=== PATIENT | female | born 1960 | race Hispanic/Latino ===

== ENCOUNTER 2016-08-20 15:08 | Inpatient (IN) | payer MEDICAID ==
[2016-08-20 15:16] VITALS: BMI 23.3
[2016-08-20] MEDS: Albuterol-Ipratrop 3 mg / 0.5 (3 ml) UD IH SCH ×3 (16:03→16:45)
--- NOTE | 2016-08-20 16:07 | ED PDOC ---
Arrival/HPI - General Chief Complaint: Abdominal Pain Time Seen by Provider: 08/20/16 15:24 Historian: Patient, Family - History of Present Illness Narrative History of Present Illness (Text): 08/20/16 16:04 55 yo female, h/o DM, Asthma/COPD, Breast CA (last chemo 4 months ago, refuses chemo) presents to the ED c/o cough with shortness of breathe, vomiting, diarrhea and abdominal pain x 5 days. Shortness of breathe with wheezing. Tactile fever. She's been vomiting 5-6 times daily; nonbloody, nonbilious. Diarrhea 2 times daily. Abdominal pain is diffuse but more upper. It feels bloating and crampy. +nasal congestion. +seasonal allergies. She feels weak. No recent travel or sick contacts. PMD: Dr. Sosa Oncologist: Doesn't know name 08/20/16 16:07 Past Medical History - Provider Review Nursing Documentation Reviewed: Yes - Infectious Disease Hx of Infectious Diseases: None - Tetanus Immunization Tetanus Immunization: Unknown - Cardiac Hx Cardiac Disorders: Yes Hx Hypertension: Yes - Pulmonary Hx Respiratory Disorders: Yes Hx Chronic Obstructive Pulmonary Disease (COPD): Yes - Neurological Hx Neurological Disorder: No - HEENT Hx HEENT Disorder: No - Renal Hx Renal Disorder: No (HYDRONEPHROSIS) - Endocrine/Metabolic Hx Endocrine Disorders: Yes Hx Diabetes Mellitus Type 2: Yes - Hematological/Oncological Hx Blood Disorders: Yes Hx Cancer: Yes (breast cancer) Hx Chemotherapy: Yes - Integumentary Hx Dermatological Disorder: No - Musculoskeletal/Rheumatological Hx Musculoskeletal Disorders: Yes Hx Arthritis: Yes - Gastrointestinal Hx Gastrointestinal Disorders: Yes Hx Gastroesophageal Reflux: Yes - Genitourinary/Gynecological Hx Genitourinary Disorders: Yes (PELVIC MASS) Hx Urinary Tract Infection: Yes - Psychiatric Hx Psychophysiologic Disorder: Yes Hx Anxiety: Yes Hx Substance Use: No - Past Surgical History Past Surgical History: Non-Contributing - Surgical History Hx Section: Yes - Anesthesia Hx Anesthesia Reactions: No Hx Malignant Hyperthermia: No - Suicidal Assessment Feels Threatened In Home Enviroment: No Family/Social History - Physician Review Nursing Documentation Reviewed: Yes Family/Social History: No Known Family HX Smoking Status: Heavy Smoker > 10 Cigarettes Daily Hx Alcohol Use: No Hx Substance Use: No Hx Substance Use Treatment: No Allergies/Home Meds Allergies/Adverse Reactions: Allergies levofloxacin [From Levaquin] Allergy (Verified 08/20/16 15:16) SHORTNESS OF BREATH;PARANOID nystatin Allergy (Verified 08/20/16 15:16) SWELLING Home Medications: Home Meds Medication Instructions Recorded Confirmed Montelukast [Singulair] 10 mg PO DAILY 04/16/12 10/30/15 Omeprazole 40 mg PO DAILY 09/17/15 10/30/15 Review of Systems - Physician Review All systems were reviewed & negative as marked: Yes - Review of Systems Constitutional: Fatigue Eyes: Normal ENT: Normal Respiratory: SOB, Cough, Sputum, Wheezing Cardiovascular: Normal Gastrointestinal: Abdominal Pain, Diarrhea, Nausea, Vomiting Genitourinary Female: Normal Musculoskeletal: Normal Skin: Normal Neurological: Normal Endocrine: Normal Hemo/Lymphatic: Normal Psychiatric: Normal Physical Exam Vital Signs Reviewed: Yes Vital Signs Temp Pulse Resp BP Pulse Ox 08/20/16 17:28 99 H 19 125/64 96 08/20/16 15:21 98.9 F 100 H 18 164/119 H 91 L Temperature: Afebrile Blood Pressure: Hypertensive Pulse: Tachycardic Respiratory Rate: Tachypneic Appearance: Positive for: Non-Toxic, Comfortable, Ill-Appearing Pain Distress: None Mental Status: Positive for: Alert and Oriented X 3 - Systems Exam Head: Present: Atraumatic, Normocephalic Pupils: Present: PERRL Extroacular Muscles: Present: EOMI Conjunctiva: Present: Normal Mouth: Present: Dry Pharnyx: Present: Normal. No: ERYTHEMA, EXUDATE Nose (Internal): Present: Normal Inspection Neck: Present: Normal Range of Motion Respiratory/Chest: Present: Good Air Exchange, Wheezes, Rhonchi (L>R). No: Respiratory Distress, Accessory Muscle Use Cardiovascular: Present: Normal S1, S2, Tachycardic. No: Murmurs Abdomen: Present: Normal Bowel Sounds. No: Tenderness, Distention, Peritoneal Signs Back: Present: Normal Inspection Upper Extremity: Present: Normal Inspection, Normal ROM, NORMAL PULSES, Neurovascularly Intact. No: Cyanosis, Edema Lower Extremity: Present: Normal Inspection, NORMAL PULSES, Normal ROM, Neurovascularly Intact. No: Edema, Swelling Neurological: Present: GCS=15, CN II-XII Intact, Speech Normal Skin: Present: Warm, Dry, Normal Color. No: Rashes Psychiatric: Present: Alert, Oriented x 3, Normal Insight, Normal Concentration Medical Decision Making ED Course and Treatment: 08/20/16 16:11 55 yo female with h/o COPD/Asthma, DM, Breast CA with SOB, cough, abdominal pain , n/v/d DDx: COPD exaceration r/o PNA, Abdominal pain r/o obstruction r/o gastroenteritis -- Labs -- CXR, EKG -- Solumedrol, Duonebs -- Pepcid IV -- IVF -- Abd/pelv with po/iv r/o mass/obstruction 08/20/16 16:13 Patient is anxious and really needs a nicotine patch. Ordered Xanax and a patch. 08/20/16 18:47 Case was discussed with Dr. Sosa who agrees with plan for admission. CXR shows right pleural effusion no change from previous CXR. CT abd pelv complete. Pending CT results and Urinalysis results. Signed out to Dr. Blankenship to f/u CT. - Lab Interpretations Lab Results: 08/20/16 15:40 08/20/16 15:40 Lab Results 08/20/16 15:40: Sodium 141, Chloride 96 L, Potassium 3.4 L, Carbon Dioxide 31, Anion Gap 17, BUN 56 H, Creatinine 1.7 H, Est GFR ( Amer) 38, Est GFR ( Non-Af Amer) 31, Random Glucose 166 H, Calcium 9.6, Total Bilirubin 0.6, AST 16 , ALT 23, Alkaline Phosphatase 99, Lactate Dehydrogenase 349, Total Creatine Kinase 40, Troponin I < 0.01, NT-Pro-B Natriuret Pep 779 H, Total Protein 8.0, Albumin 4.5, Globulin 3.5, Albumin/Globulin Ratio 1.3 08/20/16 15:40: PT 12.4 H, INR 1.15 H, APTT 29.1 08/20/16 15:40: WBC 21.7 H D, RBC 5.11, Hgb 15.6, Hct 44.9, MCV 87.9, MCH 30.5, MCHC 34.7, RDW 14.6 H, Plt Count 324, MPV 10.9, Neutrophils % (Manual) 79 H, Band Neutrophils % 4 H, Lymphocytes % (Manual) 12 L, Atypical Lymphs % 1 H, Monocytes % (Manual) 4 08/20/16 15:34: pO2 49, VBG pH 7.42, VBG pCO2 54.0, VBG HCO3 35.0 H, VBG Total CO2 36.7 H, VBG O2 Sat (Calc) 88.4 H, VBG Base Excess 8.7 H, VBG Potassium 3.6, Sodium 141.0, Chloride 98.0, Glucose 171 H, Lactate 1.1, FiO2 21.0, Venous Blood Potassium 3.6 I have reviewed the lab results: Yes Interpretation: Abnormal lab values (WBC elevated) - RAD Interpretation Radiology Orders: 08/20/16 15:34 CHEST PORTABLE [RAD] Stat 08/20/16 15:35 ABD & PELVIS W/O PO OR IV CONT [CT] Stat Sweet Dough Mixer: ED Physician - EKG Interpretation Interpreted by ED Physician: Yes (NSR at 98 bpm with IRBBB, no ST elevations) Type: 12 lead EKG - Medication Orders Current Medication Orders: Sodium Chloride (Sodium Chloride 0.9%) 1,000 mls @ 100 mls/hr IV .Q10H LUCIANO Last Admin: 08/20/16 16:18 Dose: 100 mls/hr Discontinued Medications Albuterol/Ipratropium (Duoneb 3 Mg/0.5 Mg (3 Ml) Ud) 3 ml IH Q15M LUCIANO Stop: 08/20/16 16:16 Last Admin: 08/20/16 16:45 Dose: 3 ml Alprazolam (Xanax) 0.5 mg PO STAT STA PRN Reason: Protocol Stop: 08/20/16 16:08 Last Admin: 08/20/16 16:18 Dose: 0.5 mg Famotidine (Pepcid 20mg/50ml Premix) 20 mg in 50 mls @ 100 mls/hr IVPB STAT STA Stop: 08/20/16 16:41 Last Admin: 08/20/16 16:21 Dose: 100 mls/hr Vancomycin HCl (Vancomycin 1gm) 1 gm in 250 mls @ 167 mls/hr IVPB STAT STA PRN Reason: Protocol Stop: 08/20/16 18:08 Last Admin: 08/20/16 17:15 Dose: 167 mls/hr Piperacillin Sod/Tazobactam Sod (Zosyn 4.5 Gm In Ns 100ml) 4.5 gm in 100 mls @ 200 mls/hr IVPB STAT STA PRN Reason: Protocol Stop: 08/20/16 17:08 Last Admin: 08/20/16 16:48 Dose: 200 mls/hr Methylprednisolone (Solu-Medrol) 125 mg IVP STAT STA Stop: 08/20/16 15:35 Last Admin: 08/20/16 16:03 Dose: 125 mg Nicotine (Nicoderm Cq) 1 patch TD STAT STA Stop: 08/20/16 16:07 Last Admin: 08/20/16 16:20 Dose: 1 patch Ondansetron HCl (Zofran Inj) Confirm Administered Dose 4 mg .ROUTE .STK-MED ONE Stop: 08/20/16 16:28 Last Admin: 08/20/16 16:36 Dose: Ondansetron HCl (Zofran Inj) 4 mg IVP STAT STA Stop: 08/20/16 16:32 Last Admin: 08/20/16 16:35 Dose: 4 mg Potassium Chloride (K-Dur 20 Meq Er Tab) 40 meq PO STAT STA Stop: 08/20/16 16:41 Last Admin: 08/20/16 16:48 Dose: 20 meq Comments: pt only could swallow one pill. Potassium Chloride (Potassium Chloride Oral Soln) 20 meq PO STAT STA Stop: 08/20/16 17:06 Last Admin: 08/20/16 17:16 Dose: 20 meq Disposition/Present on Arrival - Present on Arrival Any Indicators Present on Arrival: No History of DVT/PE: No History of Uncontrolled Diabetes: No Urinary Catheter: No History of Decub. Ulcer: No History Surgical Site Infection Following: None - Disposition Have Diagnosis and Disposition been Completed?: Yes Diagnosis: COPD (chronic obstructive pulmonary disease), Sepsis Disposition: HOSPITALIZED Disposition Time: 18:02 Patient Plan: Admission Patient Problems: Current Active Problems Problem Status Onset COPD (chronic obstructive pulmonary disease) Acute Sepsis Acute Condition: FAIR
[2016-08-20] MEDS ORDERED: Famotidine 20mg/50ml 20 MG/50 ML BAG IVPB STA (16:12)
[2016-08-20] MEDS ORDERED: Sodium Chloride 0.9% 1,000 ML IV SCH (16:15)
[2016-08-20 16:19] LABS: HEMATOCRIT 44.9 % (36.0-48.0); MEAN CELL VOLUME 87.9 fL (80.0-105.0); MEAN CORPUSCULAR HEMOGLOBIN 30.5 pg (25.0-35.0); MEAN CORPUSCULAR HGB CONC 34.7 g/dl (31.0-37.0); MEAN PLATELET VOLUME 10.9 fl (7.0-11.0); PLATELET COUNT 324 10^3/uL (120.0-450.0); RED CELL DISTRIBUTION WIDTH 14.6 % (11.5-14.5); WHITE BLOOD COUNT 21.7 10^3/ul (4.5-11.0)
[2016-08-20 16:23] LABS: ADD MANUAL DIFF? YES
[2016-08-20 16:26] LABS: VENOUS BLOOD GAS BASE EXCESS 8.7 mmol/L (0.0-2.0); VENOUS BLOOD PH 7.42 (7.32-7.43)
[2016-08-20 16:29] LABS: ALB/GLOB RATIO 1.3 (1.1-1.8); ALKALINE PHOSPHATASE 99 U/L (38-133); ALT/SGPT 23 U/L (7-56); AST/SGOT 16 U/L (15-39); BILIRUBIN,TOTAL 0.6 mg/dL (0.2-1.3); BLOOD UREA NITROGEN 56 mg/dL (7-21); CALCIUM 9.6 mg/dL (8.4-10.5); CARBON DIOXIDE 31 mmol/L (21-33); CHLORIDE 96 mmol/L (98-107); GFR AFRICAN-AMERICAN 38; GLUCOSE,RANDOM 166 mg/dL (70-110); POTASSIUM 3.4 mmol/L (3.6-5.0); SODIUM 141 mmol/L (132-148)
[2016-08-20 16:36] LABS: INR 1.15 (0.93-1.08); PARTIAL THROMBOPLASTIN TIME 29.1 Seconds (23.7-30.8)
[2016-08-20] MEDS ORDERED: Vancomycin 1gm in NS 250ml 1 GM/250 ML BAG IVPB STA (16:39)
[2016-08-20] MEDS ORDERED: Piperacill/Tazo 4.5gm in NS 4.5 GM/100 ML BAG IVPB STA (16:39)
[2016-08-20 16:40] LABS: TROPONIN I < 0.01 ng/mL
[2016-08-20] MEDS: Potassium Chloride 20 mEq ER Tab PO STA (16:48)
[2016-08-20 16:59] LABS: ATYPICAL LYMPHOCYTE 1 % (0.0-0.0); BAND 4 % (0-2); NEUTROPHIL 79 % (50.0-70.0)
[2016-08-20] MEDS ORDERED: Potassium Chloride 20 mEq/15 ml LIQ UD PO STA (17:05)
[2016-08-20 18:58] LABS: URINE BILIRUBIN NEGATIVE (NEGATIVE); URINE BLOOD LARGE (NEGATIVE); URINE GLUCOSE (UA) NEGATIVE (NEGATIVE); URINE KETONE NEGATIVE (NEGATIVE); URINE LEUKOCYTE ESTERASE SMALL Leu/uL (NEGATIVE); URINE PROTEIN 100 mg/dL (<30 mg/dL); URINE UROBILINOGEN 0.2 E.U./dL (<1 E.U./dL)
[2016-08-20 19:06] LABS: URINE APPEARANCE SL CLOUDY (CLEAR); URINE COLOR YELLOW (YELLOW)
[2016-08-20] MEDS ORDERED: Albuterol-Ipratrop 3 mg / 0.5 (3 ml) UD IH PRN (19:07)
--- NOTE | 2016-08-20 19:11 | ED PDOC ---
Physical Exam Vital Signs Temp Pulse Resp BP Pulse Ox 08/20/16 17:28 99 H 19 125/64 96 08/20/16 15:21 98.9 F 100 H 18 164/119 H 91 L Medical Decision Making ED Course and Treatment: 08/20/16 19:00 Case endorsed to me by Dr. Montesinos to follow up CT read. 55 year old female presented for cough with shortness of breath, vomiting, diarrhea and abdominal pain x 5 days. Patient was accepted for admission. EXAM: CT Abdomen and Pelvis Without Intravenous Contrast CLINICAL HISTORY: 55 years old, female; Pain; Abdominal pain; Additional info: Abd pain R/O mass R /O obstruction FINDINGS: Lower thorax: There are no prior studies for comparison. There is right-sided volume loss. There is shift of cardiomediastinal structures to the right. There is right pleural thickening/effusion. There is scarring at the right base. There is partial right lower lobe atelectasis difficult to evaluate. Lingula and left lower lobe are hyperinflated. There is minimal atelectasis and scarring at the left base. There is no left effusion. There is a moderately large hiatal hernia. ABDOMEN: Liver: The liver is enlarged. Gallbladder and bile ducts: Gallbladder is distended. There are multiple small gallstones. There may be sludge in the gallbladder. Common bile duct is unremarkable. Pancreas: unremarkable Spleen: unremarkable Adrenals: There is nodular thickening of the left adrenal. There is a small right adrenal nodule. Kidneys and ureters: There are bilateral renal cysts. There are small bilateral extrarenal pelves. There is mild bilateral ureterectasis. Stomach and bowel: Stomach is incompletely distended which accentuates the gastric wall.Bowel rotation is normal. There are focally distended small bowel loops in the left abdomen and pelvis. There is no obstruction. Terminal ileum is unremarkable. Appendix is unremarkable.Colon is incompletely distended which limits evaluation.There is diverticulosis. Appendix: See stomach and bowel PELVIS: Bladder: Bladder is incompletely distended. There is bladder wall thickening. There is perivesical inflammation and scarring, unchanged. Reproductive: Uterus and adnexal structures are unremarkable. ABDOMEN and PELVIS: Intraperitoneal space: There is no significant fluid.There is no free air. Bones/joints: There degenerative changes in the spine. There is an old compression fracture at L4. Soft tissues: Postsurgical changes of hernia repair in the abdominal wall. There is mesh. There is rectus diastases. Vasculature: There are calcified phleboliths. There are vascular calcifications. Lymph nodes: There are mildly enlarged para-aortic nodes. IMPRESSION: Chronic right pleural effusion with atelectatic changes and volume loss at the right base; chronic mediastinal shift to the right; continued hepatomegaly; gallstones; renal cysts; continued palpable ureterectasis; asymmetric bladder wall thickening perivesical inflammation/scarring, unchanged ; hiatal hernia; no bowel obstruction Dictated and Authenticated by: Marimar Fontenot MD 08/20/2016 7:12 PM Eastern Time ([place] & [place]) - Lab Interpretations Lab Results: 08/20/16 15:40 08/20/16 15:40 Lab Results 08/20/16 15:40: Sodium 141, Chloride 96 L, Potassium 3.4 L, Carbon Dioxide 31, Anion Gap 17, BUN 56 H, Creatinine 1.7 H, Est GFR ( Amer) 38, Est GFR ( Non-Af Amer) 31, Random Glucose 166 H, Calcium 9.6, Total Bilirubin 0.6, AST 16 , ALT 23, Alkaline Phosphatase 99, Lactate Dehydrogenase 349, Total Creatine Kinase 40, Troponin I < 0.01, NT-Pro-B Natriuret Pep 779 H, Total Protein 8.0, Albumin 4.5, Globulin 3.5, Albumin/Globulin Ratio 1.3 08/20/16 15:40: PT 12.4 H, INR 1.15 H, APTT 29.1 08/20/16 15:40: WBC 21.7 H D, RBC 5.11, Hgb 15.6, Hct 44.9, MCV 87.9, MCH 30.5, MCHC 34.7, RDW 14.6 H, Plt Count 324, MPV 10.9, Neutrophils % (Manual) 79 H, Band Neutrophils % 4 H, Lymphocytes % (Manual) 12 L, Atypical Lymphs % 1 H, Monocytes % (Manual) 4 08/20/16 15:34: pO2 49, VBG pH 7.42, VBG pCO2 54.0, VBG HCO3 35.0 H, VBG Total CO2 36.7 H, VBG O2 Sat (Calc) 88.4 H, VBG Base Excess 8.7 H, VBG Potassium 3.6, Sodium 141.0, Chloride 98.0, Glucose 171 H, Lactate 1.1, FiO2 21.0, Venous Blood Potassium 3.6 - RAD Interpretation Radiology Orders: 08/20/16 15:34 CHEST PORTABLE [RAD] Stat 08/20/16 15:35 ABD & PELVIS W/O PO OR IV CONT [CT] Stat - Medication Orders Current Medication Orders: Acetaminophen (Tylenol 325mg Tab) 650 mg PO Q4 PRN PRN Reason: Fever >100.4 F Albuterol/Ipratropium (Duoneb 3 Mg/0.5 Mg (3 Ml) Ud) 3 ml IH Q3H PRN PRN Reason: wheeze Stop: 08/21/16 01:16 Sodium Chloride (Sodium Chloride 0.9%) 1,000 mls @ 100 mls/hr IV .Q10H LUCIANO Last Admin: 08/20/16 16:18 Dose: 100 mls/hr Ondansetron HCl (Zofran Inj) 4 mg IVP STAT PRN PRN Reason: nausea Discontinued Medications Albuterol/Ipratropium (Duoneb 3 Mg/0.5 Mg (3 Ml) Ud) 3 ml IH Q15M LUCIANO Stop: 08/20/16 16:16 Last Admin: 08/20/16 16:45 Dose: 3 ml Alprazolam (Xanax) 0.5 mg PO STAT STA PRN Reason: Protocol Stop: 08/20/16 16:08 Last Admin: 08/20/16 16:18 Dose: 0.5 mg Famotidine (Pepcid 20mg/50ml Premix) 20 mg in 50 mls @ 100 mls/hr IVPB STAT STA Stop: 08/20/16 16:41 Last Admin: 08/20/16 16:21 Dose: 100 mls/hr Vancomycin HCl (Vancomycin 1gm) 1 gm in 250 mls @ 167 mls/hr IVPB STAT STA PRN Reason: Protocol Stop: 08/20/16 18:08 Last Admin: 08/20/16 17:15 Dose: 167 mls/hr Piperacillin Sod/Tazobactam Sod (Zosyn 4.5 Gm In Ns 100ml) 4.5 gm in 100 mls @ 200 mls/hr IVPB STAT STA PRN Reason: Protocol Stop: 08/20/16 17:08 Last Admin: 08/20/16 16:48 Dose: 200 mls/hr Methylprednisolone (Solu-Medrol) 125 mg IVP STAT STA Stop: 08/20/16 15:35 Last Admin: 08/20/16 16:03 Dose: 125 mg Nicotine (Nicoderm Cq) 1 patch TD STAT STA Stop: 08/20/16 16:07 Last Admin: 08/20/16 16:20 Dose: 1 patch Ondansetron HCl (Zofran Inj) Confirm Administered Dose 4 mg .ROUTE .STK-MED ONE Stop: 08/20/16 16:28 Last Admin: 08/20/16 16:36 Dose: Ondansetron HCl (Zofran Inj) 4 mg IVP STAT STA Stop: 08/20/16 16:32 Last Admin: 08/20/16 16:35 Dose: 4 mg Potassium Chloride (K-Dur 20 Meq Er Tab) 40 meq PO STAT STA Stop: 08/20/16 16:41 Last Admin: 08/20/16 16:48 Dose: 20 meq Comments: pt only could swallow one pill. Potassium Chloride (Potassium Chloride Oral Soln) 20 meq PO STAT STA Stop: 08/20/16 17:06 Last Admin: 08/20/16 17:16 Dose: 20 meq Disposition/Present on Arrival - Present on Arrival Any Indicators Present on Arrival: No History of DVT/PE: No History of Uncontrolled Diabetes: No Urinary Catheter: No History of Decub. Ulcer: No History Surgical Site Infection Following: None - Disposition Have Diagnosis and Disposition been Completed?: Yes Diagnosis: COPD (chronic obstructive pulmonary disease), Sepsis, UTI (urinary tract infection) Disposition: HOSPITALIZED Disposition Time: 07:05 Patient Problems: Current Active Problems Problem Status Onset COPD (chronic obstructive pulmonary disease) Acute Sepsis Acute Condition: FAIR
--- NOTE | 2016-08-20 19:12 | CT ---
EXAM: CT Abdomen and Pelvis Without Intravenous Contrast CLINICAL HISTORY: 55 years old, female; Pain; Abdominal pain; Additional info: Abd pain R/O mass R/O obstruction TECHNIQUE: Axial computed tomography images of the abdomen and pelvis without intravenous contrast. This CT exam was performed using one or more of the following dose reduction techniques: automated exposure control, adjustment of the mA and/or kV according to patient size, and/or use of iterative reconstruction technique. Coronal and sagittal reformatted images were created and reviewed. EXAM DATE/TIME: 08/20/2016 3:35 PM COMPARISON: CT - CHEST,ABDOMEN,PELVIS W/O CONT 06/24/2015 7:13:31 PM FINDINGS: Lower thorax: There are no prior studies for comparison. There is right-sided volume loss. There is shift of cardiomediastinal structures to the right. There is right pleural thickening/effusion. There is scarring at the right base. There is partial right lower lobe atelectasis difficult to evaluate. Lingula and left lower lobe are hyperinflated. There is minimal atelectasis and scarring at the left base. There is no left effusion. There is a moderately large hiatal hernia. ABDOMEN: Liver: The liver is enlarged. Gallbladder and bile ducts: Gallbladder is distended. There are multiple small gallstones. There may be sludge in the gallbladder. Common bile duct is unremarkable. Pancreas: unremarkable Spleen: unremarkable Adrenals: There is nodular thickening of the left adrenal. There is a small right adrenal nodule. Kidneys and ureters: There are bilateral renal cysts. There are small bilateral extrarenal pelves. There is mild bilateral ureterectasis. Stomach and bowel: Stomach is incompletely distended which accentuates the gastric wall.Bowel rotation is normal. There are focally distended small bowel loops in the left abdomen and pelvis. There is no obstruction. Terminal ileum is unremarkable. Appendix is unremarkable.Colon is incompletely distended which limits evaluation.There is diverticulosis. Appendix: See stomach and bowel PELVIS: Bladder: Bladder is incompletely distended. There is bladder wall thickening. There is perivesical inflammation and scarring, unchanged. Reproductive: Uterus and adnexal structures are unremarkable. ABDOMEN and PELVIS: Intraperitoneal space: There is no significant fluid.There is no free air. Bones/joints: There degenerative changes in the spine. There is an old compression fracture at L4. Soft tissues: Postsurgical changes of hernia repair in the abdominal wall. There is mesh. There is rectus diastases. Vasculature: There are calcified phleboliths. There are vascular calcifications. Lymph nodes: There are mildly enlarged para-aortic nodes. IMPRESSION: Chronic right pleural effusion with atelectatic changes and volume loss at the right base; chronic mediastinal shift to the right; continued hepatomegaly; gallstones; renal cysts; continued palpable ureterectasis; asymmetric bladder wall thickening perivesical inflammation/scarring, unchanged; hiatal hernia; no bowel obstruction Additional findings as described above.
[2016-08-20 19:18] LABS: URINE RBC 15 - 20 /hpf (0-2); URINE WBC TNTC /hpf (0-6)
[2016-08-20 19:19] LABS: URINE BACTERIA MANY (NEG)
[2016-08-20] MEDS ORDERED: Pneumococcal 23-Valent Vaccine IM ONE (22:32)
[2016-08-20] MEDS: Insulin Detemir 100 units/ml Vial (Levemir) SC SCH (22:54)
[2016-08-20] MEDS: Levalbuterol 1.25 MG/3 ML Inhal Soln UD IH SCH (23:20)
[2016-08-21] MEDS: Levalbuterol 1.25 MG/3 ML Inhal Soln UD IH SCH ×4 (07:37→20:33)
[2016-08-21] MEDS: Budesonide 0.5 mg/2 ml Inhal Susp UD IH SCH ×2 (07:37→20:32)
[2016-08-21] MEDS: Arformoterol 15 mcg/2 ml Inh Sol IH SCH ×2 (07:37→20:32)
[2016-08-21] MEDS ORDERED: Arformoterol 15 mcg/2 ml Inh Sol IH SCH (08:00)
--- NOTE | 2016-08-21 08:01 | RAD ---
PROCEDURE: CHEST RADIOGRAPH, 1 VIEW HISTORY: cough r/o pna COMPARISON: None available. FINDINGS: LUNGS: Right lower lobe triangular density possibly representing effusion and/or atelectasis. PLEURA: No pneumothorax or pleural fluid seen. CARDIOVASCULAR: Normal. OSSEOUS STRUCTURES: No significant abnormalities. VISUALIZED UPPER ABDOMEN: Normal. OTHER FINDINGS: Right CVP line tip overlying the SVC. IMPRESSION: As above.
[2016-08-21] MEDS: Insulin Reg-LOW-Coverage SC SCH ×3 (08:40→16:56)
[2016-08-21] MEDS: Sodium Chloride 0.45% 1,000 ML IV SCH ×2 (08:45→21:35)
[2016-08-21] MEDS: Insulin Regular 1 UNITS/0.01 ML ML SC SCH ×3 (10:08→16:56)
[2016-08-21] MEDS: Insulin Detemir 100 units/ml Vial (Levemir) SC SCH ×2 (10:17→17:52)
[2016-08-21] MEDS: Enoxaparin 40 mg Syringe SC SCH (10:18)
[2016-08-21] MEDS: cefTRIAXone 1 gm 1 GM/100 ML BAG IVPB SCH (10:21)
[2016-08-21 10:40] LABS: MEAN CELL VOLUME 89.3 fL (80.0-105.0); MEAN CORPUSCULAR HEMOGLOBIN 29.6 pg (25.0-35.0); MEAN CORPUSCULAR HGB CONC 33.2 g/dl (31.0-37.0); MEAN PLATELET VOLUME 10.9 fl (7.0-11.0); RED CELL DISTRIBUTION WIDTH 14.8 % (11.5-14.5); WHITE BLOOD COUNT 16.8 10^3/ul (4.5-11.0)
[2016-08-21 10:44] LABS: HEMATOCRIT 39.2 % (36.0-48.0)
[2016-08-21 10:47] LABS: CALCIUM 8.6 mg/dL (8.4-10.5); POTASSIUM 3.7 mmol/L (3.6-5.0)
[2016-08-21] MEDS: Azithromycin 500MG/NS 250ml 500 MG/250 ML BAG IVPB SCH (11:28)
[2016-08-21] MEDS: Oxycodone/Acetaminophen 5/325 mg Tab PO PRN ×2 (11:30→17:51)
--- NOTE | 2016-08-21 18:54 | CARD ---
APPROVED REPORT EKG Measurement Heart [id number] <Conclusion> Normal sinus rhythm Incomplete right bundle branch block Septal infarct, age undetermined Abnormal ECG
--- NOTE | 2016-08-21 19:10 | CON ---
DATE: 08/21/2016 REFERRING PHYSICIAN: Dr. Sosa. REASON FOR CONSULT: Chronic lung disease, cough and shortness of breath. HISTORY OF PRESENT ILLNESS: This is a 55-year-old female with past medical history significant for c hronic obstructive lung disease, history of breast cancer, been on chemotherapy. She partially compl eted chemotherapy. Also diabetes, history of recurrent UTIs, comes into ER with cough, shortness of breath, wheezing, fever, been vomiting for the last few days. Loose bowel movement. Also has rhinit is and postnasal drip. Was admitted for further workup. Presently lying in the bed. Has cough and shortness of breath. No fever, no chills, no vomiting at present. No dysuria. No leg pain or leg s welling. PAST MEDICAL HISTORY: Chronic obstructive lung disease, diabetes, breast cancer, completed partial c hemotherapy, history of recurrent UTIs. Also history of gastroparesis, history of pelvic mass, anxie ty disorder. ALLERGIES: LEVAQUIN AND NYSTATIN. FAMILY HISTORY: No significant cardiopulmonary disease reported. SOCIAL HISTORY: She is a daily smoker. Denies any alcohol use. MEDICATIONS: She is on Brovana 15 mcg inhaled twice a day, insulin coverage, Levemir 12 units subQ t wice a day, Lovenox 40 mg daily, NicoDerm patch daily, Pepcid 20 mg daily, Percocet 5/325 one tab q. 6 hours p.r.n., Protonix 40 mg daily, Pulmicort inhaled twice a day, Rocephin 1 gram IV daily, Singul air 10 mg at bedtime, IV fluid half normal saline 75 mL per hour, Tylenol p.r.n., Xanax 0.5 mg q.i.d. p.r.n., Xopenex inhaled q.i.d., Zithromax 500 mg daily, Zofran on a p.r.n. basis. REVIEW OF SYSTEMS: No headache. Does have rhinitis, cough, shortness of breath. No chest pain. So me nausea, vomiting, abdominal discomfort. No dysuria. No leg pain or leg swelling. PHYSICAL EXAMINATION: GENERAL: Lying in the bed, no acute distress. VITAL SIGNS: Temp is 99, heart rate is 94, respiratory rate is 20, blood pressure 138/70, pulse ox _ ____% on room air. HEENT: Moist mucous membranes. Crowded airway. Mallampati score is 4. NECK: Supple. No JVD. LUNGS: Fair air flow, some rhonchi and wheezing. HEART: S1 and S2. ABDOMEN: Soft, nontender. No organomegaly. EXTREMITIES: There is no edema. NEUROLOGIC: Sleepy, arousable, follows simple commands. LABORATORY DATA: Shows hemoglobin 13.0, hematocrit is 39.2, WBC 16.8, platelet count is 270. INR 1. 15 and PTT 29. Had VBG done, shows pH 7.42, pCO2 of 54, O2 is 49. Laboratory data shows sodium 139, potassium 3.7, chloride 101, bicarbonate 29, BUN 52, creatinine 1.8, glucose 122, calcium is 8.6. U rinalysis shows WBCs too numerous to count, RBCs 15-20. Blood cultures have been negative. Urine cul tures, so far there is no growth. CAT scan of the abdomen and pelvis done in the ER shows chronic ri ght pleural effusion with atelectasis, volume loss on the right base, chronic mediastinal shift on th e right. Also hepatomegaly, gallstone, renal cyst. Also has ureterectasis, bladder wall thickening. Had a PET study done in 2016, shows upper outer quadrant of the left breast mass. Also showed some inflammatory changes in the lung with scarring in the upper and middle lobe. IMPRESSION AND PLAN: Chronic obstructive lung disease, history of gastroesophageal reflux disease, a nxiety disorder, hypertension, diabetes, nicotine dependence, left breast cancer, did not complete ch emotherapy. May have a component of sleep apnea syndrome. Agree with the present management to star t IV antibiotics, bronchodilators, IV steroids. Gastric prophylaxis, deep venous thrombosis prophyla xis. Urology followup. The patient was asked to stop smoking. Will follow with you. Lisa Rucker MD cc: [id number] TT: 08/21/2016 19:09:12 Confirmation # [id number] Dictation # [id number] brandt
--- NOTE | 2016-08-21 19:25 | CT ---
EXAM: CT Neck Without Intravenous Contrast CLINICAL HISTORY: 55 years old, female; Signs and symptoms; Shortness of breath; Dysphagia / difficulty swallowing TECHNIQUE: Axial computed tomography images of the neck without intravenous contrast. This CT exam was performed using one or more of the following dose reduction techniques: automated exposure control, adjustment of the mA and/or kV according to patient size, and/or use of iterative reconstruction technique. Coronal and sagittal reformatted images were created and reviewed. EXAM DATE/TIME: 08/21/2016 4:29 PM COMPARISON: Prior CT chest of 06/24/2015 7:13:31 PM FINDINGS: NASOPHARYNX: No acute abnormality of the adenoidal/nasopharyngeal tonsils identified. OROPHARYNX: No acute abnormality of the palatine tonsils identified. No acute abnormality of the tongue base identified. HYPOPHARYNX: No acute abnormality of the vallecula or puriform sinuses identified. LARYNX: Small, round collections of air are seen in the larynx on the left, which could represent small laryngoceles. No acute abnormality of the vocal cords identified. No acute abnormality of the epiglottis identified. TRACHEA: Visualized portions of the trachea appear patent. RETROPHARYNGEAL SPACE: No evidence of prevertebral/retropharyngeal fluid or fluid collection. SUBMANDIBULAR/PAROTID GLANDS: No acute abnormality of the submandibular or parotid glands identified. THYROID: No acute abnormality of the thyroid gland identified. BONES/JOINTS: Round 1 cm lytic lesion in the body of C2 on the left, which has well-defined, sclerotic margins. No associated aggressive periostitis. This is most most likely a vertebral hemangioma or other clinically insignificant entity. There is no evidence of diffuse bony lytic lesions. Recommend clinical correlation. SOFT TISSUES: No findings to suggest significant cellulitis of the soft tissues. No evidence of focal soft tissue fluid collection/abscess, allowing for unenhanced technique.. VASCULATURE: Scattered vascular calcifications. LYMPH NODES: No evidence of diffuse lymphadenopathy. TUBES, LINES AND DEVICES: Right Mediport catheter in place. IMPRESSION: - No evidence of significant acute process on this unenhanced exam. - See above for remaining findings. EXAM: CT Chest Without Intravenous Contrast CLINICAL HISTORY: 55 years old, female; Signs and symptoms; Shortness of breath; Dysphagia / difficulty swallowing TECHNIQUE: Axial computed tomography images of the chest without intravenous contrast. Coronal and sagittal reformatted images were created and reviewed. COMPARISON: No relevant prior studies available. FINDINGS: LIMITATIONS: Exam is limited by streak artifact from the patient's arms and mild motion artifact. LUNGS: Persistence of chronic-appearing dense consolidation in the right upper lung posteriorly, associated with bronchiectatic changes and scarring. Stable appearance of a 2 cm bulla or pneumatocele in the right lower lung. Stable appearance of the volume loss involving the right lung. Stable appearance of multifocal areas of scarring in the right lung. Left lung is mildly hyperinflated. No definite acute infiltrate/pneumonia. No evidence of diffuse pulmonary vascular congestion. PLEURAL SPACE: Stable appearance of a moderate-sized complex right pleural collection, extending along the right lower lung, with a subpulmonic component. This appears loculated. It has a CT attenuation of 30 Hounsfield units, higher than expected for simple fluid but mildly decreased in density compared to the prior exam. It does not contain gas. The previously seen small foci of gas in this fluid collection have resolved. No pneumothorax or significant pleural effusions seen. HEART: Heart again appears shifted to the right, unchanged. No evidence of significant pericardial effusion. MEDIASTINUM: Esophagus is mildly dilated, and is filled with fluid and air. Findings could be secondary to mild gastroesophageal reflux. Esophagus is mildly thick walled, a nonspecific finding but can be seen with mild esophagitis. No pneumomediastinum is seen to suggest an esophageal perforation. BONES/JOINTS: Bony structures appear demineralized. SOFT TISSUES: No acute abnormality of the visualized soft tissues is seen. VASCULATURE: Exam is nondiagnostic for aortic dissection and pulmonary emboli, secondary to unenhanced technique. LYMPH NODES: No evidence of diffuse lymphadenopathy. STOMACH AND BOWEL: Moderate hiatal hernia, containing the gastric fundus. TUBES, LINES AND DEVICES: Mediport catheter in place, which terminates in the superior vena cava. OTHER FINDINGS: Low density lesions in the kidneys bilaterally, most likely representing cysts. IMPRESSION: - No significant new findings seen compared to a 06/24/2015 CT. - Stable appearance of a moderate complex, loculated right pleural collection. No associated gas. - Stable appearance of chronic dense consolidation associated with bronchiectasis and scarring in the right upper lung posteriorly. - Stable appearance of volume loss involving the right lung. - Absence of change of the above findings suggests chronic postoperative and post radiation changes. Recommend clinical correlation. - Esophageal findings which could be secondary to gastroesophageal reflux and mild esophagitis, such as reflux esophagitis. - Moderate hiatal hernia. - See above for remaining findings.
[2016-08-21] MEDS: MethylPREDNISolone 40 mg Vial IVP SCH (21:13)
--- NOTE | 2016-08-21 23:09 | PN ---
DATE: 08/21/2016 HISTORY OF PRESENT ILLNESS: The patient seems comfortable on the floor. She is eating. No vomiting , no respiratory distress, seems stable. PHYSICAL EXAMINATION: VITAL SIGNS: Temperature is 98.5, heart rate is 88, blood pressure is 138/70, respirations 18, satur ating 97% on room air. HEAD AND NECK: Normal. CHEST: There are diminished breath sounds. No wheezing. CARDIAC: First and second sounds normal. ABDOMEN: Soft, nontender. EXTREMITIES: No edema. NEUROLOGIC: Normal. LABORATORY DATA: Sodium 139, potassium 3.7, chloride 101, bicarb 29, BUN 52, creatinine 1.8, blood s ugar 164, calcium 8.6. CBC noted for white count 16.8, hemoglobin is 15, hematocrit 39.2, platelets 270. The patient, also, urinalysis shows a lot of white blood cells. CT of the neck and chest noted there is not significant change, but there is atelectasis, consolidations. Could be pneumonia. IMPRESSION AND PLAN: 1. Acute gastroenteritis: Continue current medications. The patient getting IV Protonix, famotidin e, Zofran. We are going to add Reglan p.o. Seems doing better gastrointestinal-macario. Continue curr ent therapy. Tolerating diet very well. 2. Possible pneumonia, chronic obstructive pulmonary disease exacerbation: Continue Rocephin and Zi thromax. Will follow up the results of CT of the chest and neck with Dr. Rucker. 3. Urinary tract infections: Cultures still pending. We will continue. The patient does have a th ick-walled gallbladder and thick-walled urinary bladder in the past. She had biopsies. Were negativ e multiple times. We will continue IV antibiotic, Rocephin, pending culture results. 4. Diabetes: Stable. Continue Levemir plus insulin coverage. 5. Chronic obstructive pulmonary disease with acute exacerbations: Continue Brovana, Pulmicort, IV steroids, Xopenex, and inhaled bronchodilators. 6. Chronic back pain, chronic anxiety: Continue Percocet, Xanax. Continue IV fluids. Follow up cl inically. The patient seems stable otherwise. 7. Continue gastrointestinal and deep vein thrombosis prophylaxis. 8. Also, acute renal failure. Going to get Dr. Hurd to evaluate that and will follow up clinically . Sloan Sosa MD cc: [phone] TT: 08/21/2016 23:08:46 Confirmation # [id number] Dictation # [id number] dn
--- NOTE | 2016-08-21 23:40 | HP ---
MAIN REASON FOR ADMISSION: The patient came in with vomiting, diarrhea, and short of breath. HISTORY OF PRESENT ILLNESS: This 55-year-old female is well known to me with coming with breast canc er, COPD, insulin-dependent diabetes, chronic anxiety, patient noncompliance. Came into the hospital for worsening abdominal pain, vomiting, and diarrhea for the last few days. The patient also mentio abril her breathing. She is wheezing, coughing for the last few days, also. The patient came to the E R. She denied any fever, any chills. She feels weak. The patient had a Port-A-Cath put in recently . Seems okay. No redness on the site and no pain on the site. The patient denied any melena, denie d any vomiting blood. She does take her medicine and she takes all her inhalers, and she does take c hronic pain medications. HOME MEDICATIONS: Are as follows: She takes Advair, Percocet, Singulair, Reglan 10 mg before meals at night, Levemir 12 units b.i.d., vitamin D, Xanax 0.5 4 times daily, and she takes Proventil nebuli zer and inhalers. She also takes insulin, Humalog, before meals. ALLERGIES: SHE IS ALLERGIC TO NYSTATIN AND LEVAQUIN. SOCIAL HISTORY: She is a heavy smoker, 2 packs a day. No drinking, no drugs. FAMILY HISTORY: Her father of colon cancer at age 93. REVIEW OF SYSTEMS: As in the present illness; chills, coughing, wheezing, short of breath, general w eakness, burning urinations, frequent urinations. PHYSICAL EXAMINATION: GENERAL: On 08/20/2016, patient seen in the Emergency Room. She is afebrile. She is alert, awake, oriented x 3, no respiratory distress at that time. VITAL SIGNS: Temperature 98.9, heart rate 100, blood pressure 164/119, respiratory rate 18, saturati on 91% on nasal cannula 2 L. HEAD AND NECK: Normal. No JVD, no thyromegaly. CHEST: There are a few bilateral wheezes. CARDIAC: First and second sounds are normal. ABDOMEN: Soft. Tenderness in the epigastric area. EXTREMITIES: No edema. Mild ankle, but otherwise negative. NEUROLOGIC: Normal. LABORATORY DATA: Include the following: White count 21.7 , hemoglobin 15.6, hematocrit 44.9, p latelets 324. Chemistry: Sodium 141, potassium 3.4, chloride 96, bicarb 31, BUN 56, creatinine is 1 .7. Blood sugar 166. Liver function test is normal. ProBNP 779. Blood sugar 166. The patient has PT/INR 1.15, PTT 29.1. Urine shows white blood cells too numerous to count and a lot of red blood c ells, leukocytes positive, and many bacteria, and epithelial cells 6-8. RADIOLOGY: The patient also had a chest x-ray and it shows right lower lobe triangular density, poss ibly representing effusion and/or atelectasis. The patient also had a CT abdomen and pelvis and it s howed the following impression: Chronic right pleural effusion with atelectasis, volume loss at the right base, chronic mediastinal shift to the right. Continuous hepatomegaly, gallstones, renal cysts . Continued palpable ureterectasis, asymmetrical bladder wall thickening, perivascular inflammation, scarring, chronic change, hiatal hernia. No bowel obstructions. IMPRESSION AND PLAN: A 55-year-old heavy smoker with breast carcinoma with a Port-A-Cath put in. Ca me in with fever, with nausea, vomiting, abdominal pain, diarrhea, coughing, wheezing. Will admit th e patient for: 1. Abdominal pain: Etiology unclear. Could be gastroparesis. Could be gallstones related. Will g marcus the patient Zofran, IV fluid, IV Protonix, GI consult, and will follow up clinically. Repeat her CBC in the morning. Do not see an amylase/lipase. Will repeat that in the morning. 2. Chronic obstructive pulmonary disease: Will give the patient IV steroids, inhaled bronchodilator s. I will put her on Rocephin and Zithromax. Will follow up with the building maintenance custodian. Continue inhal ed bronchodilators and follow up clinically. 3. Chronic anxiety, chronic spine pain: Continue Percocet and Xanax. 4. Diabetes: Seems uncontrolled. Continue Levemir 12 units b.i.d. and continue insulin coverage. Follow up clinically. 5. Will place Nicoderm , Lovenox for deep venous thrombosis prophylaxis, Protonix for gastroint estinal prophylaxis. Continue current therapy. Sloan Sosa MD cc: [phone] TT: 08/21/2016 23:39:44 dn
[2016-08-22] MEDS: Insulin Reg-LOW-Coverage SC SCH ×5 (01:34→22:01)
[2016-08-22] MEDS: Oxycodone/Acetaminophen 5/325 mg Tab PO PRN ×3 (07:08→22:01)
[2016-08-22] MEDS: Arformoterol 15 mcg/2 ml Inh Sol IH SCH ×2 (07:18→19:40)
[2016-08-22] MEDS: Budesonide 0.5 mg/2 ml Inhal Susp UD IH SCH ×2 (07:18→19:40)
[2016-08-22] MEDS: Levalbuterol 1.25 MG/3 ML Inhal Soln UD IH SCH ×5 (07:19→19:40)
--- NOTE | 2016-08-22 07:40 | CON ---
DATE: 08/21/2016 HISTORY OF PRESENT ILLNESS: This patient was seen and evaluated earlier today. This 55-year-old pat ient with a past medical history of diabetes mellitus. This 55-year-old patient with breast cancer, locally advanced; CA of the breast, status post surgery, locally advanced with status post chemothera py partially completed. Presents with episodes of nausea, vomiting and shortness of breath. Admitte d with shortness of breath, abdominal discomfort. The patient admitted. Presented to the Emergency with shortness of breath, vomiting. She also complains of loose bowel movement. GI consultation was requested to further evaluate. The patient was tolerating the diet since admission; however, she co mplained of after lunch, she had some difficulty in swallowing, some discomfort in the neck area. OTHER PAST MEDICAL HISTORY: As above. History of recurrent DVT; anxiety; breast cancer, did not com plete the chemo ALLERGIES: TO LEVAQUIN AND NYSTATIN FAMILY HISTORY: Noncontributory. SOCIAL HISTORY: Positive for smoking and denies alcohol use. REVIEW OF SYSTEMS: Positive as above. Other systems reviewed were negative. History of shortness o f breath PHYSICAL EXAMINATION: GENERAL: The patient is lying on the bed, not in acute distress. VITAL SIGNS: Temperature is 99, blood pressure is 138/70, respiration is 94, O2 saturation 91%. HEENT: Atraumatic, anicteric. NECK: Supple. HEART: S1, S2 heard. LUNGS: Bilateral air entry present. ABDOMEN: Soft. There is no tenderness. EXTREMITIES: No edema. No cyanosis. No cyanosis. LABORATORY DATA: Hemoglobin. LABORATORY DATA: Hemoglobin 13, hematocrit 39.2, WBC 16.8, platelets 270. Chemistries: BUN 52, cre atinine 1.8. LFTs are otherwise unremarkable. The CT scan of the abdomen and pelvis done was reviewed and this 58-year-old patient with locally adv anced breast carcinoma did not complete chemotherapy, now presented with episodes of nausea, episodes of vomiting, shortness of breath and fever. The patient now complains. IMPRESSION: This is a 55-year-old patient with locally advanced breast cancer, admitted with fever, shortness of breath and also episodes of loose bowel movements. The patient now complains of some ne ck discomfort and difficulty in swallowing. WOULD RECOMMEND: 1. Changing the diet to pureed diet. 2. We will get a CT of the abdomen and pelvis with the CT of the chest and neck to further evaluate. 3. The patient's evaluation noticed. 4. We will continue to closely follow up her care and suggest further management based on the clinic al course. Gerald Coker MD cc: [id number] TT: 08/22/2016 07:39:20 Confirmation # [id number] Dictation # [id number] dn
[2016-08-22] MEDS: Insulin Regular 1 UNITS/0.01 ML ML SC SCH ×3 (08:31→17:28)
[2016-08-22] MEDS: MethylPREDNISolone 40 mg Vial IVP SCH ×2 (09:34→22:00)
[2016-08-22] MEDS: cefTRIAXone 1 gm 1 GM/100 ML BAG IVPB SCH (09:35)
[2016-08-22] MEDS: Azithromycin 500MG/NS 250ml 500 MG/250 ML BAG IVPB SCH (09:35)
[2016-08-22] MEDS: Enoxaparin 40 mg Syringe SC SCH (09:36)
[2016-08-22] MEDS: Insulin Detemir 100 units/ml Vial (Levemir) SC SCH ×2 (09:40→18:08)
[2016-08-22] MEDS: Sodium Chloride 0.45% 1,000 ML IV SCH (10:05)
--- NOTE | 2016-08-22 12:50 | PN ---
DATE: 08/22/2016 Seen and examined at the bedside. The patient is reporting to be swallowing. Her swallowing is bett er. No nausea or vomiting. She is so far tolerating the soft food. No reports of any acute overnig ht events. VITAL SIGNS: Temperature is stable. LABORATORY DATA: Only lab noted for today is POC glucose at 161. The patient is on insulin coverage . The patient had a neck and chest CT yesterday and that reported no new significant findings compar ed to the CT of 06/24/2015. Stable appearance of moderate complex loculated right pleural collection, no associated gas. Stable appearance of volume loss involving the right lung. There is absence of change of the above findings, suggests chronic postop and postradiation changes esophageal findings w hich could be secondary to GERD and mild esophagitis such as reflux esophagitis. Moderate hiatal her sonia. There is no pneumomediastinum to suggest an esophageal perforation. PHYSICAL EXAMINATION: HEENT: Sclera is anicteric. NECK: Supple. CARDIAC: S1, S2. LUNGS: Sounds are clear. ABDOMEN: With bowel sounds, soft, nontender. No rebound or guarding. EXTREMITIES: No edema. ASSESSMENT: A 55-year-old female with advanced breast cancer, came with fever and shortness of breat h and episodes of loose bowel movement. The patient complained of neck discomfort and difficulty wit h swallowing. CT of the chest and neck was done. It looks like she may have some esophagitis. Ther e is no change from the previous CT scan done in 06/2015. The right pleural collection remains stabl e. PLAN: So far, she is tolerating the soft diet. We will continue that as tolerated. If she has a pr oblem, we can change it to a pureed diet. Continue PPI. She is on IV fluids for hydration. She is also on Solu-Medrol and on ceftriaxone and Zithromax. The patient is pending ultrasound of the [facility] er and renal for elevated kidney functions. The patient was seen and case discussed with Dr. Coker. Hortencia RAO cc: [id number] TT: 08/22/2016 12:49:12 Confirmation # [id number] Dictation # [id number] sn
--- NOTE | 2016-08-22 16:44 | CON ---
DATE: 08/22/2016 REASON FOR CONSULTATION: Acute kidney injury. HISTORY OF PRESENTING ILLNESS: A 55-year-old lady previously unknown to me was admitted 08/20 with com plaints of cough, shortness of breath, nausea, vomiting. The patient denies any history of fever. S he reports that she was having a lot of nausea and vomiting. She was unable to eat. She was unable to keep down any fluids. The patient is a heavy smoker. She reports she smokes about 2-3 packs per day. In the Emergency Room, she was found to have a creatinine of 1.7. Hence, consultation is requested. Her baseline creatinine is around 1.1 to 1.2. She was also found to have severe leukocytosis with a WBC count of 22,000, 79% polys with 4% bands. PAST MEDICAL AND SURGICAL HISTORY: NIDDM, COPD, breast cancer, chronic anxiety, noncompliance, activ e smoking. FAMILY HISTORY: Colon cancer in father. SOCIAL HISTORY: Two to three packs per day for many years, no alcohol, no IV drug abuse. ALLERGIES: NYSTATIN AND LEVAQUIN. MEDICATIONS AT HOME: Had been Advair, Percocet, Singulair, Reglan, Levemir, Proventil, insulin, Manuela log. REVIEW OF SYSTEMS: All systems reviewed, pertinent positives as mentioned in the history of presenti ng illness, rest unremarkable. PHYSICAL EXAMINATION: GENERAL: Middle-aged lady sitting in bed. VITAL SIGNS: Blood pressure 98/54, heart rate 88, respiratory rate 18, temperature 98.5, T-max is 99 . HEENT: Normocephalic, atraumatic, positive pallor. NECK: Supple, no JVD. LUNGS: Bilateral equal air entry, bilateral rhonchi. CARDIAC: S1, S2, regular rate and rhythm, no murmur, no rub. ABDOMEN: Obese, distended, soft, nontender, bowel sounds present. EXTREMITIES: No lower extremity edema. INTAKE AND OUTPUT: 1640/not charted. LABORATORY DATA: WBC 16.8, hemoglobin 13, hematocrit 39, platelets 270. Sodium 139, potassium 3.7, chloride 101, CO2 of 29, BUN 52, creatinine 1.8, glucose 164, calcium 8.6. Urinalysis: Yellow, slig htly cloudy, pH 6.0, specific gravity 1.025, protein 100, blood large, leukocyte esterase small, WBCs too numerous to count. CT of the abdomen and pelvis, chronic right pleural effusion, no free fluid or air in the abdomen, co mpression fracture of L4 which is old. CT of the neck and chest, stable loculated right pleural effu audelia, stable chronic dense consolidation with bronchiectasis, GERD findings, moderate hiatal hernia. CURRENT MEDICATIONS: Brovana, insulin, Levemir, Lovenox, Pepcid, Percocet, Protonix, Rocephin 1 gram daily, Singulair, half normal saline at 75, Xanax, Xopenex, Zithromax, Zofran. ASSESSMENT AND PLAN: 1. Acute kidney injury superimposed on chronic kidney disease stage II? 2. Hypokalemia, alkalemia, suggestive of depletional state. 3. Chronic obstructive pulmonary disease/bronchiectasis/pneumonia. 4. Non-insulin dependent diabetes mellitus. 5. Active smoking. 6. Prerenal azotemia. PLAN: 1. Continue hypotonic IV fluids. 2. Add potassium 10 mEq to each bag of IV fluids. 3. Continue antibiotics, dose for creatinine clearance 30-50 mL per minute. 4. Chest physiotherapy. 5. Smoking cessation counseling. 6. Monitor electrolytes and chemistries. Thank you for the courtesy of this consultation. We will follow this patient closely with you. Lula Hurd MD cc: [id number] TT: 08/22/2016 16:43:25 Confirmation # [id number] Dictation # [id number] sn
--- NOTE | 2016-08-22 20:41 | PN ---
DATE: 08/22/2016 REFERRING PHYSICIAN: Dr. Sosa. SUBJECTIVE: She is out of bed to chair. Night was unremarkable, feels a little better, decreased co ugh, decreased shortness of breath. No nausea, no vomiting, no diarrhea. Does have urinary frequenc y, no leg pain or leg swelling. OBJECTIVE: GENERAL: No acute distress. VITAL SIGNS: Temperature is 98, heart rate is 85, respiratory rate is 20, blood pressure 141/58, pul se ox 93% on room air. HEENT: Moist mucous membranes. Crowded airway. NECK: Supple. No JVD. LUNGS: Has a fair airflow with few rhonchi and crackles. HEART: S1, S2. ABDOMEN: Soft, nontender. No organomegaly. EXTREMITIES: There is no edema. NEUROLOGIC: Awake, alert, follows simple commands. MEDICATIONS: She is on Brovana 15 mcg inhaled twice a day, insulin coverage, Levemir 12 units subQ t wice a day, Lovenox 40 mg subQ daily, Nicoderm patch daily, Pepcid 20 mg daily, Percocet 5/325 one ta b q. 6 hours p.r.n., IV fluid with potassium 25 mL per hour, Protonix 40 mg daily, Pulmicort inhaled twice daily, Rocephin 1 gram daily, Singulair 10 mg daily, Solu-Medrol 20 mg q. 12 hours, Tylenol on a p.r.n. basis, Xanax 0.5 mg q.i.d. p.r.n., Xopenex inhaler q.i.d., Zithromax 500 mg daily, Zofran on a p.r.n. basis. LABORATORY DATA: Shows blood sugar of 161. MICROBIOLOGY: Blood culture, urine culture so far there is no growth. Had a bladder scan and renal scan done, report pending. CAT scan of the chest and neck is done, ic h has no significant new finding seen compared to 06/24/2015, stable appearance, ____ moderate complex loculated right pleural collection, now associated gas, stable appearance of the chronic dense consol idation associated with bronchiectasis and scarring in the right upper lung posteriorly stable repeat ing of volume loss involving the right lung, absence of the changes in the above findings suggesting chronic postoperative and postradiation changes. Recommend clinical correlation, esophageal finding probably secondary to gastroesophageal reflux, moderate hiatal hernia. IMPRESSION AND PLAN: Chronic obstructive lung disease with bronchiectasis, gastroesophageal reflux d isease, anxiety disorder, hypertension, diabetes, nicotine dependent, history of breast cancer status post radiation, incomplete chemotherapy. Pulmonary point of view, doing well. Continue p.o. and in haled bronchodilator, antibiotics. Gastric prophylaxis, deep venous thrombosis prophylaxis. Fall pr ecaution. Oncology followup. The patient is urged to stop smoking. Thank you and will follow with you. Lisa Rucker MD cc: [id number] TT: 08/22/2016 20:40:40 Confirmation # [id number] Dictation # [id number]
--- NOTE | 2016-08-23 01:31 | CON ---
DATE: 08/22/2016 CONSULTATION REQUESTED BY: Sloan Sosa MD REASON FOR CONSULTATION: History of breast cancer. HISTORY OF PRESENT ILLNESS: The patient is a 55-year-old female diagnosed with breast cancer last year in 08/2015. She had a 4 cm left-sided breast mass. She was evaluated in the office a year ago and was advised to get neoadjuvant chemotherapy. She received 1 cycle of chemotherapy with Adriamycin and Cytoxan. After that, she did not come for followup visits and refused to get further chemo. She is admitted to the hospital with shortness of breath, nausea , vomiting and abdominal pain for 5 days. CAT scan of neck is unremarkable. CAT scan of the abdomen did not show any mass lesion. There is hepatomegaly and right-sided pleural effusion. She is currently on IV antibiotics. Shortness of breath has improved during hospitalization. She also has history of hypertension and COPD. She continues to smoke. PAST MEDICAL HISTORY: Hypertension, COPD, diabetes mellitus type 2, history of breast cancer diagnosed a year ago, GE reflux, anxiety. PAST SURGICAL HISTORY: . REVIEW OF SYSTEMS: As per HPI. The rest of 12-point review of systems reviewed and negative. ALLERGIES: LEVOFLOXACIN and NYSTATIN. HOME MEDICATIONS: Singulair 10 mg daily, omeprazole 40 mg daily. SOCIAL HISTORY: Lives at home. FAMILY HISTORY: Noncontributory. No positive family history in mother and father. PERSONAL HISTORY: Chronic smoker, smokes more than 10 cigarettes a day. PHYSICAL EXAMINATION: GENERAL: Comfortable in bed, in no acute distress. VITAL SIGNS: Temperature is 98.7, heart rate is 100 per minute, respiratory rate is 18 per minute, blood pressure 160/110, oxygen saturation 91% room air. HEENT: Normal. NECK: No lymphadenopathy. CHEST: Air entry present left side, decreased on the right side. CARDIAC: S1, S2 normal. No murmur, no gallop. ABDOMEN: Soft, nontender. No hepatosplenomegaly. EXTREMITIES: No edema. CENTRAL NERVOUS SYSTEM: Alert, oriented x 3. No sensory or motor deficit. SKIN: No petechia, no rash. LYMPHADENOPATHY: None. LABORATORY DATA: White count 21,000, hemoglobin 15.3, hematocrit 44.9, platelet count 324. Sodium 141, potassium 3.4, BUN 56, creatinine 1.7, glucose 166. IMAGING: Chest x-ray: No infiltrate. CAT scan of the chest, abdomen and pelvis as per HPI. ASSESSMENT: 1. History of breast cancer, left-sided, noncompliant. 2. Chronic obstructive pulmonary disease. 3. Sepsis. PLAN: 1. Breast cancer; she was diagnosed with breast cancer a year ago. At that time, she had staging workup and did not have metastatic disease. She has not received any treatment for breast cancer, neither she had surgery. She was noncompliant and did not show up for the office visits. Multiple repeated calls were made to her, but she declined any kind of medical care. Dr. Simental evaluated her for surgery, but again, she was noncompliant and did not show up for the scheduled appointment. She needs staging workup. CAT scan of the chest, abdomen and pelvis did not show any obvious stage IV disease. She will need a PET scan. If no evidence of metastatic disease, she should undergo lumpectomy or mastectomy on the left side. Tumor was ER positive, NV negative and HER2-positive. PET scan will be scheduled as outpatient if she is compliant with the office visits. She has leukocytosis, likely due to sepsis. 2. Chronic obstructive pulmonary disease. Management as per primary team. 3. Infectious disease. She is on IV antibiotic with ceftriaxone and azithromycin. Blood counts, leukocytosis declining. Thank you, Dr. Sosa, for allowing us to participate in the patient's care. I had a lengthy discussion with her. She is stating that she wants treatment for breast cancer now. We will continue to follow during hospitalization. Stephanie Zelaya MD cc: [id number] TT: 08/23/2016 01:29:51 Confirmation # [id number] Dictation # [id number] onur ZEE
--- NOTE | 2016-08-23 05:19 | PN ---
DATE: 08/22/2016 ADDENDUM This is an addendum to the GI progress report dictated by Hortencia De León APN. The patient with advanced breast cancer admitted with abdominal pain and also loose bowel movements. The patient is tolerating the diet, had chief complaint of some difficulty in swallowing, mainly in the neck. The patient had a CT of the neck and chest done with oral contrast to rule out any obstructing area. The patient appears to have a chronic pleural effusion and bulla. No obstructing lesion otherwise noticed. The patient does have some thickening . Would recommend at this point to continue the PPI and advance the diet. Thank you very much for allowing me to participate in the care of the patient. Gerald Coker MD cc: [phone] TT: 08/23/2016 05:18:18 Confirmation # [id number] Dictation # [id number] flower ZEE
[2016-08-23] MEDS: Arformoterol 15 mcg/2 ml Inh Sol IH SCH ×2 (07:21→19:25)
[2016-08-23] MEDS: Levalbuterol 1.25 MG/3 ML Inhal Soln UD IH SCH ×4 (07:21→19:26)
[2016-08-23] MEDS: Budesonide 0.5 mg/2 ml Inhal Susp UD IH SCH ×2 (07:21→19:25)
[2016-08-23] MEDS: Insulin Regular 1 UNITS/0.01 ML ML SC SCH ×3 (08:11→16:46)
[2016-08-23] MEDS: Insulin Reg-LOW-Coverage SC SCH ×4 (08:11→21:51)
--- NOTE | 2016-08-23 08:27 | PN ---
DATE: 08/22/2016 The patient is clinically better. She is afebrile. She is not vomiting. No abdominal pain. The pa tient otherwise stable. PHYSICAL EXAMINATION: VITAL SIGNS: Temperature 97.9, heart rate 85, blood pressure 141/58, respiratory rate 22, saturation 97% on room air. HEAD AND NECK: Normal. No JVD, no thyromegaly. CHEST: Clear, a few rhonchi. CARDIAC: First sound, second sound normal. ABDOMEN: Soft. Mild epigastric tenderness. EXTREMITIES: No edema. NEUROLOGIC: Normal. LABORATORY DATA: Last white count 16.8, hemoglobin 13, hematocrit 39.2, platelets 270. The patient also has blood sugar 132, 150. Microbiology-macario, the patient had urine culture; it was negative. B lood cultures x 2 were negative. IMPRESSION AND PLAN: 1. Acute renal failure, etiology unclear. Will get ultrasound, bladder ultrasound, kidneys, and iggy l get Dr. Hurd renal consult. The patient does have some thickening in the wall of gallbladder whic h is chronic. Will discuss further with the bid analyst. Maybe a urology consult will help. Richard nue IV fluids and follow up clinically. 2. Insulin-dependent diabetes. Continue insulin coverage. 3. Abdominal pain, nausea, vomiting. Dr. Coker has seen the patient. Continue Zofran. Continue IV Protonix. 4. Breast cancer. Dr. Zelaya will see the patient. Will follow up with Stephanie Zelaya. We will follow up on the patient. 5. Chronic obstructive pulmonary disease, chronic anxiety, chronic back pain. Continue current medi cations: Xanax, Percocet, inhaled bronchodilators. Follow up clinically. 6. Acute chronic obstructive pulmonary disease exacerbation. The patient is getting steroids IV, in haled bronchodilator, Xopenex, Brovana, Pulmicort, cough medicine. Seems doing better. Continue cur rent treatment. Continue GI and DVT prophylaxis. Sloan Sosa MD cc: [phone] TT: 08/23/2016 08:26:26 Confirmation # [id number] Dictation # [id number] mn
[2016-08-23] MEDS: MethylPREDNISolone 40 mg Vial IVP SCH ×2 (09:07→20:58)
[2016-08-23] MEDS: Enoxaparin 40 mg Syringe SC SCH (09:08)
[2016-08-23] MEDS: Oxycodone/Acetaminophen 5/325 mg Tab PO PRN ×3 (09:09→20:57)
[2016-08-23] MEDS: cefTRIAXone 1 gm 1 GM/100 ML BAG IVPB SCH (09:10)
[2016-08-23] MEDS: Azithromycin 500MG/NS 250ml 500 MG/250 ML BAG IVPB SCH (09:10)
[2016-08-23] MEDS: Insulin Detemir 100 units/ml Vial (Levemir) SC SCH ×2 (09:10→17:00)
--- NOTE | 2016-08-23 10:24 | US ---
PROCEDURE: Ultrasound of the Kidneys HISTORY: Elevated creatinine COMPARISON: None available. TECHNIQUE: Sonogram of the kidneys. FINDINGS: RIGHT KIDNEY: Measures: 11.2 cm. Normal in size, contour and echogenicity. There is mild hydronephrosis. No nephrolithiasis or solid mass. There are few simple cysts, the largest measures 2.2 cm. LEFT KIDNEY: Measures: 10.1 cm. Normal in size, contour and echogenicity. There is mild hydronephrosis. No nephrolithiasis or solid mass. There are 2 simple cysts, the larger in the upper pole measures 2.3 cm. OTHER FINDINGS: None. IMPRESSION: Mild bilateral hydronephrosis. No nephrolithiasis. Simple renal cysts, the largest in the left upper pole measures 2.3 cm.
--- NOTE | 2016-08-23 10:26 | US ---
PROCEDURE: Ultrasound of the Bladder HISTORY: elevated creatinine COMPARISON: None available. TECHNIQUE: Sonographic evaluation of the bladder was performed. FINDINGS: Partially distended and grossly normal in appearance. No calculus or gross mass lesion. No free fluid in pelvis. Prevoid Volume: 179 cc. Post void residual: 33 cc. IMPRESSION: Small postvoid residual.
--- NOTE | 2016-08-23 14:47 | PN ---
DATE: 08/23/2016 SUBJECTIVE: The patient is currently seen sitting up in bed. IV fluids have been discontinued. Thi s patient is going for a shower. She remains on antibiotic therapy for possible pneumonia superimpos ed on her chronic pulmonary disease, bronchiectasis, COPD. The patient has had no further laboratory work for followup of her elevated BUN and creatinine. She remains on IV fluids with potassium. MEDICATIONS: List reviewed. The patient is currently on Brovana, insulin, Lovenox, Nicoderm CQ, Pep lazarus, Percocet p.r.n., IV fluid normal saline with 10 mEq of potassium chloride 75 mL an hour, Protoni x, Pulmicort, Rocephin, Singulair, Solu-Medrol, Tylenol, Xanax, Xopenex, Zithromax, and Zofran. OBJECTIVE: INTAKE AND OUTPUT: Intake 1580, output not charted. VITAL SIGNS: Blood pressure 139/69, temperature 98.3, respiratory rate 22 with a pulse of 88. HEENT: Shows her to be normocephalic, atraumatic. Conjunctivae are pink. Sclerae are nonicteric. NECK: Supple, no neck vein distention. CHEST: Decreased breath sounds at the right base with scattered rhonchi. She has a port in her righ t upper chest wall. CARDIAC: S1, S2 are regular. No murmurs, rubs, or gallops. ABDOMEN: Soft. Bowel sounds normal. No rebound, no guarding, no masses. EXTREMITIES: Show no lower extremity edema. No cyanosis, no clubbing. LABORATORY DATA AND IMAGING: CBC from 08/21/2016: White blood cell count 16.8, hemoglobin 13 with a platelet count of 270,000. Chemistries were done 08/21, showed normal electrolytes. Potassium is up to 3.7, BUN 52 with a creatinine of 1.8. Her baseline BUN is in the 30s with a baseline creatinine i n the 1.2 range dating back to 2016. Glucose control is acceptable. The patient had TNTC white bloo d cells in her urine, 15-20 red blood cells in her urine and 2+ protein. Microbiology: Urine cultur es were negative. Blood cultures are negative at 48 hours. ASSESSMENT: 1. Acute renal insufficiency, possibly secondary to volume depletion, superimposed on possible chron ic kidney disease stage II. 2. Possible presentation with dehydration on admission. The patient will continue IV fluid pending a return of her BUN and creatinine back to her baseline range. 3. History of chronic obstructive pulmonary disease, bronchiectasis and possible pneumonia. The pat ient is on empiric antibiotic therapy. 4. History of non-insulin dependent diabetes mellitus. The patient is on sliding scale insulin with good sugar control. 5. History of breast cancer, currently stable. PLAN: 1. Continue IV fluid pending review of laboratory work, which I will order for today and again for t omorrow morning. 2. Continue empiric antibiotic therapy for possible pneumonia. 3. Continue to monitor accurate I's and O's and daily labs. 4. Duration of antibiotics as per Dr. Sosa. Jared Beatty MD cc: [phone] TT: 08/23/2016 14:46:58 Confirmation # [id number] Dictation # [id number] en
[2016-08-23 16:25] LABS: HEMATOCRIT 38.9 % (36.0-48.0); MEAN CELL VOLUME 92.8 fL (80.0-105.0); MEAN CORPUSCULAR HEMOGLOBIN 29.4 pg (25.0-35.0); MEAN CORPUSCULAR HGB CONC 31.6 g/dl (31.0-37.0); MEAN PLATELET VOLUME 11.5 fl (7.0-11.0); RED CELL DISTRIBUTION WIDTH 14.8 % (11.5-14.5); WHITE BLOOD COUNT 11.6 10^3/ul (4.5-11.0)
[2016-08-23 16:36] LABS: ALB/GLOB RATIO 1.4 (1.1-1.8); BILIRUBIN,TOTAL 0.3 mg/dL (0.2-1.3); CALCIUM 8.4 mg/dL (8.4-10.5); PHOSPHOROUS 3.1 mg/dL (2.5-4.5); POTASSIUM 5.4 mmol/L (3.6-5.0); TOTAL PROTEIN 6.4 g/dL (5.8-8.3)
--- NOTE | 2016-08-23 18:37 | PN ---
DATE: 08/23/2016 REFERRING PHYSICIAN: Dr. Sosa. SUBJECTIVE: The patient is sitting side of the bed, having supper, feels okay, cough is better. No nausea, no vomiting, no diarrhea, no leg pain or leg swelling. OBJECTIVE: GENERAL: In no acute distress. VITAL SIGNS: Temperature is 98, heart rate is 84, respiratory rate is 20, blood pressure 142/81, pul se ox 92% on room air. HEENT: Moist mucous membranes. No ulcer or oral thrush noted. NECK: Supple. No JVD. LUNGS: Has a fair airflow with a few rhonchi. HEART: S1, S2. ABDOMEN: Soft, nontender. No organomegaly. EXTREMITIES: There is no edema. NEUROLOGIC: Awake, alert, follows simple commands. MEDICATIONS: She is on Brovana 15 mcg inhaled twice a day, insulin coverage, Levemir 12 units subQ t wice a day, Lovenox 40 mg subQ daily, Nicoderm patch 1 patch daily, Pepcid 20 mg daily, Percocet /32 5 one tab q.6 hours p.r.n., potassium supplement with fluids 75 mL per hour, Protonix 40 mg daily, Pu lmicort inhaled twice a day, Rocephin 1 gram daily, Singulair 10 mg daily, Solu-Medrol 20 mg q.12 tomasa rs, Tylenol p.r.n., Xanax 0.5 mg q.i.d. p.r.n., Xopenex inhaler q.i.d., Zithromax 500 mg daily, Zofra n on a p.r.n. basis. LABORATORY DATA: Shows hemoglobin 12.3, hematocrit 38.9, WBC 11.6, platelet is 285. Sodium 138, pot assium 5.4, chloride 104, bicarbonate 25, BUN 42, creatinine 1.4, glucose 176, calcium 8.4, phosphoru s 3.1, magnesium 2.0. AST 19, ALT 18, alkaline phosphatase is 76, total protein 6.4, albumin is 3.8. MICROBIOLOGY: Blood culture negative. IMPRESSION AND PLAN: Chronic obstructive lung disease, bronchiectasis, gastroesophageal reflux disea se, anxiety disorder, hypertension, diabetes, nicotine dependent, history of breast cancer, completed radiation therapy, did not complete chemotherapy; mild renal insufficiency. Pulmonary point of view , doing okay. Continue IV and inhaled bronchodilator. Gastric prophylaxis. Deep venous thrombosis prophylaxis. Fall precaution. The patient asked to stop smoking. Thank you and will follow with you. Lisa Rucker MD cc: [phone] TT: 08/23/2016 18:36:59 Confirmation # [id number] Dictation # [id number] dn
--- NOTE | 2016-08-23 18:59 | CP.PCM.PN ---
Subjective - Date & Time of Evaluation Date of Evaluation: 08/23/16 Time of Evaluation: 10:40 - Subjective Subjective: Seen and examined at bedside this am. Tolerating diet, no N/V or abd. pain. Had a small formed BM, does not want laxative. No acute overnight events. Renal US: mild hydronephrosis, no stones or mass, 2 simple renal cysts Objective - Vital Signs/Intake and Output Vital Signs (last 24 hours): Temp Pulse Resp BP Pulse Ox 98.6 F 84 22 142/81 92 L 08/23/16 16:00 08/23/16 16:00 08/23/16 16:00 08/23/16 16:00 08/23/16 16:00 Intake and Output: 08/23/16 08/23/16 06:59 18:59 Intake Total 620 720 Balance 620 720 - Medications Medications: Current Medications Acetaminophen (Tylenol 325mg Tab) 650 mg PO Q4 PRN PRN Reason: Fever >100.4 F Alprazolam (Xanax) 0.5 mg PO QID PRN; Protocol PRN Reason: Anxiety Last Admin: 08/23/16 13:36 Dose: 0.5 mg Arformoterol Tartrate (Brovana) 15 mcg IH [id number] [facility] Last Admin: 08/23/16 07:21 Dose: 15 mcg Budesonide (Pulmicort Respules) 1 mg IH [id number] [facility] Last Admin: 08/23/16 07:21 Dose: 0.5 mg Enoxaparin Sodium (Lovenox) 40 mg SC DAILY [facility] PRN Reason: Protocol Last Admin: 08/23/16 09:08 Dose: 40 mg Famotidine (Pepcid) 20 mg PO DAILY [facility] Last Admin: 08/23/16 09:09 Dose: 20 mg Ceftriaxone Sodium (Rocephin 1 Gram Ivpb) 1 gm in 100 mls @ 100 mls/hr IVPB DAILY [facility] PRN Reason: Protocol Last Admin: 08/23/16 09:10 Dose: 100 mls/hr Azithromycin (Zithromax 500mg In Ns) 500 mg in 250 mls @ 167 mls/hr IVPB DAILY [facility] PRN Reason: Protocol Last Admin: 08/23/16 09:10 Dose: 167 mls/hr Potassium Chloride 10 meq/ (Sodium Chloride) 1,005 mls @ 75 mls/hr IV .[id number] [facility] Last Admin: 08/23/16 04:46 Dose: Not Given Insulin Detemir (Levemir) 12 unit SC BID [facility] Last Admin: 08/23/16 17:00 Dose: 12 unit Insulin Human Regular (Humulin R) 4 units SC AC [facility] Last Admin: 08/23/16 16:46 Dose: 4 units Insulin Human Regular (Humulin R Low) 0 units SC ACHS [facility] PRN Reason: Protocol Last Admin: 08/23/16 16:46 Dose: 3 units Levalbuterol HCl (Xopenex) 1.25 mg IH QIDRESP [facility] Last Admin: 08/23/16 10:58 Dose: 1.25 mg Methylprednisolone (Solu-Medrol) 20 mg IVP Q12 [facility] Last Admin: 08/23/16 09:07 Dose: 20 mg Montelukast Sodium (Singulair) 10 mg PO HS [facility] Last Admin: 08/22/16 22:01 Dose: 10 mg Nicotine (Nicoderm Cq) 1 patch TD DAILY [facility] Last Admin: 08/23/16 09:09 Dose: 1 patch Ondansetron HCl (Zofran Inj) 4 mg IVP Q4H PRN PRN Reason: Nausea/Vomiting Oxycodone/Acetaminophen (Percocet 5/325 Mg Tab) 1 tab PO Q6H PRN PRN Reason: Pain, moderate (4-7) Stop: 08/23/16 22:23 Last Admin: 08/23/16 14:56 Dose: 1 tab Pantoprazole Sodium (Protonix Inj) 40 mg IVP DAILY [facility] Last Admin: 08/23/16 09:07 Dose: 40 mg - Labs Labs: 08/23/16 16:00 08/23/16 16:00 PT 12.4 Seconds (9.9-11.8) H 08/20/16 15:40 INR 1.15 (0.93-1.08) H 08/20/16 15:40 APTT 29.1 Seconds (23.7-30.8) 08/20/16 15:40 - Constitutional Appears: No Acute Distress - Head Exam Head Exam: NORMAL INSPECTION - Eye Exam Eye Exam: PERRL. absent: Scleral icterus - ENT Exam ENT Exam: Mucous Membranes Moist - Neck Exam Neck Exam: Normal Inspection - Respiratory Exam Respiratory Exam: Clear to Ausculation Bilateral, NORMAL BREATHING PATTERN. absent: Respiratory Distress - Cardiovascular Exam Cardiovascular Exam: +S1, +S2 - GI/Abdominal Exam GI & Abdominal Exam: Soft, Normal Bowel Sounds. absent: Guarding, Tenderness, Rebound - Extremities Exam Extremities Exam: absent: Calf Tenderness, Pedal Edema - Neurological Exam Neurological Exam: Alert, Awake, Oriented x3 - Skin Skin Exam: Dry, Warm Assessment and Plan - Assessment and Plan (Free Text) Assessment: ASSESSMENT: Fever Diarrhea Neck pain/ Dysphagia s/p CT of the chest and neck was done. It looks like she may have some esophagitis. There is no change from the previous CT scan done in 06/2015 Acute renal failure PLAN: continue soft diet Continue PPI on Solu-Medrol on ceftriaxone and Zithromax Seen and case discussed with Dr. Coker.
--- NOTE | 2016-08-23 19:45 | PN ---
DATE: 08/23/2016 ADDENDUM This is an addendum to the GI progress report dictated by Hortencia De León APN. The patient is now feeling better, tolerating the diet. The CAT scan was reviewed. The patient does have breast cancer and did not complete the chemotherapy. It is a locally advanced tumor. We will consider empiric PPI, continuation of therapy and patient is advised to eat small amount food. No complaints of any abdominal pain. On examination, abdomen remains soft. Thank you very much for allowing us to participate in the care of the patient. Gerald Coker MD cc: [phone] TT: 08/23/2016 19:44:36 Confirmation # [id number] Dictation # [id number] mn MTDD
[2016-08-24] MEDS ORDERED: Oxycodone/Acetaminophen 5/325 mg Tab PO ONE (05:48)
[2016-08-24 07:21] LABS: HEMATOCRIT 38.8 % (36.0-48.0); MEAN CELL VOLUME 93.5 fL (80.0-105.0); MEAN CORPUSCULAR HEMOGLOBIN 29.2 pg (25.0-35.0); MEAN CORPUSCULAR HGB CONC 31.2 g/dl (31.0-37.0); MEAN PLATELET VOLUME 11.4 fl (7.0-11.0); RED CELL DISTRIBUTION WIDTH 14.7 % (11.5-14.5)
[2016-08-24] MEDS: Budesonide 0.5 mg/2 ml Inhal Susp UD IH SCH ×2 (07:34→20:52)
[2016-08-24] MEDS: Arformoterol 15 mcg/2 ml Inh Sol IH SCH ×2 (07:34→20:52)
[2016-08-24] MEDS: Levalbuterol 1.25 MG/3 ML Inhal Soln UD IH SCH ×4 (07:34→20:53)
[2016-08-24 07:48] LABS: ALB/GLOB RATIO 1.4 (1.1-1.8); BILIRUBIN,TOTAL 0.3 mg/dL (0.2-1.3); CALCIUM 8.2 mg/dL (8.4-10.5); POTASSIUM 5.3 mmol/L (3.6-5.0); TOTAL PROTEIN 5.8 g/dL (5.8-8.3)
[2016-08-24] MEDS: Insulin Reg-LOW-Coverage SC SCH ×4 (08:31→22:20)
[2016-08-24] MEDS: Insulin Regular 1 UNITS/0.01 ML ML SC SCH ×3 (08:31→17:52)
[2016-08-24] MEDS: Insulin Detemir 100 units/ml Vial (Levemir) SC SCH ×2 (10:24→17:53)
[2016-08-24] MEDS: cefTRIAXone 1 gm 1 GM/100 ML BAG IVPB SCH (10:25)
[2016-08-24] MEDS: Enoxaparin 40 mg Syringe SC SCH (10:26)
[2016-08-24] MEDS: MethylPREDNISolone 40 mg Vial IVP SCH ×2 (10:26→22:53)
--- NOTE | 2016-08-24 10:48 | CP.PCM.PN ---
Subjective - Date & Time of Evaluation Date of Evaluation: 08/24/16 Time of Evaluation: 08:00 - Subjective Subjective: Seen and examined this am, no c/o dysphagia, it is better and so is neck pain. Having bm that is soft, no bleeding. No acute overnight events reported. Objective - Vital Signs/Intake and Output Vital Signs (last 24 hours): Temp Pulse Resp BP Pulse Ox 98.1 F 68 20 139/52 L 94 L 08/24/16 08:15 08/24/16 08:15 08/24/16 08:15 08/24/16 08:15 08/24/16 08:15 Intake and Output: 08/24/16 08/24/16 06:59 18:59 Intake Total 640 Balance 640 - Medications Medications: Current Medications Acetaminophen (Tylenol 325mg Tab) 650 mg PO Q4 PRN PRN Reason: Fever >100.4 F Alprazolam (Xanax) 0.5 mg PO QID PRN; Protocol PRN Reason: Anxiety Last Admin: 08/24/16 01:47 Dose: 0.5 mg Arformoterol Tartrate (Brovana) 15 mcg IH [id number] [facility] Last Admin: 08/24/16 07:34 Dose: 15 mcg Budesonide (Pulmicort Respules) 1 mg IH [id number] [facility] Last Admin: 08/24/16 07:34 Dose: 1 mg Enoxaparin Sodium (Lovenox) 40 mg SC DAILY [facility] PRN Reason: Protocol Last Admin: 08/24/16 10:26 Dose: 40 mg Famotidine (Pepcid) 20 mg PO DAILY [facility] Last Admin: 08/24/16 10:26 Dose: 20 mg Ceftriaxone Sodium (Rocephin 1 Gram Ivpb) 1 gm in 100 mls @ 100 mls/hr IVPB DAILY [facility] PRN Reason: Protocol Last Admin: 08/24/16 10:25 Dose: 100 mls/hr Azithromycin (Zithromax 500mg In Ns) 500 mg in 250 mls @ 167 mls/hr IVPB DAILY [facility] PRN Reason: Protocol Last Admin: 08/23/16 09:10 Dose: 167 mls/hr Potassium Chloride 10 meq/ (Sodium Chloride) 1,005 mls @ 75 mls/hr IV .[id number] [facility] Last Admin: 08/23/16 04:46 Dose: Not Given Insulin Detemir (Levemir) 12 unit SC BID [facility] Last Admin: 08/24/16 10:24 Dose: 12 unit Insulin Human Regular (Humulin R) 4 units SC AC [facility] Last Admin: 08/24/16 08:31 Dose: 4 units Insulin Human Regular (Humulin R Low) 0 units SC ACHS [facility] PRN Reason: Protocol Last Admin: 08/24/16 08:31 Dose: 2 units Levalbuterol HCl (Xopenex) 1.25 mg IH QIDRESP [facility] Last Admin: 08/24/16 07:34 Dose: 1.25 mg Methylprednisolone (Solu-Medrol) 20 mg IVP Q12 [facility] Last Admin: 08/24/16 10:26 Dose: 20 mg Montelukast Sodium (Singulair) 10 mg PO HS [facility] Last Admin: 08/23/16 20:57 Dose: 10 mg Nicotine (Nicoderm Cq) 1 patch TD DAILY [facility] Last Admin: 08/24/16 10:25 Dose: 1 patch Ondansetron HCl (Zofran Inj) 4 mg IVP Q4H PRN PRN Reason: Nausea/Vomiting Pantoprazole Sodium (Protonix Inj) 40 mg IVP DAILY [facility] Last Admin: 08/24/16 10:26 Dose: 40 mg - Labs Labs: 08/24/16 07:00 08/24/16 07:00 PT 12.4 Seconds (9.9-11.8) H 08/20/16 15:40 INR 1.15 (0.93-1.08) H 08/20/16 15:40 APTT 29.1 Seconds (23.7-30.8) 08/20/16 15:40 - Constitutional Appears: No Acute Distress - Head Exam Head Exam: NORMOCEPHALIC - Eye Exam Eye Exam: Normal appearance. absent: Scleral icterus - ENT Exam ENT Exam: Mucous Membranes Moist - Respiratory Exam Respiratory Exam: Clear to Ausculation Bilateral, NORMAL BREATHING PATTERN. absent: Respiratory Distress - Cardiovascular Exam Cardiovascular Exam: +S1, +S2 - GI/Abdominal Exam GI & Abdominal Exam: Soft, Normal Bowel Sounds. absent: Guarding, Tenderness, Rebound - Extremities Exam Extremities Exam: absent: Calf Tenderness, Pedal Edema - Neurological Exam Neurological Exam: Alert, Awake, Oriented x3 - Skin Skin Exam: Dry, Warm Assessment and Plan - Assessment and Plan (Free Text) Assessment: ASSESSMENT: Fever Diarrhea, improved Breast Cancer Neck pain/ Dysphagia s/p CT of the chest and neck was done. It looks like she may have some esophagitis. There is no change from the previous CT scan done in 06/2015 Acute renal failure PLAN: continue soft diet Continue PPI on Solu-Medrol on ceftriaxone and Zithromax Seen and case discussed with Dr. Coker.
[2016-08-24] MEDS: Azithromycin 500MG/NS 250ml 500 MG/250 ML BAG IVPB SCH (11:27)
[2016-08-24] MEDS: Oxycodone/Acetaminophen 5/325 mg Tab PO PRN ×2 (11:59→21:34)
--- NOTE | 2016-08-24 15:20 | PN ---
DATE: 08/24/2016 ADDENDUM LABORATORY DATA: WBC 9.0, hemoglobin 12, hematocrit 38.8, platelets 264. Sodium 137, potassium 5.3, chloride 103, CO2 of 28, BUN 41, creatinine 1.5, glucose 271, calcium 8.2, AST 12, ALT 26, albumin 3 .4. Urine culture no growth. Blood culture no growth. CURRENT MEDICATIONS: Brovana, insulin, Levemir, Lovenox, Pepcid, Percocet, Protonix, Rocephin 1 gram daily, Singulair, Solu-Medrol, Tylenol, Xanax, Xopenex, Zithromax, Zofran. ASSESSMENT: 1. Acute kidney injury superimposed on chronic kidney disease stage II. 2. Prerenal azotemia. 3. Chronic obstructive pulmonary disease/bronchiectasis/pneumonia. 4. Non-insulin dependent diabetes mellitus. 5. History of breast cancer. 6. Excessive smoking. PLAN: 1. Push p.o. fluids, acute kidney injury resolving. 2. Continue empiric antibiotics. 3. No treatment for mild hyperkalemia. 4. Discharge planning. Lula Hurd MD cc: [phone] TT: 08/24/2016 14:48:17 Confirmation # [id number] Dictation # [id number] brandt 08/24/2016 14:19:31
--- NOTE | 2016-08-24 15:20 | PN ---
DATE: 08/24/2016 SUBJECTIVE: The patient is seen sitting in chair. She is awake. She is alert. She is comfortable. She complains of cough. She also complains of some congestion. PHYSICAL EXAMINATION: GENERAL: Middle aged lady sitting in chair. VITAL SIGNS: Blood pressure 139/52, heart rate 68, respiratory rate 20, temperature 98.1. HEENT: Normocephalic, atraumatic. NECK: Supple, no JVD. LUNGS: Bilateral rhonchi. No rales appreciated. CARDIAC: S1, S2, regular rate and rhythm, no murmur, no rub. ABDOMEN: Obese, distended, soft, nontender. Bowel sounds present. EXTREMITIES: No lower extremity edema. LABORATORY DATA: ____ Lula Hurd MD cc: [id number] TT: 08/24/2016 14:47:35 Confirmation # [id number] Dictation # [id number] 08/24/2016 14:19:12
--- NOTE | 2016-08-24 16:07 | PN ---
DATE: 08/24/2016 REFERRING PHYSICIAN: Dr. Sosa. SUBJECTIVE: She is sitting side of the bed. Family is at bedside. Night was unremarkable. Wants t o have lentil soup. Breathing is better. Decreased cough and shortness of breath. No nausea, no vo miting. No leg pain or leg swelling. OBJECTIVE: GENERAL: No acute distress. VITAL SIGNS: Temp is 98, heart rate is 68, respiratory rate is 20, blood pressure 139/52, pulse ox 9 4% on room air. HEENT: Moist mucous membrane. No ulcer or thrush noted. NECK: Supple, JVD. LUNGS: Have a few scattered rhonchi. Overall fair airflow. HEART: S1 and S2. ABDOMEN: Soft, nontender. No organomegaly. EXTREMITIES: There is no edema. NEUROLOGIC: Awake, alert, follows simple command. MEDICATIONS: Reviewed. She is on Brovana 15 mcg inhaled twice a day, insulin coverage, Levemir 15 u nits subcutaneous twice a day, Lovenox 40 mg subcutaneous daily, Nicoderm patch daily, Pepcid 20 mg d aily, Percocet 5/325 one tab q. 6 hours p.r.n., IV fluid with potassium 75 mL per hour, Protonix 40 m g daily, Pulmicort inhaled twice a day, Rocephin 1 g IV daily, Singulair 10 mg daily, Solu-Medrol 20 mg q. 12 hours, Tylenol p.r.n. basis, Xanax 0.5 mg 4 times daily p.r.n., Xopenex 1.25 mg 4 times adilene y, Zithromax 500 mg daily, Zofran on a p.r.n. basis. LABORATORY DATA: Shows hemoglobin 12.1, hematocrit 38.8, WBC 9.0, platelet is 264. Sodium 137, pota ssium 5.3, chloride 103, bicarbonate 28, BUN 21, creatinine 1.5, glucose 271, calcium 8.2, AST 12, AL T 26, alk phos is 78, albumin 3.4. MICROBIOLOGY: Blood culture has been negative. IMPRESSION AND PLAN: Chronic obstructive lung disease, bronchiectasis, gastroesophageal reflux disea se, anxiety disorder, hypertension, diabetes, nicotine dependence, breast cancer. The patient comple chris radiation therapy. Did not complete chemotherapy. Mild renal insufficiency. Spoke to nursing s taff. The patient may get lentil soup, bronchodilator, antibiotics, gastric prophylaxis, deep venous thrombosis prophylaxis. Fall precaution. Thank you and will follow with you. Lisa Rucker MD cc: [phone] TT: 08/24/2016 16:06:26 Confirmation # [id number] Dictation # [id number] dn
--- NOTE | 2016-08-24 19:16 | PN ---
DATE: 08/24/2016 This patient is comfortable, tolerating the diet. Now she says no significant discomfort in swallowing. This patient has locally advanced breast carcinoma, did not complete the chemotherapy. The patient was strongly encouraged to follow up with oncology. The reasonable thing is to place the patient on a long -term PPI and a soft diet. No immediate plan for endoscopy at the present time. Thank you very much for allowing us to participate in the care of the patient. Gerald Coker MD cc: [id number] TT: 08/24/2016 19:15:40 Confirmation # [id number] Dictation # [id number] mn MTDD
[2016-08-25 06:26] LABS: HEMATOCRIT 39.2 % (36.0-48.0); MEAN CELL VOLUME 93.1 fL (80.0-105.0); MEAN CORPUSCULAR HEMOGLOBIN 29.7 pg (25.0-35.0); MEAN CORPUSCULAR HGB CONC 31.9 g/dl (31.0-37.0); MEAN PLATELET VOLUME 10.6 fl (7.0-11.0); RED CELL DISTRIBUTION WIDTH 14.7 % (11.5-14.5); WHITE BLOOD COUNT 10.3 10^3/ul (4.5-11.0)
[2016-08-25 06:54] LABS: ALB/GLOB RATIO 1.4 (1.1-1.8); BILIRUBIN,TOTAL 0.2 mg/dL (0.2-1.3); CALCIUM 8.3 mg/dL (8.4-10.5); TOTAL PROTEIN 5.7 g/dL (5.8-8.3)
[2016-08-25 07:41] LABS: POTASSIUM 5.8 mmol/L (3.6-5.0)
--- NOTE | 2016-08-25 07:47 | PN ---
DATE: 08/23/2016 HISTORY OF PRESENT ILLNESS: A 55-year-old female came in with coughing, nausea, vomiting. Apparentl y, the patient feels better. No vomiting. She is eating well. Also her cough is improved. His dys pnea is a lot better and less wheezing. The patient does have a history of recurrent urinary tract i nfections. repair. PHYSICAL EXAMINATION: VITAL SIGNS: Temperature 98.3, heart rate 88, blood pressure 139/59, respirations 22, saturation 92% on room air. HEAD AND NECK: Normal. No JVD, no thyromegaly. CHEST: Diminished breath sounds. A few rhonchi. CARDIAC: First and second heart sounds normal. ABDOMEN: Soft. No tenderness. EXTREMITIES: No edema. NEUROLOGIC: Normal LABORATORY DATA: White count 11.6, hemoglobin 12.2, hematocrit 38.9, platelets 285. Chemistry: ___ __ Sodium , potassium 12.4, chloride , BUN 42, creatinine 1.4. Liver function test is norm al. Blood sugar 175. IMPRESSION AND PLAN: 1. Acute chronic obstructive pulmonary disease exacerbation. Continue current IV steroids, nebulize r treatment, follow up with flexographic press operator. Seems stable. 2. Acute gastroenteritis, seems resolved. Continue current treatment. The patient is getting Zofra n p.r.n., Protonix IV, and Pepcid. Seems better. 3. Diabetes insulin dependent. Continue insulin coverage. The patient 12 units twice a day. Blood sugars seem to be okay. 4. seen by the oncologist, Dr. Zelaya. Will continue current treatment. 5. The patient also has chronic anxiety, chronic back pain. Continue Xanax . Sloan Sosa MD cc: [phone] TT: 08/24/2016 18:04:00 Confirmation # [id number] Dictation # [id number] an
[2016-08-25] MEDS ORDERED: Sodium Chloride 0.45% 1,000 ML IV SCH (08:30)
[2016-08-25] MEDS: Insulin Regular 1 UNITS/0.01 ML ML SC SCH ×3 (08:31→17:04)
[2016-08-25] MEDS: Insulin Reg-LOW-Coverage SC SCH ×4 (08:32→22:57)
[2016-08-25] MEDS: Budesonide 0.5 mg/2 ml Inhal Susp UD IH SCH (09:00)
[2016-08-25] MEDS: Levalbuterol 1.25 MG/3 ML Inhal Soln UD IH SCH (09:00)
[2016-08-25] MEDS: Arformoterol 15 mcg/2 ml Inh Sol IH SCH (09:00)
[2016-08-25] MEDS: Oxycodone/Acetaminophen 5/325 mg Tab PO PRN ×3 (09:40→22:19)
[2016-08-25] MEDS: MethylPREDNISolone 40 mg Vial IVP SCH ×2 (09:40→22:19)
[2016-08-25] MEDS: Enoxaparin 40 mg Syringe SC SCH (09:40)
[2016-08-25] MEDS: Azithromycin 500MG/NS 250ml 500 MG/250 ML BAG IVPB SCH (09:41)
[2016-08-25] MEDS: cefTRIAXone 1 gm 1 GM/100 ML BAG IVPB SCH (09:41)
[2016-08-25] MEDS: Insulin Detemir 100 units/ml Vial (Levemir) SC SCH ×2 (09:42→17:05)
[2016-08-25] MEDS ORDERED: Albuterol 0.083% Inhal Sol (2.5 mg/3 mL) UD IH STA (09:53)
--- NOTE | 2016-08-25 09:58 | PN ---
DATE: 08/24/2016 The patient seems to be doing better, less coughing, less short of breath, less wheezing ____ and ___ _. Still currently on IV steroids, I antibiotic. PHYSICAL EXAMINATION: VITAL SIGNS: Temperature 98, heart rate 82, blood pressure 148/68, respirations 20, saturation 96% o n room air. HEAD AND NECK: Normal. No JVD, no thyromegaly. CHEST: Clear, good air entry. CARDIAC: First sound, second sound normal. ABDOMEN: Soft, nontender. EXTREMITIES: No edema. NEUROLOGIC: Normal. LABORATORY [id number]: As follows: White count 9, hemoglobin 12.1, hematocrit 38.8, platelets 264. C hemistry shows the following: Sodium 137, potassium 5.3, chloride 103, bicarb 28, BUN 41, creatinine 1.5 and blood sugar 271. Calcium 8.2, AST and ALT and alk phos are normal. IMPRESSION AND PLAN: 1. Acute chronic obstructive pulmonary disease exacerbation. Continue IV steroids. Continue inhale d bronchodilators. The patient currently on IV Rocephin and Zithromax. 2. Urinary tract infection. The patient has high creatinine. ____ renal ultrasound which was done and it shows mild hydronephrosis. We will get a nephrology consultation to follow up hydronephrosis. 3. Insulin-dependent diabetes. Continue insulin coverage. Follow up clinically. The patient curre ntly on insulin sliding scale in addition to ____ Levemir. She is getting Levemir 12 units b.i.d. __ __ before meals. 4. Chronic anxiety, chronic back pain. Continue Percocet and Xanax, seems stable with that. 5. Gastrointestinal macario, this patient has acute gastroenteritis, resolved. Continue Protonix, Zofr an p.r.n. We will follow up clinically. Sloan Sosa MD cc: [phone] TT: 08/25/2016 09:29:18 Confirmation # [id number] Dictation # [id number] tn 08/25/2016 08:57:24
--- NOTE | 2016-08-25 11:41 | PN ---
DATE: 08/25/2016 SUBJECTIVE: The patient is seen sitting in bed. She is awake. She is alert. She is comfortable. She is feeling much better. She is coughing less. She is not short of breath. PHYSICAL EXAMINATION: GENERAL: Middle-aged lady sitting in bed. VITAL SIGNS: Blood pressure 148/68, heart rate 82, respiratory rate 20, temperature 98. HEENT: Normocephalic, atraumatic. NECK: Supple. No JVD. LUNGS: Bilateral equal air entry, bilateral rhonchi. CARDIAC: S1, S2, regular rate and rhythm. No murmur, no rub. ABDOMEN: Obese, distended, soft, nontender. Bowel sounds present. EXTREMITIES: No lower extremity edema. INTAKE AND OUTPUT: Not charted. LABORATORY DATA: WBC 10, hemoglobin 12.5, hematocrit 39, platelets 264. Sodium 139, potassium 5.8, chloride 104, CO2 of 29. BUN 37, creatinine 1.5. Glucose 197. Calcium 8.3, albumin 3.3. CURRENT MEDICATIONS: Brovana, insulin, Levemir, Lovenox, Nicoderm CQ, Pepcid, Protonix, Percocet, Ro cephin, Singulair, half normal saline at 75, Solu-Medrol, Xanax, Xopenex, Zithromax, Zofran. ASSESSMENT: 1. Chronic obstructive pulmonary disease with exacerbation. 2. Urinary tract infection. 3. Acute kidney injury, resolved. 4. Hyperkalemia, likely secondary to constipation secondary to Percocet. 5. Non-insulin dependent diabetes mellitus. 6. History of breast cancer. 7. Underlying chronic kidney disease, stage III. PLAN: 1. MiraLax 17 grams today. 2. Albuterol 10 mg via nebulizer for hyperkalemia. 3. Discontinue IV fluids. 4. Continue IV antibiotics. 5. Discharge planning. Lula Hurd MD cc: [id number] TT: 08/25/2016 11:40:29 Confirmation # [id number] Dictation # [id number] stacie
--- NOTE | 2016-08-25 13:27 | PN ---
DATE: 08/25/2016 Seen and examined at the bedside earlier this morning. The patient is tolerating oral intake. Denie s any dysphagia. Her right-sided neck pain is improved, is moving her bowels. No reports of diarrhe a or any overt GI bleed. VITAL SIGNS: Temperature is 98, blood pressure 146/68, pulse rate 82, respirations is 20, 96% on yolie m air. LABORATORIES: WBC is 10.0, H and H is 12.5 and 39.2. This remains steady. Platelets is 264. Chem: Her sodium is 139, K is 5.8, BUN is 37, creatinine is 1.5. LFTs are within normal limits. PHYSICAL EXAMINATION: HEENT: Sclera is anicteric. NECK: Supple. CARDIAC: S1, S2. LUNG SOUNDS: With decreased breath sounds, but good air entry, does have some rhonchi, no wheezing. ABDOMEN: With bowel sounds, softly distended with no tenderness on palpation, rebound or guarding. EXTREMITIES: No edema. NEUROLOGIC: Awake, alert, and oriented. ASSESSMENT: Exacerbation of chronic obstructive pulmonary disease, resolving acute renal failure. T he patient with history of breast cancer, hyperkalemia, urinary tract infection, improved diarrhea. PLAN: Continue her soft diet as tolerated. She is going to get a dose of MiraLax. Continue the PPI . Continue Pepcid. The patient is on Protonix in the a.m. and Pepcid in the evening, on DVT prophyl axis and IV antibiotics. The patient is being followed by renal, pulmonology and oncology. The patient was seen and discussed with Dr. Coker. No planned GI interventions at this time. The patient with no episodes of diarrhea. We will currently sign off. Please reconsult as necessary. Hortencia Vegaes JALEN cc: [phone] TT: 08/25/2016 13:26:27 Confirmation # [id number] Dictation # [id number] en
[2016-08-25] MEDS: POLYETHYLENE GLYCOL 3350 17 GM/Dose PACKET PO ONE ×2 (13:32→13:41)
--- NOTE | 2016-08-25 18:37 | PN ---
DATE: 08/25/2016 REFERRING PHYSICIAN: Dr. Ray. SUBJECTIVE: She is ambulating in the room, feels better, decreased cough, decreased shortness of [place] ath. No nausea, no vomiting, no diarrhea, no leg pain or leg swelling. OBJECTIVE: GENERAL: No acute distress. VITAL SIGNS: Temperature is 99, heart rate is 82, respiratory rate is 20, blood pressure 148/68, pul se ox 96% on room air. HEENT: Moist mucous membranes. Crowded airway. NECK: Supple. No JVD. LUNGS: Have fair airflow with few rhonchi. HEART: S1, S2. ABDOMEN: Soft, nontender. No organomegaly. EXTREMITIES: There is no edema. NEUROLOGIC: Awake, alert, follows simple commands. MEDICATIONS: She is on Brovana 15 mcg inhaled twice a day, insulin coverage, Levemir 12 units subQ q . 12 hours, Lovenox 40 mg subQ daily, Nicoderm patch daily, Pepcid 20 mg daily, Percocet 5/325 one ta b q. 4 hours p.r.n., Protonix 40 mg daily, Pulmicort inhaled twice a day, Rocephin 1 gram IV daily, S ingulair 10 mg daily, Solu-Medrol 20 mg IV q. 12 hours, Tylenol p.r.n., Xanax 0.5 mg 4 times a day p. r.n., Xopenex on a p.r.n. basis, Zithromax 500 mg daily. LABORATORY DATA: Shows hemoglobin 12.5, hematocrit 39.2, WBC 10.3, platelet is 264. Sodium 139, pot assium 5.8, chloride 104, bicarbonate 29, BUN 37, creatinine 1.5, glucose 107, calcium 8.3, albumin i s 3.3. IMPRESSION AND PLAN: Chronic obstructive lung disease, bronchiectasis, gastroesophageal reflux disea se, anxiety disorder, hypertension, diabetes, nicotine dependent, breast cancer. From pulmonary point of view, okay. Continue bronchodilator. Keep head elevated at 45 degrees, IV and inhaled bronchodi lator. Fall precaution. Gastric and deep venous thrombosis prophylaxis. The patient is urged to st op smoking. Thank you and we will follow with you. Lisa Rcuker MD cc: [phone] TT: 08/25/2016 18:37:19 Confirmation # [id number] Dictation # [id number] ln
--- NOTE | 2016-08-25 23:22 | PN ---
DATE: 08/25/2016 ADDENDUM This is an addendum to the GI progress report dictated by Hortencia De León APN. The patient is toleratin g the diet, no specific GI complaints. We will sign off and reconsult as needed. Thank you very muc h for allowing us to participate in the care of the patient. Gerald Coker MD cc: [phone] TT: 08/25/2016 23:21:01 Confirmation # [id number] Dictation # [id number] ln
[2016-08-26 07:10] LABS: HEMATOCRIT 39.4 % (36.0-48.0); MEAN CELL VOLUME 93.4 fL (80.0-105.0); MEAN CORPUSCULAR HEMOGLOBIN 29.6 pg (25.0-35.0); MEAN CORPUSCULAR HGB CONC 31.7 g/dl (31.0-37.0); RED CELL DISTRIBUTION WIDTH 14.7 % (11.5-14.5)
[2016-08-26 07:13] LABS: ALB/GLOB RATIO 1.5 (1.1-1.8); BILIRUBIN,TOTAL 0.2 mg/dL (0.2-1.3); CALCIUM 8.3 mg/dL (8.4-10.5); TOTAL PROTEIN 5.6 g/dL (5.8-8.3)
[2016-08-26] MEDS: Arformoterol 15 mcg/2 ml Inh Sol IH SCH (07:27)
[2016-08-26] MEDS: Budesonide 0.5 mg/2 ml Inhal Susp UD IH SCH ×2 (07:27→19:59)
[2016-08-26] MEDS: Levalbuterol 1.25 MG/3 ML Inhal Soln UD IH SCH ×4 (07:28→20:00)
[2016-08-26 08:36] LABS: POTASSIUM 5.8 mmol/L (3.6-5.0)
--- NOTE | 2016-08-26 09:06 | PCM.URO ---
Urology Progress Note - Objective Lab Results Last 24 Hours: Laboratory Results - last 24 hr 08/25/16 08/25/16 08/25/16 11:28 16:15 21:27 WBC RBC Hgb Hct MCV MCH MCHC RDW Plt Count MPV Sodium Potassium Chloride Carbon Dioxide Anion Gap BUN Creatinine Est GFR ( Amer) Est GFR (Non-Af Amer) POC Glucose (mg/dL) 76 346 H 163 H Random Glucose Calcium Total Bilirubin AST ALT Alkaline Phosphatase Total Protein Albumin Globulin Albumin/Globulin Ratio 08/26/16 08/26/16 06:30 06:30 WBC 11.0 RBC 4.22 Hgb 12.5 Hct 39.4 MCV 93.4 MCH 29.6 MCHC 31.7 RDW 14.7 H Plt Count 296 MPV 11.0 Sodium 137 Potassium 5.8 H* D Chloride 101 Carbon Dioxide 29 Anion Gap 13 BUN 50 H Creatinine 1.9 H Est GFR ( Amer) 33 Est GFR (Non-Af Amer) 27 POC Glucose (mg/dL) Random Glucose 284 H Calcium 8.3 L Total Bilirubin 0.2 AST 15 ALT 24 Alkaline Phosphatase 79 Total Protein 5.6 L Albumin 3.4 Globulin 2.3 Albumin/Globulin Ratio 1.5 Intake & Output: Intake & Output 08/25/16 08/26/16 08/26/16 18:59 06:59 18:59 Intake Total 420 1080 Balance 420 1080 Intake: Oral 420 1080 Other: # Voids Urine, Voided 3 2 # Bowel Movements 0 Vital Signs: Vital Signs - 24 hr 08/25/16 08/26/16 16:00 07:38 Temperature 98.2 F 98.3 F Pulse Rate 86 88 Respiratory 18 20 Rate Blood Pressure 146/66 126/53 L O2 Sat by Pulse 93 L 93 L Oximetry
[2016-08-26] MEDS: Insulin Regular 1 UNITS/0.01 ML ML SC SCH ×3 (10:04→17:31)
[2016-08-26] MEDS: Insulin Reg-LOW-Coverage SC SCH ×4 (10:04→23:45)
[2016-08-26] MEDS: Enoxaparin 40 mg Syringe SC SCH (10:05)
[2016-08-26] MEDS: Insulin Detemir 100 units/ml Vial (Levemir) SC SCH ×2 (10:05→17:32)
[2016-08-26] MEDS: MethylPREDNISolone 40 mg Vial IVP SCH ×2 (10:06→22:08)
[2016-08-26] MEDS: cefTRIAXone 1 gm 1 GM/100 ML BAG IVPB SCH (10:07)
[2016-08-26] MEDS: Azithromycin 500MG/NS 250ml 500 MG/250 ML BAG IVPB SCH (10:10)
[2016-08-26] MEDS: Oxycodone/Acetaminophen 5/325 mg Tab PO PRN ×2 (11:15→22:08)
--- NOTE | 2016-08-26 13:57 | PN ---
DATE: 08/25/2016 The patient clinically stable, comfortable, no distress, no chest pain. Her breathing is much better . She is comfortable. PHYSICAL EXAMINATION: VITAL SIGNS: Temperature 98.3, heart rate 88, blood pressure 126/53, respirations 20, saturation 93% on room air. HEAD AND NECK: Normal. No JVD, no thyromegaly. CHEST: Clear. Good air entry. CARDIAC: First sound, second sound normal. ABDOMEN: Soft, nontender. EXTREMITIES: No edema. NEUROLOGIC: Seems normal. The patient's ultrasound of the renal shows hydronephrosis. IMPRESSION AND PLAN: 1. Acute chronic obstructive pulmonary disease exacerbation. Continue IV antibiotic. Continue Zith romax. Continue steroid IV and inhaled bronchodilators. 2. Diabetes. The patient currently on insulin plus coverage. Seems stable. Blood sugar controlled . Continue current therapy. 3. The patient has breast cancer. Seen by the oncologist. This moment, will follow up with the onc ologist. 4. 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 At this time, continue the Percocet. Continue Xanax for her chronic pain. Will follow up clinically. 5. Acute renal failure. The patient has been seen by human resource statistician. Will follow up. Will get Dr. Isidro espinal as a urology consult for hydronephrosis. She does have thick walled gallbladder, thick walled urinary bladder. Whether a stent will be needed or not, will leave that to the urology and the neph rologist. At this time, we will continue current therapy. Repeat labs in the morning. Sloan Sosa MD cc: [phone] TT: 08/26/2016 13:15:09 Confirmation # [id number] Dictation # [id number] en
[2016-08-26] MEDS ORDERED: Sod Polystyrene Sulf 15 gm/60 ml Oral Susp PO ONE (14:57)
--- NOTE | 2016-08-26 15:12 | PN ---
DATE: 08/26/2016 SUBJECTIVE: The patient is seen sitting in bed. She is awake, she is alert, she is comfortable. Anastacio alarcon has no complaints at this time. PHYSICAL EXAMINATION: VITAL SIGNS: Blood pressure 126/53, heart rate 88, respiratory rate 20, temperature 98.3. HEENT: Normocephalic, atraumatic, positive pallor. NECK: Supple, no JVD. LUNGS: Bilateral equal air entry, scattered rhonchi, no rales. CARDIAC: S1, S2, regular rate and rhythm, no murmur, no rub. ABDOMEN: Soft, nondistended, nontender, bowel sounds present. EXTREMITIES: No lower extremity edema. INTAKE AND OUTPUT: 1500/not charted. LABORATORY DATA: WBC 11, hemoglobin 12.5, hematocrit 39.4, platelets 296. Sodium 137, potassium 5.8 , chloride 101, CO2 29, BUN 50, creatinine 1.9, glucose 284, calcium 8.3, AST 15, ALT 24, albumin 3.4 . CURRENT MEDICATIONS: Brovana, insulin, Lovenox, Nicoderm, Pepcid, Percocet, Protonix, ceftriaxone 1 gram, Singulair, prednisone 20 IV q. 12, Tylenol, Xanax, Xopenex, Zithromax, Zofran. ASSESSMENT: 1. Acute kidney injury superimposed on chronic kidney disease stage III. 2. Hyperkalemia. 3. Chronic obstructive pulmonary disease. 4. Non-insulin dependent diabetes mellitus. 5. History of breast cancer. 6. Urinary tract infection. 7. Mild bilateral hydronephrosis. PLAN: 1. Kayexalate 30 grams x 1 dose for hyperkalemia. 2. A 2 gram potassium diet. 3. Push p.o. fluids. 4. Avoid nephrotoxins. 5. Monitor potassium closely. Lula Hurd MD cc: [phone] TT: 08/26/2016 15:11:21 Confirmation # [id number] Dictation # [id number] en
[2016-08-26] MEDS ORDERED: Enoxaparin 40 mg Syringe SC SCH (19:01)
--- NOTE | 2016-08-26 20:20 | PN ---
DATE: 08/26/2016 REFERRING PHYSICIAN: Dr. Sosa. SUBJECTIVE: The patient is lying in the bed. Family is at the bedside. Night was unremarkable. No headache, no rhinitis, no nausea, no vomiting, no diarrhea. No leg pain or leg swelling. OBJECTIVE: GENERAL: No acute distress. VITAL SIGNS: Temp is 98, heart rate is 88, respiratory rate is 20, blood pressure 126/53, pulse ox 9 3% on room air. HEENT: Moist mucous membrane. Crowded airway. NECK: Supple. No JVD. LUNGS: Has a fair airflow with rhonchi. HEART: S1, S2. ABDOMEN: Soft, nontender. No organomegaly. EXTREMITIES: There is no edema. NEUROLOGIC: Awake, alert, follows simple command. MEDICATIONS: She is on Brovana 15 mcg inhaled twice a day, insulin coverage, Levemir 12 units subQ t wice a day, Lovenox 40 mg daily, NicoDerm patch daily, Pepcid 20 mg daily, Percocet 5/325 one tab q. 6 hours p.r.n., Protonix 40 mg daily, Pulmicort inhaled twice a day, Rocephin 1 gram IV daily, Singu lair 10 mg daily, Solu-Medrol 20 mg q. 12 hours, Tylenol on a p.r.n. basis, Xanax 0.5 mg q.i.d. p.r.n ., Topamax inhaled q.i.d., Zithromax 500 mg daily, Zofran on a p.r.n. basis. LABORATORY DATA: Shows hemoglobin 12.5, hematocrit 39.4, WBC 11.0, platelet is 296. Sodium 137, pot assium 5.8, chloride 101, bicarbonate 29, BUN 50, creatinine 1.9, glucose 284, phosphorus 8.3, AST 15 , ALT 24, albumin is 2.3. MICROBIOLOGY: Blood culture, urine culture, there is no growth. IMPRESSION AND PLAN: Chronic obstructive lung disease, bronchiectasis, gastroesophageal reflux disea se, anxiety disorder, hypertension, diabetes, nicotine dependence, breast cancer, hyperkalemia. Pulm onary point of view, doing okay. Continue bronchodilator. Keep head at 45 degrees. Sleep apnea pre caution. The patient was given Kayexalate. Follow up labs in the morning. Thank you and will follow with you. Lisa Rucker MD cc: [phone] TT: 08/26/2016 20:20:05 Confirmation # [id number] Dictation # [id number] jn
[2016-08-27] MEDS: Insulin Reg-LOW-Coverage SC SCH ×3 (07:07→16:30)
--- NOTE | 2016-08-27 07:59 | PN ---
DATE: 08/27/2016 SUBJECTIVE: The patient is currently seen ambulating in the room in the binding folder machine hours. She is no longer on IV fluids. She is continuing antibiotic therapy for possible pneumonia. Her urine cul tures were negative. The patient remains prerenal. She was hyperkalemic yesterday and did receive a dose of Kayexalate. Today's labs are pending. MEDICATIONS: Medication list reviewed. The patient is currently on Brovana, insulin, Lovenox, Nicod erm, Pepcid, Percocet p.r.n., Protonix, Pulmicort, Rocephin, Singulair, half normal saline at 100 mL an hour which currently is not infusing, Solu-Medrol, Tylenol, Xanax, Xopenex, Zithromax, and Zofran. She is status post 1 dose of Kayexalate yesterday. OBJECTIVE: INTAKE AND OUTPUT: Intake 1020, output not charted. VITAL SIGNS: Blood pressure 128/69, temperature 97, respiratory rate is 20 with a pulse of 93. HEENT: Normocephalic, atraumatic. Conjunctivae are pink. Sclerae are nonicteric. NECK: Supple, no neck vein distention. CHEST: Decreased breath sounds at the right base with scattered rhonchi. She has a port in her righ t upper chest wall. CARDIOVASCULAR: S1, S2 are regular. No murmurs, rubs, or gallops. ABDOMEN: Soft. Bowel sounds normal. No rebound, no guarding, no masses. EXTREMITIES: Show no lower extremity edema. No cyanosis, no clubbing. LABORATORY DATA AND IMAGING: Imaging studies showed mild bilateral hydronephrosis on ultrasound, but her abdominal CT scan did not show any obstructive uropathy. Labs: CBC from yesterday, white cell count 11, hemoglobin 12.5, platelet count is 296,000. Chemistries from yesterday show sodium 137, po tassium 5.8, chloride 101 with a CO2 of 29. BUN is 50 with a creatinine of 1.9. The patient's basel ine BUN is in the 30s with a baseline creatinine of 1.2 dating back to 2016. Urine cultures were neg ative. Blood cultures were negative. ASSESSMENT: 1. Acute renal failure, prerenal azotemia, possibly secondary to volume depletion superimposed on ch ronic kidney disease stage II. Of note, the patient is also on steroids which are likely elevating h er BUN. 2. Dehydration on admission. Agree with continuation of potassium-free IV fluids. 3. History of chronic obstructive pulmonary disease, bronchiectasis and possible pneumonia. The pat ient is currently on antibiotic therapy as per pulmonary. 4. History of non-insulin dependent diabetes mellitus. The patient will continue sliding scale insu stephanie. Glucose control on steroids has been harder to control. 5. History of breast cancer, currently stable. PLAN: 1. We should continue IV fluids until her BUN and creatinine fall back to baseline levels. 2. Complete a course of empiric antibiotic therapy for possible pneumonia. 3. Have asked staff to try and obtain accurate intake/output. 4. Continue renal followup until her electrolytes and BUN and creatinine return to baseline. Jared Beatty MD cc: [phone] TT: 08/27/2016 07:59:16 Confirmation # [id number] Dictation # [id number] tn
[2016-08-27 08:10] LABS: CALCIUM 8.5 mg/dL (8.4-10.5); POTASSIUM 5.3 mmol/L (3.6-5.0)
[2016-08-27] MEDS: Arformoterol 15 mcg/2 ml Inh Sol IH SCH ×2 (09:43→19:36)
[2016-08-27] MEDS: Budesonide 0.5 mg/2 ml Inhal Susp UD IH SCH ×2 (09:43→19:36)
[2016-08-27] MEDS: Levalbuterol 1.25 MG/3 ML Inhal Soln UD IH SCH ×4 (09:44→19:37)
[2016-08-27] MEDS: Insulin Regular 1 UNITS/0.01 ML ML SC SCH ×3 (10:07→16:29)
[2016-08-27] MEDS: Insulin Detemir 100 units/ml Vial (Levemir) SC SCH ×2 (10:07→16:00)
[2016-08-27] MEDS: MethylPREDNISolone 40 mg Vial IVP SCH ×2 (10:08→21:25)
[2016-08-27] MEDS: Enoxaparin 30 mg Syringe SC SCH (10:08)
[2016-08-27] MEDS: cefTRIAXone 1 gm 1 GM/100 ML BAG IVPB SCH (10:11)
[2016-08-27] MEDS: Sodium Chloride 0.45% 1,000 ML IV SCH (10:12)
[2016-08-27] MEDS: Oxycodone/Acetaminophen 5/325 mg Tab PO PRN (10:32)
[2016-08-27] MEDS: Azithromycin 500MG/NS 250ml 500 MG/250 ML BAG IVPB SCH (11:30)
--- NOTE | 2016-08-27 19:12 | PN ---
DATE: 08/27/2016 REFERRING PHYSICIAN: Dr. Sosa. SUBJECTIVE: She is lying in the bed, feels better. No headache, no rhinitis. Her cough is decrease d. No nausea, no vomiting, no diarrhea. No leg pain or leg swelling. OBJECTIVE: GENERAL: In no acute distress. VITAL SIGNS: Temperature is 98, heart rate is 93, respiratory rate is 20, blood pressure 137/66, pul se ox 95% on room air. HEENT: Moist mucous membranes. Crowded airway. NECK: Supple. No JVD. LUNGS: Has a few scattered rhonchi. HEART: S1, S2. ABDOMEN: Soft, nontender. No organomegaly. EXTREMITIES: There is no edema. NEUROLOGIC: Awake, alert, follows simple commands. MEDICATIONS: She is on Brovana 15 mcg inhaled twice a day, insulin coverage, Levemir 12 units subQ t wice a day, Lovenox 30 mg subQ daily, Nicoderm patch daily, Pepcid 20 mg daily, Protonix 40 mg daily, Pulmicort inhaled twice a day, Singulair 10 mg daily, IV fluid half normal saline 100 mL per hour, S gay-Medrol 20 mg q.12 hours, Tylenol on a p.r.n. basis, Xanax 0.5 mg daily q.i.d. p.r.n., Xopenex inh aled q.i.d. p.r.n., Zofran on a p.r.n. basis. LABORATORY DATA: Shows sodium 139, potassium 4.3, chloride 102, bicarbonate 28, BUN 48, creatinine 1 .5, glucose 116, calcium is 8.5. MICROBIOLOGY: Blood culture, urine culture, there is no growth. IMPRESSION AND PLAN: Chronic obstructive lung disease, bronchiectasis, gastroesophageal reflux disea se, anxiety disorder, hypertension, diabetes, nicotine dependent, history of breast cancer. Pulmonar y point of view, doing okay. Continue bronchodilator. Keep head elevated at 45 degree. Gastric pro phylaxis. Deep venous thrombosis prophylaxis. Fall precaution. Continue IV fluids. Follow up elec mason in the morning. Thank you and will follow with you. Lisa Rucker MD cc: [phone] TT: 08/27/2016 19:12:11 Confirmation # [id number] Dictation # [id number] dn
[2016-08-28] MEDS: Insulin Reg-LOW-Coverage SC SCH ×5 (02:49→22:34)
[2016-08-28] MEDS: Arformoterol 15 mcg/2 ml Inh Sol IH SCH ×2 (07:17→22:25)
[2016-08-28] MEDS: Budesonide 0.5 mg/2 ml Inhal Susp UD IH SCH ×2 (07:17→22:29)
[2016-08-28] MEDS: Levalbuterol 1.25 MG/3 ML Inhal Soln UD IH SCH ×4 (07:18→22:29)
--- NOTE | 2016-08-28 07:51 | PN ---
DATE: 08/27/2016 The patient clinically stable. Feels better. No chest pain, no shortness of breath. Going to the b athroom normal. Urinating normal. Seen by Dr. Pa, urology. PHYSICAL EXAMINATION: VITAL SIGNS: Temperature 97.7, heart rate 87, blood pressure 126/56, respirations 20, saturation 95% on room air. HEAD AND NECK: Normal. No JVD. No thyromegaly. CHEST: Clear, good air entry. CARDIAC: First sound, second sound normal. ABDOMEN: Soft, nontender. EXTREMITIES: No edema. NEUROLOGIC: Normal. LABORATORY DATA: The patient had repeat chemistry which showed sodium 139, potassium 5.3, chloride 1 02, bicarb 28, BUN 48, creatinine 1.5, blood sugar of 116. IMPRESSION AND PLAN: 1. Acute kidney failure, improving. Creatinine went down from 1.9 to 1.5. Continue IV therapy. Fo llow up with urologist and steel pourer helper. 2. Diabetes, uncontrolled. Continue increased insulin. Follow up clinically. Continue insulin cov erage. 3. Acute chronic obstructive pulmonary disease exacerbation, improving. Continue steroids. Continu e inhaled bronchodilator. She is off antibiotics. Seems to be doing well. 4. Chronic back pain, chronic anxiety. Continue Xanax, oxycodone. 5. History of breast cancer, stable at this time. The patient will be getting chemotherapy soon. C ontinue Nicoderm patch. Continue GI and DVT prophylaxis. Follow up clinically. Sloan Sosa MD cc: 223 TT: 08/28/2016 07:50:41 Confirmation # [id number] Dictation # [id number] mn
[2016-08-28 08:15] VITALS: RESP 20
--- NOTE | 2016-08-28 09:45 | PN ---
DATE: 08/28/2016 SUBJECTIVE: The patient is currently seen sitting at the side of her bed in the room in the early mo rning hours. She is asking me when she can go home. She continues on potassium free IV fluids. Her potassium level has dropped to 5.3 on yesterday's labs. Today's labs are pending. MEDICATIONS: Medication list reviewed. The patient is on Brovana, insulin, Lovenox, Nicoderm, Pepci d, Protonix, Pulmicort, Singulair, half normal saline 100 mL an hour, Solu-Medrol, Tylenol, Xanax, Xo penex, and Zofran p.r.n. OBJECTIVE: INTAKE AND OUTPUT: Intake 1320, output not charted. VITAL SIGNS: Blood pressure 137/66, temperature 98.2, respiratory rate 22 with a pulse of 93. HEENT: Normocephalic, atraumatic. Conjunctivae are pink. Sclerae are nonicteric. NECK: Supple. No neck vein distention. CHEST: Clear to auscultation and percussion with decreased breath sounds at the right base with scat tered rhonchi. She has a port in her right upper chest wall. CARDIOVASCULAR: S1, S2 are regular. No murmurs, rubs, or gallops. ABDOMEN: Soft. Bowel sounds normal. No rebound, no guarding, no masses. EXTREMITIES: Show no lower extremity cyanosis, clubbing, or edema. LABORATORY DATA AND IMAGING: CBC is pending from today. Last white blood cell count was 11.0 with h emoglobin of 12.5. Chemistries from yesterday show a sodium 139, potassium 5.3 - down from 5.8, chlo ride 102, CO2 of 28, BUN 48 with a creatinine of 1.5. Her baseline BUN is in the 30s with a baseline creatinine of 1.2 dating back to 2016. Her glucose was 116 and stable. ASSESSMENT: 1. Acute renal failure, prerenal azotemia, possibly secondary to volume depletion on admission, supe rimposed on chronic kidney disease stage II. Of note, the patient is on steroids, which are likely e levating her BUN in a prerenal fashion. 2. Mild hyperkalemia, treated successfully with removal of potassium from her IV fluids, and Kayexal ate x 1 dose. 3. History of chronic obstructive pulmonary disease, history of bronchiectasis and possible pneumoni a. The patient appears to have completed a course of antibiotic therapy. 4. History of non-insulin dependent diabetes mellitus. The patient will continue sliding scale insu stephanie. She is also at present on long-acting insulin. Glucose control on steroids has been more diffi cult to control. 5. History of breast cancer, currently stable. PLAN: 1. Continue to monitor accurate I's and O's. 2. Continue to monitor labs on a daily basis. Hoping to see return of her BUN and creatinine back to baseline with normalization of her electrolyte s in the next 24-48 hours. Discharge planning, as per Dr. Sosa. Jared Beatty MD cc: [id number] TT: 08/28/2016 09:45:36 Confirmation # [id number] Dictation # [id number] jn
[2016-08-28] MEDS: Insulin Regular 1 UNITS/0.01 ML ML SC SCH ×3 (10:42→16:27)
[2016-08-28] MEDS: Pantoprazole 40 mg EC Tab PO SCH (10:43)
[2016-08-28] MEDS: Enoxaparin 30 mg Syringe SC SCH (10:44)
[2016-08-28] MEDS: MethylPREDNISolone 40 mg Vial IVP SCH ×2 (10:44→21:27)
[2016-08-28] MEDS: Insulin Detemir 100 units/ml Vial (Levemir) SC SCH ×2 (10:46→20:02)
[2016-08-28 11:32] LABS: CALCIUM 8.2 mg/dL (8.4-10.5); POTASSIUM 4.9 mmol/L (3.6-5.0)
[2016-08-28] MEDS: Sodium Chloride 0.45% 1,000 ML IV SCH (16:23)
[2016-08-28] MEDS: Oxycodone/Acetaminophen 5/325 mg Tab PO PRN (16:29)
--- NOTE | 2016-08-28 18:13 | PN ---
DATE: 08/28/2016 REFERRING PHYSICIAN: Dr. Sosa. SUBJECTIVE: She is lying in the bed. Family is at bedside. Wants Percocet. Complaining about pain . No headache, no rhinitis, no nausea, no vomiting, no diarrhea, no leg pain or leg swelling. OBJECTIVE: GENERAL: No acute distress. VITAL SIGNS: Temperature is 98, heart rate is 87, respiratory rate is 20, blood pressure 137/62, pul se ox 94% on room air. HEENT: Moist mucous membrane. No ulcer or oral thrush noted. NECK: Supple. No JVD. LUNGS: Have a fair airflow with few rhonchi. HEART: S1 and S2. ABDOMEN: Soft, nontender. No organomegaly. EXTREMITIES: There is not much edema. NEUROLOGIC: Awake, alert, follows simple commands. MEDICATIONS: She is on Brovana 15 mcg inhaled twice a day, insulin coverage, Levemir 12 units subQ t wice a day, Lovenox 30 mg subQ daily, Nicoderm patch daily, Pepcid 20 mg daily, Percocet 5/325 one ta b q. 6 hours p.r.n., Protonix 40 mg daily, Pulmicort inhaled twice a day, Singulair 10 mg daily, IV f luid, half normal saline 100 mL per hour, Solu-Medrol 20 mg q. 12 hours, Tylenol on a p.r.n. basis, X anax 0.5 mg q.i.d. p.r.n., Xopenex inhaler q.i.d., Zofran on a p.r.n. basis. LABORATORY DATA: Shows sodium 137, potassium 4.9, chloride 100, bicarbonate 28, BUN is 57, creatinin e 1.5, glucose is 92, calcium is 8.2. Microbiology: Blood cultures, urine culture is no growth. IMPRESSION AND PLAN: Chronic obstructive lung disease, bronchiectasis, gastroesophageal reflux disea se, anxiety disorder, hypertension, diabetes, nicotine dependence, cancer. Pulmonary point of view, continue p.o. and inhaled bronchodilator. Keep head elevated at 45 degrees. Antibiotics, gastric pr ophylaxis, deep venous thrombosis prophylaxis. Fall precautions. Pain management. Will follow with you. Lisa Rucker MD cc: [phone] TT: 08/28/2016 18:12:36 Confirmation # [id number] Dictation # [id number] rn
--- NOTE | 2016-08-29 01:19 | PN ---
DATE: 08/28/2016 SUBJECTIVE: The patient clinically better. IV fluids. Creatinine still elevated, seen by the urolo gist, Dr. Pa. Breathing is better. Still on IV steroids. Otherwise, patient is stable, no vom iting, no diarrhea. PHYSICAL EXAMINATION: VITAL SIGNS: Temperature is 98.2, heart rate 93, blood pressure 137/66, respirations 22, saturation 92% on room air. HEAD AND NECK: Normal. No JVD, no thyromegaly. CHEST: Clear, diminished breath sounds. CARDIAC: First and second sounds are normal. ABDOMEN: Soft, obese, nontender. EXTREMITIES: No edema. NEUROLOGIC: Normal. LABORATORY DATA: Today shows sodium 137, potassium 4.9, chloride 100, bicarb 28, BUN 57, creatinine 1.5. Calcium 8.2, blood sugar 92. IMPRESSION AND PLAN: 1. Acute , improved, still needs further evaluations whether has to do with her hydronephrosis. Will discuss with the other consultants. Continue IV fluids. 2. Acute chronic obstructive pulmonary disease exacerbation. Continue IV steroids. Continue inhale d bronchodilators. The patient seems to be doing better. 3. Breast cancer, stable. 4. Diabetes. Continue insulin coverage. Continue 4 units of insulin before meals and Levemir 12 un its twice a day. Continue Nicoderm for nicotine addictions. 5. Chronic back pain, spine disease, chronic anxiety. Continue Xanax and oxycodone. Will follow up clinically. Sloan Sosa MD cc: 223 TT: 08/29/2016 01:17:43 Confirmation # [id number] Dictation # [id number] mn
[2016-08-29 07:04] LABS: HEMATOCRIT 38.4 % (36.0-48.0); MEAN CELL VOLUME 93.4 fL (80.0-105.0); MEAN CORPUSCULAR HEMOGLOBIN 29.7 pg (25.0-35.0); MEAN CORPUSCULAR HGB CONC 31.8 g/dl (31.0-37.0); MEAN PLATELET VOLUME 10.7 fl (7.0-11.0); WHITE BLOOD COUNT 10.6 10^3/ul (4.5-11.0)
[2016-08-29 07:14] LABS: ALB/GLOB RATIO 1.3 (1.1-1.8); BILIRUBIN,TOTAL 0.2 mg/dL (0.2-1.3); CALCIUM 8.2 mg/dL (8.4-10.5); PHOSPHOROUS 5.4 mg/dL (2.5-4.5); POTASSIUM 5.2 mmol/L (3.6-5.0); TOTAL PROTEIN 5.8 g/dL (5.8-8.3)
[2016-08-29] MEDS: Budesonide 0.5 mg/2 ml Inhal Susp UD IH SCH (07:46)
[2016-08-29] MEDS: Arformoterol 15 mcg/2 ml Inh Sol IH SCH (07:46)
[2016-08-29] MEDS: Levalbuterol 1.25 MG/3 ML Inhal Soln UD IH SCH ×2 (07:47→11:25)
[2016-08-29] MEDS: Oxycodone/Acetaminophen 5/325 mg Tab PO PRN (08:00)
[2016-08-29] MEDS: Insulin Reg-LOW-Coverage SC SCH ×3 (08:51→16:47)
[2016-08-29] MEDS: Pantoprazole 40 mg EC Tab PO SCH (08:54)
[2016-08-29] MEDS: Insulin Regular 1 UNITS/0.01 ML ML SC SCH ×3 (08:54→16:47)
--- NOTE | 2016-08-29 09:00 | PN ---
DATE: 08/26/2016 ____. The patient clinically better. Stable ____ creatinine ____. PHYSICAL EXAMINATION: As follows: VITAL SIGNS: Temperature ____, heart rate 88, blood pressure of 128/69, respirations 20, saturation ____%. HEAD AND NECK: Normal. No JVD, no thyromegaly. CHEST: ____ but clear. CARDIAC: First sound, second sound normal. ABDOMEN: Soft, nontender. EXTREMITIES: No edema. NEUROLOGICAL: ____. LABORATORY DATA: On 08/26, white count 11, hemoglobin 12.5, hematocrit 39.4, platelets 296. Analytics Leader ry: Sodium 137, potassium ____, chloride ____, bicarb 29. BUN ____, creatinine 1.5. Blood sugar __ __. Calcium 8.3. Liver function test is normal. IMPRESSION AND PLAN: 1. Acute renal failure, etiology unclear. Ultrasound shows hydronephrosis, ____. Starting intraven ous fluids on the patient. Repeat lab in the morning. Follow up with a nephrology consult and urolo gy consults, ____. 2. Chronic obstructive pulmonary disease with acute exacerbation. Stable, better ____. Continue cu rrent therapy. Continue steroids. ____. 3. Diabetes. We will increase ____ insulin. The patient seems ____. 4. The patient ____. Follow up with ____. 5. Chronic ____ with chronic ____. Follow up clinically. Continue gastrointestinal and dep venous thrombosis prophylaxis. Repeat ____ in the morning. ____. Sloan Sosa MD cc: 223 TT: 08/28/2016 07:52:51 Confirmation # [id number] Dictation # [id number] sn
[2016-08-29] MEDS: Insulin Detemir 100 units/ml Vial (Levemir) SC SCH (10:26)
[2016-08-29] MEDS: Enoxaparin 30 mg Syringe SC SCH (10:27)
[2016-08-29] MEDS: MethylPREDNISolone 40 mg Vial IVP SCH (10:27)
--- NOTE | 2016-08-29 15:39 | PCM.URO ---
Urology Progress Note - Objective Lab Results Last 24 Hours: Laboratory Results - last 24 hr 08/28/16 08/28/16 08/29/16 16:06 21:20 06:20 WBC 10.6 RBC 4.11 Hgb 12.2 Hct 38.4 MCV 93.4 MCH 29.7 MCHC 31.8 RDW 15.0 H Plt Count 297 MPV 10.7 Sodium Potassium Chloride Carbon Dioxide Anion Gap BUN Creatinine Est GFR ( Amer) Est GFR (Non-Af Amer) POC Glucose (mg/dL) 275 H 197 H Random Glucose Calcium Phosphorus Magnesium Total Bilirubin AST ALT Alkaline Phosphatase Total Protein Albumin Globulin Albumin/Globulin Ratio 08/29/16 08/29/16 08/29/16 06:20 07:47 11:45 WBC RBC Hgb Hct MCV MCH MCHC RDW Plt Count MPV Sodium 138 Potassium 5.2 H Chloride 104 Carbon Dioxide 26 Anion Gap 13 BUN 67 H Creatinine 1.5 H Est GFR ( Amer) 43 Est GFR (Non-Af Amer) 36 POC Glucose (mg/dL) 134 H 66 Random Glucose 141 H Calcium 8.2 L Phosphorus 5.4 H Magnesium 2.0 Total Bilirubin 0.2 AST 18 ALT 47 Alkaline Phosphatase 56 Total Protein 5.8 Albumin 3.3 Globulin 2.5 Albumin/Globulin Ratio 1.3 Intake & Output: Intake & Output 08/28/16 08/29/16 08/29/16 18:59 06:59 18:59 Intake Total 780 1160 1020 Output Total 2 Balance 780 1160 1018 Intake: Oral 780 1160 1020 Output: Stool 2 Other: Voiding Method Toilet Toilet Toilet # Voids Urine, Voided 3 3 # Bowel Movements 0 3 Vital Signs: Vital Signs - 24 hr 08/28/16 08/29/16 16:00 08:00 Temperature 98.2 F 98.0 F Pulse Rate 87 77 Respiratory 20 20 Rate Blood Pressure 137/62 140/62 O2 Sat by Pulse 94 L 94 L Oximetry
[2016-08-29 16:16] VITALS: BP 147/62; PULSE 91; TEMP 97.9; O2SAT 92
--- NOTE | 2016-08-29 16:28 | PN ---
DATE: 08/29/2016 SUBJECTIVE: The patient is seen sitting in chair. She is awake. She is alert. She is comfortable. She is complaining of shortness of breath. She also is complaining of pain in her legs. PHYSICAL EXAMINATION: GENERAL: Middle-aged lady lying in bed. VITAL SIGNS: Blood pressure 140/62, heart rate 77, respiratory rate 20, temperature 98.0. HEENT: Normocephalic, atraumatic. NECK: Supple. No JVD. LUNGS: Bilateral rhonchi, scattered wheeze. CARDIAC: S1, S2, regular rate and rhythm. No murmur, no rub. ABDOMEN: Obese, distended, soft, nontender. Bowel sounds present. EXTREMITIES: No lower extremity edema. INTAKE AND OUTPUT: 1940/not charted. LABORATORY DATA: WBC 10.6, hemoglobin 12.2, hematocrit 38, platelets 297. Sodium 138, potassium 5.2 , chloride 104, CO2 of 26, BUN 67, creatinine 1.5. Glucose 141. Calcium 8.2, phosphorus 5.4, magnes ium 2.0. CURRENT MEDICATIONS: Brovana, insulin, Lovenox, Pepcid, Tylenol, Singulair, Solu-Medrol, Tylenol, Xa nax, Xopenex. ASSESSMENT: 1. Acute kidney injury. 2. Hyperkalemia, mild. 3. Chronic obstructive pulmonary disease, bronchiectasis. 4. Breast cancer. PLAN: 1. Discontinue IV fluids. 2. Push p.o. intake. 3. Educate on 2-gram potassium diet. 4. Continue bronchodilator/respiratory treatments. 5. No objection to discharge from the renal standpoint. Lula Hurd MD cc: [phone] TT: 08/29/2016 13:45:58 Confirmation # [id number] Dictation # [id number] stacie 08/29/2016 15:28:00
--- NOTE | 2016-08-29 20:04 | CON ---
DATE: 08/29/2016 UROLOGY CONSULTATION REASON FOR CONSULTATION: Infection. The patient is a very pleasant lady, 55 years old. She is in the hospital under the care of Dr. Jose Alfredo guo. She occasionally gets intermittent colic and pain. She has apparently had some recurrent infections of late. I had seen her previously in the office. Of late, she has not been following up on a regular basis in the office. We do have a CT scan that shows some renal cysts, see the plan listed below, but nothing new acutely right now for urology. The question is if there is any form of urinary tract infection now and that is what we are being consulted for. PAST MEDICAL AND SURGICAL HISTORY: As listed above. A patient of Dr. Sosa. REVIEW OF SYSTEMS: As listed above, noncontributory. PHYSICAL EXAMINATION: GENERAL: Well-nourished female who is currently resting comfortably in the bed. ABDOMEN: Relatively soft. There is no real CVA tenderness. LABORATORIES: See chart. White count is noted. BUN and creatinine noted. Cultures are presumably pending. The CT scan again is noted to have some right pleural thickening. There is no obvious mention of any definite stones. DIAGNOSES: 1. Possible stones, although there is no evidence right now by CT scan. 2. Abdominal pain and flank pain. PLAN IS FOLLOWS: From a urology standpoint, we will check a urine culture. We will monitor the p atient, will encourage time voiding and then we will discuss other options with the patient including further repeat diagnostic studies and workup. We discussed timing for those. In the meantime as follows: The patient is on antibiotics. We will observe the patient and make fur ther recommendations . Jax Pa MD cc: [phone] TT: 08/29/2016 20:03:29 Confirmation # [id number] Dictation # [id number] frank
--- NOTE | 2016-08-30 01:56 | PN ---
DATE: 08/29/2016 REFERRING PHYSICIAN: Dr. Sosa. SUBJECTIVE: The patient sitting at the side of the bed, night was unremarkable. No headache, no rhi nitis, no nausea, no vomiting, diarrhea. No leg pain or leg swelling. OBJECTIVE: GENERAL: No acute distress. VITAL SIGNS: Temp is 98, heart rate is 91, respiratory rate is 20, blood pressure 147/62, pulse ox 9 2% on room air. HEENT: Moist mucous membranes. No ulcer or oral thrush noted. NECK: Supple. No JVD. LUNGS: Has a fair airflow with few rhonchi. HEART: S1 and S2. ABDOMEN: Soft, nontender. No organomegaly. EXTREMITIES: There is no edema. NEUROLOGIC: Awake, alert, follows simple commands. MEDICATIONS: Reviewed and noted. No new changes in medication since yesterday. LABORATORY DATA: Shows hemoglobin 12.2, hematocrit 38.4, WBC 10.6, platelet is 297. Sodium 138, pot assium 5.2, chloride 104, bicarbonate 26, BUN 67, creatinine 1.5, glucose 141, calcium 8.2, phosphoru s 5.4, magnesium 2.0. Total bilirubin 0.2. AST 18, ALT 47, alkaline phosphatase is 56. Albumin is 3.3. MICROBIOLOGY: Blood culture, urine culture, there is no growth. IMPRESSION AND PLAN: Chronic obstructive lung disease, bronchiectasis, gastroesophageal reflux disea se, anxiety disorder, hypertension, diabetes, nicotine dependence, breast cancer. Pulmonary point of view, she is doing well. Sequential bronchodilator. Keep head elevated at 45 degree. Gastric prop hylaxis. DVT prophylaxis. Aspiration precaution, urology and oncology followup. Lisa Rucker MD cc: [phone] TT: 08/30/2016 01:55:57 Confirmation # [id number] Dictation # [id number] mn
--- NOTE | 2016-09-01 13:31 | PN ---
DATE: 08/29/2016 See the consultation note from 08/26. The patient is currently resting comfortably. Results are noted in the chart. The patient says she is feeling better. PAST MEDICAL AND SURGICAL HISTORY: No other changes. PHYSICAL EXAMINATION: GENERAL: Well-nourished female, in no apparent distress. VITAL SIGNS: Within normal limits included in chart. DIAGNOSIS: 1. Urinary tract infection, resolving now. This is a very pleasant 55-year-old lady. I had discussed with her use of narcotics, etc. I also di scussed with her the role for coming into the office and the possibility for using medications and pr ophylactic antibiotics, etc. After discussing those options, I am hoping the patient will come back to the office. Jax Pa MD cc: 429 TT: 09/01/2016 09:40:30 Confirmation # [id number] Dictation # [id number] mn
--- NOTE | 2016-09-01 13:51 | CON ---
DATE: 08/26/2016 The patient was admitted to the hospital. See history and physical. REASON FOR CONSULTATION: UTI. The patient is a pleasant lady. She was admitted to the hospital 08/20 under the care of Dr. Sosa. She is 55 years old. I had not seen her recently. She is very pleasant, but not a perfectly complian t patient. She comes in when she has pain, usually seeking out some pain medications with sometimes the underlying diagnosis of a "UTI." Of late, I have not been seeing the patient. The patient is now under the care of Dr. Sosa. Urology consulted for UTI and some pain. See the plans below. PAST MEDICAL AND SURGICAL HISTORY: No history of an [place] or CVA. No other major. She has not been in the office recently, but used to come with her and daughter. MEDICATIONS: See the chart. ALLERGIES: See the chart. PHYSICAL EXAMINATION: GENERAL: A well-nourished female in no apparent distress. VITAL SIGNS: appreciated. DIAGNOSES: Possible urinary tract infection, hematuria and back pain. I discussed options with the patient. We are going to get some imaging of the patient. I will talk to Dr. Sosa. I also encouraged the patient to have some outpatient followup for routine measures to keep adrianne luation on the kidneys, bladder, etc. Thank you for the urology consultation. Jax Pa MD cc: [phone] TT: 09/01/2016 13:50:54 Confirmation # [id number] Dictation # [id number] brandt
--- NOTE | 2016-09-01 21:28 | DS ---
SUBJECTIVE: The patient is stable. No new complaint. Her COPD stabilized. Kidney function improve d. The patient clinically stable and ready for discharge. No nausea, no vomiting, no respiratory di stress. discharge for 08/29/2016. PHYSICAL EXAMINATION: VITAL SIGNS: Temperature 97.9, heart rate 91, blood pressure 147/62, respirations 20, saturation 94% on room air. HEAD AND NECK: Normal. No JVD, no thyromegaly. CHEST: Clear, good entry. CARDIAC: First and second sounds are normal. ABDOMEN: Soft, nontender. EXTREMITIES: No edema. NEUROLOGIC: Normal. LABORATORY STUDIES: Shows white count 10.6, hemoglobin 12.2, hematocrit 38.4, platelets 297. Chemis try shows sodium 138, potassium 5.2, chloride 104, bicarbonate 26, BUN 67, creatinine 1.5, blood suga r 141, calcium 8.2, phosphorus 5.4. Liver function test is normal. PT, PTT were normal. Urinalysis shows some white blood cells and also urinary tract too numerous to count. During the hospitalizati on, the patient had a urine culture which shows negative, no growth. She has blood cultures x 2, whi ch show no growth. IMPRESSION: The patient was treated for acute chronic obstructive pulmonary disease exacerbation and gastroenteritis and renal insufficiency. She was consulted by Dr. Hurd, who will see her and mauro w up with her. She also was seen by Dr. Pa as a consult for her hydronephrosis of kidney. Other macario, the patient was stable. I mentioned again urinalysis, culture were negative and labs as mentneel abril before. DISCHARGE DIAGNOSES: 1. Acute chronic obstructive pulmonary disease exacerbation. The patient was given a Z-Patrick and Medr ol patrick. 2. Chronic neck pain, chronic osteoarthritis and chronic anxiety. The patient was given Xanax and P ercocet 5/325 on discharge. 3. Diabetes, insulin-dependent. Continue her insulin, Levemir 12 units b.i.d. 4. Chronic obstructive pulmonary disease. Continue Z-Patrick, Medrol patrick, including inhaled bronchodila tors and nebulizer machine. 5. Breast carcinoma. 6. Renal insufficiency, acute worsening. PLAN: Discussed with Dr. Hurd. We will monitor as outpatient. Creatinine on discharge is 1.5, whi ch is better than before from to 1.8 and 1.9. Maximum it went up to 1.9, now 1.5. Continue hydration , encouraged p.o. intake and will follow up as outpatient. Sloan Sosa MD cc: 223 TT: 09/01/2016 21:27:36 ln
== END 2016-08-29 17:20 | disposition home or self-care (01) | DRG 584 ==
LOC: ED 15:08 → ERH 18:02 → 5RSO 19:23
PROVIDERS: ADMIT Internal Medicine; ATTEND Internal Medicine
DX: A41.9 Sepsis, unspecified organism (principal); J18.9 Pneumonia, unspecified organism; E87.3 Alkalosis; J90 Pleural effusion, not elsewhere classified; N17.9 Acute kidney failure, unspecified; K31.84 Gastroparesis; J44.0 Chronic obstructive pulmonary disease with (acute) lower respiratory infection; E11.43 Type 2 diabetes mellitus with diabetic autonomic (poly)neuropathy; J47.0 Bronchiectasis with acute lower respiratory infection; N18.3 Chronic kidney disease, stage 3 (moderate); E11.22 Type 2 diabetes mellitus with diabetic chronic kidney disease; E11.65 Type 2 diabetes mellitus with hyperglycemia; E87.5 Hyperkalemia; E87.6 Hypokalemia; J44.1 Chronic obstructive pulmonary disease with (acute) exacerbation; N13.30 Unspecified hydronephrosis; N39.0 Urinary tract infection, site not specified; E86.0 Dehydration; I12.9 Hypertensive chronic kidney disease with stage 1 through stage 4 chronic kidney disease, or unspecified chronic kidney disease; F17.210 Nicotine dependence, cigarettes, uncomplicated; F41.9 Anxiety disorder, unspecified; G89.29 Other chronic pain; J31.0 Chronic rhinitis; K21.9 Gastro-esophageal reflux disease without esophagitis; K44.9 Diaphragmatic hernia without obstruction or gangrene; K52.9 Noninfective gastroenteritis and colitis, unspecified; K59.00 Constipation, unspecified; K80.20 Calculus of gallbladder without cholecystitis without obstruction; M47.9 Spondylosis, unspecified; N28.1 Cyst of kidney, acquired; R13.10 Dysphagia, unspecified; Z79.4 Long term (current) use of insulin; Z79.899 Other long term (current) drug therapy; Z80.0 Family history of malignant neoplasm of digestive organs; Z92.21 Personal history of antineoplastic chemotherapy; Z87.440 Personal history of urinary (tract) infections; Z91.19 Patient's noncompliance with other medical treatment and regimen; Z92.3 Personal history of irradiation; M19.90 Unspecified osteoarthritis, unspecified site; Z88.1 Allergy status to other antibiotic agents; Z88.8 Allergy status to other drugs, medicaments and biological substances; M48.56XD Collapsed vertebra, not elsewhere classified, lumbar region, subsequent encounter for fracture with routine healing; R16.0 Hepatomegaly, not elsewhere classified; Z17.0 Estrogen receptor positive status [ER+]; C50.912 Malignant neoplasm of unspecified site of left female breast; R10.9 Unspecified abdominal pain; M54.9 Dorsalgia, unspecified; K21.0 Gastro-esophageal reflux disease with esophagitis; M54.2 Cervicalgia

== ENCOUNTER 2016-09-19 14:30 | Inpatient (IN) | payer MEDICAID ==
[2016-09-19] MEDS ORDERED: Albuterol-Ipratrop 3 mg / 0.5 (3 ml) UD ONE (14:38)
[2016-09-19 14:45] VITALS: BMI 25.7
[2016-09-19] MEDS ORDERED: Albuterol-Ipratrop 3 mg / 0.5 (3 ml) UD IH STA (14:46)
--- NOTE | 2016-09-19 14:46 | ED PDOC ---
Arrival/HPI - General Time Seen by Provider: 09/19/16 14:36 Historian: Patient - History of Present Illness Narrative History of Present Illness (Text): 09/19/16 14:43 55 year old female whose past medical history includes COPD and asthma presents to the emergency department with shortness of breath for the past two days. Patient reports to taking albuterol pump at home with minimal relief. Patient arrived by ALS, given nebulizers, magnesium sulfate and solumedrol prior to arrival. Patient was placed on bipap. She states her leg swelling is not worse than usual. Patient has a chronic cough but denies any chest pain, fevers or any other complaints at this time. Patient has an extensive COPD and CHF history. Denies any recent travels. PMD: Dr. Sosa Time/Duration: < week Symptom Onset: Gradual Symptom Course: Unchanged Context: Home Past Medical History - Provider Review Nursing Documentation Reviewed: Yes - Infectious Disease Hx of Infectious Diseases: None - Tetanus Immunization Tetanus Immunization: Unknown - Cardiac Hx Cardiac Disorders: Yes Hx Hypertension: Yes Hx Peripheral Edema: Yes (b/l ankle +1) - Pulmonary Hx Respiratory Disorders: Yes (cough) Hx Asthma: Yes Hx Bronchitis: Yes Hx Chronic Obstructive Pulmonary Disease (COPD): Yes Hx Emphysema: Yes Hx Pneumonia: Yes - Neurological Hx Neurological Disorder: No - HEENT Hx HEENT Disorder: Yes ([place] left ear) - Renal Hx Renal Disorder: No (HYDRONEPHROSIS) Hx Kidney Stones: Yes - Endocrine/Metabolic Hx Endocrine Disorders: Yes Hx Diabetes Mellitus Type 2: Yes - Hematological/Oncological Hx Blood Disorders: Yes Hx Cancer: Yes (breast cancer left dx 06/2015) Hx Chemotherapy: Yes - Integumentary Hx Dermatological Disorder: Yes Other/Comment: multiple age spots to back, small white areas of skin to left arm , ble skin discolorations, reddened buttock and eleanor red areas of skin to lower r and left buttock - Musculoskeletal/Rheumatological Hx Musculoskeletal Disorders: Yes Hx Arthritis: Yes Hx Back Pain: Yes Hx Falls: Yes (past) Hx Herniated Disk: Yes (lower back) Hx Unsteady Gait: Yes - Gastrointestinal Hx Gastrointestinal Disorders: Yes Hx Gastroesophageal Reflux: Yes - Genitourinary/Gynecological Hx Genitourinary Disorders: Yes (PELVIC MASS) Hx Urinary Tract Infection: Yes - Psychiatric Hx Psychophysiologic Disorder: Yes Hx Anxiety: Yes Hx Substance Use: No - Past Surgical History Past Surgical History: Non-Contributing - Surgical History Other/Comment: left breast bx 07/01/15, umbilical hernia repair, c section x 2 extopic , excision of abd tumor, rcw pac - Anesthesia Hx Anesthesia Reactions: No Hx Malignant Hyperthermia: No - Suicidal Assessment Feels Threatened In Home Enviroment: No Family/Social History - Physician Review Nursing Documentation Reviewed: Yes Family/Social History: Unknown Family HX Smoking Status: Heavy Smoker > 10 Cigarettes Daily Hx Alcohol Use: No Hx Substance Use: No Hx Substance Use Treatment: No Allergies/Home Meds Allergies/Adverse Reactions: Allergies levofloxacin [From Levaquin] Allergy (Verified 08/20/16 15:16) SHORTNESS OF BREATH;PARANOID nystatin Allergy (Verified 08/20/16 15:16) SWELLING Home Medications: Home Meds Medication Instructions Recorded Confirmed Montelukast [Singulair] 10 mg PO DAILY 04/16/12 09/19/16 Fenofibrate [Tricor] 54 mg PO DAILY 09/19/16 09/19/16 Salmeterol Xinafoate/Fluticaso 115 puff IH BID 09/19/16 09/19/16 [Advair Hfa 115/21] Review of Systems - Physician Review All systems were reviewed & negative as marked: Yes - Review of Systems Constitutional: absent: Fevers Respiratory: SOB, Cough Cardiovascular: absent: Chest Pain Physical Exam Vital Signs Reviewed: Yes Vital Signs Temp Pulse Resp BP Pulse Ox 09/19/16 16:45 114 H 28 H 160/76 H 91 L 09/19/16 16:00 110 H 26 H 146/86 97 09/19/16 15:00 112 H 26 H 180/88 H 98 09/19/16 14:40 98.2 F 116 H 29 H 160/79 H 98 Temperature: Afebrile Blood Pressure: Hypertensive Pulse: Tachycardic Respiratory Rate: Normal Appearance: Positive for: Well-Appearing, Non-Toxic, Comfortable Pain Distress: Other (mild to moderate) Mental Status: Positive for: Alert and Oriented X 3 - Systems Exam Head: Present: Atraumatic, Normocephalic Pupils: Present: PERRL Extroacular Muscles: Present: EOMI Conjunctiva: Present: Normal Mouth: Present: Moist Mucous Membranes Neck: Present: Normal Range of Motion Respiratory/Chest: Present: Wheezes (Bilateral expiratory wheeze), Rales (at bases bilaterally). No: Respiratory Distress, Accessory Muscle Use Cardiovascular: Present: Tachycardic. No: Murmurs Abdomen: Present: Normal Bowel Sounds. No: Tenderness, Distention, Peritoneal Signs Back: Present: Normal Inspection Upper Extremity: Present: Normal Inspection. No: Cyanosis, Edema Lower Extremity: Present: Edema (2+ pitting edema bilaterally) Neurological: Present: GCS=15, CN II-XII Intact Skin: Present: Warm, Dry, Normal Color. No: Rashes Psychiatric: Present: Alert, Oriented x 3, Normal Concentration Medical Decision Making ED Course and Treatment: Impression: 55 year old female whose past medical history includes COPD and asthma presents to the emergency department with shortness of breath for the past few days. Differential Diagnosis include but are not limited to: CHF vs. COPD exacerbation Plan: -- EKG -- Chest X-ray, Duoneb -- BIPAP -- Reassess and disposition Prior Visits: Notes and results from previous visits were reviewed. Patient last seen in ED on 08/20/16 for shortness of breath and admitted for COPD, Sepsis. Progress Notes: EKG: Ordered, reviewed, and independently interpreted the EKG. Rate : 111 BPM Rhythm : sinus tachycardic Interpretation : Normal intervals, normal axis 09/19/16 15:29 chest xray Creator : Champ Reilly MD IMPRESSION: No active disease. 09/19/16 16:45 On reevaluation, patient is doing better. Bipap removed, placed on nasal cannula. Will page Dr. Sosa. 09/19/16 18:42 Spoke to hospitalist and reviewed case. Will accept patient to his service on telemetry. - Critical Care Critical Care Minutes: 60 minutes - Lab Interpretations Lab Results: 09/19/16 14:50 09/19/16 14:50 Lab Results 09/19/16 15:10: pO2 57 H, VBG pH 7.20 L, VBG pCO2 67.0 H*, VBG HCO3 26.2, VBG Total CO2 28.3 H, VBG O2 Sat (Calc) 89.0 H, VBG Base Excess -3.3 L, VBG Potassium 4.2, Glucose 167 H, Lactate 1.5, FiO2 21.0, Sodium 139.0, Chloride 107.0, Venous Blood Potassium 4.2 09/19/16 14:50: Sodium 140, Potassium 4.0, Chloride 104, Carbon Dioxide 24, Anion Gap 16, BUN 19, Creatinine 1.5 H, Est GFR ( Amer) 43, Est GFR (Non- Af Amer) 36, Random Glucose 159 H, Calcium 8.6, Total Bilirubin 0.4, AST 20, ALT 24, Alkaline Phosphatase 134 H, Lactate Dehydrogenase 420, Total Creatine Kinase 66, Troponin I < 0.01, NT-Pro-B Natriuret Pep 928 H, Total Protein 7.2, Albumin 3.9, Globulin 3.3, Albumin/Globulin Ratio 1.2 09/19/16 14:50: WBC 7.7 D, RBC 4.19, Hgb 12.5, Hct 39.2, MCV 93.6, MCH 29.8, MCHC 31.9, RDW 15.4 H, Plt Count 456 H, MPV 9.6, Gran % 54.3, Lymph % (Auto) 37.0 H, Hughes % (Auto) 6.9 H, Eos % (Auto) 1.4 L, Baso % (Auto) 0.4, Gran # 4.20 , Lymph # 2.9, Hughes # 0.5, Eos # 0.1, Baso # 0.03 I have reviewed the lab results: Yes - RAD Interpretation Radiology Orders: 09/19/16 14:46 CHEST PORTABLE [RAD] Stat - EKG Interpretation Interpreted by ED Physician: Yes Type: 12 lead EKG - Medication Orders Current Medication Orders: Discontinued Medications Albuterol/Ipratropium (Duoneb 3 Mg/0.5 Mg (3 Ml) Ud) Confirm Administered Dose 9 ml .ROUTE .STK-MED ONE Stop: 09/19/16 14:39 Last Admin: 09/19/16 15:28 Dose: Albuterol/Ipratropium (Duoneb 3 Mg/0.5 Mg (3 Ml) Ud) 3 ml IH STAT STA Stop: 09/19/16 14:47 Last Admin: 09/19/16 14:40 Dose: 3 ml Alprazolam (Xanax) 0.5 mg PO STAT STA PRN Reason: Protocol Stop: 09/19/16 17:32 Last Admin: 09/19/16 18:07 Dose: 0.5 mg - Scribe Statement The provider has reviewed the documentation as recorded by the Rafa Pelayo Provider Scribe Attestation: All medical record entries made by the Rafa were at my direction and personally dictated by me. I have reviewed the chart and agree that the record accurately reflects my personal performance of the history, physical exam, medical decision making, and the department course for this patient. I have also personally directed, reviewed, and agree with the discharge instructions and disposition. Disposition/Present on Arrival - Present on Arrival Any Indicators Present on Arrival: No History of DVT/PE: No History of Uncontrolled Diabetes: No Urinary Catheter: No History Surgical Site Infection Following: None - Disposition Have Diagnosis and Disposition been Completed?: Yes Diagnosis: COPD (chronic obstructive pulmonary disease) Disposition: HOSPITALIZED Disposition Time: 16:45 Patient Plan: Admission Condition: FAIR
[2016-09-19 15:23] LABS: VENOUS BLOOD GAS BASE EXCESS -3.3 mmol/L (0.0-2.0); VENOUS BLOOD GAS PO2 57 mm/Hg (30-55)
--- NOTE | 2016-09-19 15:26 | RAD ---
HISTORY: SOB COMPARISON: 08/20/2016 FINDINGS: LUNGS: The previous study showed atelectasis of the right lower lobe. This has resolved. The lungs are clear PLEURA: No significant pleural effusion identified, no pneumothorax apparent. CARDIOVASCULAR: Normal. OSSEOUS STRUCTURES: No significant abnormalities. VISUALIZED UPPER ABDOMEN: Normal. OTHER FINDINGS: None. IMPRESSION: No active disease.
[2016-09-19 15:28] LABS: BASO # 0.03 K/mm3 (0.0-2.0); BASO % 0.4 % (0.0-3.0); EOS # 0.1 (0.0-0.7); EOS % 1.4 % (1.5-5.0); GRAN % 54.3 % (50.0-68.0); HEMOGLOBIN 12.5 gm/dL (12.0-16.0); LYMPH # 2.9 (1.2-3.4); MEAN CELL VOLUME 93.6 fL (80.0-105.0); MEAN CORPUSCULAR HEMOGLOBIN 29.8 pg (25.0-35.0); MEAN CORPUSCULAR HGB CONC 31.9 g/dl (31.0-37.0); MEAN PLATELET VOLUME 9.6 fl (7.0-11.0); MONO # 0.5 (0.1-0.6); MONO % 6.9 % (1.0-6.0); PLATELET COUNT 456 10^3/uL (120.0-450.0); RBC 4.19 10^6/uL (3.5-6.1); RED CELL DISTRIBUTION WIDTH 15.4 % (11.5-14.5); WHITE BLOOD COUNT 7.7 10^3/ul (4.5-11.0)
[2016-09-19 15:29] LABS: ALB/GLOB RATIO 1.2 (1.1-1.8); ALBUMIN 3.9 g/dL (3.0-4.8); ALT/SGPT 24 U/L (7-56); AST/SGOT 20 U/L (15-39); BLOOD UREA NITROGEN 19 mg/dL (7-21); CALCIUM 8.6 mg/dL (8.4-10.5); GFR AFRICAN-AMERICAN 43; GFR NON-AFRICAN AMERICAN 36
[2016-09-19 15:41] LABS: B-TYPE NATRIURETIC PEPTIDE 928 pg/mL (0-450); TROPONIN I < 0.01 ng/mL
[2016-09-19 18:18] LABS: ARTERIAL BLOOD GAS HCO3 21.2 mmol/L (21-28); ARTERIAL BLOOD GAS HEMOGLOBIN 11.8 g/dL (11.7-17.4); ARTERIAL BLOOD GAS O2 CAPACITY 15.9 mL/dl (16-24); ARTERIAL BLOOD GAS O2 CONTENT 14.9 ML/dl (15-23); ARTERIAL BLOOD GAS O2 SAT 93.6 % (95-98); ARTERIAL BLOOD GAS PCO2 44 mm/Hg (35-45); ARTERIAL BLOOD GAS PH 7.29 (7.35-7.45); ARTERIAL BLOOD GAS TCO2 22.6 mmol.L (22-28)
[2016-09-19] MEDS ORDERED: Pneumococcal 23-Valent Vaccine IM ONE (20:03)
[2016-09-19] MEDS ORDERED: Albuterol-Ipratrop 3 mg / 0.5 (3 ml) UD IH PRN (23:36)
[2016-09-20] MEDS: MethylPREDNISolone 40 mg Vial IVP SCH ×3 (00:36→21:45)
[2016-09-20] MEDS: Albuterol-Ipratrop 3 mg / 0.5 (3 ml) UD IH SCH ×4 (01:13→20:38)
[2016-09-20] MEDS: Oxycodone/Acetaminophen 5/325 mg Tab PO PRN ×3 (04:06→21:45)
--- NOTE | 2016-09-20 06:15 | CP.PCM.HP ---
<RosannaNavdeep willett - Last Filed: 09/20/16 07:57> History of Present Illness - History of Present Illness History of Present Illness: 55 y/o female presents with a 2 day duration of sob with minor sputum production. Patient's daughter reports that yesterday around 4 PM, patient started acting peculiar, her lips started turning blue, and she was struggling to breathe. EMS was called and patient was given Mg Sulfate, Salumeterol, and Albuterol, which did not alleviate patient's symptoms. Patient was ultimately placed on bipap, which pulled her O2 stats from low 90s to upper 90s. Patient was then taken off of bipap and put on 4L O2 NC. Patient admits to cough, but denies fever, chills, nausea, vomiting, diarrhea, and hemoptysis. PSHx: 2 Csxns PMHx: COPD, IDDM, Arthritis, Breast CA, L sided diminished hearing, Renal Calculi, Herniated Disk, Asthma, Past PNA All: Levofloxacin, Nystatin SocHx: Denies illicits, denies etoh; admits 2-3ppd smoking X 43 years Hosp: 2-3X per year for COPD exacerbations FHx: HTN, Ca Meds: Reviewed Immun: Influenza Present on Admission - Present on Admission Any Indicators Present on Admission: No Review of Systems - Constitutional Constitutional: absent: Chills, Fever, Night Sweats - EENT Eyes: absent: Blurred Vision, Change in Vision, Diplopia Ears: Abnormal Hearing. absent: Ear Pain, Tinnitus Nose/Mouth/Throat: absent: Epistaxis, Nasal Congestion, Nasal Discharge - Breasts Breasts: Mass - Cardiovascular Cardiovascular: absent: Chest Pain, Chest Pain at Rest, Chest Pain with Activity - Respiratory Respiratory: As Per HPI - Gastrointestinal Gastrointestinal: absent: Abdominal Pain, Belching, Diarrhea, Nausea, Vomiting - Genitourinary Genitourinary: absent: Urinary Frequency, Urinary Hesitance, Voiding Freq/Small Amts - Musculoskeletal Musculoskeletal: Arthralgias. absent: Deformity, Joint Swelling, Limited Range of Motion - Integumentary Integumentary: Dry Skin. absent: Hirsutism - Neurological Neurological: absent: Abnormal Gait, Abnormal Speech, Confusion - Psychiatric Psychiatric: Anxiety, Irritability. absent: Hallucinations Past Patient History - Infectious Disease Hx of Infectious Diseases: None - Tetanus Immunizations Tetanus Immunization: Unknown - Past Medical History & Family History Past Medical History?: Yes - Past Social History Smoking Status: Heavy Smoker > 10 Cigarettes Daily - CARDIAC Hx Cardiac Disorders: Yes Hx Hypertension: Yes Hx Peripheral Edema: Yes (ble +1 edema pitting) - PULMONARY Hx Respiratory Disorders: Yes (cough) Hx Asthma: Yes Hx Bronchitis: Yes Hx Chronic Obstructive Pulmonary Disease (COPD): Yes Hx Emphysema: Yes Hx Pneumonia: Yes - NEUROLOGICAL Hx Neurological Disorder: No - HEENT Hx HEENT Problems: Yes ([place] left ear) Hx Cataracts: Yes - RENAL Hx Chronic Kidney Disease: No (HYDRONEPHROSIS) Hx Kidney Stones: Yes - ENDOCRINE/METABOLIC Hx Endocrine Disorders: Yes Hx Diabetes Mellitus Type 2: Yes - HEMATOLOGICAL/ONCOLOGICAL Hx Blood Disorders: Yes Hx Cancer: Yes (breast cancer left dx 06/2015) Hx Chemotherapy: Yes - INTEGUMENTARY Hx Dermatological Problems: Yes Other/Comment: multiple age spots to back, small white areas of skin to left arm , ble skin discolorations, reddened buttock and hard red areas of skin to lower r and left buttock,multiple scabs and dry discolored skin areas to both arms, poor hygeine dirty toes and elbows - MUSCULOSKELETAL/RHEUMATOLOGICAL Hx Falls: Yes (past falls) - GASTROINTESTINAL Hx Gastrointestinal Disorders: Yes (esophagitis/ pelvic mass) Hx Gastroesophageal Reflux: Yes - GENITOURINARY/GYNECOLOGICAL Hx Genitourinary Disorders: Yes (PELVIC MASS) Hx Urinary Tract Infection: Yes - PSYCHIATRIC Hx Psychophysiologic Disorder: Yes Hx Anxiety: Yes - SURGICAL HISTORY Other/Comment: left breast bx 07/01/15, umbilical hernia repair, c section x 2 extopic , excision of abd tumor, rcw pac, umbilical hernia repair - ANESTHESIA Hx Anesthesia Reactions: No Hx Malignant Hyperthermia: No Meds Allergies/Adverse Reactions: Allergies Allergy/AdvReac Type Severity Reaction Status Date / Time levofloxacin [From Levaquin] Allergy SHORTNESS Verified 08/20/16 15:16 OF BREATH;PARANOID nystatin Allergy SWELLING Verified 08/20/16 15:16 Physical Exam - Constitutional Appears: In Acute Distress, Unkempt - Head Exam Head Exam: ATRAUMATIC, NORMAL INSPECTION, NORMOCEPHALIC - Eye Exam Eye Exam: EOMI, PERRL. absent: Conjunctival injection Pupil Exam: PERRL - ENT Exam ENT Exam: Mucous Membranes Moist, Normal Exam - Neck Exam Neck exam: Negative for: Lymphadenopathy - Respiratory Exam Respiratory Exam: Decreased Breath Sounds, Wheezes Additional comments: Decreased breath sounds bilaterally; expiratory wheezes heard best at posterior listening posts on RML, RUL, and RLL - Cardiovascular Exam Cardiovascular Exam: Tachycardia, REGULAR RHYTHM, Systolic Murmur Additional comments: Systolic murmur best heard at aortic listening point - GI/Abdominal Exam GI & Abdominal Exam: Hernia, Normal Bowel Sounds, Soft. absent: Diminished Bowel Sounds, Tenderness - Rectal Exam Rectal Exam: Deferred - Extremities Exam Extremities exam: Positive for: pedal pulses present Additional comments: LLE swelling; - Neurological Exam Neurological exam: CN II-XII Intact, Oriented x3 Results - Vital Signs Recent Vital Signs: Last Vital Signs Temp 98.3 F 09/20/16 05:47 Pulse 102 H 09/20/16 05:47 Resp 17 09/20/16 05:47 BP 123/54 L 09/20/16 05:47 Pulse Ox 98 09/20/16 05:47 - Labs Result Diagrams: 09/20/16 05:20 09/20/16 05:20 Labs: Laboratory Results - last 24 hr 09/19/16 09/20/16 18:15 00:30 APTT 29.6 pCO2 44 pO2 62.0 L HCO3 21.2 ABG pH 7.29 L ABG Total CO2 22.6 ABG O2 Saturation 93.6 L ABG O2 Content 14.9 L ABG Base Excess -5.3 L ABG Hemoglobin 11.8 ABG Carboxyhemoglobin 4.0 H POC ABG HHb (Measured) 6.1 H ABG Methemoglobin 0.2 ABG O2 Capacity 15.9 L Hgb O2 Saturation 89.6 L FiO2 40.0 Assessment & Plan - Assessment and Plan (Free Text) Assessment: Assessment 1.) COPD exacerbation 2.) Active Breast CA - non compliant - with possible METS LN 3.) Active Tobacco Abuse 4.) IDDM 5.) Chronic Pain 6.) Anxiety - Generalized and Distress Regarding Malignancy 7.) CRI 8.) GERD Plan 1.) Duonebs: albuterol 1.25 mg, salumeterol 40 q12; Albuterol 3 mg PRN; Zithromax 250 mg qD 2.) D/W Dr. Zelaya - malignancy 3.) D/W patient tobacco cessation 4.) Accucheck ACNHS; Sliding Scale ACNHS, low dose 5.) Home meds 6.) Xanax per home meds 7.) F/U outpatient 8.) Pepcid 20 mg qD 9.) DVT PPHXS a.) Heparin 5000 q8 <Armand Nix P - Last Filed: 09/22/16 06:30> Results - Vital Signs Recent Vital Signs: Last Vital Signs Temp 97.3 F L 09/21/16 17:39 Pulse 101 H 09/21/16 17:39 Resp 20 09/21/16 17:39 BP 168/65 H 09/21/16 17:39 Pulse Ox 99 09/21/16 06:00 - Labs Result Diagrams: 09/21/16 05:30 09/21/16 10:00 Labs: Laboratory Results - last 24 hr 09/21/16 09/21/16 09/21/16 05:30 05:30 05:30 WBC 7.0 D RBC 3.91 Hgb 11.4 L Hct 36.9 MCV 94.4 MCH 29.2 MCHC 30.9 L RDW 15.5 H Plt Count 431 MPV 9.8 Sodium 139 Potassium 5.6 H* Chloride 104 Carbon Dioxide 24 Anion Gap 17 BUN 45 H Creatinine 1.6 H Est GFR ( Amer) 40 Est GFR (Non-Af Amer) 33 POC Glucose (mg/dL) Random Glucose 224 H Calcium 8.4 Total Bilirubin 0.3 AST 17 ALT 23 Alkaline Phosphatase 101 Total Protein 6.7 Albumin 3.8 Globulin 2.9 Albumin/Globulin Ratio 1.3 Triglycerides 144 Cholesterol 181 LDL Cholesterol Direct 114 HDL Cholesterol 41 09/21/16 09/21/16 09/21/16 10:00 11:45 21:38 WBC RBC Hgb Hct MCV MCH MCHC RDW Plt Count MPV Sodium 140 Potassium 5.2 H Chloride 103 Carbon Dioxide 24 Anion Gap 18 BUN 42 H Creatinine 1.7 H Est GFR ( Amer) 38 Est GFR (Non-Af Amer) 31 POC Glucose (mg/dL) 127 H 185 H Random Glucose 220 H Calcium 8.5 Total Bilirubin AST ALT Alkaline Phosphatase Total Protein Albumin Globulin Albumin/Globulin Ratio Triglycerides Cholesterol LDL Cholesterol Direct HDL Cholesterol Attending/Attestation - Attestation I have personally seen and examined this patient.: Yes I have fully participated in the care of the patient.: Yes I have reviewed all pertinent clinical information: Yes
[2016-09-20 06:21] LABS: MEAN CORPUSCULAR HEMOGLOBIN 29.1 pg (25.0-35.0); MEAN CORPUSCULAR HGB CONC 31.3 g/dl (31.0-37.0); MEAN PLATELET VOLUME 9.4 fl (7.0-11.0); RBC 4.12 10^6/uL (3.5-6.1); RED CELL DISTRIBUTION WIDTH 15.1 % (11.5-14.5); WHITE BLOOD COUNT 3.2 10^3/ul (4.5-11.0)
[2016-09-20 06:41] LABS: ALB/GLOB RATIO 1.3 (1.1-1.8); ALT/SGPT 29 U/L (7-56); AST/SGOT 16 U/L (15-39); BLOOD UREA NITROGEN 23 mg/dL (7-21); CALCIUM 8.6 mg/dL (8.4-10.5); GFR AFRICAN-AMERICAN 43; GFR NON-AFRICAN AMERICAN 36; MAGNESIUM 2.2 mg/dL (1.7-2.2)
[2016-09-20 06:55] LABS: TROPONIN I < 0.01 ng/mL
[2016-09-20] MEDS: Insulin Reg-LOW-Coverage SC SCH ×4 (07:51→22:00)
--- NOTE | 2016-09-20 08:53 | CARD ---
APPROVED REPORT EKG Measurement Heart [id number] <Conclusion> Baseline artifact Sinus tachycardia Possible septal infarct, age undetermined Abnormal ECG
[2016-09-20] MEDS: Albuterol 0.042% Inhal Sol (1.25 mg/3 mL) UD IH PRN (12:00)
[2016-09-21] MEDS: Albuterol-Ipratrop 3 mg / 0.5 (3 ml) UD IH SCH ×3 (02:28→13:34)
[2016-09-21 06:39] LABS: HEMOGLOBIN 11.4 gm/dL (12.0-16.0); MEAN CELL VOLUME 94.4 fL (80.0-105.0); MEAN CORPUSCULAR HEMOGLOBIN 29.2 pg (25.0-35.0); MEAN CORPUSCULAR HGB CONC 30.9 g/dl (31.0-37.0); MEAN PLATELET VOLUME 9.8 fl (7.0-11.0); RBC 3.91 10^6/uL (3.5-6.1); RED CELL DISTRIBUTION WIDTH 15.5 % (11.5-14.5)
[2016-09-21 07:16] LABS: ALB/GLOB RATIO 1.3 (1.1-1.8); ALBUMIN 3.8 g/dL (3.0-4.8); CALCIUM 8.4 mg/dL (8.4-10.5)
[2016-09-21] MEDS ORDERED: Sod Polystyrene Sulf 15 gm/60 ml Oral Susp PO ONE ×2 (07:59→08:12)
[2016-09-21] MEDS ORDERED: Insulin Regular 1 UNITS/0.01 ML ML SC ONE (08:07)
[2016-09-21] MEDS ORDERED: Dextrose 50% SYRINGE Inj (50 ml) IVP ONE (08:07)
[2016-09-21] MEDS: Insulin Reg-LOW-Coverage SC SCH ×4 (08:32→21:45)
[2016-09-21] MEDS: MethylPREDNISolone 40 mg Vial IVP SCH (09:47)
[2016-09-21 10:21] LABS: CALCIUM 8.5 mg/dL (8.4-10.5)
--- NOTE | 2016-09-21 13:30 | CARD ---
APPROVED REPORT EKG Measurement Heart [id number] <Conclusion> Sinus tachycardia Otherwise normal ECG
--- NOTE | 2016-09-21 14:45 | CP.PCM.PN ---
<GARRY CLAROS - Last Filed: 09/21/16 16:01> Subjective - Date & Time of Evaluation Date of Evaluation: 09/21/16 Time of Evaluation: 10:00 - Subjective Subjective: The patient was seen and examined bedside and complained of a continued mild cough that is non-productive. The pt denies chest pain, shortness of breath, palpitations, n/v/d, fevers or night sweats. Objective - Vital Signs/Intake and Output Vital Signs (last 24 hours): Temp Pulse Resp BP Pulse Ox 98.4 F 97 H 20 118/80 99 09/21/16 11:51 09/21/16 14:25 09/21/16 11:51 09/21/16 11:51 09/21/16 06:00 Intake and Output: 09/21/16 09/21/16 06:59 18:59 Intake Total 0 0 Output Total 900 0 Balance -900 0 - Medications Medications: Current Medications Albuterol Sulfate (Albuterol 0.042% Inhal Elvie (1.25mg/3ml) Ud) 1.25 mg IH Q3H PRN PRN Reason: Shortness of Breath Last Admin: 09/20/16 12:00 Dose: 1.25 mg Albuterol/Ipratropium (Duoneb 3 Mg/0.5 Mg (3 Ml) Ud) 3 ml IH Q6H [facility] Last Admin: 09/21/16 13:34 Dose: 3 ml Alprazolam (Xanax) 0.5 mg PO QID [facility] PRN Reason: Protocol Last Admin: 09/21/16 13:21 Dose: 0.5 mg Azithromycin (Zithromax) 250 mg PO DAILY [facility] PRN Reason: Protocol Last Admin: 09/21/16 09:36 Dose: 250 mg Famotidine (Pepcid) 20 mg PO DAILY [facility] Last Admin: 09/21/16 09:35 Dose: 20 mg Fenofibrate (Tricor) 48 mg PO DAILY [facility] Last Admin: 09/21/16 09:47 Dose: 48 mg Heparin Sodium (Porcine) (Heparin) 5,000 units SC Q8 [facility] PRN Reason: Protocol Last Admin: 09/21/16 13:21 Dose: 5,000 units Insulin Human Regular (Humulin R Low) 0 units SC ACHS [facility] PRN Reason: Protocol Last Admin: 09/21/16 12:34 Dose: Not Given Methylprednisolone (Solu-Medrol) 40 mg IVP DAILY [facility] Montelukast Sodium (Singulair) 10 mg PO HS [facility] Last Admin: 09/20/16 21:46 Dose: 10 mg Nicotine (Nicoderm Cq) 1 patch TD DAILY [facility] Last Admin: 09/21/16 09:36 Dose: 1 patch Oxycodone/Acetaminophen (Percocet 5/325 Mg Tab) 1 tab PO Q6H PRN PRN Reason: Pain, moderate (4-7) Stop: 09/22/16 23:56 Last Admin: 09/20/16 21:45 Dose: 1 tab - Labs Labs: 09/21/16 05:30 09/21/16 10:00 APTT 29.6 Seconds (23.7-30.8) 09/20/16 00:30 - Constitutional Appears: Well, No Acute Distress - Head Exam Head Exam: ATRAUMATIC, NORMAL INSPECTION, NORMOCEPHALIC - Eye Exam Eye Exam: EOMI, Normal appearance, PERRL - ENT Exam ENT Exam: Mucous Membranes Moist, Normal Exam - Respiratory Exam Respiratory Exam: Wheezes, NORMAL BREATHING PATTERN. absent: Accessory Muscle Use, Chest Wall Tenderness, Respiratory Distress - Cardiovascular Exam Cardiovascular Exam: RRR. absent: Gallop, Rubs, Murmur - GI/Abdominal Exam GI & Abdominal Exam: Soft, Normal Bowel Sounds. absent: Distended, Tenderness - Neurological Exam Neurological Exam: Alert, Awake, Oriented x3 - Psychiatric Exam Psychiatric exam: Normal Affect, Normal Mood - Skin Skin Exam: Normal Color, Warm Assessment and Plan - Assessment and Plan (Free Text) Assessment: 55yo F w/ PMHx COPD, asthma, DM2, Anxiety, and breast CA p/w shortness of breath : 1. COPD exacerbation 2. Hyperkalemia (5.6) 3. LE swelling, r/o CHF 4. IDDM 5. Anxiety 6. Breast CA - non compliant - with possible METS 7. Tobacco user 8. HLD? - lipid panel ordered - continue Tricor Plan: 1. COPD exacerbation - Solumedrol decreased to 40mg daily - continue Zithromax, Singulair, Duoneb - Albuterol PRN - Wean off O2 (pt currently on 3L NC) 2. Hyperkalemia (5.6) - pt was given Kayexalate 15mg and 10u Insulin - K trending down 5.2 - EKG showed sinus tachycardia, otherwise nl 3. LE swelling, r/o CHF - ECHO to be done tomorrow (spoke with tech, backed up) 4. IDDM - Humulin - A1C 7.6 5. Anxiety - continue Xanax 6. Breast CA - non compliant - with possible METS - D/W Dr. Zelaya for outpatient f/u post-discharge 7. Tobacco user - continue Nicoderm - encourage cessation 8. HLD? - lipid panel ordered - continue Tricor Diet: HHD GI/DVT ppx: Pepcid/heparin Patient was seen, discussed and evaluated with attending, Dr. Cinda Claros, PGY1 <Sarmad Loo B - Last Filed: 09/22/16 15:21> Objective - Vital Signs/Intake and Output Vital Signs (last 24 hours): Temp Pulse Resp BP Pulse Ox 98.2 F 85 19 123/59 L 99 09/22/16 08:23 09/22/16 08:23 09/22/16 08:23 09/22/16 08:23 09/22/16 08:23 Intake and Output: 09/22/16 09/22/16 06:59 18:59 Intake Total 540 Output Total 550 Balance -10 - Medications Medications: Current Medications Albuterol Sulfate (Albuterol 0.042% Inhal Elvie (1.25mg/3ml) Ud) 1.25 mg IH Q3H PRN PRN Reason: Shortness of Breath Last Admin: 09/20/16 12:00 Dose: 1.25 mg Albuterol/Ipratropium (Duoneb 3 Mg/0.5 Mg (3 Ml) Ud) 3 ml IH Q6H [facility] Last Admin: 09/22/16 11:46 Dose: 3 ml Alprazolam (Xanax) 0.5 mg PO QID [facility] PRN Reason: Protocol Last Admin: 09/22/16 13:46 Dose: 0.5 mg Azithromycin (Zithromax) 250 mg PO DAILY [facility] PRN Reason: Protocol Last Admin: 09/22/16 09:13 Dose: 250 mg Famotidine (Pepcid) 20 mg PO DAILY [facility] Last Admin: 09/22/16 09:14 Dose: 20 mg Fenofibrate (Tricor) 48 mg PO DAILY [facility] Last Admin: 09/22/16 09:13 Dose: 48 mg Heparin Sodium (Porcine) (Heparin) 5,000 units SC Q8 [facility] PRN Reason: Protocol Last Admin: 09/22/16 13:46 Dose: 5,000 units Ceftriaxone Sodium (Rocephin 1 Gram Ivpb) 1 gm in 100 mls @ 100 mls/hr IVPB DAILY [facility] PRN Reason: Protocol Insulin Human Regular (Humulin R Low) 0 units SC ACHS [facility] PRN Reason: Protocol Last Admin: 09/22/16 12:11 Dose: Not Given Methylprednisolone (Solu-Medrol) 40 mg IVP Q12 [facility] Montelukast Sodium (Singulair) 10 mg PO HS [facility] Last Admin: 09/21/16 21:15 Dose: 10 mg Nicotine (Nicoderm Cq) 1 patch TD DAILY [facility] Last Admin: 09/22/16 09:13 Dose: 1 patch Oxycodone/Acetaminophen (Percocet 5/325 Mg Tab) 1 tab PO Q6H PRN PRN Reason: Pain, moderate (4-7) Stop: 09/22/16 23:56 Last Admin: 09/22/16 09:26 Dose: 1 tab - Labs Labs: 09/22/16 07:00 09/22/16 07:00 APTT 29.6 Seconds (23.7-30.8) 09/20/16 00:30 Attending/Attestation - Attestation I have personally seen and examined this patient.: Yes I have fully participated in the care of the patient.: Yes I have reviewed all pertinent clinical information, including history, physical exam and plan: Yes Notes (Text): I have seen and examined the patient at bedside. Agree with the residents note with the following additions/ exceptions: Briefly this is 55 year old female with history of COPD, asthma, DM-2, anxiety, left breast cancer non compliant with chemotherapy, renal calculi, herniated disc who was admitted for evaluation of shortness of breath and found to have COPD exacerbation. Patient feels well and is able to talk in complete sentences. She has mild cough with scant sputum production. Will taper steroids today. Continue zithromax, singulair and duonebs. Hyperkalemia was noted today and she was given dextrose/ insulin and kayexelate. Echo pending. Advised patient that she needs to follow up with Dr Zelaya. Tobacco cessation counselling provided. Upon discharge patient will follow up with Dr Sosa. Dr Sarmad Loo
[2016-09-21] MEDS: Oxycodone/Acetaminophen 5/325 mg Tab PO PRN (14:51)
[2016-09-21 16:25] LABS: HDL CHOLESTEROL 41 mg/dL (29-60)
[2016-09-21 16:36] LABS: LDL CHOLESTEROL 114 mg/dL (0-129)
[2016-09-22] MEDS: Oxycodone/Acetaminophen 5/325 mg Tab PO PRN ×4 (01:25→21:29)
[2016-09-22] MEDS: Albuterol-Ipratrop 3 mg / 0.5 (3 ml) UD IH SCH ×5 (01:59→23:17)
[2016-09-22] MEDS: Insulin Reg-LOW-Coverage SC SCH ×2 (07:58→12:11)
[2016-09-22 07:59] LABS: HEMOGLOBIN 11.3 gm/dL (12.0-16.0); MEAN CELL VOLUME 93.8 fL (80.0-105.0); MEAN CORPUSCULAR HGB CONC 30.9 g/dl (31.0-37.0); MEAN PLATELET VOLUME 9.7 fl (7.0-11.0); RBC 3.9 10^6/uL (3.5-6.1); RED CELL DISTRIBUTION WIDTH 15.5 % (11.5-14.5); WHITE BLOOD COUNT 8.1 10^3/ul (4.5-11.0)
[2016-09-22 08:10] LABS: ALB/GLOB RATIO 1.3 (1.1-1.8); ALBUMIN 3.5 g/dL (3.0-4.8); CALCIUM 8.1 mg/dL (8.4-10.5)
[2016-09-22] MEDS ORDERED: MethylPREDNISolone 40 mg Vial IVP SCH (10:00)
--- NOTE | 2016-09-22 13:45 | CP.PCM.PN ---
<GARRY CLAROS - Last Filed: 09/22/16 13:57> Subjective - Date & Time of Evaluation Date of Evaluation: 09/22/16 Time of Evaluation: 10:00 - Subjective Subjective: Patient seen and examined bedside. Pt complaining of a cough (not new) and shortness of breath when she's off the O2. Objective - Vital Signs/Intake and Output Vital Signs (last 24 hours): Temp Pulse Resp BP Pulse Ox 98.2 F 85 19 123/59 L 99 09/22/16 08:23 09/22/16 08:23 09/22/16 08:23 09/22/16 08:23 09/22/16 08:23 Intake and Output: 09/22/16 09/22/16 06:59 18:59 Intake Total 540 Output Total 550 Balance -10 - Medications Medications: Current Medications Albuterol Sulfate (Albuterol 0.042% Inhal Elvie (1.25mg/3ml) Ud) 1.25 mg IH Q3H PRN PRN Reason: Shortness of Breath Last Admin: 09/20/16 12:00 Dose: 1.25 mg Albuterol/Ipratropium (Duoneb 3 Mg/0.5 Mg (3 Ml) Ud) 3 ml IH Q6H [facility] Last Admin: 09/22/16 11:46 Dose: 3 ml Alprazolam (Xanax) 0.5 mg PO QID [facility] PRN Reason: Protocol Last Admin: 09/22/16 09:14 Dose: 0.5 mg Azithromycin (Zithromax) 250 mg PO DAILY [facility] PRN Reason: Protocol Last Admin: 09/22/16 09:13 Dose: 250 mg Famotidine (Pepcid) 20 mg PO DAILY [facility] Last Admin: 09/22/16 09:14 Dose: 20 mg Fenofibrate (Tricor) 48 mg PO DAILY [facility] Last Admin: 09/22/16 09:13 Dose: 48 mg Heparin Sodium (Porcine) (Heparin) 5,000 units SC Q8 [facility] PRN Reason: Protocol Last Admin: 09/22/16 05:04 Dose: 5,000 units Ceftriaxone Sodium (Rocephin 1 Gram Ivpb) 1 gm in 100 mls @ 100 mls/hr IVPB DAILY [facility] PRN Reason: Protocol Insulin Human Regular (Humulin R Low) 0 units SC ACHS [facility] PRN Reason: Protocol Last Admin: 09/22/16 12:11 Dose: Not Given Methylprednisolone (Solu-Medrol) 40 mg IVP Q12 [facility] Montelukast Sodium (Singulair) 10 mg PO HS [facility] Last Admin: 09/21/16 21:15 Dose: 10 mg Nicotine (Nicoderm Cq) 1 patch TD DAILY [facility] Last Admin: 09/22/16 09:13 Dose: 1 patch Oxycodone/Acetaminophen (Percocet 5/325 Mg Tab) 1 tab PO Q6H PRN PRN Reason: Pain, moderate (4-7) Stop: 09/22/16 23:56 Last Admin: 09/22/16 09:26 Dose: 1 tab - Labs Labs: 09/22/16 07:00 09/22/16 07:00 APTT 29.6 Seconds (23.7-30.8) 09/20/16 00:30 - Constitutional Appears: Well, No Acute Distress, Unkempt - Head Exam Head Exam: ATRAUMATIC, NORMAL INSPECTION, NORMOCEPHALIC - Eye Exam Eye Exam: EOMI, Normal appearance, PERRL - ENT Exam ENT Exam: Mucous Membranes Moist, Normal Exam - Respiratory Exam Respiratory Exam: Wheezes (increased from yesterday ). absent: Rales, Rhonchi Additional comments: Pt on 4L O2 NC - Cardiovascular Exam Cardiovascular Exam: RRR. absent: Gallop, Rubs, Murmur - GI/Abdominal Exam GI & Abdominal Exam: Soft, Normal Bowel Sounds. absent: Distended, Tenderness - Neurological Exam Neurological Exam: Alert, Awake, Oriented x3 - Psychiatric Exam Psychiatric exam: Anxious, Normal Affect - Skin Skin Exam: Normal Color, Warm. absent: Cyanosis, Pallor Assessment and Plan - Assessment and Plan (Free Text) Assessment: 55yo F w/ PMHx COPD, asthma, DM2, Anxiety, and breast CA p/w shortness of breath : 1. COPD exacerbation 2. Hyperkalemia 3. LE swelling, r/o CHF 4. IDDM 5. Anxiety 6. Breast CA - non compliant - with possible METS 7. Tobacco user Plan: 1. COPD exacerbation - While at Echo lab, pt desaturated to 70's. Rapid response was called, pt placed on non-rebreather and rec'd albuterol x2. s/p O2 sat at 100%. placed on 3L NC for transport. - Pt on 4L NC - Solumedrol increased to 40mg BID - Added Rocephin - continue Duoneb q6, singulair, Albuterol PRN - pt to get CT in the AM 2. Hyperkalemia resolved - K 4.5 3. LE swelling, r/o CHF - ECHO done, waiting to be read 4. IDDM - Humulin - A1C 7.6 - FS: 122, 220, 224 5. Anxiety - continue Xanax 6. Breast CA - non compliant - with possible METS - D/W Dr. Zelaya for outpatient f/u post-discharge 7. Tobacco user - continue Nicoderm - encourage cessation Diet: HHD GI/DVT ppx: Pepcid/heparin Patient was seen, discussed and evaluated with attending, Dr. Cinda Claros, PGY1 <Sarmad Loo B - Last Filed: 09/22/16 17:32> Objective - Vital Signs/Intake and Output Vital Signs (last 24 hours): Temp Pulse Resp BP Pulse Ox 98.2 F 85 19 123/59 L 99 09/22/16 08:23 09/22/16 08:23 09/22/16 08:23 09/22/16 08:23 09/22/16 08:23 Intake and Output: 09/22/16 09/22/16 06:59 18:59 Intake Total 540 850 Output Total 550 Balance -10 850 - Medications Medications: Current Medications Albuterol Sulfate (Albuterol 0.042% Inhal Elvie (1.25mg/3ml) Ud) 1.25 mg IH Q3H PRN PRN Reason: Shortness of Breath Last Admin: 09/20/16 12:00 Dose: 1.25 mg Albuterol/Ipratropium (Duoneb 3 Mg/0.5 Mg (3 Ml) Ud) 3 ml IH Q6H [facility] Last Admin: 09/22/16 11:46 Dose: 3 ml Alprazolam (Xanax) 0.5 mg PO QID [facility] PRN Reason: Protocol Last Admin: 09/22/16 13:46 Dose: 0.5 mg Azithromycin (Zithromax) 250 mg PO DAILY [facility] PRN Reason: Protocol Last Admin: 09/22/16 09:13 Dose: 250 mg Famotidine (Pepcid) 20 mg PO DAILY [facility] Last Admin: 09/22/16 09:14 Dose: 20 mg Fenofibrate (Tricor) 48 mg PO DAILY [facility] Last Admin: 09/22/16 09:13 Dose: 48 mg Heparin Sodium (Porcine) (Heparin) 5,000 units SC Q8 [facility] PRN Reason: Protocol Last Admin: 09/22/16 13:46 Dose: 5,000 units Ceftriaxone Sodium (Rocephin 1 Gram Ivpb) 1 gm in 100 mls @ 100 mls/hr IVPB DAILY [facility] PRN Reason: Protocol Insulin Human Regular (Humulin R Med) 0 units SC ACHS [facility] PRN Reason: Protocol Last Admin: 09/22/16 16:44 Dose: 10 units Methylprednisolone (Solu-Medrol) 40 mg IVP Q12 [facility] Montelukast Sodium (Singulair) 10 mg PO HS [facility] Last Admin: 09/21/16 21:15 Dose: 10 mg Nicotine (Nicoderm Cq) 1 patch TD DAILY [facility] Last Admin: 09/22/16 09:13 Dose: 1 patch Oxycodone/Acetaminophen (Percocet 5/325 Mg Tab) 1 tab PO Q6H PRN PRN Reason: Pain, moderate (4-7) Stop: 09/22/16 23:56 Last Admin: 09/22/16 15:46 Dose: 1 tab - Labs Labs: 09/22/16 07:00 09/22/16 07:00 APTT 29.6 Seconds (23.7-30.8) 09/20/16 00:30 Attending/Attestation - Attestation I have personally seen and examined this patient.: Yes I have fully participated in the care of the patient.: Yes I have reviewed all pertinent clinical information, including history, physical exam and plan: Yes Notes (Text): I have seen and examined the patient at bedside. Agree with the residents note with the following additions/ exceptions: Briefly this is 55 year old female with history of COPD, asthma, DM-2, anxiety, left breast cancer non compliant with chemotherapy, renal calculi, herniated disc, tobacco use who was admitted for evaluation of shortness of breath and found to have COPD exacerbation. Today patient developed worsening of cough, tachypnea and hypoxia while having an echocardiogram. Her wheezing is also noted to be worse today as compare to yesterday. She is able to talk in short sentences. Duoneb stat was given and solumedrol dose was increased. Rocephin was added. Will order CT chest. Will follow up on echo result. Upon discharge patient will follow up with Dr Sosa and Dr Zelaya. Dr Sarmad Loo
[2016-09-22] MEDS: Insulin Reg-MEDIUM-Coverage SC SCH ×2 (16:44→21:28)
--- NOTE | 2016-09-22 18:14 | CP.PCM.PCO ---
Physician Communication Note - Physician Communication Note Physician Communication Note: Please refer to attached page for summary Summary - Summary of Event Summary of Event: Rapid Response Note: Pt became dyspneic upon completion of echocardiogram and complained of SOB. Pt oxygen saturation dropped to 72% and pt appeared cyanotic. Rapid response was called at 10:11 for respiratory distress. Rapid response team arrived; pt was tachypnic, SOB and was receiving oxygen via rebreather mask. Physical Exam Vitals: HR 99, BP 149/117, SpO2 72% Gen: responsive, cyanotic appearance HEENT: No gross trauma noted, no echymosis, spontaneous eye opening x2, no gross scleral icterus, no epistaxis, no nuchal rigidity CV: RRR, s1s2 present, no murmurs, rubs, clicks Pulm: Mild wheezing b/l, no rales/rhonchi, pt unable to speak full sentences Abd: Soft, non-tender, non-distended, normoactive bowel sounds Neuro: responsive to verbal and physical stimuli, spontaneous eye opening x2, no focal deficits As per house physician responding (Dr. Lisandra Loo), the pt was given 2 treatments of albuterol nebulized at 10:18 and 10:21. By the end of treatment pt pulse ox returned to 99%. At this point the pt denied any symptoms of tachypnea or dyspnea, so the rapid response was ended at 10:24. Patient was seen, reviewed, and discussed with mukund physician, Dr. Lisandra Loo.
[2016-09-22] MEDS: MethylPREDNISolone 40 mg Vial IVP SCH (21:18)
--- NOTE | 2016-09-23 00:11 | CP.PCM.CON ---
History of Present Illness - History of Present Illness History of Present Illness: Pt. is a 55 year old female diagnosed with left sided breast Cancer. She did not follow up after firts cycle of sandee adjuvant chemotherapy. She did not follow up with DR. Simental for surgery either. She was contacted multiple times by our office but she refused. presented with shortness of breath. CT chest last month showed right lower lobe effusion/consolidation. She was recently discharged from hospital, admitted with PNA. no fever. Review of Systems - Review of Systems Systems not reviewed;Unavailable: Respiratory Distress - Constitutional Constitutional: Fatigue, Malaise, Weakness - EENT Eyes: absent: As Per HPI, Blind Spots, Blurred Vision, Change in Vision, Decreased Night Vision, Diplopia, Discharge, Dry Eye, Exophthalmos, Floaters, Irritation, Itchy Eyes, Loss of Peripheral Vision, Pain, Photophobia, Requires Corrective Lenses, Sees Flashes, Spots in Vision, Tunnel Vision, Other Visual Disturbances, Loss of Vision, Other Nose/Mouth/Throat: absent: As Per HPI, Epistaxis, Nasal Congestion, Nasal Discharge, Nasal Obstruction, Nasal Trauma, Nose Pain, Post Nasal Drip, Sinus Pain, Sinus Pressure, Bleeding Gums, Change in Voice, Dental Pain, Dry Mouth, Dysphagia, Halitosis, Hoarsness, Lip Swelling, Mouth Lesions, Mouth Pain, Odynophagia, Sore Throat, Throat Swelling, Tongue Swelling, Facial Pain, Neck Pain, Neck Mass, Other - Breasts Breasts: As Per HPI - Cardiovascular Cardiovascular: Dyspnea - Respiratory Respiratory: Dyspnea, Chest Congestion, Excessive Mucous Production - Gastrointestinal Gastrointestinal: absent: As Per HPI, Abdominal Pain, Belching, Bloating, Change in Bowel Habits, Change in Stool Character, Coffee Ground Emesis, Constipation, Cramping, Diarrhea, Dyspepsia, Dysphagia, Early Satiety, Excessive Flatus, Fecal Incontinence, Heartburn, Hematemesis, Hematochezia, Loose Stools, Melena, Nausea, Odynophagia, Temesmus, Vomiting, Other - Genitourinary Genitourinary: absent: As Per HPI, Change in Urinary Stream, Difficulty Urinating, Dysuria, Flank Pain, Hematuria, Pyuria, Nocturia, Urinary Incontinence, Urinary Frequency, Urinary Hesitance, Urinary Urgency, Voiding Freq/Small Amts, Freq UTI, Hx Renal/Bladder Calculi, Hx /Renal Surgery, Bladder Distension, Other - Reproductive: Female Reproductive:Female: absent: As Per HPI, Amenorrhea, Amenorrhea/ Control, Currently Menstual, Cycle <21 Days, Cycle >35 Days, Cycle Variable, Menses 1-7 Days, Menses >/= 8 Days, Menses Variable, Cycle > 4 Weeks Between, No Menses for 6 Months, Heavy Menses, Light Menses, Normal Menses, Spotting Between Cycles , S/P Hysterectomy, Menopausal, Post Menopausal, Premenarche, Abnormal Vaginal Bleeding, Dysmenorrhea, Dyspareunia, Genital Lesions, Genital Pruritis, Pelvic Pain, Prolapse Symptoms, Sexual Dysfunction, Vaginal Discharge, Vaginal Dryness , Vaginal Odor, Vaginal Pruritis, Other - Musculoskeletal Musculoskeletal: absent: As Per HPI, Abnormal Gait, Arthralgias, Atrophy, Back Pain, Deformity, Joint Swelling, Limited Range of Motion, Loss of Height, Muscle Cramps, Muscle Weakness, Myalgias, Neck Pain, Numbness, Radiating Pain into Limb, Stiffness, Tingling, Other - Neurological Neurological: absent: As Per HPI, Abnormal Gait, Abnormal Hearing, Abnormal Movements, Abnormal Speech, Behavioral Changes, Burning Sensations, Confusion, Convulsions, Disequilibrium, Dizziness, Numbness, Focal Weakness, Frequent Falls , Headaches, Lack of Coordination, Loss of Vision, Memory Loss, Paresthesias, Radicular Pain, Restless Legs, Sensory Deficit, Syncope, Tingling, Tremor, Vertigo, Weakness, Other Visual Disturbances, Other - Hematologic/Lymphatic Hematologic: As Per HPI Past Patient History - Infectious Disease Hx of Infectious Diseases: None - Tetanus Immunizations Tetanus Immunization: Unknown - Past Medical History & Family History Past Medical History?: Yes - Past Social History Smoking Status: Heavy Smoker > 10 Cigarettes Daily - CARDIAC Hx Cardiac Disorders: Yes Hx Hypertension: Yes Hx Peripheral Edema: Yes (ble +1 edema pitting) - PULMONARY Hx Respiratory Disorders: Yes (cough) Hx Asthma: Yes Hx Bronchitis: Yes Hx Chronic Obstructive Pulmonary Disease (COPD): Yes Hx Emphysema: Yes Hx Pneumonia: Yes - NEUROLOGICAL Hx Neurological Disorder: No - HEENT Hx HEENT Problems: Yes ([place] left ear) Hx Cataracts: Yes - RENAL Hx Chronic Kidney Disease: No (HYDRONEPHROSIS) Hx Kidney Stones: Yes - ENDOCRINE/METABOLIC Hx Endocrine Disorders: Yes Hx Diabetes Mellitus Type 2: Yes - HEMATOLOGICAL/ONCOLOGICAL Hx Blood Disorders: Yes Hx Cancer: Yes (breast cancer left dx 06/2015) Hx Chemotherapy: Yes - INTEGUMENTARY Hx Dermatological Problems: Yes Other/Comment: multiple age spots to back, small white areas of skin to left arm , ble skin discolorations, reddened buttock and hard red areas of skin to lower r and left buttock,multiple scabs and dry discolored skin areas to both arms, poor hygeine dirty toes and elbows - MUSCULOSKELETAL/RHEUMATOLOGICAL Hx Falls: Yes (past falls) - GASTROINTESTINAL Hx Gastrointestinal Disorders: Yes (esophagitis/ pelvic mass) Hx Gastroesophageal Reflux: Yes - GENITOURINARY/GYNECOLOGICAL Hx Genitourinary Disorders: Yes (PELVIC MASS) Hx Urinary Tract Infection: Yes - PSYCHIATRIC Hx Psychophysiologic Disorder: Yes Hx Anxiety: Yes - SURGICAL HISTORY Other/Comment: left breast bx 07/01/15, umbilical hernia repair, c section x 2 extopic , excision of abd tumor, rcw pac, umbilical hernia repair - ANESTHESIA Hx Anesthesia Reactions: No Hx Malignant Hyperthermia: No Meds Allergies/Adverse Reactions: Allergies Allergy/AdvReac Type Severity Reaction Status Date / Time levofloxacin [From Levaquin] Allergy SHORTNESS Verified 08/20/16 15:16 OF BREATH;PARANOID nystatin Allergy SWELLING Verified 08/20/16 15:16 - Medications Medications: Current Medications Albuterol Sulfate (Albuterol 0.042% Inhal Elvie (1.25mg/3ml) Ud) 1.25 mg IH Q3H PRN PRN Reason: Shortness of Breath Last Admin: 09/20/16 12:00 Dose: 1.25 mg Albuterol/Ipratropium (Duoneb 3 Mg/0.5 Mg (3 Ml) Ud) 3 ml IH Q6H [facility] Last Admin: 09/22/16 23:17 Dose: 3 ml Alprazolam (Xanax) 0.5 mg PO QID [facility] PRN Reason: Protocol Last Admin: 09/22/16 21:20 Dose: 0.5 mg Azithromycin (Zithromax) 250 mg PO DAILY [facility] PRN Reason: Protocol Last Admin: 09/22/16 09:13 Dose: 250 mg Famotidine (Pepcid) 20 mg PO DAILY [facility] Last Admin: 09/22/16 09:14 Dose: 20 mg Fenofibrate (Tricor) 48 mg PO DAILY [facility] Last Admin: 09/22/16 09:13 Dose: 48 mg Heparin Sodium (Porcine) (Heparin) 5,000 units SC Q8 [facility] PRN Reason: Protocol Last Admin: 09/22/16 21:19 Dose: 5,000 units Ceftriaxone Sodium (Rocephin 1 Gram Ivpb) 1 gm in 100 mls @ 100 mls/hr IVPB DAILY [facility] PRN Reason: Protocol Insulin Human Regular (Humulin R Med) 0 units SC ACHS [facility] PRN Reason: Protocol Last Admin: 09/22/16 21:28 Dose: 3 units Methylprednisolone (Solu-Medrol) 40 mg IVP Q12 [facility] Last Admin: 09/22/16 21:18 Dose: 40 mg Montelukast Sodium (Singulair) 10 mg PO HS [facility] Last Admin: 09/22/16 21:20 Dose: 10 mg Nicotine (Nicoderm Cq) 1 patch TD DAILY [facility] Last Admin: 09/22/16 09:13 Dose: 1 patch Physical Exam - Constitutional Appears: Chronically Ill - Head Exam Head Exam: ATRAUMATIC, NORMAL INSPECTION, NORMOCEPHALIC - Eye Exam Eye Exam: Normal appearance - ENT Exam ENT Exam: Mucous Membranes Moist, Normal Exam - Neck Exam Neck exam: Positive for: Normal Inspection - Respiratory Exam Respiratory Exam: Clear to Auscultation Bilateral, NORMAL BREATHING PATTERN - Cardiovascular Exam Cardiovascular Exam: REGULAR RHYTHM, +S1, +S2 - GI/Abdominal Exam GI & Abdominal Exam: Normal Bowel Sounds - Extremities Exam Extremities exam: Positive for: normal inspection - Neurological Exam Neurological exam: Alert, CN II-XII Intact, Normal Gait, Oriented x3 - Skin Skin Exam: Normal Color, Warm - Additional Findings Additional findings: mass present in left upper quad breast around 10 cm, big left axillary mass Results - Vital Signs Recent Vital Signs: Last Vital Signs Temp 98.7 F 09/22/16 16:00 Pulse 93 H 09/22/16 16:00 Resp 19 09/22/16 16:00 BP 150/73 09/22/16 16:00 Pulse Ox 93 L 09/22/16 16:00 - Labs Result Diagrams: 09/22/16 07:00 09/22/16 07:00 Labs: Laboratory Results - last 24 hr 09/22/16 09/22/16 09/22/16 07:00 07:00 07:28 WBC 8.1 RBC 3.90 Hgb 11.3 L Hct 36.6 MCV 93.8 MCH 29.0 MCHC 30.9 L RDW 15.5 H Plt Count 432 MPV 9.7 Sodium 141 Potassium 4.5 Chloride 107 Carbon Dioxide 26 Anion Gap 13 BUN 51 H Creatinine 1.6 H Est GFR ( Amer) 40 Est GFR (Non-Af Amer) 33 POC Glucose (mg/dL) 121 H Random Glucose 122 H Calcium 8.1 L Total Bilirubin 0.2 AST 26 ALT 21 Alkaline Phosphatase 96 Total Protein 6.1 Albumin 3.5 Globulin 2.6 Albumin/Globulin Ratio 1.3 09/22/16 09/22/16 09/22/16 11:14 16:14 21:06 WBC RBC Hgb Hct MCV MCH MCHC RDW Plt Count MPV Sodium Potassium Chloride Carbon Dioxide Anion Gap BUN Creatinine Est GFR ( Amer) Est GFR (Non-Af Amer) POC Glucose (mg/dL) 131 H 463 H* 388 H Random Glucose Calcium Total Bilirubin AST ALT Alkaline Phosphatase Total Protein Albumin Globulin Albumin/Globulin Ratio Assessment & Plan - Assessment and Plan (Free Text) Assessment: 1. Breast Cancer 2. respiratory distress 3. Anemia 4. DM 5. Renal insufficiency 6. Non compliance Plan : She might have stage IV breast cancer now. Large left breast mass, large left axillary mass. respiratory distress, might have lung mets. CT chest ordered. She might need bronch for evaluation of endo bronchial lesion on right side. BAL might be helpful. chronic renal insufficiency . stable. On insulin for DM . Discussed with Dr. Loo. Thank you for allowing us to participate in her care. - Date & Time Date: 09/22/16 Time: 18:00
[2016-09-23] MEDS: Albuterol-Ipratrop 3 mg / 0.5 (3 ml) UD IH SCH ×5 (01:41→22:40)
[2016-09-23 08:15] LABS: HEMOGLOBIN 11.6 gm/dL (12.0-16.0); MEAN CELL VOLUME 94.5 fL (80.0-105.0); MEAN CORPUSCULAR HEMOGLOBIN 29.1 pg (25.0-35.0); MEAN CORPUSCULAR HGB CONC 30.9 g/dl (31.0-37.0); MEAN PLATELET VOLUME 9.8 fl (7.0-11.0); RBC 3.98 10^6/uL (3.5-6.1); WHITE BLOOD COUNT 6.9 10^3/ul (4.5-11.0)
[2016-09-23 08:20] LABS: ALB/GLOB RATIO 1.5 (1.1-1.8); ALBUMIN 3.6 g/dL (3.0-4.8); CALCIUM 8.5 mg/dL (8.4-10.5)
[2016-09-23] MEDS: Insulin Reg-MEDIUM-Coverage SC SCH ×4 (08:38→22:13)
--- NOTE | 2016-09-23 09:22 | CARD ---
APPROVED REPORT EXAM: Two-dimensional and M-mode echocardiogram with Doppler and color Doppler. Other Information Quality : PoorRhythm : INDICATION LEG SWELLING /DYSPNEA 2D DIMENSIONS Left Atrium (2D)3.4 (1.6-4.0cm)IVSd1.3 (0.7-1.1cm) LVDd3.4 (3.9-5.9cm)PWd1.4 (0.7-1.1cm) LVDs2.4 (2.5-4.0cm)FS (%) 28.7 % LVEF (%)56.3 (>50%) M-Mode DIMENSIONS Aortic Root2.30 (2.2-3.7cm)Aortic Cusp Exc.1.60 (1.5-2.0cm) Aortic Valve AoV Peak Ywcmavfy422.0cm/s Mitral Valve MV E Nldkpsya546.0cm/sMV A Ydcntllh91.3cm/sE/A ratio1.3 TDI E/Lateral E'0.0E/Medial E'0.0 LEFT VENTRICLE The left ventricle is normal size. There is normal left ventricular wall thickness. The left ventricular function is normal. The left ventricular ejection fraction is within the normal range. There is normal LV segmental wall motion. RIGHT VENTRICLE The right ventricle is normal size. ATRIA The left atrium is mildly dilated. The right atrium size is normal. The interatrial septum is intact with no evidence for an atrial septal defect. AORTIC VALVE The aortic valve is normal in structure. MITRAL VALVE The mitral valve is mildly thickened but opens well. TRICUSPID VALVE The tricuspid valve is not well visualized. PULMONIC VALVE The pulmonic valve is not well visualized. GREAT VESSELS The aortic root is normal in size. PERICARDIAL EFFUSION There is no pericardial effusion. <Conclusion> This is a very limited study. The left ventricle is normal size. There is normal left ventricular wall thickness. The left ventricular function is normal.
[2016-09-23] MEDS: MethylPREDNISolone 40 mg Vial IVP SCH (09:34)
[2016-09-23] MEDS: cefTRIAXone 1 gm 1 GM/100 ML BAG IVPB SCH (09:34)
--- NOTE | 2016-09-23 11:04 | CT ---
PROCEDURE: CT Chest without contrast HISTORY: SOB COMPARISON: None. TECHNIQUE: Contiguous axial images were obtained through the chest without intravenous contrast enhancement. Sagittal and coronal reconstructions were performed. Radiation dose (DLP): 703 mGy-cm. This CT exam was performed using one or more of the following dose reduction techniques: Automated exposure control, adjustment of the mA and/or kV according to patient size, and/or use of iterative reconstruction technique. FINDINGS: LUNGS: There is an area of dense consolidation with air bronchograms in the posterior right upper lobe. This is unchanged. The previous study showed complete atelectasis of the right lower lobe. This has resolved. There is some linear atelectasis. MEDIASTINUM: Unremarkable thoracic aorta. No aneurysm. Normal sized heart. Main pulmonary artery unremarkable. No vascular congestion. No lymphadenopathy. PLEURA: No pleural fluid. No pneumothorax. BONES: No fracture. No destructive lesion. UPPER ABDOMEN: Grossly unremarkable. OTHER FINDINGS: None. IMPRESSION: Dense consolidation with air bronchograms in the posterior right upper lobe. The finding is unchanged. This could represent chronic fibrosis. The previously seen right lower lobe atelectasis has resolved No acute findings
[2016-09-23] MEDS ORDERED: Sodium Chloride 0.9% 1,000 ML IV STA (14:32)
[2016-09-23] MEDS ORDERED: Sod Polystyrene Sulf 15 gm/60 ml Oral Susp PO ONE (14:33)
--- NOTE | 2016-09-23 15:54 | CP.PCM.PN ---
Subjective - Date & Time of Evaluation Date of Evaluation: 09/23/16 Time of Evaluation: 13:00 - Subjective Subjective: Patient was seen and evaluated bedside. Complains of back pain across the midback and some shortness of breath when walking. Evan chest pain, palpitations, n/v/d. Objective - Vital Signs/Intake and Output Vital Signs (last 24 hours): Temp Pulse Resp BP Pulse Ox 98.7 F 98 H 18 130/58 L 93 L 09/23/16 08:23 09/23/16 08:23 09/23/16 08:23 09/23/16 08:23 09/23/16 08:23 Intake and Output: 09/23/16 09/23/16 06:59 18:59 Intake Total 240 Output Total 750 Balance -510 - Medications Medications: Current Medications Albuterol Sulfate (Albuterol 0.042% Inhal Elvie (1.25mg/3ml) Ud) 1.25 mg IH Q3H PRN PRN Reason: Shortness of Breath Last Admin: 09/20/16 12:00 Dose: 1.25 mg Albuterol/Ipratropium (Duoneb 3 Mg/0.5 Mg (3 Ml) Ud) 3 ml IH Q6H [facility] Last Admin: 09/23/16 13:59 Dose: 3 ml Alprazolam (Xanax) 0.5 mg PO QID [facility] PRN Reason: Protocol Last Admin: 09/23/16 15:18 Dose: 0.5 mg Azithromycin (Zithromax) 250 mg PO DAILY [facility] PRN Reason: Protocol Last Admin: 09/23/16 09:33 Dose: 250 mg Cyclobenzaprine HCl (Flexeril) 5 mg PO HS [facility] Famotidine (Pepcid) 20 mg PO DAILY [facility] Last Admin: 09/23/16 09:33 Dose: 20 mg Fenofibrate (Tricor) 48 mg PO DAILY [facility] Last Admin: 09/23/16 09:34 Dose: 48 mg Heparin Sodium (Porcine) (Heparin) 5,000 units SC Q8 [facility] PRN Reason: Protocol Last Admin: 09/23/16 15:14 Dose: 5,000 units Ceftriaxone Sodium (Rocephin 1 Gram Ivpb) 1 gm in 100 mls @ 100 mls/hr IVPB DAILY [facility] PRN Reason: Protocol Last Admin: 09/23/16 09:34 Dose: 100 mls/hr Sodium Chloride (Sodium Chloride 0.9%) 1,000 mls @ 60 mls/hr IV .[id number] [facility]A Stop: 09/24/16 07:11 Last Admin: 09/23/16 15:17 Dose: 60 mls/hr Insulin Human Regular (Humulin R Med) 0 units SC ACHS [facility] PRN Reason: Protocol Last Admin: 09/23/16 12:29 Dose: 5 units Methylprednisolone (Solu-Medrol) 40 mg IVP DAILY [facility] Montelukast Sodium (Singulair) 10 mg PO HS [facility] Last Admin: 09/22/16 21:20 Dose: 10 mg Nicotine (Nicoderm Cq) 1 patch TD DAILY [facility] Last Admin: 09/23/16 09:33 Dose: 1 patch Oxycodone/Acetaminophen (Percocet 5/325 Mg Tab) 1 tab PO Q6H PRN PRN Reason: Pain, moderate (4-7) Stop: 09/26/16 15:45 - Labs Labs: 09/23/16 07:30 09/23/16 07:30 APTT 29.6 Seconds (23.7-30.8) 09/20/16 00:30 - Constitutional Appears: Well, No Acute Distress - Head Exam Head Exam: ATRAUMATIC, NORMAL INSPECTION, NORMOCEPHALIC - Eye Exam Eye Exam: EOMI, Normal appearance, PERRL - ENT Exam ENT Exam: Mucous Membranes Moist, Normal Exam - Respiratory Exam Respiratory Exam: Wheezes (L>R), NORMAL BREATHING PATTERN. absent: Chest Wall Tenderness, Rales, Rhonchi, Respiratory Distress, Stridor - Cardiovascular Exam Cardiovascular Exam: REGULAR RHYTHM, RRR, +S1, +S2. absent: Gallop, JVD, Rubs, Murmur - GI/Abdominal Exam GI & Abdominal Exam: Soft, Normal Bowel Sounds. absent: Tenderness - Neurological Exam Neurological Exam: Alert, Awake, Normal Gait - Psychiatric Exam Psychiatric exam: Anxious, Normal Affect, Normal Mood - Skin Skin Exam: Normal Color, Warm. absent: Cyanosis, Pallor Assessment and Plan - Assessment and Plan (Free Text) Assessment: 55yo F w/ PMHx COPD, asthma, DM2, Anxiety, and breast CA p/w shortness of breath : 1. SOB 2/2 COPD exacerbation 2. Hyperkalemia 3. LE swelling, r/o CHF 4. IDDM 5. DAHLIA 6.Back pain 7. Anxiety 8. Breast CA - non compliant - with possible METS 9. Tobacco user Plan: 1. Shortness of breath 2/2 COPD exacerbation - Solumedrol decreased to 40mg daily - continue Zithromax and Rocephin - continue Duoneb q6, singulair, Albuterol PRN - Ct showed dense consolidation with air bronchograms in posterior right upper lobe - pulm consulted, recs appreciated 2. Hyperkalemia - K 5.2 - Kayexalate 15mg given - f/u CMP 3. LE swelling, r/o CHF - ECHO done. EF >50%. LV normal size and function. - swelling improved compared to prior days 4. IDDM - Gluocse in the 400's - Nephro consulted - Humulin - A1C 7.6 - FS: 286, 378, 388, 463 5. DAHLIA - start NS 1L 60cc/hr - nephrology consulted 6. Back pain - pt started on Flexeril - CT d/w Dr. Tracey regarding possible mets to bone causing pain. Dr. Tracey did not see anything on second look of CT. 7. Anxiety - continue meds 8. Breast CA - non compliant - with possible METS - D/W Dr. Zelaya for outpatient f/u post-discharge 9. Tobacco user - continue Nicoderm - encourage cessation Diet: HHD GI/DVT ppx: Pepcid/heparin Patient was seen, discussed and evaluated with attending, Dr. Dylan Fuentes, PGY1
[2016-09-23] MEDS: Oxycodone/Acetaminophen 5/325 mg Tab PO PRN ×2 (16:42→22:25)
[2016-09-24] MEDS: Albuterol-Ipratrop 3 mg / 0.5 (3 ml) UD IH SCH ×5 (01:07→20:50)
[2016-09-24] MEDS: Insulin Reg-MEDIUM-Coverage SC SCH ×4 (08:28→21:45)
[2016-09-24] MEDS: MethylPREDNISolone 40 mg Vial IVP SCH (09:12)
[2016-09-24] MEDS: cefTRIAXone 1 gm 1 GM/100 ML BAG IVPB SCH (09:12)
[2016-09-24] MEDS: Oxycodone/Acetaminophen 5/325 mg Tab PO PRN ×2 (11:34→21:24)
[2016-09-24 13:08] LABS: ALB/GLOB RATIO 1.3 (1.1-1.8); ALBUMIN 3.7 g/dL (3.0-4.8); CALCIUM 8.4 mg/dL (8.4-10.5)
[2016-09-24 13:37] LABS: HEMOGLOBIN 12.1 gm/dL (12.0-16.0); MEAN CELL VOLUME 95.4 fL (80.0-105.0); MEAN CORPUSCULAR HEMOGLOBIN 29.3 pg (25.0-35.0); MEAN CORPUSCULAR HGB CONC 30.7 g/dl (31.0-37.0); MEAN PLATELET VOLUME 10.3 fl (7.0-11.0); RBC 4.13 10^6/uL (3.5-6.1); RED CELL DISTRIBUTION WIDTH 15.6 % (11.5-14.5); WHITE BLOOD COUNT 12.4 10^3/ul (4.5-11.0)
[2016-09-25] MEDS: Albuterol-Ipratrop 3 mg / 0.5 (3 ml) UD IH SCH ×4 (02:19→20:27)
[2016-09-25] MEDS: Oxycodone/Acetaminophen 5/325 mg Tab PO PRN ×3 (05:21→21:14)
[2016-09-25 08:04] LABS: HEMOGLOBIN 11.1 gm/dL (12.0-16.0); MEAN CELL VOLUME 96.6 fL (80.0-105.0); MEAN CORPUSCULAR HEMOGLOBIN 28.7 pg (25.0-35.0); MEAN CORPUSCULAR HGB CONC 29.7 g/dl (31.0-37.0); MEAN PLATELET VOLUME 10.6 fl (7.0-11.0); RBC 3.87 10^6/uL (3.5-6.1); RED CELL DISTRIBUTION WIDTH 15.6 % (11.5-14.5)
[2016-09-25 08:10] LABS: ALB/GLOB RATIO 1.3 (1.1-1.8); ALBUMIN 3.3 g/dL (3.0-4.8); CALCIUM 8.4 mg/dL (8.4-10.5)
[2016-09-25] MEDS: Insulin Reg-MEDIUM-Coverage SC SCH ×4 (08:36→22:00)
[2016-09-25] MEDS: cefTRIAXone 1 gm 1 GM/100 ML BAG IVPB SCH (09:19)
[2016-09-25] MEDS: MethylPREDNISolone 40 mg Vial IVP SCH ×2 (09:20→22:49)
[2016-09-25] MEDS: Albuterol 0.042% Inhal Sol (1.25 mg/3 mL) UD IH PRN (14:50)
[2016-09-26] MEDS: Albuterol-Ipratrop 3 mg / 0.5 (3 ml) UD IH SCH ×4 (01:13→19:30)
[2016-09-26 06:11] LABS: HEMOGLOBIN 11.1 gm/dL (12.0-16.0); MEAN CELL VOLUME 96.8 fL (80.0-105.0); MEAN CORPUSCULAR HEMOGLOBIN 29.2 pg (25.0-35.0); MEAN CORPUSCULAR HGB CONC 30.2 g/dl (31.0-37.0); MEAN PLATELET VOLUME 10.3 fl (7.0-11.0); PLATELET COUNT 348 10^3/uL (120.0-450.0); RED CELL DISTRIBUTION WIDTH 15.6 % (11.5-14.5); WHITE BLOOD COUNT 10.9 10^3/ul (4.5-11.0)
[2016-09-26 06:53] LABS: BAND 2 % (0-2); NEUTROPHIL 83 % (50.0-70.0)
[2016-09-26 06:54] LABS: LYMPHOCYTE 7 % (22.0-35.0); METAMYELOCYTE 1 %; MONOCYTE 5 % (1.0-6.0); MYELOCYTE 2 %; PLATELET ESTIMATE NORMAL (NORMAL)
[2016-09-26] MEDS: Insulin Reg-MEDIUM-Coverage SC SCH ×4 (08:29→22:27)
[2016-09-26] MEDS: Oxycodone/Acetaminophen 5/325 mg Tab PO PRN ×3 (09:06→21:23)
[2016-09-26] MEDS: cefTRIAXone 1 gm 1 GM/100 ML BAG IVPB SCH (09:07)
[2016-09-26] MEDS: MethylPREDNISolone 40 mg Vial IVP SCH ×2 (09:08→21:22)
[2016-09-26 12:41] LABS: HEMOGLOBIN 11.6 gm/dL (12.0-16.0); MEAN CELL VOLUME 95.9 fL (80.0-105.0); MEAN CORPUSCULAR HEMOGLOBIN 29.4 pg (25.0-35.0); MEAN CORPUSCULAR HGB CONC 30.7 g/dl (31.0-37.0); MEAN PLATELET VOLUME 10.3 fl (7.0-11.0); RBC 3.94 10^6/uL (3.5-6.1); RED CELL DISTRIBUTION WIDTH 15.3 % (11.5-14.5)
[2016-09-26 12:52] LABS: ALB/GLOB RATIO 1.5 (1.1-1.8); ALBUMIN 3.9 g/dL (3.0-4.8); CALCIUM 8.7 mg/dL (8.4-10.5)
--- NOTE | 2016-09-26 13:32 | CP.PCM.CON ---
History of Present Illness - History of Present Illness History of Present Illness: 55 y/o female presents with a 2 day duration of sob with minor sputum production. Patient's daughter reports that yesterday around 4 PM, patient started acting peculiar, her lips started turning blue, and she was struggling to breathe. EMS was called and patient was given Mg Sulfate, Salumeterol, and Albuterol, which did not alleviate patient's symptoms. Patient was ultimately placed on bipap, which pulled her O2 stats from low 90s to upper 90s. Patient was then taken off of bipap and put on 4L O2 NC. Patient admits to cough, but denies fever, chills, nausea, vomiting, diarrhea, and hemoptysis. PSHx: 2 Csxns PMHx: COPD, IDDM, Arthritis, Breast CA, L sided diminished hearing, Renal Calculi, Herniated Disk, Asthma, Past PNA, Hyponatremia, Hypokalemia All: Levofloxacin, Nystatin SocHx: Denies illicits, denies etoh; admits 2-3ppd smoking X 43 years Hosp: 2-3X per year for COPD exacerbations FHx: HTN, Ca Meds: Reviewed Labs: reviewed Review of Systems - Review of Systems All systems: reviewed and no additional remarkable complaints except Past Patient History - Infectious Disease Hx of Infectious Diseases: None - Tetanus Immunizations Tetanus Immunization: Unknown - Past Medical History & Family History Past Medical History?: Yes - Past Social History Smoking Status: Heavy Smoker > 10 Cigarettes Daily - CARDIAC Hx Cardiac Disorders: Yes Hx Hypertension: Yes - PULMONARY Hx Chronic Obstructive Pulmonary Disease (COPD): Yes - NEUROLOGICAL Hx Neurological Disorder: No - HEENT Hx HEENT Problems: Yes ([place] left ear) Hx Cataracts: Yes - RENAL Hx Chronic Kidney Disease: No (HYDRONEPHROSIS) Hx Kidney Stones: Yes - ENDOCRINE/METABOLIC Hx Diabetes Mellitus Type 2: Yes - HEMATOLOGICAL/ONCOLOGICAL Hx Blood Disorders: Yes Hx Cancer: Yes (breast cancer left dx 06/2015) Hx Chemotherapy: Yes - INTEGUMENTARY Hx Dermatological Problems: Yes Other/Comment: multiple age spots to back, small white areas of skin to left arm , ble skin discolorations, reddened buttock and hard red areas of skin to lower r and left buttock,multiple scabs and dry discolored skin areas to both arms, poor hygeine dirty toes and elbows - MUSCULOSKELETAL/RHEUMATOLOGICAL Hx Falls: Yes (past falls) - GASTROINTESTINAL Hx Gastrointestinal Disorders: Yes (esophagitis/ pelvic mass) Hx Gastroesophageal Reflux: Yes - GENITOURINARY/GYNECOLOGICAL Hx Genitourinary Disorders: Yes (PELVIC MASS) Hx Urinary Tract Infection: Yes - PSYCHIATRIC Hx Psychophysiologic Disorder: Yes Hx Anxiety: Yes - SURGICAL HISTORY Other/Comment: left breast bx 07/01/15, umbilical hernia repair, c section x 2 extopic , excision of abd tumor, rcw pac, umbilical hernia repair - ANESTHESIA Hx Anesthesia Reactions: No Hx Malignant Hyperthermia: No Meds Allergies/Adverse Reactions: Allergies Allergy/AdvReac Type Severity Reaction Status Date / Time levofloxacin [From Levaquin] Allergy SHORTNESS Verified 08/20/16 15:16 OF BREATH;PARANOID nystatin Allergy SWELLING Verified 08/20/16 15:16 - Medications Medications: Current Medications Albuterol Sulfate (Albuterol 0.042% Inhal Elvie (1.25mg/3ml) Ud) 1.25 mg IH Q3H PRN PRN Reason: Shortness of Breath Last Admin: 09/25/16 14:50 Dose: 1.25 mg Albuterol/Ipratropium (Duoneb 3 Mg/0.5 Mg (3 Ml) Ud) 3 ml IH [id number] [facility] Last Admin: 09/26/16 07:45 Dose: 3 ml Alprazolam (Xanax) 0.5 mg PO QID [facility] PRN Reason: Protocol Last Admin: 09/26/16 09:08 Dose: 0.5 mg Clonidine HCl (Catapres) 0.1 mg PO Q6H PRN PRN Reason: high blood pressure Last Admin: 09/24/16 18:32 Dose: 0.1 mg Cyclobenzaprine HCl (Flexeril) 5 mg PO HS [facility] Last Admin: 09/25/16 21:14 Dose: 5 mg Famotidine (Pepcid) 20 mg PO DAILY [facility] Last Admin: 09/26/16 09:07 Dose: 20 mg Fenofibrate (Tricor) 48 mg PO DAILY [facility] Last Admin: 09/26/16 09:08 Dose: 48 mg Heparin Sodium (Porcine) (Heparin) 5,000 units SC Q8 [facility] PRN Reason: Protocol Last Admin: 09/26/16 05:29 Dose: 5,000 units Ceftriaxone Sodium (Rocephin 1 Gram Ivpb) 1 gm in 100 mls @ 100 mls/hr IVPB DAILY [facility] PRN Reason: Protocol Last Admin: 09/26/16 09:07 Dose: 100 mls/hr Insulin Human Regular (Humulin R Med) 0 units SC ACHS [facility] PRN Reason: Protocol Last Admin: 09/26/16 12:07 Dose: 3 units Methylprednisolone (Solu-Medrol) 40 mg IVP Q12 [facility] Last Admin: 09/26/16 09:08 Dose: 40 mg Montelukast Sodium (Singulair) 10 mg PO HS [facility] Last Admin: 09/25/16 21:14 Dose: 10 mg Nicotine (Nicoderm Cq) 1 patch TD DAILY [facility] Last Admin: 09/26/16 09:05 Dose: 1 patch Oxycodone/Acetaminophen (Percocet 5/325 Mg Tab) 1 tab PO Q6H PRN PRN Reason: Pain, moderate (4-7) Stop: 09/26/16 15:45 Last Admin: 09/26/16 09:06 Dose: 1 tab Physical Exam - Constitutional Appears: Chronically Ill - Head Exam Head Exam: NORMAL INSPECTION, NORMOCEPHALIC - Eye Exam Eye Exam: PERRL - ENT Exam ENT Exam: Mucous Membranes Moist, Normal Exam - Respiratory Exam Respiratory Exam: Prolonged Expiratory Phase, Rhonchi, Wheezes, Respiratory Distress - Cardiovascular Exam Cardiovascular Exam: Irregular Rhythm, +S1, +S2 - GI/Abdominal Exam GI & Abdominal Exam: Distended, Normal Bowel Sounds, Soft - Extremities Exam Extremities exam: Positive for: normal inspection Results - Vital Signs Recent Vital Signs: Last Vital Signs Temp 98.1 F 09/26/16 08:14 Pulse 90 09/26/16 08:14 Resp 18 09/26/16 08:14 BP 121/57 L 09/26/16 08:14 Pulse Ox 98 09/26/16 08:14 - Labs Result Diagrams: 09/26/16 12:20 09/26/16 12:20 Labs: Laboratory Results - last 24 hr 09/25/16 09/25/16 09/26/16 15:42 21:08 05:58 WBC 10.9 RBC 3.80 Hgb 11.1 L Hct 36.8 MCV 96.8 MCH 29.2 MCHC 30.2 L RDW 15.6 H Plt Count 348 MPV 10.3 Neutrophils % (Manual) 83 H Band Neutrophils % 2 Lymphocytes % (Manual) 7 L Monocytes % (Manual) 5 Metamyelocytes % 1 Myelocytes % 2 Platelet Evaluation Normal Sodium Potassium Chloride Carbon Dioxide Anion Gap BUN Creatinine Est GFR ( Amer) Est GFR (Non-Af Amer) POC Glucose (mg/dL) 362 H 293 H Random Glucose Calcium Total Bilirubin AST ALT Alkaline Phosphatase Total Protein Albumin Globulin Albumin/Globulin Ratio 09/26/16 09/26/16 12:20 12:20 WBC 12.0 H RBC 3.94 Hgb 11.6 L Hct 37.8 MCV 95.9 MCH 29.4 MCHC 30.7 L RDW 15.3 H Plt Count 344 MPV 10.3 Neutrophils % (Manual) Band Neutrophils % Lymphocytes % (Manual) Monocytes % (Manual) Metamyelocytes % Myelocytes % Platelet Evaluation Sodium 138 Potassium 5.8 H* Chloride 102 Carbon Dioxide 27 Anion Gap 15 BUN 68 H Creatinine 1.7 H Est GFR ( Amer) 38 Est GFR (Non-Af Amer) 31 POC Glucose (mg/dL) Random Glucose 207 H Calcium 8.7 Total Bilirubin 0.2 AST 12 L ALT 20 Alkaline Phosphatase 79 Total Protein 6.5 Albumin 3.9 Globulin 2.6 Albumin/Globulin Ratio 1.5 Assessment & Plan - Assessment and Plan (Free Text) Assessment: Assessment 1.) COPD exacerbation 2.) Active Breast CA - non compliant - with possible METS LN 3.) Active Tobacco Abuse 4.) IDDM 5.) Chronic Pain 6.) Anxiety - Generalized and Distress Regarding Malignancy 7.) CKD3 8.) GERD 9.) Hyperkalemia 1. 2 gm K diet 2. respiratory treatments 3. Avoid nephrotoxins 4. Taper steroids thank u for the coutesy of this consultation - Date & Time Date: 09/26/16 Time: 13:00
--- NOTE | 2016-09-26 15:22 | CP.PCM.PN ---
Subjective - Date & Time of Evaluation Date of Evaluation: 09/25/16 Time of Evaluation: 09:00 - Subjective Subjective: still cough with wheez but less . no fever, no chest pain , no dyspnea Objective - Vital Signs/Intake and Output Vital Signs (last 24 hours): Temp Pulse Resp BP Pulse Ox 98.3 F 98 H 20 153/81 H 95 09/25/16 17:23 09/25/16 17:23 09/25/16 17:23 09/25/16 17:23 09/25/16 17:23 Intake and Output: 09/25/16 09/26/16 18:59 06:59 Intake Total 360 960 Output Total 200 Balance 360 760 - Medications Medications: Current Medications Albuterol Sulfate (Albuterol 0.042% Inhal Elvie (1.25mg/3ml) Ud) 1.25 mg IH Q3H PRN PRN Reason: Shortness of Breath Last Admin: 09/25/16 14:50 Dose: 1.25 mg Albuterol/Ipratropium (Duoneb 3 Mg/0.5 Mg (3 Ml) Ud) 3 ml IH [id number] [facility] Last Admin: 09/25/16 20:27 Dose: 3 ml Alprazolam (Xanax) 0.5 mg PO QID [facility] PRN Reason: Protocol Last Admin: 09/25/16 21:14 Dose: 0.5 mg Azithromycin (Zithromax) 250 mg PO DAILY [facility] PRN Reason: Protocol Last Admin: 09/25/16 09:19 Dose: 250 mg Clonidine HCl (Catapres) 0.1 mg PO Q6H PRN PRN Reason: high blood pressure Last Admin: 09/24/16 18:32 Dose: 0.1 mg Cyclobenzaprine HCl (Flexeril) 5 mg PO HS [facility] Last Admin: 09/25/16 21:14 Dose: 5 mg Famotidine (Pepcid) 20 mg PO DAILY [facility] Last Admin: 09/25/16 09:20 Dose: 20 mg Fenofibrate (Tricor) 48 mg PO DAILY [facility] Last Admin: 09/25/16 09:19 Dose: 48 mg Heparin Sodium (Porcine) (Heparin) 5,000 units SC Q8 [facility] PRN Reason: Protocol Last Admin: 09/25/16 21:13 Dose: 5,000 units Ceftriaxone Sodium (Rocephin 1 Gram Ivpb) 1 gm in 100 mls @ 100 mls/hr IVPB DAILY [facility] PRN Reason: Protocol Last Admin: 09/25/16 09:19 Dose: 100 mls/hr Insulin Human Regular (Humulin R Med) 0 units SC ACHS [facility] PRN Reason: Protocol Last Admin: 09/25/16 17:08 Dose: 8 units Methylprednisolone (Solu-Medrol) 40 mg IVP Q12 [facility] Montelukast Sodium (Singulair) 10 mg PO HS [facility] Last Admin: 09/25/16 21:14 Dose: 10 mg Nicotine (Nicoderm Cq) 1 patch TD DAILY [facility] Last Admin: 09/25/16 09:22 Dose: 1 patch Oxycodone/Acetaminophen (Percocet 5/325 Mg Tab) 1 tab PO Q6H PRN PRN Reason: Pain, moderate (4-7) Stop: 09/26/16 15:45 Last Admin: 09/25/16 21:14 Dose: 1 tab - Labs Labs: 09/25/16 07:30 09/25/16 07:30 APTT 29.6 Seconds (23.7-30.8) 09/20/16 00:30 - Constitutional Appears: Well - Eye Exam Eye Exam: EOMI, Normal appearance, PERRL Pupil Exam: NORMAL ACCOMODATION, PERRL - ENT Exam ENT Exam: Mucous Membranes Moist, Normal Exam - Respiratory Exam Respiratory Exam: Prolonged Expiratory Phase - GI/Abdominal Exam GI & Abdominal Exam: Soft, Normal Bowel Sounds. absent: Tenderness - Rectal Exam Rectal Exam: Deferred - Skin Skin Exam: Dry, Intact, Normal Color, Warm Assessment and Plan (1) COPD (chronic obstructive pulmonary disease) Status: Acute (2) Dehydration Status: Acute (3) Breast mass Status: Acute (4) Hyperglycemia Status: Acute (5) Diabetes Status: Acute (6) Anxiety Status: Acute (7) Osteoarthritis Status: Acute (8) Tobacco abuse Status: Acute (9) Tobacco abuse Status: Acute - Assessment and Plan (Free Text) Plan: increase steroids iv, continue neublizer insulin xanax, oxycodone for osteoarthritis
--- NOTE | 2016-09-26 15:23 | CP.PCM.PN ---
Subjective - Date & Time of Evaluation Date of Evaluation: 09/24/16 Time of Evaluation: 09:00 - Subjective Subjective: feel better still dyspnea, on iv steroids, cough,no fever, no noseau, vomiting or diarhea Objective - Vital Signs/Intake and Output Vital Signs (last 24 hours): Temp Pulse Resp BP Pulse Ox 98.3 F 98 H 20 153/81 H 95 09/25/16 17:23 09/25/16 17:23 09/25/16 17:23 09/25/16 17:23 09/25/16 17:23 Intake and Output: 09/25/16 09/26/16 18:59 06:59 Intake Total 360 960 Output Total 200 Balance 360 760 - Medications Medications: Current Medications Albuterol Sulfate (Albuterol 0.042% Inhal Elvie (1.25mg/3ml) Ud) 1.25 mg IH Q3H PRN PRN Reason: Shortness of Breath Last Admin: 09/25/16 14:50 Dose: 1.25 mg Albuterol/Ipratropium (Duoneb 3 Mg/0.5 Mg (3 Ml) Ud) 3 ml IH [id number] [facility] Last Admin: 09/25/16 20:27 Dose: 3 ml Alprazolam (Xanax) 0.5 mg PO QID [facility] PRN Reason: Protocol Last Admin: 09/25/16 21:14 Dose: 0.5 mg Azithromycin (Zithromax) 250 mg PO DAILY [facility] PRN Reason: Protocol Last Admin: 09/25/16 09:19 Dose: 250 mg Clonidine HCl (Catapres) 0.1 mg PO Q6H PRN PRN Reason: high blood pressure Last Admin: 09/24/16 18:32 Dose: 0.1 mg Cyclobenzaprine HCl (Flexeril) 5 mg PO HS [facility] Last Admin: 09/25/16 21:14 Dose: 5 mg Famotidine (Pepcid) 20 mg PO DAILY [facility] Last Admin: 09/25/16 09:20 Dose: 20 mg Fenofibrate (Tricor) 48 mg PO DAILY [facility] Last Admin: 09/25/16 09:19 Dose: 48 mg Heparin Sodium (Porcine) (Heparin) 5,000 units SC Q8 [facility] PRN Reason: Protocol Last Admin: 09/25/16 21:13 Dose: 5,000 units Ceftriaxone Sodium (Rocephin 1 Gram Ivpb) 1 gm in 100 mls @ 100 mls/hr IVPB DAILY [facility] PRN Reason: Protocol Last Admin: 09/25/16 09:19 Dose: 100 mls/hr Insulin Human Regular (Humulin R Med) 0 units SC ACHS [facility] PRN Reason: Protocol Last Admin: 09/25/16 17:08 Dose: 8 units Methylprednisolone (Solu-Medrol) 40 mg IVP Q12 [facility] Montelukast Sodium (Singulair) 10 mg PO HS [facility] Last Admin: 09/25/16 21:14 Dose: 10 mg Nicotine (Nicoderm Cq) 1 patch TD DAILY [facility] Last Admin: 09/25/16 09:22 Dose: 1 patch Oxycodone/Acetaminophen (Percocet 5/325 Mg Tab) 1 tab PO Q6H PRN PRN Reason: Pain, moderate (4-7) Stop: 09/26/16 15:45 Last Admin: 09/25/16 21:14 Dose: 1 tab - Labs Labs: 09/25/16 07:30 09/25/16 07:30 APTT 29.6 Seconds (23.7-30.8) 09/20/16 00:30 - Constitutional Appears: Well - Head Exam Head Exam: ATRAUMATIC, NORMAL INSPECTION, NORMOCEPHALIC - Eye Exam Eye Exam: EOMI, Normal appearance, PERRL - ENT Exam ENT Exam: Mucous Membranes Moist, Normal Exam. absent: Mucous Membranes Dry, Normal External Ear Exam, Normal Oropharynx, TM's Normal Bilaterally - Neck Exam Neck Exam: Full ROM, Normal Inspection. absent: Lymphadenopathy - Respiratory Exam Respiratory Exam: Chest Wall Tenderness, Clear to Ausculation Bilateral, NORMAL BREATHING PATTERN - Cardiovascular Exam Cardiovascular Exam: REGULAR RHYTHM, +S1, +S2. absent: Murmur - GI/Abdominal Exam GI & Abdominal Exam: Soft, Normal Bowel Sounds. absent: Tenderness - Rectal Exam Rectal Exam: Deferred - Neurological Exam Neurological Exam: Alert, Awake, CN II-XII Intact, Normal Gait, Oriented x3 Assessment and Plan (1) COPD (chronic obstructive pulmonary disease) Status: Acute (2) Dehydration Status: Acute - Assessment and Plan (Free Text) Assessment: diabetes mellitus continue insulin breast cancer f/up as outpatient chronic anxiety chronic osteoarthritis Plan: continue iv steroids, neublizers insulin coverage continue current mrds
--- NOTE | 2016-09-26 20:30 | CP.PCM.PN ---
Subjective - Date & Time of Evaluation Date of Evaluation: 09/26/16 Time of Evaluation: 16:00 - Subjective Subjective: 55 y/o female presents with a 2 day duration of sob with minor sputum production. Patient's daughter reports that she was struggling to breathe. EMS was called and patient was given Mg Sulfate, Salumeterol, and Albuterol, which did not alleviate patient's symptoms. Patient was ultimately placed on bipap, which pulled her O2 stats from low 90s to upper 90s. Patient was then taken off of bipap and put on 4L O2 NC. Patient admits to cough, but denies fever, chills, nausea, vomiting, diarrhea, and hemoptysis.Since admission she feels better, stile has some cough. Objective - Vital Signs/Intake and Output Vital Signs (last 24 hours): Temp Pulse Resp BP Pulse Ox 98.4 F 109 H 19 156/66 H 95 09/26/16 16:00 09/26/16 16:00 09/26/16 16:00 09/26/16 16:00 09/26/16 16:00 Intake and Output: 09/26/16 09/27/16 18:59 06:59 Intake Total 1080 Balance 1080 - Medications Medications: Current Medications Albuterol Sulfate (Albuterol 0.042% Inhal Elvie (1.25mg/3ml) Ud) 1.25 mg IH Q3H PRN PRN Reason: Shortness of Breath Last Admin: 09/25/16 14:50 Dose: 1.25 mg Albuterol/Ipratropium (Duoneb 3 Mg/0.5 Mg (3 Ml) Ud) 3 ml IH [id number] [facility] Last Admin: 09/26/16 19:30 Dose: 3 ml Alprazolam (Xanax) 0.5 mg PO QID [facility] PRN Reason: Protocol Last Admin: 09/26/16 17:18 Dose: 0.5 mg Clonidine HCl (Catapres) 0.1 mg PO Q6H PRN PRN Reason: high blood pressure Last Admin: 09/24/16 18:32 Dose: 0.1 mg Cyclobenzaprine HCl (Flexeril) 5 mg PO HS [facility] Last Admin: 09/25/16 21:14 Dose: 5 mg Famotidine (Pepcid) 20 mg PO DAILY [facility] Last Admin: 09/26/16 09:07 Dose: 20 mg Fenofibrate (Tricor) 48 mg PO DAILY [facility] Last Admin: 09/26/16 09:08 Dose: 48 mg Heparin Sodium (Porcine) (Heparin) 5,000 units SC Q8 [facility] PRN Reason: Protocol Last Admin: 09/26/16 13:34 Dose: 5,000 units Ceftriaxone Sodium (Rocephin 1 Gram Ivpb) 1 gm in 100 mls @ 100 mls/hr IVPB DAILY [facility] PRN Reason: Protocol Last Admin: 09/26/16 09:07 Dose: 100 mls/hr Insulin Human Regular (Humulin R Med) 0 units SC ACHS [facility] PRN Reason: Protocol Last Admin: 09/26/16 17:18 Dose: 7 units Methylprednisolone (Solu-Medrol) 40 mg IVP Q12 [facility] Last Admin: 09/26/16 09:08 Dose: 40 mg Montelukast Sodium (Singulair) 10 mg PO HS [facility] Last Admin: 09/25/16 21:14 Dose: 10 mg Nicotine (Nicoderm Cq) 1 patch TD DAILY [facility] Last Admin: 09/26/16 09:05 Dose: 1 patch - Labs Labs: 09/26/16 12:20 09/26/16 12:20 APTT 29.6 Seconds (23.7-30.8) 09/20/16 00:30 - Constitutional Appears: No Acute Distress - Head Exam Head Exam: ATRAUMATIC, NORMAL INSPECTION, NORMOCEPHALIC - Respiratory Exam Respiratory Exam: Rhonchi, Wheezes - Cardiovascular Exam Cardiovascular Exam: REGULAR RHYTHM, +S1, +S2. absent: Murmur - GI/Abdominal Exam GI & Abdominal Exam: Soft, Normal Bowel Sounds. absent: Tenderness - Neurological Exam Neurological Exam: Alert, Awake, CN II-XII Intact, Normal Gait, Oriented x3 - Psychiatric Exam Psychiatric exam: Anxious - Skin Skin Exam: Dry, Intact, Normal Color, Warm Assessment and Plan (1) Breast cancer Status: Acute (2) Anxiety Status: Acute (3) COPD (chronic obstructive pulmonary disease) Status: Acute (4) Diabetes Status: Acute - Assessment and Plan (Free Text) Assessment: non compliant with meds, followup and continue with iv and inhale bronchodilators, will repeat chest X Rays
[2016-09-27] MEDS: Albuterol-Ipratrop 3 mg / 0.5 (3 ml) UD IH SCH ×4 (02:07→20:30)
[2016-09-27 06:50] LABS: BASO # 0.01 K/mm3 (0.0-2.0); BASO % 0.1 % (0.0-3.0); GRAN # 10.36 (1.4-6.5); GRAN % 89.9 % (50.0-68.0); HEMOGLOBIN 11.5 gm/dL (12.0-16.0); LYMPH # 0.7 (1.2-3.4); LYMPH % 6.2 % (22.0-35.0); MEAN CELL VOLUME 96.4 fL (80.0-105.0); MEAN CORPUSCULAR HEMOGLOBIN 29.7 pg (25.0-35.0); MEAN CORPUSCULAR HGB CONC 30.8 g/dl (31.0-37.0); MEAN PLATELET VOLUME 10.4 fl (7.0-11.0); MONO # 0.4 (0.1-0.6); MONO % 3.8 % (1.0-6.0); PLATELET COUNT 343 10^3/uL (120.0-450.0); RBC 3.87 10^6/uL (3.5-6.1); RED CELL DISTRIBUTION WIDTH 15.6 % (11.5-14.5); WHITE BLOOD COUNT 11.5 10^3/ul (4.5-11.0)
[2016-09-27 07:03] LABS: ALB/GLOB RATIO 1.4 (1.1-1.8); ALBUMIN 3.5 g/dL (3.0-4.8); CALCIUM 8.3 mg/dL (8.4-10.5)
--- NOTE | 2016-09-27 09:51 | CP.PCM.PN ---
Subjective - Date & Time of Evaluation Date of Evaluation: 09/27/16 Time of Evaluation: 08:55 - Subjective Subjective: Awake, alert C/o JACOBS Cough better C/o back pain Objective - Vital Signs/Intake and Output Vital Signs (last 24 hours): Temp Pulse Resp BP Pulse Ox 98.8 F 100 H 20 133/63 100 09/27/16 08:35 09/27/16 08:35 09/27/16 08:35 09/27/16 08:35 09/27/16 08:35 Intake and Output: 09/27/16 09/27/16 06:59 18:59 Intake Total 540 120 Balance 540 120 - Medications Medications: Current Medications Albuterol Sulfate (Albuterol 0.042% Inhal Elvie (1.25mg/3ml) Ud) 1.25 mg IH Q3H PRN PRN Reason: Shortness of Breath Last Admin: 09/25/16 14:50 Dose: 1.25 mg Albuterol/Ipratropium (Duoneb 3 Mg/0.5 Mg (3 Ml) Ud) 3 ml IH [id number] [facility] Last Admin: 09/27/16 07:38 Dose: 3 ml Alprazolam (Xanax) 0.5 mg PO QID [facility] PRN Reason: Protocol Last Admin: 09/26/16 21:23 Dose: 0.5 mg Clonidine HCl (Catapres) 0.1 mg PO Q6H PRN PRN Reason: high blood pressure Last Admin: 09/24/16 18:32 Dose: 0.1 mg Cyclobenzaprine HCl (Flexeril) 5 mg PO HS [facility] Last Admin: 09/26/16 21:23 Dose: 5 mg Famotidine (Pepcid) 20 mg PO DAILY [facility] Last Admin: 09/26/16 09:07 Dose: 20 mg Fenofibrate (Tricor) 48 mg PO DAILY [facility] Last Admin: 09/26/16 09:08 Dose: 48 mg Heparin Sodium (Porcine) (Heparin) 5,000 units SC Q8 [facility] PRN Reason: Protocol Last Admin: 09/27/16 05:50 Dose: 5,000 units Ceftriaxone Sodium (Rocephin 1 Gram Ivpb) 1 gm in 100 mls @ 100 mls/hr IVPB DAILY [facility] PRN Reason: Protocol Last Admin: 09/26/16 09:07 Dose: 100 mls/hr Insulin Human Regular (Humulin R Med) 0 units SC ACHS [facility] PRN Reason: Protocol Last Admin: 09/26/16 22:27 Dose: Not Given Methylprednisolone (Solu-Medrol) 40 mg IVP Q12 [facility] Last Admin: 09/26/16 21:22 Dose: 40 mg Montelukast Sodium (Singulair) 10 mg PO HS [facility] Last Admin: 09/26/16 21:23 Dose: 10 mg Nicotine (Nicoderm Cq) 1 patch TD DAILY [facility] Last Admin: 09/26/16 09:05 Dose: 1 patch Oxycodone/Acetaminophen (Percocet 5/325 Mg Tab) 1 tab PO Q6H PRN PRN Reason: Pain, moderate (4-7) Stop: 09/29/16 20:43 Last Admin: 09/26/16 21:23 Dose: 1 tab - Labs Labs: 09/27/16 06:30 09/27/16 06:30 APTT 29.6 Seconds (23.7-30.8) 09/20/16 00:30 - Constitutional Appears: Non-toxic, No Acute Distress - Head Exam Head Exam: ATRAUMATIC, NORMAL INSPECTION, NORMOCEPHALIC - Eye Exam Eye Exam: Normal appearance, Periorbital swelling - Respiratory Exam Respiratory Exam: Rhonchi, Wheezes, NORMAL BREATHING PATTERN - Cardiovascular Exam Cardiovascular Exam: REGULAR RHYTHM, +S1, +S2 - GI/Abdominal Exam GI & Abdominal Exam: Distended, Soft, Normal Bowel Sounds - Extremities Exam Extremities Exam: Pedal Edema - Neurological Exam Neurological Exam: Alert, Awake Assessment and Plan - Assessment and Plan (Free Text) Assessment: 1.) COPD exacerbation 2.) Active Breast CA - non compliant - with possible METS LN 3.) Active Tobacco Abuse 4.) IDDM 5.) Chronic Pain 6.) Anxiety - Generalized and Distress Regarding Malignancy 7.) CKD3 with DAHLIA 8.) GERD 9.) Hyperkalemia 1. 2 gm K diet 2. respiratory treatments 3. Avoid nephrotoxins 4. Taper steroids 5. 24hr urine for protein and cr cl
[2016-09-27] MEDS: MethylPREDNISolone 40 mg Vial IVP SCH ×2 (09:52→21:31)
[2016-09-27] MEDS: cefTRIAXone 1 gm 1 GM/100 ML BAG IVPB SCH (09:54)
[2016-09-27] MEDS: Oxycodone/Acetaminophen 5/325 mg Tab PO PRN ×2 (09:54→15:35)
--- NOTE | 2016-09-27 10:50 | CP.PCM.PN ---
Subjective - Date & Time of Evaluation Date of Evaluation: 09/26/16 Time of Evaluation: 20:00 - Subjective Subjective: c/o dyspnea wheese, still sob, no fever, no noseau,seen by dr pierre , bm ok, no hemoptyusis Objective - Vital Signs/Intake and Output Vital Signs (last 24 hours): Temp Pulse Resp BP Pulse Ox 98.8 F 100 H 20 133/63 100 09/27/16 08:35 09/27/16 08:35 09/27/16 08:35 09/27/16 08:35 09/27/16 08:35 Intake and Output: 09/27/16 09/27/16 06:59 18:59 Intake Total 540 120 Balance 540 120 - Medications Medications: Current Medications Albuterol Sulfate (Albuterol 0.042% Inhal Elvie (1.25mg/3ml) Ud) 1.25 mg IH Q3H PRN PRN Reason: Shortness of Breath Last Admin: 09/25/16 14:50 Dose: 1.25 mg Albuterol/Ipratropium (Duoneb 3 Mg/0.5 Mg (3 Ml) Ud) 3 ml IH [id number] [facility] Last Admin: 09/27/16 07:38 Dose: 3 ml Alprazolam (Xanax) 0.5 mg PO QID [facility] PRN Reason: Protocol Last Admin: 09/27/16 09:50 Dose: 0.5 mg Clonidine HCl (Catapres) 0.1 mg PO Q6H PRN PRN Reason: high blood pressure Last Admin: 09/24/16 18:32 Dose: 0.1 mg Cyclobenzaprine HCl (Flexeril) 5 mg PO HS [facility] Last Admin: 09/26/16 21:23 Dose: 5 mg Famotidine (Pepcid) 20 mg PO DAILY [facility] Last Admin: 09/27/16 09:51 Dose: 20 mg Fenofibrate (Tricor) 48 mg PO DAILY [facility] Last Admin: 09/27/16 09:52 Dose: 48 mg Heparin Sodium (Porcine) (Heparin) 5,000 units SC Q8 [facility] PRN Reason: Protocol Last Admin: 09/27/16 05:50 Dose: 5,000 units Ceftriaxone Sodium (Rocephin 1 Gram Ivpb) 1 gm in 100 mls @ 100 mls/hr IVPB DAILY [facility] PRN Reason: Protocol Last Admin: 09/27/16 09:54 Dose: 100 mls/hr Insulin Human Regular (Humulin R Med) 0 units SC ACHS [facility] PRN Reason: Protocol Last Admin: 09/26/16 22:27 Dose: Not Given Methylprednisolone (Solu-Medrol) 40 mg IVP Q12 [facility] Last Admin: 09/27/16 09:52 Dose: 40 mg Montelukast Sodium (Singulair) 10 mg PO HS [facility] Last Admin: 09/26/16 21:23 Dose: 10 mg Nicotine (Nicoderm Cq) 1 patch TD DAILY [facility] Last Admin: 09/27/16 09:51 Dose: 1 patch Oxycodone/Acetaminophen (Percocet 5/325 Mg Tab) 1 tab PO Q6H PRN PRN Reason: Pain, moderate (4-7) Stop: 09/29/16 20:43 Last Admin: 09/27/16 09:54 Dose: 1 tab - Labs Labs: 09/27/16 06:30 09/27/16 06:30 APTT 29.6 Seconds (23.7-30.8) 09/20/16 00:30 - Constitutional Appears: Well - Head Exam Head Exam: ATRAUMATIC, NORMAL INSPECTION, NORMOCEPHALIC - Eye Exam Eye Exam: EOMI, Normal appearance, PERRL - ENT Exam ENT Exam: Mucous Membranes Moist, Normal Exam - Neck Exam Neck Exam: Full ROM, Normal Inspection. absent: Lymphadenopathy - Respiratory Exam Respiratory Exam: Clear to Ausculation Bilateral, NORMAL BREATHING PATTERN - Cardiovascular Exam Cardiovascular Exam: Tachycardia - GI/Abdominal Exam GI & Abdominal Exam: Soft, Normal Bowel Sounds. absent: Tenderness - Rectal Exam Rectal Exam: Deferred - Neurological Exam Neurological Exam: Alert, Awake, CN II-XII Intact, Normal Gait, Oriented x3 - Psychiatric Exam Psychiatric exam: Normal Affect, Normal Mood - Skin Skin Exam: Dry, Intact, Normal Color, Warm Assessment and Plan (1) COPD (chronic obstructive pulmonary disease) Status: Acute (2) Dehydration Status: Acute (3) Diabetes Status: Acute (4) Osteoarthritis Status: Acute (5) Tobacco abuse Status: Acute (6) COPD bronchitis Status: Acute (7) Pneumonia Status: Acute - Assessment and Plan (Free Text) Assessment: continus inhaled and iv bronchodilator renal failure , aetiology most likely diabetes, f/up with dr nice
[2016-09-27] MEDS: Insulin Reg-MEDIUM-Coverage SC SCH ×4 (11:34→21:46)
--- NOTE | 2016-09-27 15:36 | RAD ---
HISTORY: pneumonia COMPARISON: 09/19/2016 TECHNIQUE: Chest PA and lateral FINDINGS: LUNGS: There is a dense alveolar infiltrate in the right middle lobe PLEURA: No significant pleural effusion identified. No pneumothorax apparent. CARDIOVASCULAR: Normal. OSSEOUS STRUCTURES: No significant abnormalities. VISUALIZED UPPER ABDOMEN: Normal. OTHER FINDINGS: None. IMPRESSION: Right middle lobe pneumonia
--- NOTE | 2016-09-27 22:57 | CP.PCM.PN ---
Subjective - Date & Time of Evaluation Date of Evaluation: 09/27/16 Time of Evaluation: 16:00 - Subjective Subjective: 55 y/o female presents with a 2 day duration of sob with minor sputum production. Patient's daughter reports that she was struggling to breathe. EMS was called and patient was given Mg Sulfate, Salumeterol, and Albuterol, which did not alleviate patient's symptoms. Patient was ultimately placed on bipap, which pulled her O2 stats from low 90s to upper 90s. Patient was then taken off of bipap and put on 4L O2 NC. Patient admits to cough, but denies fever, chills, nausea, vomiting, diarrhea, and hemoptysis.Since admission she feels better, stile has some cough.and leg swelling Objective - Vital Signs/Intake and Output Vital Signs (last 24 hours): Temp Pulse Resp BP Pulse Ox 98.5 F 107 H 20 170/76 H 95 09/27/16 16:00 09/27/16 16:00 09/27/16 16:00 09/27/16 16:00 09/27/16 16:00 Intake and Output: 09/27/16 09/28/16 18:59 06:59 Intake Total 960 1020 Output Total 450 800 Balance 510 220 - Medications Medications: Current Medications Albuterol Sulfate (Albuterol 0.042% Inhal Elvie (1.25mg/3ml) Ud) 1.25 mg IH Q3H PRN PRN Reason: Shortness of Breath Last Admin: 09/25/16 14:50 Dose: 1.25 mg Albuterol/Ipratropium (Duoneb 3 Mg/0.5 Mg (3 Ml) Ud) 3 ml IH [id number] [facility] Last Admin: 09/27/16 20:30 Dose: 3 ml Alprazolam (Xanax) 0.5 mg PO QID [facility] PRN Reason: Protocol Last Admin: 09/27/16 22:02 Dose: 0.5 mg Clonidine HCl (Catapres) 0.1 mg PO Q6H PRN PRN Reason: high blood pressure Last Admin: 09/24/16 18:32 Dose: 0.1 mg Cyclobenzaprine HCl (Flexeril) 5 mg PO HS [facility] Last Admin: 09/27/16 21:30 Dose: 5 mg Famotidine (Pepcid) 20 mg PO DAILY [facility] Last Admin: 09/27/16 09:51 Dose: 20 mg Fenofibrate (Tricor) 48 mg PO DAILY [facility] Last Admin: 09/27/16 09:52 Dose: 48 mg Heparin Sodium (Porcine) (Heparin) 5,000 units SC Q8 [facility] PRN Reason: Protocol Last Admin: 09/27/16 21:32 Dose: 5,000 units Ceftriaxone Sodium (Rocephin 1 Gram Ivpb) 1 gm in 100 mls @ 100 mls/hr IVPB DAILY [facility] PRN Reason: Protocol Last Admin: 09/27/16 09:54 Dose: 100 mls/hr Insulin Human Regular (Humulin R Med) 0 units SC ACHS [facility] PRN Reason: Protocol Last Admin: 09/27/16 21:46 Dose: Not Given Methylprednisolone (Solu-Medrol) 40 mg IVP Q12 [facility] Last Admin: 09/27/16 21:31 Dose: 40 mg Montelukast Sodium (Singulair) 10 mg PO HS [facility] Last Admin: 09/27/16 21:31 Dose: 10 mg Nicotine (Nicoderm Cq) 1 patch TD DAILY [facility] Last Admin: 09/27/16 09:51 Dose: 1 patch Oxycodone/Acetaminophen (Percocet 5/325 Mg Tab) 1 tab PO Q6H PRN PRN Reason: Pain, moderate (4-7) Stop: 09/29/16 20:43 Last Admin: 09/27/16 15:35 Dose: 1 tab - Labs Labs: 09/27/16 06:30 09/27/16 06:30 APTT 29.6 Seconds (23.7-30.8) 09/20/16 00:30 - Constitutional Appears: No Acute Distress - Head Exam Head Exam: ATRAUMATIC, NORMAL INSPECTION, NORMOCEPHALIC - ENT Exam ENT Exam: Mucous Membranes Moist, Normal Exam - Neck Exam Neck Exam: Full ROM, Normal Inspection. absent: Lymphadenopathy - Respiratory Exam Respiratory Exam: Rhonchi. absent: Wheezes - Cardiovascular Exam Cardiovascular Exam: REGULAR RHYTHM, +S1, +S2. absent: Murmur - GI/Abdominal Exam GI & Abdominal Exam: Soft, Normal Bowel Sounds. absent: Tenderness - Extremities Exam Extremities Exam: Full ROM, Normal Capillary Refill, Pedal Edema - Neurological Exam Neurological Exam: Alert, Awake, CN II-XII Intact, Oriented x3 - Psychiatric Exam Psychiatric exam: Anxious Assessment and Plan (1) Breast cancer Assessment & Plan: oncology follow up Status: Acute (2) Anxiety Assessment & Plan: anxiolytic Status: Acute (3) COPD (chronic obstructive pulmonary disease) Assessment & Plan: decrease solumedrole, continue inhale broncho dilators Status: Acute (4) Diabetes Assessment & Plan: follow ZACH castro Status: Acute (5) Renal failure Assessment & Plan: follow BUN/Creatinine avoid nephro toxic drugs Status: Acute
[2016-09-28] MEDS: Oxycodone/Acetaminophen 5/325 mg Tab PO PRN ×4 (00:40→23:28)
[2016-09-28] MEDS: Albuterol-Ipratrop 3 mg / 0.5 (3 ml) UD IH SCH ×5 (01:13→20:13)
[2016-09-28] MEDS: Insulin Reg-MEDIUM-Coverage SC SCH ×4 (08:39→21:28)
[2016-09-28] MEDS: cefTRIAXone 1 gm 1 GM/100 ML BAG IVPB SCH (09:45)
[2016-09-28] MEDS: MethylPREDNISolone 40 mg Vial IVP SCH ×2 (09:51→21:27)
[2016-09-28 11:45] LABS: BASO # 0.01 K/mm3 (0.0-2.0); BASO % 0.1 % (0.0-3.0); GRAN # 11.25 (1.4-6.5); GRAN % 86.3 % (50.0-68.0); HEMOGLOBIN 11.8 gm/dL (12.0-16.0); LYMPH # 0.9 (1.2-3.4); LYMPH % 6.6 % (22.0-35.0); MEAN CORPUSCULAR HEMOGLOBIN 29.4 pg (25.0-35.0); MEAN CORPUSCULAR HGB CONC 30.6 g/dl (31.0-37.0); MONO # 0.9 (0.1-0.6); PLATELET COUNT 300 10^3/uL (120.0-450.0); RBC 4.01 10^6/uL (3.5-6.1); RED CELL DISTRIBUTION WIDTH 15.6 % (11.5-14.5)
[2016-09-28 11:50] LABS: URINE CREATININE 29.6 mg/dL
[2016-09-28 11:53] LABS: ALB/GLOB RATIO 1.4 (1.1-1.8); ALBUMIN 3.7 g/dL (3.0-4.8); CALCIUM 8.4 mg/dL (8.4-10.5)
[2016-09-28] MEDS: Sod Polystyrene Sulf 15 gm/60 ml Oral Susp PO SCH ×2 (12:41→17:17)
--- NOTE | 2016-09-28 13:08 | CP.PCM.PN ---
Subjective - Date & Time of Evaluation Date of Evaluation: 09/28/16 Time of Evaluation: 12:20 - Subjective Subjective: No SOB at rest, O2 sat dropping off O2 Objective - Vital Signs/Intake and Output Vital Signs (last 24 hours): Temp Pulse Resp BP Pulse Ox 97.8 F 101 H 18 143/65 97 09/28/16 08:36 09/28/16 08:36 09/28/16 09:52 09/28/16 08:36 09/28/16 09:52 Intake and Output: 09/28/16 09/28/16 06:59 18:59 Intake Total 1360 Output Total 1650 Balance -290 - Medications Medications: Current Medications Albuterol Sulfate (Albuterol 0.042% Inhal Elvie (1.25mg/3ml) Ud) 1.25 mg IH Q3H PRN PRN Reason: Shortness of Breath Last Admin: 09/25/16 14:50 Dose: 1.25 mg Albuterol/Ipratropium (Duoneb 3 Mg/0.5 Mg (3 Ml) Ud) 3 ml IH [id number] [facility] Last Admin: 09/28/16 07:53 Dose: Not Given Alprazolam (Xanax) 0.5 mg PO QID [facility] PRN Reason: Protocol Last Admin: 09/28/16 09:46 Dose: 0.5 mg Clonidine HCl (Catapres) 0.1 mg PO Q6H PRN PRN Reason: high blood pressure Last Admin: 09/24/16 18:32 Dose: 0.1 mg Cyclobenzaprine HCl (Flexeril) 5 mg PO HS [facility] Last Admin: 09/27/16 21:30 Dose: 5 mg Famotidine (Pepcid) 20 mg PO DAILY [facility] Last Admin: 09/28/16 09:48 Dose: 20 mg Fenofibrate (Tricor) 48 mg PO DAILY [facility] Last Admin: 09/28/16 09:52 Dose: 48 mg Ceftriaxone Sodium (Rocephin 1 Gram Ivpb) 1 gm in 100 mls @ 100 mls/hr IVPB DAILY [facility] PRN Reason: Protocol Last Admin: 09/28/16 09:45 Dose: 100 mls/hr Insulin Human Regular (Humulin R Med) 0 units SC ACHS [facility] PRN Reason: Protocol Last Admin: 09/28/16 11:30 Dose: 3 units Methylprednisolone (Solu-Medrol) 20 mg IVP Q12 [facility] Last Admin: 09/28/16 09:51 Dose: 20 mg Montelukast Sodium (Singulair) 10 mg PO HS [facility] Last Admin: 09/27/16 21:31 Dose: 10 mg Nicotine (Nicoderm Cq) 1 patch TD DAILY [facility] Last Admin: 09/28/16 09:52 Dose: 1 patch Oxycodone/Acetaminophen (Percocet 5/325 Mg Tab) 1 tab PO Q6H PRN PRN Reason: Pain, moderate (4-7) Stop: 09/29/16 20:43 Last Admin: 09/28/16 09:48 Dose: 1 tab Sodium Polystyrene Sulfonate (Kayexalate Oral Susp) 15 gm PO BID [facility] Last Admin: 09/28/16 12:41 Dose: 15 gm - Labs Labs: 09/28/16 11:30 09/28/16 11:30 APTT 29.6 Seconds (23.7-30.8) 09/20/16 00:30 - Constitutional Appears: Chronically Ill - Head Exam Head Exam: NORMAL INSPECTION, NORMOCEPHALIC - Eye Exam Eye Exam: Normal appearance, PERRL - ENT Exam ENT Exam: Mucous Membranes Moist, Normal Exam - Respiratory Exam Respiratory Exam: Prolonged Expiratory Phase, Rhonchi - Cardiovascular Exam Cardiovascular Exam: REGULAR RHYTHM, +S1, +S2, Murmur - GI/Abdominal Exam GI & Abdominal Exam: Distended, Soft, Normal Bowel Sounds - Extremities Exam Extremities Exam: Normal Inspection Assessment and Plan - Assessment and Plan (Free Text) Assessment: Assessment: 1.) COPD exacerbation 2.) Active Breast CA - non compliant - with possible METS LN 3.) Active Tobacco Abuse 4.) IDDM 5.) Chronic Pain 6.) Anxiety - Generalized and Distress Regarding Malignancy 7.) CKD4 with DAHLIA 8.) GERD 9.) Hyperkalemia- stable, ?? Etiology, likely 2/2 to CKD4 1. 2 gm K diet 2. respiratory treatments 3. Avoid nephrotoxins 4. Taper steroids 5. 24hr urine for protein and cr cl- 32ml/min
--- NOTE | 2016-09-28 14:24 | CP.PCM.PN ---
Subjective - Date & Time of Evaluation Date of Evaluation: 09/28/16 Time of Evaluation: 13:00 - Subjective Subjective: 55 y/o female presents with a 2 day duration of sob with minor sputum production. Patient's daughter reports that she was struggling to breathe. EMS was called and patient was given Mg Sulfate, Salumeterol, and Albuterol, which did not alleviate patient's symptoms. Patient was ultimately placed on bipap, which pulled her O2 stats from low 90s to upper 90s. Patient was then taken off of bipap and put on 4L O2 NC. Patient admits to cough, but denies fever, chills, nausea, vomiting, diarrhea, and hemoptysis.Since admission she feels better, stile has some cough.and leg swelling 09/28/2016: better, stile SOB with exertion, and has leg swelling Objective - Vital Signs/Intake and Output Vital Signs (last 24 hours): Temp Pulse Resp BP Pulse Ox 97.8 F 101 H 18 143/65 97 09/28/16 08:36 09/28/16 08:36 09/28/16 09:52 09/28/16 08:36 09/28/16 09:52 Intake and Output: 09/28/16 09/28/16 06:59 18:59 Intake Total 1360 Output Total 1650 Balance -290 - Medications Medications: Current Medications Albuterol Sulfate (Albuterol 0.042% Inhal Elvie (1.25mg/3ml) Ud) 1.25 mg IH Q3H PRN PRN Reason: Shortness of Breath Last Admin: 09/25/16 14:50 Dose: 1.25 mg Albuterol/Ipratropium (Duoneb 3 Mg/0.5 Mg (3 Ml) Ud) 3 ml IH [id number] [facility] Last Admin: 09/28/16 07:53 Dose: Not Given Alprazolam (Xanax) 0.5 mg PO QID [facility] PRN Reason: Protocol Last Admin: 09/28/16 13:24 Dose: 0.5 mg Clonidine HCl (Catapres) 0.1 mg PO Q6H PRN PRN Reason: high blood pressure Last Admin: 09/24/16 18:32 Dose: 0.1 mg Cyclobenzaprine HCl (Flexeril) 5 mg PO HS [facility] Last Admin: 09/27/16 21:30 Dose: 5 mg Famotidine (Pepcid) 20 mg PO DAILY [facility] Last Admin: 09/28/16 09:48 Dose: 20 mg Fenofibrate (Tricor) 48 mg PO DAILY [facility] Last Admin: 09/28/16 09:52 Dose: 48 mg Ceftriaxone Sodium (Rocephin 1 Gram Ivpb) 1 gm in 100 mls @ 100 mls/hr IVPB DAILY [facility] PRN Reason: Protocol Last Admin: 09/28/16 09:45 Dose: 100 mls/hr Insulin Human Regular (Humulin R Med) 0 units SC ACHS [facility] PRN Reason: Protocol Last Admin: 09/28/16 11:30 Dose: 3 units Methylprednisolone (Solu-Medrol) 20 mg IVP Q12 [facility] Last Admin: 09/28/16 09:51 Dose: 20 mg Montelukast Sodium (Singulair) 10 mg PO HS [facility] Last Admin: 09/27/16 21:31 Dose: 10 mg Nicotine (Nicoderm Cq) 1 patch TD DAILY [facility] Last Admin: 09/28/16 09:52 Dose: 1 patch Oxycodone/Acetaminophen (Percocet 5/325 Mg Tab) 1 tab PO Q6H PRN PRN Reason: Pain, moderate (4-7) Stop: 09/29/16 20:43 Last Admin: 09/28/16 09:48 Dose: 1 tab Sodium Polystyrene Sulfonate (Kayexalate Oral Susp) 15 gm PO BID [facility] Last Admin: 09/28/16 12:41 Dose: 15 gm - Labs Labs: 09/28/16 11:30 09/28/16 11:30 APTT 29.6 Seconds (23.7-30.8) 09/20/16 00:30 - Constitutional Appears: No Acute Distress - Head Exam Head Exam: ATRAUMATIC, NORMAL INSPECTION, NORMOCEPHALIC - ENT Exam ENT Exam: Mucous Membranes Moist, Normal Exam - Neck Exam Neck Exam: Full ROM, Normal Inspection. absent: Lymphadenopathy - Respiratory Exam Respiratory Exam: Rhonchi - Cardiovascular Exam Cardiovascular Exam: REGULAR RHYTHM, +S1, +S2. absent: Murmur - GI/Abdominal Exam GI & Abdominal Exam: Soft, Normal Bowel Sounds. absent: Tenderness - Neurological Exam Neurological Exam: Alert, Awake, CN II-XII Intact, Normal Gait, Oriented x3 - Psychiatric Exam Psychiatric exam: Anxious Assessment and Plan (1) Breast cancer Assessment & Plan: oncology followup Status: Acute (2) Anxiety Assessment & Plan: anxiolytic Status: Acute (3) COPD (chronic obstructive pulmonary disease) Assessment & Plan: bronchodilators, consul about smoking Status: Acute (4) Diabetes Assessment & Plan: stable Status: Acute (5) Renal failure Assessment & Plan: slowly improving, avoid nephrotoxic drugs Status: Acute
--- NOTE | 2016-09-28 22:46 | CP.PCM.PN ---
Subjective - Date & Time of Evaluation Date of Evaluation: 09/27/16 Time of Evaluation: 13:00 - Subjective Subjective: c/o wheez, cough but less than befor Objective - Vital Signs/Intake and Output Vital Signs (last 24 hours): Temp Pulse Resp BP Pulse Ox 98.3 F 102 H 20 167/75 H 95 09/28/16 16:00 09/28/16 16:00 09/28/16 16:00 09/28/16 16:00 09/28/16 16:00 Intake and Output: 09/28/16 09/29/16 18:59 06:59 Intake Total 420 Balance 420 - Medications Medications: Current Medications Albuterol Sulfate (Albuterol 0.042% Inhal Elvie (1.25mg/3ml) Ud) 1.25 mg IH Q3H PRN PRN Reason: Shortness of Breath Last Admin: 09/25/16 14:50 Dose: 1.25 mg Albuterol/Ipratropium (Duoneb 3 Mg/0.5 Mg (3 Ml) Ud) 3 ml IH [id number] [facility] Last Admin: 09/28/16 20:13 Dose: 3 ml Alprazolam (Xanax) 0.5 mg PO QID [facility] PRN Reason: Protocol Last Admin: 09/28/16 21:26 Dose: 0.5 mg Atenolol (Tenormin) 25 mg PO DAILY [facility] Clonidine HCl (Catapres) 0.1 mg PO Q6H PRN PRN Reason: high blood pressure Last Admin: 09/24/16 18:32 Dose: 0.1 mg Cyclobenzaprine HCl (Flexeril) 5 mg PO HS [facility] Last Admin: 09/28/16 21:26 Dose: 5 mg Enoxaparin Sodium (Lovenox) 30 mg SC DAILY [facility] Famotidine (Pepcid) 20 mg PO DAILY [facility] Last Admin: 09/28/16 09:48 Dose: 20 mg Fenofibrate (Tricor) 48 mg PO DAILY [facility] Last Admin: 09/28/16 09:52 Dose: 48 mg Ceftriaxone Sodium (Rocephin 1 Gram Ivpb) 1 gm in 100 mls @ 100 mls/hr IVPB DAILY [facility] PRN Reason: Protocol Last Admin: 09/28/16 09:45 Dose: 100 mls/hr Insulin Human Regular (Humulin R Med) 0 units SC ACHS [facility] PRN Reason: Protocol Last Admin: 09/28/16 21:28 Dose: Not Given Methylprednisolone (Solu-Medrol) 20 mg IVP Q12 [facility] Last Admin: 09/28/16 21:27 Dose: 20 mg Montelukast Sodium (Singulair) 10 mg PO HS [facility] Last Admin: 09/28/16 21:27 Dose: 10 mg Nicotine (Nicoderm Cq) 1 patch TD DAILY [facility] Last Admin: 09/28/16 09:52 Dose: 1 patch Oxycodone/Acetaminophen (Percocet 5/325 Mg Tab) 1 tab PO Q6H PRN PRN Reason: Pain, moderate (4-7) Stop: 09/29/16 20:43 Last Admin: 09/28/16 15:54 Dose: 1 tab Sodium Polystyrene Sulfonate (Kayexalate Oral Susp) 15 gm PO BID [facility] Last Admin: 09/28/16 17:17 Dose: 15 gm - Labs Labs: 09/28/16 11:30 09/28/16 11:30 APTT 29.6 Seconds (23.7-30.8) 09/20/16 00:30 - Constitutional Appears: Well - Head Exam Head Exam: ATRAUMATIC, NORMAL INSPECTION, NORMOCEPHALIC - Eye Exam Eye Exam: EOMI, Normal appearance, PERRL - ENT Exam ENT Exam: Mucous Membranes Moist, Normal Exam - Exam Speculum exam: NORMAL SPECULUM EXAM - Extremities Exam Extremities Exam: Full ROM, Normal Capillary Refill, Normal Inspection. absent : Joint Swelling, Pedal Edema - Back Exam Back Exam: NORMAL INSPECTION - Neurological Exam Neurological Exam: Alert, Awake, CN II-XII Intact, Normal Gait, Oriented x3 - Skin Skin Exam: Dry, Intact, Normal Color, Warm Assessment and Plan (1) COPD (chronic obstructive pulmonary disease) Status: Acute (2) Dehydration Status: Acute (3) Diabetes Status: Acute (4) Osteoarthritis Status: Acute (5) Tobacco abuse Status: Acute (6) COPD bronchitis Status: Acute (7) Pneumonia Status: Acute - Assessment and Plan (Free Text) Plan: continue steroids iv and inhalatios , insulin, continue current treatment
[2016-09-29] MEDS: Albuterol-Ipratrop 3 mg / 0.5 (3 ml) UD IH SCH ×4 (02:01→19:49)
[2016-09-29 05:49] LABS: BASO # 0.01 K/mm3 (0.0-2.0); BASO % 0.1 % (0.0-3.0); GRAN # 11.56 (1.4-6.5); HEMOGLOBIN 11.7 gm/dL (12.0-16.0); LYMPH # 0.9 (1.2-3.4); LYMPH % 7.2 % (22.0-35.0); MEAN CORPUSCULAR HEMOGLOBIN 29.4 pg (25.0-35.0); MEAN CORPUSCULAR HGB CONC 30.3 g/dl (31.0-37.0); MEAN PLATELET VOLUME 10.3 fl (7.0-11.0); MONO # 0.6 (0.1-0.6); MONO % 4.7 % (1.0-6.0); PLATELET COUNT 286 10^3/uL (120.0-450.0); RBC 3.98 10^6/uL (3.5-6.1); RED CELL DISTRIBUTION WIDTH 15.6 % (11.5-14.5); WHITE BLOOD COUNT 13.1 10^3/ul (4.5-11.0)
[2016-09-29 06:04] LABS: ALB/GLOB RATIO 1.5 (1.1-1.8); ALBUMIN 3.6 g/dL (3.0-4.8); CALCIUM 7.9 mg/dL (8.4-10.5)
[2016-09-29] MEDS: Insulin Reg-MEDIUM-Coverage SC SCH ×4 (08:12→21:47)
[2016-09-29] MEDS: Oxycodone/Acetaminophen 5/325 mg Tab PO PRN ×3 (08:14→20:40)
[2016-09-29] MEDS: Sod Polystyrene Sulf 15 gm/60 ml Oral Susp PO SCH (09:26)
[2016-09-29] MEDS: Enoxaparin 30 mg Syringe SC SCH (09:26)
[2016-09-29] MEDS: MethylPREDNISolone 40 mg Vial IVP SCH ×2 (09:26→21:01)
[2016-09-29] MEDS: cefTRIAXone 1 gm 1 GM/100 ML BAG IVPB SCH (09:27)
[2016-09-29] MEDS ORDERED: Enoxaparin 40 mg Syringe SC SCH (10:00)
[2016-09-29] MEDS: Insulin Detemir 100 units/ml Vial (Levemir) SC SCH ×2 (11:41→17:22)
[2016-09-29 16:52] VITALS: TEMP 98.3
[2016-09-30] MEDS: Albuterol-Ipratrop 3 mg / 0.5 (3 ml) UD IH SCH ×3 (01:46→13:57)
[2016-09-30] MEDS ORDERED: Oxycodone/Acetaminophen 5/325 mg Tab PO STA (04:37)
--- NOTE | 2016-09-30 04:40 | CP.PCM.PN ---
Subjective - Date & Time of Evaluation Date of Evaluation: 09/30/16 Time of Evaluation: 04:37 - Subjective Subjective: Nurse calls and tells that patient is having abdominal pain. Patient is seen at bedside. states that she has mid back pain, not abdominal pain. Has this chronic back pain for long time. Suffers from arthritis. Has no other complaints. Denies chest pain, sob, nausea. ROS:Negative except as mentioned above. Medical record was reviewed. This 55 year old woman was admitted with sob,sputum/PNA. Has PMH of IDDM,arthritis, COPD,breast cancer, herniated disc, hearing impairment, renal calculus , PNA,asthma,anxiety,GERD. Objective - Vital Signs/Intake and Output Vital Signs (last 24 hours): Temp Pulse Resp BP Pulse Ox 98.3 F 95 H 20 157/75 H 90 L 09/29/16 16:00 09/29/16 16:00 09/29/16 16:00 09/29/16 16:00 09/29/16 16:00 Intake and Output: 09/29/16 09/30/16 18:59 06:59 Intake Total 1080 540 Balance 1080 540 - Medications Medications: Current Medications Albuterol Sulfate (Albuterol 0.042% Inhal Elvie (1.25mg/3ml) Ud) 1.25 mg IH Q3H PRN PRN Reason: Shortness of Breath Last Admin: 09/25/16 14:50 Dose: 1.25 mg Albuterol/Ipratropium (Duoneb 3 Mg/0.5 Mg (3 Ml) Ud) 3 ml IH [id number] [facility] Last Admin: 09/30/16 01:46 Dose: 3 ml Alprazolam (Xanax) 0.5 mg PO QID [facility] PRN Reason: Protocol Last Admin: 09/29/16 21:02 Dose: 0.5 mg Atenolol (Tenormin) 25 mg PO DAILY [facility] Last Admin: 09/29/16 09:25 Dose: 25 mg Clonidine HCl (Catapres) 0.1 mg PO Q6H PRN PRN Reason: high blood pressure Last Admin: 09/24/16 18:32 Dose: 0.1 mg Cyclobenzaprine HCl (Flexeril) 5 mg PO HS [facility] Last Admin: 09/29/16 21:00 Dose: 5 mg Enoxaparin Sodium (Lovenox) 30 mg SC DAILY [facility] Last Admin: 09/29/16 09:26 Dose: 30 mg Famotidine (Pepcid) 20 mg PO DAILY [facility] Last Admin: 09/29/16 09:24 Dose: 20 mg Fenofibrate (Tricor) 48 mg PO DAILY [facility] Last Admin: 09/29/16 09:24 Dose: 48 mg Insulin Detemir (Levemir) 15 unit SC AC [facility] Last Admin: 09/29/16 17:22 Dose: 15 unit Insulin Human Regular (Humulin R Med) 0 units SC ACHS [facility] PRN Reason: Protocol Last Admin: 09/29/16 21:47 Dose: Not Given Methylprednisolone (Solu-Medrol) 20 mg IVP Q12 [facility] Last Admin: 09/29/16 21:01 Dose: 20 mg Montelukast Sodium (Singulair) 10 mg PO HS [facility] Last Admin: 09/29/16 21:01 Dose: 10 mg Nicotine (Nicoderm Cq) 1 patch TD DAILY [facility] Last Admin: 09/29/16 09:25 Dose: 1 patch Oxycodone/Acetaminophen (Percocet 5/325 Mg Tab) 1 tab PO STAT STA Stop: 09/30/16 04:38 Sodium Polystyrene Sulfonate (Kayexalate Oral Susp) 30 gm PO DAILY [facility] Last Admin: 09/29/16 09:26 Dose: 30 gm - Labs Labs: 09/29/16 05:30 09/29/16 05:30 APTT 29.6 Seconds (23.7-30.8) 09/20/16 00:30 Lab Studies 09/29/16 09/29/16 09/29/16 Range/Units 21:34 16:13 05:30 WBC 13.1 H (4.5-11.0) 10^3/ul RBC 3.98 (3.5-6.1) 10^6/uL Hgb 11.7 L (12.0-16.0) gm/dL Hct 38.6 (36.0-48.0) % MCV 97.0 (80.0-105.0) fL MCH 29.4 (25.0-35.0) pg MCHC 30.3 L (31.0-37.0) g/dl RDW 15.6 H (11.5-14.5) % Plt Count 286 (120.0-450.0) 10^3/uL MPV 10.3 (7.0-11.0) fl Gran % 88.0 H (50.0-68.0) % Lymph % (Auto) 7.2 L (22.0-35.0) % Hopkins % (Auto) 4.7 (1.0-6.0) % Eos % (Auto) 0.0 L (1.5-5.0) % Baso % (Auto) 0.1 (0.0-3.0) % Gran # 11.56 H (1.4-6.5) Lymph # 0.9 L (1.2-3.4) Hopkins # 0.6 (0.1-0.6) Eos # 0.0 (0.0-0.7) Baso # 0.01 (0.0-2.0) K/mm3 Sodium (132-148) mmol/L Potassium (3.6-5.0) mmol/L Chloride (95-110) mmol/L Carbon Dioxide (21-33) mmol/L Anion Gap (10-20) BUN (7-21) mg/dL Creatinine (0.5-1.4) mg/dL Est GFR ( Amer) Est GFR (Non-Af Amer) POC Glucose (mg/dL) 133 H 215 H (65-110) mg/dL Random Glucose (70-110) mg/dL Calcium (8.4-10.5) mg/dL Total Bilirubin (0.2-1.3) mg/dL AST (15-39) U/L ALT (7-56) U/L Alkaline Phosphatase (38-133) U/L Total Protein (5.8-8.3) g/dL Albumin (3.0-4.8) g/dL Globulin gm/dL Albumin/Globulin Ratio (1.1-1.8) U Random Total Protein (50-240) mg/L Ur Total Protein 24 Hr (<150) mg/24 h 09/29/16 09/28/16 Range/Units 05:30 11:00 WBC (4.5-11.0) 10^3/ul RBC (3.5-6.1) 10^6/uL Hgb (12.0-16.0) gm/dL Hct (36.0-48.0) % MCV (80.0-105.0) fL MCH (25.0-35.0) pg MCHC (31.0-37.0) g/dl RDW (11.5-14.5) % Plt Count (120.0-450.0) 10^3/uL MPV (7.0-11.0) fl Gran % (50.0-68.0) % Lymph % (Auto) (22.0-35.0) % Hopkins % (Auto) (1.0-6.0) % Eos % (Auto) (1.5-5.0) % Baso % (Auto) (0.0-3.0) % Gran # (1.4-6.5) Lymph # (1.2-3.4) Hopkins # (0.1-0.6) Eos # (0.0-0.7) Baso # (0.0-2.0) K/mm3 Sodium 140 (132-148) mmol/L Potassium 5.5 H (3.6-5.0) mmol/L Chloride 104 (95-110) mmol/L Carbon Dioxide 27 (21-33) mmol/L Anion Gap 15 (10-20) BUN 77 H (7-21) mg/dL Creatinine 1.9 H (0.5-1.4) mg/dL Est GFR ( Amer) 33 Est GFR (Non-Af Amer) 27 POC Glucose (mg/dL) (65-110) mg/dL Random Glucose 297 H (70-110) mg/dL Calcium 7.9 L (8.4-10.5) mg/dL Total Bilirubin 0.3 (0.2-1.3) mg/dL AST 12 L (15-39) U/L ALT 26 (7-56) U/L Alkaline Phosphatase 77 (38-133) U/L Total Protein 5.9 (5.8-8.3) g/dL Albumin 3.6 (3.0-4.8) g/dL Globulin 2.4 gm/dL Albumin/Globulin Ratio 1.5 (1.1-1.8) U Random Total Protein 341 H (50-240) mg/L Ur Total Protein 24 Hr 989 H (<150) mg/24 h - Constitutional Appears: Well, No Acute Distress - Head Exam Head Exam: ATRAUMATIC, NORMAL INSPECTION, NORMOCEPHALIC - Eye Exam Eye Exam: Normal appearance - ENT Exam ENT Exam: Normal External Ear Exam - Neck Exam Neck Exam: Normal Inspection - Respiratory Exam Respiratory Exam: NORMAL BREATHING PATTERN - Cardiovascular Exam Cardiovascular Exam: absent: JVD - GI/Abdominal Exam GI & Abdominal Exam: absent: Distended - Rectal Exam Rectal Exam: Deferred - Exam Additional comments: Deferred. - Extremities Exam Extremities Exam: Normal Inspection - Back Exam Back Exam: NORMAL INSPECTION - Neurological Exam Neurological Exam: Alert, Oriented x3 - Psychiatric Exam Psychiatric exam: Normal Affect, Normal Mood - Skin Skin Exam: Normal Color Assessment and Plan - Assessment and Plan (Free Text) Assessment: Mid back pain. Arthritis. IDDM. Leukocytosis. Hyperkalemia. Renal insufficiency. GERD. COPD. Asthma. Anxiety. Chronic pain. Plan: Percocet 5/325 I po stat. Contnue management as per PMD. Possible discharge soon.
[2016-09-30 05:35] VITALS: PULSE 90; RESP 22; O2SAT 97
[2016-09-30] MEDS: Insulin Reg-MEDIUM-Coverage SC SCH ×2 (08:06→12:14)
[2016-09-30] MEDS: Insulin Detemir 100 units/ml Vial (Levemir) SC SCH ×2 (08:06→12:14)
[2016-09-30] MEDS: MethylPREDNISolone 40 mg Vial IVP SCH (09:25)
[2016-09-30] MEDS: Enoxaparin 30 mg Syringe SC SCH (09:25)
[2016-09-30] MEDS: Sod Polystyrene Sulf 15 gm/60 ml Oral Susp PO SCH (09:27)
[2016-09-30 09:32] VITALS: BP 129/49
--- NOTE | 2016-09-30 11:19 | CP.PCM.PN ---
Subjective - Date & Time of Evaluation Date of Evaluation: 09/29/16 Time of Evaluation: 11:00 - Subjective Subjective: feel ok . no respiratory distree, eatin, bm, ok, calm, no pain, high pottasium received k exalate Objective - Vital Signs/Intake and Output Vital Signs (last 24 hours): Temp Pulse Resp BP Pulse Ox 98.3 F 90 22 129/49 L 97 09/30/16 09:32 09/30/16 09:32 09/30/16 09:32 09/30/16 09:32 09/30/16 09:32 Intake and Output: 09/30/16 09/30/16 06:59 18:59 Intake Total 540 0 Balance 540 0 - Medications Medications: Current Medications Albuterol Sulfate (Albuterol 0.042% Inhal Elvie (1.25mg/3ml) Ud) 1.25 mg IH Q3H PRN PRN Reason: Shortness of Breath Last Admin: 09/25/16 14:50 Dose: 1.25 mg Albuterol/Ipratropium (Duoneb 3 Mg/0.5 Mg (3 Ml) Ud) 3 ml IH [id number] [facility] Last Admin: 09/30/16 07:51 Dose: 3 ml Alprazolam (Xanax) 0.5 mg PO QID [facility] PRN Reason: Protocol Last Admin: 09/30/16 09:26 Dose: 0.5 mg Atenolol (Tenormin) 25 mg PO DAILY [facility] Last Admin: 09/30/16 09:26 Dose: 25 mg Clonidine HCl (Catapres) 0.1 mg PO Q6H PRN PRN Reason: high blood pressure Last Admin: 09/24/16 18:32 Dose: 0.1 mg Cyclobenzaprine HCl (Flexeril) 5 mg PO HS [facility] Last Admin: 09/29/16 21:00 Dose: 5 mg Enoxaparin Sodium (Lovenox) 30 mg SC DAILY [facility] Last Admin: 09/30/16 09:25 Dose: 30 mg Famotidine (Pepcid) 20 mg PO DAILY [facility] Last Admin: 09/30/16 09:26 Dose: 20 mg Fenofibrate (Tricor) 48 mg PO DAILY [facility] Last Admin: 09/30/16 09:26 Dose: 48 mg Insulin Detemir (Levemir) 15 unit SC [facility] Last Admin: 09/30/16 08:06 Dose: 15 unit Insulin Human Regular (Humulin R Med) 0 units SC ACHS [facility] PRN Reason: Protocol Last Admin: 09/30/16 08:06 Dose: 5 units Methylprednisolone (Solu-Medrol) 20 mg IVP Q12 [facility] Last Admin: 09/30/16 09:25 Dose: 20 mg Montelukast Sodium (Singulair) 10 mg PO HS [facility] Last Admin: 09/29/16 21:01 Dose: 10 mg Nicotine (Nicoderm Cq) 1 patch TD DAILY [facility] Last Admin: 09/30/16 09:26 Dose: 1 patch Sodium Polystyrene Sulfonate (Kayexalate Oral Susp) 30 gm PO DAILY [facility] Last Admin: 09/30/16 09:27 Dose: 30 gm - Labs Labs: 09/29/16 05:30 09/29/16 05:30 APTT 29.6 Seconds (23.7-30.8) 09/20/16 00:30 - Constitutional Appears: Well, No Acute Distress - Head Exam Head Exam: ATRAUMATIC, NORMAL INSPECTION, NORMOCEPHALIC - Eye Exam Eye Exam: EOMI, Normal appearance, PERRL Pupil Exam: NORMAL ACCOMODATION - Neck Exam Neck Exam: Full ROM, Normal Inspection - Cardiovascular Exam Cardiovascular Exam: Diastolic murmur, REGULAR RHYTHM - GI/Abdominal Exam GI & Abdominal Exam: Normal Bowel Sounds - Rectal Exam Rectal Exam: Deferred - Neurological Exam Neurological Exam: Alert, Normal Gait, Oriented x3 - Psychiatric Exam Psychiatric exam: Normal Affect, Normal Mood - Skin Skin Exam: Intact, Normal Color, Warm Assessment and Plan (1) COPD (chronic obstructive pulmonary disease) Status: Acute (2) Dehydration Status: Acute (3) Diabetes Status: Acute (4) Osteoarthritis Assessment & Plan: hyperkalemia secondary to 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 compliance contiuecurrent treatment, lantus and humalog befor meals ., disussed pt , renal failure and necessity to decreasr insulin, check sugar daily. Status: Acute (5) Tobacco abuse Status: Acute (6) COPD bronchitis Status: Acute (7) Pneumonia Status: Acute
--- NOTE | 2016-10-01 06:17 | PN ---
DATE: 09/30/2016 REFERRING PHYSICIAN: *------*. SUBJECTIVELY: She is sitting at the side of the bed, daughter is at the bedside, feels better *------*. No diarrhea, decreased leg swelling. OBJECTIVELY: VITAL SIGNS: Heart rate is 90, respiratory rate is 20, blood pressure 129/49, pulse ox 97% on nasal cannula. HEENT: Moist mucous membrane, no oral thrush noted. NECK: Supple, no JVD. LUNGS: Fair air flow with rhonchi. HEART: S1 and S2. ABDOMEN: Soft, nontender, no organomegaly. EXTREMITIES: No cyanosis or edema. NEUROLOGICAL: Awake and alert. Follows simple commands. Medications reviewed. No new changes reported since yesterday. Laboratory data reviewed. No new lab is available since yesterday. IMPRESSION AND PLAN: 1. Chronic obstructive lung disease. 2. Pneumonia. 3. History of breast cancer. 4. Diabetes. 5. Renal failure. Case discussed with *------*. I spoke to the patient and family at bedside. All the questions answered. The patient is urged to stop smoking, may discharge home, taper dose of prednisone and inhaled bronchodilator, fall precaution. Outpatient close followup, especially nephrology followup. I will just follow with you. Lisa Rucker MD
--- NOTE | 2016-10-01 10:48 | PN ---
DATE: 09/29/2016 SUBJECTIVE: The patient is seen sitting in bed. She is awake, she is alert. She reports that she is a little puffy today. She also complains of being bloated today. She denies any shortness of breath. PHYSICAL EXAMINATION GENERAL: Middle-aged lady sitting in bed. VITAL SIGNS: Blood pressure 121/58, heart rate 98, respiratory rate 20, temperature 98. NECK: Supple, no JVD. CARDIOPULMONARY: S1 and S2, regular, rate, and rhythm, no murmur, no rub. LUNGS: Bilateral equal air entry, bilateral rhonchi. ABDOMEN: Obese, distended, soft, nontender, bowel sound presents. EXTREMITIES: Chronic stasis changes, lower extremity erythema, trace edema. INTAKE AND OUTPUT: 2320/2100. LABORATORY DATA: WBC 13, hemoglobin 11.7, hematocrit 38, and platelets 286. Sodium 140, potassium 5.5, chloride 104, CO2 27, BUN 77, creatinine 1.9, glucose 297, calcium 7.9, AST 12, ALT 26. CURRENT MEDICATIONS: Albuterol, Catapres, DuoNeb, Flexeril, insulin, Kayexalate 30 g today, Levemir, Lovenox, Pepcid, Percocet, Singulair, Solu-Medrol, Tenormin, TriCor, Xanax. ASSESSMENT: 1. Non-insulin dependent diabetes mellitus. 2. Chronic kidney disease stage III/IV. 3. Hyperkalemia likely secondary to chronic kidney disease, could be hypoaldosteronism. 4. History of breast cancer. 5. Chronic obstructive pulmonary disease exacerbation, active smoking. 6. Leukocytosis likely secondary to steroids. PLAN: 1. Continue Lasix. 2. Check aldosterone level. 3. Continue respiratory treatments. 4. Educate in 2 g potassium diet. 5. May need intermittent Kayexalate as outpatient. Lula Hurd MD
--- NOTE | 2016-10-01 11:18 | PN ---
DATE: 09/29/2016 SUBJECTIVE: She is sitting at the side of the bed, having dinner * *00:16 was unremarkable. Feels little better. Gets short of breath on minimal exertion. Cough has been improved. No nausea, no vomiting, no diarrhea. Decreased leg swelling. PHYSICAL EXAMINATION: GENERAL: No acute distress. VITAL SIGNS: Temperature is 98, heart rate is 95, respiratory rate is 20, blood pressure 157/75, pulse ox 98% on 3 liters nasal cannula. HEENT: Moist mucous membranes * *00:29. NECK: Supple. No JVD. LUNGS: ____00:33. HEART: S1and S2. ABDOMEN: Soft, nontender. No organomegaly. EXTREMITIES: Trace edema. NEUROLOGIC: Awake and alert. Follows simple command. LABORATORY DATA: Shows hemoglobin 11.7, hematocrit 38.6, WBC 13.1, platelet is 286. Sodium 140, potassium 5.5, chloride 104, bicarbonate 26, BUN 77, creatinine 1.9, glucose is 297, calcium is 7.9, AST is 12, ALT is 26, alk phos is 77, albumin is 3.6. Microbiology, blood culture has been negative. MEDICATIONS: She is on albuterol and Atrovent nebulizer q.3 hours p.r.n., Catapres 0.1 mg q.6 hours p.r.n. for high blood pressure, DuoNeb q.6 hours, Flexeril 5 mg h.s., insulin coverage, Kayexalate 30 g p.o., Levemir 50 units subQ a.c., Lovenox 30 mg subQ daily, Nicoderm patch daily, Pepcid 20 mg daily, Percocet 5/325 mg 1 tab q.6 hours p.r.n., Singulair 10 mg daily, Solu-Medrol 20 mg q.12 hours, Tenormin 25 mg daily, TriCor 45 mg daily, Xanax 0.5 mg q.i.d. IMPRESSION AND PLAN: Resolving pneumonia, chronic obstructive lung disease, history of breast cancer, diabetes, renal failure, * *02:15. Continue IV and inhaled bronchodilators. Continue antibiotics. Aspiration precaution. Nephrology followup. Avoid nephrotoxic drugs. We will need followup x-ray to assure the stability of pulmonary infiltrates. I will follow with you. Lisa Rucker MD cc:
--- NOTE | 2016-10-01 11:43 | PN ---
DATE: 09/30/2016 SUBJECTIVE: The patient is seen sitting in bed. Daughter is at bedside. She denies any complaints at this time. She denies any shortness of breath. She denies any pain. PHYSICAL EXAMINATION: GENERAL: Middle aged lady sitting in bed. VITAL SIGNS: Blood pressure 129/49, heart rate 90, respiratory rate 20, temperature 98.3. HEENT: Normocephalic, atraumatic. Positive pallor. NECK: Supple. No JVD. LUNGS: Bilateral equal air entry. No rales. CARDIAC: S1, S2. Regular rate and rhythm. No murmur. No rubs. ABDOMEN: Obese, distended, soft, nontender. Bowel sounds present. EXTREMITIES: No lower extremity edema. INTAKE AND OUTPUT: 1620/not charted. LABORATORY DATA: WBC 13, hemoglobin 11.7, hematocrit 38.6, platelets 286. Sodium 140, potassium 5.5, chloride 104, CO2 27, BUN 77, creatinine 1.9, glucose 297, calcium 7.9, albumin 3.6, corrected calcium is 8.1. AST 12, ALT 26. CURRENT MEDICATIONS: Albuterol, Catapres, DuoNeb, Flexeril, Humulin, Kayexalate 30 g given yesterday and today, Levemir, Lovenox, nicotine patch, Pepcid, Singulair, Solu-Medrol, Tenormin, Tricor, and Xanax. ASSESSMENT AND PLAN: 1. Chronic kidney disease, stage III. 2. Acute kidney injury, prerenal azotemia. 3. Hyperkalemia, type IV renal tubular acidosis. 4. Hypocalcemia. 5. Anemia of chronic kidney disease. 6. History of breast cancer. 7. Coronary artery disease. PLAN: 1. Check vitamin D, check intact PTH, phosphorus. 2. Continue intermittent Kayexalate. 3. A 2-gram potassium diet. 4. Continue fingerstick and insulin coverage. 5. Continue antihypertensive. 6. Continue respiratory treatment. Lula Hurd MD
== END 2016-09-30 17:25 | disposition home or self-care (01) | DRG 541 ==
LOC: ED 14:30 → ERH 18:00 → 2RNO 21:29 → 3RNO 09-21 18:42
PROVIDERS: ADMIT Internal Medicine; ATTEND Internal Medicine
DX: J44.1 Chronic obstructive pulmonary disease with (acute) exacerbation (principal); N17.0 Acute kidney failure with tubular necrosis; J18.9 Pneumonia, unspecified organism; E11.21 Type 2 diabetes mellitus with diabetic nephropathy; N18.4 Chronic kidney disease, stage 4 (severe); E86.0 Dehydration; E11.22 Type 2 diabetes mellitus with diabetic chronic kidney disease; E87.5 Hyperkalemia; J44.0 Chronic obstructive pulmonary disease with (acute) lower respiratory infection; E11.65 Type 2 diabetes mellitus with hyperglycemia; C50.812 Malignant neoplasm of overlapping sites of left female breast; D63.1 Anemia in chronic kidney disease; I25.10 Atherosclerotic heart disease of native coronary artery without angina pectoris; F41.1 Generalized anxiety disorder; H91.90 Unspecified hearing loss, unspecified ear; J45.909 Unspecified asthma, uncomplicated; M51.9 Unspecified thoracic, thoracolumbar and lumbosacral intervertebral disc disorder; K21.9 Gastro-esophageal reflux disease without esophagitis; M19.90 Unspecified osteoarthritis, unspecified site; E83.51 Hypocalcemia; D72.829 Elevated white blood cell count, unspecified; G89.29 Other chronic pain; T38.0X5A Adverse effect of glucocorticoids and synthetic analogues, initial encounter; N20.0 Calculus of kidney; Z72.0 Tobacco use; Z91.19 Patient's noncompliance with other medical treatment and regimen; Z79.4 Long term (current) use of insulin; Z91.14 Patient's other noncompliance with medication regimen

== ENCOUNTER 2016-12-27 15:31 | Inpatient (IN) | payer MEDICAID, OTHER ==
[2016-12-27 15:31] VITALS: BMI 25.7
[2016-12-27] MEDS ORDERED: Albuterol-Ipratrop 3 mg / 0.5 (3 ml) UD IH STA (16:13)
[2016-12-27] MEDS ORDERED: Oxycodone/Acetaminophen 5/325 mg Tab PO STA (16:14)
--- NOTE | 2016-12-27 16:31 | ED PDOC ---
Arrival/HPI - General Chief Complaint: Dizziness/Lightheaded Time Seen by Provider: 12/27/16 15:34 Historian: Patient - History of Present Illness Narrative History of Present Illness (Text): 12/27/16 16:30 A 56 year old female, whose past medical history includes COPD, asthma, on oxygen (3L), breast cancer (last chemotherapy treatment a year ago) and diabetes , presents to the emergency department complaining of generalized weakness and dizziness for the past week. Reports similar symptoms in the past, however not lasting for this long. Notes dizziness and lightheadedness even when lying down. Patient states she was given antibiotics by PMD for pneumonia about 2 weeks ago. Notes some shortness of breath and chronic cough but denies any chest pain, fever, vomiting, diarrhea or any other complaints at this time. Smokes a pack of cigarettes per day. PMD: Dr. Sosa Oncologist: Dr. Zelaya Medications: Percocet (daily) Time/Duration: 1 week Symptom Onset: Sudden Symptom Course: Unchanged Activities at Onset: Rest Context: Home Past Medical History - Provider Review Nursing Documentation Reviewed: Yes - Infectious Disease Hx of Infectious Diseases: None - Tetanus Immunization Tetanus Immunization: Unknown - Reproductive Menopause: Yes - Cardiac Hx Cardiac Disorders: Yes Hx Hypertension: Yes - Pulmonary Hx Chronic Obstructive Pulmonary Disease (COPD): Yes - Neurological Hx Neurological Disorder: No - HEENT Hx HEENT Disorder: Yes ([place] left ear) Hx Cataracts: Yes - Renal Hx Renal Disorder: No (HYDRONEPHROSIS) Hx Kidney Stones: Yes - Endocrine/Metabolic Hx Diabetes Mellitus Type 2: Yes - Hematological/Oncological Hx Blood Disorders: Yes Hx Cancer: Yes (breast cancer left dx 06/2015) Hx Chemotherapy: Yes - Integumentary Hx Dermatological Disorder: Yes Other/Comment: multiple age spots to back, small white areas of skin to left arm , ble skin discolorations, reddened buttock and hard red areas of skin to lower r and left buttock,multiple scabs and dry discolored skin areas to both arms, poor hygeine dirty toes and elbows - Musculoskeletal/Rheumatological Hx Arthritis: Yes Hx Falls: Yes (past falls) - Gastrointestinal Hx Gastrointestinal Disorders: Yes (esophagitis/ pelvic mass) Hx Gastroesophageal Reflux: Yes - Genitourinary/Gynecological Hx Genitourinary Disorders: Yes (PELVIC MASS) Hx Urinary Tract Infection: Yes - Psychiatric Hx Psychophysiologic Disorder: Yes Hx Anxiety: Yes Hx Substance Use: No - Past Surgical History Past Surgical History: Non-Contributing - Surgical History Other/Comment: left breast bx 07/01/15, umbilical hernia repair, c section x 2 extopic , excision of abd tumor, rcw pac, umbilical hernia repair - Anesthesia Hx Anesthesia Reactions: No Hx Malignant Hyperthermia: No - Suicidal Assessment Feels Threatened In Home Enviroment: No Family/Social History - Physician Review Nursing Documentation Reviewed: Yes Family/Social History: Other (non contributory) Smoking Status: Heavy Smoker > 10 Cigarettes Daily Hx Alcohol Use: No Hx Substance Use: No Hx Substance Use Treatment: No Allergies/Home Meds Allergies/Adverse Reactions: Allergies levofloxacin [From Levaquin] Allergy (Verified 12/27/16 15:41) SHORTNESS OF BREATH;PARANOID nystatin Allergy (Verified 12/27/16 15:41) SWELLING Home Medications: Home Meds Medication Instructions Recorded Confirmed Albuterol/Ipratropium [Duoneb 3 3 ml IH Q2H PRN 12/29/16 12/29/16 mg/0.5 mg (3 ml) UD] Arformoterol [Brovana] 15 mcg IH Q12H 12/29/16 12/29/16 Budesonide [Pulmicort Respules] 0.5 mg IH Q12H 12/29/16 12/29/16 Review of Systems - Physician Review All systems were reviewed & negative as marked: Yes - Review of Systems Constitutional: Other (generalized weakness). absent: Fevers Respiratory: SOB, Cough (chronic) Cardiovascular: absent: Chest Pain Gastrointestinal: absent: Diarrhea, Vomiting Neurological: Dizziness (lightheadedness) Physical Exam Vital Signs Reviewed: Yes Vital Signs Temp Pulse Resp BP Pulse Ox 12/27/16 20:23 91 H 16 119/55 L 98 12/27/16 17:09 98 H 18 142/67 98 12/27/16 15:37 98.2 F 104 H 18 144/64 98 Appearance: Positive for: Well-Appearing, Non-Toxic, Comfortable Pain Distress: None Mental Status: Positive for: Alert and Oriented X 3 Finger Stick Blood Glucose: 222 - Systems Exam Head: Present: Atraumatic, Normocephalic Pupils: Present: PERRL Extroacular Muscles: Present: EOMI Conjunctiva: Present: Normal Mouth: Present: Moist Mucous Membranes Neck: Present: Normal Range of Motion Respiratory/Chest: Present: Wheezes (diffuse), Other (port on right chest wall) . No: Respiratory Distress, Accessory Muscle Use Cardiovascular: Present: Regular Rate and Rhythm, Normal S1, S2. No: Murmurs Abdomen: Present: Normal Bowel Sounds. No: Tenderness, Distention, Peritoneal Signs Back: Present: Normal Inspection Upper Extremity: Present: Normal Inspection. No: Cyanosis, Edema Lower Extremity: Present: Normal Inspection. No: Edema Neurological: Present: GCS=15, CN II-XII Intact, Speech Normal Skin: Present: Warm, Dry, Normal Color. No: Rashes Psychiatric: Present: Alert, Oriented x 3, Normal Insight, Normal Concentration Medical Decision Making ED Course and Treatment: 12/27/16 16:51 chest xray: Creator : Cornelius Flores MD FINDINGS: LUNGS: Resolution right middle lobe infiltrate PLEURA: No significant pleural effusion identified. No pneumothorax apparent. CARDIOVASCULAR: No radiographic findings to suggest acute or significant cardiovascular disease. Venous access catheter in stable, satisfactory position. OSSEOUS STRUCTURES: No significant abnormalities. VISUALIZED UPPER ABDOMEN: Normal. IMPRESSION: No active disease. Right middle lobe infiltrate apparent previously has resolved. UTI w systemic s/s. disc w Dr Sosa who will admit - Lab Interpretations Microbiology Results: Microbiology Results 12/27/16 16:20 Blood-Venous Blood Culture - Preliminary NO GROWTH AFTER 3 DAYS 12/27/16 16:00 Blood-Venous Blood Culture - Preliminary NO GROWTH AFTER 3 DAYS 12/27/16 16:50 Urine Urine Culture - Final Enterococcus Faecalis Lab Results: 12/27/16 16:26 12/27/16 16:26 Lab Results 12/27/16 16:50: Urine Color Yellow, Urine Appearance Cloudy, Urine pH 6.0, Ur Specific [place] 1.020, Urine Protein 100 H, Urine Glucose (UA) Negative, Urine Ketones Negative, Urine Blood Large H, Urine Nitrate Negative, Urine Bilirubin Negative, Urine Urobilinogen 0.2, Ur Leukocyte Esterase Moderate H, Urine RBC 25 - 30, Urine WBC 15 - 20, Ur Epithelial Cells 1 - 3, Urine Bacteria Many 12/27/16 16:26: TSH 3rd Generation 2.91 12/27/16 16:26: Influenza Typ A,B (EIA) Negative for flu a/b 12/27/16 16:26: Sodium 142, Potassium 4.3, Chloride 107, Carbon Dioxide 26, Anion Gap 13, BUN 36 H, Creatinine 1.6 H, Est GFR ( Amer) 40, Est GFR ( Non-Af Amer) 33, Random Glucose 226 H, Calcium 8.6, Total Bilirubin 0.2, AST 12 L, ALT 22, Alkaline Phosphatase 92, Troponin I < 0.01, NT-Pro-B Natriuret Pep 201, Total Protein 6.2, Albumin 3.6, Globulin 2.5, Albumin/Globulin Ratio 1.4 12/27/16 16:26: WBC 9.6 D, RBC 3.99, Hgb 11.7 L, Hct 36.7, MCV 92.0, MCH 29.3, MCHC 31.9, RDW 14.6 H, Plt Count 239, MPV 10.4, Gran % 69.5 H, Lymph % (Auto) 20.9 L, [place] % (Auto) 5.7, Eos % (Auto) 3.4, Baso % (Auto) 0.5, Gran # 6.66 H, Lymph # 2.0, [place] # 0.6, Eos # 0.3, Baso # 0.05 12/27/16 16:06: POC Glucose (mg/dL) 222 H I have reviewed the lab results: Yes - RAD Interpretation Radiology Orders: 12/27/16 16:13 CHEST TWO VIEWS (PA/LAT) [RAD] Stat - Medication Orders Current Medication Orders: Discontinued Medications Albuterol/Ipratropium (Duoneb 3 Mg/0.5 Mg (3 Ml) Ud) 3 ml IH ONCE STA Stop: 12/27/16 16:14 Last Admin: 12/27/16 16:46 Dose: 3 ml Albuterol/Ipratropium (Duoneb 3 Mg/0.5 Mg (3 Ml) Ud) 3 ml IH [id number] LUCIANO Albuterol/Ipratropium (Duoneb 3 Mg/0.5 Mg (3 Ml) Ud) 3 ml IH Q2H PRN PRN Reason: Shortness of Breath Alprazolam (Xanax) 0.5 mg PO QID LUCIANO PRN Reason: Protocol Stop: 01/04/17 10:01 Last Admin: 12/30/16 09:52 Dose: 0.5 mg Behavioural Document 12/30/16 09:52 SES (Rec: 12/30/16 09:52 [id number] Maintenance Maintenance Dose Yes Re-Assess: Reassess Psych Meds Document 12/30/16 10:52 SES (Rec: 12/30/16 13:00 [id number] Reassess Psych Med Effective Ampicillin (Ampicillin) 500 mg PO QID LUCIANO PRN Reason: Protocol Stop: 01/08/17 18:01 Last Admin: 12/30/16 09:52 Dose: 500 mg Arformoterol Tartrate (Brovana) 15 mcg IH [id number] LUCIANO Last Admin: 12/30/16 07:15 Dose: 15 mcg Budesonide (Pulmicort Respules) 0.5 mg IH [id number] LUCIANO Last Admin: 12/30/16 07:16 Dose: 0.5 mg Ceftriaxone Sodium (Rocephin 1 Gram Ivpb) 1 gm in 100 mls @ 200 mls/hr IVPB STAT STA PRN Reason: Protocol Stop: 12/27/16 18:22 Last Admin: 12/27/16 18:04 Dose: 200 mls/hr eMAR Start Stop Document 12/27/16 18:04 SE (Rec: 12/27/16 18:04 SE [id number][place] Intravenous Solution Start Date 12/27/16 Start Time 18:04 Ceftriaxone Sodium (Rocephin 1 Gram Ivpb) 1 gm in 100 mls @ 100 mls/hr IVPB DAILY LUCIANO PRN Reason: Protocol Last Admin: 12/28/16 10:06 Dose: 100 mls/hr eMAR Start Stop Document 12/28/16 10:06 EP (Rec: 12/28/16 10:07 EP [id number]) Intravenous Solution Start Date 12/28/16 Start Time 10:07 End Date 12/28/16 End time 11:07 Total Infusion Time 60 Piperacillin Sod/Tazobactam Sod (Zosyn 2.25 Gm In 0.9% 100 Ml) 2.25 gm in 100 mls @ 100 mls/hr IV Q8 LUCIANO PRN Reason: Protocol Stop: 01/04/17 15:30 Last Admin: 12/29/16 13:45 Dose: 100 mls/hr eMAR Start Stop Document 12/29/16 13:45 YJ (Rec: 12/29/16 13:46 YJ [facility] [id number]) Intravenous Solution Start Date 12/29/16 Start Time 13:45 End Date 12/29/16 End time 14:45 Total Infusion Time 60 Insulin Detemir (Levemir) 15 unit SC [facility] Last Admin: 12/29/16 21:51 Dose: 15 unit MAR Blood Glucose Document 12/29/16 21:51 PCO (Rec: 12/29/16 21:51 PCO [facility] [id number]) Blood Glucose Finger Stick Blood Glucose (70-120) 174 Subcutaneous Administrations Document 12/29/16 21:51 PCO (Rec: 12/29/16 21:51 PCO [facility] [id number]) Injection Site MAR Injection Site Right Arm Charges for Administration # of Subcutaneous Administrations 1 Insulin Human Lispro (Humalog) 5 units SC [facility] Last Admin: 12/30/16 13:00 Dose: Not Given Non-Admin Reason: Blood Sugar Parameter MAR Blood Glucose Document 12/30/16 13:00 SES (Rec: 12/30/16 13:00 SES [facility]) Blood Glucose Finger Stick Blood Glucose (70-120) 94 Methylprednisolone (Solu-Medrol) 80 mg IVP STAT STA Stop: 12/27/16 16:15 Last Admin: 12/27/16 16:23 Dose: 80 mg IVP Administration Document 12/27/16 16:23 SE (Rec: 12/27/16 16:24 SE [facility] [id number]) Charges for Administration # of IVP Administrations 1 Nicotine (Nicoderm Cq) 1 patch TD DAILY [facility] Last Admin: 12/30/16 09:52 Dose: 1 patch MAR Transdermal Patch Site Document 12/30/16 09:52 SES (Rec: 12/30/16 09:52 SES [facility] [id number]) Transdermal Patch Site Transdermal Patch Site Right Outer Upper Arm Oxycodone/Acetaminophen (Percocet 5/325 Mg Tab) 1 tab PO STAT STA Stop: 12/27/16 16:15 Last Admin: 12/27/16 16:23 Dose: 1 tab MAR Pain Assessment Document 12/27/16 16:23 SE (Rec: 12/27/16 16:23 SE [facility] [id number]) Pain Reassessment Is this a pain reassessment? No Sleep Is patient sleeping during reassessment? No Presence of Pain Presence of Pain Yes Pain Scale Used Pain Scale Used Numeric Oxycodone/Acetaminophen (Percocet 5/325 Mg Tab) 1 tab PO STAT STA Stop: 12/28/16 03:57 Last Admin: 12/28/16 04:02 Dose: 1 tab MAR Pain Assessment Document 12/28/16 04:02 MJ (Rec: 12/28/16 04:02 MJ [id number][place] Pain Reassessment Is this a pain reassessment? No Sleep Is patient sleeping during reassessment? No Presence of Pain Presence of Pain Yes Pain Scale Used Pain Scale Used Numeric Location Pain Location Body Site Back Description Description Constant Intensity of Pain at present 8 Alleviating Factors/Management Medication Techniques Alleviating Factors Medication Oxycodone/Acetaminophen (Percocet 5/325 Mg Tab) 1 tab PO Q6H PRN PRN Reason: Pain, moderate (4-7) Stop: 12/31/16 11:40 Last Admin: 12/30/16 12:08 Dose: 1 tab [facility] Pain Assessment Document 12/30/16 12:08 SES (Rec: 12/30/16 12:08 SES [id number][place] Pain Reassessment Is this a pain reassessment? No Sleep Is patient sleeping during reassessment? No Presence of Pain Presence of Pain Yes Pain Scale Used Pain Scale Used Numeric Location Left, Right or Bilateral Left Pain Location Body Site Back Description Intensity of Pain at present 8 Pain Behavior Guarding Alleviating Factors/Management Medication Techniques Alleviating Factors Medication - Scribe Statement The provider has reviewed the documentation as recorded by the Rafa Murray Provider Scribe Attestation: All medical record entries made by the Joanneibagnes were at my direction and personally dictated by me. I have reviewed the chart and agree that the record accurately reflects my personal performance of the history, physical exam, medical decision making, and the department course for this patient. I have also personally directed, reviewed, and agree with the discharge instructions and disposition. Disposition/Present on Arrival - Present on Arrival Any Indicators Present on Arrival: No History of DVT/PE: No History of Uncontrolled Diabetes: No Urinary Catheter: No History of Decub. Ulcer: No History Surgical Site Infection Following: None - Disposition Have Diagnosis and Disposition been Completed?: Yes Diagnosis: UTI (urinary tract infection) Disposition: HOSPITALIZED Disposition Time: 18:11 Condition: STABLE
[2016-12-27 16:36] LABS: BASO # 0.05 K/mm3 (0.0-2.0); BASO % 0.5 % (0.0-3.0); EOS # 0.3 (0.0-0.7); EOS % 3.4 % (1.5-5.0); GRAN # 6.66 (1.4-6.5); GRAN % 69.5 % (50.0-68.0); HEMATOCRIT 36.7 % (36.0-48.0); LYMPH % 20.9 % (22.0-35.0); MEAN CORPUSCULAR HEMOGLOBIN 29.3 pg (25.0-35.0); MEAN CORPUSCULAR HGB CONC 31.9 g/dl (31.0-37.0); MEAN PLATELET VOLUME 10.4 fl (7.0-11.0); MONO # 0.6 (0.1-0.6); MONO % 5.7 % (1.0-6.0); RED CELL DISTRIBUTION WIDTH 14.6 % (11.5-14.5); WHITE BLOOD COUNT 9.6 10^3/ul (4.5-11.0)
--- NOTE | 2016-12-27 16:49 | RAD ---
HISTORY: Weakness COMPARISON: 09/27/2016 TECHNIQUE: Chest PA and lateral FINDINGS: LUNGS: Resolution right middle lobe infiltrate PLEURA: No significant pleural effusion identified. No pneumothorax apparent. CARDIOVASCULAR: No radiographic findings to suggest acute or significant cardiovascular disease. Venous access catheter in stable, satisfactory position. OSSEOUS STRUCTURES: No significant abnormalities. VISUALIZED UPPER ABDOMEN: Normal. OTHER FINDINGS: None. IMPRESSION: No active disease. Right middle lobe infiltrate apparent previously has resolved
[2016-12-27 16:51] LABS: ALB/GLOB RATIO 1.4 (1.1-1.8); ALKALINE PHOSPHATASE 92 U/L (38-126); ALT/SGPT 22 U/L (7-56); AST/SGOT 12 U/L (14-36); BILIRUBIN,TOTAL 0.2 mg/dL (0.2-1.3); BLOOD UREA NITROGEN 36 mg/dL (7-21); CALCIUM 8.6 mg/dL (8.4-10.5); CARBON DIOXIDE 26 mmol/L (21-33); CHLORIDE 107 mmol/L (98-107); GFR AFRICAN-AMERICAN 40; GLUCOSE,RANDOM 226 mg/dL (70-110); POTASSIUM 4.3 mmol/L (3.6-5.0); SODIUM 142 mmol/L (132-148); TOTAL PROTEIN 6.2 g/dL (5.8-8.3)
[2016-12-27 17:03] LABS: TROPONIN I < 0.01 ng/mL
[2016-12-27 17:11] LABS: URINE BILIRUBIN NEGATIVE (NEGATIVE); URINE BLOOD LARGE (NEGATIVE); URINE GLUCOSE (UA) NEGATIVE (NEGATIVE); URINE KETONE NEGATIVE (NEGATIVE); URINE LEUKOCYTE ESTERASE MODERATE Leu/uL (NEGATIVE); URINE PROTEIN 100 mg/dL (<30 mg/dL); URINE UROBILINOGEN 0.2 E.U./dL (<1 E.U./dL)
[2016-12-27 17:14] LABS: URINE APPEARANCE CLOUDY (CLEAR); URINE COLOR YELLOW (YELLOW)
[2016-12-27 17:24] LABS: URINE BACTERIA MANY (NEG); URINE RBC 25 - 30 /hpf (0-2); URINE WBC 15 - 20 /hpf (0-6)
[2016-12-27] MEDS ORDERED: cefTRIAXone 1 gm 1 GM/100 ML BAG IVPB STA (17:53)
[2016-12-28] MEDS ORDERED: Oxycodone/Acetaminophen 5/325 mg Tab PO STA (03:56)
[2016-12-28] MEDS ORDERED: Albuterol-Ipratrop 3 mg / 0.5 (3 ml) UD IH PRN (08:16)
[2016-12-28 08:31] VITALS: RESP 20
[2016-12-28] MEDS ORDERED: cefTRIAXone 1 gm 1 GM/100 ML BAG IVPB SCH (10:00)
--- NOTE | 2016-12-28 11:05 | CARD ---
APPROVED REPORT EKG Measurement Heart [id number] IA [id number] [id number] <Conclusion> Normal sinus rhythm Normal ECG
[2016-12-28] MEDS: Insulin Lispro 1 UNITS/0.01 ML SC SCH ×3 (12:02→17:36)
[2016-12-28] MEDS: Oxycodone/Acetaminophen 5/325 mg Tab PO PRN ×2 (12:04→19:50)
[2016-12-28] MEDS ORDERED: Albuterol-Ipratrop 3 mg / 0.5 (3 ml) UD IH SCH (14:00)
--- NOTE | 2016-12-28 14:41 | PN ---
REASON FOR ADMISSION: The patient came into the hospital because of generalized weakness and dysuria. The patient has no other complaints. HISTORY OF PRESENT ILLNESS: A 56-year-old female with history of underlying COPD, insulin-dependent diabetes, breast CA, poorly compliant. The patient came in to the hospital because she feels weakness all over and felt dizzy in the past few weeks. The patient is on multiple medications, multiple health issues. She denied any fever or chills, denied any nausea or vomiting and she does have frequent urinations. PAST MEDICAL HISTORY: As I mentioned, she does have severe COPD, on oxygen. She does have breast CA. She has insulin-dependent diabetes, anxiety, chronic osteoarthritis, and chronic back pain. ALLERGIES: SHE IS ALLERGIC TO LEVOFLOXACIN AND NYSTATIN. FAMILY HISTORY: Noncontributory. SOCIAL HISTORY: The patient currently is still smoking.. REVIEW OF SYSTEMS: Shows complaint of frequent urinations, coughing, short of breath, generalized weakness. PHYSICAL EXAMINATION: GENERAL: The patient was seen on 12/27/2016. VITAL SIGNS: Her temperature 98.4, heart rate 93, blood pressure is 119/55, respiratory rate is 16, saturating 98% on room air. HEAD AND NECK: Normal. No JVD. No thyromegaly. CHEST: Clear. Good air entry. CARDIAC: First sound and second sound normal. LUNGS: Diminished breath sounds bilaterally, but clear. ABDOMEN: Soft. Nontender. EXTREMITIES: No edema. NEUROLOGIC: She is generally weak, but nonfocal. She is alert, awake, and oriented x3. LABORATORY STUDIES: Shows white count 9.6, hemoglobin 11.7, hematocrit 36.7, platelets 239. Chemistry shows sodium 142, potassium 4.3, chloride 107, bicarbonate 26, BUN 36, creatinine 1.6, blood sugar 222. Her liver enzymes are normal. Troponin is negative. TSH is 2.91. The patient had an urinalysis shows moderate leukocytes, 25-30 red blood cells and 15-20 white blood cells. The patient has influenza serology which is negative. She also had chest x-ray on admission and the x-ray report shows resolution of right middle lobe infiltrates. EKG was reported to be normal sinus rhythm by ER. IMPRESSION AND PLAN: 1. This is a 56-year-old female with multiple medical problems. We will admit the patient for observation, evaluation, and treatment. We will get urine cultures, put the patient on IV Rocephin. Infectious Disease consult, Dr. Malcolm. 2. Her diabetes and underlying chronic obstructive pulmonary disease would assume inhaled bronchodilators. We will also continue insulin coverage. 3. Chronic back pain, chronic anxiety, resume Xanax and Percocet for her pain. 4. Continue current therapy. Followup clinically with the investment consultant. Sloan Sosa MD
[2016-12-28] MEDS: Piperacillin/Tazobact 2.25gm 2.25 GM/100 ML BAG IV SCH ×2 (16:14→21:06)
[2016-12-28] MEDS ORDERED: Arformoterol 15 mcg/2 ml Inh Sol IH SCH (20:00)
--- NOTE | 2016-12-28 20:09 | CON ---
DATE: 12/28/2016 LOCATION: The patient seen early this morning in room 569, bed 2. CHIEF COMPLAINT: Weakness and the patient was complaining of dysuria and frequency. HISTORY OF PRESENT ILLNESS: This is a 56-year-old female with past medical history significant for Carmen esophagitis, end-stage chronic obstructive lung disease, diabetes, hypertension, urinary tract infection and breast cancer with chemotherapy a year ago, continues to be a smoker, who was given antibiotics as an outpatient recently for pulmonary symptoms with minimal improvement. REVIEW OF SYSTEMS: Reveals the patient does have frequency and dysuria. No fevers and chills. No chest pain. There is a usual cough, usual shortness of breath. No abdominal pain or diarrhea. PAST MEDICAL HISTORY: Significant for end-stage COPD, healthcare-associated pneumonia, Carmen esophagitis, diabetes mellitus, hypertension, urinary tract infection, breast cancer. PAST SURGICAL HISTORY: Significant for bladder surgery and spine surgery. ALLERGIES: THE PATIENT IS ALLERGIC TO LEVAQUIN AND NYSTATIN. MEDICATIONS AT HOME: Include Xanax, inhaler, insulin, and oxycodone. PHYSICAL EXAMINATION: VITAL SIGNS: The patient is in bed with a temperature of 98, heart rate of 104, respiratory rate of 20 and blood pressure is 119/50. HEENT: Examination of HEENT is unremarkable. NECK: Supple. LUNGS: Have decreased breath sounds. HEART: Normal S1, S2. ABDOMEN: Examination is soft, nontender. LABORATORY EXAMINATION: Reveals the patient to have a white count of 9.6, hemoglobin 11, platelets of 239, BUN of 36, creatinine of 1.6. The patient's creatinine in the past have been in the 1.8 to 1.9 range. Urinalysis reveals the patient's wbc's are 15 to 20 wbc's and bacteria. Influenza serology is negative. Urine culture is Gram-positive cocci, greater than 100,000 colonies. ASSESSMENT AND PLAN: A 56-year-old female with history of healthcare-associated pneumonia, Carmen esophagitis, end-stage chronic obstructive lung disease, diabetes, hypertension, breast cancer with a Gram-positive cocci urinary tract infection. We will discontinue the Rocephin and use Zosyn to cover Enterococcus given the fact that the patient had been on antibiotics as an outpatient and the patient is ALLERGIC TO LEVAQUIN. We will check on the identification of Gram-positive cocci in the urine. We will check on the blood culture which is pending. We will make further recommendations. Prsaanth Malcolm MD
[2016-12-28] MEDS: Insulin Detemir 100 units/ml Vial (Levemir) SC SCH (22:15)
[2016-12-28] MEDS: Arformoterol 15 mcg/2 ml Inh Sol IH SCH (22:15)
[2016-12-28] MEDS: Budesonide 0.5 mg/2 ml Inhal Susp UD IH SCH (22:15)
[2016-12-29] MEDS: Piperacillin/Tazobact 2.25gm 2.25 GM/100 ML BAG IV SCH ×2 (06:21→13:45)
[2016-12-29] MEDS: Arformoterol 15 mcg/2 ml Inh Sol IH SCH (07:30)
[2016-12-29] MEDS: Budesonide 0.5 mg/2 ml Inhal Susp UD IH SCH (07:30)
[2016-12-29] MEDS: Oxycodone/Acetaminophen 5/325 mg Tab PO PRN ×3 (08:32→23:38)
[2016-12-29] MEDS: Insulin Lispro 1 UNITS/0.01 ML SC SCH ×3 (08:32→17:19)
--- NOTE | 2016-12-29 17:19 | PN ---
DATE: 12/29/2016 SUBJECTIVE: The patient is in bed in no acute distress. PHYSICAL EXAMINATION VITAL SIGNS: Temperature is 97, blood pressure is 130/60, respiratory rate of 18. HEENT: Unremarkable. NECK: Supple. LUNGS: Decreased breath sounds. HEART: Normal S1, S2. ABDOMEN: Soft and nontender. LABORATORY EXAMINATION: Reveals a white count of 9.6, hemoglobin of 11, platelets of 239. Creatinine is 1.6. Urinalysis is noted. Serology is noted. Microbiology reveals Enterococcus callus in the urine culture sensitive to ampicillin. ASSESSMENT/PLAN: He is a 56-year-old female with a history of healthcare-associated pneumonia, Carmen esophagitis, end-stage chronic obstructive lung disease, diabetes, hypertension, breast cancer, Enterococcus urinary tract infection. We will discontinue Zosyn and treat the patient to with ampicillin x7 to 10 days. Prasanth Malcolm MD
[2016-12-29] MEDS: Insulin Detemir 100 units/ml Vial (Levemir) SC SCH (21:51)
[2016-12-30 01:09] VITALS: PULSE 79
[2016-12-30] MEDS: Oxycodone/Acetaminophen 5/325 mg Tab PO PRN ×2 (05:57→12:08)
[2016-12-30] MEDS: Arformoterol 15 mcg/2 ml Inh Sol IH SCH (07:15)
[2016-12-30] MEDS: Budesonide 0.5 mg/2 ml Inhal Susp UD IH SCH (07:16)
[2016-12-30 07:49] VITALS: BP 125/51; TEMP 98.3; O2SAT 100
[2016-12-30] MEDS: Insulin Lispro 1 UNITS/0.01 ML SC SCH ×2 (08:06→13:00)
--- NOTE | 2016-12-30 12:08 | PN ---
DATE: 12/30/2016 SUBJECTIVE: The patient is in bed, in no acute distress. OBJECTIVE: VITAL SIGNS: Temperature of 98, blood pressure is 125/50 and respiratory of 20. EXAMINATION OF HEENT: Unremarkable. NECK: Supple. LUNGS: Have decreased breath sounds. HEART EXAM: Normal S1 and S2. ABDOMEN EXAMINATION: Soft and nontender. LABORATORY EXAMINATION: Reveals a white count is 9.6, hemoglobin 11 and platelets of 239. The patient's creatinine is 1.6. Microbiology is reviewed, enterococcus and the patient is currently on ampicillin. ASSESSMENT AND PLAN: This is a 56-year-old female with a history of healthcare-associated pneumonia, Carmen esophagitis, end-stage chronic obstructive lung disease, diabetes, hypertension, breast cancer and enterococcus urinary tract infection, on p.o. ampicillin, would recommend 7 to 10 days. Prasanth Malcolm MD
--- NOTE | 2017-01-03 10:06 | PN ---
DATE: 12/29/2016 SUBJECTIVE: The patient is stable currently. Admitted with urinary tract infection, Enterococcus, on Zosyn by ID consult. The patient is stable. No nausea. No vomiting. No fever. PHYSICAL EXAMINATION: On 12/29/2016 is as follows: VITAL SIGNS: Temperature 97.9, heart rate 88, blood pressure 136/62, respirations 20, saturation 98% on 2 liters. HEAD AND NECK: Normal. No JVD. No thyromegaly. CHEST: Clear. Good air entry. CARDIAC: First sound and second sound normal. ABDOMEN: Soft, obese, nontender. EXTREMITIES: No edema. NEUROLOGIC: Normal. IMPRESSION AND PLAN: 1. Acute urinary tract infections, the patient has Enterococcus faecalis, sensitive to ampicillin and amoxicillin; sensitive to Zyvox, penicillin, and vancomycin. We will discuss with Dr. Malcolm. 2. Chronic obstructive pulmonary disease, stable. Continue inhaled bronchodilators. 3. Breast carcinoma. 4. Insulin-dependent diabetes. 5. Chronic anxiety. 6. Chronic back pain. 7. Chronic osteoarthritis. Continue current therapy. Follow up clinically. The patient seem stable, will be discharged on p.o. medications. We will discuss with ID consult. Sloan Sosa MD
--- NOTE | 2017-01-03 15:10 | PN ---
DATE: 12/28/2016 SUBJECTIVE: The patient has had UTI. The patient seems clinically stable. No chest pain. No short of breath. PHYSICAL EXAMINATION: VITAL SIGNS: Temperature 97.2, heart rate 84, blood pressure is 135/70, respirations 18, and saturation 94%. HEAD AND NECK: Normal. No JVD. No thyromegaly. CHEST: Clear. Good air entry. CARDIAC: First sound and second sound normal. ABDOMEN: Obese, soft, and nontender. EXTREMITIES: No edema. NEUROLOGIC: Normal. LABORATORY DATA: Blood sugar 199, otherwise stable. UA shows enterococcus. IMPRESSION: 1. Acute urinary tract infection. Continue Rocephin for now. Follow up with ID consult, Dr. Malcolm. 2. Chronic obstructive pulmonary disease, stable. Continue bronchodilators. 3. History of breast carcinoma, . 4. Diabetes, insulin-dependent. 5. Chronic anxiety. 6. Chronic back pain. 7. Obesity. 9. Noncompliance. PLAN: Continue current therapy. Follow up clinically. Sloan oSsa MD
--- NOTE | 2017-01-03 21:30 | DS ---
HISTORY OF PRESENT ILLNESS: The patient was admitted with UTI. Urine culture shows Enterococcus faecalis, seen by ID consult, Dr. Malcolm. The patient was put on ampicillin and the prescription was sent to the [facility]. The patient is clinically stable. No nausea, no vomiting, no fever and no respiratory distress. PHYSICAL EXAMINATION: VITAL SIGNS: Stable, temperature 98.3, heart rate 79, blood pressure 125/51, respiratory rate 20 and saturating 100%. HEAD AND NECK: Normal. No JVD. No thyromegaly. CHEST: Clear. Good air entry. CARDIAC: First sound and second sound normal. ABDOMEN: Soft,nontender. EXTREMITIES: No edema. NEUROLOGIC: Normal. DISCHARGE DIAGNOSES: 1. Acute urinary tract infection. 2. Chronic obstructive pulmonary disease. 3. Breast cancer, advanced. 4. Chronic back pain, chronic osteoarthritis, on narcotics. 5. Chronic anxiety. 6. Insulin-dependent diabetes. 7. Noncompliance. PLAN: Continue current therapy. Follow up in the office within a week or two. Follow up with oncologist. Monitor blood sugar on a regular basis. We will continue current therapy. Sloan Sosa MD
== END 2016-12-30 13:45 | disposition home or self-care (01) | DRG 690 ==
LOC: ED 15:31 → ERH 18:11 → 5RNO 21:05
PROVIDERS: ADMIT Internal Medicine; ATTEND Internal Medicine
DX: N39.0 Urinary tract infection, site not specified (principal); B37.81 Candidal esophagitis; I10 Essential (primary) hypertension; E11.9 Type 2 diabetes mellitus without complications; B95.2 Enterococcus as the cause of diseases classified elsewhere; J44.9 Chronic obstructive pulmonary disease, unspecified; F17.210 Nicotine dependence, cigarettes, uncomplicated; G89.29 Other chronic pain; F41.9 Anxiety disorder, unspecified; M54.9 Dorsalgia, unspecified; M19.90 Unspecified osteoarthritis, unspecified site; Z85.3 Personal history of malignant neoplasm of breast; Z87.01 Personal history of pneumonia (recurrent); Z79.4 Long term (current) use of insulin; Z88.1 Allergy status to other antibiotic agents; Z91.19 Patient's noncompliance with other medical treatment and regimen

== ENCOUNTER 2017-01-30 01:53 | Inpatient (IN) | payer MEDICAID, OTHER ==
[2017-01-30 01:53] VITALS: BMI 25.7
[2017-01-30] MEDS ORDERED: Sodium Chloride 0.9% 1,000 ML IV STA (02:15)
--- NOTE | 2017-01-30 02:21 | ED PDOC ---
Arrival/HPI - General Chief Complaint: Medical Clearance Time Seen by Provider: 01/30/17 02:06 Historian: Patient - History of Present Illness Narrative History of Present Illness (Text): 01/30/17 02:10 Yazmin Granado is a 56 year old female, whose past medical history includes COPD, asthma, on oxygen (3L), breast cancer (last chemotherapy treatment a year ago) and diabetes, who presents to the emergency department complaining of vomiting, falling, and passing out prior to arrival. Patient denies any head injury. Patient is also complaining of right knee pain after falling on her right side and pooping herself. However, Patient's son states that patient fell out of bed, therefore details of history are unclear. Patient states that she experiences some shortness of breath but denies any chest pain, abdominal pain, or any other complaints at this time. Time/Duration: Prior to Arrival Activities at Onset: Rest Modifying Factors (Text): none Context: Home Past Medical History - Provider Review Nursing Documentation Reviewed: Yes - Infectious Disease Hx of Infectious Diseases: None - Tetanus Immunization Tetanus Immunization: Unknown - Reproductive Menopause: Yes - Cardiac Hx Cardiac Disorders: Yes Hx Hypertension: Yes - Pulmonary Hx Bronchitis: Yes Hx Chronic Obstructive Pulmonary Disease (COPD): Yes Hx Emphysema: Yes - Neurological Hx Neurological Disorder: No - HEENT Hx HEENT Disorder: Yes ([place] left ear) Hx Cataracts: Yes - Renal Hx Renal Disorder: No (HYDRONEPHROSIS) Hx Kidney Stones: Yes - Endocrine/Metabolic Hx Diabetes Mellitus Type 2: Yes - Hematological/Oncological Hx Blood Disorders: Yes Hx Cancer: Yes (breast cancer left dx 06/2015) Hx Chemotherapy: Yes - Integumentary Hx Dermatological Disorder: Yes Other/Comment: multiple age spots to back, small white areas of skin to left arm , ble skin discolorations, reddened buttock and hard red areas of skin to lower r and left buttock,multiple scabs and dry discolored skin areas to both arms, poor hygeine dirty toes and elbows - Musculoskeletal/Rheumatological Hx Arthritis: Yes Hx Back Pain: Yes (chronic) Hx Falls: Yes (past falls) - Gastrointestinal Hx Gastrointestinal Disorders: Yes (esophagitis/ pelvic mass) Hx Gastroesophageal Reflux: Yes - Genitourinary/Gynecological Hx Genitourinary Disorders: Yes Hx Urinary Tract Infection: Yes - Psychiatric Hx Psychophysiologic Disorder: Yes Hx Anxiety: Yes Hx Substance Use: No - Past Surgical History Past Surgical History: Non-Contributing - Surgical History Other/Comment: left breast bx 07/01/15, umbilical hernia repair, c section x 2 extopic , excision of abd tumor, rcw pac, umbilical hernia repair - Anesthesia Hx Anesthesia Reactions: No Hx Malignant Hyperthermia: No - Suicidal Assessment Feels Threatened In Home Enviroment: No Family/Social History - Physician Review Nursing Documentation Reviewed: Yes Family/Social History: No Known Family HX Smoking Status: Heavy Smoker > 10 Cigarettes Daily Hx Alcohol Use: No Hx Substance Use: No Hx Substance Use Treatment: No Allergies/Home Meds Allergies/Adverse Reactions: Allergies levofloxacin [From Levaquin] Allergy (Verified 01/30/17 02:04) SHORTNESS OF BREATH;PARANOID nystatin Allergy (Verified 01/30/17 02:04) SWELLING Home Medications: Home Meds Medication Instructions Recorded Confirmed Albuterol/Ipratropium [Duoneb 3 3 ml IH Q2H PRN 12/29/16 12/29/16 mg/0.5 mg (3 ml) UD] Arformoterol [Brovana] 15 mcg IH Q12H 12/29/16 12/29/16 Budesonide [Pulmicort Respules] 0.5 mg IH Q12H 12/29/16 12/29/16 Review of Systems - Physician Review All systems were reviewed & negative as marked: Yes - Review of Systems Constitutional: absent: Fevers, Night Sweats Eyes: absent: Vision Changes ENT: absent: Hearing Changes Respiratory: absent: SOB Cardiovascular: absent: Chest Pain Gastrointestinal: Vomiting Genitourinary Female: absent: Dysuria, Frequency Musculoskeletal: Other (R knee pain) Skin: absent: Rash, Pruritis Neurological: absent: Headache, Dizziness Endocrine: absent: Diaphoresis, Polyuria Hemo/Lymphatic: absent: Adenopathy, Easy Bleeding Psychiatric: absent: Anxiety Physical Exam Vital Signs Reviewed: Yes Vital Signs Temp Pulse Resp BP Pulse Ox 01/30/17 03:40 98.5 F 01/30/17 02:14 99.6 F 117 H 17 162/74 H 90 L Temperature: Afebrile Blood Pressure: Hypertensive Pulse: Tachycardic Respiratory Rate: Normal Appearance: Positive for: Ill-Appearing Pain Distress: Mild Mental Status: Positive for: Lethargic (lethargic; oriented to person, place, not to time) - Systems Exam Head: Present: Atraumatic, Normocephalic Pupils: Present: PERRL Conjunctiva: Present: Normal Mouth: Present: Dry Pharnyx: Present: Normal. No: ERYTHEMA, EXUDATE Neck: Present: Normal Range of Motion. No: JVD Respiratory/Chest: Present: Decreased Breath Sounds, Rales (R side > L side). No: Respiratory Distress, Accessory Muscle Use Cardiovascular: Present: Regular Rate and Rhythm, Normal S1, S2. No: Murmurs Abdomen: Present: Normal Bowel Sounds. No: Tenderness, Distention, Peritoneal Signs Back: Present: Normal Inspection Upper Extremity: Present: Normal Inspection. No: Cyanosis, Edema Lower Extremity: Present: Swelling (Right knee on the medial side with mild ecchymosis), Other (mild feces semared on bilateral posterior thighs) Neurological: Present: GCS=15, CN II-XII Intact, Speech Normal Skin: Present: Warm, Dry, Normal Color. No: Rashes Psychiatric: Present: Lethargic Medical Decision Making ED Course and Treatment: 01/30/17 02:22 Impression: 56 year old female complaining of vomiting, falling, and passing out prior to arrival. Differential Diagnosis included but are not limited to: neurocardiogenic syncope vs vasovagal syncope vs dehydration vs hypercapnea vs infection Plan: -- EKG -- Chest X-ray -- Right Knee X-ray -- Head CT w/o contrast -- ABG -- Urinalysis and Urine Culture -- Labs -- Zofran and IV Fluids -- Reassess and disposition Prior Visits: Notes and results from previous visits were reviewed. Patient was last seen in the emergency department on 12/27/16 for generalized weakness and dizziness for one week. Patient was admitted to hospitalist care for further evaluation. Progress Notes: 01/30/17 03:53 Patient with noted mild lethargy and unclear history. Vitals with tachycardia but hemodynamically stable and afebrile. ABG showing hypercapneic respiratory acidosis - will need steroids, nebs, and Bipap. CXR showing pneumonia - will need antibiotics. Labs showing renal insufficiency. Given her ams with hypercapnea - will need admission to the ICU for close monitoring - discussed with Dr. Neal. Patient is Dr. Sosa', so will admit to the hospitalist's service. 01/30/17 03:59 Also of note - patient with R knee pain on the medial side. X-ray shows ? abnormality near the tibial plateau - will order CT of the R knee; results pending - which will be followed by the admitting team. - Critical Care Critical Care Minutes: 30 minutes - Lab Interpretations Lab Results: 01/30/17 02:30 01/30/17 02:30 Lab Results 01/30/17 03:21: pCO2 65 H, pO2 98.0, HCO3 22.1, ABG pH 7.14 L*, ABG Total CO2 24.1, ABG O2 Saturation 98.5 H, ABG Base Excess -7.9 L, ABG Potassium 3.7, Glucose 148 H, Lactate 0.3 L, FiO2 36.0, Sodium 145.0, Chloride 116.0 H, Arterial Blood Potassium 3.7 01/30/17 02:30: Alcohol, Quantitative < 10 01/30/17 02:30: Sodium 144, Potassium 4.3, Chloride 110 H, Carbon Dioxide 25, Anion Gap 13, BUN 45 H, Creatinine 2.2 H, Est GFR ( Amer) 28, Est GFR ( Non-Af Amer) 23, Random Glucose 167 H, Calcium 9.1, Magnesium 1.9, Total Bilirubin 0.4, Direct Bilirubin 0.4, AST 18, ALT 28, Alkaline Phosphatase 102, Lactate Dehydrogenase 341, Total Creatine Kinase 109, Troponin I < 0.01, Total Protein 6.6, Albumin 3.7, Globulin 2.9, Albumin/Globulin Ratio 1.3, Lipase 43 01/30/17 02:30: PT 12.2, INR 1.12 H, APTT 40.3 H 01/30/17 02:30: WBC 9.7, RBC 3.92, Hgb 11.6 L, Hct 36.9, MCV 94.1, MCH 29.6, MCHC 31.4, RDW 14.7 H, Plt Count 257, MPV 9.8, Gran % 79.5 H, Lymph % (Auto) 12.5 L, [place] % (Auto) 6.1 H, Eos % (Auto) 1.6, Baso % (Auto) 0.3, Gran # 7.74 H , Lymph # 1.2, [place] # 0.6, Eos # 0.2, Baso # 0.03 I have reviewed the lab results: Yes - RAD Interpretation Narrative RAD Interpretations (Text): 01/30/17 03:53 CXR: RML infiltrate Radiology Orders: 01/30/17 02:14 CHEST TWO VIEWS (PA/LAT) [RAD] Stat KNEE W PATELLA RIGHT 3 VIEW [RAD] Stat 01/30/17 02:15 Brain [HEAD W/O CONTRAST] [CT] Stat 01/30/17 03:43 KNEE WITHOUT CONTRAST RIGHT [CT] Stat - EKG Interpretation EKG Interpretation (Text): 01/30/17 03:52 sinus tachycardia @ 107; normal intervals; normal axis; no ST/T changes. Interpreted by ED Physician: Yes Type: 12 lead EKG - Medication Orders Current Medication Orders: Vancomycin HCl 1 gm/ Sodium (Chloride) 250 mls @ 133.333 mls/hr IV STAT STA PRN Reason: Protocol Stop: 01/30/17 05:36 Piperacillin Sod/Tazobactam Sod (Zosyn 2.25 Gm In 0.9% 100 Ml) 2.25 gm in 100 mls @ 100 mls/hr IVPB STAT STA PRN Reason: Protocol Stop: 01/30/17 04:44 Discontinued Medications Sodium Chloride (Sodium Chloride 0.9%) 1,000 mls @ 999 mls/hr IV .Q1H1M STA Stop: 01/30/17 03:15 Last Admin: 01/30/17 02:00 Dose: 999 mls/hr eMAR Start Stop Document 01/30/17 02:00 LAC (Rec: 01/30/17 03:41 LAC [id number]) Intravenous Solution Start Date 01/30/17 Start Time 02:00 End Date 01/30/17 End time 03:00 Total Infusion Time 60 Ondansetron HCl (Zofran Inj) 4 mg IVP STAT STA Stop: 01/30/17 02:14 Last Admin: 01/30/17 02:00 Dose: 4 mg IVP Administration Document 01/30/17 02:00 LAC (Rec: 01/30/17 03:40 LAC [id number]) Charges for Administration # of IVP Administrations 1 - Scribe Statement The provider has reviewed the documentation as recorded by the Rafa Schaffer Provider Scribe Attestation: All medical record entries made by the Scribe were at my direction and personally dictated by me. I have reviewed the chart and agree that the record accurately reflects my personal performance of the history, physical exam, medical decision making, and the department course for this patient. I have also personally directed, reviewed, and agree with the discharge instructions and disposition. Disposition/Present on Arrival - Present on Arrival Any Indicators Present on Arrival: No History of DVT/PE: No History of Uncontrolled Diabetes: No Urinary Catheter: No History of Decub. Ulcer: No History Surgical Site Infection Following: None - Disposition Have Diagnosis and Disposition been Completed?: Yes Diagnosis: COPD (chronic obstructive pulmonary disease), Renal failure, Pneumonia, Hypercapnic acidosis Disposition: HOSPITALIZED Disposition Time: 03:40 Patient Plan: Admission Condition: CRITICAL
[2017-01-30 02:48] LABS: BASO # 0.03 K/mm3 (0.0-2.0); BASO % 0.3 % (0.0-3.0); EOS # 0.2 (0.0-0.7); EOS % 1.6 % (1.5-5.0); GRAN # 7.74 (1.4-6.5); GRAN % 79.5 % (50.0-68.0); HEMATOCRIT 36.9 % (36.0-48.0); LYMPH # 1.2 (1.2-3.4); LYMPH % 12.5 % (22.0-35.0); MEAN CELL VOLUME 94.1 fl (80.0-105.0); MEAN CORPUSCULAR HEMOGLOBIN 29.6 pg (25.0-35.0); MEAN CORPUSCULAR HGB CONC 31.4 g/dl (31.0-37.0); MEAN PLATELET VOLUME 9.8 fl (7.0-11.0); MONO # 0.6 (0.1-0.6); MONO % 6.1 % (1.0-6.0); RED CELL DISTRIBUTION WIDTH 14.7 % (11.5-14.5); WHITE BLOOD COUNT 9.7 10^3/ul (4.5-11.0)
[2017-01-30 02:53] LABS: ALB/GLOB RATIO 1.3 (1.1-1.8); ALKALINE PHOSPHATASE 102 U/L (38-126); ALT/SGPT 28 U/L (7-56); AST/SGOT 18 U/L (14-36); BILIRUBIN,DIRECT 0.4 mg/dL (0.0-0.4); BILIRUBIN,TOTAL 0.4 mg/dL (0.2-1.3); BLOOD UREA NITROGEN 45 mg/dL (7-21); CALCIUM 9.1 mg/dL (8.4-10.5); CARBON DIOXIDE 25 mmol/L (21-33); CHLORIDE 110 mmol/L (98-107); GFR AFRICAN-AMERICAN 28; GLUCOSE,RANDOM 167 mg/dL (70-110); LIPASE 43 U/L (23-300); MAGNESIUM 1.9 mg/dL (1.7-2.2); POTASSIUM 4.3 mmol/L (3.6-5.0); SODIUM 144 mmol/L (132-148); TOTAL PROTEIN 6.6 g/dL (5.8-8.3)
[2017-01-30 02:59] LABS: INR 1.12 (0.93-1.08); PARTIAL THROMBOPLASTIN TIME 40.3 Seconds (25.1-36.5)
[2017-01-30 03:13] LABS: TROPONIN I < 0.01 ng/mL
[2017-01-30 03:25] LABS: ARTERIAL BLOOD GAS HCO3 22.1 mmol/L (21-28)
[2017-01-30 03:33] LABS: ARTERIAL BLOOD GAS PH 7.14 (7.35-7.45)
[2017-01-30] MEDS ORDERED: Piperacillin/Tazobact 2.25gm 2.25 GM/100 ML BAG IVPB STA (03:45)
[2017-01-30] MEDS ORDERED: Ipratropium 0.02% Inhal Soln (0.5 mg/2.5 ml) UD IH STA (04:00)
[2017-01-30] MEDS ORDERED: Levalbuterol 1.25 MG/3 ML Inhal Soln UD IH STA (04:00)
--- NOTE | 2017-01-30 04:01 | CT ---
EXAM: CT Head Without Intravenous Contrast EXAM DATE/TIME: 01/30/2017 2:15 AM CLINICAL HISTORY: 56 years old, female; Injury or trauma; Fall; Initial encounter; Concussion / head injury; Additional info: Fall; Syncope TECHNIQUE: Axial computed tomography images of the head/brain without intravenous contrast. All CT scans at this facility use one or more dose reduction techniques, viz.: automated exposure control; ma/kV adjustment per patient size (including targeted exams where dose is matched to indication; i.e. head); or iterative reconstruction technique. COMPARISON: None is available. FINDINGS: BRAIN: No significant acute abnormality identified. No acute hemorrhage seen within the brain. No acute extra-axial fluid collections visualized. No evidence of significant mass effect within the brain. Normal andujar-white matter differentiation. VENTRICLES: No evidence of significant hydrocephalus. BONES/JOINTS: See below. No acute fractures are seen. SOFT TISSUES: Soft tissue swelling in the left frontal scalp. SINUSES: Visualized paranasal sinuses appear clear. MASTOID AIR CELLS: Patchy fluid in the right mastoid air cells, suspicious for mastoiditis. There is no evidence of an underlying right temporal bone fracture. IMPRESSION: - No evidence of acute intracranial injury or fractures. - Findings suspicious for right mastoiditis. - See above for remaining findings.
[2017-01-30] MEDS ORDERED: Albuterol-Ipratrop 3 mg / 0.5 (3 ml) UD IH PRN (04:07)
--- NOTE | 2017-01-30 04:10 | CP.PCM.HP ---
History of Present Illness - History of Present Illness History of Present Illness: George Mullins D.O. PGY-1, Admit H&P 56 year old female with past medical history of COPD, asthma, on oxygen (3L), breast cancer (last chemotherapy treatment a year ago) and diabetes presents to the emergency department after falling out of bed. History as obtained by her son who was bedside. He states his mother had not been acting like her self recently and may have possibly taken extra pain medication and Xanax. He told his mother to come to the hospital but she would not listen. She eventually fell off the bed onto the floor. Additional information is not available. Unable to obtain a complete ROS. PMH: as above PSH: R chest port SH: 1-3ppd x 45 years, "quit" drinking years ago, no illicits FH: noncontributory Meds: reviewed Allergies: Levofloxacin, nystatin Present on Admission - Present on Admission Any Indicators Present on Admission: No Review of Systems - Review of Systems Systems not reviewed;Unavailable: Other Review of Systems: Unable to obtain Past Patient History - Infectious Disease Hx of Infectious Diseases: None - Tetanus Immunizations Tetanus Immunization: Unknown - Past Medical History & Family History Past Medical History?: Yes - Past Social History Smoking Status: Heavy Smoker > 10 Cigarettes Daily - CARDIAC Hx Cardiac Disorders: Yes Hx Hypertension: Yes - PULMONARY Hx Bronchitis: Yes Hx Chronic Obstructive Pulmonary Disease (COPD): Yes Hx Emphysema: Yes - NEUROLOGICAL Hx Neurological Disorder: No - HEENT Hx HEENT Problems: Yes ([place] left ear) Hx Cataracts: Yes - RENAL Hx Chronic Kidney Disease: No (HYDRONEPHROSIS) Hx Kidney Stones: Yes - ENDOCRINE/METABOLIC Hx Diabetes Mellitus Type 2: Yes - HEMATOLOGICAL/ONCOLOGICAL Hx Blood Disorders: Yes Hx Cancer: Yes (breast cancer left dx 06/2015) Hx Chemotherapy: Yes - INTEGUMENTARY Hx Dermatological Problems: Yes Other/Comment: multiple age spots to back, small white areas of skin to left arm , ble skin discolorations, reddened buttock and hard red areas of skin to lower r and left buttock,multiple scabs and dry discolored skin areas to both arms, poor hygeine dirty toes and elbows - MUSCULOSKELETAL/RHEUMATOLOGICAL Hx Arthritis: Yes Hx Back Pain: Yes (chronic) Hx Falls: Yes (past falls) - GASTROINTESTINAL Hx Gastrointestinal Disorders: Yes (esophagitis/ pelvic mass) Hx Gastroesophageal Reflux: Yes - GENITOURINARY/GYNECOLOGICAL Hx Genitourinary Disorders: Yes Hx Urinary Tract Infection: Yes - PSYCHIATRIC Hx Psychophysiologic Disorder: Yes Hx Anxiety: Yes Hx Substance Use: No - SURGICAL HISTORY Other/Comment: left breast bx 07/01/15, umbilical hernia repair, c section x 2 extopic , excision of abd tumor, rcw pac, umbilical hernia repair - ANESTHESIA Hx Anesthesia Reactions: No Hx Malignant Hyperthermia: No Meds Allergies/Adverse Reactions: Allergies Allergy/AdvReac Type Severity Reaction Status Date / Time levofloxacin [From Levaquin] Allergy SHORTNESS Verified 01/30/17 02:04 OF BREATH;PARANOID nystatin Allergy SWELLING Verified 01/30/17 02:04 Physical Exam - Constitutional Additional comments: Obtunded - Head Exam Head Exam: ATRAUMATIC, NORMAL INSPECTION, NORMOCEPHALIC - Eye Exam Eye Exam: Normal appearance Pupil Exam: NORMAL ACCOMODATION, PERRL - ENT Exam ENT Exam: Mucous Membranes Moist - Neck Exam Neck exam: Positive for: Normal Inspection. Negative for: Tenderness - Respiratory Exam Respiratory Exam: Rhonchi, Wheezes - Cardiovascular Exam Cardiovascular Exam: Tachycardia, +S1, +S2. absent: Gallop, Rubs - GI/Abdominal Exam GI & Abdominal Exam: Soft. absent: Distended, Tenderness - Extremities Exam Extremities exam: Positive for: pedal pulses present. Negative for: pedal edema Additional comments: Signs of peripheral vascular disease on lower extremeties with skin changes - Neurological Exam Additional comments: intermittently awake, not alert, follow simple commands, opens eyes spontaneously , no verbal , GCS 10 - Skin Skin Exam: Dry, Warm Results - Vital Signs Recent Vital Signs: Last Vital Signs Temp 98.5 F 01/30/17 03:40 Pulse 109 H 01/30/17 03:55 Resp 14 01/30/17 03:55 BP 140/62 01/30/17 03:55 Pulse Ox 96 01/30/17 03:55 - Labs Result Diagrams: 01/30/17 02:30 01/30/17 02:30 Assessment & Plan - Assessment and Plan (Free Text) Assessment: 56 year old female with past medical history of COPD, asthma, on oxygen (3L), breast cancer (last chemotherapy treatment a year ago) and diabetes presents to the emergency department after falling out of bed. She will be monitored and treated for HCAP. Plan: 1. HCAP vs. Aspiration Pneumonia -admitted to ICU -Chest Xray showing right middle lobe infiltrate suggestive of Pneumonia, pending official read -ABG showing hypercapnic respiratory acidosis -ph 7.14, pC02: 65 -repeat blood gas in AM -Started on vacomycin and zosyn, no levaquin due to allergy -Duonebs q4H and Q2PRN -Aspiration precautions -fall precautions -seizure precautions -blood and urine culture pending -procalcitonin pending -UDS pending -NPO -BIPAP 2. Elevated BUN/Cr -Possible DAHLIA on CKD -BUN 45, Cr 2.2 -Normal Saline@100 -will continue to monitor renal function 3. Right Knee Pain -unclear if secondary to trauma -abnormal knee xray -Knee CT pending 4. DM -Placed on ISS medium ACHS DVT Prophylaxis -Lovenox SC Patient seen and case discussed in detail with attending
[2017-01-30 04:32] LABS: URINE BILIRUBIN NEGATIVE (NEGATIVE); URINE BLOOD LARGE (NEGATIVE); URINE GLUCOSE (UA) NEGATIVE (NEGATIVE); URINE KETONE NEGATIVE (NEGATIVE); URINE LEUKOCYTE ESTERASE SMALL Leu/uL (NEGATIVE); URINE PROTEIN 100 mg/dL (<30 mg/dL); URINE UROBILINOGEN 0.2 E.U./dL (<1 E.U./dL)
[2017-01-30 04:43] LABS: URINE APPEARANCE SL CLOUDY (CLEAR); URINE COLOR YELLOW (YELLOW)
[2017-01-30 04:48] LABS: URINE BACTERIA MOD (NEG); URINE WBC 25 - 30 /hpf (0-6)
--- NOTE | 2017-01-30 05:37 | CT ---
EXAM: CT Right Lower Extremity Without Intravenous Contrast, Knee EXAM DATE/TIME: 01/30/2017 3:43 AM CLINICAL HISTORY: 56 years old, female; Pain; Knee; Right; Additional info: R knee pain and swelling - R/O tibial platea FX TECHNIQUE: Axial computed tomography images of the right knee without intravenous contrast. All CT scans at this facility use one or more dose reduction techniques, viz.: automated exposure control; ma/kV adjustment per patient size (including targeted exams where dose is matched to indication; i.e. head); or iterative reconstruction technique. Coronal and sagittal reformatted images were created and reviewed. COMPARISON: Recent right knee radiographs. FINDINGS: BONES/JOINTS: Very small knee joint effusion. Mild patellar spurring. Bony structures appear demineralized. No acute fractures are seen. No evidence of acute dislocation. No evidence of a lipohemarthrosis. SOFT TISSUES: Subcutaneous edema, greatest laterally and posteriorly. No evidence of soft tissue hematoma. Note that the extremity soft tissues, such as the tendons, ligaments and menisci, are suboptimally evaluated by CT compared with MRI. IMPRESSION: - No acute fractures identified. - Very small knee joint effusion. - See above for remaining findings.
[2017-01-30] MEDS: Sodium Chloride 0.9% 1,000 ML IV SCH ×2 (05:47→15:13)
[2017-01-30 06:48] LABS: ARTERIAL BLOOD GAS HCO3 21.8 mmol/L (21-28); ARTERIAL BLOOD GAS O2 CAPACITY 15.7 mL/dl (16-24); ARTERIAL BLOOD GAS O2 CONTENT 15.1 ML/dl (15-23); ARTERIAL BLOOD HGB O2 SAT 92.7 % (95.0-98.0); CARBOXYHEMOGLOBIN 2.4 % (0.5-1.5); HHB 3.7 % (0-5); METHEMOGLOBIN 1.2 % (0.0-3.0)
[2017-01-30 06:53] LABS: ARTERIAL BLOOD GAS PH 7.09 (7.35-7.45)
[2017-01-30 08:03] LABS: ARTERIAL BLOOD GAS HCO3 21.7 mmol/L (21-28)
[2017-01-30 08:04] LABS: ARTERIAL BLOOD GAS PH 7.16 (7.35-7.45)
[2017-01-30] MEDS: Albuterol-Ipratrop 3 mg / 0.5 (3 ml) UD IH SCH ×4 (08:05→20:10)
[2017-01-30] MEDS: Insulin Reg-MEDIUM-Coverage SC SCH ×3 (08:10→16:58)
[2017-01-30] MEDS ORDERED: Naloxone 0.4 mg/ml Inj (Adult) IVP ONE (08:26)
--- NOTE | 2017-01-30 08:35 | RAD ---
HISTORY: PNA COMPARISON: 01/30/2017 FINDINGS: LUNGS: There is volume loss in the right lung with mediastinal shift to the right. There is an increasing infiltrate in the right upper lobe PLEURA: No significant pleural effusion identified, no pneumothorax apparent. CARDIOVASCULAR: Normal. OSSEOUS STRUCTURES: No significant abnormalities. VISUALIZED UPPER ABDOMEN: Normal. OTHER FINDINGS: None. IMPRESSION: There is volume loss in the right lung with mediastinal shift to the right. There is an increasing infiltrate in the right upper lobe
--- NOTE | 2017-01-30 08:59 | RAD ---
HISTORY: COMPARISON: [id number] TECHNIQUE: Chest PA and lateral FINDINGS: LINES AND TUBES: The right IJV line terminates in the SVC. LUNG AND PLEURA: There is low lung volume on the right and shift of mediastinal to the right. There is subsegmental atelectasis in the right lower lobe. Small right pleural effusion and fluid in the minor fissure. HEART AND MEDIASTINUM: The heart is not enlarged. The hilar and mediastinal contours are within normal limits. SKELETAL STRUCTURES: The bony structures are within normal limits for the patient's age. VISUALIZED UPPER ABDOMEN: Normal. OTHER FINDINGS: None. IMPRESSION: Small right pleural effusion and fluid in the minor fissure. Subsegmental atelectasis in the right lower lobe.
--- NOTE | 2017-01-30 09:35 | RAD ---
PROCEDURE: Right Knee Radiographs. HISTORY: fall; R knee pain COMPARISON: None. FINDINGS: BONES: There is no acute displaced fracture or bone destruction. Bone alignment is normal. There is periarticular bone demineralization. JOINTS: There is mild tricompartmental degenerative osteoarthrosis with reduced joint spaces, worse in the medial compartment. JOINT EFFUSION: None. OTHER FINDINGS: None. IMPRESSION: No acute fracture or dislocation.
[2017-01-30] MEDS ORDERED: methylPREDNISolone 40 GM in Sodium Chloride 0.9% 250 ML IV SCH (10:00)
[2017-01-30 10:25] LABS: ARTERIAL BLOOD GAS HCO3 20.9 mmol/L (21-28)
[2017-01-30 10:26] LABS: ARTERIAL BLOOD GAS PH 7.18 (7.35-7.45)
[2017-01-30] MEDS: Azithromycin 500MG/NS 250ml 500 MG/250 ML BAG IVPB SCH (10:26)
[2017-01-30] MEDS: Enoxaparin 30 mg Syringe SC SCH (10:27)
[2017-01-30] MEDS ORDERED: MethylPREDNISolone 40 mg Vial IVP ONE (10:39)
[2017-01-30] MEDS: Piperacillin/Tazobact 2.25gm 2.25 GM/100 ML BAG IVPB SCH ×2 (12:06→17:30)
--- NOTE | 2017-01-30 13:17 | CP.CCUPN ---
<MontanaiRki - Last Filed: 01/30/17 13:13> CCU Subjective - Physician Review Events Since Last Encounter (Free Text): 01/30/17 13:[address] Khan Pt seen and examined at bedside. Patient on BiPAP, somnolent this morning, however, easily arousable to tactile and verbal stimuli. Patient combative and annoyed with questioning. More awake after narcan. CCU Objective - Vital Signs / Intake & Output Intake and Output (Last 8hrs): Intake & Output 01/29/17 01/30/17 01/30/17 22:59 06:59 14:59 Intake Total 450 Output Total 900 Balance -450 Weight 164 lb 2 oz 164 lb 2 oz Intake: IV 200 Right Subclavian 200 Other 250 Output: Urine 800 Urethral (Ray) 800 Emesis 100 - Physical Exam Head: Positive for: Atraumatic, Normocephalic Pupils: Positive for: PERRL Extroacular Muscles: Positive for: EOMI Conjunctiva: Positive for: Normal Mouth: Positive for: Dry Pharnyx: Positive for: Normal. Negative for: ERYTHEMA, EXUDATE Neck: Positive for: Normal Range of Motion. Negative for: JVD Respiratory/Chest: Positive for: Decreased Breath Sounds, Rales (R side > L side ). Negative for: Respiratory Distress, Accessory Muscle Use Cardiovascular: Positive for: Regular Rate and Rhythm, Normal S1, S2. Negative for: Murmurs Abdomen: Positive for: Normal Bowel Sounds. Negative for: Tenderness, Distention, Peritoneal Signs Back: Positive for: Normal Inspection Upper Extremity: Positive for: Normal Inspection. Negative for: Cyanosis, Edema Lower Extremity: Positive for: Swelling (Right knee on the medial side with mild ecchymosis) Neurological: Positive for: GCS=15, CN II-XII Intact, Speech Normal, Other ( patient somnolent but easily arousable. ) Skin: Positive for: Warm, Dry, Normal Color. Negative for: Rashes Psychiatric: Positive for: Lethargic - Medications Active Medications: Active Medications Generic Name Dose Route Start Last Admin Trade Name Freq PRN Reason Stop Dose Admin Albuterol/Ipratropium 3 ml 01/30/17 07:30 01/30/17 11:31 Duoneb 3 Mg/0.5 Mg (3 Ml) Ud IH 3 ml [id number] LUCIANO Administration Albuterol/Ipratropium 3 ml 01/30/17 04:07 Duoneb 3 Mg/0.5 Mg (3 Ml) Ud IH Q2H PRN Shortness of Breath Enoxaparin Sodium 30 mg 01/30/17 10:00 01/30/17 10:27 Lovenox SC 30 mg DAILY LUCIANO Administration Protocol Vancomycin HCl 1 gm in 250 mls @ 167 mls/hr 01/31/17 10:00 Vancomycin 1gm IVPB DAILY LUCIANO Protocol Piperacillin Sod/Tazobactam Sod 2.25 gm in 100 mls @ 200 mls/hr 01/30/17 12: 00 01/30/17 12:06 Zosyn 2.25 Gm In 0.9% 100 Ml IVPB 01/30/17 18:29 200 mls/hr Q6 LUCIANO Administration Protocol Sodium Chloride 1,000 mls @ 100 mls/hr 01/30/17 04:45 01/30/17 05:47 Sodium Chloride 0.9% IV 100 mls/hr .Q10H LUCIANO Administration Azithromycin 500 mg in 250 mls @ 167 mls/hr 01/30/17 10:00 01/30/17 10:26 Zithromax 500mg In Ns IVPB 167 mls/hr DAILY LUCIANO Administration Protocol Insulin Human Regular 0 units 01/30/17 07:30 01/30/17 12:01 Humulin R Med SC Not Given ACHS LUCIANO Protocol Methylprednisolone 40 mg 01/30/17 14:00 Solu-Medrol IVP Q8 LUCIANO Ondansetron HCl 4 mg 01/30/17 05:45 Zofran Inj IVP Q6H PRN Nausea/Vomiting Pantoprazole Sodium 40 mg 01/30/17 10:00 01/30/17 10:26 Protonix Inj IVP 40 mg DAILY LUCIANO Administration - Patient Studies Lab Studies: Lab Studies 01/30/17 01/30/17 01/30/17 Range/Units 10:22 08:00 06:30 pCO2 56 H 61 H 72 H* (35-45) mm/Hg pO2 66.0 L 54.0 L 74.0 L (80-100) mm/Hg HCO3 20.9 L 21.7 21.8 (21-28) mmol/L ABG pH 7.18 L* 7.16 L* 7.09 L* (7.35-7.45) ABG Total CO2 22.6 23.6 24.0 (22-28) mmol.L ABG O2 Saturation 95.9 92.6 L 96.2 (95-98) % ABG O2 Content 15.1 (15-23) ML/dl ABG Base Excess -8.0 L -7.8 L -8.8 L (-2.0-3.0) mmol/L ABG Hemoglobin 11.5 L (11.7-17.4) g/dL ABG Carboxyhemoglobin 2.4 H (0.5-1.5) % POC ABG HHb (Measured) 3.7 (0-5) % ABG Methemoglobin 1.2 (0.0-3.0) % ABG O2 Capacity 15.7 L (16-24) mL/dl ABG Potassium 4.1 4.5 (3.6-5.2) mmol/L Hgb O2 Saturation 92.7 L (95.0-98.0) % Sodium 145.0 144.0 (132-148) mmol/L Chloride 119.0 H 116.0 H (98-107) mmol/L Glucose 193 H 183 H (65-105) mg/dl Lactate 0.5 L 0.4 L (0.7-2.1) mmol/L FiO2 30.0 30.0 35.0 % Inspiratory BiPAP 18 18 Arterial Blood Potassium 4.1 4.5 (3.6-5.2) mmol/L Urine Color (YELLOW) Urine Appearance (CLEAR) Urine pH (4.7-8.0) Ur Specific [place] (1.005-1.035) Urine Protein (<30 mg/dL) mg/dL Urine Glucose (UA) (NEGATIVE) mg/dL Urine Ketones (NEGATIVE) mg/dL Urine Blood (NEGATIVE) Urine Nitrate (NEGATIVE) Urine Bilirubin (NEGATIVE) Urine Urobilinogen (<1 E.U./dL) E.U./dL Ur Leukocyte Esterase (NEGATIVE) [place]/uL Urine RBC (0-2) /hpf Urine WBC (0-6) /hpf Ur Epithelial Cells (0-5) /hpf Urine Bacteria (NEG) Urine Opiates Screen (NEGATIVE) Urine Methadone Screen (NEGATIVE) Ur Barbiturates Screen (NEGATIVE) Ur Phencyclidine Scrn (NEGATIVE) Ur Amphetamines Screen (NEGATIVE) U Benzodiazepines Scrn (NEGATIVE) U Oth Cocaine Metabols (NEGATIVE) U Cannabinoids Screen (NEGATIVE) 01/30/17 01/30/17 Range/Units 04:15 04:15 pCO2 (35-45) mm/Hg pO2 (80-100) mm/Hg HCO3 (21-28) mmol/L ABG pH (7.35-7.45) ABG Total CO2 (22-28) mmol.L ABG O2 Saturation (95-98) % ABG O2 Content (15-23) ML/dl ABG Base Excess (-2.0-3.0) mmol/L ABG Hemoglobin (11.7-17.4) g/dL ABG Carboxyhemoglobin (0.5-1.5) % POC ABG HHb (Measured) (0-5) % ABG Methemoglobin (0.0-3.0) % ABG O2 Capacity (16-24) mL/dl ABG Potassium (3.6-5.2) mmol/L Hgb O2 Saturation (95.0-98.0) % Sodium (132-148) mmol/L Chloride (98-107) mmol/L Glucose (65-105) mg/dl Lactate (0.7-2.1) mmol/L FiO2 % Inspiratory BiPAP Arterial Blood Potassium (3.6-5.2) mmol/L Urine Color Yellow (YELLOW) Urine Appearance Sl cloudy (CLEAR) Urine pH 6.0 (4.7-8.0) Ur Specific [place] 1.025 (1.005-1.035) Urine Protein 100 H (<30 mg/dL) mg/dL Urine Glucose (UA) Negative (NEGATIVE) mg/dL Urine Ketones Negative (NEGATIVE) mg/dL Urine Blood Large H (NEGATIVE) Urine Nitrate Negative (NEGATIVE) Urine Bilirubin Negative (NEGATIVE) Urine Urobilinogen 0.2 (<1 E.U./dL) E.U./dL Ur Leukocyte Esterase Small H (NEGATIVE) [place]/uL Urine RBC 10 - 15 (0-2) /hpf Urine WBC 25 - 30 (0-6) /hpf Ur Epithelial Cells 1 - 3 (0-5) /hpf Urine Bacteria Mod (NEG) Urine Opiates Screen Positive H (NEGATIVE) Urine Methadone Screen Negative (NEGATIVE) Ur Barbiturates Screen Negative (NEGATIVE) Ur Phencyclidine Scrn Negative (NEGATIVE) Ur Amphetamines Screen Negative (NEGATIVE) U Benzodiazepines Scrn Positive H (NEGATIVE) U Oth Cocaine Metabols Negative (NEGATIVE) U Cannabinoids Screen Negative (NEGATIVE) Laboratory Results - last 24 hr 01/30/17 01/30/17 01/30/17 04:15 04:15 06:30 pCO2 72 H* pO2 74.0 L HCO3 21.8 ABG pH 7.09 L* ABG Total CO2 24.0 ABG O2 Saturation 96.2 ABG O2 Content 15.1 ABG Base Excess -8.8 L ABG Hemoglobin 11.5 L ABG Carboxyhemoglobin 2.4 H POC ABG HHb (Measured) 3.7 ABG Methemoglobin 1.2 ABG O2 Capacity 15.7 L ABG Potassium Hgb O2 Saturation 92.7 L Sodium Chloride Glucose Lactate FiO2 35.0 Inspiratory BiPAP Arterial Blood Potassium Urine Color Yellow Urine Appearance Sl cloudy Urine pH 6.0 Ur Specific [place] 1.025 Urine Protein 100 H Urine Glucose (UA) Negative Urine Ketones Negative Urine Blood Large H Urine Nitrate Negative Urine Bilirubin Negative Urine Urobilinogen 0.2 Ur Leukocyte Esterase Small H Urine RBC 10 - 15 Urine WBC 25 - 30 Ur Epithelial Cells 1 - 3 Urine Bacteria Mod Urine Opiates Screen Positive H Urine Methadone Screen Negative Ur Barbiturates Screen Negative Ur Phencyclidine Scrn Negative Ur Amphetamines Screen Negative U Benzodiazepines Scrn Positive H U Oth Cocaine Metabols Negative U Cannabinoids Screen Negative 01/30/17 01/30/17 08:00 10:22 pCO2 61 H 56 H pO2 54.0 L 66.0 L HCO3 21.7 20.9 L ABG pH 7.16 L* 7.18 L* ABG Total CO2 23.6 22.6 ABG O2 Saturation 92.6 L 95.9 ABG O2 Content ABG Base Excess -7.8 L -8.0 L ABG Hemoglobin ABG Carboxyhemoglobin POC ABG HHb (Measured) ABG Methemoglobin ABG O2 Capacity ABG Potassium 4.5 4.1 Hgb O2 Saturation Sodium 144.0 145.0 Chloride 116.0 H 119.0 H Glucose 183 H 193 H Lactate 0.4 L 0.5 L FiO2 30.0 30.0 Inspiratory BiPAP 18 18 Arterial Blood Potassium 4.5 4.1 Urine Color Urine Appearance Urine pH Ur Specific [place] Urine Protein Urine Glucose (UA) Urine Ketones Urine Blood Urine Nitrate Urine Bilirubin Urine Urobilinogen Ur Leukocyte Esterase Urine RBC Urine WBC Ur Epithelial Cells Urine Bacteria Urine Opiates Screen Urine Methadone Screen Ur Barbiturates Screen Ur Phencyclidine Scrn Ur Amphetamines Screen U Benzodiazepines Scrn U Oth Cocaine Metabols U Cannabinoids Screen Fingerstick Blood Sugar Results: 192 Assessment/Plan - Assessment and Plan (Free Text) Assessment: 56yo F with PMHx of COPD, Asthma, Breast CA (last chemo 1yr ago), DM here for eval after falling out of her bed and AMS as per son. Possible overdose on opiates and xanax. She is found to have resp acidosis, on BiPAP currently. Resp status improving. CXR with evidence of poss PNA. Acute on Chronic kidney disease noted (baseline creat 1.5). Neuro: Somnolent. Easily arousable. Alert, oriented x3 and responsive. Answers questions appropriately, does not require intubation at this time Narcan doses x2 given this AM Cardiac: normotensive Tachycardic continue to monitor Pulm: Hx of COPD, Asthma on BiPAP, resp and metabolic acidosis noted on ABG. Improving patient is alert, responsive and does not need intubation at this time. CXR - evidence of small right pleural effusion and fluid in fissure. subsegmental atelectasis right lower on Abx: Azithromycin, Vanc, Zosyn Solumedrol 40mg q8 GI: heart healthy diet Protonix aspiration precautions Renal/Electrolytes: DAHLIA noted Continue NS @100 continue to monitor ID: ID team following, appreciate recs f/u urine legionella f/u urine strep Extremities: Right knee pain in the setting of fall out of bed Knee X-ray - R knee with no evidence of acute fracture R knee CT - R knee small effusion. no acute fractures PPx: Protonix Enoxaparin SCDs Discussed case with Dr. Bill Boyle PGY1 <Dusty Khan - Last Filed: 01/30/17 13:52> CCU Objective - Vital Signs / Intake & Output Intake and Output (Last 8hrs): Intake & Output 01/29/17 01/30/17 01/30/17 22:59 06:59 14:59 Intake Total 450 Output Total 900 Balance -450 Weight 164 lb 2 oz 164 lb 2 oz Intake: IV 200 Right Subclavian 200 Other 250 Output: Urine 800 Urethral (Ray) 800 Emesis 100 - Medications Active Medications: Active Medications Generic Name Dose Route Start Last Admin Trade Name Freq PRN Reason Stop Dose Admin Albuterol/Ipratropium 3 ml 01/30/17 07:30 01/30/17 11:31 Duoneb 3 Mg/0.5 Mg (3 Ml) Ud IH 3 ml [id number] LUCIANO Administration Albuterol/Ipratropium 3 ml 01/30/17 04:07 Duoneb 3 Mg/0.5 Mg (3 Ml) Ud IH Q2H PRN Shortness of Breath Enoxaparin Sodium 30 mg 01/30/17 10:00 01/30/17 10:27 Lovenox SC 30 mg DAILY LUCIANO Administration Protocol Vancomycin HCl 1 gm in 250 mls @ 167 mls/hr 01/31/17 10:00 Vancomycin 1gm IVPB DAILY LUCIANO Protocol Piperacillin Sod/Tazobactam Sod 2.25 gm in 100 mls @ 200 mls/hr 01/30/17 12: 00 01/30/17 12:06 Zosyn 2.25 Gm In 0.9% 100 Ml IVPB 01/30/17 18:29 200 mls/hr Q6 LUCIANO Administration Protocol Sodium Chloride 1,000 mls @ 100 mls/hr 01/30/17 04:45 01/30/17 05:47 Sodium Chloride 0.9% IV 100 mls/hr .Q10H LUCIANO Administration Azithromycin 500 mg in 250 mls @ 167 mls/hr 01/30/17 10:00 01/30/17 10:26 Zithromax 500mg In Ns IVPB 167 mls/hr DAILY LUCIANO Administration Protocol Insulin Human Regular 0 units 01/30/17 07:30 01/30/17 12:01 Humulin R Med SC Not Given ACHS LUCIANO Protocol Methylprednisolone 40 mg 01/30/17 14:00 Solu-Medrol IVP Q8 LUCIANO Ondansetron HCl 4 mg 01/30/17 05:45 Zofran Inj IVP Q6H PRN Nausea/Vomiting Pantoprazole Sodium 40 mg 01/30/17 10:00 01/30/17 10:26 Protonix Inj IVP 40 mg DAILY LUCIANO Administration - Patient Studies Lab Studies: Lab Studies 01/30/17 01/30/17 01/30/17 Range/Units 10:22 08:00 06:30 pCO2 56 H 61 H 72 H* (35-45) mm/Hg pO2 66.0 L 54.0 L 74.0 L (80-100) mm/Hg HCO3 20.9 L 21.7 21.8 (21-28) mmol/L ABG pH 7.18 L* 7.16 L* 7.09 L* (7.35-7.45) ABG Total CO2 22.6 23.6 24.0 (22-28) mmol.L ABG O2 Saturation 95.9 92.6 L 96.2 (95-98) % ABG O2 Content 15.1 (15-23) ML/dl ABG Base Excess -8.0 L -7.8 L -8.8 L (-2.0-3.0) mmol/L ABG Hemoglobin 11.5 L (11.7-17.4) g/dL ABG Carboxyhemoglobin 2.4 H (0.5-1.5) % POC ABG HHb (Measured) 3.7 (0-5) % ABG Methemoglobin 1.2 (0.0-3.0) % ABG O2 Capacity 15.7 L (16-24) mL/dl ABG Potassium 4.1 4.5 (3.6-5.2) mmol/L Hgb O2 Saturation 92.7 L (95.0-98.0) % Sodium 145.0 144.0 (132-148) mmol/L Chloride 119.0 H 116.0 H (98-107) mmol/L Glucose 193 H 183 H (65-105) mg/dl Lactate 0.5 L 0.4 L (0.7-2.1) mmol/L FiO2 30.0 30.0 35.0 % Inspiratory BiPAP 18 18 Arterial Blood Potassium 4.1 4.5 (3.6-5.2) mmol/L Urine Color (YELLOW) Urine Appearance (CLEAR) Urine pH (4.7-8.0) Ur Specific [place] (1.005-1.035) Urine Protein (<30 mg/dL) mg/dL Urine Glucose (UA) (NEGATIVE) mg/dL Urine Ketones (NEGATIVE) mg/dL Urine Blood (NEGATIVE) Urine Nitrate (NEGATIVE) Urine Bilirubin (NEGATIVE) Urine Urobilinogen (<1 E.U./dL) E.U./dL Ur Leukocyte Esterase (NEGATIVE) [place]/uL Urine RBC (0-2) /hpf Urine WBC (0-6) /hpf Ur Epithelial Cells (0-5) /hpf Urine Bacteria (NEG) Urine Opiates Screen (NEGATIVE) Urine Methadone Screen (NEGATIVE) Ur Barbiturates Screen (NEGATIVE) Ur Phencyclidine Scrn (NEGATIVE) Ur Amphetamines Screen (NEGATIVE) U Benzodiazepines Scrn (NEGATIVE) U Oth Cocaine Metabols (NEGATIVE) U Cannabinoids Screen (NEGATIVE) 01/30/17 01/30/17 Range/Units 04:15 04:15 pCO2 (35-45) mm/Hg pO2 (80-100) mm/Hg HCO3 (21-28) mmol/L ABG pH (7.35-7.45) ABG Total CO2 (22-28) mmol.L ABG O2 Saturation (95-98) % ABG O2 Content (15-23) ML/dl ABG Base Excess (-2.0-3.0) mmol/L ABG Hemoglobin (11.7-17.4) g/dL ABG Carboxyhemoglobin (0.5-1.5) % POC ABG HHb (Measured) (0-5) % ABG Methemoglobin (0.0-3.0) % ABG O2 Capacity (16-24) mL/dl ABG Potassium (3.6-5.2) mmol/L Hgb O2 Saturation (95.0-98.0) % Sodium (132-148) mmol/L Chloride (98-107) mmol/L Glucose (65-105) mg/dl Lactate (0.7-2.1) mmol/L FiO2 % Inspiratory BiPAP Arterial Blood Potassium (3.6-5.2) mmol/L Urine Color Yellow (YELLOW) Urine Appearance Sl cloudy (CLEAR) Urine pH 6.0 (4.7-8.0) Ur Specific [place] 1.025 (1.005-1.035) Urine Protein 100 H (<30 mg/dL) mg/dL Urine Glucose (UA) Negative (NEGATIVE) mg/dL Urine Ketones Negative (NEGATIVE) mg/dL Urine Blood Large H (NEGATIVE) Urine Nitrate Negative (NEGATIVE) Urine Bilirubin Negative (NEGATIVE) Urine Urobilinogen 0.2 (<1 E.U./dL) E.U./dL Ur Leukocyte Esterase Small H (NEGATIVE) [place]/uL Urine RBC 10 - 15 (0-2) /hpf Urine WBC 25 - 30 (0-6) /hpf Ur Epithelial Cells 1 - 3 (0-5) /hpf Urine Bacteria Mod (NEG) Urine Opiates Screen Positive H (NEGATIVE) Urine Methadone Screen Negative (NEGATIVE) Ur Barbiturates Screen Negative (NEGATIVE) Ur Phencyclidine Scrn Negative (NEGATIVE) Ur Amphetamines Screen Negative (NEGATIVE) U Benzodiazepines Scrn Positive H (NEGATIVE) U Oth Cocaine Metabols Negative (NEGATIVE) U Cannabinoids Screen Negative (NEGATIVE) Laboratory Results - last 24 hr 01/30/17 01/30/17 01/30/17 04:15 04:15 06:30 pCO2 72 H* pO2 74.0 L HCO3 21.8 ABG pH 7.09 L* ABG Total CO2 24.0 ABG O2 Saturation 96.2 ABG O2 Content 15.1 ABG Base Excess -8.8 L ABG Hemoglobin 11.5 L ABG Carboxyhemoglobin 2.4 H POC ABG HHb (Measured) 3.7 ABG Methemoglobin 1.2 ABG O2 Capacity 15.7 L ABG Potassium Hgb O2 Saturation 92.7 L Sodium Chloride Glucose Lactate FiO2 35.0 Inspiratory BiPAP Arterial Blood Potassium Urine Color Yellow Urine Appearance Sl cloudy Urine pH 6.0 Ur Specific [place] 1.025 Urine Protein 100 H Urine Glucose (UA) Negative Urine Ketones Negative Urine Blood Large H Urine Nitrate Negative Urine Bilirubin Negative Urine Urobilinogen 0.2 Ur Leukocyte Esterase Small H Urine RBC 10 - 15 Urine WBC 25 - 30 Ur Epithelial Cells 1 - 3 Urine Bacteria Mod Urine Opiates Screen Positive H Urine Methadone Screen Negative Ur Barbiturates Screen Negative Ur Phencyclidine Scrn Negative Ur Amphetamines Screen Negative U Benzodiazepines Scrn Positive H U Oth Cocaine Metabols Negative U Cannabinoids Screen Negative 01/30/17 01/30/17 08:00 10:22 pCO2 61 H 56 H pO2 54.0 L 66.0 L HCO3 21.7 20.9 L ABG pH 7.16 L* 7.18 L* ABG Total CO2 23.6 22.6 ABG O2 Saturation 92.6 L 95.9 ABG O2 Content ABG Base Excess -7.8 L -8.0 L ABG Hemoglobin ABG Carboxyhemoglobin POC ABG HHb (Measured) ABG Methemoglobin ABG O2 Capacity ABG Potassium 4.5 4.1 Hgb O2 Saturation Sodium 144.0 145.0 Chloride 116.0 H 119.0 H Glucose 183 H 193 H Lactate 0.4 L 0.5 L FiO2 30.0 30.0 Inspiratory BiPAP 18 18 Arterial Blood Potassium 4.5 4.1 Urine Color Urine Appearance Urine pH Ur Specific [place] Urine Protein Urine Glucose (UA) Urine Ketones Urine Blood Urine Nitrate Urine Bilirubin Urine Urobilinogen Ur Leukocyte Esterase Urine RBC Urine WBC Ur Epithelial Cells Urine Bacteria Urine Opiates Screen Urine Methadone Screen Ur Barbiturates Screen Ur Phencyclidine Scrn Ur Amphetamines Screen U Benzodiazepines Scrn U Oth Cocaine Metabols U Cannabinoids Screen Critical Care Progress Note - Nutrition Nutrition: Nutrition Category Date Time Status Heart Healthy Diet [DIET] Diets 01/30/17 Dinner Ordered Assessment/Plan - Assessment and Plan (Free Text) Assessment: Patient seen and examined, with resident on rounds, agree with note, with following additions/exceptions: patient is 56yo female PMhx of active smoker 1-3pks per day, COPD/Asthma, Breast Ca, a/w hypercapnia and PNA. Pt supposedly took morphine pills for pain. Currently awake, alert, NAD, follows simple commands, active conversation, reporting she wants to go home. ABGs with CO2 retention improvement, on BIPAP 18 /10/30%, good oxygenation. CCXR with RML/RLL infiltrate, on antibiotics. Given Narcan 0.4mg x 1, with good response. Hypercapnia PNA COPD Recommend: - cont with BIPAP as tolerated, does not require intubation at this time, as she is awake, alert, conversive, HD stable, o2 sat 99% - IV steroids - IV Abx, Vanco, Zosyn, Azithro - check Urine Legionella, Strep - follow up cultures - IVF hydration - monitor resp status closely - BP control - GI ppx - DVT ppx - Monitor in MICU critical care time 35 minutes
[2017-01-30] MEDS: MethylPREDNISolone 40 mg Vial IVP SCH ×2 (15:16→22:08)
--- NOTE | 2017-01-30 23:25 | CARD ---
APPROVED REPORT EKG Measurement Heart [id number] <Conclusion> Sinus tachycardia Otherwise normal ECG
[2017-01-31] MEDS: Albuterol-Ipratrop 3 mg / 0.5 (3 ml) UD IH SCH ×6 (00:10→20:13)
[2017-01-31] MEDS: Sodium Chloride 0.9% 1,000 ML IV SCH (00:25)
[2017-01-31] MEDS: Insulin Reg-MEDIUM-Coverage SC SCH ×5 (00:41→21:53)
[2017-01-31] MEDS: MethylPREDNISolone 40 mg Vial IVP SCH ×2 (06:26→13:11)
[2017-01-31 06:51] LABS: RED CELL DISTRIBUTION WIDTH 14.2 % (11.5-14.5)
[2017-01-31 06:58] LABS: ALB/GLOB RATIO 1.1 (1.1-1.8); CALCIUM 8.1 mg/dL (8.4-10.5); MAGNESIUM 1.8 mg/dL (1.7-2.2); POTASSIUM 4.6 mmol/L (3.6-5.0); TOTAL PROTEIN 5.9 g/dL (5.8-8.3)
[2017-01-31 07:24] LABS: BILIRUBIN,TOTAL 0.5 mg/dL (0.2-1.3)
[2017-01-31 07:57] LABS: GRAN # 3.87 (1.4-6.5); GRAN % 82.6 % (50.0-68.0); HEMATOCRIT 32.8 % (36.0-48.0); LYMPH # 0.6 (1.2-3.4); LYMPH % 11.8 % (22.0-35.0); MEAN CELL VOLUME 91.9 fl (80.0-105.0); MEAN CORPUSCULAR HEMOGLOBIN 28.9 pg (25.0-35.0); MEAN CORPUSCULAR HGB CONC 31.4 g/dl (31.0-37.0); MEAN PLATELET VOLUME 9.5 fl (7.0-11.0); MONO # 0.3 (0.1-0.6); MONO % 5.6 % (1.0-6.0)
[2017-01-31 07:58] LABS: WHITE BLOOD COUNT 4.7 10^3/ul (4.5-11.0)
[2017-01-31] MEDS ORDERED: Oxycodone/Acetaminophen 5/325 mg Tab PO ONE (08:51)
[2017-01-31] MEDS: guaiFENesin-DM 600-30 mg ER Tab PO SCH ×2 (09:11→17:00)
[2017-01-31] MEDS: Enoxaparin 30 mg Syringe SC SCH (09:17)
[2017-01-31] MEDS: Azithromycin 500MG/NS 250ml 500 MG/250 ML BAG IVPB SCH (09:19)
[2017-01-31] MEDS ORDERED: Vancomycin 1gm in NS 250ml 1 GM/250 ML BAG IVPB SCH (10:00)
--- NOTE | 2017-01-31 12:23 | CP.CCUPN ---
<Julio César Damico - Last Filed: 01/31/17 12:20> CCU Subjective - Physician Review Subjective (Free Text): 01/31/17 12:20 Julio César Damico D.O. PGY-3, Critical Care Progress Note 56 year old female with past medical history of COPD, asthma, breast cancer s/p chemotherapy a year ago, and diabetes who presented after falling out of bed and for altered mental status with suspected overdose. Patient was seen and examined at bedside. Patient is significantly better today, more awake and able to follow on a full conversation. Patient had no acute overnight events. Patient denies any complaints at this time. Patient does not recall whether she may have taken a few too many pills the night she arrived. CCU Objective - Vital Signs / Intake & Output Vital Signs (Last 4 hours): Vital Signs Temp Pulse Resp BP Pulse Ox 01/31/17 12:07 98.7 F 01/31/17 12:03 100 H 18 01/31/17 12:02 100 H 21 01/31/17 12:01 98 H 01/31/17 12:00 100 H 30 H 01/31/17 11:59 100 H 15 01/31/17 11:58 102 H 01/31/17 11:57 105 H 10 L 01/31/17 11:56 104 H 18 01/31/17 11:55 101 H 23 01/31/17 11:54 100 H 16 01/31/17 11:53 100 H 14 01/31/17 11:52 99 H 01/31/17 11:51 101 H 17 01/31/17 11:50 101 H 01/31/17 11:49 102 H 01/31/17 11:48 100 H 14 01/31/17 11:47 100 H 16 01/31/17 11:46 101 H 14 01/31/17 11:45 101 H 16 01/31/17 11:44 103 H 18 01/31/17 11:43 104 H 18 01/31/17 11:42 106 H 17 01/31/17 11:41 107 H 16 01/31/17 11:40 109 H 23 90 L 01/31/17 11:30 101 H 22 99 01/31/17 11:20 102 H 100 01/31/17 11:10 107 H 11 L 98 01/31/17 11:00 104 H 120 H 98 01/31/17 10:51 107 H 11 L 116/57 L 99 01/31/17 10:50 108 H 99 01/31/17 10:40 109 H 15 98 01/31/17 10:30 109 H 24 99 01/31/17 10:21 116 H 95 01/31/17 10:10 115 H 98 01/31/17 10:00 114 H 22 97 01/31/17 09:51 120 H 17 139/58 L 98 01/31/17 09:50 118 H 19 100 01/31/17 09:40 117 H 16 100 01/31/17 09:30 118 H 12 99 01/31/17 09:20 119 H 21 97 01/31/17 09:10 120 H 20 95 01/31/17 09:00 117 H 17 100 01/31/17 08:59 115 H 01/31/17 08:51 119 H 18 125/56 L 98 01/31/17 08:50 120 H 97 01/31/17 08:40 123 H 17 97 01/31/17 08:30 119 H 28 H 92 L Intake and Output (Last 8hrs): Intake & Output 01/30/17 01/31/17 01/31/17 22:59 06:59 14:59 Intake Total 1650 800 Output Total 700 800 350 Balance 950 0 -350 Intake: IV 1650 800 Right Subclavian 1650 800 Output: Urine 700 800 350 Urethral (Ray) 700 800 350 Other: # Bowel Movements 0 - Physical Exam Head: Positive for: Atraumatic, Normocephalic Pupils: Positive for: PERRL Extroacular Muscles: Positive for: EOMI Conjunctiva: Positive for: Normal Mouth: Positive for: Moist Mucous Membranes Pharnyx: Positive for: Normal. Negative for: ERYTHEMA, EXUDATE Neck: Positive for: Normal Range of Motion. Negative for: JVD Respiratory/Chest: Positive for: Wheezes (mild), Decreased Breath Sounds. Negative for: Respiratory Distress, Accessory Muscle Use Cardiovascular: Positive for: Regular Rate and Rhythm, Normal S1, S2. Negative for: Murmurs Abdomen: Positive for: Normal Bowel Sounds. Negative for: Tenderness, Distention, Peritoneal Signs Upper Extremity: Positive for: Normal Inspection. Negative for: Cyanosis, Edema Neurological: Positive for: GCS=15, CN II-XII Intact, Speech Normal Skin: Positive for: Warm, Dry, Normal Color. Negative for: Rashes - Medications Active Medications: Active Medications Generic Name Dose Route Start Last Admin Trade Name Freq PRN Reason Stop Dose Admin Albuterol/Ipratropium 3 ml 01/30/17 07:30 01/31/17 11:53 Duoneb 3 Mg/0.5 Mg (3 Ml) Ud IH 3 ml [id number] LUCIANO Administration Albuterol/Ipratropium 3 ml 01/30/17 04:07 Duoneb 3 Mg/0.5 Mg (3 Ml) Ud IH Q2H PRN Shortness of Breath Enoxaparin Sodium 30 mg 01/30/17 10:00 01/31/17 09:17 Lovenox SC 30 mg DAILY LUCIANO Administration Protocol Guaifenesin/Dextromethorphan 1 tab 01/31/17 10:00 01/31/17 09:11 Mucinex-Dm 600-30 Mg PO 1 tab BID LUCIANO Administration Vancomycin HCl 1 gm in 250 mls @ 167 mls/hr 01/31/17 10:00 01/31/17 09:17 Vancomycin 1gm IVPB 167 mls/hr DAILY LUCIANO Administration Protocol Azithromycin 500 mg in 250 mls @ 167 mls/hr 01/30/17 10:00 01/31/17 09:19 Zithromax 500mg In Ns IVPB 167 mls/hr DAILY LUCIANO Administration Protocol Insulin Human Regular 0 units 01/30/17 07:30 01/31/17 11:36 Humulin R Med SC 7 units ACHS LUCIANO Administration Protocol Methylprednisolone 40 mg 01/30/17 14:00 01/31/17 06:26 Solu-Medrol IVP 40 mg Q8 LUCIANO Administration Ondansetron HCl 4 mg 01/30/17 05:45 Zofran Inj IVP Q6H PRN Nausea/Vomiting Pantoprazole Sodium 40 mg 01/30/17 10:00 01/31/17 09:14 Protonix Inj IVP 40 mg DAILY LUCIANO Administration - Patient Studies Lab Studies: Microbiology Studies 01/30/17 04:15 Urine Culture - Preliminary Urine,Clean Catch Gram Positive Cocci Lab Studies 01/31/17 01/31/17 01/31/17 Range/Units 11:32 07:19 06:00 WBC (4.5-11.0) 10^3/ul RBC (3.5-6.1) 10^6/uL Hgb (12.0-16.0) g/dL Hct (36.0-48.0) % MCV (80.0-105.0) fl MCH (25.0-35.0) pg MCHC (31.0-37.0) g/dl RDW (11.5-14.5) % Plt Count (120.0-450.0) 10^3/uL MPV (7.0-11.0) fl Gran % (50.0-68.0) % Lymph % (Auto) (22.0-35.0) % Louisa % (Auto) (1.0-6.0) % Eos % (Auto) (1.5-5.0) % Baso % (Auto) (0.0-3.0) % Gran # (1.4-6.5) Lymph # (1.2-3.4) Louisa # (0.1-0.6) Eos # (0.0-0.7) Baso # (0.0-2.0) K/mm3 Sodium 147 (132-148) mmol/L Potassium 4.6 (3.6-5.0) mmol/L Chloride 117 H (95-110) mmol/L Carbon Dioxide 24 (21-33) mmol/L Anion Gap 11 (10-20) BUN 42 H (7-21) mg/dL Creatinine 1.7 H (0.7-1.2) mg/dL Est GFR ( Amer) 37 Est GFR (Non-Af Amer) 31 POC Glucose (mg/dL) 357 H 207 H (65-110) mg/dL Random Glucose 197 H (70-110) mg/dL Calcium 8.1 L (8.4-10.5) mg/dL Phosphorus 4.0 (2.5-4.5) mg/dL Magnesium 1.8 (1.7-2.2) mg/dL Total Bilirubin 0.5 (0.2-1.3) mg/dL AST 17 (14-36) U/L ALT 31 (7-56) U/L Alkaline Phosphatase 64 (38-126) U/L Total Protein 5.9 (5.8-8.3) g/dL Albumin 3.1 (3.0-4.8) g/dL Globulin 2.8 gm/dL Albumin/Globulin Ratio 1.1 (1.1-1.8) Ur L.pneumophila Ag (NEGATIVE) 01/31/17 01/31/17 01/30/17 Range/Units 06:00 00:38 20:42 WBC 4.7 D (4.5-11.0) 10^3/ul RBC 3.57 (3.5-6.1) 10^6/uL Hgb 10.3 L (12.0-16.0) g/dL Hct 32.8 L (36.0-48.0) % MCV 91.9 (80.0-105.0) fl MCH 28.9 (25.0-35.0) pg MCHC 31.4 (31.0-37.0) g/dl RDW 14.2 (11.5-14.5) % Plt Count 236 (120.0-450.0) 10^3/uL MPV 9.5 (7.0-11.0) fl Gran % 82.6 H (50.0-68.0) % Lymph % (Auto) 11.8 L (22.0-35.0) % Louisa % (Auto) 5.6 (1.0-6.0) % Eos % (Auto) 0.0 L (1.5-5.0) % Baso % (Auto) 0.0 (0.0-3.0) % Gran # 3.87 (1.4-6.5) Lymph # 0.6 L (1.2-3.4) Louisa # 0.3 (0.1-0.6) Eos # 0.0 (0.0-0.7) Baso # 0.00 (0.0-2.0) K/mm3 Sodium (132-148) mmol/L Potassium (3.6-5.0) mmol/L Chloride (95-110) mmol/L Carbon Dioxide (21-33) mmol/L Anion Gap (10-20) BUN (7-21) mg/dL Creatinine (0.7-1.2) mg/dL Est GFR ( Amer) Est GFR (Non-Af Amer) POC Glucose (mg/dL) 204 H 274 H (65-110) mg/dL Random Glucose (70-110) mg/dL Calcium (8.4-10.5) mg/dL Phosphorus (2.5-4.5) mg/dL Magnesium (1.7-2.2) mg/dL Total Bilirubin (0.2-1.3) mg/dL AST (14-36) U/L ALT (7-56) U/L Alkaline Phosphatase (38-126) U/L Total Protein (5.8-8.3) g/dL Albumin (3.0-4.8) g/dL Globulin gm/dL Albumin/Globulin Ratio (1.1-1.8) Ur L.pneumophila Ag (NEGATIVE) 01/30/17 01/30/17 01/30/17 Range/Units 15:58 11:18 11:10 WBC (4.5-11.0) 10^3/ul RBC (3.5-6.1) 10^6/uL Hgb (12.0-16.0) g/dL Hct (36.0-48.0) % MCV (80.0-105.0) fl MCH (25.0-35.0) pg MCHC (31.0-37.0) g/dl RDW (11.5-14.5) % Plt Count (120.0-450.0) 10^3/uL MPV (7.0-11.0) fl Gran % (50.0-68.0) % Lymph % (Auto) (22.0-35.0) % Louisa % (Auto) (1.0-6.0) % Eos % (Auto) (1.5-5.0) % Baso % (Auto) (0.0-3.0) % Gran # (1.4-6.5) Lymph # (1.2-3.4) Louisa # (0.1-0.6) Eos # (0.0-0.7) Baso # (0.0-2.0) K/mm3 Sodium (132-148) mmol/L Potassium (3.6-5.0) mmol/L Chloride (95-110) mmol/L Carbon Dioxide (21-33) mmol/L Anion Gap (10-20) BUN (7-21) mg/dL Creatinine (0.7-1.2) mg/dL Est GFR ( Amer) Est GFR (Non-Af Amer) POC Glucose (mg/dL) 213 H 192 H (65-110) mg/dL Random Glucose (70-110) mg/dL Calcium (8.4-10.5) mg/dL Phosphorus (2.5-4.5) mg/dL Magnesium (1.7-2.2) mg/dL Total Bilirubin (0.2-1.3) mg/dL AST (14-36) U/L ALT (7-56) U/L Alkaline Phosphatase (38-126) U/L Total Protein (5.8-8.3) g/dL Albumin (3.0-4.8) g/dL Globulin gm/dL Albumin/Globulin Ratio (1.1-1.8) Ur L.pneumophila Ag Negative (NEGATIVE) 01/30/17 Range/Units 07:45 WBC (4.5-11.0) 10^3/ul RBC (3.5-6.1) 10^6/uL Hgb (12.0-16.0) g/dL Hct (36.0-48.0) % MCV (80.0-105.0) fl MCH (25.0-35.0) pg MCHC (31.0-37.0) g/dl RDW (11.5-14.5) % Plt Count (120.0-450.0) 10^3/uL MPV (7.0-11.0) fl Gran % (50.0-68.0) % Lymph % (Auto) (22.0-35.0) % Louisa % (Auto) (1.0-6.0) % Eos % (Auto) (1.5-5.0) % Baso % (Auto) (0.0-3.0) % Gran # (1.4-6.5) Lymph # (1.2-3.4) Louisa # (0.1-0.6) Eos # (0.0-0.7) Baso # (0.0-2.0) K/mm3 Sodium (132-148) mmol/L Potassium (3.6-5.0) mmol/L Chloride (95-110) mmol/L Carbon Dioxide (21-33) mmol/L Anion Gap (10-20) BUN (7-21) mg/dL Creatinine (0.7-1.2) mg/dL Est GFR ( Amer) Est GFR (Non-Af Amer) POC Glucose (mg/dL) 170 H (65-110) mg/dL Random Glucose (70-110) mg/dL Calcium (8.4-10.5) mg/dL Phosphorus (2.5-4.5) mg/dL Magnesium (1.7-2.2) mg/dL Total Bilirubin (0.2-1.3) mg/dL AST (14-36) U/L ALT (7-56) U/L Alkaline Phosphatase (38-126) U/L Total Protein (5.8-8.3) g/dL Albumin (3.0-4.8) g/dL Globulin gm/dL Albumin/Globulin Ratio (1.1-1.8) Ur L.pneumophila Ag (NEGATIVE) Laboratory Results - last 24 hr 01/30/17 01/30/17 01/30/17 07:45 11:10 11:18 WBC RBC Hgb Hct MCV MCH MCHC RDW Plt Count MPV Gran % Lymph % (Auto) Louisa % (Auto) Eos % (Auto) Baso % (Auto) Gran # Lymph # Louisa # Eos # Baso # Sodium Potassium Chloride Carbon Dioxide Anion Gap BUN Creatinine Est GFR ( Amer) Est GFR (Non-Af Amer) POC Glucose (mg/dL) 170 H 192 H Random Glucose Calcium Phosphorus Magnesium Total Bilirubin AST ALT Alkaline Phosphatase Total Protein Albumin Globulin Albumin/Globulin Ratio Ur L.pneumophila Ag Negative 01/30/17 01/30/17 01/31/17 15:58 20:42 00:38 WBC RBC Hgb Hct MCV MCH MCHC RDW Plt Count MPV Gran % Lymph % (Auto) Louisa % (Auto) Eos % (Auto) Baso % (Auto) Gran # Lymph # Louisa # Eos # Baso # Sodium Potassium Chloride Carbon Dioxide Anion Gap BUN Creatinine Est GFR ( Amer) Est GFR (Non-Af Amer) POC Glucose (mg/dL) 213 H 274 H 204 H Random Glucose Calcium Phosphorus Magnesium Total Bilirubin AST ALT Alkaline Phosphatase Total Protein Albumin Globulin Albumin/Globulin Ratio Ur L.pneumophila Ag 01/31/17 01/31/17 01/31/17 06:00 06:00 07:19 WBC 4.7 D RBC 3.57 Hgb 10.3 L Hct 32.8 L MCV 91.9 MCH 28.9 MCHC 31.4 RDW 14.2 Plt Count 236 MPV 9.5 Gran % 82.6 H Lymph % (Auto) 11.8 L Louisa % (Auto) 5.6 Eos % (Auto) 0.0 L Baso % (Auto) 0.0 Gran # 3.87 Lymph # 0.6 L Louisa # 0.3 Eos # 0.0 Baso # 0.00 Sodium 147 Potassium 4.6 Chloride 117 H Carbon Dioxide 24 Anion Gap 11 BUN 42 H Creatinine 1.7 H Est GFR ( Amer) 37 Est GFR (Non-Af Amer) 31 POC Glucose (mg/dL) 207 H Random Glucose 197 H Calcium 8.1 L Phosphorus 4.0 Magnesium 1.8 Total Bilirubin 0.5 AST 17 ALT 31 Alkaline Phosphatase 64 Total Protein 5.9 Albumin 3.1 Globulin 2.8 Albumin/Globulin Ratio 1.1 Ur L.pneumophila Ag 01/31/17 11:32 WBC RBC Hgb Hct MCV MCH MCHC RDW Plt Count MPV Gran % Lymph % (Auto) Louisa % (Auto) Eos % (Auto) Baso % (Auto) Gran # Lymph # Louisa # Eos # Baso # Sodium Potassium Chloride Carbon Dioxide Anion Gap BUN Creatinine Est GFR ( Amer) Est GFR (Non-Af Amer) POC Glucose (mg/dL) 357 H Random Glucose Calcium Phosphorus Magnesium Total Bilirubin AST ALT Alkaline Phosphatase Total Protein Albumin Globulin Albumin/Globulin Ratio Ur L.pneumophila Ag Fingerstick Blood Sugar Results: 357 Critical Care Progress Note - Nutrition Nutrition: Nutrition Category Date Time Status Heart Healthy Diet [DIET] Diets 01/30/17 Dinner Ordered Assessment/Plan - Assessment and Plan (Free Text) Assessment: 56 year old female with past medical history of COPD, asthma, breast cancer s/p chemotherapy a year ago, and diabetes who presented after falling out of bed and for altered mental status with suspected overdose. Plan: Neurologic AMS fully resolved, AAOx4, fully improved, nonfocal Utox showed benzo and opiates Cardiovascular HD stable No acute issues On monitor Pulmnologic Hx of COPD, Asthma, now off BIPAP on mask, protecting airway Suspected HCAP vs aspiration during AMS episode Cont Azithromycin, Vanc D2 Cont Solumedrol 40mg q8 Added mucinex DM for cough GI Cont Heart healthy diet Cont GI ppx Renal/Electrolytes DAHLIA improving Continue NS @100 Following BUN and Cr Heme HD stable No active bleeding Cont monitor with CBC ID ID consulted for suspected HCAP vs aspiration PNA Pending legionella/strep Cont azithro/vanco D2 GI/DVT PPx: Protonix/Enoxaparin/SCDs - Date & Time Date: 01/31/17 Time: 07:45 <Dusty Khan - Last Filed: 01/31/17 12:32> CCU Objective - Vital Signs / Intake & Output Vital Signs (Last 4 hours): Vital Signs Temp Pulse Resp BP Pulse Ox 01/31/17 12:24 98.1 F 106 H 18 134/68 98 01/31/17 12:07 98.7 F 01/31/17 12:03 100 H 18 01/31/17 12:02 100 H 21 01/31/17 12:01 98 H 01/31/17 12:00 100 H 30 H 01/31/17 11:59 100 H 15 01/31/17 11:58 102 H 01/31/17 11:57 105 H 10 L 01/31/17 11:56 104 H 18 01/31/17 11:55 101 H 23 01/31/17 11:54 100 H 16 01/31/17 11:53 100 H 14 01/31/17 11:52 99 H 01/31/17 11:51 101 H 17 01/31/17 11:50 101 H 01/31/17 11:49 102 H 01/31/17 11:48 100 H 14 01/31/17 11:47 100 H 16 01/31/17 11:46 101 H 14 01/31/17 11:45 101 H 16 01/31/17 11:44 103 H 18 01/31/17 11:43 104 H 18 01/31/17 11:42 106 H 17 01/31/17 11:41 107 H 16 01/31/17 11:40 109 H 23 90 L 01/31/17 11:30 101 H 22 99 01/31/17 11:20 102 H 100 01/31/17 11:10 107 H 11 L 98 01/31/17 11:00 104 H 120 H 98 01/31/17 10:51 107 H 11 L 116/57 L 99 01/31/17 10:50 108 H 99 01/31/17 10:40 109 H 15 98 01/31/17 10:30 109 H 24 99 01/31/17 10:21 116 H 95 01/31/17 10:10 115 H 98 01/31/17 10:00 114 H 22 97 01/31/17 09:51 120 H 17 139/58 L 98 01/31/17 09:50 118 H 19 100 01/31/17 09:40 117 H 16 100 01/31/17 09:30 118 H 12 99 01/31/17 09:20 119 H 21 97 01/31/17 09:10 120 H 20 95 01/31/17 09:00 117 H 17 100 01/31/17 08:59 115 H 01/31/17 08:51 119 H 18 125/56 L 98 01/31/17 08:50 120 H 97 01/31/17 08:40 123 H 17 97 Intake and Output (Last 8hrs): Intake & Output 01/30/17 01/31/17 01/31/17 22:59 06:59 14:59 Intake Total 1650 800 Output Total 700 800 350 Balance 950 0 -350 Intake: IV 1650 800 Right Subclavian 1650 800 Output: Urine 700 800 350 Urethral (Ray) 700 800 350 Other: # Bowel Movements 0 - Medications Active Medications: Active Medications Generic Name Dose Route Start Last Admin Trade Name Freq PRN Reason Stop Dose Admin Albuterol/Ipratropium 3 ml 01/30/17 07:30 01/31/17 11:53 Duoneb 3 Mg/0.5 Mg (3 Ml) Ud IH 3 ml [id number] LUCIANO Administration Albuterol/Ipratropium 3 ml 01/30/17 04:07 Duoneb 3 Mg/0.5 Mg (3 Ml) Ud IH Q2H PRN Shortness of Breath Enoxaparin Sodium 30 mg 01/30/17 10:00 01/31/17 09:17 Lovenox SC 30 mg DAILY LUCIANO Administration Protocol Guaifenesin/Dextromethorphan 1 tab 01/31/17 10:00 01/31/17 09:11 Mucinex-Dm 600-30 Mg PO 1 tab BID LUCIANO Administration Vancomycin HCl 1 gm in 250 mls @ 167 mls/hr 01/31/17 10:00 01/31/17 09:17 Vancomycin 1gm IVPB 167 mls/hr DAILY LUCIANO Administration Protocol Azithromycin 500 mg in 250 mls @ 167 mls/hr 01/30/17 10:00 01/31/17 09:19 Zithromax 500mg In Ns IVPB 167 mls/hr DAILY LUCIANO Administration Protocol Insulin Human Regular 0 units 01/30/17 07:30 01/31/17 11:36 Humulin R Med SC 7 units ACHS LUCIANO Administration Protocol Methylprednisolone 40 mg 01/30/17 14:00 01/31/17 06:26 Solu-Medrol IVP 40 mg Q8 LUCIANO Administration Ondansetron HCl 4 mg 01/30/17 05:45 Zofran Inj IVP Q6H PRN Nausea/Vomiting Pantoprazole Sodium 40 mg 01/30/17 10:00 01/31/17 09:14 Protonix Inj IVP 40 mg DAILY LUCIANO Administration - Patient Studies Lab Studies: Microbiology Studies 01/30/17 04:15 Urine Culture - Preliminary Urine,Clean Catch Gram Positive Cocci Lab Studies 01/31/17 01/31/17 01/31/17 Range/Units 11:32 07:19 06:00 WBC (4.5-11.0) 10^3/ul RBC (3.5-6.1) 10^6/uL Hgb (12.0-16.0) g/dL Hct (36.0-48.0) % MCV (80.0-105.0) fl MCH (25.0-35.0) pg MCHC (31.0-37.0) g/dl RDW (11.5-14.5) % Plt Count (120.0-450.0) 10^3/uL MPV (7.0-11.0) fl Gran % (50.0-68.0) % Lymph % (Auto) (22.0-35.0) % Louisa % (Auto) (1.0-6.0) % Eos % (Auto) (1.5-5.0) % Baso % (Auto) (0.0-3.0) % Gran # (1.4-6.5) Lymph # (1.2-3.4) Louisa # (0.1-0.6) Eos # (0.0-0.7) Baso # (0.0-2.0) K/mm3 Sodium 147 (132-148) mmol/L Potassium 4.6 (3.6-5.0) mmol/L Chloride 117 H (95-110) mmol/L Carbon Dioxide 24 (21-33) mmol/L Anion Gap 11 (10-20) BUN 42 H (7-21) mg/dL Creatinine 1.7 H (0.7-1.2) mg/dL Est GFR ( Amer) 37 Est GFR (Non-Af Amer) 31 POC Glucose (mg/dL) 357 H 207 H (65-110) mg/dL Random Glucose 197 H (70-110) mg/dL Calcium 8.1 L (8.4-10.5) mg/dL Phosphorus 4.0 (2.5-4.5) mg/dL Magnesium 1.8 (1.7-2.2) mg/dL Total Bilirubin 0.5 (0.2-1.3) mg/dL AST 17 (14-36) U/L ALT 31 (7-56) U/L Alkaline Phosphatase 64 (38-126) U/L Total Protein 5.9 (5.8-8.3) g/dL Albumin 3.1 (3.0-4.8) g/dL Globulin 2.8 gm/dL Albumin/Globulin Ratio 1.1 (1.1-1.8) Ur L.pneumophila Ag (NEGATIVE) 01/31/17 01/31/17 01/30/17 Range/Units 06:00 00:38 20:42 WBC 4.7 D (4.5-11.0) 10^3/ul RBC 3.57 (3.5-6.1) 10^6/uL Hgb 10.3 L (12.0-16.0) g/dL Hct 32.8 L (36.0-48.0) % MCV 91.9 (80.0-105.0) fl MCH 28.9 (25.0-35.0) pg MCHC 31.4 (31.0-37.0) g/dl RDW 14.2 (11.5-14.5) % Plt Count 236 (120.0-450.0) 10^3/uL MPV 9.5 (7.0-11.0) fl Gran % 82.6 H (50.0-68.0) % Lymph % (Auto) 11.8 L (22.0-35.0) % Louisa % (Auto) 5.6 (1.0-6.0) % Eos % (Auto) 0.0 L (1.5-5.0) % Baso % (Auto) 0.0 (0.0-3.0) % Gran # 3.87 (1.4-6.5) Lymph # 0.6 L (1.2-3.4) Louisa # 0.3 (0.1-0.6) Eos # 0.0 (0.0-0.7) Baso # 0.00 (0.0-2.0) K/mm3 Sodium (132-148) mmol/L Potassium (3.6-5.0) mmol/L Chloride (95-110) mmol/L Carbon Dioxide (21-33) mmol/L Anion Gap (10-20) BUN (7-21) mg/dL Creatinine (0.7-1.2) mg/dL Est GFR ( Amer) Est GFR (Non-Af Amer) POC Glucose (mg/dL) 204 H 274 H (65-110) mg/dL Random Glucose (70-110) mg/dL Calcium (8.4-10.5) mg/dL Phosphorus (2.5-4.5) mg/dL Magnesium (1.7-2.2) mg/dL Total Bilirubin (0.2-1.3) mg/dL AST (14-36) U/L ALT (7-56) U/L Alkaline Phosphatase (38-126) U/L Total Protein (5.8-8.3) g/dL Albumin (3.0-4.8) g/dL Globulin gm/dL Albumin/Globulin Ratio (1.1-1.8) Ur L.pneumophila Ag (NEGATIVE) 01/30/17 01/30/17 01/30/17 Range/Units 15:58 11:18 11:10 WBC (4.5-11.0) 10^3/ul RBC (3.5-6.1) 10^6/uL Hgb (12.0-16.0) g/dL Hct (36.0-48.0) % MCV (80.0-105.0) fl MCH (25.0-35.0) pg MCHC (31.0-37.0) g/dl RDW (11.5-14.5) % Plt Count (120.0-450.0) 10^3/uL MPV (7.0-11.0) fl Gran % (50.0-68.0) % Lymph % (Auto) (22.0-35.0) % Louisa % (Auto) (1.0-6.0) % Eos % (Auto) (1.5-5.0) % Baso % (Auto) (0.0-3.0) % Gran # (1.4-6.5) Lymph # (1.2-3.4) Louisa # (0.1-0.6) Eos # (0.0-0.7) Baso # (0.0-2.0) K/mm3 Sodium (132-148) mmol/L Potassium (3.6-5.0) mmol/L Chloride (95-110) mmol/L Carbon Dioxide (21-33) mmol/L Anion Gap (10-20) BUN (7-21) mg/dL Creatinine (0.7-1.2) mg/dL Est GFR ( Amer) Est GFR (Non-Af Amer) POC Glucose (mg/dL) 213 H 192 H (65-110) mg/dL Random Glucose (70-110) mg/dL Calcium (8.4-10.5) mg/dL Phosphorus (2.5-4.5) mg/dL Magnesium (1.7-2.2) mg/dL Total Bilirubin (0.2-1.3) mg/dL AST (14-36) U/L ALT (7-56) U/L Alkaline Phosphatase (38-126) U/L Total Protein (5.8-8.3) g/dL Albumin (3.0-4.8) g/dL Globulin gm/dL Albumin/Globulin Ratio (1.1-1.8) Ur L.pneumophila Ag Negative (NEGATIVE) 01/30/17 Range/Units 07:45 WBC (4.5-11.0) 10^3/ul RBC (3.5-6.1) 10^6/uL Hgb (12.0-16.0) g/dL Hct (36.0-48.0) % MCV (80.0-105.0) fl MCH (25.0-35.0) pg MCHC (31.0-37.0) g/dl RDW (11.5-14.5) % Plt Count (120.0-450.0) 10^3/uL MPV (7.0-11.0) fl Gran % (50.0-68.0) % Lymph % (Auto) (22.0-35.0) % Louisa % (Auto) (1.0-6.0) % Eos % (Auto) (1.5-5.0) % Baso % (Auto) (0.0-3.0) % Gran # (1.4-6.5) Lymph # (1.2-3.4) Louisa # (0.1-0.6) Eos # (0.0-0.7) Baso # (0.0-2.0) K/mm3 Sodium (132-148) mmol/L Potassium (3.6-5.0) mmol/L Chloride (95-110) mmol/L Carbon Dioxide (21-33) mmol/L Anion Gap (10-20) BUN (7-21) mg/dL Creatinine (0.7-1.2) mg/dL Est GFR ( Amer) Est GFR (Non-Af Amer) POC Glucose (mg/dL) 170 H (65-110) mg/dL Random Glucose (70-110) mg/dL Calcium (8.4-10.5) mg/dL Phosphorus (2.5-4.5) mg/dL Magnesium (1.7-2.2) mg/dL Total Bilirubin (0.2-1.3) mg/dL AST (14-36) U/L ALT (7-56) U/L Alkaline Phosphatase (38-126) U/L Total Protein (5.8-8.3) g/dL Albumin (3.0-4.8) g/dL Globulin gm/dL Albumin/Globulin Ratio (1.1-1.8) Ur L.pneumophila Ag (NEGATIVE) Laboratory Results - last 24 hr 01/30/17 01/30/17 01/30/17 07:45 11:10 11:18 WBC RBC Hgb Hct MCV MCH MCHC RDW Plt Count MPV Gran % Lymph % (Auto) Louisa % (Auto) Eos % (Auto) Baso % (Auto) Gran # Lymph # Louisa # Eos # Baso # Sodium Potassium Chloride Carbon Dioxide Anion Gap BUN Creatinine Est GFR ( Amer) Est GFR (Non-Af Amer) POC Glucose (mg/dL) 170 H 192 H Random Glucose Calcium Phosphorus Magnesium Total Bilirubin AST ALT Alkaline Phosphatase Total Protein Albumin Globulin Albumin/Globulin Ratio Ur L.pneumophila Ag Negative 01/30/17 01/30/17 01/31/17 15:58 20:42 00:38 WBC RBC Hgb Hct MCV MCH MCHC RDW Plt Count MPV Gran % Lymph % (Auto) Louisa % (Auto) Eos % (Auto) Baso % (Auto) Gran # Lymph # Louisa # Eos # Baso # Sodium Potassium Chloride Carbon Dioxide Anion Gap BUN Creatinine Est GFR ( Amer) Est GFR (Non-Af Amer) POC Glucose (mg/dL) 213 H 274 H 204 H Random Glucose Calcium Phosphorus Magnesium Total Bilirubin AST ALT Alkaline Phosphatase Total Protein Albumin Globulin Albumin/Globulin Ratio Ur L.pneumophila Ag 01/31/17 01/31/17 01/31/17 06:00 06:00 07:19 WBC 4.7 D RBC 3.57 Hgb 10.3 L Hct 32.8 L MCV 91.9 MCH 28.9 MCHC 31.4 RDW 14.2 Plt Count 236 MPV 9.5 Gran % 82.6 H Lymph % (Auto) 11.8 L Louisa % (Auto) 5.6 Eos % (Auto) 0.0 L Baso % (Auto) 0.0 Gran # 3.87 Lymph # 0.6 L Louisa # 0.3 Eos # 0.0 Baso # 0.00 Sodium 147 Potassium 4.6 Chloride 117 H Carbon Dioxide 24 Anion Gap 11 BUN 42 H Creatinine 1.7 H Est GFR ( Amer) 37 Est GFR (Non-Af Amer) 31 POC Glucose (mg/dL) 207 H Random Glucose 197 H Calcium 8.1 L Phosphorus 4.0 Magnesium 1.8 Total Bilirubin 0.5 AST 17 ALT 31 Alkaline Phosphatase 64 Total Protein 5.9 Albumin 3.1 Globulin 2.8 Albumin/Globulin Ratio 1.1 Ur L.pneumophila Ag 01/31/17 11:32 WBC RBC Hgb Hct MCV MCH MCHC RDW Plt Count MPV Gran % Lymph % (Auto) Louisa % (Auto) Eos % (Auto) Baso % (Auto) Gran # Lymph # [place] # Eos # Baso # Sodium Potassium Chloride Carbon Dioxide Anion Gap BUN Creatinine Est GFR ( Amer) Est GFR (Non-Af Amer) POC Glucose (mg/dL) 357 H Random Glucose Calcium Phosphorus Magnesium Total Bilirubin AST ALT Alkaline Phosphatase Total Protein Albumin Globulin Albumin/Globulin Ratio Ur L.pneumophila Ag Critical Care Progress Note - Nutrition Nutrition: Nutrition Category Date Time Status Heart Healthy Diet [DIET] Diets 01/30/17 Dinner Ordered Assessment/Plan - Assessment and Plan (Free Text) Plan: Patient seen and examined, with resident on rounds, agree with note, with following additions/exceptions: patient is 56yo female PMhx of active smoker 1-3pks per day, COPD/Asthma, Breast Ca, a/w hypercapnia and PNA. Pt supposedly took morphine pills for pain. Currently awake, alert, NAD, follows simple commands, active conversation, off BIPAP CXR with RML/RLL infiltrate, on antibiotics Hypercapnia PNA COPD Recommend: - IV steroids - cont with 2LNC, stable off BIPAP - IV Abx, Vanco, Zosyn, Azithro - check Urine Legionella, Strep - follow up cultures - IVF hydration - monitor resp status closely - BP control - GI ppx - DVT ppx - STABLE, transfer to regional medical floor
--- NOTE | 2017-01-31 14:42 | CP.PCM.PN ---
<KeniayoTomi - Last Filed: 02/01/17 06:51> Subjective - Date & Time of Evaluation Date of Evaluation: 01/31/17 Time of Evaluation: 09:15 - Subjective Subjective: Patient seen and examined at bedside this AM in ICU. Patient laying in bed in no acute distress. No acute events reported overnight. Patient reports she possibly took too many of her pain or anti-anxiety meds prior to admission. Patient not entirely sure of timeline leading up to admission. Patient does report she feels more herself today and is expressing the desire to go home. Patient denies chest pain, fever, nausea, chills, abdominal pain, change in bowel habits, tremors, . Patient does express some difficulty with respirations but knows it is due to her long history of smoking. Objective - Vital Signs/Intake and Output Vital Signs (last 24 hours): Temp Pulse Resp BP Pulse Ox 98.1 F 106 H 18 134/68 98 01/31/17 12:24 01/31/17 12:24 01/31/17 12:24 01/31/17 12:24 01/31/17 12:24 Intake and Output: 01/31/17 01/31/17 06:59 18:59 Intake Total 800 Output Total 800 350 Balance 0 -350 - Medications Medications: Current Medications Albuterol/Ipratropium (Duoneb 3 Mg/0.5 Mg (3 Ml) Ud) 3 ml IH [id number] [facility] Last Admin: 01/31/17 11:53 Dose: 3 ml Albuterol/Ipratropium (Duoneb 3 Mg/0.5 Mg (3 Ml) Ud) 3 ml IH Q2H PRN PRN Reason: Shortness of Breath Enoxaparin Sodium (Lovenox) 30 mg SC DAILY [facility] PRN Reason: Protocol Last Admin: 01/31/17 09:17 Dose: 30 mg Guaifenesin/Dextromethorphan (Mucinex-Dm 600-30 Mg) 1 tab PO BID [facility] Last Admin: 01/31/17 09:11 Dose: 1 tab Vancomycin HCl (Vancomycin 1gm) 1 gm in 250 mls @ 167 mls/hr IVPB DAILY [facility] PRN Reason: Protocol Last Admin: 01/31/17 09:17 Dose: 167 mls/hr Azithromycin (Zithromax 500mg In Ns) 500 mg in 250 mls @ 167 mls/hr IVPB DAILY [facility] PRN Reason: Protocol Last Admin: 01/31/17 09:19 Dose: 167 mls/hr Insulin Human Regular (Humulin R Med) 0 units SC ACHS [facility] PRN Reason: Protocol Last Admin: 01/31/17 11:36 Dose: 7 units Methylprednisolone (Solu-Medrol) 40 mg IVP Q8 [facility] Last Admin: 01/31/17 13:11 Dose: 40 mg Ondansetron HCl (Zofran Inj) 4 mg IVP Q6H PRN PRN Reason: Nausea/Vomiting Pantoprazole Sodium (Protonix Inj) 40 mg IVP DAILY [facility] Last Admin: 01/31/17 09:14 Dose: 40 mg - Labs Labs: 01/31/17 06:00 01/31/17 06:00 PT 12.2 SECONDS (9.4-12.5) 01/30/17 02:30 INR 1.12 (0.93-1.08) H 01/30/17 02:30 APTT 40.3 Seconds (25.1-36.5) H 01/30/17 02:30 - Constitutional Appears: Non-toxic, No Acute Distress, Unkempt, Older Than Stated Age - Head Exam Head Exam: ATRAUMATIC, NORMAL INSPECTION, NORMOCEPHALIC - Eye Exam Eye Exam: EOMI, PERRL Pupil Exam: NORMAL ACCOMODATION, PERRL - ENT Exam ENT Exam: Mucous Membranes Dry - Neck Exam Neck Exam: Full ROM - Respiratory Exam Respiratory Exam: Decreased Breath Sounds, Wheezes (bilateral in all lung sotelo ), NORMAL BREATHING PATTERN. absent: Respiratory Distress - Cardiovascular Exam Cardiovascular Exam: Tachycardia, REGULAR RHYTHM, +S1, +S2 - GI/Abdominal Exam GI & Abdominal Exam: Soft, Normal Bowel Sounds. absent: Guarding, Tenderness - Extremities Exam Extremities Exam: Full ROM. absent: Calf Tenderness, Pedal Edema - Back Exam Back Exam: NORMAL INSPECTION. absent: CVA tenderness (L), CVA tenderness (R) - Neurological Exam Neurological Exam: Alert, Awake, Oriented x3 Neuro motor strength exam: Left Upper Extremity: 4, Right Upper Extremity: 4, Left Lower Extremity: 4, Right Lower Extremity: 4 - Psychiatric Exam Psychiatric exam: Agitated (mild) - Skin Skin Exam: Dry, Intact, Normal Color, Warm. absent: Rash Assessment and Plan - Assessment and Plan (Free Text) Assessment: 56 year old female with past medical history significant for COPD, asthma, breast cancer s/p chemotherapy one year ago, and DM2 who presented to [facility] after falling out of bed per family and for AMS with suspected overdose Plan: 1. AMS - resolved - AAOx3 today on exam - likely secondary to overdose of pain medication and anti-anxiolytic medications vs. CVA - UDS positive for benzo and opiates - Head CT: Negative for acute intracranial abnormalities, fractures - Continue to monitor 2. Pneumonia - HCAP vs. Aspiration - History of previous hospital stays, suspected aspiration prior to presentation - CXR(01/30/17): small right pleural effusion and fluid in the minor fissure, subsefmental atelectasis in the RLL - CXR(01/31/17): Volume loss in the right lung with mediastinal shift to the right, increasing infiltrate in the RUL - Patient placed on azithromycin, vancomycin, zosyn - Mucinex DM for cough - Solumedrol 40mg Q8 - Bld culture negative to date - Legionella negative, Strep urine pending - Awaiting sputum culture - Repeat CXR in AM - ID consulted, appreciate recs 3. DAHLIA-improving - Cr on admission of 2.5, today 1.7 - Likely secondary to hypovolemia vs. medication vs. limited period of hypoperfusion - Continue IVF with NS - Continue to monitor 4. Anemia - Normocytic normochromic anemia - Likely secondary to ACD - H/H drop during admission likely secondary to fluid hydration - Continue to monitor GI PPX: Protonix DVT PPX: SCDs Case and plan discussed with attending <Lisa Todd - Last Filed: 02/01/17 14:14> Objective - Vital Signs/Intake and Output Vital Signs (last 24 hours): Temp Pulse Resp BP Pulse Ox 98 F 102 H 22 148/56 L 92 L 02/01/17 08:19 02/01/17 08:19 02/01/17 08:19 02/01/17 08:19 02/01/17 08:19 Intake and Output: 02/01/17 02/01/17 06:59 18:59 Intake Total 480 Balance 480 - Labs Labs: 02/01/17 06:30 02/01/17 06:30 PT 12.2 SECONDS (9.4-12.5) 01/30/17 02:30 INR 1.12 (0.93-1.08) H 01/30/17 02:30 APTT 40.3 Seconds (25.1-36.5) H 01/30/17 02:30 Attending/Attestation - Attestation I have personally seen and examined this patient.: Yes I have fully participated in the care of the patient.: Yes I have reviewed all pertinent clinical information, including history, physical exam and plan: Yes Notes (Text): 02/01/17 14:09 Patient was seen and examined with lpn medical assistant. Agreed with resident assessment and plan. Patient is alert,awake and oriented today.Mental status is back to normal. Repeat Chest X rays todays showed worsening right sided infiltrate, we will get CT scan of chest .We will continue broad spectrum antibiotics .Cultures are negative so far. Etiology of change in mental status is likely due to CNC depressant medications in setting of aspiration Pneumonia.Hypercapnia and Respiratory acidosis has improved.We will stop IV steroid and will start on oral Prednisone. Patient wants to be discharged.The need of stay in the hospital was discussed in detail. Management plan was discussed in detail with patient Education was provided.
--- NOTE | 2017-01-31 17:02 | CP.PCM.CON ---
History of Present Illness - History of Present Illness History of Present Illness: Infectious Disease Consultation: January 31, 2017 56 yo female with presentation of falling out of bed on admission. The patient found to have a right upper lobe pneumonia. She is making no complaints. Currently in the MICU. The patient has numerous admissions to [facility]. She has an extensive medical history that includes COPD, asthma, on oxygen (3L), breast cancer (last chemotherapy treatment a year ago) and diabetes. PMHx: COPD, asthma, on oxygen (3L), breast cancer (last chemotherapy treatment a year ago) and diabetes PSHx: Right chest port Allergies: Levofloxacin, nystatin Social Hx: 1-3 ppd x 45 years, no illicit drug use, "quit" EtOH use Active Medications Albuterol/Ipratropium (Duoneb 3 Mg/0.5 Mg (3 Ml) Ud) 3 ml IH [id number] [facility] Last Admin: 01/31/17 15:52 Dose: 3 ml Albuterol/Ipratropium (Duoneb 3 Mg/0.5 Mg (3 Ml) Ud) 3 ml IH Q2H PRN PRN Reason: Shortness of Breath Alprazolam (Xanax) 0.5 mg PO TID PRN; Protocol PRN Reason: Anxiety Last Admin: 01/31/17 16:12 Dose: 0.5 mg Enoxaparin Sodium (Lovenox) 30 mg SC DAILY [facility] PRN Reason: Protocol Last Admin: 01/31/17 09:17 Dose: 30 mg Guaifenesin/Dextromethorphan (Mucinex-Dm 600-30 Mg) 1 tab PO BID [facility] Last Admin: 01/31/17 09:11 Dose: 1 tab Vancomycin HCl (Vancomycin 1gm) 1 gm in 250 mls @ 167 mls/hr IVPB DAILY [facility] PRN Reason: Protocol Last Admin: 01/31/17 09:17 Dose: 167 mls/hr Azithromycin (Zithromax 500mg In Ns) 500 mg in 250 mls @ 167 mls/hr IVPB DAILY [facility] PRN Reason: Protocol Last Admin: 01/31/17 09:19 Dose: 167 mls/hr Insulin Detemir (Levemir) 15 unit SC HS Family Hx: none given ROS: Patient denies fevers, chills, nausea, vomiting, diarrhea, headaches, dizziness , chest pain, abdominal pain, melena, hematuria, hematemesis, hematochezia, depression, anxiety. Past Patient History - Infectious Disease Hx of Infectious Diseases: None - Tetanus Immunizations Tetanus Immunization: Unknown - Past Medical History & Family History Past Medical History?: Yes - Past Social History Smoking Status: Heavy Smoker > 10 Cigarettes Daily - CARDIAC Hx Hypertension: Yes - PULMONARY Hx Chronic Obstructive Pulmonary Disease (COPD): Yes - NEUROLOGICAL Hx Neurological Disorder: No - HEENT Hx HEENT Problems: Yes ([place] left ear) Hx Cataracts: Yes - RENAL Hx Chronic Kidney Disease: No (HYDRONEPHROSIS) Hx Kidney Stones: Yes - ENDOCRINE/METABOLIC Hx Diabetes Mellitus Type 2: Yes - HEMATOLOGICAL/ONCOLOGICAL Hx Blood Disorders: Yes Hx Cancer: Yes (breast cancer left dx 06/2015) Hx Chemotherapy: Yes - INTEGUMENTARY Hx Dermatological Problems: Yes Other/Comment: multiple age spots to back, small white areas of skin to left arm , ble skin discolorations, reddened buttock and hard red areas of skin to lower r and left buttock,multiple scabs and dry discolored skin areas to both arms, poor hygeine dirty toes and elbows - MUSCULOSKELETAL/RHEUMATOLOGICAL Hx Arthritis: Yes Hx Back Pain: Yes (chronic) Hx Falls: Yes (past falls) - GASTROINTESTINAL Hx Gastrointestinal Disorders: Yes (esophagitis/ pelvic mass) Hx Gastroesophageal Reflux: Yes - GENITOURINARY/GYNECOLOGICAL Hx Genitourinary Disorders: Yes Hx Urinary Tract Infection: Yes - PSYCHIATRIC Hx Psychophysiologic Disorder: Yes Hx Anxiety: Yes Hx Substance Use: Yes - SURGICAL HISTORY Other/Comment: left breast bx 07/01/15, umbilical hernia repair, c section x 2 extopic , excision of abd tumor, rcw pac, umbilical hernia repair - ANESTHESIA Hx Anesthesia Reactions: No Hx Malignant Hyperthermia: No Meds Allergies/Adverse Reactions: Allergies Allergy/AdvReac Type Severity Reaction Status Date / Time levofloxacin [From Levaquin] Allergy SHORTNESS Verified 01/30/17 02:04 OF BREATH;PARANOID nystatin Allergy SWELLING Verified 01/30/17 02:04 - Medications Medications: Current Medications Albuterol/Ipratropium (Duoneb 3 Mg/0.5 Mg (3 Ml) Ud) 3 ml IH [id number] [facility] Last Admin: 01/31/17 15:52 Dose: 3 ml Albuterol/Ipratropium (Duoneb 3 Mg/0.5 Mg (3 Ml) Ud) 3 ml IH Q2H PRN PRN Reason: Shortness of Breath Alprazolam (Xanax) 0.5 mg PO TID PRN; Protocol PRN Reason: Anxiety Last Admin: 01/31/17 16:12 Dose: 0.5 mg Enoxaparin Sodium (Lovenox) 30 mg SC DAILY [facility] PRN Reason: Protocol Last Admin: 01/31/17 09:17 Dose: 30 mg Guaifenesin/Dextromethorphan (Mucinex-Dm 600-30 Mg) 1 tab PO BID [facility] Last Admin: 01/31/17 09:11 Dose: 1 tab Vancomycin HCl (Vancomycin 1gm) 1 gm in 250 mls @ 167 mls/hr IVPB DAILY [facility] PRN Reason: Protocol Last Admin: 01/31/17 09:17 Dose: 167 mls/hr Azithromycin (Zithromax 500mg In Ns) 500 mg in 250 mls @ 167 mls/hr IVPB DAILY [facility] PRN Reason: Protocol Last Admin: 01/31/17 09:19 Dose: 167 mls/hr Insulin Detemir (Levemir) 15 unit SC HS [facility] Insulin Human Regular (Humulin R Med) 0 units SC ACHS [facility] PRN Reason: Protocol Last Admin: 01/31/17 11:36 Dose: 7 units Ondansetron HCl (Zofran Inj) 4 mg IVP Q6H PRN PRN Reason: Nausea/Vomiting Pantoprazole Sodium (Protonix Inj) 40 mg IVP DAILY [facility] Last Admin: 01/31/17 09:14 Dose: 40 mg Prednisone (Prednisone Tab) 40 mg PO DAILY [facility] Physical Exam - Constitutional Appears: Non-toxic, No Acute Distress, Chronically Ill - Head Exam Head Exam: ATRAUMATIC, NORMOCEPHALIC - Eye Exam Eye Exam: EOMI, PERRL Pupil Exam: NORMAL ACCOMODATION, PERRL - ENT Exam ENT Exam: Mucous Membranes Moist, Normal External Ear Exam, TM's Normal Bilaterally - Neck Exam Neck exam: Positive for: Normal Inspection. Negative for: Tenderness - Respiratory Exam Respiratory Exam: Decreased Breath Sounds, Rhonchi, Wheezes - Cardiovascular Exam Cardiovascular Exam: Tachycardia, +S1, +S2 - GI/Abdominal Exam GI & Abdominal Exam: Normal Bowel Sounds, Soft. absent: Distended, Tenderness - Extremities Exam Extremities exam: Positive for: joint swelling, pedal edema Additional comments: chronic venous stasis and chronic peripheral vascular disease - Neurological Exam Neurological exam: Alert, CN II-XII Intact, Oriented x3 - Psychiatric Exam Psychiatric exam: Normal Affect, Normal Mood Results - Vital Signs Recent Vital Signs: Last Vital Signs Temp 98.1 F 01/31/17 12:24 Pulse 106 H 01/31/17 12:24 Resp 18 01/31/17 12:24 BP 134/68 01/31/17 12:24 Pulse Ox 98 01/31/17 12:24 - Labs Result Diagrams: 01/31/17 06:00 01/31/17 06:00 Labs: Laboratory Results - last 24 hr 01/30/17 01/30/17 01/30/17 07:45 11:10 11:18 WBC RBC Hgb Hct MCV MCH MCHC RDW Plt Count MPV Gran % Lymph % (Auto) [place] % (Auto) Eos % (Auto) Baso % (Auto) Gran # Lymph # [place] # Eos # Baso # Sodium Potassium Chloride Carbon Dioxide Anion Gap BUN Creatinine Est GFR ( Amer) Est GFR (Non-Af Amer) POC Glucose (mg/dL) 170 H 192 H Random Glucose Calcium Phosphorus Magnesium Total Bilirubin AST ALT Alkaline Phosphatase Total Protein Albumin Globulin Albumin/Globulin Ratio Ur L.pneumophila Ag Negative 01/30/17 01/30/17 01/31/17 15:58 20:42 00:38 WBC RBC Hgb Hct MCV MCH MCHC RDW Plt Count MPV Gran % Lymph % (Auto) [place] % (Auto) Eos % (Auto) Baso % (Auto) Gran # Lymph # [place] # Eos # Baso # Sodium Potassium Chloride Carbon Dioxide Anion Gap BUN Creatinine Est GFR ( Amer) Est GFR (Non-Af Amer) POC Glucose (mg/dL) 213 H 274 H 204 H Random Glucose Calcium Phosphorus Magnesium Total Bilirubin AST ALT Alkaline Phosphatase Total Protein Albumin Globulin Albumin/Globulin Ratio Ur L.pneumophila Ag 01/31/17 01/31/17 01/31/17 06:00 06:00 07:19 WBC 4.7 D RBC 3.57 Hgb 10.3 L Hct 32.8 L MCV 91.9 MCH 28.9 MCHC 31.4 RDW 14.2 Plt Count 236 MPV 9.5 Gran % 82.6 H Lymph % (Auto) 11.8 L [place] % (Auto) 5.6 Eos % (Auto) 0.0 L Baso % (Auto) 0.0 Gran # 3.87 Lymph # 0.6 L [place] # 0.3 Eos # 0.0 Baso # 0.00 Sodium 147 Potassium 4.6 Chloride 117 H Carbon Dioxide 24 Anion Gap 11 BUN 42 H Creatinine 1.7 H Est GFR ( Amer) 37 Est GFR (Non-Af Amer) 31 POC Glucose (mg/dL) 207 H Random Glucose 197 H Calcium 8.1 L Phosphorus 4.0 Magnesium 1.8 Total Bilirubin 0.5 AST 17 ALT 31 Alkaline Phosphatase 64 Total Protein 5.9 Albumin 3.1 Globulin 2.8 Albumin/Globulin Ratio 1.1 Ur L.pneumophila Ag 01/31/17 11:32 WBC RBC Hgb Hct MCV MCH MCHC RDW Plt Count MPV Gran % Lymph % (Auto) [place] % (Auto) Eos % (Auto) Baso % (Auto) Gran # Lymph # [place] # Eos # Baso # Sodium Potassium Chloride Carbon Dioxide Anion Gap BUN Creatinine Est GFR ( Amer) Est GFR (Non-Af Amer) POC Glucose (mg/dL) 357 H Random Glucose Calcium Phosphorus Magnesium Total Bilirubin AST ALT Alkaline Phosphatase Total Protein Albumin Globulin Albumin/Globulin Ratio Ur L.pneumophila Ag Assessment & Plan - Assessment and Plan (Free Text) Assessment: 56 yo female with multiple hospitalizations to [facility] presented after a fall at home. The patient had AMS on admission which her son believed was secondary to overdosing on Xanax and her pain medications. Chest X-ray showing RUL pneumonia. Urine cultures showing gram positive cocci. Currently on Vancomycin and Azithromycin for antibiotic coverage. Would add Rocephin to the regimen for now until show culture results return. Supportive care. Currently in MICU for care. Thank you for allowing me to participate in the care of the patient, we will follow with you.
[2017-01-31] MEDS ORDERED: cefTRIAXone 1 gm 1 GM/100 ML BAG IVPB SCH (17:15)
[2017-01-31] MEDS ORDERED: Insulin Detemir 100 units/ml Vial (Levemir) SC SCH (22:00)
[2017-01-31] MEDS ORDERED: guaiFENesin 100 mg/5 ml Syrup UD PO ONE (22:47)
[2017-02-01] MEDS: Albuterol-Ipratrop 3 mg / 0.5 (3 ml) UD IH SCH ×3 (00:03→07:36)
[2017-02-01 06:44] LABS: GRAN # 5.55 (1.4-6.5); GRAN % 76.3 % (50.0-68.0); HEMATOCRIT 28.6 % (36.0-48.0); LYMPH # 1.1 (1.2-3.4); LYMPH % 14.9 % (22.0-35.0); MEAN CELL VOLUME 91.7 fl (80.0-105.0); MEAN CORPUSCULAR HEMOGLOBIN 28.8 pg (25.0-35.0); MEAN CORPUSCULAR HGB CONC 31.5 g/dl (31.0-37.0); MEAN PLATELET VOLUME 9.9 fl (7.0-11.0); MONO # 0.6 (0.1-0.6); MONO % 8.8 % (1.0-6.0); RED CELL DISTRIBUTION WIDTH 14.8 % (11.5-14.5); WHITE BLOOD COUNT 7.3 10^3/ul (4.5-11.0)
[2017-02-01 07:07] LABS: ALB/GLOB RATIO 1.3 (1.1-1.8); BILIRUBIN,TOTAL 0.2 mg/dL (0.2-1.3); CALCIUM 8.1 mg/dL (8.4-10.5); MAGNESIUM 1.7 mg/dL (1.7-2.2); PHOSPHOROUS 3.3 mg/dL (2.5-4.5); POTASSIUM 4.1 mmol/L (3.6-5.0); TOTAL PROTEIN 5.5 g/dL (5.8-8.3)
[2017-02-01 08:20] VITALS: BP 148/56; PULSE 102; RESP 22; TEMP 98; O2SAT 92
[2017-02-01] MEDS: Insulin Reg-MEDIUM-Coverage SC SCH (08:47)
--- NOTE | 2017-02-01 14:41 | CP.PCM.DIS ---
<KeniadouglasTomi dominique - Last Filed: 02/01/17 14:38> Provider - Provider Date of Admission: 01/30/17 03:41 Attending physician: Lisa Todd MD Primary care physician: PMD: Dr. Reed Sosa Consults: Infectious Disease: Dr. Soham Ruggiero Time Spent in preparation of Discharge (in minutes): 35 Hospital Course - Lab Results Lab Results: Micro Results 01/30/17 04:15 Urine,Clean Catch Urine Culture - Final Enterococcus Faecalis 01/30/17 06:38 Naris MRSA Culture (Admit) - Final MRSA NOT DETECTED Most Recent Lab Values WBC 7.3 10^3/ul (4.5-11.0) D 02/01/17 06:30 RBC 3.12 10^6/uL (3.5-6.1) L 02/01/17 06:30 Hgb 9.0 g/dL (12.0-16.0) L 02/01/17 06:30 Hct 28.6 % (36.0-48.0) L 02/01/17 06:30 MCV 91.7 fl (80.0-105.0) 02/01/17 06:30 MCH 28.8 pg (25.0-35.0) 02/01/17 06:30 MCHC 31.5 g/dl (31.0-37.0) 02/01/17 06:30 RDW 14.8 % (11.5-14.5) H 02/01/17 06:30 Plt Count 259 10^3/uL (120.0-450.0) 02/01/17 06:30 MPV 9.9 fl (7.0-11.0) 02/01/17 06:30 Gran % 76.3 % (50.0-68.0) H 02/01/17 06:30 Lymph % (Auto) 14.9 % (22.0-35.0) L 02/01/17 06:30 Isabela % (Auto) 8.8 % (1.0-6.0) H 02/01/17 06:30 Eos % (Auto) 0.0 % (1.5-5.0) L 02/01/17 06:30 Baso % (Auto) 0.0 % (0.0-3.0) 02/01/17 06:30 Gran # 5.55 (1.4-6.5) 02/01/17 06:30 Lymph # 1.1 (1.2-3.4) L 02/01/17 06:30 Isabela # 0.6 (0.1-0.6) 02/01/17 06:30 Eos # 0.0 (0.0-0.7) 02/01/17 06:30 Baso # 0.00 K/mm3 (0.0-2.0) 02/01/17 06:30 PT 12.2 SECONDS (9.4-12.5) 01/30/17 02:30 INR 1.12 (0.93-1.08) H 01/30/17 02:30 APTT 40.3 Seconds (25.1-36.5) H 01/30/17 02:30 pCO2 56 mm/Hg (35-45) H 01/30/17 10:22 pO2 66.0 mm/Hg (80-100) L 01/30/17 10:22 HCO3 20.9 mmol/L (21-28) L 01/30/17 10:22 ABG pH 7.18 (7.35-7.45) L* 01/30/17 10:22 ABG Total CO2 22.6 mmol.L (22-28) 01/30/17 10:22 ABG O2 Saturation 95.9 % (95-98) 01/30/17 10:22 ABG O2 Content 15.1 ML/dl (15-23) 01/30/17 06:30 ABG Base Excess -8.0 mmol/L (-2.0-3.0) L 01/30/17 10:22 ABG Hemoglobin 11.5 g/dL (11.7-17.4) L 01/30/17 06:30 ABG Carboxyhemoglobin 2.4 % (0.5-1.5) H 01/30/17 06:30 POC ABG HHb (Measured) 3.7 % (0-5) 01/30/17 06:30 ABG Methemoglobin 1.2 % (0.0-3.0) 01/30/17 06:30 ABG O2 Capacity 15.7 mL/dl (16-24) L 01/30/17 06:30 ABG Potassium 4.1 mmol/L (3.6-5.2) 01/30/17 10:22 Hgb O2 Saturation 92.7 % (95.0-98.0) L 01/30/17 06:30 Sodium 145.0 mmol/L (132-148) 01/30/17 10:22 Chloride 119.0 mmol/L (98-107) H 01/30/17 10:22 Glucose 193 mg/dl (65-105) H 01/30/17 10:22 Lactate 0.5 mmol/L (0.7-2.1) L 01/30/17 10:22 FiO2 30.0 % 01/30/17 10:22 Inspiratory BiPAP 18 01/30/17 10:22 Sodium 145 mmol/L (132-148) 02/01/17 06:30 Potassium 4.1 mmol/L (3.6-5.0) 02/01/17 06:30 Chloride 115 mmol/L (98-107) H 02/01/17 06:30 Carbon Dioxide 24 mmol/L (21-33) 02/01/17 06:30 Anion Gap 11 (10-20) 02/01/17 06:30 BUN 46 mg/dL (7-21) H 02/01/17 06:30 Creatinine 1.7 mg/dl (0.7-1.2) H 02/01/17 06:30 Est GFR ( Amer) 37 02/01/17 06:30 Est GFR (Non-Af Amer) 31 02/01/17 06:30 POC Glucose (mg/dL) 148 mg/dL (65-110) H 02/01/17 07:21 Random Glucose 162 mg/dL (70-110) H 02/01/17 06:30 Calcium 8.1 mg/dL (8.4-10.5) L 02/01/17 06:30 Phosphorus 3.3 mg/dL (2.5-4.5) 02/01/17 06:30 Magnesium 1.7 mg/dL (1.7-2.2) 02/01/17 06:30 Total Bilirubin 0.2 mg/dL (0.2-1.3) 02/01/17 06:30 Direct Bilirubin 0.4 mg/dL (0.0-0.4) 01/30/17 02:30 AST 18 U/L (14-36) 02/01/17 06:30 ALT 27 U/L (7-56) 02/01/17 06:30 Alkaline Phosphatase 60 U/L (38-126) 02/01/17 06:30 Lactate Dehydrogenase 341 U/L (333-699) 01/30/17 02:30 Total Creatine Kinase 109 U/L (35-230) 01/30/17 02:30 Troponin I < 0.01 ng/mL 01/30/17 02:30 Total Protein 5.5 g/dL (5.8-8.3) L 02/01/17 06:30 Albumin 3.1 g/dL (3.0-4.8) 02/01/17 06:30 Globulin 2.4 gm/dL 02/01/17 06:30 Albumin/Globulin Ratio 1.3 (1.1-1.8) 02/01/17 06:30 Lipase 43 U/L (23-300) 01/30/17 02:30 Procalcitonin 0.13 NG/ML (0.19-0.49) L 01/30/17 02:30 Arterial Blood Potassium 4.1 mmol/L (3.6-5.2) 01/30/17 10:22 Urine Color Yellow (YELLOW) 01/30/17 04:15 Urine Appearance Sl cloudy (CLEAR) 01/30/17 04:15 Urine pH 6.0 (4.7-8.0) 01/30/17 04:15 Ur Specific H[place] 1.025 (1.005-1.035) 01/30/17 04:15 Urine Protein 100 mg/dL (<30 mg/dL) H 01/30/17 04:15 Urine Glucose (UA) Negative mg/dL (NEGATIVE) 01/30/17 04:15 Urine Ketones Negative mg/dL (NEGATIVE) 01/30/17 04:15 Urine Blood Large (NEGATIVE) H 01/30/17 04:15 Urine Nitrate Negative (NEGATIVE) 01/30/17 04:15 Urine Bilirubin Negative (NEGATIVE) 01/30/17 04:15 Urine Urobilinogen 0.2 E.U./dL (<1 E.U./dL) 01/30/17 04:15 Ur Leukocyte Esterase Small [place]/uL (NEGATIVE) H 01/30/17 04:15 Urine RBC 10 - 15 /hpf (0-2) 01/30/17 04:15 Urine WBC 25 - 30 /hpf (0-6) 01/30/17 04:15 Ur Epithelial Cells 1 - 3 /hpf (0-5) 01/30/17 04:15 Urine Bacteria Mod (NEG) 01/30/17 04:15 Urine Opiates Screen Positive (NEGATIVE) H 01/30/17 04:15 Urine Methadone Screen Negative (NEGATIVE) 01/30/17 04:15 Ur Barbiturates Screen Negative (NEGATIVE) 01/30/17 04:15 Ur Phencyclidine Scrn Negative (NEGATIVE) 01/30/17 04:15 Ur Amphetamines Screen Negative (NEGATIVE) 01/30/17 04:15 U Benzodiazepines Scrn Positive (NEGATIVE) H 01/30/17 04:15 U Oth Cocaine Metabols Negative (NEGATIVE) 01/30/17 04:15 U Cannabinoids Screen Negative (NEGATIVE) 01/30/17 04:15 Alcohol, Quantitative < 10 mg/dL (0-10) 01/30/17 02:30 Ur L.pneumophila Ag Negative (NEGATIVE) 01/30/17 11:18 - Hospital Course Hospital Course: 56 year old female with past medical history of COPD, asthma, on home oxygen of 3L, hx of breast cancer (last chemotherapy treatment a year ago) and diabetes presented to the emergency department after falling out of bed and suspected overdose on home morphine and anti-anxiety medications. While in ED patient had a chest x-ray that showed small right pleural effusion and fluid in the minor fissure and subsegmental atelectasis in the right lower lobe as well as a CT of her head showing no acute intracranial abnormalities or fractures. Patient was admitted to the ICU for HCAP vs. aspiration pneumonia and somnolence likely secondary to AMS likely secondary to medication overdose vs. hypercapnic respiratory acidosis. Patient was placed on BiPAP and monitored clinically. While in ICU patient was given narcan which resolved somnolent state and placed on IV antibiotics for suspected HCAP vs. aspiration pneumonia. Patient responded appropriately to BiPAP and breathing treatments. Patient ABG's improved and she was transferred to the medical/surgical floor for further observation and administration of IV antibiotics. Infectious disease was consulted for the case and recommended continuing the current antibiotic regiment for her HCAP vs. aspiration pneumonia. On 02/01/2017 the patient became agitated with the nursing staff and requested to sign out against medical advice. The patient's care and goals of care were discussed with the patient as well as the risks for signing out against medical advice. The patient was in understanding of the risks to her health and decided to sign out against medical advice. - Date & Time of H&P Date of H&P: 01/30/17 Time of H&P: 04:09 Discharge Exam - Head Exam Head Exam: ATRAUMATIC, NORMAL INSPECTION, NORMOCEPHALIC - Additional Findings Additional findings: Patient did not allow for physical exam before signing out AMA Discharge Plan - Follow Up Plan Condition: CRITICAL Disposition: AGAINST MEDICAL ADVICE Additional Instructions: Patient was advised to return to the hospital if her symptoms worsen Patient was advised to follow up with her primary care physician <Lisa Todd - Last Filed: 02/01/17 17:24> Provider - Provider Date of Admission: 01/30/17 03:41 Attending physician: Lisa Todd MD Hospital Course - Lab Results Lab Results: Micro Results 01/30/17 04:15 Urine,Clean Catch Urine Culture - Final Enterococcus Faecalis 01/30/17 06:38 Naris MRSA Culture (Admit) - Final MRSA NOT DETECTED Most Recent Lab Values WBC 7.3 10^3/ul (4.5-11.0) D 02/01/17 06:30 RBC 3.12 10^6/uL (3.5-6.1) L 02/01/17 06:30 Hgb 9.0 g/dL (12.0-16.0) L 02/01/17 06:30 Hct 28.6 % (36.0-48.0) L 02/01/17 06:30 MCV 91.7 fl (80.0-105.0) 02/01/17 06:30 MCH 28.8 pg (25.0-35.0) 02/01/17 06:30 MCHC 31.5 g/dl (31.0-37.0) 02/01/17 06:30 RDW 14.8 % (11.5-14.5) H 02/01/17 06:30 Plt Count 259 10^3/uL (120.0-450.0) 02/01/17 06:30 MPV 9.9 fl (7.0-11.0) 02/01/17 06:30 Gran % 76.3 % (50.0-68.0) H 02/01/17 06:30 Lymph % (Auto) 14.9 % (22.0-35.0) L 02/01/17 06:30 Isabela % (Auto) 8.8 % (1.0-6.0) H 02/01/17 06:30 Eos % (Auto) 0.0 % (1.5-5.0) L 02/01/17 06:30 Baso % (Auto) 0.0 % (0.0-3.0) 02/01/17 06:30 Gran # 5.55 (1.4-6.5) 02/01/17 06:30 Lymph # 1.1 (1.2-3.4) L 02/01/17 06:30 Isabela # 0.6 (0.1-0.6) 02/01/17 06:30 Eos # 0.0 (0.0-0.7) 02/01/17 06:30 Baso # 0.00 K/mm3 (0.0-2.0) 02/01/17 06:30 PT 12.2 SECONDS (9.4-12.5) 01/30/17 02:30 INR 1.12 (0.93-1.08) H 01/30/17 02:30 APTT 40.3 Seconds (25.1-36.5) H 01/30/17 02:30 pCO2 56 mm/Hg (35-45) H 01/30/17 10:22 pO2 66.0 mm/Hg (80-100) L 01/30/17 10:22 HCO3 20.9 mmol/L (21-28) L 01/30/17 10:22 ABG pH 7.18 (7.35-7.45) L* 01/30/17 10:22 ABG Total CO2 22.6 mmol.L (22-28) 01/30/17 10:22 ABG O2 Saturation 95.9 % (95-98) 01/30/17 10:22 ABG O2 Content 15.1 ML/dl (15-23) 01/30/17 06:30 ABG Base Excess -8.0 mmol/L (-2.0-3.0) L 01/30/17 10:22 ABG Hemoglobin 11.5 g/dL (11.7-17.4) L 01/30/17 06:30 ABG Carboxyhemoglobin 2.4 % (0.5-1.5) H 01/30/17 06:30 POC ABG HHb (Measured) 3.7 % (0-5) 01/30/17 06:30 ABG Methemoglobin 1.2 % (0.0-3.0) 01/30/17 06:30 ABG O2 Capacity 15.7 mL/dl (16-24) L 01/30/17 06:30 ABG Potassium 4.1 mmol/L (3.6-5.2) 01/30/17 10:22 Hgb O2 Saturation 92.7 % (95.0-98.0) L 01/30/17 06:30 Sodium 145.0 mmol/L (132-148) 01/30/17 10:22 Chloride 119.0 mmol/L (98-107) H 01/30/17 10:22 Glucose 193 mg/dl (65-105) H 01/30/17 10:22 Lactate 0.5 mmol/L (0.7-2.1) L 01/30/17 10:22 FiO2 30.0 % 01/30/17 10:22 Inspiratory BiPAP 18 01/30/17 10:22 Sodium 145 mmol/L (132-148) 02/01/17 06:30 Potassium 4.1 mmol/L (3.6-5.0) 02/01/17 06:30 Chloride 115 mmol/L (98-107) H 02/01/17 06:30 Carbon Dioxide 24 mmol/L (21-33) 02/01/17 06:30 Anion Gap 11 (10-20) 02/01/17 06:30 BUN 46 mg/dL (7-21) H 02/01/17 06:30 Creatinine 1.7 mg/dl (0.7-1.2) H 02/01/17 06:30 Est GFR ( Amer) 37 02/01/17 06:30 Est GFR (Non-Af Amer) 31 02/01/17 06:30 POC Glucose (mg/dL) 148 mg/dL (65-110) H 02/01/17 07:21 Random Glucose 162 mg/dL (70-110) H 02/01/17 06:30 Calcium 8.1 mg/dL (8.4-10.5) L 02/01/17 06:30 Phosphorus 3.3 mg/dL (2.5-4.5) 02/01/17 06:30 Magnesium 1.7 mg/dL (1.7-2.2) 02/01/17 06:30 Total Bilirubin 0.2 mg/dL (0.2-1.3) 02/01/17 06:30 Direct Bilirubin 0.4 mg/dL (0.0-0.4) 01/30/17 02:30 AST 18 U/L (14-36) 02/01/17 06:30 ALT 27 U/L (7-56) 02/01/17 06:30 Alkaline Phosphatase 60 U/L (38-126) 02/01/17 06:30 Lactate Dehydrogenase 341 U/L (333-699) 01/30/17 02:30 Total Creatine Kinase 109 U/L (35-230) 01/30/17 02:30 Troponin I < 0.01 ng/mL 01/30/17 02:30 Total Protein 5.5 g/dL (5.8-8.3) L 02/01/17 06:30 Albumin 3.1 g/dL (3.0-4.8) 02/01/17 06:30 Globulin 2.4 gm/dL 02/01/17 06:30 Albumin/Globulin Ratio 1.3 (1.1-1.8) 02/01/17 06:30 Lipase 43 U/L (23-300) 01/30/17 02:30 Procalcitonin 0.13 NG/ML (0.19-0.49) L 01/30/17 02:30 Arterial Blood Potassium 4.1 mmol/L (3.6-5.2) 01/30/17 10:22 Urine Color Yellow (YELLOW) 01/30/17 04:15 Urine Appearance Sl cloudy (CLEAR) 01/30/17 04:15 Urine pH 6.0 (4.7-8.0) 01/30/17 04:15 Ur Specific [place] 1.025 (1.005-1.035) 01/30/17 04:15 Urine Protein 100 mg/dL (<30 mg/dL) H 01/30/17 04:15 Urine Glucose (UA) Negative mg/dL (NEGATIVE) 01/30/17 04:15 Urine Ketones Negative mg/dL (NEGATIVE) 01/30/17 04:15 Urine Blood Large (NEGATIVE) H 01/30/17 04:15 Urine Nitrate Negative (NEGATIVE) 01/30/17 04:15 Urine Bilirubin Negative (NEGATIVE) 01/30/17 04:15 Urine Urobilinogen 0.2 E.U./dL (<1 E.U./dL) 01/30/17 04:15 Ur Leukocyte Esterase Small Ald[place]/uL (NEGATIVE) H 01/30/17 04:15 Urine RBC 10 - 15 /hpf (0-2) 01/30/17 04:15 Urine WBC 25 - 30 /hpf (0-6) 01/30/17 04:15 Ur Epithelial Cells 1 - 3 /hpf (0-5) 01/30/17 04:15 Urine Bacteria Mod (NEG) 01/30/17 04:15 Urine Opiates Screen Positive (NEGATIVE) H 01/30/17 04:15 Urine Methadone Screen Negative (NEGATIVE) 01/30/17 04:15 Ur Barbiturates Screen Negative (NEGATIVE) 01/30/17 04:15 Ur Phencyclidine Scrn Negative (NEGATIVE) 01/30/17 04:15 Ur Amphetamines Screen Negative (NEGATIVE) 01/30/17 04:15 U Benzodiazepines Scrn Positive (NEGATIVE) H 01/30/17 04:15 U Oth Cocaine Metabols Negative (NEGATIVE) 01/30/17 04:15 U Cannabinoids Screen Negative (NEGATIVE) 01/30/17 04:15 Alcohol, Quantitative < 10 mg/dL (0-10) 01/30/17 02:30 Ur L.pneumophila Ag Negative (NEGATIVE) 01/30/17 11:18 Attending/Attestation - Attestation I have personally seen and examined this patient.: Yes I have fully participated in the care of the patient.: Yes I have reviewed all pertinent clinical information, including history, physical exam and plan: Yes
--- NOTE | 2017-02-01 15:15 | CP.PCM.PN ---
Subjective - Date & Time of Evaluation Date of Evaluation: 02/01/17 Time of Evaluation: 13:00 - Subjective Subjective: Infectious Disease Follow Up: February 01, 2017 56 yo female with presentation of falling out of bed on admission. The patient found to have a right upper lobe pneumonia. She is making no complaints. Currently in the MICU. The patient has numerous admissions to [facility]. She has an extensive medical history that includes COPD, asthma, on oxygen (3L), breast cancer (last chemotherapy treatment a year ago) and diabetes. Patient states that she feels better. Objective - Vital Signs/Intake and Output Vital Signs (last 24 hours): Temp Pulse Resp BP Pulse Ox 98 F 102 H 22 148/56 L 92 L 02/01/17 08:19 02/01/17 08:19 02/01/17 08:19 02/01/17 08:19 02/01/17 08:19 Intake and Output: 02/01/17 02/01/17 06:59 18:59 Intake Total 480 Balance 480 - Labs Labs: 02/01/17 06:30 02/01/17 06:30 PT 12.2 SECONDS (9.4-12.5) 01/30/17 02:30 INR 1.12 (0.93-1.08) H 01/30/17 02:30 APTT 40.3 Seconds (25.1-36.5) H 01/30/17 02:30 - Constitutional Appears: Non-toxic, No Acute Distress, Chronically Ill - Head Exam Head Exam: ATRAUMATIC, NORMOCEPHALIC - Eye Exam Eye Exam: EOMI, PERRL Pupil Exam: NORMAL ACCOMODATION, PERRL - ENT Exam ENT Exam: Mucous Membranes Moist, Normal External Ear Exam, TM's Normal Bilaterally - Neck Exam Neck Exam: Full ROM, Normal Inspection - Respiratory Exam Respiratory Exam: Decreased Breath Sounds, Wheezes, NORMAL BREATHING PATTERN. absent: Rales, Rhonchi - Cardiovascular Exam Cardiovascular Exam: REGULAR RHYTHM, RRR, +S1, +S2 - GI/Abdominal Exam GI & Abdominal Exam: Soft, Normal Bowel Sounds. absent: Distended, Tenderness - Extremities Exam Extremities Exam: Full ROM, Joint Swelling, Pedal Edema - Neurological Exam Neurological Exam: Alert, Awake, CN II-XII Intact, Oriented x3 - Psychiatric Exam Psychiatric exam: Normal Affect, Normal Mood - Skin Skin Exam: Intact, Normal Color Assessment and Plan - Assessment and Plan (Free Text) Assessment: 56 yo female with multiple hospitalizations to [facility] presented after a fall at home. The patient had AMS on admission which her son believed was secondary to overdosing on Xanax and her pain medications. Chest X-ray showing RUL pneumonia. Urine cultures showing gram positive cocci. Currently on Vancomycin and Azithromycin for antibiotic coverage. Would add Rocephin to the regimen for now until show culture results return. Supportive care. Enterococcus in urine cultures. A switch to Ampicillin or Unasyn would be beneficial. Currently on the floor for care. The patient is rather agitated with nursing staff and suggesting she would leave A. Thank you for allowing me to participate in the care of the patient, we will follow with you.
== END 2017-02-01 09:16 | disposition left against medical advice (07) | DRG 582 ==
LOC: ED 01:53 → ERH 03:41 → CCU 05:39 → 5RSO 01-31 12:15
PROVIDERS: ADMIT Hospitalist; ATTEND Internal Medicine
PROC: 5A09357 Assistance with Respiratory Ventilation, Less than 24 Consecutive Hours, Continuous Positive Airway Pressure (ICD-10-PCS; principal; 2017-01-30)
DX: T42.4X1A Poisoning by benzodiazepines, accidental (unintentional), initial encounter (principal); T40.601A Poisoning by unspecified narcotics, accidental (unintentional), initial encounter; J69.0 Pneumonitis due to inhalation of food and vomit; N17.9 Acute kidney failure, unspecified; E87.2 Acidosis; E11.22 Type 2 diabetes mellitus with diabetic chronic kidney disease; N18.9 Chronic kidney disease, unspecified; J98.11 Atelectasis; J43.9 Emphysema, unspecified; E86.1 Hypovolemia; M25.561 Pain in right knee; I12.9 Hypertensive chronic kidney disease with stage 1 through stage 4 chronic kidney disease, or unspecified chronic kidney disease; D64.9 Anemia, unspecified; Z79.4 Long term (current) use of insulin; Z87.891 Personal history of nicotine dependence; Z99.81 Dependence on supplemental oxygen; Z85.3 Personal history of malignant neoplasm of breast

== ENCOUNTER 2017-03-03 09:06 | Inpatient (IN) | payer MEDICAID ==
[2017-03-03 09:06] VITALS: BMI 25.7
[2017-03-03] MEDS ORDERED: Etomidate 20 mg/10ml Inj IV ONE (09:08)
[2017-03-03] MEDS ORDERED: Succinylcholine 200 mg/10 ml Inj IV ONE (09:09)
[2017-03-03] MEDS ORDERED: Vancomycin 1gm in NS 250ml 1 GM/250 ML BAG IVPB STA (09:27)
[2017-03-03 09:28] LABS: BASO # 0.04 K/mm3 (0.0-2.0); BASO % 0.3 % (0.0-3.0); EOS # 0.3 (0.0-0.7); EOS % 2.6 % (1.5-5.0); GRAN # 9.53 (1.4-6.5); GRAN % 76.3 % (50.0-68.0); HEMATOCRIT 36.8 % (36.0-48.0); LYMPH # 1.6 (1.2-3.4); LYMPH % 12.6 % (22.0-35.0); MEAN CELL VOLUME 94.8 fl (80.0-105.0); MEAN CORPUSCULAR HEMOGLOBIN 29.4 pg (25.0-35.0); MEAN PLATELET VOLUME 9.7 fl (7.0-11.0); MONO % 8.2 % (1.0-6.0); RED CELL DISTRIBUTION WIDTH 15.2 % (11.5-14.5); WHITE BLOOD COUNT 12.5 10^3/ul (4.5-11.0)
[2017-03-03] MEDS ORDERED: Cefepime 1gm in NS 100ml 1 GM/100 ML BAG IVPB ONE (09:28)
--- NOTE | 2017-03-03 09:29 | ED PDOC ---
Arrival/HPI - General Chief Complaint: Shortness Of Breath Time Seen by Provider: 03/03/17 09:19 Historian: EMS - History of Present Illness Narrative History of Present Illness (Text): 03/03/17 09:10 Yazmin Granado is a 56 year old female, whose past medical history includes COPD, asthma, on oxygen (3L), breast cancer s/p chemotherapy (likely radiative therapy and s/p chemo port placement), and diabetes, who presents to the emergency department via EMS. Per EMS, patient was originally was found on 84% on home oxygen, alert and talking to them, but on the ride to emergency department patient became progressively obtunded and not following commands. According to EMS patient was at home and no JVD was present. Patient had been admitted with possible right sided pneumonia and placed on biPAP for respiratory distress. As a result, ACL protocol was initiated and patient was intubated. Time/Duration: Prior to Arrival Symptom Onset: Sudden Symptom Course: Unchanged Past Medical History - Provider Review Nursing Documentation Reviewed: Yes - Infectious Disease Hx of Infectious Diseases: None - Tetanus Immunization Tetanus Immunization: Unknown - Cardiac Hx Hypertension: Yes - Pulmonary Hx Chronic Obstructive Pulmonary Disease (COPD): Yes - Neurological Hx Neurological Disorder: No - HEENT Hx HEENT Disorder: Yes ([place] left ear) Hx Cataracts: Yes - Renal Hx Renal Disorder: No (HYDRONEPHROSIS) Hx Kidney Stones: Yes - Endocrine/Metabolic Hx Diabetes Mellitus Type 2: Yes - Hematological/Oncological Hx Blood Disorders: Yes Hx Cancer: Yes (breast cancer left dx 06/2015) Hx Chemotherapy: Yes - Integumentary Hx Dermatological Disorder: Yes Other/Comment: multiple age spots to back, small white areas of skin to left arm , ble skin discolorations, reddened buttock and hard red areas of skin to lower r and left buttock,multiple scabs and dry discolored skin areas to both arms, poor hygeine dirty toes and elbows - Musculoskeletal/Rheumatological Hx Arthritis: Yes Hx Back Pain: Yes (chronic) Hx Falls: Yes (past falls) - Gastrointestinal Hx Gastrointestinal Disorders: Yes (esophagitis/ pelvic mass) Hx Gastroesophageal Reflux: Yes - Genitourinary/Gynecological Hx Genitourinary Disorders: Yes Hx Urinary Tract Infection: Yes - Psychiatric Hx Psychophysiologic Disorder: Yes Hx Anxiety: Yes Hx Substance Use: Yes - Past Surgical History Past Surgical History: Non-Contributing - Surgical History Other/Comment: left breast bx 07/01/15, umbilical hernia repair, c section x 2 extopic , excision of abd tumor, rcw pac, umbilical hernia repair - Anesthesia Hx Anesthesia Reactions: No Hx Malignant Hyperthermia: No - Suicidal Assessment Feels Threatened In Home Enviroment: No Family/Social History - Physician Review Nursing Documentation Reviewed: Yes Family/Social History: Unknown Family HX Smoking Status: Heavy Smoker > 10 Cigarettes Daily Hx Alcohol Use: Yes Hx Substance Use: Yes Hx Substance Use Treatment: No Allergies/Home Meds Allergies/Adverse Reactions: Allergies levofloxacin [From Levaquin] Allergy (Verified 03/03/17 09:16) SHORTNESS OF BREATH;PARANOID nystatin Allergy (Verified 03/03/17 09:16) SWELLING Home Medications: Home Meds Medication Instructions Recorded Confirmed Unobtainable 03/03/17 03/03/17 Review of Systems - Review of Systems Systems not reviewed;Unavailable: Altered Mental Status Physical Exam - Physical Exam Physical Exam Limitations: Altered Mental Status Vital Signs Reviewed: Yes Vital Signs Temp Pulse Resp BP Pulse Ox 03/03/17 10:12 110 H 14 127/58 L 100 03/03/17 09:47 99.3 F 115 H 18 135/74 98 03/03/17 09:10 32 H Pulse: Tachycardic Respiratory Rate: Tachypneic Pain Distress: None Mental Status: No: Alert and Oriented X 3 - Systems Exam Head: Present: Atraumatic, Normocephalic Medical Decision Making ED Course and Treatment: 03/03/17 Impression: 56 year old female brought via EMS AMS Plan: -- EKG -- Chest X-ray -- Labs -- Urinalysis -- Reassess and disposition Progress Notes: On arrival patient was administered 100 Succinylcholine and 20 Etomidate at 09: 14 AM . Additionally 19 lip line #7 was used. Currently being treated as sepsis with cardiac order. Intubation was done with light scope 7.02 first past visualization through the cord. 03/03/17 09:44 EKG: Ordered, reviewed, and independently interpreted the EKG. Rate : 116 BPM Rhythm : sinus tachycardia Interpretation : No ST-segment elevations or depressions, except for slightly high ST V1. No erythematous intervals core RA compression 03/03/17 10:40 Chest X-ray: Creator : Champ Reilly MD COMPARISON: 01/30/2017 FINDINGS: LUNGS: There is an infiltrate at the right lung base and a small effusion. There is a right IJ line in the SVC. The endotracheal tube is in satisfactory position PLEURA: No significant pleural effusion identified, no pneumothorax apparent. CARDIOVASCULAR: Normal. OSSEOUS STRUCTURES: No significant abnormalities. VISUALIZED UPPER ABDOMEN: Normal. OTHER FINDINGS: None. IMPRESSION: There is an infiltrate at the right lung base and a small effusion. There is a right IJ line in the SVC. The endotracheal tube is in satisfactory position - Critical Care Critical Care Minutes: 30 minutes - Lab Interpretations Lab Results: 03/03/17 09:05 03/03/17 09:05 Lab Results 03/03/17 09:30: Urine Color Light yellow, Urine Appearance Cloudy, Urine pH 5.5 , Ur Specific [place] 1.025, Urine Protein 100 H, Urine Glucose (UA) Negative, Urine Ketones Negative, Urine Blood Large H, Urine Nitrate Negative, Urine Bilirubin Negative, Urine Urobilinogen 0.2, Ur Leukocyte Esterase Moderate H, Urine RBC Tntc, Urine WBC Tntc, Ur Epithelial Cells 3 - 4, Amorphous Sediment Small, Urine Bacteria Many 03/03/17 09:05: Sodium 144, Chloride 106, Potassium 4.8, Carbon Dioxide 24, Anion Gap 18, BUN 60 H, Creatinine 2.4 H, Est GFR ( Amer) 25, Est GFR ( Non-Af Amer) 21, Random Glucose 151 H, Calcium 8.7, Phosphorus 6.3 H, Magnesium 2.3 H, Total Bilirubin 0.3, AST 40 H D, ALT 29, Alkaline Phosphatase 121, Troponin I < 0.01, NT-Pro-B Natriuret Pep 1510 H, Total Protein 7.1, Albumin 3.7 , Globulin 3.3, Albumin/Globulin Ratio 1.1 03/03/17 09:05: pO2 150 H, VBG pH 7.13 L*, VBG pCO2 72.0 H*, VBG HCO3 24.0, VBG Total CO2 26.2, VBG O2 Sat (Calc) 99.2 H, VBG Base Excess -6.6 L, VBG Potassium 4.7, Sodium 140.0, Chloride 109.0 H, Glucose 157 H, Lactate 1.0, FiO2 21.0, Venous Blood Potassium 4.7 12/15/17 09:05: PT 14.7 H, INR 1.33 H, APTT 44.5 H 03/03/17 09:05: WBC 12.5 H D, RBC 3.88, Hgb 11.4 L D, Hct 36.8, MCV 94.8 D, MCH 29.4, MCHC 31.0, RDW 15.2 H, Plt Count 367, MPV 9.7, Gran % 76.3 H, Lymph % (Auto) 12.6 L, [place] % (Auto) 8.2 H, Eos % (Auto) 2.6, Baso % (Auto) 0.3, Gran # 9.53 H, Lymph # 1.6, [place] # 1.0 H, Eos # 0.3, Baso # 0.04 I have reviewed the lab results: Yes - RAD Interpretation Radiology Orders: 03/03/17 09:20 CHEST PORTABLE [RAD] Stat 03/03/17 09:38 PELVIS W/O PO OR IV CONTRAST [CT] Stat 03/03/17 09:57 HEAD W/O CONTRAST [CT] Stat Client Support Professional: Radiologist - EKG Interpretation Interpreted by ED Physician: Yes Type: 12 lead EKG - Medication Orders Current Medication Orders: Vancomycin HCl (Vancomycin 1gm) 1 gm in 250 mls @ 167 mls/hr IVPB STAT STA PRN Reason: Protocol Stop: 03/03/17 10:56 Last Admin: 03/03/17 10:34 Dose: 167 mls/hr eMAR Start Stop Document 03/03/17 10:34 TA (Rec: 03/03/17 10:35 TA [id number]) Intravenous Solution Start Date 03/03/17 Start Time 10:35 Sodium Chloride (Sodium Chloride 0.9%) 1,000 mls @ 999 mls/hr IV .Q1H1M STA Stop: 03/03/17 11:01 Discontinued Medications Acetaminophen (Tylenol 650 Mg Supp) 975 mg RC STAT STA Stop: 03/03/17 10:01 Etomidate (Amidate) 20 mg IVP STAT STA Stop: 03/03/17 09:36 Cefepime HCl (Maxipime 1gm) 1 gm in 100 mls @ 100 mls/hr IVPB ONCE ONE PRN Reason: Protocol Stop: 03/03/17 10:27 Last Admin: 03/03/17 09:59 Dose: 100 mls/hr eMAR Start Stop Document 03/03/17 09:59 TA (Rec: 03/03/17 09:59 TA [id number]) Intravenous Solution Start Date 03/03/17 Start Time 09:59 Sodium Chloride (Sodium Chloride 0.9%) 1,000 mls @ 999 mls/hr IV .Q1H1M STA Stop: 03/03/17 10:33 Last Admin: 03/03/17 09:35 Dose: 999 mls/hr eMAR Start Stop Document 03/03/17 09:35 TA (Rec: 03/03/17 10:36 TA [id number]) Intravenous Solution Start Date 03/03/17 Start Time 09:35 Methylprednisolone (Solu-Medrol) 125 mg IVP STAT STA Stop: 03/03/17 10:09 Succinylcholine Chloride (Quelicin) 100 mg IV STAT STA Stop: 03/03/17 09:36 - Scribe Statement The provider has reviewed the documentation as recorded by the Rafa Schilling Provider Scribe Attestation: All medical record entries made by the Rafa were at my direction and personally dictated by me. I have reviewed the chart and agree that the record accurately reflects my personal performance of the history, physical exam, medical decision making, and the department course for this patient. I have also personally directed, reviewed, and agree with the discharge instructions and disposition. Disposition/Present on Arrival - Present on Arrival History of DVT/PE: No History of Uncontrolled Diabetes: Yes Urinary Catheter: No History of Decub. Ulcer: No History Surgical Site Infection Following: None - Disposition
[2017-03-03] MEDS ORDERED: Sodium Chloride 0.9% 1,000 ML IV STA ×2 (09:33→10:01)
[2017-03-03] MEDS ORDERED: Succinylcholine 200 mg/10 ml Inj IV STA (09:35)
[2017-03-03] MEDS ORDERED: Etomidate 20 mg/10ml Inj IVP STA (09:35)
[2017-03-03 09:39] LABS: PH,URINE 5.5 (4.7-8.0); URINE BILIRUBIN NEGATIVE (NEGATIVE); URINE BLOOD LARGE (NEGATIVE); URINE GLUCOSE (UA) NEGATIVE (NEGATIVE); URINE KETONE NEGATIVE (NEGATIVE); URINE LEUKOCYTE ESTERASE MODERATE Leu/uL (NEGATIVE); URINE PROTEIN 100 mg/dL (<30 mg/dL); URINE UROBILINOGEN 0.2 E.U./dL (<1 E.U./dL)
[2017-03-03 09:40] LABS: ALB/GLOB RATIO 1.1 (1.1-1.8); ALKALINE PHOSPHATASE 121 U/L (38-126); ALT/SGPT 29 U/L (7-56); AST/SGOT 40 U/L (14-36); BILIRUBIN,TOTAL 0.3 mg/dL (0.2-1.3); BLOOD UREA NITROGEN 60 mg/dL (7-21); CALCIUM 8.7 mg/dL (8.4-10.5); CARBON DIOXIDE 24 mmol/L (21-33); CHLORIDE 106 mmol/L (98-107); GFR AFRICAN-AMERICAN 25; GLUCOSE,RANDOM 151 mg/dL (70-110); INR 1.33 (0.93-1.08); MAGNESIUM 2.3 mg/dL (1.7-2.2); PARTIAL THROMBOPLASTIN TIME 44.5 Seconds (25.1-36.5); PHOSPHOROUS 6.3 mg/dL (2.5-4.5); POTASSIUM 4.8 mmol/L (3.6-5.0); SODIUM 144 mmol/L (132-148); TOTAL PROTEIN 7.1 g/dL (5.8-8.3)
[2017-03-03 09:41] LABS: URINE APPEARANCE CLOUDY (CLEAR); URINE COLOR LIGHT YELLOW (YELLOW)
[2017-03-03 09:45] LABS: VENOUS BLOOD GAS BASE EXCESS -6.6 mmol/L (0.0-2.0)
[2017-03-03 09:46] LABS: URINE BACTERIA MANY (NEG); URINE RBC TNTC /hpf (0-2); URINE WBC TNTC /hpf (0-6)
[2017-03-03 09:47] LABS: URINE AMORPHOUS SEDIMENT SMALL
[2017-03-03 09:48] LABS: TROPONIN I < 0.01 ng/mL; VENOUS BLOOD PH 7.13 (7.32-7.43)
--- NOTE | 2017-03-03 09:49 | RAD ---
HISTORY: Sepsis Patient COMPARISON: 01/30/2017 FINDINGS: LUNGS: There is an infiltrate at the right lung base and a small effusion. There is a right IJ line in the SVC. The endotracheal tube is in satisfactory position PLEURA: No significant pleural effusion identified, no pneumothorax apparent. CARDIOVASCULAR: Normal. OSSEOUS STRUCTURES: No significant abnormalities. VISUALIZED UPPER ABDOMEN: Normal. OTHER FINDINGS: None. IMPRESSION: There is an infiltrate at the right lung base and a small effusion. There is a right IJ line in the SVC. The endotracheal tube is in satisfactory position
[2017-03-03 11:30] LABS: ABG MECHANICAL RATE 14; ARTERIAL BLOOD GAS HCO3 19.3 mmol/L (21-28); ATERIAL BLOOD GAS PEEP 5
[2017-03-03 11:35] LABS: ARTERIAL BLOOD GAS PH 7.13 (7.35-7.45)
[2017-03-03] MEDS ORDERED: Sodium Chloride 0.9% 2,000 ML IV SCH (12:00)
--- NOTE | 2017-03-03 12:08 | CT ---
PROCEDURE: CT HEAD WITHOUT CONTRAST. HISTORY: ams/possible trauma COMPARISON: Comparison is made to the previous CT head dated 01/30/2017 TECHNIQUE: Axial computed tomography images were obtained through the head/brain without intravenous contrast. Radiation dose: Total exam DLP = 814.48 mGy-cm. This CT exam was performed using one or more of the following dose reduction techniques: Automated exposure control, adjustment of the mA and/or kV according to patient size, and/or use of iterative reconstruction technique. FINDINGS: HEMORRHAGE: No intracranial hemorrhage. BRAIN: No mass effect or edema. No atrophy or chronic microvascular ischemic changes. VENTRICLES: Unremarkable. No hydrocephalus. CALVARIUM: Unremarkable. PARANASAL SINUSES: Mucosal thickening and air-fluid level noted at the maxillary sinuses. Mucosal thickening is also noted at the ethmoid sinuses. Nasal septum deviation to the left is again noted. MASTOID AIR CELLS: Unremarkable as visualized. No inflammatory changes. OTHER FINDINGS: None. IMPRESSION: No evidence of acute intracranial hemorrhage intracranial collection mass effect or midline shift. Mucosal thickening and air-fluid levels noted in the sphenoid and maxillary sinuses suggestive of sinusitis in the appropriate clinical setting.
[2017-03-03] MEDS ORDERED: Propofol 10 mg/ml 1,000 MG/100 ML VIAL ONE (12:12)
--- NOTE | 2017-03-03 12:26 | CP.PCM.CON ---
History of Present Illness - History of Present Illness History of Present Illness: HPI: Patient is 56yo female with PMHx of breast Ca, COPD, on home o2, 3L, active smoker 1pk per day, HTN, opiate abuse, presents with AMS, hypoxia. Pt was noted to be 84% on 3L, obtunded, intubated for airway protection. Post intubation ABG demonstrated hypercapnia, Resp acidosis. Currently intubated, sedated, but opens eyes. CT head negative. No recent illness. PMHx as above PSHx as above Allergies Levaquin, Nystatin Meds as per EMR Social active smoker 1pk per day, opiate abuse Fhx NC Review of Systems - Review of Systems Review of Systems: cannot obtain, intubated Past Patient History - Infectious Disease Hx of Infectious Diseases: None - Tetanus Immunizations Tetanus Immunization: Unknown - Past Medical History & Family History Past Medical History?: Yes - Past Social History Smoking Status: Heavy Smoker > 10 Cigarettes Daily - CARDIAC Hx Hypertension: Yes - PULMONARY Hx Chronic Obstructive Pulmonary Disease (COPD): Yes - NEUROLOGICAL Hx Neurological Disorder: No - HEENT Hx HEENT Problems: Yes ([place] left ear) Hx Cataracts: Yes - RENAL Hx Chronic Kidney Disease: No (HYDRONEPHROSIS) Hx Kidney Stones: Yes - ENDOCRINE/METABOLIC Hx Diabetes Mellitus Type 2: Yes - HEMATOLOGICAL/ONCOLOGICAL Hx Blood Disorders: Yes Hx Cancer: Yes (breast cancer left dx 06/2015) Hx Chemotherapy: Yes - INTEGUMENTARY Hx Dermatological Problems: Yes Other/Comment: multiple age spots to back, small white areas of skin to left arm , ble skin discolorations, reddened buttock and hard red areas of skin to lower r and left buttock,multiple scabs and dry discolored skin areas to both arms, poor hygeine dirty toes and elbows - MUSCULOSKELETAL/RHEUMATOLOGICAL Hx Arthritis: Yes Hx Back Pain: Yes (chronic) Hx Falls: Yes (past falls) - GASTROINTESTINAL Hx Gastrointestinal Disorders: Yes (esophagitis/ pelvic mass) Hx Gastroesophageal Reflux: Yes - GENITOURINARY/GYNECOLOGICAL Hx Genitourinary Disorders: Yes Hx Urinary Tract Infection: Yes - PSYCHIATRIC Hx Psychophysiologic Disorder: Yes Hx Anxiety: Yes Hx Substance Use: Yes - SURGICAL HISTORY Other/Comment: left breast bx 07/01/15, umbilical hernia repair, c section x 2 extopic , excision of abd tumor, rcw pac, umbilical hernia repair - ANESTHESIA Hx Anesthesia Reactions: No Hx Malignant Hyperthermia: No Meds Allergies/Adverse Reactions: Allergies Allergy/AdvReac Type Severity Reaction Status Date / Time levofloxacin [From Levaquin] Allergy SHORTNESS Verified 03/03/17 09:16 OF BREATH;PARANOID nystatin Allergy SWELLING Verified 03/03/17 09:16 - Medications Medications: Current Medications Azithromycin (Zithromax 500mg In Ns) 500 mg in 250 mls @ 167 mls/hr IVPB DAILY LUCIANO PRN Reason: Protocol Cefepime HCl (Maxipime 1gm) 1 gm in 100 mls @ 100 mls/hr IVPB DAILY LUCIANO PRN Reason: Protocol Vancomycin HCl (Vancomycin 1gm) 1 gm in 250 mls @ 167 mls/hr IVPB ONCE ONE PRN Reason: Protocol Stop: 03/04/17 11:29 Sodium Chloride (Sodium Chloride 0.9%) 2,000 mls @ 999 mls/hr IV .Q2H1M LUCIANO Last Admin: 03/03/17 11:58 Dose: 999 mls/hr Physical Exam - Constitutional Appears: Well, Non-toxic, No Acute Distress - Head Exam Head Exam: ATRAUMATIC - Eye Exam Eye Exam: Normal appearance - ENT Exam ENT Exam: Mucous Membranes Moist - Neck Exam Neck exam: Positive for: Normal Inspection - Respiratory Exam Respiratory Exam: NORMAL BREATHING PATTERN Additional comments: decreased breath sounds at the bases, wheezing - Cardiovascular Exam Cardiovascular Exam: REGULAR RHYTHM, +S1, +S2 - GI/Abdominal Exam GI & Abdominal Exam: Normal Bowel Sounds, Soft - Extremities Exam Extremities exam: Positive for: full ROM, pedal edema - Neurological Exam Additional comments: intubated, sedated Results - Vital Signs Recent Vital Signs: Last Vital Signs Temp 99.3 F 03/03/17 09:47 Pulse 110 H 03/03/17 10:12 Resp 14 03/03/17 10:12 BP 127/58 L 03/03/17 10:12 Pulse Ox 100 03/03/17 10:12 - Labs Result Diagrams: 03/03/17 09:05 03/03/17 09:05 Labs: Laboratory Results - last 24 hr 03/03/17 03/03/17 11:27 11:30 pCO2 58 H pO2 186.0 H HCO3 19.3 L ABG pH 7.13 L* ABG Total CO2 21.1 L ABG O2 Saturation 99.2 H ABG Base Excess -10.4 L ABG Potassium 4.2 Sodium 144.0 Chloride 116.0 H Glucose 137 H Lactate 0.5 L Mechanical Rate 14 FiO2 50.0 Tidal Volume 400 PEEP 5 Arterial Blood Potassium 4.2 Influenza Typ A,B (EIA) Negative for flu a/b Assessment & Plan - Assessment and Plan (Free Text) Assessment: 56yo female a/w hypacapnic resp failure COPD PNA UTI Hypercapnic Resp Failure - currently afebrile, HD stable, SBO 120-130s, intubated, comfortable - Exam intubated, sedated, lungs with decreased breath sounds at the bases, wheezing - CXR with RLL infiltrate, +UA - ABG with resp and metbaolic acidosis, ventilator adjusted accordingly - patient active smoker Recommend: Resp--cont with ventilator support, ABG with resp acidosis, increase RR to increase MV, repeat an ABG in 1 hour, IV steroids, IV ABx ID--broad spectrum Abx, Vanco, Cefepime, Azithro, Flu negative, panculture, check Urine culture, +UA, ID consult CV--hold BP meds for now, HD stable, obtain ECHO Heme--Anemia, HH at baseline, monitor HH Metabolic/Renal--ARF, IVF hydration Alimentary/GI--GI ppx Neuro--CT head negative GI ppx DVT ppx Full Code Critical care time 40 minutes
--- NOTE | 2017-03-03 12:28 | CT ---
PROCEDURE: HISTORY: r/o occult frx, report of recent l sdd trmtc pain COMPARISON: TECHNIQUE: FINDINGS: There is no evidence of acute fracture. Patient is status post ventral abdominal wall hernia repair. There is a Ray catheter in the bladder. No pelvic lymphadenopathy, mass or ascites observed. The bowel loops are unremarkable. IMPRESSION: No gross fracture
[2017-03-03] MEDS: Azithromycin 500MG/NS 250ml 500 MG/250 ML BAG IVPB SCH (12:37)
[2017-03-03] MEDS: Propofol 10 mg/ml 1,000 MG/100 ML VIAL IV PRN (12:42)
[2017-03-03] MEDS ORDERED: Pneumococcal 23-Valent Vaccine IM ONE (13:17)
[2017-03-03] MEDS ORDERED: Influenza Vaccine 60 mcg/0.5 mL SYR (4YR UP) IM ONE (13:17)
[2017-03-03 14:46] LABS: ABG MECHANICAL RATE 18; ARTERIAL BLOOD GAS HCO3 16.4 mmol/L (21-28); ATERIAL BLOOD GAS PEEP 5
[2017-03-03 14:49] LABS: ARTERIAL BLOOD GAS PH 7.18 (7.35-7.45)
[2017-03-03] MEDS: Albuterol-Ipratrop 3 mg / 0.5 (3 ml) UD IH SCH ×2 (14:54→20:31)
[2017-03-03] MEDS ORDERED: SODIUM BICARBONATE IV SCH (15:15)
[2017-03-03] MEDS ORDERED: SODIUM CHLORIDE 0.45% IV SCH (15:15)
--- NOTE | 2017-03-03 18:17 | CARD ---
APPROVED REPORT EKG Measurement Heart [id number] <Conclusion> Sinus tachycardia Otherwise normal ECG
[2017-03-03] MEDS ORDERED: Cefepime IV 2 gm in NS 2 GM/100 ML BAG IVPB SCH (22:00)
[2017-03-04] MEDS: Albuterol-Ipratrop 3 mg / 0.5 (3 ml) UD IH SCH ×6 (00:02→19:28)
[2017-03-04] MEDS: Propofol 10 mg/ml 1,000 MG/100 ML VIAL IV PRN ×2 (05:32→19:27)
[2017-03-04 06:02] LABS: BILIRUBIN,TOTAL 0.2 mg/dL (0.2-1.3); CALCIUM 7.9 mg/dL (8.4-10.5); POTASSIUM 4.4 mmol/L (3.6-5.0); TOTAL PROTEIN 5.4 g/dL (5.8-8.3)
[2017-03-04 06:12] LABS: BASO # 0.01 K/mm3 (0.0-2.0); BASO % 0.1 % (0.0-3.0); GRAN # 6.13 (1.4-6.5); GRAN % 87.7 % (50.0-68.0); LYMPH # 0.7 (1.2-3.4); LYMPH % 10.6 % (22.0-35.0); MEAN CELL VOLUME 93.5 fl (80.0-105.0); MEAN CORPUSCULAR HEMOGLOBIN 28.7 pg (25.0-35.0); MEAN CORPUSCULAR HGB CONC 30.7 g/dl (31.0-37.0); MEAN PLATELET VOLUME 9.8 fl (7.0-11.0); MONO # 0.1 (0.1-0.6); MONO % 1.6 % (1.0-6.0); RED CELL DISTRIBUTION WIDTH 15.2 % (11.5-14.5)
[2017-03-04 08:32] LABS: BASO # 0.01 K/mm3 (0.0-2.0); BASO % 0.1 % (0.0-3.0); GRAN # 8.6 (1.4-6.5); GRAN % 89.2 % (50.0-68.0); HEMATOCRIT 31.9 % (36.0-48.0); LYMPH # 0.8 (1.2-3.4); LYMPH % 8.1 % (22.0-35.0); MEAN CORPUSCULAR HEMOGLOBIN 28.3 pg (25.0-35.0); MEAN CORPUSCULAR HGB CONC 30.4 g/dl (31.0-37.0); MEAN PLATELET VOLUME 9.6 fl (7.0-11.0); MONO # 0.3 (0.1-0.6); MONO % 2.6 % (1.0-6.0); RED CELL DISTRIBUTION WIDTH 15.2 % (11.5-14.5); WHITE BLOOD COUNT 9.6 10^3/ul (4.5-11.0)
[2017-03-04] MEDS: Cefepime 1gm in NS 100ml 1 GM/100 ML BAG IVPB SCH (09:11)
[2017-03-04 09:51] LABS: ARTERIAL BLOOD GAS HCO3 17.6 mmol/L (21-28); ARTERIAL BLOOD GAS O2 CAPACITY 13.1 mL/dl (16-24); ARTERIAL BLOOD GAS O2 CONTENT 12.9 ML/dl (15-23); ARTERIAL BLOOD GAS PH 7.22 (7.35-7.45); ARTERIAL BLOOD HGB O2 SAT 95.9 % (95.0-98.0); CARBOXYHEMOGLOBIN 1.5 % (0.5-1.5); HHB 1.4 % (0-5); METHEMOGLOBIN 1.1 % (0.0-3.0)
[2017-03-04] MEDS ORDERED: Vancomycin 1gm in NS 250ml 1 GM/250 ML BAG IVPB ONE (10:00)
[2017-03-04] MEDS ORDERED: Vancomycin 500mg in NS 500 MG/100 ML BAG IVPB SCH (10:00)
[2017-03-04] MEDS: Azithromycin 500MG/NS 250ml 500 MG/250 ML BAG IVPB SCH (10:26)
--- NOTE | 2017-03-04 11:04 | RAD ---
HISTORY: PNA; f/u COMPARISON: 03/03/2017 FINDINGS: LUNGS: The patient is rotated to the right. There is a right lower lobe infiltrate and effusion. Left lung is clear. PLEURA: Right-sided effusion CARDIOVASCULAR: Normal. OSSEOUS STRUCTURES: No significant abnormalities. VISUALIZED UPPER ABDOMEN: Normal. OTHER FINDINGS: Endotracheal tube and right IJ line in satisfactory position IMPRESSION: Increasing right lower lobe infiltrate and effusion.
--- NOTE | 2017-03-04 11:48 | PN ---
DATE: 03/04/2017 CABIN CREW NOTE SUBJECTIVE: The patient is easily aroused on the ventilator and at this time, she is on CPAP with pressure support for weaning protocol. The patient is tolerating it well. No obvious respiratory distress. PHYSICAL EXAMINATION: VITAL SIGNS: Notes her temperature is 98.4, pulse is 90, BP is 108/40, and respirations are 17. HEENT: Head is atraumatic and normocephalic. Eyes; reactive to light. Ear, nose, and throat seemed to be within normal limits. NECK: Supple. No JVD. No thyroid enlargement. No lymph nodes. HEART: Has regular rate and rhythm. Normal S1 and S2. LUNGS: Revealed slight decreased breath sounds at the bases with occasional rhonchi. ABDOMEN: Soft and nontender. Decreased bowel sounds. GENITALIA AND RECTAL: Deferred. MUSCULOSKELETAL: No joint deformities. EXTREMITIES: Revealed trace lower extremity edema. NEUROLOGICAL: The patient is arousable and moving all extremities. LABORATORY DATA: As far as her laboratories: Her white count is 9.6, hemoglobin is 9.7, and hematocrit is 31.9 with platelets of 368,000. The patient's arterial blood gas is pending and her sodium is 145, her potassium was 4.4, chloride is 114, CO2 is 17 with BUN of 62, and creatinine of 2.0. Note that the patient's glucose is 199. As far as chest x-ray, it continues to show the right lower lobe opacity. IMPRESSION: As far as my impression, this patient has respiratory failure with hypercapnia and hypoxia. She has exacerbation of her chronic obstructive pulmonary disease, is noted to have chronic right lower lobe opacity on chest x-ray. The patient also presented with anemia with a history of breast carcinoma, on home oxygen. The patient has hypertension and does have a history of opioid abuse. Note that she does have respiratory failure on the ventilator support. PLAN: As far as our plan, we will continue with aggressive pulmonary toilet. The patient is on CPAP pressure support for vent weaning protocol. She is getting DuoNeb as a bronchodilator, as well as heparin subcu. The patient is on Maxipime as an antibiotic as well as Protonix. She is getting propofol for comfort and sedation and Solu-Medrol. We will continue with azithromycin as well. We will follow her chest x-ray and arterial blood gas and continue to treat aggressively along with the other consultants and a primary care doctor. Darian Tomlinson MD
--- NOTE | 2017-03-04 15:17 | CARD ---
APPROVED REPORT EKG Measurement Heart [id number] <Conclusion> Sinus tachycardia with premature atrial complexes Otherwise normal ECG
--- NOTE | 2017-03-04 15:20 | CON ---
DATE: 03/04/2017 HISTORY OF PRESENT ILLNESS: The patient is seen in bed in CCU 129, bed 5. Respiratory failure, intubated on ventilator. This is a 56-year-old female with a history of end-stage COPD, history of breast cancer, diabetes mellitus, hypertension, history of Enterococcus urinary tract infection, Carmen esophagitis, history of bladder surgery, and spine surgery who is ALLERGIC TO LEVAQUIN AND NYSTATIN, who was admitted in the emergency room with hypercapnic respiratory failure and urosepsis, was intubated on ventilator now in the Intensive Care Unit. Infectious Disease consult requested for antibiotics. REVIEW OF SYSTEMS: Reveals the patient has low-grade fever and has shortness of breath and cough. No abdominal pain, diarrhea, or constipation reported. PAST MEDICAL HISTORY: Significant for end-stage COPD, Carmen esophagitis, diabetes mellitus, hypertension, breast cancer, urinary tract infection with Enterococcus and recent hospitalization. PAST SURGICAL HISTORY: Significant for bladder surgery and spine surgery. ALLERGIES: THE PATIENT IS ALLERGIC TO LEVAQUIN AND NYSTATIN. MEDICATIONS: At [facility] reveals the patient to have a statin, prednisone, oxycodone, and nicotine. PHYSICAL EXAMINATION: GENERAL: The patient is in bed in no acute distress. VITAL SIGNS: Temperature of 99.9, respiratory rate on the vent, heart rate of 92, and blood pressure is 108/40. HEENT: ET tube is in place. NECK: Supple. LUNGS: Decreased breath sounds. HEART: Normal S1 and S2. ABDOMEN: Soft and nontender. No rebound or guarding. LABORATORY DATA: Reveals the patient has white count of 12,500, hemoglobin of 11, and 76% granulocytosis. Coagulation is noted, BUN of 60 and creatinine of 2.2, creatinine in 02/01/2017 was 1.7. AST is 40. BNP is 1510. Urinalysis reveals many wbcs and many bacteria. Toxicology reveals urine opiate screen to be positive. Influenza is negative. Chest x-ray is noted to have an infiltrate. ASSESSMENT AND PLAN: A 56-year-old female known to me from previous admission with an end-stage chronic obstructive pulmonary disease, diabetes mellitus, and hypertension with breast cancer, with recent hospitalization with severe sepsis, respiratory failure intubated on ventilatory secondary to healthcare-associated pneumonia with acute kidney injury and urine is also a source of infection and currently, we will treat the patient with vancomycin, cefepime, and azithromycin, pending blood, urine, and sputum culture, and gram stain. The patient did have procalcitonin of 0.45. We will make further recommendations initial workup results and we will follow with you. Prasanth Malcolm MD
[2017-03-04] MEDS: Acetylcysteine 20% Inhal Soln (4ml) IH SCH (16:24)
[2017-03-05] MEDS: Acetylcysteine 20% Inhal Soln (4ml) IH SCH ×3 (00:22→15:13)
[2017-03-05] MEDS: Albuterol-Ipratrop 3 mg / 0.5 (3 ml) UD IH SCH ×5 (00:22→15:13)
[2017-03-05 06:22] LABS: GRAN # 7.49 (1.4-6.5); GRAN % 90.3 % (50.0-68.0); HEMATOCRIT 28.2 % (36.0-48.0); LYMPH # 0.5 (1.2-3.4); LYMPH % 6.3 % (22.0-35.0); MEAN CELL VOLUME 92.8 fl (80.0-105.0); MEAN CORPUSCULAR HEMOGLOBIN 28.9 pg (25.0-35.0); MEAN CORPUSCULAR HGB CONC 31.2 g/dl (31.0-37.0); MEAN PLATELET VOLUME 9.6 fl (7.0-11.0); MONO # 0.3 (0.1-0.6); MONO % 3.4 % (1.0-6.0); PLATELET COUNT 333 10^3/uL (120.0-450.0); RED CELL DISTRIBUTION WIDTH 15.6 % (11.5-14.5); WHITE BLOOD COUNT 8.3 10^3/ul (4.5-11.0)
[2017-03-05 06:29] LABS: ALB/GLOB RATIO 1.1 (1.1-1.8); BILIRUBIN,TOTAL 0.2 mg/dL (0.2-1.3); CALCIUM 8.4 mg/dL (8.4-10.5); POTASSIUM 4.1 mmol/L (3.6-5.0); TOTAL PROTEIN 5.6 g/dL (5.8-8.3)
[2017-03-05 08:55] LABS: ARTERIAL BLOOD GAS HCO3 17.5 mmol/L (21-28); ARTERIAL BLOOD GAS O2 CAPACITY 12.9 mL/dl (16-24); ARTERIAL BLOOD GAS O2 CONTENT 12.7 ML/dl (15-23); ARTERIAL BLOOD GAS PH 7.25 (7.35-7.45); ARTERIAL BLOOD HGB O2 SAT 96.4 % (95.0-98.0); CARBOXYHEMOGLOBIN 1.4 % (0.5-1.5); HHB 1.3 % (0-5); METHEMOGLOBIN 0.9 % (0.0-3.0)
[2017-03-05 09:16] LABS: ANISOCYTOSIS 1+; BAND 2 % (0-2); NEUTROPHIL 86 % (50.0-70.0); PLATELET ESTIMATE NORMAL (NORMAL); POIKILOCYTOSIS 1+
[2017-03-05] MEDS: Azithromycin 500MG/NS 250ml 500 MG/250 ML BAG IVPB SCH (09:16)
--- NOTE | 2017-03-05 10:27 | PN ---
DATE: 03/05/2017 SUBJECTIVE: The patient is in bed in no acute distress, nontoxic. Remains intubated on a ventilator. PHYSICAL EXAMINATION: VITAL SIGNS: Temperature is 98, blood pressure is 115/50, respiratory rate on the vent, and heart rate of 90. HEENT: Unremarkable. ET tube is in place. NECK: Supple. LUNGS: Have decreased breath sounds. HEART: Normal S1 an d S2. ABDOMEN: Soft and nontender. LABORATORY EXAMINATION: Reveals the patient's white count is 8.3, hemoglobin of 8, and platelets of 333. Chemistries reveals a BUN of 69, creatinine of 1.99, and AST is 60. Procalcitonin is 0.45. Urinalysis is noted and influenza is negative. Blood cultures are negative. Urine cultures are negative. Sputum cultures are pending. Review of orders reveals the patient to be on cefepime and azithromycin. ASSESSMENT AND PLAN: This is a 56-year-old female seen in the Coronary Care Unit 129, bed 5 with respiratory failure intubated on a ventilator with end stage chronic obstructive lung disease, history of breast cancer, diabetes, hypertension, history of Enterococcus urinary tract infection, and uazir esophagitis. On this admission, the patient has severe sepsis, respiratory failure intubated on a ventilator with healthcare-associated pneumonia with acute kidney injury, awaiting for final culture results, although the procalcitonin is normal and blood cultures are thus far negative and urine cultures negative, on day number 2 of cefepime and azithromycin. . We will follow closely with you. Prasanth Malcolm MD
--- NOTE | 2017-03-05 10:37 | RAD ---
HISTORY: ET/NGT placement, F/U Right infiltrate/effusion COMPARISON: 03/04/2017 FINDINGS: LUNGS: There is some improvement in the right lower lobe infiltrate and effusion. Central lines and tubes in satisfactory position PLEURA: No significant pleural effusion identified, no pneumothorax apparent. CARDIOVASCULAR: Normal. OSSEOUS STRUCTURES: No significant abnormalities. VISUALIZED UPPER ABDOMEN: Normal. OTHER FINDINGS: None. IMPRESSION: There is some improvement in the right lower lobe infiltrate and effusion. Central lines and tubes in satisfactory position
--- NOTE | 2017-03-05 11:49 | PN ---
DATE: 03/05/2017 ACTION INSTALLER NOTE SUBJECTIVE: The patient is resting on a ventilator with mild sedation and no significant change. The patient has FiO2 of 40%. She will have weaning CPAP trial today. PHYSICAL EXAMINATION: VITAL SIGNS: Her temperature is 97.8, her pulse is 87, respirations are 21 and blood pressure is 115/58. SKIN: Warm and dry. HEENT: Head is atraumatic and normocephalic. Eyes are reactive to light. Ears, nose, and throat seem to be within normal limits. NECK: Supple. No JVD. No thyroid enlargement. No lymph nodes. HEART: Has a regular rate and rhythm. Normal S1 and S2. LUNGS: Reveal decreased breath sounds at the bases, occasional rhonchi. ABDOMEN: Soft, decreased bowel sounds. GENITALIA: Deferred. RECTAL: Deferred. MUSCULOSKELETAL: No joint deformities. EXTREMITIES: Reveal trace lower extremity edema. NEUROLOGIC: She is sedated on the ventilator. LABORATORY DATA: Her white count is 8.3, hemoglobin is 8.8, hematocrit 28.2 with platelets of 333,000. As far as her arterial blood gas this morning, it reads pH is 7.25, PCO2 of 40, PO2 of 113, this is on 40% FiO2. Sodium is 148, potassium 4.1, chloride 116, CO2 of 19 with a BUN of 69, creatinine 1.9, glucose of 241. IMPRESSION: This patient has respiratory failure with hypercapnia and hypoxia. She has an exacerbation of her chronic obstructive pulmonary disease with noted chronic right lower lobe opacity on chest x-ray. The patient has anemia and has a history of breast carcinoma and is home oxygen dependent. She has hypertension and has a history of opioid abuse. The patient is vent dependant and with an FiO2 of 40%. PLAN: We will continue with ventilator support. Continue to try weaning protocols. The patient is on DuoNeb, bronchodilators, heparin subcutaneous as well as Maxipime, Protonix and Solu-Medrol. She is also getting antibiotics azithromycin and we will continue to treat aggressively along with other consultants and primary care doctor. Darian Tomlinson MD
[2017-03-05] MEDS: Propofol 10 mg/ml 1,000 MG/100 ML VIAL IV PRN (18:20)
[2017-03-06] MEDS: Propofol 10 mg/ml 1,000 MG/100 ML VIAL IV PRN ×2 (00:16→03:09)
[2017-03-06] MEDS: Acetylcysteine 20% Inhal Soln (4ml) IH SCH ×4 (00:19→23:35)
[2017-03-06] MEDS: Albuterol-Ipratrop 3 mg / 0.5 (3 ml) UD IH SCH ×8 (00:20→23:35)
--- NOTE | 2017-03-06 00:45 | PN ---
DATE: 03/05/2017 SUBJECTIVE: A 56-year-old female, she remains on the vent, and she seems in no distress. The patient is not because of her bicarbs still in the low side. She does have bicarb of 19 and still remain on the vent at this time. Also clinically stable, but we will start weaning her in the morning. She currently in 40% of FiO2 and she is getting IMV. PHYSICAL EXAMINATION: VITAL SIGNS: As follows; on 03/05/2017, her temperature is 98, heart rate 85, respirations 18, saturating 100%, mechanical ventilator and blood pressure 98/48. HEAD AND NECK: Normal. No JVD. No thyromegaly. CHEST: Clear. CARDIAC: First sound and second sound normal. ABDOMEN: Soft and nontender. EXTREMITIES: No edema. NEUROLOGIC: The patient move all extremities and she is able to communicate by writing on a piece of paper. LABORATORY DATA: Sodium 148, potassium 4.1, chloride 116, and bicarb 19. The patient also have BUN 69 and creatinine of 1.9. Her blood sugars start going up . CBC shows white count 8.3, hemoglobin 8.8, hematocrit 28.2, and platelets 333. IMPRESSION AND PLAN: 1. Acute respiratory failure secondary to acute chronic obstructive pulmonary disease exacerbation and right lower lobe pneumonia. Continue ventilator support. We will discuss with Dr. Darian Tomlinson, apparel stock checker on the case, he will start weaning in the morning. We will consider pulmonary consult, Dr. Rucker for further evaluation of a pneumonia and right pleural effusions in impressions of breast cancer also. 2. Diabetes. The patient is not getting any feeding. We will put the patient on insulin coverage. The patient have steroids for underlying chronic obstructive pulmonary disease, which make her sugars start going up. We will put the patient on insulin coverage protocol. 3. Chronic back pain, chronic osteoarthritis, and chronic anxiety. We will consider putting the patient on pain medications. At this time, the patient seems comfortable. She is not complaining of any pain. We will hold off on any of these medicines. Continue gastrointestinal and deep venous thrombosis prophylaxis. The patient otherwise stable. She is getting heparin. She is getting Maxipime and cefepime. She is on Diprivan small dose, Mucomyst, Protonix 40, bicarbonate IV, Solu-Medrol 60 IV q.8 hours, Xanax 0.25 through the nasogastric tube was being given every 8 hours, and also Zithromax. Continue current therapy. Followup clinically. Sloan Sosa MD
--- NOTE | 2017-03-06 04:44 | HP ---
DATE: 03/04/2017 REASON FOR ADMISSION: Respiratory failure. HISTORY OF PRESENT ILLNESS: A 56-year-old female has severe COPD, oxygen dependent; history of breast CA, brought in by ambulance because of acute respiratory distress. The patient does have nebulizer machine at home, oxygen at home, seemed to got worse, conditions of breathing got worse, called in emergency service. They brought her to the ER. While on her way to the ER, she got worse, got obtunded, and ACLS protocol was obtained, and the patient was intubated. The patient came into the ER, chest x-ray shows right lower lobe pneumonia and pleural effusion, read the x-ray, and the patient was admitted to ICU. There is infiltrate at the right lung base. PAST MEDICAL HISTORY: As I mentioned before, she has COPD, oxygen dependent. She is a chronic smoker. She still smokes. She has cut down from 3 packs to, maybe, 1 pack. She was advised not to smoke several times. She has breast cancer, which is treated with radiation and being treated by chemo currently. She is also diabetic, insulin dependent. She has history of COPD, anxiety on Xanax. ALLERGIES: LEVOFLOXACIN AND NYSTATIN. REVIEW OF SYSTEMS: Chronic cough, chronic dyspnea, chronic anxiety, chronic osteoarthritis, back pain. PHYSICAL EXAMINATION: GENERAL: The patient was in the unit intubated, also initially, she was appalled in the ICU. She is on a vent, 40% FiO2, saturating in the upper 90s, and she seems comfortable on the vent, in no distress. HEAD AND NECK: No JVD. CHEST: Clear, a few wheeze. CARDIOPULMONARY: First and second sounds normal. ABDOMEN: Soft and nontender. EXTREMITIES: No edema. NEUROLOGIC: Normal, she is alert, she moves all extremities, she follows commands, she recognized me. LABORATORY DATA: On 03/04, her laboratory studies show white count 9.6, hemoglobin 9.7, hematocrit 31.9, platelets 368. Chemistry noted for sodium 145, potassium 4.4, chloride 114, bicarbonate 17 which came down from 24. Her BUN is 62, creatinine is 2, it came down from creatinine 2.4. Her blood sugar is 199. Her calcium is 7.9. Her AST is 60, ALT 37, and alkaline phosphatase is 85. The patient's troponin was negative. Her proBNP was 1510. EKG shows sinus tachycardia with premature atrial contractions. Chest x-ray shows ET tube in the satisfactory positions in the main bronchus, 2 cm away from gen, with right lower lobe infiltrate. IMPRESSION AND PLAN: 1. A 56-year-old female came in with acute respiratory distress, was intubated, found to have pneumonia. The patient has known chronic obstructive pulmonary disease. The patient admitted with respiratory failure due to acute chronic obstructive pulmonary disease exacerbation and pneumonia. We will keep the patient in a vent for now. She clinically seems stable. We will leave that to the party host for extubation whenever possible. The patient has metabolic acidosis, and we will continue to monitor. 2. As I mentioned, chronic obstructive pulmonary disease. Continue Solu-Medrol, inhaled bronchodilators. 3. The patient does have a history of chronic anxiety, chronic back pain. We will resume dosage of Xanax if needed and when she gets over the vent probably. She seems stable now mentally, she is not agitated, and tolerating the vent well. 4. History of breast cancer, stable. 5. Acute renal failure, does have history of chronic renal failure, creatinine is 1.7-1.8 ranging that range. Seen by Dr. Hurd. We will consider renal consult, continue current therapy, follow up with party host. Sloan Sosa MD
[2017-03-06 05:55] LABS: GRAN # 5.73 (1.4-6.5); GRAN % 91.5 % (50.0-68.0); HEMATOCRIT 29.5 % (36.0-48.0); LYMPH # 0.3 (1.2-3.4); LYMPH % 5.3 % (22.0-35.0); MEAN CELL VOLUME 93.4 fl (80.0-105.0); MEAN CORPUSCULAR HEMOGLOBIN 28.2 pg (25.0-35.0); MEAN CORPUSCULAR HGB CONC 30.2 g/dl (31.0-37.0); MEAN PLATELET VOLUME 9.4 fl (7.0-11.0); MONO # 0.2 (0.1-0.6); MONO % 3.2 % (1.0-6.0); RED CELL DISTRIBUTION WIDTH 15.7 % (11.5-14.5); WHITE BLOOD COUNT 6.3 10^3/ul (4.5-11.0)
[2017-03-06 07:08] LABS: ALB/GLOB RATIO 1.2 (1.1-1.8); BILIRUBIN,TOTAL 0.2 mg/dL (0.2-1.3); CALCIUM 8.2 mg/dL (8.4-10.5); TOTAL PROTEIN 5.7 g/dL (5.8-8.3)
[2017-03-06] MEDS: Cefepime 1gm in NS 100ml 1 GM/100 ML BAG IVPB SCH (09:07)
[2017-03-06] MEDS: Azithromycin 500MG/NS 250ml 500 MG/250 ML BAG IVPB SCH (09:41)
[2017-03-06] MEDS ORDERED: Sodium Chloride 0.45% 1,000 ML IV SCH (10:00)
--- NOTE | 2017-03-06 10:13 | CP.PCM.PN ---
Subjective - Date & Time of Evaluation Date of Evaluation: 03/06/17 Time of Evaluation: 07:00 - Subjective Subjective: Pt seen and examined, reported no major complaints. Placed on CPAP trial, off sedation, tolerated well for 1 hour, extubated, doing well on 2LNC. Objective - Vital Signs/Intake and Output Vital Signs (last 24 hours): Temp Pulse Resp BP Pulse Ox 97.8 F 78 18 116/51 L 99 03/06/17 04:00 03/06/17 06:00 03/06/17 06:00 03/06/17 06:00 03/06/17 06:00 Intake and Output: 03/06/17 03/06/17 06:59 18:59 Intake Total 1170.0 90 Output Total 1000 Balance 170.0 90 - Medications Medications: Current Medications Acetylcysteine (Acetylcysteine 20%) 4 ml IH Q8 LUCIANO Last Admin: 03/06/17 08:37 Dose: 4 ml Albuterol/Ipratropium (Duoneb 3 Mg/0.5 Mg (3 Ml) Ud) 3 ml IH [id number] [facility]CIANO Last Admin: 03/06/17 08:37 Dose: 3 ml Alprazolam (Xanax) 0.25 mg NG Q12 [facility]CIANO PRN Reason: Protocol Stop: 03/11/17 10:16 Last Admin: 03/06/17 09:04 Dose: 0.25 mg Heparin Sodium (Porcine) (Heparin) 5,000 units SC Q12 [facility]CIANO PRN Reason: Protocol Last Admin: 03/06/17 09:05 Dose: 5,000 units Azithromycin (Zithromax 500mg In Ns) 500 mg in 250 mls @ 167 mls/hr IVPB DAILY [facility]O PRN Reason: Protocol Last Admin: 03/06/17 09:41 Dose: 167 mls/hr Cefepime HCl (Maxipime 1gm) 1 gm in 100 mls @ 100 mls/hr IVPB DAILY [facility] PRN Reason: Protocol Last Admin: 03/06/17 09:07 Dose: 100 mls/hr Propofol (Diprivan) 1,000 mg in 100 mls @ 2.041 mls/hr IV .Q24H PRN; Protocol; 5 MCG/KG/MIN PRN Reason: TITRATE PER MD ORDER Last Titration: 03/06/17 07:52 Dose: 0 mcg/kg/min, 0 mls/hr Sodium Chloride (Sodium Chloride 0.45%) 1,000 mls @ 75 mls/hr IV .[id number] [facility] Methylprednisolone (Solu-Medrol) 40 mg IV Q12 [facility] Nicotine (Nicoderm Cq) 1 patch TD DAILY [facility] Last Admin: 03/06/17 09:05 Dose: 1 patch Pantoprazole Sodium (Protonix Inj) 40 mg IVP DAILY [facility] Last Admin: 03/06/17 09:05 Dose: 40 mg - Labs Labs: 03/06/17 05:40 03/06/17 05:40 PT 14.7 SECONDS (9.4-12.5) H 03/03/17 09:05 INR 1.33 (0.93-1.08) H 03/03/17 09:05 APTT 44.5 Seconds (25.1-36.5) H 03/03/17 09:05 - Constitutional Appears: Well, Non-toxic, No Acute Distress - Eye Exam Eye Exam: Normal appearance - ENT Exam ENT Exam: Mucous Membranes Moist - Respiratory Exam Respiratory Exam: Clear to Ausculation Bilateral, NORMAL BREATHING PATTERN - Cardiovascular Exam Cardiovascular Exam: REGULAR RHYTHM, +S1, +S2 - GI/Abdominal Exam GI & Abdominal Exam: Soft, Normal Bowel Sounds - Extremities Exam Extremities Exam: Normal Inspection - Neurological Exam Neurological Exam: Alert, Awake, Oriented x3 Assessment and Plan - Assessment and Plan (Free Text) Assessment: 56yo female a/w resp failure, PNA Resp Failure, s/p extubation PNA UTI Hx of COPD on home O2 COPD exacerbation Metabolic Acidosis - currently afebrile, HD stable, comfortable on 2LNC, extubated this morning, doing well - labs noted, bicarb 24 today, Na 151 - awake, alert, no major complaints Recommend: - supp o2 as needed - antibiotics as per ID - DC bicarb drip - start 1/2NS @ 75cc/hr - taper IV steroids - resume diet - DC navjot Pan Pulmicort - BP control - Pain control - GI ppx - DVT ppx - Stable, monitor in MICU
--- NOTE | 2017-03-06 12:39 | PN ---
DATE: 03/06/2017 SUBJECTIVE: The patient is in bed, in no acute distress, remains intubated on a ventilator. She had an uneventful night and she did have a period of hypotension. PHYSICAL EXAMINATION: VITAL SIGNS: On exam, temperature is 97 and blood pressure is 128/54. Respiratory rate on a vent and heart rate of 83. HEENT: Examination of HEENT reveals ET tube is in place. NECK: Supple. LUNGS: Have decreased breath sounds. HEART: Normal S1 and S2. GASTROINTESTINAL: Abdominal examination is soft and nontender. LABORATORY DATA: Laboratory examination reveals a white count of 6.3, hemoglobin of 8, and platelets of 344. Chemistries are noted to be 66 BUN and creatinine of 1.4. Blood cultures are negative. Urine cultures are negative. Naris is not infected. ET tubes and sputum cultures are pending. Review of orders reveals that the patient to be on Solu-Medrol, IV azithromycin and cefepime and the patient's procalcitonin is reported to be 0.45. ASSESSMENT AND PLAN: This is a 56-year-old female seen with coronary artery disease and respiratory failure intubated on a ventilator, end-stage chronic obstructive lung disease, history of breast cancer, diabetes, hypertension, history of Enterococcus urinary tract infection, and Carmen esophagitis admitted with severe sepsis, respiratory failure intubated on a ventilator with healthcare-associated pneumonia, acute kidney injury, negative procalcitonin and cultures negative on cefepime and Zithromax. We will follow closely with you. The patient has significant metabolic acidosis, day before yesterday . We will follow with you. Prasanth Malcolm MD
[2017-03-06] MEDS: Oxycodone/Acetaminophen 5/325 mg Tab PO PRN (21:23)
[2017-03-06] MEDS: MethylPREDNISolone 40 mg Vial IV SCH (22:24)
[2017-03-07] MEDS: Oxycodone/Acetaminophen 5/325 mg Tab PO PRN ×3 (03:39→21:19)
[2017-03-07] MEDS: Albuterol-Ipratrop 3 mg / 0.5 (3 ml) UD IH SCH ×5 (04:42→20:49)
[2017-03-07 05:07] LABS: ARTERIAL BLOOD GAS HCO3 23.1 mmol/L (21-28); ARTERIAL BLOOD GAS O2 CONTENT 11.8 ML/dl (15-23); ARTERIAL BLOOD GAS PH 7.24 (7.35-7.45); ARTERIAL BLOOD HGB O2 SAT 88.2 % (95.0-98.0); CARBOXYHEMOGLOBIN 1.5 % (0.5-1.5); HHB 8.9 % (0-5); METHEMOGLOBIN 1.3 % (0.0-3.0)
[2017-03-07 05:46] LABS: HEMATOCRIT 30.4 % (36.0-48.0); MEAN CELL VOLUME 94.7 fl (80.0-105.0); MEAN CORPUSCULAR HEMOGLOBIN 28.7 pg (25.0-35.0); MEAN CORPUSCULAR HGB CONC 30.3 g/dl (31.0-37.0); RED CELL DISTRIBUTION WIDTH 15.8 % (11.5-14.5); WHITE BLOOD COUNT 8.6 10^3/ul (4.5-11.0)
[2017-03-07 06:22] LABS: ALB/GLOB RATIO 1.2 (1.1-1.8); BILIRUBIN,TOTAL 0.2 mg/dL (0.2-1.3); CALCIUM 7.8 mg/dL (8.4-10.5); POTASSIUM 4.3 mmol/L (3.6-5.0)
[2017-03-07] MEDS: Acetylcysteine 20% Inhal Soln (4ml) IH SCH ×2 (07:20→16:00)
[2017-03-07] MEDS ORDERED: Insulin Reg-HIGH-Coverage SC SCH (07:30)
[2017-03-07] MEDS ORDERED: Insulin Regular 1 UNITS/0.01 ML ML SC ONE (07:50)
[2017-03-07] MEDS: Insulin Reg-MEDIUM-Coverage SC SCH ×4 (08:24→22:04)
[2017-03-07] MEDS: MethylPREDNISolone 40 mg Vial IV SCH ×2 (10:18→21:20)
[2017-03-07] MEDS: Insulin Detemir 100 units/ml Vial (Levemir) SC SCH ×2 (11:17→18:06)
[2017-03-07] MEDS: Cefepime 1gm in NS 100ml 1 GM/100 ML BAG IVPB SCH (11:17)
[2017-03-07] MEDS: Azithromycin 500MG/NS 250ml 500 MG/250 ML BAG IVPB SCH (11:43)
--- NOTE | 2017-03-07 11:46 | PN ---
DATE: 03/06/2017 SUBJECTIVE: The patient extubated today, seems comfortable. No distress. Tolerating oxygen nebulizers, saturating above 90%, 93%, 94% seems doing well. No fever. She has some cough and some rhonchi, status post extubation. PHYSICAL EXAMINATION: VITAL SIGNS: On 03/06/2017, the temperature is 98.2, heart rate 103, blood pressure 133/66, saturating 94%, respiratory rate in the 32. HEAD AND NECK: Normal. No JVD. No thyromegaly. CHEST: Reveals bilateral mild wheeze. CARDIAC: First sound, second sound normal. ABDOMEN: Soft, nontender. EXTREMITIES: There is no edema. NEUROLOGIC: Normal. LABORATORY DATA: White count 6.3, hemoglobin 8.9, hematocrit 29.5, platelets 344. Chemistry shows sodium 151, potassium 4, chloride 117, bicarb 24, BUN 66, creatinine 1.4, blood sugar is start going up to 260. The time is normal. IMPRESSION AND PLAN: 1. Acute respiratory failure secondary to chronic obstructive pulmonary disease, pneumonia, status post extubation, doing well. Continue inhaled and IV bronchodilators and continue IV antibiotics. 2. Diabetes. We will resume insulin and we will increase high-dose coverage. Continue current therapy. 3. Pneumonia. Continue Zithromax IV and hydralazine and we will follow up clinically. 4. Chronic anxiety, chronic back pain, resume her oxycodone and Xanax p.r.n. Continue Mucomyst. Continue current therapy. Gastrointestinal and deep venous thrombosis prophylaxis. The patient is getting heparin subcutaneous 5000 q. 12 hours and she is getting Protonix 40 IV daily. Continue current therapy. We will follow up clinically. Sloan Sosa MD
[2017-03-07] MEDS: Insulin Lispro 1 UNITS/0.01 ML SC SCH ×2 (11:50→18:07)
--- NOTE | 2017-03-07 12:59 | CON ---
DATE: 03/06/2017 PULMONARY CONSULT REQUESTING PHYSICIAN: Dr. Sosa. REASON FOR CONSULT: Chronic obstructive lung disease. HISTORY OF PRESENT ILLNESS: This is a 56-year-old female with past medical history significant for chronic obstructive lung disease, active smoker, noncompliant with followup, oxygen dependent, history of breast cancer, diabetes, recurrent UTI, anxiety disorder, history of renal failure, came in with cough, shortness of breath, ended up on ventilator, presently liberated from ventilator, lying in the bed. Has cough, shortness of breath. No nausea. No vomiting. No diarrhea. PAST MEDICAL HISTORY: As per history of present illness. ALLERGIES: TO LEVAQUIN AND A STATIN. SOCIAL HISTORY: Active smoker. Not any alcohol use. FAMILY HISTORY: Significant for chronic lung disease, diabetes. MEDICATIONS: She is on Mucomyst 20% inhaled q.8 hour, Diprivan had been discontinued, DuoNeb q.4 hour, heparin 5000 units subcu q.12 hour, cefepime 1 g daily, NicoDerm patch daily, Percocet 5/325 one tablet q.6 hour p.r.n., Protonix 40 mg daily, Solu-Medrol 40 mg q.12 hour, Xanax 0.5 mg 4 times a day, Zithromax 500 mg daily. REVIEW OF SYSTEMS: No headache, no rhinitis. Has a cough, sputum production, shortness of breath. No nausea. No vomiting. No diarrhea. No leg pain or leg swelling. PHYSICAL EXAMINATION: GENERAL: Sitting up in bed, having dinner. VITAL SIGNS: Temperature is 98, heart rate is 103, respiratory rate is 30, blood pressure 133/66, pulse ox 94% on nasal cannula. HEENT: Moist mucous membranes. Crowded airway. Mallampati score is IV. NECK: Supple. No JVD. LUNGS: Bilateral wheezing, scattered rhonchi. HEART: S1, S2. ABDOMEN: Soft, nontender. No organomegaly. EXTREMITIES: There is no edema. NEUROLOGIC: Awake, alert, follows simple commands. DATA: Shows hemoglobin 8.9, hematocrit 29.5, WBC 6.3, platelet count is 344. Sodium 151, potassium 4.0, chloride 117, bicarbonate 24, BUN 66, creatinine 1.4, glucose 264, calcium 8.2, AST 23, ALT 31, alk phos is 70. Albumin is 3.1. Drug screen positive for opiates and benzodiazepines. Influenza A and B have been negative. Blood culture has been negative. Sputum culture, there is no growth. Chest x-ray done yesterday shows some improvement in the right lower lobe infiltrate and effusion. IMPRESSION AND PLAN: Chronic obstructive lung disease with respiratory failure, active smoker, has pneumonia, diabetes, chronic pain syndrome. The patient has been followed by Infectious Diseases. Continue antibiotics. Continue intravenous bronchodilator, add inhaled bronchodilator, gastric prophylaxis, deep venous thrombosis prophylaxis. Aspiration precaution. Out of bed to chair. Start physical therapy. The patient is asked to stop smoking. Thank you and we will follow with you. Lisa Rucker MD
--- NOTE | 2017-03-07 13:24 | PN ---
DATE: 03/07/2017 SUBJECTIVE: The patient is in bed, was seen earlier today. The patient is extubated and doing well, comfortable. PHYSICAL EXAMINATION: VITAL SIGNS: On exam, temperature is 98, blood pressure is 150/60, and respiratory rate of 18. HEENT: Examination of HEENT is unremarkable. NECK: Supple. LUNGS: Have decreased breath sounds. CARDIOVASCULAR: Heart exam is normal S1 and S2. GASTROINTESTINAL: Abdominal examination is soft and nontender. No rebound or guarding. LABORATORY DATA: Laboratory examination reveals a white count of 8.6, hemoglobin of 9, and platelets of 352. Chemistries reveals a BUN of 62, and creatinine of 1.6. Procalcitonin is noted at 0.45. Urinalysis is noted. Influenza is negative. Microbiology reveals the blood cultures are negative. Urine cultures are negative. Naris MRSA is negative. ASSESSMENT AND PLAN: This is a 56-year-old female who was seen with coronary artery disease, respiratory failure intubated on a ventilator, end-stage chronic obstructive lung disease, history of breast cancer, diabetes, hypertension, history of Enterococcus urinary tract infection, and Carmen esophagitis, admitted with severe sepsis, respiratory failure on a ventilator with healthcare-associated pneumonia with acute kidney injury, negative procalcitonin and negative cultures, now extubated and comfortable. We will discontinue the cefepime and discontinue the intravenous Zithromax and switch that to n.p.o. Zithromax at 250 mg once daily. We will follow closely with you. The patient is at risk for developing nosocomial infections. Prasanth Malcolm MD
--- NOTE | 2017-03-07 18:59 | PN ---
SUBJECTIVE: The patient is currently seen by me on 3R. She was transferred out of the unit. She was extubated. Her breathing status appears to have improved. She was seen by my partner Dr. Hurd yesterday. The dictation of the initial consultation is pending at the time of this dictation. MEDICATIONS Medication list reviewed. The patient is on acetylcysteine, DuoNeb, heparin, Humalog, Levemir, Nicoderm, Percocet, Protonix, Solu-Medrol, Xanax and Zithromax. OBJECTIVE GENERAL; Intake/output. Intake 750, output 750. VITAL SIGNS: Blood pressure is 150/62, pulse is 101, temperature is 98.3, respiratory rate is 21. Patient remains on oxygen by nasal cannula. HEENT: Shows her to be normocephalic, atraumatic. Conjunctivae are pale. Sclerae nonicteric. NECK: Supple. No neck vein distention. CHEST: Scattered rhonchi with rales, right base. No wheezing. CARDIOVASCULAR: Shows a regular rate and rhythm without murmurs, rubs or gallops. ABDOMEN: Soft. Bowel sounds normal. No rebound or guarding. No masses. EXTREMITIES: Show no lower extremity cyanosis, clubbing or edema. LABORATORY DATA AND IMAGING STUDIES: Admitting chest x-ray showed a right lower lobe infiltrate. CBC, white blood cell count down from 12.5 to 8.6, hemoglobin down from 11.4 to 9.2. Platelet count is 254,000. Blood gas today showed a pH of 7.24 with a pO2 of 56 and pCO2 of 54. Chemistries today showed normal electrolytes. Slight elevation of chloride to 109, CO2 is improved from 17 to 24. Sodium is down from 151 to 144. BUN has increased from her baseline levels of 36 to 42 up to 62. Her creatinine has fallen from 2.4 to 1.6. Her baseline is in the 1.6 to 1.7 range consistent with chronic kidney disease stage III. Urine show 2+ protein, positive white blood cells, positive red blood cells. Microbiology, urine cultures were negative. Blood cultures are negative at 4 days. Sputum cultures were negative. MRSA was negative. ASSESSMENT 1. Acute renal failure superimposed on chronic kidney disease stage III. This is likely all steroid effect at this point in time as her BUN is elevated but her creatinine has fallen back to baseline levels. 2. History of chronic obstructive pulmonary disease. Patient continues to smoke one pack of cigarettes per day despite being told to discontinue cigarettes completely. 3. History of respiratory failure with a right lower lobe infiltrate consistent with pneumonia. The patient is currently on antibiotics and is being followed by pulmonary and ID. 4. History of breast cancer, stable. 5. History of insulin-dependent diabetes mellitus. Patient's glucose control is not acceptable. She is on sliding scale insulin along with long-acting insulin. 6. History of atherosclerotic heart disease, currently stable. 7. History of metabolic acidosis, which has resolved. 8. History of elevated phosphorus levels. P.r.n. binder therapy if repeat levels remain elevated. PLAN 1. The patient to remain on renal diet and as noted above p.r.n. phosphorus binder therapy if her phosphorus level remains elevated. 2. Continue antibiotic therapy for her pneumonia. Patient being followed by pulmonary and ID. 3. History of COPD. Continue inhalation therapy. Patient cautioned to discontinue cigarettes. 4. IDDM, not well controlled, as patient is on steroids. Continue to adjust sliding scale insulin and continue long-acting insulin. 5. Accurate Is and Os while on 3R. 6. Continue to follow labs on a daily basis. 7. Try and taper steroids when able. Jared Beatty MD
--- NOTE | 2017-03-08 04:04 | PN ---
DATE: 03/07/2017 PULMONARY PROGRESS NOTE REFERRING PHYSICIAN: Dr. Sosa. SUBJECTIVE: She is sitting at the side of the bed, having lunch, upset because of the family issue. Still having cough, sputum production. No nausea. No vomiting. No diarrhea. No leg pain or leg swelling. OBJECTIVE: GENERAL: Mild distress secondary to cough and shortness of breath. VITAL SIGNS: Temp is 98, heart rate is 102, respiratory rate is 22, blood pressure 142/67, pulse ox 92% on 4 L nasal cannula. HEENT: Moist mucous membrane. No ulcer or thrush noted. NECK: Supple. No JVD. LUNGS: Bilateral diffuse wheezing. HEART: S1 and S2. ABDOMEN: Soft and nontender. No organomegaly. EXTREMITIES: No edema. NEUROLOGIC: Awake, alert, and follows simple commands. MEDICATIONS: She is on Mucomyst 20% inhaled q. 8 hour, DuoNeb q. 4 hour, heparin 5000 units subcu q. 12 hour, insulin coverage, Levemir 15 units subcu q. 12 hour, Nicoderm patch daily, Percocet 5/325 mg one tab q. 6 hour p.r.n., Protonix 40 mg daily, Solu-Medrol 40 mg q. 12 hour, Xanax 0.5 mg four times a day, also receiving Zithromax 250 mg daily. LABORATORY DATA: Shows hemoglobin 9.2, hematocrit 30.4, WBC 8.6, platelet is 354. Blood gas shows pH 7.24, pCO2 54, pO2 56. Microbiology; blood culture, urine culture, naris, and sputum is unremarkable. IMPRESSION AND PLAN: Chronic obstructive lung disease with respiratory failure, active smoker, has pneumonia, diabetes, chronic pain syndrome. We will continue intravenous and inhaled bronchodilator. Continue antibiotics, gastric prophylaxis, deep venous thrombosis prophylaxis, fall precaution. Asked patient to stop smoking. Thank you and we will follow with you. Lisa Rucker MD
[2017-03-08 07:35] LABS: HEMATOCRIT 29.5 % (36.0-48.0); MEAN CELL VOLUME 93.7 fl (80.0-105.0); MEAN CORPUSCULAR HEMOGLOBIN 28.3 pg (25.0-35.0); MEAN CORPUSCULAR HGB CONC 30.2 g/dl (31.0-37.0); MEAN PLATELET VOLUME 10.1 fl (7.0-11.0); RED CELL DISTRIBUTION WIDTH 15.4 % (11.5-14.5); WHITE BLOOD COUNT 8.9 10^3/ul (4.5-11.0)
[2017-03-08 07:56] LABS: ALB/GLOB RATIO 1.2 (1.1-1.8); BILIRUBIN,TOTAL 0.2 mg/dL (0.2-1.3); CALCIUM 7.6 mg/dL (8.4-10.5); MAGNESIUM 1.7 mg/dL (1.7-2.2); PHOSPHOROUS 3.1 mg/dL (2.5-4.5); POTASSIUM 4.5 mmol/L (3.6-5.0); TOTAL PROTEIN 5.7 g/dL (5.8-8.3)
[2017-03-08] MEDS: Albuterol-Ipratrop 3 mg / 0.5 (3 ml) UD IH SCH ×4 (08:08→20:09)
[2017-03-08] MEDS: Acetylcysteine 20% Inhal Soln (4ml) IH SCH ×2 (08:08→14:51)
[2017-03-08] MEDS: Insulin Reg-MEDIUM-Coverage SC SCH ×4 (08:46→21:54)
[2017-03-08] MEDS: MethylPREDNISolone 40 mg Vial IV SCH ×2 (10:03→21:09)
[2017-03-08] MEDS: Insulin Detemir 100 units/ml Vial (Levemir) SC SCH ×2 (10:03→17:43)
[2017-03-08] MEDS: Insulin Lispro 1 UNITS/0.01 ML SC SCH ×2 (10:06→17:42)
[2017-03-08] MEDS: Oxycodone/Acetaminophen 5/325 mg Tab PO PRN ×2 (11:40→21:09)
--- NOTE | 2017-03-08 13:27 | PN ---
DATE: 03/07/2017 SUBJECTIVE: The patient is off ICU. She is comfortable. She is now on medical floor. No distress. No chest pain. Her breathing is much better. She is not wheezing and her breathing is much better. PHYSICAL EXAMINATION: As follows; VITAL SIGNS: Temperature 97.7, heart rate 98, blood pressure 142/67, respiratory rate is 20 and saturation 92% on 5 liters. HEAD AND NECK: Normal. No JVD. No thyromegaly. CHEST: Few wheeze, otherwise normal. CARDIAC: First sound and second sound normal. ABDOMEN: Soft, obese, nontender. EXTREMITIES: No edema. NEUROLOGIC: Normal. LABORATORY DATA: White count 8.6, hemoglobin 9.2, hematocrit 30.4, and platelets 354. Her chemistry noted for sodium 144, potassium 4.3, chloride 109, bicarb 24, BUN 62, creatinine is 1.6. Blood sugar almost 559 and calcium 7.8. Liver function test is normal. IMPRESSION AND PLAN: 1. Acute respiratory failure status post extubations due to multifactorial. She has chronic obstructive pulmonary disease and pneumonia combination factors for her breathing problem. She seems better. We will continue current therapy. 2. Acute chronic obstructive pulmonary disease exacerbation, community acquired pneumonia. Continue IV steroid. Continue inhaled bronchodilators. Continue Zithromax antibiotics and we will follow up with ID. 3. Chronic renal failure with acute worsening. Continue follow up with Nephrology. Creatinine is improving. We will continue current therapy. 4. Chronic back pain, osteoarthritis, chronic anxiety. Continue Percocet and oxycodone. 5. Tobacco smoking. The patient still smokes cigarettes. She is from 3 packs a day to now is 1 a day. Currently, she is on Nicoderm patch, we will continue that, advice to quit. We will follow up clinically. 6. Weakness. We will continue physical therapy, walking on daily basis and we will see how she will do. 7. Uncontrolled diabetes. The patient her sugar into Humalog 30 units b.i.d. plus medial scale coverage for insulin. We will repeat lab in the morning. Sloan Sosa MD
--- NOTE | 2017-03-08 18:14 | PN ---
DATE OF SERVICE: 03/08/2017 SUBJECTIVE: The patient is seen sitting in bed. She is awake. She is alert. She is comfortable. She reports that she walked in the hallway. She still has cough. She still has shortness of breath on exertion. PHYSICAL EXAMINATION: GENERAL: Middle-aged lady, sitting in bed. VITAL SIGNS: Blood pressure 123/31, heart rate 91, respiratory rate 22, temperature 97.9. HEENT: Normocephalic, atraumatic. NECK: Supple, no JVD. LUNGS: Bilateral equal air entry, bilateral rhonchi, expiratory wheeze. CARDIAC: S1 and S2, regular rate and rhythm, no murmur, no rub. ABDOMEN: Obese, distended, soft, nontender, bowel sounds present. EXTREMITIES: 1+ pitting edema of the lower extremities. INTAKE AND OUTPUT: 460/400. LABORATORY DATA: WBC 8.9, hemoglobin 8.9, hematocrit 29.5, platelets 330, sodium 144, potassium 4.5, chloride 110, CO2 26, BUN 51, creatinine 1.5, glucose 289, calcium 7.6, phosphorus 3.1, magnesium 1.7, albumin 3.1. Cultures, no growth so far. CURRENT MEDICATIONS: Mucomyst, Diprivan, DuoNeb, heparin, insulin, Levemir, NicoDerm, Percocet, Protonix, Solu-Medrol, Xanax, Zithromax. ASSESSMENT: 1. Acute kidney injury, resolving. 2. Metabolic acidosis plus respiratory acidosis, much improved. 3. Status post respiratory failure. 4. Chronic obstructive pulmonary disease. 5. Active smoking. 6. History of breast cancer. 7. Hypernatremia, resolved. PLAN: 1. Continue respiratory treatments, empiric antibiotics. 2. Monitor fingerstick's, intensify glycemic control. 3. Physical therapy. 4. Counseled regarding smoking cessation. Lula Hurd MD
--- NOTE | 2017-03-08 19:59 | PN ---
DATE: 03/08/2017 PULMONARY PROGRESS NOTE REFERRING PHYSICIAN: Dr. Sosa. SUBJECTIVE: The patient is sitting side of the bed having lunch, son is at the bedside. Night was unremarkable. Feels better. Still having cough, shortness of breath. No nausea. No vomiting. No diarrhea. No leg pain or leg swelling. OBJECTIVE: GENERAL: In no acute distress. VITAL SIGNS: Temperature 98, heart rate is 91, respiratory rate is 20, blood pressure is 123/31, pulse ox 96% on nasal cannula. HEENT: Moist mucous membranes. No ulcer or thrush. NECK: Supple. No JVD. LUNGS: Scattered rhonchi and wheezing. HEART: S1 and S2. ABDOMEN: Soft and nontender. No organomegaly. EXTREMITIES: No edema. NEUROLOGIC: Awake, alert and follows simple command. MEDICATIONS: She is on Mucomyst 20% inhaled q. 8 hours, albuterol/Atrovent nebulizer q. 4 hours, heparin 5000 units subcu q. 12 hours, insulin coverage, Levemir units subcu twice a day, Nicoderm patch daily, Percocet 5/325 mg one tablet q. 6 hours p.r.n., Protonix 40 mg daily, Solu-Medrol 40 mg q.12 hours, Xanax 0.5 mg q.i.d., and Zithromax 500 mg daily. LABORATORY DATA: Shows hemoglobin 8.9, hematocrit 29.5, WBC 8.9, platelet is 330. Sodium 144, potassium 4.5, chloride is 110, bicarbonate 26, BUN 51, creatinine 1.5, glucose 299, calcium 7.6, phosphorus 3.1, magnesium is 1.7. AST 19, ALT 30, alkaline phosphatase 64, albumin is 3.1. Microbiology; blood culture, sputum culture, urine culture, there is no growth. IMPRESSION AND PLAN: Chronic obstructive lung disease with respiratory failure. She is active smoker, presently extubated on nasal cannula, pneumonia, diabetes, chronic pain syndrome. Pulmonary point of view, doing okay. Continue IV and inhaled bronchodilator. Continue antibiotics. Gastric prophylaxis, DVT prophylaxis. Fall precaution. Urged the patient to stop smoking. Thank you, and we will follow with you. Lisa Rucker MD [facility] # [id number]
--- NOTE | 2017-03-09 00:10 | PN ---
DATE: 03/08/2017 SUBJECTIVE: The patient is in bed, in no acute distress. OBJECTIVE: VITAL SIGNS: Temperature is 98, blood pressure is 140/60, and respiratory rate of 16. HEENT: Unremarkable. NECK: Supple. LUNGS: Have decreased breath sounds. HEART: Normal S1 and S2. ABDOMEN: Soft and nontender. LABORATORY DATA: Reveals a white count of 8.9, hemoglobin of 8, and platelets of 330. Chemistries reveals a BUN of 61 and creatinine of 1.5. Procalcitonin is 0.4. Urinalysis is noted and influenza is negative. Microbiology; there is no growth. Review of orders reveal the patient to be on p.o. azithromycin. ASSESSMENT AND PLAN: This is a 56-year-old female with coronary artery disease; respiratory failure and was intubated on the ventilator; end-stage chronic obstructive lung disease; history of breast cancer; diabetes; hypertension; Enterococcus urinary tract infection; Carmen esophagitis; and admitted on this admission with severe sepsis; respiratory failure, on a ventilator; healthcare-associated pneumonia; acute kidney injury; negative cultures; negative procalcitonin; now extubated; comfortable on p.o. Zithromax; and we will follow closely with you. Prasanth Malcolm MD
[2017-03-09 05:55] LABS: HEMATOCRIT 31.6 % (36.0-48.0); MEAN CELL VOLUME 93.8 fl (80.0-105.0); MEAN CORPUSCULAR HEMOGLOBIN 28.8 pg (25.0-35.0); MEAN CORPUSCULAR HGB CONC 30.7 g/dl (31.0-37.0); MEAN PLATELET VOLUME 10.1 fl (7.0-11.0); RED CELL DISTRIBUTION WIDTH 15.1 % (11.5-14.5); WHITE BLOOD COUNT 9.9 10^3/ul (4.5-11.0)
[2017-03-09 06:30] LABS: ALB/GLOB RATIO 1.2 (1.1-1.8); BILIRUBIN,TOTAL 0.2 mg/dL (0.2-1.3); CALCIUM 7.8 mg/dL (8.4-10.5); POTASSIUM 4.8 mmol/L (3.6-5.0)
[2017-03-09] MEDS: Albuterol-Ipratrop 3 mg / 0.5 (3 ml) UD IH SCH ×5 (07:58→23:32)
[2017-03-09] MEDS: Acetylcysteine 20% Inhal Soln (4ml) IH SCH ×4 (07:58→23:32)
[2017-03-09] MEDS: Pantoprazole 40 mg EC Tab PO SCH (08:51)
[2017-03-09] MEDS: Insulin Reg-MEDIUM-Coverage SC SCH ×4 (08:51→21:34)
--- NOTE | 2017-03-09 10:05 | CON ---
DATE: 03/06/2017 REASON FOR CONSULTATION: Hypernatremia, metabolic acidosis, acute kidney injury, and chronic kidney disease stage III. HISTORY OF PRESENT ILLNESS: This is a 56-year-old lady, who is seen in the ICU. She was admitted on 03/03/2017 because of fall at home, progressive respiratory distress for 1 week prior to presentation. In the emergency room she was found to be hypoxic, her CO2 was found to be 84% on 3 liters. She was found to be altered, hence she was intubated. Post intubation ABG demonstrated hypercapnia and respiratory acidosis. The patient was also found to have acute kidney injury. Early this morning she was extubated. She is awake. She is alert. She complains of shortness of breath. She complains of cough. She is an active smoker. She continues to smoke 1 pack per day. LABORATORY DATA: Her initial labs showed sodium 144, potassium 4.8, chloride 106, CO2 24, BUN 60, and creatinine 2.4, pH of 7.1, pCO2 58, PO2 186. The patient was resuscitated with IV fluids. PAST MEDICAL AND SURGICAL HISTORY: Breast cancer, COPD, hypertension, opioid abuse, altered mental status, and chronic kidney disease stage II-III. ALLERGIES: LEVAQUIN AND NYSTATIN. MEDICATIONS: List reviewed. SOCIAL HISTORY: Active smoker 1 pack per day, opioid abuse. FAMILY HISTORY: Noncontributory. REVIEW OF SYSTEMS: Currently complains of shortness of breath. Also complains of some pain. She complains of cough. She denies any chest tightness. She denies any abdominal pain. All other systems are reviewed and unremarkable. PHYSICAL EXAMINATION: GENERAL: Middle-aged lady lying in bed in the ICU, in mild to moderate respiratory distress. Appears puffy. VITAL SIGNS: Blood pressure 146/63, heart rate 109, respiratory rate 23, and temperature 97. HEENT: Normocephalic, atraumatic. Positive pallor. NECK: Supple, no JVD, bilateral rhonchi, expiratory wheeze, prolonged expiration. CARDIAC: S1 and S2. Regular rate and rhythm. No murmur, no rub. ABDOMEN: Obese, distended, soft, nontender, bowel sounds present. EXTREMITIES: 2+ pitting edema of the lower extremities. INTAKE AND OUTPUT: 1170/1000. LABORATORY DATA: WBC 6, hemoglobin 8.9, hematocrit 29.5, and platelets 344. Sodium 151, potassium 4.0, chloride 117, CO2 24, BUN 66, creatinine 1.4, glucose 264, calcium 8.2, AST 23, ALT 31, and albumin 3.1. Urinalysis, light yellow cloudy, pH 5.5, specific and 25, protein 100, blood large, leukocyte esterase moderate. Urine toxicology positive for opioids. We will cultures no growth so far. CT of the pelvis, no fracture. CURRENT MEDICATIONS: Mucomyst, Diprivan, DuoNeb, Maxipime 1 g daily, Protonix, Solu-Medrol 40 q.12 hours, Xanax, Zithromax, and IV fluids with sodium bicarbonate. ASSESSMENT: A 56-year-old lady with history of breast cancer, chronic obstructive pulmonary disease, respiratory failure, chronic kidney disease stage II/III, noninsulin dependent diabetes mellitus, active smoking, admitted with respiratory distress, respiratory failure, combined respiratory and metabolic acidosis, acute kidney injury; now with improvement in her respiratory status. She was successfully extubated this mornin. Acute kidney injury, resolving, largely prerenal azotemia. 2. Combined respiratory and metabolic acidosis. 3. Hypercapnic respiratory acidosis. 4. Chronic obstructive pulmonary disease. 5. Persistent smoking. 6. History of breast cancer. 7. Hypernatremia, likely iatrogenic secondary to IV fluids. 8. Underlying chronic kidney disease stage II/III. 9. History of hyponatremia in the past. PLAN: 1. Discontinue IV fluids. 2. Continue respiratory treatments. 3. Taper steroids as possible. 4. Continue empiric antibiotics, dose for creatinine clearance about 50 mL/minute. 4. Avoid nephrotoxins. 5. Smoking cessation counseling 6. Monitor urine output closely. 7. Monitor H and H. Case discussed with ICU nurses, case discussed with ICU residents, case discussed with typewriter tester. More than 35 minutes spent in the care of this critically ill patient. Lula Hurd MD
[2017-03-09] MEDS: Insulin Detemir 100 units/ml Vial (Levemir) SC SCH ×2 (10:59→17:27)
[2017-03-09] MEDS: Insulin Lispro 1 UNITS/0.01 ML SC SCH ×2 (10:59→17:28)
--- NOTE | 2017-03-09 11:18 | PN ---
DATE: 03/08/2017 SUBJECTIVE: A 56-year-old female came into the hospital with respiratory failure, status post extubation, ICU and right now on medical floor, seems to be doing well. Getting physical therapy. She feels weak, but improving. The patient has no other complaints. PHYSICAL EXAMINATION: VITAL SIGNS: Temperature is 97.9, heart rate 91, blood pressure 123/31, respirations 22, saturation 96% on 4L. HEAD AND NECK: Normal. No JVD. No thyromegaly. CHEST: Clear. Good air entry. CARDIAC: First sound and second normal. ABDOMEN: Soft and nontender. EXTREMITIES: No edema. NEUROLOGIC: Normal. LABORATORY STUDIES: Shows sodium 144, potassium 4.5, chloride 110, bicarbonate 26, BUN 51, creatinine 1.5, blood sugar 289, calcium 7.6. Blood sugar running 250 to 300. The patient also had white count 8.9, hemoglobin 8.9, hematocrit 29.5, platelets 330. IMPRESSION AND PLAN: 1. Acute chronic obstructive pulmonary disease exacerbation. We will continue steroids with tapering dose increased to 30 mg q. 12 hours. Continue inhaled bronchodilators. 2. Generalized weakness. Steroids could be a factor. We will reduce the steroids. Continue physical therapy. 3. Renal failure acute on top of chronic, worsening acute kidney injury, seems doing better. Creatinine went down to 1.5, which is baseline. Followup with the ad operations intern. 4. Anemia chronic, the patient need to be followed by Hematology/Oncology consult as an outpatient. Continue current therapy. 5. Diabetes. Sugar running 250 to 300. We will increase her insulin coverage and we will follow up clinically. Continue current therapy. Please be advised this note for 03/08/2017. Sloan Sosa MD
[2017-03-09] MEDS: MethylPREDNISolone 40 mg Vial IV SCH (13:47)
[2017-03-09] MEDS: Oxycodone/Acetaminophen 5/325 mg Tab PO PRN (14:41)
--- NOTE | 2017-03-09 21:41 | PN ---
DATE: 03/09/2017 SUBJECTIVE: The patient is seen earlier this morning. No fevers and chills. OBJECTIVE: VITAL SIGNS: On exam, temperature is 98, blood pressure is 150/60, respiratory rate of 22, and heart rate of 85. HEENT: Unremarkable. NECK: Supple. LUNGS: Have decreased breath sounds. HEART: Normal S1, S2. ABDOMEN: Soft, nontender. LABORATORY EXAMINATION: Reveals a white count of 9.9, hemoglobin of 9, platelets of 318. Chemistries reveal a BUN of 49, creatinine of 1.5 and procalcitonin of 0.45, urinalysis is noted, and influenza is negative. Microbiology reveals the blood cultures are no growth. Urine cultures negative. ASSESSMENT AND PLAN: This is a 56-year-old female with coronary artery disease, respiratory failure, intubated on a ventilator, end-stage chronic obstructive lung disease, history of breast cancer, diabetes, hypertension, Enterococcus urinary tract infection, Carmen esophagitis, admitted with severe sepsis, respiratory failure on a ventilator now with healthcare-associated pneumonia, acute kidney injury. The patient is now extubated, comfortable, off of the vent, doing well, and on p.o. Zithromax and Solu-Medrol. Prasanth Malcolm MD
--- NOTE | 2017-03-09 23:00 | PN ---
DATE: 03/09/2017 SUBJECTIVE: The patient is seen sitting in chair. She is awake and alert. She is comfortable. She reports she is feeling better. PHYSICAL EXAMINATION: GENERAL: Middle-aged lady sitting in chair. VITAL SIGNS: Blood pressure 152/68, heart rate 103, respiratory rate 18, and temperature 98.9. HEENT: Normocephalic, atraumatic. NECK: Supple, no JVD. LUNGS: Bilateral rhonchi, expiratory wheeze, no rales. CARDIAC: S1 and S2. Regular rate and rhythm, no murmur, no rub. ABDOMEN: Obese, distended, soft, nontender, bowel sounds present. EXTREMITIES: Trace lower extremity edema. Intake and output 420/700. LABORATORY DATA: WBC 9.9, hemoglobin 9.7, hematocrit 32, and platelets 318. Sodium 142, potassium 4.8, chloride 107, CO2 of 27, BUN 49, creatinine 1.5, glucose 424, calcium 7.8, and albumin 3.3. CURRENT MEDICATIONS: 1. DuoNeb. 2. Insulin. 3. Percocet. 4. Protonix. 5. Solu-Medrol 30 IV q.12. 6. Xanax. 7. Zithromax. ASSESSMENT AND PLAN: 1. Resolved acute kidney injury. 2. Resolved combined metabolic and respiratory acidosis. 3. Hyperglycemia. 4. Status post respiratory failure, chronic obstructive pulmonary disease exacerbation. 5. Non-insulin dependant diabetes mellitus. 6. Hypertension. 7. Underlying chronic kidney disease, stage III. 8. Active smoking. PLAN: 1. Taper steroids as possible. 2. Continue to monitor fingersticks and intensified glycemic coverage. 3. Avoid nephrotoxins. 4. Resident Assistant regarding smoking cessation Lula Hurd MD
[2017-03-09] MEDS ORDERED: Oxycodone/Acetaminophen 5/325 mg Tab PO STA (23:26)
[2017-03-10] MEDS: Albuterol-Ipratrop 3 mg / 0.5 (3 ml) UD IH SCH ×5 (05:15→23:45)
[2017-03-10] MEDS: Acetylcysteine 20% Inhal Soln (4ml) IH SCH ×3 (05:17→23:45)
[2017-03-10 07:35] LABS: ALB/GLOB RATIO 1.2 (1.1-1.8); BILIRUBIN,TOTAL 0.2 mg/dL (0.2-1.3); CALCIUM 7.6 mg/dL (8.4-10.5); POTASSIUM 4.3 mmol/L (3.6-5.0); TOTAL PROTEIN 5.8 g/dL (5.8-8.3)
[2017-03-10 07:54] LABS: HEMATOCRIT 32.3 % (36.0-48.0); MEAN CELL VOLUME 94.2 fl (80.0-105.0); MEAN CORPUSCULAR HEMOGLOBIN 27.7 pg (25.0-35.0); MEAN CORPUSCULAR HGB CONC 29.4 g/dl (31.0-37.0); MEAN PLATELET VOLUME 10.5 fl (7.0-11.0); RED CELL DISTRIBUTION WIDTH 15.3 % (11.5-14.5); WHITE BLOOD COUNT 11.1 10^3/ul (4.5-11.0)
--- NOTE | 2017-03-10 09:14 | PN ---
DATE: 03/09/2017 PULMONARY PROGRESS NOTE REFERRING PHYSICIAN: Sloan Sosa MD SUBJECTIVE: She is sitting at the side of the bed, son is at the bedside. She still have some cough and shortness of breath, having dinner. No nausea. No vomiting. No diarrhea. No leg pain or leg swelling. OBJECTIVE: GENERAL: In no acute distress. VITAL SIGNS: Temperature is 98, heart rate is 103, respiratory rate is 18, blood pressure is 152/68, and pulse oximetry is 96% on nasal cannula. HEENT: Moist mucous membranes. Crowded airway. NECK: Supple. No JVD. LUNGS: Have scattered rhonchi and wheezing. HEART: S1 and S2. ABDOMEN: Soft and nontender. No organomegaly. EXTREMITIES: No edema. NEUROLOGIC: Awake and alert. Follows simple commands. MEDICATIONS: She is on Mucomyst 20% inhaled q. 8 hours. acetylcysteine, DuoNeb q. 4 hours, [id number], heparin 5000 units subcutaneous q. 12 hours, insulin coverage, Levemir 20 units subcutaneous twice a day, Nicoderm patch daily, Percocet 5/325 mg one tablet q. 6 hours p.r.n., Protonix 40 mg daily, Solu-Medrol 30 mg q. 12 hours, Xanax 0.5 mg q.i.d., and Zithromax 250 mg daily. LABORATORY DATA: Shows hemoglobin of 9.7, hematocrit of 31.6, WBC of 9.9, and platelets of 318. Sodium of 142, potassium of 4.8, chloride of 107, bicarbonate of 27, BUN of 49, and creatinine of 1.5. Glucose of 223 and calcium of 7.8. AST is 25, ALT is 29, alkaline phosphatase is 83, and albumin is 3.3. IMPRESSION AND PLAN: Chronic obstructive lung disease, status post respiratory failure, extubated on nasal cannula, she is an active smoker; history of pneumonia; diabetes, and chronic pain syndrome. Pulmonary point of view doing okay. Urged to stop smoking. Continue IV and inhaled bronchodilators. Incentive spirometry. Gastric prophylaxis and deep venous thrombosis prophylaxis. Fall precautions. Continue therapy. Thank you and we will follow with you. Lisa Rucker MD
[2017-03-10] MEDS: Insulin Lispro 1 UNITS/0.01 ML SC SCH ×2 (09:42→18:23)
[2017-03-10] MEDS: Insulin Detemir 100 units/ml Vial (Levemir) SC SCH ×2 (09:42→18:27)
[2017-03-10] MEDS: Pantoprazole 40 mg EC Tab PO SCH (09:43)
[2017-03-10] MEDS: Insulin Reg-MEDIUM-Coverage SC SCH ×4 (09:44→18:23)
[2017-03-10] MEDS: MethylPREDNISolone 40 mg Vial IV SCH (13:00)
--- NOTE | 2017-03-10 18:26 | PN ---
DATE: 03/10/2017 SUBJECTIVE: The patient is seen sitting in bed. She is awake. She is alert. She is comfortable. She reports that the shortness of breath is better. PHYSICAL EXAMINATION: GENERAL: Middle-aged lady sitting in bed. VITAL SIGNS: Blood pressure 137/63, heart rate 98, respiratory rate 22, and temperature 97.9. HEENT: Normocephalic and atraumatic. NECK: Supple. No JVD. LUNGS: Bilateral equal air entry, no rales. CARDIAC: S1 and S2, regular rate and rhythm. No murmur. No rub. ABDOMEN: Obese, distended, soft, nontender, and bowel sounds present. EXTREMITIES: 1+ pitting edema of the lower extremities. INTAKE AND OUTPUT: 1010/700. LABORATORY DATA: WBC 11, hemoglobin 9.5, hematocrit 32, and platelets 306. Sodium 140, potassium 4.3, chloride 105, CO2 of 26, BUN 46, creatinine 1.5, glucose of 363, calcium 7.6, albumin 3.2, and corrected calcium is 8.0. CURRENT MEDICATIONS: List reviewed. ASSESSMENT: 1. Resolved acute kidney injury. 2. Stable chronic kidney disease stage III. 3. Resolved hyperkalemia. 4. Resolved hypernatremia. 5. Status post respiratory failure. 6. Chronic obstructive pulmonary disease. 7. Active smoking. PLAN: 1. The patient is stable from the renal standpoint. 2. We will discontinue followup, reconsult as needed. Lula Hurd MD
--- NOTE | 2017-03-10 19:15 | PN ---
PULMONARY PROGRESS NOTE DATE: 03/10/2017 REFERRING PHYSICIAN: Sloan Sosa MD SUBJECTIVE: She is sitting at the side of the bed, family, son, and daughter are at the bedside. Night was unremarkable. Feels better. Still has some cough, rhonchi, and sputum production. No nausea. No vomiting, diarrhea, leg pain or leg swelling. OBJECTIVE: GENERAL: In no acute distress. VITAL SIGNS: Temperature is 98, heart rate is 90, respiratory rate is 20, blood pressure is 137/63, and pulse oximetry is 96% 2 L on nasal cannula. HEENT: Moist mucous membranes. No ulcer or thrush. NECK: Supple. No JVD. LUNGS: Has a prolonged expiratory phase with wheezing. HEART: S1 and S2. ABDOMEN: Soft and nontender. No organomegaly. EXTREMITIES: There is no edema. NEUROLOGIC: Awake, alert, and follows simple commands. MEDICATIONS: She is on Mucomyst 20% inhaled q.8 hours, DuoNeb q.4 hours, heparin 500 units subcutaneously q.12 hours, insulin coverage, Levemir 20 units subcutaneously twice a day, Nicoderm patch daily, Protonix 40 mg daily, Solu-Medrol 30 mg q.12 hours, Xanax 0.5 mg four times daily, and Zithromax 250 mg daily. LABORATORY DATA: Shows hemoglobin of 9.5, hematocrit of 32.3, WBC of 11.1, and platelet count of 306. Sodium 140, potassium 4.3, chloride 105, bicarbonate 26, BUN 46, and creatinine 1.5. Glucose 108 and calcium is 7.6. AST 14, ALT 35, alkaline phosphatase is 78, and albumin is 3.2. IMPRESSION AND PLAN: Chronic obstructive lung disease, status post respiratory failure, extubated on nasal cannula, active smoker; status post pneumonia; diabetes, and chronic pain syndrome. Pulmonary point of view, doing okay. Continue IV and inhaled bronchodilators, gastric prophylaxis, deep venous thrombosis prophylaxis, fall precaution, and ask to stop smoking. Thank you and we will follow with you. Lisa Rucker MD
--- NOTE | 2017-03-10 23:52 | PN ---
DATE: 03/10/2017 SUBJECTIVE: Patient is seen early this morning in room 370. Patient has no fever, no chills. She is still having cough, shortness of breath. PHYSICAL EXAMINATION: VITAL SIGNS: Temperature is 97, blood pressure is 120/60, respiratory rate is 22, heart rate of 98. HEENT: Unremarkable. NECK: Supple. LUNGS: Have decreased breath sounds. HEART: Normal S1 and S2. ABDOMEN: Soft and nontender. LABORATORY DATA: Reveals white count to be 11,000, hemoglobin of 9, platelets of 306. ASSESSMENT AND PLAN: This is a 56-year-old female with uzair esophagitis, admitted on this admission with severe sepsis; respiratory failure, on a ventilator with healthcare-associated pneumonia, acute kidney injury. Patient is now extubated; comfortable on p.o. Zithromax. Patient's overall long-term plans are poor for this patient with end stage chronic obstructive lung disease, reviewed medications. Patient to be on p.o. Zithromax. Prasanth Malcolm MD
--- NOTE | 2017-03-11 02:55 | PN ---
DATE: 03/09/2017 SUBJECTIVE: A 56-year-old female. The patient is feeling weak. Her breathing is getting better, but she feels generally weak and then blood sugar running high. PHYSICAL EXAMINATION: VITAL SIGNS: As follows; temperature is 98.9, heart rate is 103, blood pressure is 152/68, respirations are 18, and saturation is 90% on nasal canula 4 liters. HEAD AND NECK: Normal. No JVD. No thyromegaly. CHEST: Diminished breath sounds. Few wheeze. CARDIAC: First sound and second sound normal. ABDOMEN: Soft and nontender. EXTREMITIES: No edema. NEUROLOGIC: Normal. LABORATORY DATA: White count is 9.9, hemoglobin is 9.7, hematocrit is 31.6, and platelets are 318. Sodium 142, potassium 4.8, chloride 107, bicarb 27, BUN 49, creatinine 1.5, blood sugar 424, and calcium 7.8. Liver enzymes are normal. IMPRESSION AND PLAN: 1. Acute chronic obstructive pulmonary disease exacerbation. Continue steroids. We will consider keeping down when clinically stable. Continue inhaled bronchodilator. We will follow up with [facility], Dr. Rucker. 2. Diabetes: Sugar is uncontrolled. We will increase Lantus. We will increase Levemir and insulin coverage and we will start decreasing the steroids, which will help the sugar to go down. 3. Acute on top of chronic renal failure seen by Dr. Hurd, seems better. Continue current therapy. 4. Generalized weakness: Continue physical therapy. 5. Chronic back pain, chronic osteoarthritis of the spine and right knee joints: Continue Xanax and Percocet p.r.n. 6. History of breast carcinoma: The patient is status post radiation chemotherapy. Intermittently, she will get her chemo due to side effects, but she will follow up with the Oncologist as outpatient. Continue current therapy. Sloan Sosa MD
[2017-03-11] MEDS ORDERED: Oxycodone/Acetaminophen 5/325 mg Tab PO ONE (03:12)
[2017-03-11] MEDS: Benzocaine/Menthol (Cepacol) Lozenge MT PRN ×3 (03:21→17:24)
[2017-03-11] MEDS: Albuterol-Ipratrop 3 mg / 0.5 (3 ml) UD IH SCH ×6 (04:07→23:30)
[2017-03-11 06:35] LABS: HEMATOCRIT 32.1 % (36.0-48.0); MEAN CELL VOLUME 94.4 fl (80.0-105.0); MEAN CORPUSCULAR HEMOGLOBIN 28.5 pg (25.0-35.0); MEAN CORPUSCULAR HGB CONC 30.2 g/dl (31.0-37.0); MEAN PLATELET VOLUME 10.3 fl (7.0-11.0); RED CELL DISTRIBUTION WIDTH 15.3 % (11.5-14.5); WHITE BLOOD COUNT 11.5 10^3/ul (4.5-11.0)
[2017-03-11 06:50] LABS: ALB/GLOB RATIO 1.2 (1.1-1.8); BILIRUBIN,TOTAL 0.2 mg/dL (0.2-1.3); CALCIUM 7.6 mg/dL (8.4-10.5); POTASSIUM 4.3 mmol/L (3.6-5.0); TOTAL PROTEIN 5.4 g/dL (5.8-8.3)
[2017-03-11] MEDS: Acetylcysteine 20% Inhal Soln (4ml) IH SCH ×3 (07:44→23:30)
[2017-03-11] MEDS: Insulin Reg-MEDIUM-Coverage SC SCH ×4 (08:20→22:00)
--- NOTE | 2017-03-11 08:30 | PN ---
DATE: 03/10/2017 SUBJECTIVE: The patient complained of generalized weakness. She also complained about sore throat, which seems significant that she has problem with swallowing. The patient also ask for Podiatry for her nails and she could not cut it. Otherwise, no new complaint. Her breathing seems better. PHYSICAL EXAMINATION: VITAL SIGNS: Temperature 97.9, heart rate 98, blood pressure 137/63, respirations 22, and sat 96%. HEAD AND NECK: Normal. No JVD. No thyromegaly. CHEST: Diminished breath sounds on the left, but otherwise, no wheeze. CARDIAC: First sound and second sound normal. ABDOMEN: Soft and nontender. EXTREMITIES: No edema. NEUROLOGIC: Normal. LABORATORY STUDY: Sodium 140, potassium 4.3, chloride 105, bicarb 26, BUN 46, and creatinine 1.5. Blood sugar is 363. Her CBC shows white count of 11.1, hemoglobin of 9.5, hematocrit of 32.3, and platelets of 306. IMPRESSION AND PLAN: 1. Acute chronic obstructive pulmonary disease exacerbation: We will continue to taper steroids. Continue inhaled and IV bronchodilator, seems better. 2. Generalized weakness: Continue physical therapy with decrease in the steroids. 3. Sore throat and dysphagia: We will give Cepacol Lozenges and see how she do. The patient does have ALLERGY TO ANTIFUNGAL MEDICATIONS. We will hold off from that for now. 4. Chronic anemia: The patient had endoscopy in the past. She should follow up with the GI consult when everything is stable. 5. Acute on top of chronic renal failure, which is stable now, creatinine baseline 1.5. We will monitor her creatinine status. 6. Community-acquired pneumonia: The patient is currently on p.o. Zithromax. She is off IV antibiotics. 7. Diabetes uncontrolled. Continue Levemir. We will continue Levemir and Humalog. We will increase Humalog to 40 units b.i.d. plus Levemir 20 b.i.d. 8. Chronic back pain and chronic anxiety: Continue Xanax and Percocet. 9. Continue GI and DVT prophylaxis: The patient is moving around and seems to be doing well. Sloan Sosa MD
[2017-03-11] MEDS: Insulin Detemir 100 units/ml Vial (Levemir) SC SCH ×2 (09:52→17:22)
[2017-03-11] MEDS: Pantoprazole 40 mg EC Tab PO SCH (09:53)
[2017-03-11] MEDS: Insulin Lispro 1 UNITS/0.01 ML SC SCH ×2 (09:56→17:20)
--- NOTE | 2017-03-11 10:40 | CP.PCM.CON ---
<Brian Encinas - Last Filed: 03/11/17 10:37> History of Present Illness - History of Present Illness History of Present Illness: Podiatry Consult Note - Dr. Mccarthy 56 year old female patient seen and evaluated with attending, Dr. Mccarthy for left leg pain. Patient resting comfortably, hemodynamically stable and NAD. Patient complaining of pain in the back of her left leg, unknown why it began. Denies N/V/F/D/C/SOB/calf pain. Review of Systems - Review of Systems All systems: reviewed and no additional remarkable complaints except (as per HPI ) Past Patient History - Infectious Disease Hx of Infectious Diseases: None - Tetanus Immunizations Tetanus Immunization: Unknown - Past Medical History & Family History Past Medical History?: Yes - Past Social History Smoking Status: Heavy Smoker > 10 Cigarettes Daily - CARDIAC Hx Hypertension: Yes - PULMONARY Hx Chronic Obstructive Pulmonary Disease (COPD): Yes - NEUROLOGICAL Hx Neurological Disorder: No - HEENT Hx HEENT Problems: Yes ([place] left ear) Hx Cataracts: Yes - RENAL Hx Chronic Kidney Disease: No (HYDRONEPHROSIS) Hx Kidney Stones: Yes - ENDOCRINE/METABOLIC Hx Diabetes Mellitus Type 2: Yes - HEMATOLOGICAL/ONCOLOGICAL Hx Blood Disorders: Yes Hx Cancer: Yes (breast cancer left dx 06/2015) Hx Chemotherapy: Yes - INTEGUMENTARY Hx Dermatological Problems: Yes Other/Comment: multiple age spots to back, small white areas of skin to left arm , ble skin discolorations, reddened buttock and hard red areas of skin to lower r and left buttock,multiple scabs and dry discolored skin areas to both arms, poor hygeine dirty toes and elbows - MUSCULOSKELETAL/RHEUMATOLOGICAL Hx Arthritis: Yes - GASTROINTESTINAL Hx Gastrointestinal Disorders: Yes (esophagitis/ pelvic mass) Hx Gastroesophageal Reflux: Yes - GENITOURINARY/GYNECOLOGICAL Hx Genitourinary Disorders: Yes Hx Urinary Tract Infection: Yes - PSYCHIATRIC Hx Psychophysiologic Disorder: Yes Hx Anxiety: Yes Hx Substance Use: Yes - SURGICAL HISTORY Other/Comment: left breast bx 07/01/15, umbilical hernia repair, c section x 2 extopic , excision of abd tumor, rcw pac, umbilical hernia repair - ANESTHESIA Hx Anesthesia Reactions: No Hx Malignant Hyperthermia: No Meds Allergies/Adverse Reactions: Allergies Allergy/AdvReac Type Severity Reaction Status Date / Time levofloxacin [From Levaquin] Allergy SHORTNESS Verified 03/03/17 09:16 OF BREATH;PARANOID nystatin Allergy SWELLING Verified 03/03/17 09:16 - Medications Medications: Current Medications Acetylcysteine (Acetylcysteine 20%) 4 ml IH Q8 [facility] Last Admin: 03/11/17 07:44 Dose: Not Given Albuterol/Ipratropium (Duoneb 3 Mg/0.5 Mg (3 Ml) Ud) 3 ml IH [id number] [facility] Last Admin: 03/11/17 07:45 Dose: Not Given Alprazolam (Xanax) 0.5 mg PO QID [facility] PRN Reason: Protocol Last Admin: 03/11/17 09:53 Dose: 0.5 mg Azithromycin (Zithromax) 250 mg PO DAILY [facility] PRN Reason: Protocol Stop: 03/17/17 10:01 Last Admin: 03/11/17 09:53 Dose: 250 mg Benzocaine/Menthol (Cepacol Sore Throat) 1 vy MT Q2H PRN PRN Reason: Sore Throat Last Admin: 03/11/17 10:07 Dose: 1 vy Heparin Sodium (Porcine) (Heparin) 5,000 units SC Q12 [facility] PRN Reason: Protocol Last Admin: 03/11/17 09:52 Dose: 5,000 units Propofol (Diprivan) 1,000 mg in 100 mls @ 2.041 mls/hr IV .Q24H PRN; Protocol; 5 MCG/KG/MIN PRN Reason: TITRATE PER MD ORDER Last Titration: 03/06/17 07:52 Dose: 0 mcg/kg/min, 0 mls/hr Insulin Detemir (Levemir) 20 unit SC BID [facility] Last Admin: 03/11/17 09:52 Dose: 20 unit Insulin Human Lispro (Humalog) 40 units SC BID [facility] Last Admin: 03/11/17 09:56 Dose: 40 units Insulin Human Regular (Humulin R Med) 0 units SC ACHS [facility] PRN Reason: Protocol Last Admin: 03/11/17 08:20 Dose: Not Given Methylprednisolone (Solu-Medrol) 30 mg IV 12 [facility] Last Admin: 03/10/17 13:00 Dose: 30 mg Nicotine (Nicoderm Cq) 1 patch TD DAILY [facility] Last Admin: 03/11/17 09:53 Dose: 1 patch Pantoprazole Sodium (Protonix Ec Tab) 40 mg PO ACB [facility] Last Admin: 03/11/17 09:53 Dose: 40 mg Physical Exam - Constitutional Appears: Well, Non-toxic, No Acute Distress - Extremities Exam Additional comments: VASC: DP and PT pulses palpable b/l. CFT WNL to all digits b/l. Temperature gradient WNL. Bilateral LE edema noted. NEURO: Gross sensation intact. DERM: No open lesions noted. Skin appears diffusely dry. ORTHO: Tenderness to palpation posterior aspect of left lower leg. - Neurological Exam Neurological exam: Alert Results - Vital Signs Recent Vital Signs: Last Vital Signs Temp 97.8 F 03/11/17 09:49 Pulse 88 03/11/17 09:49 Resp 20 03/11/17 09:49 BP 139/74 03/11/17 09:49 Pulse Ox 96 03/11/17 09:49 - Labs Result Diagrams: 03/11/17 06:15 03/11/17 06:15 Labs: Laboratory Results - last 24 hr 03/10/17 03/10/17 03/10/17 11:20 15:34 22:28 WBC RBC Hgb Hct MCV MCH MCHC RDW Plt Count MPV Sodium Potassium Chloride Carbon Dioxide Anion Gap BUN Creatinine Est GFR ( Amer) Est GFR (Non-Af Amer) POC Glucose (mg/dL) 180 H 108 223 H Random Glucose Calcium Total Bilirubin AST ALT Alkaline Phosphatase Total Protein Albumin Globulin Albumin/Globulin Ratio 03/11/17 03/11/17 03/11/17 06:15 06:15 07:47 WBC 11.5 H RBC 3.40 L Hgb 9.7 L Hct 32.1 L MCV 94.4 MCH 28.5 MCHC 30.2 L RDW 15.3 H Plt Count 276 MPV 10.3 Sodium 142 Potassium 4.3 Chloride 108 H Carbon Dioxide 27 Anion Gap 12 BUN 54 H Creatinine 1.5 H Est GFR ( Amer) 43 Est GFR (Non-Af Amer) 36 POC Glucose (mg/dL) 115 H Random Glucose 132 H Calcium 7.6 L Total Bilirubin 0.2 AST 17 ALT 33 Alkaline Phosphatase 50 Total Protein 5.4 L Albumin 2.9 L Globulin 2.4 Albumin/Globulin Ratio 1.2 03/11/17 09:54 WBC RBC Hgb Hct MCV MCH MCHC RDW Plt Count MPV Sodium Potassium Chloride Carbon Dioxide Anion Gap BUN Creatinine Est GFR ( Amer) Est GFR (Non-Af Amer) POC Glucose (mg/dL) 277 H Random Glucose Calcium Total Bilirubin AST ALT Alkaline Phosphatase Total Protein Albumin Globulin Albumin/Globulin Ratio Assessment & Plan - Assessment and Plan (Free Text) Assessment: 56 year old female with left leg pain Plan: Patient seen and evaluated with attending, Dr. Mccarthy afebrile, WBC increasing 11.5 (yesterday 11.1) Bilateral venous duplex ordered for left lower leg pain Will continue to monitor Pain mgmt per medicine Podiatry will continue to follow patient while in house <Junior Mccarthy - Last Filed: 03/15/17 08:27> Results - Vital Signs Recent Vital Signs: Last Vital Signs Temp 97.9 F 03/14/17 08:14 Pulse 99 H 03/14/17 08:14 Resp 20 03/14/17 08:14 BP 140/65 03/14/17 09:52 Pulse Ox 99 03/14/17 08:14 - Labs Result Diagrams: 03/12/17 05:30 03/12/17 05:30 Labs: Laboratory Results - last 24 hr 03/14/17 11:15 POC Glucose (mg/dL) 126 H Attending/Attestation - Attestation I have personally seen and examined this patient.: Yes I have fully participated in the care of the patient.: Yes I have reviewed all pertinent clinical information: Yes
[2017-03-11] MEDS: MethylPREDNISolone 40 mg Vial IV SCH (12:32)
[2017-03-11] MEDS: Oxycodone/Acetaminophen 5/325 mg Tab PO PRN ×2 (14:47→23:14)
--- NOTE | 2017-03-11 16:14 | PN ---
DATE: 03/11/2017 SUBJECTIVE: The patient is in bed, in no acute distress, nontoxic. PHYSICAL EXAMINATION: VITAL SIGNS: Temperature is 98, blood pressure is 130/70, respiratory rate 20, heart rate of 100. HEENT: Unremarkable. NECK: Supple. LUNGS: Have decreased breath sounds. HEART: Normal S1, S2. ABDOMEN: Soft. LABORATORY EXAMINATION: Reveals a white count of 11,000, hemoglobin of 9. Chemistries reveal a BUN of 54, creatinine of 1.4. Urinalysis is noted, and HIV has been shown to be negative in the past. Influenza is negative. ASSESSMENT AND PLAN: A 56-year-old female with Carmen esophagitis, admitted with severe sepsis, respiratory failure on a ventilator, health care-associated pneumonia, acute kidney injury. The patient is now extubated, comfortable, on p.o. Zithromax. Also on Solu-Medrol. Prasanth Malcolm MD
--- NOTE | 2017-03-11 19:42 | PN ---
DATE: 03/11/2017 PULMONARY PROGRESS NOTE REFERRING PHYSICIAN: Sloan Sosa MD SUBJECTIVE: She is lying in the bed, feeling tired and sleepy. Night was unremarkable. Cough is better. No nausea. No vomiting. No diarrhea. No leg pain or leg swelling. PHYSICAL EXAMINATION GENERAL: In no acute distress. VITAL SIGNS: Temperature is 98, heart rate is 88, respiratory rate is 20, blood pressure is 130/56 and pulse oximetry is 96% on nasal cannula. HEENT: Moist mucous membranes. No ulcer or thrush. NECK: Supple. No JVD. LUNGS: Has prolonged expiratory phase. There is some wheezing. HEART: S1 and S2. ABDOMEN: Soft and nontender. No organomegaly. EXTREMITIES: Has trace edema. NEUROLOGIC: Sleepy, arousable. Follows simple commands. MEDICATIONS: She is on Mucomyst 20% inhale q. 8 hour, Cepacol lozenges q. 2 hours p.r.n., DuoNeb q. 4 hours, heparin 5000 units subcutaneously q. 12 hours, insulin coverage, Levemir 20 units subcutaneously twice a day, Nicoderm patch daily, Percocet 5/325 one tablet q. 6 hours p.r.n., Protonix 40 mg daily, Solu-Medrol 30 mg q. 12 hours, Xanax 0.5 mg four times daily, and Zithromax 250 mg daily. LABORATORY DATA: Shows hemoglobin 9.7, hematocrit 32.1, WBC 11.5, and platelet count is 276. Sodium 142, potassium 4.3, chloride 108, bicarbonate 27, BUN 54, creatinine 1.5, glucose 132, and calcium is 7.6. AST 17, ALT 33, alk phos is 50, albumin is 2.9. Her extremity ultrasound done, report is pending. IMPRESSION AND PLAN: Chronic obstructive lung disease, status post respiratory failure, extubated on nasal cannula, active smoker; status post pneumonia; diabetes; and chronic pain syndrome. Pulmonary point of view, doing okay. Keep head elevated at 45 degree. Continue IV and inhaled bronchodilators. Advised to stop smoking. Gastric prophylaxis, deep venous thrombosis prophylaxis, and fall precaution. Continue therapy. Thank you and we will follow with you. Lisa Rucker MD
[2017-03-12] MEDS: Albuterol-Ipratrop 3 mg / 0.5 (3 ml) UD IH SCH ×6 (03:30→23:50)
[2017-03-12 05:51] LABS: HEMATOCRIT 31.8 % (36.0-48.0); MEAN CELL VOLUME 95.5 fl (80.0-105.0); MEAN CORPUSCULAR HEMOGLOBIN 28.5 pg (25.0-35.0); MEAN CORPUSCULAR HGB CONC 29.9 g/dl (31.0-37.0); MEAN PLATELET VOLUME 10.4 fl (7.0-11.0); RED CELL DISTRIBUTION WIDTH 15.5 % (11.5-14.5); WHITE BLOOD COUNT 14.6 10^3/ul (4.5-11.0)
[2017-03-12 05:58] LABS: ALB/GLOB RATIO 1.2 (1.1-1.8); BILIRUBIN,TOTAL 0.1 mg/dL (0.2-1.3); CALCIUM 7.6 mg/dL (8.4-10.5); POTASSIUM 4.5 mmol/L (3.6-5.0); TOTAL PROTEIN 5.5 g/dL (5.8-8.3)
[2017-03-12] MEDS: Acetylcysteine 20% Inhal Soln (4ml) IH SCH ×3 (07:40→23:50)
[2017-03-12] MEDS: Insulin Reg-MEDIUM-Coverage SC SCH ×2 (08:27→11:51)
[2017-03-12] MEDS: Pantoprazole 40 mg EC Tab PO SCH (08:27)
[2017-03-12] MEDS: Benzocaine/Menthol (Cepacol) Lozenge MT PRN ×3 (08:35→21:32)
[2017-03-12] MEDS: Insulin Detemir 100 units/ml Vial (Levemir) SC SCH ×2 (09:47→17:10)
[2017-03-12] MEDS: Insulin Lispro 1 UNITS/0.01 ML SC SCH ×2 (09:47→17:11)
[2017-03-12] MEDS: MethylPREDNISolone 40 mg Vial IV SCH (11:41)
--- NOTE | 2017-03-12 15:27 | RAD ---
HISTORY: SOB COMPARISON: 03/05/2017 TECHNIQUE: Chest PA and lateral FINDINGS: LUNGS: No active pulmonary disease. PLEURA: No significant pleural effusion identified. No pneumothorax apparent. CARDIOVASCULAR: No radiographic findings to suggest acute or significant cardiovascular disease. Venous access catheter in stable, satisfactory position. OSSEOUS STRUCTURES: No significant abnormalities. VISUALIZED UPPER ABDOMEN: Normal. OTHER FINDINGS: None. IMPRESSION: No active disease. No significant interval change compared to the prior examination(s).
--- NOTE | 2017-03-12 16:57 | CP.PCM.PN ---
Subjective - Date & Time of Evaluation Date of Evaluation: 03/12/17 Time of Evaluation: 16:53 - Subjective Subjective: Podiatry Progress Note - Dr. Mccarthy/Ilan 56 year old female patient seen and evaluated for left leg pain. Patient resting comfortably, hemodynamically stable and NAD. Daughter present at bedside. Denies any acute events overnight. Patient reports continued mild pain to the back of her left leg however is complaining more of her left knee secondary to long standing arthritis. No other pedal complaints at this time. States she occasionally has trouble ambulating due to balance issues. Patient states that she has a cane and walker at home however daughter states she never uses them. Patient has been working with physical therapy with no complaints. Denies N/V/F/D/C/SOB/calf pain. Objective - Vital Signs/Intake and Output Vital Signs (last 24 hours): Temp Pulse Resp BP Pulse Ox 98.2 F 99 H 20 139/63 95 03/12/17 16:30 03/12/17 16:30 03/12/17 16:30 03/12/17 16:30 03/12/17 16:30 Intake and Output: 03/12/17 03/12/17 06:59 18:59 Intake Total 540 Output Total 700 Balance -160 - Medications Medications: Current Medications Acetylcysteine (Acetylcysteine 20%) 4 ml IH Q8 [facility] Last Admin: 03/12/17 16:17 Dose: Not Given Albuterol/Ipratropium (Duoneb 3 Mg/0.5 Mg (3 Ml) Ud) 3 ml IH [id number] [facility] Last Admin: 03/12/17 16:16 Dose: Not Given Alprazolam (Xanax) 0.5 mg PO QID [facility] PRN Reason: Protocol Last Admin: 03/12/17 13:42 Dose: 0.5 mg Azithromycin (Zithromax) 250 mg PO DAILY [facility] PRN Reason: Protocol Stop: 03/17/17 10:01 Last Admin: 03/12/17 09:48 Dose: 250 mg Benzocaine/Menthol (Cepacol Sore Throat) 1 vy MT Q2H PRN PRN Reason: Sore Throat Last Admin: 03/12/17 12:06 Dose: 1 vy Heparin Sodium (Porcine) (Heparin) 5,000 units SC Q12 [facility] PRN Reason: Protocol Last Admin: 03/12/17 09:47 Dose: 5,000 units Propofol (Diprivan) 1,000 mg in 100 mls @ 2.041 mls/hr IV .Q24H PRN; Protocol; 5 MCG/KG/MIN PRN Reason: TITRATE PER MD ORDER Last Titration: 03/06/17 07:52 Dose: 0 mcg/kg/min, 0 mls/hr Insulin Detemir (Levemir) 20 unit SC BID [facility] Last Admin: 03/12/17 09:47 Dose: 20 unit Insulin Human Lispro (Humalog) 30 units SC BID [facility] Methylprednisolone (Solu-Medrol) 30 mg IV 12 [facility] Last Admin: 03/12/17 11:41 Dose: 30 mg Nicotine (Nicoderm Cq) 1 patch TD DAILY [facility] Last Admin: 03/12/17 09:49 Dose: 1 patch Oxycodone/Acetaminophen (Percocet 5/325 Mg Tab) 1 tab PO Q6H PRN PRN Reason: Pain, severe (8-10) Stop: 03/14/17 14:31 Last Admin: 03/11/17 23:14 Dose: 1 tab Pantoprazole Sodium (Protonix Ec Tab) 40 mg PO ACB [facility] Last Admin: 03/12/17 08:27 Dose: 40 mg - Labs Labs: 03/12/17 05:30 03/12/17 05:30 PT 14.7 SECONDS (9.4-12.5) H 03/03/17 09:05 INR 1.33 (0.93-1.08) H 03/03/17 09:05 APTT 44.5 Seconds (25.1-36.5) H 03/03/17 09:05 - Constitutional Appears: Well, Non-toxic, No Acute Distress - Extremities Exam Additional comments: VASC: DP and PT pulses palpable b/l. CFT WNL to all digits b/l. Temperature gradient WNL. Bilateral LE +1 pitting edema noted. No increase in warmth noted to bilateral calf. NEURO: Gross sensation intact. DERM: No open lesions noted. Skin appears diffusely dry. Venous stasis dermatitis noted circumfirentially to lower leg bilaterally. ORTHO: No tenderness to palpation posterior aspect of left lower leg. No pain on palpation of calf b/l. No palpable cord noted. No pain on compression of calf bilateral. - Neurological Exam Neurological Exam: Alert, Awake, Oriented x3 - Psychiatric Exam Psychiatric exam: Normal Affect, Normal Mood Assessment and Plan - Assessment and Plan (Free Text) Assessment: 56 year old female with left leg pain Plan: Patient seen and evaluated Discussed with attending, Dr. Talavera afebrile, WBC increasing 14.6 (yesterday 11.5) F/u Bilateral venous duplex report Will continue to monitor Pain mgmt per medicine Podiatry will continue to follow patient while in house
--- NOTE | 2017-03-12 18:51 | PN ---
DATE: 03/12/2017 SUBJECTIVE: The patient is in bed, in no acute distress, nontoxic. OBJECTIVE: VITAL SIGNS: On exam, temperature is 98, blood pressure is 140/60, respiratory rate of 16. HEENT: Unremarkable. NECK: Supple. LUNGS: Decreased breath sounds. HEART: Normal S1, S2. ABDOMEN: Soft, nontender. LABORATORY EXAMINATION: Reveals a white count of 14,600, hemoglobin of 9, platelets of 297. BUN of 59, creatinine of 1.7. Urinalysis is noted. Influenza is negative. Blood cultures, no growth. Urine cultures are negative. Sputum cultures, no growth. Review of orders reveals the patient is on p.o. Zithromax. ASSESSMENT AND PLAN: This is a 56-year-old female with history of Carmen esophagitis and history of respiratory failure intubated on a ventilator on this admission with end-stage chronic obstructive lung disease, history of breast cancer, diabetes, hypertension, Enterococcus urinary tract infection who was admitted with severe sepsis and required respiratory failure intubated on a ventilator and healthcare-associated pneumonia with acute kidney injury. At this time, the patient is extubated, comfortable and only on p.o. Zithromax for her end-stage chronic obstructive pulmonary disease. We will follow closely with you. Prasanth Malcolm MD
[2017-03-12] MEDS: Oxycodone/Acetaminophen 5/325 mg Tab PO PRN (21:32)
--- NOTE | 2017-03-12 21:34 | US ---
HISTORY: Leg pain and swelling. Evaluate for DVT PHYSICIAN(S): Warren Olivera MD. TECHNIQUE: Duplex sonography and color-flow Doppler with graded compression were used to evaluate the deep venous systems of both lower extremities. The exam is limited by body habitus and edema. FINDINGS: The visualized deep venous systems of both lower extremities are sonographically normal and compressible. Normal wave forms and augmentation are seen. There is no sonographic evidence for deep venous thrombosis in the visualized segments of both lower extremities. IMPRESSION: No sonographic evidence for deep venous thrombosis in the visualized segments of both lower extremities.
--- NOTE | 2017-03-12 23:58 | PN ---
DATE: REFERRING PHYSICIAN: Sloan Sosa MD SUBJECTIVE: She is sitting up side of the bed, still has been coughing sputum. No nausea. No vomiting. No diarrhea. OBJECTIVE: GENERAL: No acute distress.. VITAL SIGNS: Temperature is 98.2, heart rate is 99, respiratory rate is 20, blood pressure 139/63, and pulse oximetry is 95% on nasal cannula. HEENT: Moist mucous membranes. No ulcer or thrush. NECK: Supple. No JVD. LUNGS: Have prolonged expiratory phase. There is some wheezing. HEART: S1 and S2. ABDOMEN: Soft and nontender. No organomegaly. EXTREMITIES: Does have some edema. NEUROLOGIC: Awake and alert. Follows simple commands. MEDICATIONS: She is on Mucomyst 20% inhaled q.8 hours, Cepacol lozenges q.12 hours p.r.n., DuoNeb q.4 hours [id number], heparin 5000 units subcutaneously q.12 hours, insulin coverage, Levemir 20 units subcu twice a day, Nicotine patch daily, Percocet 5/325 one tablet q.6 hours p.r.n., Protonix 40 mg daily, Solu-Medrol 30 mg q.12 hours, Xanax 0.5 mg four times daily, and Zithromax 250 mg daily. LABORATORY DATA: Shows hemoglobin of 9.5, hematocrit of 31.8, WBC of 14.6, and platelet is 297. Sodium 142, potassium 4.5, chloride 106, bicarbonate 28, BUN 59, and creatinine 1.7, glucose 192, and calcium is 7.6. AST 19, ALT 47, alkaline phosphatase is 62, and albumin is 3.0. Chest x-ray done today shows no active pulmonary infiltrate reported. ASSESSMENT AND PLAN: Chronic obstructive lung disease, status post respiratory failure, extubated, on nasal cannula, active smoker; status post pneumonia; diabetes; chronic pain syndrome. Continue IV and inhaled bronchodilators, antibiotics. Gastric prophylaxis, deep venous thrombosis prophylaxis, incentive spirometer. Thank you, and we will follow with you. Lisa Rucker MD
--- NOTE | 2017-03-13 00:23 | PN ---
DATE: 03/11/2017 SUBJECTIVE: The patient complained of weakness, especially in the thigh muscles with . She feels week. She still has some short of breath. Her voice changed, but seems a litter better. No other complaints. PHYSICAL EXAMINATION: VITAL SIGNS: On 03/11/2017, temperature is 97.8, heart rate 88, blood pressure 139/74, respirations 20, saturation 96%. HEAD AND NECK: Normal. No JVD. No thyromegaly. CHEST: Few rhonchi. Diminished breath sound in the bases, left more than right. CARDIAC: First sound and second sound normal. ABDOMEN: Soft, nontender. EXTREMITIES: No edema. NEUROLOGIC: Normal. LABORATORY STUDIES: Show the following; white count 11.5, hemoglobin 9.7, hematocrit 32.1, platelets 276. Chemistry shows sodium 142, potassium 4.3, chloride 108, bicarbonate 27, BUN 54, creatinine 1.5, blood sugar is 132, calcium 7.6. Liver enzyme is normal. IMPRESSION AND PLAN: 1. Acute chronic obstructive pulmonary disease exacerbation and community-acquired pneumonia. Continue inhaled and IV bronchodilators. Seems doing well. Continue Mucomyst, Cepacol lozenges for sore throat, DuoNeb and Zithromax. The patient seems slowly progressively getting better. We will continue current therapy. We will repeat x-ray in the morning and we will follow up clinically. 2. The patient does have leg/feet discomfort. Seen by Podiatry and ultrasound of the leg was negative. Continue Lasix and continue current therapy. 3. Chronic renal failure with acute worsening. It seems better, improving. Creatinine went down from 2 to 1.5. Continue to monitor kidney functions. 4. 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 We will decrease steroids slowly and I will follow up clinically. Continue physical therapy. 5. Diabetes, insulin dependent. Continue to monitor sugar. The patient getting insulin, Humalog, and Levemir. We will monitor blood sugar and we will follow up clinically. 6. Continue gastrointestinal and deep venous thrombosis prophylaxis. The patient is otherwise stable. Follow up clinically. Follow up with other solutions architect consultant. Sloan Sosa MD
--- NOTE | 2017-03-13 00:57 | PN ---
DATE: 03/12/2017 SUBJECTIVE: The patient is better today. She still feels weak, but breathing is better and she has no chest pain. Blood sugar went down in the 30s range and insulin adjusted. PHYSICAL EXAMINATION: Her physical examination on 05/13/2016 is as follows: VITAL SIGNS: Temperature 98.2, heart rate 99, blood pressure 139/62, respirations 20, saturation 95%. HEAD AND NECK: Normal. No JVD. No thyromegaly. LUNGS: Decreased breath sounds on the bases, left more than right and a few rhonchi. CARDIAC: First sound and second sound normal. ABDOMEN: Soft and nontender. EXTREMITIES: No edema. NEUROLOGIC: Normal. LABORATORY STUDIES: The patient has sodium 142, potassium 4.5, chloride 106, bicarbonate 28, BUN 59, creatinine 1.7, blood sugar 192 and went down to 67 and 64, calcium 7.6, and the patient also had a CBC which shows white count 14.6, hemoglobin 9.5, hematocrit 31.8, and platelets 297. IMPRESSION AND PLAN: 1. Acute chronic obstructive pulmonary disease exacerbation, community-acquired pneumonia. Chronic obstructive pulmonary disease exacerbation. Continue inhaled and intravenous bronchodilators. The patient is still getting steroids, 20 mg intravenous q.12. We will decrease it and continue DuoNeb. Continue Mucomyst, Cepacol, and Zithromax. Seems better. We will check the x-ray done today. X-ray is being done and read and it shows no active disease, no significant change compared to the prior exam and here the lung shows no active disease. We will continue current therapy. We will decrease steroids when clinically stable. 2. Diabetes, insulin-dependent diabetes. The patient has low sugar. We will decrease the Humalog from 40, we will go 30, then we will increase when it is needed, probably 35 will be appropriate, but we will monitor her sugar over the holiday. 3. Renal failure, chronic neck pain, chronic spine osteoarthritis, chronic anxiety, depression. The patient seems stable. Continue oxycodone and Xanax for her symptomatic treatment and also for active smoking, she will get Nicoderm CQ one patch daily. The patient otherwise seems stable, and we will follow up clinically. Sloan Sosa MD
[2017-03-13] MEDS: Oxycodone/Acetaminophen 5/325 mg Tab PO PRN ×3 (03:54→15:38)
[2017-03-13] MEDS: Albuterol-Ipratrop 3 mg / 0.5 (3 ml) UD IH SCH ×6 (04:02→23:45)
[2017-03-13] MEDS: Acetylcysteine 20% Inhal Soln (4ml) IH SCH ×3 (08:20→21:30)
[2017-03-13] MEDS: Insulin Detemir 100 units/ml Vial (Levemir) SC SCH ×2 (10:04→17:53)
[2017-03-13] MEDS: Insulin Lispro 1 UNITS/0.01 ML SC SCH ×2 (10:04→17:53)
[2017-03-13] MEDS: Pantoprazole 40 mg EC Tab PO SCH (10:09)
[2017-03-13] MEDS: MethylPREDNISolone 40 mg Vial IV SCH (11:31)
--- NOTE | 2017-03-13 12:21 | CP.PCM.PN ---
Subjective - Date & Time of Evaluation Date of Evaluation: 03/13/17 Time of Evaluation: 10:00 - Subjective Subjective: Podiatry Progress Note - Dr. Mccarthy/Ilan 56 year old female patient seen and evaluated at bedside for left leg pain. Patient resting comfortably, hemodynamically stable and NAD. Daughter present at bedside. Denies any acute events overnight. Patient has no complaints to her left leg today, however is still complaining of left knee pain from longstanding arthritis. Denies N/V/F/D/C/SOB/calf pain. Objective - Vital Signs/Intake and Output Vital Signs (last 24 hours): Temp Pulse Resp BP Pulse Ox 98.1 F 104 H 18 161/75 H 98 03/13/17 08:22 03/13/17 08:22 03/13/17 08:22 03/13/17 11:30 03/13/17 08:22 Intake and Output: 03/13/17 03/13/17 06:59 18:59 Intake Total 660 Output Total 1000 Balance -340 - Medications Medications: Current Medications Acetylcysteine (Acetylcysteine 20%) 4 ml IH Q8 [facility] Last Admin: 03/13/17 08:20 Dose: Not Given Albuterol/Ipratropium (Duoneb 3 Mg/0.5 Mg (3 Ml) Ud) 3 ml IH [id number] [facility] Last Admin: 03/13/17 08:20 Dose: Not Given Alprazolam (Xanax) 0.5 mg PO QID [facility] PRN Reason: Protocol Last Admin: 03/13/17 11:30 Dose: 0.5 mg Amlodipine Besylate (Norvasc) 2.5 mg PO DAILY [facility] Last Admin: 03/13/17 11:30 Dose: 2.5 mg Azithromycin (Zithromax) 250 mg PO DAILY [facility] PRN Reason: Protocol Stop: 03/17/17 10:01 Last Admin: 03/13/17 10:05 Dose: 250 mg Benzocaine/Menthol (Cepacol Sore Throat) 1 vy MT Q2H PRN PRN Reason: Sore Throat Last Admin: 03/12/17 21:32 Dose: 1 vy Heparin Sodium (Porcine) (Heparin) 5,000 units SC Q12 [facility] PRN Reason: Protocol Last Admin: 03/13/17 10:02 Dose: 5,000 units Propofol (Diprivan) 1,000 mg in 100 mls @ 2.041 mls/hr IV .Q24H PRN; Protocol; 5 MCG/KG/MIN PRN Reason: TITRATE PER MD ORDER Last Titration: 03/06/17 07:52 Dose: 0 mcg/kg/min, 0 mls/hr Insulin Detemir (Levemir) 20 unit SC BID [facility] Last Admin: 03/13/17 10:04 Dose: 20 unit Insulin Human Lispro (Humalog) 30 units SC BID [facility] Last Admin: 03/13/17 10:04 Dose: 30 units Methylprednisolone (Solu-Medrol) 30 mg IV 12 [facility] Last Admin: 03/13/17 11:31 Dose: 30 mg Nicotine (Nicoderm Cq) 1 patch TD DAILY [facility] Last Admin: 03/13/17 10:05 Dose: 1 patch Oxycodone/Acetaminophen (Percocet 5/325 Mg Tab) 1 tab PO Q6H PRN PRN Reason: Pain, severe (8-10) Stop: 03/14/17 14:31 Last Admin: 03/13/17 10:05 Dose: 1 tab Pantoprazole Sodium (Protonix Ec Tab) 40 mg PO ACB [facility] Last Admin: 03/13/17 10:09 Dose: 40 mg - Labs Labs: 03/12/17 05:30 03/12/17 05:30 PT 14.7 SECONDS (9.4-12.5) H 03/03/17 09:05 INR 1.33 (0.93-1.08) H 03/03/17 09:05 APTT 44.5 Seconds (25.1-36.5) H 03/03/17 09:05 - Constitutional Appears: Well, Non-toxic, No Acute Distress - Extremities Exam Additional comments: VASC: DP and PT pulses palpable b/l. CFT WNL to all digits b/l. Temperature gradient WNL. Bilateral LE +1 pitting edema noted. No increase in warmth noted to bilateral calf. NEURO: Gross sensation intact. DERM: No open lesions noted. Skin appears diffusely dry. Venous stasis dermatitis noted circumfirentially to lower leg bilaterally. ORTHO: No tenderness to palpation posterior aspect of left lower leg. No pain on palpation of calf b/l. No palpable cord noted. No pain on compression of calf bilateral. - Neurological Exam Neurological Exam: Alert, Awake, Oriented x3 - Psychiatric Exam Psychiatric exam: Normal Affect, Normal Mood Assessment and Plan - Assessment and Plan (Free Text) Assessment: 56 year old female with left leg pain Plan: Patient seen and evaluated Discussed with attending, Dr. Talavera afebrile Bilateral venous duplex negative for DVT Will continue to monitor Pain mgmt per medicine Podiatry will continue to follow patient while in house
[2017-03-13] MEDS: Benzocaine/Menthol (Cepacol) Lozenge MT PRN (13:43)
[2017-03-13 16:41] VITALS: TEMP 97.9
--- NOTE | 2017-03-13 19:45 | PN ---
DATE: SUBJECTIVE: She still feels short of breath. She still require oxygen, which is needed from before. The patient currently on steroids IV. No chest pain. No other complaints. PHYSICAL EXAMINATION VITAL SIGNS: Noted for, temperature 98.1, heart rate 104, blood pressure 160/75, respirations 18, saturation 98%. HEAD AND NECK: Normal. No JVD. No thyromegaly. CHEST: Clear. Diminished breath sounds on the left side. CARDIAC: First sound and second sound normal. ABDOMEN: Soft, obese, nontender. EXTREMITIES: No edema. NEUROLOGICAL: Normal. LABORATORY DATA: Blood sugar 167. Chest x-ray reported no active pulmonary disease. IMPRESSION AND PLAN: 1. Acute chronic obstructive pulmonary disease exacerbation. Continue inhaled IV bronchodilators as per Pulmonary. Continue p.o. antibiotics Zithromax. The patient will gradually taper the steroids. 2. Insulin-dependent diabetes. The patient had an episode of low sugar. Currently blood sugar in the 160. Continue Humalog 30 b.i.d. and Levemir 20 b.i.d. 3. History of breast cancer. We will follow up as outpatient. 4. Hypertension. Blood pressure running high. We will start the patient Norvasc 2.5 mg p.o. daily. We will hold off on any angiotensin receptor blockers. 5. Acute renal failure on top of chronic worsening. The patient is stable. We will follow with Nephrology. Continue current therapy. Sloan Sosa MD
[2017-03-13] MEDS ORDERED: Insulin Regular 1 UNITS/0.01 ML ML SC STA (21:33)
--- NOTE | 2017-03-13 23:20 | PN ---
PULMONARY PROGRESS NOTE DATE: 03/13/2017 REFERRING PHYSICIAN: Sloan Sosa MD SUBJECTIVE: The patient is sitting at the side of the bed, feels tired and sleepy. Cough is better. No nausea. No vomiting. No diarrhea. Trace leg swelling. OBJECTIVE: GENERAL: In no acute distress. VITAL SIGNS: Temperature is 98, heart rate is 104, respiratory rate is 20, blood pressure is 148/64, and pulse oximetry is 96% on nasal cannula. HEENT: Moist mucous membranes. No ulcer or thrush. NECK: Supple. No JVD. LUNGS: Has a fair airflow with few scattered rhonchi. HEART: S1 and S2. ABDOMEN: Soft and nontender. No organomegaly. EXTREMITIES: Trace edema. NEUROLOGIC: Awake and alert. Follows simple commands. MEDICATIONS: She is on Cepacol lozenges p.r.n. basis, DuoNeb q.4 hours, heparin 5000 units subcutaneously q.12 hours, insulin coverage, Levemir 20 units subcutaneously twice a day, Nicoderm patch daily, Norvasc 2.5 mg daily, Percocet 5/325 one tablet q.6 hours p.r.n., Protonix 40 mg daily, Solu-Medrol 30 mg IV q.12 hours, Xanax 0.5 mg four times daily, and Zithromax 250 mg daily. LABORATORY DATA: Reviewed and noted. Blood sugar of 324. She had a chest x-ray done yesterday, which shows no active pulmonary disease. She has a venous Doppler of lower extremity done day before yesterday, which shows no DVT noted. IMPRESSION AND PLAN: Chronic obstructive lung disease, status post respiratory failure, extubated, on nasal cannula, active smoker, history of recurrent pneumonia, diabetes, and chronic pain syndrome. Pulmonary point of view, doing okay. Continue IV and inhaled bronchodilators. Continue antibiotics, fall precaution, gastric prophylaxis, deep venous thrombosis prophylaxis, and keep Nicoderm patch on as the patient to stop smoking. Thank you and we will follow with you. Lisa Rucker MD
[2017-03-14] MEDS: Albuterol-Ipratrop 3 mg / 0.5 (3 ml) UD IH SCH ×2 (03:29→14:49)
[2017-03-14 08:15] VITALS: BP 140/65; PULSE 99; RESP 20; O2SAT 99
[2017-03-14] MEDS: Oxycodone/Acetaminophen 5/325 mg Tab PO PRN (08:33)
[2017-03-14] MEDS: Pantoprazole 40 mg EC Tab PO SCH (08:33)
--- NOTE | 2017-03-14 09:39 | PN ---
SUBJECTIVE: The patient is in bed, in no acute distress, nontoxic. PHYSICAL EXAMINATION: VITAL SIGNS: On exam, temperature is 98, blood pressure is 160/70, respiratory rate of 18, heart rate of 101. HEENT: Unremarkable. NECK: Supple. LUNGS: Decreased breath sounds. HEART: Normal S1, S2. ABDOMEN: Soft. LABORATORY EXAMINATION: Reveals a white count of 14,600, hemoglobin of 9, platelets of 297. Chemistries are noted. BUN of 59, creatinine of 1.7. ASSESSMENT AND PLAN: This is a 56-year-old female with history of Carmen esophagitis and history of respiratory failure, was admitted with respiratory failure, intubated on a ventilator, end-stage chronic obstructive lung disease, history of breast cancer, diabetes, hypertension, Enterococcus urinary tract infection with severe sepsis and healthcare-associated pneumonia, respiratory failure, acute kidney injury. The patient is now extubated, comfortable and currently on p.o. Zithromax. We will follow with you. Prasanth Malcolm MD
[2017-03-14] MEDS: Insulin Detemir 100 units/ml Vial (Levemir) SC SCH (09:52)
[2017-03-14] MEDS: Insulin Lispro 1 UNITS/0.01 ML SC SCH (09:53)
[2017-03-14] MEDS: MethylPREDNISolone 40 mg Vial IV SCH (11:57)
--- NOTE | 2017-03-14 14:40 | PN ---
DATE: 03/14/2017 SUBJECTIVE: The patient is in bed, in no acute distress, nontoxic. PHYSICAL EXAMINATION: VITAL SIGNS: Temperature is 97, blood pressure is 140/60, and respiratory rate of 18. HEENT: Unremarkable. NECK: Supple. LUNGS: Have decreased breath sounds. HEART: Normal S1 and S2. ABDOMEN: Soft and nontender. LABORATORY DATA: Reveals white count of 14,600 and hemoglobin of 9. Chemistries reveals the BUN is noted and creatinine is 1.7. ASSESSMENT AND PLAN: A 56-year-old female with history of Carmen esophagitis, and history of respiratory failure, was admitted with respiratory failure, intubated on a ventilator with end-stage chronic obstructive lung disease, history of breast cancer, diabetes, hypertension, Enterococcus urinary tract infection with severe sepsis, healthcare-associated pneumonia, respiratory failure, and acute kidney injury. The patient is now extubated, comfortable on p.o. Zithromax and the patient is also on Solu-Medrol. Prasanth Malcolm MD
[2017-03-14] MEDS: Acetylcysteine 20% Inhal Soln (4ml) IH SCH (14:50)
--- NOTE | 2017-03-16 08:16 | DS ---
DATE: 03/14/2017 HISTORY OF PRESENT ILLNESS: Patient was admitted with acute COPD exacerbation, seems doing well. Patient also was given antibiotics. Initially, when she came in was given p.o. Zithromax. She seems doing well. Her acute COPD improved with IV steroids and IV antibiotics. She was given also nebulizer treatments and was maintained on including insulin, maintained on anti-anxiety medications. Patient initially was admitted with respiratory failure to ICU, wheeze and then she was extubated without any complications. Patient was maintained on IV steroids, maintained on oxygen, IV antibiotics. Repeat x-ray shows no interim events. Patient was tapered down to steroids. She was maintained on physical therapy and antibiotics. She was seen by Renal Consult, Dr. Hurd and Pulmonary Consult, Dr. Rucker, and the patient was doing fairly well. She was getting also Xanax and Percocet for chronic back pain and she will be discharged today which is 03/14/2017. PHYSICAL EXAMINATION: VITAL SIGNS: Temperature 97.9, heart rate 99, blood pressure 140/65, respirations 20, and saturation 99%. HEAD AND NECK: Normal. No JVD. No thyromegaly. CHEST: Clear. CARDIAC: First sound and second sound are normal. ABDOMEN: Soft and nontender. EXTREMITIES: No edema. NEUROLOGIC: Within normal range and she has general weakness. LABORATORY DATA: Her BUN and creatinine went up, but on IV hydration and physical therapy, her creatinine went down to her baseline which is 1.7, unfortunately during hospitalization because of the reading but she is stable now. Patient is also seen by Podiatry, she had a venous Doppler ultrasound which is negative. Tolerating DVT. Patient was maintained on some Lovenox and physical therapy. Patient seen by ID consult, and her last x-ray was on 03/12/2017 was negative, really no active pulmonary disease. DISCHARGE DIAGNOSES: 1. Acute respiratory failure. 2. Status post Intensive Care Unit intubation and extubation. 3. Community-acquired pneumonia. 4. Acute chronic obstructive pulmonary disease exacerbation. 5. Acute injury. 6. History of breast cancer. 7. Chronic back pain. 8. Chronic anxiety. Plan resume all meds as before and her diet diabetic . Follow up with you in a week. Follow up Oncology. Patient seems noncompliant with ____ as an outpatient and we will continue current therapy. . Continue all the meds, . Sloan Sosa MD
== END 2017-03-14 15:43 | disposition home or self-care (01) | DRG 584 ==
LOC: ED 09:06 → ERH 09:58 → CCU 11:23 → 3RSO 03-07 09:21 → 3RNO 03-10 11:42
PROVIDERS: ADMIT Internal Medicine; ATTEND Internal Medicine
PROC: 5A1945Z Respiratory Ventilation, 24-96 Consecutive Hours (ICD-10-PCS; principal; 2017-03-03)
PROC: 0BH17EZ Insertion of Endotracheal Airway into Trachea, Via Natural or Artificial Opening (ICD-10-PCS; 2017-03-03)
PROC: 3E0F7GC Introduction of Other Therapeutic Substance into Respiratory Tract, Via Natural or Artificial Opening (ICD-10-PCS; 2017-03-03)
DX: A41.9 Sepsis, unspecified organism (principal); J18.9 Pneumonia, unspecified organism; J44.1 Chronic obstructive pulmonary disease with (acute) exacerbation; J96.01 Acute respiratory failure with hypoxia; J96.02 Acute respiratory failure with hypercapnia; N17.9 Acute kidney failure, unspecified; N39.0 Urinary tract infection, site not specified; E87.4 Mixed disorder of acid-base balance; J91.8 Pleural effusion in other conditions classified elsewhere; N18.3 Chronic kidney disease, stage 3 (moderate); B37.81 Candidal esophagitis; J44.0 Chronic obstructive pulmonary disease with (acute) lower respiratory infection; E11.22 Type 2 diabetes mellitus with diabetic chronic kidney disease; E87.0 Hyperosmolality and hypernatremia; F11.10 Opioid abuse, uncomplicated; E11.65 Type 2 diabetes mellitus with hyperglycemia; R65.20 Severe sepsis without septic shock; C50.912 Malignant neoplasm of unspecified site of left female breast; D64.9 Anemia, unspecified; F41.9 Anxiety disorder, unspecified; I12.9 Hypertensive chronic kidney disease with stage 1 through stage 4 chronic kidney disease, or unspecified chronic kidney disease; G89.4 Chronic pain syndrome; M47.9 Spondylosis, unspecified; I25.10 Atherosclerotic heart disease of native coronary artery without angina pectoris; J02.9 Acute pharyngitis, unspecified; Y95 Nosocomial condition; F32.9 Major depressive disorder, single episode, unspecified; M54.2 Cervicalgia; K21.9 Gastro-esophageal reflux disease without esophagitis; F17.210 Nicotine dependence, cigarettes, uncomplicated; Z99.81 Dependence on supplemental oxygen; Z79.4 Long term (current) use of insulin; Z91.19 Patient's noncompliance with other medical treatment and regimen; Z87.442 Personal history of urinary calculi; Z87.440 Personal history of urinary (tract) infections; Z88.1 Allergy status to other antibiotic agents

== ENCOUNTER 2017-05-03 06:44 | Emergency (ER) | payer MEDICAID ==
[2017-05-03 06:45] VITALS: BMI 25.7
[2017-05-03] MEDS ORDERED: TDAP Vaccine 0.5 mL Syr IM ONE (07:33)
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
--- NOTE | 2017-05-03 08:23 | RAD ---
HISTORY: sob COMPARISON: Chest radiographs 03/12/2017. FINDINGS: Right chest port unchanged in position. LUNGS: Limited patchy atelectasis or infiltrate seen at the right base lateral to the right heart border, obscured in fact, and therefore suggesting a right middle lobe location. Volume loss of the right lung remains with rightward mediastinal shift again noted chronically. Fibrotic changes again seen the mid to inferior right lung zone on a chronic basis. No left-sided infiltrate. PLEURA: No significant pleural effusion identified, no pneumothorax apparent. CARDIOVASCULAR: Normal. OSSEOUS STRUCTURES: No significant abnormalities. VISUALIZED UPPER ABDOMEN: Normal. OTHER FINDINGS: None. IMPRESSION: Interval limited atelectasis or infiltrate noted at the right base, likely in the right middle lobe. Volume loss the right lung is stable as well as mid to inferior right pulmonary fibrosis. No left-sided infiltrate identified.
[2017-05-03 08:30] LABS: BASO # 0.02 K/mm3 (0.0-2.0); BASO % 0.3 % (0.0-3.0); EOS # 0.2 (0.0-0.7); EOS % 2.1 % (1.5-5.0); GRAN # 5.78 (1.4-6.5); GRAN % 75.6 % (50.0-68.0); HEMOGLOBIN 9.1 g/dL (12.0-16.0); LYMPH # 1.2 (1.2-3.4); LYMPH % 15.3 % (22.0-35.0); MEAN CELL VOLUME 94.7 fl (80.0-105.0); MEAN CORPUSCULAR HEMOGLOBIN 28.3 pg (25.0-35.0); MEAN CORPUSCULAR HGB CONC 29.9 g/dl (31.0-37.0); MEAN PLATELET VOLUME 9.7 fl (7.0-11.0); MONO # 0.5 (0.1-0.6); MONO % 6.7 % (1.0-6.0); RBC 3.21 10^6/uL (3.5-6.1); WHITE BLOOD COUNT 7.6 10^3/ul (4.5-11.0)
[2017-05-03 08:35] LABS: URINE BILIRUBIN NEGATIVE (NEGATIVE); URINE BLOOD MODERATE (NEGATIVE); URINE GLUCOSE (UA) NEGATIVE (NEGATIVE); URINE LEUKOCYTE ESTERASE LARGE Leu/uL (NEGATIVE); URINE NITRATE NEGATIVE (NEGATIVE); URINE PROTEIN 100 mg/dL (<30 mg/dL); URINE UROBILINOGEN 0.2 E.U./dL (<1 E.U./dL)
[2017-05-03 08:36] LABS: URINE APPEARANCE SLIGHT-CLOUDY (CLEAR); URINE COLOR LIGHT YELLOW (YELLOW)
[2017-05-03 08:40] LABS: ALB/GLOB RATIO 1.2 (1.1-1.8); ALBUMIN 3.4 g/dL (3.0-4.8); CALCIUM 9.1 mg/dL (8.4-10.5)
[2017-05-03 08:45] LABS: URINE RBC 25 - 30 /hpf (0-2)
[2017-05-03 08:46] LABS: URINE BACTERIA MANY (NEG); URINE WBC TNTC /hpf (0-6)
[2017-05-03] MEDS ORDERED: cefTRIAXone 1 gm 1 GM/100 ML BAG IVPB STA (08:48)
[2017-05-03 08:49] LABS: URINE AMORPHOUS SEDIMENT SMALL
[2017-05-03] MEDS ORDERED: Azithromycin 500MG/NS 250ml 500 MG/250 ML BAG IVPB STA (08:49)
[2017-05-03 08:50] LABS: INR 1.34 (0.93-1.08); PROTHROMBIN TIME 13.2 SECONDS (9.4-12.5)
[2017-05-03] MEDS ORDERED: Bacitracin Ointment 30 GM TUBE TOP STA (08:54)
[2017-05-03] MEDS ORDERED: Bacitracin 500 Units/gm Oint Foilpak UD TOP ONE (09:00)
[2017-05-03 13:15] VITALS: O2SAT 99
[2017-05-03] MEDS ORDERED: Oxycodone/Acetaminophen 5/325 mg Tab PO PRN (13:50)
[2017-05-03] MEDS ORDERED: Albuterol-Ipratrop 3 mg / 0.5 (3 ml) UD IH SCH (14:00)
[2017-05-03] MEDS ORDERED: Non Formulary Medication (Simvastatin [Simvastatin] 10 MG) PO SCH (14:00)
--- NOTE | 2017-05-03 15:25 | CARD ---
APPROVED REPORT EKG Measurement Heart [id number] <Conclusion> Sinus tachycardia Nonspecific ST and T wave abnormality
[2017-05-03 16:03] VITALS: BP 124/44; PULSE 81; RESP 18; TEMP 98.7
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
[2017-05-03] MEDS ORDERED: [UNRECOGNIZED DRUG - OTHER] SC SCH (18:00)
[2017-05-03] MEDS ORDERED: INSULIN ASPART SC SCH (18:00)
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
== END 2017-05-03 17:12 | disposition left against medical advice (07) ==
LOC: ED 06:44 → ERH 09:55 → UNDOADMIN 09:55 → ED 17:12
DX: J18.9 Pneumonia, unspecified organism (principal); F17.210 Nicotine dependence, cigarettes, uncomplicated; Z99.81 Dependence on supplemental oxygen; T20.26XA Burn of second degree of forehead and cheek, initial encounter; T20.25XA Burn of second degree of scalp [any part], initial encounter; X08.8XXA Exposure to other specified smoke, fire and flames, initial encounter; Y92.009 Unspecified place in unspecified non-institutional (private) residence as the place of occurrence of the external cause; I10 Essential (primary) hypertension; E11.9 Type 2 diabetes mellitus without complications; Z79.4 Long term (current) use of insulin; Z23 Encounter for immunization
CPT/HCPCS: 71045; 80053; 81001; 82140; 85025; 85610; 87040; 87086; 90471; 90715; 93005; 96365; 96366; 96367; 99285; J0456; J0696

== ENCOUNTER 2017-06-16 14:30 | Inpatient (IN) | payer MEDICAID ==
[2017-06-16] MEDS ORDERED: Magnesium Sulfate 2 GM in Sodium Chloride 0.9% 100 ML IVPB ONE (15:02)
[2017-06-16] MEDS: Albuterol-Ipratrop 3 mg / 0.5 (3 ml) UD IH SCH ×2 (16:00→16:22)
--- NOTE | 2017-06-16 16:03 | RAD ---
HISTORY: Infiltrate. COMPARISON: 05/03/2017. FINDINGS: LUNGS: Interval improvement previously identified right lower lobe infiltrate PLEURA: No significant pleural effusion identified, no pneumothorax apparent. CARDIOVASCULAR: No radiographic findings to suggest acute or significant cardiovascular disease. Venous access catheter in stable, satisfactory position. OSSEOUS STRUCTURES: No significant abnormalities. VISUALIZED UPPER ABDOMEN: Normal. OTHER FINDINGS: None. IMPRESSION: Near complete resolution right lower lobe infiltrate.
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
[2017-06-16 16:23] LABS: ARTERIAL BLOOD GAS HCO3 30.9 mmol/L (21-28); ARTERIAL BLOOD GAS HEMOGLOBIN 10.4 g/dL (11.7-17.4); ARTERIAL BLOOD GAS O2 CAPACITY 14.4 mL/dl (16-24); ARTERIAL BLOOD GAS O2 CONTENT 14.1 ML/dl (15-23); ARTERIAL BLOOD GAS O2 SAT 98.2 % (95-98); ARTERIAL BLOOD GAS PCO2 56 mm/Hg (35-45); ARTERIAL BLOOD GAS PH 7.35 (7.35-7.45); ARTERIAL BLOOD GAS TCO2 32.6 mmol.L (22-28)
[2017-06-16 16:38] LABS: BASO # 0.02 K/mm3 (0.0-2.0); BASO % 0.3 % (0.0-3.0); EOS # 0.1 (0.0-0.7); EOS % 1.8 % (1.5-5.0); GRAN # 4.82 (1.4-6.5); GRAN % 65.7 % (50.0-68.0); HEMOGLOBIN 8.8 g/dL (12.0-16.0); LYMPH # 1.7 (1.2-3.4); LYMPH % 22.8 % (22.0-35.0); MEAN CELL VOLUME 91.5 fl (80.0-105.0); MEAN CORPUSCULAR HEMOGLOBIN 27.8 pg (25.0-35.0); MEAN CORPUSCULAR HGB CONC 30.3 g/dl (31.0-37.0); MEAN PLATELET VOLUME 9.7 fl (7.0-11.0); MONO # 0.7 (0.1-0.6); MONO % 9.4 % (1.0-6.0); RBC 3.17 10^6/uL (3.5-6.1); RED CELL DISTRIBUTION WIDTH 14.5 % (11.5-14.5); WHITE BLOOD COUNT 7.3 10^3/ul (4.5-11.0)
[2017-06-16 16:47] LABS: ALB/GLOB RATIO 1.4 (1.1-1.8); ALT/SGPT 21 U/L (7-56); AST/SGOT 22 U/L (14-36); BLOOD UREA NITROGEN 39 mg/dL (7-21); CALCIUM 9.1 mg/dL (8.4-10.5); GFR AFRICAN-AMERICAN 43; GFR NON-AFRICAN AMERICAN 36
[2017-06-16 16:58] LABS: B-TYPE NATRIURETIC PEPTIDE 538 pg/mL (0-450); TROPONIN I < 0.01 ng/mL
[2017-06-16 18:25] VITALS: O2SAT 99
--- NOTE | 2017-06-16 20:17 | CARD ---
APPROVED REPORT EKG Measurement Heart [id number] <Conclusion> Normal sinus rhythm Right atrial enlargement Borderline ECG
[2017-06-16 21:05] VITALS: BP 161/69; PULSE 85; RESP 18; TEMP 98.4
[2017-06-16] MEDS ORDERED: Albuterol-Ipratrop 3 mg / 0.5 (3 ml) UD IH PRN (21:40)
[2017-06-16] MEDS: MethylPREDNISolone 40 mg Vial IVP SCH (22:04)
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
[2017-06-16] MEDS: Oxycodone/Acetaminophen 5/325 mg Tab PO SCH (23:33)
[2017-06-17] MEDS: Albuterol-Ipratrop 3 mg / 0.5 (3 ml) UD IH SCH ×6 (00:20→20:55)
[2017-06-17] MEDS: Oxycodone/Acetaminophen 5/325 mg Tab PO SCH ×4 (05:24→23:11)
[2017-06-17 06:03] LABS: HEMOGLOBIN 10.6 g/dL (12.0-16.0); MEAN CELL VOLUME 88.6 fl (80.0-105.0); MEAN CORPUSCULAR HGB CONC 31.6 g/dl (31.0-37.0); RBC 3.78 10^6/uL (3.5-6.1); RED CELL DISTRIBUTION WIDTH 14.2 % (11.5-14.5); WHITE BLOOD COUNT 4.3 10^3/ul (4.5-11.0)
[2017-06-17 06:50] LABS: ALB/GLOB RATIO 1.4 (1.1-1.8); ALBUMIN 4.1 g/dL (3.0-4.8); CALCIUM 9.2 mg/dL (8.4-10.5)
[2017-06-17] MEDS ORDERED: Insulin Lispro (humaLOG) LOW Coverage SC SCH (07:30)
[2017-06-17] MEDS ORDERED: Insulin Lispro 1 UNITS/0.01 ML SC SCH (07:30)
[2017-06-17] MEDS ORDERED: Insulin Lispro (humaLOG) MEDIUM Coverage SC SCH (07:30)
[2017-06-17] MEDS: Insulin Lispro (HUMAlog) HIGH Coverage SC SCH ×4 (08:40→21:51)
[2017-06-17] MEDS: cefTRIAXone 1 gm 1 GM/100 ML BAG IVPB SCH (10:27)
[2017-06-17] MEDS: MethylPREDNISolone 40 mg Vial IVP SCH ×2 (10:28→21:50)
[2017-06-17] MEDS: Azithromycin 500MG/NS 250ml 500 MG/250 ML BAG IVPB SCH (12:22)
[2017-06-17] MEDS: Sodium Chloride 0.9% 1,000 ML IV SCH (17:28)
[2017-06-18] MEDS ORDERED: Insulin Lispro 1 UNITS/0.01 ML SC ONE (02:30)
[2017-06-18] MEDS: Albuterol-Ipratrop 3 mg / 0.5 (3 ml) UD IH SCH ×6 (03:48→22:00)
[2017-06-18] MEDS: Oxycodone/Acetaminophen 5/325 mg Tab PO SCH ×4 (06:18→22:57)
[2017-06-18] MEDS: Sodium Chloride 0.9% 1,000 ML IV SCH ×2 (06:22→20:16)
[2017-06-18 07:34] LABS: HEMOGLOBIN 9.4 g/dL (12.0-16.0); MEAN CORPUSCULAR HEMOGLOBIN 27.7 pg (25.0-35.0); MEAN CORPUSCULAR HGB CONC 30.8 g/dl (31.0-37.0); MEAN PLATELET VOLUME 10.3 fl (7.0-11.0); RBC 3.39 10^6/uL (3.5-6.1); RED CELL DISTRIBUTION WIDTH 14.8 % (11.5-14.5); WHITE BLOOD COUNT 8.9 10^3/ul (4.5-11.0)
[2017-06-18 07:40] LABS: ALB/GLOB RATIO 1.4 (1.1-1.8); ALBUMIN 3.7 g/dL (3.0-4.8); ALT/SGPT 19 U/L (7-56); AST/SGOT 12 U/L (14-36); BLOOD UREA NITROGEN 50 mg/dL (7-21); CALCIUM 8.3 mg/dL (8.4-10.5); GFR AFRICAN-AMERICAN 35; GFR NON-AFRICAN AMERICAN 29
[2017-06-18] MEDS: Insulin Lispro (HUMAlog) HIGH Coverage SC SCH ×4 (09:00→22:07)
--- NOTE | 2017-06-18 09:07 | CT ---
PROCEDURE: CT HEAD WITHOUT CONTRAST. HISTORY: s/p fall, unsteady COMPARISON: 03/03/2017 TECHNIQUE: Axial computed tomography images were obtained through the head/brain without intravenous contrast. Coronal and sagittal reconstructed images. Radiation dose: Total exam DLP = 794.25 mGy-cm. This CT exam was performed using one or more of the following dose reduction techniques: Automated exposure control, adjustment of the mA and/or kV according to patient size, and/or use of iterative reconstruction technique. FINDINGS: HEMORRHAGE: No intracranial hemorrhage. BRAIN: No mass effect or edema. No atrophy or chronic microvascular ischemic changes. VENTRICLES: Unremarkable. No hydrocephalus. CALVARIUM: Unremarkable. PARANASAL SINUSES: Unremarkable as visualized. No significant inflammatory changes. MASTOID AIR CELLS: Unremarkable as visualized. No inflammatory changes. OTHER FINDINGS: None. IMPRESSION: No acute intracranial abnormalities. No significant findings to account for the clinical presentation. No significant interval change compared to the prior examination(s). Concordant results (preliminary interpretation) provided by [facility]. Procedure Completed: 18:50 Preliminary ([facility]) Report: Dictated and Authenticated: 07:08 Final Interpretation: 09:00 June 18, 2017.
--- NOTE | 2017-06-18 09:33 | CP.PCM.PN ---
<Leeann Chew - Last Filed: 06/18/17 13:16> Subjective - Date & Time of Evaluation Date of Evaluation: 06/18/17 Time of Evaluation: 09:32 - Subjective Subjective: PGY-2 progress note for hospitalist service patient seen and examined at bedside. No acute distress. Nurse reports no acute events overnight. patient's blood glucose was elevated yesterday evening. Patient states she did have candy at the time. She states her breathing has improved. Denies chest pain, fever, chill, n/v, abd pain. Objective - Vital Signs/Intake and Output Vital Signs (last 24 hours): Temp Pulse Resp BP Pulse Ox 98.4 F 85 18 161/69 H 99 06/16/17 19:50 06/17/17 00:21 06/16/17 19:50 06/16/17 19:50 06/16/17 18:25 Intake and Output: 06/18/17 06/18/17 06:59 18:59 Intake Total 360 Balance 360 - Medications Medications: Current Medications Albuterol/Ipratropium (Duoneb 3 Mg/0.5 Mg (3 Ml) Ud) 3 ml IH Q2H PRN PRN Reason: Shortness of Breath Albuterol/Ipratropium (Duoneb 3 Mg/0.5 Mg (3 Ml) Ud) 3 ml IH [id number] [facility] Last Admin: 06/18/17 07:48 Dose: 3 ml Alprazolam (Xanax) 0.5 mg PO QID [facility] PRN Reason: Protocol Last Admin: 06/17/17 23:11 Dose: 0.5 mg Aspirin (Ecotrin) 81 mg PO DAILY [facility] Last Admin: 06/17/17 10:28 Dose: 81 mg Atorvastatin Calcium (Lipitor) 10 mg PO DIN [facility] Last Admin: 06/17/17 17:27 Dose: 10 mg Ergocalciferol (Drisdol 50,000 Intl Units Cap) 1 cap PO Q7D [facility] Famotidine (Pepcid) 20 mg PO DAILY [facility] Last Admin: 06/17/17 10:28 Dose: 20 mg Fenofibrate (Tricor) 48 mg PO DAILY [facility] Last Admin: 06/17/17 10:29 Dose: 48 mg Heparin Sodium (Porcine) (Heparin) 5,000 units SC Q12 [facility] PRN Reason: Protocol Last Admin: 06/17/17 21:50 Dose: 5,000 units Ceftriaxone Sodium (Rocephin 1 Gram Ivpb) 1 gm in 100 mls @ 100 mls/hr IVPB DAILY [facility] PRN Reason: Protocol Last Admin: 06/17/17 10:27 Dose: 100 mls/hr Sodium Chloride (Sodium Chloride 0.9%) 1,000 mls @ 100 mls/hr IV .Q10H [facility] Last Admin: 06/18/17 06:22 Dose: 100 mls/hr Azithromycin (Zithromax 500mg In Ns) 500 mg in 250 mls @ 167 mls/hr IVPB DAILY [facility] PRN Reason: Protocol Last Admin: 06/17/17 12:22 Dose: 167 mls/hr Insulin Detemir (Levemir) 7 unit SC HS [facility] Insulin Human Lispro (Humalog High) 0 units SC ACHS [facility] PRN Reason: Protocol Last Admin: 06/18/17 09:00 Dose: 7 units Methylprednisolone (Solu-Medrol) 40 mg IVP Q12 [facility] Last Admin: 06/17/17 21:50 Dose: 40 mg Oxycodone/Acetaminophen (Percocet 5/325 Mg Tab) 1 tab PO Q6 [facility] Stop: 06/20/17 00:01 Last Admin: 06/18/17 06:18 Dose: 1 tab Tolterodine Tartrate (Detrol) 2 mg PO BID [facility] Last Admin: 06/17/17 17:27 Dose: 2 mg - Labs Labs: 06/18/17 06:30 06/18/17 06:30 - Constitutional Appears: No Acute Distress - Head Exam Head Exam: NORMAL INSPECTION, NORMOCEPHALIC - Eye Exam Eye Exam: EOMI, Normal appearance - ENT Exam ENT Exam: Mucous Membranes Moist - Respiratory Exam Respiratory Exam: Rhonchi, Wheezes, NORMAL BREATHING PATTERN. absent: Respiratory Distress - Cardiovascular Exam Cardiovascular Exam: REGULAR RHYTHM, +S1, +S2. absent: Tachycardia, Murmur - GI/Abdominal Exam GI & Abdominal Exam: Soft, Normal Bowel Sounds. absent: Distended, Firm, Tenderness - Back Exam Back Exam: NORMAL INSPECTION - Neurological Exam Neurological Exam: Alert, Awake, Oriented x3 - Skin Skin Exam: Abrasion (left forehead), Dry, Normal Color, Warm Assessment and Plan - Assessment and Plan (Free Text) Assessment: 56 yo F with PMH of COPD, breast CA, DM, anxiety, chronic back pain, anemia, and arthritis admitted for COPD exacerbation, recently had a fall. Plan: COPD exacerbation - CXR showed no active disease and near complete resolution of RLL infiltrate noted on 05/03/17 - ABG: pH 7.35, pO2 89, pCO2 56 - Influenza negative - O2 via NC 3L - Duoneb jose and prn - Solumedrol decreased to 30 mg q12h - continue Ceftriaxone and azithromycin DAHLIA on CKD - stable - Likely prerenal - continue IVF - Cont to monitor - Hold nephrotoxic medications DM - ISS - started on levemir 10 units q12 - Accucheck ACHS - Carb consistent diet Anemia - Normocytic normochromic - Likely 2/2 chronic disease - Cont to monitor recent fall - fall about 1 montha ago with laceration to [place] - CT head negative - PT evaluation pending H/o HLD - Cont Lipitor and Fenofibrate H/o Chronic back pain - Cont percocet H/o Anxiety - Cont Xanax GI/DVT PPx - Pepcid - Heparin <Adam Ochoa - Last Filed: 06/18/17 13:23> Objective - Vital Signs/Intake and Output Vital Signs (last 24 hours): Temp Pulse Resp BP Pulse Ox 98.4 F 85 18 161/69 H 99 06/16/17 19:50 06/17/17 00:21 06/16/17 19:50 06/16/17 19:50 06/16/17 18:25 Intake and Output: 06/18/17 06/18/17 06:59 18:59 Intake Total 360 Balance 360 - Medications Medications: Current Medications Albuterol/Ipratropium (Duoneb 3 Mg/0.5 Mg (3 Ml) Ud) 3 ml IH Q2H PRN PRN Reason: Shortness of Breath Albuterol/Ipratropium (Duoneb 3 Mg/0.5 Mg (3 Ml) Ud) 3 ml IH [id number] [facility] Last Admin: 06/18/17 11:23 Dose: 3 ml Alprazolam (Xanax) 0.5 mg PO QID [facility] PRN Reason: Protocol Last Admin: 06/18/17 13:12 Dose: 0.5 mg Aspirin (Ecotrin) 81 mg PO DAILY [facility] Last Admin: 06/18/17 09:35 Dose: 81 mg Atorvastatin Calcium (Lipitor) 10 mg PO DIN [facility] Last Admin: 06/17/17 17:27 Dose: 10 mg Ergocalciferol (Drisdol 50,000 Intl Units Cap) 1 cap PO Q7D [facility] Famotidine (Pepcid) 20 mg PO DAILY [facility] Last Admin: 06/18/17 09:35 Dose: 20 mg Fenofibrate (Tricor) 48 mg PO DAILY [facility] Last Admin: 06/18/17 09:36 Dose: 48 mg Heparin Sodium (Porcine) (Heparin) 5,000 units SC Q12 [facility] PRN Reason: Protocol Last Admin: 06/18/17 09:35 Dose: 5,000 units Ceftriaxone Sodium (Rocephin 1 Gram Ivpb) 1 gm in 100 mls @ 100 mls/hr IVPB DAILY [facility] PRN Reason: Protocol Last Admin: 06/18/17 09:36 Dose: 100 mls/hr Sodium Chloride (Sodium Chloride 0.9%) 1,000 mls @ 100 mls/hr IV .Q10H [facility] Last Admin: 06/18/17 06:22 Dose: 100 mls/hr Azithromycin (Zithromax 500mg In Ns) 500 mg in 250 mls @ 167 mls/hr IVPB DAILY [facility] PRN Reason: Protocol Last Admin: 06/18/17 09:36 Dose: 167 mls/hr Insulin Detemir (Levemir) 10 unit SC BID [facility] Insulin Human Lispro (Humalog High) 0 units SC ACHS [facility] PRN Reason: Protocol Last Admin: 06/18/17 09:00 Dose: 7 units Methylprednisolone (Solu-Medrol) 30 mg IVP Q12 [facility] Nicotine (Nicoderm Cq) 1 patch TD DAILY [facility] Last Admin: 06/18/17 10:52 Dose: 1 patch Oxycodone/Acetaminophen (Percocet 5/325 Mg Tab) 1 tab PO Q6 [facility] Stop: 06/20/17 00:01 Last Admin: 06/18/17 13:11 Dose: 1 tab Tolterodine Tartrate (Detrol) 2 mg PO BID [facility] Last Admin: 06/18/17 09:36 Dose: 2 mg - Labs Labs: 06/18/17 06:30 06/18/17 06:30 Attending/Attestation - Attestation I have personally seen and examined this patient.: Yes I have fully participated in the care of the patient.: Yes I have reviewed all pertinent clinical information, including history, physical exam and plan: Yes Notes (Text): 06/18/17 13:20 56 year old female with past medical history of COPD, diabetes and CKD who presented with COPD exacerbation. Continue with iv solumedrol, duonebs and antibiotics. Will taper steroids today. Continue with ivf for acute on chronic kidney disease. Creatinine today is stable at 1.8. Continue with levemir and insulin ss for diabetes. Will monitor fingersticks closely and adjust her medication accordingly. She has old laceration on her scalp from recent fall as per patient. CT head is negative. PT evaluation was requested. Adam Ochoa MD Hospitalist.
[2017-06-18] MEDS: MethylPREDNISolone 40 mg Vial IVP SCH (09:35)
[2017-06-18] MEDS: Azithromycin 500MG/NS 250ml 500 MG/250 ML BAG IVPB SCH (09:36)
[2017-06-18] MEDS: cefTRIAXone 1 gm 1 GM/100 ML BAG IVPB SCH (09:36)
[2017-06-18] MEDS ORDERED: MethylPREDNISolone 40 mg Vial IVP SCH (10:14)
[2017-06-18] MEDS: Insulin Detemir 100 units/ml Vial (Levemir) SC SCH (18:01)
[2017-06-18] MEDS ORDERED: Insulin Detemir 100 units/ml Vial (Levemir) SC SCH (22:00)
[2017-06-19] MEDS: Albuterol-Ipratrop 3 mg / 0.5 (3 ml) UD IH SCH ×4 (04:00→11:11)
[2017-06-19] MEDS: Oxycodone/Acetaminophen 5/325 mg Tab PO SCH ×3 (05:28→12:49)
[2017-06-19] MEDS: Sodium Chloride 0.9% 1,000 ML IV SCH ×2 (05:41→10:43)
[2017-06-19 06:43] LABS: HEMOGLOBIN 9.1 g/dL (12.0-16.0); MEAN CELL VOLUME 91.7 fl (80.0-105.0); MEAN CORPUSCULAR HEMOGLOBIN 27.9 pg (25.0-35.0); MEAN CORPUSCULAR HGB CONC 30.4 g/dl (31.0-37.0); MEAN PLATELET VOLUME 10.5 fl (7.0-11.0); RBC 3.26 10^6/uL (3.5-6.1); RED CELL DISTRIBUTION WIDTH 14.9 % (11.5-14.5); WHITE BLOOD COUNT 8.4 10^3/ul (4.5-11.0)
[2017-06-19 07:27] LABS: ALB/GLOB RATIO 1.4 (1.1-1.8); ALBUMIN 3.7 g/dL (3.0-4.8); ALT/SGPT 13 U/L (7-56); AST/SGOT 11 U/L (14-36); BLOOD UREA NITROGEN 45 mg/dL (7-21); CALCIUM 8.2 mg/dL (8.4-10.5); GFR AFRICAN-AMERICAN 43; GFR NON-AFRICAN AMERICAN 36
[2017-06-19] MEDS: Insulin Lispro (HUMAlog) HIGH Coverage SC SCH ×2 (08:07→12:47)
[2017-06-19] MEDS ORDERED: Sod Polystyrene Sulf 15 gm/60 ml Susp PO ONE (08:29)
[2017-06-19] MEDS ORDERED: MethylPREDNISolone 40 mg Vial IVP SCH (09:06)
[2017-06-19] MEDS ORDERED: Cefpodoxime (Vantin) 200 mg Tab PO SCH (10:00)
[2017-06-19] MEDS: Insulin Detemir 100 units/ml Vial (Levemir) SC SCH (10:42)
[2017-06-19] MEDS: Azithromycin 500MG/NS 250ml 500 MG/250 ML BAG IVPB SCH (10:45)
[2017-06-19] MEDS ORDERED: Insulin Regular 1 UNITS/0.01 ML ML SC ONE (11:30)
[2017-06-19 11:58] LABS: CALCIUM 8.1 mg/dL (8.4-10.5)
--- NOTE | 2017-06-19 15:42 | CP.PCM.DIS ---
<Jessee Maldonado - Last Filed: 06/19/17 18:47> Provider - Provider Date of Admission: 06/17/17 10:30 Attending physician: Lisa Todd MD Primary care physician: Sloan Sosa MD Time Spent in preparation of Discharge (in minutes): 40 Hospital Course - Lab Results Lab Results: Most Recent Lab Values WBC 8.4 10^3/ul (4.5-11.0) 06/19/17 06:00 RBC 3.26 10^6/uL (3.5-6.1) L 06/19/17 06:00 Hgb 9.1 g/dL (12.0-16.0) L 06/19/17 06:00 Hct 29.9 % (36.0-48.0) L 06/19/17 06:00 MCV 91.7 fl (80.0-105.0) 06/19/17 06:00 MCH 27.9 pg (25.0-35.0) 06/19/17 06:00 MCHC 30.4 g/dl (31.0-37.0) L 06/19/17 06:00 RDW 14.9 % (11.5-14.5) H 06/19/17 06:00 Plt Count 271 10^3/uL (120.0-450.0) 06/19/17 06:00 MPV 10.5 fl (7.0-11.0) 06/19/17 06:00 Gran % 65.7 % (50.0-68.0) 06/16/17 15:30 Lymph % (Auto) 22.8 % (22.0-35.0) 06/16/17 15:30 Hoke % (Auto) 9.4 % (1.0-6.0) H 06/16/17 15:30 Eos % (Auto) 1.8 % (1.5-5.0) 06/16/17 15:30 Baso % (Auto) 0.3 % (0.0-3.0) 06/16/17 15:30 Gran # 4.82 (1.4-6.5) 06/16/17 15:30 Lymph # (Auto) 1.7 (1.2-3.4) 06/16/17 15:30 Hoke # (Auto) 0.7 (0.1-0.6) H 06/16/17 15:30 Eos # (Auto) 0.1 (0.0-0.7) 06/16/17 15:30 Baso # (Auto) 0.02 K/mm3 (0.0-2.0) 06/16/17 15:30 pCO2 56 mm/Hg (35-45) H 06/16/17 16:20 pO2 89.0 mm/Hg (80-100) 06/16/17 16:20 HCO3 30.9 mmol/L (21-28) H 06/16/17 16:20 ABG pH 7.35 (7.35-7.45) 06/16/17 16:20 ABG Total CO2 32.6 mmol.L (22-28) H 06/16/17 16:20 ABG O2 Saturation 98.2 % (95-98) H 06/16/17 16:20 ABG O2 Content 14.1 ML/dl (15-23) L 06/16/17 16:20 ABG Base Excess 4.2 mmol/L (-2.0-3.0) H 06/16/17 16:20 ABG Hemoglobin 10.4 g/dL (11.7-17.4) L 06/16/17 16:20 ABG Carboxyhemoglobin 2.3 % (0.5-1.5) H 06/16/17 16:20 POC ABG HHb (Measured) 1.7 % (0-5) 06/16/17 16:20 ABG Methemoglobin 0.7 % (0.0-3.0) 06/16/17 16:20 ABG O2 Capacity 14.4 mL/dl (16-24) L 06/16/17 16:20 Hgb O2 Saturation 95.3 % (95.0-98.0) 06/16/17 16:20 FiO2 28.0 % 06/16/17 16:20 Sodium 139 mmol/L (132-148) 06/19/17 11:24 Potassium 5.4 mmol/L (3.6-5.0) H 06/19/17 11:24 Chloride 105 mmol/L (98-107) 06/19/17 11:24 Carbon Dioxide 24 mmol/L (21-33) 06/19/17 11:24 Anion Gap 15 (10-20) 06/19/17 11:24 BUN 43 mg/dL (7-21) H 06/19/17 11:24 Creatinine 1.5 mg/dl (0.7-1.2) H 06/19/17 11:24 Est GFR ( Amer) 43 06/19/17 11:24 Est GFR (Non-Af Amer) 36 06/19/17 11:24 POC Glucose (mg/dL) 276 mg/dL (65-110) H 06/19/17 11:25 Random Glucose 305 mg/dL (70-110) H* 06/19/17 11:24 Serum Osmolality 318 mosm/kg (272-300) H 06/19/17 11:00 Calcium 8.1 mg/dL (8.4-10.5) L 06/19/17 11:24 Phosphorus 5.3 mg/dL (2.5-4.5) H 06/17/17 05:30 Magnesium 2.3 mg/dL (1.7-2.2) H 06/17/17 05:30 Total Bilirubin < 0.1 mg/dL (0.2-1.3) L 06/19/17 06:00 AST 11 U/L (14-36) L 06/19/17 06:00 ALT 13 U/L (7-56) 06/19/17 06:00 Alkaline Phosphatase 85 U/L (38-126) 06/19/17 06:00 Lactate Dehydrogenase 339 U/L (333-699) 06/16/17 15:30 Total Creatine Kinase 64 U/L (35-230) 06/19/17 11:24 Troponin I < 0.01 ng/mL 06/16/17 15:30 NT-Pro-B Natriuret Pep 538 pg/mL (0-450) H 06/16/17 15:30 Total Protein 6.3 g/dL (5.8-8.3) 06/19/17 06:00 Albumin 3.7 g/dL (3.0-4.8) 06/19/17 06:00 Globulin 2.6 gm/dL 06/19/17 06:00 Albumin/Globulin Ratio 1.4 (1.1-1.8) 06/19/17 06:00 Influenza Typ A,B (EIA) Negative for flu a/b (NEGATIVE) 06/16/17 15:30 - Hospital Course Hospital Course: 56 year old female with a PMH of COPD on 3L at home, anxiety, chronic back pain , DM, anemia, and chronic kidney who presented to [facility] with 4 day history of worsening shortness of breath, a fall, productive cough with white-colored sputum, and NBNB emesis and one episode of diarrhea. CT head showed no acute changes, chest X-ray showed near complete resolution of a pneumonia noted on , while labs showed no leukocytosis and negative influenzae test. Patient was treated with antibiotics, IV steroids, bronchodilators, and by resuming her home medications. The patient blood sugar was poorly controlled on her current diabetic regiment; hence education was provided and her insulin regiment was altered. Also on the day of her discharge she was found to have a potassium of 5.5 and an she was treated with Kayexylate, insulin, and an EKG was performed that showed no changes. Her hyperkalemia was asymptomatic and likely due to IV steroids and her CKD. She was discharged with a Medrol dose patrick, Zithromax and Vantin, smoking cessation counseling, Levemir 10 mg BID, and asked to follow up with her Primary Medical Doctor, Dr. Sosa to recheck BMP (to ensure K comes down) in 1 week. Diabetic education was providing in order to optimize the patient's glycermic control. - Date & Time of H&P Date of H&P: 06/19/17 Time of H&P: 15:00 Discharge Exam - Head Exam Head Exam: NORMAL INSPECTION, NORMOCEPHALIC - Eye Exam Eye Exam: EOMI, Normal appearance - ENT Exam ENT Exam: Mucous Membranes Moist, Normal Oropharynx - Neck Exam Neck exam: Normal Inspection - Respiratory Exam Respiratory Exam: Clear to PA & Lateral, NORMAL BREATHING PATTERN - Cardiovascular Exam Cardiovascular Exam: RRR, +S1, +S2 - GI/Abdominal Exam GI & Abdominal Exam: Normal Bowel Sounds. absent: Rebound - Extremities Exam Extremities exam: normal inspection - Back Exam Back exam: NORMAL INSPECTION. absent: CVA tenderness (L), CVA tenderness (R) - Neurological Exam Neurological exam: Alert, CN II-XII Intact, Oriented x3 - Psychiatric Exam Psychiatric exam: Normal Affect, Normal Mood - Skin Skin Exam: Dry, Intact, Normal Color, Warm Discharge Plan - Discharge Medications Prescriptions: Alprazolam [Xanax] 0.5 mg PO QID #8 tablet Azithromycin [Zithromax Tri-Patrick] 500 mg PO DAILY 5 Days tablet Cefpodoxime [Vantin] 200 mg PO Q12 #10 tab Insulin Detemir [Levemir] 10 unit SC BID 14 Days unit Insulin Lispro [Humalog (Insulin Lispro)] 10 unit SQ AC 14 Days cartridge Methylprednisolone [Medrol Dose Pack (21 tabs)] 4 mg PO DAILY #21 mg - Follow Up Plan Condition: FAIR Disposition: HOME/ ROUTINE Instructions: Chronic Obstructive Pulmonary Disease (COPD), Including Emphysema Additional Instructions: 1. Follow up with Primary care doctor, Dr. Sosa, to recheck BMP in 1 week after discharge. Your potassium was slightly elevated likely due to steroid treatment which induces pre-renal acute kidney injury. Patient's COPD is stable, will taper steroid, which expect kidney function and potassium improves. No EKG changes observed. 2. Continue the whole course of antibiotics, Zithromax and Vantin. 3. Continue the predisone taper 4. Smoke cessation is strongly advised 5. You will be on Levemir (saw boss insulin) 10 units twice daily. You will be on humalog (short term insulin) 10 units before meal (breakfast, lunch, dinner). 6. Please check blood sugar before each meal and before bed. Do not use short- term insulin for that particular meal if blood sugar pre-meal is less than 140. Referrals: Sloan Sosa MD [Primary Care Provider] - <Lisa Todd - Last Filed: 06/20/17 15:25> Provider - Provider Date of Admission: 06/17/17 10:30 Attending physician: Lisa Todd MD Primary care physician: Sloan Sosa MD Hospital Course - Lab Results Lab Results: Most Recent Lab Values WBC 8.4 10^3/ul (4.5-11.0) 06/19/17 06:00 RBC 3.26 10^6/uL (3.5-6.1) L 06/19/17 06:00 Hgb 9.1 g/dL (12.0-16.0) L 06/19/17 06:00 Hct 29.9 % (36.0-48.0) L 06/19/17 06:00 MCV 91.7 fl (80.0-105.0) 06/19/17 06:00 MCH 27.9 pg (25.0-35.0) 06/19/17 06:00 MCHC 30.4 g/dl (31.0-37.0) L 06/19/17 06:00 RDW 14.9 % (11.5-14.5) H 06/19/17 06:00 Plt Count 271 10^3/uL (120.0-450.0) 06/19/17 06:00 MPV 10.5 fl (7.0-11.0) 06/19/17 06:00 Gran % 65.7 % (50.0-68.0) 06/16/17 15:30 Lymph % (Auto) 22.8 % (22.0-35.0) 06/16/17 15:30 Hoke % (Auto) 9.4 % (1.0-6.0) H 06/16/17 15:30 Eos % (Auto) 1.8 % (1.5-5.0) 06/16/17 15:30 Baso % (Auto) 0.3 % (0.0-3.0) 06/16/17 15:30 Gran # 4.82 (1.4-6.5) 06/16/17 15:30 Lymph # (Auto) 1.7 (1.2-3.4) 06/16/17 15:30 Hoke # (Auto) 0.7 (0.1-0.6) H 06/16/17 15:30 Eos # (Auto) 0.1 (0.0-0.7) 06/16/17 15:30 Baso # (Auto) 0.02 K/mm3 (0.0-2.0) 06/16/17 15:30 pCO2 56 mm/Hg (35-45) H 06/16/17 16:20 pO2 89.0 mm/Hg (80-100) 06/16/17 16:20 HCO3 30.9 mmol/L (21-28) H 06/16/17 16:20 ABG pH 7.35 (7.35-7.45) 06/16/17 16:20 ABG Total CO2 32.6 mmol.L (22-28) H 06/16/17 16:20 ABG O2 Saturation 98.2 % (95-98) H 06/16/17 16:20 ABG O2 Content 14.1 ML/dl (15-23) L 06/16/17 16:20 ABG Base Excess 4.2 mmol/L (-2.0-3.0) H 06/16/17 16:20 ABG Hemoglobin 10.4 g/dL (11.7-17.4) L 06/16/17 16:20 ABG Carboxyhemoglobin 2.3 % (0.5-1.5) H 06/16/17 16:20 POC ABG HHb (Measured) 1.7 % (0-5) 06/16/17 16:20 ABG Methemoglobin 0.7 % (0.0-3.0) 06/16/17 16:20 ABG O2 Capacity 14.4 mL/dl (16-24) L 06/16/17 16:20 Hgb O2 Saturation 95.3 % (95.0-98.0) 06/16/17 16:20 FiO2 28.0 % 06/16/17 16:20 Sodium 139 mmol/L (132-148) 06/19/17 11:24 Potassium 5.4 mmol/L (3.6-5.0) H 06/19/17 11:24 Chloride 105 mmol/L (98-107) 06/19/17 11:24 Carbon Dioxide 24 mmol/L (21-33) 06/19/17 11:24 Anion Gap 15 (10-20) 06/19/17 11:24 BUN 43 mg/dL (7-21) H 06/19/17 11:24 Creatinine 1.5 mg/dl (0.7-1.2) H 06/19/17 11:24 Est GFR ( Amer) 43 06/19/17 11:24 Est GFR (Non-Af Amer) 36 06/19/17 11:24 POC Glucose (mg/dL) 276 mg/dL (65-110) H 06/19/17 11:25 Random Glucose 305 mg/dL (70-110) H* 06/19/17 11:24 Serum Osmolality 318 mosm/kg (272-300) H 06/19/17 11:00 Calcium 8.1 mg/dL (8.4-10.5) L 06/19/17 11:24 Phosphorus 5.3 mg/dL (2.5-4.5) H 06/17/17 05:30 Magnesium 2.3 mg/dL (1.7-2.2) H 06/17/17 05:30 Total Bilirubin < 0.1 mg/dL (0.2-1.3) L 06/19/17 06:00 AST 11 U/L (14-36) L 06/19/17 06:00 ALT 13 U/L (7-56) 06/19/17 06:00 Alkaline Phosphatase 85 U/L (38-126) 06/19/17 06:00 Lactate Dehydrogenase 339 U/L (333-699) 06/16/17 15:30 Total Creatine Kinase 64 U/L (35-230) 06/19/17 11:24 Troponin I < 0.01 ng/mL 06/16/17 15:30 NT-Pro-B Natriuret Pep 538 pg/mL (0-450) H 06/16/17 15:30 Total Protein 6.3 g/dL (5.8-8.3) 06/19/17 06:00 Albumin 3.7 g/dL (3.0-4.8) 06/19/17 06:00 Globulin 2.6 gm/dL 06/19/17 06:00 Albumin/Globulin Ratio 1.4 (1.1-1.8) 06/19/17 06:00 Influenza Typ A,B (EIA) Negative for flu a/b (NEGATIVE) 06/16/17 15:30 Attending/Attestation - Attestation I have personally seen and examined this patient.: Yes I have fully participated in the care of the patient.: Yes I have reviewed all pertinent clinical information, including history, physical exam and plan: Yes Notes (Text): 06/20/17 15:19 Medical record note made by the resident after discussion with my direction and input after the patient was personally seen and examined by me. I have reviewed the chart and agree that the record accurately reflects by personal performance of the history, physical exam, data review, and medical decision-making, in the course for the patient. I have also personally directed the plan of care. Patient is feeling better.She is not wheezing.She is ambulatory/She will be discharged home on tapering dose of steroid . Patient hyperkalemia was not due to steroid.Hyperkalemia was mild.Patient EKG is negative for hyperkalemic changes.Patient has been advised not to take NSAID, CKD could be contributing to hyperkalemia.Patient is feeling better, wants to be discharged home.She will follow up with her Primary care. Dietary education was given prior to discharge. Management plan was discussed in detail with patient. Education was provided.
--- NOTE | 2017-06-19 19:24 | CARD ---
APPROVED REPORT EKG Measurement Heart [id number] <Conclusion> Normal sinus rhythm Normal ECG
[2017-06-23] MEDS ORDERED: Ergocalciferol 50,000 Intl Units Cap PO SCH (10:00)
== END 2017-06-19 15:38 | disposition home or self-care (01) | DRG 541 ==
LOC: ED 14:30 → ERH 17:58 → 3RSO 19:11 → OBSVTOIN 06-17 10:30 → 3RNO 06-19 11:48
PROVIDERS: ADMIT Internal Medicine; ATTEND Internal Medicine
PROC: 3E0F7GC Introduction of Other Therapeutic Substance into Respiratory Tract, Via Natural or Artificial Opening (ICD-10-PCS; principal; 2017-06-17)
DX: J44.1 Chronic obstructive pulmonary disease with (acute) exacerbation (principal); N17.9 Acute kidney failure, unspecified; E87.5 Hyperkalemia; N18.9 Chronic kidney disease, unspecified; E11.22 Type 2 diabetes mellitus with diabetic chronic kidney disease; I12.9 Hypertensive chronic kidney disease with stage 1 through stage 4 chronic kidney disease, or unspecified chronic kidney disease; Z99.81 Dependence on supplemental oxygen; F41.9 Anxiety disorder, unspecified; D64.9 Anemia, unspecified; G89.29 Other chronic pain; F17.210 Nicotine dependence, cigarettes, uncomplicated; Z85.3 Personal history of malignant neoplasm of breast

== ENCOUNTER 2017-07-26 15:48 | Inpatient (IN) | payer MEDICAID ==
[2017-07-26 15:56] VITALS: BMI 29.3
[2017-07-26] MEDS ORDERED: Magnesium Sulfate 2 GM in Sodium Chloride 0.9% 100 ML IVPB ONE (15:56)
[2017-07-26] MEDS ORDERED: Albuterol-Ipratrop 3 mg / 0.5 (3 ml) UD IH STA ×2 (15:56→19:47)
--- NOTE | 2017-07-26 16:09 | ED PDOC ---
Arrival/HPI - General Chief Complaint: Shortness Of Breath Time Seen by Provider: 07/26/17 15:55 Historian: Patient, Family - History of Present Illness Narrative History of Present Illness (Text): 07/26/17 16:08 A 56 year old female, whose past medical history includes COPD, on 2L [place] home O2 , was brought in by EMS to the emergency department complaining of shortness of breath that developed last night, cough and wheezing. Patient's son reports patient with brown phlegm productive cough. Son reports patient had Pneumonia five months ago. 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 Denies any recent falls. Patient notes some chest discomfort but denies any other complaints at this time. PMD: Dr. Sosa 07/26/17 17:21 Symptom Onset: Sudden Symptom Course: Unchanged Activities at Onset: Rest Context: Home Past Medical History - Provider Review Nursing Documentation Reviewed: Yes - Infectious Disease Hx of Infectious Diseases: None - Tetanus Immunization Tetanus Immunization: Unknown - Cardiac Hx Hypertension: Yes - Pulmonary Hx Chronic Obstructive Pulmonary Disease (COPD): Yes - Neurological Hx Neurological Disorder: No - HEENT Hx HEENT Disorder: Yes ([place] left ear) Hx Cataracts: Yes - Renal Hx Renal Disorder: No (HYDRONEPHROSIS) Hx Kidney Stones: Yes - Endocrine/Metabolic Hx Diabetes Mellitus Type 1: Yes (insulin) - Hematological/Oncological Hx Blood Disorders: Yes Hx Cancer: Yes (breast cancer left dx 06/2015) Hx Chemotherapy: Yes Other/Comment: R chest port - Integumentary Other/Comment: multiple age spots to back, small white areas of skin to left arm , ble skin discolorations, reddened buttock and hard red areas of skin to lower r and left buttock,multiple scabs and dry discolored skin areas to both arms, poor hygeine dirty toes and elbows - Musculoskeletal/Rheumatological Hx Arthritis: Yes - Gastrointestinal Hx Gastrointestinal Disorders: Yes (esophagitis/ pelvic mass) Hx Gastroesophageal Reflux: Yes - Genitourinary/Gynecological Hx Genitourinary Disorders: Yes Hx Urinary Tract Infection: Yes - Psychiatric Hx Psychophysiologic Disorder: Yes Hx Anxiety: Yes Hx Depression: Yes Hx Substance Use: Yes - Past Surgical History Past Surgical History: Non-Contributing - Surgical History Hx Section: Yes (x2) Other/Comment: left breast bx 07/01/15, umbilical hernia repair, c section x 2 extopic , excision of abd tumor, rcw pac, umbilical hernia repair - Anesthesia Hx Anesthesia Reactions: No Hx Malignant Hyperthermia: No - Suicidal Assessment Feels Threatened In Home Enviroment: No Family/Social History - Physician Review Nursing Documentation Reviewed: Yes Family/Social History: No Known Family HX Smoking Status: Heavy Smoker > 10 Cigarettes Daily Hx Alcohol Use: Yes Hx Substance Use: Yes Hx Substance Use Treatment: No Allergies/Home Meds Allergies/Adverse Reactions: Allergies levofloxacin [From Levaquin] Allergy (Verified 07/26/17 15:58) SHORTNESS OF BREATH;PARANOID nystatin Allergy (Verified 07/26/17 15:58) SWELLING Home Medications: Home Meds Medication Instructions Recorded Confirmed Advair Hfa 115/21 1 puff INH BID 03/03/17 03/03/17 Aspirin [Ecotrin] 81 mg PO DAILY 03/03/17 06/19/17 Famotidine [Pepcid] 20 mg PO DAILY 03/03/17 03/03/17 Fenofibrate [Tricor] 48 mg PO DAILY 03/03/17 03/03/17 Nicotine 21 mg/24 hr [Nicoderm Cq] 21 mg TD DAILY 03/03/17 03/03/17 Oxycodone HCl/Acetaminophen 1 tab PO Q6 03/03/17 03/03/17 [Oxycodone-Acetaminophen 5-325] Simvastatin 10 mg PO DAILY 03/03/17 03/03/17 Review of Systems - Physician Review All systems were reviewed & negative as marked: Yes - Review of Systems Constitutional: absent: Fevers Respiratory: SOB, Cough, Wheezing Cardiovascular: Other (chest discomfort) Gastrointestinal: absent: Abdominal Pain Neurological: absent: Headache Physical Exam Vital Signs Reviewed: Yes Vital Signs Temp Pulse Resp BP Pulse Ox 07/26/17 19:52 77 12 107/71 100 07/26/17 17:59 104 H 20 152/84 H 95 07/26/17 16:16 98.3 F 110 H 24 134/69 98 07/26/17 16:00 22 Appearance: Positive for: Comfortable Pain Distress: None Mental Status: Positive for: Alert and Oriented X 3 - Systems Exam Head: Present: Atraumatic, Normocephalic Pupils: Present: PERRL Extroacular Muscles: Present: EOMI Conjunctiva: Present: Normal Mouth: Present: Moist Mucous Membranes Neck: Present: Normal Range of Motion Respiratory/Chest: Present: Wheezes, Tachypneic, Other (R mediport (active breast cancer)) Cardiovascular: Present: Normal S1, S2, Tachycardic. No: Murmurs Abdomen: No: Tenderness, Distention, Peritoneal Signs Back: Present: Normal Inspection Upper Extremity: Present: Normal Inspection. No: Cyanosis, Edema Lower Extremity: Present: Normal Inspection, Other (venous stasis changes b/l LE ). No: Edema Neurological: Present: GCS=15, CN II-XII Intact, Speech Normal Skin: Present: Warm, Dry, Normal Color. No: Rashes Psychiatric: Present: Alert, Oriented x 3, Normal Insight, Normal Concentration Medical Decision Making ED Course and Treatment: 07/26/17 16:06 Impression: A 56 year old female with productive cough, shortness of breath and wheezing. Plan: -- EKG -- chest xray -- labs -- Urinalysis -- Duoneb, IV fluids, Solumedrol -- Reassess and disposition Prior Visits: Notes and results from previous visits were reviewed. Patient was last seen in the emergency department on 06/16/17 for evaluation of shortness of breath and dry cough. Progress Notes: 07/26/17 16:32 EKG shows sinus tachycardia at 103bpm with non-specific ST changes. Cxray negative. Given azithromycin for COPD. Pc02 improving after bipap. Dr. Sosa admits patient to his service. - Lab Interpretations Lab Results: 07/26/17 17:00 07/26/17 17:00 Lab Results 07/26/17 19:45: pCO2 53 H, pO2 59.0 L, HCO3 28.6 H, ABG pH 7.34 L, ABG Total CO2 30.2 H, ABG O2 Saturation 95.5, ABG O2 Content 13.0 L, ABG Base Excess 2.1, ABG Hemoglobin 10.0 L, ABG Carboxyhemoglobin 2.2 H, POC ABG HHb (Measured) 4.3, ABG Methemoglobin 1.2, ABG O2 Capacity 13.6 L, Hgb O2 Saturation 92.3 L, FiO2 28.0 07/26/17 17:39: pCO2 72 H*, pO2 70.0 L, HCO3 38.8 H, ABG pH 7.34 L, ABG Total CO2 41.0 H, ABG O2 Saturation 97.4, ABG O2 Content 13.2 L, ABG Base Excess 10.9 H, ABG Hemoglobin 10.0 L, ABG Carboxyhemoglobin 2.7 H, POC ABG HHb (Measured) 2.5, ABG Methemoglobin 1.5, ABG O2 Capacity 13.6 L, Hgb O2 Saturation 93.3 L, FiO2 28.0 07/26/17 17:00: Sodium 148, Chloride 104, Potassium 4.5, Carbon Dioxide 33, Anion Gap 15, BUN 29 H, Creatinine 1.5 H, Est GFR ( Amer) 43, Est GFR ( Non-Af Amer) 36, Random Glucose 195 H, Calcium 8.8, Magnesium 1.5 L, Total Bilirubin 0.2, AST 14 D, ALT 21, Alkaline Phosphatase 79, Lactate Dehydrogenase 309 L, Total Creatine Kinase 28 L, Troponin I < 0.01, NT-Pro-B Natriuret Pep 757 H, Total Protein 6.6, Albumin 3.8, Globulin 2.8, Albumin/ Globulin Ratio 1.4 07/26/17 17:00: pO2 73 H, VBG pH 7.26 L, VBG pCO2 81.0 H*, VBG HCO3 36.3 H, VBG Total CO2 38.8 H, VBG O2 Sat (Calc) 97.6 H, VBG Base Excess 6.2 H, VBG Potassium 4.4, Sodium 143.0, Chloride 107.0, Glucose 205 H, Lactate 1.0, FiO2 21.0, Venous Blood Potassium 4.4 07/26/17 17:00: PT 12.2, INR 1.07, APTT 35.6 07/26/17 17:00: WBC 7.7, RBC 3.59, Hgb 9.8 L, Hct 33.2 L, MCV 92.5, MCH 27.3, MCHC 29.5 L, RDW 14.8 H, Plt Count 247, MPV 10.1, Gran % 72.6 H, Lymph % (Auto) 20.4 L, [place] % (Auto) 4.9, Eos % (Auto) 1.7, Baso % (Auto) 0.4, Gran # 5.57, Lymph # (Auto) 1.6, [place] # (Auto) 0.4, Eos # (Auto) 0.1, Baso # (Auto) 0.03 I have reviewed the lab results: Yes - RAD Interpretation Radiology Orders: 07/26/17 15:56 CHEST PORTABLE [RAD] Stat - EKG Interpretation Interpreted by ED Physician: Yes Type: 12 lead EKG - Medication Orders Current Medication Orders: Discontinued Medications Albuterol/Ipratropium (Duoneb 3 Mg/0.5 Mg (3 Ml) Ud) 3 ml IH STAT STA Stop: 07/26/17 15:57 Last Admin: 07/26/17 16:10 Dose: 3 ml Albuterol/Ipratropium (Duoneb 3 Mg/0.5 Mg (3 Ml) Ud) 3 ml IH Q15M LUCIANO Stop: 07/26/17 16:31 Last Admin: 07/26/17 17:06 Dose: 3 ml Albuterol/Ipratropium (Duoneb 3 Mg/0.5 Mg (3 Ml) Ud) 3 ml IH STAT STA Stop: 07/26/17 19:48 Magnesium Sulfate 2 gm/ Sodium (Chloride) 104 mls @ 102 mls/hr IVPB ONCE ONE Stop: 07/26/17 16:57 Last Admin: 07/26/17 17:03 Dose: 102 mls/hr eMAR Start Stop Document 07/26/17 17:03 MONTSERRAT (Rec: 07/26/17 17:04 MONTSERRAT [id number]) Intravenous Solution Start Date 07/26/17 Start Time 16:40 End Date 07/26/17 End time 17:40 Total Infusion Time 60 Azithromycin (Zithromax 500mg In Ns) 500 mg in 250 mls @ 167 mls/hr IVPB STAT STA PRN Reason: Protocol Stop: 07/26/17 19:44 Last Admin: 07/26/17 19:00 Dose: 167 mls/hr eMAR Start Stop Document 07/26/17 19:00 MON[place]ERRAT (Rec: 07/26/17 19:19 MONTSERRAT [id number]) Intravenous Solution Start Date 07/26/17 Start Time 19:18 End Date 07/26/17 End time 20:50 Total Infusion Time 92 Methylprednisolone (Solu-Medrol) 125 mg IVP STAT STA Stop: 07/26/17 15:57 Last Admin: 07/26/17 16:30 Dose: 125 mg IVP Administration Document 07/26/17 16:30 MONTSERRAT (Rec: 07/26/17 17:04 MONTSERRAT [id number]) Charges for Administration # of IVP Administrations 1 - Scribe Statement The provider has reviewed the documentation as recorded by the Scribe Pranav Murray Provider Scribe Attestation: All medical record entries made by the Scribe were at my direction and personally dictated by me. I have reviewed the chart and agree that the record accurately reflects my personal performance of the history, physical exam, medical decision making, and the department course for this patient. I have also personally directed, reviewed, and agree with the discharge instructions and disposition. Disposition/Present on Arrival - Present on Arrival Any Indicators Present on Arrival: No History of DVT/PE: No History of Uncontrolled Diabetes: Yes Urinary Catheter: No History of Decub. Ulcer: No History Surgical Site Infection Following: None - Disposition Have Diagnosis and Disposition been Completed?: Yes Diagnosis: COPD (chronic obstructive pulmonary disease) Disposition: HOSPITALIZED Disposition Time: 17:53 Patient Plan: Admission Patient Problems: Current Active Problems Problem Status Onset COPD (chronic obstructive pulmonary disease) Acute Condition: FAIR
[2017-07-26] MEDS: Albuterol-Ipratrop 3 mg / 0.5 (3 ml) UD IH SCH ×3 (16:15→17:06)
[2017-07-26 17:16] LABS: VENOUS BLOOD GAS BASE EXCESS 6.2 mmol/L (0.0-2.0); VENOUS BLOOD GAS PO2 73 mm/Hg (30-55); VENOUS BLOOD PH 7.26 (7.32-7.43)
[2017-07-26 17:20] LABS: BASO # 0.03 K/mm3 (0.0-2.0); BASO % 0.4 % (0.0-3.0); EOS # 0.1 (0.0-0.7); EOS % 1.7 % (1.5-5.0); GRAN # 5.57 (1.4-6.5); GRAN % 72.6 % (50.0-68.0); HEMOGLOBIN 9.8 g/dL (12.0-16.0); LYMPH # 1.6 (1.2-3.4); LYMPH % 20.4 % (22.0-35.0); MEAN CELL VOLUME 92.5 fl (80.0-105.0); MEAN CORPUSCULAR HEMOGLOBIN 27.3 pg (25.0-35.0); MEAN CORPUSCULAR HGB CONC 29.5 g/dl (31.0-37.0); MEAN PLATELET VOLUME 10.1 fl (7.0-11.0); MONO # 0.4 (0.1-0.6); MONO % 4.9 % (1.0-6.0); RBC 3.59 10^6/uL (3.5-6.1); RED CELL DISTRIBUTION WIDTH 14.8 % (11.5-14.5); WHITE BLOOD COUNT 7.7 10^3/ul (4.5-11.0)
[2017-07-26 17:29] LABS: INR 1.07 (0.93-1.08); PARTIAL THROMBOPLASTIN TIME 35.6 Seconds (25.1-36.5); PROTHROMBIN TIME 12.2 SECONDS (9.4-12.5)
[2017-07-26 17:31] LABS: ALB/GLOB RATIO 1.4 (1.1-1.8); ALBUMIN 3.8 g/dL (3.0-4.8); ALT/SGPT 21 U/L (7-56); AST/SGOT 14 U/L (14-36); BLOOD UREA NITROGEN 29 mg/dL (7-21); CALCIUM 8.8 mg/dL (8.4-10.5); GFR AFRICAN-AMERICAN 43; GFR NON-AFRICAN AMERICAN 36
[2017-07-26 17:43] LABS: ARTERIAL BLOOD GAS HCO3 38.8 mmol/L (21-28); ARTERIAL BLOOD GAS O2 CAPACITY 13.6 mL/dl (16-24); ARTERIAL BLOOD GAS O2 CONTENT 13.2 ML/dl (15-23); ARTERIAL BLOOD GAS O2 SAT 97.4 % (95-98); ARTERIAL BLOOD GAS PH 7.34 (7.35-7.45)
[2017-07-26 17:48] LABS: B-TYPE NATRIURETIC PEPTIDE 757 pg/mL (0-450); TROPONIN I < 0.01 ng/mL
[2017-07-26 17:48] LABS: ARTERIAL BLOOD GAS PCO2 72 mm/Hg (35-45)
[2017-07-26] MEDS ORDERED: Azithromycin 500MG/NS 250ml 500 MG/250 ML BAG IVPB STA (18:15)
[2017-07-26 19:52] LABS: ARTERIAL BLOOD GAS HCO3 28.6 mmol/L (21-28); ARTERIAL BLOOD GAS O2 CAPACITY 13.6 mL/dl (16-24); ARTERIAL BLOOD GAS O2 SAT 95.5 % (95-98); ARTERIAL BLOOD GAS PCO2 53 mm/Hg (35-45); ARTERIAL BLOOD GAS PH 7.34 (7.35-7.45); ARTERIAL BLOOD GAS TCO2 30.2 mmol.L (22-28)
[2017-07-26] MEDS: MethylPREDNISolone 40 mg Vial IV SCH (23:25)
[2017-07-26] MEDS: Insulin Detemir 100 units/ml Vial (Levemir) SC SCH (23:27)
[2017-07-27] MEDS: MethylPREDNISolone 40 mg Vial IV SCH ×4 (05:27→23:24)
[2017-07-27 06:44] LABS: URINE BILIRUBIN NEGATIVE (NEGATIVE); URINE BLOOD MODERATE (NEGATIVE); URINE GLUCOSE (UA) 500 mg/dL (NEGATIVE); URINE LEUKOCYTE ESTERASE MODERATE Leu/uL (NEGATIVE); URINE PROTEIN 100 mg/dL (<30 mg/dL); URINE UROBILINOGEN 0.2 E.U./dL (<1 E.U./dL)
[2017-07-27 06:51] LABS: URINE APPEARANCE SL CLOUDY (CLEAR); URINE COLOR YELLOW (YELLOW)
[2017-07-27 06:55] LABS: URINE BACTERIA OCC (NEG); URINE WBC 20 - 25 /hpf (0-6)
--- NOTE | 2017-07-27 08:37 | RAD ---
HISTORY: cough COMPARISON: Portable chest 06/16/2017. FINDINGS: LUNGS: Right-sided MediPort unchanged in position. Patient rotated toward the right limiting evaluation somewhat. Borderline right middle lobe patchy airspace disease with left lung clear. No pleural effusion bilaterally. No pulmonary vascular congestion or pneumothorax. PLEURA: As above. CARDIOVASCULAR: As above. OSSEOUS STRUCTURES: No significant abnormalities. VISUALIZED UPPER ABDOMEN: Normal. OTHER FINDINGS: None. IMPRESSION: Rotation toward right limits evaluation. Borderline right middle lobe atelectasis or infiltrate. Exam otherwise stable appearing. No acute pleural effusion or pneumothorax bilaterally.
[2017-07-27] MEDS: Acetylcysteine 20% Inhal Soln (4ml) IH SCH ×3 (08:42→19:40)
[2017-07-27] MEDS: Albuterol-Ipratrop 3 mg / 0.5 (3 ml) UD IH SCH ×4 (08:42→19:39)
[2017-07-27] MEDS: oxyCODONE 5 mg Immediate Release Tab PO PRN ×2 (09:51→16:39)
[2017-07-27] MEDS: cefTRIAXone 1 gm 1 GM/100 ML BAG IVPB SCH (09:52)
[2017-07-27] MEDS: Insulin Lispro 1 UNITS/0.01 ML SC SCH ×3 (09:52→17:19)
[2017-07-27] MEDS: Insulin Detemir 100 units/ml Vial (Levemir) SC SCH ×2 (09:53→17:20)
[2017-07-27] MEDS ORDERED: Ergocalciferol 50,000 Intl Units Cap PO SCH (10:00)
--- NOTE | 2017-07-27 10:16 | CARD ---
APPROVED REPORT EKG Measurement Heart [id number] <Conclusion> Sinus tachycardia Nonspecific ST abnormality Artifact present Probably no change
[2017-07-27] MEDS ORDERED: Insulin Lispro 1 UNITS/0.01 ML SC ONE (12:44)
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
--- NOTE | 2017-07-28 01:30 | CON ---
DATE: 07/27/2017 LOCATION: The patient is in room 274, bed 1. REASON FOR CONSULTATION: Shortness of breath, hypertension, diabetes, COPD. HISTORY OF PRESENT ILLNESS: Patient is a 56-year-old female, known case of severe chronic obstructive pulmonary disease, who continue to smoker, diabetes mellitus, hypertension, admitted with 3-day history of cough, shortness of breath. Denied any chest pain. Denied any palpitation. Heart rate on monitor has been between 94 to 100 per minute. The patient is sitting on bedside right now. Denies any palpitation or chest pain. She says she is getting episodes of shortness of breath. PAST MEDICAL HISTORY: Positive for COPD, diabetes mellitus, hyperlipidemia, hypertension, the patient had left breast biopsy in 06/2015, umbilical hernia repair, hydronephrosis, bladder tumor, multiple biopsies of the bladder tumor, chronic anxiety, chronic pain syndrome, arthritis. 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 PERSONAL HISTORY: The patient still smokes one to two packs a day. Denies drinking. ALLERGIES: REVIEW OF OLD CHART SHOW THE PATIENT HAS ALLERGIES TO STATIN AND LEVAQUIN. MEDICATIONS: The patient's list of home medications: Insulin lispro, Humalog 10 units subcu before meals.; insulin Levemir 10 units subcu b.i.d.; aspirin 81 daily; simvastatin 10 daily; also takes oxycodone for pain; Medrol Dosepak, was on 4 mg daily; TriCor 48 p.o. daily; Pepcid 20 daily; 200 mg every 12 hours; Xanax 0.5 mg four times a day; DuoNeb and nebulizer therapy; Advair Diskus. REVIEW OF SYSTEMS: All the systems reviewed, positive mentioned in the history; others were negative. PHYSICAL EXAMINATION: VITAL SIGNS: Blood pressure 126/67, respirations 18, pulse 96, temperature 98.1. HEENT: Head is normocephalic. Eyes, pupils normal. Conjunctivae slightly pale. NECK: JVP low. Carotids equal. THORAX: AP diameter normal. LUNGS: A few expiratory wheezing. CARDIOVASCULAR: S1 and S2. ABDOMEN: Soft. No tenderness. No organomegaly. EXTREMITIES: No clubbing. No cyanosis. No edema. LABORATORY DATA: WBC 7.7, hemoglobin 9.8, hematocrit 33.2, platelets 247. Chest x-ray of the patient towards right limits the evaluation, borderline right middle lobe atelectasis or infiltrate. EKG showed sinus tachycardia 103 per minute, nonspecific ST-T changes. DIAGNOSES: Exacerbation of chronic obstructive pulmonary disease; tobacco abuse, still smokes; respiratory tract infection; diabetes mellitus; hypertension; anemia; hyperlipidemia. PLAN: The patient is on doxycycline 100 mg every 12 hours, DuoNeb and nebulizer therapy, aspirin 81 mg daily, insulin as ordered, Protonix 40 daily, ceftriaxone 1 g IV daily, methylprednisolone 40 mg IV every 6 hours, Xanax 0.5 four times a day. We will continue present therapy and monitor the heart rate and we will follow with you. Lisa Jones MD
--- NOTE | 2017-07-28 04:36 | CP.PCM.PN ---
Subjective - Date & Time of Evaluation Date of Evaluation: 07/28/17 Time of Evaluation: 04:27 - Subjective Subjective: Patient was seen because she complained of nausea and vomiting. I had ordered Zofran 4 mg IV before I went to see her. She had refused to have Zofran.States that she had chest pain earlier. Has no complaints now and does not want to take any medications. She is little angry and does not want to answer my questions. Medical record was reviewed. This 56 year old white woman was admitted 3 days history of cough, sob , exacerbation of COPD. Has PMH of COPD, DM, HLD, HTN, anemia, arthrtitis, on home oxyter, Ubilical herniorrhaphy, bladder tumor, breast cancer, breast biopsy, diverticulitis, ovarian tumor ,chronic pain syndrome, anxiety, smoker. Objective - Vital Signs/Intake and Output Vital Signs (last 24 hours): Temp Pulse Resp BP Pulse Ox 98.4 F 101 H 19 157/66 H 96 07/28/17 00:01 07/28/17 02:00 07/28/17 00:01 07/28/17 00:01 07/28/17 00:01 - Medications Medications: Current Medications Acetylcysteine (Acetylcysteine 20%) 3 ml IH BIDRESP [facility] Last Admin: 07/27/17 19:40 Dose: 3 ml Albuterol/Ipratropium (Duoneb 3 Mg/0.5 Mg (3 Ml) Ud) 3 ml IH QIDRESP [facility] Last Admin: 07/27/17 19:39 Dose: 3 ml Alprazolam (Xanax) 0.5 mg PO QID [facility] PRN Reason: Protocol Last Admin: 07/27/17 22:19 Dose: 0.5 mg Aspirin (Ecotrin) 81 mg PO DAILY [facility] Last Admin: 07/27/17 09:51 Dose: 81 mg Enoxaparin Sodium (Lovenox) 30 mg SC DAILY [facility] PRN Reason: Protocol Ergocalciferol (Drisdol 50,000 Intl Units Cap) 1 cap PO Q7D [facility] Last Admin: 07/27/17 09:51 Dose: 1 cap Ceftriaxone Sodium (Rocephin 1 Gram Ivpb) 1 gm in 100 mls @ 100 mls/hr IVPB DAILY [facility] PRN Reason: Protocol Last Admin: 05/10/18 09:52 Dose: 100 mls/hr Doxycycline Hyclate 100 mg/ (Sodium Chloride) 100 mls @ 100 mls/hr IVPB Q12 [facility] PRN Reason: Protocol Last Admin: 07/27/17 22:16 Dose: 100 mls/hr Insulin Detemir (Levemir) 10 unit SC BID [facility] Last Admin: 07/27/17 17:20 Dose: 10 unit Insulin Human Lispro (Humalog) 10 units SC AC [facility] Last Admin: 07/27/17 17:19 Dose: 10 units Methylprednisolone (Solu-Medrol) 40 mg IV Q6 [facility] Last Admin: 07/27/17 23:24 Dose: 40 mg Oxycodone HCl (Oxycodone Immediate Release Tab) 5 mg PO Q6H PRN PRN Reason: Pain, moderate (4-7) Last Admin: 07/27/17 16:39 Dose: 5 mg Pantoprazole Sodium (Protonix Ec Tab) 40 mg PO 0600 [facility] Tolterodine Tartrate (Detrol) 2 mg PO BID [facility] Last Admin: 07/27/17 18:19 Dose: 2 mg - Labs Labs: PT 12.2 SECONDS (9.4-12.5) 07/26/17 17:00 INR 1.07 (0.93-1.08) 07/26/17 17:00 APTT 35.6 Seconds (25.1-36.5) 07/26/17 17:00 Micro Results 07/26/17 17:00 Blood-Venous Blood Culture - Preliminary NO GROWTH AFTER 24 HOURS 07/26/17 16:30 Blood-Venous Blood Culture - Preliminary NO GROWTH AFTER 24 HOURS Most Recent Lab Values WBC 7.7 10^3/ul (4.5-11.0) 07/26/17 17:00 RBC 3.59 10^6/uL (3.5-6.1) 07/26/17 17:00 Hgb 9.8 g/dL (12.0-16.0) L 07/26/17 17:00 Hct 33.2 % (36.0-48.0) L 07/26/17 17:00 MCV 92.5 fl (80.0-105.0) 07/26/17 17:00 MCH 27.3 pg (25.0-35.0) 07/26/17 17:00 MCHC 29.5 g/dl (31.0-37.0) L 07/26/17 17:00 RDW 14.8 % (11.5-14.5) H 07/26/17 17:00 Plt Count 247 10^3/uL (120.0-450.0) 07/26/17 17:00 MPV 10.1 fl (7.0-11.0) 07/26/17 17:00 Gran % 72.6 % (50.0-68.0) H 07/26/17 17:00 Lymph % (Auto) 20.4 % (22.0-35.0) L 07/26/17 17:00 [place] % (Auto) 4.9 % (1.0-6.0) 07/26/17 17:00 Eos % (Auto) 1.7 % (1.5-5.0) 07/26/17 17:00 Baso % (Auto) 0.4 % (0.0-3.0) 07/26/17 17:00 Gran # 5.57 (1.4-6.5) 07/26/17 17:00 Lymph # (Auto) 1.6 (1.2-3.4) 07/26/17 17:00 [place] # (Auto) 0.4 (0.1-0.6) 07/26/17 17:00 Eos # (Auto) 0.1 (0.0-0.7) 07/26/17 17:00 Baso # (Auto) 0.03 K/mm3 (0.0-2.0) 07/26/17 17:00 PT 12.2 SECONDS (9.4-12.5) 07/26/17 17:00 INR 1.07 (0.93-1.08) 07/26/17 17:00 APTT 35.6 Seconds (25.1-36.5) 07/26/17 17:00 pCO2 53 mm/Hg (35-45) H 07/26/17 19:45 pO2 59.0 mm/Hg (80-100) L 07/26/17 19:45 HCO3 28.6 mmol/L (21-28) H 07/26/17 19:45 ABG pH 7.34 (7.35-7.45) L 07/26/17 19:45 ABG Total CO2 30.2 mmol.L (22-28) H 07/26/17 19:45 ABG O2 Saturation 95.5 % (95-98) 07/26/17 19:45 ABG O2 Content 13.0 ML/dl (15-23) L 07/26/17 19:45 ABG Base Excess 2.1 mmol/L (-2.0-3.0) 07/26/17 19:45 ABG Hemoglobin 10.0 g/dL (11.7-17.4) L 07/26/17 19:45 ABG Carboxyhemoglobin 2.2 % (0.5-1.5) H 07/26/17 19:45 POC ABG HHb (Measured) 4.3 % (0-5) 07/26/17 19:45 ABG Methemoglobin 1.2 % (0.0-3.0) 07/26/17 19:45 ABG O2 Capacity 13.6 mL/dl (16-24) L 07/26/17 19:45 VBG pH 7.26 (7.32-7.43) L 07/26/17 17:00 VBG pCO2 81.0 (40-60) H* 07/26/17 17:00 VBG HCO3 36.3 mmol/l (21-28) H 07/26/17 17:00 VBG Total CO2 38.8 mmol.L (22-28) H 07/26/17 17:00 VBG O2 Sat (Calc) 97.6 % (40-65) H 07/26/17 17:00 VBG Base Excess 6.2 mmol/L (0.0-2.0) H 07/26/17 17:00 VBG Potassium 4.4 mmol/L (3.6-5.2) 07/26/17 17:00 Hgb O2 Saturation 92.3 % (95.0-98.0) L 07/26/17 19:45 Sodium 143.0 mmol/L (132-148) 07/26/17 17:00 Chloride 107.0 mmol/L (98-107) 07/26/17 17:00 Glucose 205 mg/dl (65-105) H 07/26/17 17:00 Lactate 1.0 mmol/L (0.7-2.1) 07/26/17 17:00 FiO2 28.0 % 07/26/17 19:45 Sodium 148 mmol/L (132-148) 07/26/17 17:00 Potassium 4.5 mmol/L (3.6-5.0) 07/26/17 17:00 Chloride 104 mmol/L (98-107) 07/26/17 17:00 Carbon Dioxide 33 mmol/L (21-33) 07/26/17 17:00 Anion Gap 15 (10-20) 07/26/17 17:00 BUN 29 mg/dL (7-21) H 07/26/17 17:00 Creatinine 1.5 mg/dl (0.7-1.2) H 07/26/17 17:00 Est GFR ( Amer) 43 07/26/17 17:00 Est GFR (Non-Af Amer) 36 07/26/17 17:00 POC Glucose (mg/dL) 242 mg/dL (65-110) H 07/27/17 16:16 Random Glucose 195 mg/dL (70-110) H 07/26/17 17:00 Calcium 8.8 mg/dL (8.4-10.5) 07/26/17 17:00 Magnesium 1.5 mg/dL (1.7-2.2) L 07/26/17 17:00 Total Bilirubin 0.2 mg/dL (0.2-1.3) 07/26/17 17:00 AST 14 U/L (14-36) D 07/26/17 17:00 ALT 21 U/L (7-56) 07/26/17 17:00 Alkaline Phosphatase 79 U/L (38-126) 07/26/17 17:00 Lactate Dehydrogenase 309 U/L (333-699) L 07/26/17 17:00 Total Creatine Kinase 28 U/L (35-230) L 07/26/17 17:00 Troponin I < 0.01 ng/mL 07/26/17 17:00 NT-Pro-B Natriuret Pep 757 pg/mL (0-450) H 07/26/17 17:00 Total Protein 6.6 g/dL (5.8-8.3) 07/26/17 17:00 Albumin 3.8 g/dL (3.0-4.8) 07/26/17 17:00 Globulin 2.8 gm/dL 07/26/17 17:00 Albumin/Globulin Ratio 1.4 (1.1-1.8) 07/26/17 17:00 Venous Blood Potassium 4.4 mmol/L (3.6-5.2) 07/26/17 17:00 Urine Color Yellow (YELLOW) 07/27/17 06:33 Urine Appearance Sl cloudy (CLEAR) 07/27/17 06:33 Urine pH 6.0 (4.7-8.0) 07/27/17 06:33 Ur Specific [place] 1.020 (1.005-1.035) 07/27/17 06:33 Urine Protein 100 mg/dL (<30 mg/dL) H 07/27/17 06:33 Urine Glucose (UA) 500 mg/dL (NEGATIVE) H 07/27/17 06:33 Urine Ketones Negative mg/dL (NEGATIVE) 07/27/17 06:33 Urine Blood Moderate (NEGATIVE) H 07/27/17 06:33 Urine Nitrate Negative (NEGATIVE) 07/27/17 06:33 Urine Bilirubin Negative (NEGATIVE) 07/27/17 06:33 Urine Urobilinogen 0.2 E.U./dL (<1 E.U./dL) 07/27/17 06:33 Ur Leukocyte Esterase Moderate [place]/uL (NEGATIVE) H 07/27/17 06:33 Urine RBC 2 - 5 /hpf (0-2) 07/27/17 06:33 Urine WBC 20 - 25 /hpf (0-6) 07/27/17 06:33 Ur Epithelial Cells 1 - 3 /hpf (0-5) 07/27/17 06:33 Urine Bacteria Occ (NEG) 07/27/17 06:33 Urine Other Uyeast 07/27/17 06:33 - Constitutional Appears: Well, No Acute Distress - Head Exam Head Exam: ATRAUMATIC, NORMAL INSPECTION, NORMOCEPHALIC - Eye Exam Eye Exam: Normal appearance - ENT Exam ENT Exam: Normal External Ear Exam - Neck Exam Neck Exam: Normal Inspection - Respiratory Exam Respiratory Exam: NORMAL BREATHING PATTERN - Cardiovascular Exam Cardiovascular Exam: absent: JVD - GI/Abdominal Exam GI & Abdominal Exam: absent: Distended - Rectal Exam Rectal Exam: Deferred - Exam Additional comments: Deferred. - Extremities Exam Extremities Exam: Normal Inspection - Back Exam Back Exam: NORMAL INSPECTION - Neurological Exam Neurological Exam: Alert, Awake - Psychiatric Exam Psychiatric exam: Normal Affect, Normal Mood - Skin Skin Exam: Normal Color Assessment and Plan - Assessment and Plan (Free Text) Assessment: Nausea/Vomiting.-Received percocet yesterday, on steroids. HTN. COPD. HLD. Anemia. Plan: Zofran 4 mg IV ordered. May have protonix now instead of at 6 AM . Continue present management.
[2017-07-28] MEDS: MethylPREDNISolone 40 mg Vial IV SCH (05:52)
[2017-07-28] MEDS: Pantoprazole 40 mg EC Tab PO SCH ×2 (05:52→08:32)
[2017-07-28] MEDS: Albuterol-Ipratrop 3 mg / 0.5 (3 ml) UD IH SCH ×4 (08:03→19:53)
[2017-07-28] MEDS: Acetylcysteine 20% Inhal Soln (4ml) IH SCH ×2 (08:03→19:53)
[2017-07-28] MEDS: Insulin Lispro 1 UNITS/0.01 ML SC SCH (08:27)
[2017-07-28] MEDS: Insulin Detemir 100 units/ml Vial (Levemir) SC SCH (09:20)
[2017-07-28] MEDS: cefTRIAXone 1 gm 1 GM/100 ML BAG IVPB SCH (09:21)
[2017-07-28] MEDS: oxyCODONE 5 mg Immediate Release Tab PO PRN ×2 (09:40→22:22)
[2017-07-28] MEDS ORDERED: Enoxaparin 30 mg Syringe SC SCH ×2 (10:00)
[2017-07-28] MEDS ORDERED: MethylPREDNISolone 40 mg Vial IV SCH (12:00)
[2017-07-28] MEDS: Insulin Reg-LOW-Coverage SC SCH ×3 (12:22→22:21)
--- NOTE | 2017-07-28 12:26 | CT ---
PROCEDURE: CT Chest, Abdomen and Pelvis without intravenous contrast HISTORY: hematemesis h/o breast CA COMPARISON: 09/23/2016 CT TECHNIQUE: Radiation dose: Total exam DLP = 960 mGy-cm. This CT exam was performed using one or more of the following dose reduction techniques: Automated exposure control, adjustment of the mA and/or kV according to patient size, and/or use of iterative reconstruction technique. FINDINGS: CT CHEST WITHOUT CONTRAST: LUNGS: There is an area of dense consolidation in the posterior right upper lobe that is unchanged and most likely represents chronic fibrosis. There is some volume loss in the right lung. There is also some fibrosis in the right middle lobe. MEDIASTINUM: Unremarkable. Normal caliber aorta and pulmonary arterial trunk. Normal size heart. LYMPH NODES: Unremarkable. PLEURA: Unremarkable. No pneumothorax. No pleural fluid. BONES: Unremarkable. OTHER FINDINGS: There is a hiatal hernia with distention of the esophagus. An air-fluid level is seen CT ABDOMEN AND PELVIS: LIVER: Unremarkable. No gross lesion or ductal dilatation. GALLBLADDER AND BILE DUCTS: Small stones are layered in the gallbladder PANCREAS: Unremarkable. No gross lesion or ductal dilatation. SPLEEN: Unremarkable. ADRENALS: Unremarkable. No mass. KIDNEYS AND URETERS: Mild hydronephrosis and hydroureter. There are no stones visualized. VASCULATURE: Unremarkable. No aortic aneurysm. BOWEL: Unremarkable. No obstruction. No gross mural thickening. APPENDIX: Normal appendix. PERITONEUM: Unremarkable. No free fluid. No free air. LYMPH NODES: Unremarkable. No enlarged lymph nodes. BLADDER: Unremarkable. REPRODUCTIVE: Unremarkable. BONES: No acute fracture. OTHER FINDINGS: None. IMPRESSION: Hiatal hernia with dilated esophagus. 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 Gallstones Mild hydronephrosis
--- NOTE | 2017-07-28 13:00 | HP ---
DATE OF EXAM: 07/27/2017 The patient came in because of short of breath. HISTORY OF PRESENT ILLNESS: A 56-year-old female well known to us, has history of COPD, on oxygen 2 L nasal canula at home, multiple admissions with breathing problem including COPD exacerbation pneumonia. The patient is still smoking, noncompliant, brought in as the visiting nurse called and mentioned the patient has wheezing and respiratory distress. The patient was directed to the hospital through the emergency room for evaluation, where she found to be short of breath, tachypneic, and in respiratory distress. She has no fever. There is cough. There is mild phlegm. No chest pain. No nausea or vomiting at that time, but she feel tired. PAST MEDICAL HISTORY: As above. The patient has history of chronic obstructive pulmonary disease, history of admission with respiratory failure and intubation 2 times or more, history of active smoking in spite of her underlying COPD and being on oxygen, history of breast CA, and in compliance with the chemo, history of chronic anxiety, chronic back pain, osteoarthritis, and insulin-dependant diabetes. She did have history of recurrent urinary tract infection, bladder wall thickness, biopsies was negative in the past seen by Urologist. ALLERGIES: SHE IS ALLERGIC TO LEVOFLOXACIN AND NYSTATIN. HOME MEDICATIONS: She take Detrol 2 mg b.i.d., insulin 10 units before each meal and Levemir 10 units b.i.d., vitamin D once a week, aspirin 81 mg once a day, simvastatin 10 nightly, oxycodone 5/325 every 6 hours. The patient also takes Tricor 48 mg once a day, Pepcid 20 p.o. b.i.d. The patient also takes Xanax 0.5 mg four times a day and nebulizers treatment via nebulizer machines, Advair. REVIEW OF SYSTEMS: As in the present illness, short of breath, wheezing, cough, back pain, anxiety, distress and dysuria. Please be advised that history and physical I am dictating again is for 07/27/2017. PHYSICAL EXAMINATION VITAL SIGNS: As follows, temperature 97, heart rate 100, blood pressure 135/81, respirations 18 that is after being nebulizers treatment. HEAD AND NECK: Normal. No JVD. No thyromegaly. CHEST: Bilateral wheeze expiratory. CARDIAC: First sound and second sound normal, tachycardia. ABDOMEN: Soft, nontender, obese. EXTREMITIES: Minimal edema. NEUROLOGIC: Normal. LABORATORY DATA: White count 7.7, hemoglobin 9.8, hematocrit 33.2, platelets 247. Chemistry, sodium 148, potassium 4.5, chloride 104, bicarb 33, BUN 29, creatinine 1.5. Blood sugar 195, calcium 8.8, magnesium 1.5. Her liver function test is normal. Her CK 28. Troponin is less than 0.01. ProBNP 757. Albumin-globulin is normal. The patient also had a blood gas, which shows pH of 7.26, PCO2 of 81, bicarb 36. Laboratory study, she had chest x-ray, which shows atelectasis versus infiltrates in the right middle lobe and EKG, which showed sinus tachycardia, no acute ST-T changes. There is nonspecific ST-T changes, artifact present. No change from previous one, QTc is 442, which was in normal range. IMPRESSION AND PLAN: 1. This is a 56-year-old female with history of recurrent chronic obstructive pulmonary exacerbation, active smoking, came in with acute chronic obstructive pulmonary exacerbations, right middle lobe pneumonia. We will admit the patient for IV antibiotics, doxycycline, Rocephin plus Pulmonary consult. Dr. Rucker start the patient on IV steroids. Continue inhaled bronchodilators. 2. Chronic back pain, chronic anxiety. Continue Percocet and Xanax. 3. Insulin-dependent diabetes. Continue her insulin regimen. We will monitor her sugars. 4. Tachycardia, probably underlying the medical illness; however, we will get a Cardiology evaluation to monitor her heart rate and check if any beta-brendon could be helpful without making her chronic obstructive pulmonary exacerbation worse. Continue current management. Follow up clinically. Sloan Sosa MD
[2017-07-28 13:01] LABS: BASO # 0.01 K/mm3 (0.0-2.0); GRAN # 18.35 (1.4-6.5); GRAN % 85.8 % (50.0-68.0); HEMOGLOBIN 11.1 g/dL (12.0-16.0); LYMPH # 1.3 (1.2-3.4); MEAN CORPUSCULAR HEMOGLOBIN 27.8 pg (25.0-35.0); MEAN CORPUSCULAR HGB CONC 31.9 g/dl (31.0-37.0); MEAN PLATELET VOLUME 10.2 fl (7.0-11.0); MONO # 1.8 (0.1-0.6); MONO % 8.2 % (1.0-6.0); RED CELL DISTRIBUTION WIDTH 15.4 % (11.5-14.5); WHITE BLOOD COUNT 21.4 10^3/ul (4.5-11.0)
--- NOTE | 2017-07-28 13:04 | PN ---
DATE: 07/28/2017 LOCATION: The patient is in room 274, bed 1. REASON FOR CONSULTATION: Shortness of breath, hypertension, diabetes mellitus, COPD, respiratory tract infection. SUBJECTIVE: The patient still having cough and shortness of breath, but she also started vomiting during the night. Denies abdominal pain. Denies any diarrhea. Denies any bright red blood. PHYSICAL EXAMINATION: VITAL SIGNS: Blood pressure 157/66. Yesterday, blood pressure was 126/67 and under reading yesterday 135/81. Respirations 19, pulse is 100, temperature 98.4. HEENT: Head is normocephalic. Eyes: Pupils normal. Conjunctivae slightly pale. NECK: JVP low. Carotids equal. THORAX: AP diameter normal. LUNGS: Few wheezing sounds. CARDIOVASCULAR: S1 and S2. ABDOMEN: Soft. Bowel sound normal. EXTREMITIES: No clubbing. No cyanosis. LABORATORY DATA: WBC 7.7, hemoglobin 9.8, hematocrit 33.2, platelet 247. Sugar random 249. Sodium 148, potassium 4.5, BUN 29, creatinine 1.5. AST, ALT normal. NT-pro-B natriuretic peptide 757, which is not significant. Total protein and albumin normal. Chest x-ray: Borderline right middle lobe atelectasis and infiltrate. Rotation towards the right limits the evaluation. DIAGNOSES: Exacerbation of chronic obstructive pulmonary disease, tobacco abuse. Still continued to smoke. Respiratory tract infection; diabetes mellitus; hypertension; anemia; hyperlipidemia; vomiting; history of cancer of the breast, got chemotherapy; chronic pain; anxiety; depression; history of renal stones with hydronephrosis in the past. PLAN: The patient is on doxycycline p.o. every 12 hours. The patient started IV fluid 50 mL an hour, aspirin 81 daily, insulin as ordered, Protonix 40 b.i.d., ceftriaxone 1 g IV daily, methylprednisolone 30 mg IV every 6 hours. GI consult with Dr. Coker already ordered for evaluation of vomiting. We will follow with you. Lisa Jones MD
[2017-07-28 13:30] LABS: CALCIUM 8.9 mg/dL (8.4-10.5)
--- NOTE | 2017-07-28 13:31 | CP.PCM.CON ---
History of Present Illness - History of Present Illness History of Present Illness: PGY-2 GI consult note 56 yo female with PMH of COPD on 3L at home, breast CA, DM, anxiety, chronic back pain, anemia and arthritis presents to [facility] due to shortness of breath and general not feeling well. GI consult was placed due to multiple episodes of coffee ground emesis. Patient states that she had episode of brown vomiting before she came to [facility]. Per nurse patient has multiple of coffee ground emesis this morning. Patient denies bright red blood while vomiting. She states that she does not know if her stool has been melanotic. She states that she previously had multiple episodes of vomiting when she was on chemotherapy a few years ago, however she denies any bleeding at that time. Patient states that she has not previously had a colonoscopy or EGD. Patient states that she takes occasional advil for her back pain a few times per week along with her percocet. Denies any other pain medication. Patient states that she quit drinking a few years ago, denies heavy drinking in the past. She states that her sob has improved. Pt denies Chest pain, abdominal pain, fever, chills, headache, dizziness, or any urinary symptoms. PMH: COPD on 3L [place] at home, breast CA, DM, anxiety, chronic back pain, arthritis , DM, anemia PSH: Right chest port All: Levaquin, nystatin Social history: 1 ppd for past 45 yrs, denies EtOH or illicit drug use Family History: father [place], daughter skin ca allergy: levofloxacin, nystatin Review of Systems - Review of Systems All systems: reviewed and no additional remarkable complaints except Past Patient History - Infectious Disease Hx of Infectious Diseases: None - Tetanus Immunizations Tetanus Immunization: Unknown - Past Medical History & Family History Past Medical History?: Yes - Past Social History Smoking Status: Unknown If Ever Smoked - CARDIAC Hx Cardiac Disorders: Yes Hx Hypercholesterolemia: Yes Hx Hypertension: Yes - PULMONARY Hx Respiratory Disorders: Yes Hx Chronic Obstructive Pulmonary Disease (COPD): Yes Hx Emphysema: Yes Hx Pneumonia: Yes - NEUROLOGICAL Hx Neurological Disorder: No - HEENT Hx HEENT Problems: No - RENAL Hx Chronic Kidney Disease: No - ENDOCRINE/METABOLIC Hx Endocrine Disorders: Yes Hx Diabetes Mellitus Type 2: Yes - HEMATOLOGICAL/ONCOLOGICAL Hx Blood Disorders: Yes Hx Cancer: Yes - INTEGUMENTARY Hx Dermatological Problems: No - MUSCULOSKELETAL/RHEUMATOLOGICAL Hx Musculoskeletal Disorders: Yes Hx Arthritis: Yes Hx Falls: No - GASTROINTESTINAL Hx Gastrointestinal Disorders: No - GENITOURINARY/GYNECOLOGICAL Hx Genitourinary Disorders: No - PSYCHIATRIC Hx Psychophysiologic Disorder: Yes Hx Anxiety: Yes Hx Depression: Yes - SURGICAL HISTORY Hx Surgeries: Yes - ANESTHESIA Hx Anesthesia Reactions: No Hx Malignant Hyperthermia: No Meds Allergies/Adverse Reactions: Allergies Allergy/AdvReac Type Severity Reaction Status Date / Time levofloxacin [From Levaquin] Allergy SHORTNESS Verified 07/26/17 15:58 OF BREATH;PARANOID nystatin Allergy SWELLING Verified 07/26/17 15:58 - Medications Medications: Current Medications Acetylcysteine (Acetylcysteine 20%) 3 ml IH BIDRESP [facility] Last Admin: 07/28/17 08:03 Dose: Not Given Albuterol/Ipratropium (Duoneb 3 Mg/0.5 Mg (3 Ml) Ud) 3 ml IH QIDRESP [facility] Last Admin: 07/28/17 11:38 Dose: Not Given Alprazolam (Xanax) 0.5 mg PO QID [facility] PRN Reason: Protocol Last Admin: 07/28/17 09:21 Dose: 0.5 mg Aspirin (Ecotrin) 81 mg PO DAILY [facility] Last Admin: 07/28/17 09:21 Dose: 81 mg Doxycycline Hyclate (Doryx) 100 mg PO Q12 [facility] Stop: 07/30/17 10:01 Enoxaparin Sodium (Lovenox) 30 mg SC DAILY [facility] PRN Reason: Protocol Last Admin: 07/28/17 09:22 Dose: Not Given Ergocalciferol (Drisdol 50,000 Intl Units Cap) 1 cap PO Q7D [facility] Last Admin: 07/27/17 09:51 Dose: 1 cap Ceftriaxone Sodium (Rocephin 1 Gram Ivpb) 1 gm in 100 mls @ 100 mls/hr IVPB DAILY [facility] PRN Reason: Protocol Last Admin: 07/28/17 09:21 Dose: 100 mls/hr Sodium Chloride (Sodium Chloride 0.45%) 1,000 mls @ 50 mls/hr IV .Q20H [facility] Insulin Detemir (Levemir) 10 unit SC BID [facility] Last Admin: 07/28/17 09:20 Dose: 10 unit Insulin Human Lispro (Humalog) 10 units SC AC [facility] Last Admin: 07/28/17 08:27 Dose: 10 units Insulin Human Regular (Humulin R Low) 0 units SC ACHS [facility] PRN Reason: Protocol Last Admin: 07/28/17 12:22 Dose: Not Given Methylprednisolone (Solu-Medrol) 30 mg IV Q6 [facility] Nicotine (Nicoderm Cq) 1 patch TD DAILY [facility] Last Admin: 07/28/17 09:23 Dose: Not Given Oxycodone HCl (Oxycodone Immediate Release Tab) 5 mg PO Q6H PRN PRN Reason: Pain, moderate (4-7) Last Admin: 07/28/17 09:40 Dose: 5 mg Pantoprazole Sodium (Protonix Ec Tab) 40 mg PO 0600,1600 [facility] Tolterodine Tartrate (Detrol) 2 mg PO BID [facility] Last Admin: 07/28/17 09:21 Dose: 2 mg Physical Exam - Constitutional Appears: No Acute Distress - Head Exam Head Exam: ATRAUMATIC, NORMOCEPHALIC - Eye Exam Eye Exam: EOMI, Normal appearance - ENT Exam ENT Exam: Mucous Membranes Dry - Respiratory Exam Respiratory Exam: Wheezes, NORMAL BREATHING PATTERN. absent: Decreased Breath Sounds, Rales, Rhonchi, Respiratory Distress, Stridor - Cardiovascular Exam Cardiovascular Exam: REGULAR RHYTHM, +S1, +S2. absent: Bradycardia, Tachycardia , Diastolic murmur, Systolic Murmur - GI/Abdominal Exam GI & Abdominal Exam: Normal Bowel Sounds, Soft. absent: Distended, Firm, Guarding, Hernia, Tenderness - Extremities Exam Extremities exam: Positive for: normal inspection. Negative for: pedal edema - Neurological Exam Neurological exam: Alert, Oriented x3 - Skin Skin Exam: Dry, Intact, Normal Color, Warm Results - Vital Signs Recent Vital Signs: Last Vital Signs Temp 98.4 F 07/28/17 00:01 Pulse 105 H 07/28/17 10:00 Resp 19 07/28/17 00:01 BP 157/66 H 07/28/17 00:01 Pulse Ox 96 07/28/17 00:01 - Labs Result Diagrams: 07/28/17 12:50 07/28/17 12:50 Labs: Laboratory Results - last 24 hr 07/27/17 07/28/17 07/28/17 16:16 07:31 08:10 WBC RBC Hgb Hct MCV MCH MCHC RDW Plt Count MPV Gran % Lymph % (Auto) [place] % (Auto) Eos % (Auto) Baso % (Auto) Gran # Lymph # (Auto) [place] # (Auto) Eos # (Auto) Baso # (Auto) POC Glucose (mg/dL) 242 H 249 H LDL Cholesterol Direct Emesis for Blood Positive H 07/28/17 07/28/17 12:50 12:50 WBC 21.4 H D RBC 4.00 Hgb 11.1 L Hct 34.8 L MCV 87.0 D MCH 27.8 MCHC 31.9 RDW 15.4 H Plt Count 328 MPV 10.2 Gran % 85.8 H Lymph % (Auto) 6.0 L [place] % (Auto) 8.2 H Eos % (Auto) 0.0 L Baso % (Auto) 0.0 Gran # 18.35 H Lymph # (Auto) 1.3 [place] # (Auto) 1.8 H Eos # (Auto) 0.0 Baso # (Auto) 0.01 POC Glucose (mg/dL) LDL Cholesterol Direct 195 H Emesis for Blood Assessment & Plan - Assessment and Plan (Free Text) Assessment: 56 yo female with PMH of COPD on 3L at home, breast CA, DM, anxiety, chronic back pain, anemia and arthritis presents to [facility] due to shortness of breath and general not feeling well. GI consult was placed due to multiple episodes of coffee ground emesis. hematemesis anemia COPD exacerbation respiratory tract infection hyperlipidemia Plan: differtial diagnoses includes NSAID induced ulcer, gastroporesis, Sarah Marr tear CT chest/abd.pelvis showed hiatal hernia with dilated esophagus, chronic right apical and right middle lobe fibrosis, gallstone, mild hydronephrosis echo pending chart reviewed continue to monitor H/H for overt bleeding change protonix to IV daily 40mg start 5mg reglan achs zofran prn clear liquid diet case reviewed and discussed with Dr. Coker
[2017-07-28] MEDS: Sodium Chloride 0.45% 1,000 ML IV SCH (13:43)
[2017-07-28] MEDS ORDERED: MethylPREDNISolone 40 mg Vial IVP SCH (13:45)
[2017-07-28] MEDS ORDERED: Morphine 2 mg/ml ISec IVP STA (15:57)
[2017-07-28] MEDS ORDERED: Pantoprazole 40 mg EC Tab PO SCH (16:00)
[2017-07-28] MEDS ORDERED: Morphine 4 mg/ml ISec IVP STA ×2 (16:19→16:32)
--- NOTE | 2017-07-28 18:22 | PN ---
DATE: 07/28/2017 PULMONARY PROGRESS NOTE REFERRING PHYSICIAN: Sloan Sosa MD SUBJECTIVE: She is lying in the bed, sleepy, arousable, having vomiting with coffee-ground vomit material. No chest pain. Breathing is better. No dysuria. No melena. No leg pain or leg swelling. OBJECTIVE: GENERAL: In no acute distress. VITAL SIGNS: Temperature is 98, heart rate 105, respiratory rate is 20, blood pressure 157/66, pulse ox 96% on nasal cannula. HEENT: Moist mucous membranes. No ulcer or thrush. NECK: Supple. No JVD. LUNGS: Better airflow than yesterday. Has wheezing, prolonged expiratory phase. HEART: S1 and S2. ABDOMEN: Soft, nontender. No organomegaly. EXTREMITIES: No edema. NEUROLOGIC: Awake, alert, and follows simple command. MEDICATIONS: She is on Mucomyst inhaled twice a day, Detrol 2 mg twice a day, doxycycline 100 mg twice a day, vitamin D 50,000 units every 7 days, DuoNeb four times daily, Ecotrin 81 mg daily which is on hold, insulin coverage, Lovenox is on hold, Nicoderm patches daily, oxycodone immediate release 5 mg every 6 hours p.r.n., Protonix 40 mg IV daily, Reglan 5 mg IV before meals and at bedtime, Rocephin 1 g daily, IV fluid half-normal saline 50 mL/hour, Solu-Medrol 30 mg every 6 hours, Xanax 0.25 mg four times daily, Zofran p.r.n. basis. LABORATORY DATA: Shows hemoglobin 11.1, hematocrit 34.8, WBC 21,000, and platelets 328. Sodium 148, potassium 4.2, chloride 94, bicarbonate 38. BUN 58, creatinine 1.7. Glucose 137. Calcium 8.9, phosphorus 4, magnesium 2. Triglyceride is 238, cholesterol is 283. Urinalysis shows wbc 20 to 25. Microbiology: Blood culture and urine culture, there is no growth. 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 Had echocardiogram done, report is pending. IMPRESSION AND PLAN: Chronic obstructive lung disease; atelectasis; history of breast cancer, had been on chemotherapy in the past; recurrent urinary tract infection, anxiety/depression, insulin dependent diabetes, history of renal stone with hydronephrosis, gastroesophageal reflux disease, dilated esophagus, coffee-ground vomit. Seen by GI. Pulmonary point of view, I will suggest discontinuation of Solu-Medrol for now, continue inhaled bronchodilator. Lovenox is on hold, I will discontinue it. Continue Protonix. Follow H and H closely. SCD to lower extremity. May use p.r.n. Solu-Medrol in case she can develop bronchospasm. For now, her lungs sound better than yesterday. Airflow is much better. Thank you and we will follow with you. Lisa Rucker MD
[2017-07-29 06:57] LABS: EOS % 0.1 % (1.5-5.0); GRAN # 11.65 (1.4-6.5); GRAN % 79.2 % (50.0-68.0); HEMOGLOBIN 9.2 g/dL (12.0-16.0); LYMPH # 1.9 (1.2-3.4); LYMPH % 13.1 % (22.0-35.0); MEAN CORPUSCULAR HEMOGLOBIN 26.7 pg (25.0-35.0); MEAN CORPUSCULAR HGB CONC 30.1 g/dl (31.0-37.0); MEAN PLATELET VOLUME 9.4 fl (7.0-11.0); MONO # 1.1 (0.1-0.6); MONO % 7.6 % (1.0-6.0); RBC 3.44 10^6/uL (3.5-6.1); RED CELL DISTRIBUTION WIDTH 15.7 % (11.5-14.5); WHITE BLOOD COUNT 14.7 10^3/ul (4.5-11.0)
[2017-07-29] MEDS: Sodium Chloride 0.45% 1,000 ML IV SCH (07:06)
[2017-07-29 07:29] LABS: ALB/GLOB RATIO 1.4 (1.1-1.8); ALBUMIN 3.5 g/dL (3.0-4.8); CALCIUM 7.8 mg/dL (8.4-10.5)
[2017-07-29] MEDS: Acetylcysteine 20% Inhal Soln (4ml) IH SCH ×2 (07:41→22:00)
[2017-07-29] MEDS: Albuterol-Ipratrop 3 mg / 0.5 (3 ml) UD IH SCH ×4 (07:41→22:00)
[2017-07-29] MEDS: oxyCODONE 5 mg Immediate Release Tab PO PRN ×2 (08:04→14:35)
[2017-07-29] MEDS: Insulin Reg-LOW-Coverage SC SCH ×4 (08:17→22:01)
[2017-07-29] MEDS: cefTRIAXone 1 gm 1 GM/100 ML BAG IVPB SCH (09:29)
--- NOTE | 2017-07-29 18:23 | PN ---
DATE: 07/29/2017 PULMONARY PROGRESS NOTE REFERRING PHYSICIAN: Sloan Sosa MD. SUBJECTIVE: She is lying in the bed, head at 45 degrees, sleepy, arousable, tolerated breakfast and lunch well. No more vomiting today. No headache, no rhinitis. Cough is better. No dysuria. No leg pain or leg swelling. PHYSICAL EXAMINATION: GENERAL: In no acute distress. VITAL SIGNS: Temperature is 98, heart rate is 92, respiratory rate is 20, blood pressure 154/72, pulse ox 93% on nasal cannula. HEENT: Moist mucous membrane. Crowded airway. NECK: Supple. No JVD. LUNGS: Have a few scattered rhonchi. HEART: S1 and S2. ABDOMEN: Soft, nontender. No organomegaly. EXTREMITIES: No edema. NEUROLOGIC: Sleepy, arousable. Follows simple command. MEDICATIONS: She is on Mucomyst 20% inhaled twice a day, Detrol 2 mg twice a day, doxycycline 100 mg twice a day, DuoNeb four times a day, Ecotrin 81 mg daily, insulin coverage, Levemir 10 units subcu twice a day, Nicoderm patch daily, oxycodone immediate release 5 mg every 6 hours p.r.n., Protonix 40 mg daily, Reglan 5 mg IV before meals and at bedtime, Rocephin 1 g IV daily, IV fluid half-normal saline 50 mL per hour, Xanax 0.5 mg four times a day, and Zofran p.r.n. basis. LABORATORY DATA: Shows hemoglobin 9.2, hematocrit 30.6, WBC 14.7, platelet is 268. Sodium 143, potassium 4, chloride 93, bicarbonate 41, BUN 55, creatinine 1.7, glucose 190, calcium 7.8. AST 24, AST 19, alkaline phosphatase is 59, albumin is 3.5. Microbiology: Blood culture and urine culture, there is no growth. IMPRESSION AND PLAN: Chronic obstructive lung disease; atelectasis; history of breast cancer, been on chemotherapy; recurrent urinary tract infection; anxiety/depression disorder; insulin-dependent diabetes; history of renal stone with hydronephrosis; gastroesophageal reflux disease; dilated esophagus, status post vomiting; gastrointestinal bleed with drop of hemoglobin. Pulmonary point view, doing well. Steroids have been discontinued. On inhaled bronchodilator, antibiotics, gastric prophylaxis, sequential compression devices to lower extremity. Follow up by GI. Follow up labs in the morning. Spoke to family at bedside. All the questions answered. Thank you and we will follow with you. Lisa Rucker MD
--- NOTE | 2017-07-29 21:37 | CP.PCM.CON ---
History of Present Illness - History of Present Illness History of Present Illness: General Surgery Consult Note for Dr. Abbott Reason for consult: hematemesis 56F with PMH that includes COPD on home oxygen, breast CA, DM, anxiety, chronic back pain, anemia presents to [facility] due to shortness of breath and malaise. Patient was seen and evaluated on telemetry floor. Surgery was consulted to multiple episodes of "vomiting blood". Patient states that she had last episode of vomiting blood around 4:00 AM. Yesterday, she reports several episodes. GI was consulted and recommended EGD but patient refused. She states she refused because she did not want to do any tests today but is amenable now. She states that she has had episodes of vomiting at home where it was brown in color. Patient never had a colonoscopy or EGD in the past. Patient report to taking Advil a few times per week. She is current smoker, about 1 pack per day. Patient is tolerating liquid diet. Admits to BMs and flatus. Denies melena, hematochezia, fever/chills, chest pain, SOB, palpitations, abdominal pain, diarrhea, constipation, dizziness/lightheadedness, vertigo, or urinary symptoms. PMH: COPD on home oxygen, breast CA, DM, anxiety, chronic back pain, arthritis, anemia Meds: As per EMR Allergy: Levaquin, nystatin PSH: Right chest port, hernia repair, Family History: father colon cacer, daughter skin ca Social history: 1 pack/day for 45 yrs, denies EtOH or illicit drug use currently (history of EtOH use) Review of Systems - Review of Systems All systems: reviewed and no additional remarkable complaints except (as per HPI ) Past Patient History - Infectious Disease Hx of Infectious Diseases: None - Tetanus Immunizations Tetanus Immunization: Unknown - Past Medical History & Family History Past Medical History?: Yes - Past Social History Smoking Status: Unknown If Ever Smoked - CARDIAC Hx Cardiac Disorders: Yes Hx Hypercholesterolemia: Yes Hx Hypertension: Yes - PULMONARY Hx Respiratory Disorders: Yes Hx Chronic Obstructive Pulmonary Disease (COPD): Yes Hx Emphysema: Yes Hx Pneumonia: Yes - NEUROLOGICAL Hx Neurological Disorder: No - HEENT Hx HEENT Problems: No - RENAL Hx Chronic Kidney Disease: No - ENDOCRINE/METABOLIC Hx Endocrine Disorders: Yes Hx Diabetes Mellitus Type 2: Yes - HEMATOLOGICAL/ONCOLOGICAL Hx Blood Disorders: Yes Hx Cancer: Yes - INTEGUMENTARY Hx Dermatological Problems: No - MUSCULOSKELETAL/RHEUMATOLOGICAL Hx Musculoskeletal Disorders: Yes Hx Arthritis: Yes Hx Falls: No - GASTROINTESTINAL Hx Gastrointestinal Disorders: No - GENITOURINARY/GYNECOLOGICAL Hx Genitourinary Disorders: No - PSYCHIATRIC Hx Psychophysiologic Disorder: Yes Hx Anxiety: Yes Hx Depression: Yes - SURGICAL HISTORY Hx Surgeries: Yes - ANESTHESIA Hx Anesthesia Reactions: No Hx Malignant Hyperthermia: No Meds Allergies/Adverse Reactions: Allergies Allergy/AdvReac Type Severity Reaction Status Date / Time levofloxacin [From Levaquin] Allergy SHORTNESS Verified 07/26/17 15:58 OF BREATH;PARANOID nystatin Allergy SWELLING Verified 07/26/17 15:58 - Medications Medications: Current Medications Acetylcysteine (Acetylcysteine 20%) 3 ml IH BIDRESP [facility] Last Admin: 07/29/17 07:41 Dose: 3 ml Albuterol/Ipratropium (Duoneb 3 Mg/0.5 Mg (3 Ml) Ud) 3 ml IH QIDRESP [facility] Last Admin: 07/29/17 15:13 Dose: 3 ml Alprazolam (Xanax) 0.5 mg PO QID [facility] PRN Reason: Protocol Last Admin: 07/29/17 21:02 Dose: 0.5 mg Aspirin (Ecotrin) 81 mg PO DAILY [facility] Last Admin: 07/28/17 09:21 Dose: 81 mg Atorvastatin Calcium (Lipitor) 20 mg PO DIN [facility] Doxycycline Hyclate (Doryx) 100 mg PO Q12 [facility] Stop: 07/30/17 10:01 Last Admin: 07/29/17 21:02 Dose: 100 mg Ceftriaxone Sodium (Rocephin 1 Gram Ivpb) 1 gm in 100 mls @ 100 mls/hr IVPB DAILY [facility] PRN Reason: Protocol Last Admin: 07/29/17 09:29 Dose: 100 mls/hr Sodium Chloride (Sodium Chloride 0.45%) 1,000 mls @ 50 mls/hr IV .Q20H [facility] Last Admin: 07/29/17 07:06 Dose: 50 mls/hr Insulin Detemir (Levemir) 10 unit SC BID [facility] Last Admin: 07/28/17 09:20 Dose: 10 unit Insulin Human Lispro (Humalog) 10 units SC AC [facility] Last Admin: 07/28/17 08:27 Dose: 10 units Insulin Human Regular (Humulin R Low) 0 units SC ACHS [facility] PRN Reason: Protocol Last Admin: 07/29/17 16:55 Dose: 2 units Metoclopramide HCl (Reglan) 5 mg IVP [facility] Last Admin: 07/29/17 17:02 Dose: Not Given Nicotine (Nicoderm Cq) 1 patch TD DAILY [facility] Last Admin: 07/29/17 09:38 Dose: 1 patch Ondansetron HCl (Zofran Inj) 4 mg IVP Q6H PRN PRN Reason: Nausea/Vomiting Oxycodone HCl (Oxycodone Immediate Release Tab) 5 mg PO Q6H PRN PRN Reason: Pain, moderate (4-7) Last Admin: 07/29/17 14:35 Dose: 5 mg Pantoprazole Sodium (Protonix Inj) 40 mg IVP DAILY [facility] Last Admin: 07/29/17 09:29 Dose: 40 mg Tolterodine Tartrate (Detrol) 2 mg PO BID [facility] Last Admin: 07/29/17 17:40 Dose: 2 mg Physical Exam - Constitutional Appears: No Acute Distress - Head Exam Head Exam: NORMOCEPHALIC Additional comments: small abrasion above left eye - Eye Exam Eye Exam: EOMI, Normal appearance Pupil Exam: PERRL - ENT Exam ENT Exam: Mucous Membranes Moist - Respiratory Exam Respiratory Exam: NORMAL BREATHING PATTERN - Cardiovascular Exam Cardiovascular Exam: REGULAR RHYTHM - GI/Abdominal Exam GI & Abdominal Exam: Normal Bowel Sounds, Soft. absent: Distended, Guarding, Rebound, Rigid, Tenderness - Extremities Exam Extremities exam: Positive for: normal capillary refill, pedal pulses present. Negative for: calf tenderness - Neurological Exam Neurological exam: Alert, CN II-XII Intact, Oriented x3 - Psychiatric Exam Psychiatric exam: Normal Affect, Normal Mood - Skin Skin Exam: Dry, Warm Results - Vital Signs Recent Vital Signs: Last Vital Signs Temp 98.4 F 07/29/17 18:00 Pulse 100 H 07/29/17 18:00 Resp 20 07/29/17 18:00 BP 142/63 07/29/17 18:00 Pulse Ox 95 07/29/17 18:00 - Labs Result Diagrams: 07/30/17 00:50 07/29/17 06:00 Labs: Laboratory Results - last 24 hr 07/28/17 07/29/17 07/29/17 21:46 06:00 06:00 WBC 14.7 H D RBC 3.44 L Hgb 9.2 L Hct 30.6 L MCV 89.0 MCH 26.7 MCHC 30.1 L RDW 15.7 H Plt Count 268 MPV 9.4 Gran % 79.2 H Lymph % (Auto) 13.1 L Mccracken % (Auto) 7.6 H Eos % (Auto) 0.1 L Baso % (Auto) 0.0 Gran # 11.65 H Lymph # (Auto) 1.9 Mccracken # (Auto) 1.1 H Eos # (Auto) 0.0 Baso # (Auto) 0.00 Sodium 143 Potassium 4.0 Chloride 93 L Carbon Dioxide 41 H Anion Gap 13 BUN 55 H Creatinine 1.7 H Est GFR ( Amer) 37 Est GFR (Non-Af Amer) 31 POC Glucose (mg/dL) 325 H Random Glucose 136 H Calcium 7.8 L Total Bilirubin 0.3 AST 24 ALT 19 Alkaline Phosphatase 59 Total Protein 6.0 Albumin 3.5 Globulin 2.5 Albumin/Globulin Ratio 1.4 07/29/17 07/29/17 07/29/17 07:21 11:26 16:18 WBC RBC Hgb Hct MCV MCH MCHC RDW Plt Count MPV Gran % Lymph % (Auto) Mccracken % (Auto) Eos % (Auto) Baso % (Auto) Gran # Lymph # (Auto) Mccracken # (Auto) Eos # (Auto) Baso # (Auto) Sodium Potassium Chloride Carbon Dioxide Anion Gap BUN Creatinine Est GFR ( Amer) Est GFR (Non-Af Amer) POC Glucose (mg/dL) 133 H 190 H 208 H Random Glucose Calcium Total Bilirubin AST ALT Alkaline Phosphatase Total Protein Albumin Globulin Albumin/Globulin Ratio Assessment & Plan - Assessment and Plan (Free Text) Assessment: 56 F with hematemesis/GI bleed Plan: -Last episode at 4:00 AM on 07/29 -Monitor Hgb -Transfuse if necessary -Recommend EGD -f/u GI recommendations -Will discuss with Dr. Scar Barlow PGY1
[2017-07-29 22:06] LABS: EOS % 0.3 % (1.5-5.0); GRAN # 7.81 (1.4-6.5); GRAN % 73.5 % (50.0-68.0); HEMOGLOBIN 8.9 g/dL (12.0-16.0); LYMPH # 2.1 (1.2-3.4); MEAN CELL VOLUME 90.1 fl (80.0-105.0); MEAN CORPUSCULAR HEMOGLOBIN 26.8 pg (25.0-35.0); MEAN CORPUSCULAR HGB CONC 29.8 g/dl (31.0-37.0); MONO # 0.7 (0.1-0.6); MONO % 6.2 % (1.0-6.0); RBC 3.32 10^6/uL (3.5-6.1); RED CELL DISTRIBUTION WIDTH 16.2 % (11.5-14.5); WHITE BLOOD COUNT 10.6 10^3/ul (4.5-11.0)
[2017-07-30 01:10] LABS: HEMOGLOBIN 8.7 g/dL (12.0-16.0); MEAN CELL VOLUME 89.9 fl (80.0-105.0); MEAN CORPUSCULAR HEMOGLOBIN 27.4 pg (25.0-35.0); MEAN CORPUSCULAR HGB CONC 30.4 g/dl (31.0-37.0); RBC 3.18 10^6/uL (3.5-6.1)
[2017-07-30] MEDS: Sodium Chloride 0.45% 1,000 ML IV SCH ×2 (03:21→23:15)
[2017-07-30] MEDS: oxyCODONE 5 mg Immediate Release Tab PO PRN ×3 (04:26→21:08)
[2017-07-30 06:27] LABS: HEMOGLOBIN 8.7 g/dL (12.0-16.0); MEAN CELL VOLUME 89.9 fl (80.0-105.0); MEAN CORPUSCULAR HEMOGLOBIN 26.6 pg (25.0-35.0); MEAN CORPUSCULAR HGB CONC 29.6 g/dl (31.0-37.0); MEAN PLATELET VOLUME 10.1 fl (7.0-11.0); RBC 3.27 10^6/uL (3.5-6.1); WHITE BLOOD COUNT 9.9 10^3/ul (4.5-11.0)
[2017-07-30 06:53] LABS: ALB/GLOB RATIO 1.4 (1.1-1.8); ALBUMIN 3.4 g/dL (3.0-4.8); CALCIUM 7.7 mg/dL (8.4-10.5)
[2017-07-30] MEDS: Albuterol-Ipratrop 3 mg / 0.5 (3 ml) UD IH SCH ×4 (07:17→21:04)
[2017-07-30] MEDS: Acetylcysteine 20% Inhal Soln (4ml) IH SCH ×2 (07:17→21:03)
[2017-07-30] MEDS: Insulin Reg-LOW-Coverage SC SCH ×4 (08:09→22:20)
[2017-07-30] MEDS: cefTRIAXone 1 gm 1 GM/100 ML BAG IVPB SCH (09:43)
[2017-07-30] MEDS ORDERED: Alum-Mag Hydrox-Simethicone Susp (30 mL) PO ONE (13:27)
--- NOTE | 2017-07-30 22:36 | CON ---
DATE: HISTORY OF PRESENT ILLNESS: Yazmin Granado was seen on the floor. The patient is a patient of Dr. Simental who was admitted for hematemesis and has refused upper endoscopy. She is a 56-year-old with COPD, on oxygen at home because of shortness of breath and wheezing. There is a brown phlegm cough. Had pneumonia 5 years ago, was noted to be somewhat paranoid. The patient was admitted to the service of Dr. Sosa. Reviewed the patient and examined the patient with the resident, I agree with their findings. Noting that the hemoglobin is 8.7, relatively stable. Coags are relatively normal. Glucose is elevated at 184. BUN 40, creatinine of 1.6. The patient is no longer bleeding, has refused treatment, and diagnosis although right now she might be receptive to it. We discussed with GI about repeating it. There is no history of melena. We will follow with you . Memo Abbott MD
--- NOTE | 2017-07-30 22:44 | PN ---
DATE: 07/30/2017 PULMONARY PROGRESS NOTE REFERRING PHYSICIAN: Sloan Sosa MD. SUBJECTIVE: Sitting side of the bed. Night was unremarkable. No more nausea and vomiting since yesterday, on clear liquid diet and tolerating well. Cough is better. No nausea, no vomiting or diarrhea. No leg pain or leg swelling. OBJECTIVE: GENERAL: In no acute distress. VITAL SIGNS: Temperature is 98, heart rate is 90, respiratory rate is 20, blood pressure 113/65, pulse ox is 98% on nasal cannula. HEENT: Moist mucous membrane. Crowded airway. NECK: Supple. No JVD. LUNGS: Have a fair airflow with few rhonchi. HEART: S1 and S2. ABDOMEN: Soft, nontender. No organomegaly. EXTREMITIES: There is no edema. NEUROLOGIC: Awake and follows simple command. MEDICATIONS: She is on Mucomyst 20% inhaled twice a day, Detrol 2 mg twice a day, DuoNeb four times a day., Ecotrin 81 mg daily, insulin coverage, Levemir 10 units subcu b.i.d. which is on hold, Lipitor 20 mg daily, Nicoderm patch daily, oxycodone immediate release 5 mg every 6 hours p.r.n., Protonix 40 mg daily, Reglan 5 mg a.c. and at bedtime., IV fluid half-normal saline 50 mL per hour, Xanax 0.5 mg four times a day, Zofran p.r.n. basis. LABORATORY DATA: Shows hemoglobin 8.7, hematocrit 29.4, WBC is 9.9, platelet is 229. Sed rate is 31. Blood sugar 140. Sodium 143, potassium 4.4, chloride 96, bicarbonate 39, BUN 40, creatinine 1.6. Glucose again 184. Calcium is 7.7, AST 13, ALT 19, alk phos is 57. Troponin less than 0.01. Albumin is 3.4. Microbiology: Blood culture, urine culture is unremarkable. IMPRESSION AND PLAN: Chronic obstructive lung disease with atelectasis, history of breast cancer, been on chemotherapy in the past, recurrent urinary tract infection, anxiety disorder/depression, diabetes, history of renal stone, hydronephrosis, gastroesophageal reflux disease, dilated esophagus, status post coffee-ground vomit, on clear liquid diet. We will continue follow hemoglobin and hematocrit and electrolytes. Continue inhaled bronchodilator. Sequential compression device to lower extremity. Proton inhibitor. Fall precaution. Thank you and we will follow with you. Lisa Rucker MD
[2017-07-31] MEDS: oxyCODONE 5 mg Immediate Release Tab PO PRN ×3 (05:08→20:42)
[2017-07-31 06:11] LABS: HEMOGLOBIN 8.6 g/dL (12.0-16.0); MEAN CELL VOLUME 91.3 fl (80.0-105.0); MEAN CORPUSCULAR HEMOGLOBIN 26.8 pg (25.0-35.0); MEAN CORPUSCULAR HGB CONC 29.4 g/dl (31.0-37.0); MEAN PLATELET VOLUME 10.1 fl (7.0-11.0); RBC 3.21 10^6/uL (3.5-6.1); RED CELL DISTRIBUTION WIDTH 16.3 % (11.5-14.5); WHITE BLOOD COUNT 12.1 10^3/ul (4.5-11.0)
[2017-07-31 06:32] LABS: ALB/GLOB RATIO 1.4 (1.1-1.8); ALBUMIN 3.3 g/dL (3.0-4.8); CALCIUM 7.5 mg/dL (8.4-10.5)
[2017-07-31] MEDS: Albuterol-Ipratrop 3 mg / 0.5 (3 ml) UD IH SCH ×4 (07:34→20:14)
[2017-07-31] MEDS: Acetylcysteine 20% Inhal Soln (4ml) IH SCH ×2 (07:34→20:14)
--- NOTE | 2017-07-31 07:46 | CP.PCM.PN ---
Subjective - Date & Time of Evaluation Date of Evaluation: 07/31/17 Time of Evaluation: 07:00 - Subjective Subjective: PGY-1 surgery progress note for Dr. Abbott Patient seen and examined. Patient reporting generalized malaise. No nausea, vomiting, or pain at this time. Objective - Vital Signs/Intake and Output Vital Signs (last 24 hours): Temp Pulse Resp BP Pulse Ox 98.6 F 88 19 126/61 95 07/31/17 06:00 07/31/17 06:00 07/31/17 06:00 07/31/17 06:00 07/31/17 06:00 Intake and Output: 07/31/17 07/31/17 06:59 18:59 Intake Total 1160 Output Total 600 Balance 560 - Medications Medications: Current Medications Acetylcysteine (Acetylcysteine 20%) 3 ml IH BIDRESP [facility] Last Admin: 07/31/17 07:34 Dose: 3 ml Albuterol/Ipratropium (Duoneb 3 Mg/0.5 Mg (3 Ml) Ud) 3 ml IH QIDRESP [facility] Last Admin: 07/31/17 07:34 Dose: 3 ml Alprazolam (Xanax) 0.5 mg PO QID [facility] PRN Reason: Protocol Last Admin: 07/30/17 22:20 Dose: 0.5 mg Aspirin (Ecotrin) 81 mg PO DAILY [facility] Last Admin: 07/28/17 09:21 Dose: 81 mg Atorvastatin Calcium (Lipitor) 20 mg PO DIN [facility] Last Admin: 07/30/17 17:31 Dose: 20 mg Docusate Sodium (Colace) 100 mg PO DAILY [facility] Sodium Chloride (Sodium Chloride 0.45%) 1,000 mls @ 50 mls/hr IV .Q20H [facility] Last Admin: 07/30/17 23:15 Dose: 50 mls/hr Insulin Detemir (Levemir) 10 unit SC BID [facility] Last Admin: 07/28/17 09:20 Dose: 10 unit Insulin Human Lispro (Humalog) 10 units SC AC [facility] Last Admin: 07/28/17 08:27 Dose: 10 units Insulin Human Regular (Humulin R Low) 0 units SC ACHS [facility] PRN Reason: Protocol Last Admin: 07/30/17 22:20 Dose: 2 units Metoclopramide HCl (Reglan) 5 mg IVP ACHS [facility] Last Admin: 07/30/17 22:21 Dose: Not Given Nicotine (Nicoderm Cq) 1 patch TD DAILY [facility] Last Admin: 07/30/17 09:41 Dose: 1 patch Ondansetron HCl (Zofran Inj) 4 mg IVP Q6H PRN PRN Reason: Nausea/Vomiting Oxycodone HCl (Oxycodone Immediate Release Tab) 5 mg PO Q6H PRN PRN Reason: Pain, moderate (4-7) Last Admin: 07/31/17 05:08 Dose: 5 mg Pantoprazole Sodium (Protonix Inj) 40 mg IVP BID [facility] Last Admin: 07/30/17 17:31 Dose: 40 mg Tolterodine Tartrate (Detrol) 2 mg PO BID [facility] Last Admin: 07/30/17 17:32 Dose: 2 mg - Labs Labs: 07/31/17 05:30 07/31/17 05:30 PT 12.2 SECONDS (9.4-12.5) 07/26/17 17:00 INR 1.07 (0.93-1.08) 07/26/17 17:00 APTT 35.6 Seconds (25.1-36.5) 07/26/17 17:00 - Constitutional Appears: No Acute Distress - Head Exam Head Exam: absent: ATRAUMATIC (wound on left side of the head) - Eye Exam Eye Exam: EOMI, Normal appearance - ENT Exam ENT Exam: Mucous Membranes Moist - Respiratory Exam Respiratory Exam: NORMAL BREATHING PATTERN. absent: Accessory Muscle Use, Respiratory Distress - Cardiovascular Exam Cardiovascular Exam: +S1, +S2 - GI/Abdominal Exam GI & Abdominal Exam: Soft. absent: Tenderness - Extremities Exam Extremities Exam: absent: Pedal Edema - Neurological Exam Neurological Exam: Alert, Awake - Psychiatric Exam Psychiatric exam: Anxious - Skin Skin Exam: Dry, Warm Assessment and Plan - Assessment and Plan (Free Text) Assessment: This is a 56 year old female with complaint of hematemesis. Plan: Hematemesis Patient currently NPO Awaiting EGD and further GI recommendations Further recs per Dr. Scar Harkins PGY-1
[2017-07-31] MEDS: Insulin Reg-LOW-Coverage SC SCH ×4 (08:30→21:52)
--- NOTE | 2017-07-31 08:35 | CARD ---
APPROVED REPORT EKG Measurement Heart [id number] <Conclusion> Normal sinus rhythm Normal ECG Increased precordial lead voltage, otherwise no change
--- NOTE | 2017-07-31 11:58 | PN ---
DATE: 07/31/2017 PULMONARY PROGRESS NOTE REFERRING PHYSICIAN: Sloan Sosa MD. SUBJECTIVE: She is sitting on side of the bed. Night was unremarkable. No headache. No rhinitis. No more vomiting since 2 days. Short of breath is better. No nausea. No vomiting, diarrhea, leg pain, leg swelling. OBJECTIVE: GENERAL: In no acute distress. VITAL SIGNS: Temperature is 98, heart rate is 88, respiratory rate is 20, blood pressure 120/60, pulse ox 95% on room air. HEENT: Moist mucous membrane. Crowded airway. NECK: Supple. No JVD. LUNGS: Have a few scattered rhonchi. HEART: S1 and S2. ABDOMEN: Soft, nontender. No organomegaly. EXTREMITIES: No edema. NEUROLOGICAL: Awake and alert, follows simple command. MEDICATIONS: She is on Mucomyst inhaled twice a day, Colace 100 mg daily, Detrol 2 mg twice a day, DuoNeb four times daily, Ecotrin 81 mg daily, insulin coverage, Levemir 10 units subcu twice a day, Lipitor 20 mg daily, Nicoderm patch daily, oxycodone immediate release 5 mg every 6 hours p.r.n., Protonix 40 mg daily, Reglan 5 mg IVP before meals and at bedtime, IV fluid half-normal saline 50 mL/hour, Xanax 0.5 mg four times daily, Zofran p.r.n. basis. LABORATORY DATA: Shows hemoglobin 8.6, hematocrit 29.3, WBC 12.1, platelet is 237. Sodium 144, potassium 4.6, chloride 99, bicarbonate 34, BUN 37, creatinine 1.8, glucose 134, calcium 7.5, AST 16, ALT 19, alk phos is 57. Albumin is 3.3. Microbiology: Blood culture, there is no growth. IMPRESSION AND PLAN: Chronic obstructive lung disease with atelectasis; history of breast cancer, been on chemotherapy; recurrent urinary tract infection, anxiety disorder/depression, diabetes, renal stone, hydronephrosis, gastroesophageal reflux disease, dilated esophagus, status post coffee-ground vomiting, decreased hemoglobin, been stable for last 2 days. Pulmonary point of view, she is doing okay. Sleep apnea precaution. If sedated, needs close cardiopulmonary monitoring. Continue inhaled bronchodilator, gastric prophylaxis. Sequential compression device to lower extremity. Follow up labs in the morning. Thank you and we will follow with you. Lisa Rucker MD
--- NOTE | 2017-07-31 14:48 | PN ---
DATE: 07/31/2017 REASON FOR CONSULTATION AND FOLLOWUP: Shortness of breath, hypertension, diabetes mellitus, respiratory tract infection, rule out GI bleed, cardiac evaluation. BRIEF CLINICAL HISTORY: The patient denies any chest pain, shortness of breath, or any palpitations. SUBJECTIVE: No shortness of breath. No chest pain. For endoscopy today. PHYSICAL EXAMINATION: GENERAL: Not in apparent distress. VITAL SIGNS: As follows, temperature afebrile, heart rate 90, blood pressure 127/60. HEENT: PERRLA. Extraocular muscles are intact. NECK: Supple. No carotid bruit or thyromegaly. CHEST: Clear to auscultation. HEART: S1 and S2 regular. ABDOMEN: Soft. EXTREMITIES: Clubbing and cyanosis negative. LABORATORY DATA: Blood workup as follows: WBC 12.1, hemoglobin 8.6, hematocrit 29.3, platelet count 237. Chemistry shows sodium 140, potassium 4.6, chloride 99, carbon dioxide 34, anion gap of 15, BUN 37, creatinine 1.8. IMPRESSION: Chronic renal insufficiency, anemia, diabetes, hypertension, active smoker, exacerbation of chronic obstructive pulmonary disease, respiratory tract infection, hyperlipidemia, history of cancer of the breast in the past, chronic pain, anxiety, depression and history of renal stone and hydronephrosis in the past. RECOMMENDATIONS: CVS status is stable. Continue gentle hydration. Monitor renal function. Continue antibiotics. The patient is for endoscopy today. No evidence of acute NC. We will review the echo when it is done. We will follow with you. EKG shows normal sinus, no acute ST-T changes noted. We will discontinue Telemetry. We will repeat the blood workup in the morning. Thank you Dr. Sosa for providing us the opportunity in taking care of Yazmin Granado. Lisa Hernandez MD
--- NOTE | 2017-07-31 14:54 | PN ---
DATE: 07/31/2017 SUBJECTIVE: Yazmin Granado is seen. She is on a regular diet at the moment. She has refused EGD in the past. GI I believe is being recalled for possible endoscopy. Memo Abbott MD
--- NOTE | 2017-07-31 14:59 | CP.PCM.PN ---
Subjective - Date & Time of Evaluation Date of Evaluation: 07/31/17 Time of Evaluation: 14:00 - Subjective Subjective: PGY-2 GI progress note for Dr. Coker's service Patient seen and examined at bedside. No acute distress. Patient states that she is feeling better. She states atht she is no longer vomiting, no long nauseous. She states that she has not had bowel movement. She denies abd pain, chest pain, sob, fever, chills. Patient is agreeable for endoscopy. Tolerating purred diet. Objective - Vital Signs/Intake and Output Vital Signs (last 24 hours): Temp Pulse Resp BP Pulse Ox 98.2 F 95 H 19 127/60 95 07/31/17 12:00 07/31/17 14:00 07/31/17 12:00 07/31/17 12:00 07/31/17 06:00 Intake and Output: 07/31/17 07/31/17 06:59 18:59 Intake Total 1160 Output Total 600 Balance 560 - Medications Medications: Current Medications Acetylcysteine (Acetylcysteine 20%) 3 ml IH BIDRESP [facility] Last Admin: 07/31/17 07:34 Dose: 3 ml Albuterol/Ipratropium (Duoneb 3 Mg/0.5 Mg (3 Ml) Ud) 3 ml IH QIDRESP [facility]END[facility] Last Admin: 07/31/17 11:00 Dose: 3 ml Alprazolam (Xanax) 0.5 mg PO QID [facility] PRN Reason: Protocol Last Admin: 07/31/17 14:35 Dose: 0.5 mg Aspirin (Ecotrin) 81 mg PO DAILY [facility] Last Admin: 07/28/17 09:21 Dose: 81 mg Atorvastatin Calcium (Lipitor) 20 mg PO DIN [facility] Last Admin: 07/30/17 17:31 Dose: 20 mg Docusate Sodium (Colace) 100 mg PO DAILY [facility] Last Admin: 07/31/17 11:18 Dose: 100 mg Sodium Chloride (Sodium Chloride 0.45%) 1,000 mls @ 50 mls/hr IV .Q20H [facility] Last Admin: 07/30/17 23:15 Dose: 50 mls/hr Insulin Detemir (Levemir) 10 unit SC BID [facility] Last Admin: 07/28/17 09:20 Dose: 10 unit Insulin Human Lispro (Humalog) 10 units SC AC [facility] Last Admin: 07/28/17 08:27 Dose: 10 units Insulin Human Regular (Humulin R Low) 0 units SC [facility] PRN Reason: Protocol Last Admin: 07/31/17 12:58 Dose: 1 units Metoclopramide HCl (Reglan) 5 mg IVP [facility] Last Admin: 07/31/17 11:28 Dose: 5 mg Nicotine (Nicoderm Cq) 1 patch TD DAILY [facility] Last Admin: 07/31/17 11:19 Dose: 1 patch Ondansetron HCl (Zofran Inj) 4 mg IVP Q6H PRN PRN Reason: Nausea/Vomiting Oxycodone HCl (Oxycodone Immediate Release Tab) 5 mg PO Q6H PRN PRN Reason: Pain, moderate (4-7) Last Admin: 07/31/17 11:27 Dose: 5 mg Pantoprazole Sodium (Protonix Inj) 40 mg IVP BID [facility] Last Admin: 07/31/17 11:19 Dose: 40 mg Tolterodine Tartrate (Detrol) 2 mg PO BID [facility] Last Admin: 07/31/17 11:19 Dose: 2 mg - Labs Labs: 07/31/17 05:30 07/31/17 05:30 PT 12.2 SECONDS (9.4-12.5) 07/26/17 17:00 INR 1.07 (0.93-1.08) 07/26/17 17:00 APTT 35.6 Seconds (25.1-36.5) 07/26/17 17:00 - Constitutional Appears: Well, No Acute Distress - Head Exam Head Exam: ATRAUMATIC, NORMOCEPHALIC - Eye Exam Eye Exam: EOMI, Normal appearance - ENT Exam ENT Exam: Mucous Membranes Moist - Respiratory Exam Respiratory Exam: Clear to Ausculation Bilateral, NORMAL BREATHING PATTERN. absent: Rhonchi, Wheezes, Respiratory Distress - Cardiovascular Exam Cardiovascular Exam: REGULAR RHYTHM, +S1, +S2. absent: Bradycardia, Tachycardia , Murmur - GI/Abdominal Exam GI & Abdominal Exam: Soft, Normal Bowel Sounds. absent: Distended, Firm, Guarding, Tenderness - Extremities Exam Extremities Exam: Normal Inspection. absent: Pedal Edema, Tenderness - Neurological Exam Neurological Exam: Alert, Awake, Oriented x3 - Skin Skin Exam: Dry, Intact, Normal Color, Warm Assessment and Plan - Assessment and Plan (Free Text) Assessment: 56 yo female with PMH of COPD on 3L at home, breast CA, DM, anxiety, chronic back pain, anemia and arthritis presents to [facility] due to shortness of breath and general not feeling well. GI consult was placed due to multiple episodes of coffee ground emesis. 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 Coker
--- NOTE | 2017-07-31 15:17 | CARD ---
APPROVED REPORT EXAM: Two-dimensional and M-mode echocardiogram with Doppler and color Doppler. INDICATION RVSP, COPD, LVFX, SOB 2D DIMENSIONS Left Atrium (2D)4.1 (1.6-4.0cm)IVSd1.2 (0.7-1.1cm) LVDd3.6 (3.9-5.9cm)PWd1.2 (0.7-1.1cm) LVDs2.4 (2.5-4.0cm)FS (%) 32.1 % LVEF (%)61.2 (>50%) M-Mode DIMENSIONS Aortic Root2.80 (2.2-3.7cm)Aortic Cusp Exc.1.50 (1.5-2.0cm) Aortic Valve AoV Peak Jcpslwhh005.0cm/Heidi Peak GR.10mmHg Mitral Valve MV E Mqzofmii85.5cm/sMV A Evzqrwmi77.0cm/sE/A ratio0.9 TDI E/Lateral E'0.0E/Medial E'0.0 Pulmonary Valve PV Peak Xiyvpxnc156.0cm/sPV Peak Grad.6mmHg Tricuspid Valve TR Peak [id number]/sRAP [id number] Peak Gr.10mmHg [id number] LEFT VENTRICLE The left ventricle is normal size. There is borderline to mild concentric left ventricular hypertrophy. The left ventricular function is normal.EF-60-65% There is normal LV segmental wall motion. Transmitral Doppler flow pattern is Grade III-reversible restrictive diastolic dysfunction. No left ventricle thrombus noted on this study. There is no ventricular septal defect visualized. There is no left ventricular aneurysm. There is no mass noted in the left ventricle. RIGHT VENTRICLE The right ventricle is normal size. There is normal right ventricular wall thickness. The right ventricular systolic function is normal. ATRIA The left atrium is mildly dilated. The right atrium size is normal. The interatrial septum is intact with no evidence for an atrial septal defect. AORTIC VALVE The aortic valve is thickened but opens well. No aortic regurgitation is present. There is no aortic valvular stenosis. There is no aortic valvular vegetation. MITRAL VALVE The mitral valve is thickened but opens well. Mitral annular calcification is moderate. Mitral regurgitation is trace. There is no mitral valve stenosis. There is no evidence of mitral valve prolapse. TRICUSPID VALVE The tricuspid valve leaflets are thickened , but open well. There is trace tricuspid regurgitation.RVSP-20 mmodf Hg, There is no tricuspid valve stenosis. There is no tricuspid valve prolapse or vegetation. PULMONIC VALVE The pulmonic valve is mildly thickened. There is no pulmonic valvular regurgitation. There is no pulmonic valvular stenosis. GREAT VESSELS The aortic root is normal in size. The ascending aorta is normal in size. The pulmonary artery is normal. The IVC is normal in size and collapses >50% with inspiration. PERICARDIAL EFFUSION There is no pleural effusion. There is no pericardial effusion. <Conclusion> The left ventricle is normal size. There is borderline to mild concentric left ventricular hypertrophy. The left ventricular function is normal.EF-60-65% No aortic regurgitation is present. There is no aortic valvular stenosis. Mitral regurgitation is trace. There is trace tricuspid regurgitation.RVSP-20 mmodf Hg, There is no pericardial effusion.
--- NOTE | 2017-07-31 16:05 | CON ---
DATE: 07/31/2017 REASON FOR CONSULTATION: Acute kidney injury superimposed on chronic kidney disease stage 3, hypocalcemia, anemia. HISTORY OF PRESENT ILLNESS: A 56-year-old lady previously known to us from prior evaluation. The patient was admitted on 07/26/2017 with complaints of throwing up blood. The patient reports that she was throwing up blood for 2 days prior to presentation. She denies any diarrhea. She denies any constipation. She denies any pain. She complains of cough. She complains of shortness of breath. Although the patient reports that she was admitted for throwing up blood, PMD's note says that she was admitted for shortness of breath. She was also found to have cough, mild phlegm. No fever. Fatigue. The patient is being treated for COPD exacerbation. She is receiving inhalers, respiratory treatments, antibiotics. Consultation is requested today because of elevated BUN and creatinine. At the time of presentation, her BUN was 29 and her creatinine was 1.5. Today, her BUN is 37 and creatinine is 1.8. PAST MEDICAL AND SURGICAL HISTORY: COPD, COPD exacerbations, anxiety, chronic kidney disease stage 3, hyperkalemia, hypertension, history of breast cancer, chronic back pain, NIDDM FAMILY HISTORY: Noncontributory. SOCIAL HISTORY: Active smoker, smokes one pack per day, opiate abuse, no alcohol abuse, no drug abuse. ALLERGIES: LEVAQUIN AND NYSTATIN. MEDICATIONS: Currently, are Mucomyst, Colace, DuoNeb, aspirin, insulin, Lipitor, oxycodone, Protonix, Reglan, half-normal saline at 50, Xanax, Zofran. Her doxycycline was discontinued yesterday. Rocephin was discontinued yesterday. REVIEW OF SYSTEMS: All systems are reviewed, pertinent positives as mentioned in the history of presenting illness, rest unremarkable. PHYSICAL EXAMINATION: GENERAL: Obese, middle-aged lady sitting in bed. VITAL SIGNS: Blood pressure 127/60, heart rate 91, respiratory rate 19, temperature 98.2. HEENT: Normocephalic, atraumatic, positive pallor. NECK: Supple, no JVD. LUNGS: Bilateral rhonchi, crackles right side, expiratory wheeze. CARDIAC: S1 and S2, regular rate and rhythm, no murmur, no rub. ABDOMEN: Obese, distended, soft, nontender, bowel sounds present. EXTREMITIES: Trace lower extremity edema. INTAKE AND OUTPUT: 1840/600. LABORATORY DATA: WBC 12, hemoglobin 8.6, hematocrit 29, platelets 237. Sodium 144, potassium 4.6, chloride 99, CO2 of 34, BUN 37, creatinine 1.8, glucose 134, calcium 7.5. AST 16, ALT 19, total protein 5.6, albumin 3.3, globulin 2.3. Urinalysis yellow, slightly cloudy, pH 6, specific gravity 1.02, protein 100, glucose 500, blood moderate, leukocyte esterase moderate. Cultures, no growth so far. 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 ASSESSMENT: 1. Chronic obstructive pulmonary disease exacerbation. 2. Mci-xpjapqt-dvrjgcetb diabetes mellitus. 3. Hypertension. 4. Recent coffee-ground vomiting. 5. Mild acute kidney injury superimposed on chronic kidney disease stage 3. 6. Severe anemia. 7. History of breast cancer in the past. PLAN: 1. Check stool occults x3. 2. Check iron stores. 3. Monitor H and H. 4. Monitor fingersticks and continue insulin. 5. Continue respiratory treatments. 6. Agree with discontinuation of antibiotics since all cultures are negative. 7. Push p.o. fluids. Lula Hurd MD
[2017-07-31] MEDS: Sodium Chloride 0.45% 1,000 ML IV SCH (17:47)
[2017-07-31 21:24] LABS: FERRITIN 25.2 ng/mL
[2017-08-01] MEDS: oxyCODONE 5 mg Immediate Release Tab PO PRN ×3 (06:07→20:36)
[2017-08-01 06:18] LABS: HEMOGLOBIN 7.6 g/dL (12.0-16.0); MEAN CELL VOLUME 92.3 fl (80.0-105.0); MEAN CORPUSCULAR HEMOGLOBIN 27.8 pg (25.0-35.0); MEAN CORPUSCULAR HGB CONC 30.2 g/dl (31.0-37.0); RBC 2.73 10^6/uL (3.5-6.1); RED CELL DISTRIBUTION WIDTH 16.4 % (11.5-14.5); WHITE BLOOD COUNT 10.5 10^3/ul (4.5-11.0)
[2017-08-01 06:38] LABS: ALB/GLOB RATIO 1.3 (1.1-1.8); ALBUMIN 2.8 g/dL (3.0-4.8); CALCIUM 7.2 mg/dL (8.4-10.5)
[2017-08-01 07:17] LABS: IRON < 10 ug/dL (45-180); TOTAL IRON BINDING CAPACITY 218 ug/dL (265-497)
[2017-08-01] MEDS: Acetylcysteine 20% Inhal Soln (4ml) IH SCH ×2 (07:36→19:35)
[2017-08-01] MEDS: Albuterol-Ipratrop 3 mg / 0.5 (3 ml) UD IH SCH ×4 (07:37→19:36)
--- NOTE | 2017-08-01 07:53 | CP.PCM.PN ---
Subjective - Date & Time of Evaluation Date of Evaluation: 08/01/17 Time of Evaluation: 07:30 - Subjective Subjective: PGY1 Surgical Progress Note for Dr. Abbott Patient seen and examined at bedside. Per nursing staff, no acute events overnight. Patient is currently NPO for EGD today. She denies any further episodes of nausea or vomiting, was tolerating pureed diet. Denies abdominal pain, fever, or chills. Denies hematochezia. Objective - Vital Signs/Intake and Output Vital Signs (last 24 hours): Temp Pulse Resp BP Pulse Ox 98.5 F 85 18 120/62 96 08/01/17 06:00 08/01/17 06:00 08/01/17 06:00 08/01/17 06:00 08/01/17 06:00 Intake and Output: 08/01/17 08/01/17 06:59 18:59 Intake Total 840 Output Total 1650 Balance -810 - Medications Medications: Current Medications Acetylcysteine (Acetylcysteine 20%) 3 ml IH BIDRESP [facility] Last Admin: 08/01/17 07:36 Dose: Not Given Albuterol/Ipratropium (Duoneb 3 Mg/0.5 Mg (3 Ml) Ud) 3 ml IH QIDRESP [facility] Last Admin: 08/01/17 07:37 Dose: 3 ml Alprazolam (Xanax) 0.5 mg PO QID [facility] PRN Reason: Protocol Last Admin: 07/31/17 21:22 Dose: 0.5 mg Aspirin (Ecotrin) 81 mg PO DAILY [facility] Last Admin: 07/28/17 09:21 Dose: 81 mg Atorvastatin Calcium (Lipitor) 20 mg PO DIN [facility] Last Admin: 07/31/17 17:45 Dose: 20 mg Docusate Sodium (Colace) 100 mg PO DAILY [facility] Last Admin: 07/31/17 11:18 Dose: 100 mg Sodium Chloride (Sodium Chloride 0.45%) 1,000 mls @ 50 mls/hr IV .Q20H [facility] Last Admin: 07/31/17 17:47 Dose: 50 mls/hr Insulin Detemir (Levemir) 10 unit SC BID [facility] Last Admin: 07/28/17 09:20 Dose: 10 unit Insulin Human Lispro (Humalog) 10 units SC AC [facility] Last Admin: 05/11/18 08:27 Dose: 10 units Insulin Human Regular (Humulin R Low) 0 units SC [facility] PRN Reason: Protocol Last Admin: 07/31/17 21:52 Dose: Not Given Metoclopramide HCl (Reglan) 5 mg IVP [facility] Last Admin: 07/31/17 21:22 Dose: 5 mg Nicotine (Nicoderm Cq) 1 patch TD DAILY [facility] Last Admin: 07/31/17 11:19 Dose: 1 patch Ondansetron HCl (Zofran Inj) 4 mg IVP Q6H PRN PRN Reason: Nausea/Vomiting Oxycodone HCl (Oxycodone Immediate Release Tab) 5 mg PO Q6H PRN PRN Reason: Pain, moderate (4-7) Last Admin: 08/01/17 06:07 Dose: 5 mg Pantoprazole Sodium (Protonix Inj) 40 mg IVP BID [facility] Last Admin: 07/31/17 17:46 Dose: 40 mg Tolterodine Tartrate (Detrol) 2 mg PO BID [facility] Last Admin: 07/31/17 17:45 Dose: 2 mg - Labs Labs: 08/01/17 06:00 08/01/17 06:00 PT 12.2 SECONDS (9.4-12.5) 07/26/17 17:00 INR 1.07 (0.93-1.08) 07/26/17 17:00 APTT 35.6 Seconds (25.1-36.5) 07/26/17 17:00 - Constitutional Appears: Non-toxic, No Acute Distress - Eye Exam Eye Exam: Normal appearance - Respiratory Exam Respiratory Exam: NORMAL BREATHING PATTERN - Cardiovascular Exam Cardiovascular Exam: +S1, +S2 - GI/Abdominal Exam GI & Abdominal Exam: Soft. absent: Tenderness - Psychiatric Exam Psychiatric exam: Normal Affect, Normal Mood Assessment and Plan - Assessment and Plan (Free Text) Assessment: 56 year old female with complaint of hematemesis. Plan: H&H dropped slightly since yesterday, though denies hematemesis or hematochezia ; continue to monitor Patient currently NPO for EGD; will await results and further GI recs Discussed with Dr. Scar Lemons, PGY1
[2017-08-01] MEDS: Insulin Reg-LOW-Coverage SC SCH ×3 (08:07→18:00)
--- NOTE | 2017-08-01 09:26 | PN ---
DATE: 07/28/2017 SUBJECTIVE: The patient complained of nausea, vomiting, coffee ground material. The patient was on the floor, sitting on the bed, right lateral positions with no respiratory distress. No pain. The patient has this coffee ground material for overnight and otherwise seems stable. No diarrhea and no abdominal pain at this time. The patient was seen and evaluated. PHYSICAL EXAMINATION: VITAL SIGNS: At this time, on 07/28/2017, the patient has temperature 98.4, heart rate 104, blood pressure 157/66, respirations 18, sat 96%. HEAD AND NECK: Normal. No JVD. No thyromegaly. CHEST: Clear, but mild wheeze, but much better. CARDIAC: First sound and second sound normal. ABDOMEN: There is mild epigastric tenderness. Bowel sounds intact. EXTREMITIES: Trace edema. NEUROLOGIC: Normal. LABORATORY DATA: Her laboratory study noted on 07/28/2017, white count , hemoglobin 11.1, hematocrit 34.8, platelet 382. Her chemistry noted for sodium 148, potassium 4.2, chloride 94, bicarb 38, BUN 58, creatinine 1.7 and blood sugar is 137, calcium 8.9, phosphorus 4 and magnesium is 2. The patient also earlier has PT, PTT, which was normal. The patient has also guaiac positive for hematemesis. IMPRESSION AND PLAN: 1. Acute gastrointestinal bleed. The patient was kept n.p.o., IV fluid. Would be getting blood transfusions. Gastroenterology evaluation, Dr. Coker. Monitor the patient hemodynamically. Keep her in telemetry floor and repeat lab in the morning. 2. Acute chronic obstructive pulmonary disease exacerbations. Regarding the pulmonary macario, the patient is stable. Continue steroids and we will be tapering steroids IV gradually to get the patient off. We will discuss with the net software engineer, but the patient seems stable at this time. She has bilevel positive airway pressure machine at the bedside. 3. Chronic back pain. Chronic diffuse multiple osteoarthritis. She is taking oxycodone p.r.n. 4. The patient does have breast cancer, stable. Will be followed by the oncologist. Noncompliant as outpatient. 5. The patient also has chronic anxiety. We are giving her Xanax. Seems stable. No distress. Mental macario, she seems stable. 6. Insulin-dependent diabetes. Continue Humalog and we will hold off if she is n.p.o. Levemir 10 units b.i.d. We will monitor her condition clinically and resume insulin when needed. Continue current medications. Current medications are Mucomyst, Colace, Detrol 2 mg b.i.d., DuoNeb, aspirin 81 hold, Humalog 10 units before meals hold, insulin coverage hold, Levemir 10 b.i.d. hold. Continue Lipitor 20 mg at bedtime, NicoDerm CQ patch for nicotine addition, oxycodone 5 mg every 6 hours, Protonix 40 IV b.i.d., Reglan 5 mg IV before meals and at bedtime as per Gastroenterology team. Continue IV fluid at 75 mL. We will monitor her fluid status. Continue Xanax 0.5 mg four times daily. Continue Zofran 4 mg IV every 6. Continue current therapy. We will monitor the patient clinically. The patient will need upper endoscopy. Sloan Sosa MD
[2017-08-01] MEDS: Sodium Chloride 0.45% 1,000 ML IV SCH (10:04)
--- NOTE | 2017-08-01 13:38 | PN ---
DATE: 07/31/2017 SUBJECTIVE: The patient on the bedside comfortable. No more vomiting blood. No hematemesis. The patient is going for an endoscopy in the morning. She agree. She also complained earlier as per GI consultation followup, . The patient has constipation, did not move her bowels for few days. PHYSICAL EXAMINATION: GENERAL: The patient in the bedside, no respiratory distress. No abdominal pain. She is stable. She is alert, awake, oriented x3. VITAL SIGNS: Temperature 98.6, heart rate 88, blood pressure 126/61, respiration 19, sat 95% on 2 L nasal canula. HEAD AND NECK: Normal. No JVD. No thyromegaly. CHEST: Clear bilaterally. No wheezing. CARDIAC: First sound and second sound are normal. ABDOMEN: Soft, mild tenderness in epigastric. Bowel sounds intact. EXTREMITIES: No edema. NEUROLOGIC: Normal. LABORATORY DATA: CBC shows white count is 12.1, hemoglobin 8.6, hematocrit 29.6, platelets 237. Noticed hemoglobin drop; however, the patient is getting IV fluids. Sodium 144, potassium 4.6, chloride 99, bicarb 34, BUN 37, creatinine 1.8. Blood sugar 134, calcium is 7.5 and phosphorus is 5.1, ferritin 25.2. Liver function test is normal. The patient had a CT abdomen and pelvis without IV contrast, which noted no bowel obstructions. She has gallstones. She has mild hydronephrosis. There is lung fibrosis of right upper lobe and right middle lobe, otherwise stable. IMPRESSION: 1. Acute chronic obstructive pulmonary disease exacerbation. The patient seems doing very well. No wheezing. Seen by vessel specialist, the steroids tapered off quickly. Continue doing that. 2. Acute gastrointestinal bleed and hematemesis. The patient has guaiac-positive. She also had IV fluids for compensation of her vomiting and dehydration and prerenal azotemia. Continue to monitor her H and H. She will be going for endoscopy in the morning. Continue IV fluids 50 mL per hour. The patient may require blood transfusion. We will hold off on Lovenox and aspirin. The patient seems moving. A-hose is on bilaterally. A-hose has been ordered. The patient moving to the bathroom. 3. Chronic back pain. Continue oxycodone. 4. Chronic anxiety. 5. Insulin-dependant diabetes. The patient is not eating. She is n.p.o. after midnight. Continue to monitor her sugar and currently insulin is on hold. PLAN: Continue current therapy. Follow up with GI team for endoscopy tomorrow to rule out any underlying ulcer in the morning and any gastric or duodenal lesions. Continue IV Protonix, continue 40 b.i.d. Continue Reglan and Zofran. Sloan Sosa MD
--- NOTE | 2017-08-01 13:39 | PN ---
DATE: 08/01/2017 REASON FOR THE CONSULTATION AND FOLLOWUP: Shortness of breath, hypertension, diabetes, respiratory tract infection, rule out GI bleed, cardiac evaluation. SUBJECTIVE: The patient denies any chest pain, shortness of breath, or any palpitation. OBJECTIVE: GENERAL: Not in any apparent distress, lying flat on the bed. She is n.p.o. for colonoscopy today. Had endoscopy done yesterday. VITAL SIGNS: Temperature afebrile, heart rate 80, blood pressure 130/62. HEENT: PERRLA. Extraocular muscles intact. NECK: Supple. No carotid bruit. No thyromegaly. CHEST: Clear to auscultation. HEART: S1 and S2, regular. ABDOMEN: Soft. EXTREMITIES: Clubbing and cyanosis negative. LABORATORY DATA: Blood workup as follows; WBC 10.6, hemoglobin 7.6, hematocrit 25.2, platelet count 246. Chemistry shows sodium 141, potassium 4.9, chloride 100, carbon dioxide 34, anion gap of 12. BUN 14, creatinine 1.9. IMPRESSION: Chronic renal insufficiency with baseline creatinine of 1.5, stage III to IV chronic kidney disease, gastrointestinal bleed, dropping hemoglobin and hematocrit, anemia, diabetes, hypertension, hyperlipidemia, active tobacco abuse, exacerbation of chronic obstructive pulmonary disease, respiratory tract infection, hyperlipidemia, history of cancer of the breast in the past, chronic pain, anxiety disorder, depression, history of renal stone and hydronephrosis in the past. RECOMMENDATIONS: CVS status is stable. Continue gentle hydration. Monitor renal function closely. Continue antibiotic. GI workup in progress. Monitor H and H. The patient is dropping her H and H. If it goes below 7, consider packed RBC transfusion. We will follow with you. Repeat the blood workup in the morning. The patient had echocardiography done on 07/28/2017, that revealed ejection fraction 60% to 65%. No aortic regurgitation. No aortic valve stenosis. Trace mitral regurgitation. Trace tricuspid regurgitation. RV systolic pressure 20. Essentially normal echo. We will follow with you. We will supplement magnesium. Thank you Dr. Sosa, for providing us the opportunity in taking care of the patient, Yazmin Granado. Lisa Hernandez MD
[2017-08-01] MEDS: Magnesium Oxide 400 mg Tab UD PO SCH (17:53)
--- NOTE | 2017-08-01 19:43 | PN ---
DATE: 08/01/2017 SUBJECTIVE: The patient is currently seen lying comfortable, supine in bed. She appears to be in no acute distress. IV fluids are infusing. MEDICATIONS: Medication list reviewed. The patient is on acetylcysteine inhalation therapy, Colace, Detrol, DuoNeb, regular insulin, Lipitor, mag oxide, NicoDerm CQ, oxycodone p.r.n., Protonix, Reglan, half-normal saline 50 mL an hour, Xanax, and Zofran p.r.n. OBJECTIVE: INTAKE/OUTPUT. Intake 840, output 1650. VITAL SIGNS: Blood pressure 130/62, temperature 98.5, respiratory rate is 18 with a pulse of 80. HEENT: Shows her to be normocephalic, atraumatic. Conjunctivae are pale. Sclerae are nonicteric. NECK: Supple. No neck vein distention. CHEST: Scattered rhonchi. No wheezing. No rales. CARDIOVASCULAR: Shows a regular rate and rhythm with no audible murmurs, rubs or gallops. ABDOMEN: Soft. Bowel sounds normal. No rebound. No guarding. No masses. EXTREMITIES: Show trace nonpitting lower extremity edema. IMAGING STUDIES: Chest, abdominal and pelvic CT scan done on admission showed mild hydronephrosis which is unchanged, gallstones, chronic right apical and right middle lobe fibrosis, no acute infiltrates. Hiatal hernia with a dilated esophagus. LABORATORY DATA: CBC: White blood cell count down to 10.5, hemoglobin 7.6 with a platelet count 246,000. Chemistries showed normal electrolytes with a CO2 of 34. BUN is up to 41, on admission it was 29. Creatinine is up from 1.5 to 1.9. Glucose is 247. Calcium is 7.2, correcting for an albumin of 2.8, calcium is 8.2. Phosphorus level is 4.8 with magnesium level of 1.7. Iron saturations are extremely low, iron level was less than 10. Liver enzymes are normal. Urine showed white blood cells and red blood cells, 2+ protein. Microbiology: Urine cultures show multiple species, likely a contaminated specimen. Blood cultures are negative. ASSESSMENT: 1. Acute renal failure superimposed on chronic kidney disease stage III. This is likely in the setting of gastrointestinal bleeding. The patient will continue intravenous fluid hydration. Of note, the patient's iron saturations are extremely low and the patient would benefit from either transfusions and/or IV Venofer. 2. History of chronic obstructive pulmonary disease. The patient is apparently a current cigarette smoker. She will continue one inhalation therapy. 3. History of insulin-dependent diabetes mellitus. Glucose control is acceptable. The patient will continue on regular insulin, long-acting insulin is on hold. 4. History of hypertension. Blood pressure control is excellent on present medication. 5. Past history of breast cancer. 6. History of chronic bilateral mild hydronephrosis unchanged from past. 7. History of a right lung fibrosis in the right apical and right middle lobe area. PLAN: 1. We will start the patient on IV Venofer and I will leave the decision up to Dr. Sosa regarding transfusions. 2. Continue cautious IV fluid hydration. 3. Continue respiratory treatments for COPD. 4. GI followup. 5. Continue to monitor labs on a daily basis and follow accurate Is and Os. Jared Beatty MD
[2017-08-01] MEDS ORDERED: DiphenhydrAMINE 50 mg/ml Inj IVP STA (21:35)
--- NOTE | 2017-08-01 22:27 | CP.PCM.PN ---
Subjective - Date & Time of Evaluation Date of Evaluation: 08/01/17 Time of Evaluation: 21:30 - Subjective Subjective: Patient seen at the request of her RN After she noted a temp of 100.1 about 15 mins after the second unit of blood was started. She had finished receiving one unit of packed RBCs earlier today;was not pre medicated. Pt denies any c/o itching,rashes,SOB,chestpain ,nausea,vomiting or any other symptoms. She was admitted for COPD,had coffee ground emesis,was noted to be anemic,hence blood transfusion was ordered. Her VS are stable PMH:COPD,DM,HLD,HTN,Breast Ca,Anemia,Arthritis,Anxiety. Objective - Vital Signs/Intake and Output Vital Signs (last 24 hours): Temp Pulse Resp BP Pulse Ox 100.1 F H 101 H 18 131/52 L 100 08/01/17 21:50 08/01/17 21:27 08/01/17 21:27 08/01/17 21:27 08/01/17 16:49 Intake and Output: 08/01/17 08/02/17 18:59 06:59 Intake Total 0 920 Balance 0 920 - Medications Medications: Current Medications Acetylcysteine (Acetylcysteine 20%) 3 ml IH BIDRESP [facility] Last Admin: 08/01/17 07:36 Dose: Not Given Albuterol/Ipratropium (Duoneb 3 Mg/0.5 Mg (3 Ml) Ud) 3 ml IH QIDRESP [facility] Last Admin: 08/01/17 19:36 Dose: 3 ml Alprazolam (Xanax) 0.5 mg PO QID [facility] PRN Reason: Protocol Last Admin: 08/01/17 21:51 Dose: 0.5 mg Aspirin (Ecotrin) 81 mg PO DAILY [facility] Last Admin: 07/28/17 09:21 Dose: 81 mg Atorvastatin Calcium (Lipitor) 20 mg PO DIN [facility] Last Admin: 08/01/17 17:52 Dose: 20 mg Calcium Carbonate (Oscal) 500 mg PO TID [facility] Last Admin: 08/01/17 17:52 Dose: 500 mg Docusate Sodium (Colace) 100 mg PO DAILY [facility] Last Admin: 08/01/17 10:04 Dose: 100 mg Sodium Chloride (Sodium Chloride 0.45%) 1,000 mls @ 50 mls/hr IV .Q20H [facility] Last Admin: 08/01/17 10:04 Dose: 50 mls/hr Iron Sucrose 200 mg/ Sodium (Chloride) 110 mls @ 110 mls/hr IVPB QOTHERDAY [facility] Stop: 08/11/17 10:59 Insulin Detemir (Levemir) 10 unit SC BID [facility] Last Admin: 07/28/17 09:20 Dose: 10 unit Insulin Human Lispro (Humalog) 10 units SC AC [facility] Last Admin: 07/28/17 08:27 Dose: 10 units Insulin Human Regular (Humulin R Low) 0 units SC [facility] PRN Reason: Protocol Last Admin: 08/01/17 18:00 Dose: Not Given Magnesium Oxide (Mag-Ox) 400 mg PO BID [facility] Stop: 08/02/17 23:59 Last Admin: 08/01/17 17:53 Dose: 400 mg Metoclopramide HCl (Reglan) 5 mg IVP [facility] Last Admin: 08/01/17 21:51 Dose: 5 mg Nicotine (Nicoderm Cq) 1 patch TD DAILY [facility] Last Admin: 08/01/17 10:04 Dose: 1 patch Ondansetron HCl (Zofran Inj) 4 mg IVP Q6H PRN PRN Reason: Nausea/Vomiting Oxycodone HCl (Oxycodone Immediate Release Tab) 5 mg PO Q6H PRN PRN Reason: Pain, moderate (4-7) Last Admin: 08/01/17 20:36 Dose: 5 mg Pantoprazole Sodium (Protonix Inj) 40 mg IVP BID [facility] Last Admin: 08/01/17 17:52 Dose: 40 mg Tolterodine Tartrate (Detrol) 2 mg PO BID [facility] Last Admin: 08/01/17 17:53 Dose: 2 mg - Labs Labs: 08/01/17 06:00 08/01/17 06:00 PT 12.2 SECONDS (9.4-12.5) 07/26/17 17:00 INR 1.07 (0.93-1.08) 07/26/17 17:00 APTT 35.6 Seconds (25.1-36.5) 07/26/17 17:00 - Constitutional Appears: No Acute Distress - Head Exam Head Exam: ATRAUMATIC, NORMAL INSPECTION, NORMOCEPHALIC - Eye Exam Eye Exam: PERRL - ENT Exam ENT Exam: Mucous Membranes Moist - Neck Exam Neck Exam: Normal Inspection - Respiratory Exam Respiratory Exam: Clear to Ausculation Bilateral, NORMAL BREATHING PATTERN. absent: Wheezes, Respiratory Distress - Cardiovascular Exam Cardiovascular Exam: Tachycardia ( ), REGULAR RHYTHM - GI/Abdominal Exam GI & Abdominal Exam: Soft, Normal Bowel Sounds - Extremities Exam Extremities Exam: absent: Calf Tenderness, Pedal Edema - Neurological Exam Neurological Exam: Oriented x3 - Psychiatric Exam Psychiatric exam: Anxious - Skin Skin Exam: Dry, Warm Assessment and Plan - Assessment and Plan (Free Text) Assessment: Blood transfusion reaction. Plan: Blood transfusion was held.Discussed with Dr Sosa and at his request with Dr Zelaya. She agreed with holding off the blood transfusion and medicating the pt with Tylenol and Benadryl. As per advice,blood for typing and crossmatch was ordered and pt is to get 1 unit of of new PRBCs when ready.
[2017-08-01 23:51] LABS: URINE BILIRUBIN NEGATIVE (NEGATIVE); URINE BLOOD MODERATE (NEGATIVE); URINE GLUCOSE (UA) 100 mg/dL (NEGATIVE); URINE LEUKOCYTE ESTERASE MODERATE Leu/uL (NEGATIVE); URINE PROTEIN TRACE mg/dL (<30 mg/dL); URINE UROBILINOGEN 0.2 E.U./dL (<1 E.U./dL)
[2017-08-01 23:55] LABS: URINE APPEARANCE SL CLOUDY (CLEAR); URINE COLOR YELLOW (YELLOW)
[2017-08-02 00:16] LABS: URINE BACTERIA FEW (NEG); URINE WBC 20 - 25 /hpf (0-6)
--- NOTE | 2017-08-02 01:22 | PN ---
DATE: 08/01/2017 PULMONARY PROGRESS NOTE REFERRING PHYSICIAN: Sloan Sosa MD. SUBJECTIVE: She is sitting on side of the bed. Night was unremarkable. No headache. No rhinitis. Mild cough. No nausea. No vomiting. No diarrhea. Hungry, wants to eat. She is n.p.o. for procedure. OBJECTIVE: GENERAL: In no acute distress. VITAL SIGNS: Temperature is 98, heart rate is , respiratory rate is 18, blood pressure 151/61. HEENT: Moist mucous membrane. Crowded airway. Mallampati score is IV. NECK: Supple. No JVD. LUNGS: Have scattered rhonchi. HEART: S1 and S2. ABDOMEN: Soft, nontender. No organomegaly. EXTREMITIES: There is no edema. NEUROLOGICAL: Awake and alert, follows simple command. MEDICATIONS: She is on Mucomyst inhaled twice a day, Benadryl 25 mg was given late afternoon, Colace 100 mg twice a day, Detrol 2 mg twice a day, DuoNeb four times a day, Ecotrin 81 mg daily, insulin coverage, receiving IV iron, also on Levemir 10 units subcu twice a day, Lipitor 20 mg daily, magnesium oxide 400 mg twice a day, Nicoderm patch daily, calcium carbonate 500 mg three times a day, oxycodone immediate release 5 mg every 6 hours p.r.n., Protonix 40 mg IV twice a day, Reglan 5 mg before meals and at bedtime, IV fluid half-normal saline 50 mL/hour, Tylenol p.r.n., Xanax 0.5 mg four times daily, Zofran p.r.n. basis. LABORATORY DATA: Shows hemoglobin 7.6, hematocrit 25.2, WBC 10.5, platelet count is 246. Sodium 141, potassium 4.9, chloride 100, bicarbonate 34, BUN , creatinine 1.9, glucose 247, calcium 7.2, phosphorus 4.8, magnesium 1.7, iron less than 10, TIBC 218. AST 12, ALT 16, alk phos is 55. Albumin is 2.8. Microbiology: Blood culture, urine culture, there is no growth. IMPRESSION AND PLAN: Chronic obstructive lung disease; atelectasis; history of breast cancer, been on chemotherapy; recurrent urinary tract infection; anxiety disorder/depression; diabetes; renal stone; hydronephrosis; gastroesophageal reflux disease; dilated esophagus; has a coffee-ground vomiting a few days ago; iron-deficiency anemia. Pulmonary point of view, doing okay. Continue bronchodilator. Keep head at 45 degrees. Sleep apnea precaution. Closely follow up hemoglobin and hematocrit. May need transfusion. GI followup. Thank you and we will follow up with you. Lisa Rucker MD
[2017-08-02] MEDS: oxyCODONE 5 mg Immediate Release Tab PO PRN ×4 (02:08→21:45)
[2017-08-02] MEDS: Insulin Reg-LOW-Coverage SC SCH ×4 (06:16→17:32)
[2017-08-02 06:37] LABS: BASO # 0.01 K/mm3 (0.0-2.0); BASO % 0.1 % (0.0-3.0); EOS # 0.3 (0.0-0.7); GRAN # 7.15 (1.4-6.5); GRAN % 69.9 % (50.0-68.0); LYMPH # 2.1 (1.2-3.4); LYMPH % 20.3 % (22.0-35.0); MEAN CELL VOLUME 91.4 fl (80.0-105.0); MEAN CORPUSCULAR HEMOGLOBIN 27.8 pg (25.0-35.0); MEAN CORPUSCULAR HGB CONC 30.5 g/dl (31.0-37.0); MEAN PLATELET VOLUME 10.4 fl (7.0-11.0); MONO # 0.7 (0.1-0.6); MONO % 6.7 % (1.0-6.0); RBC 3.7 10^6/uL (3.5-6.1); RED CELL DISTRIBUTION WIDTH 15.9 % (11.5-14.5); WHITE BLOOD COUNT 10.2 10^3/ul (4.5-11.0)
[2017-08-02 06:53] LABS: ALB/GLOB RATIO 1.3 (1.1-1.8); ALBUMIN 3.3 g/dL (3.0-4.8); CALCIUM 7.7 mg/dL (8.4-10.5)
[2017-08-02 07:17] LABS: HEMOGLOBIN 10.3 g/dL (12.0-16.0)
[2017-08-02] MEDS: Albuterol-Ipratrop 3 mg / 0.5 (3 ml) UD IH SCH ×4 (07:50→19:47)
[2017-08-02] MEDS: Acetylcysteine 20% Inhal Soln (4ml) IH SCH ×2 (07:51→19:48)
[2017-08-02] MEDS: Magnesium Oxide 400 mg Tab UD PO SCH ×2 (09:15→17:25)
--- NOTE | 2017-08-02 11:21 | PN ---
DATE: 08/02/2017 SUBJECTIVE: The patient is in the bed, lying comfortably, getting IV, getting blood transfusion 2 units. She seems comfortable. She has slight fever 99.1. No other problems. She got Tylenol and Benadryl. She seems stable at this time. No more vomiting blood. Bowel movements small, but no blood, no melena. The vital signs stable. PHYSICAL EXAMINATION VITAL SIGNS: On 08/01/2017, temperature 99.3, heart rate 95, blood pressure 115/40, respirations 20. HEAD AND NECK: Normal. No JVD. No thyromegaly. CHEST: Clear. Good air entry. CARDIAC: First sound and second sound normal. ABDOMEN: Soft, nontender. EXTREMITIES: No edema. NEUROLOGIC: Normal. IMPRESSION AND PLAN: 1. Acute chronic obstructive pulmonary disease exacerbations, improved. She is off IV steroids. 2. Acute gastrointestinal bleeding. IV Protonix. Gastroenterology consultations seen the patient's EGD with plan by Dr. Coker's team. 3. History of breast cancer. Dr. Zelaya will see the patient for breast cancer plus anemia. 4. The patient had chronic back pain, chronic anxiety. Continue oxycodone and Xanax. 5. Tobacco addiction. Continue NicoDerm patch. 6. Insulin-dependent diabetes. Continue insulin coverage. She is getting 10 units before meals. We will hold it for endoscopy and we will continue current treatment. The patient is also getting iron IV for iron-deficiency anemia. Continue current therapy. Follow up clinically with the other consultants. Sloan Sosa MD
--- NOTE | 2017-08-02 11:23 | CP.PCM.PN ---
Subjective - Date & Time of Evaluation Date of Evaluation: 08/02/17 Time of Evaluation: 07:30 - Subjective Subjective: Surgical progress note for Dr. Abbott Patient seen and examined at bedside. She did not go for EGD yesterday because of anemia and a delay in the blood transfusion, which was ordered in the morning. She is scheduled to go for EGD in the afternoon. She reports some mild abdominal discomfort, but denies any further episodes of nausea, vomiting, hematemesis, hemoptysis, hematochezia, or melena. Last BM 2 days ago, and admits to regular flatus. Objective - Vital Signs/Intake and Output Vital Signs (last 24 hours): Temp Pulse Resp BP Pulse Ox 99.5 F 49 L 14 131/61 98 08/02/17 08:32 08/02/17 08:32 08/02/17 08:32 08/02/17 08:32 08/02/17 08:32 Intake and Output: 08/02/17 08/02/17 06:59 18:59 Intake Total 1245 Balance 1245 - Medications Medications: Current Medications Acetylcysteine (Acetylcysteine 20%) 3 ml IH BIDRESP [facility] Last Admin: 08/02/17 07:51 Dose: 3 ml Albuterol/Ipratropium (Duoneb 3 Mg/0.5 Mg (3 Ml) Ud) 3 ml IH QIDRESP [facility] Last Admin: 08/02/17 07:50 Dose: 3 ml Alprazolam (Xanax) 0.5 mg PO QID [facility] PRN Reason: Protocol Last Admin: 08/02/17 09:14 Dose: 0.5 mg Aspirin (Ecotrin) 81 mg PO DAILY [facility] Last Admin: 07/28/17 09:21 Dose: 81 mg Atorvastatin Calcium (Lipitor) 20 mg PO DIN [facility] Last Admin: 08/01/17 17:52 Dose: 20 mg Calcium Carbonate (Oscal) 500 mg PO TID [facility] Last Admin: 08/02/17 09:18 Dose: 500 mg Docusate Sodium (Colace) 100 mg PO DAILY [facility] Last Admin: 08/02/17 09:17 Dose: 100 mg Sodium Chloride (Sodium Chloride 0.45%) 1,000 mls @ 50 mls/hr IV .Q20H [facility] Last Admin: 08/01/17 10:04 Dose: 50 mls/hr Iron Sucrose 200 mg/ Sodium (Chloride) 110 mls @ 110 mls/hr IVPB QOTHERDAY [facility] Stop: 08/11/17 10:59 Insulin Detemir (Levemir) 10 unit SC BID [facility] Last Admin: 07/28/17 09:20 Dose: 10 unit Insulin Human Lispro (Humalog) 10 units SC AC [facility] Last Admin: 07/28/17 08:27 Dose: 10 units Insulin Human Regular (Humulin R Low) 0 units SC [facility] PRN Reason: Protocol Last Admin: 08/02/17 08:29 Dose: Not Given Magnesium Oxide (Mag-Ox) 400 mg PO BID [facility] Stop: 08/02/17 23:59 Last Admin: 08/02/17 09:15 Dose: 400 mg Metoclopramide HCl (Reglan) 5 mg IVP [facility] Last Admin: 08/02/17 09:18 Dose: 5 mg Nicotine (Nicoderm Cq) 1 patch TD DAILY [facility] Last Admin: 08/02/17 09:17 Dose: 1 patch Ondansetron HCl (Zofran Inj) 4 mg IVP Q6H PRN PRN Reason: Nausea/Vomiting Oxycodone HCl (Oxycodone Immediate Release Tab) 5 mg PO Q6H PRN PRN Reason: Pain, moderate (4-7) Last Admin: 08/02/17 09:16 Dose: 5 mg Pantoprazole Sodium (Protonix Inj) 40 mg IVP BID [facility] Last Admin: 08/02/17 09:18 Dose: 40 mg Tolterodine Tartrate (Detrol) 2 mg PO BID [facility] Last Admin: 08/02/17 09:15 Dose: 2 mg - Labs Labs: 08/02/17 06:28 08/02/17 06:28 PT 12.2 SECONDS (9.4-12.5) 07/26/17 17:00 INR 1.07 (0.93-1.08) 07/26/17 17:00 APTT 35.6 Seconds (25.1-36.5) 07/26/17 17:00 - Constitutional Appears: Non-toxic, No Acute Distress, Chronically Ill - Head Exam Head Exam: NORMAL INSPECTION - Eye Exam Eye Exam: Normal appearance - ENT Exam ENT Exam: Mucous Membranes Moist - GI/Abdominal Exam GI & Abdominal Exam: Soft. absent: Firm, Guarding, Rigid, Tenderness - Neurological Exam Neurological Exam: Alert, Awake - Skin Skin Exam: Dry, Intact, Normal Color Assessment and Plan - Assessment and Plan (Free Text) Assessment: 56 year old female with complaint of hematemesis. Plan: H&H improved after blood transfusion; continue to monitor Currently denies hematemesis or hematochezia; pending EGD today; will await results and further GI recs No surgical interventions warranted at this time Discussed with Dr. Scar Lemons, PGY1
[2017-08-02] MEDS: Sodium Chloride 0.45% 1,000 ML IV SCH (12:06)
[2017-08-02] MEDS ORDERED: Propofol 10 mg/ml Inj (20 ML) ONE (13:16)
[2017-08-02] MEDS ORDERED: Sodium Chloride 0.9% 1,000 ML IV SCH (14:00)
--- NOTE | 2017-08-02 14:12 | PN ---
DATE: 08/02/2017 PULMONARY PROGRESS NOTE REFERRING PHYSICIAN: Sloan Sosa MD SUBJECTIVE: She is lying in the stretcher, going for endoscopy. Night was unremarkable, n.p.o., mild cough, not much sputum production. No vomiting, no hematuria, no diarrhea. No leg pain or leg swelling. OBJECTIVE: GENERAL: In no acute distress. VITAL SIGNS: Temperature is 98, heart rate is 97, respiratory rate is 16, blood pressure 131/62, pulse ox 95% on 2 L nasal canula. HEENT: Moist mucous membranes, crowded airway. NECK: Supple. No JVD. LUNGS: Fair airflow with rhonchi. HEART: S1 and S2. ABDOMEN: Soft, nontender. No organomegaly. EXTREMITIES: There is no edema. NEUROLOGIC: Awake and alert, follows simple command. MEDICATIONS: She is on Mucomyst 20% 3 mL inhaled twice a day, Colace 100 mg daily, Detrol 2 mg twice a day, DuoNeb four times daily [id number], Ecotrin 81 mg daily, insulin coverage, iron sucrose 200 mg IV daily, Levemir 10 units subcu twice a day, Lipitor 20 mg daily, mag oxide 400 mg twice a day, Nicoderm patch daily, Os-Lalito 500 mg three times a day, OxyContin immediate release 5 mg every 6 hours p.r.n., Protonix 40 mg daily, IV fluid half-normal saline 50 mL/hour, Xanax 0.5 mg four times daily, Zofran p.r.n. basis. LABORATORY DATA: Reviewed. No new lab is available since yesterday. Microbiology, blood culture, urine culture, there is no growth. IMPRESSION: Chronic obstructive lung disease, may have sleep apnea syndrome, gastrointestinal bleed, history of breast cancer and has been on chemotherapy, anxiety/depression disorder, diabetes, renal stone, hydronephrosis, gastroesophageal reflux disease, dilated esophagus, status post gastrointestinal bleed, coffee-ground vomiting. Received iron. Pulmonary point view, doing okay. Continue bronchodilator. She is off steroids because of GI bleed. Aspiration precaution if sedated. Need close cardiopulmonary monitoring. SCD to lower extremities. Thank you and we will follow with you. Lisa Rucker MD [facility] # [id number]
--- NOTE | 2017-08-02 14:29 | PN ---
DATE: 08/02/2017 REASON FOR CONSULTATION AND FOLLOWUP: Shortness of breath, hypertension, diabetes, respiratory tract infection, rule out GI bleed, cardiac evaluation. SUBJECTIVE: The patient denies any chest pain, shortness of breath or any palpitations. PHYSICAL EXAMINATION: GENERAL: Not in any apparent distress, lying flat on the bed. VITAL SIGNS: Temperature afebrile, heart rate 49, blood pressure 131/61. HEENT: PERRLA, intact. NECK: Supple. No carotid bruit or thyromegaly. CHEST: Clear to auscultation. HEART: S1 and S2 regular. ABDOMEN: Soft. EXTREMITIES: Clubbing and cyanosis negative. LABORATORY DATA: Blood workup as follows: WBC 10, hemoglobin 10, hematocrit 33.8 and platelet count 220. Chemistry shows sodium 145, potassium 5, chloride 104, carbon dioxide 32, anion gap of 14, BUN 34 and creatinine 1.8. IMPRESSION: Chronic renal insufficiency, baseline creatinine around 1.5; acute kidney injury; anemia; tobacco abuse; gastrointestinal bleed; dropping H and H; stage III to IV chronic kidney disease; hypertension; hyperlipidemia; active tobacco abuse; exacerbation of chronic obstructive pulmonary disease; respiratory tract infection; hyperlipidemia; history of breast cancer; chronic pain; depression; history of renal stone and hydronephrosis in the past. The patient had echocardiography done that revealed ejection fraction of 65%, no aortic stenosis, no aortic regurgitation, trace mitral regurgitation, trace tricuspid regurgitation, right ventricular systolic pressure of 20. RECOMMENDATION: CVS status is stable. Continue GI workup. Monitor H and H. Treat aggressively for COPD. Emphasis made on compliance with the medication and a complete cessation of smoking. Essentially, the patient has a normal echo. Supplement electrolytes as needed. Okay to be discharged from Cardiology point of view. Monitor electrolytes. Monitor potassium. We will follow with you. Avoid nephrotoxic medication. Continue baby aspirin. Continue atorvastatin. Lisa Hernandez MD
[2017-08-02 18:09] VITALS: O2SAT 95
--- NOTE | 2017-08-02 21:03 | PN ---
DATE: 08/02/2017 SUBJECTIVE: The patient is seen sitting in bed. She is awake. She is alert. She reports she had an endoscopy. She reports she has a "big hole in her stomach." PHYSICAL EXAMINATION: GENERAL: Obese middle-aged lady sitting in bed. VITAL SIGNS: Blood pressure 136/52, heart rate 92, respiratory rate 17, temperature 98.4. HEENT: Normocephalic, atraumatic, positive pallor. NECK: Supple, no JVD. LUNGS: Bilateral equal air entry, bilateral equal expansion, no rales. CARDIAC: S1 and S2, regular rate and rhythm, no murmur, no rub. ABDOMEN: Obese, distended, soft, bowel sounds present. EXTREMITIES: No lower extremity edema. INTAKE AND OUTPUT: Not charted. LABORATORY DATA: WBC 10, hemoglobin 10, hematocrit 34, platelets 220. Sodium 145, potassium 5.1, chloride 104, CO2 of 32, BUN 34, creatinine 1.8, glucose 146, calcium 7.7, phosphorus 5.2, magnesium 1.7, albumin 3.3, corrected calcium is 8.1. grade D esophagitis, chronic gastritis, duodenitis. CURRENT MEDICATIONS: Mucomyst, Colace, Detrol, DuoNeb, Ecotrin, Venofer, insulin, Lipitor, mag oxide, Os-Lalito, Protonix, Reglan, sodium chloride. ASSESSMENT: 1. Mild acute kidney injury superimposed on chronic kidney disease stage III. 2. Chronic obstructive pulmonary disease. 3. Non-insulin dependent diabetes mellitus. 4. Gastrointestinal bleed/anemia. 5. Hypertension. 6. Suspected secondary hyperparathyroidism. 7. History of chronic bilateral mild hydronephrosis. PLAN: 1. Agree with Venofer. 2. Continue respiratory treatments. 3. Continue high-dose PPI. 4. Check intact PTH levels. 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 Lula Hurd MD
[2017-08-03] MEDS: Insulin Reg-LOW-Coverage SC SCH ×3 (06:03→13:20)
[2017-08-03] MEDS: Acetylcysteine 20% Inhal Soln (4ml) IH SCH (07:25)
[2017-08-03] MEDS: Albuterol-Ipratrop 3 mg / 0.5 (3 ml) UD IH SCH ×3 (07:25→15:16)
--- NOTE | 2017-08-03 07:34 | CP.PCM.PN ---
Subjective - Date & Time of Evaluation Date of Evaluation: 08/03/17 Time of Evaluation: 06:15 - Subjective Subjective: Awake, sitting side of bed, denies shortness of breath, denies chest pain Reason for consultation and follow up: Cardiac evaluation, shortness of breath, hypertension, COPD, diabetes mellitus, depression Seen and examined by me and Dr. Hernandez Objective - Vital Signs/Intake and Output Vital Signs (last 24 hours): Temp Pulse Resp BP Pulse Ox 99.2 F 94 H 18 118/70 95 08/02/17 18:08 08/02/17 18:08 08/02/17 18:08 08/02/17 18:08 08/02/17 18:08 Intake and Output: 08/03/17 08/03/17 06:59 18:59 Intake Total 1200 Output Total 500 Balance 700 - Medications Medications: Current Medications Acetylcysteine (Acetylcysteine 20%) 3 ml IH BIDRESP [facility] Last Admin: 08/03/17 07:25 Dose: 2 ml Albuterol/Ipratropium (Duoneb 3 Mg/0.5 Mg (3 Ml) Ud) 3 ml IH QIDRESP [facility] Last Admin: 08/03/17 07:25 Dose: 3 ml Alprazolam (Xanax) 0.5 mg PO QID [facility] PRN Reason: Protocol Last Admin: 08/02/17 21:45 Dose: 0.5 mg Aspirin (Ecotrin) 81 mg PO DAILY [facility] Last Admin: 07/28/17 09:21 Dose: 81 mg Atorvastatin Calcium (Lipitor) 20 mg PO DIN [facility] Last Admin: 08/02/17 17:26 Dose: 20 mg Calcium Carbonate (Oscal) 500 mg PO TID [facility] Last Admin: 08/02/17 17:25 Dose: 500 mg Docusate Sodium (Colace) 100 mg PO DAILY [facility] Last Admin: 08/02/17 09:17 Dose: 100 mg Iron Sucrose 200 mg/ Sodium (Chloride) 110 mls @ 110 mls/hr IVPB QOTHERDAY [facility] Stop: 08/11/17 10:59 Sodium Chloride (Sodium Chloride 0.9%) 1,000 mls @ 100 mls/hr IV .Q10H [facility] Last Admin: 08/03/17 06:03 Dose: Not Given Insulin Detemir (Levemir) 10 unit SC BID [facility] Last Admin: 07/28/17 09:20 Dose: 10 unit Insulin Human Lispro (Humalog) 10 units SC [facility] Last Admin: 07/28/17 08:27 Dose: 10 units Insulin Human Regular (Humulin R Low) 0 units SC [facility] PRN Reason: Protocol Last Admin: 08/03/17 06:03 Dose: Not Given Metoclopramide HCl (Reglan) 5 mg IVP [facility] Last Admin: 08/02/17 21:46 Dose: 5 mg Nicotine (Nicoderm Cq) 1 patch TD DAILY [facility] Last Admin: 08/02/17 09:17 Dose: 1 patch Ondansetron HCl (Zofran Inj) 4 mg IVP Q6H PRN PRN Reason: Nausea/Vomiting Oxycodone HCl (Oxycodone Immediate Release Tab) 5 mg PO Q6H PRN PRN Reason: Pain, moderate (4-7) Last Admin: 08/02/17 21:45 Dose: 5 mg Pantoprazole Sodium (Protonix Inj) 40 mg IVP BID [facility] Last Admin: 08/02/17 17:27 Dose: 40 mg Tolterodine Tartrate (Detrol) 2 mg PO BID [facility] Last Admin: 08/02/17 17:26 Dose: 2 mg - Labs Labs: 08/02/17 06:28 08/02/17 06:28 PT 12.2 SECONDS (9.4-12.5) 07/26/17 17:00 INR 1.07 (0.93-1.08) 07/26/17 17:00 APTT 35.6 Seconds (25.1-36.5) 07/26/17 17:00 - Constitutional Appears: No Acute Distress - Eye Exam Eye Exam: Normal appearance - ENT Exam ENT Exam: Mucous Membranes Moist - Neck Exam Neck Exam: Normal Inspection - Respiratory Exam Respiratory Exam: Decreased Breath Sounds, Rhonchi, NORMAL BREATHING PATTERN Additional comments: NC 2-3 l/min, on home oxygen - Cardiovascular Exam Cardiovascular Exam: +S1, +S2 Additional comments: faiza cath intact - GI/Abdominal Exam GI & Abdominal Exam: Soft, Normal Bowel Sounds - Extremities Exam Extremities Exam: Normal Capillary Refill - Neurological Exam Neurological Exam: Alert, Awake, Oriented x3 - Psychiatric Exam Psychiatric exam: Normal Affect, Normal Mood - Skin Skin Exam: Intact, Normal Color, Warm Assessment and Plan - Assessment and Plan (Free Text) Assessment: A 56 year old female who came in to the ER due to shortness of breath and malaise. History of COPD,on home oxygen, breast cancer, faiza cath in place, diabetes mellitus, anxiety,depression,chronic back pain, arthritis, hernia repair,current smoker, episodes of bloody vomiting but refused EGD. However, agreed EGD that was done yesterday with results of hiatal hernia, doudenitis, gastritis, esophageal ulcers. Plan: Had EGD yesterday-hiatal hernia, doudenitis,gastritis, esophageal ulcers. GI work up in progress Coughing small amount of whitish phlegm with nebulizer treatments, on NC 2-3 l/min, no distress Pulmonary on consult Cardiac status stable Blood pressure and heart rate controlled On ASA 81 mg daily,Lipitor 20 mg daily,Nicoderm patch daily Smoking cessation Continue current medications Continue current treatment Will follow up Plan and treatment discussed with Dr. Hernandez
[2017-08-03 08:04] VITALS: BP 122/49; PULSE 87; RESP 20; TEMP 98.2
[2017-08-03] MEDS: oxyCODONE 5 mg Immediate Release Tab PO PRN (08:46)
--- NOTE | 2017-08-03 10:58 | CON ---
DATE: 08/03/2017 REASON FOR CONSULTATION: Breast cancer, anemia, GI bleed. HISTORY OF PRESENT ILLNESS: Ms. Granado is a 56-year-old female diagnosed with breast cancer in 2016. She underwent surgery and received one cycle of chemotherapy . After that she declined treatment for cancer. She has been admitted to the hospital with GI bleed now. EGD done showed esophagitis, gastritis. No active source of bleeding found. She also has chronic kidney disease with elevated creatinine of 1.8, severe iron deficiency with iron less than 10. CAT scan of the abdomen and pelvis done during this admission did not show any mass lesion consistent with metastatic disease. She had right upper lobe and middle lobe fibrosis, which is chronic. PAST MEDICAL HISTORY: Breast cancer, anemia, chronic kidney disease, COPD, heavy smoker, anxiety, chronic back pain, diabetes mellitus type 2, recurrent UTI. ALLERGIES: LEVOFLOXACIN AND NYSTATIN. HOME MEDICATIONS: Detrol, insulin, simvastatin, oxycodone, TriCor, Pepcid, Xanax, Advair. REVIEW OF SYSTEMS: Shortness of breath. Chronic back pain, anxiety. Fatigue. Rest of 12-point review of systems reviewed, negative. PHYSICAL EXAMINATION: GENERAL: Comfortable in bed, in no acute distress. VITAL SIGNS: Temperature 98, heart rate is 80 per minute, blood pressure 130/60, respiratory rate 15 per minute. HEENT: Pallor positive. NECK: No lymphadenopathy. CHEST: Air entry present and equal bilateral. No added sound. CARDIOVASCULAR: S1 and S2 normal. No murmur. No gallop. ABDOMEN: Soft, nontender. No hepatosplenomegaly. EXTREMITIES: No edema. NEUROLOGIC: Alert and oriented x3. No focal sensory or motor deficits. LABORATORY DATA: White count 10.2, hemoglobin 10.3, hematocrit 33.8, platelets 220. Sodium 145, potassium 5.1, creatinine 1.8, calcium is 7.7, iron less than 10. MEDICATIONS: Reviewed. ASSESSMENT: 1. Breast cancer. 2. Severe anemia. 3. Chronic kidney disease. 4. Iron deficiency. 5. Anxiety. 6. Chronic obstructive pulmonary disease. PLAN: 1. She will need workup for metastatic disease now as outpatient. CT - PET scan will be scheduled when she is discharged from the hospital and if she follows up in office, she has been noncompliant and has refused multiple times treatment related to breast cancer. Compliance discussed with the patient. 2. Iron deficiency anemia, currently on IV iron. She will need continuation of IV iron to replete blood iron. After correction of iron, if she is still anemic, she will need erythropoietin support to maintain normal hemoglobin. 3. Right upper and middle lobe fibrosis, which is chronic. Dr. Rucker of Pulmonary following. Renal, chronic kidney disease, Dr. Hurd following. Thank you Dr. Sosa for allowing us to participate in Ms. Granado's care. We will continue to follow during hospitalization. Stephanie Zelaya MD [facility]
[2017-08-03] MEDS: Insulin Lispro 1 UNITS/0.01 ML SC SCH (12:43)
[2017-08-03] MEDS ORDERED: oxyCODONE 5 mg Immediate Release Tab PO PRN (13:47)
--- NOTE | 2017-08-03 14:34 | PN ---
DATE: 08/02/2017 SUBJECTIVE: The patient is status post endoscopy. She is comfortable. No distress. No vomiting of blood. The patient, otherwise, is stable. No respiratory distress. PHYSICAL EXAMINATION: VITAL SIGNS: On 08/02/2017, temperature 98.4, heart rate 91, blood pressure 142/50, respirations 16, saturation 99% on 2 liters nasal cannula. HEENT: Head and neck examination is normal. No JVD, no thyromegaly. CHEST: Clear. CARDIAC: First sound and second sound normal. ABDOMEN: Soft, nontender. EXTREMITIES: No edema. NEUROLOGIC: The patient is nonfocal. Normal, alert, awake, and oriented x3. LABORATORY DATA: Show white count 10.2, hemoglobin 10.3, hematocrit 33.8, platelets 220. Chemistry shows sodium 145, potassium 5.1, chloride 104, bicarbonate 32, BUN 34, creatinine 1.2. Blood sugar 146, calcium 7.7, phosphorus 5.2, magnesium 1.7. Liver function test is normal. IMPRESSION AND PLAN: 1. Acute gastrointestinal bleeding, etiology status post endoscopy shows grade D lower esophageal ulceration involving 75% of the circumference of the lower esophagus and involving one more layer of mucosal surfaces. 2. The patient has esophageal ulcer, gastritis, duodenitis and the patient advised not to take any Motrin or Advil home dose or any aspirin, only Percocet for pain p.r.n. 3. Chronic renal insufficiency. 4. Chronic obstructive pulmonary disease, stable. Continue current medications, inhaled bronchodilators. 5. Chronic back pain, degenerative joint disease. Continue Percocet. 6. Chronic anxiety. She is stable on Xanax. The patient has severe anemia. She has got 2 units of blood transfusions, iron IV, seems stable. Continue current therapy. 7. Nicotine addiction. Continue the patch and the patient advised and encouraged to quit smoking. 8. Breast cancer. She is being seen by Dr. Zelaya and she is a service delivery consultant of the patient for Hematology part and she will follow up with Dr. Zelaya. The patient seems noncompliant with chemotherapy; however, we will continue current therapy for now. Sloan Sosa MD [facility] # [id number]
--- NOTE | 2017-08-03 16:19 | CP.PCM.PN ---
Subjective - Date & Time of Evaluation Date of Evaluation: 08/03/17 Time of Evaluation: 10:55 - Subjective Subjective: Seen and examined at the bedside earlier today, chart review. Had endoscopy yesterday found to have LA grade D esophagitis. Patient tolerated. Diet, denies nausea, vomiting, or abdominal pain. No reports of acute overnight events. Objective - Vital Signs/Intake and Output Vital Signs (last 24 hours): Temp Pulse Resp BP Pulse Ox 98.2 F 87 20 122/49 L 95 08/03/17 08:03 08/03/17 08:03 08/03/17 08:03 08/03/17 08:03 08/03/17 08:03 Intake and Output: 08/03/17 08/03/17 06:59 18:59 Intake Total 1200 Output Total 500 Balance 700 - Medications Medications: Current Medications Acetylcysteine (Acetylcysteine 20%) 3 ml IH BIDRESP [facility] Last Admin: 08/03/17 07:25 Dose: 2 ml Albuterol/Ipratropium (Duoneb 3 Mg/0.5 Mg (3 Ml) Ud) 3 ml IH QIDRESP [facility] Last Admin: 08/03/17 15:16 Dose: Not Given Aspirin (Ecotrin) 81 mg PO DAILY [facility] Last Admin: 07/28/17 09:21 Dose: 81 mg Atorvastatin Calcium (Lipitor) 20 mg PO DIN [facility] Last Admin: 08/02/17 17:26 Dose: 20 mg Calcium Carbonate (Oscal) 500 mg PO TID [facility] Last Admin: 08/03/17 14:35 Dose: 500 mg Docusate Sodium (Colace) 100 mg PO DAILY [facility] Last Admin: 08/03/17 11:02 Dose: 100 mg Famotidine (Pepcid) 20 mg PO HS [facility] Iron Sucrose 200 mg/ Sodium (Chloride) 110 mls @ 110 mls/hr IVPB QOTHERDAY [facility] Stop: 08/11/17 10:59 Last Admin: 08/03/17 11:01 Dose: 110 mls/hr Sodium Chloride (Sodium Chloride 0.9%) 1,000 mls @ 100 mls/hr IV .Q10H [facility] Last Admin: 08/03/17 06:03 Dose: Not Given Insulin Detemir (Levemir) 10 unit SC BID [facility] Last Admin: 07/28/17 09:20 Dose: 10 unit Insulin Human Regular (Humulin R Low) 0 units SC [facility] PRN Reason: Protocol Last Admin: 08/03/17 13:20 Dose: 2 units Metoclopramide HCl (Reglan) 5 mg IVP ACHS [facility] Last Admin: 08/03/17 13:20 Dose: 5 mg Nicotine (Nicoderm Cq) 1 patch TD DAILY [facility] Last Admin: 08/03/17 11:01 Dose: 1 patch Ondansetron HCl (Zofran Inj) 4 mg IVP Q6H PRN PRN Reason: Nausea/Vomiting Oxycodone HCl (Oxycodone Immediate Release Tab) 5 mg PO BID PRN PRN Reason: Pain, severe (8-10) Pantoprazole Sodium (Protonix Ec Tab) 40 mg PO 0600 [facility] Tolterodine Tartrate (Detrol) 2 mg PO BID [facility] Last Admin: 08/03/17 11:02 Dose: 2 mg - Labs Labs: 08/02/17 06:28 08/02/17 06:28 PT 12.2 SECONDS (9.4-12.5) 07/26/17 17:00 INR 1.07 (0.93-1.08) 07/26/17 17:00 APTT 35.6 Seconds (25.1-36.5) 07/26/17 17:00 - Constitutional Appears: No Acute Distress - Eye Exam Eye Exam: Normal appearance. absent: Scleral icterus - ENT Exam ENT Exam: Mucous Membranes Moist - Neck Exam Neck Exam: Normal Inspection - Respiratory Exam Respiratory Exam: NORMAL BREATHING PATTERN. absent: Respiratory Distress - Cardiovascular Exam Cardiovascular Exam: +S1, +S2 - GI/Abdominal Exam GI & Abdominal Exam: Soft, Normal Bowel Sounds. absent: Guarding, Tenderness, Organomegaly, Rebound - Extremities Exam Extremities Exam: absent: Calf Tenderness - Neurological Exam Neurological Exam: Alert, Awake, Oriented x3 Assessment and Plan - Assessment and Plan (Free Text) Assessment: Assessment: Anemia, status post blood transfusion Hematopoiesis Status post EGD found to have LA grade a esophagitis, hiatal hernia, gastritis Exacerbation of COPD Respiratory tract infection Hyperlipidemia History of breast cancer Plan: on Protonix twice a day Continue Puree Diet Monitor H&H and for overt GI bleed On Reglan before meals and at bedtime Zofran when necessary discuss w/ pt need repeat egd 4-6 wks to assess healing, on Discharge take Protonix 40 mg in AM and Pepcid 20 mg as HS. Seen and discussed with Dr. Coker.
--- NOTE | 2017-08-03 17:35 | PN ---
DATE: 08/03/2017 SUBJECTIVE: The patient is seen sitting in bed. She is awake. She is alert. PHYSICAL EXAMINATION: GENERAL: Middle-aged lady sitting in bed. VITAL SIGNS: Blood pressure 122/49, heart rate 87, respiratory rate 20, temperature 98.2. HEENT: Normocephalic, atraumatic. NECK: Supple, no JVD. LUNGS: Bilateral equal air entry, bilateral rhonchi, scattered wheeze. CARDIAC: S1 and S2, regular rate and rhythm, no murmur, no rub. ABDOMEN: Obese, distended, soft, nontender, bowel sounds present. EXTREMITIES: No lower extremity edema. INTAKE AND OUTPUT: 1200/500. LABORATORY DATA: WBC 10, hemoglobin 10.3, hematocrit 34, platelets 220. Sodium 145, potassium 5.1, chloride 104, CO2 32, BUN 34, creatinine 1.8, glucose 146, calcium 7.7, phosphorus 7.2, magnesium 1.7, albumin 3.3. ASSESSMENT: 1. Status post gastrointestinal bleed, esophagitis. 2. Chronic anemia. 3. Chronic kidney disease, stage III. 4. Chronic obstructive pulmonary disease. 5. Remote history of breast cancer. 6. Congestive heart failure. 7. Chronic back pain. PLAN: 1. Continue PPI. 2. Continue respiratory treatments. 3. Continue IV infusion of iron while the patient is here. 4. Follow up PTH levels. 5. Continue calcium carbonate. 6. We will need phosphate binders once gastrointestinal issues have settled down. Lula Hurd MD
--- NOTE | 2017-08-03 23:07 | PN ---
DATE: 08/03/2017 PULMONARY PROGRESS NOTE REFERRING PHYSICIAN: Sloan Sosa MD. SUBJECTIVE: She is sitting side of the bed. Night was unremarkable. Feels better. Decreased cough. Decreased shortness of breath. Tolerating full liquid diet well. No nausea, no vomiting, or diarrhea. No leg pain or leg swelling. OBJECTIVE: GENERAL: In no acute distress. VITAL SIGNS: Temperature 98, heart rate 87, respiratory rate 20, blood pressure 122/49, pulse ox 95% on 2 L nasal cannula. HEENT: Moist mucous membrane. Crowded airway. NECK: Supple. No JVD. LUNGS: Have a fair airflow. No rhonchi. HEART: S1 and S2. ABDOMEN: Soft, nontender. No organomegaly. EXTREMITIES: No edema. NEUROLOGIC: Awake, alert, follows simple command. LABORATORY DATA: Showed blood sugar this morning is 221. No other data available. MEDICATIONS: Reviewed and noted. No new changes in medication reported since yesterday. IMPRESSION AND PLAN: Chronic obstructive lung disease, sleep apnea syndrome, gastroesophageal reflux disease, history of breast cancer, history of chemotherapy, depression, anxiety disorder, hydronephrosis, dilated esophagus, status post esophagogastroduodenoscopy showing esophagitis, hiatal hernia, chronic gastritis, duodenitis. Pulmonary point of view, she is doing okay. Urged her to stop smoking. Continue inhaled bronchodilator, supplement oxygen. Educated patient about supplement oxygen and risk of fire with smoking. She expressed understanding. Thank you and we will follow with you. Lisa Rucker MD
[2017-08-04] MEDS ORDERED: Pantoprazole 40 mg EC Tab PO SCH (06:00)
--- NOTE | 2017-08-04 15:52 | DS ---
HISTORY OF PRESENT ILLNESS: The patient was admitted with respiratory distress, found to have COPD exacerbation and pneumonia. She was treated with the antibiotic and the patient was given IV fluids, IV steroids. The patient was found to be anemic. She got evaluated by GI consult, Dr. Coker. Two units of packed RBCs was transfused. Her steroids gradually was discontinued and the patient seems doing well with that. Continued on IV antibiotic and inhaled bronchodilators. The patient stays stable, endoscopy shows large circumferential grade D esophageal ulceration from the lower part of the esophagus, possibly due to severe acid reflux and gastroparesis associated with reflux. The patient was advised to decrease her pain medicine to once or twice a day p.r.n. for severe pain, due to its underlying side effects and maintained on acid reflux medicine, Protonix 40 mg in the morning and 40 mg of Pepcid at night. She also advised on diet, should be pureed diet. Also, dietary consultation has been done to explain pureed consistency diet, which help the esophageal ulcer healing. The patient was given antibiotic as outpatient and to be followed in the office within a week. There are no other complaints. She seems stable. She tolerates a diet. No vomiting. PHYSICAL EXAMINATION: VITAL SIGNS: On discharge, temperature is 98.2, heart rate 87, blood pressure 122/49, respirations 20, saturation 95% on 2 liters. HEAD AND NECK: Normal. No JVD. No thyromegaly. CHEST: Clear bilaterally. CARDIAC: First sound and second sound normal. ABDOMEN: Soft, nontender. EXTREMITIES: No edema. NEUROLOGIC: Normal. LABORATORY STUDY: Last laboratory shows white count 10.2, hemoglobin 10.3, hematocrit 33.8, platelets 220. Chemistry shows sodium 145, potassium 5.1, chloride 104, bicarbonate 32, BUN 34, creatinine 1.8. Blood sugar 146, calcium 7.7, phosphorus 5.2, magnesium 1.7. Liver function test is normal. DISCHARGE DIAGNOSES: 1. Acute chronic obstructive pulmonary disease exacerbation. 2. Community-acquired pneumonia. 3. Acute gastrointestinal bleeding. 4. Grade D esophageal circumferential ulcer. 5. Gastroparesis. 6. Acid reflux oesophagitis with ulceration. 7. Duodenitis gastritis. 8. Insulin dependent diabetes. 9. Nicotine addictions. The patient refused to quit smoking. 10. Breast cancer. 11. Chronic osteoarthritis of her spine. 12. Chronic anxiety. PLAN: We will discharge the patient. Medications including Augmentin liquid mg twice a day, will be discharged for another 5 more days and continue Protonix 40 in the morning and 40 of Pepcid at night. Continue all other medications. Decrease oxycodone to twice a day p.r.n. for severe back pain and maintain all other medications the same. The patient advised to avoid any aspirin, any Motrin, any nonsteroidal. She does not take it and advised not to take, only Tylenol p.r.n. Sloan Sosa MD
== END 2017-08-03 15:45 | disposition home or self-care (01) | DRG 88 ==
LOC: ED 15:48 → ERH 19:46 → 2RSO 22:18 → 3RNO 08-01 11:22
PROVIDERS: ADMIT Internal Medicine; ATTEND Internal Medicine
PROC: 30233N1 Transfusion of Nonautologous Red Blood Cells into Peripheral Vein, Percutaneous Approach (ICD-10-PCS; 2017-08-01)
PROC: 0DJ08ZZ Inspection of Upper Intestinal Tract, Via Natural or Artificial Opening Endoscopic (ICD-10-PCS; principal; 2017-08-02 14:00)
DX: J44.1 Chronic obstructive pulmonary disease with (acute) exacerbation (principal); J18.9 Pneumonia, unspecified organism; N18.4 Chronic kidney disease, stage 4 (severe); I13.0 Hypertensive heart and chronic kidney disease with heart failure and stage 1 through stage 4 chronic kidney disease, or unspecified chronic kidney disease; I50.9 Heart failure, unspecified; J98.11 Atelectasis; N39.0 Urinary tract infection, site not specified; E10.22 Type 1 diabetes mellitus with diabetic chronic kidney disease; E86.0 Dehydration; K92.0 Hematemesis; D50.9 Iron deficiency anemia, unspecified; G89.4 Chronic pain syndrome; M54.9 Dorsalgia, unspecified; F41.9 Anxiety disorder, unspecified; D63.1 Anemia in chronic kidney disease; F17.210 Nicotine dependence, cigarettes, uncomplicated; E78.5 Hyperlipidemia, unspecified; K29.50 Unspecified chronic gastritis without bleeding; K29.80 Duodenitis without bleeding; F32.9 Major depressive disorder, single episode, unspecified; K44.9 Diaphragmatic hernia without obstruction or gangrene; E83.51 Hypocalcemia; K21.0 Gastro-esophageal reflux disease with esophagitis; K22.10 Ulcer of esophagus without bleeding; E78.00 Pure hypercholesterolemia, unspecified; M19.90 Unspecified osteoarthritis, unspecified site; J84.10 Pulmonary fibrosis, unspecified; T80.92XA Unspecified transfusion reaction, initial encounter; Y84.8 Other medical procedures as the cause of abnormal reaction of the patient, or of later complication, without mention of misadventure at the time of the procedure; G47.30 Sleep apnea, unspecified; K22.8 Other specified diseases of esophagus; N25.81 Secondary hyperparathyroidism of renal origin; J98.8 Other specified respiratory disorders; Z91.19 Patient's noncompliance with other medical treatment and regimen; Z79.82 Long term (current) use of aspirin; Z88.3 Allergy status to other anti-infective agents; Z99.81 Dependence on supplemental oxygen; Z85.3 Personal history of malignant neoplasm of breast; Z79.4 Long term (current) use of insulin; Z92.21 Personal history of antineoplastic chemotherapy; Z87.442 Personal history of urinary calculi

== ENCOUNTER 2018-02-05 10:12 | Inpatient (IN) | payer MEDICAID ==
[2018-02-05] MEDS ORDERED: Naloxone 0.4 mg/ml Inj (Adult) ONE (10:20)
[2018-02-05 10:26] VITALS: BMI 25.7
[2018-02-05] MEDS ORDERED: Naloxone 0.02 mg/ml Inj (Neonatal) IV ONE (10:35)
--- NOTE | 2018-02-05 10:47 | ED PDOC ---
Arrival/HPI - General Chief Complaint: Shortness Of Breath Historian: Family (son), EMS - History of Present Illness Narrative History of Present Illness (Text): 02/05/18 10:45 A 57 year old female, whose past medical history includes breast CA, COPD, and asthma, accompanied by son, and brought in by EMS to the emergency department for AMS and shortness of breath. Per son, last night patient had her Albuterol treatment and took Xanax. This morning, patient was normal, with unsteady gait (baseline due to leg weakness), and suddenly became unresponsive. Per EMS, upon their arrival, patient was still unresponsive and pupils pinpoint. Upon arrival here to the ER at 10:13, patient remained unresponsive and pupils pinpoint and constricted bilaterally. Patient responds to painful stimuli by moaning. Limited HPI and ROS due to patient's AMS. Also, patient has been given 0.4 Narcan in the ER, to which she moans more, opens her eyes slightly, and has some leg movement. Past Medical History - Provider Review Nursing Documentation Reviewed: Yes - Infectious Disease Hx of Infectious Diseases: None - Tetanus Immunization Tetanus Immunization: Unknown - Reproductive Menopause: Yes - Cardiac Hx Cardiac Disorders: Yes Hx Hypertension: Yes - Pulmonary Hx Respiratory Disorders: Yes Hx Chronic Obstructive Pulmonary Disease (COPD): Yes Hx Emphysema: Yes Hx Pneumonia: Yes - Neurological Hx Neurological Disorder: No - HEENT Hx HEENT Disorder: No - Renal Hx Renal Disorder: No - Endocrine/Metabolic Hx Endocrine Disorders: Yes Hx Diabetes Mellitus Type 2: Yes - Hematological/Oncological Hx Blood Transfusions: Yes Hx Blood Transfusion Reaction: No - Integumentary Hx Dermatological Disorder: No - Musculoskeletal/Rheumatological Hx Falls: Yes - Gastrointestinal Hx Gastrointestinal Disorders: No - Genitourinary/Gynecological Hx Genitourinary Disorders: No - Psychiatric Hx Psychophysiologic Disorder: Yes Hx Anxiety: Yes Hx Depression: Yes Hx Substance Use: Yes - Past Surgical History Past Surgical History: Non-Contributing - Surgical History Hx Inguinal Hernia Repair: Yes - Anesthesia Hx Anesthesia: Yes Hx Anesthesia Reactions: No Hx Malignant Hyperthermia: No - Suicidal Assessment Feels Threatened In Home Enviroment: No Family/Social History - Physician Review Nursing Documentation Reviewed: Yes Family/Social History: No Known Family HX Smoking Status: Current Some Days Smoker Hx Alcohol Use: Yes Hx Substance Use: Yes Hx Substance Use Treatment: No Allergies/Home Meds Allergies/Adverse Reactions: Allergies levofloxacin [From Levaquin] Allergy (Verified 11/23/17 02:24) SHORTNESS OF BREATH;PARANOID nystatin Allergy (Verified 11/23/17 02:24) SWELLING Home Medications: Home Meds Medication Instructions Recorded Confirmed David Hfa 115/21 1 puff INH BID 03/03/17 02/05/18 Aspirin [Ecotrin] 81 mg PO DAILY 03/03/17 02/05/18 Famotidine [Pepcid] 20 mg PO DAILY 03/03/17 02/05/18 Oxycodone HCl/Acetaminophen 1 tab PO Q6 03/03/17 02/05/18 [Oxycodone-Acetaminophen 5-325] Simvastatin 10 mg PO DAILY 03/03/17 02/05/18 Review of Systems - Review of Systems Systems not reviewed;Unavailable: Altered Mental Status Physical Exam - Systems Exam Head: Present: Atraumatic, Normocephalic Pupils: Present: Pinpoint (and constricted, bilaterally) Extroacular Muscles: Present: EOMI Conjunctiva: Present: Normal Mouth: Present: Moist Mucous Membranes Neck: Present: Normal Range of Motion Respiratory/Chest: Present: Clear to Auscultation, Good Air Exchange. No: Respiratory Distress, Accessory Muscle Use Cardiovascular: Present: Regular Rate and Rhythm, Normal S1, S2. No: Murmurs Abdomen: No: Tenderness, Distention, Peritoneal Signs Back: Present: Normal Inspection Upper Extremity: Present: Normal Inspection. No: Cyanosis, Edema Lower Extremity: Present: Other (some venastasis bilaterally) Neurological: Present: GCS=15, CN II-XII Intact, Speech Normal Skin: Present: Warm, Dry, Normal Color. No: Rashes Psychiatric: Present: Other (AMS, patient responds to painful stimuli by moaning) Medical Decision Making ED Course and Treatment: 02/05/18 10:46 Impression: 57 yaer old female with AMS and shortness of breath. Differential Diagnosis included but are not limited to: Drug Use vs. Overdose on Xanax. Plan: -- Labs -- Urinalysis -- Head CT -- Chest X-ray -- Venous Blood Gas -- EKG -- Narcan (0.04 mg IV) -- Blood Culture -- Urine Culture -- Reassess and disposition Prior Visits: Notes and results from previous visits were reviewed. Patient was last seen in the emergency department on 11/23/2017 for AMS and hypoglycemia. Patient was admitted. Progress Notes: EKG: Ordered, reviewed, and independently interpreted the EKG. Rate : 91 BPM Rhythm : NSR Interpretation : No ST-segment elevations or depressions, no T-wave inversions, normal intervals. Comparison : No previous EKG for comparison. 02/05/2018 11:[address] IMPRESSION: Normal CT of the Head. Dictator: Champ Tracey MD 02/05/2018 12:01 Chest X-ray IMPRESSION: No acute infiltrate bilaterally. Interval clearing of right base noted in the interval. Dictator: Adam Alvarez MD - RAD Interpretation Radiology Orders: 02/05/18 10:33 HEAD W/O CONTRAST [CT] Stat 02/05/18 10:34 CHEST PORTABLE [RAD] Stat - Medication Orders Current Medication Orders: Naloxone HCl (Narcan) 0.04 mg IV ONCE ONE Stop: 02/05/18 10:36 - Scribe Statement The provider has reviewed the documentation as recorded by the Rafa Marks Provider Scribe Attestation: All medical record entries made by the Scribe were at my direction and personally dictated by me. I have reviewed the chart and agree that the record accurately reflects my personal performance of the history, physical exam, medical decision making, and the department course for this patient. I have also personally directed, reviewed, and agree with the discharge instructions and disposition. Disposition/Present on Arrival - Present on Arrival Any Indicators Present on Arrival: No History of DVT/PE: No History of Uncontrolled Diabetes: No Urinary Catheter: No History of Decub. Ulcer: No History Surgical Site Infection Following: None - Disposition Have Diagnosis and Disposition been Completed?: Yes Diagnosis: Hypoxia, Overdose Disposition: HOSPITALIZED Disposition Time: 14:58 Condition: SERIOUS
[2018-02-05] MEDS ORDERED: Naloxone 0.4 mg/ml Inj (Adult) IVP ONE (10:50)
[2018-02-05 10:59] LABS: VENOUS BLOOD GAS BASE EXCESS -7.1 mmol/L (0.0-2.0); VENOUS BLOOD GAS PO2 110 mm/Hg (30-55)
[2018-02-05 11:02] LABS: BASO # 0.05 K/mm3 (0.0-2.0); BASO % 0.4 % (0.0-3.0); EOS # 0.6 (0.0-0.7); EOS % 4.9 % (1.5-5.0); GRAN # 8.4 (1.4-6.5); GRAN % 71.8 % (50.0-68.0); HEMOGLOBIN 10.9 g/dL (12.0-16.0); LYMPH # 2.2 (1.2-3.4); LYMPH % 18.5 % (22.0-35.0); MEAN CELL VOLUME 94.9 fl (80.0-105.0); MEAN CORPUSCULAR HEMOGLOBIN 27.5 pg (25.0-35.0); MEAN PLATELET VOLUME 10.2 fl (7.0-11.0); MONO # 0.5 (0.1-0.6); MONO % 4.4 % (1.0-6.0); RBC 3.96 10^6/uL (3.5-6.1); RED CELL DISTRIBUTION WIDTH 15.1 % (11.5-14.5); WHITE BLOOD COUNT 11.7 10^3/uL (4.5-11.0)
[2018-02-05 11:05] LABS: VENOUS BLOOD PH 7.05 (7.32-7.43)
[2018-02-05] MEDS ORDERED: Sodium Chloride 0.9% 1,000 ML IV STA ×2 (11:06→21:58)
[2018-02-05 11:15] LABS: ALB/GLOB RATIO 1.1 (1.1-1.8); ALT/SGPT 15 U/L (7-56); AST/SGOT 15 U/L (14-36); BLOOD UREA NITROGEN 78 mg/dL (7-21); CALCIUM 9.1 mg/dL (8.4-10.5); GFR NON-AFRICAN AMERICAN 17
[2018-02-05 11:20] LABS: TROPONIN I < 0.01 ng/mL
[2018-02-05 11:21] LABS: URINE BILIRUBIN NEGATIVE (NEGATIVE); URINE BLOOD LARGE (NEGATIVE); URINE GLUCOSE (UA) NEGATIVE (NEGATIVE); URINE LEUKOCYTE ESTERASE MODERATE Leu/uL (NEGATIVE); URINE PROTEIN 100 mg/dL (<30 mg/dL); URINE UROBILINOGEN 0.2 E.U./dL (<1 E.U./dL)
[2018-02-05 11:25] LABS: INR 1.04; PARTIAL THROMBOPLASTIN TIME 37.8 Seconds (25.1-36.5)
[2018-02-05 11:25] LABS: URINE APPEARANCE CLEAR (CLEAR); URINE COLOR YELLOW (YELLOW)
--- NOTE | 2018-02-05 11:25 | CT ---
Date of service: 02/05/2018 PROCEDURE: CT HEAD WITHOUT CONTRAST. HISTORY: AMS COMPARISON: None available. TECHNIQUE: Axial computed tomography images were obtained through the head/brain without intravenous contrast. Radiation dose: Total exam DLP = 1037.25 mGy-cm. This CT exam was performed using one or more of the following dose reduction techniques: Automated exposure control, adjustment of the mA and/or kV according to patient size, and/or use of iterative reconstruction technique. FINDINGS: HEMORRHAGE: No intracranial hemorrhage. BRAIN: No mass effect or edema. No atrophy or chronic microvascular ischemic changes. VENTRICLES: Unremarkable. No hydrocephalus. CALVARIUM: Unremarkable. PARANASAL SINUSES: Unremarkable as visualized. No significant inflammatory changes. MASTOID AIR CELLS: Unremarkable as visualized. No inflammatory changes. OTHER FINDINGS: None. IMPRESSION: Normal CT of the Head.
[2018-02-05 11:36] LABS: URINE RBC TNTC /hpf (0-2); URINE WBC TNTC /hpf (0-6)
[2018-02-05 11:37] LABS: URINE BACTERIA LARGE (NEG)
[2018-02-05 11:49] LABS: BARBITURATES, UR NEGATIVE (NEGATIVE); BENZODIAZEPINES, UR POSITIVE (NEGATIVE); OPIATES, UR NEGATIVE (NEGATIVE); PHENCYCLIDINE, UR NEGATIVE (NEGATIVE)
[2018-02-05] MEDS ORDERED: Dextrose 50% SYRINGE Inj (50 ml) IVP STA (12:02)
[2018-02-05] MEDS ORDERED: Insulin Regular 1 UNITS/0.01 ML ML IV ONE (12:03)
--- NOTE | 2018-02-05 12:05 | RAD ---
Date of service: 02/05/2018 HISTORY: AMS COMPARISON: Portable chest 11/23/2017. FINDINGS: LUNGS: Right-sided MediPort unchanged in position. No acute infiltrate bilaterally. Interval clearing of right basilar patchy opacity in the interval. PLEURA: No significant pleural effusion identified, no pneumothorax apparent. Interval clearing of right pleural effusion noted. CARDIOVASCULAR: No aortic atherosclerotic calcification present. Normal cardiac size. No pulmonary vascular congestion. OSSEOUS STRUCTURES: No significant abnormalities. VISUALIZED UPPER ABDOMEN: Normal. OTHER FINDINGS: None. IMPRESSION: No acute infiltrate bilaterally. Interval clearing of right base noted in the interval.
[2018-02-05] MEDS ORDERED: Midazolam 5 MG/ML ONE (12:34)
[2018-02-05] MEDS: Albuterol-Ipratrop 3 mg / 0.5 (3 ml) UD IH SCH (12:37)
--- NOTE | 2018-02-05 14:19 | CARD ---
APPROVED REPORT Date of service: 02/05/2018 EKG Measurement Heart [id number] <Conclusion> Normal sinus rhythm Poor tracing: V4 partially obscured
--- NOTE | 2018-02-05 15:27 | CP.PCM.CON ---
<Jarocho Van - Last Filed: 02/05/18 17:59> History of Present Illness - History of Present Illness History of Present Illness: Jarocho Van DO, PGY1, ICU Consult note for Dr Cinda George: SOB x4 days 57 y/o feamle with PMH of COPD, asthma, DM2, breast cancer presents to the ED accompanied with her son from whom the history is obtained as patient is not responding to verbal commands. Patient was having SOB for the past 4 days that's getting worse. She is a chronic smoker and having a chronic cough that did not change recently. Patient is taking Xanax at home 4 times a day. Patient was talking untill arriving to the ED where she was not able to respond to commands. Chest pain, hemoptysis, fever, chills, palpitations, N/V/D denied as per the patient son who lives with her. No recent travl or sick contacts reported. ROS limited PMH: COPD, asthma, DM2, breast cancer( s/p chemotherapy 2 years ago), arthritis PSH: inguinal hernia repair Meds: advair, ASA, percocet, pepcid, simvastatin ALL: levofloxacin (SOB), Nystatin (swelling) SocH: active smoker, no alcohol. lives with son at home FamH: non contributory Past Patient History - Infectious Disease Hx of Infectious Diseases: None - Tetanus Immunizations Tetanus Immunization: Unknown - Past Medical History & Family History Past Medical History?: Yes - Past Social History Smoking Status: Current Some Days Smoker - CARDIAC Hx Cardiac Disorders: Yes Hx Hypertension: Yes - PULMONARY Hx Respiratory Disorders: Yes Hx Chronic Obstructive Pulmonary Disease (COPD): Yes Hx Emphysema: Yes Hx Pneumonia: Yes - NEUROLOGICAL Hx Neurological Disorder: No - HEENT Hx HEENT Problems: No - RENAL Hx Chronic Kidney Disease: No - ENDOCRINE/METABOLIC Hx Endocrine Disorders: Yes Hx Diabetes Mellitus Type 2: Yes - HEMATOLOGICAL/ONCOLOGICAL Hx Blood Transfusions: Yes Hx Blood Transfusion Reaction: No - INTEGUMENTARY Hx Dermatological Problems: No - MUSCULOSKELETAL/RHEUMATOLOGICAL Hx Falls: Yes - GASTROINTESTINAL Hx Gastrointestinal Disorders: No - GENITOURINARY/GYNECOLOGICAL Hx Genitourinary Disorders: No - PSYCHIATRIC Hx Psychophysiologic Disorder: Yes Hx Anxiety: Yes Hx Depression: Yes Hx Substance Use: Yes - SURGICAL HISTORY Hx Surgeries: Yes - ANESTHESIA Hx Anesthesia: Yes Hx Anesthesia Reactions: No Hx Malignant Hyperthermia: No Meds Allergies/Adverse Reactions: Allergies Allergy/AdvReac Type Severity Reaction Status Date / Time levofloxacin [From Levaquin] Allergy SHORTNESS Verified 11/23/17 02:24 OF BREATH;PARANOID nystatin Allergy SWELLING Verified 11/23/17 02:24 Physical Exam - Constitutional Appears: Confused, Other Additional comments: altered, not responding to verbal commands - Head Exam Head Exam: ATRAUMATIC, NORMAL INSPECTION, NORMOCEPHALIC - Eye Exam Eye Exam: Normal appearance Pupil Exam: Miosis, NORMAL ACCOMODATION - ENT Exam ENT Exam: Mucous Membranes Dry - Neck Exam Neck exam: Negative for: Lymphadenopathy - Respiratory Exam Respiratory Exam: Decreased Breath Sounds - Cardiovascular Exam Cardiovascular Exam: REGULAR RHYTHM, +S1, +S2 - GI/Abdominal Exam GI & Abdominal Exam: Hypoactive Bowel Sounds, Soft - Extremities Exam Extremities exam: Positive for: pedal pulses present - Back Exam Back exam: NORMAL INSPECTION - Neurological Exam Neurological exam: Altered - Skin Skin Exam: Dry, Intact, Pallor Results - Vital Signs Recent Vital Signs: Last Vital Signs Temp 97.9 F 02/05/18 10:22 Pulse 85 02/05/18 13:48 Resp 18 02/05/18 13:48 BP 148/53 L 02/05/18 13:48 Pulse Ox 100 02/05/18 13:48 - Labs Result Diagrams: 02/05/18 10:45 02/05/18 10:45 Labs: Laboratory Results - last 24 hr 02/05/18 02/05/18 02/05/18 10:45 10:45 10:45 WBC 11.7 H RBC 3.96 Hgb 10.9 L Hct 37.6 MCV 94.9 MCH 27.5 MCHC 29.0 L RDW 15.1 H Plt Count 327 MPV 10.2 Gran % 71.8 H Lymph % (Auto) 18.5 L [place] % (Auto) 4.4 Eos % (Auto) 4.9 Baso % (Auto) 0.4 Gran # 8.40 H Lymph # (Auto) 2.2 [place] # (Auto) 0.5 Eos # (Auto) 0.6 Baso # (Auto) 0.05 PT 12.0 INR 1.04 APTT 37.8 H pO2 VBG pH VBG pCO2 VBG HCO3 VBG Total CO2 VBG O2 Sat (Calc) VBG Base Excess VBG Potassium Sodium 144 Chloride 114 H Glucose Lactate FiO2 Potassium 5.9 H* D Carbon Dioxide 23 Anion Gap 14 BUN 78 H Creatinine 2.8 H Est GFR ( Amer) 21 Est GFR (Non-Af Amer) 17 Random Glucose 211 H Calcium 9.1 Phosphorus 6.1 H Magnesium 2.1 Total Bilirubin 0.3 AST 15 ALT 15 Alkaline Phosphatase 102 Lactate Dehydrogenase 391 Total Creatine Kinase 38 Troponin I < 0.01 Total Protein 7.7 Albumin 4.0 Globulin 3.6 Albumin/Globulin Ratio 1.1 Venous Blood Potassium Urine Color Urine Appearance Urine pH Ur Specific [place] Urine Protein Urine Glucose (UA) Urine Ketones Urine Blood Urine Nitrate Urine Bilirubin Urine Urobilinogen Ur Leukocyte Esterase Urine RBC Urine WBC Ur Epithelial Cells Urine Bacteria Urine Other Urine Opiates Screen Urine Methadone Screen Acetaminophen Ur Barbiturates Screen Ur Phencyclidine Scrn Ur Amphetamines Screen U Benzodiazepines Scrn U Oth Cocaine Metabols U Cannabinoids Screen Alcohol, Quantitative 02/05/18 02/05/18 02/05/18 10:45 10:45 10:45 WBC RBC Hgb Hct MCV MCH MCHC RDW Plt Count MPV Gran % Lymph % (Auto) [place] % (Auto) Eos % (Auto) Baso % (Auto) Gran # Lymph # (Auto) [place] # (Auto) Eos # (Auto) Baso # (Auto) PT INR APTT pO2 110 H VBG pH 7.05 L* VBG pCO2 92.0 H* VBG HCO3 25.5 VBG Total CO2 28.3 H VBG O2 Sat (Calc) 98.8 H VBG Base Excess -7.1 L VBG Potassium 5.8 H Sodium 144.0 Chloride 111.0 H Glucose 222 H Lactate 0.4 L FiO2 21.0 Potassium Carbon Dioxide Anion Gap BUN Creatinine Est GFR ( Amer) Est GFR (Non-Af Amer) Random Glucose Calcium Phosphorus Magnesium Total Bilirubin AST ALT Alkaline Phosphatase Lactate Dehydrogenase Total Creatine Kinase Troponin I Total Protein Albumin Globulin Albumin/Globulin Ratio Venous Blood Potassium 5.8 H Urine Color Urine Appearance Urine pH Ur Specific [place] Urine Protein Urine Glucose (UA) Urine Ketones Urine Blood Urine Nitrate Urine Bilirubin Urine Urobilinogen Ur Leukocyte Esterase Urine RBC Urine WBC Ur Epithelial Cells Urine Bacteria Urine Other Urine Opiates Screen Urine Methadone Screen Acetaminophen < 10.0 L Ur Barbiturates Screen Ur Phencyclidine Scrn Ur Amphetamines Screen U Benzodiazepines Scrn U Oth Cocaine Metabols U Cannabinoids Screen Alcohol, Quantitative < 10 02/05/18 02/05/18 11:05 11:05 WBC RBC Hgb Hct MCV MCH MCHC RDW Plt Count MPV Gran % Lymph % (Auto) [place] % (Auto) Eos % (Auto) Baso % (Auto) Gran # Lymph # (Auto) [place] # (Auto) Eos # (Auto) Baso # (Auto) PT INR APTT pO2 VBG pH VBG pCO2 VBG HCO3 VBG Total CO2 VBG O2 Sat (Calc) VBG Base Excess VBG Potassium Sodium Chloride Glucose Lactate FiO2 Potassium Carbon Dioxide Anion Gap BUN Creatinine Est GFR ( Amer) Est GFR (Non-Af Amer) Random Glucose Calcium Phosphorus Magnesium Total Bilirubin AST ALT Alkaline Phosphatase Lactate Dehydrogenase Total Creatine Kinase Troponin I Total Protein Albumin Globulin Albumin/Globulin Ratio Venous Blood Potassium Urine Color Yellow Urine Appearance Clear Urine pH 6.0 Ur Specific [place] 1.025 Urine Protein 100 H Urine Glucose (UA) Negative Urine Ketones Negative Urine Blood Large H Urine Nitrate Negative Urine Bilirubin Negative Urine Urobilinogen 0.2 Ur Leukocyte Esterase Moderate H Urine RBC Tntc Urine WBC Tntc Ur Epithelial Cells 4 - 5 Urine Bacteria Large Urine Other Uyeast Urine Opiates Screen Negative Urine Methadone Screen Negative Acetaminophen Ur Barbiturates Screen Negative Ur Phencyclidine Scrn Negative Ur Amphetamines Screen Negative U Benzodiazepines Scrn Positive H U Oth Cocaine Metabols Negative U Cannabinoids Screen Negative Alcohol, Quantitative Assessment & Plan - Assessment and Plan (Free Text) Assessment: 57 y/o feamle with PMH of COPD, asthma, DM2, breast cancer and xanax use presents with progressive SOB x4 days. Found to have respiratory failure with UDS positive for benzodiazepines. Plan: Neuro: -altered, not responding to verbal or verbal stimuli -CT head: no acute findings -B/l pupils miosis, reactive to light -Narcan 0.4 given in ED Pulm: -Respiratory acidodsis in the setting of benzodizebine intoxication, COPD and asthma -On BiPAP: 20//40% -ABG: pH 7.05 CO2 92 O2 110 hco3 25.5 -Repeat ABG -Lactate 0.4 -Duoneb -Solu-medrol 40mg daily -Continue Zithromax 500mg daily -CXR: no acute finding Cardio: -EKG: NSR, no ST changes -Trop 0.01 x1 Endo: -h/o DM2, on insulin -ISS-low -Accucheck Renal: -K 5.9 in ED, Ca gluconate given -Repeat CMP -BUN/Cr: 78/2.8 baseline 50s/1.5 -DAHLIA likely due to UTI : -UDS: positive for benzodiazebene -UA: +LE, WBC -f/u urine culture -Continue Rocephin Prophylaxis: DVT ppx: SCD GI ppx: pepcid Case reviewed and plan discussed with attending Dr Loo <Hudson Loo - Last Filed: 02/05/18 18:14> Meds - Medications Medications: Current Medications Famotidine (Pepcid) 20 mg IVP DAILY LUCIANO Ceftriaxone Sodium (Rocephin 1 Gram Ivpb) 1 gm in 100 mls @ 100 mls/hr IVPB DAILY LUCIANO; Protocol Azithromycin (Zithromax 500mg In Ns) 500 mg in 250 mls @ 167 mls/hr IVPB DAILY LUCIANO; Protocol Sodium Chloride (Sodium Chloride 0.9%) 1,000 mls @ 100 mls/hr IV .Q10H LUCIANO Insulin Human Regular (Humulin R Low) 0 units SC ACHS LUCIANO; Protocol Methylprednisolone (Solu-Medrol) 40 mg IVP DAILY LUCIANO Results - Vital Signs Recent Vital Signs: Last Vital Signs Temp 97 F L 02/05/18 17:49 Pulse 67 02/05/18 17:49 Resp 18 02/05/18 17:49 BP 135/58 L 02/05/18 17:49 Pulse Ox 99 02/05/18 17:49 - Labs Result Diagrams: 02/05/18 10:45 02/05/18 10:45 Labs: Laboratory Results - last 24 hr 02/05/18 02/05/18 02/05/18 10:45 10:45 10:45 WBC 11.7 H RBC 3.96 Hgb 10.9 L Hct 37.6 MCV 94.9 MCH 27.5 MCHC 29.0 L RDW 15.1 H Plt Count 327 MPV 10.2 Gran % 71.8 H Lymph % (Auto) 18.5 L [place] % (Auto) 4.4 Eos % (Auto) 4.9 Baso % (Auto) 0.4 Gran # 8.40 H Lymph # (Auto) 2.2 [place] # (Auto) 0.5 Eos # (Auto) 0.6 Baso # (Auto) 0.05 PT 12.0 INR 1.04 APTT 37.8 H pCO2 pO2 HCO3 ABG pH ABG Total CO2 ABG O2 Saturation ABG O2 Content ABG Base Excess ABG Hemoglobin ABG Carboxyhemoglobin POC ABG HHb (Measured) ABG Methemoglobin ABG O2 Capacity VBG pH VBG pCO2 VBG HCO3 VBG Total CO2 VBG O2 Sat (Calc) VBG Base Excess VBG Potassium Hgb O2 Saturation Sodium 144 Chloride 114 H Glucose Lactate FiO2 Potassium 5.9 H* D Carbon Dioxide 23 Anion Gap 14 BUN 78 H Creatinine 2.8 H Est GFR ( Amer) 21 Est GFR (Non-Af Amer) 17 Random Glucose 211 H Calcium 9.1 Phosphorus 6.1 H Magnesium 2.1 Total Bilirubin 0.3 AST 15 ALT 15 Alkaline Phosphatase 102 Ammonia Lactate Dehydrogenase 391 Total Creatine Kinase 38 Troponin I < 0.01 Total Protein 7.7 Albumin 4.0 Globulin 3.6 Albumin/Globulin Ratio 1.1 Venous Blood Potassium Urine Color Urine Appearance Urine pH Ur Specific [place] Urine Protein Urine Glucose (UA) Urine Ketones Urine Blood Urine Nitrate Urine Bilirubin Urine Urobilinogen Ur Leukocyte Esterase Urine RBC Urine WBC Ur Epithelial Cells Urine Bacteria Urine Other Urine Opiates Screen Urine Methadone Screen Acetaminophen Ur Barbiturates Screen Ur Phencyclidine Scrn Ur Amphetamines Screen U Benzodiazepines Scrn U Oth Cocaine Metabols U Cannabinoids Screen Alcohol, Quantitative 02/05/18 02/05/18 02/05/18 10:45 10:45 10:45 WBC RBC Hgb Hct MCV MCH MCHC RDW Plt Count MPV Gran % Lymph % (Auto) [place] % (Auto) Eos % (Auto) Baso % (Auto) Gran # Lymph # (Auto) [place] # (Auto) Eos # (Auto) Baso # (Auto) PT INR APTT pCO2 pO2 110 H HCO3 ABG pH ABG Total CO2 ABG O2 Saturation ABG O2 Content ABG Base Excess ABG Hemoglobin ABG Carboxyhemoglobin POC ABG HHb (Measured) ABG Methemoglobin ABG O2 Capacity VBG pH 7.05 L* VBG pCO2 92.0 H* VBG HCO3 25.5 VBG Total CO2 28.3 H VBG O2 Sat (Calc) 98.8 H VBG Base Excess -7.1 L VBG Potassium 5.8 H Hgb O2 Saturation Sodium 144.0 Chloride 111.0 H Glucose 222 H Lactate 0.4 L FiO2 21.0 Potassium Carbon Dioxide Anion Gap BUN Creatinine Est GFR ( Amer) Est GFR (Non-Af Amer) Random Glucose Calcium Phosphorus Magnesium Total Bilirubin AST ALT Alkaline Phosphatase Ammonia Lactate Dehydrogenase Total Creatine Kinase Troponin I Total Protein Albumin Globulin Albumin/Globulin Ratio Venous Blood Potassium 5.8 H Urine Color Urine Appearance Urine pH Ur Specific [place] Urine Protein Urine Glucose (UA) Urine Ketones Urine Blood Urine Nitrate Urine Bilirubin Urine Urobilinogen Ur Leukocyte Esterase Urine RBC Urine WBC Ur Epithelial Cells Urine Bacteria Urine Other Urine Opiates Screen Urine Methadone Screen Acetaminophen < 10.0 L Ur Barbiturates Screen Ur Phencyclidine Scrn Ur Amphetamines Screen U Benzodiazepines Scrn U Oth Cocaine Metabols U Cannabinoids Screen Alcohol, Quantitative < 10 02/05/18 02/05/18 02/05/18 11:05 11:05 16:20 WBC RBC Hgb Hct MCV MCH MCHC RDW Plt Count MPV Gran % Lymph % (Auto) [place] % (Auto) Eos % (Auto) Baso % (Auto) Gran # Lymph # (Auto) [place] # (Auto) Eos # (Auto) Baso # (Auto) PT INR APTT pCO2 pO2 HCO3 ABG pH ABG Total CO2 ABG O2 Saturation ABG O2 Content ABG Base Excess ABG Hemoglobin ABG Carboxyhemoglobin POC ABG HHb (Measured) ABG Methemoglobin ABG O2 Capacity VBG pH VBG pCO2 VBG HCO3 VBG Total CO2 VBG O2 Sat (Calc) VBG Base Excess VBG Potassium Hgb O2 Saturation Sodium Chloride Glucose Lactate FiO2 Potassium Carbon Dioxide Anion Gap BUN Creatinine Est GFR ( Amer) Est GFR (Non-Af Amer) Random Glucose Calcium Phosphorus Magnesium Total Bilirubin AST ALT Alkaline Phosphatase Ammonia 17 Lactate Dehydrogenase Total Creatine Kinase Troponin I Total Protein Albumin Globulin Albumin/Globulin Ratio Venous Blood Potassium Urine Color Yellow Urine Appearance Clear Urine pH 6.0 Ur Specific [place] 1.025 Urine Protein 100 H Urine Glucose (UA) Negative Urine Ketones Negative Urine Blood Large H Urine Nitrate Negative Urine Bilirubin Negative Urine Urobilinogen 0.2 Ur Leukocyte Esterase Moderate H Urine RBC Tntc Urine WBC Tntc Ur Epithelial Cells 4 - 5 Urine Bacteria Large Urine Other Uyeast Urine Opiates Screen Negative Urine Methadone Screen Negative Acetaminophen Ur Barbiturates Screen Negative Ur Phencyclidine Scrn Negative Ur Amphetamines Screen Negative U Benzodiazepines Scrn Positive H U Oth Cocaine Metabols Negative U Cannabinoids Screen Negative Alcohol, Quantitative 02/05/18 17:45 WBC RBC Hgb Hct MCV MCH MCHC RDW Plt Count MPV Gran % Lymph % (Auto) [place] % (Auto) Eos % (Auto) Baso % (Auto) Gran # Lymph # (Auto) [place] # (Auto) Eos # (Auto) Baso # (Auto) PT INR APTT pCO2 56 H pO2 83.0 HCO3 20.0 L ABG pH 7.16 L* ABG Total CO2 21.7 L ABG O2 Saturation 97.5 ABG O2 Content 14.0 L ABG Base Excess -8.7 L ABG Hemoglobin 10.4 L ABG Carboxyhemoglobin 1.7 H POC ABG HHb (Measured) 2.4 ABG Methemoglobin 1.1 ABG O2 Capacity 14.4 L VBG pH VBG pCO2 VBG HCO3 VBG Total CO2 VBG O2 Sat (Calc) VBG Base Excess VBG Potassium Hgb O2 Saturation 94.8 L Sodium Chloride Glucose Lactate FiO2 40.0 Potassium Carbon Dioxide Anion Gap BUN Creatinine Est GFR ( Amer) Est GFR (Non-Af Amer) Random Glucose Calcium Phosphorus Magnesium Total Bilirubin AST ALT Alkaline Phosphatase Ammonia Lactate Dehydrogenase Total Creatine Kinase Troponin I Total Protein Albumin Globulin Albumin/Globulin Ratio Venous Blood Potassium Urine Color Urine Appearance Urine pH Ur Specific [place] Urine Protein Urine Glucose (UA) Urine Ketones Urine Blood Urine Nitrate Urine Bilirubin Urine Urobilinogen Ur Leukocyte Esterase Urine RBC Urine WBC Ur Epithelial Cells Urine Bacteria Urine Other Urine Opiates Screen Urine Methadone Screen Acetaminophen Ur Barbiturates Screen Ur Phencyclidine Scrn Ur Amphetamines Screen U Benzodiazepines Scrn U Oth Cocaine Metabols U Cannabinoids Screen Alcohol, Quantitative Addendum Addendum: 02/05/18 18:14 ICU Attending Addendum Patient seen and examined. Case reviewed on round with housestaff. Agree with resident note above with the following additions/exceptions: 57 F with PMH of COPD home 3L O2, DM2, breast cancer presents to the ED lethargic and minimally responsive. Her son reports she has been taking Xanax at home 4 times a day. ABG shows severe HCRF with pH 7.05/92 Trial bipap 20/ repeat ABG, if not improved will need to intubate Solumedrol IV 40 q daily Azithro for COPD exasc duonebs around the clock Urine shows TNTC WBC and large Leuk Reema empitic ceftrixone f/u Influenza A/B Some DAHLIA on CKD, possible from dehydration or UTI will hydrate and repaet chem monitor urine output HyperK treated in ED, repeat chem Rest of care as above Hudson Loo MD Pulmonary Critical Care and Sleep Medicine Critical Care Time : 31mins
[2018-02-05] MEDS ORDERED: Influenza Vaccine 60 mcg/0.5 mL SYR (4YR UP) IM ONE (17:45)
[2018-02-05] MEDS ORDERED: Pneumococcal 23-Valent Vaccine IM ONE (17:45)
[2018-02-05 17:57] LABS: ARTERIAL BLOOD GAS HEMOGLOBIN 10.4 g/dL (11.7-17.4); ARTERIAL BLOOD GAS O2 CAPACITY 14.4 mL/dl (16-24); ARTERIAL BLOOD GAS O2 SAT 97.5 % (95-98); ARTERIAL BLOOD GAS PCO2 56 mm/Hg (35-45); ARTERIAL BLOOD GAS TCO2 21.7 mmol.L (22-28)
[2018-02-05] MEDS ORDERED: Sodium Chloride 0.9% 1,000 ML IV SCH (18:00)
[2018-02-05 18:01] LABS: ARTERIAL BLOOD GAS PH 7.16 (7.35-7.45)
[2018-02-05] MEDS: cefTRIAXone 1 gm 1 GM/100 ML BAG IVPB SCH (18:52)
[2018-02-05] MEDS: Azithromycin 500MG/NS 250ml 500 MG/250 ML BAG IVPB SCH (18:53)
[2018-02-05 18:57] LABS: ALBUMIN 3.6 g/dL (3.0-4.8)
[2018-02-05] MEDS: Sodium Bicarbonate 8.4% 150 MEQ in Dextrose 5% In Water 1,000 ML IV SCH (19:19)
[2018-02-05 21:46] LABS: ARTERIAL BLOOD GAS HCO3 19.8 mmol/L (21-28); ARTERIAL BLOOD GAS HEMOGLOBIN 9.8 g/dL (11.7-17.4); ARTERIAL BLOOD GAS O2 CAPACITY 13.5 mL/dl (16-24); ARTERIAL BLOOD GAS O2 CONTENT 13.3 ML/dl (15-23); ARTERIAL BLOOD GAS O2 SAT 98.5 % (95-98); ARTERIAL BLOOD GAS PCO2 53 mm/Hg (35-45); ARTERIAL BLOOD GAS TCO2 21.4 mmol.L (22-28)
[2018-02-05 21:48] LABS: ARTERIAL BLOOD GAS PH 7.18 (7.35-7.45)
[2018-02-05] MEDS: Insulin Reg-LOW-Coverage SC SCH (22:00)
[2018-02-05] MEDS ORDERED: Sod Polystyrene Sulf 15 gm/60 ml Susp PR ONE (23:06)
[2018-02-05] MEDS ORDERED: Albuterol-Ipratrop 3 mg / 0.5 (3 ml) UD IH STA (23:30)
[2018-02-05 23:57] LABS: CALCIUM 8.1 mg/dL (8.4-10.5)
[2018-02-06 00:27] LABS: ARTERIAL BLOOD GAS HCO3 20.8 mmol/L (21-28); ARTERIAL BLOOD GAS HEMOGLOBIN 9.9 g/dL (11.7-17.4); ARTERIAL BLOOD GAS O2 CAPACITY 13.7 mL/dl (16-24); ARTERIAL BLOOD GAS O2 CONTENT 13.5 ML/dl (15-23); ARTERIAL BLOOD GAS O2 SAT 98.6 % (95-98); ARTERIAL BLOOD GAS PCO2 61 mm/Hg (35-45); ARTERIAL BLOOD GAS TCO2 22.7 mmol.L (22-28)
[2018-02-06 01:33] LABS: ARTERIAL BLOOD GAS PH 7.14 (7.35-7.45)
[2018-02-06] MEDS ORDERED: Sodium Chloride 0.9% 500 ML IV STA (02:26)
[2018-02-06 06:05] LABS: ARTERIAL BLOOD GAS HCO3 23.6 mmol/L (21-28); ARTERIAL BLOOD GAS HEMOGLOBIN 9.2 g/dL (11.7-17.4); ARTERIAL BLOOD GAS O2 CAPACITY 12.8 mL/dl (16-24); ARTERIAL BLOOD GAS O2 CONTENT 12.6 ML/dl (15-23); ARTERIAL BLOOD GAS O2 SAT 98.4 % (95-98); ARTERIAL BLOOD GAS PCO2 55 mm/Hg (35-45); ARTERIAL BLOOD GAS PH 7.24 (7.35-7.45); ARTERIAL BLOOD GAS TCO2 25.3 mmol.L (22-28)
[2018-02-06 07:02] LABS: BASO # 0.01 K/mm3 (0.0-2.0); BASO % 0.1 % (0.0-3.0); GRAN # 7.03 (1.4-6.5); GRAN % 90.2 % (50.0-68.0); HEMOGLOBIN 9.3 g/dL (12.0-16.0); LYMPH # 0.6 (1.2-3.4); LYMPH % 8.2 % (22.0-35.0); MEAN CELL VOLUME 92.1 fl (80.0-105.0); MEAN CORPUSCULAR HEMOGLOBIN 27.4 pg (25.0-35.0); MEAN CORPUSCULAR HGB CONC 29.7 g/dl (31.0-37.0); MEAN PLATELET VOLUME 9.9 fl (7.0-11.0); MONO # 0.1 (0.1-0.6); MONO % 1.5 % (1.0-6.0); PLATELET COUNT 260 10^3/uL (120.0-450.0); WHITE BLOOD COUNT 7.8 10^3/uL (4.5-11.0)
[2018-02-06] MEDS: Sodium Bicarbonate 8.4% 150 MEQ in Dextrose 5% In Water 1,000 ML IV SCH (07:03)
[2018-02-06 07:23] LABS: CREATININE,RANDOM URINE 81 mg/dL
[2018-02-06 07:52] LABS: OSMOLALITY,URINE 393 mosm/kg (300-1000)
[2018-02-06] MEDS: Insulin Reg-LOW-Coverage SC SCH ×4 (07:54→21:58)
[2018-02-06 08:13] LABS: LYMPHOCYTE 9 % (22.0-35.0); MONOCYTE 1 % (1.0-6.0); NEUTROPHIL 90 % (50.0-70.0); PLATELET ESTIMATE NORMAL (NORMAL)
[2018-02-06 08:17] LABS: ALBUMIN 3.1 g/dL (3.0-4.8)
[2018-02-06] MEDS ORDERED: methylPREDNISolone 40 MG in Sodium Chloride 0.9% 100 ML IVPB SCH (10:00)
[2018-02-06] MEDS: MethylPREDNISolone 40 mg Vial IVP SCH (10:07)
[2018-02-06] MEDS: Azithromycin 500MG/NS 250ml 500 MG/250 ML BAG IVPB SCH (10:08)
[2018-02-06] MEDS: cefTRIAXone 1 gm 1 GM/100 ML BAG IVPB SCH (10:08)
--- NOTE | 2018-02-06 10:24 | CP.CCUPN ---
<Jarocho Van - Last Filed: 02/06/18 12:35> CCU Subjective - Physician Review Subjective (Free Text): Patient seen and examined at bedside. She is alert and oriented today. There is no overnight events. No complains of chest pain, palpitation, fever, chills. Still on BiPAP 03/03/50% CCU Objective - Vital Signs / Intake & Output Vital Signs (Last 4 hours): Vital Signs Pulse Resp BP Pulse Ox 02/06/18 08:40 107 H 02/06/18 08:37 105 H 26 H 150/111 H 100 02/06/18 07:26 102 H 13 122/56 L 100 02/06/18 07:25 83 68 H 02/06/18 07:23 102 H 21 02/06/18 07:22 90 73 H 02/06/18 07:21 81 77 H 02/06/18 07:20 99 H 02/06/18 07:19 92 H 19 02/06/18 07:18 99 H 33 H 02/06/18 07:17 98 H 24 02/06/18 07:16 98 H 30 H 02/06/18 07:15 98 H 28 H 02/06/18 07:14 91 H 22 02/06/18 07:13 100 H 21 02/06/18 07:12 97 H 14 02/06/18 07:11 97 H 13 02/06/18 07:10 88 57 H 02/06/18 07:09 98 H 17 02/06/18 07:08 100 H 14 02/06/18 07:07 100 H 18 02/06/18 07:06 98 H 23 02/06/18 07:05 94 H 39 H 02/06/18 07:04 93 H 25 H 02/06/18 07:03 94 H 19 02/06/18 07:00 94 H 20 139/48 L 100 02/06/18 06:50 83 16 98 02/06/18 06:40 79 19 99 02/06/18 06:30 87 19 97 Intake and Output (Last 8hrs): Intake & Output 02/05/18 02/06/18 02/06/18 22:59 06:59 14:59 Intake Total 1400 2700 Output Total 800 Balance 1400 1900 Weight 150 lb Intake: IV 1400 1200 Right Proximal Port 1400 1200 Other 1500 Output: Urine 800 Urethral (Ray) 800 Other: # Voids Urethral (Ray) 1 # Bowel Movements 1 1 - Physical Exam Head: Positive for: Atraumatic, Normocephalic Pupils: Positive for: Pinpoint (and constricted, bilaterally) Extroacular Muscles: Positive for: EOMI Conjunctiva: Positive for: Normal Mouth: Positive for: Moist Mucous Membranes Neck: Positive for: Normal Range of Motion Respiratory/Chest: Positive for: Clear to Auscultation, Good Air Exchange. Negative for: Respiratory Distress, Accessory Muscle Use Cardiovascular: Positive for: Regular Rate and Rhythm, Normal S1, S2. Negative for: Murmurs Abdomen: Negative for: Tenderness, Distention, Peritoneal Signs Back: Positive for: Normal Inspection Upper Extremity: Positive for: Normal Inspection. Negative for: Cyanosis, Edema Lower Extremity: Positive for: Other (some venastasis bilaterally) Neurological: Positive for: GCS=15, CN II-XII Intact, Speech Normal Skin: Positive for: Warm, Dry, Normal Color. Negative for: Rashes Psychiatric: Positive for: Alert, Oriented x 3 - Medications Active Medications: Active Medications Generic Name Dose Route Start Last Admin Trade Name Freq PRN Reason Stop Dose Admin Famotidine 10 mg 02/06/18 10:00 02/06/18 10:07 Pepcid IVP 10 mg DAILY LUCIANO Administration Ceftriaxone Sodium 1 gm in 100 mls @ 100 mls/hr 02/05/18 17:30 02/06/18 10:08 Rocephin 1 Gram Ivpb IVPB 100 mls/hr DAILY LUCIANO Administration Protocol Azithromycin 500 mg in 250 mls @ 167 mls/hr 02/05/18 17:30 02/06/18 10:08 Zithromax 500mg In Ns IVPB 167 mls/hr DAILY LUCIANO Administration Protocol Sodium Bicarbonate 150 meq/ 1,150 mls @ 100 mls/hr 02/05/18 18:45 02/06/18 07:03 Dextrose IV 100 mls/hr .[id number] LUCIANO Administration Insulin Detemir 20 unit 02/06/18 22:00 Levemir SC HS LUCIANO Insulin Human Regular 0 units 02/05/18 22:00 02/06/18 07:54 Humulin R Low SC 2 u ACHS LUCIANO Administration Protocol Methylprednisolone 40 mg 02/06/18 10:00 02/06/18 10:07 Solu-Medrol IVP 40 mg DAILY LUCIANO Administration - Patient Studies Lab Studies: Lab Studies 02/06/18 02/06/18 02/06/18 Range/Units 06:55 06:55 05:50 WBC 7.8 D (4.5-11.0) 10^3/uL RBC 3.40 L (3.5-6.1) 10^6/uL Hgb 9.3 L (12.0-16.0) g/dL Hct 31.3 L (36.0-48.0) % MCV 92.1 (80.0-105.0) fl MCH 27.4 (25.0-35.0) pg MCHC 29.7 L (31.0-37.0) g/dl RDW 15.0 H (11.5-14.5) % Plt Count 260 (120.0-450.0) 10^3/uL MPV 9.9 (7.0-11.0) fl Gran % 90.2 H (50.0-68.0) % Lymph % (Auto) 8.2 L (22.0-35.0) % [place] % (Auto) 1.5 (1.0-6.0) % Eos % (Auto) 0.0 L (1.5-5.0) % Baso % (Auto) 0.1 (0.0-3.0) % Gran # 7.03 H (1.4-6.5) Lymph # (Auto) 0.6 L (1.2-3.4) [place] # (Auto) 0.1 (0.1-0.6) Eos # (Auto) 0.0 (0.0-0.7) Baso # (Auto) 0.01 (0.0-2.0) K/mm3 Neutrophils % (Manual) 90 H (50.0-70.0) % Lymphocytes % (Manual) 9 L (22.0-35.0) % Monocytes % (Manual) 1 (1.0-6.0) % Platelet Evaluation Normal (NORMAL) PT (9.4-12.5) SECONDS INR APTT (25.1-36.5) Seconds pCO2 55 H (35-45) mm/Hg pO2 90.0 (30-55) mm/Hg HCO3 23.6 (21-28) mmol/L ABG pH 7.24 L (7.35-7.45) ABG Total CO2 25.3 (22-28) mmol.L ABG O2 Saturation 98.4 H (95-98) % ABG O2 Content 12.6 L (15-23) ML/dl ABG Base Excess -4.0 L (-2.0-3.0) mmol/L ABG Hemoglobin 9.2 L (11.7-17.4) g/dL ABG Carboxyhemoglobin 1.5 (0.5-1.5) % POC ABG HHb (Measured) 1.6 (0-5) % ABG Methemoglobin 0.9 (0.0-3.0) % ABG O2 Capacity 12.8 L (16-24) mL/dl VBG pH (7.32-7.43) VBG pCO2 (40-60) VBG HCO3 (21-28) mmol/l VBG Total CO2 (22-28) mmol.L VBG O2 Sat (Calc) (40-65) % VBG Base Excess (0.0-2.0) mmol/L VBG Potassium (3.6-5.2) mmol/L Hgb O2 Saturation 96.0 (95.0-98.0) % Sodium 147 (132-148) mmol/L Chloride 113 H (98-107) mmol/L Glucose (65-105) mg/dl Lactate (0.7-2.1) mmol/L FiO2 40.0 % Potassium 4.7 (3.6-5.0) mmol/L Carbon Dioxide 25 (21-33) mmol/L Anion Gap 14 (10-20) BUN 74 H (7-21) mg/dL Creatinine 2.5 H (0.7-1.2) mg/dl Est GFR ( Amer) 24 Est GFR (Non-Af Amer) 20 POC Glucose (mg/dL) (65-110) mg/dL Random Glucose 331 H* (70-110) mg/dL Calcium 8.0 L (8.4-10.5) mg/dL Phosphorus (2.5-4.5) mg/dL Magnesium (1.7-2.2) mg/dL Total Bilirubin 0.1 L (0.2-1.3) mg/dL AST 12 L D (14-36) U/L ALT 15 (7-56) U/L Alkaline Phosphatase 78 (38-126) U/L Ammonia (9-33) umol/L Lactate Dehydrogenase (333-699) U/L Total Creatine Kinase (35-230) U/L Troponin I ng/mL Total Protein 6.3 (5.8-8.3) g/dL Albumin 3.1 (3.0-4.8) g/dL Globulin 3.2 gm/dL Albumin/Globulin Ratio 1.0 L (1.1-1.8) Venous Blood Potassium (3.6-5.2) mmol/L Urine Color (YELLOW) Urine Appearance (CLEAR) Urine pH (4.7-8.0) Ur Specific [place] (1.005-1.035) Urine Protein (<30 mg/dL) mg/dL Urine Glucose (UA) (NEGATIVE) mg/dL Urine Ketones (NEGATIVE) mg/dL Urine Blood (NEGATIVE) Urine Nitrate (NEGATIVE) Urine Bilirubin (NEGATIVE) Urine Urobilinogen (<1 E.U./dL) E.U./dL Ur Leukocyte Esterase (NEGATIVE) [place]/uL Urine RBC (0-2) /hpf Urine WBC (0-6) /hpf Ur Epithelial Cells (0-5) /hpf Urine Bacteria (NEG) Urine Other Urine Osmolality (300-1000) mosm/kg Ur Random Creatinine mg/dL Ur Random Sodium meq/L Ur Random Urea Nitrogn mg/dL Urine Opiates Screen (NEGATIVE) Urine Methadone Screen (NEGATIVE) Acetaminophen (10.0-20.0) ug/ml Ur Barbiturates Screen (NEGATIVE) Ur Phencyclidine Scrn (NEGATIVE) Ur Amphetamines Screen (NEGATIVE) U Benzodiazepines Scrn (NEGATIVE) U Oth Cocaine Metabols (NEGATIVE) U Cannabinoids Screen (NEGATIVE) Alcohol, Quantitative (0-10) mg/dL Influenza Typ A,B (EIA) (NEGATIVE) 02/06/18 02/05/18 02/05/18 Range/Units 00:20 23:10 21:56 WBC (4.5-11.0) 10^3/uL RBC (3.5-6.1) 10^6/uL Hgb (12.0-16.0) g/dL Hct (36.0-48.0) % MCV (80.0-105.0) fl MCH (25.0-35.0) pg MCHC (31.0-37.0) g/dl RDW (11.5-14.5) % Plt Count (120.0-450.0) 10^3/uL MPV (7.0-11.0) fl Gran % (50.0-68.0) % Lymph % (Auto) (22.0-35.0) % [place] % (Auto) (1.0-6.0) % Eos % (Auto) (1.5-5.0) % Baso % (Auto) (0.0-3.0) % Gran # (1.4-6.5) Lymph # (Auto) (1.2-3.4) [place] # (Auto) (0.1-0.6) Eos # (Auto) (0.0-0.7) Baso # (Auto) (0.0-2.0) K/mm3 Neutrophils % (Manual) (50.0-70.0) % Lymphocytes % (Manual) (22.0-35.0) % Monocytes % (Manual) (1.0-6.0) % Platelet Evaluation (NORMAL) PT (9.4-12.5) SECONDS INR APTT (25.1-36.5) Seconds pCO2 61 H (35-45) mm/Hg pO2 105.0 H (30-55) mm/Hg HCO3 20.8 L (21-28) mmol/L ABG pH 7.14 L* (7.35-7.45) ABG Total CO2 22.7 (22-28) mmol.L ABG O2 Saturation 98.6 H (95-98) % ABG O2 Content 13.5 L (15-23) ML/dl ABG Base Excess -8.3 L (-2.0-3.0) mmol/L ABG Hemoglobin 9.9 L (11.7-17.4) g/dL ABG Carboxyhemoglobin 1.5 (0.5-1.5) % POC ABG HHb (Measured) 1.4 (0-5) % ABG Methemoglobin 1.1 (0.0-3.0) % ABG O2 Capacity 13.7 L (16-24) mL/dl VBG pH (7.32-7.43) VBG pCO2 (40-60) VBG HCO3 (21-28) mmol/l VBG Total CO2 (22-28) mmol.L VBG O2 Sat (Calc) (40-65) % VBG Base Excess (0.0-2.0) mmol/L VBG Potassium (3.6-5.2) mmol/L Hgb O2 Saturation 96.0 (95.0-98.0) % Sodium 145 (132-148) mmol/L Chloride 117 H (98-107) mmol/L Glucose (65-105) mg/dl Lactate (0.7-2.1) mmol/L FiO2 40.0 % Potassium 5.6 H* (3.6-5.0) mmol/L Carbon Dioxide 21 (21-33) mmol/L Anion Gap 12 (10-20) BUN 76 H (7-21) mg/dL Creatinine 2.7 H (0.7-1.2) mg/dl Est GFR ( Amer) 22 Est GFR (Non-Af Amer) 18 POC Glucose (mg/dL) (65-110) mg/dL Random Glucose 290 H (70-110) mg/dL Calcium 8.1 L (8.4-10.5) mg/dL Phosphorus (2.5-4.5) mg/dL Magnesium (1.7-2.2) mg/dL Total Bilirubin (0.2-1.3) mg/dL AST (14-36) U/L ALT (7-56) U/L Alkaline Phosphatase (38-126) U/L Ammonia (9-33) umol/L Lactate Dehydrogenase (333-699) U/L Total Creatine Kinase (35-230) U/L Troponin I ng/mL Total Protein (5.8-8.3) g/dL Albumin (3.0-4.8) g/dL Globulin gm/dL Albumin/Globulin Ratio (1.1-1.8) Venous Blood Potassium (3.6-5.2) mmol/L Urine Color (YELLOW) Urine Appearance (CLEAR) Urine pH (4.7-8.0) Ur Specific [place] (1.005-1.035) Urine Protein (<30 mg/dL) mg/dL Urine Glucose (UA) (NEGATIVE) mg/dL Urine Ketones (NEGATIVE) mg/dL Urine Blood (NEGATIVE) Urine Nitrate (NEGATIVE) Urine Bilirubin (NEGATIVE) Urine Urobilinogen (<1 E.U./dL) E.U./dL Ur Leukocyte Esterase (NEGATIVE) [place]/uL Urine RBC (0-2) /hpf Urine WBC (0-6) /hpf Ur Epithelial Cells (0-5) /hpf Urine Bacteria (NEG) Urine Other Urine Osmolality (300-1000) mosm/kg Ur Random Creatinine mg/dL Ur Random Sodium meq/L Ur Random Urea Nitrogn mg/dL Urine Opiates Screen (NEGATIVE) Urine Methadone Screen (NEGATIVE) Acetaminophen (10.0-20.0) ug/ml Ur Barbiturates Screen (NEGATIVE) Ur Phencyclidine Scrn (NEGATIVE) Ur Amphetamines Screen (NEGATIVE) U Benzodiazepines Scrn (NEGATIVE) U Oth Cocaine Metabols (NEGATIVE) U Cannabinoids Screen (NEGATIVE) Alcohol, Quantitative (0-10) mg/dL Influenza Typ A,B (EIA) Negative for flu a/b (NEGATIVE) 02/05/18 02/05/18 02/05/18 Range/Units 21:52 21:40 21:08 WBC (4.5-11.0) 10^3/uL RBC (3.5-6.1) 10^6/uL Hgb (12.0-16.0) g/dL Hct (36.0-48.0) % MCV (80.0-105.0) fl MCH (25.0-35.0) pg MCHC (31.0-37.0) g/dl RDW (11.5-14.5) % Plt Count (120.0-450.0) 10^3/uL MPV (7.0-11.0) fl Gran % (50.0-68.0) % Lymph % (Auto) (22.0-35.0) % [place] % (Auto) (1.0-6.0) % Eos % (Auto) (1.5-5.0) % Baso % (Auto) (0.0-3.0) % Gran # (1.4-6.5) Lymph # (Auto) (1.2-3.4) [place] # (Auto) (0.1-0.6) Eos # (Auto) (0.0-0.7) Baso # (Auto) (0.0-2.0) K/mm3 Neutrophils % (Manual) (50.0-70.0) % Lymphocytes % (Manual) (22.0-35.0) % Monocytes % (Manual) (1.0-6.0) % Platelet Evaluation (NORMAL) PT (9.4-12.5) SECONDS INR APTT (25.1-36.5) Seconds pCO2 53 H (35-45) mm/Hg pO2 97.0 (30-55) mm/Hg HCO3 19.8 L (21-28) mmol/L ABG pH 7.18 L* (7.35-7.45) ABG Total CO2 21.4 L (22-28) mmol.L ABG O2 Saturation 98.5 H (95-98) % ABG O2 Content 13.3 L (15-23) ML/dl ABG Base Excess -8.4 L (-2.0-3.0) mmol/L ABG Hemoglobin 9.8 L (11.7-17.4) g/dL ABG Carboxyhemoglobin 1.7 H (0.5-1.5) % POC ABG HHb (Measured) 1.5 (0-5) % ABG Methemoglobin 1.1 (0.0-3.0) % ABG O2 Capacity 13.5 L (16-24) mL/dl VBG pH (7.32-7.43) VBG pCO2 (40-60) VBG HCO3 (21-28) mmol/l VBG Total CO2 (22-28) mmol.L VBG O2 Sat (Calc) (40-65) % VBG Base Excess (0.0-2.0) mmol/L VBG Potassium (3.6-5.2) mmol/L Hgb O2 Saturation 95.7 (95.0-98.0) % Sodium (132-148) mmol/L Chloride (98-107) mmol/L Glucose (65-105) mg/dl Lactate (0.7-2.1) mmol/L FiO2 40.0 % Potassium (3.6-5.0) mmol/L Carbon Dioxide (21-33) mmol/L Anion Gap (10-20) BUN (7-21) mg/dL Creatinine (0.7-1.2) mg/dl Est GFR ( Amer) Est GFR (Non-Af Amer) POC Glucose (mg/dL) 268 H (65-110) mg/dL Random Glucose (70-110) mg/dL Calcium (8.4-10.5) mg/dL Phosphorus (2.5-4.5) mg/dL Magnesium (1.7-2.2) mg/dL Total Bilirubin (0.2-1.3) mg/dL AST (14-36) U/L ALT (7-56) U/L Alkaline Phosphatase (38-126) U/L Ammonia (9-33) umol/L Lactate Dehydrogenase (333-699) U/L Total Creatine Kinase (35-230) U/L Troponin I ng/mL Total Protein (5.8-8.3) g/dL Albumin (3.0-4.8) g/dL Globulin gm/dL Albumin/Globulin Ratio (1.1-1.8) Venous Blood Potassium (3.6-5.2) mmol/L Urine Color (YELLOW) Urine Appearance (CLEAR) Urine pH (4.7-8.0) Ur Specific [place] (1.005-1.035) Urine Protein (<30 mg/dL) mg/dL Urine Glucose (UA) (NEGATIVE) mg/dL Urine Ketones (NEGATIVE) mg/dL Urine Blood (NEGATIVE) Urine Nitrate (NEGATIVE) Urine Bilirubin (NEGATIVE) Urine Urobilinogen (<1 E.U./dL) E.U./dL Ur Leukocyte Esterase (NEGATIVE) [place]/uL Urine RBC (0-2) /hpf Urine WBC (0-6) /hpf Ur Epithelial Cells (0-5) /hpf Urine Bacteria (NEG) Urine Other Urine Osmolality 393 (300-1000) mosm/kg Ur Random Creatinine mg/dL Ur Random Sodium 35 meq/L Ur Random Urea Nitrogn mg/dL Urine Opiates Screen (NEGATIVE) Urine Methadone Screen (NEGATIVE) Acetaminophen (10.0-20.0) ug/ml Ur Barbiturates Screen (NEGATIVE) Ur Phencyclidine Scrn (NEGATIVE) Ur Amphetamines Screen (NEGATIVE) U Benzodiazepines Scrn (NEGATIVE) U Oth Cocaine Metabols (NEGATIVE) U Cannabinoids Screen (NEGATIVE) Alcohol, Quantitative (0-10) mg/dL Influenza Typ A,B (EIA) (NEGATIVE) 02/05/18 02/05/18 02/05/18 Range/Units 21:08 18:30 17:45 WBC (4.5-11.0) 10^3/uL RBC (3.5-6.1) 10^6/uL Hgb (12.0-16.0) g/dL Hct (36.0-48.0) % MCV (80.0-105.0) fl MCH (25.0-35.0) pg MCHC (31.0-37.0) g/dl RDW (11.5-14.5) % Plt Count (120.0-450.0) 10^3/uL MPV (7.0-11.0) fl Gran % (50.0-68.0) % Lymph % (Auto) (22.0-35.0) % [place] % (Auto) (1.0-6.0) % Eos % (Auto) (1.5-5.0) % Baso % (Auto) (0.0-3.0) % Gran # (1.4-6.5) Lymph # (Auto) (1.2-3.4) [place] # (Auto) (0.1-0.6) Eos # (Auto) (0.0-0.7) Baso # (Auto) (0.0-2.0) K/mm3 Neutrophils % (Manual) (50.0-70.0) % Lymphocytes % (Manual) (22.0-35.0) % Monocytes % (Manual) (1.0-6.0) % Platelet Evaluation (NORMAL) PT (9.4-12.5) SECONDS INR APTT (25.1-36.5) Seconds pCO2 56 H (35-45) mm/Hg pO2 83.0 (30-55) mm/Hg HCO3 20.0 L (21-28) mmol/L ABG pH 7.16 L* (7.35-7.45) ABG Total CO2 21.7 L (22-28) mmol.L ABG O2 Saturation 97.5 (95-98) % ABG O2 Content 14.0 L (15-23) ML/dl ABG Base Excess -8.7 L (-2.0-3.0) mmol/L ABG Hemoglobin 10.4 L (11.7-17.4) g/dL ABG Carboxyhemoglobin 1.7 H (0.5-1.5) % POC ABG HHb (Measured) 2.4 (0-5) % ABG Methemoglobin 1.1 (0.0-3.0) % ABG O2 Capacity 14.4 L (16-24) mL/dl VBG pH (7.32-7.43) VBG pCO2 (40-60) VBG HCO3 (21-28) mmol/l VBG Total CO2 (22-28) mmol.L VBG O2 Sat (Calc) (40-65) % VBG Base Excess (0.0-2.0) mmol/L VBG Potassium (3.6-5.2) mmol/L Hgb O2 Saturation 94.8 L (95.0-98.0) % Sodium 146 (132-148) mmol/L Chloride 115 H (98-107) mmol/L Glucose (65-105) mg/dl Lactate (0.7-2.1) mmol/L FiO2 40.0 % Potassium 5.7 H* (3.6-5.0) mmol/L Carbon Dioxide 22 (21-33) mmol/L Anion Gap 15 (10-20) BUN 79 H (7-21) mg/dL Creatinine 2.9 H (0.7-1.2) mg/dl Est GFR ( Amer) 20 Est GFR (Non-Af Amer) 17 POC Glucose (mg/dL) (65-110) mg/dL Random Glucose 229 H (70-110) mg/dL Calcium 9.0 (8.4-10.5) mg/dL Phosphorus (2.5-4.5) mg/dL Magnesium 2.1 (1.7-2.2) mg/dL Total Bilirubin 0.2 (0.2-1.3) mg/dL AST 22 (14-36) U/L ALT 13 (7-56) U/L Alkaline Phosphatase 92 (38-126) U/L Ammonia (9-33) umol/L Lactate Dehydrogenase (333-699) U/L Total Creatine Kinase (35-230) U/L Troponin I ng/mL Total Protein 7.2 (5.8-8.3) g/dL Albumin 3.6 (3.0-4.8) g/dL Globulin 3.6 gm/dL Albumin/Globulin Ratio 1.0 L (1.1-1.8) Venous Blood Potassium (3.6-5.2) mmol/L Urine Color (YELLOW) Urine Appearance (CLEAR) Urine pH (4.7-8.0) Ur Specific [place] (1.005-1.035) Urine Protein (<30 mg/dL) mg/dL Urine Glucose (UA) (NEGATIVE) mg/dL Urine Ketones (NEGATIVE) mg/dL Urine Blood (NEGATIVE) Urine Nitrate (NEGATIVE) Urine Bilirubin (NEGATIVE) Urine Urobilinogen (<1 E.U./dL) E.U./dL Ur Leukocyte Esterase (NEGATIVE) [place]/uL Urine RBC (0-2) /hpf Urine WBC (0-6) /hpf Ur Epithelial Cells (0-5) /hpf Urine Bacteria (NEG) Urine Other Urine Osmolality (300-1000) mosm/kg Ur Random Creatinine 81 mg/dL Ur Random Sodium meq/L Ur Random Urea Nitrogn 579 mg/dL Urine Opiates Screen (NEGATIVE) Urine Methadone Screen (NEGATIVE) Acetaminophen (10.0-20.0) ug/ml Ur Barbiturates Screen (NEGATIVE) Ur Phencyclidine Scrn (NEGATIVE) Ur Amphetamines Screen (NEGATIVE) U Benzodiazepines Scrn (NEGATIVE) U Oth Cocaine Metabols (NEGATIVE) U Cannabinoids Screen (NEGATIVE) Alcohol, Quantitative (0-10) mg/dL Influenza Typ A,B (EIA) (NEGATIVE) 02/05/18 02/05/18 02/05/18 Range/Units 16:20 11:05 11:05 WBC (4.5-11.0) 10^3/uL RBC (3.5-6.1) 10^6/uL Hgb (12.0-16.0) g/dL Hct (36.0-48.0) % MCV (80.0-105.0) fl MCH (25.0-35.0) pg MCHC (31.0-37.0) g/dl RDW (11.5-14.5) % Plt Count (120.0-450.0) 10^3/uL MPV (7.0-11.0) fl Gran % (50.0-68.0) % Lymph % (Auto) (22.0-35.0) % [place] % (Auto) (1.0-6.0) % Eos % (Auto) (1.5-5.0) % Baso % (Auto) (0.0-3.0) % Gran # (1.4-6.5) Lymph # (Auto) (1.2-3.4) [place] # (Auto) (0.1-0.6) Eos # (Auto) (0.0-0.7) Baso # (Auto) (0.0-2.0) K/mm3 Neutrophils % (Manual) (50.0-70.0) % Lymphocytes % (Manual) (22.0-35.0) % Monocytes % (Manual) (1.0-6.0) % Platelet Evaluation (NORMAL) PT (9.4-12.5) SECONDS INR APTT (25.1-36.5) Seconds pCO2 (35-45) mm/Hg pO2 (30-55) mm/Hg HCO3 (21-28) mmol/L ABG pH (7.35-7.45) ABG Total CO2 (22-28) mmol.L ABG O2 Saturation (95-98) % ABG O2 Content (15-23) ML/dl ABG Base Excess (-2.0-3.0) mmol/L ABG Hemoglobin (11.7-17.4) g/dL ABG Carboxyhemoglobin (0.5-1.5) % POC ABG HHb (Measured) (0-5) % ABG Methemoglobin (0.0-3.0) % ABG O2 Capacity (16-24) mL/dl VBG pH (7.32-7.43) VBG pCO2 (40-60) VBG HCO3 (21-28) mmol/l VBG Total CO2 (22-28) mmol.L VBG O2 Sat (Calc) (40-65) % VBG Base Excess (0.0-2.0) mmol/L VBG Potassium (3.6-5.2) mmol/L Hgb O2 Saturation (95.0-98.0) % Sodium (132-148) mmol/L Chloride (98-107) mmol/L Glucose (65-105) mg/dl Lactate (0.7-2.1) mmol/L FiO2 % Potassium (3.6-5.0) mmol/L Carbon Dioxide (21-33) mmol/L Anion Gap (10-20) BUN (7-21) mg/dL Creatinine (0.7-1.2) mg/dl Est GFR ( Amer) Est GFR (Non-Af Amer) POC Glucose (mg/dL) (65-110) mg/dL Random Glucose (70-110) mg/dL Calcium (8.4-10.5) mg/dL Phosphorus (2.5-4.5) mg/dL Magnesium (1.7-2.2) mg/dL Total Bilirubin (0.2-1.3) mg/dL AST (14-36) U/L ALT (7-56) U/L Alkaline Phosphatase (38-126) U/L Ammonia 17 (9-33) umol/L Lactate Dehydrogenase (333-699) U/L Total Creatine Kinase (35-230) U/L Troponin I ng/mL Total Protein (5.8-8.3) g/dL Albumin (3.0-4.8) g/dL Globulin gm/dL Albumin/Globulin Ratio (1.1-1.8) Venous Blood Potassium (3.6-5.2) mmol/L Urine Color Yellow (YELLOW) Urine Appearance Clear (CLEAR) Urine pH 6.0 (4.7-8.0) Ur Specific [place] 1.025 (1.005-1.035) Urine Protein 100 H (<30 mg/dL) mg/dL Urine Glucose (UA) Negative (NEGATIVE) mg/dL Urine Ketones Negative (NEGATIVE) mg/dL Urine Blood Large H (NEGATIVE) Urine Nitrate Negative (NEGATIVE) Urine Bilirubin Negative (NEGATIVE) Urine Urobilinogen 0.2 (<1 E.U./dL) E.U./dL Ur Leukocyte Esterase Moderate H (NEGATIVE) [place]/uL Urine RBC Tntc (0-2) /hpf Urine WBC Tntc (0-6) /hpf Ur Epithelial Cells 4 - 5 (0-5) /hpf Urine Bacteria Large (NEG) Urine Other Uyeast Urine Osmolality (300-1000) mosm/kg Ur Random Creatinine mg/dL Ur Random Sodium meq/L Ur Random Urea Nitrogn mg/dL Urine Opiates Screen Negative (NEGATIVE) Urine Methadone Screen Negative (NEGATIVE) Acetaminophen (10.0-20.0) ug/ml Ur Barbiturates Screen Negative (NEGATIVE) Ur Phencyclidine Scrn Negative (NEGATIVE) Ur Amphetamines Screen Negative (NEGATIVE) U Benzodiazepines Scrn Positive H (NEGATIVE) U Oth Cocaine Metabols Negative (NEGATIVE) U Cannabinoids Screen Negative (NEGATIVE) Alcohol, Quantitative (0-10) mg/dL Influenza Typ A,B (EIA) (NEGATIVE) 02/05/18 02/05/18 02/05/18 Range/Units 10:45 10:45 10:45 WBC (4.5-11.0) 10^3/uL RBC (3.5-6.1) 10^6/uL Hgb (12.0-16.0) g/dL Hct (36.0-48.0) % MCV (80.0-105.0) fl MCH (25.0-35.0) pg MCHC (31.0-37.0) g/dl RDW (11.5-14.5) % Plt Count (120.0-450.0) 10^3/uL MPV (7.0-11.0) fl Gran % (50.0-68.0) % Lymph % (Auto) (22.0-35.0) % [place] % (Auto) (1.0-6.0) % Eos % (Auto) (1.5-5.0) % Baso % (Auto) (0.0-3.0) % Gran # (1.4-6.5) Lymph # (Auto) (1.2-3.4) [place] # (Auto) (0.1-0.6) Eos # (Auto) (0.0-0.7) Baso # (Auto) (0.0-2.0) K/mm3 Neutrophils % (Manual) (50.0-70.0) % Lymphocytes % (Manual) (22.0-35.0) % Monocytes % (Manual) (1.0-6.0) % Platelet Evaluation (NORMAL) PT (9.4-12.5) SECONDS INR APTT (25.1-36.5) Seconds pCO2 (35-45) mm/Hg pO2 110 H (30-55) mm/Hg HCO3 (21-28) mmol/L ABG pH (7.35-7.45) ABG Total CO2 (22-28) mmol.L ABG O2 Saturation (95-98) % ABG O2 Content (15-23) ML/dl ABG Base Excess (-2.0-3.0) mmol/L ABG Hemoglobin (11.7-17.4) g/dL ABG Carboxyhemoglobin (0.5-1.5) % POC ABG HHb (Measured) (0-5) % ABG Methemoglobin (0.0-3.0) % ABG O2 Capacity (16-24) mL/dl VBG pH 7.05 L* (7.32-7.43) VBG pCO2 92.0 H* (40-60) VBG HCO3 25.5 (21-28) mmol/l VBG Total CO2 28.3 H (22-28) mmol.L VBG O2 Sat (Calc) 98.8 H (40-65) % VBG Base Excess -7.1 L (0.0-2.0) mmol/L VBG Potassium 5.8 H (3.6-5.2) mmol/L Hgb O2 Saturation (95.0-98.0) % Sodium 144.0 (132-148) mmol/L Chloride 111.0 H (98-107) mmol/L Glucose 222 H (65-105) mg/dl Lactate 0.4 L (0.7-2.1) mmol/L FiO2 21.0 % Potassium (3.6-5.0) mmol/L Carbon Dioxide (21-33) mmol/L Anion Gap (10-20) BUN (7-21) mg/dL Creatinine (0.7-1.2) mg/dl Est GFR ( Amer) Est GFR (Non-Af Amer) POC Glucose (mg/dL) (65-110) mg/dL Random Glucose (70-110) mg/dL Calcium (8.4-10.5) mg/dL Phosphorus (2.5-4.5) mg/dL Magnesium (1.7-2.2) mg/dL Total Bilirubin (0.2-1.3) mg/dL AST (14-36) U/L ALT (7-56) U/L Alkaline Phosphatase (38-126) U/L Ammonia (9-33) umol/L Lactate Dehydrogenase (333-699) U/L Total Creatine Kinase (35-230) U/L Troponin I ng/mL Total Protein (5.8-8.3) g/dL Albumin (3.0-4.8) g/dL Globulin gm/dL Albumin/Globulin Ratio (1.1-1.8) Venous Blood Potassium 5.8 H (3.6-5.2) mmol/L Urine Color (YELLOW) Urine Appearance (CLEAR) Urine pH (4.7-8.0) Ur Specific [place] (1.005-1.035) Urine Protein (<30 mg/dL) mg/dL Urine Glucose (UA) (NEGATIVE) mg/dL Urine Ketones (NEGATIVE) mg/dL Urine Blood (NEGATIVE) Urine Nitrate (NEGATIVE) Urine Bilirubin (NEGATIVE) Urine Urobilinogen (<1 E.U./dL) E.U./dL Ur Leukocyte Esterase (NEGATIVE) [place]/uL Urine RBC (0-2) /hpf Urine WBC (0-6) /hpf Ur Epithelial Cells (0-5) /hpf Urine Bacteria (NEG) Urine Other Urine Osmolality (300-1000) mosm/kg Ur Random Creatinine mg/dL Ur Random Sodium meq/L Ur Random Urea Nitrogn mg/dL Urine Opiates Screen (NEGATIVE) Urine Methadone Screen (NEGATIVE) Acetaminophen < 10.0 L (10.0-20.0) ug/ml Ur Barbiturates Screen (NEGATIVE) Ur Phencyclidine Scrn (NEGATIVE) Ur Amphetamines Screen (NEGATIVE) U Benzodiazepines Scrn (NEGATIVE) U Oth Cocaine Metabols (NEGATIVE) U Cannabinoids Screen (NEGATIVE) Alcohol, Quantitative < 10 (0-10) mg/dL Influenza Typ A,B (EIA) (NEGATIVE) 02/05/18 02/05/18 02/05/18 Range/Units 10:45 10:45 10:45 WBC 11.7 H (4.5-11.0) 10^3/uL RBC 3.96 (3.5-6.1) 10^6/uL Hgb 10.9 L (12.0-16.0) g/dL Hct 37.6 (36.0-48.0) % MCV 94.9 (80.0-105.0) fl MCH 27.5 (25.0-35.0) pg MCHC 29.0 L (31.0-37.0) g/dl RDW 15.1 H (11.5-14.5) % Plt Count 327 (120.0-450.0) 10^3/uL MPV 10.2 (7.0-11.0) fl Gran % 71.8 H (50.0-68.0) % Lymph % (Auto) 18.5 L (22.0-35.0) % [place] % (Auto) 4.4 (1.0-6.0) % Eos % (Auto) 4.9 (1.5-5.0) % Baso % (Auto) 0.4 (0.0-3.0) % Gran # 8.40 H (1.4-6.5) Lymph # (Auto) 2.2 (1.2-3.4) [place] # (Auto) 0.5 (0.1-0.6) Eos # (Auto) 0.6 (0.0-0.7) Baso # (Auto) 0.05 (0.0-2.0) K/mm3 Neutrophils % (Manual) (50.0-70.0) % Lymphocytes % (Manual) (22.0-35.0) % Monocytes % (Manual) (1.0-6.0) % Platelet Evaluation (NORMAL) PT 12.0 (9.4-12.5) SECONDS INR 1.04 APTT 37.8 H (25.1-36.5) Seconds pCO2 (35-45) mm/Hg pO2 (30-55) mm/Hg HCO3 (21-28) mmol/L ABG pH (7.35-7.45) ABG Total CO2 (22-28) mmol.L ABG O2 Saturation (95-98) % ABG O2 Content (15-23) ML/dl ABG Base Excess (-2.0-3.0) mmol/L ABG Hemoglobin (11.7-17.4) g/dL ABG Carboxyhemoglobin (0.5-1.5) % POC ABG HHb (Measured) (0-5) % ABG Methemoglobin (0.0-3.0) % ABG O2 Capacity (16-24) mL/dl VBG pH (7.32-7.43) VBG pCO2 (40-60) VBG HCO3 (21-28) mmol/l VBG Total CO2 (22-28) mmol.L VBG O2 Sat (Calc) (40-65) % VBG Base Excess (0.0-2.0) mmol/L VBG Potassium (3.6-5.2) mmol/L Hgb O2 Saturation (95.0-98.0) % Sodium 144 (132-148) mmol/L Chloride 114 H (98-107) mmol/L Glucose (65-105) mg/dl Lactate (0.7-2.1) mmol/L FiO2 % Potassium 5.9 H* D (3.6-5.0) mmol/L Carbon Dioxide 23 (21-33) mmol/L Anion Gap 14 (10-20) BUN 78 H (7-21) mg/dL Creatinine 2.8 H (0.7-1.2) mg/dl Est GFR ( Amer) 21 Est GFR (Non-Af Amer) 17 POC Glucose (mg/dL) (65-110) mg/dL Random Glucose 211 H (70-110) mg/dL Calcium 9.1 (8.4-10.5) mg/dL Phosphorus 6.1 H (2.5-4.5) mg/dL Magnesium 2.1 (1.7-2.2) mg/dL Total Bilirubin 0.3 (0.2-1.3) mg/dL AST 15 (14-36) U/L ALT 15 (7-56) U/L Alkaline Phosphatase 102 (38-126) U/L Ammonia (9-33) umol/L Lactate Dehydrogenase 391 (333-699) U/L Total Creatine Kinase 38 (35-230) U/L Troponin I < 0.01 ng/mL Total Protein 7.7 (5.8-8.3) g/dL Albumin 4.0 (3.0-4.8) g/dL Globulin 3.6 gm/dL Albumin/Globulin Ratio 1.1 (1.1-1.8) Venous Blood Potassium (3.6-5.2) mmol/L Urine Color (YELLOW) Urine Appearance (CLEAR) Urine pH (4.7-8.0) Ur Specific [place] (1.005-1.035) Urine Protein (<30 mg/dL) mg/dL Urine Glucose (UA) (NEGATIVE) mg/dL Urine Ketones (NEGATIVE) mg/dL Urine Blood (NEGATIVE) Urine Nitrate (NEGATIVE) Urine Bilirubin (NEGATIVE) Urine Urobilinogen (<1 E.U./dL) E.U./dL Ur Leukocyte Esterase (NEGATIVE) [place]/uL Urine RBC (0-2) /hpf Urine WBC (0-6) /hpf Ur Epithelial Cells (0-5) /hpf Urine Bacteria (NEG) Urine Other Urine Osmolality (300-1000) mosm/kg Ur Random Creatinine mg/dL Ur Random Sodium meq/L Ur Random Urea Nitrogn mg/dL Urine Opiates Screen (NEGATIVE) Urine Methadone Screen (NEGATIVE) Acetaminophen (10.0-20.0) ug/ml Ur Barbiturates Screen (NEGATIVE) Ur Phencyclidine Scrn (NEGATIVE) Ur Amphetamines Screen (NEGATIVE) U Benzodiazepines Scrn (NEGATIVE) U Oth Cocaine Metabols (NEGATIVE) U Cannabinoids Screen (NEGATIVE) Alcohol, Quantitative (0-10) mg/dL Influenza Typ A,B (EIA) (NEGATIVE) Laboratory Results - last 24 hr 02/05/18 02/05/18 02/05/18 10:45 10:45 10:45 WBC 11.7 H RBC 3.96 Hgb 10.9 L Hct 37.6 MCV 94.9 MCH 27.5 MCHC 29.0 L RDW 15.1 H Plt Count 327 MPV 10.2 Gran % 71.8 H Lymph % (Auto) 18.5 L [place] % (Auto) 4.4 Eos % (Auto) 4.9 Baso % (Auto) 0.4 Gran # 8.40 H Lymph # (Auto) 2.2 [place] # (Auto) 0.5 Eos # (Auto) 0.6 Baso # (Auto) 0.05 Neutrophils % (Manual) Lymphocytes % (Manual) Monocytes % (Manual) Platelet Evaluation PT 12.0 INR 1.04 APTT 37.8 H pCO2 pO2 HCO3 ABG pH ABG Total CO2 ABG O2 Saturation ABG O2 Content ABG Base Excess ABG Hemoglobin ABG Carboxyhemoglobin POC ABG HHb (Measured) ABG Methemoglobin ABG O2 Capacity VBG pH VBG pCO2 VBG HCO3 VBG Total CO2 VBG O2 Sat (Calc) VBG Base Excess VBG Potassium Hgb O2 Saturation Sodium 144 Chloride 114 H Glucose Lactate FiO2 Potassium 5.9 H* D Carbon Dioxide 23 Anion Gap 14 BUN 78 H Creatinine 2.8 H Est GFR ( Amer) 21 Est GFR (Non-Af Amer) 17 POC Glucose (mg/dL) Random Glucose 211 H Calcium 9.1 Phosphorus 6.1 H Magnesium 2.1 Total Bilirubin 0.3 AST 15 ALT 15 Alkaline Phosphatase 102 Ammonia Lactate Dehydrogenase 391 Total Creatine Kinase 38 Troponin I < 0.01 Total Protein 7.7 Albumin 4.0 Globulin 3.6 Albumin/Globulin Ratio 1.1 Venous Blood Potassium Urine Color Urine Appearance Urine pH Ur Specific [place] Urine Protein Urine Glucose (UA) Urine Ketones Urine Blood Urine Nitrate Urine Bilirubin Urine Urobilinogen Ur Leukocyte Esterase Urine RBC Urine WBC Ur Epithelial Cells Urine Bacteria Urine Other Urine Osmolality Ur Random Creatinine Ur Random Sodium Ur Random Urea Nitrogn Urine Opiates Screen Urine Methadone Screen Acetaminophen Ur Barbiturates Screen Ur Phencyclidine Scrn Ur Amphetamines Screen U Benzodiazepines Scrn U Oth Cocaine Metabols U Cannabinoids Screen Alcohol, Quantitative Influenza Typ A,B (EIA) 02/05/18 02/05/18 02/05/18 10:45 10:45 10:45 WBC RBC Hgb Hct MCV MCH MCHC RDW Plt Count MPV Gran % Lymph % (Auto) [place] % (Auto) Eos % (Auto) Baso % (Auto) Gran # Lymph # (Auto) [place] # (Auto) Eos # (Auto) Baso # (Auto) Neutrophils % (Manual) Lymphocytes % (Manual) Monocytes % (Manual) Platelet Evaluation PT INR APTT pCO2 pO2 110 H HCO3 ABG pH ABG Total CO2 ABG O2 Saturation ABG O2 Content ABG Base Excess ABG Hemoglobin ABG Carboxyhemoglobin POC ABG HHb (Measured) ABG Methemoglobin ABG O2 Capacity VBG pH 7.05 L* VBG pCO2 92.0 H* VBG HCO3 25.5 VBG Total CO2 28.3 H VBG O2 Sat (Calc) 98.8 H VBG Base Excess -7.1 L VBG Potassium 5.8 H Hgb O2 Saturation Sodium 144.0 Chloride 111.0 H Glucose 222 H Lactate 0.4 L FiO2 21.0 Potassium Carbon Dioxide Anion Gap BUN Creatinine Est GFR ( Amer) Est GFR (Non-Af Amer) POC Glucose (mg/dL) Random Glucose Calcium Phosphorus Magnesium Total Bilirubin AST ALT Alkaline Phosphatase Ammonia Lactate Dehydrogenase Total Creatine Kinase Troponin I Total Protein Albumin Globulin Albumin/Globulin Ratio Venous Blood Potassium 5.8 H Urine Color Urine Appearance Urine pH Ur Specific [place] Urine Protein Urine Glucose (UA) Urine Ketones Urine Blood Urine Nitrate Urine Bilirubin Urine Urobilinogen Ur Leukocyte Esterase Urine RBC Urine WBC Ur Epithelial Cells Urine Bacteria Urine Other Urine Osmolality Ur Random Creatinine Ur Random Sodium Ur Random Urea Nitrogn Urine Opiates Screen Urine Methadone Screen Acetaminophen < 10.0 L Ur Barbiturates Screen Ur Phencyclidine Scrn Ur Amphetamines Screen U Benzodiazepines Scrn U Oth Cocaine Metabols U Cannabinoids Screen Alcohol, Quantitative < 10 Influenza Typ A,B (EIA) 02/05/18 02/05/18 02/05/18 11:05 11:05 16:20 WBC RBC Hgb Hct MCV MCH MCHC RDW Plt Count MPV Gran % Lymph % (Auto) [place] % (Auto) Eos % (Auto) Baso % (Auto) Gran # Lymph # (Auto) [place] # (Auto) Eos # (Auto) Baso # (Auto) Neutrophils % (Manual) Lymphocytes % (Manual) Monocytes % (Manual) Platelet Evaluation PT INR APTT pCO2 pO2 HCO3 ABG pH ABG Total CO2 ABG O2 Saturation ABG O2 Content ABG Base Excess ABG Hemoglobin ABG Carboxyhemoglobin POC ABG HHb (Measured) ABG Methemoglobin ABG O2 Capacity VBG pH VBG pCO2 VBG HCO3 VBG Total CO2 VBG O2 Sat (Calc) VBG Base Excess VBG Potassium Hgb O2 Saturation Sodium Chloride Glucose Lactate FiO2 Potassium Carbon Dioxide Anion Gap BUN Creatinine Est GFR ( Amer) Est GFR (Non-Af Amer) POC Glucose (mg/dL) Random Glucose Calcium Phosphorus Magnesium Total Bilirubin AST ALT Alkaline Phosphatase Ammonia 17 Lactate Dehydrogenase Total Creatine Kinase Troponin I Total Protein Albumin Globulin Albumin/Globulin Ratio Venous Blood Potassium Urine Color Yellow Urine Appearance Clear Urine pH 6.0 Ur Specific [place] 1.025 Urine Protein 100 H Urine Glucose (UA) Negative Urine Ketones Negative Urine Blood Large H Urine Nitrate Negative Urine Bilirubin Negative Urine Urobilinogen 0.2 Ur Leukocyte Esterase Moderate H Urine RBC Tntc Urine WBC Tntc Ur Epithelial Cells 4 - 5 Urine Bacteria Large Urine Other Uyeast Urine Osmolality Ur Random Creatinine Ur Random Sodium Ur Random Urea Nitrogn Urine Opiates Screen Negative Urine Methadone Screen Negative Acetaminophen Ur Barbiturates Screen Negative Ur Phencyclidine Scrn Negative Ur Amphetamines Screen Negative U Benzodiazepines Scrn Positive H U Oth Cocaine Metabols Negative U Cannabinoids Screen Negative Alcohol, Quantitative Influenza Typ A,B (EIA) 02/05/18 02/05/18 02/05/18 17:45 18:30 21:08 WBC RBC Hgb Hct MCV MCH MCHC RDW Plt Count MPV Gran % Lymph % (Auto) [place] % (Auto) Eos % (Auto) Baso % (Auto) Gran # Lymph # (Auto) [place] # (Auto) Eos # (Auto) Baso # (Auto) Neutrophils % (Manual) Lymphocytes % (Manual) Monocytes % (Manual) Platelet Evaluation PT INR APTT pCO2 56 H pO2 83.0 HCO3 20.0 L ABG pH 7.16 L* ABG Total CO2 21.7 L ABG O2 Saturation 97.5 ABG O2 Content 14.0 L ABG Base Excess -8.7 L ABG Hemoglobin 10.4 L ABG Carboxyhemoglobin 1.7 H POC ABG HHb (Measured) 2.4 ABG Methemoglobin 1.1 ABG O2 Capacity 14.4 L VBG pH VBG pCO2 VBG HCO3 VBG Total CO2 VBG O2 Sat (Calc) VBG Base Excess VBG Potassium Hgb O2 Saturation 94.8 L Sodium 146 Chloride 115 H Glucose Lactate FiO2 40.0 Potassium 5.7 H* Carbon Dioxide 22 Anion Gap 15 BUN 79 H Creatinine 2.9 H Est GFR ( Amer) 20 Est GFR (Non-Af Amer) 17 POC Glucose (mg/dL) Random Glucose 229 H Calcium 9.0 Phosphorus Magnesium 2.1 Total Bilirubin 0.2 AST 22 ALT 13 Alkaline Phosphatase 92 Ammonia Lactate Dehydrogenase Total Creatine Kinase Troponin I Total Protein 7.2 Albumin 3.6 Globulin 3.6 Albumin/Globulin Ratio 1.0 L Venous Blood Potassium Urine Color Urine Appearance Urine pH Ur Specific [place] Urine Protein Urine Glucose (UA) Urine Ketones Urine Blood Urine Nitrate Urine Bilirubin Urine Urobilinogen Ur Leukocyte Esterase Urine RBC Urine WBC Ur Epithelial Cells Urine Bacteria Urine Other Urine Osmolality Ur Random Creatinine 81 Ur Random Sodium Ur Random Urea Nitrogn 579 Urine Opiates Screen Urine Methadone Screen Acetaminophen Ur Barbiturates Screen Ur Phencyclidine Scrn Ur Amphetamines Screen U Benzodiazepines Scrn U Oth Cocaine Metabols U Cannabinoids Screen Alcohol, Quantitative Influenza Typ A,B (EIA) 02/05/18 02/05/18 02/05/18 21:08 21:40 21:52 WBC RBC Hgb Hct MCV MCH MCHC RDW Plt Count MPV Gran % Lymph % (Auto) [place] % (Auto) Eos % (Auto) Baso % (Auto) Gran # Lymph # (Auto) [place] # (Auto) Eos # (Auto) Baso # (Auto) Neutrophils % (Manual) Lymphocytes % (Manual) Monocytes % (Manual) Platelet Evaluation PT INR APTT pCO2 53 H pO2 97.0 HCO3 19.8 L ABG pH 7.18 L* ABG Total CO2 21.4 L ABG O2 Saturation 98.5 H ABG O2 Content 13.3 L ABG Base Excess -8.4 L ABG Hemoglobin 9.8 L ABG Carboxyhemoglobin 1.7 H POC ABG HHb (Measured) 1.5 ABG Methemoglobin 1.1 ABG O2 Capacity 13.5 L VBG pH VBG pCO2 VBG HCO3 VBG Total CO2 VBG O2 Sat (Calc) VBG Base Excess VBG Potassium Hgb O2 Saturation 95.7 Sodium Chloride Glucose Lactate FiO2 40.0 Potassium Carbon Dioxide Anion Gap BUN Creatinine Est GFR ( Amer) Est GFR (Non-Af Amer) POC Glucose (mg/dL) 268 H Random Glucose Calcium Phosphorus Magnesium Total Bilirubin AST ALT Alkaline Phosphatase Ammonia Lactate Dehydrogenase Total Creatine Kinase Troponin I Total Protein Albumin Globulin Albumin/Globulin Ratio Venous Blood Potassium Urine Color Urine Appearance Urine pH Ur Specific [place] Urine Protein Urine Glucose (UA) Urine Ketones Urine Blood Urine Nitrate Urine Bilirubin Urine Urobilinogen Ur Leukocyte Esterase Urine RBC Urine WBC Ur Epithelial Cells Urine Bacteria Urine Other Urine Osmolality 393 Ur Random Creatinine Ur Random Sodium 35 Ur Random Urea Nitrogn Urine Opiates Screen Urine Methadone Screen Acetaminophen Ur Barbiturates Screen Ur Phencyclidine Scrn Ur Amphetamines Screen U Benzodiazepines Scrn U Oth Cocaine Metabols U Cannabinoids Screen Alcohol, Quantitative Influenza Typ A,B (EIA) 02/05/1818 02/06/18 21:56 23:10 00:20 WBC RBC Hgb Hct MCV MCH MCHC RDW Plt Count MPV Gran % Lymph % (Auto) [place] % (Auto) Eos % (Auto) Baso % (Auto) Gran # Lymph # (Auto) [place] # (Auto) Eos # (Auto) Baso # (Auto) Neutrophils % (Manual) Lymphocytes % (Manual) Monocytes % (Manual) Platelet Evaluation PT INR APTT pCO2 61 H pO2 105.0 H HCO3 20.8 L ABG pH 7.14 L* ABG Total CO2 22.7 ABG O2 Saturation 98.6 H ABG O2 Content 13.5 L ABG Base Excess -8.3 L ABG Hemoglobin 9.9 L ABG Carboxyhemoglobin 1.5 POC ABG HHb (Measured) 1.4 ABG Methemoglobin 1.1 ABG O2 Capacity 13.7 L VBG pH VBG pCO2 VBG HCO3 VBG Total CO2 VBG O2 Sat (Calc) VBG Base Excess VBG Potassium Hgb O2 Saturation 96.0 Sodium 145 Chloride 117 H Glucose Lactate FiO2 40.0 Potassium 5.6 H* Carbon Dioxide 21 Anion Gap 12 BUN 76 H Creatinine 2.7 H Est GFR ( Amer) 22 Est GFR (Non-Af Amer) 18 POC Glucose (mg/dL) Random Glucose 290 H Calcium 8.1 L Phosphorus Magnesium Total Bilirubin AST ALT Alkaline Phosphatase Ammonia Lactate Dehydrogenase Total Creatine Kinase Troponin I Total Protein Albumin Globulin Albumin/Globulin Ratio Venous Blood Potassium Urine Color Urine Appearance Urine pH Ur Specific [place] Urine Protein Urine Glucose (UA) Urine Ketones Urine Blood Urine Nitrate Urine Bilirubin Urine Urobilinogen Ur Leukocyte Esterase Urine RBC Urine WBC Ur Epithelial Cells Urine Bacteria Urine Other Urine Osmolality Ur Random Creatinine Ur Random Sodium Ur Random Urea Nitrogn Urine Opiates Screen Urine Methadone Screen Acetaminophen Ur Barbiturates Screen Ur Phencyclidine Scrn Ur Amphetamines Screen U Benzodiazepines Scrn U Oth Cocaine Metabols U Cannabinoids Screen Alcohol, Quantitative Influenza Typ A,B (EIA) Negative for flu a/b 02/06/18 02/06/18 02/06/18 05:50 06:55 06:55 WBC 7.8 D RBC 3.40 L Hgb 9.3 L Hct 31.3 L MCV 92.1 MCH 27.4 MCHC 29.7 L RDW 15.0 H Plt Count 260 MPV 9.9 Gran % 90.2 H Lymph % (Auto) 8.2 L [place] % (Auto) 1.5 Eos % (Auto) 0.0 L Baso % (Auto) 0.1 Gran # 7.03 H Lymph # (Auto) 0.6 L [place] # (Auto) 0.1 Eos # (Auto) 0.0 Baso # (Auto) 0.01 Neutrophils % (Manual) 90 H Lymphocytes % (Manual) 9 L Monocytes % (Manual) 1 Platelet Evaluation Normal PT INR APTT pCO2 55 H pO2 90.0 HCO3 23.6 ABG pH 7.24 L ABG Total CO2 25.3 ABG O2 Saturation 98.4 H ABG O2 Content 12.6 L ABG Base Excess -4.0 L ABG Hemoglobin 9.2 L ABG Carboxyhemoglobin 1.5 POC ABG HHb (Measured) 1.6 ABG Methemoglobin 0.9 ABG O2 Capacity 12.8 L VBG pH VBG pCO2 VBG HCO3 VBG Total CO2 VBG O2 Sat (Calc) VBG Base Excess VBG Potassium Hgb O2 Saturation 96.0 Sodium 147 Chloride 113 H Glucose Lactate FiO2 40.0 Potassium 4.7 Carbon Dioxide 25 Anion Gap 14 BUN 74 H Creatinine 2.5 H Est GFR ( Amer) 24 Est GFR (Non-Af Amer) 20 POC Glucose (mg/dL) Random Glucose 331 H* Calcium 8.0 L Phosphorus Magnesium Total Bilirubin 0.1 L AST 12 L D ALT 15 Alkaline Phosphatase 78 Ammonia Lactate Dehydrogenase Total Creatine Kinase Troponin I Total Protein 6.3 Albumin 3.1 Globulin 3.2 Albumin/Globulin Ratio 1.0 L Venous Blood Potassium Urine Color Urine Appearance Urine pH Ur Specific [place] Urine Protein Urine Glucose (UA) Urine Ketones Urine Blood Urine Nitrate Urine Bilirubin Urine Urobilinogen Ur Leukocyte Esterase Urine RBC Urine WBC Ur Epithelial Cells Urine Bacteria Urine Other Urine Osmolality Ur Random Creatinine Ur Random Sodium Ur Random Urea Nitrogn Urine Opiates Screen Urine Methadone Screen Acetaminophen Ur Barbiturates Screen Ur Phencyclidine Scrn Ur Amphetamines Screen U Benzodiazepines Scrn U Oth Cocaine Metabols U Cannabinoids Screen Alcohol, Quantitative Influenza Typ A,B (EIA) EKG/Cardiology Studies: Cardiology / EKG Studies 02/05/18 10:33 ELECTROCARDIOGRAM Stat Comment: Reason For Exam: altered mental status Fingerstick Blood Sugar Results: 278 Critical Care Progress Note - Nutrition Nutrition: Nutrition Category Date Time Status Heart Healthy Diet [DIET] Diets 02/06/18 Breakfast Active Assessment/Plan - Assessment and Plan (Free Text) Assessment: 57 y/o feamle with PMH of COPD, asthma, DM2, breast cancer and xanax use presents with progressive SOB x4 days. Found to have respiratory failure with UDS positive for benzodiazepines. Plan: Neuro: -Patient is alert and oriented x3 talking in full sentences -CT head: no acute findings -B/l pupils miosis, reactive to light Pulm: -Improving respiratory acidosis in the setting of benzodizebine intoxication, COPD exacerbation -On BiPAP: 03/03/50% -Continue BiPAP at night. PRN during the day -ABG: pH 7.24 CO2 55 O2 90 HCO3 23.3 -Maintain O2 sat >90% -Repeat ABG -Continue Solu-medrol 40mg daily -Continue Zithromax 500mg daily -Continue Rocephin 1 gm daily -CXR: no acute finding -Influenza A/B negative Cardio: -EKG: NSR, no ST changes -BP monitoring Endo: -h/o DM2, on insulin -ISS-low -Accucheck -Maintain euglycemia, normothermia Renal: -Hypercalemia corrected -Repeat CMP -DAHLIA likely due to UTI -BUN/Cr: still elevated 74/2.5 baseline 50s/1.5 -Renal U/S pending read : -UDS: positive for benzodiazepines -UA: +LE, WBC -f/u urine culture -Continue Rocephin Infectious: -Afebrile -Blood culture- negative to date -UA: +LE, WBC -Urine culture pending -MRSA screen pending Prophylaxis: DVT ppx: SCD GI ppx: pepcid Patient is DNR/DNI Case reviewed and plan discussed with attending Dr Santiago <Rey Santiago - Last Filed: 02/06/18 17:36> CCU Objective - Vital Signs / Intake & Output Vital Signs (Last 4 hours): Vital Signs Temp Pulse Resp Pulse Ox 02/06/18 17:31 99 F 02/06/18 17:21 111 H 02/06/18 15:42 22 02/06/18 14:20 117 H 18 89 L 02/06/18 14:15 105 H 28 H 02/06/18 14:00 105 H 94 L 02/06/18 13:36 106 H Intake and Output (Last 8hrs): Intake & Output 02/06/18 02/06/18 02/06/18 06:59 14:59 22:59 Intake Total 2700 Output Total 800 Balance 1900 Intake: IV 1200 Right Proximal Port 1200 Other 1500 Output: Urine 800 Urethral (Ray) 800 Other: # Voids Urethral (Ray) 1 # Bowel Movements 1 - Medications Active Medications: Active Medications Generic Name Dose Route Start Last Admin Trade Name Carlyle PRN Reason Stop Dose Admin Alprazolam 0.5 mg 02/06/18 18:00 02/06/18 16:39 Xanax PO 0.5 mg QID [facility] Administration Protocol Famotidine 10 mg 02/06/18 10:00 02/06/18 10:07 Pepcid IVP 10 mg DAILY LUCIANO Administration Heparin Sodium (Porcine) 5,000 units 02/06/18 14:00 02/06/18 13:38 Heparin SC 5,000 units Q8 [facility] Administration Protocol Ceftriaxone Sodium 1 gm in 100 mls @ 100 mls/hr 02/05/18 17:30 02/06/18 10:08 Rocephin 1 Gram Ivpb IVPB 100 mls/hr DAILY [facility] Administration Protocol Azithromycin 500 mg in 250 mls @ 167 mls/hr 02/05/18 17:30 02/06/18 10:08 Zithromax 500mg In Ns IVPB 167 mls/hr DAILY [facility] Administration Protocol Sodium Bicarbonate 150 meq/ 1,150 mls @ 100 mls/hr 02/05/18 18:45 02/06/18 07:03 Dextrose IV 100 mls/hr .[id number] LUCIANO Administration Insulin Detemir 20 unit 02/06/18 22:00 Levemir SC HS [facility] Insulin Human Regular 0 units 02/05/18 22:00 02/06/18 16:32 Humulin R Low SC 5 u ACHS [facility] Administration Protocol Methylprednisolone 40 mg 02/06/18 10:00 02/06/18 10:07 Solu-Medrol IVP 40 mg DAILY [facility] Administration Nicotine 1 patch 02/06/18 15:45 02/06/18 16:31 Nicoderm Cq TD 1 patch DAILY [facility] Administration - Patient Studies Lab Studies: Microbiology Studies 02/05/18 16:10 Blood Culture - Preliminary Blood-Venous NO GROWTH AFTER 24 HOURS 02/05/18 10:45 Blood Culture - Preliminary Blood-Venous NO GROWTH AFTER 24 HOURS Lab Studies 02/06/18 02/06/18 02/06/18 Range/Units 16:05 11:10 07:45 WBC (4.5-11.0) 10^3/uL RBC (3.5-6.1) 10^6/uL Hgb (12.0-16.0) g/dL Hct (36.0-48.0) % MCV (80.0-105.0) fl MCH (25.0-35.0) pg MCHC (31.0-37.0) g/dl RDW (11.5-14.5) % Plt Count (120.0-450.0) 10^3/uL MPV (7.0-11.0) fl Gran % (50.0-68.0) % Lymph % (Auto) (22.0-35.0) % [place] % (Auto) (1.0-6.0) % Eos % (Auto) (1.5-5.0) % Baso % (Auto) (0.0-3.0) % Gran # (1.4-6.5) Lymph # (Auto) (1.2-3.4) [place] # (Auto) (0.1-0.6) Eos # (Auto) (0.0-0.7) Baso # (Auto) (0.0-2.0) K/mm3 Neutrophils % (Manual) (50.0-70.0) % Lymphocytes % (Manual) (22.0-35.0) % Monocytes % (Manual) (1.0-6.0) % Platelet Evaluation (NORMAL) pCO2 (35-45) mm/Hg pO2 (80-100) mm/Hg HCO3 (21-28) mmol/L ABG pH (7.35-7.45) ABG Total CO2 (22-28) mmol.L ABG O2 Saturation (95-98) % ABG O2 Content (15-23) ML/dl ABG Base Excess (-2.0-3.0) mmol/L ABG Hemoglobin (11.7-17.4) g/dL ABG Carboxyhemoglobin (0.5-1.5) % POC ABG HHb (Measured) (0-5) % ABG Methemoglobin (0.0-3.0) % ABG O2 Capacity (16-24) mL/dl Hgb O2 Saturation (95.0-98.0) % FiO2 % Sodium (132-148) mmol/L Potassium (3.6-5.0) mmol/L Chloride (98-107) mmol/L Carbon Dioxide (21-33) mmol/L Anion Gap (10-20) BUN (7-21) mg/dL Creatinine (0.7-1.2) mg/dl Est GFR ( Amer) Est GFR (Non-Af Amer) POC Glucose (mg/dL) 398 H 217 H 278 H (65-110) mg/dL Random Glucose (70-110) mg/dL Calcium (8.4-10.5) mg/dL Magnesium (1.7-2.2) mg/dL Total Bilirubin (0.2-1.3) mg/dL AST (14-36) U/L ALT (7-56) U/L Alkaline Phosphatase (38-126) U/L Total Protein (5.8-8.3) g/dL Albumin (3.0-4.8) g/dL Globulin gm/dL Albumin/Globulin Ratio (1.1-1.8) Urine Color (YELLOW) Urine Appearance (CLEAR) Urine pH (4.7-8.0) Ur Specific [place] (1.005-1.035) Urine Protein (<30 mg/dL) mg/dL Urine Glucose (UA) (NEGATIVE) mg/dL Urine Ketones (NEGATIVE) mg/dL Urine Blood (NEGATIVE) Urine Nitrate (NEGATIVE) Urine Bilirubin (NEGATIVE) Urine Urobilinogen (<1 E.U./dL) E.U./dL Ur Leukocyte Esterase (NEGATIVE) [place]/uL Urine RBC (0-2) /hpf Urine WBC (0-6) /hpf Ur Epithelial Cells (0-5) /hpf Urine Bacteria (NEG) Urine Other Urine Osmolality (300-1000) mosm/kg Ur Random Creatinine mg/dL Ur Random Sodium meq/L Ur Random Urea Nitrogn mg/dL Influenza Typ A,B (EIA) (NEGATIVE) 02/06/18 02/06/18 02/06/18 Range/Units 06:55 06:55 05:50 WBC 7.8 D (4.5-11.0) 10^3/uL RBC 3.40 L (3.5-6.1) 10^6/uL Hgb 9.3 L (12.0-16.0) g/dL Hct 31.3 L (36.0-48.0) % MCV 92.1 (80.0-105.0) fl MCH 27.4 (25.0-35.0) pg MCHC 29.7 L (31.0-37.0) g/dl RDW 15.0 H (11.5-14.5) % Plt Count 260 (120.0-450.0) 10^3/uL MPV 9.9 (7.0-11.0) fl Gran % 90.2 H (50.0-68.0) % Lymph % (Auto) 8.2 L (22.0-35.0) % [place] % (Auto) 1.5 (1.0-6.0) % Eos % (Auto) 0.0 L (1.5-5.0) % Baso % (Auto) 0.1 (0.0-3.0) % Gran # 7.03 H (1.4-6.5) Lymph # (Auto) 0.6 L (1.2-3.4) [place] # (Auto) 0.1 (0.1-0.6) Eos # (Auto) 0.0 (0.0-0.7) Baso # (Auto) 0.01 (0.0-2.0) K/mm3 Neutrophils % (Manual) 90 H (50.0-70.0) % Lymphocytes % (Manual) 9 L (22.0-35.0) % Monocytes % (Manual) 1 (1.0-6.0) % Platelet Evaluation Normal (NORMAL) pCO2 55 H (35-45) mm/Hg pO2 90.0 (80-100) mm/Hg HCO3 23.6 (21-28) mmol/L ABG pH 7.24 L (7.35-7.45) ABG Total CO2 25.3 (22-28) mmol.L ABG O2 Saturation 98.4 H (95-98) % ABG O2 Content 12.6 L (15-23) ML/dl ABG Base Excess -4.0 L (-2.0-3.0) mmol/L ABG Hemoglobin 9.2 L (11.7-17.4) g/dL ABG Carboxyhemoglobin 1.5 (0.5-1.5) % POC ABG HHb (Measured) 1.6 (0-5) % ABG Methemoglobin 0.9 (0.0-3.0) % ABG O2 Capacity 12.8 L (16-24) mL/dl Hgb O2 Saturation 96.0 (95.0-98.0) % FiO2 40.0 % Sodium 147 (132-148) mmol/L Potassium 4.7 (3.6-5.0) mmol/L Chloride 113 H (98-107) mmol/L Carbon Dioxide 25 (21-33) mmol/L Anion Gap 14 (10-20) BUN 74 H (7-21) mg/dL Creatinine 2.5 H (0.7-1.2) mg/dl Est GFR ( Amer) 24 Est GFR (Non-Af Amer) 20 POC Glucose (mg/dL) (65-110) mg/dL Random Glucose 331 H* (70-110) mg/dL Calcium 8.0 L (8.4-10.5) mg/dL Magnesium (1.7-2.2) mg/dL Total Bilirubin 0.1 L (0.2-1.3) mg/dL AST 12 L D (14-36) U/L ALT 15 (7-56) U/L Alkaline Phosphatase 78 (38-126) U/L Total Protein 6.3 (5.8-8.3) g/dL Albumin 3.1 (3.0-4.8) g/dL Globulin 3.2 gm/dL Albumin/Globulin Ratio 1.0 L (1.1-1.8) Urine Color (YELLOW) Urine Appearance (CLEAR) Urine pH (4.7-8.0) Ur Specific [place] (1.005-1.035) Urine Protein (<30 mg/dL) mg/dL Urine Glucose (UA) (NEGATIVE) mg/dL Urine Ketones (NEGATIVE) mg/dL Urine Blood (NEGATIVE) Urine Nitrate (NEGATIVE) Urine Bilirubin (NEGATIVE) Urine Urobilinogen (<1 E.U./dL) E.U./dL Ur Leukocyte Esterase (NEGATIVE) [place]/uL Urine RBC (0-2) /hpf Urine WBC (0-6) /hpf Ur Epithelial Cells (0-5) /hpf Urine Bacteria (NEG) Urine Other Urine Osmolality (300-1000) mosm/kg Ur Random Creatinine mg/dL Ur Random Sodium meq/L Ur Random Urea Nitrogn mg/dL Influenza Typ A,B (EIA) (NEGATIVE) 11/02/05/18 02/05/18 Range/Units 00:20 23:10 21:56 WBC (4.5-11.0) 10^3/uL RBC (3.5-6.1) 10^6/uL Hgb (12.0-16.0) g/dL Hct (36.0-48.0) % MCV (80.0-105.0) fl MCH (25.0-35.0) pg MCHC (31.0-37.0) g/dl RDW (11.5-14.5) % Plt Count (120.0-450.0) 10^3/uL MPV (7.0-11.0) fl Gran % (50.0-68.0) % Lymph % (Auto) (22.0-35.0) % [place] % (Auto) (1.0-6.0) % Eos % (Auto) (1.5-5.0) % Baso % (Auto) (0.0-3.0) % Gran # (1.4-6.5) Lymph # (Auto) (1.2-3.4) [place] # (Auto) (0.1-0.6) Eos # (Auto) (0.0-0.7) Baso # (Auto) (0.0-2.0) K/mm3 Neutrophils % (Manual) (50.0-70.0) % Lymphocytes % (Manual) (22.0-35.0) % Monocytes % (Manual) (1.0-6.0) % Platelet Evaluation (NORMAL) pCO2 61 H (35-45) mm/Hg pO2 105.0 H (80-100) mm/Hg HCO3 20.8 L (21-28) mmol/L ABG pH 7.14 L* (7.35-7.45) ABG Total CO2 22.7 (22-28) mmol.L ABG O2 Saturation 98.6 H (95-98) % ABG O2 Content 13.5 L (15-23) ML/dl ABG Base Excess -8.3 L (-2.0-3.0) mmol/L ABG Hemoglobin 9.9 L (11.7-17.4) g/dL ABG Carboxyhemoglobin 1.5 (0.5-1.5) % POC ABG HHb (Measured) 1.4 (0-5) % ABG Methemoglobin 1.1 (0.0-3.0) % ABG O2 Capacity 13.7 L (16-24) mL/dl Hgb O2 Saturation 96.0 (95.0-98.0) % FiO2 40.0 % Sodium 145 (132-148) mmol/L Potassium 5.6 H* (3.6-5.0) mmol/L Chloride 117 H (98-107) mmol/L Carbon Dioxide 21 (21-33) mmol/L Anion Gap 12 (10-20) BUN 76 H (7-21) mg/dL Creatinine 2.7 H (0.7-1.2) mg/dl Est GFR ( Amer) 22 Est GFR (Non-Af Amer) 18 POC Glucose (mg/dL) (65-110) mg/dL Random Glucose 290 H (70-110) mg/dL Calcium 8.1 L (8.4-10.5) mg/dL Magnesium (1.7-2.2) mg/dL Total Bilirubin (0.2-1.3) mg/dL AST (14-36) U/L ALT (7-56) U/L Alkaline Phosphatase (38-126) U/L Total Protein (5.8-8.3) g/dL Albumin (3.0-4.8) g/dL Globulin gm/dL Albumin/Globulin Ratio (1.1-1.8) Urine Color (YELLOW) Urine Appearance (CLEAR) Urine pH (4.7-8.0) Ur Specific [place] (1.005-1.035) Urine Protein (<30 mg/dL) mg/dL Urine Glucose (UA) (NEGATIVE) mg/dL Urine Ketones (NEGATIVE) mg/dL Urine Blood (NEGATIVE) Urine Nitrate (NEGATIVE) Urine Bilirubin (NEGATIVE) Urine Urobilinogen (<1 E.U./dL) E.U./dL Ur Leukocyte Esterase (NEGATIVE) [place]/uL Urine RBC (0-2) /hpf Urine WBC (0-6) /hpf Ur Epithelial Cells (0-5) /hpf Urine Bacteria (NEG) Urine Other Urine Osmolality (300-1000) mosm/kg Ur Random Creatinine mg/dL Ur Random Sodium meq/L Ur Random Urea Nitrogn mg/dL Influenza Typ A,B (EIA) Negative for flu a/b (NEGATIVE) 02/05/18 02/05/18 02/05/18 Range/Units 21:52 21:40 21:08 WBC (4.5-11.0) 10^3/uL RBC (3.5-6.1) 10^6/uL Hgb (12.0-16.0) g/dL Hct (36.0-48.0) % MCV (80.0-105.0) fl MCH (25.0-35.0) pg MCHC (31.0-37.0) g/dl RDW (11.5-14.5) % Plt Count (120.0-450.0) 10^3/uL MPV (7.0-11.0) fl Gran % (50.0-68.0) % Lymph % (Auto) (22.0-35.0) % [place] % (Auto) (1.0-6.0) % Eos % (Auto) (1.5-5.0) % Baso % (Auto) (0.0-3.0) % Gran # (1.4-6.5) Lymph # (Auto) (1.2-3.4) [place] # (Auto) (0.1-0.6) Eos # (Auto) (0.0-0.7) Baso # (Auto) (0.0-2.0) K/mm3 Neutrophils % (Manual) (50.0-70.0) % Lymphocytes % (Manual) (22.0-35.0) % Monocytes % (Manual) (1.0-6.0) % Platelet Evaluation (NORMAL) pCO2 53 H (35-45) mm/Hg pO2 97.0 (80-100) mm/Hg HCO3 19.8 L (21-28) mmol/L ABG pH 7.18 L* (7.35-7.45) ABG Total CO2 21.4 L (22-28) mmol.L ABG O2 Saturation 98.5 H (95-98) % ABG O2 Content 13.3 L (15-23) ML/dl ABG Base Excess -8.4 L (-2.0-3.0) mmol/L ABG Hemoglobin 9.8 L (11.7-17.4) g/dL ABG Carboxyhemoglobin 1.7 H (0.5-1.5) % POC ABG HHb (Measured) 1.5 (0-5) % ABG Methemoglobin 1.1 (0.0-3.0) % ABG O2 Capacity 13.5 L (16-24) mL/dl Hgb O2 Saturation 95.7 (95.0-98.0) % FiO2 40.0 % Sodium (132-148) mmol/L Potassium (3.6-5.0) mmol/L Chloride (98-107) mmol/L Carbon Dioxide (21-33) mmol/L Anion Gap (10-20) BUN (7-21) mg/dL Creatinine (0.7-1.2) mg/dl Est GFR ( Amer) Est GFR (Non-Af Amer) POC Glucose (mg/dL) 268 H (65-110) mg/dL Random Glucose (70-110) mg/dL Calcium (8.4-10.5) mg/dL Magnesium (1.7-2.2) mg/dL Total Bilirubin (0.2-1.3) mg/dL AST (14-36) U/L ALT (7-56) U/L Alkaline Phosphatase (38-126) U/L Total Protein (5.8-8.3) g/dL Albumin (3.0-4.8) g/dL Globulin gm/dL Albumin/Globulin Ratio (1.1-1.8) Urine Color (YELLOW) Urine Appearance (CLEAR) Urine pH (4.7-8.0) Ur Specific [place] (1.005-1.035) Urine Protein (<30 mg/dL) mg/dL Urine Glucose (UA) (NEGATIVE) mg/dL Urine Ketones (NEGATIVE) mg/dL Urine Blood (NEGATIVE) Urine Nitrate (NEGATIVE) Urine Bilirubin (NEGATIVE) Urine Urobilinogen (<1 E.U./dL) E.U./dL Ur Leukocyte Esterase (NEGATIVE) [place]/uL Urine RBC (0-2) /hpf Urine WBC (0-6) /hpf Ur Epithelial Cells (0-5) /hpf Urine Bacteria (NEG) Urine Other Urine Osmolality 393 (300-1000) mosm/kg Ur Random Creatinine mg/dL Ur Random Sodium 35 meq/L Ur Random Urea Nitrogn mg/dL Influenza Typ A,B (EIA) (NEGATIVE) 02/05/18 02/05/18 02/05/18 Range/Units 21:08 18:30 17:45 WBC (4.5-11.0) 10^3/uL RBC (3.5-6.1) 10^6/uL Hgb (12.0-16.0) g/dL Hct (36.0-48.0) % MCV (80.0-105.0) fl MCH (25.0-35.0) pg MCHC (31.0-37.0) g/dl RDW (11.5-14.5) % Plt Count (120.0-450.0) 10^3/uL MPV (7.0-11.0) fl Gran % (50.0-68.0) % Lymph % (Auto) (22.0-35.0) % Mcnairy % (Auto) (1.0-6.0) % Eos % (Auto) (1.5-5.0) % Baso % (Auto) (0.0-3.0) % Gran # (1.4-6.5) Lymph # (Auto) (1.2-3.4) [place] # (Auto) (0.1-0.6) Eos # (Auto) (0.0-0.7) Baso # (Auto) (0.0-2.0) K/mm3 Neutrophils % (Manual) (50.0-70.0) % Lymphocytes % (Manual) (22.0-35.0) % Monocytes % (Manual) (1.0-6.0) % Platelet Evaluation (NORMAL) pCO2 56 H (35-45) mm/Hg pO2 83.0 (80-100) mm/Hg HCO3 20.0 L (21-28) mmol/L ABG pH 7.16 L* (7.35-7.45) ABG Total CO2 21.7 L (22-28) mmol.L ABG O2 Saturation 97.5 (95-98) % ABG O2 Content 14.0 L (15-23) ML/dl ABG Base Excess -8.7 L (-2.0-3.0) mmol/L ABG Hemoglobin 10.4 L (11.7-17.4) g/dL ABG Carboxyhemoglobin 1.7 H (0.5-1.5) % POC ABG HHb (Measured) 2.4 (0-5) % ABG Methemoglobin 1.1 (0.0-3.0) % ABG O2 Capacity 14.4 L (16-24) mL/dl Hgb O2 Saturation 94.8 L (95.0-98.0) % FiO2 40.0 % Sodium 146 (132-148) mmol/L Potassium 5.7 H* (3.6-5.0) mmol/L Chloride 115 H (98-107) mmol/L Carbon Dioxide 22 (21-33) mmol/L Anion Gap 15 (10-20) BUN 79 H (7-21) mg/dL Creatinine 2.9 H (0.7-1.2) mg/dl Est GFR ( Amer) 20 Est GFR (Non-Af Amer) 17 POC Glucose (mg/dL) (65-110) mg/dL Random Glucose 229 H (70-110) mg/dL Calcium 9.0 (8.4-10.5) mg/dL Magnesium 2.1 (1.7-2.2) mg/dL Total Bilirubin 0.2 (0.2-1.3) mg/dL AST 22 (14-36) U/L ALT 13 (7-56) U/L Alkaline Phosphatase 92 (38-126) U/L Total Protein 7.2 (5.8-8.3) g/dL Albumin 3.6 (3.0-4.8) g/dL Globulin 3.6 gm/dL Albumin/Globulin Ratio 1.0 L (1.1-1.8) Urine Color (YELLOW) Urine Appearance (CLEAR) Urine pH (4.7-8.0) Ur Specific [place] (1.005-1.035) Urine Protein (<30 mg/dL) mg/dL Urine Glucose (UA) (NEGATIVE) mg/dL Urine Ketones (NEGATIVE) mg/dL Urine Blood (NEGATIVE) Urine Nitrate (NEGATIVE) Urine Bilirubin (NEGATIVE) Urine Urobilinogen (<1 E.U./dL) E.U./dL Ur Leukocyte Esterase (NEGATIVE) [place]/uL Urine RBC (0-2) /hpf Urine WBC (0-6) /hpf Ur Epithelial Cells (0-5) /hpf Urine Bacteria (NEG) Urine Other Urine Osmolality (300-1000) mosm/kg Ur Random Creatinine 81 mg/dL Ur Random Sodium meq/L Ur Random Urea Nitrogn 579 mg/dL Influenza Typ A,B (EIA) (NEGATIVE) 02/05/18 Range/Units 11:05 WBC (4.5-11.0) 10^3/uL RBC (3.5-6.1) 10^6/uL Hgb (12.0-16.0) g/dL Hct (36.0-48.0) % MCV (80.0-105.0) fl MCH (25.0-35.0) pg MCHC (31.0-37.0) g/dl RDW (11.5-14.5) % Plt Count (120.0-450.0) 10^3/uL MPV (7.0-11.0) fl Gran % (50.0-68.0) % Lymph % (Auto) (22.0-35.0) % [place] % (Auto) (1.0-6.0) % Eos % (Auto) (1.5-5.0) % Baso % (Auto) (0.0-3.0) % Gran # (1.4-6.5) Lymph # (Auto) (1.2-3.4) [place] # (Auto) (0.1-0.6) Eos # (Auto) (0.0-0.7) Baso # (Auto) (0.0-2.0) K/mm3 Neutrophils % (Manual) (50.0-70.0) % Lymphocytes % (Manual) (22.0-35.0) % Monocytes % (Manual) (1.0-6.0) % Platelet Evaluation (NORMAL) pCO2 (35-45) mm/Hg pO2 (80-100) mm/Hg HCO3 (21-28) mmol/L ABG pH (7.35-7.45) ABG Total CO2 (22-28) mmol.L ABG O2 Saturation (95-98) % ABG O2 Content (15-23) ML/dl ABG Base Excess (-2.0-3.0) mmol/L ABG Hemoglobin (11.7-17.4) g/dL ABG Carboxyhemoglobin (0.5-1.5) % POC ABG HHb (Measured) (0-5) % ABG Methemoglobin (0.0-3.0) % ABG O2 Capacity (16-24) mL/dl Hgb O2 Saturation (95.0-98.0) % FiO2 % Sodium (132-148) mmol/L Potassium (3.6-5.0) mmol/L Chloride (98-107) mmol/L Carbon Dioxide (21-33) mmol/L Anion Gap (10-20) BUN (7-21) mg/dL Creatinine (0.7-1.2) mg/dl Est GFR ( Amer) Est GFR (Non-Af Amer) POC Glucose (mg/dL) (65-110) mg/dL Random Glucose (70-110) mg/dL Calcium (8.4-10.5) mg/dL Magnesium (1.7-2.2) mg/dL Total Bilirubin (0.2-1.3) mg/dL AST (14-36) U/L ALT (7-56) U/L Alkaline Phosphatase (38-126) U/L Total Protein (5.8-8.3) g/dL Albumin (3.0-4.8) g/dL Globulin gm/dL Albumin/Globulin Ratio (1.1-1.8) Urine Color Yellow (YELLOW) Urine Appearance Clear (CLEAR) Urine pH 6.0 (4.7-8.0) Ur Specific [place] 1.025 (1.005-1.035) Urine Protein 100 H (<30 mg/dL) mg/dL Urine Glucose (UA) Negative (NEGATIVE) mg/dL Urine Ketones Negative (NEGATIVE) mg/dL Urine Blood Large H (NEGATIVE) Urine Nitrate Negative (NEGATIVE) Urine Bilirubin Negative (NEGATIVE) Urine Urobilinogen 0.2 (<1 E.U./dL) E.U./dL Ur Leukocyte Esterase Moderate H (NEGATIVE) Ald[place]/uL Urine RBC Tntc (0-2) /hpf Urine WBC Tntc (0-6) /hpf Ur Epithelial Cells 4 - 5 (0-5) /hpf Urine Bacteria Large (NEG) Urine Other Uyeast Urine Osmolality (300-1000) mosm/kg Ur Random Creatinine mg/dL Ur Random Sodium meq/L Ur Random Urea Nitrogn mg/dL Influenza Typ A,B (EIA) (NEGATIVE) Laboratory Results - last 24 hr 02/05/18 02/05/18 02/05/18 11:05 17:45 18:30 WBC RBC Hgb Hct MCV MCH MCHC RDW Plt Count MPV Gran % Lymph % (Auto) [place] % (Auto) Eos % (Auto) Baso % (Auto) Gran # Lymph # (Auto) [place] # (Auto) Eos # (Auto) Baso # (Auto) Neutrophils % (Manual) Lymphocytes % (Manual) Monocytes % (Manual) Platelet Evaluation pCO2 56 H pO2 83.0 HCO3 20.0 L ABG pH 7.16 L* ABG Total CO2 21.7 L ABG O2 Saturation 97.5 ABG O2 Content 14.0 L ABG Base Excess -8.7 L ABG Hemoglobin 10.4 L ABG Carboxyhemoglobin 1.7 H POC ABG HHb (Measured) 2.4 ABG Methemoglobin 1.1 ABG O2 Capacity 14.4 L Hgb O2 Saturation 94.8 L FiO2 40.0 Sodium 146 Potassium 5.7 H* Chloride 115 H Carbon Dioxide 22 Anion Gap 15 BUN 79 H Creatinine 2.9 H Est GFR ( Amer) 20 Est GFR (Non-Af Amer) 17 POC Glucose (mg/dL) Random Glucose 229 H Calcium 9.0 Magnesium 2.1 Total Bilirubin 0.2 AST 22 ALT 13 Alkaline Phosphatase 92 Total Protein 7.2 Albumin 3.6 Globulin 3.6 Albumin/Globulin Ratio 1.0 L Urine Color Yellow Urine Appearance Clear Urine pH 6.0 Ur Specific [place] 1.025 Urine Protein 100 H Urine Glucose (UA) Negative Urine Ketones Negative Urine Blood Large H Urine Nitrate Negative Urine Bilirubin Negative Urine Urobilinogen 0.2 Ur Leukocyte Esterase Moderate H Urine RBC Tntc Urine WBC Tntc Ur Epithelial Cells 4 - 5 Urine Bacteria Large Urine Other Uyeast Urine Osmolality Ur Random Creatinine Ur Random Sodium Ur Random Urea Nitrogn Influenza Typ A,B (EIA) 02/05/18 02/05/18 02/05/18 21:08 21:08 21:40 WBC RBC Hgb Hct MCV MCH MCHC RDW Plt Count MPV Gran % Lymph % (Auto) [place] % (Auto) Eos % (Auto) Baso % (Auto) Gran # Lymph # (Auto) [place] # (Auto) Eos # (Auto) Baso # (Auto) Neutrophils % (Manual) Lymphocytes % (Manual) Monocytes % (Manual) Platelet Evaluation pCO2 53 H pO2 97.0 HCO3 19.8 L ABG pH 7.18 L* ABG Total CO2 21.4 L ABG O2 Saturation 98.5 H ABG O2 Content 13.3 L ABG Base Excess -8.4 L ABG Hemoglobin 9.8 L ABG Carboxyhemoglobin 1.7 H POC ABG HHb (Measured) 1.5 ABG Methemoglobin 1.1 ABG O2 Capacity 13.5 L Hgb O2 Saturation 95.7 FiO2 40.0 Sodium Potassium Chloride Carbon Dioxide Anion Gap BUN Creatinine Est GFR ( Amer) Est GFR (Non-Af Amer) POC Glucose (mg/dL) Random Glucose Calcium Magnesium Total Bilirubin AST ALT Alkaline Phosphatase Total Protein Albumin Globulin Albumin/Globulin Ratio Urine Color Urine Appearance Urine pH Ur Specific [place] Urine Protein Urine Glucose (UA) Urine Ketones Urine Blood Urine Nitrate Urine Bilirubin Urine Urobilinogen Ur Leukocyte Esterase Urine RBC Urine WBC Ur Epithelial Cells Urine Bacteria Urine Other Urine Osmolality 393 Ur Random Creatinine 81 Ur Random Sodium 35 Ur Random Urea Nitrogn 579 Influenza Typ A,B (EIA) 02/05/18 02/05/18 02/05/18 21:52 21:56 23:10 WBC RBC Hgb Hct MCV MCH MCHC RDW Plt Count MPV Gran % Lymph % (Auto) [place] % (Auto) Eos % (Auto) Baso % (Auto) Gran # Lymph # (Auto) [place] # (Auto) Eos # (Auto) Baso # (Auto) Neutrophils % (Manual) Lymphocytes % (Manual) Monocytes % (Manual) Platelet Evaluation pCO2 pO2 HCO3 ABG pH ABG Total CO2 ABG O2 Saturation ABG O2 Content ABG Base Excess ABG Hemoglobin ABG Carboxyhemoglobin POC ABG HHb (Measured) ABG Methemoglobin ABG O2 Capacity Hgb O2 Saturation FiO2 Sodium 145 Potassium 5.6 H* Chloride 117 H Carbon Dioxide 21 Anion Gap 12 BUN 76 H Creatinine 2.7 H Est GFR ( Amer) 22 Est GFR (Non-Af Amer) 18 POC Glucose (mg/dL) 268 H Random Glucose 290 H Calcium 8.1 L Magnesium Total Bilirubin AST ALT Alkaline Phosphatase Total Protein Albumin Globulin Albumin/Globulin Ratio Urine Color Urine Appearance Urine pH Ur Specific [place] Urine Protein Urine Glucose (UA) Urine Ketones Urine Blood Urine Nitrate Urine Bilirubin Urine Urobilinogen Ur Leukocyte Esterase Urine RBC Urine WBC Ur Epithelial Cells Urine Bacteria Urine Other Urine Osmolality Ur Random Creatinine Ur Random Sodium Ur Random Urea Nitrogn Influenza Typ A,B (EIA) Negative for flu a/b 02/06/18 02/06/18 02/06/18 00:20 05:50 06:55 WBC 7.8 D RBC 3.40 L Hgb 9.3 L Hct 31.3 L MCV 92.1 MCH 27.4 MCHC 29.7 L RDW 15.0 H Plt Count 260 MPV 9.9 Gran % 90.2 H Lymph % (Auto) 8.2 L [place] % (Auto) 1.5 Eos % (Auto) 0.0 L Baso % (Auto) 0.1 Gran # 7.03 H Lymph # (Auto) 0.6 L [place] # (Auto) 0.1 Eos # (Auto) 0.0 Baso # (Auto) 0.01 Neutrophils % (Manual) 90 H Lymphocytes % (Manual) 9 L Monocytes % (Manual) 1 Platelet Evaluation Normal pCO2 61 H 55 H pO2 105.0 H 90.0 HCO3 20.8 L 23.6 ABG pH 7.14 L* 7.24 L ABG Total CO2 22.7 25.3 ABG O2 Saturation 98.6 H 98.4 H ABG O2 Content 13.5 L 12.6 L ABG Base Excess -8.3 L -4.0 L ABG Hemoglobin 9.9 L 9.2 L ABG Carboxyhemoglobin 1.5 1.5 POC ABG HHb (Measured) 1.4 1.6 ABG Methemoglobin 1.1 0.9 ABG O2 Capacity 13.7 L 12.8 L Hgb O2 Saturation 96.0 96.0 FiO2 40.0 40.0 Sodium Potassium Chloride Carbon Dioxide Anion Gap BUN Creatinine Est GFR ( Amer) Est GFR (Non-Af Amer) POC Glucose (mg/dL) Random Glucose Calcium Magnesium Total Bilirubin AST ALT Alkaline Phosphatase Total Protein Albumin Globulin Albumin/Globulin Ratio Urine Color Urine Appearance Urine pH Ur Specific [place] Urine Protein Urine Glucose (UA) Urine Ketones Urine Blood Urine Nitrate Urine Bilirubin Urine Urobilinogen Ur Leukocyte Esterase Urine RBC Urine WBC Ur Epithelial Cells Urine Bacteria Urine Other Urine Osmolality Ur Random Creatinine Ur Random Sodium Ur Random Urea Nitrogn Influenza Typ A,B (EIA) 11/02/06/18 02/06/18 06:55 07:45 11:10 WBC RBC Hgb Hct MCV MCH MCHC RDW Plt Count MPV Gran % Lymph % (Auto) [place] % (Auto) Eos % (Auto) Baso % (Auto) Gran # Lymph # (Auto) [place] # (Auto) Eos # (Auto) Baso # (Auto) Neutrophils % (Manual) Lymphocytes % (Manual) Monocytes % (Manual) Platelet Evaluation pCO2 pO2 HCO3 ABG pH ABG Total CO2 ABG O2 Saturation ABG O2 Content ABG Base Excess ABG Hemoglobin ABG Carboxyhemoglobin POC ABG HHb (Measured) ABG Methemoglobin ABG O2 Capacity Hgb O2 Saturation FiO2 Sodium 147 Potassium 4.7 Chloride 113 H Carbon Dioxide 25 Anion Gap 14 BUN 74 H Creatinine 2.5 H Est GFR ( Amer) 24 Est GFR (Non-Af Amer) 20 POC Glucose (mg/dL) 278 H 217 H Random Glucose 331 H* Calcium 8.0 L Magnesium Total Bilirubin 0.1 L AST 12 L D ALT 15 Alkaline Phosphatase 78 Total Protein 6.3 Albumin 3.1 Globulin 3.2 Albumin/Globulin Ratio 1.0 L Urine Color Urine Appearance Urine pH Ur Specific [place] Urine Protein Urine Glucose (UA) Urine Ketones Urine Blood Urine Nitrate Urine Bilirubin Urine Urobilinogen Ur Leukocyte Esterase Urine RBC Urine WBC Ur Epithelial Cells Urine Bacteria Urine Other Urine Osmolality Ur Random Creatinine Ur Random Sodium Ur Random Urea Nitrogn Influenza Typ A,B (EIA) 02/06/18 16:05 WBC RBC Hgb Hct MCV MCH MCHC RDW Plt Count MPV Gran % Lymph % (Auto) [place] % (Auto) Eos % (Auto) Baso % (Auto) Gran # Lymph # (Auto) [place] # (Auto) Eos # (Auto) Baso # (Auto) Neutrophils % (Manual) Lymphocytes % (Manual) Monocytes % (Manual) Platelet Evaluation pCO2 pO2 HCO3 ABG pH ABG Total CO2 ABG O2 Saturation ABG O2 Content ABG Base Excess ABG Hemoglobin ABG Carboxyhemoglobin POC ABG HHb (Measured) ABG Methemoglobin ABG O2 Capacity Hgb O2 Saturation FiO2 Sodium Potassium Chloride Carbon Dioxide Anion Gap BUN Creatinine Est GFR ( Amer) Est GFR (Non-Af Amer) POC Glucose (mg/dL) 398 H Random Glucose Calcium Magnesium Total Bilirubin AST ALT Alkaline Phosphatase Total Protein Albumin Globulin Albumin/Globulin Ratio Urine Color Urine Appearance Urine pH Ur Specific [place] Urine Protein Urine Glucose (UA) Urine Ketones Urine Blood Urine Nitrate Urine Bilirubin Urine Urobilinogen Ur Leukocyte Esterase Urine RBC Urine WBC Ur Epithelial Cells Urine Bacteria Urine Other Urine Osmolality Ur Random Creatinine Ur Random Sodium Ur Random Urea Nitrogn Influenza Typ A,B (EIA) Critical Care Progress Note - Nutrition Nutrition: Nutrition Category Date Time Status Heart Healthy Diet [DIET] Diets 02/06/18 Breakfast Active Attending/Attestation - Attestation I have personally seen and examined this patient.: Yes I have fully participated in the care of the patient.: Yes I have reviewed all pertinent clinical information: Yes Notes (Text): 02/06/18 17:[address] Santiago note
--- NOTE | 2018-02-06 11:40 | PN ---
DATE: 02/06/2018 SUBJECTIVE: The patient was seen and examined at bedside. She is comfortable. She talks in full sentences. She is alert, awake and oriented x3. She is coughing with some phlegm production, but she reports doing much better than yesterday. PHYSICAL EXAMINATION: VITAL SIGNS: Heart rate 107, blood pressure 140/80, respiratory rate 18, oxygen saturation 81% on room air. ENT: Head and neck atraumatic. LUNGS: Few wheezes bilaterally. HEART: Regular rate and rhythm. S1 and S2 normal. ABDOMEN: Soft, nontender and nondistended. MUSCULOSKELETAL: No C/C/E. NEURO: The patient moves all extremities spontaneously. SKIN: Moist. PSYCH: The patient is alert, awake and oriented x3. LABORATORY DATA: WBC 7.8, hemoglobin 9.3, platelet count 260. Sodium 147, potassium 4.7, chloride 113, carbon dioxide 25, BUN 74, creatinine 2.5, glucose 331, AST 12, ALT 15, total bilirubin 0.1. ABG today is 7.24 (up from 7.14), pCO2 55, pO2 90 on 40% FiO2. Influenza negative. U-tox screen positive for benzodiazepines, otherwise negative. MEDICATIONS: Pepcid, Levemir, regular insulin sliding scale low protocol, Solu-Medrol 40 mg IV daily, ceftriaxone, bicarb drip, azithromycin. ASSESSMENT AND PLAN: This is a 57-year-old lady who presented with chronic obstructive pulmonary disease exacerbation requiring noninvasive positive pressure ventilation. She requested to be DNR/DNI. I spoke with son, Sloan and let him know about her decision as well. The patient is capable of making her own decision. We will continue with steroid taper, antibiotics, bronchodilators. The patient would need nighttime BiPAP and intermittent BiPAP as needed. Upon discharge, she would need to see a production supv within 7 days of her discharge and she would benefit from BiPAP at home. I would continue to target euvolemia, euglycemia, normothermia and oxygen saturation more than 90%. We will continue with deep vein thrombosis, gastrointestinal prophylaxis. ccm time 40 min Rey Santiago MD [facility] # [id number] MTDD
--- NOTE | 2018-02-06 14:20 | US ---
Date of service: 02/06/2018 PROCEDURE: Ultrasound of the Kidneys HISTORY: Worsening uremia COMPARISON: Renal ultrasonography 08/22/2016. TECHNIQUE: Sonogram of the kidneys. FINDINGS: RIGHT KIDNEY: Measures: 12.2 x 6.4 x 6.2 cm. Right kidney is normal in size. Limited increase in upper pole right renal cyst is seen in the periphery and measuring 2.2 x 2.3 x 3.0 cm simple in appearance. A grouping of small cysts is seen at the lower pole right kidney also in the periphery measuring 6.8 x 4.0 x 5.3 cm, not dramatically changed in the interval. No definitive solid mass. No hydronephrosis or urolithiasis is appreciated there is no perinephric fluid collection appreciated either. LEFT KIDNEY: Measures: 10.6 x 6.1 x 5.8 cm. The left kidney is normal in size. There is a stable simple midpole cortical cyst identified measuring 2.2 x 1.7 x 1.7 cm. An upper pole minimally complicated cyst contain septations at the superior margins measuring 2.2 x 1.7 x 1.7 cm. No definitive solid mass identified. No hydronephrosis or urolithiasis is appreciated there is no perinephric fluid collection appreciated either. OTHER FINDINGS: None. IMPRESSION: No interval obstructive uropathy bilaterally. Bilateral renal cystic changes are again identified and are not significantly changed in appearance overall. Better appearance of the upper pole left renal cysts indicates limited complexity. Follow-up left renal cyst recommended.
[2018-02-06] MEDS: Insulin Detemir 100 units/ml Vial (Levemir) SC SCH (21:58)
[2018-02-06] MEDS: Albuterol-Ipratrop 3 mg / 0.5 (3 ml) UD IH PRN (23:40)
[2018-02-07] MEDS: Oxycodone/Acetaminophen 5/325 mg Tab PO PRN ×2 (05:44→16:22)
[2018-02-07 06:52] LABS: BASO # 0.01 K/mm3 (0.0-2.0); BASO % 0.1 % (0.0-3.0); EOS % 0.1 % (1.5-5.0); GRAN # 5.14 (1.4-6.5); GRAN % 74.8 % (50.0-68.0); HEMOGLOBIN 9.3 g/dL (12.0-16.0); LYMPH # 1.2 (1.2-3.4); LYMPH % 17.6 % (22.0-35.0); MEAN CELL VOLUME 91.2 fl (80.0-105.0); MEAN CORPUSCULAR HEMOGLOBIN 27.3 pg (25.0-35.0); MEAN CORPUSCULAR HGB CONC 29.9 g/dl (31.0-37.0); MEAN PLATELET VOLUME 9.8 fl (7.0-11.0); MONO # 0.5 (0.1-0.6); MONO % 7.4 % (1.0-6.0); RBC 3.41 10^6/uL (3.5-6.1); RED CELL DISTRIBUTION WIDTH 15.1 % (11.5-14.5); WHITE BLOOD COUNT 6.9 10^3/uL (4.5-11.0)
[2018-02-07 07:01] LABS: ARTERIAL BLOOD GAS HCO3 33.2 mmol/L (21-28); ARTERIAL BLOOD GAS HEMOGLOBIN 8.5 g/dL (11.7-17.4); ARTERIAL BLOOD GAS O2 CAPACITY 11.8 mL/dl (16-24); ARTERIAL BLOOD GAS O2 CONTENT 11.5 ML/dl (15-23); ARTERIAL BLOOD GAS O2 SAT 97.5 % (95-98); ARTERIAL BLOOD GAS PCO2 66 mm/Hg (35-45); ARTERIAL BLOOD GAS PH 7.31 (7.35-7.45); ARTERIAL BLOOD GAS TCO2 35.2 mmol.L (22-28)
--- NOTE | 2018-02-07 07:29 | CP.CCUPN ---
CCU Subjective - Physician Review Subjective (Free Text): Patient seen and examined at bedside. She is alert and oriented today. There is no overnight events. No complains of chest pain, palpitation, fever, chills. Still on BiPAP 03/03/% CCU Objective - Vital Signs / Intake & Output Vital Signs (Last 4 hours): Vital Signs Pulse Resp BP Pulse Ox 02/07/18 06:00 75 02/07/18 05:16 18 02/07/18 04:00 121/66 02/07/18 03:59 90 13 97 Intake and Output (Last 8hrs): Intake & Output 02/06/18 02/07/18 02/07/18 22:59 06:59 14:59 Intake Total 2250 1350 Output Total 1100 1400 Balance 1150 -50 Intake: IV 1550 1200 NaBiCarb 1200 Right Proximal Port 1550 Oral 700 150 Output: Urine 1100 1400 Urethral (Ray) 1100 1400 - Physical Exam Head: Positive for: Atraumatic, Normocephalic Pupils: Positive for: Pinpoint (and constricted, bilaterally) Extroacular Muscles: Positive for: EOMI Conjunctiva: Positive for: Normal Mouth: Positive for: Moist Mucous Membranes Neck: Positive for: Normal Range of Motion Respiratory/Chest: Positive for: Clear to Auscultation, Good Air Exchange. Negative for: Respiratory Distress, Accessory Muscle Use Cardiovascular: Positive for: Regular Rate and Rhythm, Normal S1, S2. Negative for: Murmurs Abdomen: Negative for: Tenderness, Distention, Peritoneal Signs Back: Positive for: Normal Inspection Upper Extremity: Positive for: Normal Inspection. Negative for: Cyanosis, Edema Lower Extremity: Positive for: Other (some venastasis bilaterally) Neurological: Positive for: GCS=15, CN II-XII Intact, Speech Normal Skin: Positive for: Warm, Dry, Normal Color. Negative for: Rashes Psychiatric: Positive for: Alert, Oriented x 3 - Medications Active Medications: Active Medications Generic Name Dose Route Start Last Admin Trade Name Freq PRN Reason Stop Dose Admin Acetaminophen 650 mg 02/06/18 22:32 Tylenol 325mg Tab PO Q4H PRN Pain, Mild (1-3) Acetaminophen 650 mg 02/06/18 22:39 Tylenol 325mg Tab PO Q4H PRN fever 100.4 Albuterol/Ipratropium 3 ml 02/06/18 22:40 11/20/18 23:40 Duoneb 3 Mg/0.5 Mg (3 Ml) Ud IH 3 ml Q2H PRN Administration Shortness of Breath Alprazolam 0.5 mg 02/06/18 18:00 02/06/18 21:25 Xanax PO 0.5 mg QID LUCIANO Administration Protocol Famotidine 10 mg 02/06/18 10:00 02/06/18 10:07 Pepcid IVP 10 mg DAILY LUCIANO Administration Heparin Sodium (Porcine) 5,000 units 02/06/18 14:00 02/07/18 05:10 Heparin SC 5,000 units Q8 LUCIANO Administration Protocol Ceftriaxone Sodium 1 gm in 100 mls @ 100 mls/hr 02/05/18 17:30 02/06/18 10:08 Rocephin 1 Gram Ivpb IVPB 100 mls/hr DAILY LUCIANO Administration Protocol Azithromycin 500 mg in 250 mls @ 167 mls/hr 02/05/18 17:30 02/06/18 10:08 Zithromax 500mg In Ns IVPB 167 mls/hr DAILY LUCIANO Administration Protocol Sodium Bicarbonate 150 meq/ 1,150 mls @ 100 mls/hr 02/05/18 18:45 02/06/18 07:03 Dextrose IV 100 mls/hr .[id number] LUCIANO Administration Insulin Detemir 20 unit 02/06/18 22:00 02/06/18 21:58 Levemir SC 20 u HS LUCIANO Administration Insulin Human Regular 0 units 02/05/18 22:00 02/06/18 21:58 Humulin R Low SC 3 u ACHS LUCIANO Administration Protocol Methylprednisolone 40 mg 02/06/18 10:00 02/06/18 10:07 Solu-Medrol IVP 40 mg DAILY LUCIANO Administration Nicotine 1 patch 02/06/18 15:45 02/06/18 16:31 Nicoderm Cq TD 1 patch DAILY LUCIANO Administration Oxycodone/Acetaminophen 1 tab 02/06/18 22:31 02/07/18 05:44 Percocet 5/325 Mg Tab PO 02/09/18 22:32 1 tab Q6H PRN Administration Pain, moderate (4-7) - Patient Studies Lab Studies: Microbiology Studies 02/05/18 11:05 Urine Culture - Preliminary Urine Gram Negative Gerardo 02/05/18 16:10 Blood Culture - Preliminary Blood-Venous NO GROWTH AFTER 24 HOURS 02/05/18 10:45 Blood Culture - Preliminary Blood-Venous NO GROWTH AFTER 24 HOURS Lab Studies 02/07/18 02/07/18 02/07/18 Range/Units 06:56 06:30 02:14 WBC 6.9 (4.5-11.0) 10^3/uL RBC 3.41 L (3.5-6.1) 10^6/uL Hgb 9.3 L (12.0-16.0) g/dL Hct 31.1 L (36.0-48.0) % MCV 91.2 (80.0-105.0) fl MCH 27.3 (25.0-35.0) pg MCHC 29.9 L (31.0-37.0) g/dl RDW 15.1 H (11.5-14.5) % Plt Count 245 (120.0-450.0) 10^3/uL MPV 9.8 (7.0-11.0) fl Gran % 74.8 H (50.0-68.0) % Lymph % (Auto) 17.6 L (22.0-35.0) % [place] % (Auto) 7.4 H (1.0-6.0) % Eos % (Auto) 0.1 L (1.5-5.0) % Baso % (Auto) 0.1 (0.0-3.0) % Gran # 5.14 (1.4-6.5) Lymph # (Auto) 1.2 (1.2-3.4) [place] # (Auto) 0.5 (0.1-0.6) Eos # (Auto) 0.0 (0.0-0.7) Baso # (Auto) 0.01 (0.0-2.0) K/mm3 Neutrophils % (Manual) (50.0-70.0) % Lymphocytes % (Manual) (22.0-35.0) % Monocytes % (Manual) (1.0-6.0) % Platelet Evaluation (NORMAL) pCO2 66 H (35-45) mm/Hg pO2 75.0 L (80-100) mm/Hg HCO3 33.2 H (21-28) mmol/L ABG pH 7.31 L (7.35-7.45) ABG Total CO2 35.2 H (22-28) mmol.L ABG O2 Saturation 97.5 (95-98) % ABG O2 Content 11.5 L (15-23) ML/dl ABG Base Excess 5.8 H (-2.0-3.0) mmol/L ABG Hemoglobin 8.5 L (11.7-17.4) g/dL ABG Carboxyhemoglobin 1.6 H (0.5-1.5) % POC ABG HHb (Measured) 2.4 (0-5) % ABG Methemoglobin 0.8 (0.0-3.0) % ABG O2 Capacity 11.8 L (16-24) mL/dl Hgb O2 Saturation 95.2 (95.0-98.0) % FiO2 40.0 % Sodium (132-148) mmol/L Potassium (3.6-5.0) mmol/L Chloride (98-107) mmol/L Carbon Dioxide (21-33) mmol/L Anion Gap (10-20) BUN (7-21) mg/dL Creatinine (0.7-1.2) mg/dl Est GFR ( Amer) Est GFR (Non-Af Amer) POC Glucose (mg/dL) 358 H (65-110) mg/dL Random Glucose (70-110) mg/dL Calcium (8.4-10.5) mg/dL Total Bilirubin (0.2-1.3) mg/dL AST (14-36) U/L ALT (7-56) U/L Alkaline Phosphatase (38-126) U/L Total Protein (5.8-8.3) g/dL Albumin (3.0-4.8) g/dL Globulin gm/dL Albumin/Globulin Ratio (1.1-1.8) Urine Osmolality (300-1000) mosm/kg 02/06/18 02/06/18 02/06/18 Range/Units 23:06 21:51 16:05 WBC (4.5-11.0) 10^3/uL RBC (3.5-6.1) 10^6/uL Hgb (12.0-16.0) g/dL Hct (36.0-48.0) % MCV (80.0-105.0) fl MCH (25.0-35.0) pg MCHC (31.0-37.0) g/dl RDW (11.5-14.5) % Plt Count (120.0-450.0) 10^3/uL MPV (7.0-11.0) fl Gran % (50.0-68.0) % Lymph % (Auto) (22.0-35.0) % [place] % (Auto) (1.0-6.0) % Eos % (Auto) (1.5-5.0) % Baso % (Auto) (0.0-3.0) % Gran # (1.4-6.5) Lymph # (Auto) (1.2-3.4) [place] # (Auto) (0.1-0.6) Eos # (Auto) (0.0-0.7) Baso # (Auto) (0.0-2.0) K/mm3 Neutrophils % (Manual) (50.0-70.0) % Lymphocytes % (Manual) (22.0-35.0) % Monocytes % (Manual) (1.0-6.0) % Platelet Evaluation (NORMAL) pCO2 (35-45) mm/Hg pO2 (80-100) mm/Hg HCO3 (21-28) mmol/L ABG pH (7.35-7.45) ABG Total CO2 (22-28) mmol.L ABG O2 Saturation (95-98) % ABG O2 Content (15-23) ML/dl ABG Base Excess (-2.0-3.0) mmol/L ABG Hemoglobin (11.7-17.4) g/dL ABG Carboxyhemoglobin (0.5-1.5) % POC ABG HHb (Measured) (0-5) % ABG Methemoglobin (0.0-3.0) % ABG O2 Capacity (16-24) mL/dl Hgb O2 Saturation (95.0-98.0) % FiO2 % Sodium (132-148) mmol/L Potassium (3.6-5.0) mmol/L Chloride (98-107) mmol/L Carbon Dioxide (21-33) mmol/L Anion Gap (10-20) BUN (7-21) mg/dL Creatinine (0.7-1.2) mg/dl Est GFR ( Amer) Est GFR (Non-Af Amer) POC Glucose (mg/dL) 368 H 383 H 398 H (65-110) mg/dL Random Glucose (70-110) mg/dL Calcium (8.4-10.5) mg/dL Total Bilirubin (0.2-1.3) mg/dL AST (14-36) U/L ALT (7-56) U/L Alkaline Phosphatase (38-126) U/L Total Protein (5.8-8.3) g/dL Albumin (3.0-4.8) g/dL Globulin gm/dL Albumin/Globulin Ratio (1.1-1.8) Urine Osmolality (300-1000) mosm/kg 02/06/18 02/06/18 02/06/18 Range/Units 11:10 07:45 06:55 WBC (4.5-11.0) 10^3/uL RBC (3.5-6.1) 10^6/uL Hgb (12.0-16.0) g/dL Hct (36.0-48.0) % MCV (80.0-105.0) fl MCH (25.0-35.0) pg MCHC (31.0-37.0) g/dl RDW (11.5-14.5) % Plt Count (120.0-450.0) 10^3/uL MPV (7.0-11.0) fl Gran % (50.0-68.0) % Lymph % (Auto) (22.0-35.0) % [place] % (Auto) (1.0-6.0) % Eos % (Auto) (1.5-5.0) % Baso % (Auto) (0.0-3.0) % Gran # (1.4-6.5) Lymph # (Auto) (1.2-3.4) [place] # (Auto) (0.1-0.6) Eos # (Auto) (0.0-0.7) Baso # (Auto) (0.0-2.0) K/mm3 Neutrophils % (Manual) (50.0-70.0) % Lymphocytes % (Manual) (22.0-35.0) % Monocytes % (Manual) (1.0-6.0) % Platelet Evaluation (NORMAL) pCO2 (35-45) mm/Hg pO2 (80-100) mm/Hg HCO3 (21-28) mmol/L ABG pH (7.35-7.45) ABG Total CO2 (22-28) mmol.L ABG O2 Saturation (95-98) % ABG O2 Content (15-23) ML/dl ABG Base Excess (-2.0-3.0) mmol/L ABG Hemoglobin (11.7-17.4) g/dL ABG Carboxyhemoglobin (0.5-1.5) % POC ABG HHb (Measured) (0-5) % ABG Methemoglobin (0.0-3.0) % ABG O2 Capacity (16-24) mL/dl Hgb O2 Saturation (95.0-98.0) % FiO2 % Sodium 147 (132-148) mmol/L Potassium 4.7 (3.6-5.0) mmol/L Chloride 113 H (98-107) mmol/L Carbon Dioxide 25 (21-33) mmol/L Anion Gap 14 (10-20) BUN 74 H (7-21) mg/dL Creatinine 2.5 H (0.7-1.2) mg/dl Est GFR ( Amer) 24 Est GFR (Non-Af Amer) 20 POC Glucose (mg/dL) 217 H 278 H (65-110) mg/dL Random Glucose 331 H* (70-110) mg/dL Calcium 8.0 L (8.4-10.5) mg/dL Total Bilirubin 0.1 L (0.2-1.3) mg/dL AST 12 L D (14-36) U/L ALT 15 (7-56) U/L Alkaline Phosphatase 78 (38-126) U/L Total Protein 6.3 (5.8-8.3) g/dL Albumin 3.1 (3.0-4.8) g/dL Globulin 3.2 gm/dL Albumin/Globulin Ratio 1.0 L (1.1-1.8) Urine Osmolality (300-1000) mosm/kg 02/06/18 02/05/18 Range/Units 06:55 21:08 WBC (4.5-11.0) 10^3/uL RBC (3.5-6.1) 10^6/uL Hgb (12.0-16.0) g/dL Hct (36.0-48.0) % MCV (80.0-105.0) fl MCH (25.0-35.0) pg MCHC (31.0-37.0) g/dl RDW (11.5-14.5) % Plt Count (120.0-450.0) 10^3/uL MPV (7.0-11.0) fl Gran % (50.0-68.0) % Lymph % (Auto) (22.0-35.0) % [place] % (Auto) (1.0-6.0) % Eos % (Auto) (1.5-5.0) % Baso % (Auto) (0.0-3.0) % Gran # (1.4-6.5) Lymph # (Auto) (1.2-3.4) [place] # (Auto) (0.1-0.6) Eos # (Auto) (0.0-0.7) Baso # (Auto) (0.0-2.0) K/mm3 Neutrophils % (Manual) 90 H (50.0-70.0) % Lymphocytes % (Manual) 9 L (22.0-35.0) % Monocytes % (Manual) 1 (1.0-6.0) % Platelet Evaluation Normal (NORMAL) pCO2 (35-45) mm/Hg pO2 (80-100) mm/Hg HCO3 (21-28) mmol/L ABG pH (7.35-7.45) ABG Total CO2 (22-28) mmol.L ABG O2 Saturation (95-98) % ABG O2 Content (15-23) ML/dl ABG Base Excess (-2.0-3.0) mmol/L ABG Hemoglobin (11.7-17.4) g/dL ABG Carboxyhemoglobin (0.5-1.5) % POC ABG HHb (Measured) (0-5) % ABG Methemoglobin (0.0-3.0) % ABG O2 Capacity (16-24) mL/dl Hgb O2 Saturation (95.0-98.0) % FiO2 % Sodium (132-148) mmol/L Potassium (3.6-5.0) mmol/L Chloride (98-107) mmol/L Carbon Dioxide (21-33) mmol/L Anion Gap (10-20) BUN (7-21) mg/dL Creatinine (0.7-1.2) mg/dl Est GFR ( Amer) Est GFR (Non-Af Amer) POC Glucose (mg/dL) (65-110) mg/dL Random Glucose (70-110) mg/dL Calcium (8.4-10.5) mg/dL Total Bilirubin (0.2-1.3) mg/dL AST (14-36) U/L ALT (7-56) U/L Alkaline Phosphatase (38-126) U/L Total Protein (5.8-8.3) g/dL Albumin (3.0-4.8) g/dL Globulin gm/dL Albumin/Globulin Ratio (1.1-1.8) Urine Osmolality 393 (300-1000) mosm/kg Laboratory Results - last 24 hr 02/05/18 02/06/18 02/06/18 21:08 06:55 06:55 WBC RBC Hgb Hct MCV MCH MCHC RDW Plt Count MPV Gran % Lymph % (Auto) [place] % (Auto) Eos % (Auto) Baso % (Auto) Gran # Lymph # (Auto) [place] # (Auto) Eos # (Auto) Baso # (Auto) Neutrophils % (Manual) 90 H Lymphocytes % (Manual) 9 L Monocytes % (Manual) 1 Platelet Evaluation Normal pCO2 pO2 HCO3 ABG pH ABG Total CO2 ABG O2 Saturation ABG O2 Content ABG Base Excess ABG Hemoglobin ABG Carboxyhemoglobin POC ABG HHb (Measured) ABG Methemoglobin ABG O2 Capacity Hgb O2 Saturation FiO2 Sodium 147 Potassium 4.7 Chloride 113 H Carbon Dioxide 25 Anion Gap 14 BUN 74 H Creatinine 2.5 H Est GFR ( Amer) 24 Est GFR (Non-Af Amer) 20 POC Glucose (mg/dL) Random Glucose 331 H* Calcium 8.0 L Total Bilirubin 0.1 L AST 12 L D ALT 15 Alkaline Phosphatase 78 Total Protein 6.3 Albumin 3.1 Globulin 3.2 Albumin/Globulin Ratio 1.0 L Urine Osmolality 393 02/06/18 02/06/18 02/06/18 07:45 11:10 16:05 WBC RBC Hgb Hct MCV MCH MCHC RDW Plt Count MPV Gran % Lymph % (Auto) [place] % (Auto) Eos % (Auto) Baso % (Auto) Gran # Lymph # (Auto) [place] # (Auto) Eos # (Auto) Baso # (Auto) Neutrophils % (Manual) Lymphocytes % (Manual) Monocytes % (Manual) Platelet Evaluation pCO2 pO2 HCO3 ABG pH ABG Total CO2 ABG O2 Saturation ABG O2 Content ABG Base Excess ABG Hemoglobin ABG Carboxyhemoglobin POC ABG HHb (Measured) ABG Methemoglobin ABG O2 Capacity Hgb O2 Saturation FiO2 Sodium Potassium Chloride Carbon Dioxide Anion Gap BUN Creatinine Est GFR ( Amer) Est GFR (Non-Af Amer) POC Glucose (mg/dL) 278 H 217 H 398 H Random Glucose Calcium Total Bilirubin AST ALT Alkaline Phosphatase Total Protein Albumin Globulin Albumin/Globulin Ratio Urine Osmolality 02/06/18 02/06/18 02/07/18 21:51 23:06 02:14 WBC RBC Hgb Hct MCV MCH MCHC RDW Plt Count MPV Gran % Lymph % (Auto) [place] % (Auto) Eos % (Auto) Baso % (Auto) Gran # Lymph # (Auto) [place] # (Auto) Eos # (Auto) Baso # (Auto) Neutrophils % (Manual) Lymphocytes % (Manual) Monocytes % (Manual) Platelet Evaluation pCO2 pO2 HCO3 ABG pH ABG Total CO2 ABG O2 Saturation ABG O2 Content ABG Base Excess ABG Hemoglobin ABG Carboxyhemoglobin POC ABG HHb (Measured) ABG Methemoglobin ABG O2 Capacity Hgb O2 Saturation FiO2 Sodium Potassium Chloride Carbon Dioxide Anion Gap BUN Creatinine Est GFR ( Amer) Est GFR (Non-Af Amer) POC Glucose (mg/dL) 383 H 368 H 358 H Random Glucose Calcium Total Bilirubin AST ALT Alkaline Phosphatase Total Protein Albumin Globulin Albumin/Globulin Ratio Urine Osmolality 02/07/18 02/07/18 06:30 06:56 WBC 6.9 RBC 3.41 L Hgb 9.3 L Hct 31.1 L MCV 91.2 MCH 27.3 MCHC 29.9 L RDW 15.1 H Plt Count 245 MPV 9.8 Gran % 74.8 H Lymph % (Auto) 17.6 L [place] % (Auto) 7.4 H Eos % (Auto) 0.1 L Baso % (Auto) 0.1 Gran # 5.14 Lymph # (Auto) 1.2 [place] # (Auto) 0.5 Eos # (Auto) 0.0 Baso # (Auto) 0.01 Neutrophils % (Manual) Lymphocytes % (Manual) Monocytes % (Manual) Platelet Evaluation pCO2 66 H pO2 75.0 L HCO3 33.2 H ABG pH 7.31 L ABG Total CO2 35.2 H ABG O2 Saturation 97.5 ABG O2 Content 11.5 L ABG Base Excess 5.8 H ABG Hemoglobin 8.5 L ABG Carboxyhemoglobin 1.6 H POC ABG HHb (Measured) 2.4 ABG Methemoglobin 0.8 ABG O2 Capacity 11.8 L Hgb O2 Saturation 95.2 FiO2 40.0 Sodium Potassium Chloride Carbon Dioxide Anion Gap BUN Creatinine Est GFR ( Amer) Est GFR (Non-Af Amer) POC Glucose (mg/dL) Random Glucose Calcium Total Bilirubin AST ALT Alkaline Phosphatase Total Protein Albumin Globulin Albumin/Globulin Ratio Urine Osmolality Fingerstick Blood Sugar Results: 383 Critical Care Progress Note - Nutrition Nutrition: Nutrition Category Date Time Status Heart Healthy Diet [DIET] Diets 02/06/18 Breakfast Active
[2018-02-07 07:49] LABS: CALCIUM 7.7 mg/dL (8.4-10.5)
[2018-02-07] MEDS: Albuterol-Ipratrop 3 mg / 0.5 (3 ml) UD IH PRN ×3 (08:45→13:00)
[2018-02-07] MEDS: MethylPREDNISolone 40 mg Vial IVP SCH (09:56)
[2018-02-07] MEDS: Azithromycin 500MG/NS 250ml 500 MG/250 ML BAG IVPB SCH (09:57)
[2018-02-07] MEDS: cefTRIAXone 1 gm 1 GM/100 ML BAG IVPB SCH (09:58)
[2018-02-07] MEDS: Sodium Bicarbonate 8.4% 150 MEQ in Dextrose 5% In Water 1,000 ML IV SCH (10:37)
--- NOTE | 2018-02-07 12:39 | PN ---
DATE: 02/06/2018 SUBJECTIVE: The patient is on BiPAP 12/6, saturating 95% and above, seems better. She tried to get the mask off her face, but it is sitting over the pressure /6, very good. Patient has no other complaint at this time. PHYSICAL EXAMINATION: VITAL SIGNS: Her temperature is 98, heart rate is 116, blood pressure and saturating 94% on FiO2 40% with BiPAP. Head and neck exam is normal. No JVD, no thyromegaly. CHEST: Clear bilaterally. CARDIAC: First sound and second sound normal. ABDOMEN: Soft and nontender. EXTREMITIES: No edema. NEUROLOGICAL: Normal. LABORATORY STUDIES: Shows sodium 147, potassium 4.7, chloride 115, bicarb 25, BUN 74, creatinine 2.5. Blood sugar is 331 and her calcium is 8. CBC shows white count of 7.8, hemoglobin 9.3, hematocrit 31.3 and platelets 260,000. According to the urine drug screen, she is positive for benzodiazepines, no evidence of oxycodone on the case here and only benzodiazepines. She also had serology negative for influenza. She also had an ABG which initially showed respiratory and metabolic acidosis. When she came in, her pH was 7.16, now her pH is better at 7.24. Her CO2 improved. When she came in, her CO2 was 56, she always has some CO2 retention, but her O2 has improved from 83 and now it is 105, but CO2 still is at 61, but pH is better. IMPRESSION: 1. Respiratory failure due to chronic obstructive pulmonary disease exacerbation, possible pneumonia and underlying medical conditions including maybe she took much Xanax which caused central respiratory failure. We will continue current treatment. Continue inhaled and IV bronchodilators, IV Rocephin and Zithromax. We will follow up clinically. 2. Renal failure. She has chronic renal insufficiency. She was during the past. We will get a renal consult and continue IV hydration. 3. Diabetes, insulin dependent. We will give Levemir 20 units plus insulin. We may increase insulin to high scale coverage to help manage her diabetes. 4. Chronic anxiety. 5. Chronic back pain. 6. Get a psychiatric consult to see the patient. 7. Continue current management as in ICU. Gastrointestinal and deep venous thrombosis. Follow up clinically. Sloan Sosa MD [facility] # [id number]
[2018-02-07] MEDS: Insulin Lispro (HUMAlog) HIGH Coverage SC SCH ×2 (12:49→18:56)
--- NOTE | 2018-02-07 17:44 | HP ---
DATE OF EXAM: 02/05/2018 CHIEF COMPLAINT: Patient is seen in the emergency room with main complaint of short of breath. HISTORY OF PRESENT ILLNESS: This is a well-known patient with history of breast CA, COPD, asthma, history of noncompliance, chronic pain, chronic anxiety, came into the ER because of short of breath. Her son lives with her who has limitation with his mental capacity. She lives with him, noted that she has been short of breath. She has been coughing and she took her treatments. She took her Xanax. She did get short of breath, called the office and I advised to go to the ER for evaluation. She took more than recommended dose of Xanax. She took 2 or 3 more Xanax, unsure. With her respiratory distress, the patient came into the ER, was, kind of, unresponsive due to breathing problems. She is not in pain. According to the ER, she was given Narcan, she opened her eyes, she was feeling better, and she started more responding. PAST MEDICAL HISTORY: As I said, breast CA, COPD, asthma, chronic anxiety disorder, chronic back pain due to her neck and lower back and osteoarthritis, breast CA, noncompliance with oncology evaluations, and history of renal insufficiency in the past. ALLERGIES: SHE HAS LEVAQUIN ALLERGY AND NYSTATIN ALLERGY. SOCIAL HISTORY: She lives with her son. She still smokes. No alcohol. No other complaints. REVIEW OF SYSTEMS: As in the present illness, she always has some cough, short of breath, wheezing, weakness, anxiety, problem sleeping, and distress. PHYSICAL EXAMINATION: GENERAL: On 02/05/2018, the patient was evaluated by informatics nurse and admitted to intensive care unit due to her respiratory condition. She is maintained on BiPAP and her saturation is low 90s. VITAL SIGNS: Temperature is 98.6, heart rate is 91, respirations 18, sats 96% on BiPAP. HEAD AND NECK: Normal. No JVD. CHEST: Diminished breath sounds. Mild wheeze. CARDIAC: First sound and second sound normal. ABDOMEN: Soft, nontender. EXTREMITIES: No edema. NEUROLOGIC: She is very weak and she is poorly responsive. LABORATORY DATA: When she came in, white count 11.7, hemoglobin 10.9, hematocrit 37.6, platelets 327,000. Her chemistry shows the following; sodium 146, potassium 5.7, chloride 115, bicarb 22, BUN 79, creatinine 2.9, and blood sugar 299. Liver function test is normal. DIAGNOSTIC DATA: 1. Patient also had a chest x-ray which shows there is no acute infiltrate on the chest x-ray and there is of right basilar patchy opacity. 2. Head CT. The patient had a CAT scan of the head which shows that there is no abnormal CAT scan of the head. 3. Renal ultrasound was done. It shows the following; there is no interval . Bilateral renal cystic changes are again identified, not significantly changed from previous, but limited complexity cysts. Follow up left renal cyst is recommended. IMPRESSION AND PLAN: 1. A 57-year-old female, came in with respiratory distress, wheezing, and desaturating on bilevel positive airway pressure. We will admit the patient with respiratory failure due to underlying chronic obstructive pulmonary disease exacerbation. Patient received Solu-Medrol. We will continue bilevel positive airway pressure, oxygen, and nebulizers treatment, and we will maintain the patient in the ICU. 2. History of drug use disorder. She took too much of oxycodone and Xanax, unclear why, but she got Narcan and seems better. We will follow up on that . We will get a psychiatric evaluation. 3. Chronic renal insufficiency. We will get renal consult. 4. History of breast carcinoma, chronic back pain, chronic anxiety. We will get renal and psychiatrist evaluation for this condition. 5. Continue gastrointestinal and deep venous thrombosis prophylaxis. She has sequential compression devices. Continue IV fluids. Follow up clinically, IV antibiotics. CURRENT MEDICATIONS: She is on DuoNeb, she is on heparin subcutaneously, insulin coverage, Levemir 20 units was added, Nicoderm CQ, Solu-Medrol, Tylenol as needed, Xanax, and oxycodone as needed for pain. Currently, she is on Rocephin and Z-Patrick for possible pneumonia. Continue current therapy. Please be advised this is a note for 02/05/2018. Sloan Sosa MD
[2018-02-07] MEDS ORDERED: Insulin Lispro 1 UNITS/0.01 ML SC STA ×2 (19:04→21:36)
[2018-02-07] MEDS: Insulin Detemir 100 units/ml Vial (Levemir) SC SCH (21:46)
[2018-02-08] MEDS: Oxycodone/Acetaminophen 5/325 mg Tab PO PRN ×2 (03:04→11:59)
[2018-02-08] MEDS: Albuterol-Ipratrop 3 mg / 0.5 (3 ml) UD IH PRN ×3 (03:16→21:42)
[2018-02-08 06:54] LABS: BASO # 0.01 K/mm3 (0.0-2.0); BASO % 0.1 % (0.0-3.0); EOS % 0.3 % (1.5-5.0); GRAN # 5.05 (1.4-6.5); GRAN % 69.2 % (50.0-68.0); LYMPH # 1.6 (1.2-3.4); LYMPH % 21.2 % (22.0-35.0); MEAN CELL VOLUME 92.6 fl (80.0-105.0); MEAN CORPUSCULAR HEMOGLOBIN 27.6 pg (25.0-35.0); MEAN CORPUSCULAR HGB CONC 29.8 g/dl (31.0-37.0); MEAN PLATELET VOLUME 10.5 fl (7.0-11.0); MONO # 0.7 (0.1-0.6); MONO % 9.2 % (1.0-6.0); RBC 3.26 10^6/uL (3.5-6.1); RED CELL DISTRIBUTION WIDTH 15.2 % (11.5-14.5); WHITE BLOOD COUNT 7.3 10^3/uL (4.5-11.0)
[2018-02-08] MEDS: Insulin Lispro (HUMAlog) HIGH Coverage SC SCH (07:57)
[2018-02-08 07:59] LABS: ALBUMIN 3.2 g/dL (3.0-4.8); CALCIUM 7.4 mg/dL (8.4-10.5)
[2018-02-08] MEDS: Cefpodoxime (Vantin) 200 mg Tab PO SCH (09:48)
[2018-02-08] MEDS: MethylPREDNISolone 40 mg Vial IVP SCH ×2 (09:49→21:51)
[2018-02-08] MEDS: Azithromycin 500MG/NS 250ml 500 MG/250 ML BAG IVPB SCH (09:49)
[2018-02-08] MEDS: Insulin Reg-LOW-Coverage SC SCH ×3 (11:58→21:50)
[2018-02-08] MEDS: Insulin Lispro 1 UNITS/0.01 ML SC SCH ×2 (11:58→17:21)
--- NOTE | 2018-02-08 13:59 | PN ---
DATE: 02/07/2018 SUBJECTIVE: The patient is a 57-year-old female. The patient is doing better, less breathing problem, less wheezing, less cough. She is more alert, awake, oriented. The patient discussion verbally to her. She has no history of overdose on the Xanax as initially felt. She took her regular doses and there is no any history of any oxycodone overdose as per urine drug screen also. However, the patient right now she feels better, less short of breath, less coughing, more alert, awake, oriented, and stable. Blood sugar running high. PHYSICAL EXAMINATION: VITAL SIGNS: Her temperature is 98, heart rate is 98, blood pressure 127/61, respirations 18 and saturating 96% on room air. HEAD AND NECK: Exam is normal. No JVD, no thyromegaly. CHEST: Clear bilaterally. CARDIAC: First sound and second sound normal. LUNGS: . ABDOMEN: Soft and nontender. EXTREMITIES: No edema. NEUROLOGICAL: Normal. LABORATORY STUDIES: White count is 6.9, hemoglobin 9.3, hematocrit 31.1 and platelets 245. Chemistries noted for blood sugar was in the 400, range more than 500. She was on insulin high scale and Lantus. IMPRESSION: 1. Acute chronic obstructive pulmonary disease excerebration, acute respiratory failure. Continue BiPAP. Continue inhaler and IV bronchodilators and continue IV antibiotics. She is doing better. Continue current treatment. She will get pulmonary consult Dr. Rucker. Continue current therapy. 2. History of tobacco addiction. She is on Nicoderm patch. 3. Insulin-dependent diabetes. Blood sugar running high. We will increase the Lantus to 30 mg and continue high insulin coverage. We are planing to switch it to 15 units before meals plus low algorithm in the morning. Continue current therapy for now. 4. Chronic back pain and chronic anxiety. Continue Xanax when necessary and continue Percocet 5 mg when necessary for back pain. 5. History of breast carcinoma and bladder problem in the past with multiple biopsies negative. 6. Hydronephrosis and renal failure. Continue current therapy. We will get Dr. Marco Antonio Chatman to see the patient and will continue gastrointestinal and deep vein thrombosis prophylaxis. Sloan Sosa MD [facility] # [id number]
[2018-02-08] MEDS: Insulin Detemir 100 units/ml Vial (Levemir) SC SCH (21:55)
--- NOTE | 2018-02-09 01:37 | CON ---
DATE: 02/08/2018 HISTORY OF PRESENT ILLNESS: The patient is a 57-year-old white female with no formal psychiatric history except for anxiety, no suicide attempts, no psychiatric admissions or current outpatient psychiatric followup, who was admitted to the medical psych for shortness of breath and unintentional overdose of Xanax. A psychiatrist called to this aforementioned HPI. I met with the patient at bedside. She appear depressed to see me. She was unaware that psychiatric evaluation was requested. The patient was unhappy with request, but cooperative with questioning. She swears at times, however, does not appear to be indicative of a lack of control, but really appear to be more of a personality trait. The patient denies being depressed. She denies having many suicidal thoughts. She denies any hallucinations. Responses are consistent and relevant to questioning. She indicates that her internists are a bunch of "fucking idiots." Regarding why this evaluation was requested, the patient was easily redirected, and she indicates, I'm fine, I'm fine" and she appears to be genuine when she reports this. Again, the patient denies that, that presentation was secondary to a suicide attempt. She reports that she took some Xanax, may be she took extra, however, she is unsure. She likely took the Xanax with painkillers and she is quite aware that this combination could be dangerous and she generally tries to avoid this combination. She is not hopeless. She is future oriented. She is unhappy about being hospitalized, but apparently has been cooperative with medical treatment team thus far and appears to be well oriented to month, year, and location. Insight and judgement are considered to be fair. Labs and vitals were reviewed by this provider. RELEVANT MEDICATIONS: Psychiatric medications include Xanax 0.5 mg p.o. q.i.d. PSYCHIATRIC HISTORY: The patient denies any formal psychiatric history including suicide attempts, inpatient or outpatient followups. She is on Xanax for anxiety, however, denies that presentation prior to admission was secondary to a suicide attempt. She appears to be quite genuine when she indicates this. I spoke with nursing staff who was very familiar for the patient and there does not appear to be any fear or scepticism amongst us regarding the circumstances of her presentation and it does appear to be accidental. SOCIAL HISTORY: The patient indicates that she is . She lives with her son. She has a son and a daughter, they are adult. Daughter just moved out. IMPRESSION: Anxiety disorder, not otherwise specified, mood disorder, not otherwise specified. The mood disorder might be secondary to adjustment issues regarding recent hospitalizations. RECOMMENDATIONS: We will continue with current treatment. There is no acute indication to change her treatment at this time. She appears to be functioning and well oriented. There does not appear to be any danger that the patient's presentation was secondary to an intentional overdose. If it appears to be unintentional, in this resect Xanax should be tapered and if there is history of further unintentional overdose, it should only be provided in one to two week prescription increment to reduce the possibility of another hospitalization for similar circumstances. At this time, she does not need inpatient psychiatric admission and she does not want inpatient psychiatric admission. She also does not want psychiatric consultation to continue to follow up. I recommend that for her anxiety, she is to follow up with an outpatient psychiatrist to more carefully monitor her medications, and in this respect, medical team should follow up with providing this type of referral to ensure an episode like this does not happen again. Psychiatry will sign off at this time, to consult radha Pamela Schulte MD
[2018-02-09] MEDS: Oxycodone/Acetaminophen 5/325 mg Tab PO PRN ×3 (04:04→18:53)
[2018-02-09 06:25] LABS: BASO # 0.01 K/mm3 (0.0-2.0); BASO % 0.1 % (0.0-3.0); GRAN # 5.94 (1.4-6.5); GRAN % 87.6 % (50.0-68.0); HEMOGLOBIN 8.7 g/dL (12.0-16.0); LYMPH # 0.7 (1.2-3.4); LYMPH % 9.6 % (22.0-35.0); MEAN CELL VOLUME 94.3 fl (80.0-105.0); MEAN CORPUSCULAR HEMOGLOBIN 27.7 pg (25.0-35.0); MEAN CORPUSCULAR HGB CONC 29.4 g/dl (31.0-37.0); MEAN PLATELET VOLUME 10.3 fl (7.0-11.0); MONO # 0.2 (0.1-0.6); MONO % 2.7 % (1.0-6.0); RBC 3.14 10^6/uL (3.5-6.1); WHITE BLOOD COUNT 6.8 10^3/uL (4.5-11.0)
[2018-02-09 06:53] LABS: ALB/GLOB RATIO 1.1 (1.1-1.8); ALBUMIN 3.2 g/dL (3.0-4.8); CALCIUM 7.3 mg/dL (8.4-10.5)
[2018-02-09] MEDS: Insulin Reg-LOW-Coverage SC SCH ×4 (08:15→22:35)
[2018-02-09] MEDS: Insulin Lispro 1 UNITS/0.01 ML SC SCH ×3 (08:16→16:33)
[2018-02-09] MEDS: Cefpodoxime (Vantin) 200 mg Tab PO SCH (09:19)
[2018-02-09] MEDS: Albuterol-Ipratrop 3 mg / 0.5 (3 ml) UD IH PRN (10:28)
[2018-02-09] MEDS: Sodium Chloride 0.9% 1,000 ML IV SCH ×2 (10:51→22:37)
[2018-02-09 11:23] LABS: PH,URINE 6.5 (4.7-8.0); URINE BILIRUBIN NEGATIVE (NEGATIVE); URINE BLOOD LARGE (NEGATIVE); URINE GLUCOSE (UA) >=1000 mg/dL (NEGATIVE); URINE LEUKOCYTE ESTERASE SMALL Leu/uL (NEGATIVE); URINE PROTEIN 30 mg/dL (<30 mg/dL); URINE UROBILINOGEN 0.2 E.U./dL (<1 E.U./dL)
[2018-02-09 11:35] LABS: URINE APPEARANCE SL CLOUDY (CLEAR); URINE COLOR LIGHT YELLOW (YELLOW)
[2018-02-09 11:44] LABS: URINE AMORPHOUS SEDIMENT FEW; URINE BACTERIA MANY (NEG); URINE RBC 25 - 30 /hpf (0-2)
[2018-02-09 13:21] LABS: IRON 66 ug/dL (45-180)
--- NOTE | 2018-02-09 13:21 | CP.PCM.CON ---
History of Present Illness - History of Present Illness History of Present Illness: Nephrology Consultation Note: Assessment: Stable Acute Kidney Injury (N17.9) likely pre-renal Hyperkalemia Diabetic chronic Kidney Disease (E11.22) Hypertensive Chronic Kidney Disease (I12.9) Chronic Kidney Disease (N18.3) Stage 3 with ? mg proteinuria (R80.9) likely due to DM/HTN Anemia (D64.9) COPD/asthma, active smoker, breast cancer s/p surgery 2 years ago AMS, CO2 narcosis and acute on chronc respi acidosis with respi failure with renal compensation active smoker UTI treated with Abx Plan No acute need for renal replacement therapy at this time. Hypertension control with meds as ordered. Maintain hemodynamics stable. Avoid hypotension. Patient not on ACEI/ARB due to recent DAHLIA and elevated K Monitor Input/Output, daily weights and renal function with basic metabolic panel low Na and low K diet added in view of hyperglycemia, will add IVF as NS consider heme/onc eval for chronic anemia/ will defer use of [place] in view of her recent breast malignancy unless okay by heme repeat renal sono in 6 months for cyst follow up Check urine analysis, spot protein/creatinine, albumin/creatinine ratio HIV/Hep B and Hep C serology Anemia work up with TSAT/Ferritin/Vitamin B12/folate, serum protein electrophoresis with immunofixation, serum free light chain assay ([place]/Lambda) Check for 25-OH vitamin D, iPTH, phosphorus level. Dose meds/antibiotics for reduced GFR. Avoid fleets enema/magnesium based laxatives. Avoid nephrotoxins/NSAIDs/ iodinated contrast (unless needed emergently) Glycemic control. pt need to stop smoking Further work up/management as per primary team Thanks for allowing me to participate in care of your patient. Will follow patient with you. Please call if any Qs. had d/w team Dr Marco Antonio Chatman Office: [phone] Chief Complaint; none Reason for consult: Acute Kidney Injury HPI: Pt is a 57 F with hx of diabetes Mellitus ( years), hypertension (years) COPD/asthma, active smoker, breast cancer s/p surgery 2 years ago, anemia, CKD stage 3 with baseline cr 1.8 mg/dL initially admitted with AMS, CO2 narcosis and respi failure now seen for DAHLIA Denies OTC/herbal meds or NSAIDs No recent iodinated contrast exposure. No obvious episodes of low BP. ROS: Cardiovascular: No chest pain. Pulmonary: improved shortness of breath Gastrointestinal: denies abdominal pain No nausea. No vomiting. Genitourinary: No pain while urinating. Denies blood in urine. All other negative except as mentioned in HPI. pt is a poor historian and overall hx is limited from her Physical Examination: General Appearance: Comfortable, in no acute respiratory distress, co-operative . Vitals reviewed and noted as below Head; Atraumatic, normocephalic ENT: no ulcers no thrush. Tongue is midline. Oropharynx: no rash or ulcers. she is hard of hearing EYES: Pupils are equal, round and reactive to light accommodation. Eye muscles and extraocular movement intact. Sclera is anicteric. Neck; supple no lymphadenopathy, no thyromegaly or bruit Lungs: Normal respiratory rate/effort. Breath sounds bilateral equal and occasional wheeze at base Heart: Normal rate. s1s2 normal. No rub or gallop. Extremities: trace edema. No varicose veins Neurological: Patient is alert, awake and oriented to person, place and time. No focal deficit. Strength bilateral appropriate and equal Skin: Warm and dry. Normal turgor. No rash. Palpitation: Normal elasticity for age Abdomen: Abdomen is soft. Bowel sounds +. There is no abdominal tenderness, no guarding/rigidity no organomegaly Psych: lack insight and normal affect/mood MSK: no joint tenderness or swelling. Digits and nails normal, no deformity : kidney or bladder not palpable Labs/imaging reviewed. Past medical history, past surgical history, family history, social history, allergy reviewed and noted as below Family hx: no hx of CKD. Rest non-contributory renal imaging: b/l cysts echo normal LVEF Past Patient History - Infectious Disease Hx of Infectious Diseases: None - Tetanus Immunizations Tetanus Immunization: Unknown - Past Medical History & Family History Past Medical History?: Yes - Past Social History Smoking Status: Current Some Days Smoker - CARDIAC Hx Cardiac Disorders: Yes Hx Hypertension: Yes - PULMONARY Hx Respiratory Disorders: Yes Hx Chronic Obstructive Pulmonary Disease (COPD): Yes Hx Emphysema: Yes Hx Pneumonia: Yes - NEUROLOGICAL Hx Neurological Disorder: No - HEENT Hx HEENT Problems: No - RENAL Hx Chronic Kidney Disease: No - ENDOCRINE/METABOLIC Hx Endocrine Disorders: Yes Hx Diabetes Mellitus Type 2: Yes - HEMATOLOGICAL/ONCOLOGICAL Hx Blood Transfusions: Yes Hx Blood Transfusion Reaction: No - INTEGUMENTARY Hx Dermatological Problems: No - MUSCULOSKELETAL/RHEUMATOLOGICAL Hx Falls: Yes - GASTROINTESTINAL Hx Gastrointestinal Disorders: No - GENITOURINARY/GYNECOLOGICAL Hx Genitourinary Disorders: No - PSYCHIATRIC Hx Psychophysiologic Disorder: Yes Hx Anxiety: Yes Hx Depression: Yes Hx Substance Use: Yes - SURGICAL HISTORY Hx Surgeries: Yes - ANESTHESIA Hx Anesthesia: Yes Hx Anesthesia Reactions: No Hx Malignant Hyperthermia: No Meds Allergies/Adverse Reactions: Allergies Allergy/AdvReac Type Severity Reaction Status Date / Time levofloxacin [From Levaquin] Allergy SHORTNESS Verified 11/23/17 02:24 OF BREATH;PARANOID nystatin Allergy SWELLING Verified 11/23/17 02:24 - Medications Medications: Current Medications Acetaminophen (Tylenol 325mg Tab) 650 mg PO Q4H PRN PRN Reason: Pain, Mild (1-3) Acetaminophen (Tylenol 325mg Tab) 650 mg PO Q4H PRN PRN Reason: fever 100.4 Albuterol/Ipratropium (Duoneb 3 Mg/0.5 Mg (3 Ml) Ud) 3 ml IH Q2H PRN PRN Reason: Shortness of Breath Last Admin: 02/09/18 10:28 Dose: 3 ml Alprazolam (Xanax) 0.5 mg PO QID [facility]; Protocol Last Admin: 02/09/18 09:19 Dose: 0.5 mg Famotidine (Pepcid) 10 mg PO DAILY [facility] Last Admin: 02/09/18 09:18 Dose: 10 mg Heparin Sodium (Porcine) (Heparin) 5,000 units SC Q8 [facility]; Protocol Last Admin: 02/09/18 05:56 Dose: 5,000 units Sodium Chloride (Sodium Chloride 0.9%) 1,000 mls @ 100 mls/hr IV .Q10H [facility] Last Admin: 02/09/18 10:51 Dose: 100 mls/hr Insulin Detemir (Levemir) 30 unit SC HS [place] Insulin Human Lispro (Humalog) 15 units SC AC [facility] Last Admin: 02/09/18 12:01 Dose: 15 u Insulin Human Regular (Humulin R Low) 0 units SC ACHS [facility]; Protocol Last Admin: 02/09/18 12:01 Dose: 2 u Nicotine (Nicoderm Cq) 1 patch TD DAILY [facility] Last Admin: 02/09/18 09:18 Dose: 1 patch Oxycodone/Acetaminophen (Percocet 5/325 Mg Tab) 1 tab PO Q6H PRN PRN Reason: Pain, moderate (4-7) Stop: 02/09/18 22:32 Last Admin: 02/09/18 10:51 Dose: 1 tab Prednisone (Prednisone Tab) 20 mg PO DAILY [facility] Last Admin: 02/09/18 09:19 Dose: 20 mg Results - Vital Signs Recent Vital Signs: Last Vital Signs Temp 98.2 F 02/09/18 06:00 Pulse 95 H 02/09/18 06:00 Resp 20 02/09/18 06:00 BP 147/65 02/09/18 06:00 Pulse Ox 98 02/09/18 06:00 - Labs Result Diagrams: 02/09/18 06:00 02/09/18 06:00 Labs: Laboratory Results - last 24 hr 02/08/18 02/08/18 02/09/18 16:46 21:07 06:00 WBC 6.8 RBC 3.14 L Hgb 8.7 L Hct 29.6 L MCV 94.3 MCH 27.7 MCHC 29.4 L RDW 15.0 H Plt Count 248 MPV 10.3 Gran % 87.6 H Lymph % (Auto) 9.6 L [place] % (Auto) 2.7 Eos % (Auto) 0.0 L Baso % (Auto) 0.1 Gran # 5.94 Lymph # (Auto) 0.7 L [place] # (Auto) 0.2 Eos # (Auto) 0.0 Baso # (Auto) 0.01 Sodium Potassium Chloride Carbon Dioxide Anion Gap BUN Creatinine Est GFR ( Amer) Est GFR (Non-Af Amer) POC Glucose (mg/dL) 343 H 410 H* Random Glucose Calcium Total Bilirubin AST ALT Alkaline Phosphatase Total Protein Albumin Globulin Albumin/Globulin Ratio Urine Color Urine Appearance Urine pH Ur Specific [place] Urine Protein Urine Glucose (UA) Urine Ketones Urine Blood Urine Nitrate Urine Bilirubin Urine Urobilinogen Ur Leukocyte Esterase Urine RBC Urine WBC Ur Epithelial Cells Amorphous Sediment Urine Bacteria Urine Other 02/09/18 02/09/18 02/09/18 06:00 06:53 10:55 WBC RBC Hgb Hct MCV MCH MCHC RDW Plt Count MPV Gran % Lymph % (Auto) [place] % (Auto) Eos % (Auto) Baso % (Auto) Gran # Lymph # (Auto) [place] # (Auto) Eos # (Auto) Baso # (Auto) Sodium 139 Potassium 5.5 H Chloride 101 Carbon Dioxide 33 Anion Gap 11 BUN 53 H Creatinine 2.1 H Est GFR ( Amer) 29 Est GFR (Non-Af Amer) 24 POC Glucose (mg/dL) 431 H* Random Glucose 579 H* D Calcium 7.3 L Total Bilirubin 0.2 AST 14 ALT 20 Alkaline Phosphatase 86 Total Protein 6.0 Albumin 3.2 Globulin 2.9 Albumin/Globulin Ratio 1.1 Urine Color Light yellow Urine Appearance Sl cloudy Urine pH 6.5 Ur Specific [place] 1.015 Urine Protein 30 H Urine Glucose (UA) >=1000 Urine Ketones Negative Urine Blood Large H Urine Nitrate Negative Urine Bilirubin Negative Urine Urobilinogen 0.2 Ur Leukocyte Esterase Small H Urine RBC 25 - 30 Urine WBC 10 - 15 Ur Epithelial Cells 4 - 5 Amorphous Sediment Few Urine Bacteria Many Urine Other Uyeast 02/09/18 11:28 WBC RBC Hgb Hct MCV MCH MCHC RDW Plt Count MPV Gran % Lymph % (Auto) [place] % (Auto) Eos % (Auto) Baso % (Auto) Gran # Lymph # (Auto) [place] # (Auto) Eos # (Auto) Baso # (Auto) Sodium Potassium Chloride Carbon Dioxide Anion Gap BUN Creatinine Est GFR ( Amer) Est GFR (Non-Af Amer) POC Glucose (mg/dL) 213 H Random Glucose Calcium Total Bilirubin AST ALT Alkaline Phosphatase Total Protein Albumin Globulin Albumin/Globulin Ratio Urine Color Urine Appearance Urine pH Ur Specific [place] Urine Protein Urine Glucose (UA) Urine Ketones Urine Blood Urine Nitrate Urine Bilirubin Urine Urobilinogen Ur Leukocyte Esterase Urine RBC Urine WBC Ur Epithelial Cells Amorphous Sediment Urine Bacteria Urine Other
[2018-02-09 13:30] LABS: % IRON SATURATION 26 % (20-55); TOTAL IRON BINDING CAPACITY 254 ug/dL (265-497)
[2018-02-09 20:31] LABS: FOLATE 3.9 ng/mL
[2018-02-09] MEDS: Insulin Detemir 100 units/ml Vial (Levemir) SC SCH (22:48)
[2018-02-10] MEDS: Albuterol-Ipratrop 3 mg / 0.5 (3 ml) UD IH PRN ×2 (02:36→19:50)
[2018-02-10] MEDS: Sodium Chloride 0.9% 1,000 ML IV SCH (06:55)
[2018-02-10] MEDS: Insulin Reg-LOW-Coverage SC SCH ×4 (08:16→21:56)
[2018-02-10 08:48] LABS: ALB/GLOB RATIO 1.1 (1.1-1.8); ALBUMIN 3.4 g/dL (3.0-4.8); CALCIUM 7.5 mg/dL (8.4-10.5)
[2018-02-10 08:49] LABS: BASO # 0.01 K/mm3 (0.0-2.0); BASO % 0.1 % (0.0-3.0); EOS % 0.1 % (1.5-5.0); GRAN # 6.8 (1.4-6.5); GRAN % 83.1 % (50.0-68.0); HEMOGLOBIN 9.1 g/dL (12.0-16.0); LYMPH % 12.3 % (22.0-35.0); MEAN CELL VOLUME 94.9 fl (80.0-105.0); MEAN CORPUSCULAR HEMOGLOBIN 27.2 pg (25.0-35.0); MEAN CORPUSCULAR HGB CONC 28.7 g/dl (31.0-37.0); MEAN PLATELET VOLUME 10.9 fl (7.0-11.0); MONO # 0.4 (0.1-0.6); MONO % 4.4 % (1.0-6.0); RBC 3.34 10^6/uL (3.5-6.1); RED CELL DISTRIBUTION WIDTH 15.2 % (11.5-14.5); WHITE BLOOD COUNT 8.2 10^3/uL (4.5-11.0)
[2018-02-10] MEDS: Insulin Lispro 1 UNITS/0.01 ML SC SCH ×3 (10:05→17:17)
[2018-02-10] MEDS: cefTRIAXone 1 gm 1 GM/100 ML BAG IVPB SCH (10:07)
--- NOTE | 2018-02-10 10:56 | PN ---
DATE: 02/08/2018 SUBJECTIVE: The patient on medical floor. She is stable. Her breathing is better. She is less coughing and she has no chest pain. She is more alert, awake and oriented x3. PHYSICAL EXAMINATION: VITAL SIGNS: Temperature 98.3, heart rate 89, blood pressure 127/59, respirations 18, and sat 98%. HEAD AND NECK: Normal. No JVD. No thyromegaly. CHEST: Clear bilaterally. CARDIAC: First sound and second sound normal. ABDOMEN: Soft and nontender. EXTREMITIES: No edema. NEUROLOGICAL: Normal. LABORATORY DATA: White count 7.3, hemoglobin 9, hematocrit 30.2, and platelets 263,000. Chemistry noted for sodium 145, potassium 4.1, chloride 105, bicarb 35, BUN 57, creatinine 2.1, blood sugar 225, calcium 7.4, and total bilirubin 0.2. Liver enzymes are normal. IMPRESSION AND PLAN: 1. Acute chronic obstructive pulmonary disease exacerbation. Continue current therapy, inhaled and IV bronchodilators, Solu-Medrol 20 mg b.i.d. Continue current antibiotics. 2. Hypertension, longstanding. 3. Insulin-dependent diabetes. Continue Levemir 20 units, may increase it to 30 units plus continue insulin coverage high scale. 4. Dehydration, renal insufficiency. Follow up with the property officer. Continue IV fluid. 5. Chronic anxiety. Psychiatric evaluation has been consulted for this patient. Dr. Schulte is seeing her. Continue Xanax. 6. Osteoarthritis. Continue the chronic back pain medication. We will follow up recommendations. Continue current therapy. Follow up on daily basis. Sloan Sosa MD
--- NOTE | 2018-02-10 11:01 | PN ---
DATE: 02/09/2018 SUBJECTIVE: The patient is comfortable. She seems a little bit wheezy. Her blood sugar runs 500. The patient otherwise clinically stable. PHYSICAL EXAMINATION: VITAL SIGNS: Temperature 98.8, heart rate 96, blood pressure 152/70, respirations 20, sat 94% on 2 liters. HEENT: Head and neck normal. No JVD. No thyromegaly. CHEST: Wheezing bilaterally, mild. CARDIAC: First sound and second sound normal. ABDOMEN: Soft, obese and nontender. EXTREMITIES: No edema. NEUROLOGIC: Normal. LABORATORY DATA: Sodium 139, potassium 5.5, chloride 101, bicarb 33, BUN 53, creatinine 2.1, blood sugar 579, and calcium 7.3. The patient also had a CBC, which shows white count 6.8, hemoglobin 8.7, hematocrit 29.6, and platelets 248,000. Her PT/PTT was normal. Her urine was consistent with urine red blood cells, urine wbc's, and the culture shows Enterococcus aeruginosa. However, blood culture was negative. ASSESSMENT AND PLAN: Chronic obstructive pulmonary disease exacerbation. Continue steroids and increase her steroids to 30 mg daily in addition to inhaled IV bronchodilators. We will follow clinically with Dr. Rucker, also with the ID. We are going to switch the patient to Rocephin. She is on doxycycline. We will switch her to Rocephin to see how she does. Continue current therapy. We will consider ID consultation for this patient and we will follow up clinically. Sloan Sosa MD
[2018-02-10] MEDS ORDERED: Sod Polystyrene Sulf 15 gm/60 ml Susp PO ONE (11:17)
[2018-02-10] MEDS: Insulin Detemir 100 units/ml Vial (Levemir) SC SCH (21:57)
[2018-02-11] MEDS: Insulin Lispro 1 UNITS/0.01 ML SC SCH ×3 (07:53→16:36)
[2018-02-11] MEDS: Insulin Reg-LOW-Coverage SC SCH ×4 (07:53→22:18)
--- NOTE | 2018-02-11 08:26 | CP.PCM.PCO ---
Physician Communication Note - Physician Communication Note Physician Communication Note: psychiatry signed off
[2018-02-11] MEDS: Albuterol-Ipratrop 3 mg / 0.5 (3 ml) UD IH PRN ×3 (09:12→23:05)
[2018-02-11] MEDS: cefTRIAXone 1 gm 1 GM/100 ML BAG IVPB SCH (10:11)
[2018-02-11 11:18] LABS: CREATININE,RANDOM URINE 46 mg/dL
--- NOTE | 2018-02-11 11:54 | CON ---
DATE: 02/11/2018 CONSULT REQUESTED BY: Dr. Sosa. REASON FOR CONSULTATION: Anemia, breast cancer. HISTORY OF PRESENT ILLNESS: Ms. Granado is a 57-year-old female admitted to the hospital with altered mental status. She overdosed on oxycodone and Xanax, received Narcan and sensorium was improved. She also has a history of COPD. She was diagnosed with breast cancer in 2016 with left breast mass. She got one cycle of sandee adjuvant chemotherapy. After that, she refused chemotherapy and surgery. Last CT of chest, abdomen and pelvis reviewed that was done in July 2017 at [facility], did not show any metastatic disease. There was right apical fibrosis. She was admitted with acute renal insufficiency with elevated creatinine of 2.8. Iron studies were normal. Hemoglobin 9 g/dL. B12 and folate levels were normal. SPEP immunofixation are pending. PAST MEDICAL HISTORY: 1. Noncompliance. 2. Breast cancer. 3. COPD. 4. Anxiety. 5. Renal insufficiency. PAST SURGICAL HISTORY: Mastectomy. ALLERGIES: TO LEVAQUIN AND NYSTATIN. SOCIAL HISTORY: Lives at home with the son. History of drug overdose. REVIEW OF SYSTEMS: As per HPI. Rest of 12-point review of systems reviewed and negative. PHYSICAL EXAMINATION: GENERAL: Comfortable in bed, in no acute distress. VITAL SIGNS: Temperature 98.6, heart rate 90 per minute, respiratory rate 15 per minute. HEENT: Pallor positive. NECK: No lymphadenopathy. CARDIOPULMONARY: S1, S2 normal. No murmur. No gallop. CHEST: Air entry present, equal bilateral. No added sound. EXTREMITIES: No edema. NEUROLOGIC: Awake, alert. No sensory motor deficit. Breast : left breast mass, outer upper quad, around 5 cm. LABORATORY DATA: White count 8.2, hemoglobin 9.1, hematocrit 31.7, platelets 271. Glucose 343. Sodium 142, potassium 5.5, creatinine 1.8, on admission 2.8. Iron 65. ASSESSMENT AND PLAN: 1. Anemia; iron study is normal. B12 and folate normal. Creatinine elevated to 2.8, now 1.8. Anemia might be related to chronic renal insufficiency. She will need erythropoietin support, but she is noncompliant. She will not come to the office for followup for Procrit injections. We will continue to monitor clinically. She has received several units of blood transfusion in the past. Hemoglobin and hematocrit are stable now. SPEP immunofixation pending. 2. Breast cancer diagnosed in 2016. Last CT scan done in July 2017, which did not show any evidence of metastatic disease. She has around 5 cm left breast mass. 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 She has declined surgery and chemo. I had a lengthy discussion with her regarding treatment of breast cancer. She need staging work up to r/o metastatic disease. She has chronic back pain, highly suspicious for bony mets. She told me that she will consider treatment for cancer next year in 2019. . She refused staging scans also. if she is agreeable- bone scan to be done.. 3. History of oxycodone, Xanax overdose. Management as per Dr. Sosa. Thank you, Dr. Sosa, for allowing us to participate in Ms. Granado's care. Stephanie Zelaya MD MTDJuan
[2018-02-11 13:09] LABS: ALB/GLOB RATIO 1.1 (1.1-1.8); ALBUMIN 3.1 g/dL (3.0-4.8)
--- NOTE | 2018-02-11 17:20 | PN ---
DATE: 02/10/2018 SUBJECTIVE: The patient is feeling better, less wheezing. Blood sugar running high, potassium still high. She got Kayexalate, but otherwise stable. PHYSICAL EXAMINATION: VITAL SIGNS: Temperature 98, heart rate 87, blood pressure 130/52, respirations 18, sat 98% on room air. HEAD AND NECK: Normal. No JVD. No thyromegaly. CHEST: Bilateral very diminished breath sounds in the bases, but otherwise clear. No wheeze. CARDIAC: First sound and second sound normal. ABDOMEN: Soft, nontender. EXTREMITIES: No edema. NEUROLOGICAL: Normal. LABORATORY STUDIES: White count 8.2, hemoglobin 9.1, hematocrit 31.7 and platelets 271. Chemistry: Sodium 142, potassium 5.2, chloride 106, bicarb 23, BUN 48, creatinine 1.8, blood sugar 177-200 range, phosphorus 4.7. IMPRESSION AND PLAN: 1. Acute chronic obstructive pulmonary disease exacerbations, status post respiratory failure. Currently, she is on p.o. prednisone. Continue IV antibiotics. She is getting Rocephin and also continue inhaled bronchodilators. 2. Hyperkalemia. Kayexalate was given. 3. Chronic renal failure with acute worsening. The patient is improving clinically. Creatinine 1.8. It is probably close to her baseline. We will continue current treatment. 4. Insulin-dependent diabetes. Continue Levemir. We will increase Levemir to 30 units plus high scale coverage. 5. Tobacco smoking. She is on Nicoderm patch. She is cutting down from 2 packs to 1 pack. Plan: Continue current therapy. 6. Chronic back pain. Chronic anxiety. Seen by psychiatrist. No suicidal thoughts or plans. Continue Xanax 0.5 four times a day and continue Percocet p.r.n. We will follow up clinically. Gastrointestinal and deep venous thrombosis prophylaxis. Sloan Sosa MD
[2018-02-11] MEDS ORDERED: oxyCODONE 5 mg Immediate Release Tab PO SCH (18:00)
[2018-02-11] MEDS: Insulin Detemir 100 units/ml Vial (Levemir) SC SCH (22:18)
[2018-02-12] MEDS ORDERED: Insulin Regular 1 UNITS/0.01 ML ML SC ONE (00:01)
[2018-02-12] MEDS: Insulin Reg-LOW-Coverage SC SCH ×4 (08:18→21:54)
[2018-02-12] MEDS: Insulin Lispro 1 UNITS/0.01 ML SC SCH ×3 (08:18→16:29)
[2018-02-12] MEDS: cefTRIAXone 1 gm 1 GM/100 ML BAG IVPB SCH (09:04)
[2018-02-12] MEDS ORDERED: Ergocalciferol 50,000 Intl Units Cap PO SCH (10:45)
--- NOTE | 2018-02-12 13:59 | CP.PCM.PN ---
Subjective - Date & Time of Evaluation Date of Evaluation: 02/12/18 Time of Evaluation: 13:58 - Subjective Subjective: Nephrology Consultation Note: Assessment: Stable Acute Kidney Injury (N17.9) likely pre-renal Hyperkalemia Diabetic chronic Kidney Disease (E11.22) Hypertensive Chronic Kidney Disease (I12.9) Chronic Kidney Disease (N18.3) Stage 3 with ? mg proteinuria (R80.9) likely due to DM/HTN Anemia (D64.9) COPD/asthma, active smoker, breast cancer s/p surgery 2 years ago AMS, CO2 narcosis and acute on chronc respi acidosis with respi failure with renal compensation active smoker UTI treated with Abx Plan No acute need for renal replacement therapy at this time. Hypertension control with meds as ordered. Maintain hemodynamics stable. Avoid hypotension. Patient not on ACEI/ARB due to recent DAHLIA and elevated K Monitor Input/Output, daily weights and renal function with basic metabolic panel low Na and low K diet added due to edema, stopped IVF appreciate heme/onc eval for chronic anemia/ will defer use of [place] in view of her recent breast malignancy unless okay by heme repeat renal sono in 6 months for cyst follow up started iron, MVI and weekly Vit D Check urine analysis, spot protein/creatinine, albumin/creatinine ratio HIV/Hep B and Hep C serology Anemia work up with TSAT/Ferritin/Vitamin B12/folate, serum protein el ectrophoresis with immunofixation, serum free light chain assay ([place]/Lambda) Check for 25-OH vitamin D, iPTH, phosphorus level. Dose meds/antibiotics for reduced GFR. Avoid fleets enema/magnesium based laxatives. Avoid nephrotoxins/NSAIDs/ iodinated contrast (unless needed emergently) Glycemic control. pt need to stop smoking Further work up/management as per primary team Thanks for allowing me to participate in care of your patient. Will follow patient with you. Please call if any Qs. had d/w team Dr Marco Antonio Chatman Office: [phone] Chief Complaint; none Reason for consult: Acute Kidney Injury HPI: Pt is a 57 F with hx of diabetes Mellitus ( years), hypertension (years) COPD/asthma, active smoker, breast cancer s/p surgery 2 years ago, anemia, CKD stage 3 with baseline cr 1.8 mg/dL initially admitted with AMS, CO2 narcosis and respi failure now seen for DAHLIA Denies OTC/herbal meds or NSAIDs No recent iodinated contrast exposure. No obvious episodes of low BP. ROS: Cardiovascular: No chest pain. Pulmonary: improved shortness of breath Gastrointestinal: denies abdominal pain No nausea. No vomiting. Genitourinary: No pain while urinating. Denies blood in urine. All other negative except as mentioned in HPI. pt is a poor historian and overall hx is limited from her Physical Examination: General Appearance: Comfortable, in no acute respiratory distress, co-operative . Vitals reviewed and noted as below Head; Atraumatic, normocephalic ENT: no ulcers no thrush. Tongue is midline. Oropharynx: no rash or ulcers. she is hard of hearing EYES: Pupils are equal, round and reactive to light accommodation. Eye muscles and extraocular movement intact. Sclera is anicteric. Neck; supple no lymphadenopathy, no thyromegaly or bruit Lungs: Normal respiratory rate/effort. Breath sounds bilateral equal and occasional wheeze at base Heart: Normal rate. s1s2 normal. No rub or gallop. Extremities: 1+ edema. No varicose veins Neurological: Patient is alert, awake and oriented to person, place and time. No focal deficit. Strength bilateral appropriate and equal Skin: Warm and dry. Normal turgor. No rash. Palpitation: Normal elasticity for age Abdomen: Abdomen is soft. Bowel sounds +. There is no abdominal tenderness, no guarding/rigidity no organomegaly Psych: lack insight and normal affect/mood MSK: no joint tenderness or swelling. Digits and nails normal, no deformity : kidney or bladder not palpable Labs/imaging reviewed. Past medical history, past surgical history, family history, social history, allergy reviewed and noted as below Family hx: no hx of CKD. Rest non-contributory renal imaging: b/l cysts echo normal LVEF Objective - Vital Signs/Intake and Output Vital Signs (last 24 hours): Temp Pulse Resp BP Pulse Ox 97.8 F 88 20 149/70 97 02/12/18 06:00 02/12/18 06:00 02/12/18 06:00 02/12/18 06:00 02/12/18 06:00 Intake and Output: 02/12/18 02/12/18 06:59 18:59 Intake Total 1000 Balance 1000 - Medications Medications: Current Medications Acetaminophen (Tylenol 325mg Tab) 650 mg PO Q4H PRN PRN Reason: Pain, Mild (1-3) Last Admin: 02/11/18 18:35 Dose: 650 mg Acetaminophen (Tylenol 325mg Tab) 650 mg PO Q4H PRN PRN Reason: fever 100.4 Albuterol/Ipratropium (Duoneb 3 Mg/0.5 Mg (3 Ml) Ud) 3 ml IH Q2H PRN PRN Reason: Shortness of Breath Last Admin: 02/11/18 23:05 Dose: 3 ml Alprazolam (Xanax) 0.5 mg PO QID [facility]; Protocol Last Admin: 02/12/18 13:25 Dose: 0.5 mg Ergocalciferol (Drisdol 50,000 Intl Units Cap) 1 cap PO Q7D [facility] Last Admin: 02/12/18 12:31 Dose: 1 cap Famotidine (Pepcid) 10 mg PO DAILY [facility] Last Admin: 02/12/18 09:04 Dose: 10 mg Ferrous Gluconate (Fergon) 324 mg PO TID [facility] Last Admin: 02/12/18 13:25 Dose: 324 mg Heparin Sodium (Porcine) (Heparin) 5,000 units SC Q8 [facility]; Protocol Last Admin: 02/12/18 13:26 Dose: 5,000 units Ceftriaxone Sodium (Rocephin 1 Gram Ivpb) 1 gm in 100 mls @ 100 mls/hr IVPB DAILY [facility]; Protocol Stop: 02/14/18 10:59 Last Admin: 02/12/18 09:04 Dose: 100 mls/hr Insulin Detemir (Levemir) 30 unit SC HS [facility] Last Admin: 02/11/18 22:18 Dose: 30 units Insulin Human Lispro (Humalog) 15 units SC AC [facility] Last Admin: 02/12/18 11:24 Dose: Not Given Insulin Human Regular (Humulin R Low) 0 units SC ACHS [facility]; Protocol Last Admin: 02/12/18 11:24 Dose: Not Given Nicotine (Nicoderm Cq) 1 patch TD DAILY [facility] Last Admin: 02/12/18 09:04 Dose: 1 patch Oxycodone/Acetaminophen (Percocet 5/325 Mg Tab) 1 tab PO TID PRN PRN Reason: Pain, moderate (4-7) Stop: 02/14/18 18:01 Prednisone (Prednisone Tab) 30 mg PO DAILY [facility] Last Admin: 02/12/18 09:04 Dose: 30 mg Vitamin B Complex/Vit C/Folic Acid (Nephro-Enrrique) 1 tab PO 0800 [facility] - Labs Labs: 02/10/18 08:15 02/11/18 12:35 PT 12.0 SECONDS (9.4-12.5) 02/05/18 10:45 INR 1.04 02/05/18 10:45 APTT 37.8 Seconds (25.1-36.5) H 02/05/18 10:45
[2018-02-12 14:58] VITALS: PULSE 95; RESP 20
[2018-02-12] MEDS: Albuterol-Ipratrop 3 mg / 0.5 (3 ml) UD IH PRN (15:45)
[2018-02-12] MEDS: Oxycodone/Acetaminophen 5/325 mg Tab PO PRN (16:30)
[2018-02-12] MEDS: Insulin Detemir 100 units/ml Vial (Levemir) SC SCH (21:54)
--- NOTE | 2018-02-13 02:25 | PN ---
DATE: 02/12/2018 SUBJECTIVE: The patient is doing better, breathing better, feeling weak, but otherwise stable. She is able to walk to the bathroom. No new complaints. PHYSICAL EXAMINATION: VITAL SIGNS: Temperature 97.8, heart rate 88, blood pressure 149/70, respirations 20, saturation 97% on 3 liters nasal cannula. HEAD AND NECK: Normal. No JVD. No thyromegaly. CHEST: Clear. Bilateral cardiac breath sounds. CARDIAC: First sound and second sound normal. ABDOMEN: Soft, nontender. EXTREMITIES: No edema. NEUROLOGICAL: Normal. LABORATORY DATA: White count 8.2, hemoglobin 9.1, hematocrit 31.7, platelets 271. Chemistry noted for blood sugar 276 and it went down to 178 range. IMPRESSION AND PLAN: 1. Acute chronic obstructive pulmonary disease exacerbations. The patient is doing better. Continue prednisone. Continue IV antibiotics. 2. Urinary tract infections. Continue Rocephin. 3. Diabetes, insulin dependent, probably high because of the prednisone. We will decrease prednisone to 20 mg. Continue current therapy. 5. Chronic back pain. Chronic anxiety. Continue Xanax and Percocet. 6. Continue renal failure. She is currently on Nephro-Enrrique, vitamin B complex, and she is seen by cat scan technologist. Sloan Sosa MD
[2018-02-13] MEDS: Oxycodone/Acetaminophen 5/325 mg Tab PO PRN ×2 (02:55→12:36)
[2018-02-13] MEDS: Albuterol-Ipratrop 3 mg / 0.5 (3 ml) UD IH PRN ×2 (03:35→13:12)
[2018-02-13] MEDS ORDERED: Multivitamin Vitamin B Complex (Nephro-Vite) Tab PO SCH (08:00)
[2018-02-13] MEDS: Insulin Lispro 1 UNITS/0.01 ML SC SCH ×2 (08:27→12:35)
[2018-02-13] MEDS: Insulin Reg-LOW-Coverage SC SCH ×2 (08:27→12:41)
[2018-02-13 08:54] VITALS: BP 140/63; TEMP 97.7; O2SAT 98
[2018-02-13] MEDS: cefTRIAXone 1 gm 1 GM/100 ML BAG IVPB SCH (10:07)
--- NOTE | 2018-02-13 14:43 | CP.PCM.PN ---
Subjective - Date & Time of Evaluation Date of Evaluation: 02/13/18 Time of Evaluation: 14:43 - Subjective Subjective: Nephrology Consultation Note: Assessment: Stable Acute Kidney Injury (N17.9) likely pre-renal Hyperkalemia Diabetic chronic Kidney Disease (E11.22) Hypertensive Chronic Kidney Disease (I12.9) Chronic Kidney Disease (N18.3) Stage 3 with ? mg proteinuria (R80.9) likely due to DM/HTN Anemia (D64.9) COPD/asthma, active smoker, breast cancer s/p surgery 2 years ago AMS, CO2 narcosis and acute on chronc respi acidosis with respi failure with renal compensation active smoker UTI treated with Abx Plan No acute need for renal replacement therapy at this time. Hypertension control with meds as ordered. Maintain hemodynamics stable. Avoid hypotension. Patient not on ACEI/ARB due to recent DAHLIA and elevated K Monitor Input/Output, daily weights and renal function with basic metabolic panel low Na and low K diet added due to edema, stopped IVF appreciate heme/onc eval for chronic anemia/ will defer use of [place] in view of her recent breast malignancy unless okay by heme repeat renal sono in 6 months for cyst follow up started iron, MVI and weekly Vit D lasix 40 mg daily x 5 days at d/c Check urine analysis, spot protein/creatinine, albumin/creatinine ratio HIV/Hep B and Hep C serology Anemia work up with TSAT/Ferritin/Vitamin B12/folate, serum protein electrophoresis with immunofixation, serum free light chain assay ([place]/Lambda) Check for 25-OH vitamin D, iPTH, phosphorus level. Dose meds/antibiotics for reduced GFR. Avoid fleets enema/magnesium based laxatives. Avoid nephrotoxins/NSAIDs/ iodinated contrast (unless needed emergently) Glycemic control. pt need to stop smoking Further work up/management as per primary team Thanks for allowing me to participate in care of your patient. Will follow patient with you. Please call if any Qs. had d/w team Dr Marco Antonio Chatman Office: [phone] Chief Complaint; none Reason for consult: Acute Kidney Injury HPI: Pt is a 57 F with hx of diabetes Mellitus ( years), hypertension (years) COPD/asthma, active smoker, breast cancer s/p surgery 2 years ago, anemia, CKD stage 3 with baseline cr 1.8 mg/dL initially admitted with AMS, CO2 narcosis and respi failure now seen for DAHLIA Denies OTC/herbal meds or NSAIDs No recent iodinated contrast exposure. No obvious episodes of low BP. ROS: Cardiovascular: No chest pain. Pulmonary: improved shortness of breath Gastrointestinal: denies abdominal pain No nausea. No vomiting. Genitourinary: No pain while urinating. Denies blood in urine. All other negative except as mentioned in HPI. pt is a poor historian and overall hx is limited from her Physical Examination: General Appearance: Comfortable, in no acute respiratory distress, co-operative . Vitals reviewed and noted as below Head; Atraumatic, normocephalic ENT: no ulcers no thrush. Tongue is midline. Oropharynx: no rash or ulcers. she is hard of hearing EYES: Pupils are equal, round and reactive to light accommodation. Eye muscles and extraocular movement intact. Sclera is anicteric. Neck; supple no lymphadenopathy, no thyromegaly or bruit Lungs: Normal respiratory rate/effort. Breath sounds bilateral equal and occasional wheeze at base Heart: Normal rate. s1s2 normal. No rub or gallop. Extremities: 1-2+ edema. No varicose veins Neurological: Patient is alert, awake and oriented to person, place and time. No focal deficit. Strength bilateral appropriate and equal Skin: Warm and dry. Normal turgor. No rash. Palpitation: Normal elasticity for age Abdomen: Abdomen is soft. Bowel sounds +. There is no abdominal tenderness, no guarding/rigidity no organomegaly Psych: lack insight and normal affect/mood MSK: no joint tenderness or swelling. Digits and nails normal, no deformity : kidney or bladder not palpable Labs/imaging reviewed. Past medical history, past surgical history, family history, social history, allergy reviewed and noted as below Family hx: no hx of CKD. Rest non-contributory renal imaging: b/l cysts echo normal LVEF Objective - Vital Signs/Intake and Output Vital Signs (last 24 hours): Temp Pulse Resp BP Pulse Ox 97.7 F 95 H 20 140/63 98 02/13/18 06:00 02/13/18 06:00 02/13/18 06:00 02/13/18 06:00 02/13/18 06:00 Intake and Output: 02/13/18 02/13/18 06:59 18:59 Intake Total 620 Balance 620 - Medications Medications: Current Medications Acetaminophen (Tylenol 325mg Tab) 650 mg PO Q4H PRN PRN Reason: Pain, Mild (1-3) Last Admin: 02/11/18 18:35 Dose: 650 mg Acetaminophen (Tylenol 325mg Tab) 650 mg PO Q4H PRN PRN Reason: fever 100.4 Albuterol/Ipratropium (Duoneb 3 Mg/0.5 Mg (3 Ml) Ud) 3 ml IH Q2H PRN PRN Reason: Shortness of Breath Last Admin: 02/13/18 13:12 Dose: 3 ml Alprazolam (Xanax) 0.5 mg PO QID [facility]; Protocol Last Admin: 02/13/18 14:16 Dose: Not Given Atorvastatin Calcium (Lipitor) 20 mg PO DIN [facility] Ergocalciferol (Drisdol 50,000 Intl Units Cap) 1 cap PO Q7D [facility] Last Admin: 02/12/18 12:31 Dose: 1 cap Famotidine (Pepcid) 10 mg PO DAILY [facility] Last Admin: 02/13/18 10:06 Dose: 10 mg Ferrous Gluconate (Fergon) 324 mg PO TID [facility] Last Admin: 02/13/18 14:15 Dose: Not Given Heparin Sodium (Porcine) (Heparin) 5,000 units SC Q8 [facility]; Protocol Last Admin: 02/13/18 14:15 Dose: Not Given Ceftriaxone Sodium (Rocephin 1 Gram Ivpb) 1 gm in 100 mls @ 100 mls/hr IVPB DAILY [facility]; Protocol Stop: 02/14/18 10:59 Last Admin: 02/13/18 10:07 Dose: 100 mls/hr Insulin Detemir (Levemir) 30 unit SC HS [facility] Last Admin: 02/12/18 21:54 Dose: 30 units Insulin Human Lispro (Humalog) 15 units SC AC [facility] Last Admin: 02/13/18 12:35 Dose: 15 u Insulin Human Regular (Humulin R Low) 0 units SC ACHS [facility]; Protocol Last Admin: 02/13/18 12:41 Dose: Not Given Nicotine (Nicoderm Cq) 1 patch TD DAILY [facility] Last Admin: 02/13/18 10:07 Dose: 1 patch Oxycodone/Acetaminophen (Percocet 5/325 Mg Tab) 1 tab PO TID PRN PRN Reason: Pain, moderate (4-7) Stop: 02/14/18 18:01 Last Admin: 02/13/18 12:36 Dose: 1 tab Prednisone (Prednisone Tab) 30 mg PO DAILY [facility] Last Admin: 02/13/18 10:07 Dose: 30 mg Vitamin B Complex/Vit C/Folic Acid (Nephro-Enrrique) 1 tab PO 0800 [facility] Last Admin: 02/13/18 08:27 Dose: 1 tab - Labs Labs: 02/10/18 08:15 02/11/18 12:35 PT 12.0 SECONDS (9.4-12.5) 02/05/18 10:45 INR 1.04 02/05/18 10:45 APTT 37.8 Seconds (25.1-36.5) H 02/05/18 10:45
[2018-02-14 03:36] LABS: ALBUMIN (PEP) 3.1 g/dL (3.8-4.8); ALPHA-1-GLOBULIN (PEP) 0.4 g/dL (0.2-0.3)
--- NOTE | 2018-02-14 20:09 | DS ---
HISTORY OF PRESENT ILLNESS: The patient is admitted with respiratory distress. She was keep in ICU with severe acute pulmonary distress, on BiPAP, almost intubated. The patient did well. She was on IV steroids, IV antibiotic. The patient also had urinary tract infection, gram-negative. She was given a couple of days in the ICU and the patient was transferred to telemetry to medical floor. She was doing fine. She had Dr. Rucker, Pulmonary, consult and Renal consult, Dr. Marco Antonio Chatman, also Oncology consult was asked for her anemia. The patient is noncompliant. Psychiatry consult has seen the patient. There is no overdose, there is no suicidal ideation or intents to do. The patient had acute COPD exacerbation that was treated and did well. She was tapered down and she was given steroids on discharge, Medrol Dosepak. IV antibiotic, IV Rocephin was given and was switched to Vantin on discharge to continue more days. The patient otherwise is stable. PHYSICAL EXAMINATION ON DISCHARGE: VITAL SIGNS: Stable. Temperature 97, heart rate 95, blood pressure 140/63, respirations 20, saturation 98% on 3 liters nasal cannula. HEAD AND NECK: Normal. No JVD. No thyromegaly. CHEST: Clear bilaterally. CARDIAC: First sound and second sound normal. ABDOMEN: Soft, obese, nontender. EXTREMITIES: Slight edema, mild edema in the ankle area bilaterally. NEUROLOGIC: Normal. LABORATORY DATA: Last lab; white count 8.2, hemoglobin 9.1, hematocrit 31.7, platelets 271. Chemistry noted for blood sugar is 200, she is on steroids, but is improving. Her last BUN was 48, creatinine 1.9, and last potassium 4.7, sodium 139, chloride 104, bicarb 30, blood sugar was 180. Calcium was 7. Last hemoglobin A1c was 9.2. DISCHARGE DIAGNOSES: 1. Acute chronic obstructive pulmonary disease exacerbations. 2. Respiratory failure. 3. Chronic renal failure with acute exacerbations, improved. Chronic kidney disease, stage III. 4. Anemia, iron deficiency plus could be underlying chronic anemia with chronic disease. 5. History of breast carcinoma, noncompliant. 6. Insulin-dependent diabetes. 7. Chronic back pain, osteoarthritis. 8. Chronic anxiety. 9. Urinary tract infection. PLAN: Continue medications. See her in the office in one week. She was given Vantin. 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 Continue insulin, Nicorette patch, and simvastatin 10 mg daily. Continue current therapy, continue inhaled bronchodilators, oxygen at home. Sloan Sosa MD
== END 2018-02-13 18:47 | disposition home health service (06) | DRG 812 ==
LOC: ED 10:12 → ERH 14:58 → ICU 17:23 → 5RNO 02-07 13:49
PROVIDERS: ADMIT Internal Medicine; ATTEND Internal Medicine
PROC: 5A09357 Assistance with Respiratory Ventilation, Less than 24 Consecutive Hours, Continuous Positive Airway Pressure (ICD-10-PCS; principal; 2018-02-05)
DX: T42.4X1A Poisoning by benzodiazepines, accidental (unintentional), initial encounter (principal); J96.01 Acute respiratory failure with hypoxia; N17.9 Acute kidney failure, unspecified; J44.1 Chronic obstructive pulmonary disease with (acute) exacerbation; I12.9 Hypertensive chronic kidney disease with stage 1 through stage 4 chronic kidney disease, or unspecified chronic kidney disease; N18.3 Chronic kidney disease, stage 3 (moderate); E11.22 Type 2 diabetes mellitus with diabetic chronic kidney disease; N39.0 Urinary tract infection, site not specified; B96.89 Other specified bacterial agents as the cause of diseases classified elsewhere; E86.0 Dehydration; E87.5 Hyperkalemia; F17.200 Nicotine dependence, unspecified, uncomplicated; F41.9 Anxiety disorder, unspecified; F39 Unspecified mood [affective] disorder; G89.29 Other chronic pain; M19.90 Unspecified osteoarthritis, unspecified site; D64.9 Anemia, unspecified; Z66 Do not resuscitate; Z17.0 Estrogen receptor positive status [ER+]; Z79.82 Long term (current) use of aspirin; Z79.4 Long term (current) use of insulin; Z85.3 Personal history of malignant neoplasm of breast; Z92.21 Personal history of antineoplastic chemotherapy; Z91.19 Patient's noncompliance with other medical treatment and regimen

== ENCOUNTER 2018-03-08 13:26 | Inpatient (IN) | payer MEDICAID ==
[2018-03-08 14:01] LABS: BASO # 0.03 K/mm3 (0.0-2.0); BASO % 0.5 % (0.0-3.0); EOS # 0.2 (0.0-0.7); EOS % 4.1 % (1.5-5.0); GRAN # 4.16 (1.4-6.5); GRAN % 73.8 % (50.0-68.0); HEMOGLOBIN 9.8 g/dL (12.0-16.0); LYMPH # 0.9 (1.2-3.4); LYMPH % 15.2 % (22.0-35.0); MEAN CELL VOLUME 102.5 fl (80.0-105.0); MEAN CORPUSCULAR HEMOGLOBIN 27.6 pg (25.0-35.0); MEAN CORPUSCULAR HGB CONC 26.9 g/dl (31.0-37.0); MEAN PLATELET VOLUME 10.4 fl (7.0-11.0); MONO # 0.4 (0.1-0.6); MONO % 6.4 % (1.0-6.0); RBC 3.55 10^6/uL (3.5-6.1); RED CELL DISTRIBUTION WIDTH 16.3 % (11.5-14.5); WHITE BLOOD COUNT 5.6 10^3/uL (4.5-11.0)
[2018-03-08 14:10] LABS: INR 1.09; PARTIAL THROMBOPLASTIN TIME 38.8 Seconds (25.1-36.5); PROTHROMBIN TIME 12.5 SECONDS (9.4-12.5)
[2018-03-08 14:20] LABS: ALBUMIN 3.6 g/dL (3.0-4.8); CALCIUM 8.8 mg/dL (8.4-10.5)
[2018-03-08 14:24] LABS: TROPONIN I 0.02 ng/mL
--- NOTE | 2018-03-08 14:33 | RAD ---
Date of service: 03/08/2018 HISTORY: admission COMPARISON: 02/05/2018 FINDINGS: LUNGS: There is consolidation in the right lower lobe with mediastinal shift to the right consistent with atelectasis. PLEURA: Large right pleural effusion CARDIOVASCULAR: No aortic atherosclerotic calcification present. Normal cardiac size. No pulmonary vascular congestion. OSSEOUS STRUCTURES: No significant abnormalities. VISUALIZED UPPER ABDOMEN: Normal. OTHER FINDINGS: None. IMPRESSION: Consolidation in the right lower lobe with mediastinal shift consistent with lobar atelectasis. This is suspicious for a mucus plug or endobronchial lesion. Moderate to large right pleural effusion.
--- NOTE | 2018-03-08 15:30 | ED PDOC ---
Arrival/HPI - General Historian: Family EM Caveat: Altered Mental Status - History of Present Illness Narrative History of Present Illness (Text): 03/08/18 15:36 57 year old female, smoker, whose past medical history includes COPD, asthma, breast cancer, anxiety, chronic back pain, IDDM, and recurrent UTIs, who presents to the emergency department brought in by EMS, accompanied by son, for altered mental status, 1 hour prior to arrival. Son states his mom was walking around, having a normal conversation then she fell unconscious so he called EMS and brought her to the emergency department for further evaluation. Son notes that she has been in and out of consciousness for the past 2 weeks, but the patient refused to come to the hospital. Today however, she remained unconscious and unresponsive. HPI and ROS are limited due to patients altered mental status. Time/Duration: 1 hour Symptom Course: Unchanged Activities at Onset: Light Context: Home <NoraHappiness A - Last Filed: 03/08/18 18:21> <Sebastian Luna - Last Filed: 03/14/18 22:55> - General Chief Complaint: Altered Mental Status Time Seen by Provider: 03/08/18 13:29 Past Medical History - Provider Review Nursing Documentation Reviewed: Yes - Infectious Disease Hx of Infectious Diseases: None - Tetanus Immunization Tetanus Immunization: Unknown - Reproductive Menopause: Yes - Cardiac Hx Cardiac Disorders: Yes Hx Hypertension: Yes - Pulmonary Hx Respiratory Disorders: Yes Hx Chronic Obstructive Pulmonary Disease (COPD): Yes Hx Emphysema: Yes Hx Pneumonia: Yes - Neurological Hx Neurological Disorder: No - HEENT Hx HEENT Disorder: No - Renal Hx Renal Disorder: No - Endocrine/Metabolic Hx Endocrine Disorders: Yes Hx Diabetes Mellitus Type 2: Yes - Hematological/Oncological Hx Blood Transfusions: Yes Hx Blood Transfusion Reaction: No - Integumentary Hx Dermatological Disorder: No - Musculoskeletal/Rheumatological Hx Falls: Yes - Gastrointestinal Hx Gastrointestinal Disorders: No - Genitourinary/Gynecological Hx Genitourinary Disorders: No - Psychiatric Hx Psychophysiologic Disorder: Yes Hx Anxiety: Yes Hx Depression: Yes Hx Substance Use: Yes - Past Surgical History Past Surgical History: Non-Contributing - Surgical History Hx Inguinal Hernia Repair: Yes - Anesthesia Hx Anesthesia: Yes Hx Anesthesia Reactions: No Hx Malignant Hyperthermia: No - Suicidal Assessment Feels Threatened In Home Enviroment: No <Diru,Happiness A - Last Filed: 03/08/18 18:21> Family/Social History - Physician Review Nursing Documentation Reviewed: Yes Family/Social History: No Known Family HX Smoking Status: Current Some Days Smoker Hx Alcohol Use: Yes Hx Substance Use: Yes Hx Substance Use Treatment: No <Shelli Melendez - Last Filed: 03/08/18 18:21> Allergies/Home Meds <Shelli Melendez - Last Filed: 03/08/18 18:21> <Sebastian Luna - Last Filed: 03/14/18 22:55> Allergies/Adverse Reactions: Allergies levofloxacin [From Levaquin] Allergy (Verified 11/23/17 02:24) SHORTNESS OF BREATH;PARANOID nystatin Allergy (Verified 11/23/17 02:24) SWELLING Home Medications: Home Meds Medication Instructions Recorded Confirmed Advair Hfa 115/21 1 puff INH BID 03/03/17 02/05/18 RX: Aspirin [Ecotrin] 81 mg PO DAILY 03/03/17 02/05/18 RX: Famotidine [Pepcid] 20 mg PO DAILY 03/03/17 02/05/18 RX: Oxycodone HCl/Acetaminophen 1 tab PO Q6 03/03/17 02/05/18 [Oxycodone-Acetaminophen 5-325] RX: Simvastatin 10 mg PO DAILY 03/03/17 02/05/18 Review of Systems - Review of Systems Systems not reviewed;Unavailable: Altered Mental Status <Shelli Melendez A - Last Filed: 03/08/18 18:21> Physical Exam Vital Signs Reviewed: Yes Vital Signs Temp Pulse Resp BP Pulse Ox 03/08/18 13:30 98.2 F 88 18 146/67 100 Temperature: Afebrile Blood Pressure: Normal Pulse: Regular Respiratory Rate: Normal Appearance: Positive for: Well-Appearing Pain Distress: None Mental Status: Positive for: Lethargic - Systems Exam Head: Present: Atraumatic, Normocephalic Pupils: Present: PERRL Extroacular Muscles: Present: EOMI Conjunctiva: Present: Normal Mouth: Present: Moist Mucous Membranes Neck: Present: Normal Range of Motion Respiratory/Chest: Present: Good Air Exchange, Accessory Muscle Use, Decreased Breath Sounds (Right base), Retracting (Supraclavicular retraction). No: Clear to Auscultation, Respiratory Distress, Wheezes, Rales, Rhonchi, Tachypneic Cardiovascular: Present: Regular Rate and Rhythm, Normal S1, S2. No: Murmurs Abdomen: No: Tenderness, Distention, Peritoneal Signs Back: Present: Normal Inspection Upper Extremity: Present: Normal Inspection. No: Cyanosis, Edema Lower Extremity: Present: Normal Inspection. No: Edema Neurological: Present: GCS=15, CN II-XII Intact, Speech Normal Skin: Present: Warm, Dry, Normal Color. No: Rashes Psychiatric: Present: Lethargic <Shelli Melendez - Last Filed: 03/08/18 18:21> Vital Signs Temp Pulse Resp BP Pulse Ox 03/08/18 19:20 103 H 22 129/75 97 03/08/18 16:39 108 H 18 154/53 H 100 03/08/18 13:30 98.2 F 88 18 146/67 100 <Sebastian Luna - Last Filed: 03/14/18 22:55> Medical Decision Making ED Course and Treatment: 03/08/18 15:44 Impression: 57 year old female who presents to the emergency department for altered mental status. Plan: -- Head CT w/o contrast -- ABG -- Labs -- Chest X-ray -- EKG -- Solu-medrol -- Vancomycin -- Zofran -- Zosyn -- Blood Culture -- Urine Culture -- Urinalysis -- Reassess and disposition Prior Visits: Notes and results from previous visits were reviewed. Progress Notes: CXR IMPRESSION: Consolidation in the right lower lobe with mediastinal shift consistent with lobar atelectasis. This is suspicious for a mucus plug or endobronchial lesion. Moderate to large right pleural effusion. EKG Sinus tachy with occasional PVC @ 101bpm. Twave abnormality on lateral leads. None-STEMI Labs was reviewed. No leukocystotis. Pt is acidotic and hypercapnic on ABG. case was VARSHA Rushing in detail and he accepted pt and requested / Chaim consult. Case was DW Dr. Rucker and he recommended steroid, abx and intubation. States he will see patient for possible bronchoscopy. He notes that he knows patient very well Pt was still however not hypoxic on 3L of NC while in emergency department Plan is to intubate patient in emergency department . Plan was DW the son who was by the bedside and he refused, states he wants the sister to be present for the intubation. He called the sister and the sister that we hold off intubation until she gets to the emergency department . The importance of intubation to avoid was DW both son and the daughter and they both verbalized understanding, still insist that we wait for her to come to the emergency department first. PT was placed on Bipap, while awaiting the daughter. 03/08/18 16:59 Daughter and son are both above the age of 18, they state they mother told them verbally that she does not want to be intubated again verbally. They report previous history of intubation. This decision was DW Dr. rushing pt's PMD , he is aware of the decision and he agrees. States it should be documented that family states they do not want patient to be intubated and pt should be placed on Bipap for now. Pt however desaturated while on Bipap and the need to intubate patient was again DW the son Sloan over the phone by Dr. Luna and i witnessed and they changed they mind and gave they consent for intubation. Patient was intubated by Dr. Meek Luna without any complication. 03/08/18 18:21 Chest xray post intubation FINDINGS: Endotracheal tube terminates in the mid trachea. The right IJV line terminates in the SVC. LUNGS: There is complete opacification of the right hemithorax. The left lung is well inflated and clear. PLEURA: No pleural effusions or pneumothorax. CARDIOVASCULAR: Shift of trachea and mediastinum to the right. OSSEOUS STRUCTURES: Within normal limits for the patient's age. VISUALIZED UPPER ABDOMEN: Normal. OTHER FINDINGS: None. IMPRESSION: Complete opacification of the right hemithorax with shift of trachea and mediastinum to the right most compatible with right lung collapse. Endotracheal tube terminates in the mid trachea. - Lab Interpretations Lab Results: 03/08/18 13:30 03/08/18 13:30 Lab Results 03/08/18 13:38: POC Glucose (mg/dL) 144 H 03/08/18 13:30: Salicylates < 1 L 03/08/18 13:30: Alcohol, Quantitative < 10 03/08/18 13:30: Sodium 150 H, Potassium 4.8, Chloride 108 H, Carbon Dioxide 39 H , Anion Gap 9 L, BUN 31 H, Creatinine 1.8 H, Est GFR ( Amer) 35, Est GFR (Non-Af Amer) 29, Random Glucose 163 H, Calcium 8.8, Phosphorus 4.2, Magnesium 1.8, Total Bilirubin 0.3, AST 44 H D, ALT 19, Alkaline Phosphatase 80, Lactate Dehydrogenase 519, Total Creatine Kinase 29 L, Troponin I 0.02 D, Total Protein 7.3, Albumin 3.6, Globulin 3.7, Albumin/Globulin Ratio 1.0 L 03/08/18 13:30: PT 12.5, INR 1.09, APTT 38.8 H 03/08/18 13:30: WBC 5.6 D, RBC 3.55, Hgb 9.8 L, Hct 36.4, MCV 102.5 D, MCH 27.6, MCHC 26.9 L, RDW 16.3 H, Plt Count 308, MPV 10.4, Gran % 73.8 H, Lymph % (Auto) 15.2 L, Wilson % (Auto) 6.4 H, Eos % (Auto) 4.1, Baso % (Auto) 0.5, Gran # 4.16, Lymph # (Auto) 0.9 L, Wilson # (Auto) 0.4, Eos # (Auto) 0.2, Baso # (Auto) 0.03 - RAD Interpretation Radiology Orders: 03/08/18 13:37 CHEST PORTABLE [RAD] Stat 03/08/18 14:43 HEAD W/O CONTRAST [CT] Stat - Medication Orders Current Medication Orders: Discontinued Medications Ondansetron HCl (Zofran Inj) 4 mg IVP STAT STA Stop: 03/08/18 15:20 <Shelli Melendez - Last Filed: 03/08/18 18:21> ED Course and Treatment: 1658 I discussed with son regarding urgent need for intubation or the potential consequence of or permanent disability and son gave verbal consent. Shelli PA confirmed sons wishes regarding intubation. - Lab Interpretations Microbiology Results: Microbiology Results 03/08/18 13:30 Blood-Venous Blood Culture - Final NO GROWTH AFTER 5 DAYS 03/08/18 13:30 Blood-Venous Gram Stain - Final TEST NOT PERFORMED 03/08/18 13:50 Blood-Venous Blood Culture - Final NO GROWTH AFTER 5 DAYS 03/08/18 13:50 Blood-Venous Gram Stain - Final TEST NOT PERFORMED Lab Results: 03/08/18 13:30 03/08/18 13:30 Lab Results 03/08/18 13:38: POC Glucose (mg/dL) 144 H 03/08/18 13:30: NT-Pro-B Natriuret Pep 2900 H 03/08/18 13:30: Procalcitonin 0.11 L 03/08/18 13:30: Acetaminophen < 10.0 L 03/08/18 13:30: Salicylates < 1 L 03/08/18 13:30: Alcohol, Quantitative < 10 03/08/18 13:30: Sodium 150 H, Potassium 4.8, Chloride 108 H, Carbon Dioxide 39 H , Anion Gap 9 L, BUN 31 H, Creatinine 1.8 H, Est GFR ( Amer) 35, Est GFR (Non-Af Amer) 29, Random Glucose 163 H, Calcium 8.8, Phosphorus 4.2, Magnesium 1.8, Total Bilirubin 0.3, AST 44 H D, ALT 19, Alkaline Phosphatase 80, Lactate Dehydrogenase 519, Total Creatine Kinase 29 L, Troponin I 0.02 D, Total Protein 7.3, Albumin 3.6, Globulin 3.7, Albumin/Globulin Ratio 1.0 L 03/08/18 13:30: PT 12.5, INR 1.09, APTT 38.8 H 03/08/18 13:30: WBC 5.6 D, RBC 3.55, Hgb 9.8 L, Hct 36.4, MCV 102.5 D, MCH 27.6, MCHC 26.9 L, RDW 16.3 H, Plt Count 308, MPV 10.4, Gran % 73.8 H, Lymph % (Auto) 15.2 L, Wilson % (Auto) 6.4 H, Eos % (Auto) 4.1, Baso % (Auto) 0.5, Gran # 4.16, Lymph # (Auto) 0.9 L, Wilson # (Auto) 0.4, Eos # (Auto) 0.2, Baso # (Auto) 0.03 - RAD Interpretation Radiology Orders: 03/08/18 13:37 CHEST PORTABLE [RAD] Stat 03/08/18 14:43 HEAD W/O CONTRAST [CT] Stat - Medication Orders Current Medication Orders: Acetylcysteine (Acetylcysteine 20%) 3 ml PO BID [facility] Last Admin: 03/14/18 17:31 Dose: 3 ml Albuterol/Ipratropium (Duoneb 3 Mg/0.5 Mg (3 Ml) Ud) 3 ml IH [id number] PRN PRN Reason: Shortness of Breath Last Admin: 03/13/18 12:36 Dose: 3 ml Alprazolam (Xanax) 0.5 mg PO TID PRN; Protocol PRN Reason: Anxiety Last Admin: 03/14/18 22:14 Dose: 0.5 mg Behavioural Document 03/14/18 22:14 FG (Rec: 03/14/18 22:14 FG [id number]) Maintenance Maintenance Dose Yes Nonmedicinal Nonmedicinal Interventions Therapeutic Communication Behavior Behavior for Medication: Anxiety Insomnia Arformoterol Tartrate (Brovana) 15 mcg IH [id number] [facility] Last Admin: 03/14/18 19:24 Dose: 15 mcg Aspirin (Aspirin Chewable) 81 mg PO DAILY [facility] Last Admin: 03/14/18 10:35 Dose: 81 mg Atorvastatin Calcium (Lipitor) 10 mg PO DAILY [facility] Last Admin: 03/14/18 10:37 Dose: 10 mg Budesonide (Pulmicort Respules) 0.5 mg IH [id number] [facility] Last Admin: 03/14/18 19:24 Dose: 0.5 mg Doxycycline Hyclate (Doryx) 100 mg PO Q12 [facility]; Protocol Last Admin: 03/14/18 22:14 Dose: 100 mg Ergocalciferol (Drisdol 50,000 Intl Units Cap) 1 cap PO Q7D [facility] Last Admin: 03/12/18 09:55 Dose: 1 cap Ferrous Gluconate (Fergon) 324 mg PO TID [facility] Last Admin: 03/14/18 17:33 Dose: 324 mg Heparin Sodium (Porcine) (Heparin) 5,000 units SC 0600,1400,2200 [facility]; Protocol Last Admin: 03/14/18 22:13 Dose: 5,000 units Subcutaneous Administrations Document 03/14/18 22:13 FG (Rec: 03/14/18 22:13 FG [id number]) Injection Site MAR Injection Site Right Abdomen Charges for Administration # of Subcutaneous Administrations 1 Insulin Detemir (Levemir) 10 unit SC [facility] Last Admin: 03/14/18 22:15 Dose: 10 unit MAR Blood Glucose Document 03/14/18 22:15 FG (Rec: 03/14/18 22:15 FG [id number]) Blood Glucose Finger Stick Blood Glucose (70-120) 339 Subcutaneous Administrations Document 03/14/18 22:15 FG (Rec: 03/14/18 22:15 FG [id number]) Injection Site MAR Injection Site Left Arm Charges for Administration # of Subcutaneous Administrations 1 Insulin Human Lispro (Humalog) 10 units SC ACL [facility] Last Admin: 03/14/18 12:35 Dose: 10 units MAR Blood Glucose Document 03/14/18 12:35 LMN (Rec: 03/14/18 14:44 LMN [id number]) Blood Glucose Finger Stick Blood Glucose (70-120) 408 Subcutaneous Administrations Document 03/14/18 12:35 LMN (Rec: 03/14/18 14:44 LMN [id number]) Charges for Administration # of Subcutaneous Administrations 1 Insulin Human Lispro (Humalog) 15 units SC AC [facility] Last Admin: 03/14/18 17:31 Dose: 15 units MAR Blood Glucose Document 03/14/18 17:31 LMN (Rec: 03/14/18 17:32 LMN [id number]) Blood Glucose Finger Stick Blood Glucose (70-120) 345 Subcutaneous Administrations Document 03/14/18 17:31 LMN (Rec: 03/14/18 17:32 LMN [id number]) Injection Site MAR Injection Site Right Arm Charges for Administration # of Subcutaneous Administrations 1 Insulin Human Regular (Humulin R Low) 0 units SC ACHS [facility]; Protocol Last Admin: 03/14/18 22:16 Dose: 2 units MAR Blood Glucose Document 03/14/18 22:16 FG (Rec: 03/14/18 22:16 FG [id number]) Blood Glucose Finger Stick Blood Glucose (70-120) 339 Subcutaneous Administrations Document 03/14/18 22:16 FG (Rec: 03/14/18 22:16 FG [id number]) Injection Site MAR Injection Site Right Arm Charges for Administration # of Subcutaneous Administrations 1 Losartan Potassium (Cozaar) 50 mg PO DAILY [facility] Last Admin: 03/14/18 10:35 Dose: 50 mg MAR Pulse and Blood Pressure Document 03/14/18 10:35 LMN (Rec: 03/14/18 10:36 LMN [id number]) Pulse Pulse Rate (60-90) 79 Blood Pressure Blood Pressure (100/60-150/90) 138/67 Montelukast Sodium (Singulair) 10 mg PO HS [facility] Last Admin: 03/14/18 22:15 Dose: 10 mg Oxycodone/Acetaminophen (Percocet 5/325 Mg Tab) 1 tab PO Q8H PRN PRN Reason: Pain, moderate (4-7) Stop: 03/16/18 18:40 Last Admin: 03/14/18 10:28 Dose: 1 tab [facility] Pain Assessment Document 03/14/18 10:28 LMN (Rec: 03/14/18 10:28 LMN [id number]) Pain Reassessment Is this a pain reassessment? No Presence of Pain Presence of Pain No Re-Assess: [facility] Pain Assessment Document 03/14/18 11:28 LMN (Rec: 03/14/18 14:46 LMN [id number]) Pain Reassessment Is this a pain reassessment? Yes Presence of Pain Presence of Pain No Pantoprazole Sodium (Protonix Ec Tab) 40 mg PO 0600 [facility] Last Admin: 03/14/18 05:32 Dose: 40 mg Prednisone (Prednisone Tab) 30 mg PO DAILY [facility] Vitamin B Complex/Vit C/Folic Acid (Nephro-Enrrique) 1 tab PO 0800 [facility] Last Admin: 03/14/18 08:29 Dose: 1 tab Discontinued Medications Albuterol/Ipratropium (Duoneb 3 Mg/0.5 Mg (3 Ml) Ud) 3 ml IH Q4H [facility] Stop: 03/09/18 00:16 Last Admin: 03/09/18 04:10 Dose: 3 ml Doxycycline Hyclate (Doryx) 100 mg PO Q12 [facility]; Protocol Stop: 03/16/18 22:01 Last Admin: 03/13/18 11:18 Dose: 100 mg Furosemide (Lasix) 40 mg PO DAILY [facility] Last Admin: 03/14/18 10:36 Dose: 40 mg MAR Blood Pressure Document 03/14/18 10:36 LMN (Rec: 03/14/18 10:36 LMN [id number]) Blood Pressure Blood Pressure (100/60-150/90) 138/67 Heparin Sodium (Porcine) (Heparin) 5,000 units SC Q8H [facility]; Protocol Last Admin: 03/10/18 17:00 Dose: 5,000 units Subcutaneous Administrations Document 03/10/18 17:00 [id number] (Rec: 03/10/18 17:00 [id number]) Injection Site MAR Injection Site Right Abdomen Charges for Administration # of Subcutaneous Administrations 1 Vancomycin HCl (Vancomycin 1gm) 1 gm in 250 mls @ 167 mls/hr IVPB STAT STA; Protocol Stop: 03/08/18 17:06 Last Admin: 03/08/18 23:02 Dose: Not Given Non-Admin Reason: as per dr rushing do not give Piperacillin Sod/Tazobactam Sod (Zosyn 3.375 In Ns 100ml) 100 mls @ 200 mls/hr IVPB STAT STA; Protocol Stop: 03/08/18 16:05 Last Admin: 03/08/18 17:14 Dose: 200 mls/hr eMAR Start Stop Document 03/08/18 17:14 AMA (Rec: 03/08/18 17:15 AMA [id number]) Intravenous Solution Start Date 03/08/18 Start Time 17:15 Piperacillin Sod/Tazobactam Sod (Zosyn 3.375 In Ns 100ml) 100 mls @ 25 mls/hr IVPB Q12 [facility]; Protocol Stop: 03/09/18 01:59 Last Admin: 03/08/18 23:03 Dose: 25 mls/hr eMAR Start Stop Document 03/08/18 23:03 KGD (Rec: 03/08/18 23:03 KGD [id number]) Intravenous Solution Start Date 03/08/18 Start Time 23:03 Doxycycline Hyclate 100 mg/ (Sodium Chloride) 100 mls @ 100 mls/hr IVPB Q12 [facility]; Protocol Last Admin: 03/11/18 18:10 Dose: Not Given Non-Admin Reason: medication discontinued Fentanyl Citrate (Fentanyl Citrate/Sodium Chloride 1 Mg/100 Ml) 1,000 mcg in 100 mls @ 2 mls/hr IV .Q24H ST[facility]; Protocol Stop: 03/09/18 18:01 Last Titration: 03/08/18 21:15 Dose: 100 mcg/hr, 10 mls/hr Hernandez Agitation Sedation Document 03/08/18 21:15 KGD (Rec: 03/08/18 21:15 KGD [id number]) Hernandez Agitation Sedation Scale Hernandez Agitation Sedation Scale Score +3 Very Agitated: Pulls or removes tube(s) or catheter(s) ; aggressive Titration Intervention Document 03/08/18 21:15 KGD (Rec: 03/08/18 21:15 KGD [id number]) Titration Intake Titration Intake 50 Cumulative Intake 50 Cumulative Intake (Rx) 50 Waste Amount 0 Container Volume 50 Titration Dosing Titration Dose 100 IV Rate 10 Intake/Decrease Increased Cumulative Dose 500 Fentanyl Citrate (Fentanyl Citrate/Sodium Chloride 1 Mg/100 Ml) 1,000 mcg in 100 mls @ 2 mls/hr IV .Q24H PRN; Protocol PRN Reason: TITRATE PER MD ORDER Last Titration: 03/09/18 15:05 Dose: 0 mcg/hr, 0 mls/hr Hernandez Agitation Sedation Document 03/09/18 15:05 ALIPM (Rec: 03/09/18 15:31 [facility] Hernandez Agitation Sedation Scale Hernandez Agitation Sedation Scale Score 0 Alert and Calm: Spontaneously pays attention to care asst Titration Intervention Document 03/09/18 15:05 ALIPM (Rec: 03/09/18 15:31 ALIPM [facility]-4) Titration Intake Titration Intake 40 Cumulative Intake 42 Cumulative Intake (Rx) 42 Waste Amount 0 Container Volume 58 Titration Dosing Titration Dose 0 IV Rate 0 Intake/Decrease Paused Cumulative Dose 420 Cefepime HCl (Maxipime 1gm) 1 gm in 100 mls @ 25 mls/hr IVPB Q12 [facility]; Protocol Last Admin: 03/13/18 11:18 Dose: 25 mls/hr eMAR Start Stop Document 03/13/18 11:18 LMN (Rec: 03/13/18 11:18 LMN [id number]) Intravenous Solution Start Date 03/13/18 Start Time 11:18 Propofol (Diprivan) 1,000 mg in 100 mls @ 2.177 mls/hr IV .Q24H PRN; Protocol PRN Reason: TITRATE PER MD ORDER Last Titration: 03/09/18 15:05 Dose: 0 mcg/kg/min, 0 mls/hr Hernandez Agitation Sedation Document 03/09/18 15:05 ALIPM (Rec: 03/09/18 15:30 ALIPM [facility]-ICU-4) Hernandez Agitation Sedation Scale Hernandez Agitation Sedation Scale Score 0 Alert and Calm: Spontaneously pays attention to care asst Titration Intervention Document 03/09/18 15:05 ALIPM (Rec: 03/09/18 15:30 ALIPM [facility]-ICU-4) Titration Intake Titration Intake 19 Cumulative Intake 30 Cumulative Intake (Rx) 30 Waste Amount 0 Container Volume 70 Titration Dosing Titration Dose 0 IV Rate 0 Intake/Decrease Paused Cumulative Dose 300 Insulin Human Lispro (Humalog Med) 0 units SC [facility]; Protocol Last Admin: 03/13/18 09:44 Dose: Not Given Non-Admin Reason: discontinued Insulin Human Lispro (Humalog) 8 units SC [facility] Last Admin: 03/13/18 09:45 Dose: Not Given Non-Admin Reason: discontinued Insulin Human Lispro (Humalog) 15 units SC [facility] Last Admin: 03/13/18 17:19 Dose: 15 units MAR Blood Glucose Document 03/13/18 17:19 LMN (Rec: 03/13/18 17:19 LMN [id number]) Blood Glucose Finger Stick Blood Glucose (70-120) 320 Subcutaneous Administrations Document 03/13/18 17:19 LMN (Rec: 03/13/18 17:19 LMN [id number]) Injection Site MAR Injection Site Left Arm Charges for Administration # of Subcutaneous Administrations 1 Insulin Human Lispro (Humalog) 15 units SC ONCE ONE Stop: 03/13/18 08:31 Last Admin: 03/13/18 09:03 Dose: 15 units MAR Blood Glucose Document 03/13/18 09:03 LMN (Rec: 03/13/18 09:03 LMN [id number]) Blood Glucose Finger Stick Blood Glucose (70-120) 395 Subcutaneous Administrations Document 03/13/18 09:03 LMN (Rec: 03/13/18 09:03 LMN [id number]) Injection Site MAR Injection Site Left Arm Charges for Administration # of Subcutaneous Administrations 1 Insulin Human Lispro (Humalog) 10 units SC ONCE ONE Stop: 03/13/18 17:46 Last Admin: 03/13/18 17:59 Dose: 10 units MAR Blood Glucose Document 03/13/18 17:59 LMN (Rec: 03/13/18 17:59 LMN [id number]) Blood Glucose Finger Stick Blood Glucose (70-120) 320 Subcutaneous Administrations Document 03/13/18 17:59 LMN (Rec: 03/13/18 17:59 LMN [id number]) Injection Site MAR Injection Site Left Arm Charges for Administration # of Subcutaneous Administrations 1 Insulin Human Regular (Humulin R Low) 0 units SC [facility]; Protocol Last Admin: 03/11/18 18:09 Dose: Not Given Non-Admin Reason: duplicate order Insulin Human Regular (Humulin R) 5 units SC ONCE ONE Stop: 03/11/18 02:13 Last Admin: 03/11/18 02:27 Dose: 5 units Subcutaneous Administrations Document 03/11/18 02:27 OWUSR (Rec: 03/11/18 02:27 OWUSR [id number]) Injection Site MAR Injection Site Left Arm Charges for Administration # of Subcutaneous Administrations 1 Insulin Human Regular (Humulin R) 8 units SC ONCE ONE Stop: 03/12/18 03:15 Last Admin: 03/12/18 03:33 Dose: 8 units Subcutaneous Administrations Document 03/12/18 03:33 OWUSR (Rec: 03/12/18 03:34 OWUSR [id number]) Injection Site MAR Injection Site Right Abdomen Charges for Administration # of Subcutaneous Administrations 1 Insulin Human Regular (Humulin R) 8 units SC ONCE ONE Stop: 03/13/18 00:12 Last Admin: 03/13/18 00:28 Dose: 8 units MAR Blood Glucose Document 03/13/18 00:28 EA (Rec: 03/13/18 00:28 EA [id number]) Blood Glucose Finger Stick Blood Glucose (70-120) 500 Subcutaneous Administrations Document 03/13/18 00:28 EA (Rec: 03/13/18 00:28 EA [id number]) Injection Site MAR Injection Site Left Deltoid Charges for Administration # of Subcutaneous Administrations 1 Insulin Human Regular (Humulin R) 5 units SC ONCE ONE Stop: 03/13/18 08:40 Last Admin: 03/13/18 09:03 Dose: 5 units MAR Blood Glucose Document 03/13/18 09:03 LMN (Rec: 03/13/18 09:03 LMN [id number]) Blood Glucose Finger Stick Blood Glucose (70-120) 395 Subcutaneous Administrations Document 03/13/18 09:03 LMN (Rec: 03/13/18 09:03 LMN [id number]) Injection Site MAR Injection Site Left Arm Charges for Administration # of Subcutaneous Administrations 1 Methylprednisolone (Solu-Medrol) 125 mg IVP STAT STA Stop: 03/08/18 15:37 Last Admin: 03/08/18 17:15 Dose: 125 mg IVP Administration Document 03/08/18 17:15 AMA (Rec: 03/08/18 17:15 AMA [id number]) Charges for Administration # of IVP Administrations 1 Methylprednisolone (Solu-Medrol) 40 mg IVP Q8H LUCIANO Last Admin: 03/10/18 17:00 Dose: 40 mg IVP Administration Document 03/10/18 17:00 [id number] (Rec: 03/10/18 17:00 [id number] [id number]) Charges for Administration # of IVP Administrations 1 Methylprednisolone (Solu-Medrol) 40 mg IVP 0600,1400,2200 LUCIANO Last Admin: 03/13/18 06:05 Dose: 40 mg IVP Administration Document 03/13/18 06:05 EA (Rec: 03/13/18 06:05 EA [id number]) Charges for Administration # of IVP Administrations 1 Ondansetron HCl (Zofran Inj) 4 mg IVP STAT STA Stop: 03/08/18 15:20 Last Admin: 03/08/18 15:32 Dose: 4 mg IVP Administration Document 03/08/18 15:32 AMA (Rec: 03/08/18 15:34 AMA [id number]) Charges for Administration # of IVP Administrations 1 Ondansetron HCl (Zofran Inj) 4 mg IVP STAT STA Stop: 03/08/18 18:25 Last Admin: 03/08/18 19:00 Dose: 4 mg IVP Administration Document 03/08/18 19:00 AMA (Rec: 03/08/18 19:00 AMA [id number]) Charges for Administration # of IVP Administrations 1 Oxycodone/Acetaminophen (Percocet 5/325 Mg Tab) 1 tab PO Q8H PRN PRN Reason: Pain, moderate (4-7) Stop: 03/13/18 16:38 Last Admin: 03/13/18 02:48 Dose: 1 tab [facility] Pain Assessment Document 03/13/18 02:48 EA (Rec: 03/13/18 02:49 EA [id number]) Pain Reassessment Is this a pain reassessment? No Sleep Is patient sleeping during reassessment? No Presence of Pain Presence of Pain Yes Pain Scale Used Protocol: PSCALES Pain Scale Used Numeric Location Pain Location Body Site Leg Description Description Intermittent Re-Assess: [facility] Pain Assessment Document 03/13/18 03:48 LMN (Rec: 03/13/18 18:00 LMN [id number]) Pain Reassessment Is this a pain reassessment? Yes Presence of Pain Presence of Pain No Pantoprazole Sodium (Protonix Inj) 40 mg IVP DAILY [facility] Last Admin: 03/13/18 11:20 Dose: 40 mg IVP Administration Document 03/13/18 11:20 LMN (Rec: 03/13/18 11:20 LMN [id number]) Charges for Administration # of IVP Administrations 1 Prednisone (Prednisone Tab) 40 mg PO DAILY [facility] Last Admin: 03/14/18 10:35 Dose: 40 mg <Sebastian Luna - Last Filed: 03/14/18 22:55> Procedures - Intubation Time of Intubation: 17:00 (approximate time) Intubation Method: orotracheal Tube Size (cm): 7.5 Medications: Succinylcholine (with etomidate prior ) Breath Sounds after Intubation: equal Intubation Complications: no complications Post Intubation Xray: Yes Progress/Xray Impression: ett within trachea <Sebastian Luna - Last Filed: 03/14/18 22:55> - Scribe Statement The provider has reviewed the documentation as recorded by the Rafa Ackerman Provider Scribe Attestation: All medical record entries made by the Scribe were at my direction and personally dictated by me. I have reviewed the chart and agree that the record accurately reflects my personal performance of the history, physical exam, medical decision making, and the department course for this patient. I have also personally directed, reviewed, and agree with the discharge instructions and disposition. <Shelli Melendez - Last Filed: 03/08/18 18:21> Disposition/Present on Arrival - Present on Arrival Any Indicators Present on Arrival: No History of DVT/PE: No History of Uncontrolled Diabetes: No Urinary Catheter: No History of Decub. Ulcer: No History Surgical Site Infection Following: None - Disposition Have Diagnosis and Disposition been Completed?: Yes Disposition Time: 16:00 Patient Plan: Admission <Shelli Melendez - Last Filed: 03/08/18 18:21> <Sebastian Luna - Last Filed: 03/14/18 22:55> - Disposition Diagnosis: Respiratory distress, Hypercapnic acidosis, Renal failure, Pleural effusion, Mucus plugging of bronchi, PNA (pneumonia) Disposition: HOSPITALIZED Patient Problems: Current Active Problems Problem Status Onset Hypercapnic acidosis Acute Mucus plugging of bronchi Acute PNA (pneumonia) Acute Pleural effusion Acute Renal failure Acute Respiratory distress Acute Condition: GUARDED
[2018-03-08 15:31] LABS: ARTERIAL BLOOD GAS HEMOGLOBIN 9.3 g/dL (11.7-17.4); ARTERIAL BLOOD GAS O2 CAPACITY 12.7 mL/dl (16-24); ARTERIAL BLOOD GAS O2 CONTENT 12.5 ML/dl (15-23); ARTERIAL BLOOD GAS O2 SAT 98.5 % (95-98); ARTERIAL BLOOD GAS PCO2 107 mm/Hg (35-45); ARTERIAL BLOOD GAS TCO2 42.3 mmol.L (22-28)
[2018-03-08 15:34] LABS: ARTERIAL BLOOD GAS PH 7.17 (7.35-7.45)
[2018-03-08] MEDS ORDERED: Piperacillin/Tazobact 3.375 gm 100 ML IVPB STA (15:36)
[2018-03-08] MEDS ORDERED: Vancomycin 1gm in NS 250ml 1 GM/250 ML BAG IVPB STA (15:37)
[2018-03-08] MEDS ORDERED: Etomidate 20 mg/10ml Inj IV ONE (15:50)
[2018-03-08] MEDS ORDERED: Succinylcholine 200 mg/10 ml Inj IV ONE (15:51)
[2018-03-08] MEDS ORDERED: Fentanyl 1000mcg/100ml NS 1,000 MCG/100 ML BAG IV STA (18:02)
--- NOTE | 2018-03-08 18:21 | RAD ---
Date of service: 03/08/2018 HISTORY: Post intubation COMPARISON: 03/08/2018 FINDINGS: Endotracheal tube terminates in the mid trachea. The right IJV line terminates in the SVC. LUNGS: There is complete opacification of the right hemithorax. The left lung is well inflated and clear. PLEURA: No pleural effusions or pneumothorax. CARDIOVASCULAR: Shift of trachea and mediastinum to the right. OSSEOUS STRUCTURES: Within normal limits for the patient's age. VISUALIZED UPPER ABDOMEN: Normal. OTHER FINDINGS: None. IMPRESSION: Complete opacification of the right hemithorax with shift of trachea and mediastinum to the right most compatible with right lung collapse. Endotracheal tube terminates in the mid trachea.
[2018-03-08 18:22] LABS: URINE BILIRUBIN NEGATIVE (NEGATIVE); URINE BLOOD TRACE-INTACT (NEGATIVE); URINE GLUCOSE (UA) NEGATIVE (NEGATIVE); URINE LEUKOCYTE ESTERASE NEGATIVE Leu/uL (NEGATIVE); URINE PROTEIN 100 mg/dL (<30 mg/dL); URINE UROBILINOGEN 0.2 E.U./dL (<1 E.U./dL)
[2018-03-08 18:37] LABS: URINE APPEARANCE CLEAR (CLEAR); URINE COLOR YELLOW (YELLOW)
[2018-03-08 18:46] LABS: BARBITURATES, UR NEGATIVE (NEGATIVE); BENZODIAZEPINES, UR POSITIVE (NEGATIVE); OPIATES, UR NEGATIVE (NEGATIVE); PHENCYCLIDINE, UR NEGATIVE (NEGATIVE)
[2018-03-08] MEDS: MethylPREDNISolone 40 mg Vial IVP SCH ×2 (18:52→19:00)
[2018-03-08 18:55] LABS: URINE BACTERIA MANY /hpf
[2018-03-08] MEDS ORDERED: Fentanyl 1000mcg/100ml NS 1,000 MCG/100 ML BAG IV PRN (18:56)
[2018-03-08] MEDS: Albuterol-Ipratrop 3 mg / 0.5 (3 ml) UD IH SCH ×2 (18:59→23:27)
--- NOTE | 2018-03-08 19:08 | CON ---
DATE OF CONSULTATION: 03/08/2018 HISTORY OF PRESENT ILLNESS: This is a 57-year-old lady who is an active smoker and whose past medical history includes COPD, asthma, breast cancer, and who presented to [facility] ER by a way of EMS, accompanied by sons, for altered mental status. One hour prior to arrival, the patient was having normal conversation and was able to walk around, however then she fell unconscious and he called EMS at that point. As per son, the patient has been in and out of consciousness for the past 2 weeks, but the patient refused to come to the hospital at that time. However, today, she remains unconscious and unresponsive and he brought her into the hospital. In ER, the patient was found to have a large right-sided pleural effusion and has been intubated for hypercapnic respiratory failure. No fever, no chills, no sweats, no nausea, no vomiting, no diarrhea, and no constipation. PAST MEDICAL HISTORY: COPD, asthma, breast cancer, anxiety, chronic back pain, IDDM, recurrent UTIs. FAMILY HISTORY: Noncontributory. SOCIAL HISTORY: The patient is active smoker, also has history of alcohol abuse and substance abuse. HOME MEDICATIONS: Advair, aspirin, Pepcid, oxycodone, and simvastatin. ALLERGIES: LEVOFLOXACIN AND NYSTATIN. REVIEW OF SYSTEMS: Review of 12-organ system other than mentioned in the history of present illness is negative. PHYSICAL EXAMINATION: VITAL SIGNS: Temperature 98.2, heart rate 88, blood pressure 146/67, respiratory rate 18, oxygen saturation 100% on room air. HEENT: Head and neck atraumatic. LUNGS: Decreased breath sounds bilaterally. Faint wheezes bilaterally. HEART: Regular rate and rhythm. S1 and S2 distant. ABDOMEN: Soft, nontender, nondistended. MUSCULOSKELETAL: 1+ bilateral pedal and ankle edema. There is erythema in the right lower extremity suggestive of presence of active cellulitis. SKIN: Moist and erythematous in the right lower extremity. PSYCH: The patient is very lethargic and confused. LABORATORY DATA: WBC 5.6, hemoglobin 9.8, platelet count 308,000. Sodium 150, potassium 4.8, chloride 108, carbon dioxide 39, BUN 31, creatinine 1.8, glucose 144, calcium 8.8. AST 44, ALT 19, total bilirubin 0.3. Troponin 0.02, albumin 3.6. INR 1.09. Salicylates less than 1. Alcohol less than 10. Chest x-ray showed whiteout/loss of volume of the left side. EKG showed no specific ischemic changes. The patient did not tolerate CAT scan of the head as she was moving and uncooperative. ASSESSMENT: This 57-year-old lady with severe chronic obstructive pulmonary disease came with hypercapnic respiratory failure most likely secondary to chronic obstructive pulmonary disease exacerbation in the setting of community-acquired pneumonia complicated by pleural effusion. PLAN: As the patient is afebrile and does not have leukocytosis, I doubt presence of empyema. Of note, her blood pressure is also stable. The origin of pleural effusion will be worked up further. Meanwhile, the family requested intubation and the patient will be intubated. Septic workup initiated. Blood culture, urine culture, urine for Legionella, and streptococcal antigen will be sent. Procalcitonin will be ordered. Thoracentesis, once Airway Breathing and Circulation are stabilized, will be in order. Echocardiogram will be ordered as well. Patient was intubated by ER physicians. We will proceed with protective lung ventilation strategy maintaining plateau pressure less than 30 cm of water. We will continue with conservative fluid and oxygen management. Head of bed elevated more than 35 degrees. Oral hygiene. I will continue with daily sedation vacation and daily weaning trials. Bronchodilators, steroid taper, and antibiotics will be ordered. We will try to avoid hyperventilation and maintain I:E ratio of more than 1:2.5. We will continue with DVT/GI prophylaxis. NPO for now. ccm time 40 min Rey Santiago MD SAADIA
[2018-03-08 20:58] LABS: ARTERIAL BLOOD GAS HCO3 38.6 mmol/L (21-28); ARTERIAL BLOOD GAS HEMOGLOBIN 9.2 g/dL (11.7-17.4); ARTERIAL BLOOD GAS O2 CAPACITY 12.7 mL/dl (16-24); ARTERIAL BLOOD GAS O2 CONTENT 12.6 ML/dl (15-23); ARTERIAL BLOOD GAS O2 SAT 98.9 % (95-98); ARTERIAL BLOOD GAS PCO2 70 mm/Hg (35-45); ARTERIAL BLOOD GAS PH 7.35 (7.35-7.45); ARTERIAL BLOOD GAS TCO2 40.7 mmol.L (22-28)
[2018-03-08] MEDS ORDERED: Piperacillin/Tazobact 3.375 gm 100 ML IVPB SCH (22:00)
[2018-03-09 00:19] VITALS: BMI 26.6
--- NOTE | 2018-03-09 02:59 | CON ---
DATE: 03/08/2018 PULMONARY CRITICAL CARE CONSULT REFERRING PHYSICIAN: Dr. Sosa. REASON FOR CONSULTATION: Respiratory failure, chronic lung disease. HISTORY OF PRESENT ILLNESS: This is a 57 years old female known to me from previous admission, noncompliant with followup and with medical instructions, including actively smoking, has severe lung disease, also has history of breast cancer, recurrent UTI, diabetes. She lives with her two kids, daughter and son. According to son, she had been lethargic from the last two weeks, consciousness was marginal about whole day today, apparently she did not wake up and he called EMS and brought her to ER where she was found to be unresponsive with pCO2 higher than 100, pH was 7.1. She was intubated and vomited, probably there is component of aspiration. No hemoptysis, no hematemesis, no hematuria. No diarrhea reported. PAST MEDICAL HISTORY: As per history of present illness. ALLERGIES: TO LEVAQUIN AND STATIN. SOCIAL HISTORY: Active smoker and also history of alcohol abuse and substance abuse. FAMILY HISTORY: No significant cardiopulmonary disease reported. MEDICATIONS: She is on aspirin 81 mg daily, doxycycline 100 mg twice a day, DuoNeb every 4 hours. She is on IV fentanyl, heparin 5000 units subcu every 8 hours, Lipitor 10 mg daily, Protonix 40 mg daily, Solu-Medrol 40 mg every 8 hours, vancomycin 1 g IV daily, Zosyn 3.375 g IV every 12 hours. REVIEW OF SYSTEMS: Before intubation, she was very lethargic, in and out of consciousness, had episode of vomiting during intubation. No hematuria, no diarrhea. No leg swelling reported. There was no chest pain. PHYSICAL EXAMINATION: GENERAL: Intubated, sedated. VITAL SIGNS: Temperature is 98, heart rate is 107, respiratory rate is 22, blood pressure 129/75, pulse ox 97% on ventilator. HEENT: Moist mucous membrane. ET tube, no secretion. NECK: Supple. No JVD. LUNGS: No breath sounds on the right lung, wheezing on the left lung. HEART: S1 and S2. ABDOMEN: Soft, nontender. No organomegaly. EXTREMITIES: No edema. NEUROLOGIC: Intubated and sedated. LABORATORY DATA: Hemoglobin 9.8, hematocrit 36.4, WBC 5.6, platelet count is 308. INR 1.09, PTT 39. ABG on admission was pH 7.17, pCO2 of 107, O2 of 96, this is on supplemental oxygen. After intubation, pH was 7.35, pCO2 of 70, O2 of 105 on 50% oxygen on ventilator. Her sodium 150, potassium 4.8, chloride 108, bicarbonate 39, BUN 31, creatinine 1.8, glucose 144, calcium 8.8, phosphorus 4.2, magnesium 1.8, AST 44, ALT 19, alk phos is 80. Albumin is 3.6. Troponin is less than 0.02. ProBNP 2900. Urine benzodiazepine was positive. Chest x-ray shows white-out right lung, effusion versus atelectasis or combination. IMPRESSION: Respiratory failure, chronic obstructive lung disease, history of breast cancer, anemia, diabetes, recurrent urinary tract infection, noncompliant, active smoker, cannot rule out primary metastatic disease to the right lung. Case discussed in detail with ER physician drilling assistant and attending. We will get CAT scan of the chest to evaluate her right lung. May need ultrasound-guided thoracentesis. Continue antibiotics, inhaled bronchodilators, steroids. Overall poor prognosis. Thank you and we will follow with you. Lisa Rucker MD
[2018-03-09] MEDS: Albuterol-Ipratrop 3 mg / 0.5 (3 ml) UD IH SCH (04:10)
[2018-03-09 05:18] LABS: ARTERIAL BLOOD GAS HCO3 33.9 mmol/L (21-28); ARTERIAL BLOOD GAS HEMOGLOBIN 8.6 g/dL (11.7-17.4); ARTERIAL BLOOD GAS O2 CAPACITY 11.9 mL/dl (16-24); ARTERIAL BLOOD GAS O2 CONTENT 11.4 ML/dl (15-23); ARTERIAL BLOOD GAS O2 SAT 95.9 % (95-98); ARTERIAL BLOOD GAS PCO2 51 mm/Hg (35-45); ARTERIAL BLOOD GAS PH 7.43 (7.35-7.45); ARTERIAL BLOOD GAS TCO2 35.5 mmol.L (22-28)
[2018-03-09] MEDS: MethylPREDNISolone 40 mg Vial IVP SCH ×3 (06:16→16:39)
--- NOTE | 2018-03-09 06:52 | CT ---
Date of service: 03/08/2018 PROCEDURE: CT HEAD WITHOUT CONTRAST. HISTORY: AMS COMPARISON: Comparison is made with 02/05/2018 TECHNIQUE: Axial computed tomography images were obtained through the head/brain without intravenous contrast. Radiation dose: Total exam DLP = 1122.38 mGy-cm. This CT exam was performed using one or more of the following dose reduction techniques: Automated exposure control, adjustment of the mA and/or kV according to patient size, and/or use of iterative reconstruction technique. FINDINGS: HEMORRHAGE: No intracranial hemorrhage. BRAIN: No mass effect or edema. No atrophy or chronic microvascular ischemic changes. VENTRICLES: Unremarkable. No hydrocephalus. CALVARIUM: Unremarkable. PARANASAL SINUSES: Ethmoid sinuses mucosal thickening noted. MASTOID AIR CELLS: Bilateral mastoid effusions noted. OTHER FINDINGS: The patient is intubated. ET tube is seen IMPRESSION: No evidence of acute intracranial hemorrhage intracranial collection mass effect or midline shift. Ethmoid sinuses mucosal thickening and bilateral mastoid effusions. Preliminary report was submitted by [facility] Radiology contains concordant findings.
[2018-03-09 07:08] LABS: GRAN # 4.84 (1.4-6.5); GRAN % 87.8 % (50.0-68.0); HEMOGLOBIN 8.9 g/dL (12.0-16.0); LYMPH # 0.5 (1.2-3.4); LYMPH % 9.1 % (22.0-35.0); MEAN CELL VOLUME 99.7 fl (80.0-105.0); MEAN CORPUSCULAR HEMOGLOBIN 26.9 pg (25.0-35.0); MEAN PLATELET VOLUME 10.6 fl (7.0-11.0); MONO # 0.2 (0.1-0.6); MONO % 3.1 % (1.0-6.0); RBC 3.31 10^6/uL (3.5-6.1); RED CELL DISTRIBUTION WIDTH 16.7 % (11.5-14.5); WHITE BLOOD COUNT 5.5 10^3/uL (4.5-11.0)
[2018-03-09 07:30] LABS: ALB/GLOB RATIO 1.1 (1.1-1.8); ALBUMIN 3.5 g/dL (3.0-4.8); CALCIUM 8.6 mg/dL (8.4-10.5)
--- NOTE | 2018-03-09 08:04 | CP.CCUPN ---
<Lester Oseguera - Last Filed: 03/09/18 11:57> CCU Subjective - Physician Review Subjective (Free Text): Lester Oseguera PGY-1 Progress Note for ICU Patient seen and evaluated at bedside. Patient intubated. Further history and ROS unobtainable at this time due to patient clinical status. CCU Objective - Vital Signs / Intake & Output Intake and Output (Last 8hrs): Intake & Output 03/08/18 03/09/18 03/09/18 22:59 06:59 14:59 Intake Total 50 Balance 50 Weight 72.575 kg Intake: IV 50 - Physical Exam Head: Positive for: Atraumatic, Normocephalic Pupils: Positive for: PERRL Extroacular Muscles: Positive for: EOMI Conjunctiva: Positive for: Normal Mouth: Positive for: Moist Mucous Membranes Pharnyx: Positive for: Other (Intubated) Neck: Positive for: Normal Range of Motion Respiratory/Chest: Positive for: Good Air Exchange, Decreased Breath Sounds (Right base). Negative for: Clear to Auscultation, Respiratory Distress, Accessory Muscle Use, Wheezes, Rales, Rhonchi, Tachypneic Cardiovascular: Positive for: Regular Rate and Rhythm, Normal S1, S2. Negative for: Murmurs Abdomen: Negative for: Tenderness, Distention, Peritoneal Signs Back: Positive for: Normal Inspection Upper Extremity: Positive for: Normal Inspection. Negative for: Cyanosis, Edema Lower Extremity: Positive for: Normal Inspection. Negative for: Edema Neurological: Negative for: GCS=15, Speech Normal Skin: Positive for: Warm, Dry, Normal Color. Negative for: Rashes Psychiatric: Positive for: Alert. Negative for: Oriented x 3 - Medications Active Medications: Active Medications Generic Name Dose Route Start Last Admin Trade Name Freq PRN Reason Stop Dose Admin Aspirin 81 mg 03/09/18 10:00 Aspirin Chewable PO DAILY [facility] Atorvastatin Calcium 10 mg 03/09/18 10:00 Lipitor PO DAILY [facility] Heparin Sodium (Porcine) 5,000 units 03/08/18 16:30 03/09/18 00:00 Heparin SC 5,000 units Q8H [facility] Administration Protocol Vancomycin HCl 1 gm in 250 mls @ 167 mls/hr 03/09/18 10:00 Vancomycin 1gm IVPB DAILY [facility] Protocol Doxycycline Hyclate 100 mg/ 100 mls @ 100 mls/hr 03/08/18 22:00 03/08/18 23:03 Sodium Chloride IVPB 100 mls/hr Q12 [facility] Administration Protocol Fentanyl Citrate 1,000 mcg in 100 mls @ 2 mls/hr 03/08/18 18:02 03/08/18 21:15 Fentanyl Citrate/Sodium Chloride 1 Mg/100 Ml IV 03/09/18 18:01 100 mcg/hr .Q24H STA 10 mls/hr Titration Protocol 20 MCG/HR Fentanyl Citrate 1,000 mcg in 100 mls @ 2 mls/hr 03/08/18 18:56 03/09/18 06:45 Fentanyl Citrate/Sodium Chloride 1 Mg/100 Ml IV 40 mcg/hr .Q24H PRN 4 mls/hr TITRATE PER MD ORDER Administration Protocol 20 MCG/HR Cefepime HCl 1 gm in 100 mls @ 25 mls/hr 03/09/18 10:00 Maxipime 1gm IVPB Q12 [facility] Protocol Methylprednisolone 40 mg 03/08/18 16:15 03/09/18 06:16 Solu-Medrol IVP 40 mg Q8H [facility] Administration Pantoprazole Sodium 40 mg 03/09/18 10:00 Protonix Inj IVP DAILY [facility] - Patient Studies Lab Studies: Lab Studies 03/09/18 03/09/18 03/09/18 Range/Units 06:00 06:00 06:00 WBC 5.5 (4.5-11.0) 10^3/uL RBC 3.31 L (3.5-6.1) 10^6/uL Hgb 8.9 L (12.0-16.0) g/dL Hct 33.0 L (36.0-48.0) % MCV 99.7 (80.0-105.0) fl MCH 26.9 (25.0-35.0) pg MCHC 27.0 L (31.0-37.0) g/dl RDW 16.7 H (11.5-14.5) % Plt Count 287 (120.0-450.0) 10^3/uL MPV 10.6 (7.0-11.0) fl Gran % 87.8 H (50.0-68.0) % Lymph % (Auto) 9.1 L (22.0-35.0) % [place] % (Auto) 3.1 (1.0-6.0) % Eos % (Auto) 0.0 L (1.5-5.0) % Baso % (Auto) 0.0 (0.0-3.0) % Gran # 4.84 (1.4-6.5) Lymph # (Auto) 0.5 L (1.2-3.4) [place] # (Auto) 0.2 (0.1-0.6) Eos # (Auto) 0.0 (0.0-0.7) Baso # (Auto) 0.00 (0.0-2.0) K/mm3 PT (9.4-12.5) SECONDS INR APTT (25.1-36.5) Seconds pCO2 (35-45) mm/Hg pO2 (80-100) mm/Hg HCO3 (21-28) mmol/L ABG pH (7.35-7.45) ABG Total CO2 (22-28) mmol.L ABG O2 Saturation (95-98) % ABG O2 Content (15-23) ML/dl ABG Base Excess (-2.0-3.0) mmol/L ABG Hemoglobin (11.7-17.4) g/dL ABG Carboxyhemoglobin (0.5-1.5) % POC ABG HHb (Measured) (0-5) % ABG Methemoglobin (0.0-3.0) % ABG O2 Capacity (16-24) mL/dl Hgb O2 Saturation (95.0-98.0) % FiO2 % Sodium 151 H (132-148) mmol/L Potassium 4.6 (3.6-5.0) mmol/L Chloride 108 H (98-107) mmol/L Carbon Dioxide 35 H (21-33) mmol/L Anion Gap 13 (10-20) BUN 42 H (7-21) mg/dL Creatinine 2.6 H (0.7-1.2) mg/dl Est GFR ( Amer) 23 Est GFR (Non-Af Amer) 19 POC Glucose (mg/dL) 200 H (65-110) mg/dL Random Glucose 199 H (70-110) mg/dL Calcium 8.6 (8.4-10.5) mg/dL Phosphorus 2.6 (2.5-4.5) mg/dL Magnesium 1.7 (1.7-2.2) mg/dL Total Bilirubin 0.4 (0.2-1.3) mg/dL AST 23 (14-36) U/L ALT 24 (7-56) U/L Alkaline Phosphatase 76 (38-126) U/L Lactate Dehydrogenase (333-699) U/L Total Creatine Kinase (35-230) U/L Troponin I ng/mL NT-Pro-B Natriuret Pep (0-450) pg/mL Total Protein 6.7 (5.8-8.3) g/dL Albumin 3.5 (3.0-4.8) g/dL Globulin 3.3 gm/dL Albumin/Globulin Ratio 1.1 (1.1-1.8) Procalcitonin (0.19-0.49) NG/ML Urine Color (YELLOW) Urine Appearance (CLEAR) Urine pH (4.7-8.0) Ur Specific [place] (1.005-1.035) Urine Protein (<30 mg/dL) mg/dL Urine Glucose (UA) (NEGATIVE) mg/dL Urine Ketones (NEGATIVE) mg/dL Urine Blood (NEGATIVE) Urine Nitrate (NEGATIVE) Urine Bilirubin (NEGATIVE) Urine Urobilinogen (<1 E.U./dL) E.U./dL Ur Leukocyte Esterase (NEGATIVE) [place]/uL Urine RBC (0-2) /hpf Urine WBC (0-6) /hpf Ur Epithelial Cells (0-5) /hpf Urine Bacteria (NONE) /hpf Salicylates (2.0-20.0) mg/dL Urine Opiates Screen (NEGATIVE) Urine Methadone Screen (NEGATIVE) Acetaminophen (10.0-20.0) ug/ml Ur Barbiturates Screen (NEGATIVE) Ur Phencyclidine Scrn (NEGATIVE) Ur Amphetamines Screen (NEGATIVE) U Benzodiazepines Scrn (NEGATIVE) U Oth Cocaine Metabols (NEGATIVE) U Cannabinoids Screen (NEGATIVE) Alcohol, Quantitative (0-10) mg/dL 03/09/18 03/08/18 03/08/18 Range/Units 05:10 23:33 20:50 WBC (4.5-11.0) 10^3/uL RBC (3.5-6.1) 10^6/uL Hgb (12.0-16.0) g/dL Hct (36.0-48.0) % MCV (80.0-105.0) fl MCH (25.0-35.0) pg MCHC (31.0-37.0) g/dl RDW (11.5-14.5) % Plt Count (120.0-450.0) 10^3/uL MPV (7.0-11.0) fl Gran % (50.0-68.0) % Lymph % (Auto) (22.0-35.0) % [place] % (Auto) (1.0-6.0) % Eos % (Auto) (1.5-5.0) % Baso % (Auto) (0.0-3.0) % Gran # (1.4-6.5) Lymph # (Auto) (1.2-3.4) [place] # (Auto) (0.1-0.6) Eos # (Auto) (0.0-0.7) Baso # (Auto) (0.0-2.0) K/mm3 PT (9.4-12.5) SECONDS INR APTT (25.1-36.5) Seconds pCO2 51 H 70 H (35-45) mm/Hg pO2 59.0 L 105.0 H (80-100) mm/Hg HCO3 33.9 H 38.6 H (21-28) mmol/L ABG pH 7.43 7.35 (7.35-7.45) ABG Total CO2 35.5 H 40.7 H (22-28) mmol.L ABG O2 Saturation 95.9 98.9 H (95-98) % ABG O2 Content 11.4 L 12.6 L (15-23) ML/dl ABG Base Excess 8.5 H 11.1 H (-2.0-3.0) mmol/L ABG Hemoglobin 8.6 L 9.2 L (11.7-17.4) g/dL ABG Carboxyhemoglobin 1.8 H 2.5 H (0.5-1.5) % POC ABG HHb (Measured) 4.0 1.1 (0-5) % ABG Methemoglobin 0.4 0.7 (0.0-3.0) % ABG O2 Capacity 11.9 L 12.7 L (16-24) mL/dl Hgb O2 Saturation 93.8 L 95.6 (95.0-98.0) % FiO2 50.0 50.0 % Sodium (132-148) mmol/L Potassium (3.6-5.0) mmol/L Chloride (98-107) mmol/L Carbon Dioxide (21-33) mmol/L Anion Gap (10-20) BUN (7-21) mg/dL Creatinine (0.7-1.2) mg/dl Est GFR ( Amer) Est GFR (Non-Af Amer) POC Glucose (mg/dL) 180 H (65-110) mg/dL Random Glucose (70-110) mg/dL Calcium (8.4-10.5) mg/dL Phosphorus (2.5-4.5) mg/dL Magnesium (1.7-2.2) mg/dL Total Bilirubin (0.2-1.3) mg/dL AST (14-36) U/L ALT (7-56) U/L Alkaline Phosphatase (38-126) U/L Lactate Dehydrogenase (333-699) U/L Total Creatine Kinase (35-230) U/L Troponin I ng/mL NT-Pro-B Natriuret Pep (0-450) pg/mL Total Protein (5.8-8.3) g/dL Albumin (3.0-4.8) g/dL Globulin gm/dL Albumin/Globulin Ratio (1.1-1.8) Procalcitonin (0.19-0.49) NG/ML Urine Color (YELLOW) Urine Appearance (CLEAR) Urine pH (4.7-8.0) Ur Specific [place] (1.005-1.035) Urine Protein (<30 mg/dL) mg/dL Urine Glucose (UA) (NEGATIVE) mg/dL Urine Ketones (NEGATIVE) mg/dL Urine Blood (NEGATIVE) Urine Nitrate (NEGATIVE) Urine Bilirubin (NEGATIVE) Urine Urobilinogen (<1 E.U./dL) E.U./dL Ur Leukocyte Esterase (NEGATIVE) [place]/uL Urine RBC (0-2) /hpf Urine WBC (0-6) /hpf Ur Epithelial Cells (0-5) /hpf Urine Bacteria (NONE) /hpf Salicylates (2.0-20.0) mg/dL Urine Opiates Screen (NEGATIVE) Urine Methadone Screen (NEGATIVE) Acetaminophen (10.0-20.0) ug/ml Ur Barbiturates Screen (NEGATIVE) Ur Phencyclidine Scrn (NEGATIVE) Ur Amphetamines Screen (NEGATIVE) U Benzodiazepines Scrn (NEGATIVE) U Oth Cocaine Metabols (NEGATIVE) U Cannabinoids Screen (NEGATIVE) Alcohol, Quantitative (0-10) mg/dL 03/08/18 03/08/18 03/08/18 Range/Units 18:08 18:08 15:20 WBC (4.5-11.0) 10^3/uL RBC (3.5-6.1) 10^6/uL Hgb (12.0-16.0) g/dL Hct (36.0-48.0) % MCV (80.0-105.0) fl MCH (25.0-35.0) pg MCHC (31.0-37.0) g/dl RDW (11.5-14.5) % Plt Count (120.0-450.0) 10^3/uL MPV (7.0-11.0) fl Gran % (50.0-68.0) % Lymph % (Auto) (22.0-35.0) % [place] % (Auto) (1.0-6.0) % Eos % (Auto) (1.5-5.0) % Baso % (Auto) (0.0-3.0) % Gran # (1.4-6.5) Lymph # (Auto) (1.2-3.4) [place] # (Auto) (0.1-0.6) Eos # (Auto) (0.0-0.7) Baso # (Auto) (0.0-2.0) K/mm3 PT (9.4-12.5) SECONDS INR APTT (25.1-36.5) Seconds pCO2 107 H* (35-45) mm/Hg pO2 96.0 (80-100) mm/Hg HCO3 39.0 H (21-28) mmol/L ABG pH 7.17 L* (7.35-7.45) ABG Total CO2 42.3 H (22-28) mmol.L ABG O2 Saturation 98.5 H (95-98) % ABG O2 Content 12.5 L (15-23) ML/dl ABG Base Excess 8.2 H (-2.0-3.0) mmol/L ABG Hemoglobin 9.3 L (11.7-17.4) g/dL ABG Carboxyhemoglobin 3.7 H (0.5-1.5) % POC ABG HHb (Measured) 1.4 (0-5) % ABG Methemoglobin 0.3 (0.0-3.0) % ABG O2 Capacity 12.7 L (16-24) mL/dl Hgb O2 Saturation 94.7 L (95.0-98.0) % FiO2 32.0 % Sodium (132-148) mmol/L Potassium (3.6-5.0) mmol/L Chloride (98-107) mmol/L Carbon Dioxide (21-33) mmol/L Anion Gap (10-20) BUN (7-21) mg/dL Creatinine (0.7-1.2) mg/dl Est GFR ( Amer) Est GFR (Non-Af Amer) POC Glucose (mg/dL) (65-110) mg/dL Random Glucose (70-110) mg/dL Calcium (8.4-10.5) mg/dL Phosphorus (2.5-4.5) mg/dL Magnesium (1.7-2.2) mg/dL Total Bilirubin (0.2-1.3) mg/dL AST (14-36) U/L ALT (7-56) U/L Alkaline Phosphatase (38-126) U/L Lactate Dehydrogenase (333-699) U/L Total Creatine Kinase (35-230) U/L Troponin I ng/mL NT-Pro-B Natriuret Pep (0-450) pg/mL Total Protein (5.8-8.3) g/dL Albumin (3.0-4.8) g/dL Globulin gm/dL Albumin/Globulin Ratio (1.1-1.8) Procalcitonin (0.19-0.49) NG/ML Urine Color Yellow (YELLOW) Urine Appearance Clear (CLEAR) Urine pH 6.0 (4.7-8.0) Ur Specific [place] 1.025 (1.005-1.035) Urine Protein 100 H (<30 mg/dL) mg/dL Urine Glucose (UA) Negative (NEGATIVE) mg/dL Urine Ketones Negative (NEGATIVE) mg/dL Urine Blood Trace-intact H (NEGATIVE) Urine Nitrate Negative (NEGATIVE) Urine Bilirubin Negative (NEGATIVE) Urine Urobilinogen 0.2 (<1 E.U./dL) E.U./dL Ur Leukocyte Esterase Negative (NEGATIVE) [place]/uL Urine RBC 2 - 5 H (0-2) /hpf Urine WBC 5 - 10 H (0-6) /hpf Ur Epithelial Cells 1 - 3 (0-5) /hpf Urine Bacteria Many (NONE) /hpf Salicylates (2.0-20.0) mg/dL Urine Opiates Screen Negative (NEGATIVE) Urine Methadone Screen Negative (NEGATIVE) Acetaminophen (10.0-20.0) ug/ml Ur Barbiturates Screen Negative (NEGATIVE) Ur Phencyclidine Scrn Negative (NEGATIVE) Ur Amphetamines Screen Negative (NEGATIVE) U Benzodiazepines Scrn Positive H (NEGATIVE) U Oth Cocaine Metabols Negative (NEGATIVE) U Cannabinoids Screen Negative (NEGATIVE) Alcohol, Quantitative (0-10) mg/dL 03/08/18 03/08/18 03/08/18 Range/Units 13:38 13:30 13:30 WBC (4.5-11.0) 10^3/uL RBC (3.5-6.1) 10^6/uL Hgb (12.0-16.0) g/dL Hct (36.0-48.0) % MCV (80.0-105.0) fl MCH (25.0-35.0) pg MCHC (31.0-37.0) g/dl RDW (11.5-14.5) % Plt Count (120.0-450.0) 10^3/uL MPV (7.0-11.0) fl Gran % (50.0-68.0) % Lymph % (Auto) (22.0-35.0) % [place] % (Auto) (1.0-6.0) % Eos % (Auto) (1.5-5.0) % Baso % (Auto) (0.0-3.0) % Gran # (1.4-6.5) Lymph # (Auto) (1.2-3.4) [place] # (Auto) (0.1-0.6) Eos # (Auto) (0.0-0.7) Baso # (Auto) (0.0-2.0) K/mm3 PT (9.4-12.5) SECONDS INR APTT (25.1-36.5) Seconds pCO2 (35-45) mm/Hg pO2 (80-100) mm/Hg HCO3 (21-28) mmol/L ABG pH (7.35-7.45) ABG Total CO2 (22-28) mmol.L ABG O2 Saturation (95-98) % ABG O2 Content (15-23) ML/dl ABG Base Excess (-2.0-3.0) mmol/L ABG Hemoglobin (11.7-17.4) g/dL ABG Carboxyhemoglobin (0.5-1.5) % POC ABG HHb (Measured) (0-5) % ABG Methemoglobin (0.0-3.0) % ABG O2 Capacity (16-24) mL/dl Hgb O2 Saturation (95.0-98.0) % FiO2 % Sodium (132-148) mmol/L Potassium (3.6-5.0) mmol/L Chloride (98-107) mmol/L Carbon Dioxide (21-33) mmol/L Anion Gap (10-20) BUN (7-21) mg/dL Creatinine (0.7-1.2) mg/dl Est GFR ( Amer) Est GFR (Non-Af Amer) POC Glucose (mg/dL) 144 H (65-110) mg/dL Random Glucose (70-110) mg/dL Calcium (8.4-10.5) mg/dL Phosphorus (2.5-4.5) mg/dL Magnesium (1.7-2.2) mg/dL Total Bilirubin (0.2-1.3) mg/dL AST (14-36) U/L ALT (7-56) U/L Alkaline Phosphatase (38-126) U/L Lactate Dehydrogenase (333-699) U/L Total Creatine Kinase (35-230) U/L Troponin I ng/mL NT-Pro-B Natriuret Pep 2900 H (0-450) pg/mL Total Protein (5.8-8.3) g/dL Albumin (3.0-4.8) g/dL Globulin gm/dL Albumin/Globulin Ratio (1.1-1.8) Procalcitonin 0.11 L (0.19-0.49) NG/ML Urine Color (YELLOW) Urine Appearance (CLEAR) Urine pH (4.7-8.0) Ur Specific [place] (1.005-1.035) Urine Protein (<30 mg/dL) mg/dL Urine Glucose (UA) (NEGATIVE) mg/dL Urine Ketones (NEGATIVE) mg/dL Urine Blood (NEGATIVE) Urine Nitrate (NEGATIVE) Urine Bilirubin (NEGATIVE) Urine Urobilinogen (<1 E.U./dL) E.U./dL Ur Leukocyte Esterase (NEGATIVE) [place]/uL Urine RBC (0-2) /hpf Urine WBC (0-6) /hpf Ur Epithelial Cells (0-5) /hpf Urine Bacteria (NONE) /hpf Salicylates (2.0-20.0) mg/dL Urine Opiates Screen (NEGATIVE) Urine Methadone Screen (NEGATIVE) Acetaminophen (10.0-20.0) ug/ml Ur Barbiturates Screen (NEGATIVE) Ur Phencyclidine Scrn (NEGATIVE) Ur Amphetamines Screen (NEGATIVE) U Benzodiazepines Scrn (NEGATIVE) U Oth Cocaine Metabols (NEGATIVE) U Cannabinoids Screen (NEGATIVE) Alcohol, Quantitative (0-10) mg/dL 03/08/18 03/08/18 03/08/18 Range/Units 13:30 13:30 13:30 WBC (4.5-11.0) 10^3/uL RBC (3.5-6.1) 10^6/uL Hgb (12.0-16.0) g/dL Hct (36.0-48.0) % MCV (80.0-105.0) fl MCH (25.0-35.0) pg MCHC (31.0-37.0) g/dl RDW (11.5-14.5) % Plt Count (120.0-450.0) 10^3/uL MPV (7.0-11.0) fl Gran % (50.0-68.0) % Lymph % (Auto) (22.0-35.0) % [place] % (Auto) (1.0-6.0) % Eos % (Auto) (1.5-5.0) % Baso % (Auto) (0.0-3.0) % Gran # (1.4-6.5) Lymph # (Auto) (1.2-3.4) [place] # (Auto) (0.1-0.6) Eos # (Auto) (0.0-0.7) Baso # (Auto) (0.0-2.0) K/mm3 PT (9.4-12.5) SECONDS INR APTT (25.1-36.5) Seconds pCO2 (35-45) mm/Hg pO2 (80-100) mm/Hg HCO3 (21-28) mmol/L ABG pH (7.35-7.45) ABG Total CO2 (22-28) mmol.L ABG O2 Saturation (95-98) % ABG O2 Content (15-23) ML/dl ABG Base Excess (-2.0-3.0) mmol/L ABG Hemoglobin (11.7-17.4) g/dL ABG Carboxyhemoglobin (0.5-1.5) % POC ABG HHb (Measured) (0-5) % ABG Methemoglobin (0.0-3.0) % ABG O2 Capacity (16-24) mL/dl Hgb O2 Saturation (95.0-98.0) % FiO2 % Sodium (132-148) mmol/L Potassium (3.6-5.0) mmol/L Chloride (98-107) mmol/L Carbon Dioxide (21-33) mmol/L Anion Gap (10-20) BUN (7-21) mg/dL Creatinine (0.7-1.2) mg/dl Est GFR ( Amer) Est GFR (Non-Af Amer) POC Glucose (mg/dL) (65-110) mg/dL Random Glucose (70-110) mg/dL Calcium (8.4-10.5) mg/dL Phosphorus (2.5-4.5) mg/dL Magnesium (1.7-2.2) mg/dL Total Bilirubin (0.2-1.3) mg/dL AST (14-36) U/L ALT (7-56) U/L Alkaline Phosphatase (38-126) U/L Lactate Dehydrogenase (333-699) U/L Total Creatine Kinase (35-230) U/L Troponin I ng/mL NT-Pro-B Natriuret Pep (0-450) pg/mL Total Protein (5.8-8.3) g/dL Albumin (3.0-4.8) g/dL Globulin gm/dL Albumin/Globulin Ratio (1.1-1.8) Procalcitonin (0.19-0.49) NG/ML Urine Color (YELLOW) Urine Appearance (CLEAR) Urine pH (4.7-8.0) Ur Specific [place] (1.005-1.035) Urine Protein (<30 mg/dL) mg/dL Urine Glucose (UA) (NEGATIVE) mg/dL Urine Ketones (NEGATIVE) mg/dL Urine Blood (NEGATIVE) Urine Nitrate (NEGATIVE) Urine Bilirubin (NEGATIVE) Urine Urobilinogen (<1 E.U./dL) E.U./dL Ur Leukocyte Esterase (NEGATIVE) [place]/uL Urine RBC (0-2) /hpf Urine WBC (0-6) /hpf Ur Epithelial Cells (0-5) /hpf Urine Bacteria (NONE) /hpf Salicylates < 1 L (2.0-20.0) mg/dL Urine Opiates Screen (NEGATIVE) Urine Methadone Screen (NEGATIVE) Acetaminophen < 10.0 L (10.0-20.0) ug/ml Ur Barbiturates Screen (NEGATIVE) Ur Phencyclidine Scrn (NEGATIVE) Ur Amphetamines Screen (NEGATIVE) U Benzodiazepines Scrn (NEGATIVE) U Oth Cocaine Metabols (NEGATIVE) U Cannabinoids Screen (NEGATIVE) Alcohol, Quantitative < 10 (0-10) mg/dL 03/08/18 03/08/18 03/08/18 Range/Units 13:30 13:30 13:30 WBC 5.6 D (4.5-11.0) 10^3/uL RBC 3.55 (3.5-6.1) 10^6/uL Hgb 9.8 L (12.0-16.0) g/dL Hct 36.4 (36.0-48.0) % MCV 102.5 D (80.0-105.0) fl MCH 27.6 (25.0-35.0) pg MCHC 26.9 L (31.0-37.0) g/dl RDW 16.3 H (11.5-14.5) % Plt Count 308 (120.0-450.0) 10^3/uL MPV 10.4 (7.0-11.0) fl Gran % 73.8 H (50.0-68.0) % Lymph % (Auto) 15.2 L (22.0-35.0) % [place] % (Auto) 6.4 H (1.0-6.0) % Eos % (Auto) 4.1 (1.5-5.0) % Baso % (Auto) 0.5 (0.0-3.0) % Gran # 4.16 (1.4-6.5) Lymph # (Auto) 0.9 L (1.2-3.4) [place] # (Auto) 0.4 (0.1-0.6) Eos # (Auto) 0.2 (0.0-0.7) Baso # (Auto) 0.03 (0.0-2.0) K/mm3 PT 12.5 (9.4-12.5) SECONDS INR 1.09 APTT 38.8 H (25.1-36.5) Seconds pCO2 (35-45) mm/Hg pO2 (80-100) mm/Hg HCO3 (21-28) mmol/L ABG pH (7.35-7.45) ABG Total CO2 (22-28) mmol.L ABG O2 Saturation (95-98) % ABG O2 Content (15-23) ML/dl ABG Base Excess (-2.0-3.0) mmol/L ABG Hemoglobin (11.7-17.4) g/dL ABG Carboxyhemoglobin (0.5-1.5) % POC ABG HHb (Measured) (0-5) % ABG Methemoglobin (0.0-3.0) % ABG O2 Capacity (16-24) mL/dl Hgb O2 Saturation (95.0-98.0) % FiO2 % Sodium 150 H (132-148) mmol/L Potassium 4.8 (3.6-5.0) mmol/L Chloride 108 H (98-107) mmol/L Carbon Dioxide 39 H (21-33) mmol/L Anion Gap 9 L (10-20) BUN 31 H (7-21) mg/dL Creatinine 1.8 H (0.7-1.2) mg/dl Est GFR ( Amer) 35 Est GFR (Non-Af Amer) 29 POC Glucose (mg/dL) (65-110) mg/dL Random Glucose 163 H (70-110) mg/dL Calcium 8.8 (8.4-10.5) mg/dL Phosphorus 4.2 (2.5-4.5) mg/dL Magnesium 1.8 (1.7-2.2) mg/dL Total Bilirubin 0.3 (0.2-1.3) mg/dL AST 44 H D (14-36) U/L ALT 19 (7-56) U/L Alkaline Phosphatase 80 (38-126) U/L Lactate Dehydrogenase 519 (333-699) U/L Total Creatine Kinase 29 L (35-230) U/L Troponin I 0.02 D ng/mL NT-Pro-B Natriuret Pep (0-450) pg/mL Total Protein 7.3 (5.8-8.3) g/dL Albumin 3.6 (3.0-4.8) g/dL Globulin 3.7 gm/dL Albumin/Globulin Ratio 1.0 L (1.1-1.8) Procalcitonin (0.19-0.49) NG/ML Urine Color (YELLOW) Urine Appearance (CLEAR) Urine pH (4.7-8.0) Ur Specific [place] (1.005-1.035) Urine Protein (<30 mg/dL) mg/dL Urine Glucose (UA) (NEGATIVE) mg/dL Urine Ketones (NEGATIVE) mg/dL Urine Blood (NEGATIVE) Urine Nitrate (NEGATIVE) Urine Bilirubin (NEGATIVE) Urine Urobilinogen (<1 E.U./dL) E.U./dL Ur Leukocyte Esterase (NEGATIVE) [place]/uL Urine RBC (0-2) /hpf Urine WBC (0-6) /hpf Ur Epithelial Cells (0-5) /hpf Urine Bacteria (NONE) /hpf Salicylates (2.0-20.0) mg/dL Urine Opiates Screen (NEGATIVE) Urine Methadone Screen (NEGATIVE) Acetaminophen (10.0-20.0) ug/ml Ur Barbiturates Screen (NEGATIVE) Ur Phencyclidine Scrn (NEGATIVE) Ur Amphetamines Screen (NEGATIVE) U Benzodiazepines Scrn (NEGATIVE) U Oth Cocaine Metabols (NEGATIVE) U Cannabinoids Screen (NEGATIVE) Alcohol, Quantitative (0-10) mg/dL Laboratory Results - last 24 hr 03/08/18 03/08/18 03/08/18 13:30 13:30 13:30 WBC 5.6 D RBC 3.55 Hgb 9.8 L Hct 36.4 MCV 102.5 D MCH 27.6 MCHC 26.9 L RDW 16.3 H Plt Count 308 MPV 10.4 Gran % 73.8 H Lymph % (Auto) 15.2 L [place] % (Auto) 6.4 H Eos % (Auto) 4.1 Baso % (Auto) 0.5 Gran # 4.16 Lymph # (Auto) 0.9 L [place] # (Auto) 0.4 Eos # (Auto) 0.2 Baso # (Auto) 0.03 PT 12.5 INR 1.09 APTT 38.8 H pCO2 pO2 HCO3 ABG pH ABG Total CO2 ABG O2 Saturation ABG O2 Content ABG Base Excess ABG Hemoglobin ABG Carboxyhemoglobin POC ABG HHb (Measured) ABG Methemoglobin ABG O2 Capacity Hgb O2 Saturation FiO2 Sodium 150 H Potassium 4.8 Chloride 108 H Carbon Dioxide 39 H Anion Gap 9 L BUN 31 H Creatinine 1.8 H Est GFR ( Amer) 35 Est GFR (Non-Af Amer) 29 POC Glucose (mg/dL) Random Glucose 163 H Calcium 8.8 Phosphorus 4.2 Magnesium 1.8 Total Bilirubin 0.3 AST 44 H D ALT 19 Alkaline Phosphatase 80 Lactate Dehydrogenase 519 Total Creatine Kinase 29 L Troponin I 0.02 D NT-Pro-B Natriuret Pep Total Protein 7.3 Albumin 3.6 Globulin 3.7 Albumin/Globulin Ratio 1.0 L Procalcitonin Urine Color Urine Appearance Urine pH Ur Specific [place] Urine Protein Urine Glucose (UA) Urine Ketones Urine Blood Urine Nitrate Urine Bilirubin Urine Urobilinogen Ur Leukocyte Esterase Urine RBC Urine WBC Ur Epithelial Cells Urine Bacteria Salicylates Urine Opiates Screen Urine Methadone Screen Acetaminophen Ur Barbiturates Screen Ur Phencyclidine Scrn Ur Amphetamines Screen U Benzodiazepines Scrn U Oth Cocaine Metabols U Cannabinoids Screen Alcohol, Quantitative 03/08/18 03/08/18 03/08/18 13:30 13:30 13:30 WBC RBC Hgb Hct MCV MCH MCHC RDW Plt Count MPV Gran % Lymph % (Auto) [place] % (Auto) Eos % (Auto) Baso % (Auto) Gran # Lymph # (Auto) [place] # (Auto) Eos # (Auto) Baso # (Auto) PT INR APTT pCO2 pO2 HCO3 ABG pH ABG Total CO2 ABG O2 Saturation ABG O2 Content ABG Base Excess ABG Hemoglobin ABG Carboxyhemoglobin POC ABG HHb (Measured) ABG Methemoglobin ABG O2 Capacity Hgb O2 Saturation FiO2 Sodium Potassium Chloride Carbon Dioxide Anion Gap BUN Creatinine Est GFR ( Amer) Est GFR (Non-Af Amer) POC Glucose (mg/dL) Random Glucose Calcium Phosphorus Magnesium Total Bilirubin AST ALT Alkaline Phosphatase Lactate Dehydrogenase Total Creatine Kinase Troponin I NT-Pro-B Natriuret Pep Total Protein Albumin Globulin Albumin/Globulin Ratio Procalcitonin Urine Color Urine Appearance Urine pH Ur Specific [place] Urine Protein Urine Glucose (UA) Urine Ketones Urine Blood Urine Nitrate Urine Bilirubin Urine Urobilinogen Ur Leukocyte Esterase Urine RBC Urine WBC Ur Epithelial Cells Urine Bacteria Salicylates < 1 L Urine Opiates Screen Urine Methadone Screen Acetaminophen < 10.0 L Ur Barbiturates Screen Ur Phencyclidine Scrn Ur Amphetamines Screen U Benzodiazepines Scrn U Oth Cocaine Metabols U Cannabinoids Screen Alcohol, Quantitative < 10 03/08/18 03/08/18 03/08/18 13:30 13:30 13:38 WBC RBC Hgb Hct MCV MCH MCHC RDW Plt Count MPV Gran % Lymph % (Auto) [place] % (Auto) Eos % (Auto) Baso % (Auto) Gran # Lymph # (Auto) [place] # (Auto) Eos # (Auto) Baso # (Auto) PT INR APTT pCO2 pO2 HCO3 ABG pH ABG Total CO2 ABG O2 Saturation ABG O2 Content ABG Base Excess ABG Hemoglobin ABG Carboxyhemoglobin POC ABG HHb (Measured) ABG Methemoglobin ABG O2 Capacity Hgb O2 Saturation FiO2 Sodium Potassium Chloride Carbon Dioxide Anion Gap BUN Creatinine Est GFR ( Amer) Est GFR (Non-Af Amer) POC Glucose (mg/dL) 144 H Random Glucose Calcium Phosphorus Magnesium Total Bilirubin AST ALT Alkaline Phosphatase Lactate Dehydrogenase Total Creatine Kinase Troponin I NT-Pro-B Natriuret Pep 2900 H Total Protein Albumin Globulin Albumin/Globulin Ratio Procalcitonin 0.11 L Urine Color Urine Appearance Urine pH Ur Specific [place] Urine Protein Urine Glucose (UA) Urine Ketones Urine Blood Urine Nitrate Urine Bilirubin Urine Urobilinogen Ur Leukocyte Esterase Urine RBC Urine WBC Ur Epithelial Cells Urine Bacteria Salicylates Urine Opiates Screen Urine Methadone Screen Acetaminophen Ur Barbiturates Screen Ur Phencyclidine Scrn Ur Amphetamines Screen U Benzodiazepines Scrn U Oth Cocaine Metabols U Cannabinoids Screen Alcohol, Quantitative 03/08/18 03/08/18 03/08/18 15:20 18:08 18:08 WBC RBC Hgb Hct MCV MCH MCHC RDW Plt Count MPV Gran % Lymph % (Auto) [place] % (Auto) Eos % (Auto) Baso % (Auto) Gran # Lymph # (Auto) [place] # (Auto) Eos # (Auto) Baso # (Auto) PT INR APTT pCO2 107 H* pO2 96.0 HCO3 39.0 H ABG pH 7.17 L* ABG Total CO2 42.3 H ABG O2 Saturation 98.5 H ABG O2 Content 12.5 L ABG Base Excess 8.2 H ABG Hemoglobin 9.3 L ABG Carboxyhemoglobin 3.7 H POC ABG HHb (Measured) 1.4 ABG Methemoglobin 0.3 ABG O2 Capacity 12.7 L Hgb O2 Saturation 94.7 L FiO2 32.0 Sodium Potassium Chloride Carbon Dioxide Anion Gap BUN Creatinine Est GFR ( Amer) Est GFR (Non-Af Amer) POC Glucose (mg/dL) Random Glucose Calcium Phosphorus Magnesium Total Bilirubin AST ALT Alkaline Phosphatase Lactate Dehydrogenase Total Creatine Kinase Troponin I NT-Pro-B Natriuret Pep Total Protein Albumin Globulin Albumin/Globulin Ratio Procalcitonin Urine Color Yellow Urine Appearance Clear Urine pH 6.0 Ur Specific [place] 1.025 Urine Protein 100 H Urine Glucose (UA) Negative Urine Ketones Negative Urine Blood Trace-intact H Urine Nitrate Negative Urine Bilirubin Negative Urine Urobilinogen 0.2 Ur Leukocyte Esterase Negative Urine RBC 2 - 5 H Urine WBC 5 - 10 H Ur Epithelial Cells 1 - 3 Urine Bacteria Many Salicylates Urine Opiates Screen Negative Urine Methadone Screen Negative Acetaminophen Ur Barbiturates Screen Negative Ur Phencyclidine Scrn Negative Ur Amphetamines Screen Negative U Benzodiazepines Scrn Positive H U Oth Cocaine Metabols Negative U Cannabinoids Screen Negative Alcohol, Quantitative 03/08/18 03/08/18 03/09/18 20:50 23:33 05:10 WBC RBC Hgb Hct MCV MCH MCHC RDW Plt Count MPV Gran % Lymph % (Auto) [place] % (Auto) Eos % (Auto) Baso % (Auto) Gran # Lymph # (Auto) [place] # (Auto) Eos # (Auto) Baso # (Auto) PT INR APTT pCO2 70 H 51 H pO2 105.0 H 59.0 L HCO3 38.6 H 33.9 H ABG pH 7.35 7.43 ABG Total CO2 40.7 H 35.5 H ABG O2 Saturation 98.9 H 95.9 ABG O2 Content 12.6 L 11.4 L ABG Base Excess 11.1 H 8.5 H ABG Hemoglobin 9.2 L 8.6 L ABG Carboxyhemoglobin 2.5 H 1.8 H POC ABG HHb (Measured) 1.1 4.0 ABG Methemoglobin 0.7 0.4 ABG O2 Capacity 12.7 L 11.9 L Hgb O2 Saturation 95.6 93.8 L FiO2 50.0 50.0 Sodium Potassium Chloride Carbon Dioxide Anion Gap BUN Creatinine Est GFR ( Amer) Est GFR (Non-Af Amer) POC Glucose (mg/dL) 180 H Random Glucose Calcium Phosphorus Magnesium Total Bilirubin AST ALT Alkaline Phosphatase Lactate Dehydrogenase Total Creatine Kinase Troponin I NT-Pro-B Natriuret Pep Total Protein Albumin Globulin Albumin/Globulin Ratio Procalcitonin Urine Color Urine Appearance Urine pH Ur Specific [place] Urine Protein Urine Glucose (UA) Urine Ketones Urine Blood Urine Nitrate Urine Bilirubin Urine Urobilinogen Ur Leukocyte Esterase Urine RBC Urine WBC Ur Epithelial Cells Urine Bacteria Salicylates Urine Opiates Screen Urine Methadone Screen Acetaminophen Ur Barbiturates Screen Ur Phencyclidine Scrn Ur Amphetamines Screen U Benzodiazepines Scrn U Oth Cocaine Metabols U Cannabinoids Screen Alcohol, Quantitative 03/09/18 03/09/18 03/09/18 06:00 06:00 06:00 WBC 5.5 RBC 3.31 L Hgb 8.9 L Hct 33.0 L MCV 99.7 MCH 26.9 MCHC 27.0 L RDW 16.7 H Plt Count 287 MPV 10.6 Gran % 87.8 H Lymph % (Auto) 9.1 L [place] % (Auto) 3.1 Eos % (Auto) 0.0 L Baso % (Auto) 0.0 Gran # 4.84 Lymph # (Auto) 0.5 L [place] # (Auto) 0.2 Eos # (Auto) 0.0 Baso # (Auto) 0.00 PT INR APTT pCO2 pO2 HCO3 ABG pH ABG Total CO2 ABG O2 Saturation ABG O2 Content ABG Base Excess ABG Hemoglobin ABG Carboxyhemoglobin POC ABG HHb (Measured) ABG Methemoglobin ABG O2 Capacity Hgb O2 Saturation FiO2 Sodium 151 H Potassium 4.6 Chloride 108 H Carbon Dioxide 35 H Anion Gap 13 BUN 42 H Creatinine 2.6 H Est GFR ( Amer) 23 Est GFR (Non-Af Amer) 19 POC Glucose (mg/dL) 200 H Random Glucose 199 H Calcium 8.6 Phosphorus 2.6 Magnesium 1.7 Total Bilirubin 0.4 AST 23 ALT 24 Alkaline Phosphatase 76 Lactate Dehydrogenase Total Creatine Kinase Troponin I NT-Pro-B Natriuret Pep Total Protein 6.7 Albumin 3.5 Globulin 3.3 Albumin/Globulin Ratio 1.1 Procalcitonin Urine Color Urine Appearance Urine pH Ur Specific [place] Urine Protein Urine Glucose (UA) Urine Ketones Urine Blood Urine Nitrate Urine Bilirubin Urine Urobilinogen Ur Leukocyte Esterase Urine RBC Urine WBC Ur Epithelial Cells Urine Bacteria Salicylates Urine Opiates Screen Urine Methadone Screen Acetaminophen Ur Barbiturates Screen Ur Phencyclidine Scrn Ur Amphetamines Screen U Benzodiazepines Scrn U Oth Cocaine Metabols U Cannabinoids Screen Alcohol, Quantitative Radiology Impressions: Radiology Impressions Chest X-Ray 03/08/18 13:37 IMPRESSION: Consolidation in the right lower lobe with mediastinal shift consistent with lobar atelectasis. This is suspicious for a mucus plug or endobronchial lesion. Moderate to large right pleural effusion. Head CT 03/08/18 14:43 IMPRESSION: No evidence of acute intracranial hemorrhage intracranial collection mass effect or midline shift. Ethmoid sinuses mucosal thickening and bilateral mastoid effusions. Preliminary report was submitted by [facility] contains concordant findings. Chest X-Ray 03/08/18 18:00 IMPRESSION: Complete opacification of the right hemithorax with shift of trachea and mediastinum to the right most compatible with right lung collapse. Endotracheal tube terminates in the mid trachea. EKG/Cardiology Studies: Cardiology / EKG Studies 03/08/18 13:35 ELECTROCARDIOGRAM Stat Comment: Reason For Exam: r/o dysrhytmia Review of Systems - Review of Systems Systems not reviewed;Unavailable: Intubated Assessment/Plan - Assessment and Plan (Free Text) Assessment: 57 y/o female with PMH of COPD, asthma, DM2, breast cancer and xanax use presen ts with progressive SOB and intermittent spells of unconsciousness at home. Found to have respiratory failure with UDS positive for benzodiazepines. Intubated on Fentanyl. Plan: Neuro: -Patient is AAOx0, intubated -CT head 03/08: no acute findings, no hemmorhage or midline shift Pulm: -On fentanyl @20 mcg/hr for sedation, intubated. Propofol @ 5 added. -Maintain O2 sat >90% -CXR 03/08 pre-intubation: Consolidation in the right lower lobe with mediastinal shift consistent with lobar atelectasis. This is suspicious for a mucus plug or endobronchial lesion. Moderate to large right pleural effusion. -CXR 03/08 post intubation: Complete opacification of the right hemithorax with shift of trachea and mediastinum to the right most compatible with right lung collapse. Endotracheal tube terminates in the mid trachea. -CXR 03/09 shows improved aeration of R lung with minimal residual infiltrate. -Pending Chest CT w/out contrast -Continue Solu-medrol 40mg q8 -Continue Doxy Q12, Cefepime 1 gm BID -Procal 0.11, BNP 2900- worsening from previous admissions -F/u Legionella and Strep Pneumo -Palliative care consulted regarding status. Son was called regarding family wishes for intubation and resuscitative status. Son mentioned that he would discuss with sister and come up with final plan today. DNR was signed on previous admission. -Pulmonology - Dr. Rucker consulted - recommendations appreciated Cardio: -EKG: NSR, no ST changes -ASA, Lipitor -BP monitoring - Echo ordered Endo: -h/o DM2, on insulin -ISS-low -Accucheck -Maintain euglycemia, normothermia Renal: -Hypernatremia 151 -BUN/Cr: still elevated 42/2.6 : -UDS: positive for benzodiazepines -Ray in place Infectious Disease: -Dr. Malcolm - recs appreciated -Low grade fevers 100.4 overnight -Doxy Q12, Cefepime 1 gm BID Prophylaxis: GI Ppx: PTX 40 mg IV DVT Ppx: Heparin q8h Patient seen, case reviewed and plan approved by Dr. Khan. Lester Oseguera, PGY-1 <Dusty Khan - Last Filed: 03/09/18 14:45> CCU Objective - Vital Signs / Intake & Output Vital Signs (Last 4 hours): Vital Signs Temp Pulse BP Pulse Ox 03/09/18 12:40 99.7 F H 77 98 03/09/18 12:30 99.7 F H 72 136/56 L 91 L 03/09/18 12:20 99.7 F H 71 99 03/09/18 12:10 99.7 F H 81 100 03/09/18 12:00 99.7 F H 81 159/73 H 97 03/09/18 11:50 99.5 F 68 100 03/09/18 11:40 99.5 F 76 97 03/09/18 11:30 99.3 F 69 142/63 97 03/09/18 11:20 99.5 F 68 97 03/09/18 11:10 99.3 F 67 98 03/09/18 11:00 99.5 F 68 133/55 L 98 03/09/18 10:50 99.5 F 72 98 Intake and Output (Last 8hrs): Intake & Output 03/08/18 03/09/18 03/09/18 22:59 06:59 14:59 Intake Total 50 213 Balance 50 213 Weight 160 lb Intake: IV 50 213 IVPB 200 - Medications Active Medications: Active Medications Generic Name Dose Route Start Last Admin Trade Name Freq PRN Reason Stop Dose Admin Albuterol/Ipratropium 3 ml 03/09/18 12:28 Duoneb 3 Mg/0.5 Mg (3 Ml) Ud IH [id number] PRN Shortness of Breath Arformoterol Tartrate 15 mcg 03/09/18 20:00 Brovana IH [id number] LUCIANO Aspirin 81 mg 03/09/18 10:00 03/09/18 10:06 Aspirin Chewable PO Not Given DAILY LUCIANO Atorvastatin Calcium 10 mg 03/09/18 10:00 03/09/18 10:07 Lipitor PO Not Given DAILY LUCIANO Budesonide 0.5 mg 03/09/18 20:00 Pulmicort Respules IH [id number] LUCIANO Heparin Sodium (Porcine) 5,000 units 03/08/18 16:30 03/09/18 10:09 Heparin SC 5,000 units Q8H LUCIANO Administration Protocol Doxycycline Hyclate 100 mg/ 100 mls @ 100 mls/hr 03/08/18 22:00 03/09/18 10:08 Sodium Chloride IVPB 100 mls/hr Q12 LUCIANO Administration Protocol Fentanyl Citrate 1,000 mcg in 100 mls @ 2 mls/hr 03/08/18 18:56 03/09/18 07:00 Fentanyl Citrate/Sodium Chloride 1 Mg/100 Ml IV 50 mcg/hr .Q24H PRN 5 mls/hr TITRATE PER MD ORDER Titration Protocol 20 MCG/HR Cefepime HCl 1 gm in 100 mls @ 25 mls/hr 03/09/18 10:00 03/09/18 10:09 Maxipime 1gm IVPB 25 mls/hr Q12 LUCIANO Administration Protocol Propofol 1,000 mg in 100 mls @ 2.177 mls/hr 03/09/18 12:18 03/09/18 13:46 Diprivan IV 40 mcg/kg/min .Q24H PRN 17.418 mls/hr TITRATE PER MD ORDER Titration Protocol 5 MCG/KG/MIN Insulin Human Regular 0 units 03/09/18 16:30 Humulin R Low SC ACHS LUCIANO Protocol Methylprednisolone 40 mg 03/08/18 16:15 03/09/18 10:09 Solu-Medrol IVP 40 mg Q8H LUCIANO Administration Pantoprazole Sodium 40 mg 03/09/18 10:00 03/09/18 10:07 Protonix Inj IVP 40 mg DAILY LUCIANO Administration - Patient Studies Lab Studies: Microbiology Studies 03/08/18 13:50 Blood Culture - Preliminary Blood-Venous NO GROWTH AFTER 24 HOURS 03/08/18 13:30 Blood Culture - Preliminary Blood-Venous NO GROWTH AFTER 24 HOURS Lab Studies 03/09/18 03/09/18 03/09/18 Range/Units 06:00 06:00 06:00 WBC 5.5 (4.5-11.0) 10^3/uL RBC 3.31 L (3.5-6.1) 10^6/uL Hgb 8.9 L (12.0-16.0) g/dL Hct 33.0 L (36.0-48.0) % MCV 99.7 (80.0-105.0) fl MCH 26.9 (25.0-35.0) pg MCHC 27.0 L (31.0-37.0) g/dl RDW 16.7 H (11.5-14.5) % Plt Count 287 (120.0-450.0) 10^3/uL MPV 10.6 (7.0-11.0) fl Gran % 87.8 H (50.0-68.0) % Lymph % (Auto) 9.1 L (22.0-35.0) % [place] % (Auto) 3.1 (1.0-6.0) % Eos % (Auto) 0.0 L (1.5-5.0) % Baso % (Auto) 0.0 (0.0-3.0) % Gran # 4.84 (1.4-6.5) Lymph # (Auto) 0.5 L (1.2-3.4) [place] # (Auto) 0.2 (0.1-0.6) Eos # (Auto) 0.0 (0.0-0.7) Baso # (Auto) 0.00 (0.0-2.0) K/mm3 pCO2 (35-45) mm/Hg pO2 (80-100) mm/Hg HCO3 (21-28) mmol/L ABG pH (7.35-7.45) ABG Total CO2 (22-28) mmol.L ABG O2 Saturation (95-98) % ABG O2 Content (15-23) ML/dl ABG Base Excess (-2.0-3.0) mmol/L ABG Hemoglobin (11.7-17.4) g/dL ABG Carboxyhemoglobin (0.5-1.5) % POC ABG HHb (Measured) (0-5) % ABG Methemoglobin (0.0-3.0) % ABG O2 Capacity (16-24) mL/dl Hgb O2 Saturation (95.0-98.0) % FiO2 % Sodium 151 H (132-148) mmol/L Potassium 4.6 (3.6-5.0) mmol/L Chloride 108 H (98-107) mmol/L Carbon Dioxide 35 H (21-33) mmol/L Anion Gap 13 (10-20) BUN 42 H (7-21) mg/dL Creatinine 2.6 H (0.7-1.2) mg/dl Est GFR ( Amer) 23 Est GFR (Non-Af Amer) 19 POC Glucose (mg/dL) 200 H (65-110) mg/dL Random Glucose 199 H (70-110) mg/dL Calcium 8.6 (8.4-10.5) mg/dL Phosphorus 2.6 (2.5-4.5) mg/dL Magnesium 1.7 (1.7-2.2) mg/dL Total Bilirubin 0.4 (0.2-1.3) mg/dL AST 23 (14-36) U/L ALT 24 (7-56) U/L Alkaline Phosphatase 76 (38-126) U/L NT-Pro-B Natriuret Pep (0-450) pg/mL Total Protein 6.7 (5.8-8.3) g/dL Albumin 3.5 (3.0-4.8) g/dL Globulin 3.3 gm/dL Albumin/Globulin Ratio 1.1 (1.1-1.8) Procalcitonin (0.19-0.49) NG/ML Urine Color (YELLOW) Urine Appearance (CLEAR) Urine pH (4.7-8.0) Ur Specific [place] (1.005-1.035) Urine Protein (<30 mg/dL) mg/dL Urine Glucose (UA) (NEGATIVE) mg/dL Urine Ketones (NEGATIVE) mg/dL Urine Blood (NEGATIVE) Urine Nitrate (NEGATIVE) Urine Bilirubin (NEGATIVE) Urine Urobilinogen (<1 E.U./dL) E.U./dL Ur Leukocyte Esterase (NEGATIVE) [place]/uL Urine RBC (0-2) /hpf Urine WBC (0-6) /hpf Ur Epithelial Cells (0-5) /hpf Urine Bacteria (NONE) /hpf Urine Opiates Screen (NEGATIVE) Urine Methadone Screen (NEGATIVE) Acetaminophen (10.0-20.0) ug/ml Ur Barbiturates Screen (NEGATIVE) Ur Phencyclidine Scrn (NEGATIVE) Ur Amphetamines Screen (NEGATIVE) U Benzodiazepines Scrn (NEGATIVE) U Oth Cocaine Metabols (NEGATIVE) U Cannabinoids Screen (NEGATIVE) Ur L.pneumophila Ag (NEGATIVE) 03/09/18 03/08/18 03/08/18 Range/Units 05:10 23:33 20:50 WBC (4.5-11.0) 10^3/uL RBC (3.5-6.1) 10^6/uL Hgb (12.0-16.0) g/dL Hct (36.0-48.0) % MCV (80.0-105.0) fl MCH (25.0-35.0) pg MCHC (31.0-37.0) g/dl RDW (11.5-14.5) % Plt Count (120.0-450.0) 10^3/uL MPV (7.0-11.0) fl Gran % (50.0-68.0) % Lymph % (Auto) (22.0-35.0) % [place] % (Auto) (1.0-6.0) % Eos % (Auto) (1.5-5.0) % Baso % (Auto) (0.0-3.0) % Gran # (1.4-6.5) Lymph # (Auto) (1.2-3.4) [place] # (Auto) (0.1-0.6) Eos # (Auto) (0.0-0.7) Baso # (Auto) (0.0-2.0) K/mm3 pCO2 51 H 70 H (35-45) mm/Hg pO2 59.0 L 105.0 H (80-100) mm/Hg HCO3 33.9 H 38.6 H (21-28) mmol/L ABG pH 7.43 7.35 (7.35-7.45) ABG Total CO2 35.5 H 40.7 H (22-28) mmol.L ABG O2 Saturation 95.9 98.9 H (95-98) % ABG O2 Content 11.4 L 12.6 L (15-23) ML/dl ABG Base Excess 8.5 H 11.1 H (-2.0-3.0) mmol/L ABG Hemoglobin 8.6 L 9.2 L (11.7-17.4) g/dL ABG Carboxyhemoglobin 1.8 H 2.5 H (0.5-1.5) % POC ABG HHb (Measured) 4.0 1.1 (0-5) % ABG Methemoglobin 0.4 0.7 (0.0-3.0) % ABG O2 Capacity 11.9 L 12.7 L (16-24) mL/dl Hgb O2 Saturation 93.8 L 95.6 (95.0-98.0) % FiO2 50.0 50.0 % Sodium (132-148) mmol/L Potassium (3.6-5.0) mmol/L Chloride (98-107) mmol/L Carbon Dioxide (21-33) mmol/L Anion Gap (10-20) BUN (7-21) mg/dL Creatinine (0.7-1.2) mg/dl Est GFR ( Amer) Est GFR (Non-Af Amer) POC Glucose (mg/dL) 180 H (65-110) mg/dL Random Glucose (70-110) mg/dL Calcium (8.4-10.5) mg/dL Phosphorus (2.5-4.5) mg/dL Magnesium (1.7-2.2) mg/dL Total Bilirubin (0.2-1.3) mg/dL AST (14-36) U/L ALT (7-56) U/L Alkaline Phosphatase (38-126) U/L NT-Pro-B Natriuret Pep (0-450) pg/mL Total Protein (5.8-8.3) g/dL Albumin (3.0-4.8) g/dL Globulin gm/dL Albumin/Globulin Ratio (1.1-1.8) Procalcitonin (0.19-0.49) NG/ML Urine Color (YELLOW) Urine Appearance (CLEAR) Urine pH (4.7-8.0) Ur Specific [place] (1.005-1.035) Urine Protein (<30 mg/dL) mg/dL Urine Glucose (UA) (NEGATIVE) mg/dL Urine Ketones (NEGATIVE) mg/dL Urine Blood (NEGATIVE) Urine Nitrate (NEGATIVE) Urine Bilirubin (NEGATIVE) Urine Urobilinogen (<1 E.U./dL) E.U./dL Ur Leukocyte Esterase (NEGATIVE) [place]/uL Urine RBC (0-2) /hpf Urine WBC (0-6) /hpf Ur Epithelial Cells (0-5) /hpf Urine Bacteria (NONE) /hpf Urine Opiates Screen (NEGATIVE) Urine Methadone Screen (NEGATIVE) Acetaminophen (10.0-20.0) ug/ml Ur Barbiturates Screen (NEGATIVE) Ur Phencyclidine Scrn (NEGATIVE) Ur Amphetamines Screen (NEGATIVE) U Benzodiazepines Scrn (NEGATIVE) U Oth Cocaine Metabols (NEGATIVE) U Cannabinoids Screen (NEGATIVE) Ur L.pneumophila Ag (NEGATIVE) 03/08/18 03/08/18 03/08/18 Range/Units 20:01 18:08 18:08 WBC (4.5-11.0) 10^3/uL RBC (3.5-6.1) 10^6/uL Hgb (12.0-16.0) g/dL Hct (36.0-48.0) % MCV (80.0-105.0) fl MCH (25.0-35.0) pg MCHC (31.0-37.0) g/dl RDW (11.5-14.5) % Plt Count (120.0-450.0) 10^3/uL MPV (7.0-11.0) fl Gran % (50.0-68.0) % Lymph % (Auto) (22.0-35.0) % [place] % (Auto) (1.0-6.0) % Eos % (Auto) (1.5-5.0) % Baso % (Auto) (0.0-3.0) % Gran # (1.4-6.5) Lymph # (Auto) (1.2-3.4) [place] # (Auto) (0.1-0.6) Eos # (Auto) (0.0-0.7) Baso # (Auto) (0.0-2.0) K/mm3 pCO2 (35-45) mm/Hg pO2 (80-100) mm/Hg HCO3 (21-28) mmol/L ABG pH (7.35-7.45) ABG Total CO2 (22-28) mmol.L ABG O2 Saturation (95-98) % ABG O2 Content (15-23) ML/dl ABG Base Excess (-2.0-3.0) mmol/L ABG Hemoglobin (11.7-17.4) g/dL ABG Carboxyhemoglobin (0.5-1.5) % POC ABG HHb (Measured) (0-5) % ABG Methemoglobin (0.0-3.0) % ABG O2 Capacity (16-24) mL/dl Hgb O2 Saturation (95.0-98.0) % FiO2 % Sodium (132-148) mmol/L Potassium (3.6-5.0) mmol/L Chloride (98-107) mmol/L Carbon Dioxide (21-33) mmol/L Anion Gap (10-20) BUN (7-21) mg/dL Creatinine (0.7-1.2) mg/dl Est GFR ( Amer) Est GFR (Non-Af Amer) POC Glucose (mg/dL) (65-110) mg/dL Random Glucose (70-110) mg/dL Calcium (8.4-10.5) mg/dL Phosphorus (2.5-4.5) mg/dL Magnesium (1.7-2.2) mg/dL Total Bilirubin (0.2-1.3) mg/dL AST (14-36) U/L ALT (7-56) U/L Alkaline Phosphatase (38-126) U/L NT-Pro-B Natriuret Pep (0-450) pg/mL Total Protein (5.8-8.3) g/dL Albumin (3.0-4.8) g/dL Globulin gm/dL Albumin/Globulin Ratio (1.1-1.8) Procalcitonin (0.19-0.49) NG/ML Urine Color Yellow (YELLOW) Urine Appearance Clear (CLEAR) Urine pH 6.0 (4.7-8.0) Ur Specific [place] 1.025 (1.005-1.035) Urine Protein 100 H (<30 mg/dL) mg/dL Urine Glucose (UA) Negative (NEGATIVE) mg/dL Urine Ketones Negative (NEGATIVE) mg/dL Urine Blood Trace-intact H (NEGATIVE) Urine Nitrate Negative (NEGATIVE) Urine Bilirubin Negative (NEGATIVE) Urine Urobilinogen 0.2 (<1 E.U./dL) E.U./dL Ur Leukocyte Esterase Negative (NEGATIVE) [place]/uL Urine RBC 2 - 5 H (0-2) /hpf Urine WBC 5 - 10 H (0-6) /hpf Ur Epithelial Cells 1 - 3 (0-5) /hpf Urine Bacteria Many (NONE) /hpf Urine Opiates Screen Negative (NEGATIVE) Urine Methadone Screen Negative (NEGATIVE) Acetaminophen (10.0-20.0) ug/ml Ur Barbiturates Screen Negative (NEGATIVE) Ur Phencyclidine Scrn Negative (NEGATIVE) Ur Amphetamines Screen Negative (NEGATIVE) U Benzodiazepines Scrn Positive H (NEGATIVE) U Oth Cocaine Metabols Negative (NEGATIVE) U Cannabinoids Screen Negative (NEGATIVE) Ur L.pneumophila Ag Negative (NEGATIVE) 03/08/18 03/08/18 03/08/18 Range/Units 15:20 13:30 13:30 WBC (4.5-11.0) 10^3/uL RBC (3.5-6.1) 10^6/uL Hgb (12.0-16.0) g/dL Hct (36.0-48.0) % MCV (80.0-105.0) fl MCH (25.0-35.0) pg MCHC (31.0-37.0) g/dl RDW (11.5-14.5) % Plt Count (120.0-450.0) 10^3/uL MPV (7.0-11.0) fl Gran % (50.0-68.0) % Lymph % (Auto) (22.0-35.0) % [place] % (Auto) (1.0-6.0) % Eos % (Auto) (1.5-5.0) % Baso % (Auto) (0.0-3.0) % Gran # (1.4-6.5) Lymph # (Auto) (1.2-3.4) [place] # (Auto) (0.1-0.6) Eos # (Auto) (0.0-0.7) Baso # (Auto) (0.0-2.0) K/mm3 pCO2 107 H* (35-45) mm/Hg pO2 96.0 (80-100) mm/Hg HCO3 39.0 H (21-28) mmol/L ABG pH 7.17 L* (7.35-7.45) ABG Total CO2 42.3 H (22-28) mmol.L ABG O2 Saturation 98.5 H (95-98) % ABG O2 Content 12.5 L (15-23) ML/dl ABG Base Excess 8.2 H (-2.0-3.0) mmol/L ABG Hemoglobin 9.3 L (11.7-17.4) g/dL ABG Carboxyhemoglobin 3.7 H (0.5-1.5) % POC ABG HHb (Measured) 1.4 (0-5) % ABG Methemoglobin 0.3 (0.0-3.0) % ABG O2 Capacity 12.7 L (16-24) mL/dl Hgb O2 Saturation 94.7 L (95.0-98.0) % FiO2 32.0 % Sodium (132-148) mmol/L Potassium (3.6-5.0) mmol/L Chloride (98-107) mmol/L Carbon Dioxide (21-33) mmol/L Anion Gap (10-20) BUN (7-21) mg/dL Creatinine (0.7-1.2) mg/dl Est GFR ( Amer) Est GFR (Non-Af Amer) POC Glucose (mg/dL) (65-110) mg/dL Random Glucose (70-110) mg/dL Calcium (8.4-10.5) mg/dL Phosphorus (2.5-4.5) mg/dL Magnesium (1.7-2.2) mg/dL Total Bilirubin (0.2-1.3) mg/dL AST (14-36) U/L ALT (7-56) U/L Alkaline Phosphatase (38-126) U/L NT-Pro-B Natriuret Pep 2900 H (0-450) pg/mL Total Protein (5.8-8.3) g/dL Albumin (3.0-4.8) g/dL Globulin gm/dL Albumin/Globulin Ratio (1.1-1.8) Procalcitonin 0.11 L (0.19-0.49) NG/ML Urine Color (YELLOW) Urine Appearance (CLEAR) Urine pH (4.7-8.0) Ur Specific [place] (1.005-1.035) Urine Protein (<30 mg/dL) mg/dL Urine Glucose (UA) (NEGATIVE) mg/dL Urine Ketones (NEGATIVE) mg/dL Urine Blood (NEGATIVE) Urine Nitrate (NEGATIVE) Urine Bilirubin (NEGATIVE) Urine Urobilinogen (<1 E.U./dL) E.U./dL Ur Leukocyte Esterase (NEGATIVE) [place]/uL Urine RBC (0-2) /hpf Urine WBC (0-6) /hpf Ur Epithelial Cells (0-5) /hpf Urine Bacteria (NONE) /hpf Urine Opiates Screen (NEGATIVE) Urine Methadone Screen (NEGATIVE) Acetaminophen (10.0-20.0) ug/ml Ur Barbiturates Screen (NEGATIVE) Ur Phencyclidine Scrn (NEGATIVE) Ur Amphetamines Screen (NEGATIVE) U Benzodiazepines Scrn (NEGATIVE) U Oth Cocaine Metabols (NEGATIVE) U Cannabinoids Screen (NEGATIVE) Ur L.pneumophila Ag (NEGATIVE) 03/08/18 Range/Units 13:30 WBC (4.5-11.0) 10^3/uL RBC (3.5-6.1) 10^6/uL Hgb (12.0-16.0) g/dL Hct (36.0-48.0) % MCV (80.0-105.0) fl MCH (25.0-35.0) pg MCHC (31.0-37.0) g/dl RDW (11.5-14.5) % Plt Count (120.0-450.0) 10^3/uL MPV (7.0-11.0) fl Gran % (50.0-68.0) % Lymph % (Auto) (22.0-35.0) % [place] % (Auto) (1.0-6.0) % Eos % (Auto) (1.5-5.0) % Baso % (Auto) (0.0-3.0) % Gran # (1.4-6.5) Lymph # (Auto) (1.2-3.4) [place] # (Auto) (0.1-0.6) Eos # (Auto) (0.0-0.7) Baso # (Auto) (0.0-2.0) K/mm3 pCO2 (35-45) mm/Hg pO2 (80-100) mm/Hg HCO3 (21-28) mmol/L ABG pH (7.35-7.45) ABG Total CO2 (22-28) mmol.L ABG O2 Saturation (95-98) % ABG O2 Content (15-23) ML/dl ABG Base Excess (-2.0-3.0) mmol/L ABG Hemoglobin (11.7-17.4) g/dL ABG Carboxyhemoglobin (0.5-1.5) % POC ABG HHb (Measured) (0-5) % ABG Methemoglobin (0.0-3.0) % ABG O2 Capacity (16-24) mL/dl Hgb O2 Saturation (95.0-98.0) % FiO2 % Sodium (132-148) mmol/L Potassium (3.6-5.0) mmol/L Chloride (98-107) mmol/L Carbon Dioxide (21-33) mmol/L Anion Gap (10-20) BUN (7-21) mg/dL Creatinine (0.7-1.2) mg/dl Est GFR ( Amer) Est GFR (Non-Af Amer) POC Glucose (mg/dL) (65-110) mg/dL Random Glucose (70-110) mg/dL Calcium (8.4-10.5) mg/dL Phosphorus (2.5-4.5) mg/dL Magnesium (1.7-2.2) mg/dL Total Bilirubin (0.2-1.3) mg/dL AST (14-36) U/L ALT (7-56) U/L Alkaline Phosphatase (38-126) U/L NT-Pro-B Natriuret Pep (0-450) pg/mL Total Protein (5.8-8.3) g/dL Albumin (3.0-4.8) g/dL Globulin gm/dL Albumin/Globulin Ratio (1.1-1.8) Procalcitonin (0.19-0.49) NG/ML Urine Color (YELLOW) Urine Appearance (CLEAR) Urine pH (4.7-8.0) Ur Specific [place] (1.005-1.035) Urine Protein (<30 mg/dL) mg/dL Urine Glucose (UA) (NEGATIVE) mg/dL Urine Ketones (NEGATIVE) mg/dL Urine Blood (NEGATIVE) Urine Nitrate (NEGATIVE) Urine Bilirubin (NEGATIVE) Urine Urobilinogen (<1 E.U./dL) E.U./dL Ur Leukocyte Esterase (NEGATIVE) [place]/uL Urine RBC (0-2) /hpf Urine WBC (0-6) /hpf Ur Epithelial Cells (0-5) /hpf Urine Bacteria (NONE) /hpf Urine Opiates Screen (NEGATIVE) Urine Methadone Screen (NEGATIVE) Acetaminophen < 10.0 L (10.0-20.0) ug/ml Ur Barbiturates Screen (NEGATIVE) Ur Phencyclidine Scrn (NEGATIVE) Ur Amphetamines Screen (NEGATIVE) U Benzodiazepines Scrn (NEGATIVE) U Oth Cocaine Metabols (NEGATIVE) U Cannabinoids Screen (NEGATIVE) Ur L.pneumophila Ag (NEGATIVE) Laboratory Results - last 24 hr 03/08/18 03/08/18 03/08/18 13:30 13:30 13:30 WBC RBC Hgb Hct MCV MCH MCHC RDW Plt Count MPV Gran % Lymph % (Auto) [place] % (Auto) Eos % (Auto) Baso % (Auto) Gran # Lymph # (Auto) [place] # (Auto) Eos # (Auto) Baso # (Auto) pCO2 pO2 HCO3 ABG pH ABG Total CO2 ABG O2 Saturation ABG O2 Content ABG Base Excess ABG Hemoglobin ABG Carboxyhemoglobin POC ABG HHb (Measured) ABG Methemoglobin ABG O2 Capacity Hgb O2 Saturation FiO2 Sodium Potassium Chloride Carbon Dioxide Anion Gap BUN Creatinine Est GFR ( Amer) Est GFR (Non-Af Amer) POC Glucose (mg/dL) Random Glucose Calcium Phosphorus Magnesium Total Bilirubin AST ALT Alkaline Phosphatase NT-Pro-B Natriuret Pep 2900 H Total Protein Albumin Globulin Albumin/Globulin Ratio Procalcitonin 0.11 L Urine Color Urine Appearance Urine pH Ur Specific [place] Urine Protein Urine Glucose (UA) Urine Ketones Urine Blood Urine Nitrate Urine Bilirubin Urine Urobilinogen Ur Leukocyte Esterase Urine RBC Urine WBC Ur Epithelial Cells Urine Bacteria Urine Opiates Screen Urine Methadone Screen Acetaminophen < 10.0 L Ur Barbiturates Screen Ur Phencyclidine Scrn Ur Amphetamines Screen U Benzodiazepines Scrn U Oth Cocaine Metabols U Cannabinoids Screen Ur L.pneumophila Ag 03/08/18 03/08/18 03/08/18 15:20 18:08 18:08 WBC RBC Hgb Hct MCV MCH MCHC RDW Plt Count MPV Gran % Lymph % (Auto) [place] % (Auto) Eos % (Auto) Baso % (Auto) Gran # Lymph # (Auto) [place] # (Auto) Eos # (Auto) Baso # (Auto) pCO2 107 H* pO2 96.0 HCO3 39.0 H ABG pH 7.17 L* ABG Total CO2 42.3 H ABG O2 Saturation 98.5 H ABG O2 Content 12.5 L ABG Base Excess 8.2 H ABG Hemoglobin 9.3 L ABG Carboxyhemoglobin 3.7 H POC ABG HHb (Measured) 1.4 ABG Methemoglobin 0.3 ABG O2 Capacity 12.7 L Hgb O2 Saturation 94.7 L FiO2 32.0 Sodium Potassium Chloride Carbon Dioxide Anion Gap BUN Creatinine Est GFR ( Amer) Est GFR (Non-Af Amer) POC Glucose (mg/dL) Random Glucose Calcium Phosphorus Magnesium Total Bilirubin AST ALT Alkaline Phosphatase NT-Pro-B Natriuret Pep Total Protein Albumin Globulin Albumin/Globulin Ratio Procalcitonin Urine Color Yellow Urine Appearance Clear Urine pH 6.0 Ur Specific [place] 1.025 Urine Protein 100 H Urine Glucose (UA) Negative Urine Ketones Negative Urine Blood Trace-intact H Urine Nitrate Negative Urine Bilirubin Negative Urine Urobilinogen 0.2 Ur Leukocyte Esterase Negative Urine RBC 2 - 5 H Urine WBC 5 - 10 H Ur Epithelial Cells 1 - 3 Urine Bacteria Many Urine Opiates Screen Negative Urine Methadone Screen Negative Acetaminophen Ur Barbiturates Screen Negative Ur Phencyclidine Scrn Negative Ur Amphetamines Screen Negative U Benzodiazepines Scrn Positive H U Oth Cocaine Metabols Negative U Cannabinoids Screen Negative Ur L.pneumophila Ag 03/08/18 03/08/18 03/08/18 20:01 20:50 23:33 WBC RBC Hgb Hct MCV MCH MCHC RDW Plt Count MPV Gran % Lymph % (Auto) [place] % (Auto) Eos % (Auto) Baso % (Auto) Gran # Lymph # (Auto) [place] # (Auto) Eos # (Auto) Baso # (Auto) pCO2 70 H pO2 105.0 H HCO3 38.6 H ABG pH 7.35 ABG Total CO2 40.7 H ABG O2 Saturation 98.9 H ABG O2 Content 12.6 L ABG Base Excess 11.1 H ABG Hemoglobin 9.2 L ABG Carboxyhemoglobin 2.5 H POC ABG HHb (Measured) 1.1 ABG Methemoglobin 0.7 ABG O2 Capacity 12.7 L Hgb O2 Saturation 95.6 FiO2 50.0 Sodium Potassium Chloride Carbon Dioxide Anion Gap BUN Creatinine Est GFR ( Amer) Est GFR (Non-Af Amer) POC Glucose (mg/dL) 180 H Random Glucose Calcium Phosphorus Magnesium Total Bilirubin AST ALT Alkaline Phosphatase NT-Pro-B Natriuret Pep Total Protein Albumin Globulin Albumin/Globulin Ratio Procalcitonin Urine Color Urine Appearance Urine pH Ur Specific [place] Urine Protein Urine Glucose (UA) Urine Ketones Urine Blood Urine Nitrate Urine Bilirubin Urine Urobilinogen Ur Leukocyte Esterase Urine RBC Urine WBC Ur Epithelial Cells Urine Bacteria Urine Opiates Screen Urine Methadone Screen Acetaminophen Ur Barbiturates Screen Ur Phencyclidine Scrn Ur Amphetamines Screen U Benzodiazepines Scrn U Oth Cocaine Metabols U Cannabinoids Screen Ur L.pneumophila Ag Negative 03/09/18 03/09/18 03/09/18 05:10 06:00 06:00 WBC 5.5 RBC 3.31 L Hgb 8.9 L Hct 33.0 L MCV 99.7 MCH 26.9 MCHC 27.0 L RDW 16.7 H Plt Count 287 MPV 10.6 Gran % 87.8 H Lymph % (Auto) 9.1 L [place] % (Auto) 3.1 Eos % (Auto) 0.0 L Baso % (Auto) 0.0 Gran # 4.84 Lymph # (Auto) 0.5 L [place] # (Auto) 0.2 Eos # (Auto) 0.0 Baso # (Auto) 0.00 pCO2 51 H pO2 59.0 L HCO3 33.9 H ABG pH 7.43 ABG Total CO2 35.5 H ABG O2 Saturation 95.9 ABG O2 Content 11.4 L ABG Base Excess 8.5 H ABG Hemoglobin 8.6 L ABG Carboxyhemoglobin 1.8 H POC ABG HHb (Measured) 4.0 ABG Methemoglobin 0.4 ABG O2 Capacity 11.9 L Hgb O2 Saturation 93.8 L FiO2 50.0 Sodium 151 H Potassium 4.6 Chloride 108 H Carbon Dioxide 35 H Anion Gap 13 BUN 42 H Creatinine 2.6 H Est GFR ( Amer) 23 Est GFR (Non-Af Amer) 19 POC Glucose (mg/dL) Random Glucose 199 H Calcium 8.6 Phosphorus 2.6 Magnesium 1.7 Total Bilirubin 0.4 AST 23 ALT 24 Alkaline Phosphatase 76 NT-Pro-B Natriuret Pep Total Protein 6.7 Albumin 3.5 Globulin 3.3 Albumin/Globulin Ratio 1.1 Procalcitonin Urine Color Urine Appearance Urine pH Ur Specific [place] Urine Protein Urine Glucose (UA) Urine Ketones Urine Blood Urine Nitrate Urine Bilirubin Urine Urobilinogen Ur Leukocyte Esterase Urine RBC Urine WBC Ur Epithelial Cells Urine Bacteria Urine Opiates Screen Urine Methadone Screen Acetaminophen Ur Barbiturates Screen Ur Phencyclidine Scrn Ur Amphetamines Screen U Benzodiazepines Scrn U Oth Cocaine Metabols U Cannabinoids Screen Ur L.pneumophila Ag 03/09/18 06:00 WBC RBC Hgb Hct MCV MCH MCHC RDW Plt Count MPV Gran % Lymph % (Auto) [place] % (Auto) Eos % (Auto) Baso % (Auto) Gran # Lymph # (Auto) [place] # (Auto) Eos # (Auto) Baso # (Auto) pCO2 pO2 HCO3 ABG pH ABG Total CO2 ABG O2 Saturation ABG O2 Content ABG Base Excess ABG Hemoglobin ABG Carboxyhemoglobin POC ABG HHb (Measured) ABG Methemoglobin ABG O2 Capacity Hgb O2 Saturation FiO2 Sodium Potassium Chloride Carbon Dioxide Anion Gap BUN Creatinine Est GFR ( Amer) Est GFR (Non-Af Amer) POC Glucose (mg/dL) 200 H Random Glucose Calcium Phosphorus Magnesium Total Bilirubin AST ALT Alkaline Phosphatase NT-Pro-B Natriuret Pep Total Protein Albumin Globulin Albumin/Globulin Ratio Procalcitonin Urine Color Urine Appearance Urine pH Ur Specific [place] Urine Protein Urine Glucose (UA) Urine Ketones Urine Blood Urine Nitrate Urine Bilirubin Urine Urobilinogen Ur Leukocyte Esterase Urine RBC Urine WBC Ur Epithelial Cells Urine Bacteria Urine Opiates Screen Urine Methadone Screen Acetaminophen Ur Barbiturates Screen Ur Phencyclidine Scrn Ur Amphetamines Screen U Benzodiazepines Scrn U Oth Cocaine Metabols U Cannabinoids Screen Ur L.pneumophila Ag Radiology Impressions: Radiology Impressions Chest X-Ray 03/08/18 13:37 IMPRESSION: Consolidation in the right lower lobe with mediastinal shift consistent with lobar atelectasis. This is suspicious for a mucus plug or endobronchial lesion. Moderate to large right pleural effusion. Head CT 03/08/18 14:43 IMPRESSION: No evidence of acute intracranial hemorrhage intracranial collection mass effect or midline shift. Ethmoid sinuses mucosal thickening and bilateral mastoid effusions. Preliminary report was submitted by [facility] Radiology contains concordant findings. Chest X-Ray 03/08/18 18:00 IMPRESSION: Complete opacification of the right hemithorax with shift of trachea and mediastinum to the right most compatible with right lung collapse. Endotracheal tube terminates in the mid trachea. Chest X-Ray 03/09/18 07:18 IMPRESSION: The previous study showed complete atelectasis of the right lung with mediastinal shift. The current study shows much improved aeration of the right lung. There is a minimal residual infiltrate at the right lung base. Endotracheal tube remains in satisfactory position Assessment/Plan - Assessment and Plan (Free Text) Plan: Patient seen and examined on rounds with resident, agree with note with following additions/exceptions: Patient is 57yo female with PMH of COPD, asthma, DM2, breast cancer and xanax use presented with hypercapnic resp failure, failed BIPAP, and intubated in the ER. Patient currently afebrile, BP stable, comfortable in NAD, awake, following commands, ABG and labs noted CXR with markedly improvement in R sided aeration Pulmonary following Hypercapnic Resp failure DM End stage COPD Hx breast CA Recommend: - cont with low tidal vol ventilation, ABG acceptable, placed on CPAP trial possible extubation today after discussion with family regarding code status - Cefepime, Vanco, Doxy - follow up cultures - CT chest without contrast' - Solumedrol 40mg IV TID - NPO - FS control - discuss with family code status, patient was DNR/DNI on previous hospitalization last month in Nov, which the son REVERSED yesterday; will need to clarify goals of care and code status - GI ppx - DVT ppx - Monitor in MICU Critical care time 35 minutes
--- NOTE | 2018-03-09 08:21 | CP.PCM.CON ---
<PercyImelda - Last Filed: 03/09/18 14:08> History of Present Illness - History of Present Illness History of Present Illness: PGY-[address] Damon ID Consult: Cellulitis and CAP Ms Granado, 57F, active smoker with COPD, breast ca, DM, CKD, was sent by EMS for altered mental status. History is limited to record review because pt is intubated. Per sons, for the past 2 weeks, pt had been in and out of consciousness, but pt refused to come to the hospital. Yesterday, per sons, pt was having normal conversation, able to walk around, but fell unconscious, called EMS. In the ED, pt was found to have large R-side pleural effusion. Pt had hypercapnic respiratory failure (pH 7.17, PaCO2 107) and intubated. Pt had Tmax 100.4 overnight Pt was recently hospitalized for ROS limited due to pt sedation PMH Severe COPD, active smoker Hx respiratory failure requiring intubation Hx L breast cancer (Dx 2015) invasive ductal carcinoma, ER+/HER2+. Got 1 cycle of sandee-adjuvant chemo. After that, refuse chemo/surgery. DM (A1C 9.2, Jan 2018) HTN CKD 3 with Anemia, requiring erythropoietin Hx Enteroccus UTI Hx Carmen esophagitis Recent hosp (Jan 2018) Xanax/oxycodone OD Non-compliance Anxiety on xanas PSH Mastectomy Bladder surgery Spine surgery SH Lives at home with son, Hx drug overdose All Levaquin Nystatin Med See MAR Past Patient History - Infectious Disease Hx of Infectious Diseases: None - Tetanus Immunizations Tetanus Immunization: Unknown - Past Medical History & Family History Past Medical History?: Yes - Past Social History Smoking Status: Former Smoker - CARDIAC Hx Cardiac Disorders: Yes Hx Hypertension: Yes - PULMONARY Hx Respiratory Disorders: Yes Hx Chronic Obstructive Pulmonary Disease (COPD): Yes Hx Emphysema: Yes Hx Pneumonia: Yes - NEUROLOGICAL Hx Neurological Disorder: No - HEENT Hx HEENT Problems: No - RENAL Hx Chronic Kidney Disease: No - ENDOCRINE/METABOLIC Hx Endocrine Disorders: Yes Hx Diabetes Mellitus Type 2: Yes - HEMATOLOGICAL/ONCOLOGICAL Hx Blood Disorders: Yes (blood transfusion) Hx Cancer: Yes (left breast dx 06/2015) Hx Chemotherapy: Yes (2016 as per son) - INTEGUMENTARY Hx Dermatological Problems: No - MUSCULOSKELETAL/RHEUMATOLOGICAL Hx Falls: Yes - GASTROINTESTINAL Hx Gastrointestinal Disorders: No - GENITOURINARY/GYNECOLOGICAL Hx Genitourinary Disorders: No - PSYCHIATRIC Hx Psychophysiologic Disorder: Yes Hx Anxiety: Yes Hx Depression: Yes Hx Substance Use: No - SURGICAL HISTORY Hx Surgeries: Yes - ANESTHESIA Hx Anesthesia: Yes Hx Anesthesia Reactions: No Hx Malignant Hyperthermia: No Meds Allergies/Adverse Reactions: Allergies Allergy/AdvReac Type Severity Reaction Status Date / Time levofloxacin [From Levaquin] Allergy SHORTNESS Verified 11/23/17 02:24 OF BREATH;PARANOID nystatin Allergy SWELLING Verified 11/23/17 02:24 - Medications Medications: Current Medications Aspirin (Aspirin Chewable) 81 mg PO DAILY [facility] Atorvastatin Calcium (Lipitor) 10 mg PO DAILY [facility] Heparin Sodium (Porcine) (Heparin) 5,000 units SC Q8H [facility]; Protocol Last Admin: 03/09/18 00:00 Dose: 5,000 units Vancomycin HCl (Vancomycin 1gm) 1 gm in 250 mls @ 167 mls/hr IVPB DAILY [facility]; Protocol Doxycycline Hyclate 100 mg/ (Sodium Chloride) 100 mls @ 100 mls/hr IVPB Q12 [facility]; Protocol Last Admin: 03/08/18 23:03 Dose: 100 mls/hr Fentanyl Citrate (Fentanyl Citrate/Sodium Chloride 1 Mg/100 Ml) 1,000 mcg in 100 mls @ 2 mls/hr IV .Q24H [facility]; Protocol Stop: 03/09/18 18:01 Last Titration: 03/08/18 21:15 Dose: 100 mcg/hr, 10 mls/hr Fentanyl Citrate (Fentanyl Citrate/Sodium Chloride 1 Mg/100 Ml) 1,000 mcg in 100 mls @ 2 mls/hr IV .Q24H PRN; Protocol PRN Reason: TITRATE PER MD ORDER Last Admin: 03/09/18 06:45 Dose: 40 mcg/hr, 4 mls/hr Cefepime HCl (Maxipime 1gm) 1 gm in 100 mls @ 25 mls/hr IVPB Q12 [facility]; Protocol Methylprednisolone (Solu-Medrol) 40 mg IVP Q8H [facility] Last Admin: 03/09/18 06:16 Dose: 40 mg Pantoprazole Sodium (Protonix Inj) 40 mg IVP DAILY [facility] Physical Exam - Constitutional Additional comments: sedated - Head Exam Head Exam: ATRAUMATIC, NORMAL INSPECTION, NORMOCEPHALIC - Eye Exam Eye Exam: EOMI, Normal appearance, Periorbital swelling, PERRL. absent: Scleral icterus - ENT Exam ENT Exam: Mucous Membranes Moist - Neck Exam Additional comments: supple - Respiratory Exam Respiratory Exam: Rhonchi Additional comments: intubated - Cardiovascular Exam Cardiovascular Exam: REGULAR RHYTHM, +S1, +S2, Systolic Murmur - GI/Abdominal Exam GI & Abdominal Exam: Normal Bowel Sounds, Soft. absent: Tenderness - Extremities Exam Extremities exam: Positive for: pedal pulses present Additional comments: faint redness circumferential distal leg b/l with well demarcated irregular border. no weeping, no drainage. Excoriation moody b/l legs and abdomen - Neurological Exam Additional comments: sedated for intubation - Skin Skin Exam: Dry, Warm Additional comments: port-a-cath in place Results - Vital Signs Recent Vital Signs: Last Vital Signs Temp 100.4 F H 03/09/18 03:10 Pulse 91 H 03/09/18 03:10 Resp 35 H 03/08/18 21:16 BP 137/70 03/09/18 03:01 Pulse Ox 100 03/09/18 03:10 - Labs Result Diagrams: 03/09/18 06:00 03/09/18 06:00 Labs: Laboratory Results - last 24 hr 03/08/18 03/08/18 03/08/18 13:30 13:30 13:30 WBC 5.6 D RBC 3.55 Hgb 9.8 L Hct 36.4 MCV 102.5 D MCH 27.6 MCHC 26.9 L RDW 16.3 H Plt Count 308 MPV 10.4 Gran % 73.8 H Lymph % (Auto) 15.2 L [place] % (Auto) 6.4 H Eos % (Auto) 4.1 Baso % (Auto) 0.5 Gran # 4.16 Lymph # (Auto) 0.9 L [place] # (Auto) 0.4 Eos # (Auto) 0.2 Baso # (Auto) 0.03 PT 12.5 INR 1.09 APTT 38.8 H pCO2 pO2 HCO3 ABG pH ABG Total CO2 ABG O2 Saturation ABG O2 Content ABG Base Excess ABG Hemoglobin ABG Carboxyhemoglobin POC ABG HHb (Measured) ABG Methemoglobin ABG O2 Capacity Hgb O2 Saturation FiO2 Sodium 150 H Potassium 4.8 Chloride 108 H Carbon Dioxide 39 H Anion Gap 9 L BUN 31 H Creatinine 1.8 H Est GFR ( Amer) 35 Est GFR (Non-Af Amer) 29 POC Glucose (mg/dL) Random Glucose 163 H Calcium 8.8 Phosphorus 4.2 Magnesium 1.8 Total Bilirubin 0.3 AST 44 H D ALT 19 Alkaline Phosphatase 80 Lactate Dehydrogenase 519 Total Creatine Kinase 29 L Troponin I 0.02 D NT-Pro-B Natriuret Pep Total Protein 7.3 Albumin 3.6 Globulin 3.7 Albumin/Globulin Ratio 1.0 L Procalcitonin Urine Color Urine Appearance Urine pH Ur Specific Show Low Urine Protein Urine Glucose (UA) Urine Ketones Urine Blood Urine Nitrate Urine Bilirubin Urine Urobilinogen Ur Leukocyte Esterase Urine RBC Urine WBC Ur Epithelial Cells Urine Bacteria Salicylates Urine Opiates Screen Urine Methadone Screen Acetaminophen Ur Barbiturates Screen Ur Phencyclidine Scrn Ur Amphetamines Screen U Benzodiazepines Scrn U Oth Cocaine Metabols U Cannabinoids Screen Alcohol, Quantitative 03/08/18 03/08/18 03/08/18 13:30 13:30 13:30 WBC RBC Hgb Hct MCV MCH MCHC RDW Plt Count MPV Gran % Lymph % (Auto) [place] % (Auto) Eos % (Auto) Baso % (Auto) Gran # Lymph # (Auto) [place] # (Auto) Eos # (Auto) Baso # (Auto) PT INR APTT pCO2 pO2 HCO3 ABG pH ABG Total CO2 ABG O2 Saturation ABG O2 Content ABG Base Excess ABG Hemoglobin ABG Carboxyhemoglobin POC ABG HHb (Measured) ABG Methemoglobin ABG O2 Capacity Hgb O2 Saturation FiO2 Sodium Potassium Chloride Carbon Dioxide Anion Gap BUN Creatinine Est GFR ( Amer) Est GFR (Non-Af Amer) POC Glucose (mg/dL) Random Glucose Calcium Phosphorus Magnesium Total Bilirubin AST ALT Alkaline Phosphatase Lactate Dehydrogenase Total Creatine Kinase Troponin I NT-Pro-B Natriuret Pep Total Protein Albumin Globulin Albumin/Globulin Ratio Procalcitonin Urine Color Urine Appearance Urine pH Ur Specific Show Low Urine Protein Urine Glucose (UA) Urine Ketones Urine Blood Urine Nitrate Urine Bilirubin Urine Urobilinogen Ur Leukocyte Esterase Urine RBC Urine WBC Ur Epithelial Cells Urine Bacteria Salicylates < 1 L Urine Opiates Screen Urine Methadone Screen Acetaminophen < 10.0 L Ur Barbiturates Screen Ur Phencyclidine Scrn Ur Amphetamines Screen U Benzodiazepines Scrn U Oth Cocaine Metabols U Cannabinoids Screen Alcohol, Quantitative < 10 03/08/18 03/08/18 03/08/18 13:30 13:30 13:38 WBC RBC Hgb Hct MCV MCH MCHC RDW Plt Count MPV Gran % Lymph % (Auto) [place] % (Auto) Eos % (Auto) Baso % (Auto) Gran # Lymph # (Auto) [place] # (Auto) Eos # (Auto) Baso # (Auto) PT INR APTT pCO2 pO2 HCO3 ABG pH ABG Total CO2 ABG O2 Saturation ABG O2 Content ABG Base Excess ABG Hemoglobin ABG Carboxyhemoglobin POC ABG HHb (Measured) ABG Methemoglobin ABG O2 Capacity Hgb O2 Saturation FiO2 Sodium Potassium Chloride Carbon Dioxide Anion Gap BUN Creatinine Est GFR ( Amer) Est GFR (Non-Af Amer) POC Glucose (mg/dL) 144 H Random Glucose Calcium Phosphorus Magnesium Total Bilirubin AST ALT Alkaline Phosphatase Lactate Dehydrogenase Total Creatine Kinase Troponin I NT-Pro-B Natriuret Pep 2900 H Total Protein Albumin Globulin Albumin/Globulin Ratio Procalcitonin 0.11 L Urine Color Urine Appearance Urine pH Ur Specific Show Low Urine Protein Urine Glucose (UA) Urine Ketones Urine Blood Urine Nitrate Urine Bilirubin Urine Urobilinogen Ur Leukocyte Esterase Urine RBC Urine WBC Ur Epithelial Cells Urine Bacteria Salicylates Urine Opiates Screen Urine Methadone Screen Acetaminophen Ur Barbiturates Screen Ur Phencyclidine Scrn Ur Amphetamines Screen U Benzodiazepines Scrn U Oth Cocaine Metabols U Cannabinoids Screen Alcohol, Quantitative 03/08/18 03/08/18 03/08/18 15:20 18:08 18:08 WBC RBC Hgb Hct MCV MCH MCHC RDW Plt Count MPV Gran % Lymph % (Auto) [place] % (Auto) Eos % (Auto) Baso % (Auto) Gran # Lymph # (Auto) [place] # (Auto) Eos # (Auto) Baso # (Auto) PT INR APTT pCO2 107 H* pO2 96.0 HCO3 39.0 H ABG pH 7.17 L* ABG Total CO2 42.3 H ABG O2 Saturation 98.5 H ABG O2 Content 12.5 L ABG Base Excess 8.2 H ABG Hemoglobin 9.3 L ABG Carboxyhemoglobin 3.7 H POC ABG HHb (Measured) 1.4 ABG Methemoglobin 0.3 ABG O2 Capacity 12.7 L Hgb O2 Saturation 94.7 L FiO2 32.0 Sodium Potassium Chloride Carbon Dioxide Anion Gap BUN Creatinine Est GFR ( Amer) Est GFR (Non-Af Amer) POC Glucose (mg/dL) Random Glucose Calcium Phosphorus Magnesium Total Bilirubin AST ALT Alkaline Phosphatase Lactate Dehydrogenase Total Creatine Kinase Troponin I NT-Pro-B Natriuret Pep Total Protein Albumin Globulin Albumin/Globulin Ratio Procalcitonin Urine Color Yellow Urine Appearance Clear Urine pH 6.0 Ur Specific Show Low 1.025 Urine Protein 100 H Urine Glucose (UA) Negative Urine Ketones Negative Urine Blood Trace-intact H Urine Nitrate Negative Urine Bilirubin Negative Urine Urobilinogen 0.2 Ur Leukocyte Esterase Negative Urine RBC 2 - 5 H Urine WBC 5 - 10 H Ur Epithelial Cells 1 - 3 Urine Bacteria Many Salicylates Urine Opiates Screen Negative Urine Methadone Screen Negative Acetaminophen Ur Barbiturates Screen Negative Ur Phencyclidine Scrn Negative Ur Amphetamines Screen Negative U Benzodiazepines Scrn Positive H U Oth Cocaine Metabols Negative U Cannabinoids Screen Negative Alcohol, Quantitative 03/08/18 03/08/18 03/09/18 20:50 23:33 05:10 WBC RBC Hgb Hct MCV MCH MCHC RDW Plt Count MPV Gran % Lymph % (Auto) [place] % (Auto) Eos % (Auto) Baso % (Auto) Gran # Lymph # (Auto) [place] # (Auto) Eos # (Auto) Baso # (Auto) PT INR APTT pCO2 70 H 51 H pO2 105.0 H 59.0 L HCO3 38.6 H 33.9 H ABG pH 7.35 7.43 ABG Total CO2 40.7 H 35.5 H ABG O2 Saturation 98.9 H 95.9 ABG O2 Content 12.6 L 11.4 L ABG Base Excess 11.1 H 8.5 H ABG Hemoglobin 9.2 L 8.6 L ABG Carboxyhemoglobin 2.5 H 1.8 H POC ABG HHb (Measured) 1.1 4.0 ABG Methemoglobin 0.7 0.4 ABG O2 Capacity 12.7 L 11.9 L Hgb O2 Saturation 95.6 93.8 L FiO2 50.0 50.0 Sodium Potassium Chloride Carbon Dioxide Anion Gap BUN Creatinine Est GFR ( Amer) Est GFR (Non-Af Amer) POC Glucose (mg/dL) 180 H Random Glucose Calcium Phosphorus Magnesium Total Bilirubin AST ALT Alkaline Phosphatase Lactate Dehydrogenase Total Creatine Kinase Troponin I NT-Pro-B Natriuret Pep Total Protein Albumin Globulin Albumin/Globulin Ratio Procalcitonin Urine Color Urine Appearance Urine pH Ur Specific Show Low Urine Protein Urine Glucose (UA) Urine Ketones Urine Blood Urine Nitrate Urine Bilirubin Urine Urobilinogen Ur Leukocyte Esterase Urine RBC Urine WBC Ur Epithelial Cells Urine Bacteria Salicylates Urine Opiates Screen Urine Methadone Screen Acetaminophen Ur Barbiturates Screen Ur Phencyclidine Scrn Ur Amphetamines Screen U Benzodiazepines Scrn U Oth Cocaine Metabols U Cannabinoids Screen Alcohol, Quantitative 03/09/18 03/09/18 03/09/18 06:00 06:00 06:00 WBC 5.5 RBC 3.31 L Hgb 8.9 L Hct 33.0 L MCV 99.7 MCH 26.9 MCHC 27.0 L RDW 16.7 H Plt Count 287 MPV 10.6 Gran % 87.8 H Lymph % (Auto) 9.1 L [place] % (Auto) 3.1 Eos % (Auto) 0.0 L Baso % (Auto) 0.0 Gran # 4.84 Lymph # (Auto) 0.5 L [place] # (Auto) 0.2 Eos # (Auto) 0.0 Baso # (Auto) 0.00 PT INR APTT pCO2 pO2 HCO3 ABG pH ABG Total CO2 ABG O2 Saturation ABG O2 Content ABG Base Excess ABG Hemoglobin ABG Carboxyhemoglobin POC ABG HHb (Measured) ABG Methemoglobin ABG O2 Capacity Hgb O2 Saturation FiO2 Sodium 151 H Potassium 4.6 Chloride 108 H Carbon Dioxide 35 H Anion Gap 13 BUN 42 H Creatinine 2.6 H Est GFR ( Amer) 23 Est GFR (Non-Af Amer) 19 POC Glucose (mg/dL) 200 H Random Glucose 199 H Calcium 8.6 Phosphorus 2.6 Magnesium 1.7 Total Bilirubin 0.4 AST 23 ALT 24 Alkaline Phosphatase 76 Lactate Dehydrogenase Total Creatine Kinase Troponin I NT-Pro-B Natriuret Pep Total Protein 6.7 Albumin 3.5 Globulin 3.3 Albumin/Globulin Ratio 1.1 Procalcitonin Urine Color Urine Appearance Urine pH Ur Specific Show Low Urine Protein Urine Glucose (UA) Urine Ketones Urine Blood Urine Nitrate Urine Bilirubin Urine Urobilinogen Ur Leukocyte Esterase Urine RBC Urine WBC Ur Epithelial Cells Urine Bacteria Salicylates Urine Opiates Screen Urine Methadone Screen Acetaminophen Ur Barbiturates Screen Ur Phencyclidine Scrn Ur Amphetamines Screen U Benzodiazepines Scrn U Oth Cocaine Metabols U Cannabinoids Screen Alcohol, Quantitative Assessment & Plan - Assessment and Plan (Free Text) Plan: Ms Granado, 57F, active smoker with COPD, breast ca, DM, CKD, was admitted for altered mental status. Pt was found to have large R-side pleural effusion with mediastinal shift and lobar atelectasis, complicated by hypercapnic respiratory failure which required intubation. Pt had Tmax 100.4 overnight Severe R sided pleural effusion complicated by hypercapnic respiratory failure SIRS likely due to pleural effusion with mediastinal shift and lobar atelectasis Cannot rule out sepsis. Etiology unclear. Tmax 100.4. WBC 5.5. Procalcitonin 0.11 (low) Questionable infection source as pneumonia. Hx recent hospitalization. Venous stasis dermititis. No concern for cellulitis for now Levofloxacin, nystatin allergy Plan - Vancomycin x 1 to cover MRSA - Continue cephepime and doxycycline (day 1) while ruling out pneumonia - If PNA is suspected, need to rule out empyema. - Continue follow up on CXR for possible infiltrates, WBC, and clinical signs of infection - follow up with ICU team re: diagnostic vs therapeutic thoracentesis - follow on blood and urine culture. s/r/d/w Dr. Damon <Chung Damon - Last Filed: 03/09/18 22:56> Meds - Medications Medications: Current Medications Albuterol/Ipratropium (Duoneb 3 Mg/0.5 Mg (3 Ml) Ud) 3 ml IH [id number] PRN PRN Reason: Shortness of Breath Arformoterol Tartrate (Brovana) 15 mcg IH [id number] [facility] Last Admin: 03/09/18 19:18 Dose: 15 mcg Aspirin (Aspirin Chewable) 81 mg PO DAILY [facility] Last Admin: 03/09/18 10:06 Dose: Not Given Atorvastatin Calcium (Lipitor) 10 mg PO DAILY [facility] Last Admin: 03/09/18 10:07 Dose: Not Given Budesonide (Pulmicort Respules) 0.5 mg IH [id number] [facility] Last Admin: 03/09/18 19:18 Dose: 0.5 mg Heparin Sodium (Porcine) (Heparin) 5,000 units SC Q8H [facility]; Protocol Last Admin: 03/09/18 16:39 Dose: 5,000 units Doxycycline Hyclate 100 mg/ (Sodium Chloride) 100 mls @ 100 mls/hr IVPB Q12 [facility]; Protocol Last Admin: 03/09/18 10:08 Dose: 100 mls/hr Fentanyl Citrate (Fentanyl Citrate/Sodium Chloride 1 Mg/100 Ml) 1,000 mcg in 100 mls @ 2 mls/hr IV .Q24H PRN; Protocol PRN Reason: TITRATE PER MD ORDER Last Titration: 03/09/18 15:05 Dose: 0 mcg/hr, 0 mls/hr Cefepime HCl (Maxipime 1gm) 1 gm in 100 mls @ 25 mls/hr IVPB Q12 [facility]; Protocol Last Admin: 03/09/18 10:09 Dose: 25 mls/hr Propofol (Diprivan) 1,000 mg in 100 mls @ 2.177 mls/hr IV .Q24H PRN; Protocol PRN Reason: TITRATE PER MD ORDER Last Titration: 03/09/18 15:05 Dose: 0 mcg/kg/min, 0 mls/hr Insulin Human Regular (Humulin R Low) 0 units SC ACHS [facility]; Protocol Last Admin: 03/09/18 16:11 Dose: Not Given Methylprednisolone (Solu-Medrol) 40 mg IVP Q8H [facility] Last Admin: 03/09/18 16:39 Dose: 40 mg Pantoprazole Sodium (Protonix Inj) 40 mg IVP DAILY [facility] Last Admin: 03/09/18 10:07 Dose: 40 mg Results - Vital Signs Recent Vital Signs: Last Vital Signs Temp 99.7 F H 03/09/18 19:10 Pulse 94 H 03/09/18 19:10 Resp 17 03/09/18 19:10 BP 178/62 H 03/09/18 19:00 Pulse Ox 97 03/09/18 19:10 - Labs Result Diagrams: 03/09/18 06:00 03/09/18 06:00 Labs: Laboratory Results - last 24 hr 03/08/18 03/08/18 03/09/18 20:01 23:33 05:10 WBC RBC Hgb Hct MCV MCH MCHC RDW Plt Count MPV Gran % Lymph % (Auto) [place] % (Auto) Eos % (Auto) Baso % (Auto) Gran # Lymph # (Auto) [place] # (Auto) Eos # (Auto) Baso # (Auto) pCO2 51 H pO2 59.0 L HCO3 33.9 H ABG pH 7.43 ABG Total CO2 35.5 H ABG O2 Saturation 95.9 ABG O2 Content 11.4 L ABG Base Excess 8.5 H ABG Hemoglobin 8.6 L ABG Carboxyhemoglobin 1.8 H POC ABG HHb (Measured) 4.0 ABG Methemoglobin 0.4 ABG O2 Capacity 11.9 L Hgb O2 Saturation 93.8 L FiO2 50.0 Sodium Potassium Chloride Carbon Dioxide Anion Gap BUN Creatinine Est GFR ( Amer) Est GFR (Non-Af Amer) POC Glucose (mg/dL) 180 H Random Glucose Calcium Phosphorus Magnesium Total Bilirubin AST ALT Alkaline Phosphatase Total Protein Albumin Globulin Albumin/Globulin Ratio Ur L.pneumophila Ag Negative 03/09/18 03/09/18 03/09/18 06:00 06:00 06:00 WBC 5.5 RBC 3.31 L Hgb 8.9 L Hct 33.0 L MCV 99.7 MCH 26.9 MCHC 27.0 L RDW 16.7 H Plt Count 287 MPV 10.6 Gran % 87.8 H Lymph % (Auto) 9.1 L [place] % (Auto) 3.1 Eos % (Auto) 0.0 L Baso % (Auto) 0.0 Gran # 4.84 Lymph # (Auto) 0.5 L [place] # (Auto) 0.2 Eos # (Auto) 0.0 Baso # (Auto) 0.00 pCO2 pO2 HCO3 ABG pH ABG Total CO2 ABG O2 Saturation ABG O2 Content ABG Base Excess ABG Hemoglobin ABG Carboxyhemoglobin POC ABG HHb (Measured) ABG Methemoglobin ABG O2 Capacity Hgb O2 Saturation FiO2 Sodium 151 H Potassium 4.6 Chloride 108 H Carbon Dioxide 35 H Anion Gap 13 BUN 42 H Creatinine 2.6 H Est GFR ( Amer) 23 Est GFR (Non-Af Amer) 19 POC Glucose (mg/dL) 200 H Random Glucose 199 H Calcium 8.6 Phosphorus 2.6 Magnesium 1.7 Total Bilirubin 0.4 AST 23 ALT 24 Alkaline Phosphatase 76 Total Protein 6.7 Albumin 3.5 Globulin 3.3 Albumin/Globulin Ratio 1.1 Ur L.pneumophila Ag 03/09/18 03/09/18 11:39 16:06 WBC RBC Hgb Hct MCV MCH MCHC RDW Plt Count MPV Gran % Lymph % (Auto) [place] % (Auto) Eos % (Auto) Baso % (Auto) Gran # Lymph # (Auto) [place] # (Auto) Eos # (Auto) Baso # (Auto) pCO2 pO2 HCO3 ABG pH ABG Total CO2 ABG O2 Saturation ABG O2 Content ABG Base Excess ABG Hemoglobin ABG Carboxyhemoglobin POC ABG HHb (Measured) ABG Methemoglobin ABG O2 Capacity Hgb O2 Saturation FiO2 Sodium Potassium Chloride Carbon Dioxide Anion Gap BUN Creatinine Est GFR ( Amer) Est GFR (Non-Af Amer) POC Glucose (mg/dL) 213 H 204 H Random Glucose Calcium Phosphorus Magnesium Total Bilirubin AST ALT Alkaline Phosphatase Total Protein Albumin Globulin Albumin/Globulin Ratio Ur L.pneumophila Ag Assessment & Plan - Assessment and Plan (Free Text) Plan: Infectious diseases Attending Physician Attestation Patient seen and examined, discussed with center medical director. I have reviewed the patient's history of present illness, past medical, social, personal and family histories, pertinent physical exam findings, course so far in this hospital admission, pertinent laboratory and imaging results. I agree with the above findings, assessment and plan. In addition, we have started a dose of IV Vancomycin as well as Cefepime and doxycycline for SIRS probably from right sided massive pleural effusion, consider malignancy, R/O pneumonia. Follow up blood cx. PCT is low, making pneumonia as the etiology of the pleural effusion. Recommend thoracentesis and pleural fluid analysis and cultures.
--- NOTE | 2018-03-09 09:08 | CARD ---
APPROVED REPORT Date of service: 03/08/2018 EKG Measurement Heart [id number] ID [id number] <Conclusion> Sinus tachycardia with occasional premature ventricular complex Artifact V 5,6
--- NOTE | 2018-03-09 09:20 | RAD ---
Date of service: 03/09/2018 HISTORY: intubated COMPARISON: 03/08/2018 FINDINGS: LUNGS: The previous study showed complete atelectasis of the right lung with mediastinal shift. The current study shows much improved aeration of the right lung. There is a minimal residual infiltrate at the right lung base. Endotracheal tube remains in satisfactory position PLEURA: No significant pleural effusion identified, no pneumothorax apparent. CARDIOVASCULAR: No aortic atherosclerotic calcification present. Normal cardiac size. No pulmonary vascular congestion. OSSEOUS STRUCTURES: No significant abnormalities. VISUALIZED UPPER ABDOMEN: Normal. OTHER FINDINGS: None. IMPRESSION: The previous study showed complete atelectasis of the right lung with mediastinal shift. The current study shows much improved aeration of the right lung. There is a minimal residual infiltrate at the right lung base. Endotracheal tube remains in satisfactory position
[2018-03-09] MEDS ORDERED: Vancomycin 1gm in NS 250ml 1 GM/250 ML BAG IVPB SCH (10:00)
[2018-03-09] MEDS: Cefepime 1gm in NS 100ml 1 GM/100 ML BAG IVPB SCH ×2 (10:09→22:50)
[2018-03-09] MEDS ORDERED: Propofol 10 mg/ml 500 MG/50 ML VIAL IV PRN (11:55)
[2018-03-09] MEDS ORDERED: Propofol 10 mg/ml 1,000 MG/100 ML VIAL IV PRN (12:18)
--- NOTE | 2018-03-09 13:28 | PN ---
PULMONARY PROGRESS NOTE DATE: 03/09/2018 SUBJECTIVE: The patient is lying in bed, intubated, awake. No acute distress. No hemoptysis, hematosis, hematuria, leg swelling or diarrhea reported. OBJECTIVE: GENERAL: No acute distress. VITAL SIGNS: Blood pressure 122/57, pulse 80, temperature 100, and oxygen saturation 96%. HEENT: Moist mucous membranes, intubated. NECK: Supple. No JVD. RESPIRATORY: Decreased breath sounds on right base. CARDIOVASCULAR: S1 and S2, audible. ABDOMEN: Soft and nontender. No distention. No organomegaly. EXTREMITIES: No bilateral lower extremity edema. NEUROLOGIC: Awake. MEDICATIONS: Reviewed. Aspirin 81 mg daily, Lipitor 10 mg daily, cefepime 1 g every 12 hours, doxycycline 100 mg every 12 hours, fentanyl 1000 mcg at 2 mL per hour at 24 hours, heparin 5000 units subcutaneously every 8 hours, Humulin R sliding scale, Solu-Medrol 40 mg every 8 hours, Protonix 40 mg IV push daily, propofol 1000 mg every 24 hours p.r.n. LABORATORY DATA: Reviewed. WBC 5.5, RBC 3.31, hemoglobin 8.9, hematocrit 33, and platelets 287. PCO2 51, PO2 59, HCO3 33.9. ABG, pH of 7.43. Sodium 151, potassium 4.6, chloride 108, carbon dioxide 35, anion gap 13, BUN 42, creatinine 2.6. GFR 19. POC glucose 200, random glucose 199. Calcium 8.6, phosphorus 2.6, magnesium 1.7, total bilirubin 0.4, AST 23, ALT 24, alkaline phosphatase 76. Total protein 6.7, albumin 3.5, globulin 3.3, albumin globulin ratio 1.1. Procalcitonin 0.11, proBNP 2900. DIAGNOSTIC DATA: Chest x-ray shows the previous study shows complete atelectasis of the right lung with mediastinal shift. Current study shows much improved aeration of the right lung, there is a minimal visitor infiltrate at the right lung base. Endotracheal tube remains in satisfactory position. IMPRESSION AND PLAN: Respiratory failure on ventilator, chronic obstructive lung disease, history of breast cancer, anemia, diabetes, recurrent urinary tract infection, history of noncompliance, active smoker. We cannot rule out primary metastatic disease to right lung. A CT of the chest to evaluate right lung pending to be done. The patient may need ultrasound guided thoracentesis. Continue weaning ventilator. Continue antibiotics, steroids, need to monitor, H&H closely. We will get procalcitonin level in the morning, ABG, chest x-ray, and labs. Critical care time spent more than 35 minutes. Case discussed with residents. This patient was seen and examined with Dr. Rucker. Discussed assessment and plan as described above. Thank you for this consult, we will follow with you. Didier Prudelukasz, [employer] Lisa Rucker MD
[2018-03-09] MEDS: Insulin Reg-LOW-Coverage SC SCH ×2 (16:11→22:10)
--- NOTE | 2018-03-09 17:53 | CP.PCM.PN ---
<Lester Oseguera - Last Filed: 03/09/18 19:07> Subjective - Date & Time of Evaluation Date of Evaluation: 03/09/18 Time of Evaluation: 17:50 - Subjective Subjective: Lester Oseguera, PGY-1 Progress Note for ICU Patient was weaned off ventilation support this afternoon and was successfully extubated without issue. Patient was awake alert and oriented x3. Patient refused to speak with staff or nurses regarding her resuscitation and intubation status. Previous record of DNR was noted from previous admission. Patient did not confirm aforementioned status. Patient's children were unable to provide information and stated they did not have power of trade promotion analyst over their mother. At this point in time, patient remains a full code status. Patient seen and case reviewed with Dr. Khan. Objective - Vital Signs/Intake and Output Vital Signs (last 24 hours): Temp Pulse Resp BP Pulse Ox 99.1 F 96 H 17 153/71 H 93 L 03/09/18 16:40 03/09/18 16:40 03/09/18 16:40 03/09/18 16:30 03/09/18 16:40 Intake and Output: 03/09/18 03/09/18 06:59 18:59 Intake Total 50 272 Balance 50 272 - Medications Medications: Current Medications Albuterol/Ipratropium (Duoneb 3 Mg/0.5 Mg (3 Ml) Ud) 3 ml IH [id number] PRN PRN Reason: Shortness of Breath Arformoterol Tartrate (Brovana) 15 mcg IH [id number] [facility] Aspirin (Aspirin Chewable) 81 mg PO DAILY [facility] Last Admin: 03/09/18 10:06 Dose: Not Given Atorvastatin Calcium (Lipitor) 10 mg PO DAILY [facility] Last Admin: 03/09/18 10:07 Dose: Not Given Budesonide (Pulmicort Respules) 0.5 mg IH [id number] [facility] Heparin Sodium (Porcine) (Heparin) 5,000 units SC Q8H [facility]; Protocol Last Admin: 03/09/18 16:39 Dose: 5,000 units Doxycycline Hyclate 100 mg/ (Sodium Chloride) 100 mls @ 100 mls/hr IVPB Q12 [facility]; Protocol Last Admin: 03/09/18 10:08 Dose: 100 mls/hr Fentanyl Citrate (Fentanyl Citrate/Sodium Chloride 1 Mg/100 Ml) 1,000 mcg in 10 0 mls @ 2 mls/hr IV .Q24H PRN; Protocol PRN Reason: TITRATE PER MD ORDER Last Titration: 03/09/18 15:05 Dose: 0 mcg/hr, 0 mls/hr Cefepime HCl (Maxipime 1gm) 1 gm in 100 mls @ 25 mls/hr IVPB Q12 [facility]; Protocol Last Admin: 03/09/18 10:09 Dose: 25 mls/hr Propofol (Diprivan) 1,000 mg in 100 mls @ 2.177 mls/hr IV .Q24H PRN; Protocol PRN Reason: TITRATE PER MD ORDER Last Titration: 03/09/18 15:05 Dose: 0 mcg/kg/min, 0 mls/hr Insulin Human Regular (Humulin R Low) 0 units SC ACHS [facility]; Protocol Last Admin: 03/09/18 16:11 Dose: Not Given Methylprednisolone (Solu-Medrol) 40 mg IVP Q8H [facility] Last Admin: 03/09/18 16:39 Dose: 40 mg Pantoprazole Sodium (Protonix Inj) 40 mg IVP DAILY [facility] Last Admin: 03/09/18 10:07 Dose: 40 mg - Labs Labs: 03/09/18 06:00 03/09/18 06:00 PT 12.5 SECONDS (9.4-12.5) 03/08/18 13:30 INR 1.09 03/08/18 13:30 APTT 38.8 Seconds (25.1-36.5) H 03/08/18 13:30 <Dusty Khan - Last Filed: 03/12/18 06:59> Objective - Vital Signs/Intake and Output Vital Signs (last 24 hours): Temp Pulse Resp BP Pulse Ox 98 F 75 20 144/53 L 96 03/12/18 00:01 03/12/18 06:00 03/12/18 06:00 03/12/18 06:00 03/12/18 00:01 Intake and Output: 03/11/18 03/12/18 18:59 06:59 Intake Total 1420 400 Output Total 850 500 Balance 570 -100 - Medications Medications: Current Medications Acetylcysteine (Acetylcysteine 20%) 3 ml PO BID [facility] Last Admin: 03/11/18 17:12 Dose: 3 ml Albuterol/Ipratropium (Duoneb 3 Mg/0.5 Mg (3 Ml) Ud) 3 ml IH [id number] PRN PRN Reason: Shortness of Breath Last Admin: 03/12/18 05:08 Dose: 3 ml Alprazolam (Xanax) 0.5 mg PO TID PRN; Protocol PRN Reason: Anxiety Last Admin: 03/11/18 21:13 Dose: 0.5 mg Arformoterol Tartrate (Brovana) 15 mcg IH [id number] [facility] Last Admin: 03/11/18 19:46 Dose: 15 mcg Aspirin (Aspirin Chewable) 81 mg PO DAILY [facility] Last Admin: 03/11/18 09:14 Dose: 81 mg Atorvastatin Calcium (Lipitor) 10 mg PO DAILY [facility] Last Admin: 03/11/18 09:14 Dose: 10 mg Budesonide (Pulmicort Respules) 0.5 mg IH [id number] [facility] Last Admin: 03/11/18 19:46 Dose: 0.5 mg Doxycycline Hyclate (Doryx) 100 mg PO Q12 [facility]; Protocol Stop: 03/16/18 22:01 Last Admin: 03/11/18 21:12 Dose: 100 mg Ergocalciferol (Drisdol 50,000 Intl Units Cap) 1 cap PO Q7D [facility] Ferrous Gluconate (Fergon) 324 mg PO TID [facility] Last Admin: 03/11/18 17:13 Dose: 324 mg Furosemide (Lasix) 40 mg PO DAILY [facility] Heparin Sodium (Porcine) (Heparin) 5,000 units SC 0600,1400,2200 [facility]; Protocol Last Admin: 03/12/18 05:31 Dose: 5,000 units Cefepime HCl (Maxipime 1gm) 1 gm in 100 mls @ 25 mls/hr IVPB Q12 [facility]; Protocol Last Admin: 03/11/18 21:14 Dose: 25 mls/hr Insulin Human Lispro (Humalog Med) 0 units SC ACHS [facility]; Protocol Last Admin: 03/11/18 23:11 Dose: 2 units Insulin Human Lispro (Humalog) 8 units SC AC [facility] Last Admin: 03/11/18 17:14 Dose: 8 units Methylprednisolone (Solu-Medrol) 40 mg IVP 0600,1400,2200 [facility] Last Admin: 03/12/18 05:28 Dose: 40 mg Montelukast Sodium (Singulair) 10 mg PO HS [facility] Last Admin: 03/11/18 21:12 Dose: 10 mg Oxycodone/Acetaminophen (Percocet 5/325 Mg Tab) 1 tab PO Q8H PRN PRN Reason: Pain, moderate (4-7) Stop: 03/13/18 16:38 Last Admin: 03/11/18 17:13 Dose: 1 tab Pantoprazole Sodium (Protonix Inj) 40 mg IVP DAILY [facility] Last Admin: 03/11/18 09:10 Dose: 40 mg Vitamin B Complex/Vit C/Folic Acid (Nephro-Enrrique) 1 tab PO 0800 [facility] - Labs Labs: 03/11/18 05:30 03/11/18 05:30 PT 12.5 SECONDS (9.4-12.5) 03/08/18 13:30 INR 1.09 03/08/18 13:30 APTT 38.8 Seconds (25.1-36.5) H 03/08/18 13:30
--- NOTE | 2018-03-09 18:44 | US ---
Date of service: 03/09/2018 PROCEDURE: Ultrasound right chest HISTORY: Respiratory failure. Evaluate right pleural effusion for thoracentesis. COMPARISON: TECHNIQUE: The patient was placed in a left decubitus position in the bed. Sonography of the right chest was performed from a lateral and posterior approach FINDINGS: There is a small right pleural effusion visualized under 250 cc. Is not amenable to diagnostic or therapeutic thoracentesis. IMPRESSION: Small right pleural effusion. Not large enough for a diagnostic or therapeutic thoracentesis.
[2018-03-09] MEDS: Budesonide 0.5 mg/2 ml Inhal Susp UD IH SCH (19:18)
[2018-03-09] MEDS: Arformoterol 15 mcg/2 ml Inh Sol IH SCH (19:18)
[2018-03-10] MEDS: MethylPREDNISolone 40 mg Vial IVP SCH ×4 (00:50→23:02)
[2018-03-10] MEDS: Albuterol-Ipratrop 3 mg / 0.5 (3 ml) UD IH PRN ×2 (01:43→12:38)
[2018-03-10 05:42] LABS: ARTERIAL BLOOD GAS HCO3 33.2 mmol/L (21-28); ARTERIAL BLOOD GAS HEMOGLOBIN 8.7 g/dL (11.7-17.4); ARTERIAL BLOOD GAS O2 CONTENT 11.3 ML/dl (15-23); ARTERIAL BLOOD GAS O2 SAT 94.2 % (95-98); ARTERIAL BLOOD GAS PCO2 50 mm/Hg (35-45); ARTERIAL BLOOD GAS PH 7.43 (7.35-7.45); ARTERIAL BLOOD GAS TCO2 34.7 mmol.L (22-28)
[2018-03-10 06:29] LABS: GRAN # 4.68 (1.4-6.5); GRAN % 79.3 % (50.0-68.0); HEMOGLOBIN 8.2 g/dL (12.0-16.0); LYMPH # 0.8 (1.2-3.4); LYMPH % 12.7 % (22.0-35.0); MEAN CELL VOLUME 94.7 fl (80.0-105.0); MEAN CORPUSCULAR HEMOGLOBIN 27.3 pg (25.0-35.0); MEAN CORPUSCULAR HGB CONC 28.9 g/dl (31.0-37.0); MEAN PLATELET VOLUME 10.2 fl (7.0-11.0); MONO # 0.5 (0.1-0.6); RED CELL DISTRIBUTION WIDTH 17.1 % (11.5-14.5); WHITE BLOOD COUNT 5.9 10^3/uL (4.5-11.0)
[2018-03-10 06:37] LABS: ALB/GLOB RATIO 1.1 (1.1-1.8); ALBUMIN 3.3 g/dL (3.0-4.8); CALCIUM 7.9 mg/dL (8.4-10.5)
[2018-03-10] MEDS: Arformoterol 15 mcg/2 ml Inh Sol IH SCH ×2 (07:21→19:56)
[2018-03-10] MEDS: Budesonide 0.5 mg/2 ml Inhal Susp UD IH SCH ×2 (07:21→19:56)
[2018-03-10] MEDS: Insulin Reg-LOW-Coverage SC SCH ×4 (08:00→22:44)
--- NOTE | 2018-03-10 08:45 | CARD ---
APPROVED REPORT Date of service: 03/09/2018 EXAM: Two-dimensional and M-mode echocardiogram with Doppler and color Doppler. Other Information Quality : FairRhythm : INDICATION Congestive Heart Failure 2D DIMENSIONS Left Atrium (2D)4.0 (1.6-4.0cm)IVSd1.2 (0.7-1.1cm) LVDd4.1 (3.9-5.9cm)PWd1.2 (0.7-1.1cm) LVDs2.7 (2.5-4.0cm)FS (%) 34.4 % LVEF (%)63.0 (>50%) M-Mode DIMENSIONS Aortic Root2.70 (2.2-3.7cm)Aortic Cusp Exc.1.60 (1.5-2.0cm) Aortic Valve AoV Peak Wohkbmsu590.0cm/sAoV VTI45.2cm Mitral Valve MV E Tuwstzbr825.0cm/sMV A Dcwrlyex74.9cm/sE/A ratio1.4 TDI E/Lateral E'0.0E/Medial E'0.0 Pulmonary Valve PV Peak Ijvatgdf314.0cm/sPV Peak Grad.4mmHg Tricuspid Valve TR Peak Mmmgabyo769vr/sRAP BRDKOGKZ29emDnEH Peak Gr.24mmHg HFCR50wkZf LEFT VENTRICLE The left ventricle is normal size. There is normal left ventricular wall thickness. The left ventricular function is normal. The left ventricular ejection fraction is within the normal range. There is normal LV segmental wall motion. RIGHT VENTRICLE The right ventricle is normal size. ATRIA The left atrium size is normal. The right atrium size is normal. The interatrial septum is intact with no evidence for an atrial septal defect. AORTIC VALVE The aortic valve is mildly sclerotic. MITRAL VALVE The mitral valve is normal in structure. TRICUSPID VALVE The tricuspid valve is normal in structure. There is mild tricuspid regurgitation. PULMONIC VALVE The pulmonic valve is not well visualized. GREAT VESSELS The aortic root is normal in size. PERICARDIAL EFFUSION There is no pericardial effusion. <Conclusion> The left ventricle is normal size. There is normal left ventricular wall thickness. The left ventricular function is normal.
[2018-03-10] MEDS: Cefepime 1gm in NS 100ml 1 GM/100 ML BAG IVPB SCH ×2 (10:15→22:03)
--- NOTE | 2018-03-10 12:14 | RAD ---
Date of service: 03/10/2018 HISTORY: Intubated. COMPARISON: March 09 2018. FINDINGS: LUNGS: Stable infiltrate right lung PLEURA: Stable right pleural effusion CARDIOVASCULAR: No atherosclerotic calcification present No significant interval change compared to the prior examination(s). Venous access catheter in stable, satisfactory position. OSSEOUS STRUCTURES: No significant abnormalities. VISUALIZED UPPER ABDOMEN: Normal. OTHER FINDINGS: Removal of support apparatus since the prior study: Endotracheal tube. IMPRESSION: No significant interval change compared to the prior examination(s).
--- NOTE | 2018-03-10 18:13 | PN ---
DATE: 03/10/2018 SUBJECTIVE: The patient seen in the ICU this morning in 128, bed 3. The patient had uneventful night with low grade fevers. No chest pain. Mild shortness of breath. No abdominal pain. PHYSICAL EXAMINATION: VITAL SIGNS: On exam, temperature 99.7, heart rate of 98, respiratory rate of 18 with blood pressure of 178/60. HEENT: Examination of HEENT is unremarkable. NECK: Supple. LUNGS: Decreased breath sounds. HEART: Normal S1, S2. ABDOMEN: Soft, nontender. No rebound or guarding. LABORATORY DATA: Laboratory examination reveals a white count of 5.9, hemoglobin of 8, platelets of 255. Chemistries reveal BUN is 56, creatinine of 2.6. On admission, the patient's creatinine was 1.8. It had been in the range of 1.8-2.3 in the past. Urinalysis is noted with 5-10 WBC's, many bacteria, negative leukocyte esterase, negative nitrates, there is proteinuria with pH of 6 and specific gravity of 1.025. Toxicology is reviewed, serology, urine legionella antigen is negative. Microbiology reveals the patient has Enterobacter aerogenes in the urine which is sensitive to ertapenem, gentamicin, Cipro, cefepime, and Bactrim and now no meropenem was tested. The blood cultures are no growth. Review of orders reveals the patient to be on doxycycline, cefepime and Solu-Medrol. The patient had a chest x-ray from this morning, stable infiltrate in the right lung. Also had a procalcitonin which was negative at 0.11. ASSESSMENT AND PLAN: A 57-year-old female who is known to me from multiple admissions in the past, who is a long-time active smoker with end-stage chronic obstructive lung disease, breast cancer, diabetes, renal disease, hypertension and esophagitis in the past, now is admitted, who I had seen in the ICU. Was admitted with change of mental status with hypercapnic respiratory failure. The patient required intubation, now extubated with severe sepsis, healthcare-associated pneumonia and on day #2 of cefepime, doxycycline with Enterobacter aerogenes in the urine and would complete 4-7 days of antibiotics. Follow closely with you. Prasanth Malcolm MD [facility] # [id number]
[2018-03-10] MEDS: Oxycodone/Acetaminophen 5/325 mg Tab PO PRN (18:42)
--- NOTE | 2018-03-10 19:06 | PN ---
DATE: 03/10/2018 PULMONARY PROGRESS NOTE REFERRING PHYSICIAN: Sloan Sosa MD SUBJECTIVE: The patient is lying in bed, nasal cannula in place, in no acute distress. Family at bedside. No headache, rhinitis, chest pain, abdominal pain, nausea, vomiting, diarrhea, leg pain, or leg swelling reported. The patient reports that she does have shortness of breath at times and has cough. OBJECTIVE: VITAL SIGNS: Blood pressure 159/80, pulse 81, temperature 99.3, oxygen saturation 94%. GENERAL: No acute distress. HEENT: Moist mucous membranes. NECK: Supple. No JVD. RESPIRATORY: Decreased breath sounds on the right. Positive rhonchi. CARDIOVASCULAR: S1, S2 audible. ABDOMEN: Soft, nontender. No distention. No organomegaly. EXTREMITIES: No bilateral lower extremity edema. NEUROLOGIC: Awake, alert, verbal, follows simple commands. MEDICATIONS: Reviewed. DuoNeb 3 mL inhalation every 6 hours p.r.n., Xanax 0.5 mg three times a day p.r.n., Brovana 15 mcg inhalation every 12 hours, aspirin 81 mg p.o. daily, Lipitor 10 mg p.o. daily, Pulmicort 0.5 mg inhalation every 12 hours, cefepime 1 g every 12 hours, doxycycline 100 mg every 12 hours, heparin 5000 units subcu every 8 hours, Humulin R before meals and at bedtime, Solu-Medrol 40 mg IV push every 8 hours, Percocet 1 tab every 8 hours p.r.n. for moderate pain, Protonix 40 mg IV push daily. LABORATORY DATA: WBC 5.9, RBC 3, hemoglobin 8.2, hematocrit 28.4, platelets 255. PCO2 50, PO2 58, HCO3 33. ABG, pH 7.43. Sodium 147, potassium 4, chloride 106, carbon dioxide 33, anion gap 11, BUN 56, creatinine 2.6. GFR 19. POC glucose 145, random glucose 160. Calcium 7.9, total bilirubin 0.3, AST 29, ALT 21, alkaline phosphatase 67, total protein 6.3, albumin 3.3, globulin 3, albumin/globulin ratio 1.1. Procalcitonin 0.14. Stool for C. diff final, negative. Urine final, Enterobacter aerogenes. DIAGNOSTIC DATA: Chest x-ray shows stable infiltrate right lung, stable right pleural effusion. Echocardiogram shows ejection fraction 63%, RVSP 34, left ventricle is normal size, normal left ventricular wall thickness, left ventricular function is normal. Thoracentesis ultrasound shows small right pleural effusion, not large enough for diagnostic or therapeutic thoracentesis. IMPRESSION AND PLAN: Respiratory failure, the patient was on ____ and intubated, extubated at this time. Chronic obstructive lung disease, pleural effusion, history of breast cancer, anemia, diabetes, recurrent urinary tract infection, history of noncompliance, active smoker. Continue antibiotics, steroids, inhaled bronchodilators. Gastric prophylaxis, deep venous thrombosis prophylaxis. Discussed with the patient in detail continuous positive airway pressure machine. The patient states she does not want continuous positive airway pressure machine, understands cardiopulmonary risk associated with sleep apnea. This patient was seen and examined with Dr. Rucker. Discussed assessment and plan as described above. Thank you for this consult. We will follow with you. Didier Dennis APN Lisa Rucker MD
--- NOTE | 2018-03-10 20:14 | CON ---
DATE OF CONSULTATION: 03/10/2018 HISTORY OF PRESENT ILLNESS: The patient is a 57-year-old white female with no formal psychiatric history except for anxiety, suicide attempts, no psychiatric admissions or current outpatient psychiatric followups, who is being treated medically for pleural effusion and pneumonia in the ICU. Psychiatry was consulted for further evaluation of depression. Please note that Psychiatry also followed up with the patient for a similar consultation request on 02/08/2018 after an unintentional overdose of Xanax. The patient was not very happy to see me. She is unaware that psychiatric evaluation was requested, but she was reluctantly cooperative with questioning. She was noted to swear at many times, however does not appear to be in lack of control, but it is more of a personality trait. The patient at that time denied seemingly being depressed. She denied having any suicidal thoughts or hallucinations and responded to consistent and relevant questioning and she felt that her insurance were bunch of "fucking idiots." She requests a consultation for depression. The patient deferred any further psychiatric medication on this day and this provided respected her wish. I met with the patient at bedside today. She is quite lethargic and she cannot participate in a productive interview. She does not know if she is in the hospital or the current circumstances and her responses are inconsistent and she appears to be either too sedated or delirious to respond with any credibility. However, she does indicate that she is not depressed or suicidal. Again, due to the patient's mental status changes, this provider did not feel comfortable with ability of her responses and will re-attempt to interview the patient tomorrow on 03/11/2018. Currently, her insight and judgment are considered to be poor due to delirium status. RELEVANT PSYCHIATRIC MEDICATIONS: The patient is not on any relevant psychiatric medications. PSYCHIATRIC HISTORY: She denies any formal psychiatric history except for 02/08/2018 consultation including suicide attempts, inpatient and outpatient followup. She had been on Xanax for anxiety. SOCIAL HISTORY: The patient reports that she is . She lives with her son. She has a son and a daughter, they are adults. Daughter just moved out about a month ago. IMPRESSION: Delirium at this time, rule out depression, rule out anxiety, rule out mood disorder secondary to adjustment issues regarding recent hospitalizations. RECOMMENDATIONS: This provider does not have any recommendations for change in her treatments due to the patient's inability to adequately participate in the interview. I will re-attempt in the a.m. on 03/11/2018 and hopefully the patient will be more alert and engaged at that time. At this time, I cannot psychiatrically clear her for discharge. Pamela Schulte MD
[2018-03-11] MEDS ORDERED: Insulin Regular 1 UNITS/0.01 ML ML SC ONE (02:12)
[2018-03-11] MEDS: Albuterol-Ipratrop 3 mg / 0.5 (3 ml) UD IH PRN (02:53)
[2018-03-11] MEDS: MethylPREDNISolone 40 mg Vial IVP SCH ×3 (05:56→21:12)
[2018-03-11 06:15] LABS: GRAN # 3.22 (1.4-6.5); HEMOGLOBIN 8.4 g/dL (12.0-16.0); LYMPH # 0.5 (1.2-3.4); LYMPH % 13.1 % (22.0-35.0); MEAN CELL VOLUME 94.3 fl (80.0-105.0); MEAN CORPUSCULAR HEMOGLOBIN 26.6 pg (25.0-35.0); MEAN CORPUSCULAR HGB CONC 28.2 g/dl (31.0-37.0); MONO # 0.1 (0.1-0.6); MONO % 2.9 % (1.0-6.0); RBC 3.16 10^6/uL (3.5-6.1); RED CELL DISTRIBUTION WIDTH 17.6 % (11.5-14.5); WHITE BLOOD COUNT 3.8 10^3/uL (4.5-11.0)
[2018-03-11 06:41] LABS: ALB/GLOB RATIO 1.2 (1.1-1.8); ALBUMIN 3.6 g/dL (3.0-4.8); CALCIUM 7.8 mg/dL (8.4-10.5)
[2018-03-11] MEDS: Arformoterol 15 mcg/2 ml Inh Sol IH SCH ×2 (07:29→19:46)
[2018-03-11] MEDS: Budesonide 0.5 mg/2 ml Inhal Susp UD IH SCH ×2 (07:29→19:46)
[2018-03-11] MEDS: Insulin Reg-LOW-Coverage SC SCH ×2 (08:03→18:09)
[2018-03-11] MEDS: Cefepime 1gm in NS 100ml 1 GM/100 ML BAG IVPB SCH ×2 (09:14→21:14)
[2018-03-11] MEDS: Oxycodone/Acetaminophen 5/325 mg Tab PO PRN ×2 (09:58→17:13)
--- NOTE | 2018-03-11 10:45 | RAD ---
Date of service: 03/11/2018 HISTORY: intubated COMPARISON: March 10, 2018. FINDINGS: LUNGS: Stable right lower lobe infiltrative changes. PLEURA: Stable right pleural effusion. CARDIOVASCULAR: No atherosclerotic calcification present Venous access catheter in stable, satisfactory position. OSSEOUS STRUCTURES: No significant abnormalities. VISUALIZED UPPER ABDOMEN: Normal. OTHER FINDINGS: None. IMPRESSION: No significant interval change compared to the prior examination(s).
[2018-03-11] MEDS: Insulin Lispro (humaLOG) MEDIUM Coverage SC SCH ×3 (11:43→23:11)
[2018-03-11] MEDS: Insulin Lispro 1 UNITS/0.01 ML SC SCH ×2 (11:43→17:14)
--- NOTE | 2018-03-11 11:48 | CON ---
DATE: 03/11/2018 HISTORY OF PRESENT ILLNESS: The patient is a 57-year-old female with no psychiatric history per consultation on 02/08/2018 for depression. At that time, this provider evaluated the patient who was irritable about requesting consult, but cooperative questioning. In general at that time, she denies having any question or invasive psychiatric complaints and deferred on the further psychiatric medical management. I met with the patient in the ICU yesterday; however, it was very difficult for her to cooperative with questioning due to delirium. The patient was quite disoriented and lethargic, unable to participate in a productive interview. At this time, I visited with her again today this morning and she appears to be a little bit more oriented. She is aware that she is in the hospital and that it is 03/11/2018. She continues to deny having any psychiatric symptoms including depression and suicidal thought; however, many of her other responses are kind of vague. She is worried, I asked her if she consumes too many medications which is possibly causing her presentation and the patient in response "I don't know." I asked her if she is taking any Psychiatry can do, but how to if there are any symptoms are concerned. She again is very vague and tired and preoccupied and responds with "I don't know." During the course of my questioning, her focus was inconsistent, responses were inconsistent, there was some delay in her processing and in her responses as well. She continues to present as unreliable historian due to delirium. Of note, the patient asked me multiple times why are you here, why are you asking these question, even though they were answered by this provider both yesterday and today multiple times. Vital signs and labs were reviewed. PSYCHIATRIC MEDICATIONS: Include Xanax 3.5 mg p.o. t.i.d. p.r.n. IMPRESSION: Mood disorder not otherwise specified, anxiety disorder not otherwise specified, rule out adjustment disorder with depression and anxiety, rule out major depressive disorder, and the patient's delirium. RECOMMENDATIONS: Psychiatric will continue to follow with the patient. Next followup will be on 03/12/2018. This provider cannot psychiatrically clear at this time. Responds that she is a poor historian. Responses are inconsistent and etiology of her presentation has not been determined with any credibility as of yet. We would continue the Xanax for now on the unit; however, if this medication is at all contributed to her presentation at this time, we should consider discontinuing it in favor of less dangerous medication. I will not discontinue right now because this is completely uncertain, because Xanax effect in contribution to her presentation are completely uncertain. Pamela Schulte MD
--- NOTE | 2018-03-11 12:05 | CT ---
Date of service: 03/11/2018 PROCEDURE: CT Chest without contrast HISTORY: Pleural effusions and pneumonia. Relevant medical history: History of breast cancer COMPARISON: 07/28/2017. CT thorax 11/23/2017 single-view chest. March 11, 2018 single-view chest. TECHNIQUE: Contiguous axial images were obtained through the chest without intravenous contrast enhancement. Sagittal and coronal reconstructions were performed. Radiation dose: Total exam DLP = 634.22 mGy-cm. This CT exam was performed using one or more of the following dose reduction techniques: Automated exposure control, adjustment of the mA and/or kV according to patient size, and/or use of iterative reconstruction technique. FINDINGS: LUNGS: Volume loss in the right janay thorax. Consolidative changes primarily affecting right lower lobe. No discrete endobronchial abnormality identified although segments of the right lower lobe bronchus are narrowed. This may reflect mucous plugging. Additional consolidative changes/scarring noted in the right upper lobe. These however are stable. There is commensurate hyperinflation of an otherwise unremarkable left lung. MEDIASTINUM: Unremarkable thoracic aorta. No aneurysm. Normal sized heart. Main pulmonary artery unremarkable. No vascular congestion. Stable mediastinal lymph nodes compared to the prior CT Venous access catheter in stable, satisfactory position. No aortic atherosclerotic calcification. PLEURA: Partially loculated right pleural effusion. BONES: No fracture. No destructive lesion. UPPER ABDOMEN: Grossly unremarkable. OTHER FINDINGS: New chest wall masses at least 2 measuring 1.5 in 2.5 cm respectively. Given the history of left breast cancer these are worrisome for chest wall extension. IMPRESSION: Comparing a multiple serial studies there is progressive consolidative change, volume loss in the right hemithorax with attendant partially loculated subpulmonic effusion. Stable scarring in the right upper lobe. New left chest wall lymphadenopathy suspicious for tumor.
--- NOTE | 2018-03-11 12:15 | PN ---
DATE: 03/11/2018 SUBJECTIVE: Patient is in bed in no . OBJECTIVE: VITAL SIGNS: Temperature of 97, blood pressure is 150/50, respiratory rate of 18, heart rate of 82. HEENT: Unremarkable. NECK: Supple. LUNGS: Have decreased breath sounds. HEART: Normal S1, S2. ABDOMEN: Soft, nontender. LABORATORY EXAMINATION: Reveals Enterobacter aerogenes in the urine and sensitivity is reviewed. Review of orders reveals the patient to be on IV doxycycline and IV cefepime. ASSESSMENT AND PLAN: A 57-year-old female known to me from multiple admissions, long-time active smoker, end-stage chronic obstructive lung disease, breast cancer, diabetes, renal disease, hypertension, esophagitis, admitted with change in mental status with hypercapnic respiratory failure. According to the patient, now is extubated with severe sepsis with healthcare-associated pneumonia on doxy and cefepime day #3, would complete 4-7 days. We will change the doxycycline to p.o. and long-term prognosis quite poor for this patient. Prasanth Malcolm MD
--- NOTE | 2018-03-11 12:41 | CP.PCM.CON ---
History of Present Illness - History of Present Illness History of Present Illness: Nephrology Consultation Note: Assessment: Stable Acute Kidney Injury (N17.9) AMS, CO2 narcosis and acute on chronc respi acidosis with respi failure with renal compensation rt large pleural effusion with chest wall mass ? malignant (hx of breast CA) Diabetic chronic Kidney Disease (E11.22) Hypertensive Chronic Kidney Disease (I12.9) Chronic Kidney Disease (N18.3) Stage 3 with 1200 mg proteinuria and 400 mg albuminuria (R80.9) likely due to DM/HTN Anemia (D64.9) COPD/asthma, active smoker, breast cancer s/p surgery 2 years ago active smoker Plan No acute need for renal replacement therapy at this time. Hypertension control with meds as ordered. Maintain hemodynamics stable. Avoid hypotension. Patient not on ACEI/ARB due to recent DAHLIA Monitor Input/Output, daily weights and renal function with basic metabolic pane l low Na and low K diet consider heme/onc eval for malignancy. will defer use of [place] in view of her recent breast malignancy repeat renal sono in 6 months for cyst follow up started iron, MVI and weekly Vit D lasix 40 mg daily pulmonary, ID following Dose meds/antibiotics for reduced GFR. Avoid fleets enema/magnesium based laxatives. Avoid nephrotoxins/NSAIDs/ iodinated contrast (unless needed emergently) Glycemic control. pt need to stop smoking Further work up/management as per primary team Thanks for allowing me to participate in care of your patient. Will follow patient with you. Please call if any Qs. had d/w team Dr Marco Antonio Chatman Office: [phone] Chief Complaint; none Reason for consult: Acute Kidney Injury HPI: Pt is a 57 F with hx of diabetes Mellitus ( years), hypertension (years) COPD/asthma, active smoker, breast cancer s/p surgery 2 years ago but didn't complete treatment, anemia, CKD stage 3 with baseline cr 1.8 mg/dL initially admitted with AMS, CO2 narcosis and respi failure, rt large pleural effusion s/p thoracocentesis now seen for DAHLIA Denies OTC/herbal meds or NSAIDs No recent iodinated contrast exposure. No obvious episodes of low BP. ROS: Cardiovascular: No chest pain. Pulmonary: improved shortness of breath Gastrointestinal: denies abdominal pain No nausea. No vomiting. Genitourinary: No pain while urinating. Denies blood in urine. All other negative except as mentioned in HPI. pt is a poor historian and overall hx is limited from her Physical Examination: General Appearance: Comfortable, in no acute respiratory distress, co-operative . Vitals reviewed and noted as below Head; Atraumatic, normocephalic ENT: no ulcers no thrush. Tongue is midline. Oropharynx: no rash or ulcers. she is hard of hearing EYES: Pupils are equal, round and reactive to light accommodation. Eye muscles and extraocular movement intact. Sclera is anicteric. Neck; supple no lymphadenopathy, no thyromegaly or bruit Lungs: Normal respiratory rate/effort. Breath sounds reduced at base Heart: Normal rate. s1s2 normal. No rub or gallop. Extremities: 1+ edema. No varicose veins Neurological: Patient is alert, awake and oriented to person, place and time. No focal deficit. Strength bilateral appropriate and equal Skin: Warm and dry. Normal turgor. No rash. Palpitation: Normal elasticity for age Abdomen: Abdomen is soft. Bowel sounds +. There is no abdominal tenderness, no guarding/rigidity no organomegaly Psych: lack insight and normal affect/mood MSK: no joint tenderness or swelling. Digits and nails normal, no deformity : kidney or bladder not palpable Labs/imaging reviewed. Past medical history, past surgical history, family history, social history, allergy reviewed and noted as below Family hx: no hx of CKD. Rest non-contributory renal imaging: b/l cysts echo normal LVEF TSAt 26% ferritin 45 Serum FLC assay WNL ABDIRIZAK neg PTH 154 Vit D 17 Past Patient History - Infectious Disease Hx of Infectious Diseases: None - Tetanus Immunizations Tetanus Immunization: Unknown - Past Medical History & Family History Past Medical History?: Yes - Past Social History Smoking Status: Former Smoker - CARDIAC Hx Cardiac Disorders: Yes Hx Hypertension: Yes - PULMONARY Hx Respiratory Disorders: Yes Hx Chronic Obstructive Pulmonary Disease (COPD): Yes Hx Emphysema: Yes Hx Pneumonia: Yes - NEUROLOGICAL Hx Neurological Disorder: No - HEENT Hx HEENT Problems: No - RENAL Hx Chronic Kidney Disease: No - ENDOCRINE/METABOLIC Hx Endocrine Disorders: Yes Hx Diabetes Mellitus Type 2: Yes - HEMATOLOGICAL/ONCOLOGICAL Hx Blood Disorders: Yes (blood transfusion) Hx Cancer: Yes (left breast dx 06/2015) Hx Chemotherapy: Yes (2016 as per son) - INTEGUMENTARY Hx Dermatological Problems: No - MUSCULOSKELETAL/RHEUMATOLOGICAL Hx Falls: Yes - GASTROINTESTINAL Hx Gastrointestinal Disorders: No - GENITOURINARY/GYNECOLOGICAL Hx Genitourinary Disorders: No - PSYCHIATRIC Hx Psychophysiologic Disorder: Yes Hx Anxiety: Yes Hx Depression: Yes Hx Substance Use: No - SURGICAL HISTORY Hx Surgeries: Yes - ANESTHESIA Hx Anesthesia: Yes Hx Anesthesia Reactions: No Hx Malignant Hyperthermia: No Meds Allergies/Adverse Reactions: Allergies Allergy/AdvReac Type Severity Reaction Status Date / Time levofloxacin [From Levaquin] Allergy SHORTNESS Verified 11/23/17 02:24 OF BREATH;PARANOID nystatin Allergy SWELLING Verified 11/23/17 02:24 - Medications Medications: Current Medications Albuterol/Ipratropium (Duoneb 3 Mg/0.5 Mg (3 Ml) Ud) 3 ml IH [id number] PRN PRN Reason: Shortness of Breath Last Admin: 03/11/18 02:53 Dose: 3 ml Alprazolam (Xanax) 0.5 mg PO TID PRN; Protocol PRN Reason: Anxiety Last Admin: 03/11/18 05:57 Dose: 0.5 mg Arformoterol Tartrate (Brovana) 15 mcg IH [id number] [facility] Last Admin: 03/11/18 07:29 Dose: 15 mcg Aspirin (Aspirin Chewable) 81 mg PO DAILY [facility] Last Admin: 03/11/18 09:14 Dose: 81 mg Atorvastatin Calcium (Lipitor) 10 mg PO DAILY [facility] Last Admin: 03/11/18 09:14 Dose: 10 mg Budesonide (Pulmicort Respules) 0.5 mg IH [id number] [facility] Last Admin: 03/11/18 07:29 Dose: 0.5 mg Doxycycline Hyclate (Doryx) 100 mg PO Q12 [facility]; Protocol Stop: 03/16/18 22:01 Ergocalciferol (Drisdol 50,000 Intl Units Cap) 1 cap PO Q7D [facility] Ferrous Gluconate (Fergon) 324 mg PO TID [facility] Heparin Sodium (Porcine) (Heparin) 5,000 units SC 0600,1400,2200 [facility]; Protocol Last Admin: 03/11/18 05:56 Dose: 5,000 units Cefepime HCl (Maxipime 1gm) 1 gm in 100 mls @ 25 mls/hr IVPB Q12 [facility]; Protocol Last Admin: 03/11/18 09:14 Dose: 25 mls/hr Insulin Human Lispro (Humalog Med) 0 units SC ACHS [facility]; Protocol Last Admin: 03/11/18 11:43 Dose: 7 units Insulin Human Lispro (Humalog) 8 units SC AC [facility] Last Admin: 03/11/18 11:43 Dose: 8 units Methylprednisolone (Solu-Medrol) 40 mg IVP 0600,1400,2200 [facility] Last Admin: 03/11/18 05:56 Dose: 40 mg Oxycodone/Acetaminophen (Percocet 5/325 Mg Tab) 1 tab PO Q8H PRN PRN Reason: Pain, moderate (4-7) Stop: 03/13/18 16:38 Last Admin: 03/11/18 09:58 Dose: 1 tab Pantoprazole Sodium (Protonix Inj) 40 mg IVP DAILY [facility] Last Admin: 03/11/18 09:10 Dose: 40 mg Vitamin B Complex/Vit C/Folic Acid (Nephro-Enrrique) 1 tab PO 0800 [facility] Results - Vital Signs Recent Vital Signs: Last Vital Signs Temp 100.1 F H 03/11/18 12:00 Pulse 78 03/11/18 12:00 Resp 20 03/11/18 12:00 BP 159/55 H 03/11/18 12:00 Pulse Ox 96 03/11/18 06:00 - Labs Result Diagrams: 03/11/18 05:30 03/11/18 05:30 Labs: Laboratory Results - last 24 hr 03/10/18 03/10/18 03/10/18 05:30 17:13 21:18 WBC RBC Hgb Hct MCV MCH MCHC RDW Plt Count MPV Gran % Lymph % (Auto) Valley % (Auto) Eos % (Auto) Baso % (Auto) Gran # Lymph # (Auto) Valley # (Auto) Eos # (Auto) Baso # (Auto) Sodium Potassium Chloride Carbon Dioxide Anion Gap BUN Creatinine Est GFR ( Amer) Est GFR (Non-Af Amer) POC Glucose (mg/dL) 320 H 311 H Random Glucose Calcium Total Bilirubin AST ALT Alkaline Phosphatase Total Protein Albumin Globulin Albumin/Globulin Ratio Procalcitonin 0.14 L 03/11/18 03/11/18 03/11/18 02:05 05:30 05:30 WBC 3.8 L D RBC 3.16 L Hgb 8.4 L Hct 29.8 L MCV 94.3 MCH 26.6 MCHC 28.2 L RDW 17.6 H Plt Count 246 MPV 11.0 Gran % 84.0 H Lymph % (Auto) 13.1 L Valley % (Auto) 2.9 Eos % (Auto) 0.0 L Baso % (Auto) 0.0 Gran # 3.22 Lymph # (Auto) 0.5 L Valley # (Auto) 0.1 Eos # (Auto) 0.0 Baso # (Auto) 0.00 Sodium 144 Potassium 4.5 Chloride 105 Carbon Dioxide 30 Anion Gap 14 BUN 63 H Creatinine 2.4 H Est GFR ( Amer) 25 Est GFR (Non-Af Amer) 21 POC Glucose (mg/dL) 387 H Random Glucose 357 H* D Calcium 7.8 L Total Bilirubin 0.3 AST 29 ALT 26 Alkaline Phosphatase 67 Total Protein 6.6 Albumin 3.6 Globulin 3.0 Albumin/Globulin Ratio 1.2 Procalcitonin 03/11/18 03/11/18 07:13 11:25 WBC RBC Hgb Hct MCV MCH MCHC RDW Plt Count MPV Gran % Lymph % (Auto) Valley % (Auto) Eos % (Auto) Baso % (Auto) Gran # Lymph # (Auto) Valley # (Auto) Eos # (Auto) Baso # (Auto) Sodium Potassium Chloride Carbon Dioxide Anion Gap BUN Creatinine Est GFR ( Amer) Est GFR (Non-Af Amer) POC Glucose (mg/dL) 318 H 311 H Random Glucose Calcium Total Bilirubin AST ALT Alkaline Phosphatase Total Protein Albumin Globulin Albumin/Globulin Ratio Procalcitonin
[2018-03-11] MEDS: Acetylcysteine 20% Inhal Soln (4ml) PO SCH (17:12)
--- NOTE | 2018-03-11 18:14 | PN ---
DATE: 03/10/2018 SUBJECTIVE: The patient is extubated, she is in the medical floor now, no distress. She still needs the oxygen. She still needs nebulizers treatment, but clinically better and she is eating. She has no chest pain. PHYSICAL EXAMINATION: GENERAL: On 03/10/2018 is as follows, temperature 99.1, heart rate 84, blood pressure 139/54, respirations 18, saturation 94%. HEAD AND NECK: Normal. No JVD. No thyromegaly. CHEST: Clear bilaterally. CARDIAC: First sound and second sounds are normal. LUNGS: Diminished breath sounds, but bilateral rhonchi. Mild wheeze bilaterally and diminished breath sounds. ABDOMEN: Obese and nontender. EXTREMITIES: No edema. NEUROLOGIC: Normal. LABORATORY DATA: Sodium 147, potassium 4, chloride 106, bicarb 33, BUN 56, creatinine 2.6. Blood sugar 160, calcium is 7.9. The patient also has white count of 5.9, hemoglobin 8.2, hematocrit 28.4 and platelets 255. Urine shows white cells and red blood cells. Microbiology, the patient's blood culture x2 negative. She has Enterococcus aeruginosa. IMPRESSION AND PLAN: 1. Status post extubation from chronic obstructive pulmonary disease exacerbation, pneumonia, bronchitis, continue current therapy. The patient still getting IV steroids and doxycycline IV plus nebulizers treatment doing better plus oxygen. 2. The patient has breast cancer with pleural effusion. We will discuss about the finding of the pleural effusions. 3. Insulin-dependent diabetes, continue insulin coverage. 4. Chronic back pain, chronic anxiety, continue Xanax and Percocet. Continue gastrointestinal and deep venous thrombosis prophylaxis. 5. Chronic renal insufficiency and Nephrology was seen the patient. Sloan Sosa MD
--- NOTE | 2018-03-11 18:59 | PN ---
DATE: 03/11/2018 PULMONARY PROGRESS NOTE REFERRING PHYSICIAN: Sloan Sosa MD SUBJECTIVE: The patient is sitting up at bedside, in no acute distress. Family present, reports cough, shortness of breath with exertion. No headache, rhinitis, chest pain, abdominal pain, nausea, vomiting, diarrhea, leg pain, or leg swelling reported. OBJECTIVE: VITAL SIGNS: Blood pressure 159/55, pulse 78, temperature 100.1, and oxygen saturation 96%. GENERAL: No acute distress. HEENT: Moist mucous membranes. NECK: Supple. No JVD. RESPIRATORY: Diminished breath sounds on the right. Rhonchi bilaterally. CARDIOVASCULAR: S1, S2 audible. ABDOMEN: Soft, nontender. No distention. No organomegaly. EXTREMITIES: No bilateral lower extremity edema. NEUROLOGIC: Awake, alert, verbal, follows simple commands. MEDICATIONS: Reviewed. DuoNeb 3 mL inhalation every 6 hours p.r.n., Xanax 0.5 mg p.o. three times a day p.r.n., Brovana 15 mcg every 12 hours inhalation, aspirin 81 mg p.o. daily, Lipitor 10 mg p.o. daily, Pulmicort 3.5 mg inhalation every 12 hours, cefepime 1 g every 12 hours, doxycycline 100 mg every 12 hours, ergocalciferol 50,000 units every 7 days, ferrous gluconate 324 mg three times a day, Lasix 40 mg p.o. daily, heparin 5000 units three times a day, Humalog 8 units before meals, Solu-Medrol 40 mg three times a day, Percocet 1 tab every 8 hours p.r.n., Protonix 40 mg IV push daily, 1 tab p.o. daily. LABORATORY DATA: Reviewed. WBC 3.8, RBC 3.16, hemoglobin 8.6, hematocrit 29.8, and platelets 246. Sodium 144, potassium 4.5, chloride 105, carbon dioxide 30, anion gap 14, BUN 63, creatinine 2.4. GFR 21. POC glucose 318, random glucose 357. Calcium 7.8, total bilirubin 0.3, AST 29, ALT 26, alkaline phosphatase 67, total protein 6.6, albumin 3.6, globulin 3, albumin/globulin ratio 1.2. DIAGNOSTIC DATA: Chest x-ray shows no significant interval change compared to prior examinations. Chest CT shows progressive consolidative change, volume loss in the right hemithorax with abundant partially loculated subpulmonic effusions, stable scarring in the right upper lobe, new left chest wall lymphadenopathy suspicious for tumor. IMPRESSION AND PLAN: Respiratory failure, on ventilator and presently extubated, chronic obstructive pulmonary disease, pleural effusion, history of breast cancer, anemia, diabetes, recurrent urinary retract infection, history of noncompliance, active smoker, new chest wall mass noted on CT scan with mass measuring 1.5 inch and 2.5 cm respectively. From pulmonary point of view, continue antibiotic therapy. Continue steroids and inhaled bronchodilators. Gastric prophylaxis, deep venous thrombosis prophylaxis. Will do aggressive pulmonary toileting. The patient has dry wet cough with thick secretions. The patient refuses to use CPAP machine. We will consult oncologist regarding new mass identified. We will start chest PT, incentive spirometer. We will add Mucomyst and Singulair. This patient was seen and examined with Dr. Rucker. Discussed assessment and plan as described above. Thank you for this consult. We will follow with you. Didier Dennis APN Lisa Rucker MD [facility]
--- NOTE | 2018-03-11 19:06 | PN ---
DATE: 03/11/2018 SUBJECTIVE: The patient is sitting on the bed. She is eating, watching TV. She has and she has mild wheeze, otherwise better. No chest pain. No nausea or vomiting. She seems weak. PHYSICAL EXAMINATION: Today, 03/11/2018; VITAL SIGNS: Temperature 97.9, heart rate 74, blood pressure 130/50, respiration 20, saturation 96% on nasal cannula. HEAD AND NECK: Normal. No JVD. No thyromegaly. CHEST: Mild wheeze with diminished breath sounds. CARDIAC: First sound and second sound normal. ABDOMEN: Obese, soft, and nontender. EXTREMITIES: No edema. NEUROLOGIC: Normal. LABORATORY DATA: The patient had laboratory studies which was marked for BUN 56, creatinine 2.6, and procalcitonin 0.14. His hematology shows white count 3.8, hemoglobin 8.4, hematocrit 29.8, and platelets 246. On repeat labs, also chemistry shows sodium 144, potassium 4.5, chloride 105, bicarb 30, BUN 63, creatinine 2.4, and blood sugars 357. Liver function test is normal. ASSESSMENT AND PLAN: 1. Respiratory failure status post extubation. Continue doxycycline and IV Solu-Medrol. Follow up with pulmonary doctor, Chaim. 2. Insulin-dependent diabetes. Blood sugar is still going up. We will continue insulin before meals plus sliding scale. 3. Chronic back pain, chronic anxiety. Continue Xanax and Percocet. I discussed the risk and benefit of that. 4. Chronic renal insufficiency with acute worsening. Discussed with Dr. Chatman. Continue current therapy. Plan is to continue current therapy. Follow up clinically. Sloan Sosa MD
--- NOTE | 2018-03-11 23:51 | HP ---
DATE OF EXAM: 03/09/2018 CHIEF COMPLAINT: The patient came into the emergency room with acute respiratory distress and change in mental status. HISTORY OF PRESENT ILLNESS: This is a well known patient with history of chronic obstructive pulmonary disease noncompliance, breast CA, pleural effusions, came into the hospital with acute respiratory distress, not responding, could not get any old history. The patient above 100 and intubated because of underlying medical conditions they are having issue with inability to make decision due to mental illness, mental disability, but they are communicating. PAST MEDICAL HISTORY: As I mentioned, she has breast CA, pleural effusion, COPD, insulin-dependent diabetes, chronic back pain, chronic anxiety, heavy smoker decreased a lot last month, chronic osteoarthritis of spine and the knees, insulin dependent diabetes. ALLERGIES: SHE IS ALLERGIC TO LEVOFLOXACIN, WHOLE DRUGS, ADVIL, NYSTATIN. REVIEW OF SYSTEMS: Could not be obtained. MEDICATIONS: She does take insulin, oxycodone, Xanax, simvastatin, Lasix, Pepcid, vitamin D, aspirin, Percocet. PHYSICAL EXAMINATION: GENERAL: She was intubated in the unit on the mechanical ventilation, having sedated and no complaint. VITAL SIGNS: Temperature 99.5, heart rate 114, blood pressure 153/71, respiratory rate , saturating 92%, the patient is mechanically ventilated. HEAD AND NECK: Normal. CHEST: Bilateral diminished breath sounds and wheezing. EXTREMITIES: No edema. ABDOMEN: Soft, nontender. NEUROLOGIC: Normal. LABORATORY DATA: On admission, white count 5.6, hemoglobin 9.8, hematocrit 36.4, platelets 308. Chemistry: Sodium 150, potassium 4.8, chloride 108, bicarb 29, BUN 31, creatinine 1.8, blood sugar 163. AST 44, ALT 19, total CPK 29, and total protein-albumin is normal. IMPRESSION AND PLAN: 1. Acute respiratory failure due to underlying chronic obstructive pulmonary disease, possible congestive heart failure. Continue vent support, IV steroids. 2. Pleural effusion. We get a Pulmonary evaluation, Interventional Radiology. 3. Insulin-dependent diabetes. Continue insulin. 4. History of breast cancer, possible pleural effusion. We will discuss that. 5. Insulin-dependent diabetes. Continue insulin coverage. We will monitor her blood sugar. 6. History of breast cancer, chronic back pain, chronic anxiety, currently on propofol. We will continue current therapy. Sloan Sosa MD
[2018-03-12] MEDS ORDERED: Insulin Regular 1 UNITS/0.01 ML ML SC ONE (03:14)
[2018-03-12] MEDS: Albuterol-Ipratrop 3 mg / 0.5 (3 ml) UD IH PRN ×2 (05:08→09:08)
[2018-03-12] MEDS: MethylPREDNISolone 40 mg Vial IVP SCH ×3 (05:28→22:05)
[2018-03-12] MEDS: Arformoterol 15 mcg/2 ml Inh Sol IH SCH ×2 (07:24→20:03)
[2018-03-12] MEDS: Budesonide 0.5 mg/2 ml Inhal Susp UD IH SCH ×2 (07:24→20:03)
[2018-03-12 07:38] LABS: EOS % 0.2 % (1.5-5.0); GRAN # 4.39 (1.4-6.5); GRAN % 85.2 % (50.0-68.0); HEMOGLOBIN 8.7 g/dL (12.0-16.0); LYMPH # 0.5 (1.2-3.4); LYMPH % 9.7 % (22.0-35.0); MEAN CELL VOLUME 93.4 fl (80.0-105.0); MEAN CORPUSCULAR HEMOGLOBIN 27.2 pg (25.0-35.0); MEAN CORPUSCULAR HGB CONC 29.1 g/dl (31.0-37.0); MONO # 0.3 (0.1-0.6); MONO % 4.9 % (1.0-6.0); RBC 3.2 10^6/uL (3.5-6.1); RED CELL DISTRIBUTION WIDTH 17.4 % (11.5-14.5); WHITE BLOOD COUNT 5.2 10^3/uL (4.5-11.0)
[2018-03-12 07:53] LABS: ALB/GLOB RATIO 1.2 (1.1-1.8); ALBUMIN 3.6 g/dL (3.0-4.8); CALCIUM 7.5 mg/dL (8.4-10.5)
[2018-03-12] MEDS ORDERED: Midazolam 2 MG/2 ML VIAL ONE (08:01)
[2018-03-12] MEDS: Multivitamin Vitamin B Complex (Nephro-Vite) Tab PO SCH (08:54)
[2018-03-12] MEDS: Insulin Lispro (humaLOG) MEDIUM Coverage SC SCH ×4 (08:54→22:21)
[2018-03-12] MEDS: Insulin Lispro 1 UNITS/0.01 ML SC SCH ×3 (08:56→19:14)
[2018-03-12] MEDS: Ergocalciferol 50,000 Intl Units Cap PO SCH (09:55)
[2018-03-12] MEDS: Cefepime 1gm in NS 100ml 1 GM/100 ML BAG IVPB SCH ×2 (09:56→22:05)
--- NOTE | 2018-03-12 11:49 | PN ---
PULMONARY PROGRESS NOTE DATE: 03/12/2018 SUBJECTIVE: The patient is lying in bed. No acute distress. No overnight events reported. The patient reports cough, and periods of shortness of breath. No headache, rhinitis, chest pain, abdominal pain, nausea, vomiting, diarrhea, leg pain or leg swelling reported. OBJECTIVE: GENERAL: No acute distress. VITAL SIGNS: Blood pressure 144/53, pulse 74, temperature 98, and oxygen saturation 96% on nasal cannula. HEENT: Moist mucous membranes. NECK: Supple. No JVD. RESPIRATORY: Diminished breath sounds on the right. Rhonchi bilaterally. CARDIOVASCULAR: S1 and S2 audible. ABDOMEN: Soft and nontender. No distention. No organomegaly. EXTREMITIES: No bilateral lower extremity edema. NEUROLOGIC: Awake, alert, verbal, follows simple commands. MEDICATIONS: Reviewed. Mucomyst 3 mL inhalation twice a day, DuoNeb 3 mL inhalation every 6 hours p.r.n., Xanax 0.5 mg three times a day, Brovana 15 mcg every 12 hours, aspirin 81 mg p.o. daily, Lipitor 10 mg p.o. daily, Pulmicort 0.5 mg every 12 hours, cefepime 1 g every 12 hours, doxycycline 100 mg every 12 hours, ergocalciferol 50,000 units every 7 days, ferrous gluconate 324 mg three times a day, Lasix 40 mg daily, heparin 5000 units three times a day, Humalog sliding scale, Humalog 8 units a.c., Solu-Medrol 40 mg three times a day, Singulair 10 mg at bedtime, Percocet 5/325 mg 1 tab every 8 hours p.r.n., Protonix 20 mg IV push daily and Nephro-Enrrique one tab daily. LABORATORY DATA: Reviewed. WBC 5.2, RBC 3.2, hemoglobin 8.7, hematocrit 29.9, and platelets 231. Sodium 140, potassium 4.5, chloride 103, carbon dioxide 20, anion gap 13, BUN 65, creatinine 2.4, GFR 21, POC glucose 300, random glucose 324, calcium 7.5, total bilirubin 0.3, AST 19, ALT 25, alkaline phosphatase 63, total protein 6.3, albumin 3.6, globulin 3.1 and albumin-globulin ratio 1.2. IMPRESSION AND PLAN: Respiratory failure on ventilator and presently extubated, chronic obstructive pulmonary disease, pleural effusion, history of breast cancer, anemia, diabetes, recurrent urinary tract infection, history of noncompliance, active smoker, new chest wall mass. Pulmonary point of view, continue antibiotic therapy, continue steroids, inhaled bronchodilators, mucolytics, leukotriene inhibitors, gastric prophylaxis, deep venous thrombosis prophylaxis. Continue aggressive pulmonary toileting. Continue chest PT. Continue incentive spirometry use. The patient presently refuses to use continuous positive airway pressure machine. Pending Oncology consult. This patient was seen and examined with Dr. Rucker. Discussed assessment and plan as described above. Thank you for this consult. We will follow with you. Didier Dennis APN Lisa Rucker MD MTDJuan
--- NOTE | 2018-03-12 11:59 | PN ---
DATE: 03/12/2018 SUBJECTIVE: The patient is in bed, in no acute distress, nontoxic. No fevers, no chills. OBJECTIVE: VITAL SIGNS: Temperature is 98, blood pressure 20/70, respiratory rate of 16. HEENT: Unremarkable. NECK: Supple. LUNGS: Have decreased breath sounds. HEART: Normal S1, S2. ABDOMEN: Soft, nontender. LABORATORY EXAMINATION: Reveals a white count of 5.2, hemoglobin of 8, platelets of 231. Chemistries are noted. Creatinine is 2.4. Urinalysis is noted. Toxicology is noted and serology is negative. Microbiology reveals Enterobacter aerogenes in the urine culture. Urinalysis is noted and the patient is on p.o. doxycycline and IV cefepime, Solu-Medrol. ASSESSMENT AND PLAN: This is a 57-year-old female with multiple admissions, long-term active smoker, end-stage chronic fructose lung disease, breast cancer, diabetes, renal disease, hypertension, esophagitis, admitted with a change in mental status, hypercapnic respiratory failure, healthcare-associated pneumonia on doxycycline and cefepime, today is day #4 and the patient also with Enterobacter aerogenes in the urine. However, urinalysis is only 510 WBCs. Can discontinue the antibiotics next [address] Rucker is note is reviewed. Prasanth Malcolm MD
[2018-03-12] MEDS: Oxycodone/Acetaminophen 5/325 mg Tab PO PRN (12:24)
--- NOTE | 2018-03-12 13:48 | CP.PCM.PN ---
Subjective - Date & Time of Evaluation Date of Evaluation: 03/12/18 Time of Evaluation: 13:47 - Subjective Subjective: Nephrology Consultation Note: Assessment: Stable Acute Kidney Injury (N17.9) AMS, CO2 narcosis and acute on chronc respi acidosis with respi failure with renal compensation rt large pleural effusion with chest wall mass ? malignant (hx of breast CA) Diabetic chronic Kidney Disease (E11.22) Hypertensive Chronic Kidney Disease (I12.9) Chronic Kidney Disease (N18.3) Stage 3 with 1200 mg proteinuria and 400 mg albuminuria (R80.9) likely due to DM/HTN Anemia (D64.9) COPD/asthma, active smoker, breast cancer s/p surgery 2 years ago active smoker Plan No acute need for renal replacement therapy at this time. Hypertension control with meds as ordered. Maintain hemodynamics stable. Avoid hypotension. Patient not on ACEI/ARB due to recent DAHLIA Monitor Input/Output, daily weights and renal function with basic metabolic panel low Na and low K diet consider heme/onc eval for malignancy. will defer use of ORVILLE in view of her recent breast malignancy with concerns for mets repeat renal sono in 6 months for cyst follow up started iron, MVI and weekly Vit D lasix 40 mg daily pulmonary, ID following Dose meds/antibiotics for reduced GFR. Avoid fleets enema/magnesium based laxatives. Avoid nephrotoxins/NSAIDs/ iodinated contrast (unless needed emergently) Glycemic control. pt need to stop smoking Further work up/management as per primary team Thanks for allowing me to participate in care of your patient. Will follow p atient with you. Please call if any Qs. had d/w team Dr Marco Antonio Chatman Office: [phone] Chief Complaint; none Reason for consult: Acute Kidney Injury HPI: Pt is a 57 F with hx of diabetes Mellitus ( years), hypertension (years) COPD/asthma, active smoker, breast cancer s/p surgery 2 years ago but didn't complete treatment, anemia, CKD stage 3 with baseline cr 1.8 mg/dL initially admitted with AMS, CO2 narcosis and respi failure, rt large pleural effusion now seen for DAHLIA Denies OTC/herbal meds or NSAIDs No recent iodinated contrast exposure. No obvious episodes of low BP. ROS: pt is a poor historian and overall hx is limited from her. denies CP/SOB Physical Examination: General Appearance: Comfortable, in no acute respiratory distress, co-operative . Vitals reviewed and noted as below Head; Atraumatic, normocephalic ENT: no ulcers no thrush. Tongue is midline. Oropharynx: no rash or ulcers. she is hard of hearing EYES: Pupils are equal, round and reactive to light accommodation. Eye muscles and extraocular movement intact. Sclera is anicteric. Neck; supple no lymphadenopathy, no thyromegaly or bruit Lungs: Normal respiratory rate/effort. Breath sounds reduced at base Heart: Normal rate. s1s2 normal. No rub or gallop. Extremities: 1+ edema. No varicose veins Neurological: Patient is alert, awake and oriented to person, place and time. No focal deficit. Strength bilateral appropriate and equal Skin: Warm and dry. Normal turgor. No rash. Palpitation: Normal elasticity for age Abdomen: Abdomen is soft. Bowel sounds +. There is no abdominal tenderness, no guarding/rigidity no organomegaly Psych: lack insight and normal affect/mood MSK: no joint tenderness or swelling. Digits and nails normal, no deformity : kidney or bladder not palpable Labs/imaging reviewed. Past medical history, past surgical history, family history, social history, allergy reviewed and noted as below Family hx: no hx of CKD. Rest non-contributory renal imaging: b/l cysts echo normal LVEF TSAt 26% ferritin 45 Serum FLC assay WNL ABDIRIZAK neg PTH 154 Vit D 17 Objective - Vital Signs/Intake and Output Vital Signs (last 24 hours): Temp Pulse Resp BP Pulse Ox 98 F 75 20 126/54 L 96 03/12/18 00:01 03/12/18 06:00 03/12/18 06:00 03/12/18 09:55 03/12/18 00:01 Intake and Output: 03/12/18 03/12/18 06:59 18:59 Intake Total 400 Output Total 500 Balance -100 - Medications Medications: Current Medications Acetylcysteine (Acetylcysteine 20%) 3 ml PO BID LUCIANO Last Admin: 03/11/18 17:12 Dose: 3 ml Albuterol/Ipratropium (Duoneb 3 Mg/0.5 Mg (3 Ml) Ud) 3 ml IH [id number] PRN PRN Reason: Shortness of Breath Last Admin: 03/12/18 09:08 Dose: 3 ml Alprazolam (Xanax) 0.5 mg PO TID PRN; Protocol PRN Reason: Anxiety Last Admin: 03/12/18 12:25 Dose: 0.5 mg Arformoterol Tartrate (Brovana) 15 mcg IH [id number] [facility] Last Admin: 03/12/18 07:24 Dose: 15 mcg Aspirin (Aspirin Chewable) 81 mg PO DAILY [facility] Last Admin: 03/12/18 09:54 Dose: 81 mg Atorvastatin Calcium (Lipitor) 10 mg PO DAILY [facility] Last Admin: 03/12/18 09:55 Dose: 10 mg Budesonide (Pulmicort Respules) 0.5 mg IH [id number] [facility] Last Admin: 03/12/18 07:24 Dose: 0.5 mg Doxycycline Hyclate (Doryx) 100 mg PO Q12 [facility]; Protocol Stop: 03/16/18 22:01 Last Admin: 03/12/18 09:54 Dose: 100 mg Ergocalciferol (Drisdol 50,000 Intl Units Cap) 1 cap PO Q7D [facility] Last Admin: 03/12/18 09:55 Dose: 1 cap Ferrous Gluconate (Fergon) 324 mg PO TID [facility] Last Admin: 03/12/18 09:55 Dose: 324 mg Furosemide (Lasix) 40 mg PO DAILY [facility] Last Admin: 03/12/18 09:55 Dose: 40 mg Heparin Sodium (Porcine) (Heparin) 5,000 units SC 0600,1400,2200 [facility]; Protocol Last Admin: 03/12/18 05:31 Dose: 5,000 units Cefepime HCl (Maxipime 1gm) 1 gm in 100 mls @ 25 mls/hr IVPB Q12 LUCIANO; Protocol Last Admin: 03/12/18 09:56 Dose: 25 mls/hr Insulin Human Lispro (Humalog Med) 0 units SC ACHS [facility]; Protocol Last Admin: 03/12/18 12:24 Dose: 8 units Insulin Human Lispro (Humalog) 8 units SC AC [facility] Last Admin: 03/12/18 12:24 Dose: 8 units Methylprednisolone (Solu-Medrol) 40 mg IVP 0600,1400,2200 [facility] Last Admin: 03/12/18 05:28 Dose: 40 mg Montelukast Sodium (Singulair) 10 mg PO HS [facility] Last Admin: 03/11/18 21:12 Dose: 10 mg Oxycodone/Acetaminophen (Percocet 5/325 Mg Tab) 1 tab PO Q8H PRN PRN Reason: Pain, moderate (4-7) Stop: 03/13/18 16:38 Last Admin: 03/12/18 12:24 Dose: 1 tab Pantoprazole Sodium (Protonix Inj) 40 mg IVP DAILY [facility] Last Admin: 03/12/18 09:56 Dose: 40 mg Vitamin B Complex/Vit C/Folic Acid (Nephro-Enrrique) 1 tab PO 0800 [facility] Last Admin: 03/12/18 08:54 Dose: 1 tab - Labs Labs: 03/12/18 07:10 03/12/18 07:10 PT 12.5 SECONDS (9.4-12.5) 03/08/18 13:30 INR 1.09 03/08/18 13:30 APTT 38.8 Seconds (25.1-36.5) H 03/08/18 13:30
[2018-03-12] MEDS: Acetylcysteine 20% Inhal Soln (4ml) PO SCH ×2 (14:28→20:37)
--- NOTE | 2018-03-12 20:15 | PN ---
DATE: 03/12/2018 FOLLOWUP NOTE SUBJECTIVE: In short, the patient is a 57-year-old female with multiple medical issues including COPD, asthma, breast cancer, anxiety, chronic back pain, insulin-dependent diabetes, recurrent UTIs. The patient was admitted on the medical side for evaluation of altered mental status. The patient was brought by her son. The patient was seen by Dr. Schulte over the weekend. This telegraphic typewriter repairer is taking over. Over the weekend, the patient was confused but as per Dr. Schulte's note, the patient was doing better yesterday. The patient was seen and examined today. The patient presented to be alert. The patient seems to be disengaged and does not want to have interview. Most likely, it is related to the fact that the patient does not hear very well. This telegraphic typewriter repairer had to scream in her ears in order for the patient to hear. The patient denied feeling depressed. Denied feeling anxious. The patient was repeating the same question and this telegraphic typewriter repairer to call for evaluation, and the patient was keep repeating that "I am not crazy, I am not crazy." The patient denied any thoughts of harming herself or others. Denied intent or plan. The patient is not psychotic. Discussed with the nurse on the medical side. The patient does not exhibit any aggression or agitation. OBJECTIVE: VITAL SIGNS: Reviewed. Temperature 97.1, pulse 108, blood pressure 160/75, respirations 18. MEDICATIONS: Reviewed. The patient is on DuoNeb, Xanax 0.5 mg three times a day as needed, Brovana, aspirin, Lipitor, Pulmicort, cefepime, doxycycline, Drisdol, ferrous gluconate, Lasix, heparin, human lispro, Solu-Medrol, Singulair, Percocet, Protonix, vitamin C complex. LABORATORY DATA: Reviewed. Hemoglobin and hematocrit 8.7 and 29.9. Coagulation reviewed. Blood gas reviewed. Chemistry reviewed. Urinalysis reviewed. Benzodiazepines were positive. Serology is negative for any infection. MENTAL STATUS EXAMINATION: The patient presented to be mildly annoyed, irritable. Mood described as fine. Affect was constricted. Thought process seems to be concrete. Thought content, the patient denied visual, auditory, or tactile hallucinations. Denied paranoid ideations. The patient denied thoughts of harming herself or others. Denied intent or plan. Insight and judgment seems to be fair. Impulses are well controlled. IMPRESSION: As per Dr. Schulte's note, mood disorder, no otherwise specified. This telegraphic typewriter repairer would like to rule out delirium and mood disorder due to general medical condition. PLAN: Continue current management. Continue current medications. No medication adjustments needed because the patient appears to be very comfortable. The patient expressed no thoughts of harming herself or others. The patient lives with her son. The patient is not agitated. The patient is on psychotic. This telegraphic typewriter repairer will sign off. Should you have any questions, give me a call back. Beba Ernst MD MTDJuan
[2018-03-13] MEDS ORDERED: Insulin Regular 1 UNITS/0.01 ML ML SC ONE ×2 (00:11→08:39)
[2018-03-13] MEDS: Oxycodone/Acetaminophen 5/325 mg Tab PO PRN (02:48)
[2018-03-13] MEDS: MethylPREDNISolone 40 mg Vial IVP SCH (06:05)
[2018-03-13 07:26] LABS: GRAN # 5.14 (1.4-6.5); HEMOGLOBIN 8.8 g/dL (12.0-16.0); LYMPH # 0.4 (1.2-3.4); LYMPH % 7.4 % (22.0-35.0); MEAN CELL VOLUME 92.9 fl (80.0-105.0); MEAN CORPUSCULAR HEMOGLOBIN 27.2 pg (25.0-35.0); MEAN CORPUSCULAR HGB CONC 29.3 g/dl (31.0-37.0); MEAN PLATELET VOLUME 11.6 fl (7.0-11.0); MONO # 0.2 (0.1-0.6); MONO % 3.6 % (1.0-6.0); RBC 3.23 10^6/uL (3.5-6.1); WHITE BLOOD COUNT 5.8 10^3/uL (4.5-11.0)
[2018-03-13] MEDS: Budesonide 0.5 mg/2 ml Inhal Susp UD IH SCH ×2 (07:35→19:24)
[2018-03-13] MEDS: Arformoterol 15 mcg/2 ml Inh Sol IH SCH ×2 (07:36→19:24)
[2018-03-13 07:44] LABS: ALB/GLOB RATIO 1.2 (1.1-1.8); ALBUMIN 3.4 g/dL (3.0-4.8)
[2018-03-13] MEDS ORDERED: Insulin Lispro 1 UNITS/0.01 ML SC ONE ×2 (08:30→17:45)
[2018-03-13] MEDS ORDERED: Insulin Lispro (humaLOG) LOW Coverage SC ONE (08:30)
[2018-03-13] MEDS: Multivitamin Vitamin B Complex (Nephro-Vite) Tab PO SCH (09:03)
[2018-03-13] MEDS: Insulin Lispro (humaLOG) MEDIUM Coverage SC SCH (09:44)
[2018-03-13] MEDS: Insulin Lispro 1 UNITS/0.01 ML SC SCH ×3 (09:45→17:19)
--- NOTE | 2018-03-13 10:05 | RAD ---
Date of service: 03/13/2018 HISTORY: intubated COMPARISON: Multiple serial examinations preceding the most recent study: 03/11/2018 including chest radiograph and CT thorax FINDINGS: LUNGS: Stable consolidative changes likely compressive atelectasis right lower lobe. PLEURA: Stable right pleural effusion inseparable from findings in the right lower lobe and right middle lobe. CARDIOVASCULAR: Atherosclerotic calcifications identified primarily aortic arch. Venous access catheter in stable, satisfactory position. OSSEOUS STRUCTURES: No significant abnormalities. VISUALIZED UPPER ABDOMEN: Normal. OTHER FINDINGS: None. IMPRESSION: No significant interval change compared to the prior examination(s).
[2018-03-13] MEDS: Cefepime 1gm in NS 100ml 1 GM/100 ML BAG IVPB SCH (11:18)
[2018-03-13] MEDS: Acetylcysteine 20% Inhal Soln (4ml) PO SCH ×2 (11:20→17:20)
[2018-03-13] MEDS: Insulin Reg-LOW-Coverage SC SCH ×3 (12:10→21:51)
[2018-03-13] MEDS: Albuterol-Ipratrop 3 mg / 0.5 (3 ml) UD IH PRN (12:36)
--- NOTE | 2018-03-13 13:07 | PN ---
DATE: 03/13/2018 SUBJECTIVE: The patient is in bed in no acute distress, nontoxic. OBJECTIVE: VITAL SIGNS: Temperature is 98, blood pressure is 140/60, respiratory rate of 18. HEENT: Unremarkable. NECK: Supple. LUNGS: Have decreased breath sounds. HEART: Normal S1, S2. ABDOMEN: Soft. LABORATORY EXAMINATION: Reveals a white count of 5.8, hemoglobin of 8, platelets of 238. BUN 69, creatinine of 2.2. Procalcitonin 0.14. Urinalysis is noted. Toxicology is noted. Serology is reviewed, Enterobacter aerogenes in the urine culture. Review of orders. Stable consolidative changes. Review of orders reveals the patient is on p.o. doxycycline, IV cefepime. ASSESSMENT/PLAN A 57-year-old female with multiple admissions, long-term active smoker, end-stage chronic obstructive lung disease, breast cancer, diabetes, renal disease, hypertension, esophagitis, admitted with change in mental status and hypercapnic respiratory failure with a healthcare-associated pneumonia, today on doxy and cefepime day #5 and we will discontinue the antibiotics. The patient is doing well and she has been afebrile. Her breathing is much improved. She has normal white count, cultures are negative. Nasal MRSA is not detected and urine for Legionella antigen is negative. We will discontinue the antibiotics. No need for further antibiotics at this point. Prasanth Malcolm MD
--- NOTE | 2018-03-13 13:39 | CP.PCM.PN ---
Subjective - Date & Time of Evaluation Date of Evaluation: 03/13/18 Time of Evaluation: 13:38 - Subjective Subjective: Nephrology Consultation Note: Assessment: Stable Acute Kidney Injury (N17.9) AMS, CO2 narcosis and acute on chronc respi acidosis with respi failure with renal compensation rt large pleural effusion with chest wall mass ? malignant (hx of breast CA) Diabetic chronic Kidney Disease (E11.22) Hypertensive Chronic Kidney Disease (I12.9) Chronic Kidney Disease (N18.3) Stage 3 with 1200 mg proteinuria and 400 mg albuminuria (R80.9) likely due to DM/HTN Anemia (D64.9) COPD/asthma, active smoker, breast cancer s/p surgery 2 years ago active smoker Plan No acute need for renal replacement therapy at this time. Hypertension control with meds as ordered. Maintain hemodynamics stable. Avoid hypotension. Patient not on ACEI/ARB due to recent DAHLIA, now stable cr hence added losartan 50 mg/d Monitor Input/Output, daily weights and renal function with basic metabolic panel low Na and low K diet consider heme/onc eval for malignancy. will defer use of ORVILLE in view of her recent breast malignancy with concerns for mets repeat renal sono in 6 months for cyst follow up started iron, MVI and weekly Vit D lasix 40 mg daily pulmonary, ID following Dose meds/antibiotics for reduced GFR. Avoid fleets enema/magnesium based laxatives. Avoid nephrotoxins/NSAIDs/ iodinated contrast (unless needed emergently) Glycemic control. pt need to stop smoking Further work up/management as per primary team Thanks for allowing me to participate in care of your patient. Will follow patient with you. Please call if any Qs. had d/w team Dr Marco Antonio Chatman Office: [phone] Chief Complaint; none Reason for consult: Acute Kidney Injury HPI: Pt is a 57 F with hx of diabetes Mellitus ( years), hypertension (years) COPD/asthma, active smoker, breast cancer s/p surgery 2 years ago but didn't complete treatment, anemia, CKD stage 3 with baseline cr 1.8 mg/dL initially admitted with AMS, CO2 narcosis and respi failure, rt large pleural effusion now seen for DAHLIA Denies OTC/herbal meds or NSAIDs No recent iodinated contrast exposure. No obvious episodes of low BP. ROS: pt is a poor historian and overall hx is limited from her. denies CP but c/o SOB today. no urine complaints Physical Examination: General Appearance: Comfortable, in no acute respiratory distress, co-operative . Vitals reviewed and noted as below Head; Atraumatic, normocephalic ENT: no ulcers no thrush. Tongue is midline. Oropharynx: no rash or ulcers. she is hard of hearing EYES: Pupils are equal, round and reactive to light accommodation. Eye muscles and extraocular movement intact. Sclera is anicteric. Neck; supple no lymphadenopathy, no thyromegaly or bruit Lungs: Normal respiratory rate/effort. Breath sounds reduced at base with b/l wheezing Heart: Normal rate. s1s2 normal. No rub or gallop. Extremities: 1+ edema. No varicose veins Neurological: Patient is alert, awake and oriented to person, place and time. No focal deficit. Strength bilateral appropriate and equal Skin: Warm and dry. Normal turgor. No rash. Palpitation: Normal elasticity for age Abdomen: Abdomen is soft. Bowel sounds +. There is no abdominal tenderness, no guarding/rigidity no organomegaly Psych: lack insight and normal affect/mood MSK: no joint tenderness or swelling. Digits and nails normal, no deformity : kidney or bladder not palpable Labs/imaging reviewed. Past medical history, past surgical history, family history, social history, allergy reviewed and noted as below Family hx: no hx of CKD. Rest non-contributory renal imaging: b/l cysts echo normal LVEF TSAt 26% ferritin 45 Serum FLC assay WNL ABDIRIZAK neg PTH 154 Vit D 17 Objective - Vital Signs/Intake and Output Vital Signs (last 24 hours): Temp Pulse Resp BP Pulse Ox 98.4 F 74 18 149/60 96 03/13/18 12:00 03/13/18 12:00 03/13/18 12:00 03/13/18 12:00 03/12/18 00:01 Intake and Output: 03/13/18 03/13/18 06:59 18:59 Intake Total 1180 Output Total 1100 Balance 80 - Medications Medications: Current Medications Acetylcysteine (Acetylcysteine 20%) 3 ml PO BID LUCIANO Last Admin: 03/13/18 11:20 Dose: 3 ml Albuterol/Ipratropium (Duoneb 3 Mg/0.5 Mg (3 Ml) Ud) 3 ml IH [id number] PRN PRN Reason: Shortness of Breath Last Admin: 03/13/18 12:36 Dose: 3 ml Alprazolam (Xanax) 0.5 mg PO TID PRN; Protocol PRN Reason: Anxiety Last Admin: 03/12/18 22:10 Dose: 0.5 mg Arformoterol Tartrate (Brovana) 15 mcg IH [id number] [facility] Last Admin: 03/13/18 07:36 Dose: 15 mcg Aspirin (Aspirin Chewable) 81 mg PO DAILY [facility] Last Admin: 03/13/18 11:18 Dose: 81 mg Atorvastatin Calcium (Lipitor) 10 mg PO DAILY [facility] Last Admin: 03/13/18 11:18 Dose: 10 mg Budesonide (Pulmicort Respules) 0.5 mg IH [id number] [facility] Last Admin: 03/13/18 07:35 Dose: 0.5 mg Ergocalciferol (Drisdol 50,000 Intl Units Cap) 1 cap PO Q7D [facility] Last Admin: 03/12/18 09:55 Dose: 1 cap Ferrous Gluconate (Fergon) 324 mg PO TID [facility] Last Admin: 03/13/18 11:18 Dose: 324 mg Furosemide (Lasix) 40 mg PO DAILY [facility] Last Admin: 03/13/18 11:20 Dose: 40 mg Heparin Sodium (Porcine) (Heparin) 5,000 units SC 0600,1400,2200 [facility]; Protocol Last Admin: 03/13/18 06:06 Dose: 5,000 units Insulin Detemir (Levemir) 10 unit SC HS [facility] Insulin Human Lispro (Humalog) 15 units SC AC [facility] Last Admin: 03/13/18 12:11 Dose: 15 units Insulin Human Regular (Humulin R Low) 0 units SC ACHS [facility]; Protocol Last Admin: 03/13/18 12:10 Dose: 5 units Losartan Potassium (Cozaar) 50 mg PO DAILY [facility] Last Admin: 03/13/18 11:19 Dose: 50 mg Montelukast Sodium (Singulair) 10 mg PO HS [facility] Last Admin: 03/12/18 22:04 Dose: 10 mg Oxycodone/Acetaminophen (Percocet 5/325 Mg Tab) 1 tab PO Q8H PRN PRN Reason: Pain, moderate (4-7) Stop: 03/13/18 16:38 Last Admin: 03/13/18 02:48 Dose: 1 tab Pantoprazole Sodium (Protonix Inj) 40 mg IVP DAILY [facility] Last Admin: 03/13/18 11:20 Dose: 40 mg Vitamin B Complex/Vit C/Folic Acid (Nephro-Enrrique) 1 tab PO 0800 [facility] Last Admin: 03/13/18 09:03 Dose: 1 tab - Labs Labs: 03/13/18 06:30 03/13/18 06:30 PT 12.5 SECONDS (9.4-12.5) 03/08/18 13:30 INR 1.09 03/08/18 13:30 APTT 38.8 Seconds (25.1-36.5) H 03/08/18 13:30
[2018-03-13] MEDS ORDERED: Insulin Lispro 1 UNITS/0.01 ML SC SCH (17:35)
--- NOTE | 2018-03-13 20:02 | PN ---
DATE: 03/13/2018 SUBJECTIVE: The patient is stable. Blood sugar running in the 400, otherwise, clinically stable. No new complaints. PHYSICAL EXAMINATION VITAL SIGNS: Shows temperature 97.4, heart rate 73, blood pressure 146/69, respirations 20. HEAD AND NECK: Normal. LUNGS: Mild wheeze, better than before. CARDIAC: First sound and second sound normal. ABDOMEN: Soft, nontender. EXTREMITIES: No edema. NEUROLOGICAL: Normal. LABORATORY STUDIES: Show the following; blood sugar in the 300 and 461, sodium 135, potassium 4.7, chloride 96, BUN 69, creatinine 2.2. Liver function test is normal. CBC: White count is 5.8, hemoglobin 8.8, hematocrit 30, platelets 238. IMPRESSION AND PLAN: 1. Acute chronic obstructive pulmonary disease exacerbation. Continue Solu-Medrol. We will switch Solu-Medrol to 40 IV b.i.d. Continue inhaled bronchodilators. 2. Blood sugar, uncontrolled. Increase insulin to 15 units before meals plus Levemir and low insulin coverage and decrease prednisone. 3. Anemia, breast cancer. We will follow up that as outpatient. 4. Chronic back pain, chronic osteoarthritis. Continue Percocet. 5. Chronic anxiety. Continue Xanax and Zoloft medically. Continue current therapy. The patient is seen by Psychiatry. Sloan Sosa MD
[2018-03-13] MEDS: Insulin Detemir 100 units/ml Vial (Levemir) SC SCH (21:44)
--- NOTE | 2018-03-13 22:29 | PN ---
DATE: 03/11/2018 SUBJECTIVE: The patient is feeling better. She still complained short of breath. She has no chest pain. No nausea. No vomiting. No fever. She is eating better. PHYSICAL EXAMINATION VITAL SIGNS: Temperature 98.3, heart rate 70, blood pressure 155/62, and respirations 20. HEAD AND NECK: Normal. No JVD, no thyromegaly. CHEST: Bilateral lung shows mild wheeze. CARDIOPULMONARY: First sound and second sound normal. ABDOMEN: Soft, obese, nontender. EXTREMITIES: No edema. NEUROLOGIC: Generally weak, but move all extremity. Seems stable. LABORATORY DATA: The patient had Enterococcus in the urine and she also had C. diff test was negative x2. She also had white count 3.8, hemoglobin 8.4, hematocrit 29.3, and platelets 245. Chemistry shows sodium 144, potassium 4.5, chloride 105, bicarb 30, BUN 63, creatinine 2.4. Blood sugar is 350. Liver function is normal. ASSESSMENT AND PLAN: 1. Acute chronic obstructive pulmonary disease exacerbation. Continue current therapy. Continue inhaled and IV bronchodilator, Solu-Medrol 40 every 8 hours for high sugar. We will monitor sugar with medium coverage plus insulin before meals. 2. Chronic renal failure. Dr. Chatman seeing the patient. 3. History of breast carcinoma, pleural effusion, was still waiting for reason for that. 4. Chronic anxiety. Chronic back pain. Continue Xanax and Percocet. PLAN: Continue current therapy. Continue Lasix 40 p.o. daily and follow up clinically. Continue Lipitor and folic acid. Sloan Sosa MD
[2018-03-14 00:20] LABS: SOURCE SERUM
[2018-03-14] MEDS: Pantoprazole 40 mg EC Tab PO SCH (05:32)
[2018-03-14 07:07] LABS: EOS % 0.1 % (1.5-5.0); GRAN # 6.87 (1.4-6.5); GRAN % 89.5 % (50.0-68.0); HEMOGLOBIN 9.1 g/dL (12.0-16.0); LYMPH # 0.6 (1.2-3.4); LYMPH % 8.1 % (22.0-35.0); MEAN CELL VOLUME 92.6 fl (80.0-105.0); MEAN CORPUSCULAR HGB CONC 29.2 g/dl (31.0-37.0); MEAN PLATELET VOLUME 11.2 fl (7.0-11.0); MONO # 0.2 (0.1-0.6); MONO % 2.3 % (1.0-6.0); RBC 3.37 10^6/uL (3.5-6.1); RED CELL DISTRIBUTION WIDTH 17.1 % (11.5-14.5); WHITE BLOOD COUNT 7.7 10^3/uL (4.5-11.0)
[2018-03-14] MEDS ORDERED: Pantoprazole 40 mg EC Tab PO SCH (07:30)
--- NOTE | 2018-03-14 07:32 | CP.PCM.PN ---
<Imelda Greer - Last Filed: 03/14/18 12:16> Subjective - Date & Time of Evaluation Date of Evaluation: 03/14/18 Time of Evaluation: 07:28 - Subjective Subjective: ID progress note PGY-[address] Damon Pt sitting comfortably in bed with 2L O2 NC. She is hard of hearing. States no trouble breathing. Denies f/c, HENNESSY, CP, SOB, N/V/D/C, dysuria Objective - Vital Signs/Intake and Output Vital Signs (last 24 hours): Temp Pulse Resp BP Pulse Ox 97.9 F 71 22 119/58 L 98 03/14/18 06:00 03/14/18 06:00 03/14/18 06:00 03/14/18 06:00 03/14/18 06:00 Intake and Output: 03/14/18 03/14/18 06:59 18:59 Intake Total 780 Output Total 700 Balance 80 - Medications Medications: Current Medications Acetylcysteine (Acetylcysteine 20%) 3 ml PO BID [facility] Last Admin: 03/13/18 17:20 Dose: 3 ml Albuterol/Ipratropium (Duoneb 3 Mg/0.5 Mg (3 Ml) Ud) 3 ml IH [id number] PRN PRN Reason: Shortness of Breath Last Admin: 03/13/18 12:36 Dose: 3 ml Alprazolam (Xanax) 0.5 mg PO TID PRN; Protocol PRN Reason: Anxiety Last Admin: 03/13/18 20:39 Dose: 0.5 mg Arformoterol Tartrate (Brovana) 15 mcg IH [id number] [facility] Last Admin: 03/13/18 19:24 Dose: 15 mcg Aspirin (Aspirin Chewable) 81 mg PO DAILY [facility] Last Admin: 03/13/18 11:18 Dose: 81 mg Atorvastatin Calcium (Lipitor) 10 mg PO DAILY [facility] Last Admin: 03/13/18 11:18 Dose: 10 mg Budesonide (Pulmicort Respules) 0.5 mg IH [id number] [facility] Last Admin: 03/13/18 19:24 Dose: 0.5 mg Ergocalciferol (Drisdol 50,000 Intl Units Cap) 1 cap PO Q7D [facility] Last Admin: 03/12/18 09:55 Dose: 1 cap Ferrous Gluconate (Fergon) 324 mg PO TID [facility] Last Admin: 03/13/18 17:19 Dose: 324 mg Furosemide (Lasix) 40 mg PO DAILY [facility] Last Admin: 03/13/18 11:20 Dose: 40 mg Heparin Sodium (Porcine) (Heparin) 5,000 units SC 0600,1400,2200 [facility]; Protocol Last Admin: 03/14/18 05:31 Dose: 5,000 units Insulin Detemir (Levemir) 10 unit SC HS [facility] Last Admin: 03/13/18 21:44 Dose: 10 iu Insulin Human Lispro (Humalog) 10 units SC ACL LUCIANO Insulin Human Regular (Humulin R Low) 0 units SC ACHS [facility]; Protocol Last Admin: 03/13/18 21:51 Dose: 3 units Losartan Potassium (Cozaar) 50 mg PO DAILY [facility] Last Admin: 03/13/18 11:19 Dose: 50 mg Montelukast Sodium (Singulair) 10 mg PO HS [facility] Last Admin: 03/13/18 21:46 Dose: 10 mg Oxycodone/Acetaminophen (Percocet 5/325 Mg Tab) 1 tab PO Q8H PRN PRN Reason: Pain, moderate (4-7) Stop: 03/16/18 18:40 Pantoprazole Sodium (Protonix Ec Tab) 40 mg PO 0600 [facility] Last Admin: 03/14/18 05:32 Dose: 40 mg Prednisone (Prednisone Tab) 40 mg PO DAILY [facility] Last Admin: 03/13/18 18:00 Dose: 40 mg Vitamin B Complex/Vit C/Folic Acid (Nephro-Enrrique) 1 tab PO 0800 [facility] Last Admin: 03/13/18 09:03 Dose: 1 tab - Labs Labs: 03/14/18 07:00 03/13/18 06:30 PT 12.5 SECONDS (9.4-12.5) 03/08/18 13:30 INR 1.09 03/08/18 13:30 APTT 38.8 Seconds (25.1-36.5) H 03/08/18 13:30 - Constitutional Appears: No Acute Distress - Head Exam Head Exam: ATRAUMATIC, NORMAL INSPECTION, NORMOCEPHALIC - Eye Exam Eye Exam: EOMI, Normal appearance, PERRL. absent: Scleral icterus Pupil Exam: NORMAL ACCOMODATION - ENT Exam ENT Exam: Mucous Membranes Moist - Neck Exam Additional comments: supple - Respiratory Exam Respiratory Exam: Clear to Ausculation Bilateral, Rhonchi (RUL), Wheezes (RUL), NORMAL BREATHING PATTERN. absent: Decreased Breath Sounds, Rales - Cardiovascular Exam Cardiovascular Exam: REGULAR RHYTHM, +S1, +S2 - GI/Abdominal Exam GI & Abdominal Exam: Soft, Normal Bowel Sounds. absent: Tenderness Additional comments: No suprapubic tenderness - Extremities Exam Extremities Exam: absent: Calf Tenderness, Pedal Edema - Back Exam Back Exam: absent: CVA tenderness (L), CVA tenderness (R) - Neurological Exam Neurological Exam: Alert, Awake, Oriented x3 - Psychiatric Exam Psychiatric exam: Normal Affect, Normal Mood - Skin Skin Exam: Dry, Warm Assessment and Plan - Assessment and Plan (Free Text) Plan: Ms Granado, 57F with multiple admissions, long-term active smoker, end-stage COPD, breast cancer, diabetes admitted with AMS and hypercapnic respiratory failure due to large R pleural effusion with mediastinal shift and lobar ate lectasis, requiring intubation. Pt was extubated, clinically improving. She was on doxy and cefepime (x 5 days) for healthcare-associated pneumonia. Leukopenia 3.8 and Tmax 100.1 three days ago. Both resolved. Antibiotics discontinued (on 03/13). Healthcare associated pneumonia - resolved large R pleural effusion - resolved ?Asymptomatic bacteriuria s/p 5 days of cefepime DAHLIA - improving from 2.6 to 2.2 Allergy to levofloxacin and nystatin Plan: - Observe off antibiotics. Monitor clinical course. s/p doxy and cefepime (x 5 days) - Sugar control per primary - DAHLIA management per nephro. Renal dose medicine Imaging/Culture: - Urine Cx (morfin) Enterobacter aerogenes - Blood culture: neg x 5d - C diff: neg - MRSA: neg - CT chest w/o contrast (03/11): Volume loss in R hemithorax with partial loculated subpulmonic effusion. progressive consolidative changes - CXR (03/13): No change as compared to 03/11 - procacl = 0.14; negative legionella/strep pneumo s/r/d/w Dr Damon <Chung Damon - Last Filed: 03/14/18 14:52> Objective - Vital Signs/Intake and Output Vital Signs (last 24 hours): Temp Pulse Resp BP Pulse Ox 97.8 F 80 20 140/52 L 98 03/14/18 12:00 03/14/18 12:00 03/14/18 12:00 03/14/18 12:00 03/14/18 06:00 Intake and Output: 03/14/18 03/14/18 06:59 18:59 Intake Total 780 Output Total 700 Balance 80 - Medications Medications: Current Medications Acetylcysteine (Acetylcysteine 20%) 3 ml PO BID [facility] Last Admin: 03/14/18 10:29 Dose: 3 ml Albuterol/Ipratropium (Duoneb 3 Mg/0.5 Mg (3 Ml) Ud) 3 ml IH [id number] PRN PRN Reason: Shortness of Breath Last Admin: 03/13/18 12:36 Dose: 3 ml Alprazolam (Xanax) 0.5 mg PO TID PRN; Protocol PRN Reason: Anxiety Last Admin: 03/14/18 14:45 Dose: 0.5 mg Arformoterol Tartrate (Brovana) 15 mcg IH [id number] [facility] Last Admin: 03/14/18 07:33 Dose: 15 mcg Aspirin (Aspirin Chewable) 81 mg PO DAILY [facility] Last Admin: 03/14/18 10:35 Dose: 81 mg Atorvastatin Calcium (Lipitor) 10 mg PO DAILY [facility] Last Admin: 03/14/18 10:37 Dose: 10 mg Budesonide (Pulmicort Respules) 0.5 mg IH [id number] [facility] Last Admin: 03/14/18 07:33 Dose: 0.5 mg Doxycycline Hyclate (Doryx) 100 mg PO Q12 [facility]; Protocol Ergocalciferol (Drisdol 50,000 Intl Units Cap) 1 cap PO Q7D [facility] Last Admin: 03/12/18 09:55 Dose: 1 cap Ferrous Gluconate (Fergon) 324 mg PO TID [facility] Last Admin: 03/14/18 14:45 Dose: 324 mg Heparin Sodium (Porcine) (Heparin) 5,000 units SC 0600,1400,2200 [facility]; Protocol Last Admin: 03/14/18 05:31 Dose: 5,000 units Insulin Detemir (Levemir) 10 unit SC HS [facility] Last Admin: 12/25/18 21:44 Dose: 10 iu Insulin Human Lispro (Humalog) 10 units SC ACL [facility] Last Admin: 03/14/18 12:35 Dose: 10 units Insulin Human Lispro (Humalog) 15 units SC AC [facility] Last Admin: 03/14/18 12:35 Dose: 15 units Insulin Human Regular (Humulin R Low) 0 units SC ACHS [facility]; Protocol Last Admin: 03/14/18 14:44 Dose: 7 units Losartan Potassium (Cozaar) 50 mg PO DAILY [facility] Last Admin: 03/14/18 10:35 Dose: 50 mg Montelukast Sodium (Singulair) 10 mg PO HS [facility] Last Admin: 03/13/18 21:46 Dose: 10 mg Oxycodone/Acetaminophen (Percocet 5/325 Mg Tab) 1 tab PO Q8H PRN PRN Reason: Pain, moderate (4-7) Stop: 03/16/18 18:40 Last Admin: 03/14/18 10:28 Dose: 1 tab Pantoprazole Sodium (Protonix Ec Tab) 40 mg PO 0600 [facility] Last Admin: 03/14/18 05:32 Dose: 40 mg Prednisone (Prednisone Tab) 40 mg PO DAILY [facility] Last Admin: 03/14/18 10:35 Dose: 40 mg Vitamin B Complex/Vit C/Folic Acid (Nephro-Enrrique) 1 tab PO 0800 [facility] Last Admin: 03/14/18 08:29 Dose: 1 tab - Labs Labs: 03/14/18 07:00 03/14/18 05:00 PT 12.5 SECONDS (9.4-12.5) 03/08/18 13:30 INR 1.09 03/08/18 13:30 APTT 38.8 Seconds (25.1-36.5) H 03/08/18 13:30 Assessment and Plan - Assessment and Plan (Free Text) Plan: Infectious diseases Attending Physician Attestation Patient seen and examined, discussed with medical staff services manager. I have reviewed the patient's history of present illness, past medical, social, personal and family histories, pertinent physical exam findings, course so far in this hospital admission, pertinent laboratory and imaging results. I agree with the above findings, assessment and plan. In addition, patient has completed 5 days of Doxycycline and cefepime for patient with right sided pleural effusion R/O pneumonia. Also concerned about malignancy. Will monitor off antibiotics. Pleural effusion has decreased. Patient with asymptomatic bacteriuria and will monitor.
[2018-03-14] MEDS: Budesonide 0.5 mg/2 ml Inhal Susp UD IH SCH ×2 (07:33→19:24)
[2018-03-14] MEDS: Arformoterol 15 mcg/2 ml Inh Sol IH SCH ×2 (07:33→19:24)
[2018-03-14 07:55] LABS: ALB/GLOB RATIO 1.3 (1.1-1.8); ALBUMIN 3.3 g/dL (3.0-4.8)
[2018-03-14] MEDS: Insulin Reg-LOW-Coverage SC SCH ×4 (08:28→22:16)
[2018-03-14] MEDS: Multivitamin Vitamin B Complex (Nephro-Vite) Tab PO SCH (08:29)
[2018-03-14] MEDS: Insulin Lispro 1 UNITS/0.01 ML SC SCH ×3 (08:29→17:31)
--- NOTE | 2018-03-14 09:15 | PN ---
DATE: 03/13/2018 PULMONARY PROGRESS NOTE REFERRING PHYSICIAN: Sloan Sosa MD SUBJECTIVE: Sitting side of the bed. Family at bedside, still has cough, sputum production. No nausea, vomiting, no diarrhea, leg pain, leg swelling. OBJECTIVE: GENERAL: In no acute distress. VITAL SIGNS: Temp is 98, heart rate 83, respiratory rate is 18, blood pressure 149/60, pulse ox is 96% nasal cannula. HEENT: Moist mucous membrane. Crowded airway. Mallampati score is 4. NECK: Supple. No JVD. LUNGS: Have a scattered rhonchi and crackles. HEART: S1 and S2. ABDOMEN: Soft, nontender. No organomegaly. EXTREMITIES: No edema. NEUROLOGIC: Awake, alert and follows simple commands. MEDICATIONS: She is on Mucomyst inhaled twice a day, aspirin 81 mg daily, Brovana inhaled twice a day, Cozaar 50 mg daily, vitamin D 1 capsule q.7 days, DuoNeb q.6 hours p.r.n., ferrous gluconate 325 mg three times a day, heparin SubQ 5000 units q.8 hours, insulin coverage, Lasix 40 mg daily, Levemir 10 units SubQ at bedtime, Lipitor 10 mg daily, Nephro vitamins daily, Protonix 40 mg daily, Pulmicort inhaled twice a day, Singulair 10 mg bedtime, Xanax 0.5 mg three times a day p.r.n. LABORATORY DATA: Shows hemoglobin 8.8, hematocrit 30, WBC 5.8, platelet count is 238. Sodium 135, potassium 4.7, chloride 98, bicarbonate 30, BUN 69, creatinine 2.2, glucose 461, calcium is 7. AST 28, ALT 29, alk phos is 77. Albumin is 3.4. Urine culture is Enterobacter aerogenes. Blood cultures have been negative. IMAGING: Chest x-ray done today shows no significant interval changes, stable consolidation changes like compressive atelectasis, right lower lobe. IMPRESSION AND PLAN: Chronic obstructive lung disease component of hypoventilation syndrome, history of breast cancer, noncompliant with the treatment and followup, anemia, recurrent urinary tract infections, diabetes. Continue IV and inhaled bronchodilator, insulin coverage, gastric prophylaxis, deep venous thrombosis prophylaxis, incentive spirometer, pulmonary toilet. Spoke to family at bedside. All their questions answered. Thank you and we will follow with you. Lisa Rucker MD [facility] # [id number]
[2018-03-14] MEDS: Oxycodone/Acetaminophen 5/325 mg Tab PO PRN (10:28)
[2018-03-14] MEDS: Acetylcysteine 20% Inhal Soln (4ml) PO SCH ×2 (10:29→17:31)
[2018-03-14] MEDS ORDERED: Insulin Lispro 1 UNITS/0.01 ML SC SCH (11:30)
--- NOTE | 2018-03-14 11:42 | RAD ---
Date of service: 03/14/2018 HISTORY: intubated COMPARISON: Portable chest 03/13/2018. FINDINGS: LUNGS: Right MediPort unchanged in position. Left lung remains clear with no interval change in moderate right pleural effusion. Underlying airspace disease right base not completely excluded. No left pleural effusion. No definite pneumothorax bilaterally. Patient's lower face obscures medial apices somewhat bilaterally. PLEURA: As above. CARDIOVASCULAR: Calcific atherosclerotic changes are seen related to the thoracic aorta. Cardiac size obscured by right pleural effusion. No pulmonary vascular congestion. OSSEOUS STRUCTURES: No significant abnormalities. VISUALIZED UPPER ABDOMEN: Normal. OTHER FINDINGS: None. IMPRESSION: Stable chest radiograph including moderate right pleural effusion. Underlying right basilar airspace disease not completely excluded.
--- NOTE | 2018-03-14 12:46 | PN ---
DATE: 03/14/2018 PULMONARY PROGRESS NOTE REFERRING PHYSICIAN: Sloan Sosa MD SUBJECTIVE: The patient is sitting up in bed. No acute distress. No overnight events reported. The patient does report slight improvement in shortness of breath and cough this morning. No headache, rhinitis, chest pain, abdominal pain, nausea, vomiting, diarrhea, leg pain or leg swelling reported. OBJECTIVE: GENERAL: No acute distress. VITAL SIGNS: Blood pressure 119/58, pulse 71, temperature 97, and oxygen 98% on nasal cannula. HEENT: Moist mucous membranes. Crowded airway. Mallampati score of 4. NECK: Supple. No JVD. LUNGS: Scattered rhonchi bilaterally. CARDIOVASCULAR: S1 and S2 audible. ABDOMEN: Soft and nontender. No distention. No organomegaly. EXTREMITIES: No bilateral lower extremity edema. NEUROLOGIC: Awake, alert, verbal and follows simple commands. MEDICATIONS: Reviewed. Mucomyst 3 mL p.o. twice a day, DuoNeb 3 mL inhalation every 6 hours p.r.n., Xanax 0.5 mg three times a day p.r.n., Brovana 15 mcg every 12 hours, aspirin 81 mg daily, Lipitor 10 mg daily, Pulmicort 0.5 mg every 12 hours, ergocalciferol 50,000 units every 7 days, ferrous gluconate 324 mg three times a day, Lasix 40 mg daily, heparin 5000 units three times a day, Levemir 10 units subcutaneously at bedtime, Humalog 15 units subcutaneously before meals, Humalog 10 units subcutaneously, Humulin R sliding scale, Cozaar 50 mg daily, Singulair 10 mg at bedtime, Percocet 5/325 mg every 8 hours p.r.n., Protonix 40 mg daily, prednisone 40 mg daily and Nephro-Enrrique one tab daily. LABORATORY DATA: Reviewed. WBC 7.7, RBC 3.37, hemoglobin 9.1, hematocrit 31.2, and platelets 254. Sodium 136, potassium 4.6, chloride 99, carbon dioxide 31, anion gap 10, BUN 74, creatinine 2.2, GFR 23, random glucose 448, calcium 7, total bilirubin 0.2, AST 31, ALT 32, alkaline phosphatase 81, total protein 5.8, albumin 3.3, globulin 2.5 and albumin-globulin ratio 1.3. Chest x-ray report pending. IMPRESSION AND PLAN: Chronic obstructive lung disease component of hypoventilation syndrome, history of breast cancer, noncompliant with treatment and followup, recurrent urinary tract infection, anemia, diabetes. We will add doxycycline 100 mg twice a day for acute bronchitis. We will discontinue Lasix due to increase in BUN, creatinine. We will order labs in the morning. Continue discontinue IV and continue bronchodilators, insulin coverage, gastric prophylaxis, deep venous thrombosis prophylaxis, incentive spirometer, and pulmonary toileting. This patient was seen and examined with Dr. Rucker. Discussed assessment and plan as described above. Thank you for this consult. We will follow with you. Didier Dennis APN Lisa Rucker MD
--- NOTE | 2018-03-14 15:49 | CP.PCM.PN ---
Subjective - Date & Time of Evaluation Date of Evaluation: 03/14/18 Time of Evaluation: 15:49 - Subjective Subjective: Nephrology Consultation Note: Assessment: Stable Acute Kidney Injury (N17.9) AMS, CO2 narcosis and acute on chronc respi acidosis with respi failure with renal compensation rt large pleural effusion with chest wall mass ? malignant (hx of breast CA) Diabetic chronic Kidney Disease (E11.22) Hypertensive Chronic Kidney Disease (I12.9) Chronic Kidney Disease (N18.3) Stage 3 with 1200 mg proteinuria and 400 mg albuminuria (R80.9) likely due to DM/HTN Anemia (D64.9) COPD/asthma, active smoker, breast cancer s/p surgery 2 years ago active smoker Plan No acute need for renal replacement therapy at this time. Hypertension control with meds as ordered. Maintain hemodynamics stable. Avoid hypotension. Patient not on ACEI/ARB due to recent DAHLIA, now stable cr hence added losartan 50 mg/d Monitor Input/Output, daily weights and renal function with basic metabolic panel low Na and low K diet consider heme/onc eval for malignancy. will defer use of [place] in view of her recent breast malignancy with concerns for mets repeat renal sono in 6 months for cyst follow up started iron, MVI and weekly Vit D lasix 40 mg daily resume once glucose control better pulmonary, ID following Dose meds/antibiotics for reduced GFR. Avoid fleets enema/magnesium based laxatives. Avoid nephrotoxins/NSAIDs/ iodinated contrast (unless needed e mergently) Glycemic control. pt need to stop smoking Further work up/management as per primary team Thanks for allowing me to participate in care of your patient. Will follow patient with you. Please call if any Qs. had d/w team Dr Marco Antonio Chatman Office: [phone] Chief Complaint; none Reason for consult: Acute Kidney Injury HPI: Pt is a 57 F with hx of diabetes Mellitus ( years), hypertension (years) COPD/asthma, active smoker, breast cancer s/p surgery 2 years ago but didn't complete treatment, anemia, CKD stage 3 with baseline cr 1.8 mg/dL initially admitted with AMS, CO2 narcosis and respi failure, rt large pleural effusion now seen for DAHLIA Denies OTC/herbal meds or NSAIDs No recent iodinated contrast exposure. No obvious episodes of low BP. ROS: pt is a poor historian and overall hx is limited from her. denies CP but c/o SOB today. no urine complaints Physical Examination: General Appearance: Comfortable, in no acute respiratory distress, co-operative . Vitals reviewed and noted as below Head; Atraumatic, normocephalic ENT: no ulcers no thrush. Tongue is midline. Oropharynx: no rash or ulcers. she is hard of hearing EYES: Pupils are equal, round and reactive to light accommodation. Eye muscles and extraocular movement intact. Sclera is anicteric. Neck; supple no lymphadenopathy, no thyromegaly or bruit Lungs: Normal respiratory rate/effort. Breath sounds reduced at base with b/l wheezing Heart: Normal rate. s1s2 normal. No rub or gallop. Extremities: 1+ edema. No varicose veins Neurological: Patient is alert, awake and oriented to person, place and time. No focal deficit. Strength bilateral appropriate and equal Skin: Warm and dry. Normal turgor. No rash. Palpitation: Normal elasticity for age Abdomen: Abdomen is soft. Bowel sounds +. There is no abdominal tenderness, no guarding/rigidity no organomegaly Psych: lack insight and normal affect/mood MSK: no joint tenderness or swelling. Digits and nails normal, no deformity : kidney or bladder not palpable Labs/imaging reviewed. Past medical history, past surgical history, family history, social history, allergy reviewed and noted as below Family hx: no hx of CKD. Rest non-contributory renal imaging: b/l cysts echo normal LVEF TSAt 26% ferritin 45 Serum FLC assay WNL ABDIRIZAK neg PTH 154 Vit D 17 Objective - Vital Signs/Intake and Output Vital Signs (last 24 hours): Temp Pulse Resp BP Pulse Ox 97.8 F 80 20 140/52 L 98 03/14/18 12:00 03/14/18 12:00 03/14/18 12:00 03/14/18 12:00 03/14/18 06:00 Intake and Output: 03/14/18 03/14/18 06:59 18:59 Intake Total 780 Output Total 700 Balance 80 - Medications Medications: Current Medications Acetylcysteine (Acetylcysteine 20%) 3 ml PO BID [facility] Last Admin: 03/14/18 10:29 Dose: 3 ml Albuterol/Ipratropium (Duoneb 3 Mg/0.5 Mg (3 Ml) Ud) 3 ml IH [id number] PRN PRN Reason: Shortness of Breath Last Admin: 03/13/18 12:36 Dose: 3 ml Alprazolam (Xanax) 0.5 mg PO TID PRN; Protocol PRN Reason: Anxiety Last Admin: 03/14/18 14:45 Dose: 0.5 mg Arformoterol Tartrate (Brovana) 15 mcg IH [id number] [facility] Last Admin: 03/14/18 07:33 Dose: 15 mcg Aspirin (Aspirin Chewable) 81 mg PO DAILY [facility] Last Admin: 03/14/18 10:35 Dose: 81 mg Atorvastatin Calcium (Lipitor) 10 mg PO DAILY [facility] Last Admin: 03/14/18 10:37 Dose: 10 mg Budesonide (Pulmicort Respules) 0.5 mg IH [id number] [facility] Last Admin: 03/14/18 07:33 Dose: 0.5 mg Doxycycline Hyclate (Doryx) 100 mg PO Q12 [facility]; Protocol Ergocalciferol (Drisdol 50,000 Intl Units Cap) 1 cap PO Q7D [facility] Last Admin: 03/12/18 09:55 Dose: 1 cap Ferrous Gluconate (Fergon) 324 mg PO TID [facility] Last Admin: 03/14/18 14:45 Dose: 324 mg Heparin Sodium (Porcine) (Heparin) 5,000 units SC 0600,1400,2200 [facility]; Protocol Last Admin: 03/14/18 05:31 Dose: 5,000 units Insulin Detemir (Levemir) 10 unit SC HS [facility] Last Admin: 03/13/18 21:44 Dose: 10 iu Insulin Human Lispro (Humalog) 10 units SC ACL [facility] Last Admin: 03/14/18 12:35 Dose: 10 units Insulin Human Lispro (Humalog) 15 units SC AC [facility] Last Admin: 03/14/18 12:35 Dose: 15 units Insulin Human Regular (Humulin R Low) 0 units SC ACHS [facility]; Protocol Last Admin: 03/14/18 14:44 Dose: 7 units Losartan Potassium (Cozaar) 50 mg PO DAILY [facility] Last Admin: 03/14/18 10:35 Dose: 50 mg Montelukast Sodium (Singulair) 10 mg PO HS [facility] Last Admin: 03/13/18 21:46 Dose: 10 mg Oxycodone/Acetaminophen (Percocet 5/325 Mg Tab) 1 tab PO Q8H PRN PRN Reason: Pain, moderate (4-7) Stop: 03/16/18 18:40 Last Admin: 03/14/18 10:28 Dose: 1 tab Pantoprazole Sodium (Protonix Ec Tab) 40 mg PO 0600 [facility] Last Admin: 03/14/18 05:32 Dose: 40 mg Prednisone (Prednisone Tab) 40 mg PO DAILY [facility] Last Admin: 03/14/18 10:35 Dose: 40 mg Vitamin B Complex/Vit C/Folic Acid (Nephro-Enrrique) 1 tab PO 0800 [facility] Last Admin: 03/14/18 08:29 Dose: 1 tab - Labs Labs: 03/14/18 07:00 03/14/18 05:00 PT 12.5 SECONDS (9.4-12.5) 03/08/18 13:30 INR 1.09 03/08/18 13:30 APTT 38.8 Seconds (25.1-36.5) H 03/08/18 13:30
[2018-03-14] MEDS: Insulin Detemir 100 units/ml Vial (Levemir) SC SCH (22:15)
[2018-03-15] MEDS ORDERED: Insulin Reg-LOW-Coverage SC ONE (02:28)
[2018-03-15] MEDS: Pantoprazole 40 mg EC Tab PO SCH (05:22)
[2018-03-15 05:59] LABS: BASO # 0.01 K/mm3 (0.0-2.0); BASO % 0.1 % (0.0-3.0); GRAN # 8.72 (1.4-6.5); GRAN % 81.1 % (50.0-68.0); HEMOGLOBIN 9.6 g/dL (12.0-16.0); LYMPH % 8.9 % (22.0-35.0); MEAN CELL VOLUME 93.7 fl (80.0-105.0); MEAN CORPUSCULAR HEMOGLOBIN 27.4 pg (25.0-35.0); MEAN CORPUSCULAR HGB CONC 29.2 g/dl (31.0-37.0); MEAN PLATELET VOLUME 11.1 fl (7.0-11.0); MONO # 1.1 (0.1-0.6); MONO % 9.9 % (1.0-6.0); RBC 3.51 10^6/uL (3.5-6.1); RED CELL DISTRIBUTION WIDTH 17.7 % (11.5-14.5); WHITE BLOOD COUNT 10.8 10^3/uL (4.5-11.0)
[2018-03-15] MEDS: Arformoterol 15 mcg/2 ml Inh Sol IH SCH ×2 (07:31→20:13)
[2018-03-15] MEDS: Budesonide 0.5 mg/2 ml Inhal Susp UD IH SCH ×2 (07:31→20:13)
[2018-03-15 07:55] LABS: ALB/GLOB RATIO 1.3 (1.1-1.8); ALBUMIN 3.2 g/dL (3.0-4.8); CALCIUM 6.8 mg/dL (8.4-10.5)
--- NOTE | 2018-03-15 08:43 | CP.PCM.PN ---
<Imelda Greer - Last Filed: 03/15/18 14:39> Subjective - Date & Time of Evaluation Date of Evaluation: 03/15/18 Time of Evaluation: 08:39 - Subjective Subjective: ID progress note PGY-[address] Damon Pt sits comfortably by bedside, on 2L NS, just received breathing treatment. No acute complained. Denies fever, chills, cp, sob, n/v/d/c, dysuria, urinary frequiency Objective - Vital Signs/Intake and Output Vital Signs (last 24 hours): Temp Pulse Resp BP Pulse Ox 97.9 F 82 20 125/56 L 100 03/15/18 06:00 03/15/18 06:00 03/15/18 06:00 03/15/18 06:00 03/15/18 06:00 Intake and Output: 03/15/18 03/15/18 06:59 18:59 Intake Total 2160 Output Total 2450 Balance -290 - Medications Medications: Current Medications Acetylcysteine (Acetylcysteine 20%) 3 ml PO BID [facility] Last Admin: 03/14/18 17:31 Dose: 3 ml Albuterol/Ipratropium (Duoneb 3 Mg/0.5 Mg (3 Ml) Ud) 3 ml IH [id number] PRN PRN Reason: Shortness of Breath Last Admin: 03/13/18 12:36 Dose: 3 ml Alprazolam (Xanax) 0.5 mg PO TID PRN; Protocol PRN Reason: Anxiety Last Admin: 03/14/18 22:14 Dose: 0.5 mg Arformoterol Tartrate (Brovana) 15 mcg IH [id number] [facility] Last Admin: 03/15/18 07:31 Dose: Not Given Aspirin (Aspirin Chewable) 81 mg PO DAILY [facility] Last Admin: 03/14/18 10:35 Dose: 81 mg Atorvastatin Calcium (Lipitor) 10 mg PO DAILY [facility] Last Admin: 03/14/18 10:37 Dose: 10 mg Budesonide (Pulmicort Respules) 0.5 mg IH [id number] [facility] Last Admin: 03/15/18 07:31 Dose: Not Given Doxycycline Hyclate (Doryx) 100 mg PO Q12 [facility]; Protocol Last Admin: 03/14/18 22:14 Dose: 100 mg Ergocalciferol (Drisdol 50,000 Intl Units Cap) 1 cap PO Q7D [facility] Last Admin: 03/12/18 09:55 Dose: 1 cap Ferrous Gluconate (Fergon) 324 mg PO TID [facility] Last Admin: 03/14/18 17:33 Dose: 324 mg Heparin Sodium (Porcine) (Heparin) 5,000 units SC 0600,1400,2200 [facility]; Protocol Last Admin: 03/15/18 05:22 Dose: 5,000 units Insulin Detemir (Levemir) 15 unit SC HS [facility] Insulin Human Lispro (Humalog) 15 units SC AC [facility] Last Admin: 03/14/18 17:31 Dose: 15 units Insulin Human Lispro (Humalog) 20 units SC AC [facility] Insulin Human Regular (Humulin R Low) 0 units SC ACHS [facility]; Protocol Last Admin: 03/14/18 22:16 Dose: 2 units Losartan Potassium (Cozaar) 50 mg PO DAILY [facility] Last Admin: 03/14/18 10:35 Dose: 50 mg Montelukast Sodium (Singulair) 10 mg PO [facility] Last Admin: 03/14/18 22:15 Dose: 10 mg Oxycodone/Acetaminophen (Percocet 5/325 Mg Tab) 1 tab PO Q8H PRN PRN Reason: Pain, moderate (4-7) Stop: 03/16/18 18:40 Last Admin: 03/14/18 10:28 Dose: 1 tab Pantoprazole Sodium (Protonix Ec Tab) 40 mg PO 0600 [facility] Last Admin: 03/15/18 05:22 Dose: 40 mg Prednisone (Prednisone Tab) 20 mg PO DAILY [facility] Vitamin B Complex/Vit C/Folic Acid (Nephro-Enrrique) 1 tab PO 0800 [facility] Last Admin: 03/14/18 08:29 Dose: 1 tab - Labs Labs: 03/15/18 05:30 03/15/18 05:30 PT 12.5 SECONDS (9.4-12.5) 03/08/18 13:30 INR 1.09 03/08/18 13:30 APTT 38.8 Seconds (25.1-36.5) H 03/08/18 13:30 - Constitutional Appears: No Acute Distress, Other (Hard of hearing) - Head Exam Head Exam: ATRAUMATIC, NORMAL INSPECTION, NORMOCEPHALIC - Eye Exam Eye Exam: EOMI, Normal appearance, PERRL. absent: Scleral icterus Pupil Exam: NORMAL ACCOMODATION - ENT Exam ENT Exam: Mucous Membranes Moist - Neck Exam Additional comments: supple - Respiratory Exam Respiratory Exam: Clear to Ausculation Bilateral, Rhonchi, NORMAL BREATHING PATTERN. absent: Rales, Wheezes - Cardiovascular Exam Cardiovascular Exam: REGULAR RHYTHM, +S1, +S2 - GI/Abdominal Exam GI & Abdominal Exam: Soft. absent: Firm, Guarding, Rigid, Tenderness, Mass Additional comments: No suprapubic tenderness - Extremities Exam Extremities Exam: absent: Calf Tenderness, Pedal Edema - Back Exam Back Exam: absent: CVA tenderness (L), CVA tenderness (R) - Neurological Exam Neurological Exam: Alert, Awake, Oriented x3 - Psychiatric Exam Psychiatric exam: Normal Affect, Normal Mood - Skin Skin Exam: Dry, Warm Assessment and Plan - Assessment and Plan (Free Text) Plan: Ms Granado, 57F with multiple admissions, long-term active smoker, end-stage COPD, breast cancer, diabetes admitted with AMS and hypercapnic respiratory failure due to large R pleural effusion with mediastinal shift and lobar atelectasis, rs/p intubation, downgraded from ICU to telemetry, clinically improving. She had completed 5 days of doxycycline and cefepime for R sided pleural effusion rule out healthcare-associated pneumonia, concerned about malignancy. Leukopenia and mild fever resolved. Antibiotics discontinued (on 03/13). Healthcare associated pneumonia - resolved large R pleural effusion - resolved Asymptomatic bacteriuria s/p 5 days of cefepime DAHLIA - improving from 2.6 to 2.1, stablizing Allergy to levofloxacin and nystatin Plan: - Observe off antibiotics. Monitor clinical course. S/p doxy and cefepime (x 5 days) - Sugar control per primary - DAHLIA management per nephro. Renal dose medicine - At risk for nosocomial infection Imaging/Culture: - Urine Cx (morfin) Enterobacter aerogenes - Blood culture: neg x 5d - C diff: neg - MRSA: neg - CT chest w/o contrast (03/11): Volume loss in R hemithorax with partial loculated subpulmonic effusion. progressive consolidative changes - CXR (03/13): No change as compared to 03/11 - CXR (03/14) stable moderate R pleural effusion - procacl = 0.14; negative legionella/strep pneumo s/r/d/w Dr Damon <MarisolChungtomasz Pacheco S - Last Filed: 03/15/18 14:59> Objective - Vital Signs/Intake and Output Vital Signs (last 24 hours): Temp Pulse Resp BP Pulse Ox 98.4 F 80 20 122/50 L 100 03/15/18 12:00 03/15/18 12:00 03/15/18 12:00 03/15/18 12:00 03/15/18 06:00 Intake and Output: 03/15/18 03/15/18 06:59 18:59 Intake Total 2160 Output Total 2450 Balance -290 - Medications Medications: Current Medications Acetylcysteine (Acetylcysteine 20%) 3 ml PO BID [facility] Last Admin: 03/15/18 10:46 Dose: 3 ml Albuterol/Ipratropium (Duoneb 3 Mg/0.5 Mg (3 Ml) Ud) 3 ml IH [id number] PRN PRN Reason: Shortness of Breath Last Admin: 03/13/18 12:36 Dose: 3 ml Alprazolam (Xanax) 0.5 mg PO TID PRN; Protocol PRN Reason: Anxiety Last Admin: 03/14/18 22:14 Dose: 0.5 mg Arformoterol Tartrate (Brovana) 15 mcg IH [id number] [facility] Last Admin: 03/15/18 07:31 Dose: Not Given Aspirin (Aspirin Chewable) 81 mg PO DAILY [facility] Last Admin: 03/15/18 10:49 Dose: 81 mg Atorvastatin Calcium (Lipitor) 10 mg PO DAILY [facility] Last Admin: 03/15/18 11:23 Dose: 10 mg Budesonide (Pulmicort Respules) 0.5 mg IH [id number] [facility] Last Admin: 03/15/18 07:31 Dose: Not Given Doxycycline Hyclate (Doryx) 100 mg PO Q12 [facility]; Protocol Last Admin: 03/15/18 11:21 Dose: 100 mg Ergocalciferol (Drisdol 50,000 Intl Units Cap) 1 cap PO Q7D [facility] Last Admin: 03/12/18 09:55 Dose: 1 cap Ferrous Gluconate (Fergon) 324 mg PO TID [facility] Last Admin: 03/15/18 11:21 Dose: 324 mg Heparin Sodium (Porcine) (Heparin) 5,000 units SC 0600,1400,2200 [facility]; Protocol Last Admin: 03/15/18 05:22 Dose: 5,000 units Insulin Detemir (Levemir) 15 unit SC HS [facility] Insulin Human Lispro (Humalog) 15 units SC AC [facility] Last Admin: 03/15/18 09:30 Dose: 15 units Insulin Human Lispro (Humalog) 20 units SC AC [facility] Insulin Human Regular (Humulin R Low) 0 units SC ACHS [facility]; Protocol Last Admin: 03/15/18 09:30 Dose: 4 units Losartan Potassium (Cozaar) 50 mg PO DAILY [facility] Last Admin: 03/15/18 10:51 Dose: 50 mg Montelukast Sodium (Singulair) 10 mg PO [facility] Last Admin: 03/14/18 22:15 Dose: 10 mg Oxycodone/Acetaminophen (Percocet 5/325 Mg Tab) 1 tab PO Q8H PRN PRN Reason: Pain, moderate (4-7) Stop: 03/16/18 18:40 Last Admin: 03/15/18 09:30 Dose: 1 tab Pantoprazole Sodium (Protonix Ec Tab) 40 mg PO 0600 [facility] Last Admin: 03/15/18 05:22 Dose: 40 mg Prednisone (Prednisone Tab) 20 mg PO DAILY [facility] Last Admin: 03/15/18 11:23 Dose: 20 mg Vitamin B Complex/Vit C/Folic Acid (Nephro-Enrrique) 1 tab PO 0800 [facility] Last Admin: 03/15/18 11:23 Dose: 1 tab - Labs Labs: 03/15/18 05:30 03/15/18 05:30 PT 12.5 SECONDS (9.4-12.5) 03/08/18 13:30 INR 1.09 03/08/18 13:30 APTT 38.8 Seconds (25.1-36.5) H 03/08/18 13:30 Assessment and Plan - Assessment and Plan (Free Text) Plan: Infectious diseases Attending Physician Attestation Patient seen and examined, discussed with medical coordinator pesticide use. I have reviewed the patient's history of present illness, past medical, social, personal and family histories, pertinent physical exam findings, course so far in this hospital admission, pertinent laboratory and imaging results. I agree with the above findings, assessment and plan. In addition, patient has completed 5 days of Doxycycline and cefepime for patient with right sided pleural effusion R/O pneumonia. Also concerned about malignancy. Will continue to monitor off antibiotics. Pleural effusion has decreased. Patient with asymptomatic bacteriuria and will continue to monitor.
[2018-03-15] MEDS: Oxycodone/Acetaminophen 5/325 mg Tab PO PRN ×2 (09:30→22:02)
[2018-03-15] MEDS: Insulin Reg-LOW-Coverage SC SCH ×4 (09:30→22:39)
[2018-03-15] MEDS: Insulin Lispro 1 UNITS/0.01 ML SC SCH ×4 (09:30→18:43)
[2018-03-15] MEDS: Acetylcysteine 20% Inhal Soln (4ml) PO SCH ×2 (10:46→18:42)
[2018-03-15] MEDS: Multivitamin Vitamin B Complex (Nephro-Vite) Tab PO SCH (11:23)
--- NOTE | 2018-03-15 11:49 | PN ---
DATE: 03/15/2018 PULMONARY PROGRESS NOTE REFERRING PHYSICIAN: Sloan Sosa MD SUBJECTIVE: The patient is sitting up at bedside. No overnight events reported. No acute distress. The patient reports cough with sputum production, shortness of breath with exertion. No headache, rhinitis, chest pain, abdominal pain, nausea, vomiting, diarrhea, leg pain or leg swelling reported. OBJECTIVE: GENERAL: No acute distress. VITAL SIGNS: Blood pressure 125/56, pulse 82, temperature 97.9, and oxygen 100% on nasal cannula. HEENT: Moist mucous membranes. Crowded airway. Mallampati score of 4. NECK: Supple. No JVD. LUNGS: Scattered rhonchi bilaterally. CARDIOVASCULAR: S1 and S2 audible. ABDOMEN: Soft and nontender. No distention. No organomegaly. EXTREMITIES: No bilateral lower extremity edema. NEUROLOGIC: Awake, alert, verbal and follows simple commands. MEDICATIONS: Reviewed. Mucomyst 3 mL twice a day, DuoNeb 3 mL inhalation every 6 hours p.r.n., Xanax 0.5 mg three times a day p.r.n., Brovana 15 mcg every 12 hours, aspirin 81 mg daily, Lipitor 10 mg daily, Pulmicort 0.5 mg inhalation every 12 hours, calcium gluconate 2000 mg IV piggyback onetime dose today, doxycycline 100 mg every 12 hours, ergocalciferol 50,000 units every 7 days, ferrous gluconate 324 mg three times a day, heparin 5000 units three times a day, Levemir 15 units subcutaneously at bedtime, Humalog 15 units subcutaneously a.c, Humalog 10 units subcutaneously a.c., Humulin R sliding scale, losartan 50 mg daily, Singulair 10 mg at bedtime, Percocet 5/325 mg one tab every 8 hours p.r.n., Protonix 40 mg daily, prednisone 20 mg daily and Nephro-Enrrique one tab daily. LABORATORY DATA: Reviewed. WBC 10.8, RBC 3.51, hemoglobin 9.6, hematocrit 32.9, and platelets 219. Sodium 136, potassium 3.8, chloride 99, carbon dioxide 30, anion gap 11, BUN 79, creatinine 2.1, GFR 24, POC glucose 396, random glucose 459, calcium 6.8, total bilirubin 0.2, AST 11, ALT 26, alkaline phosphatase 82, total protein 5.7, albumin 3.2, globulin 2.5 and albumin-globulin ratio 1.3. IMPRESSION AND PLAN: Chronic obstructive lung disease component of hypoventilation syndrome; history of breast cancer, noncompliant with treatment and followup; recurrent urinary tract infection; anemia and diabetes. Continue antibiotic therapy for acute bronchitis. Continue bronchodilators, gastric prophylaxis, deep venous thrombosis prophylaxis, incentive spirometry use, continue aggressive pulmonary toileting. Follow with labs in the morning. Continue chest physical therapy. This patient was seen and examined with Dr. Rucker. Discussed assessment and plan as described above. Thank you for this consult. We will follow with you. Didier PrudeSTEVE lal Lisa Rucker MD
--- NOTE | 2018-03-15 12:38 | PN ---
DATE: 03/14/2018 SUBJECTIVE: The patient is comfortable. No distress. Blood sugar is 400. She has no chest pain. No shortness of breath. No nausea. No vomiting. PHYSICAL EXAMINATION VITAL SIGNS: Temperature 98.2, heart rate 81, blood pressure 153/62, respirations 20. HEAD AND NECK: Exam is normal. No JVD. No thyromegaly. CHEST: Clear bilaterally. Diminished breath sounds on the right. HEART: First sound and second sound normal. ABDOMEN: Soft. Nontender. EXTREMITIES: No edema. NEUROLOGIC: Exam is normal. LABORATORY DATA: White count 7.7, hemoglobin 9.1, hematocrit 31.2, platelets 254. Chemistries show sodium 136, potassium 4.6, chloride 99, bicarb 31, BUN 74, creatinine 2.2, blood sugar 448. Liver function test is normal. UA shows some white cells. IMPRESSION AND PLAN: 1. Diabetes, uncontrolled secondary to steroids and insulin-dependent diabetes. We will increase her insulin to 15 units before each meal and we will monitor sugar and she may need more insulin. We will see how much requirement and we will try to reduce the steroids as clinically allowed. The patient seems better. 2. Chronic obstructive pulmonary disease exacerbation is better. She is offering to later doing okay with inhaled and IV bronchodilators plus Mucomyst nebulizers twice a day. Continue Singulair. Continue Protonix, DuoNeb, Brovana and Pulmicort. 3. The patient has chronic back pain, chronic osteoarthritis. Continue Percocet p.r.n. 4. Chronic anxiety. Seen by Psychiatrist. Continue Xanax three times a day. 5. Chronic renal failure. Creatinine runs 1.8 to 2 and as far as I have seen the patient, seems to be doing okay. We will continue current therapy. We will address with the folder and notcher, Dr. Rucker, on the case. We will follow up his recommendations. Continue current therapy. 6. breast cancer non compliant seen by oncologist dr Zelaya before she refused chemotherapy. Sloan Sosa MD [facility]
--- NOTE | 2018-03-15 14:23 | CP.PCM.PN ---
Subjective - Date & Time of Evaluation Date of Evaluation: 03/15/18 Time of Evaluation: 14:22 - Subjective Subjective: Nephrology Consultation Note: Assessment: Stable Acute Kidney Injury (N17.9) AMS, CO2 narcosis and acute on chronc respi acidosis with respi failure with renal compensation rt large pleural effusion with chest wall mass ? malignant (hx of breast CA) Diabetic chronic Kidney Disease (E11.22) Hypertensive Chronic Kidney Disease (I12.9) Chronic Kidney Disease (N18.3) Stage 3 with 1200 mg proteinuria and 400 mg albuminuria (R80.9) likely due to DM/HTN Anemia (D64.9) COPD/asthma, active smoker, breast cancer s/p surgery 2 years ago active smoker Plan No acute need for renal replacement therapy at this time. Hypertension control with meds as ordered. Maintain hemodynamics stable. Avoid hypotension. Patient not on ACEI/ARB due to recent DAHLIA, now stable cr hence added losartan 50 mg/d Monitor Input/Output, daily weights and renal function with basic metabolic panel low Na and low K diet consider heme/onc eval for malignancy. will defer use of ORVILLE in view of her recent breast malignancy with concerns for mets repeat renal sono in 6 months for cyst follow up started iron, MVI and weekly Vit D lasix 40 mg daily resume once glucose control better pulmonary, ID following Dose meds/antibiotics for reduced GFR. Avoid fleets enema/magnesium based laxatives. Avoid nephrotoxins/NSAIDs/ iodinated contrast (unless needed e mergently) Glycemic control. pt need to stop smoking Further work up/management as per primary team Thanks for allowing me to participate in care of your patient. Will follow patient with you. Please call if any Qs. had d/w team Dr Marco Antonio Chatman Office: [phone] Chief Complaint; none Reason for consult: Acute Kidney Injury HPI: Pt is a 57 F with hx of diabetes Mellitus ( years), hypertension (years) COPD/asthma, active smoker, breast cancer s/p surgery 2 years ago but didn't complete treatment, anemia, CKD stage 3 with baseline cr 1.8 mg/dL initially admitted with AMS, CO2 narcosis and respi failure, rt large pleural effusion now seen for DAHLIA Denies OTC/herbal meds or NSAIDs No recent iodinated contrast exposure. No obvious episodes of low BP. ROS: pt is a poor historian and overall hx is limited from her. denies CP improved SOB today. no urine complaints Physical Examination: General Appearance: Comfortable, in no acute respiratory distress, co-operative . Vitals reviewed and noted as below Head; Atraumatic, normocephalic ENT: no ulcers no thrush. Tongue is midline. Oropharynx: no rash or ulcers. she is hard of hearing EYES: Pupils are equal, round and reactive to light accommodation. Eye muscles and extraocular movement intact. Sclera is anicteric. Neck; supple no lymphadenopathy, no thyromegaly or bruit Lungs: Normal respiratory rate/effort. Breath sounds reduced at base with b/l wheezing Heart: Normal rate. s1s2 normal. No rub or gallop. Extremities: 1+ edema. No varicose veins Neurological: Patient is alert, awake and oriented to person, place and time. No focal deficit. Strength bilateral appropriate and equal Skin: Warm and dry. Normal turgor. No rash. Palpitation: Normal elasticity for age Abdomen: Abdomen is soft. Bowel sounds +. There is no abdominal tenderness, no guarding/rigidity no organomegaly Psych: lack insight and normal affect/mood MSK: no joint tenderness or swelling. Digits and nails normal, no deformity : kidney or bladder not palpable Labs/imaging reviewed. Past medical history, past surgical history, family history, social history, allergy reviewed and noted as below Family hx: no hx of CKD. Rest non-contributory renal imaging: b/l cysts echo normal LVEF TSAt 26% ferritin 45 Serum FLC assay WNL ABDIRIZAK neg PTH 154 Vit D 17 Objective - Vital Signs/Intake and Output Vital Signs (last 24 hours): Temp Pulse Resp BP Pulse Ox 98.4 F 80 20 122/50 L 100 03/15/18 12:00 03/15/18 12:00 03/15/18 12:00 03/15/18 12:00 03/15/18 06:00 Intake and Output: 03/15/18 03/15/18 06:59 18:59 Intake Total 2160 Output Total 2450 Balance -290 - Medications Medications: Current Medications Acetylcysteine (Acetylcysteine 20%) 3 ml PO BID [facility] Last Admin: 03/15/18 10:46 Dose: 3 ml Albuterol/Ipratropium (Duoneb 3 Mg/0.5 Mg (3 Ml) Ud) 3 ml IH [id number] PRN PRN Reason: Shortness of Breath Last Admin: 03/13/18 12:36 Dose: 3 ml Alprazolam (Xanax) 0.5 mg PO TID PRN; Protocol PRN Reason: Anxiety Last Admin: 03/14/18 22:14 Dose: 0.5 mg Arformoterol Tartrate (Brovana) 15 mcg IH [id number] [facility] Last Admin: 03/15/18 07:31 Dose: Not Given Aspirin (Aspirin Chewable) 81 mg PO DAILY [facility] Last Admin: 03/15/18 10:49 Dose: 81 mg Atorvastatin Calcium (Lipitor) 10 mg PO DAILY [facility] Last Admin: 03/15/18 11:23 Dose: 10 mg Budesonide (Pulmicort Respules) 0.5 mg IH [id number] [facility] Last Admin: 03/15/18 07:31 Dose: Not Given Doxycycline Hyclate (Doryx) 100 mg PO Q12 [facility]; Protocol Last Admin: 03/15/18 11:21 Dose: 100 mg Ergocalciferol (Drisdol 50,000 Intl Units Cap) 1 cap PO Q7D [facility] Last Admin: 03/12/18 09:55 Dose: 1 cap Ferrous Gluconate (Fergon) 324 mg PO TID [facility] Last Admin: 03/15/18 11:21 Dose: 324 mg Heparin Sodium (Porcine) (Heparin) 5,000 units SC 0600,1400,2200 [facility]; Protocol Last Admin: 03/15/18 05:22 Dose: 5,000 units Insulin Detemir (Levemir) 15 unit SC [facility] Insulin Human Lispro (Humalog) 15 units SC AC [facility] Last Admin: 03/15/18 09:30 Dose: 15 units Insulin Human Lispro (Humalog) 20 units SC AC [facility] Insulin Human Regular (Humulin R Low) 0 units SC ACHS [facility]; Protocol Last Admin: 03/15/18 09:30 Dose: 4 units Losartan Potassium (Cozaar) 50 mg PO DAILY [facility] Last Admin: 03/15/18 10:51 Dose: 50 mg Montelukast Sodium (Singulair) 10 mg PO [facility] Last Admin: 03/14/18 22:15 Dose: 10 mg Oxycodone/Acetaminophen (Percocet 5/325 Mg Tab) 1 tab PO Q8H PRN PRN Reason: Pain, moderate (4-7) Stop: 03/16/18 18:40 Last Admin: 03/15/18 09:30 Dose: 1 tab Pantoprazole Sodium (Protonix Ec Tab) 40 mg PO 0600 [facility] Last Admin: 03/15/18 05:22 Dose: 40 mg Prednisone (Prednisone Tab) 20 mg PO DAILY [facility] Last Admin: 03/15/18 11:23 Dose: 20 mg Vitamin B Complex/Vit C/Folic Acid (Nephro-Enrrique) 1 tab PO 0800 [facility] Last Admin: 03/15/18 11:23 Dose: 1 tab - Labs Labs: 03/15/18 05:30 03/15/18 05:30 PT 12.5 SECONDS (9.4-12.5) 03/08/18 13:30 INR 1.09 03/08/18 13:30 APTT 38.8 Seconds (25.1-36.5) H 03/08/18 13:30
--- NOTE | 2018-03-15 19:33 | CON ---
DATE: 03/15/2018 CONSULT REQUESTED BY: Dr. Sosa REASON FOR CONSULTATION: Breast cancer. HISTORY OF PRESENT ILLNESS: Ms. Granado is a 57-year-old female, admitted to the hospital with respiratory distress. She had prior admission in January with narcotic overdose. She has history of breast cancer diagnosed in 2016 with a left breast mass. She has been noncompliant. She has refused to undergo surgery. She refused neoadjuvant chemotherapy for the breast cancer. CT chest done during this admission showed possible extension of the breast mass into the chest wall. She also has uncontrolled diabetes mellitus, COPD, and also chronic back pain. She has repeatedly refused metastatic staging workup during the last admission and previous other admissions. She did not follow up in the office as advised on prior admission to [facility]. PAST MEDICAL HISTORY: Breast cancer, COPD, anxiety, renal insufficiency and noncompliance. PAST SURGICAL HISTORY: None. ALLERGIES: LEVAQUIN AND NYSTATIN. SOCIAL HISTORY: Lives with the son. History of drug overdose. REVIEW OF SYSTEMS: Respiratory distress, breast mass, and chronic back pain. Rest of 12-point review of systems reviewed and negative. PHYSICAL EXAMINATION GENERAL: Comfortable in bed, in no acute distress. VITAL SIGNS: Temperature 98.7, heart rate 80 per minute, blood pressure 150/60, respiratory rate 20 per minute. HEENT: Pallor positive. NECK: No lymphadenopathy. CHEST: Clear to auscultation bilaterally. Decreased breath sounds bilaterally. CARDIOPULMONARY: S1, S2 normal. No murmur. No gallop. ABDOMEN: Soft, nontender and no hepatosplenomegaly. EXTREMITIES: No edema. NEUROLOGIC: Alert and oriented. LABORATORY DATA: White count 7.7, hemoglobin 9.1, hematocrit 31.2, platelets 254. Sodium 136, potassium 4.6, creatinine 2.2. MEDICATIONS: Reviewed. ASSESSMENT AND PLAN: 1. Breast cancer, unknown stage, possible stage IV now, diagnosed in 2016 and did not want to get treated. CT chest showing extension into the chest wall. I would recommend palliative care services for her because she has refused treatments since 2016. She has also declined surgery. She might not be a surgical candidate now due to the chest wall extension on the tumor. She was offered treatment and work up during my discussion with her. She asked me if she is going to of breast cancer. I told her "yes, if she is not considering treatment". She seems to be not sure if she wants to be treated. She did mention " cut it out, I am ready now " I advised her that she might not be a surgical candidate now due to advanced disease. 2. Chronic obstructive pulmonary disease. Follow up with Dr. Rucker. 3. Chronic back pain. Management as per Dr. Sosa. 4. Chronic renal insufficiency, stable. I discussed with the patient regarding treatment. If she is agreeable to treatment, will consider PET scan. Thank you Dr. Sosa for allowing us to participate in Ms. Granado's care. Stephanie Zelaya MD MTDJuan
[2018-03-15] MEDS: Insulin Detemir 100 units/ml Vial (Levemir) SC SCH (22:03)
[2018-03-16] MEDS: Pantoprazole 40 mg EC Tab PO SCH (05:32)
[2018-03-16 06:28] LABS: BASO # 0.02 K/mm3 (0.0-2.0); BASO % 0.1 % (0.0-3.0); EOS # 0.1 (0.0-0.7); EOS % 0.4 % (1.5-5.0); GRAN # 10.58 (1.4-6.5); LYMPH # 1.8 (1.2-3.4); LYMPH % 13.5 % (22.0-35.0); MEAN CELL VOLUME 94.4 fl (80.0-105.0); MEAN CORPUSCULAR HEMOGLOBIN 27.9 pg (25.0-35.0); MEAN CORPUSCULAR HGB CONC 29.5 g/dl (31.0-37.0); MEAN PLATELET VOLUME 11.8 fl (7.0-11.0); MONO # 1.1 (0.1-0.6); RBC 3.59 10^6/uL (3.5-6.1); WHITE BLOOD COUNT 13.6 10^3/uL (4.5-11.0)
[2018-03-16 07:16] LABS: ALB/GLOB RATIO 1.3 (1.1-1.8); ALBUMIN 3.3 g/dL (3.0-4.8); CALCIUM 7.7 mg/dL (8.4-10.5)
[2018-03-16] MEDS: Arformoterol 15 mcg/2 ml Inh Sol IH SCH ×2 (07:23→19:23)
[2018-03-16] MEDS: Budesonide 0.5 mg/2 ml Inhal Susp UD IH SCH ×2 (07:23→19:23)
--- NOTE | 2018-03-16 08:04 | CP.PCM.PN ---
Subjective - Date & Time of Evaluation Date of Evaluation: 03/16/18 Time of Evaluation: 08:02 - Subjective Subjective: Subjective: Nephrology Consultation Note: Assessment: Stable Acute Kidney Injury (N17.9) AMS, CO2 narcosis and acute on chronc respi acidosis with respi failure with renal compensation rt large pleural effusion with chest wall mass ? malignant (hx of breast CA) Diabetic chronic Kidney Disease (E11.22) Hypertensive Chronic Kidney Disease (I12.9) Chronic Kidney Disease (N18.3) Stage 3 with 1200 mg proteinuria and 400 mg albuminuria (R80.9) likely due to DM/HTN Anemia (D64.9) COPD/asthma, active smoker, breast cancer s/p surgery 2 years ago active smoker Plan No acute need for renal replacement therapy at this time. Renal function remains stable Hypertension control with meds as ordered. Monitor Input/Output, daily weights and renal function with basic metabolic panel low Na and low K diet consider heme/onc eval for malignancy. will defer use of ORVILLE in view of her recent breast malignancy with concerns for mets repeat renal sono in 6 months for cyst follow up cont vit d and iron Dose meds/antibiotics for reduced GFR. Avoid fleets enema/magnesium based laxatives. Avoid nephrotoxins/NSAIDs/ iodinated contrast (unless needed emergently) Glycemic control. pt need to stop smoking Further work up/management as per primary team S: seen and examined no acute events o/n no complaints Physical Examination: General Appearance: Comfortable, in no acute respiratory distress, co-operative . Vitals reviewed and noted as below Head; Atraumatic, normocephalic ENT: no ulcers no thrush. Tongue is midline. Oropharynx: no rash or ulcers. she is hard of hearing EYES: Pupils are equal, round and reactive to light accommodation. Eye muscles and extraocular movement intact. Sclera is anicteric. Neck; supple no lymphadenopathy, no thyromegaly or bruit Lungs: Normal respiratory rate/effort. Breath sounds reduced at base with b/l wheezing Heart: Normal rate. s1s2 normal. No rub or gallop. Extremities: 1+ edema. No varicose veins Neurological: Patient is alert, awake and oriented to person, place and time. No focal deficit. Strength bilateral appropriate and equal Skin: Warm and dry. Normal turgor. No rash. Palpitation: Normal elasticity for age Abdomen: Abdomen is soft. Bowel sounds +. There is no abdominal tenderness, no guarding/rigidity no organomegaly Psych: lack insight and normal affect/mood MSK: no joint tenderness or swelling. Digits and nails normal, no deformity : kidney or bladder not palpable Labs/imaging reviewed. Past medical history, past surgical history, family history, social history, allergy reviewed and noted as below Family hx: no hx of CKD. Rest non-contributory renal imaging: b/l cysts echo normal LVEF TSAt 26% ferritin 45 Serum FLC assay WNL ABDIRIZAK neg PTH 154 Vit D 17 Objective - Vital Signs/Intake and Output Vital Signs (last 24 hours): Temp Pulse Resp BP Pulse Ox 97.8 F 84 19 112/52 L 98 03/16/18 06:00 03/16/18 06:00 03/16/18 06:00 03/16/18 06:00 03/16/18 06:00 Intake and Output: 03/16/18 03/16/18 06:59 18:59 Intake Total 480 Output Total 800 Balance -320 - Medications Medications: Current Medications Acetylcysteine (Acetylcysteine 20%) 3 ml PO BID [facility] Last Admin: 03/15/18 18:42 Dose: 3 ml Albuterol/Ipratropium (Duoneb 3 Mg/0.5 Mg (3 Ml) Ud) 3 ml IH [id number] PRN PRN Reason: Shortness of Breath Last Admin: 03/13/18 12:36 Dose: 3 ml Alprazolam (Xanax) 0.5 mg PO TID PRN; Protocol PRN Reason: Anxiety Last Admin: 03/15/18 22:01 Dose: 0.5 mg Arformoterol Tartrate (Brovana) 15 mcg IH [id number] [facility] Last Admin: 03/16/18 07:23 Dose: 15 mcg Aspirin (Aspirin Chewable) 81 mg PO DAILY [facility] Last Admin: 03/15/18 10:49 Dose: 81 mg Atorvastatin Calcium (Lipitor) 10 mg PO DAILY [facility] Last Admin: 03/15/18 11:23 Dose: 10 mg Budesonide (Pulmicort Respules) 0.5 mg IH [id number] [facility] Last Admin: 03/16/18 07:23 Dose: 0.5 mg Doxycycline Hyclate (Doryx) 100 mg PO Q12 [facility]; Protocol Last Admin: 03/15/18 22:01 Dose: 100 mg Ergocalciferol (Drisdol 50,000 Intl Units Cap) 1 cap PO Q7D [facility] Last Admin: 03/12/18 09:55 Dose: 1 cap Ferrous Gluconate (Fergon) 324 mg PO TID [facility] Last Admin: 03/15/18 18:42 Dose: 324 mg Heparin Sodium (Porcine) (Heparin) 5,000 units SC 0600,1400,2200 [facility]; Protocol Last Admin: 03/16/18 05:32 Dose: 5,000 units Insulin Detemir (Levemir) 15 unit SC HS [facility] Last Admin: 03/15/18 22:03 Dose: 15 unit Insulin Human Lispro (Humalog) 15 units SC AC [facility] Last Admin: 03/15/18 18:43 Dose: Not Given Insulin Human Lispro (Humalog) 20 units SC AC [facility] Last Admin: 03/15/18 17:55 Dose: 20 units Insulin Human Regular (Humulin R Low) 0 units SC [facility]; Protocol Last Admin: 03/15/18 22:39 Dose: Not Given Losartan Potassium (Cozaar) 50 mg PO DAILY [facility] Last Admin: 03/15/18 10:51 Dose: 50 mg Montelukast Sodium (Singulair) 10 mg PO [facility] Last Admin: 03/15/18 22:02 Dose: 10 mg Oxycodone/Acetaminophen (Percocet 5/325 Mg Tab) 1 tab PO Q8H PRN PRN Reason: Pain, moderate (4-7) Stop: 03/16/18 18:40 Last Admin: 03/15/18 22:02 Dose: 1 tab Pantoprazole Sodium (Protonix Ec Tab) 40 mg PO 0600 [facility] Last Admin: 03/16/18 05:32 Dose: 40 mg Prednisone (Prednisone Tab) 20 mg PO DAILY [facility] Last Admin: 03/15/18 11:23 Dose: 20 mg Vitamin B Complex/Vit C/Folic Acid (Nephro-Enrrique) 1 tab PO 0800 [facility] Last Admin: 03/15/18 11:23 Dose: 1 tab - Labs Labs: 03/16/18 06:00 03/16/18 06:00 PT 12.5 SECONDS (9.4-12.5) 03/08/18 13:30 INR 1.09 03/08/18 13:30 APTT 38.8 Seconds (25.1-36.5) H 03/08/18 13:30
[2018-03-16] MEDS: Insulin Lispro 1 UNITS/0.01 ML SC SCH ×4 (08:07→17:49)
[2018-03-16] MEDS: Insulin Reg-LOW-Coverage SC SCH ×4 (08:15→21:39)
[2018-03-16] MEDS: Multivitamin Vitamin B Complex (Nephro-Vite) Tab PO SCH (08:16)
--- NOTE | 2018-03-16 09:06 | CP.PCM.PN ---
<Imelda Greer - Last Filed: 03/16/18 09:06> Subjective - Date & Time of Evaluation Date of Evaluation: 03/16/18 Time of Evaluation: 09:06 - Subjective Subjective: ID progress notes PGY-[address] Damon Objective - Vital Signs/Intake and Output Vital Signs (last 24 hours): Temp Pulse Resp BP Pulse Ox 97.8 F 84 19 112/52 L 98 03/16/18 06:00 03/16/18 06:00 03/16/18 06:00 03/16/18 06:00 03/16/18 06:00 Intake and Output: 03/16/18 03/16/18 06:59 18:59 Intake Total 480 Output Total 800 Balance -320 - Medications Medications: Current Medications Acetylcysteine (Acetylcysteine 20%) 3 ml PO BID [facility] Last Admin: 03/15/18 18:42 Dose: 3 ml Albuterol/Ipratropium (Duoneb 3 Mg/0.5 Mg (3 Ml) Ud) 3 ml IH [id number] PRN PRN Reason: Shortness of Breath Last Admin: 03/13/18 12:36 Dose: 3 ml Alprazolam (Xanax) 0.5 mg PO TID PRN; Protocol PRN Reason: Anxiety Last Admin: 03/15/18 22:01 Dose: 0.5 mg Arformoterol Tartrate (Brovana) 15 mcg IH [id number] [facility] Last Admin: 03/16/18 07:23 Dose: 15 mcg Aspirin (Aspirin Chewable) 81 mg PO DAILY [facility] Last Admin: 03/15/18 10:49 Dose: 81 mg Atorvastatin Calcium (Lipitor) 10 mg PO DAILY [facility] Last Admin: 03/15/18 11:23 Dose: 10 mg Budesonide (Pulmicort Respules) 0.5 mg IH [id number] [facility] Last Admin: 03/16/18 07:23 Dose: 0.5 mg Doxycycline Hyclate (Doryx) 100 mg PO Q12 [facility]; Protocol Last Admin: 03/15/18 22:01 Dose: 100 mg Ergocalciferol (Drisdol 50,000 Intl Units Cap) 1 cap PO Q7D [facility] Last Admin: 03/12/18 09:55 Dose: 1 cap Ferrous Gluconate (Fergon) 324 mg PO TID [facility] Last Admin: 03/15/18 18:42 Dose: 324 mg Heparin Sodium (Porcine) (Heparin) 5,000 units SC 0600,1400,2200 [facility]; Protocol Last Admin: 03/16/18 05:32 Dose: 5,000 units Insulin Detemir (Levemir) 15 unit SC HS [facility] Last Admin: 03/15/18 22:03 Dose: 15 unit Insulin Human Lispro (Humalog) 20 units SC AC [facility] Last Admin: 03/16/18 08:15 Dose: 20 units Insulin Human Regular (Humulin R Low) 0 units SC ACHS [facility]; Protocol Last Admin: 03/16/18 08:15 Dose: 1 units Losartan Potassium (Cozaar) 50 mg PO DAILY [facility] Last Admin: 03/15/18 10:51 Dose: 50 mg Montelukast Sodium (Singulair) 10 mg PO HS [facility] Last Admin: 03/15/18 22:02 Dose: 10 mg Oxycodone/Acetaminophen (Percocet 5/325 Mg Tab) 1 tab PO Q8H PRN PRN Reason: Pain, moderate (4-7) Stop: 03/16/18 18:40 Last Admin: 03/15/18 22:02 Dose: 1 tab Pantoprazole Sodium (Protonix Ec Tab) 40 mg PO 0600 [facility] Last Admin: 03/16/18 05:32 Dose: 40 mg Prednisone (Prednisone Tab) 20 mg PO DAILY [facility] Last Admin: 03/15/18 11:23 Dose: 20 mg Vitamin B Complex/Vit C/Folic Acid (Nephro-Enrrique) 1 tab PO 0800 [facility] Last Admin: 03/16/18 08:16 Dose: 1 tab - Labs Labs: 03/16/18 06:00 03/16/18 06:00 PT 12.5 SECONDS (9.4-12.5) 03/08/18 13:30 INR 1.09 03/08/18 13:30 APTT 38.8 Seconds (25.1-36.5) H 03/08/18 13:30 Assessment and Plan - Assessment and Plan (Free Text) Plan: Ms Granado, 57F with multiple admissions, long-term active smoker, end-stage COPD, breast cancer, diabetes admitted with AMS and hypercapnic respiratory failure due to large R pleural effusion with mediastinal shift and lobar atelectasis, rs/p intubation, downgraded from ICU to telemetry, clinically improving. She had completed 5 days of doxycycline and cefepime for R sided pleural effusion rule out healthcare-associated pneumonia, concerned about malignancy. Leukopenia and mild fever resolved. Antibiotics discontinued (on 03/13). New onset leukocytosis 13.6, likely due to started prednisone on 03/15 Healthcare associated pneumonia - resolved large R pleural effusion - resolved Asymptomatic bacteriuria s/p 5 days of cefepime DAHLIA on CKD - improving from 2.6 to 2.2, stablizing Allergy to levofloxacin and nystatin Breast cancer, unknown stage COPD Plan: - Observe off antibiotics. Monitor clinical course. S/p doxy and cefepime (x 5 days) - Sugar control per primary - DAHLIA management per nephro. Renal dose medicine - At risk for nosocomial infection - Oncology is following pt, recommended palliative since pt refuses chemo and surgery in the past Imaging/Culture: - Urine Cx (morfin) Enterobacter aerogenes - Blood culture: neg x 5d - C diff: neg - MRSA: neg - CT chest w/o contrast (03/11): Volume loss in R hemithorax with partial loculated subpulmonic effusion. progressive consolidative changes. R breast ca likely extended into chest wall - CXR (03/13): No change as compared to 03/11 - CXR (03/14) stable moderate R pleural effusion - procacl = 0.14; negative legionella/strep pneumo <Chung Damon S - Last Filed: 03/16/18 13:24> Objective - Vital Signs/Intake and Output Vital Signs (last 24 hours): Temp Pulse Resp BP Pulse Ox 98.3 F 80 18 128/66 98 03/16/18 12:00 03/16/18 12:00 03/16/18 12:00 03/16/18 12:00 03/16/18 06:00 Intake and Output: 03/16/18 03/16/18 06:59 18:59 Intake Total 480 Output Total 800 Balance -320 - Medications Medications: Current Medications Acetylcysteine (Acetylcysteine 20%) 3 ml PO BID [facility] Last Admin: 03/16/18 11:20 Dose: 3 ml Albuterol/Ipratropium (Duoneb 3 Mg/0.5 Mg (3 Ml) Ud) 3 ml IH [id number] PRN PRN Reason: Shortness of Breath Last Admin: 03/13/18 12:36 Dose: 3 ml Alprazolam (Xanax) 0.5 mg PO TID PRN; Protocol PRN Reason: Anxiety Last Admin: 03/16/18 09:22 Dose: 0.5 mg Arformoterol Tartrate (Brovana) 15 mcg IH [id number] [facility] Last Admin: 03/16/18 07:23 Dose: 15 mcg Aspirin (Aspirin Chewable) 81 mg PO DAILY [facility] Last Admin: 03/16/18 09:21 Dose: 81 mg Atorvastatin Calcium (Lipitor) 10 mg PO DAILY [facility] Last Admin: 03/16/18 09:21 Dose: 10 mg Budesonide (Pulmicort Respules) 0.5 mg IH [id number] [facility] Last Admin: 03/16/18 07:23 Dose: 0.5 mg Doxycycline Hyclate (Doryx) 100 mg PO Q12 [facility]; Protocol Last Admin: 03/16/18 09:22 Dose: 100 mg Ergocalciferol (Drisdol 50,000 Intl Units Cap) 1 cap PO Q7D [facility] Last Admin: 03/12/18 09:55 Dose: 1 cap Ferrous Gluconate (Fergon) 324 mg PO TID [facility] Last Admin: 03/16/18 09:22 Dose: 324 mg Heparin Sodium (Porcine) (Heparin) 5,000 units SC 0600,1400,2200 [facility]; Protocol Last Admin: 03/16/18 05:32 Dose: 5,000 units Insulin Detemir (Levemir) 15 unit SC HS [facility] Last Admin: 03/15/18 22:03 Dose: 15 unit Insulin Human Lispro (Humalog) 20 units SC AC [facility] Last Admin: 03/16/18 11:19 Dose: Not Given Insulin Human Regular (Humulin R Low) 0 units SC ACHS [facility]; Protocol Last Admin: 03/16/18 11:18 Dose: Not Given Losartan Potassium (Cozaar) 50 mg PO DAILY [facility] Last Admin: 03/16/18 09:22 Dose: 50 mg Montelukast Sodium (Singulair) 10 mg PO HS [facility] Last Admin: 03/15/18 22:02 Dose: 10 mg Oxycodone/Acetaminophen (Percocet 5/325 Mg Tab) 1 tab PO Q8H PRN PRN Reason: Pain, moderate (4-7) Stop: 03/16/18 18:40 Last Admin: 03/16/18 09:21 Dose: 1 tab Pantoprazole Sodium (Protonix Ec Tab) 40 mg PO 0600 [facility] Last Admin: 03/16/18 05:32 Dose: 40 mg Prednisone (Prednisone Tab) 20 mg PO DAILY [facility] Last Admin: 03/16/18 09:22 Dose: 20 mg Vitamin B Complex/Vit C/Folic Acid (Nephro-Enrrique) 1 tab PO 0800 [facility] Last Admin: 03/16/18 08:16 Dose: 1 tab - Labs Labs: 03/16/18 06:00 03/16/18 06:00 PT 12.5 SECONDS (9.4-12.5) 03/08/18 13:30 INR 1.09 03/08/18 13:30 APTT 38.8 Seconds (25.1-36.5) H 03/08/18 13:30 Assessment and Plan - Assessment and Plan (Free Text) Plan: Infectious diseases Attending Physician Attestation Patient seen and examined, discussed with medical sonographer. I have reviewed the patient's history of present illness, past medical, social, personal and family histories, pertinent physical exam findings, course so far in this hospital admission, pertinent laboratory and imaging results. I agree with the above findings, assessment and plan. In addition, patient has completed 5 days of Doxycycline and cefepime for patient with right sided pleural effusion R/O pneumonia. Also concerned about malignancy and Heme/Onc is following. Will continue to monitor off antibiotics. Pleural effusion has decreased. Patient with asymptomatic bacteriuria and will continue to monitor off antibiotics.
[2018-03-16] MEDS: Oxycodone/Acetaminophen 5/325 mg Tab PO PRN ×3 (09:21→23:12)
--- NOTE | 2018-03-16 10:04 | PN ---
DATE: 03/15/2018 SUBJECTIVE: The patient is still complaining of some mild short of breath and wheeze on cough. She still also has sugar, is high in the 400s, but she is better than before. PHYSICAL EXAMINATION: VITAL SIGNS: As follows, temperature 97.4, heart rate 85, blood pressure 140/55 and respirations 19. She is on 4 liters nasal cannula. HEAD AND NECK: Normal. No JVD. No thyromegaly. CHEST: Diminished breath sounds more on the right than left. CARDIAC: First sound and second sound normal. ABDOMEN: Soft and nontender. EXTREMITIES: Shows mild edema. NEUROLOGIC: She is generally weak, but otherwise nonfocal. She is alert, awake and oriented x3. LABORATORY DATA: White count 10.8, hemoglobin 9.6, hematocrit 32.9 and platelets 219. Chemistry; sodium 136, potassium 3.8, chloride 99, bicarb 30, BUN 79, creatinine 2.1, blood sugar 459 and calcium 6.8. Liver enzymes is normal. IMPRESSION: 1. Acute chronic obstructive pulmonary disease exacerbation. The patient has severe chronic obstructive pulmonary disease, oxygen dependence at home and she currently on the steroids p.o. We will monitor her status and will follow up with Dr. Rucker. Continue inhaled bronchodilator, Mucomyst,and prednisone. 2. Chronic renal failure. The patient has renal insufficiency with creatinine of 2, probably diabetic nephropathy. She is poorly compliant with her insulin. We will follow up with mapping supervisor Dr. Marco Antonio Chatman. 3. Chest wall mass. refused surgery. The patient has a breast cancer advanced, she is noncompliant, does not want chemotherapy and has been advised by Dr. Zelaya in the past several times to get into compliance, but she refused. We will continue supportive care, palliative care and we will follow up on that. 4. Pleural effusions, could being secondary to heart failure, could be due to malignancy. We will discuss with Dr. Rucker how Pulmonary macario she is doing and clinically. 5. Insulin-dependant diabetes. We will increase her insulin to 20 units before each meal and we will continue Levemir as it is. We will see how is her blood sugar in the morning, we will recheck it in the morning. 6. Chronic spine pain and chronic back pain. We will continue Percocet p.r.n., make her comfortable. 7. Chronic anxiety, continue Xanax p.r.n. The patient also seen by psychiatrist in the past. 8. General weakness, getting physical therapy. PLAN: Continue current therapy. Followup clinically. Prognosis is poor, with multiple medical problems and advanced cancer and we will continue palliative care and supportive care for her. We will discuss further. Sloan Sosa MD MTDJuan
[2018-03-16] MEDS: Acetylcysteine 20% Inhal Soln (4ml) PO SCH ×2 (11:20→17:37)
--- NOTE | 2018-03-16 11:28 | PN ---
DATE: 03/16/2018 PULMONARY PROGRESS NOTE REFERRING PHYSICIAN: Sloan Sosa MD SUBJECTIVE: The patient is sitting up at bedside. No acute distress. Reports she still has cough, shortness of breath with slight improvement. No headache, rhinitis, chest pain, abdominal pain, nausea, vomiting, diarrhea, leg pain or leg swelling reported. OBJECTIVE: GENERAL: No acute distress. VITAL SIGNS: Blood pressure 134/71, pulse 87, temperature 97.8 and oxygen saturation 98%. HEENT: Moist mucous membranes. Crowded airway. Mallampati score of 4. NECK: Supple. No JVD. LUNGS: Scattered rhonchi bilaterally. Diminished breath sounds on the right. CARDIOVASCULAR: S1 and S2, audible. ABDOMEN: Soft and nontender. No distention. No organomegaly. EXTREMITIES: No bilateral lower extremity edema. NEUROLOGICAL: Awake, alert and verbal. Follows commands. MEDICATIONS: Reviewed. Mucomyst 3 mL twice a day, DuoNeb 3 mL inhalation every 6 hours p.r.n., Xanax 0.5 mg three times a day p.r.n., Brovana 15 mcg every 12 hours, aspirin 81 mg daily, Lipitor 10 mg daily, Pulmicort 0.5 mg every 12 hours, doxycycline 100 mg every 12 hours, ergocalciferol 50,000 units every 7 days, ferrous gluconate 324 mg three times a day, heparin 5000 units three times a day, Levemir 15 units subcutaneously at bedtime, Humalog 20 units subcutaneously a.c., Humalog R sliding scale a.c. and at bedtime, Cozaar 50 mg p.o. daily, Singulair 10 mg at bedtime, Percocet 5/325 mg one tab every 8 hours p.r.n. for moderate pain, Protonix 40 mg daily, prednisone 20 mg daily and Nephro-Enrrique one tab daily. LABORATORY DATA: Reviewed. WBC 13.6, RBC 3.59, hemoglobin 10, hematocrit 33.9 and platelets 261. Sodium 138, potassium 4.3, chloride 101, carbon dioxide 31, anion gap 10, BUN 77, creatinine 2.2, GFR 23, random glucose 171, calcium 7.7, total bilirubin 0.3, AST 25, ALT 21, alkaline phosphatase 63, total protein 5.9, albumin 3.3, globulin 2.6 and albumin-globulin ratio of 1.3. IMPRESSION AND PLAN: Chronic obstructive lung disease component of hypoventilation syndrome; history of breast cancer, noncompliant with treatment and followup; recurrent urinary tract infection; anemia, diabetes and chronic renal insufficiency. Continue antibiotic therapy. Continue bronchodilators, steroid, gastric prophylaxis, deep venous thrombosis prophylaxis. Continue incentive spirometry use. Continue aggressive pulmonary toileting. Leukotriene inhibitors. Continue chest physical therapy. Dr. Zelaya's note appreciated. The patient to have Palliative Care consult. This patient was seen and examined with Dr. Rucker. Discussed assessment and plan as described above. Thank you for this consult and we will follow with you. Didier Dennis APN Lisa Rucker MD
[2018-03-16] MEDS: Albuterol-Ipratrop 3 mg / 0.5 (3 ml) UD IH PRN ×2 (13:45→19:23)
[2018-03-16] MEDS: Insulin Detemir 100 units/ml Vial (Levemir) SC SCH (21:34)
[2018-03-16] MEDS ORDERED: Insulin Regular 1 UNITS/0.01 ML ML SC ONE (21:52)
--- NOTE | 2018-03-17 03:34 | PN ---
DATE: 03/16/2018 SUBJECTIVE: The patient is sitting in the bed. She is alert and awake. She has difficulty hearing, but she understands me and able to communicate with me well. She has no chest pain. She is afebrile and her breathing is comfortable on oxygen 2 L. PHYSICAL EXAMINATION: VITAL SIGNS: Temperature 98.3, heart rate 80, blood pressure 128/66, respirations 18, saturating on 4 L nasal cannula low 90s. HEAD AND NECK: Normal. No JVD. No thyromegaly. CHEST: Diminished breath sounds, more on the right than left. CARDIAC: First sound and second sounds normal. ABDOMEN: Soft, obese, and nontender. EXTREMITIES: Trace edema. NEUROLOGIC: Normal. LABORATORY STUDY: The patient has a white count of 13.6, hemoglobin 10, hematocrit 33.9, platelets 261. Chemistry shows sodium 138, potassium 4.3, chloride 101, bicarb 31, BUN 77, creatinine 2.2, blood sugar 171, and calcium 7.7. She had a CT of the chest as per Dr. Rucker mentioned in the past that she does have some atelectasis due to poor inspiration. IMPRESSION AND PLAN: 1. Acute chronic obstructive pulmonary disease exacerbation. Continue steroids. Continue inhaled bronchodilators. Continue Mucomyst, chest physical therapy. The patient does have end-stage lung disease, on oxygen at home 2 liters nasal cannula, saturation in mid 80s without any oxygen. The patient needs continuous oxygen therapy. She has severe emphysema, chronic obstructive pulmonary disease. We will continue current therapy. 2. Breast cancer with bone metastasis, chest wall mass. Discussed with specialist with Dr. Rucker for pulmonary macario. If she can tolerate radiation therapy, we recommend again this because of severity of her underlying lung disease which may get worse and may put her in problems more so on breast cancer. The patient declines surgery and chemotherapy before. She does not want any chemotherapy or surgery at this time also. She is advanced nonsurgical candidate. possibly palliative radiation therapy; however, she does not have any chest wall pain, and she has severe lung disease which may get worse her radiation, so we will hold her from symptomatic treatment and will continue supportive care. 3. Chronic renal failure, probably diabetes and hypertension related. Continue current therapy. 4. Insulin-dependent diabetes. Continue insulin blood sugar reading is 150s. 5. Chronic back pain, spinal osteoarthritis. 6. Chronic anxiety. Continue Xanax. Continue current therapy. Follow up clinically. Discussed with the patient about her conditions in general with her son and we will follow up. Sloan Sosa MD
[2018-03-17] MEDS: Pantoprazole 40 mg EC Tab PO SCH (05:45)
[2018-03-17] MEDS: Multivitamin Vitamin B Complex (Nephro-Vite) Tab PO SCH (08:19)
[2018-03-17] MEDS: Insulin Reg-LOW-Coverage SC SCH ×4 (08:19→22:38)
[2018-03-17] MEDS: Insulin Lispro 1 UNITS/0.01 ML SC SCH ×3 (08:23→17:28)
[2018-03-17] MEDS: Acetylcysteine 20% Inhal Soln (4ml) PO SCH ×2 (09:55→17:27)
[2018-03-17] MEDS: Oxycodone/Acetaminophen 5/325 mg Tab PO PRN ×2 (09:57→22:39)
--- NOTE | 2018-03-17 10:57 | PN ---
DATE: 03/17/2018 SUBJECTIVE: The patient is in bed in no acute distress. Nontoxic. No fevers. No chills. PHYSICAL EXAMINATION: VITAL SIGNS: Temperature 98, blood pressure 150/70, respiratory rate 18. HEENT: Examination of HEENT is unremarkable. NECK: Supple. LUNGS: Decreased breath sounds. HEART: Sounds normal S1, S2. ABDOMEN: Soft, nontender. LABORATORY DATA: Laboratory examination reveals a white count of 13,600, hemoglobin of 10. Creatinine is 2.2. Urinalysis is noted. Urine for Legionella antigen is negative. Strep pneumonia is noted. Enterobacter aerogenes is noted in the urine culture. Review of orders reveals the patient to be on p.o. doxycycline, prednisone. ASSESSMENT AND PLAN: The patient is a 57-year-old female with multiple admissions, long-term active smoker, end-stage chronic obstructive pulmonary disease, breast cancer, diabetes, admitted with change in mental status, hypercapnic respiratory failure, right pleural effusion, mediastinal shift, lobar atelectasis, status post intubation, downgraded from intensive care unit; is now doing well. She has completed 5 days of doxycycline, cefepime for the right-sided pleural effusion, leukopenia. Antibiotics were discontinued 03/13/2018 with asymptomatic bacteriuria. antibiotics. Review of orders reveals the patient to be on doxycycline ordered by Pulmonary. We will discontinue the doxycycline. No indication for antibiotic treatment. The patient is on prednisone. We will follow with you. Prasanth Malcolm MD
[2018-03-17] MEDS: Albuterol-Ipratrop 3 mg / 0.5 (3 ml) UD IH PRN ×2 (11:38→16:50)
[2018-03-17] MEDS: Arformoterol 15 mcg/2 ml Inh Sol IH SCH ×2 (11:38→19:24)
[2018-03-17] MEDS: Budesonide 0.5 mg/2 ml Inhal Susp UD IH SCH ×2 (11:38→19:24)
--- NOTE | 2018-03-17 13:29 | CP.PCM.PN ---
Subjective - Date & Time of Evaluation Date of Evaluation: 03/17/18 Time of Evaluation: 13:28 - Subjective Subjective: Nephrology Consultation Note: Assessment: Stable Acute Kidney Injury (N17.9) AMS, CO2 narcosis and acute on chronc respi acidosis with respi failure with renal compensation rt large pleural effusion with chest wall mass ? malignant (hx of breast CA) Diabetic chronic Kidney Disease (E11.22) Hypertensive Chronic Kidney Disease (I12.9) Chronic Kidney Disease (N18.3) Stage 3 with 1200 mg proteinuria and 400 mg albuminuria (R80.9) likely due to DM/HTN Anemia (D64.9) COPD/asthma, active smoker, breast cancer s/p surgery 2 years ago active smoker Plan No acute need for renal replacement therapy at this time. no labs today will review when available Renal function remains stable Hypertension control with meds as ordered. Monitor Input/Output, daily weights and renal function with basic metabolic panel low Na and low K diet consider heme/onc eval for malignancy. will defer use of [place] in view of her recent breast malignancy with concerns for mets repeat renal sono in 6 months for cyst follow up cont vit d and iron Dose meds/antibiotics for reduced GFR. Avoid fleets enema/magnesium based laxatives. Avoid nephrotoxins/NSAIDs/ iodinated contrast (unless needed emergently) Glycemic control. pt need to stop smoking Further work up/management as per primary team S: seen and examined no acute events o/n no complaints Physical Examination: General Appearance: Comfortable, in no acute respiratory distress, co-operative . Vitals reviewed and noted as below Head; Atraumatic, normocephalic ENT: no ulcers no thrush. Tongue is midline. Oropharynx: no rash or ulcers. she is hard of hearing EYES: Pupils are equal, round and reactive to light accommodation. Eye muscles and extraocular movement intact. Sclera is anicteric. Neck; supple no lymphadenopathy, no thyromegaly or bruit Lungs: Normal respiratory rate/effort. Breath sounds reduced at base with b/l wheezing Heart: Normal rate. s1s2 normal. No rub or gallop. Extremities: 1+ edema. No varicose veins Neurological: Patient is alert, awake and oriented to person, place and time. No focal deficit. Strength bilateral appropriate and equal Skin: Warm and dry. Normal turgor. No rash. Palpitation: Normal elasticity for age Abdomen: Abdomen is soft. Bowel sounds +. There is no abdominal tenderness, no guarding/rigidity no organomegaly Psych: lack insight and normal affect/mood MSK: no joint tenderness or swelling. Digits and nails normal, no deformity : kidney or bladder not palpable Labs/imaging reviewed. Past medical history, past surgical history, family history, social history, allergy reviewed and noted as below Family hx: no hx of CKD. Rest non-contributory renal imaging: b/l cysts echo normal LVEF TSAt 26% ferritin 45 Serum FLC assay WNL ABDIRIZAK neg PTH 154 Vit D 17 Objective - Vital Signs/Intake and Output Vital Signs (last 24 hours): Temp Pulse Resp BP Pulse Ox 98.7 F 88 19 121/48 L 97 03/17/18 12:00 03/17/18 12:00 03/17/18 12:00 03/17/18 12:00 03/17/18 05:56 Intake and Output: 03/17/18 03/17/18 06:59 18:59 Intake Total 340 Output Total 350 Balance -10 - Medications Medications: Current Medications Acetylcysteine (Acetylcysteine 20%) 3 ml PO BID [facility] Last Admin: 03/16/18 17:37 Dose: 3 ml Albuterol/Ipratropium (Duoneb 3 Mg/0.5 Mg (3 Ml) Ud) 3 ml IH [id number] PRN PRN Reason: Shortness of Breath Last Admin: 03/17/18 11:38 Dose: 3 ml Alprazolam (Xanax) 0.5 mg PO TID PRN; Protocol PRN Reason: Anxiety Last Admin: 03/16/18 23:12 Dose: 0.5 mg Arformoterol Tartrate (Brovana) 15 mcg IH [id number] [facility] Last Admin: 03/17/18 11:38 Dose: 15 mcg Aspirin (Aspirin Chewable) 81 mg PO DAILY [facility] Last Admin: 03/17/18 09:56 Dose: 81 mg Atorvastatin Calcium (Lipitor) 10 mg PO DAILY [facility] Last Admin: 03/17/18 09:57 Dose: 10 mg Budesonide (Pulmicort Respules) 0.5 mg IH [id number] [facility] Last Admin: 03/17/18 11:38 Dose: 0.5 mg Ergocalciferol (Drisdol 50,000 Intl Units Cap) 1 cap PO Q7D [facility] Last Admin: 03/12/18 09:55 Dose: 1 cap Ferrous Gluconate (Fergon) 324 mg PO TID [facility] Last Admin: 03/17/18 09:57 Dose: 324 mg Heparin Sodium (Porcine) (Heparin) 5,000 units SC 0600,1400,2200 [facility]; Protocol Last Admin: 03/17/18 05:44 Dose: 5,000 units Insulin Detemir (Levemir) 15 unit SC HS [facility] Last Admin: 03/16/18 21:34 Dose: 4 unit Insulin Human Lispro (Humalog) 20 units SC AC [facility] Last Admin: 03/17/18 12:35 Dose: 20 units Insulin Human Regular (Humulin R Low) 0 units SC ACHS [facility]; Protocol Last Admin: 03/17/18 12:34 Dose: 1 units Losartan Potassium (Cozaar) 50 mg PO DAILY [facility] Last Admin: 03/17/18 09:56 Dose: 50 mg Montelukast Sodium (Singulair) 10 mg PO HS [facility] Last Admin: 03/16/18 21:41 Dose: 10 mg Oxycodone/Acetaminophen (Percocet 5/325 Mg Tab) 1 tab PO Q8 PRN PRN Reason: Pain, moderate (4-7) Stop: 03/19/18 19:01 Last Admin: 03/17/18 09:57 Dose: 1 tab Pantoprazole Sodium (Protonix Ec Tab) 40 mg PO 0600 [facility] Last Admin: 03/17/18 05:45 Dose: 40 mg Prednisone (Prednisone Tab) 20 mg PO DAILY [facility] Last Admin: 03/17/18 09:56 Dose: 20 mg Vitamin B Complex/Vit C/Folic Acid (Nephro-Enrrique) 1 tab PO 0800 [facility] Last Admin: 03/17/18 08:19 Dose: 1 tab - Labs Labs: 03/16/18 06:00 03/16/18 06:00 PT 12.5 SECONDS (9.4-12.5) 03/08/18 13:30 INR 1.09 03/08/18 13:30 APTT 38.8 Seconds (25.1-36.5) H 03/08/18 13:30
--- NOTE | 2018-03-17 15:12 | PN ---
DATE: 03/17/2018 PULMONARY PROGRESS NOTE REFERRING PHYSICIAN: Sloan Sosa MD SUBJECTIVE: The patient is lying in bed, head of bed elevated. Reports feeling well today, though has cough and shortness of breath with movements. No headache, rhinitis, chest pain, abdominal pain, nausea, vomiting, diarrhea, leg pain or leg swelling reported. OBJECTIVE: GENERAL: No acute distress. VITAL SIGNS: Blood pressure 140/60, pulse 91, temperature 98.7 and oxygen saturation 100% via nasal canula. HEENT: Moist mucous membranes. Crowded airway. Mallampati score of 4. NECK: Supple. No JVD. LUNGS: Scattered rhonchi bilaterally. Diminished breath sounds on the right. CARDIOVASCULAR: S1 and S2, audible. ABDOMEN: Soft and nontender. No distention. No organomegaly. EXTREMITIES: No bilateral lower extremity edema. NEUROLOGICAL: Awake, alert and verbal. Follows commands. MEDICATIONS: Reviewed. Mucomyst 3 mL twice a day, DuoNeb 3 mL inhalation every 6 hours p.r.n., Xanax 0.5 mg three times a day p.r.n., Brovana 15 mcg every 12 hours, aspirin 81 mg daily, Lipitor 10 mg daily, Pulmicort 0.5 mg every 12 hours, ergocalciferol one cap every 7 days, ferrous gluconate 324 mg three times a day, heparin 5000 units subcutaneously three times a day, Levemir 15 units at bedtime, Humalog 20 units subcu a.c., Humalog R sliding scale a.c. and h.s., Cozaar 50 mg daily, Singulair 10 mg at bedtime, Percocet 5/325 mg one tab every 8 hours p.r.n., Protonix 40 mg daily, prednisone 20 mg daily and Nephro-Enrrique one tab daily. LABORATORY DATA: Reviewed. POC glucose 193. IMPRESSION AND PLAN: Chronic obstructive lung disease component of hypoventilation syndrome; history of breast cancer, noncompliant with treatment and followup; recurrent urinary tract infection; anemia, diabetes and chronic renal insufficiency, breast cancer with bone metastasis. Case discussed with Dr. Sosa yesterday regarding starting the patient on radiation. At this time we believe that due to the patient's severe lung disease radiation will worsen the patient's lungs. Continue symptom management, supportive care. Continue bronchodilators, steroids, gastric prophylaxis, deep venous thrombosis prophylaxis. Continue incentive spirometry use, aggressive pulmonary toileting. Leukotriene inhibitors. The patient would benefit from physical therapy. This patient was seen and examined with Dr. Rucker. Discussed assessment and plan as described above. Thank you for this consult and we will follow with you. Didier Dennis APN Lisa Rucker MD [facility]
[2018-03-17 21:52] LABS: HEMOGLOBIN 8.7 g/dL (12.0-16.0); MEAN CELL VOLUME 94.5 fl (80.0-105.0); MEAN CORPUSCULAR HEMOGLOBIN 28.1 pg (25.0-35.0); MEAN CORPUSCULAR HGB CONC 29.7 g/dl (31.0-37.0); MEAN PLATELET VOLUME 11.6 fl (7.0-11.0); RBC 3.1 10^6/uL (3.5-6.1); RED CELL DISTRIBUTION WIDTH 18.6 % (11.5-14.5); WHITE BLOOD COUNT 13.5 10^3/uL (4.5-11.0)
[2018-03-17] MEDS: Insulin Detemir 100 units/ml Vial (Levemir) SC SCH (22:38)
--- NOTE | 2018-03-18 02:43 | PN ---
DATE: 03/17/2018 SUBJECTIVE: A 57-year-old female. The patient feels better. Less short of breath. No chest pain. She wants to go home in the morning. She is afebrile. No nausea. Her breathing is improving and doing better. PHYSICAL EXAMINATION: VITAL SIGNS: Temperature 97.1, heart rate 79, blood pressure 131/57, respirations 19. HEAD AND NECK: Normal. No JVD. No thyromegaly. CHEST: Clear, bilateral. CARDIAC: First and second sounds are normal. LUNGS: Diminished breath sounds on the right side. On the left, there is also no wheezing. ABDOMEN: Soft. Nontender. EXTREMITIES: No edema. NEUROLOGIC: Normal. LABORATORY STUDIES: Ordered for tomorrow. Blood sugar is 160, 190. IMPRESSION AND PLAN: 1. Acute chronic obstructive pulmonary disease exacerbation. Continue current therapy. Continue inhaled bronchodilators. Prednisone oral and Mucomyst. 2. The patient has chronic renal failure, currently no hemodialysis, stable. Combination of diabetic and hypertensive. 3. Insulin-dependent diabetes. Continue insulin regimen. Her sugar is in the 150 to 300 in some times. Continue current management. The patient is noncompliant with the diet using in the hospital. 4. Breast carcinoma with chest wall mass. Discussed with Dr. Rucker about palliative radiation therapy. He declined it. He mentioned that could be more damaging her lung and she may get in trouble from lung disease rather than from her cancer. At this moment, we will continue supportive care. We will continue current treatment. 5. Chronic anxiety. Continue Xanax. 6. Chronic back pain. Continue oxycodone as needed. Continue current therapy. Follow up clinically. Sloan Sosa MD
[2018-03-18] MEDS: Pantoprazole 40 mg EC Tab PO SCH (06:37)
[2018-03-18] MEDS: Budesonide 0.5 mg/2 ml Inhal Susp UD IH SCH (07:36)
[2018-03-18] MEDS: Arformoterol 15 mcg/2 ml Inh Sol IH SCH (07:36)
[2018-03-18] MEDS: Multivitamin Vitamin B Complex (Nephro-Vite) Tab PO SCH (08:17)
[2018-03-18] MEDS: Insulin Lispro 1 UNITS/0.01 ML SC SCH ×3 (10:36→17:20)
[2018-03-18] MEDS: Insulin Reg-LOW-Coverage SC SCH ×4 (10:37→21:32)
[2018-03-18] MEDS: Albuterol-Ipratrop 3 mg / 0.5 (3 ml) UD IH PRN ×3 (11:07→23:58)
[2018-03-18] MEDS: Acetylcysteine 20% Inhal Soln (4ml) PO SCH ×2 (12:02→16:59)
--- NOTE | 2018-03-18 16:11 | PN ---
DATE: 03/18/2018 SUBJECTIVE: The patient is in bed, in no acute distress, nontoxic. PHYSICAL EXAMINATION VITAL SIGNS: Temperature is 98, blood pressure is 101/40, respiratory rate of 20, heart rate of 94. HEENT: Unremarkable. NECK: Supple. LUNGS: Decreased breath sounds. HEART: Normal S1, S2. ABDOMEN: Soft, nontender. LABORATORY DATA: Laboratory examination reveals a white count of 13,500, hemoglobin of 8, platelets of 208. Chemistries reveals a BUN of 77, creatinine of 2.4. Urinalysis is noted. Toxicology is noted. Urine for Legionella is negative. Review of orders reveals the patient to be off of antibiotics. The patient is on prednisone. ASSESSMENT AND PLAN: A 57-year-old female, long-time active smoker, end-stage chronic obstructive lung disease, breast cancer, diabetes, admitted with change of mental status, hypercapnic respiratory failure, right pleural effusion, mediastinal shift little atelectasis, status post intubation and currently has completed the antibiotic therapy and currently off of antibiotics, afebrile and the patient is at risk for developing nosocomial infections. Dr. Lisa Rucker's note is reviewed. Dr. Rios's note is also reviewed. Prasanth Malcolm MD
[2018-03-18] MEDS: Oxycodone/Acetaminophen 5/325 mg Tab PO PRN (17:00)
--- NOTE | 2018-03-18 20:03 | PN ---
DATE: 03/18/2018 PULMONARY PROGRESS NOTE REFERRING PHYSICIAN: Dr. Sloan Sosa. SUBJECTIVE: She is lying in the bed, sleepy, arousable. Family at bedside. Night was unremarkable. Still have a cough with thick secretion. No nausea, vomiting, no diarrhea, leg pain, leg swelling. PHYSICAL EXAMINATION GENERAL: No acute distress. VITAL SIGNS: Temperature is 98, heart rate is 91, respiratory rate is 82, blood pressure 110/49. Pulse ox is 100% on nasal cannula. HEENT: Moist mucous membrane. Crowded airway. NECK: Supple. No JVD. CARDIOPULMONARY: S1 and S2. LUNGS: Have scattered rhonchi and wheezing. ABDOMEN: Soft, nontender. No organomegaly. EXTREMITIES: No edema. NEUROLOGICAL: Sleepy, arousable. Follows simple command. LABORATORY DATA: Reviewed. Noted blood sugar this morning was 152. MEDICATIONS: She is on Mucomyst 20% inhaled twice a day, aspirin 81 mg daily Brovana inhaled twice a day, Cozaar 50 mg daily, vitamin D 50,000 units every 7 days, DuoNeb every 6 hours. p.r.n., ferrous gluconate 325 mg three times a day, heparin 5000 units every 12 hours, insulin coverage, Levemir 50 units subcutaneously at bedtime. Lipitor 10 mg daily, Nephro, vitamins daily, Percocet 5/325 1 tablet every 8 hours p.r.n., prednisone 20 mg daily, Protonix 40 mg daily, budesonide inhaled twice a day, Singulair 10 mg daily, Xanax 0.5 mg three times a day p.r.n. IMPRESSION AND PLAN: Chronic obstructive lung disease. It is a component of hypoventilation syndrome, history of breast cancer, noncompliant with treatment . Recurrent urinary tract infection, anemia, diabetes, chronic renal insufficiency, breast cancer with progressive disease and metastatic disease. Pulmonary point view, continue steroids, inhaled bronchodilator, pulmonary toilet. May add Zithromax for chronic pulmonary disease. Gastric prophylaxis. Fall precaution. We will follow with you. Lisa Rucker MD [facility] # [id number]
[2018-03-18] MEDS: Insulin Detemir 100 units/ml Vial (Levemir) SC SCH (21:32)
--- NOTE | 2018-03-18 23:47 | PN ---
DATE: 03/18/2018 SUBJECTIVE: The patient is comfortable. No distress. She is on oxygen, 2 L nasal cannula. She is, otherwise, stable. The patient's family, daughter, and son are with her. PHYSICAL EXAMINATION: As follows, VITAL SIGNS: Temperature 97.1, heart rate 91, blood pressure is 110/49, and respirations 19. HEENT: Head and neck examination is normal. No JVD. No thyromegaly. CHEST EXAM: Diminished breath sounds more on the right than left. No wheezing. CARDIAC: First and second sounds are normal. ABDOMEN: Soft and nontender. EXTREMITIES: Mild edema. NEUROLOGIC: Normal. LABORATORY DATA: Noted for blood sugar, she is eating from the family members who brought her some food, from 119 to 111. IMPRESSION AND PLAN: 1. Acute chronic obstructive pulmonary disease exacerbation, complicated with atelectasis, possible right pleural effusions. 2. Severe chronic obstructive pulmonary disease, oxygen dependence. We will continue inhaled bronchodilators. Continue prednisone p.o. 3. Chronic renal failure. 4. Diabetic, hypertension related. 5. Insulin dependent diabetes. We will go up, increase the insulin, the Levemir, and we will advise the patient to monitor her diet she is eating, the food family member brought. We will increase the Levemir to 20 units. 6. Hypertension. 7. Chronic back pain. 8. Chronic anxiety, on Xanax. 9. Breast carcinoma with bone metastasis, probably chest wall invasion. The patient is not a candidate for surgery. She refused surgery in the past and was seen by surgical consult, Dr. Huerta, in the past, Oncology. She does not want any surgery done or chemotherapy, and she just needs comfort care. At this time, radiation therapy to the breast will cause no more damage to the lung with her respiratory failure breast cancer itself. Discussed with Dr. Rucker. We will continue current management. We will follow up clinically. The patient may be discharged tomorrow morning. Continue current treatments. Continue Zithromax p.o., Singulair, Protonix, prednisone 20 mg p.o. daily, we will decrease it gradually. Continue current therapy. Follow up clinically. Patient seems stable. Sloan Sosa MD [facility] # [id number]
[2018-03-19] MEDS: Oxycodone/Acetaminophen 5/325 mg Tab PO PRN ×2 (01:01→13:37)
[2018-03-19 05:29] VITALS: O2SAT 98
[2018-03-19] MEDS: Pantoprazole 40 mg EC Tab PO SCH (05:42)
[2018-03-19] MEDS: Albuterol-Ipratrop 3 mg / 0.5 (3 ml) UD IH PRN ×2 (07:23→13:07)
[2018-03-19] MEDS: Budesonide 0.5 mg/2 ml Inhal Susp UD IH SCH (07:24)
--- NOTE | 2018-03-19 09:03 | CP.PCM.PN ---
Subjective - Date & Time of Evaluation Date of Evaluation: 03/19/18 Time of Evaluation: 09:01 - Subjective Subjective: Nephrology Consultation Note: Assessment: Stable Acute Kidney Injury (N17.9) AMS, CO2 narcosis and acute on chronc respi acidosis with respi failure with renal compensation rt large pleural effusion with chest wall mass ? malignant (hx of breast CA) Diabetic chronic Kidney Disease (E11.22) Hypertensive Chronic Kidney Disease (I12.9) Chronic Kidney Disease (N18.3) Stage 3 with 1200 mg proteinuria and 400 mg albuminuria (R80.9) likely due to DM/HTN Anemia (D64.9) COPD/asthma, active smoker, breast cancer s/p surgery 2 years ago active smoker Plan No acute need for renal replacement therapy at this time. Renal function was stable on last check, will review bmp when available Hypertension control with meds as ordered. Monitor Input/Output, daily weights and renal function with basic metabolic panel low Na and low K diet consider heme/onc eval for malignancy. will defer use of [place] in view of her recent breast malignancy with concerns for mets repeat renal sono in 6 months for cyst follow up cont vit d and iron Dose meds/antibiotics for reduced GFR. Avoid fleets enema/magnesium based laxatives. Avoid nephrotoxins/NSAIDs/ iodinated contrast (unless needed emergently) Glycemic control. f/u cardiology Further work up/management as per primary team S: seen and examined no acute events o/n no complaints Physical Examination: General Appearance: Comfortable, in no acute respiratory distress, co-operative . Vitals reviewed and noted as below Head; Atraumatic, normocephalic ENT: no ulcers no thrush. Tongue is midline. Oropharynx: no rash or ulcers. she is hard of hearing EYES: Pupils are equal, round and reactive to light accommodation. Eye muscles and extraocular movement intact. Sclera is anicteric. Neck; supple no lymphadenopathy, no thyromegaly or bruit Lungs: Normal respiratory rate/effort. Breath sounds reduced at base Heart: Normal rate. s1s2 normal. No rub or gallop. Extremities: 1+ edema. No varicose veins Neurological: Patient is alert, awake and oriented to person, place and time. No focal deficit. Strength bilateral appropriate and equal Skin: Warm and dry. Normal turgor. No rash. Palpitation: Normal elasticity for age Abdomen: Abdomen is soft. Bowel sounds +. There is no abdominal tenderness, no guarding/rigidity no organomegaly Psych: lack insight and normal affect/mood MSK: no joint tenderness or swelling. Digits and nails normal, no deformity : kidney or bladder not palpable Labs/imaging reviewed. Past medical history, past surgical history, family history, social history, allergy reviewed and noted as below Family hx: no hx of CKD. Rest non-contributory renal imaging: b/l cysts echo normal LVEF TSAt 26% ferritin 45 Serum FLC assay WNL ABDIRIZAK neg PTH 154 Vit D 17 Objective - Vital Signs/Intake and Output Vital Signs (last 24 hours): Temp Pulse Resp BP Pulse Ox 97.8 F 94 H 20 122/64 98 03/19/18 05:28 03/19/18 05:28 03/19/18 05:28 03/19/18 05:28 03/19/18 05:28 Intake and Output: 03/19/18 03/19/18 06:59 18:59 Intake Total 660 Output Total 325 Balance 335 - Medications Medications: Current Medications Acetylcysteine (Acetylcysteine 20%) 3 ml PO BID [facility] Last Admin: 03/18/18 16:59 Dose: 3 ml Albuterol/Ipratropium (Duoneb 3 Mg/0.5 Mg (3 Ml) Ud) 3 ml IH [id number] PRN PRN Reason: Shortness of Breath Last Admin: 03/19/18 07:23 Dose: 3 ml Alprazolam (Xanax) 0.5 mg PO TID PRN; Protocol PRN Reason: Anxiety Last Admin: 03/18/18 21:31 Dose: 0.5 mg Arformoterol Tartrate (Brovana) 15 mcg IH [id number] [facility] Last Admin: 03/18/18 07:36 Dose: 15 mcg Aspirin (Aspirin Chewable) 81 mg PO DAILY [facility] Last Admin: 03/18/18 10:35 Dose: 81 mg Atorvastatin Calcium (Lipitor) 10 mg PO DAILY [facility] Last Admin: 03/18/18 10:36 Dose: 10 mg Azithromycin (Zithromax) 250 mg PO DAILY [facility]; Protocol Budesonide (Pulmicort Respules) 0.5 mg IH [id number] [facility] Last Admin: 03/19/18 07:24 Dose: 0.5 mg Ergocalciferol (Drisdol 50,000 Intl Units Cap) 1 cap PO Q7D [facility] Last Admin: 03/12/18 09:55 Dose: 1 cap Ferrous Gluconate (Fergon) 324 mg PO TID [facility] Last Admin: 03/18/18 17:00 Dose: 324 mg Insulin Detemir (Levemir) 15 unit SC HS [facility] Last Admin: 03/18/18 21:32 Dose: 15 unit Insulin Human Lispro (Humalog) 20 units SC AC [facility] Last Admin: 03/18/18 17:20 Dose: 20 units Insulin Human Regular (Humulin R Low) 0 units SC ACHS [facility]; Protocol Last Admin: 03/18/18 21:32 Dose: 3 units Losartan Potassium (Cozaar) 50 mg PO DAILY [facility] Last Admin: 03/18/18 10:35 Dose: 50 mg Montelukast Sodium (Singulair) 10 mg PO HS [facility] Last Admin: 03/18/18 21:31 Dose: 10 mg Oxycodone/Acetaminophen (Percocet 5/325 Mg Tab) 1 tab PO Q8 PRN PRN Reason: Pain, moderate (4-7) Stop: 03/19/18 19:01 Last Admin: 03/19/18 01:01 Dose: 1 tab Pantoprazole Sodium (Protonix Ec Tab) 40 mg PO 0600 [facility] Last Admin: 03/19/18 05:42 Dose: 40 mg Prednisone (Prednisone Tab) 20 mg PO DAILY [facility] Last Admin: 03/18/18 10:35 Dose: 20 mg Vitamin B Complex/Vit C/Folic Acid (Nephro-Enrrique) 1 tab PO 0800 [facility] Last Admin: 03/18/18 08:17 Dose: 1 tab - Labs Labs: 03/17/18 21:49 03/16/18 06:00 PT 12.5 SECONDS (9.4-12.5) 03/08/18 13:30 INR 1.09 03/08/18 13:30 APTT 38.8 Seconds (25.1-36.5) H 03/08/18 13:30
--- NOTE | 2018-03-19 09:07 | CP.PCM.PN ---
<Imelda Greer - Last Filed: 03/19/18 13:59> Subjective - Date & Time of Evaluation Date of Evaluation: 03/19/18 Time of Evaluation: 09:03 - Subjective Subjective: ID progress note PGY-[address] Damon See pt in onc radiology. She was there for consult. denies fever, chills, cp, worsening sob, n/v/d/c, dysuria Objective - Vital Signs/Intake and Output Vital Signs (last 24 hours): Temp Pulse Resp BP Pulse Ox 97.8 F 94 H 20 122/64 98 03/19/18 05:28 03/19/18 05:28 03/19/18 05:28 03/19/18 05:28 03/19/18 05:28 Intake and Output: 03/19/18 03/19/18 06:59 18:59 Intake Total 660 Output Total 325 Balance 335 - Medications Medications: Current Medications Acetylcysteine (Acetylcysteine 20%) 3 ml PO BID [facility] Last Admin: 03/18/18 16:59 Dose: 3 ml Albuterol/Ipratropium (Duoneb 3 Mg/0.5 Mg (3 Ml) Ud) 3 ml IH [id number] PRN PRN Reason: Shortness of Breath Last Admin: 03/19/18 07:23 Dose: 3 ml Alprazolam (Xanax) 0.5 mg PO TID PRN; Protocol PRN Reason: Anxiety Last Admin: 03/18/18 21:31 Dose: 0.5 mg Arformoterol Tartrate (Brovana) 15 mcg IH [id number] [facility] Last Admin: 03/18/18 07:36 Dose: 15 mcg Aspirin (Aspirin Chewable) 81 mg PO DAILY [facility] Last Admin: 03/18/18 10:35 Dose: 81 mg Atorvastatin Calcium (Lipitor) 10 mg PO DAILY [facility] Last Admin: 03/18/18 10:36 Dose: 10 mg Azithromycin (Zithromax) 250 mg PO DAILY [facility]; Protocol Budesonide (Pulmicort Respules) 0.5 mg IH [id number] [facility] Last Admin: 03/19/18 07:24 Dose: 0.5 mg Ergocalciferol (Drisdol 50,000 Intl Units Cap) 1 cap PO Q7D [facility] Last Admin: 03/12/18 09:55 Dose: 1 cap Ferrous Gluconate (Fergon) 324 mg PO TID [facility] Last Admin: 03/18/18 17:00 Dose: 324 mg Insulin Detemir (Levemir) 15 unit SC HS [facility] Last Admin: 03/18/18 21:32 Dose: 15 unit Insulin Human Lispro (Humalog) 20 units SC AC [facility] Last Admin: 03/18/18 17:20 Dose: 20 units Insulin Human Regular (Humulin R Low) 0 units SC ACHS [facility]; Protocol Last Admin: 03/18/18 21:32 Dose: 3 units Losartan Potassium (Cozaar) 50 mg PO DAILY [facility] Last Admin: 03/18/18 10:35 Dose: 50 mg Montelukast Sodium (Singulair) 10 mg PO HS [facility] Last Admin: 03/18/18 21:31 Dose: 10 mg Oxycodone/Acetaminophen (Percocet 5/325 Mg Tab) 1 tab PO Q8 PRN PRN Reason: Pain, moderate (4-7) Stop: 03/19/18 19:01 Last Admin: 03/19/18 01:01 Dose: 1 tab Pantoprazole Sodium (Protonix Ec Tab) 40 mg PO 0600 [facility] Last Admin: 03/19/18 05:42 Dose: 40 mg Prednisone (Prednisone Tab) 20 mg PO DAILY [facility] Last Admin: 03/18/18 10:35 Dose: 20 mg Vitamin B Complex/Vit C/Folic Acid (Nephro-Enrrique) 1 tab PO 0800 [facility] Last Admin: 03/18/18 08:17 Dose: 1 tab - Labs Labs: 03/17/18 21:49 03/16/18 06:00 PT 12.5 SECONDS (9.4-12.5) 03/08/18 13:30 INR 1.09 03/08/18 13:30 APTT 38.8 Seconds (25.1-36.5) H 03/08/18 13:30 - Constitutional Appears: No Acute Distress - Head Exam Head Exam: ATRAUMATIC, NORMAL INSPECTION, NORMOCEPHALIC - Eye Exam Eye Exam: EOMI, Normal appearance, PERRL. absent: Scleral icterus Pupil Exam: NORMAL ACCOMODATION - ENT Exam ENT Exam: Mucous Membranes Moist - Neck Exam Additional comments: supple, on 2L nc - Respiratory Exam Respiratory Exam: Clear to Ausculation Bilateral, Rhonchi (mild), Wheezes, NORMAL BREATHING PATTERN. absent: Rales (mild) - Cardiovascular Exam Cardiovascular Exam: REGULAR RHYTHM, +S1, +S2. absent: Murmur - GI/Abdominal Exam GI & Abdominal Exam: Soft, Normal Bowel Sounds. absent: Tenderness Additional comments: No suprapubic tenderness - Extremities Exam Extremities Exam: absent: Calf Tenderness, Pedal Edema - Back Exam Back Exam: absent: CVA tenderness (L), CVA tenderness (R) - Neurological Exam Neurological Exam: Alert, Awake, Oriented x3 - Psychiatric Exam Psychiatric exam: Normal Affect, Normal Mood - Skin Skin Exam: Dry, Warm Assessment and Plan - Assessment and Plan (Free Text) Plan: Ms Granado, 57F with multiple admissions, long-term active smoker, end-stage COPD, breast cancer, diabetes admitted with AMS and hypercapnic respiratory failure due to large R pleural effusion with mediastinal shift and lobar atelectasis, s/p intubation, downgraded from ICU to telemetry, clinically improving. She had completed 5 days of doxycycline and cefepime for R sided pleural effusion rule out healthcare-associated pneumonia, concerned about malignancy. Leukopenia and mild fever resolved. Antibiotics discontinued (on 03/13). Mild leukocytosis, likely due to prednisone (started on 03/15) Healthcare associated pneumonia - resolved large R pleural effusion - resolved Asymptomatic bacteriuria DAHLIA on CKD - stablizing Allergy to levofloxacin and nystatin Breast cancer, unknown stage COPD Plan: - Observe off antibiotics. Monitor clinical course. S/p doxy and cefepime (x 5 days) - Sugar control per primary - DAHLIA management per nephro. Renal dose medicine - At risk for nosocomial infection - Oncology is following pt, recommended palliative since pt refuses chemo and surgery in the past. Pt is being evaluated by radiation oncologist for breast mass. Per pulm, pt may not be a candidate for radiation due to poor lung reserve due to end stage COPD on o2 Imaging/Culture: - Urine Cx (morfin) Enterobacter aerogenes - Blood culture: neg x 5d - C diff: neg - MRSA: neg - CT chest w/o contrast (03/11): Volume loss in R hemithorax with partial loculated subpulmonic effusion. progressive consolidative changes. R breast ca likely extended into chest wall - CXR (03/13): No change as compared to 03/11 - CXR (03/14) stable moderate R pleural effusion - procacl = 0.14; negative legionella/strep pneumo s/r/d/w Dr Damon <Chung Damon S - Last Filed: 03/19/18 15:58> Objective - Vital Signs/Intake and Output Vital Signs (last 24 hours): Temp Pulse Resp BP Pulse Ox 98.1 F 89 18 105/45 L 98 03/19/18 12:00 03/19/18 12:00 03/19/18 12:00 03/19/18 12:00 03/19/18 05:28 Intake and Output: 03/19/18 03/19/18 06:59 18:59 Intake Total 660 480 Output Total 325 Balance 335 480 - Medications Medications: Current Medications Acetylcysteine (Acetylcysteine 20%) 3 ml PO BID [facility] Last Admin: 03/19/18 10:13 Dose: 3 ml Albuterol/Ipratropium (Duoneb 3 Mg/0.5 Mg (3 Ml) Ud) 3 ml IH [id number] PRN PRN Reason: Shortness of Breath Last Admin: 03/19/18 13:07 Dose: 3 ml Alprazolam (Xanax) 0.5 mg PO TID PRN; Protocol PRN Reason: Anxiety Last Admin: 03/19/18 09:47 Dose: 0.5 mg Arformoterol Tartrate (Brovana) 15 mcg IH [id number] [facility] Last Admin: 03/18/18 07:36 Dose: 15 mcg Aspirin (Aspirin Chewable) 81 mg PO DAILY [facility] Last Admin: 03/19/18 09:47 Dose: 81 mg Atorvastatin Calcium (Lipitor) 10 mg PO DAILY [facility] Last Admin: 03/19/18 09:47 Dose: 10 mg Azithromycin (Zithromax) 250 mg PO DAILY [facility]; Protocol Last Admin: 03/19/18 09:47 Dose: 250 mg Budesonide (Pulmicort Respules) 0.5 mg IH [id number] [facility] Last Admin: 03/19/18 07:24 Dose: 0.5 mg Ergocalciferol (Drisdol 50,000 Intl Units Cap) 1 cap PO Q7D [facility] Last Admin: 03/19/18 10:13 Dose: 1 cap Ferrous Gluconate (Fergon) 324 mg PO TID [facility] Last Admin: 03/19/18 13:37 Dose: 324 mg Insulin Detemir (Levemir) 15 unit SC HS [facility] Last Admin: 03/18/18 21:32 Dose: 15 unit Insulin Human Lispro (Humalog) 20 units SC AC [facility] Last Admin: 03/19/18 13:31 Dose: Not Given Insulin Human Regular (Humulin R Low) 0 units SC ACHS [facility]; Protocol Last Admin: 03/19/18 13:32 Dose: Not Given Losartan Potassium (Cozaar) 50 mg PO DAILY [facility] Last Admin: 03/19/18 09:47 Dose: 50 mg Montelukast Sodium (Singulair) 10 mg PO HS [facility] Last Admin: 03/18/18 21:31 Dose: 10 mg Oxycodone/Acetaminophen (Percocet 5/325 Mg Tab) 1 tab PO Q8 PRN PRN Reason: Pain, moderate (4-7) Stop: 03/19/18 19:01 Last Admin: 03/19/18 13:37 Dose: 1 tab Pantoprazole Sodium (Protonix Ec Tab) 40 mg PO 0600 [facility] Last Admin: 03/19/18 05:42 Dose: 40 mg Prednisone (Prednisone Tab) 20 mg PO DAILY [facility] Last Admin: 03/19/18 09:48 Dose: 20 mg Vitamin B Complex/Vit C/Folic Acid (Nephro-Enrrique) 1 tab PO 0800 [facility] Last Admin: 03/18/18 08:17 Dose: 1 tab - Labs Labs: 03/17/18 21:49 03/16/18 06:00 PT 12.5 SECONDS (9.4-12.5) 03/08/18 13:30 INR 1.09 03/08/18 13:30 APTT 38.8 Seconds (25.1-36.5) H 03/08/18 13:30 Assessment and Plan - Assessment and Plan (Free Text) Plan: Infectious diseases Attending Physician Attestation Patient seen and examined, discussed with medical claims analyst. I have reviewed the patient's history of present illness, past medical, social, personal and family histories, pertinent physical exam findings, course so far in this hospital admission, pertinent laboratory and imaging results. I agree with the above findings, assessment and plan. In addition, patient has completed 5 days of Doxycycline and cefepime for patient with right sided pleural effusion R/O pneumonia. Also concerned about malignancy and Heme/Onc is following. Will continue to monitor off antibiotics. Patient also with asymptomatic bacteriuria and will continue to monitor off antibiotics.
[2018-03-19] MEDS: Ergocalciferol 50,000 Intl Units Cap PO SCH (10:13)
[2018-03-19] MEDS: Acetylcysteine 20% Inhal Soln (4ml) PO SCH (10:13)
--- NOTE | 2018-03-19 10:38 | PN ---
DATE: 03/19/2018 PULMONARY PROGRESS NOTE REFERRING PHYSICIAN: Dr. Sosa. SUBJECTIVE: The patient is lying in bed. No acute distress. Reports still having cough. No headache, rhinitis, chest pain, abdominal pain, nausea, vomiting, diarrhea, leg pain, or leg swelling reported. Shortness of breath on exertion is reported. OBJECTIVE: GENERAL: No acute distress. VITAL SIGNS: Blood pressure 122/64, pulse 82, temperature 97.8, and oxygen saturation 98%. HEENT: Moist mucous membranes. Crowded airway. NECK: Supple. No JVD. CARDIOVASCULAR: S1 and S2 audible. LUNGS: Few scattered rhonchi bilaterally. No audible wheezing. ABDOMEN: Soft, nontender. No distention. No organomegaly. EXTREMITIES: No bilateral lower extremity edema. NEUROLOGICAL: Awake, alert, and verbal. Follows simple commands. LABORATORY DATA: Reviewed. POC glucose 293. MEDICATIONS: Reviewed. Mucomyst 3 mL p.o. twice a day, DuoNeb 3 mL inhalation every 6 hours, Xanax 0.5 mg three times a day p.r.n., Brovana 15 mcg every 12 hours, aspirin 81 mg daily, Lipitor 10 mg daily, Zithromax 250 mg daily, Pulmicort 0.5 mg inhalation every 12 hours, ergocalciferol 50,000 units every 7 days, ferrous gluconate 324 mg three times a day, Levemir 50 units subcu at bedtime, Humalog 20 units subcu a.c., Humulin R sliding scale, Cozaar 50 mg daily, Singulair 10 mg at bedtime, Percocet 5/325 mg one tab every 8 hours p.r.n., Protonix 40 mg daily, prednisone 20 mg daily, and Nephro-Enrrique one tab daily. IMPRESSION AND PLAN: Chronic obstructive lung disease, hypoventilation syndrome, history of breast cancer, noncompliant with treatment recommendations, recurrent urinary tract infection, anemia, diabetes, chronic renal insufficiency, breast cancer with progressive disease and metastatic disease. Pulmonary point of view, continue steroids, inhaled bronchodilators. Continue gastric aggressive pulmonary toilet. Continue antibiotic therapy for chronic pulmonary disease, gastric prophylaxis, fall precautions, and deep venous thrombosis prophylaxis. This patient was seen and examined with Dr. Rucker. Thank you for this consult. We will follow with you. Didier Dennis APN [facility] # [id number]
[2018-03-19] MEDS: Insulin Lispro 1 UNITS/0.01 ML SC SCH (13:31)
[2018-03-19] MEDS: Insulin Reg-LOW-Coverage SC SCH (13:32)
[2018-03-19 15:38] VITALS: BP 105/45; PULSE 89; RESP 18; TEMP 98.1
--- NOTE | 2018-03-21 00:15 | DS ---
HISTORY OF PRESENT ILLNESS: Patient has been admitted with COPD exacerbation, seen by Pulmonology, Cardiology, Radiation/Oncology, and conference specialist. She was also seen by Infectious Disease doctor. Patient is stable, has no complaint. No nausea, no vomiting on discharge, and she feels better. DISCHARGE PHYSICAL EXAMINATION: VITAL SIGNS: Temperature 97.8, heart rate 91, blood pressure 138/57, respirations 20, and sat 98%. HEAD AND NECK: Normal. No JVD. No thyromegaly. CHEST: Clear bilaterally. There is diminished breath sounds on the right more than the left. CARDIAC: First sounds and second sounds normal. ABDOMEN: Soft, obese, and nontender. EXTREMITIES: Mild edema. NEUROLOGIC: Normal. HOSPITAL COURSE: Patient stayed in the hospital. She had multiple workup including multiple chest x-rays which shows right-sided atelectasis, maybe pleural effusions and she had also multiple consultations, CT head, and seen by multiple specialists including echocardiography which showed good ejection fraction of 63% and left ventricular function is normal, otherwise negative. Patient also had Radiation Oncology, I think the covering physician for Dr. Herman, and patient seems not a candidate at this time because of her severe underlying chronic obstructive pulmonary disease. Spoke to Dr. Rucker about radiation affecting the lung, however, Dr. Herman suggests that she may need it in the future. Right now, she is asymptomatic, she has no tenderness, she feels fine and will not do any radiation right now, just for symptomatic relief, palliative therapy. Also, patient seen by carton forming machine helper for her kidney function. She has abnormal renal function chronically. LABORATORY DATA: Her last laboratory shows white count 15.5, hemoglobin 8.7, hematocrit 29.3, and platelets 208. Patient also has a bad sugar control, when she is eating sugar runs from 100 to 200. Her last kidney function shows sodium 138, potassium 4.3, chloride 101, bicarb 31, BUN 77, creatinine 2.2. Patient has sugar 155. DISCHARGE DIAGNOSES: 1. Acute chronic obstructive pulmonary disease exacerbation. 2. Chronic obstructive pulmonary disease with oxygen dependence. 3. Smoker, 2 pack addictions, however, patient quit recently 3 weeks ago. 4. Chronic renal failure, creatinine runs 2.2. 5. Diabetic nephropathy. 6. Anemia. 7. Diabetes, insulin dependent. 8. Chronic back pain, osteoarthritis of the spine. 9. Chronic anxiety. PLAN: We will resume her meds. Patient also has urinary tract infection, chronic, and patient was discharged on doxycycline b.i.d. Insulin regimen 70/30, she was given 15 units of 20 units before meals twice a day. Patient also given Percocet and Xanax. She resumed all her medications and was sent to the pharmacy at [facility] outpatient pharmacy. Discussed with the nurses. Continue her inhaled bronchodilators. Nebulizer machine was given, nebulizer medication was given, and Pepcid and Protonix also was given. We will discharge the patient and she seems to be doing well. Patient was discharged on 03/19/2018. Sloan Sosa MD
== END 2018-03-19 16:44 | disposition home or self-care (01) | DRG 882 ==
LOC: ED 13:26 → ERH 15:11 → ICU 20:36 → 2RNO 03-10 13:49
PROVIDERS: ADMIT Internal Medicine; ATTEND Internal Medicine
PROC: 5A1935Z Respiratory Ventilation, Less than 24 Consecutive Hours (ICD-10-PCS; principal; 2018-03-09)
PROC: 0BH17EZ Insertion of Endotracheal Airway into Trachea, Via Natural or Artificial Opening (ICD-10-PCS; 2018-03-09)
DX: J44.1 Chronic obstructive pulmonary disease with (acute) exacerbation (principal); J96.02 Acute respiratory failure with hypercapnia; N17.9 Acute kidney failure, unspecified; R65.10 Systemic inflammatory response syndrome (SIRS) of non-infectious origin without acute organ dysfunction; J18.9 Pneumonia, unspecified organism; J90 Pleural effusion, not elsewhere classified; C79.51 Secondary malignant neoplasm of bone; E11.21 Type 2 diabetes mellitus with diabetic nephropathy; E11.22 Type 2 diabetes mellitus with diabetic chronic kidney disease; E87.2 Acidosis; N18.3 Chronic kidney disease, stage 3 (moderate); J98.11 Atelectasis; N39.0 Urinary tract infection, site not specified; I12.9 Hypertensive chronic kidney disease with stage 1 through stage 4 chronic kidney disease, or unspecified chronic kidney disease; J44.0 Chronic obstructive pulmonary disease with (acute) lower respiratory infection; J20.9 Acute bronchitis, unspecified; E11.65 Type 2 diabetes mellitus with hyperglycemia; C50.912 Malignant neoplasm of unspecified site of left female breast; F17.200 Nicotine dependence, unspecified, uncomplicated; F32.9 Major depressive disorder, single episode, unspecified; D64.9 Anemia, unspecified; F41.9 Anxiety disorder, unspecified; K20.9 Esophagitis, unspecified; M47.9 Spondylosis, unspecified; R22.2 Localized swelling, mass and lump, trunk; B96.89 Other specified bacterial agents as the cause of diseases classified elsewhere; Z78.1 Physical restraint status; Z99.81 Dependence on supplemental oxygen; Z79.4 Long term (current) use of insulin; Z91.19 Patient's noncompliance with other medical treatment and regimen

== ENCOUNTER 2018-03-31 02:18 | Inpatient (IN) | payer MEDICAID ==
[2018-03-31] MEDS ORDERED: Succinylcholine 200 mg/10 ml Inj IV ONE (02:28)
[2018-03-31] MEDS ORDERED: Etomidate 20 mg/10ml Inj IV ONE (02:28)
--- NOTE | 2018-03-31 02:43 | ED PDOC ---
Arrival/HPI - General Chief Complaint: Respiratory Distress Time Seen by Provider: 03/31/18 02:22 Historian: EMS - Critical Care Critical Care Minutes: Other (35 minutes) - History of Present Illness Narrative History of Present Illness (Text): 03/31/18 02:36 A 57 year old female, whose past medical history includes COPD, asthma, breast cancer, anxiety, chronic back pain, IDDM, and recurrent UTIs, is brought into the emergency department via EMS in severe respiratory distress. HPI/ ROS limited due to acuity of patient's condition. PMD: Dr. Sosa Symptom Onset: Sudden Symptom Course: Unchanged Activities at Onset: Rest, Light Context: Home Past Medical History - Provider Review Nursing Documentation Reviewed: Yes - Infectious Disease Hx of Infectious Diseases: None - Tetanus Immunization Tetanus Immunization: Unknown - Cardiac Hx Cardiac Disorders: Yes Hx Hypertension: Yes - Pulmonary Hx Chronic Obstructive Pulmonary Disease (COPD): Yes - Neurological Hx Neurological Disorder: No - HEENT Hx HEENT Disorder: No - Renal Hx Renal Disorder: No - Endocrine/Metabolic Hx Diabetes Mellitus Type 2: Yes - Hematological/Oncological Hx Blood Disorders: Yes (blood transfusion) Hx Cancer: Yes (left breast dx 06/2015) Hx Chemotherapy: Yes (2016 as per son) - Integumentary Hx Dermatological Disorder: No - Musculoskeletal/Rheumatological Hx Falls: Yes - Gastrointestinal Hx Gastrointestinal Disorders: No - Genitourinary/Gynecological Hx Genitourinary Disorders: No - Psychiatric Hx Psychophysiologic Disorder: Yes Hx Anxiety: Yes Hx Depression: Yes Hx Substance Use: No - Past Surgical History Past Surgical History: Non-Contributing - Surgical History Hx Inguinal Hernia Repair: Yes - Anesthesia Hx Anesthesia: Yes Hx Anesthesia Reactions: No Hx Malignant Hyperthermia: No - Suicidal Assessment Feels Threatened In Home Enviroment: No Family/Social History - Physician Review Nursing Documentation Reviewed: Yes Family/Social History: No Known Family HX Smoking Status: Former Smoker Hx Alcohol Use: No Hx Substance Use: No Hx Substance Use Treatment: No Allergies/Home Meds Allergies/Adverse Reactions: Allergies levofloxacin [From Levaquin] Allergy (Verified 03/31/18 02:26) SHORTNESS OF BREATH;PARANOID nystatin Allergy (Verified 03/31/18 02:26) SWELLING Home Medications: Home Meds Medication Instructions Recorded Confirmed Advair Hfa 115/21 1 puff INH BID 03/03/17 02/05/18 Aspirin [Ecotrin] 81 mg PO DAILY 03/03/17 02/05/18 Famotidine [Pepcid] 20 mg PO DAILY 03/03/17 02/05/18 Oxycodone HCl/Acetaminophen 1 tab PO Q6 03/03/17 02/05/18 [Oxycodone-Acetaminophen 5-325] Simvastatin 10 mg PO DAILY 03/03/17 02/05/18 Review of Systems - Physician Review All systems were reviewed & negative as marked: Yes - Review of Systems Systems not reviewed;Unavailable: Respiratory Distress Physical Exam - Physical Exam Narrative Physical Exam (Text): 03/31/18 02:39 Gen: VS reviewed, alert, well developed, well nourished, nontoxic. Patient is severe respiratory distress. Eye: EOMI, PERRL. Neck: no JVD, supple, no adenopathy. CV: regular rhythm, no rubs, no murmur, no gallops, S1, S2, pulses equal and strong. Pulm: severe respiratory distress, tachypnic with accessory muscle use. crackles in bilateral full lung sotelo. no wheeze. Abd: soft, nontender, no guarding, no rebound, no rigidity, normal bowel sounds. Ext: pitting edema in the bilateral lower extremities. Skin: good color, no rash, no cyanosis. Psych: responds appropriately to questions, normal affect. Neuro: oriented x 3, CN2-12 intact grossly, motor intact, sensation intact. Vital Signs Reviewed: Yes Temperature: Febrile Blood Pressure: Hypertensive Pulse: Tachycardic Respiratory Rate: Normal Medical Decision Making ED Course and Treatment: 03/31/18 02:43 Impression: A 57 year old female presents to the emergency department in severe respiratory distress. Plan: -- EKG -- Chest X-ray -- Blood Culture -- Labs -- Urinalysis -- SOLU- Medrol -- Reassess and disposition Progress Notes: PROCEDURE: INTUBATION Performed by the emergency provider Time: 2:33 Consent: Discussion of the risks, benefits, and alternatives to the procedure, along with informed consent was precluded by the urgency of the procedure and the patient condition. Timeout: A timeout to verify the correct patient, procedure, and site was performed. Indication: Respiratory Distress Pre-oxygenation: [id number] Medications: See MAR for details. ETT Size: 7.0 Confirmation: Cords directly visualized as tube passed, good bilateral breath sounds, positive CO2 detector color change, tube fogging, adequate chest rise, improving pulse oximetry reading, improved skin color, and absence of gastric sounds,. ETT Secured: The cuff was inflated and the tube was secured appropriately at a distance of 22 cm at the lip. Post-Procedure: There were no immediate complications. CXR Confirmation: Yes 03/31/18 02:47: Case discussed with Dr. Sosa. Confirms patient is full code. Accepts patient for admission. 03/31/18 02:50: Case discussed with Dr. Brooks who will come evaluate patient for consultation and admission. 03/31/18 02:55: Chest X-ray read and interpreted by me shows ET tube appearing to be in satisfactory position. There is a large right sided pleural effusion with possible underlying infiltrate. No pneumothorax. - Lab Interpretations I have reviewed the lab results: Yes - EKG Interpretation Interpreted by ED Physician: Yes Type: 12 lead EKG - Scribe Statement The provider has reviewed the documentation as recorded by the Scribe Rosi Doshi Provider Scribe Attestation: All medical record entries made by the Scribe were at my direction and personally dictated by me. I have reviewed the chart and agree that the record accurately reflects my personal performance of the history, physical exam, medical decision making, and the department course for this patient. I have also personally directed, reviewed, and agree with the discharge instructions and disposition. Disposition/Present on Arrival - Present on Arrival Any Indicators Present on Arrival: No History of DVT/PE: No History of Uncontrolled Diabetes: Yes Urinary Catheter: No History of Decub. Ulcer: No History Surgical Site Infection Following: None - Disposition Have Diagnosis and Disposition been Completed?: Yes Diagnosis: Respiratory failure, Carbon dioxide narcosis Disposition: HOSPITALIZED Disposition Time: :47 Patient Plan: Admission Condition: CRITICAL
[2018-03-31] MEDS ORDERED: Midazolam 100 mg/100ml in NS 100 MG/100 ML SOL IV PRN (02:46)
[2018-03-31] MEDS ORDERED: Piperacillin/Tazobact 3.375 gm 100 ML IVPB STA (02:53)
[2018-03-31] MEDS ORDERED: Vancomycin 500 mg Inj IVPB STA (02:54)
[2018-03-31 03:02] LABS: BASO # 0.05 K/mm3 (0.0-2.0); BASO % 0.3 % (0.0-3.0); EOS # 0.3 (0.0-0.7); EOS % 1.8 % (1.5-5.0); GRAN # 13.57 (1.4-6.5); GRAN % 77.8 % (50.0-68.0); HEMOGLOBIN 9.7 g/dL (12.0-16.0); LYMPH # 2.7 (1.2-3.4); LYMPH % 15.2 % (22.0-35.0); MEAN CELL VOLUME 97.9 fl (80.0-105.0); MEAN CORPUSCULAR HEMOGLOBIN 28.5 pg (25.0-35.0); MEAN CORPUSCULAR HGB CONC 29.1 g/dl (31.0-37.0); MEAN PLATELET VOLUME 10.8 fl (7.0-11.0); MONO # 0.9 (0.1-0.6); MONO % 4.9 % (1.0-6.0); RBC 3.4 10^6/uL (3.5-6.1); RED CELL DISTRIBUTION WIDTH 19.7 % (11.5-14.5); WHITE BLOOD COUNT 17.4 10^3/uL (4.5-11.0)
[2018-03-31 03:03] LABS: VENOUS BLOOD GAS BASE EXCESS -2.8 mmol/L (0.0-2.0); VENOUS BLOOD GAS PO2 150 mm/Hg (30-55)
[2018-03-31] MEDS ORDERED: Vancomycin 1gm in NS 250ml 1 GM/250 ML BAG IVPB STA (03:04)
[2018-03-31 04:05] LABS: VENOUS BLOOD PH 7.06 (7.32-7.43)
[2018-03-31 04:07] LABS: ALB/GLOB RATIO 1.2 (1.1-1.8); CALCIUM 7.9 mg/dL (8.4-10.5)
[2018-03-31 04:15] LABS: ARTERIAL BLOOD GAS HCO3 25.2 mmol/L (21-28); ARTERIAL BLOOD GAS HEMOGLOBIN 7.7 g/dL (11.7-17.4); ARTERIAL BLOOD GAS O2 CAPACITY 11.2 mL/dl (16-24); ARTERIAL BLOOD GAS O2 CONTENT 11.2 ML/dl (15-23); ARTERIAL BLOOD GAS O2 SAT 99.6 % (95-98); ARTERIAL BLOOD GAS PCO2 63 mm/Hg (35-45); ARTERIAL BLOOD GAS TCO2 27.1 mmol.L (22-28)
[2018-03-31 04:21] LABS: ARTERIAL BLOOD GAS PH 7.21 (7.35-7.45)
[2018-03-31] MEDS ORDERED: Sodium Chloride 0.9% 1,000 ML IV SCH (06:30)
--- NOTE | 2018-03-31 06:52 | CP.PCM.CON ---
<Sergio Ellis - Last Filed: 03/31/18 07:32> History of Present Illness - History of Present Illness History of Present Illness: ICU consult note for Dr. Cecilia Ellis PGY2 CC: Respiratory distress while on the field as per EMS Patient is a 57 female with history of breast cancer, COPD, anxiety, pneumonia, pleural effusions, CKD who presented to the ED in respiratory distress while on non rebreather. Patient was then intubated while in ED due to lack of airway protection. Patient is currently sedated on midazolam. Review of Systems - Review of Systems Systems not reviewed;Unavailable: Intubated Past Patient History - Infectious Disease Hx of Infectious Diseases: None - Tetanus Immunizations Tetanus Immunization: Unknown - Past Medical History & Family History Past Medical History?: Yes - Past Social History Smoking Status: Former Smoker - CARDIAC Hx Cardiac Disorders: Yes Hx Hypertension: Yes - PULMONARY Hx Chronic Obstructive Pulmonary Disease (COPD): Yes - NEUROLOGICAL Hx Neurological Disorder: No - HEENT Hx HEENT Problems: No - RENAL Hx Chronic Kidney Disease: No - ENDOCRINE/METABOLIC Hx Diabetes Mellitus Type 2: Yes - HEMATOLOGICAL/ONCOLOGICAL Hx Blood Disorders: Yes (blood transfusion) Hx Cancer: Yes (left breast dx 06/2015) Hx Chemotherapy: Yes (2016 as per son) - INTEGUMENTARY Hx Dermatological Problems: No - MUSCULOSKELETAL/RHEUMATOLOGICAL Hx Falls: Yes - GASTROINTESTINAL Hx Gastrointestinal Disorders: No - GENITOURINARY/GYNECOLOGICAL Hx Genitourinary Disorders: No - PSYCHIATRIC Hx Psychophysiologic Disorder: Yes Hx Anxiety: Yes Hx Depression: Yes Hx Substance Use: No - SURGICAL HISTORY Hx Surgeries: Yes - ANESTHESIA Hx Anesthesia: Yes Hx Anesthesia Reactions: No Hx Malignant Hyperthermia: No Meds Allergies/Adverse Reactions: Allergies Allergy/AdvReac Type Severity Reaction Status Date / Time levofloxacin [From Levaquin] Allergy SHORTNESS Verified 03/31/18 02:26 OF BREATH;PARANOID nystatin Allergy SWELLING Verified 03/31/18 02:26 - Medications Medications: Current Medications Albuterol/Ipratropium (Duoneb 3 Mg/0.5 Mg (3 Ml) Ud) 3 ml IH [id number] [facility] Albuterol/Ipratropium (Duoneb 3 Mg/0.5 Mg (3 Ml) Ud) 3 ml IH Q2H PRN PRN Reason: Shortness of Breath Enoxaparin Sodium (Lovenox) 30 mg SC DAILY [facility]; Protocol Midazolam 100 mg/100ml in NS (Midazolam 100 Mg/100ml In Ns) 100 mg in 100 mls @ 1 mls/hr IV .Q24H PRN; Protocol PRN Reason: Sedation Last Admin: 03/31/18 05:35 Dose: 1 mg/hr, 1 mls/hr Vancomycin HCl (Vancomycin 1gm) 1 gm in 250 mls @ 167 mls/hr IVPB DAILY [facility]; Protocol Piperacillin Sod/Tazobactam Sod (Zosyn 3.375 In Ns 100ml) 100 mls @ 25 mls/hr IVPB Q8 [facility]; Protocol Stop: 03/31/18 17:59 Sodium Chloride (Sodium Chloride 0.9%) 1,000 mls @ 125 mls/hr IV .Q8H [facility] Methylprednisolone (Solu-Medrol) 60 mg IVP Q12 [facility] Midodrine (Proamatine) 5 mg PO TID [facility] Physical Exam - Head Exam Head Exam: ATRAUMATIC, NORMAL INSPECTION, NORMOCEPHALIC - Eye Exam Eye Exam: EOMI, Normal appearance - ENT Exam ENT Exam: Mucous Membranes Moist - Respiratory Exam Respiratory Exam: Rhonchi, NORMAL BREATHING PATTERN. absent: Clear to Auscultation Bilateral - Cardiovascular Exam Cardiovascular Exam: REGULAR RHYTHM, +S1, +S2 - GI/Abdominal Exam GI & Abdominal Exam: Normal Bowel Sounds, Soft - Extremities Exam Extremities exam: Negative for: normal inspection (excoriations) - Neurological Exam Additional comments: cant assess as patient is intubated and sedated - Skin Skin Exam: Normal Color, Warm Results - Vital Signs Recent Vital Signs: Last Vital Signs Temp 101 F H 03/31/18 02:30 Pulse 89 03/31/18 05:00 Resp 20 03/31/18 05:00 BP 101/54 L 03/31/18 05:00 Pulse Ox 100 03/31/18 05:00 - Labs Result Diagrams: 03/31/18 02:20 03/31/18 02:20 Labs: Laboratory Results - last 24 hr 03/31/18 03/31/18 03/31/18 02:20 02:20 02:20 WBC 17.4 H D RBC 3.40 L Hgb 9.7 L Hct 33.3 L MCV 97.9 D MCH 28.5 MCHC 29.1 L RDW 19.7 H Plt Count 254 MPV 10.8 Gran % 77.8 H Lymph % (Auto) 15.2 L Addison % (Auto) 4.9 Eos % (Auto) 1.8 Baso % (Auto) 0.3 Gran # 13.57 H Lymph # (Auto) 2.7 Addison # (Auto) 0.9 H Eos # (Auto) 0.3 Baso # (Auto) 0.05 pCO2 pO2 150 H HCO3 ABG pH ABG Total CO2 ABG O2 Saturation ABG O2 Content ABG Base Excess ABG Hemoglobin ABG Carboxyhemoglobin POC ABG HHb (Measured) ABG Methemoglobin ABG O2 Capacity VBG pH 7.06 L* VBG pCO2 108.0 H* VBG HCO3 30.6 H VBG Total CO2 33.9 H VBG O2 Sat (Calc) 99.9 H VBG Base Excess -2.8 L VBG Potassium 5.5 H Hgb O2 Saturation Sodium 141.0 142 Chloride 106.0 104 Glucose 300 H Lactate 1.1 FiO2 21.0 Potassium 5.5 H Carbon Dioxide 29 Anion Gap 14 BUN 25 H Creatinine 1.8 H Est GFR ( Amer) 35 Est GFR (Non-Af Amer) 29 Random Glucose 288 H Calcium 7.9 L Phosphorus 8.1 H Magnesium 1.6 L Total Bilirubin 0.9 AST 151 H D ALT 93 H Alkaline Phosphatase 115 NT-Pro-B Natriuret Pep 3260 H Total Protein 7.2 Albumin 4.0 Globulin 3.2 Albumin/Globulin Ratio 1.2 Venous Blood Potassium 5.5 H Influenza Typ A,B (EIA) 03/31/18 03/31/18 04:00 05:00 WBC RBC Hgb Hct MCV MCH MCHC RDW Plt Count MPV Gran % Lymph % (Auto) Addison % (Auto) Eos % (Auto) Baso % (Auto) Gran # Lymph # (Auto) Addison # (Auto) Eos # (Auto) Baso # (Auto) pCO2 63 H pO2 343.0 H HCO3 25.2 ABG pH 7.21 L ABG Total CO2 27.1 ABG O2 Saturation 99.6 H ABG O2 Content 11.2 L ABG Base Excess -2.8 L ABG Hemoglobin 7.7 L ABG Carboxyhemoglobin 3.2 H POC ABG HHb (Measured) 0.4 ABG Methemoglobin 1.5 ABG O2 Capacity 11.2 L VBG pH VBG pCO2 VBG HCO3 VBG Total CO2 VBG O2 Sat (Calc) VBG Base Excess VBG Potassium Hgb O2 Saturation 94.9 L Sodium Chloride Glucose Lactate FiO2 100.0 Potassium Carbon Dioxide Anion Gap BUN Creatinine Est GFR ( Amer) Est GFR (Non-Af Amer) Random Glucose Calcium Phosphorus Magnesium Total Bilirubin AST ALT Alkaline Phosphatase NT-Pro-B Natriuret Pep Total Protein Albumin Globulin Albumin/Globulin Ratio Venous Blood Potassium Influenza Typ A,B (EIA) Negative for flu a/b Assessment & Plan - Assessment and Plan (Free Text) Assessment: Patient is a 57 female with history of breast cancer, COPD, anxiety, pneumonia, pleural effusions, CKD who presented to the ED in respiratory distress which required intubation Neurological -Sedated on Midazolam Cardiovascular -Maintain MAP >65 -Continue with midodrine Respiratory -Intubated -PRVC settings FiO2 100, PEEP 5, RR 20, TV 400 -Duonebs PRN and Scheduled -Continue Solumedrol Infectious disease -Continue with Vancomycin and Zosyn -Procalcitonin -ID consult Renal -replete electrolytes as needed -Monitor hyperkalemia -Monitor I&O Heme -Lovenox for prophylaxis GI -Protonix for prophylaxis <Bri Brooks - Last Filed: 03/31/18 19:29> Meds - Medications Medications: Current Medications Acetylcysteine (Acetylcysteine 20%) 4 ml IH BIDRESP [facility] Albuterol/Ipratropium (Duoneb 3 Mg/0.5 Mg (3 Ml) Ud) 3 ml IH [id number] [facility] Last Admin: 03/31/18 13:31 Dose: 3 ml Albuterol/Ipratropium (Duoneb 3 Mg/0.5 Mg (3 Ml) Ud) 3 ml IH Q2H PRN PRN Reason: Shortness of Breath Last Admin: 03/31/18 12:25 Dose: 3 ml Alprazolam (Xanax) 0.5 mg PO QID [facility]; Protocol Last Admin: 03/31/18 17:05 Dose: 0.5 mg Aspirin (Ecotrin) 81 mg PO DAILY [facility] Atorvastatin Calcium (Lipitor) 10 mg PO HS [facility] Budesonide (Pulmicort Respules) 0.5 mg IH [id number] [facility] Enoxaparin Sodium (Lovenox) 30 mg SC DAILY [facility]; Protocol Last Admin: 03/31/18 09:40 Dose: 30 mg Famotidine (Pepcid) 20 mg PO DAILY [facility] Midazolam 100 mg/100ml in NS (Midazolam 100 Mg/100ml In Ns) 100 mg in 100 mls @ 1 mls/hr IV .Q24H PRN; Protocol PRN Reason: Sedation Last Admin: 03/31/18 05:35 Dose: 1 mg/hr, 1 mls/hr Sodium Chloride (Sodium Chloride 0.9%) 1,000 mls @ 100 mls/hr IV .Q10H [facility] Last Admin: 03/31/18 07:30 Dose: 100 mls/hr Meropenem/Sodium Chloride (Merrem Iv 500 Mg/Ns 50 Ml) 500 mg in 50 mls @ 100 mls/hr IVPB Q12 [facility]; Protocol Stop: 04/09/18 16:40 Last Admin: 03/31/18 17:05 Dose: 100 mls/hr Doxycycline Hyclate 100 mg/ (Sodium Chloride) 100 mls @ 100 mls/hr IVPB Q12 [facility]; Protocol Stop: 04/09/18 22:01 Methylprednisolone (Solu-Medrol) 60 mg IVP Q12 [facility] Last Admin: 03/31/18 09:39 Dose: 60 mg Midodrine (Proamatine) 5 mg PO TID [facility] Last Admin: 03/31/18 17:05 Dose: 5 mg Montelukast Sodium (Singulair) 10 mg PO HS [facility] Oxycodone/Acetaminophen (Percocet 5/325 Mg Tab) 1 tab PO Q6H PRN PRN Reason: Pain, moderate (4-7) Stop: 04/03/18 15:09 Pantoprazole Sodium (Protonix Inj) 40 mg IVP DAILY [facility] Last Admin: 03/31/18 09:40 Dose: 40 mg Roflumilast (Daliresp) 250 mcg PO DAILY [facility] Results - Vital Signs Recent Vital Signs: Last Vital Signs Temp 98.4 F 03/31/18 16:25 Pulse 99 H 03/31/18 18:00 Resp 23 03/31/18 16:10 BP 109/39 L 03/31/18 16:09 Pulse Ox 99 03/31/18 16:25 - Labs Result Diagrams: 03/31/18 02:20 03/31/18 13:30 Labs: Laboratory Results - last 24 hr 03/31/18 03/31/18 03/31/18 02:20 02:20 02:20 WBC 17.4 H D RBC 3.40 L Hgb 9.7 L Hct 33.3 L MCV 97.9 D MCH 28.5 MCHC 29.1 L RDW 19.7 H Plt Count 254 MPV 10.8 Gran % 77.8 H Lymph % (Auto) 15.2 L Addison % (Auto) 4.9 Eos % (Auto) 1.8 Baso % (Auto) 0.3 Gran # 13.57 H Lymph # (Auto) 2.7 Addison # (Auto) 0.9 H Eos # (Auto) 0.3 Baso # (Auto) 0.05 pCO2 pO2 150 H HCO3 ABG pH ABG Total CO2 ABG O2 Saturation ABG O2 Content ABG Base Excess ABG Hemoglobin ABG Carboxyhemoglobin POC ABG HHb (Measured) ABG Methemoglobin ABG O2 Capacity VBG pH 7.06 L* VBG pCO2 108.0 H* VBG HCO3 30.6 H VBG Total CO2 33.9 H VBG O2 Sat (Calc) 99.9 H VBG Base Excess -2.8 L VBG Potassium 5.5 H Hgb O2 Saturation Sodium 141.0 142 Chloride 106.0 104 Glucose 300 H Lactate 1.1 FiO2 21.0 Potassium 5.5 H Carbon Dioxide 29 Anion Gap 14 BUN 25 H Creatinine 1.8 H Est GFR ( Amer) 35 Est GFR (Non-Af Amer) 29 Random Glucose 288 H Calcium 7.9 L Phosphorus 8.1 H Magnesium 1.6 L Total Bilirubin 0.9 AST 151 H D ALT 93 H Alkaline Phosphatase 115 NT-Pro-B Natriuret Pep 3260 H Total Protein 7.2 Albumin 4.0 Globulin 3.2 Albumin/Globulin Ratio 1.2 Procalcitonin Venous Blood Potassium 5.5 H Influenza Typ A,B (EIA) 03/31/18 03/31/18 03/31/18 02:20 04:00 05:00 WBC RBC Hgb Hct MCV MCH MCHC RDW Plt Count MPV Gran % Lymph % (Auto) Addison % (Auto) Eos % (Auto) Baso % (Auto) Gran # Lymph # (Auto) Addison # (Auto) Eos # (Auto) Baso # (Auto) pCO2 63 H pO2 343.0 H HCO3 25.2 ABG pH 7.21 L ABG Total CO2 27.1 ABG O2 Saturation 99.6 H ABG O2 Content 11.2 L ABG Base Excess -2.8 L ABG Hemoglobin 7.7 L ABG Carboxyhemoglobin 3.2 H POC ABG HHb (Measured) 0.4 ABG Methemoglobin 1.5 ABG O2 Capacity 11.2 L VBG pH VBG pCO2 VBG HCO3 VBG Total CO2 VBG O2 Sat (Calc) VBG Base Excess VBG Potassium Hgb O2 Saturation 94.9 L Sodium Chloride Glucose Lactate FiO2 100.0 Potassium Carbon Dioxide Anion Gap BUN Creatinine Est GFR ( Amer) Est GFR (Non-Af Amer) Random Glucose Calcium Phosphorus Magnesium Total Bilirubin AST ALT Alkaline Phosphatase NT-Pro-B Natriuret Pep Total Protein Albumin Globulin Albumin/Globulin Ratio Procalcitonin 0.22 Venous Blood Potassium Influenza Typ A,B (EIA) Negative for flu a/b 03/31/18 03/31/18 08:50 13:30 WBC RBC Hgb Hct MCV MCH MCHC RDW Plt Count MPV Gran % Lymph % (Auto) Addison % (Auto) Eos % (Auto) Baso % (Auto) Gran # Lymph # (Auto) Addison # (Auto) Eos # (Auto) Baso # (Auto) pCO2 40 pO2 112.0 H HCO3 23.7 ABG pH 7.38 ABG Total CO2 24.9 ABG O2 Saturation 99.7 H ABG O2 Content 11.0 L ABG Base Excess -1.3 ABG Hemoglobin 7.9 L ABG Carboxyhemoglobin 2.2 H POC ABG HHb (Measured) 0.3 ABG Methemoglobin 0.9 ABG O2 Capacity 11.0 L VBG pH VBG pCO2 VBG HCO3 VBG Total CO2 VBG O2 Sat (Calc) VBG Base Excess VBG Potassium Hgb O2 Saturation 96.6 Sodium 141 Chloride 109 H Glucose Lactate FiO2 50.0 Potassium 5.0 Carbon Dioxide 24 Anion Gap 13 BUN 33 H Creatinine 2.0 H Est GFR ( Amer) 31 Est GFR (Non-Af Amer) 26 Random Glucose 256 H Calcium 7.0 L Phosphorus Magnesium Total Bilirubin AST ALT Alkaline Phosphatase NT-Pro-B Natriuret Pep Total Protein Albumin Globulin Albumin/Globulin Ratio Procalcitonin Venous Blood Potassium Influenza Typ A,B (EIA) Attending/Attestation - Attestation I have personally seen and examined this patient.: Yes I have fully participated in the care of the patient.: Yes I have reviewed all pertinent clinical information: Yes Notes (Text): 03/31/18 19:28 Acute on chronic hpercapneic respiratory failure R/O HCAP COPD exacerbation VDRF BRCA
[2018-03-31] MEDS: Piperacillin/Tazobact 3.375 gm 100 ML IVPB SCH ×2 (06:54→13:29)
[2018-03-31] MEDS: Albuterol-Ipratrop 3 mg / 0.5 (3 ml) UD IH SCH ×3 (07:25→19:41)
[2018-03-31] MEDS ORDERED: Dextrose 50% SYRINGE Inj (50 ml) IVP ONE (07:26)
[2018-03-31] MEDS ORDERED: Insulin Regular 1 UNITS/0.01 ML ML SC ONE (07:27)
[2018-03-31] MEDS: Sodium Chloride 0.9% 1,000 ML IV SCH ×2 (07:30→17:29)
[2018-03-31 09:00] LABS: ARTERIAL BLOOD GAS HCO3 23.7 mmol/L (21-28); ARTERIAL BLOOD GAS HEMOGLOBIN 7.9 g/dL (11.7-17.4); ARTERIAL BLOOD GAS O2 SAT 99.7 % (95-98); ARTERIAL BLOOD GAS PCO2 40 mm/Hg (35-45); ARTERIAL BLOOD GAS PH 7.38 (7.35-7.45); ARTERIAL BLOOD GAS TCO2 24.9 mmol.L (22-28)
[2018-03-31 09:13] VITALS: BMI 29.0
[2018-03-31] MEDS: Enoxaparin 30 mg Syringe SC SCH (09:40)
[2018-03-31] MEDS ORDERED: Vancomycin 1gm in NS 250ml 1 GM/250 ML BAG IVPB SCH (10:00)
--- NOTE | 2018-03-31 10:50 | CP.PCM.CON ---
History of Present Illness - History of Present Illness History of Present Illness: Nephrology Consultation Note: Assessment: critical acute on chronc respi acidosis with respi failure with renal compensation rt large pleural effusion with chest wall mass ? 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 Hypertension control with meds as ordered. Maintain hemodynamics stable. Avoid hypotension. Patient not on ACEI/ARB due to low BP Monitor Input/Output, daily weights and renal function with basic metabolic panel low K diet low Phos diet, will consider phos binders consider heme/onc eval for malignancy. will defer use of [place] in view of her recent breast malignancy with concerns for mets repeat renal sono in 6 months for cyst follow up start iron, MVI and weekly Vit D once orally accepting Dose meds/antibiotics for reduced GFR. Avoid fleets enema/magnesium based laxatives. Avoid nephrotoxins/NSAIDs/ iodinated contrast (unless needed emerge ntly) Glycemic control. pt need to stop smoking Further work up/management as per primary team Thanks for allowing me to participate in care of your patient. Will follow patient with you. Please call if any Qs. had d/w team Dr Marco Antonio Chatman Office: [phone] Chief Complaint; unable Reason for consult: CKD 3 HPI: Pt is a 57 F with hx of diabetes Mellitus ( years), hypertension (years) COPD/asthma, active smoker, breast cancer s/p surgery 2 years ago but didn't complete treatment now with mets, anemia, CKD stage 3 with baseline cr 1.8 mg/dL admitted with acute respi distress hypercapnic respi failure and intubated, now seen for CKD management Denies OTC/herbal meds or NSAIDs No recent iodinated contrast exposure. Noted obvious episodes of low BP. ROS: pt is intubated unable to provide Physical Examination: General Appearance: Comfortable, in no acute respiratory distress, orally intubated. Vitals reviewed and noted as below Head; Atraumatic, normocephalic ENT: orally intubated EYES: Pupils are equal, round and reactive to light accommodation. Eye muscles and extraocular movement intact. Sclera is anicteric. Neck; supple no lymphadenopathy, no thyromegaly or bruit Lungs: Normal respiratory rate/effort. Breath sounds reduced at base with b/l wheezing Heart: Normal rate. s1s2 normal. No rub or gallop. Extremities: trace edema. No varicose veins Neurological: Patient is sedated Skin: Warm and dry. Normal turgor. No rash. Palpitation: Normal elasticity for age Abdomen: Abdomen is soft. Bowel sounds +. There is no abdominal tenderness, no guarding/rigidity no organomegaly Psych: deferred MSK: no joint tenderness or swelling. Digits and nails normal, no deformity : kidney or bladder not palpable Labs/imaging reviewed. Past medical history, past surgical history, family history, social history, allergy reviewed and noted as below Family hx: no hx of CKD. Rest non-contributory renal imaging: b/l cysts echo normal LVEF TSAt 26% ferritin 45 Serum FLC assay WNL ABDIRIZAK neg PTH 154 Vit D 17 Past Patient History - Infectious Disease Hx of Infectious Diseases: None - Tetanus Immunizations Tetanus Immunization: Unknown - Past Medical History & Family History Past Medical History?: Yes - Past Social History Smoking Status: Former Smoker - CARDIAC Hx Cardiac Disorders: Yes Hx Hypertension: Yes - PULMONARY Hx Chronic Obstructive Pulmonary Disease (COPD): Yes - NEUROLOGICAL Hx Neurological Disorder: No - HEENT Hx HEENT Problems: No - RENAL Hx Chronic Kidney Disease: No - ENDOCRINE/METABOLIC Hx Diabetes Mellitus Type 2: Yes - HEMATOLOGICAL/ONCOLOGICAL Hx Blood Disorders: Yes (blood transfusion) Hx Cancer: Yes (left breast dx 06/2015) Hx Chemotherapy: Yes (2016 as per son) - INTEGUMENTARY Hx Dermatological Problems: No - MUSCULOSKELETAL/RHEUMATOLOGICAL Hx Falls: Yes - GASTROINTESTINAL Hx Gastrointestinal Disorders: No - GENITOURINARY/GYNECOLOGICAL Hx Genitourinary Disorders: No - PSYCHIATRIC Hx Psychophysiologic Disorder: Yes Hx Anxiety: Yes Hx Depression: Yes Hx Substance Use: No - SURGICAL HISTORY Hx Surgeries: Yes - ANESTHESIA Hx Anesthesia: Yes Hx Anesthesia Reactions: No Hx Malignant Hyperthermia: No Meds Allergies/Adverse Reactions: Allergies Allergy/AdvReac Type Severity Reaction Status Date / Time levofloxacin [From Levaquin] Allergy SHORTNESS Verified 03/31/18 02:26 OF BREATH;PARANOID nystatin Allergy SWELLING Verified 03/31/18 02:26 - Medications Medications: Current Medications Albuterol/Ipratropium (Duoneb 3 Mg/0.5 Mg (3 Ml) Ud) 3 ml IH [id number] [facility] Last Admin: 03/31/18 07:25 Dose: 3 ml Albuterol/Ipratropium (Duoneb 3 Mg/0.5 Mg (3 Ml) Ud) 3 ml IH Q2H PRN PRN Reason: Shortness of Breath Enoxaparin Sodium (Lovenox) 30 mg SC DAILY [facility]; Protocol Last Admin: 03/31/18 09:40 Dose: 30 mg Midazolam 100 mg/100ml in NS (Midazolam 100 Mg/100ml In Ns) 100 mg in 100 mls @ 1 mls/hr IV .Q24H PRN; Protocol PRN Reason: Sedation Last Admin: 03/31/18 05:35 Dose: 1 mg/hr, 1 mls/hr Vancomycin HCl (Vancomycin 1gm) 1 gm in 250 mls @ 167 mls/hr IVPB DAILY [facility]; Protocol Last Admin: 03/31/18 09:15 Dose: Not Given Piperacillin Sod/Tazobactam Sod (Zosyn 3.375 In Ns 100ml) 100 mls @ 25 mls/hr IVPB Q8 [facility]; Protocol Stop: 03/31/18 17:59 Last Admin: 03/31/18 06:54 Dose: Not Given Sodium Chloride (Sodium Chloride 0.9%) 1,000 mls @ 100 mls/hr IV .Q10H [facility] Last Admin: 03/31/18 07:30 Dose: 100 mls/hr Methylprednisolone (Solu-Medrol) 60 mg IVP Q12 [facility] Last Admin: 03/31/18 09:39 Dose: 60 mg Midodrine (Proamatine) 5 mg PO TID [facility] Last Admin: 03/31/18 09:40 Dose: 5 mg Pantoprazole Sodium (Protonix Inj) 40 mg IVP DAILY [facility] Last Admin: 03/31/18 09:40 Dose: 40 mg Results - Vital Signs Recent Vital Signs: Last Vital Signs Temp 101 F H 03/31/18 02:30 Pulse 94 H 03/31/18 06:15 Resp 20 03/31/18 07:25 BP 101/54 L 03/31/18 05:00 Pulse Ox 100 03/31/18 07:25 - Labs Result Diagrams: 03/31/18 02:20 03/31/18 02:20 Labs: Laboratory Results - last 24 hr 03/31/18 03/31/18 03/31/18 02:20 02:20 02:20 WBC 17.4 H D RBC 3.40 L Hgb 9.7 L Hct 33.3 L MCV 97.9 D MCH 28.5 MCHC 29.1 L RDW 19.7 H Plt Count 254 MPV 10.8 Gran % 77.8 H Lymph % (Auto) 15.2 L Kings % (Auto) 4.9 Eos % (Auto) 1.8 Baso % (Auto) 0.3 Gran # 13.57 H Lymph # (Auto) 2.7 Kings # (Auto) 0.9 H Eos # (Auto) 0.3 Baso # (Auto) 0.05 pCO2 pO2 150 H HCO3 ABG pH ABG Total CO2 ABG O2 Saturation ABG O2 Content ABG Base Excess ABG Hemoglobin ABG Carboxyhemoglobin POC ABG HHb (Measured) ABG Methemoglobin ABG O2 Capacity VBG pH 7.06 L* VBG pCO2 108.0 H* VBG HCO3 30.6 H VBG Total CO2 33.9 H VBG O2 Sat (Calc) 99.9 H VBG Base Excess -2.8 L VBG Potassium 5.5 H Hgb O2 Saturation Sodium 141.0 142 Chloride 106.0 104 Glucose 300 H Lactate 1.1 FiO2 21.0 Potassium 5.5 H Carbon Dioxide 29 Anion Gap 14 BUN 25 H Creatinine 1.8 H Est GFR ( Amer) 35 Est GFR (Non-Af Amer) 29 Random Glucose 288 H Calcium 7.9 L Phosphorus 8.1 H Magnesium 1.6 L Total Bilirubin 0.9 AST 151 H D ALT 93 H Alkaline Phosphatase 115 NT-Pro-B Natriuret Pep 3260 H Total Protein 7.2 Albumin 4.0 Globulin 3.2 Albumin/Globulin Ratio 1.2 Venous Blood Potassium 5.5 H Influenza Typ A,B (EIA) 03/31/18 03/31/18 03/31/18 04:00 05:00 08:50 WBC RBC Hgb Hct MCV MCH MCHC RDW Plt Count MPV Gran % Lymph % (Auto) Kings % (Auto) Eos % (Auto) Baso % (Auto) Gran # Lymph # (Auto) Kings # (Auto) Eos # (Auto) Baso # (Auto) pCO2 63 H 40 pO2 343.0 H 112.0 H HCO3 25.2 23.7 ABG pH 7.21 L 7.38 ABG Total CO2 27.1 24.9 ABG O2 Saturation 99.6 H 99.7 H ABG O2 Content 11.2 L 11.0 L ABG Base Excess -2.8 L -1.3 ABG Hemoglobin 7.7 L 7.9 L ABG Carboxyhemoglobin 3.2 H 2.2 H POC ABG HHb (Measured) 0.4 0.3 ABG Methemoglobin 1.5 0.9 ABG O2 Capacity 11.2 L 11.0 L VBG pH VBG pCO2 VBG HCO3 VBG Total CO2 VBG O2 Sat (Calc) VBG Base Excess VBG Potassium Hgb O2 Saturation 94.9 L 96.6 Sodium Chloride Glucose Lactate FiO2 100.0 50.0 Potassium Carbon Dioxide Anion Gap BUN Creatinine Est GFR ( Amer) Est GFR (Non-Af Amer) Random Glucose Calcium Phosphorus Magnesium Total Bilirubin AST ALT Alkaline Phosphatase NT-Pro-B Natriuret Pep Total Protein Albumin Globulin Albumin/Globulin Ratio Venous Blood Potassium Influenza Typ A,B (EIA) Negative for flu a/b
[2018-03-31] MEDS: Albuterol-Ipratrop 3 mg / 0.5 (3 ml) UD IH PRN ×2 (12:25→23:37)
--- NOTE | 2018-03-31 12:47 | CP.PCM.PN ---
Subjective - Date & Time of Evaluation Date of Evaluation: 03/31/18 Time of Evaluation: 09:00 - Subjective Subjective: Pt seen and examined on rounds, pt is intubated. Objective - Vital Signs/Intake and Output Vital Signs (last 24 hours): Temp Pulse Resp BP Pulse Ox 101 F H 91 H 20 101/54 L 100 03/31/18 02:30 03/31/18 10:00 03/31/18 07:25 03/31/18 05:00 03/31/18 07:25 - Medications Medications: Current Medications Albuterol/Ipratropium (Duoneb 3 Mg/0.5 Mg (3 Ml) Ud) 3 ml IH [id number] LUCIANO Last Admin: 03/31/18 07:25 Dose: 3 ml Albuterol/Ipratropium (Duoneb 3 Mg/0.5 Mg (3 Ml) Ud) 3 ml IH Q2H PRN PRN Reason: Shortness of Breath Enoxaparin Sodium (Lovenox) 30 mg SC DAILY LUCIANO; Protocol Last Admin: 03/31/18 09:40 Dose: 30 mg Midazolam 100 mg/100ml in NS (Midazolam 100 Mg/100ml In Ns) 100 mg in 100 mls @ 1 mls/hr IV .Q24H PRN; Protocol PRN Reason: Sedation Last Admin: 03/31/18 05:35 Dose: 1 mg/hr, 1 mls/hr Vancomycin HCl (Vancomycin 1gm) 1 gm in 250 mls @ 167 mls/hr IVPB DAILY LUICANO; Protocol Last Admin: 03/31/18 09:15 Dose: Not Given Piperacillin Sod/Tazobactam Sod (Zosyn 3.375 In Ns 100ml) 100 mls @ 25 mls/hr IVPB Q8 LUCIANO; Protocol Stop: 03/31/18 17:59 Last Admin: 03/31/18 06:54 Dose: Not Given Sodium Chloride (Sodium Chloride 0.9%) 1,000 mls @ 100 mls/hr IV .Q10H LUCIANO Last Admin: 03/31/18 07:30 Dose: 100 mls/hr Methylprednisolone (Solu-Medrol) 60 mg IVP Q12 LUCIANO Last Admin: 03/31/18 09:39 Dose: 60 mg Midodrine (Proamatine) 5 mg PO TID LUCIANO Last Admin: 03/31/18 09:40 Dose: 5 mg Pantoprazole Sodium (Protonix Inj) 40 mg IVP DAILY LUCIANO Last Admin: 03/31/18 09:40 Dose: 40 mg - Labs Labs: 03/31/18 02:20 03/31/18 02:20 - Constitutional Appears: No Acute Distress, Older Than Stated Age, Chronically Ill - Head Exam Head Exam: NORMAL INSPECTION - Eye Exam Eye Exam: Normal appearance - ENT Exam ENT Exam: Mucous Membranes Moist - Respiratory Exam Respiratory Exam: Decreased Breath Sounds, NORMAL BREATHING PATTERN - Cardiovascular Exam Cardiovascular Exam: REGULAR RHYTHM, +S1, +S2 - GI/Abdominal Exam GI & Abdominal Exam: Soft, Normal Bowel Sounds - Extremities Exam Extremities Exam: Full ROM - Neurological Exam Neurological Exam: Alert, Awake - Psychiatric Exam Psychiatric exam: Anxious - Skin Skin Exam: Normal Color, Warm Assessment and Plan - Assessment and Plan (Free Text) Assessment: Patient is 57yo female with PMH of COPD, asthma, DM2, breast cancer and xanax abuse presented with hypercapnic resp failure, intubated in the ER. Patient placed on CPAP trial this morning, did well for 45 minutes, subsequently extubated Patient currently afebrile, BP stable, comfortable in NAD, awake, following commands, ABG and labs noted CXR now with near complete white out of R lung; will implement aggressive chest PT, suctioning, duonebs, IS Hypercapnic Resp failure DM End stage COPD Hx breast CA Recommend: - supp o2 as needed, duonebs PRN, aggressive chest PT, suctioning, BIPAP as needed, repeat CXR at 1700 - Cefepime, Vanco, Doxy - follow up cultures - Solumedrol 40mg IV TID - NPO - FS control - discuss with family code status, patient was DNR/DNI on previous hospitalization in Nov; will need to clarify goals of care and code status - GI ppx - DVT ppx - Monitor in MICU Critical care time 35 minutes
--- NOTE | 2018-03-31 12:55 | RAD ---
Date of service: 03/31/2018 HISTORY: intubated, ? PNA COMPARISON: March 31, 2018 Time of the most recent examination: 02:48. FINDINGS: LUNGS: Progressive opacification of the right hemithorax and volume loss. The most likely scenario is atelectasis given the degree and repeated the with which this has evolved. PLEURA: Right pleural effusion inseparable from findings in the right lung. CARDIOVASCULAR: No atherosclerotic calcification present Venous access catheter in stable, satisfactory position. OSSEOUS STRUCTURES: No significant abnormalities. VISUALIZED UPPER ABDOMEN: Normal. OTHER FINDINGS: Stable, satisfactory position ventilatory, vascular and nasogastric apparatus IMPRESSION: Progressive opacification/volume loss within the right hemithorax.
[2018-03-31] MEDS: MEROPENEM 500 MG in NS 500 MG/50 ML BAG IVPB SCH ×2 (17:05→21:41)
--- NOTE | 2018-03-31 17:44 | RAD ---
Date of service: 03/31/2018 HISTORY: R PNA COMPARISON: March 31, 2018 Time of the most recent examination: 11:15 FINDINGS: LUNGS: Continued progressive opacification right hemithorax with volume loss. Compensatory hyperinflation left lung. PLEURA: Right pleural effusions identified on prior studies inseparable from the findings in the right lung. CARDIOVASCULAR: No atherosclerotic calcification present Venous access catheter in stable, satisfactory position. OSSEOUS STRUCTURES: No significant abnormalities. VISUALIZED UPPER ABDOMEN: Normal. OTHER FINDINGS: Removal of support apparatus since the prior study: The patient has been extubated and the nasogastric tube removed. IMPRESSION: Progressive atelectasis/volume loss right lung.
--- NOTE | 2018-03-31 18:24 | CON ---
DATE: 03/31/2018 PULMONARY CONSULT NOTE REFERRING PHYSICIAN: Sloan Sosa MD REASON FOR CONSULTATION: Respiratory failure, chronic lung disease. HISTORY OF PRESENT ILLNESS: This is a 57-year-old female known to us from previous admissions, history of noncompliance with followup and with medical instructions. The patient has a past medical history significant for chronic obstructive lung disease, breast cancer, progressive disease with metastatic disease, recurrent UTIs, diabetes. The patient was brought into the emergency room in severe respiratory distress. Today, the patient reports cough, shortness of breath, congestion. While the patient was in the emergency room, the patient was intubated; presently, the patient is extubated. PAST MEDICAL HISTORY: COPD, asthma, breast cancer, anxiety, chronic back pain, insulin-dependent diabetes mellitus, recurrent urinary tract infections, metastatic disease, active smoker, anemia, chronic kidney disease, pneumonia, pleural effusions. ALLERGIES: LEVOFLOXACIN AND NYSTATIN. SOCIAL HISTORY: Active smoker, history of ETOH abuse and illicit drug use. FAMILY HISTORY: No significant cardiopulmonary disease reported. MEDICATIONS: DuoNeb 3 mL inhalation every 2 hours p.r.n., DuoNeb 3 mL inhalation every 6 hours, Xanax 0.5 mg 4 times a day, aspirin 81 mg daily, Lipitor 10 mg h.s., doxycycline 100 mg every 12 hours, Lovenox 30 mg subcu daily, Pepcid 20 mg daily, meropenem 500 mg every 12 hours, Solu-Medrol 60 mg every 12 hours, midazolam 100 mg p.r.n., midodrine 5 mg three times a day, Percocet 5/325 mg 1 tab every 6 hours p.r.n. moderate pain, Protonix 40 mg daily, sodium chloride 0.9% 1000 mL at 100 mL per hour. REVIEW OF SYSTEMS: Reporting cough, congestion, unable to expectorate sputum, shortness of breath. No headache, rhinitis, chest pain, abdominal pain, nausea, vomiting, diarrhea, leg pain or leg swelling reported. PHYSICAL EXAMINATION: VITAL SIGNS: Blood pressure 109/39, pulse 108, temperature 98.4, and oxygen saturation 98%. GENERAL: No acute distress. HEENT: Moist mucous membranes. NECK: Supple. No JVD. LUNGS: Rhonchi and wheezing bilaterally. CARDIOVASCULAR: S1 and S2 audible. ABDOMEN: Soft and nontender. No distension. No organomegaly. EXTREMITIES: No bilateral lower extremity edema. NEUROLOGIC: Awake, alert and verbal. Follows commands. LABORATORY DATA: Reviewed. WBC 17.4, RBC 3.4, hemoglobin 9.7, hematocrit 33.3, and platelets 254. PCO2 40, pO2 112, HCO3 23.7. ABG: pH 7.38. Sodium 141, potassium 5, chloride 109, carbon dioxide 34, anion gap 13, BUN 33, creatinine 2, GFR 26, random glucose 256, calcium 7, procalcitonin 0.22, influenza type A and B negative for flu. Chest x-ray shows progressive opacification or volume loss within the right hemithorax. Chest x-ray done this afternoon, pending report. IMPRESSION AND PLAN: Respiratory failure, presently extubated, chronic obstructive lung disease, history of breast cancer, anemia, diabetes, recurrent urinary tract infection, noncompliance, active smoker, chronic anxiety, chronic back pain, anemia, cannot rule out metastatic disease to right lung. We will add Daliresp 250 mg daily. We will add Pulmicort and Mucomyst inhalers. We will add Singulair. Continue the patient on steroids. Continue antibiotic therapy. Overall, prognosis is poor. Gastric prophylaxis, fall precaution, deep venous thrombosis prophylaxis. We have suspected sleep apnea in this patient. The patient refuses to use continuous positive airway pressure machine. Echocardiogram from 03/09/2018 revealed an ejection fraction of 63, right ventricular systolic pressure 34. We will order labs and chest x-ray for the morning. This patient was seen and examined with Dr. Rucker. Discussed the assessment and plan as described above. Thank you for this consult. We will follow with you. Didier Dennis APN Lisa Rucker MD
[2018-03-31] MEDS: Acetylcysteine 20% Inhal Soln (4ml) IH SCH (19:41)
[2018-03-31] MEDS: Budesonide 0.5 mg/2 ml Inhal Susp UD IH SCH (19:42)
--- NOTE | 2018-03-31 20:41 | CARD ---
APPROVED REPORT Date of service: 03/31/2018 EKG Measurement Heart [id number] <Conclusion> Sinus tachycardia Nonspecific ST and T wave abnormality Abnormal ECG
[2018-03-31] MEDS: Oxycodone/Acetaminophen 5/325 mg Tab PO PRN (21:42)
--- NOTE | 2018-03-31 22:17 | CON ---
DATE: 03/31/2018 LOCATION: The patient is in ICU, was seen earlier today in 128, bed 1. CHIEF COMPLAINT: Respiratory failure x1 day duration. HISTORY OF PRESENT ILLNESS: This is a 57-year-old female, known to me from multiple admissions in the past, who was recently discharged from the hospital, and she was admitted with respiratory failure and intubated on the ventilator. The patient is unable to give any information. REVIEW OF SYSTEMS: Twelve-point review of systems is performed. PAST MEDICAL HISTORY: Significant for chronic obstructive lung disease, breast cancer, asthma, anxiety, chronic back pain, multiple recurrent urinary tract infections, hernia, and the patient has had chemotherapy for the breast cancer and blood transfusions. The patient also has had depression. PAST SURGICAL HISTORY: Significant for . ALLERGIES: THE PATIENT IS ALLERGIC TO LEVAQUIN AND NYSTATIN. MEDICATIONS AT HOME: Reviewed, includes Xanax and insulin. PHYSICAL EXAMINATION: GENERAL: The patient is in bed, intubated on the ventilator. VITAL SIGNS: With a temperature of 98; T-max is 101 earlier; heart rate of 99 up to 108, respiratory rate, on the vent; blood pressure is 109/39. HEENT: Reveals ET tube to be in place. NECK: Supple. LUNGS: Have decreased breath sounds. HEART: Normal S1 and S2. ABDOMEN: Soft, nontender. LABORATORY EXAMINATION: Reveals a white count of 17,400, hemoglobin of 9, platelets of 254. Gases are reviewed. BUN of 25, creatinine is 1.8. The patient has a history of renal disease and renal stones; had an elevated creatinine in the past. Bicarb is 29. The BNP is 3260. Influenza is negative. Microbiology is pending. The patient had a chest x-ray, which shows progressive opacification of the right side. Dr. Dusty Khan's note is reviewed. ASSESSMENT AND PLAN: This is a 57-year-old female with chronic obstructive lung disease, breast cancer, anxiety, depression, urinary tract infections in the past, and now presenting with respiratory failure, fever, tachycardia, leukocytosis, and with severe sepsis with hypercapnic respiratory failure, intubated on the ventilator with right-sided healthcare-associated pneumonia, and we will treat the patient with doxycycline and meropenem, pending blood cultures, sputum cultures, urine cultures, methicillin-resistant Staphylococcus aureus screen. We will give a dose of vancomycin, pending procalcitonin and pancultures. intermittent vancomycin and meropenem therapy, we will also use doxycycline. We will follow with you, and we will make further recommendations. Prasanth Malcolm MD
[2018-04-01] MEDS: Albuterol-Ipratrop 3 mg / 0.5 (3 ml) UD IH SCH ×4 (02:07→19:23)
--- NOTE | 2018-04-01 04:50 | HP ---
DATE OF EXAM: 03/31/2018 REASON FOR ADMISSION: Acute respiratory distress. HISTORY OF PRESENT ILLNESS: A 57-year-old female with history of COPD, oxygen dependent, multiple nebulizers treatment, with recurrent admissions for respiratory failure in the past. The patient came in to the ER, found to be in acute severe respiratory distress, tachypneic, tachycardic. She is awake, alert, and oriented x3. When she came in, the ER physician noticed her respiratory distress severity and intubated her. PAST MEDICAL HISTORY: As above, she does have history of recurrent respiratory failure with multiple intubations. She also has chronic renal insufficiency, insulin-dependent diabetes, hypertension, breast CA, noncompliance. ALLERGIES: SHE IS ALLERGIC TO NYSTATIN AND LEVOFLOXACIN. SOCIAL HISTORY: She lives with her kids. She lives by herself. She is a . She has two kids and she is on disability. She quit smoking, may be two months ago. REVIEW OF SYSTEMS: The patient is noted to have some cough, wheezing, anxiety, chronic back pain, and urine incontinence. MEDICATIONS AT HOME: She takes a lot of medicines including simvastatin 10 mg daily, Percocet one every 6 hours, Pepcid 20, aspirin 81, Xanax 0.5 q.i.d., oxycodone one every 8 hours 5 mg, vitamin B complex, nicotine patch once a day, Lasix 40 p.o. daily, iron pills t.i.d., vitamin D once a week, DuoNeb at home, Advair at home 1 puff b.i.d. PHYSICAL EXAMINATION GENERAL: The patient intubated initially and when the patient was seen in ICU, the patient already got extubated. She has tried to pull the tube and she got extubated by the meter setter, seems doing well. VITAL SIGNS: Her temperature is 98, heart rate is 107, blood pressure 109/39, respirations 24, saturating 97%. HEAD AND NECK: Normal. No JVD. No thyromegaly. CHEST: There are diminished breath sounds. CARDIAC: First sound and second sound normal. ABDOMEN: Soft, obese, nontender. EXTREMITIES: Mild edema. NEUROLOGIC: Normal. LABORATORY STUDIES: White count 17.4, hemoglobin 9.7, hematocrit 33.3, platelets 254. Chemistry; sodium 142, potassium 5.5, chloride 104, bicarb 29, BUN 25, creatinine 1.8. The patient's liver function; AST 151, ALT 93, proBNP 3260, and procalcitonin 0.22. She also had serology which is Haemophilus influenza negative. She had an ABG, which shows venous blood, pH 7.06, PCO2 of 108, O2 saturation . Some reports done, which include a chest x-ray that shows progressive opacifications with volume loss of the right hemothorax. IMPRESSION AND PLAN: 1. Acute respiratory failure. The patient intubated initially, then extubated, seems doing well. Continue IV Solu-Medrol. Continue meropenem IV every 12 hours. We also continue doxycycline 100 IV b.i.d. Continue nebulizer treatment and continue Mucomyst. We will get a Pulmonary consult, Dr. Rucker and will follow up clinically. 2. Chronic renal failure. 3. Diabetes, hypercholesterolemia, hypertension, resume all medications. Monitor patient clinically. Continue gastrointestinal and deep venous thrombosis prophylaxis. The patient is in intensive care unit. We will repeat labs in the morning. Sloan Sosa MD
[2018-04-01] MEDS: Oxycodone/Acetaminophen 5/325 mg Tab PO PRN ×3 (05:09→20:01)
[2018-04-01] MEDS: Pantoprazole 40 mg EC Tab PO SCH (05:09)
[2018-04-01] MEDS: Albuterol-Ipratrop 3 mg / 0.5 (3 ml) UD IH PRN ×3 (05:36→23:47)
[2018-04-01 05:48] LABS: GRAN # 7.25 (1.4-6.5); GRAN % 94.4 % (50.0-68.0); HEMOGLOBIN 7.6 g/dL (12.0-16.0); LYMPH # 0.2 (1.2-3.4); LYMPH % 2.6 % (22.0-35.0); MEAN CELL VOLUME 96.7 fl (80.0-105.0); MEAN PLATELET VOLUME 9.9 fl (7.0-11.0); MONO # 0.2 (0.1-0.6); PLATELET COUNT 164 10^3/uL (120.0-450.0); RBC 2.71 10^6/uL (3.5-6.1); RED CELL DISTRIBUTION WIDTH 19.4 % (11.5-14.5); WHITE BLOOD COUNT 7.7 10^3/uL (4.5-11.0)
[2018-04-01 06:15] LABS: ALB/GLOB RATIO 1.2 (1.1-1.8); ALBUMIN 3.2 g/dL (3.0-4.8); CALCIUM 6.5 mg/dL (8.4-10.5)
[2018-04-01] MEDS: Budesonide 0.5 mg/2 ml Inhal Susp UD IH SCH ×2 (07:20→19:22)
[2018-04-01] MEDS: Acetylcysteine 20% Inhal Soln (4ml) IH SCH ×2 (07:20→19:22)
[2018-04-01] MEDS: Sodium Chloride 0.9% 1,000 ML IV SCH (07:45)
[2018-04-01] MEDS ORDERED: Sod Polystyrene Sulf 15 gm/60 ml Susp PO ONE ×3 (09:07→14:33)
[2018-04-01] MEDS: MEROPENEM 500 MG in NS 500 MG/50 ML BAG IVPB SCH ×2 (09:44→21:03)
[2018-04-01] MEDS: Enoxaparin 30 mg Syringe SC SCH (09:44)
[2018-04-01] MEDS: Ergocalciferol 50,000 Intl Units Cap PO SCH (09:45)
[2018-04-01] MEDS: Magnesium Oxide 400 mg Tab UD PO SCH ×2 (09:45→17:29)
--- NOTE | 2018-04-01 10:22 | PN ---
DATE: 04/01/2018 PULMONARY PROGRESS NOTE REFERRING PHYSICIAN: Sloan Sosa MD SUBJECTIVE: The patient is sitting up in bed. No acute distress. No overnight events reported. The patient continues to report shortness of breath, cough and congestion. No headache, rhinitis, chest pain, abdominal pain, nausea, vomiting, diarrhea, leg pain, or leg swelling reported. OBJECTIVE: GENERAL: No acute distress. VITAL SIGNS: Blood pressure 123/70, pulse 112, temperature 98.4 and oxygen saturation 99%. HEENT: Moist mucous membranes. NECK: Supple. No JVD. LUNGS: Rhonchi and wheezing bilaterally. Diminished breath sounds in the right. CARDIOVASCULAR: S1 and S2, audible and tachycardic. ABDOMEN: Soft and nontender. No distention. No organomegaly. EXTREMITIES: No bilateral lower extremity edema. NEUROLOGIC: Awake, alert, and verbal. Follows commands. MEDICATIONS: Reviewed. Mucomyst 4 mL inhalation twice a day, DuoNeb 3 mL inhalation every 2 hours p.r.n., DuoNeb 3 mL inhalation every 6 hours, Xanax 0.5 mg three times a day p.r.n., aspirin 81 mg daily, Lipitor 10 mg at bedtime, Pulmicort 0.5 mg every 12 hours, calcium acetate 1334 mg , doxycycline 100 mg every 12 hours, Lovenox 30 mg subcutaneous daily, ergocalciferol 50,000 units every 7 days, Pepcid 20 mg daily, ferrous gluconate 324 mg three times a day, magnesium oxide 400 mg twice a day, meropenem 500 mg every 12 hours, Solu-Medrol 60 mg every 12 hours, midazolam 100 mg daily p.r.n., Singulair 10 mg at bedtime, nicotine patch daily, Percocet 5/325 mg every 6 hours p.r.n. for moderate pain, Protonix 40 mg daily, Daliresp 250 mcg daily, sodium chloride 0.9% of 1000 mL of 100 mL per hour and Nephro-Enrrique one tab daily. LABORATORY DATA: Reviewed. WBC 7.7, RBC 2.71, hemoglobin 10.6, hematocrit 26.2 and platelets 164. Sodium 141, potassium 5.6, chloride 108, carbon dioxide 24, anion gap 15, BUN 44, creatinine 2.7, GFR 18, random glucose 261, calcium 6.5, phosphorous 7.9, magnesium 1.4, total bilirubin 0.3, AST 44, ALT 91, alkaline phosphatase 70, total protein 5.9, albumin 3.9, globulin 2.7 and albumin-globulin ratio 1.2. Blood culture preliminary no growth after 24 hours. Chest x-ray report pending. IMPRESSION AND PLAN: Respiratory failure was on ventilator, presently extubated, chronic obstructive lung disease, history of breast cancer, anemia, diabetes, recurrent urinary tract infection, noncompliance with treatment plan, active smoker, chronic anxiety, chronic back pain, anemia, cannot rule out metastatic disease to right lung. The patient has refused treatment for breast cancer in the past. Continue inhaled bronchodilators. Leukotriene inhibitors. Continue steroids, antibiotic therapy, gastric prophylaxis, fall precaution and deep venous thrombosis prophylaxis. We do suspect sleep apnea in this patient. The patient is refused to use continuous positive airway pressure machine. We will order Kayexalate x1 dose, potassium on 5.6. Continue incentive spirometry. We will order chest physiotherapy. We will order chest x-ray and labs in the morning. Critical care time spent more than 35 minutes. This patient was seen and examined with Dr. Rucker. Discussed the assessment and plan as described above. Thank you for this consult. We will follow with you. Didier Dennis APN Lisa Rucker MD SAADIA
--- NOTE | 2018-04-01 10:33 | RAD ---
Date of service: 04/01/2018 HISTORY: follow up COMPARISON: Multiple serial examinations preceding the most recent study: March 31, 2018. FINDINGS: LUNGS: Marked improvement in aeration of the right upper lobe. Dense consolidative changes/atelectasis remain right middle right lower lobe. PLEURA: No significant pleural effusion identified, no pneumothorax apparent. CARDIOVASCULAR: No atherosclerotic calcification present Venous access catheter in stable, satisfactory position. OSSEOUS STRUCTURES: No significant abnormalities. VISUALIZED UPPER ABDOMEN: Normal. OTHER FINDINGS: None. IMPRESSION: Improved aeration primarily right upper lobe compared to multiple serial studies.
--- NOTE | 2018-04-01 11:08 | CP.PCM.PN ---
Subjective - Date & Time of Evaluation Date of Evaluation: 04/01/18 Time of Evaluation: 08:00 - Subjective Subjective: Patient seen and examined, no major complaints, denies SOB, CP. Currently having breakfast. Objective - Vital Signs/Intake and Output Vital Signs (last 24 hours): Temp Pulse Resp BP Pulse Ox 98.4 F 123 H 19 123/70 100 04/01/18 08:22 04/01/18 08:22 04/01/18 08:22 04/01/18 08:00 04/01/18 08:20 Intake and Output: 04/01/18 04/01/18 06:59 18:59 Intake Total 1900 Output Total 325 Balance 1575 - Medications Medications: Current Medications Acetylcysteine (Acetylcysteine 20%) 4 ml IH BIDRESP [facility] Last Admin: 04/01/18 07:20 Dose: 4 ml Albuterol/Ipratropium (Duoneb 3 Mg/0.5 Mg (3 Ml) Ud) 3 ml IH [id number] [facility] Last Admin: 04/01/18 07:19 Dose: 3 ml Albuterol/Ipratropium (Duoneb 3 Mg/0.5 Mg (3 Ml) Ud) 3 ml IH Q2H PRN PRN Reason: Shortness of Breath Last Admin: 04/01/18 05:36 Dose: 3 ml Alprazolam (Xanax) 0.5 mg PO TID PRN; Protocol PRN Reason: Anxiety Last Admin: 04/01/18 05:09 Dose: 0.5 mg Aspirin (Ecotrin) 81 mg PO DAILY [facility] Last Admin: 04/01/18 09:45 Dose: 81 mg Atorvastatin Calcium (Lipitor) 10 mg PO HS [facility] Last Admin: 03/31/18 21:43 Dose: 10 mg Budesonide (Pulmicort Respules) 0.5 mg IH [id number] [facility] Last Admin: 04/01/18 07:20 Dose: 0.5 mg Calcium Acetate (Phoslo) 1,334 mg PO WM [facility] Enoxaparin Sodium (Lovenox) 30 mg SC DAILY [facility]; Protocol Last Admin: 04/01/18 09:44 Dose: 30 mg Ergocalciferol (Drisdol 50,000 Intl Units Cap) 1 cap PO Q7D [facility] Last Admin: 04/01/18 09:45 Dose: 1 cap Famotidine (Pepcid) 20 mg PO DAILY [facility] Last Admin: 04/01/18 09:44 Dose: 20 mg Ferrous Gluconate (Fergon) 324 mg PO TID [facility] Last Admin: 04/01/18 09:44 Dose: 324 mg Midazolam 100 mg/100ml in NS (Midazolam 100 Mg/100ml In Ns) 100 mg in 100 mls @ 1 mls/hr IV .Q24H PRN; Protocol PRN Reason: Sedation Last Admin: 03/31/18 05:35 Dose: 1 mg/hr, 1 mls/hr Sodium Chloride (Sodium Chloride 0.9%) 1,000 mls @ 100 mls/hr IV .Q10H [facility] Last Admin: 04/01/18 07:45 Dose: 100 mls/hr Meropenem/Sodium Chloride (Merrem Iv 500 Mg/Ns 50 Ml) 500 mg in 50 mls @ 100 mls/hr IVPB Q12 [facility]; Protocol Stop: 04/09/18 16:40 Last Admin: 04/01/18 09:44 Dose: 100 mls/hr Doxycycline Hyclate 100 mg/ (Sodium Chloride) 100 mls @ 100 mls/hr IVPB Q12 [facility]; Protocol Stop: 04/09/18 22:01 Last Admin: 04/01/18 09:43 Dose: 100 mls/hr Calcium Gluconate 1,000 mg/ (Dextrose) 110 mls @ 110 mls/hr IVPB Q1H [facility] Stop: 04/01/18 11:14 Last Admin: 04/01/18 10:44 Dose: 110 mls/hr Magnesium Oxide (Mag-Ox) 400 mg PO BID [facility] Last Admin: 04/01/18 09:45 Dose: 400 mg Methylprednisolone (Solu-Medrol) 20 mg IVP Q12H [facility] Montelukast Sodium (Singulair) 10 mg PO HS [facility] Last Admin: 03/31/18 21:43 Dose: 10 mg Nicotine (Nicoderm Cq) 1 patch TD DAILY [facility] Last Admin: 04/01/18 09:46 Dose: 1 patch Oxycodone/Acetaminophen (Percocet 5/325 Mg Tab) 1 tab PO Q6H PRN PRN Reason: Pain, moderate (4-7) Stop: 04/03/18 15:09 Last Admin: 04/01/18 05:09 Dose: 1 tab Pantoprazole Sodium (Protonix Ec Tab) 40 mg PO 0600 [facility] Last Admin: 04/01/18 05:09 Dose: 40 mg Roflumilast (Daliresp) 250 mcg PO DAILY [facility] Last Admin: 04/01/18 09:45 Dose: 250 mcg Vitamin B Complex/Vit C/Folic Acid (Nephro-Enrrique) 1 tab PO 0800 [facility] - Labs Labs: 04/01/18 05:30 04/01/18 05:30 - Constitutional Appears: Non-toxic, Older Than Stated Age, Chronically Ill - Head Exam Head Exam: NORMAL INSPECTION - Eye Exam Eye Exam: Normal appearance - ENT Exam ENT Exam: Mucous Membranes Moist - Respiratory Exam Respiratory Exam: Decreased Breath Sounds, NORMAL BREATHING PATTERN - Cardiovascular Exam Cardiovascular Exam: REGULAR RHYTHM, +S1, +S2 - GI/Abdominal Exam GI & Abdominal Exam: Soft, Normal Bowel Sounds - Extremities Exam Extremities Exam: Normal Inspection - Neurological Exam Neurological Exam: Alert, Awake, Oriented x3 - Psychiatric Exam Psychiatric exam: Anxious Assessment and Plan - Assessment and Plan (Free Text) Assessment: Patient is 57yo female with PMH of COPD, asthma, DM2, breast cancer and xanax abuse presented with hypercapnic resp failure, intubated in the ER. Patient extubated, passed speech swallow yesterday. Patient currently afebrile, BP stable, comfortable in NAD, awake, following commands, ABG and labs noted CXR today with better aeration of R lung Hyperkalemia, mild Hypercapnic Resp failure DM End stage COPD Hx breast CA Recommend: - supp o2 as needed, duonebs PRN, aggressive chest PT, suctioning, BIPAP as needed - broad spectrum abx as per ID - follow up cultures - taper, Solumedrol 40mg IV BID - regular diet - FS control - Kayex 30g x 1, repeat BMP - Pt wishes to remain full code - GI ppx - DVT ppx - Transfer to telemetry
[2018-04-01 11:21] LABS: BAND 4 % (0-2); LYMPHOCYTE 3 % (22.0-35.0); MONOCYTE 3 % (1.0-6.0); NEUTROPHIL 90 % (50.0-70.0)
[2018-04-01 11:22] LABS: ANISOCYTOSIS 1+; HYPOCHROMIA 2+; OVALOCYTES SLIGHT; PLATELET ESTIMATE NORMAL (NORMAL); POLYCHROMASIA 1+; TEAR DROP CELLS SLIGHT
--- NOTE | 2018-04-01 12:12 | PN ---
DATE: 04/01/2018 SUBJECTIVE: The patient is in bed in no acute distress. She is extubated. She appears to be comfortable. PHYSICAL EXAMINATION: VITAL SIGNS: Temperature is 98, heart rate of 117, respiratory rate of 26, blood pressure is 120/70. HEENT: Unremarkable. NECK: Supple. LUNGS: Decreased breath sounds. HEART: Normal, S1 and S2. ABDOMEN: Soft. LABORATORY DATA: Examination reveals the patient's white count is 7.7, hemoglobin of 7, and platelets of 164. Chemistries are noted. BUN of 24, creatinine of 2.7. Serology is noted. Influenza is negative. Microbiology reveals the blood cultures are negative. ASSESSMENT AND PLAN: A 57-year-old with chronic obstructive lung disease, breast cancer, asthma, anxiety, chronic back pain, multiple recurrent urinary tract infections presenting with respiratory failure, tachycardia, leukocytosis, severe sepsis, hypercapnic respiratory failure, intubated on a ventilator, right-sided healthcare-associated pneumonia on doxycycline and meropenem day #2. Today, the patient's blood cultures are reported to be negative and white count is normalized. The patient is extubated and procalcitonin is negative, probably all consistent with acute congestive heart failure. Yesterday's chest x-ray is reviewed. Today's chest x-ray is pending. We will treat with a short course of antibiotics, today is day #2 of doxycycline and meropenem. The patient is also on Solu-Medrol. We will follow with you. Parsanth Malcolm MD
[2018-04-01] MEDS: MethylPREDNISolone 40 mg Vial IVP SCH ×2 (12:40→22:00)
--- NOTE | 2018-04-01 12:43 | CP.PCM.PN ---
Subjective - Date & Time of Evaluation Date of Evaluation: 04/01/18 Time of Evaluation: 12:41 - Subjective Subjective: Nephrology Consultation Note: Assessment: critical acute on chronc respi acidosis with respi failure with renal compensation rt large pleural effusion with chest wall mass ? 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 Hypertension control with meds as ordered. Maintain hemodynamics stable. Avoid hypotension. Patient not on ACEI/ARB due to low BP and hyperkalemia. d/c midodrine Monitor Input/Output, daily weights and renal function with basic metabolic panel low K diet low Phos diet, added phos binders consider heme/onc eval for malignancy. will defer use of [place] in view of her recent breast malignancy with concerns for mets repeat renal sono in 6 months for cyst follow up started iron, MVI and weekly Vit D can d/c IVF Dose meds/antibiotics for reduced GFR. Avoid fleets enema/magnesium based laxatives. Avoid nephrotoxins/NSAIDs/ iodinated contrast (unless needed emergently) Glycemic control. pt need to stop smoking Further work up/management as per primary team Thanks for allowing me to participate in care of your patient. Will follow patient with you. Please call if any Qs. had d/w team Dr Marco Antonio Chatman Office: [phone] Chief Complaint; SOB Reason for consult: CKD 3 HPI: Pt is a 57 F with hx of diabetes Mellitus ( years), hypertension (years) COPD/asthma, active smoker, breast cancer s/p surgery 2 years ago but didn't complete treatment now with mets, anemia, CKD stage 3 with baseline cr 1.8 mg/dL admitted with acute respi distress hypercapnic respi failure and intubated, now seen for CKD management Denies OTC/herbal meds or NSAIDs No recent iodinated contrast exposure. Noted obvious episodes of low BP. ROS: pt is a poor historian and overall hx is limited from her. denies CP improved SOB. no urine complaints Physical Examination: General Appearance: Comfortable, in no acute respiratory distress, co-operative . Vitals reviewed and noted as below Head; Atraumatic, normocephalic ENT: no ulcers no thrush. Tongue is midline. Oropharynx: no rash or ulcers. she is hard of hearing EYES: Pupils are equal, round and reactive to light accommodation. Eye muscles and extraocular movement intact. Sclera is anicteric. Neck; supple no lymphadenopathy, no thyromegaly or bruit Lungs: Increased respiratory rate/effort. Breath sounds reduced at base with b/l wheezing Heart: Increased rate. s1s2 normal. No rub or gallop. Extremities: no edema. No varicose veins Neurological: Patient is alert, awake and oriented to person, place and time. No focal deficit. Strength bilateral appropriate and equal Skin: Warm and dry. Normal turgor. No rash. Palpitation: Normal elasticity for age Abdomen: Abdomen is soft. Bowel sounds +. There is no abdominal tenderness, no guarding/rigidity no organomegaly Psych: lack insight and normal affect/mood MSK: no joint tenderness or swelling. Digits and nails normal, no deformity : kidney or bladder not palpable Labs/imaging reviewed. Past medical history, past surgical history, family history, social history, allergy reviewed and noted as below Family hx: no hx of CKD. Rest non-contributory renal imaging: b/l cysts echo normal LVEF TSAt 26% ferritin 45 Serum FLC assay WNL ABDIRIZAK neg PTH 154 Vit D 17 Objective - Vital Signs/Intake and Output Vital Signs (last 24 hours): Temp Pulse Resp BP Pulse Ox 98.4 F 109 H 19 123/70 100 04/01/18 08:22 04/01/18 10:00 04/01/18 08:22 04/01/18 08:00 04/01/18 08:20 Intake and Output: 04/01/18 04/01/18 06:59 18:59 Intake Total 1900 Output Total 325 Balance 1575 - Medications Medications: Current Medications Acetylcysteine (Acetylcysteine 20%) 4 ml IH BIDRESP [facility] Last Admin: 04/01/18 07:20 Dose: 4 ml Albuterol/Ipratropium (Duoneb 3 Mg/0.5 Mg (3 Ml) Ud) 3 ml IH [id number] [facility] Last Admin: 04/01/18 07:19 Dose: 3 ml Albuterol/Ipratropium (Duoneb 3 Mg/0.5 Mg (3 Ml) Ud) 3 ml IH Q2H PRN PRN Reason: Shortness of Breath Last Admin: 04/01/18 05:36 Dose: 3 ml Aspirin (Ecotrin) 81 mg PO DAILY [facility] Last Admin: 04/01/18 09:45 Dose: 81 mg Atorvastatin Calcium (Lipitor) 10 mg PO HS [facility] Last Admin: 03/31/18 21:43 Dose: 10 mg Budesonide (Pulmicort Respules) 0.5 mg IH [id number] [facility] Last Admin: 04/01/18 07:20 Dose: 0.5 mg Calcium Acetate (Phoslo) 1,334 mg PO WM [facility] Enoxaparin Sodium (Lovenox) 30 mg SC DAILY [facility]; Protocol Last Admin: 04/01/18 09:44 Dose: 30 mg Ergocalciferol (Drisdol 50,000 Intl Units Cap) 1 cap PO Q7D [facility] Last Admin: 04/01/18 09:45 Dose: 1 cap Famotidine (Pepcid) 20 mg PO DAILY [facility] Last Admin: 04/01/18 09:44 Dose: 20 mg Ferrous Gluconate (Fergon) 324 mg PO TID [facility] Last Admin: 04/01/18 09:44 Dose: 324 mg Midazolam 100 mg/100ml in NS (Midazolam 100 Mg/100ml In Ns) 100 mg in 100 mls @ 1 mls/hr IV .Q24H PRN; Protocol PRN Reason: Sedation Last Admin: 03/31/18 05:35 Dose: 1 mg/hr, 1 mls/hr Sodium Chloride (Sodium Chloride 0.9%) 1,000 mls @ 100 mls/hr IV .Q10H [facility] Last Admin: 04/01/18 07:45 Dose: 100 mls/hr Meropenem/Sodium Chloride (Merrem Iv 500 Mg/Ns 50 Ml) 500 mg in 50 mls @ 100 mls/hr IVPB Q12 [facility]; Protocol Stop: 04/09/18 16:40 Last Admin: 04/01/18 09:44 Dose: 100 mls/hr Doxycycline Hyclate 100 mg/ (Sodium Chloride) 100 mls @ 100 mls/hr IVPB Q12 [facility]; Protocol Stop: 04/09/18 22:01 Last Admin: 04/01/18 09:43 Dose: 100 mls/hr Lorazepam (Ativan) 0.5 mg PO AMHS [facility]; Protocol Magnesium Oxide (Mag-Ox) 400 mg PO BID [facility] Last Admin: 04/01/18 09:45 Dose: 400 mg Methylprednisolone (Solu-Medrol) 20 mg IVP Q12H [facility] Montelukast Sodium (Singulair) 10 mg PO HS [facility] Last Admin: 03/31/18 21:43 Dose: 10 mg Nicotine (Nicoderm Cq) 1 patch TD DAILY [facility] Last Admin: 04/01/18 09:46 Dose: 1 patch Oxycodone/Acetaminophen (Percocet 5/325 Mg Tab) 1 tab PO Q6H PRN PRN Reason: Pain, moderate (4-7) Stop: 04/03/18 15:09 Last Admin: 04/01/18 11:57 Dose: 1 tab Pantoprazole Sodium (Protonix Ec Tab) 40 mg PO 0600 [facility] Last Admin: 04/01/18 05:09 Dose: 40 mg Roflumilast (Daliresp) 250 mcg PO DAILY [facility] Last Admin: 04/01/18 09:45 Dose: 250 mcg Vitamin B Complex/Vit C/Folic Acid (Nephro-Enrrique) 1 tab PO 0800 [facility] - Labs Labs: 04/01/18 05:30 04/01/18 05:30
[2018-04-01 14:33] LABS: ALB/GLOB RATIO 1.2 (1.1-1.8); ALBUMIN 3.5 g/dL (3.0-4.8); CALCIUM 6.8 mg/dL (8.4-10.5)
--- NOTE | 2018-04-01 14:44 | CON ---
DATE: 04/01/2018 HISTORY OF PRESENT ILLNESS: The patient is 57-year-old female with a history of anxiety, no outpatient psychiatric management or inpatient psychiatric treatment, no history of SA with a history of recurrent medical admissions for Respiratory distress. Again, the patient came into the ER, was found to be in acute respiratory distress and needed to be intubated. Psychiatry again was consulted to rule out intentional overdose. I consulted with patient on 02/08/2018, again on 03/11/[address] Yoder consulted with her on 03/12/2018, and during all of the consultations, the patient denied having any suicidal thoughts and denied that her presentation was secondary to an intentional overdose. I met with her bedside today and although there she has some difficulty expressing herself and she is disoriented to date, year, specific circumstances, she is quite clear that she is not suicidal and quite adamant that her presentation was not secondary to an intentional overdose to kill herself.. The patient is again eulalio irritated to have psychiatry involved in her care. She indicates that her medical team "can go fuck themselves and she asked this provider to let them know that they can go fuck themselves". She is not saying this because of disorganization, it appears to be her baseline character associated with her culture. Of note, during 01/2018 consultation this provider did recommend that the patient should not be given Xanax any further. I also recommended that the patient should be provided a psychiatric outpatient referral so that she could be treated for her symptoms by an educated psychiatric professional. It appears that my recommendations were not completely heeded as review of [facility] aware that medicine today revealed the patient received Xanax 0.5 mg tablet, 30 tablets on 03/19/2018 and Xanax 40 tablets on 02/20/2018, and Xanax again 28 tablets 0.5 mg on 02/13/2018. These were all prescriptions given by Dr. Sloan Sosa after this provider first consulted the patient on 02/08/2018; however; Dr. Sosa did followup on one of my recommendations which was to provide patient her medications in shorter increments in terms of 10 days or 7 days instead of 30-day refills as she had previously received. Unfortunately, the patient was also receiving oxycodone during these times as well. PSYCHIATRIC HISTORY: The patient denies any form of psychiatric history including suicide attempts, inpatient or outpatient followups. MEDICATIONS: She has been prescribed Xanax 0.5 mg for anxiety by Dr. Sosa, last prescription was provided to her on 03/19/2018, 30 tablets. The patient presented on 03/31/2018 to [facility] ER with respiratory distress, unclear whether it is due to the Xanax, which was prescribed in only 10-day intervals and it had been over for 10 days since she picked up her last refill on 03/19/18. SOCIAL HISTORY: The patient reports she is , she lives with her son. She has both son and daughter and they are adults. Daughter moved out couple of months ago. IMPRESSION: Anxiety disorder not otherwise specified, mood disorder not otherwise specified, rule out personality disorder, mood disorder might be secondary to the adjustment issues regarding recent hospitalizations. The patient is currently delirious, she cannot participate fully in an interview due to inconsistent focus. RECOMMENDATIONS: I will continue with current treatment. Psychiatry will not restart Xanax at this time and I strongly recommend that the patient should not be given this medication any further if there is any suspicion that overdose of this medication whether intentional or unintentional is causing these presentations. Patient has adamantly denied that these presentations were secondary to overdose on Xanax. Review of [facility] does appear to confirm this as it indicated that her last prescription was given to her on 03/19/2018 and patient should have finished her 10-day prescription of Xanax by the time of her presentation to our ER. (unless she was hoarding it or obtaining it illicitly). Regardless this provider doesn't have a crystal ball to f/u on these possibilities and in all likelihood patient's acute respiratory distress is NOT secondary to Xanax overdose. The patient also received Percocet prescription by Dr. Sosa on 03/19/2018. It is unclear that if her presentation was secondary to overdose of this medication, this was also a 10-day supply and the patient should have been finished it by the time of her presentation. Psychiatry will followup with the patient in order to get a coherent interview out of her; however; it is becoming increasingly clear that these consultations due to ?possible? overdose are unlikely. Next follow up will be with Dr. Schulte on Monday04/02/2018. Please note that if medical team really did feel that the patient's presentation was due to an overdose and her UDS was positive for benzos, they should be treating her for withdrawal while in the ICU with benzos supplement. It does appear that she is taking 0.5 mg p.o. 3 times daily p.r.n. of Xanax, which, as noted above, I will discontinue in favor of longer-acting Ativan which will be only given twice daily a.m. and at bedtime. Pamela Schulte MD MTDJuan
[2018-04-01] MEDS ORDERED: Lactated Ringer's 1,000 ML IV SCH (14:45)
[2018-04-01] MEDS: Insulin Reg-MEDIUM-Coverage SC SCH (22:00)
[2018-04-02] MEDS: Albuterol-Ipratrop 3 mg / 0.5 (3 ml) UD IH SCH ×4 (01:56→19:44)
[2018-04-02 02:27] LABS: URINE BILIRUBIN NEGATIVE (NEGATIVE); URINE BLOOD SMALL (NEGATIVE); URINE GLUCOSE (UA) 250 mg/dL (NEGATIVE); URINE LEUKOCYTE ESTERASE SMALL Leu/uL (NEGATIVE); URINE PROTEIN 100 mg/dL (<30 mg/dL); URINE UROBILINOGEN 0.2 E.U./dL (<1 E.U./dL)
[2018-04-02 02:36] LABS: URINE APPEARANCE CLOUDY (CLEAR); URINE COLOR YELLOW (YELLOW)
[2018-04-02 02:51] LABS: URINE BACTERIA SMALL /hpf
[2018-04-02] MEDS: Albuterol-Ipratrop 3 mg / 0.5 (3 ml) UD IH PRN ×3 (04:29→22:00)
[2018-04-02] MEDS: Oxycodone/Acetaminophen 5/325 mg Tab PO PRN (05:04)
[2018-04-02] MEDS: Pantoprazole 40 mg EC Tab PO SCH (06:21)
[2018-04-02 06:36] LABS: GRAN # 9.02 (1.4-6.5); GRAN % 94.5 % (50.0-68.0); HEMOGLOBIN 8.2 g/dL (12.0-16.0); LYMPH # 0.3 (1.2-3.4); LYMPH % 2.8 % (22.0-35.0); MEAN CELL VOLUME 98.3 fl (80.0-105.0); MEAN CORPUSCULAR HEMOGLOBIN 27.6 pg (25.0-35.0); MEAN CORPUSCULAR HGB CONC 28.1 g/dl (31.0-37.0); MEAN PLATELET VOLUME 10.7 fl (7.0-11.0); MONO # 0.3 (0.1-0.6); MONO % 2.7 % (1.0-6.0); PLATELET COUNT 210 10^3/uL (120.0-450.0); RBC 2.97 10^6/uL (3.5-6.1); RED CELL DISTRIBUTION WIDTH 19.6 % (11.5-14.5); WHITE BLOOD COUNT 9.6 10^3/uL (4.5-11.0)
[2018-04-02] MEDS: Acetylcysteine 20% Inhal Soln (4ml) IH SCH ×2 (07:28→19:44)
[2018-04-02] MEDS: Budesonide 0.5 mg/2 ml Inhal Susp UD IH SCH ×2 (07:28→19:44)
[2018-04-02 07:42] LABS: ALB/GLOB RATIO 1.3 (1.1-1.8); ALBUMIN 3.6 g/dL (3.0-4.8); CALCIUM 6.6 mg/dL (8.4-10.5)
[2018-04-02] MEDS ORDERED: Sod Polystyrene Sulf 15 gm/60 ml Susp PO ONE (07:46)
[2018-04-02] MEDS ORDERED: Dextrose 50% SYRINGE Inj (50 ml) IVP ONE (07:46)
[2018-04-02] MEDS ORDERED: Insulin Regular 1 UNITS/0.01 ML ML SC ONE (07:46)
[2018-04-02] MEDS ORDERED: Albuterol 0.5% Inhal Sol (2.5 mg/0.5 ml) UD IH STA (07:46)
[2018-04-02] MEDS: Insulin Reg-MEDIUM-Coverage SC SCH ×4 (07:51→21:16)
[2018-04-02] MEDS: Multivitamin Vitamin B Complex (Nephro-Vite) Tab PO SCH (07:54)
[2018-04-02] MEDS ORDERED: Insulin Regular 1 UNITS/0.01 ML ML IV ONE (08:01)
[2018-04-02] MEDS: Magnesium Oxide 400 mg Tab UD PO SCH ×2 (09:18→17:43)
[2018-04-02] MEDS: Enoxaparin 30 mg Syringe SC SCH (09:20)
[2018-04-02] MEDS: MEROPENEM 500 MG in NS 500 MG/50 ML BAG IVPB SCH ×2 (09:20→21:09)
[2018-04-02] MEDS: MethylPREDNISolone 40 mg Vial IVP SCH ×2 (10:28→23:00)
--- NOTE | 2018-04-02 11:31 | CON ---
DATE: 04/02/2018 HISTORY OF PRESENT ILLNESS: This is 57-year-old female with a history of anxiety, but no formal outpatient psychiatric management or inpatient psychiatric treatment, with recurrent medical admissions for respiratory distress. Psychiatry has been consulted at least 3 occasions to evaluate for possible intentional overdose leading to her respiratory distress. Patient has consistently denied having any suicidal thoughts. I consulted with her yesterday as well as today. The patient consistently denies having any suicidal thoughts and is not aware of the circumstances that led to her presentation with respiratory distress and subsequent intubation. The patient continues to have some difficulty expressing herself; however, she is much more coherent than yesterday. She is aware that she is in the hospital and she has been fairly cooperative with staff members. She is initially superficially cooperative with me indicating she has not been depressed, she suffers from anxiety, denies that suicidal attempts led to her presentation. Focus does appear to be inconsistent; however, but she has been consistent with the fact that none of her presentations for respiratory distress were secondary to intentional overdose. However, provider cannot rule out that they have been unintentional and as a result, I did and do recommend that the patient should be seeing an educated psychiatric professional to address her anxiety rather than giving her Xanax; Patient has been resistant to follow up with an outpatient Psychiatry and indicated that she "does not need Psychiatry." on multiple occasions. In the meantime, the patient is resistant to have a Psychiatry involved in her care at this time and does not appear to be in acute danger to herself or others, but does appear to be confused at times which is consistent with delirium MEDICATIONS: Include Ativan 0.5 mg a.m. and at bedtime. This provider discontinued Xanax. IMPRESSION: Anxiety disorder, not otherwise specified, delirium, rule out adjustment disorder with anxiety~~the patient had multiple medical admissions due to respiratory distress at this time. It is very important to minimize any medications that can increase difficulty with breathing. RECOMMENDATIONS: patient should be weaned off of Ativan. I lowered her dose to 0.5 mg HS. , the patient should not be provided with any more benzos prescription and if she has anxiety, she should followup with the psychiatric professional in this regard. Risk is too high because of her multiple presentations to the ICU for respiratory distress. Recommend minimizing opioids for the same exact reason. The patient also should get psychiatric referrals when she is medically stabilized and Psychiatry will sign off at this time. Pamela Schulte MD MTDJuan
--- NOTE | 2018-04-02 12:34 | CP.PCM.PN ---
Subjective - Date & Time of Evaluation Date of Evaluation: 04/02/18 Time of Evaluation: 10:00 - Subjective Subjective: PGY-2 heme/onc note for Dr Ruben Gleason No acute events noted overnight. Patient this morning with anxiety and tangential thought process - she was unable to answer questions - repeatedly kept veering off track. Objective - Vital Signs/Intake and Output Vital Signs (last 24 hours): Temp Pulse Resp BP Pulse Ox 98.2 F 115 H 18 137/67 100 04/02/18 08:00 04/02/18 10:00 04/02/18 08:00 04/02/18 06:00 04/02/18 08:00 Intake and Output: 04/02/18 04/02/18 06:59 18:59 Intake Total 1900 Output Total 250 Balance 1650 - Medications Medications: Current Medications Acetylcysteine (Acetylcysteine 20%) 4 ml IH BIDRESP [facility] Last Admin: 04/02/18 07:28 Dose: 4 ml Albuterol/Ipratropium (Duoneb 3 Mg/0.5 Mg (3 Ml) Ud) 3 ml IH [id number] [facility] Last Admin: 04/02/18 07:28 Dose: 3 ml Albuterol/Ipratropium (Duoneb 3 Mg/0.5 Mg (3 Ml) Ud) 3 ml IH Q2H PRN PRN Reason: Shortness of Breath Last Admin: 04/02/18 04:29 Dose: 3 ml Aspirin (Ecotrin) 81 mg PO DAILY [facility] Last Admin: 04/02/18 09:19 Dose: 81 mg Atorvastatin Calcium (Lipitor) 10 mg PO HS [facility] Last Admin: 04/01/18 21:02 Dose: 10 mg Budesonide (Pulmicort Respules) 0.5 mg IH [id number] [facility] Last Admin: 04/02/18 07:28 Dose: 0.5 mg Calcium Acetate (Phoslo) 2,001 mg PO WM [facility] Enoxaparin Sodium (Lovenox) 30 mg SC DAILY [facility]; Protocol Last Admin: 04/02/18 09:20 Dose: 30 mg Ergocalciferol (Drisdol 50,000 Intl Units Cap) 1 cap PO Q7D [facility] Last Admin: 04/01/18 09:45 Dose: 1 cap Famotidine (Pepcid) 20 mg PO DAILY [facility] Last Admin: 04/02/18 09:18 Dose: 20 mg Ferrous Gluconate (Fergon) 324 mg PO TID [facility] Last Admin: 04/02/18 09:18 Dose: 324 mg Meropenem/Sodium Chloride (Merrem Iv 500 Mg/Ns 50 Ml) 500 mg in 50 mls @ 100 mls/hr IVPB Q12 [facility]; Protocol Stop: 04/09/18 16:40 Last Admin: 04/02/18 09:20 Dose: 100 mls/hr Doxycycline Hyclate 100 mg/ (Sodium Chloride) 100 mls @ 100 mls/hr IVPB Q12 [facility]; Protocol Stop: 04/09/18 22:01 Last Admin: 04/02/18 09:20 Dose: 100 mls/hr Calcium Gluconate 2,000 mg/ (Sodium Chloride) 120 mls @ 110 mls/hr IVPB ONCE ONE Stop: 04/02/18 12:39 Insulin Human Regular (Humulin R Med) 0 units SC ACHS [facility]; Protocol Last Admin: 04/02/18 07:51 Dose: 5 unit Lorazepam (Ativan) 0.5 mg PO HS [facility]; Protocol Magnesium Oxide (Mag-Ox) 400 mg PO BID [facility] Last Admin: 04/02/18 09:18 Dose: 400 mg Methylprednisolone (Solu-Medrol) 20 mg IVP Q12H [facility] Last Admin: 04/02/18 10:28 Dose: 20 mg Metoprolol Tartrate (Lopressor) 25 mg PO BID [facility] Montelukast Sodium (Singulair) 10 mg PO HS [facility] Last Admin: 04/01/18 21:02 Dose: 10 mg Nicotine (Nicoderm Cq) 1 patch TD DAILY [facility] Last Admin: 04/02/18 09:22 Dose: 1 patch Oxycodone/Acetaminophen (Percocet 5/325 Mg Tab) 1 tab PO Q6H PRN PRN Reason: Pain, moderate (4-7) Stop: 04/03/18 15:09 Last Admin: 04/02/18 05:04 Dose: 1 tab Pantoprazole Sodium (Protonix Ec Tab) 40 mg PO 0600 [facility] Last Admin: 04/02/18 06:21 Dose: 40 mg Roflumilast (Daliresp) 250 mcg PO DAILY [facility] Last Admin: 04/02/18 09:51 Dose: 250 mcg Vitamin B Complex/Vit C/Folic Acid (Nephro-Enrrique) 1 tab PO 0800 [facility] Last Admin: 04/02/18 07:54 Dose: 1 tab - Labs Labs: 04/02/18 05:40 04/02/18 05:40 Assessment and Plan - Assessment and Plan (Free Text) Plan: Mrs Granado is a 57 year old female with a PMhx of COPD, asthma, DM2, breast cancer and xanax abuse who presented to the ER in hypercapnic respiratory failure and was subsequently intubated - now extubated.
--- NOTE | 2018-04-02 12:47 | CP.PCM.CON ---
History of Present Illness - History of Present Illness History of Present Illness: PGY-2 heme/onc consult note for Dr Ruben Granado Mrs Granado is a 57 year old female with a PMHx history of breast cancer, severe COPD, anxiety, pneumonia, pleural effusions, CKD, xanax abuse, hx of non- compliance, hx of xanax/oxycodone overose, who presented to the ED in respiratory distress while on non-rebreather. Patient was then intubated while in ED due to lack of airway protection. She was recently admitted 1 month ago f or right-sided pleural effusion and was intubated at that time as well. Hematology/oncology has been consulted for anemia. No acute events noted overnight. Patient this morning with anxiety and tangential thought process - she was unable to answer questions - repeatedly kept veering off track. Some of the history was collected from chart review. PMHx: Severe COPD, active smoker, Hx respiratory failure requiring intubation, Hx L breast cancer (Dx 2015) invasive ductal carcinoma, ER+/HER2+. Got 1 cycle of sandee-adjuvant chemo. After that, refuse chemo/surgery, DM (A1C 9.2, Jan 2018), HTN, CKD 3 with Anemia, requiring erythropoietin, Hx Enteroccus UTI, Hx Carmen esophagitis, Recent hosp (Jan 2018) Xanax/oxycodone OD, Non-compliance, Anxiety on xanax PSHx: Mastectomy, Bladder surgery, Spine surgery SocialHx: Lives at home with son, Hx drug overdose, active smoker Allergies: Levaquin, Nystatin FamHx: Denies Review of Systems - Review of Systems Systems not reviewed;Unavailable: Uncooperative Past Patient History - Infectious Disease Hx of Infectious Diseases: None - Tetanus Immunizations Tetanus Immunization: Unknown - Past Medical History & Family History Past Medical History?: Yes - Past Social History Smoking Status: Former Smoker - CARDIAC Hx Cardiac Disorders: Yes Hx Hypertension: Yes - PULMONARY Hx Chronic Obstructive Pulmonary Disease (COPD): Yes - NEUROLOGICAL Hx Neurological Disorder: No - HEENT Hx HEENT Problems: No - RENAL Hx Chronic Kidney Disease: No - ENDOCRINE/METABOLIC Hx Diabetes Mellitus Type 2: Yes - HEMATOLOGICAL/ONCOLOGICAL Hx Blood Disorders: Yes (blood transfusion) Hx Cancer: Yes (left breast dx 06/2015) Hx Chemotherapy: Yes (2016 as per son) - INTEGUMENTARY Hx Dermatological Problems: No - MUSCULOSKELETAL/RHEUMATOLOGICAL Hx Falls: Yes - GASTROINTESTINAL Hx Gastrointestinal Disorders: No - GENITOURINARY/GYNECOLOGICAL Hx Genitourinary Disorders: No - PSYCHIATRIC Hx Psychophysiologic Disorder: Yes Hx Anxiety: Yes Hx Depression: Yes Hx Substance Use: No - SURGICAL HISTORY Hx Surgeries: Yes - ANESTHESIA Hx Anesthesia: Yes Hx Anesthesia Reactions: No Hx Malignant Hyperthermia: No Meds Allergies/Adverse Reactions: Allergies Allergy/AdvReac Type Severity Reaction Status Date / Time levofloxacin [From Levaquin] Allergy SHORTNESS Verified 03/31/18 02:26 OF BREATH;PARANOID nystatin Allergy SWELLING Verified 03/31/18 02:26 - Medications Medications: Current Medications Acetylcysteine (Acetylcysteine 20%) 4 ml IH BIDRESP [facility] Last Admin: 04/02/18 07:28 Dose: 4 ml Albuterol/Ipratropium (Duoneb 3 Mg/0.5 Mg (3 Ml) Ud) 3 ml IH [id number] [facility] Last Admin: 04/02/18 07:28 Dose: 3 ml Albuterol/Ipratropium (Duoneb 3 Mg/0.5 Mg (3 Ml) Ud) 3 ml IH Q2H PRN PRN Reason: Shortness of Breath Last Admin: 04/02/18 04:29 Dose: 3 ml Aspirin (Ecotrin) 81 mg PO DAILY [facility] Last Admin: 04/02/18 09:19 Dose: 81 mg Atorvastatin Calcium (Lipitor) 10 mg PO HS [facility] Last Admin: 04/01/18 21:02 Dose: 10 mg Budesonide (Pulmicort Respules) 0.5 mg IH [id number] [facility] Last Admin: 04/02/18 07:28 Dose: 0.5 mg Calcium Acetate (Phoslo) 2,001 mg PO [facility] Enoxaparin Sodium (Lovenox) 30 mg SC DAILY [facility]; Protocol Last Admin: 04/02/18 09:20 Dose: 30 mg Ergocalciferol (Drisdol 50,000 Intl Units Cap) 1 cap PO Q7D [facility] Last Admin: 04/01/18 09:45 Dose: 1 cap Famotidine (Pepcid) 20 mg PO DAILY [facility] Last Admin: 04/02/18 09:18 Dose: 20 mg Ferrous Gluconate (Fergon) 324 mg PO TID [facility] Last Admin: 04/02/18 09:18 Dose: 324 mg Meropenem/Sodium Chloride (Merrem Iv 500 Mg/Ns 50 Ml) 500 mg in 50 mls @ 100 mls/hr IVPB Q12 [facility]; Protocol Stop: 04/09/18 16:40 Last Admin: 04/02/18 09:20 Dose: 100 mls/hr Doxycycline Hyclate 100 mg/ (Sodium Chloride) 100 mls @ 100 mls/hr IVPB Q12 [facility]; Protocol Stop: 04/09/18 22:01 Last Admin: 04/02/18 09:20 Dose: 100 mls/hr Calcium Gluconate 2,000 mg/ (Sodium Chloride) 120 mls @ 110 mls/hr IVPB ONCE ONE Stop: 04/02/18 12:39 Insulin Human Regular (Humulin R Med) 0 units SC ACHS [facility]; Protocol Last Admin: 04/02/18 07:51 Dose: 5 unit Lorazepam (Ativan) 0.5 mg PO HS [facility]; Protocol Magnesium Oxide (Mag-Ox) 400 mg PO BID [facility] Last Admin: 04/02/18 09:18 Dose: 400 mg Methylprednisolone (Solu-Medrol) 20 mg IVP Q12H [facility] Last Admin: 04/02/18 10:28 Dose: 20 mg Metoprolol Tartrate (Lopressor) 25 mg PO BID [facility] Montelukast Sodium (Singulair) 10 mg PO HS [facility] Last Admin: 04/01/18 21:02 Dose: 10 mg Nicotine (Nicoderm Cq) 1 patch TD DAILY [facility] Last Admin: 04/02/18 09:22 Dose: 1 patch Oxycodone/Acetaminophen (Percocet 5/325 Mg Tab) 1 tab PO Q6H PRN PRN Reason: Pain, moderate (4-7) Stop: 04/03/18 15:09 Last Admin: 04/02/18 05:04 Dose: 1 tab Pantoprazole Sodium (Protonix Ec Tab) 40 mg PO 0600 [facility] Last Admin: 04/02/18 06:21 Dose: 40 mg Roflumilast (Daliresp) 250 mcg PO DAILY [facility] Last Admin: 04/02/18 09:51 Dose: 250 mcg Vitamin B Complex/Vit C/Folic Acid (Nephro-Enrrique) 1 tab PO 0800 [facility] Last Admin: 04/02/18 07:54 Dose: 1 tab Physical Exam - Constitutional Appears: No Acute Distress, Older Than Stated Age - Head Exam Head Exam: ATRAUMATIC, NORMAL INSPECTION - Eye Exam Eye Exam: EOMI, Normal appearance, PERRL. absent: Scleral icterus - ENT Exam ENT Exam: Mucous Membranes Moist - Respiratory Exam Respiratory Exam: Decreased Breath Sounds, Rales Additional comments: tachypneic, rales R>L - Cardiovascular Exam Cardiovascular Exam: Tachycardia, REGULAR RHYTHM, +S1, +S2. absent: JVD - GI/Abdominal Exam GI & Abdominal Exam: Normal Bowel Sounds, Soft. absent: Tenderness - Extremities Exam Extremities exam: Positive for: normal capillary refill, normal inspection, pedal pulses present - Neurological Exam Neurological exam: Alert, Oriented x3 - Psychiatric Exam Psychiatric exam: Anxious - Skin Skin Exam: Normal Color, Warm Results - Vital Signs Recent Vital Signs: Last Vital Signs Temp 98.2 F 04/02/18 08:00 Pulse 115 H 04/02/18 10:00 Resp 18 04/02/18 08:00 BP 137/67 04/02/18 06:00 Pulse Ox 100 04/02/18 08:00 - Labs Result Diagrams: 04/02/18 05:40 04/02/18 05:40 Labs: Laboratory Results - last 24 hr 04/01/18 04/01/18 04/01/18 05:30 11:19 14:10 WBC RBC Hgb Hct MCV MCH MCHC RDW Plt Count MPV Gran % Lymph % (Auto) [place] % (Auto) Eos % (Auto) Baso % (Auto) Gran # Lymph # (Auto) [place] # (Auto) Eos # (Auto) Baso # (Auto) Sodium 139 Potassium 5.6 H* Chloride 107 Carbon Dioxide 21 Anion Gap 16 BUN 50 H Creatinine 3.0 H Est GFR ( Amer) 19 Est GFR (Non-Af Amer) 16 POC Glucose (mg/dL) 280 H Random Glucose 293 H Calcium 6.8 L* Phosphorus Magnesium Total Bilirubin 0.2 AST 30 ALT 83 H Alkaline Phosphatase 73 Total Protein 6.4 Albumin 3.5 Globulin 2.9 Albumin/Globulin Ratio 1.2 Procalcitonin 67.93 H Urine Color Urine Appearance Urine pH Ur Specific [place] Urine Protein Urine Glucose (UA) Urine Ketones Urine Blood Urine Nitrate Urine Bilirubin Urine Urobilinogen Ur Leukocyte Esterase Urine RBC Urine WBC Ur Epithelial Cells Urine Bacteria Urine Other 04/01/18 04/02/1804/02/19 21:16 01:50 05:40 WBC 9.6 D RBC 2.97 L Hgb 8.2 L Hct 29.2 L MCV 98.3 MCH 27.6 MCHC 28.1 L RDW 19.6 H Plt Count 210 MPV 10.7 Gran % 94.5 H Lymph % (Auto) 2.8 L [place] % (Auto) 2.7 Eos % (Auto) 0.0 L Baso % (Auto) 0.0 Gran # 9.02 H Lymph # (Auto) 0.3 L [place] # (Auto) 0.3 Eos # (Auto) 0.0 Baso # (Auto) 0.00 Sodium Potassium Chloride Carbon Dioxide Anion Gap BUN Creatinine Est GFR ( Amer) Est GFR (Non-Af Amer) POC Glucose (mg/dL) 396 H Random Glucose Calcium Phosphorus Magnesium Total Bilirubin AST ALT Alkaline Phosphatase Total Protein Albumin Globulin Albumin/Globulin Ratio Procalcitonin Urine Color Yellow Urine Appearance Cloudy Urine pH 6.0 Ur Specific [place] >= 1.030 Urine Protein 100 H Urine Glucose (UA) 250 H Urine Ketones Negative Urine Blood Small H Urine Nitrate Negative Urine Bilirubin Negative Urine Urobilinogen 0.2 Ur Leukocyte Esterase Small H Urine RBC 1 - 3 H Urine WBC 5 - 10 H Ur Epithelial Cells 3 - 4 Urine Bacteria Small Urine Other Uyeast 04/02/18 04/02/18 04/02/18 05:40 05:40 07:25 WBC RBC Hgb Hct MCV MCH MCHC RDW Plt Count MPV Gran % Lymph % (Auto) [place] % (Auto) Eos % (Auto) Baso % (Auto) Gran # Lymph # (Auto) [place] # (Auto) Eos # (Auto) Baso # (Auto) Sodium 141 Potassium 5.6 H* Chloride 106 Carbon Dioxide 22 Anion Gap 18 BUN 58 H Creatinine 3.6 H Est GFR ( Amer) 16 Est GFR (Non-Af Amer) 13 POC Glucose (mg/dL) 298 H Random Glucose 308 H* Calcium 6.6 L* Phosphorus 9.5 H Magnesium 1.5 L Total Bilirubin 0.2 AST 29 ALT 68 H Alkaline Phosphatase 70 Total Protein 6.5 Albumin 3.6 Globulin 2.8 Albumin/Globulin Ratio 1.3 Procalcitonin Urine Color Urine Appearance Urine pH Ur Specific [place] Urine Protein Urine Glucose (UA) Urine Ketones Urine Blood Urine Nitrate Urine Bilirubin Urine Urobilinogen Ur Leukocyte Esterase Urine RBC Urine WBC Ur Epithelial Cells Urine Bacteria Urine Other Assessment & Plan - Assessment and Plan (Free Text) Plan: Mrs Granado is a 57 year old female with a PMHx history of breast cancer, severe COPD, anxiety, pneumonia, pleural effusions, CKD, xanax abuse, hx of non- compliance, hx of xanax/oxycodone overose, who presented to the ED in respiratory distress while on non-rebreather. Patient was then intubated while in ED due to lack of airway protection. Hematology/oncology has been consulted for anemia. Anemia -Hgb on admission: 9.7 * chronically anemic since 02/2017 -order for iron studies, retic count, peripheral smear, B12, folate -has received erythropoetin in the past for anemia due to renal disease * CKD 3 and now with DAHLIA Hx L breast cancer (Dx 2016) invasive ductal carcinoma -ER+/HER2+ -Got 1 cycle of sandee-adjuvant chemo. After that, refuse chemo/surgery. -CT chest w/o contrast showed lymphadenopathy suspicious for tumor * etiology could be malignancy, infectious, inflammatory * repeat CT 1 month after current episode has resolved Case discussed with Dr Ruben Gleason
--- NOTE | 2018-04-02 13:19 | CON ---
DATE: 04/02/2018 REASON FOR THE CONSULTATION: Cardiac evaluation, rule out congestive heart failure, status post respiratory failure, COPD. HISTORY OF PRESENT ILLNESS: The patient is a 57-year-old female with past medical significant for COPD, asthma, anxiety disorder, chronic back pain, diabetes, insulin dependent, recurrent urinary tract infection, breast CA with metastatic disease, came in with shortness of breath, requiring intubation on Monday night 2 a.m. The patient intubated yesterday. The patient successfully extubated, now still wheezing, cardiac consult was called for cardiac evaluation for CHF. Denies any chest pain, denies shortness of breath, denies any palpitation. PAST MEDICAL HISTORY: Significant for COPD, asthma, breast CA with metastasis, anxiety disorder, chronic back pain, type 2 diabetes insulin required, recurrent urinary tract infection, anemia, chronic kidney disease, and pneumonia, and history of pleural effusion. SOCIAL HISTORY: Active tobacco abuse, denies any history of alcohol or any substance abuse. ALLERGIES: LEVAQUIN AND NYSTATIN. CURRENT MEDICATIONS: The patient at home was taking simvastatin, oxycodone, Xanax, aspirin, insulin, ferrous sulfate, Xanax, albuterol and Advair inhaler. PAST SURGICAL HISTORY: Significant for multiple urinary tract bladder biopsies, surgery for ovarian tumor, history of teratoma type; surgery of diverticular colonic disease, left breast biopsy; umbilical hernia repair. Previous cardiac workup as follows, the patient had echocardiography done on 07/28/2017 that revealed left ventricle ejection fraction of 65%, no aortic regurgitation, no aortic valvular stenosis, trace mitral regurgitation, trace tricuspid regurgitation, RV systolic pressure 20. No pericardial effusion. REVIEW OF SYSTEMS: As per HPI. PHYSICAL EXAMINATION: VITAL SIGNS: As follows, height of the patient is 5 feet 4 inches, weight of the patient 169 pounds, and body mass index 29 kg/m2. Temperature afebrile, heart rate 108 and blood pressure 137/67. HEENT: PERRLA. Extraocular muscles intact. NECK: Supple. No carotid bruit. No thyromegaly. CHEST: Clear to auscultation. HEART: S1 and S2 regular. ABDOMEN: Soft. EXTREMITIES: Clubbing and cyanosis negative. LABORATORY DATA: EKG shows sinus tachycardia, blood workup WBC 9.6, hemoglobin 8.8, hematocrit 29.2, and platelet count 210. Chemistry shows sodium 141, potassium 5.6, chloride of 106, carbon dioxide 22, anion gap of 18, BUN 36, creatinine 3.6, calcium 6.6, random glucose 308. IMPRESSION: A 57-year-old female with a past medical significant history of chronic obstructive pulmonary disease, active tobacco abuse, history of breast cancer, anxiety disorder, panic disorder, stage II to III chronic kidney disease, admitted with acute exacerbation of chronic obstructive pulmonary disease, respiratory failure, and went into acute kidney injury, admitting creatinine is 1.8 went into 3.6. On admission, the patient was intubated, later on successfully extubated and still the patient is wheezing. Cardiology consult was called for followup. The patient denies any chest pain, but still complained of shortness of breath and hard of hearing, still wheezing, history of chronic renal insufficiency, admitted with acute kidney injury. Last echo shows preserved left ventricle function dated 07/2017. EKG shows normal sinus tachycardia. Repeat echo was done on 03/09/2018 on admission that revealed normal left ventricle size, normal left ventricle function, normal mitral valve structure reported. Mild tricuspid regurgitation reported, ejection fraction calculated 63%, right ventricular systolic pressure of 34 that is dated 03/10/2018. Prior to that, the patient had an echo on 07/28/2017 that showed also preserved left ventricle function, ejection fraction 50% to 55%, trace mitral regurgitation, trace tricuspid regurgitation. Chest x-ray on admission, moderate large right pleural effusion and shift of mediastinum was noted and possibly underlying some pneumonia on the right side with atelectasis with a shift of mediastinum noted pulling on the right side. RECOMMENDATION: Continue aggressive treatments for COPD, careful about the dialysis because the patient went into acute renal failure. Avoid nephrotoxic medications. The patient may get benefit from thoracentesis. We will repeat chest x-ray today. The patient also has history of pancreatic recurrent urinary tract infection, backache and multiple medical problems and tobacco abuse. Today, chest-ray read as improved aeration. Admitting chest x-ray was almost whiteout on the right side with large pleural effusion and consolidation with underlying atelectasis. Left side showed some congestion. Careful about diuretic because the patient will go into complete renal failure. Avoid nephrotoxic medications. We will follow with you. Continue broad-spectrum antibiotics, may consider diagnostic thoracentesis. So far, no evidence of acute PR noted. We will follow with you. We will give 40 of Kayexalate now because of high potassium. We will follow with you. We will get the uric acid level also. I will follow closely. Continue DVT prophylaxis. We will put low dose of beta-brendon to prevent tachycardia as well. Thank you Dr. Sosa for providing us the opportunity in taking care of the patient, Yazmin Granado. Lisa Hernandez MD [facility]
--- NOTE | 2018-04-02 14:53 | CP.PCM.PN ---
Subjective - Date & Time of Evaluation Date of Evaluation: 04/02/18 Time of Evaluation: 14:50 - Subjective Subjective: Nephrology Consultation Note: Assessment: critical DAHLIA worsening ? ATN acute on chronc respi acidosis with respi failure with renal compensation rt large pleural effusion with chest wall mass ? malignant (hx of breast CA) Diabetic chronic Kidney Disease (E11.22) Hypertensive Chronic Kidney Disease (I12.9) Chronic Kidney Disease (N18.3) Stage 3 with 1200 mg proteinuria and 400 mg albuminuria (R80.9) likely due to DM/HTN Anemia (D64.9) hyperphosphatemia COPD/asthma, active smoker, breast cancer s/p surgery 2 years ago active smoker Plan No acute need for renal replacement therapy at this time but may need soon and will need close follow up. overall poor prognosis, recommend palliative care Hypertension control with meds as ordered. Maintain hemodynamics stable. Avoid hypotension. Patient not on ACEI/ARB due to low BP and hyperkalemia. started on lopressor by cardiology Monitor Input/Output, daily weights and renal function with basic metabolic panel low K diet low Phos diet, added phos binders will defer use of [place] in view of her recent breast malignancy with concerns for mets started iron, MVI and weekly Vit D probably will need to d/c IVF soon and try diuretics Dose meds/antibiotics for reduced GFR. Avoid fleets enema/magnesium based laxatives. Avoid nephrotoxins/NSAIDs/ iodinated contrast (unless needed emergently) Glycemic control. pt need to stop smoking Further work up/management as per primary team Thanks for allowing me to participate in care of your patient. Will follow patient with you. Please call if any Qs. had d/w team Dr Marco Antonio Chatman Office: [phone] Chief Complaint; SOB Reason for consult: CKD 3 HPI: Pt is a 57 F with hx of diabetes Mellitus ( years), hypertension (years) COPD/asthma, active smoker, breast cancer s/p surgery 2 years ago but didn't complete treatment now with mets, anemia, CKD stage 3 with baseline cr 1.8 mg/dL admitted with acute respi distress hypercapnic respi failure and intubated, now seen for CKD management Denies OTC/herbal meds or NSAIDs No recent iodinated contrast exposure. Noted obvious episodes of low BP. ROS: pt is a poor historian and overall hx is limited from her. denies CP has SOB. no urine complaints but low UOP daughter bedside but not interested in discussing anything about her mother condition Physical Examination: General Appearance: ill appearing Vitals reviewed and noted as below Head; Atraumatic, normocephalic ENT: no ulcers no thrush. Tongue is midline. Oropharynx: no rash or ulcers. she is hard of hearing EYES: Pupils are equal, round and reactive to light accommodation. Eye muscles and extraocular movement intact. Sclera is anicteric. Neck; supple no lymphadenopathy, no thyromegaly or bruit Lungs: Increased respiratory rate/effort. Breath sounds reduced at base with b/l wheezing Heart: Increased rate. s1s2 normal. No rub or gallop. Extremities: 2+ edema. No varicose veins Neurological: Patient is alert, awake and oriented to person, place and time. No focal deficit. Strength bilateral appropriate and equal Skin: Warm and dry. Normal turgor. No rash. Palpitation: Normal elasticity for age Abdomen: Abdomen is soft. Bowel sounds +. There is no abdominal tenderness, no guarding/rigidity no organomegaly Psych: lack insight and flat affect/mood MSK: no joint tenderness or swelling. Digits and nails normal, no deformity : kidney or bladder not palpable Labs/imaging reviewed. Past medical history, past surgical history, family history, social history, allergy reviewed and noted as below Family hx: no hx of CKD. Rest non-contributory renal imaging: b/l cysts echo normal LVEF TSAt 26% ferritin 45 Serum FLC assay WNL ABDIRIZAK neg PTH 154 Vit D 17 Objective - Vital Signs/Intake and Output Vital Signs (last 24 hours): Temp Pulse Resp BP Pulse Ox 98.2 F 109 H 18 153/68 H 100 04/02/18 08:00 04/02/18 12:30 04/02/18 08:00 04/02/18 12:30 04/02/18 08:00 Intake and Output: 04/02/18 04/02/18 06:59 18:59 Intake Total 1900 Output Total 250 Balance 1650 - Medications Medications: Current Medications Acetylcysteine (Acetylcysteine 20%) 4 ml IH BIDRESP [facility] Last Admin: 04/02/18 07:28 Dose: 4 ml Albuterol/Ipratropium (Duoneb 3 Mg/0.5 Mg (3 Ml) Ud) 3 ml IH [id number] [facility] Last Admin: 04/02/18 13:06 Dose: 3 ml Albuterol/Ipratropium (Duoneb 3 Mg/0.5 Mg (3 Ml) Ud) 3 ml IH Q2H PRN PRN Reason: Shortness of Breath Last Admin: 04/02/18 04:29 Dose: 3 ml Aspirin (Ecotrin) 81 mg PO DAILY [facility] Last Admin: 04/02/18 09:19 Dose: 81 mg Atorvastatin Calcium (Lipitor) 10 mg PO HS [facility] Last Admin: 04/01/18 21:02 Dose: 10 mg Budesonide (Pulmicort Respules) 0.5 mg IH [id number] [facility] Last Admin: 04/02/18 07:28 Dose: 0.5 mg Calcium Acetate (Phoslo) 2,001 mg PO WM [facility] Last Admin: 04/02/18 12:43 Dose: 2,001 mg Enoxaparin Sodium (Lovenox) 30 mg SC DAILY [facility]; Protocol Last Admin: 04/02/18 09:20 Dose: 30 mg Ergocalciferol (Drisdol 50,000 Intl Units Cap) 1 cap PO Q7D [facility] Last Admin: 04/01/18 09:45 Dose: 1 cap Famotidine (Pepcid) 20 mg PO DAILY [facility] Last Admin: 04/02/18 09:18 Dose: 20 mg Ferrous Gluconate (Fergon) 324 mg PO TID [facility] Last Admin: 04/02/18 09:18 Dose: 324 mg Meropenem/Sodium Chloride (Merrem Iv 500 Mg/Ns 50 Ml) 500 mg in 50 mls @ 100 mls/hr IVPB Q12 [facility]; Protocol Stop: 04/09/18 16:40 Last Admin: 04/02/18 09:20 Dose: 100 mls/hr Doxycycline Hyclate 100 mg/ (Sodium Chloride) 100 mls @ 100 mls/hr IVPB Q12 [facility]; Protocol Stop: 04/09/18 22:01 Last Admin: 04/02/18 09:20 Dose: 100 mls/hr Sodium Chloride (Sodium Chloride 0.9%) 500 mls @ 70 mls/hr IV .Q7H9M [facility] Insulin Human Regular (Humulin R Med) 0 units SC ACHS [facility]; Protocol Last Admin: 04/02/18 12:41 Dose: 1 unit Lorazepam (Ativan) 0.5 mg PO HS [facility]; Protocol Magnesium Oxide (Mag-Ox) 400 mg PO BID [facility] Last Admin: 04/02/18 09:18 Dose: 400 mg Methylprednisolone (Solu-Medrol) 20 mg IVP Q12H [facility] Last Admin: 04/02/18 10:28 Dose: 20 mg Metoprolol Tartrate (Lopressor) 25 mg PO BID [facility] Montelukast Sodium (Singulair) 10 mg PO HS [facility] Last Admin: 04/01/18 21:02 Dose: 10 mg Nicotine (Nicoderm Cq) 1 patch TD DAILY [facility] Last Admin: 04/02/18 09:22 Dose: 1 patch Oxycodone/Acetaminophen (Percocet 5/325 Mg Tab) 1 tab PO Q6H PRN PRN Reason: Pain, moderate (4-7) Stop: 04/03/18 15:09 Last Admin: 04/02/18 05:04 Dose: 1 tab Pantoprazole Sodium (Protonix Ec Tab) 40 mg PO 0600 [facility] Last Admin: 04/02/18 06:21 Dose: 40 mg Roflumilast (Daliresp) 250 mcg PO DAILY [facility] Last Admin: 04/02/18 09:51 Dose: 250 mcg Vitamin B Complex/Vit C/Folic Acid (Nephro-Enrrique) 1 tab PO 0800 [facility] Last Admin: 04/02/18 07:54 Dose: 1 tab - Labs Labs: 04/02/18 05:40 04/02/18 05:40
[2018-04-02] MEDS: Sodium Chloride 0.9% 500 ML IV SCH (15:11)
--- NOTE | 2018-04-02 15:27 | PN ---
DATE: 04/02/2018 PULMONARY PROGRESS NOTE REFERRING PHYSICIAN: Sloan Sosa MD SUBJECTIVE: The patient is sitting up at bedside. No acute distress. The patient continues to report she still has shortness of breath, cough, congestion. No headache, rhinitis, chest pain, abdominal pain, nausea, vomiting, diarrhea, leg pain or leg swelling reported. OBJECTIVE: GENERAL: No acute distress. VITAL SIGNS: Blood pressure 153/68, pulse 109, temperature 98.2 and oxygen saturation 100% on nasal cannula. HEENT: Moist mucous membranes. NECK: Supple. No JVD. LUNGS: Rhonchi bilaterally. Diminished breath sounds in the right. CARDIOVASCULAR: S1 and S2 audible and tachycardic. ABDOMEN: Soft and nontender. No distention. EXTREMITIES: No bilateral lower extremity edema. MEDICATIONS: Reviewed. Mucomyst 4 mL inhalation twice a day, DuoNeb 3 mL inhalation every 2 hours p.r.n., DuoNeb 3 mL inhalation every 6 hours, aspirin 81 mg daily, Lipitor 10 mg at bedtime, Pulmicort 0.5 mg every 12 hours, calcium acetate 2001 mg Monday and Monday, doxycycline 100 mg every 12 hours, Lovenox 30 mg subcutaneous daily, ergocalciferol 50,000 units every 7 days, Pepcid 20 mg daily, ferrous gluconate 324 mg 3 times a day, Humulin R sliding scale a.c. and at bedtime, Ativan 0.5 mg at bedtime, magnesium oxide 400 mg twice a day, meropenem 500 mg every 12 hours, Solu-Medrol 20 mg every 12 hours, metoprolol tartrate 25 mg twice a day, Singulair 10 mg at bedtime, nicotine patch transdermal daily, Percocet 5/325 mg one tab every 6 hours p.r.n., Protonix 40 mg daily, Daliresp 250 mcg daily and Nephro-Enrrique one tab daily. LABORATORY DATA: Reviewed. WBC 9.6, RBC 2.97, hemoglobin 8.2, hematocrit 29.2 and platelets 210. Sodium 141, potassium 5.6, chloride 106, carbon dioxide 22, anion gap 18, BUN 58, creatinine 3.6, GFR 13, POC glucose 298, random glucose 308, calcium 6.6, phosphorous 9.5, magnesium 1.5, total bilirubin 0.2, AST 29, ALT 60, alkaline phosphatase 70, total protein 6.5, albumin 3.6, globulin 2.8 and albumin-globulin ratio 1.3. Urine protein 100, urine glucose 250, urine blood small, urine leukocyte esterase small, urine RBC 1 to 3, urine WBC 5 to 10, urine legionella pneumophila antigen negative. Blood cultures preliminary no growth after 48 hours. DIAGNOSTIC DATA: Chest x-ray from yesterday showed improved aeration, primarily right upper lobe compared to multiple serial studies. IMPRESSION AND PLAN: Respiratory failure was on ventilator, presently extubated; chronic obstructive lung disease; history of breast cancer; anemia; diabetes; recurrent urinary tract infection; noncompliance with treatment plan in the past; active smoker; chronic anxiety; chronic back pain; anemia, cannot rule out metastatic disease to right lung. The patient has refused treatment for breast cancer in the past. Continue inhaled bronchodilators, leukotriene inhibitors, Daliresp, steroids, antibiotic therapy, gastric prophylaxis, fall precaution and deep venous thrombosis prophylaxis. Continue bilevel positive airway pressure use at bedtime. Nursing staff reports, the patient did use bilevel positive airway pressure last night. Kayexalate ordered today for potassium of 5.6. We will order labs in the morning. Continue incentive spirometry use. Continue chest physiotherapy. We will order chest x-ray in the morning. We will start the patient on IV fluids, normal saline at 70 mL per hour. Echocardiogram done March 09, 2018 showed ejection fraction of 63%, right ventricular systolic pressure 34%. Critical care time spent more than 35 minutes. This patient was seen and examined with Dr. Rucker. Discussed the assessment and plan as described above. Thank you for this consult and we will follow with you. Didier Dennis APN Lisa Rucker MD
--- NOTE | 2018-04-02 16:52 | CP.PCM.PN ---
Subjective - Date & Time of Evaluation Date of Evaluation: 04/02/18 Time of Evaluation: 11:00 - Subjective Subjective: Patient is still having SOB at rest, having difficulty breathing, no fevers this morning. Objective - Vital Signs/Intake and Output Vital Signs (last 24 hours): Temp Pulse Resp BP Pulse Ox 99.1 F 116 H 29 H 173/80 H 97 04/01/18 18:59 04/01/18 18:59 04/01/18 18:59 04/01/18 19:00 04/01/18 18:59 Intake and Output: 04/01/18 04/02/18 18:59 06:59 Intake Total 2000 Output Total 350 Balance 1650 - Medications Medications: Current Medications Acetylcysteine (Acetylcysteine 20%) 4 ml IH BIDRESP [facility] Last Admin: 04/01/18 19:22 Dose: 4 ml Albuterol/Ipratropium (Duoneb 3 Mg/0.5 Mg (3 Ml) Ud) 3 ml IH [id number] [facility] Last Admin: 04/01/18 19:23 Dose: 3 ml Albuterol/Ipratropium (Duoneb 3 Mg/0.5 Mg (3 Ml) Ud) 3 ml IH Q2H PRN PRN Reason: Shortness of Breath Last Admin: 04/01/18 15:38 Dose: 3 ml Aspirin (Ecotrin) 81 mg PO DAILY [facility] Last Admin: 04/01/18 09:45 Dose: 81 mg Atorvastatin Calcium (Lipitor) 10 mg PO HS [facility] Last Admin: 04/01/18 21:02 Dose: 10 mg Budesonide (Pulmicort Respules) 0.5 mg IH [id number] [facility] Last Admin: 04/01/18 19:22 Dose: 0.5 mg Calcium Acetate (Phoslo) 1,334 mg PO WM [facility] Last Admin: 04/01/18 17:29 Dose: 1,334 mg Enoxaparin Sodium (Lovenox) 30 mg SC DAILY [facility]; Protocol Last Admin: 04/01/18 09:44 Dose: 30 mg Ergocalciferol (Drisdol 50,000 Intl Units Cap) 1 cap PO Q7D [facility] Last Admin: 04/01/18 09:45 Dose: 1 cap Famotidine (Pepcid) 20 mg PO DAILY [facility] Last Admin: 04/01/18 09:44 Dose: 20 mg Ferrous Gluconate (Fergon) 324 mg PO TID [facility] Last Admin: 04/01/18 17:29 Dose: 324 mg Midazolam 100 mg/100ml in NS (Midazolam 100 Mg/100ml In Ns) 100 mg in 100 mls @ 1 mls/hr IV .Q24H PRN; Protocol PRN Reason: Sedation Last Admin: 03/31/18 05:35 Dose: 1 mg/hr, 1 mls/hr Sodium Chloride (Sodium Chloride 0.9%) 1,000 mls @ 100 mls/hr IV .Q10H [facility] Last Admin: 04/01/18 07:45 Dose: 100 mls/hr Meropenem/Sodium Chloride (Merrem Iv 500 Mg/Ns 50 Ml) 500 mg in 50 mls @ 100 mls/hr IVPB Q12 [facility]; Protocol Stop: 04/09/18 16:40 Last Admin: 04/01/18 21:03 Dose: 100 mls/hr Doxycycline Hyclate 100 mg/ (Sodium Chloride) 100 mls @ 100 mls/hr IVPB Q12 [facility]; Protocol Stop: 04/09/18 22:01 Last Admin: 04/01/18 21:03 Dose: 100 mls/hr Lactated Ringer's (Lactated Ringer's) 1,000 mls @ 100 mls/hr IV .Q10H [facility] Last Admin: 04/01/18 14:41 Dose: 100 mls/hr Lorazepam (Ativan) 0.5 mg PO AMHS [facility]; Protocol Last Admin: 04/01/18 21:02 Dose: 0.5 mg Magnesium Oxide (Mag-Ox) 400 mg PO BID [facility] Last Admin: 04/01/18 17:29 Dose: 400 mg Methylprednisolone (Solu-Medrol) 20 mg IVP Q12H [facility] Last Admin: 04/01/18 12:40 Dose: 20 mg Montelukast Sodium (Singulair) 10 mg PO HS [facility] Last Admin: 04/01/18 21:02 Dose: 10 mg Nicotine (Nicoderm Cq) 1 patch TD DAILY [facility] Last Admin: 04/01/18 09:46 Dose: 1 patch Oxycodone/Acetaminophen (Percocet 5/325 Mg Tab) 1 tab PO Q6H PRN PRN Reason: Pain, moderate (4-7) Stop: 04/03/18 15:09 Last Admin: 04/01/18 20:01 Dose: 1 tab Pantoprazole Sodium (Protonix Ec Tab) 40 mg PO 0600 [facility] Last Admin: 04/01/18 05:09 Dose: 40 mg Roflumilast (Daliresp) 250 mcg PO DAILY [facility] Last Admin: 04/01/18 09:45 Dose: 250 mcg Vitamin B Complex/Vit C/Folic Acid (Nephro-Enrrique) 1 tab PO 0800 [facility] - Labs Labs: 04/01/18 05:30 04/01/18 14:10 - Constitutional Appears: Chronically Ill - Head Exam Head Exam: NORMAL INSPECTION - Neck Exam Neck Exam: absent: Meningismus - Respiratory Exam Respiratory Exam: Decreased Breath Sounds, Rales (scattered) - Cardiovascular Exam Cardiovascular Exam: +S1, +S2 - GI/Abdominal Exam GI & Abdominal Exam: Soft. absent: Tenderness Assessment and Plan - Assessment and Plan (Free Text) Plan: Assessment severe sepsis with hypercapneic respiratory failure S/P VDRF due to congestive heart failure R/O right sided HCAP history of urinary tract infection with Proteus mirabilis history of pneumonia history of Carmen esophagitis End-stage COPD in a patient with a long history of smoking unresectable breast cancer DM HTN history of spine surgery history of bladder surgery history of UTI Plan continue Merrem and Doxycycline (Day 3) and will target 4-7 days of therapy blood cx are negative and nasal MRSA screen is negative PCT is normal will continue monitor clinically
[2018-04-02 21:41] LABS: FOLATE 17.2 ng/mL
[2018-04-03] MEDS: Albuterol-Ipratrop 3 mg / 0.5 (3 ml) UD IH SCH ×4 (01:16→20:09)
[2018-04-03] MEDS: Oxycodone/Acetaminophen 5/325 mg Tab PO PRN ×2 (02:55→07:54)
[2018-04-03 07:01] LABS: GRAN # 6.41 (1.4-6.5); GRAN % 92.8 % (50.0-68.0); HEMOGLOBIN 7.9 g/dL (12.0-16.0); LYMPH # 0.2 (1.2-3.4); LYMPH % 3.3 % (22.0-35.0); MEAN CELL VOLUME 96.4 fl (80.0-105.0); MEAN CORPUSCULAR HEMOGLOBIN 28.1 pg (25.0-35.0); MEAN CORPUSCULAR HGB CONC 29.2 g/dl (31.0-37.0); MEAN PLATELET VOLUME 10.9 fl (7.0-11.0); MONO # 0.3 (0.1-0.6); MONO % 3.9 % (1.0-6.0); RBC 2.81 10^6/uL (3.5-6.1); RED CELL DISTRIBUTION WIDTH 19.1 % (11.5-14.5); WHITE BLOOD COUNT 6.9 10^3/uL (4.5-11.0)
[2018-04-03 07:08] LABS: IRON 44 ug/dL (45-180)
[2018-04-03] MEDS: Budesonide 0.5 mg/2 ml Inhal Susp UD IH SCH ×2 (07:09→20:09)
[2018-04-03] MEDS: Acetylcysteine 20% Inhal Soln (4ml) IH SCH ×2 (07:09→20:08)
[2018-04-03 07:17] LABS: % IRON SATURATION 21 % (20-55); TOTAL IRON BINDING CAPACITY 213 ug/dL (265-497)
[2018-04-03 07:30] LABS: ALB/GLOB RATIO 1.4 (1.1-1.8); ALBUMIN 3.5 g/dL (3.0-4.8); CALCIUM 6.8 mg/dL (8.4-10.5)
[2018-04-03] MEDS: Insulin Reg-MEDIUM-Coverage SC SCH ×4 (07:56→21:30)
[2018-04-03] MEDS: Pantoprazole 40 mg EC Tab PO SCH (07:56)
[2018-04-03] MEDS: Sodium Chloride 0.9% 500 ML IV SCH (08:04)
[2018-04-03] MEDS: Multivitamin Vitamin B Complex (Nephro-Vite) Tab PO SCH (08:05)
--- NOTE | 2018-04-03 08:46 | CP.PCM.PN ---
Subjective - Date & Time of Evaluation Date of Evaluation: 04/03/18 Time of Evaluation: 08:40 - Subjective Subjective: PGY-2 heme/onc progress note for Dr Ruben Gleason No acute events noted overnight. Patent stated she slept well. Denied being in pain. She was AAOx3. She was on high flow oxygen. Still with tangential thought process and unable to answer questions at times. Objective - Vital Signs/Intake and Output Vital Signs (last 24 hours): Temp Pulse Resp BP Pulse Ox 98.4 F 102 H 24 160/80 H 89 L 04/03/18 06:40 04/03/18 06:56 04/03/18 07:12 04/03/18 08:03 04/03/18 06:40 Intake and Output: 04/03/18 04/03/18 06:59 18:59 Intake Total 1840 Output Total 700 Balance 1140 - Medications Medications: Current Medications Acetylcysteine (Acetylcysteine 20%) 4 ml IH BIDRESP [facility] Last Admin: 04/03/18 07:09 Dose: 4 ml Albuterol/Ipratropium (Duoneb 3 Mg/0.5 Mg (3 Ml) Ud) 3 ml IH [id number] [facility] Last Admin: 04/03/18 07:09 Dose: 3 ml Albuterol/Ipratropium (Duoneb 3 Mg/0.5 Mg (3 Ml) Ud) 3 ml IH Q2H PRN PRN Reason: Shortness of Breath Last Admin: 04/02/18 22:00 Dose: 3 ml Alprazolam (Xanax) 0.5 mg PO TID PRN; Protocol PRN Reason: Anxiety Last Admin: 04/03/18 02:55 Dose: 0.5 mg Aspirin (Ecotrin) 81 mg PO DAILY [facility] Last Admin: 04/02/18 09:19 Dose: 81 mg Atorvastatin Calcium (Lipitor) 10 mg PO HS [facility] Last Admin: 04/02/18 21:08 Dose: 10 mg Budesonide (Pulmicort Respules) 0.5 mg IH [id number] [facility] Last Admin: 04/03/18 07:09 Dose: 0.5 mg Calcium Acetate (Phoslo) 2,001 mg PO WM [facility] Last Admin: 04/03/18 07:54 Dose: 2,001 mg Enoxaparin Sodium (Lovenox) 30 mg SC DAILY [facility]; Protocol Last Admin: 04/02/18 09:20 Dose: 30 mg Ergocalciferol (Drisdol 50,000 Intl Units Cap) 1 cap PO Q7D [facility] Last Admin: 04/01/18 09:45 Dose: 1 cap Famotidine (Pepcid) 20 mg PO DAILY [facility] Last Admin: 04/02/18 09:18 Dose: 20 mg Ferrous Gluconate (Fergon) 324 mg PO TID [facility] Last Admin: 04/02/18 17:43 Dose: 324 mg Meropenem/Sodium Chloride (Merrem Iv 500 Mg/Ns 50 Ml) 500 mg in 50 mls @ 100 mls/hr IVPB Q12 [facility]; Protocol Stop: 04/09/18 16:40 Last Admin: 04/02/18 21:09 Dose: 100 mls/hr Doxycycline Hyclate 100 mg/ (Sodium Chloride) 100 mls @ 100 mls/hr IVPB Q12 [facility] ; Protocol Stop: 04/09/18 22:01 Last Admin: 04/02/18 21:09 Dose: 100 mls/hr Sodium Chloride (Sodium Chloride 0.9%) 500 mls @ 70 mls/hr IV .Q7H9M [facility] Last Admin: 04/03/18 08:04 Dose: Not Given Insulin Human Regular (Humulin R Med) 0 units SC ACHS [facility]; Protocol Last Admin: 04/03/18 07:56 Dose: 7 unit Lorazepam (Ativan) 0.5 mg PO HS [facility]; Protocol Last Admin: 04/02/18 21:08 Dose: 0.5 mg Magnesium Oxide (Mag-Ox) 400 mg PO BID [facility] Last Admin: 04/02/18 17:43 Dose: 400 mg Methylprednisolone (Solu-Medrol) 20 mg IVP Q12H [facility] Last Admin: 04/02/18 23:00 Dose: 20 mg Metoprolol Tartrate (Lopressor) 25 mg PO BID [facility] Last Admin: 04/02/18 17:46 Dose: 25 mg Montelukast Sodium (Singulair) 10 mg PO HS [facility] Last Admin: 04/02/18 21:08 Dose: 10 mg Nicotine (Nicoderm Cq) 1 patch TD DAILY [facility] Last Admin: 04/02/18 09:22 Dose: 1 patch Oxycodone/Acetaminophen (Percocet 5/325 Mg Tab) 1 tab PO Q6H PRN PRN Reason: Pain, moderate (4-7) Stop: 04/03/18 15:09 Last Admin: 04/03/18 07:54 Dose: 1 tab Pantoprazole Sodium (Protonix Ec Tab) 40 mg PO 0600 [facility] Last Admin: 04/03/18 07:56 Dose: 40 mg Roflumilast (Daliresp) 250 mcg PO DAILY [facility] Last Admin: 04/02/18 09:51 Dose: 250 mcg Vitamin B Complex/Vit C/Folic Acid (Nephro-Enrrique) 1 tab PO 0800 [facility] Last Admin: 04/03/18 08:05 Dose: 1 tab - Labs Labs: 04/03/18 06:20 04/03/18 06:20 - Additional Findings Additional findings: - Constitutional Appears: No Acute Distress, Older Than Stated Age - Head Exam Head Exam: ATRAUMATIC, NORMAL INSPECTION - Eye Exam Eye Exam: EOMI, Normal appearance, PERRL. absent: Scleral icterus - ENT Exam ENT Exam: Mucous Membranes Moist - Respiratory Exam Respiratory Exam: Decreased Breath Sounds, Rales Additional comments: tachypneic, rales R>L - Cardiovascular Exam Cardiovascular Exam: Tachycardia, REGULAR RHYTHM, +S1, +S2. absent: JVD - GI/Abdominal Exam GI & Abdominal Exam: Normal Bowel Sounds, Soft. absent: Tenderness - Extremities Exam Extremities exam: Positive for: normal capillary refill, normal inspection, pedal pulses present - Neurological Exam Neurological exam: Alert, Oriented x3 - Psychiatric Exam Psychiatric exam: Anxious - Skin Skin Exam: Normal Color, Warm Assessment and Plan - Assessment and Plan (Free Text) Plan: Mrs Granado is a 57 year old female with a PMHx history of breast cancer, severe COPD, anxiety, pneumonia, pleural effusions, CKD, xanax abuse, hx of non- compliance, hx of xanax/oxycodone overose, who presented to the ED in respiratory distress while on non-rebreather. Patient was then intubated while in ED due to lack of airway protection. Hematology/oncology has been consulted for anemia. Anemia -likely anemia of chronic disease 2/2 to ckd -Hgb on admission: 9.7 * chronically anemic since 02/2017 -order for iron studies, retic count, peripheral smear, B12, folate * retic count: 1.72, B12: 476, folate: 17, iron: 44, TIBC 213, %sat: 21, ferritin: 206, MCV: 96 -has received erythropoetin in the past for anemia due to renal disease * CKD 3 and now with DAHLIA -f/u epo level, immunofixation, spep Hx L breast cancer (Dx 2016) invasive ductal carcinoma -ER+/HER2+ -Got 1 cycle of sandee-adjuvant chemo. After that, refuse chemo/surgery. -CT chest w/o contrast showed lymphadenopathy suspicious for tumor * etiology could be malignancy, infectious, inflammatory * repeat CT 1 month after current episode has resolved Case discussed with Dr Ruben Gleason
--- NOTE | 2018-04-03 09:20 | RAD ---
Date of service: 04/03/2018 HISTORY: diminished breath sounds on left; r/o PNTX COMPARISON: 04/01/2018 FINDINGS: The right IJV line terminates in the SVC. LUNGS: There is interval improved aeration in the right lung with residual airspace disease in the lower lobe. The left lung is well inflated. There is moderate pulmonary venous congestion. PLEURA: Small right pleural effusion. No pneumothorax. CARDIOVASCULAR: The heart is normal in size. There are aortic atherosclerotic calcifications present. OSSEOUS STRUCTURES: Within normal limits for the patient's age. VISUALIZED UPPER ABDOMEN: Normal. OTHER FINDINGS: None. IMPRESSION: Interval significant improved aeration in the right lung with residual atelectasis/pneumonia in the lower lobe and small right pleural effusion. No pneumothorax.
[2018-04-03] MEDS ORDERED: Magnesium Sulfate 1 gm in D5W 1 GM/100 ML BAG IVPB ONE (09:39)
[2018-04-03] MEDS: MEROPENEM 500 MG in NS 500 MG/50 ML BAG IVPB SCH ×2 (09:46→21:25)
[2018-04-03] MEDS: Enoxaparin 30 mg Syringe SC SCH (09:51)
[2018-04-03] MEDS: Magnesium Oxide 400 mg Tab UD PO SCH ×2 (09:52→17:15)
[2018-04-03] MEDS: MethylPREDNISolone 40 mg Vial IVP SCH ×2 (10:03→21:00)
--- NOTE | 2018-04-03 11:03 | CP.PCM.PN ---
Subjective - Date & Time of Evaluation Date of Evaluation: 04/03/18 Time of Evaluation: 11:00 - Subjective Subjective: Still on high flow oxygen at rest, still with SOB at rest, no fevers overnight. Still feels weak. Objective - Vital Signs/Intake and Output Vital Signs (last 24 hours): Temp Pulse Resp BP Pulse Ox 98.2 F 109 H 18 153/68 H 100 04/02/18 08:00 04/02/18 14:00 04/02/18 08:00 04/02/18 12:30 04/02/18 08:00 Intake and Output: 04/02/18 04/02/18 06:59 18:59 Intake Total 1900 Output Total 250 Balance 1650 - Medications Medications: Current Medications Acetylcysteine (Acetylcysteine 20%) 4 ml IH BIDRESP [facility] Last Admin: 04/02/18 07:28 Dose: 4 ml Albuterol/Ipratropium (Duoneb 3 Mg/0.5 Mg (3 Ml) Ud) 3 ml IH [id number] [facility] Last Admin: 04/02/18 13:06 Dose: 3 ml Albuterol/Ipratropium (Duoneb 3 Mg/0.5 Mg (3 Ml) Ud) 3 ml IH Q2H PRN PRN Reason: Shortness of Breath Last Admin: 04/02/18 14:57 Dose: 3 ml Aspirin (Ecotrin) 81 mg PO DAILY [facility] Last Admin: 04/02/18 09:19 Dose: 81 mg Atorvastatin Calcium (Lipitor) 10 mg PO HS [facility] Last Admin: 04/01/18 21:02 Dose: 10 mg Budesonide (Pulmicort Respules) 0.5 mg IH [id number] [facility] Last Admin: 04/02/18 07:28 Dose: 0.5 mg Calcium Acetate (Phoslo) 2,001 mg PO WM [facility] Last Admin: 04/02/18 12:43 Dose: 2,001 mg Enoxaparin Sodium (Lovenox) 30 mg SC DAILY [facility]; Protocol Last Admin: 04/02/18 09:20 Dose: 30 mg Ergocalciferol (Drisdol 50,000 Intl Units Cap) 1 cap PO Q7D [facility] Last Admin: 04/01/18 09:45 Dose: 1 cap Famotidine (Pepcid) 20 mg PO DAILY [facility] Last Admin: 04/02/18 09:18 Dose: 20 mg Ferrous Gluconate (Fergon) 324 mg PO TID [facility] Last Admin: 04/02/18 15:00 Dose: 324 mg Meropenem/Sodium Chloride (Merrem Iv 500 Mg/Ns 50 Ml) 500 mg in 50 mls @ 100 mls/hr IVPB Q12 [facility]; Protocol Stop: 04/09/18 16:40 Last Admin: 04/02/18 09:20 Dose: 100 mls/hr Doxycycline Hyclate 100 mg/ (Sodium Chloride) 100 mls @ 100 mls/hr IVPB Q12 [facility]; Protocol Stop: 04/09/18 22:01 Last Admin: 04/02/18 09:20 Dose: 100 mls/hr Sodium Chloride (Sodium Chloride 0.9%) 500 mls @ 70 mls/hr IV .Q7H9M [facility] Last Admin: 04/02/18 15:11 Dose: 70 mls/hr Insulin Human Regular (Humulin R Med) 0 units SC ACHS [facility]; Protocol Last Admin: 04/02/18 12:41 Dose: 1 unit Lorazepam (Ativan) 0.5 mg PO HS [facility]; Protocol Magnesium Oxide (Mag-Ox) 400 mg PO BID [facility] Last Admin: 04/02/18 09:18 Dose: 400 mg Methylprednisolone (Solu-Medrol) 20 mg IVP Q12H [facility] Last Admin: 04/02/18 10:28 Dose: 20 mg Metoprolol Tartrate (Lopressor) 25 mg PO BID [facility] Montelukast Sodium (Singulair) 10 mg PO HS [facility] Last Admin: 04/01/18 21:02 Dose: 10 mg Nicotine (Nicoderm Cq) 1 patch TD DAILY [facility] Last Admin: 04/02/18 09:22 Dose: 1 patch Oxycodone/Acetaminophen (Percocet 5/325 Mg Tab) 1 tab PO Q6H PRN PRN Reason: Pain, moderate (4-7) Stop: 04/03/18 15:09 Last Admin: 04/02/18 05:04 Dose: 1 tab Pantoprazole Sodium (Protonix Ec Tab) 40 mg PO 0600 [facility] Last Admin: 04/02/18 06:21 Dose: 40 mg Roflumilast (Daliresp) 250 mcg PO DAILY [facility] Last Admin: 04/02/18 09:51 Dose: 250 mcg Vitamin B Complex/Vit C/Folic Acid (Nephro-Enrrique) 1 tab PO 0800 [facility] Last Admin: 04/02/18 07:54 Dose: 1 tab - Labs Labs: 04/02/18 05:40 04/02/18 05:40 - Constitutional Appears: Chronically Ill - Head Exam Head Exam: NORMAL INSPECTION - Neck Exam Neck Exam: absent: Meningismus - Respiratory Exam Respiratory Exam: Decreased Breath Sounds - Cardiovascular Exam Cardiovascular Exam: +S1, +S2 - GI/Abdominal Exam GI & Abdominal Exam: Soft. absent: Tenderness Assessment and Plan - Assessment and Plan (Free Text) Plan: Assessment severe sepsis with hypercapneic respiratory failure S/P VDRF due to congestive heart failure R/O right sided HCAP history of urinary tract infection with Proteus mirabilis history of pneumonia history of Carmen esophagitis End-stage COPD in a patient with a long history of smoking unresectable breast cancer DM HTN history of spine surgery history of bladder surgery history of UTI Plan continue Merrem and Doxycycline (Day 4) and will target 4-7 days of therapy blood cx are negative and nasal MRSA screen is negative PCT is normal will continue monitor clinically
--- NOTE | 2018-04-03 12:17 | CP.PCM.CON ---
History of Present Illness - History of Present Illness History of Present Illness: Palliative consult requested Amber Sosa Reason: Goals of care and advance care planning 57 year old female with history of COPD who presented on 03/31 with respiratory distress. Initial x ray showed progressive opacification/volume loss within right hemithorax. She was intubated for air way protection, but has since been extubated. Subsequent serial x rays showing significantly improved aeration in right lung. CT of chest done 0n 03/11/18 showed new chest wall lymphadenopathy suspicious for tumor. PMHx: COPD, ER/NC/Her2 Maria G positive breast cancer> refused chemo/ XRT, DM, CKD,HTN, anemia, anxiety, substance abuse/ overdose, UTI PSHx:mastectomy, bladder surgery, spinal surgery Social History: Current smoker, substance abuse. Lives with family Family History : Non contributory. Advance Care Planning: the patient does not have an Advanced Directive. Review of Systems:As per HPI, denies other complaints,10 point ROS negative Past Patient History - Infectious Disease Hx of Infectious Diseases: None - Tetanus Immunizations Tetanus Immunization: Unknown - Past Medical History & Family History Past Medical History?: Yes - Past Social History Smoking Status: Former Smoker - CARDIAC Hx Cardiac Disorders: Yes Hx Hypertension: Yes - PULMONARY Hx Chronic Obstructive Pulmonary Disease (COPD): Yes - NEUROLOGICAL Hx Neurological Disorder: No - HEENT Hx HEENT Problems: No - RENAL Hx Chronic Kidney Disease: No - ENDOCRINE/METABOLIC Hx Diabetes Mellitus Type 2: Yes - HEMATOLOGICAL/ONCOLOGICAL Hx Blood Disorders: Yes (blood transfusion) Hx Cancer: Yes (left breast dx 06/2015) Hx Chemotherapy: Yes (2016 as per son) - INTEGUMENTARY Hx Dermatological Problems: No - MUSCULOSKELETAL/RHEUMATOLOGICAL Hx Falls: Yes - GASTROINTESTINAL Hx Gastrointestinal Disorders: No - GENITOURINARY/GYNECOLOGICAL Hx Genitourinary Disorders: No - PSYCHIATRIC Hx Psychophysiologic Disorder: Yes Hx Anxiety: Yes Hx Depression: Yes Hx Substance Use: No - SURGICAL HISTORY Hx Surgeries: Yes - ANESTHESIA Hx Anesthesia: Yes Hx Anesthesia Reactions: No Hx Malignant Hyperthermia: No Meds Allergies/Adverse Reactions: Allergies Allergy/AdvReac Type Severity Reaction Status Date / Time levofloxacin [From Levaquin] Allergy SHORTNESS Verified 03/31/18 02:26 OF BREATH;PARANOID nystatin Allergy SWELLING Verified 03/31/18 02:26 - Medications Medications: Current Medications Acetylcysteine (Acetylcysteine 20%) 4 ml IH BIDRESP [facility] Last Admin: 04/03/18 07:09 Dose: 4 ml Albuterol/Ipratropium (Duoneb 3 Mg/0.5 Mg (3 Ml) Ud) 3 ml IH [id number] [facility] Last Admin: 04/03/18 07:09 Dose: 3 ml Albuterol/Ipratropium (Duoneb 3 Mg/0.5 Mg (3 Ml) Ud) 3 ml IH Q2H PRN PRN Reason: Shortness of Breath Last Admin: 04/02/18 22:00 Dose: 3 ml Alprazolam (Xanax) 0.5 mg PO TID PRN; Protocol PRN Reason: Anxiety Last Admin: 04/03/18 02:55 Dose: 0.5 mg Amlodipine Besylate (Norvasc) 5 mg PO DAILY [facility] Last Admin: 04/03/18 10:02 Dose: 5 mg Aspirin (Ecotrin) 81 mg PO DAILY [facility] Last Admin: 04/03/18 09:52 Dose: 81 mg Atorvastatin Calcium (Lipitor) 10 mg PO HS [facility] Last Admin: 04/02/18 21:08 Dose: 10 mg Budesonide (Pulmicort Respules) 0.5 mg IH [id number] [facility] Last Admin: 04/03/18 07:09 Dose: 0.5 mg Calcium Acetate (Phoslo) 2,001 mg PO WM [facility] Last Admin: 04/03/18 07:54 Dose: 2,001 mg Enoxaparin Sodium (Lovenox) 30 mg SC DAILY [facility]; Protocol Last Admin: 04/03/18 09:51 Dose: 30 mg Ergocalciferol (Drisdol 50,000 Intl Units Cap) 1 cap PO Q7D [facility] Last Admin: 04/01/18 09:45 Dose: 1 cap Famotidine (Pepcid) 20 mg PO DAILY [facility] Last Admin: 04/03/18 09:53 Dose: 20 mg Ferrous Gluconate (Fergon) 324 mg PO TID [facility] Last Admin: 04/03/18 09:52 Dose: 324 mg Furosemide (Lasix) 40 mg IV DAILY [facility] Hydralazine HCl (Apresoline) 50 mg PO BID [facility] Hydralazine HCl (Apresoline) 10 mg PO QID PRN PRN Reason: for sbp>170 Meropenem/Sodium Chloride (Merrem Iv 500 Mg/Ns 50 Ml) 500 mg in 50 mls @ 100 mls/hr IVPB Q12 [facility]; Protocol Stop: 04/09/18 16:40 Last Admin: 04/03/18 09:46 Dose: 100 mls/hr Doxycycline Hyclate 100 mg/ (Sodium Chloride) 100 mls @ 100 mls/hr IVPB Q12 [facility]; Protocol Stop: 04/09/18 22:01 Last Admin: 04/03/18 09:54 Dose: 100 mls/hr Insulin Detemir (Levemir) 15 unit SC HS [facility] Insulin Human Lispro (Humalog) 5 units SC AC [facility] Insulin Human Regular (Humulin R Med) 0 units SC ACHS [facility]; Protocol Last Admin: 04/03/18 07:56 Dose: 7 unit Lorazepam (Ativan) 0.5 mg PO HS [facility]; Protocol Last Admin: 04/02/18 21:08 Dose: 0.5 mg Magnesium Oxide (Mag-Ox) 400 mg PO BID [facility] Last Admin: 04/03/18 09:52 Dose: 400 mg Methylprednisolone (Solu-Medrol) 20 mg IVP Q12H [facility] Last Admin: 04/03/18 10:03 Dose: 20 mg Metoprolol Tartrate (Lopressor) 25 mg PO BID [facility] Last Admin: 04/03/18 09:53 Dose: 25 mg Montelukast Sodium (Singulair) 10 mg PO HS [facility] Last Admin: 04/02/18 21:08 Dose: 10 mg Nicotine (Nicoderm Cq) 1 patch TD DAILY [facility] Last Admin: 04/03/18 09:53 Dose: 1 patch Oxycodone/Acetaminophen (Percocet 5/325 Mg Tab) 1 tab PO Q6H PRN PRN Reason: Pain, moderate (4-7) Stop: 04/03/18 15:09 Last Admin: 04/03/18 07:54 Dose: 1 tab Pantoprazole Sodium (Protonix Ec Tab) 40 mg PO 0600 [facility] Last Admin: 04/03/18 07:56 Dose: 40 mg Roflumilast (Daliresp) 250 mcg PO DAILY [facility] Last Admin: 04/03/18 09:52 Dose: 250 mcg Vitamin B Complex/Vit C/Folic Acid (Nephro-Enrrique) 1 tab PO 0800 [facility] Last Admin: 04/03/18 08:05 Dose: 1 tab Physical Exam - Constitutional Appears: Chronically Ill - Head Exam Head Exam: NORMOCEPHALIC - Eye Exam Eye Exam: Normal appearance, PERRL - ENT Exam ENT Exam: Mucous Membranes Moist - Neck Exam Neck exam: Positive for: Normal Inspection - Respiratory Exam Respiratory Exam: Decreased Breath Sounds, Rhonchi - Cardiovascular Exam Cardiovascular Exam: REGULAR RHYTHM, +S1, +S2 - GI/Abdominal Exam GI & Abdominal Exam: Normal Bowel Sounds - Back Exam Back exam: NORMAL INSPECTION - Neurological Exam Neurological exam: Alert - Skin Skin Exam: Dry, Pallor Additional comments: right chest port a cath site dry/no erythema - Additional Findings Additional findings: Palliative performance scale rating 40% Results - Vital Signs Recent Vital Signs: Last Vital Signs Temp 98.4 F 04/03/18 06:40 Pulse 100 H 04/03/18 10:02 Resp 24 04/03/18 07:12 BP 168/68 H 04/03/18 10:02 Pulse Ox 89 L 04/03/18 06:40 - Labs Result Diagrams: 04/03/18 06:20 04/03/18 06:20 Labs: Laboratory Results - last 24 hr 04/02/18 04/02/18 04/02/18 01:50 05:40 11:23 WBC 9.6 D RBC 2.97 L Hgb 8.2 L Hct 29.2 L MCV 98.3 MCH 27.6 MCHC 28.1 L RDW 19.6 H Plt Count 210 MPV 10.7 Gran % 94.5 H Lymph % (Auto) 2.8 L [place] % (Auto) 2.7 Eos % (Auto) 0.0 L Baso % (Auto) 0.0 Gran # 9.02 H Lymph # (Auto) 0.3 L [place] # (Auto) 0.3 Eos # (Auto) 0.0 Baso # (Auto) 0.00 Differential Comment See pathology report Retic Count 1.72 H Sodium Potassium Chloride Carbon Dioxide Anion Gap BUN Creatinine Est GFR ( Amer) Est GFR (Non-Af Amer) POC Glucose (mg/dL) 168 H Random Glucose Uric Acid Calcium Phosphorus Magnesium Iron TIBC % Saturation Ferritin Total Bilirubin AST ALT Alkaline Phosphatase Total Protein Albumin Globulin Albumin/Globulin Ratio Triglycerides Cholesterol LDL Cholesterol Direct HDL Cholesterol Vitamin B12 Folate TSH 3rd Generation Ur L.pneumophila Ag Negative 04/02/18 04/02/1804/02/19 13:00 16:12 21:14 WBC RBC Hgb Hct MCV MCH MCHC RDW Plt Count MPV Gran % Lymph % (Auto) [place] % (Auto) Eos % (Auto) Baso % (Auto) Gran # Lymph # (Auto) [place] # (Auto) Eos # (Auto) Baso # (Auto) Differential Comment Retic Count Sodium Potassium Chloride Carbon Dioxide Anion Gap BUN Creatinine Est GFR ( Amer) Est GFR (Non-Af Amer) POC Glucose (mg/dL) 227 H 283 H Random Glucose Uric Acid Calcium Phosphorus Magnesium Iron TIBC % Saturation Ferritin 206.0 Total Bilirubin AST ALT Alkaline Phosphatase Total Protein Albumin Globulin Albumin/Globulin Ratio Triglycerides Cholesterol LDL Cholesterol Direct HDL Cholesterol Vitamin B12 476 Folate 17.2 TSH 3rd Generation Ur L.pneumophila Ag 04/03/18 04/03/18 04/03/18 06:20 06:20 06:20 WBC 6.9 D RBC 2.81 L Hgb 7.9 L Hct 27.1 L MCV 96.4 MCH 28.1 MCHC 29.2 L RDW 19.1 H Plt Count 189 MPV 10.9 Gran % 92.8 H Lymph % (Auto) 3.3 L [place] % (Auto) 3.9 Eos % (Auto) 0.0 L Baso % (Auto) 0.0 Gran # 6.41 Lymph # (Auto) 0.2 L [place] # (Auto) 0.3 Eos # (Auto) 0.0 Baso # (Auto) 0.00 Differential Comment Retic Count Sodium 138 Potassium 4.7 Chloride 102 Carbon Dioxide 23 Anion Gap 18 BUN 70 H Creatinine 4.3 H Est GFR ( Amer) 13 Est GFR (Non-Af Amer) 11 POC Glucose (mg/dL) Random Glucose 286 H Uric Acid 9.0 H Calcium 6.8 L* Phosphorus 8.7 H Magnesium 1.4 L Iron 44 L TIBC 213 L % Saturation 21 Ferritin Total Bilirubin 0.3 AST 23 ALT 65 H Alkaline Phosphatase 71 Total Protein 6.1 Albumin 3.5 Globulin 2.6 Albumin/Globulin Ratio 1.4 Triglycerides 227 H Cholesterol 202 H LDL Cholesterol Direct 111 HDL Cholesterol 60 Vitamin B12 Folate TSH 3rd Generation Ur L.pneumophila Ag 04/03/18 04/03/18 06:20 07:37 WBC RBC Hgb Hct MCV MCH MCHC RDW Plt Count MPV Gran % Lymph % (Auto) [place] % (Auto) Eos % (Auto) Baso % (Auto) Gran # Lymph # (Auto) [place] # (Auto) Eos # (Auto) Baso # (Auto) Differential Comment Retic Count Sodium Potassium Chloride Carbon Dioxide Anion Gap BUN Creatinine Est GFR ( Amer) Est GFR (Non-Af Amer) POC Glucose (mg/dL) 321 H Random Glucose Uric Acid Calcium Phosphorus Magnesium Iron TIBC % Saturation Ferritin Total Bilirubin AST ALT Alkaline Phosphatase Total Protein Albumin Globulin Albumin/Globulin Ratio Triglycerides Cholesterol LDL Cholesterol Direct HDL Cholesterol Vitamin B12 Folate TSH 3rd Generation 0.38 L Ur L.pneumophila Ag Assessment & Plan - Assessment and Plan (Free Text) Assessment: 57 year old female with multiple comorbidites (see PMH) who is admitted with acute respiratory failure s/p intubation, worsening kidney disease secondary DM/HTN, anemia, hyperglycemia. The patient is sitting in chair,alert, no acute distress. Lucia TURCIOS and I tried to discuss goals of care and advance care planning with Yazmin She has very poor attention span. Unsure as to whether she understood my conversation. She did not answer my questions. She kept looking at TV. I attempted to redirect her but she did not want to engage in conversation. KAROLINA will try to arrange for family meeting for further discussion regarding goals of care. Time spent with patient in goals of care, 10 minutes Plan: Goals of care Pulmonary: Maintain 02 sat>95%. Continue nebulizers, Doxycline, smoking cessation> Nicoderm. Cardio/HTN: Continue Hydralazine,Lasix,Norvasc, Ecotrin, Lipitor. DM: Levemir, fingersticks ACHS Humalog as ordered
[2018-04-03] MEDS: Insulin Lispro 1 UNITS/0.01 ML SC SCH ×2 (12:20→17:14)
--- NOTE | 2018-04-03 12:31 | CP.PCM.PN ---
Subjective - Date & Time of Evaluation Date of Evaluation: 04/03/18 Time of Evaluation: 12:29 - Subjective Subjective: Nephrology Consultation Note: Assessment: critical DAHLIA worsening ? ATN acute on chronc respi acidosis with respi failure with renal compensation rt large pleural effusion with chest wall mass ? malignant (hx of breast CA) Diabetic chronic Kidney Disease (E11.22) Hypertensive Chronic Kidney Disease (I12.9) Chronic Kidney Disease (N18.3) Stage 3 with 1200 mg proteinuria and 400 mg albuminuria (R80.9) likely due to DM/HTN Anemia (D64.9) hyperphosphatemia COPD/asthma, active smoker, breast cancer s/p surgery 2 years ago active smoker Plan No acute need for renal replacement therapy at this time but may need soon and will need close follow up. overall poor prognosis, recommend palliative care Hypertension control with meds as ordered. Maintain hemodynamics stable. Avoid hypotension. Patient not on ACEI/ARB due to low BP and hyperkalemia. started on lopressor by cardiology. added norvasc Monitor Input/Output, daily weights and renal function with basic metabolic panel low K diet low Phos diet, added phos binders will defer use of [place] in view of her recent breast malignancy with concerns for mets started iron, MVI and weekly Vit D d/c IVF and added diuretics supplement lytes as needed Dose meds/antibiotics for reduced GFR. Avoid fleets enema/magnesium based laxatives. Avoid nephrotoxins/NSAIDs/ iodinated contrast (unless needed emergently) Glycemic control. pt need to stop smoking Further work up/management as per primary team Thanks for allowing me to participate in care of your patient. Will follow patie nt with you. Please call if any Qs. had d/w team Dr Marco Antonio Chatman Office: [phone] Chief Complaint; SOB Reason for consult: CKD 3 HPI: Pt is a 57 F with hx of diabetes Mellitus ( years), hypertension (years) COPD/asthma, active smoker, breast cancer s/p surgery 2 years ago but didn't complete treatment now with mets, anemia, CKD stage 3 with baseline cr 1.8 mg/dL admitted with acute respi distress hypercapnic respi failure and intubated, now seen for CKD management Denies OTC/herbal meds or NSAIDs No recent iodinated contrast exposure. Noted obvious episodes of low BP. ROS: pt is a poor historian and overall hx is limited from her. not much interactive Physical Examination: General Appearance: ill appearing. on high flow o2 Vitals reviewed and noted as below Head; Atraumatic, normocephalic ENT: no ulcers no thrush. Tongue is midline. Oropharynx: no rash or ulcers. she is hard of hearing EYES: Pupils are equal, round and reactive to light accommodation. Eye muscles and extraocular movement intact. Sclera is anicteric. Neck; supple no lymphadenopathy, no thyromegaly or bruit Lungs: Increased respiratory rate/effort. Breath sounds reduced at base with b/l wheezing Heart: Increased rate. s1s2 normal. No rub or gallop. Extremities: 2+ edema. No varicose veins Neurological: Patient is alert, awake and oriented to person, place and time. No focal deficit. Strength bilateral appropriate and equal Skin: Warm and dry. Normal turgor. No rash. Palpitation: Normal elasticity for age Abdomen: Abdomen is soft. Bowel sounds +. There is no abdominal tenderness, no guarding/rigidity no organomegaly Psych: lack insight and flat affect/mood MSK: no joint tenderness or swelling. Digits and nails normal, no deformity : kidney or bladder not palpable Labs/imaging reviewed. Past medical history, past surgical history, family history, social history, allergy reviewed and noted as below Family hx: no hx of CKD. Rest non-contributory renal imaging: b/l cysts echo normal LVEF TSAt 26% ferritin 45 Serum FLC assay WNL ABDIRIZAK neg PTH 154 Vit D 17 Objective - Vital Signs/Intake and Output Vital Signs (last 24 hours): Temp Pulse Resp BP Pulse Ox 98.4 F 100 H 24 161/70 H 89 L 04/03/18 06:40 04/03/18 12:19 04/03/18 07:12 04/03/18 12:19 04/03/18 06:40 Intake and Output: 04/03/18 04/03/18 06:59 18:59 Intake Total 1840 Output Total 700 Balance 1140 - Medications Medications: Current Medications Acetylcysteine (Acetylcysteine 20%) 4 ml IH BIDRESP [facility] Last Admin: 04/03/18 07:09 Dose: 4 ml Albuterol/Ipratropium (Duoneb 3 Mg/0.5 Mg (3 Ml) Ud) 3 ml IH [id number] [facility] Last Admin: 04/03/18 07:09 Dose: 3 ml Albuterol/Ipratropium (Duoneb 3 Mg/0.5 Mg (3 Ml) Ud) 3 ml IH Q2H PRN PRN Reason: Shortness of Breath Last Admin: 04/02/18 22:00 Dose: 3 ml Alprazolam (Xanax) 0.5 mg PO TID PRN; Protocol PRN Reason: Anxiety Last Admin: 04/03/18 02:55 Dose: 0.5 mg Amlodipine Besylate (Norvasc) 5 mg PO DAILY [facility] Last Admin: 04/03/18 10:02 Dose: 5 mg Aspirin (Ecotrin) 81 mg PO DAILY [facility] Last Admin: 04/03/18 09:52 Dose: 81 mg Atorvastatin Calcium (Lipitor) 10 mg PO HS [facility] Last Admin: 04/02/18 21:08 Dose: 10 mg Budesonide (Pulmicort Respules) 0.5 mg IH [id number] [facility] Last Admin: 04/03/18 07:09 Dose: 0.5 mg Calcium Acetate (Phoslo) 2,001 mg PO WM [facility] Last Admin: 04/03/18 07:54 Dose: 2,001 mg Enoxaparin Sodium (Lovenox) 30 mg SC DAILY [facility]; Protocol Last Admin: 04/03/18 09:51 Dose: 30 mg Ergocalciferol (Drisdol 50,000 Intl Units Cap) 1 cap PO Q7D [facility] Last Admin: 04/01/18 09:45 Dose: 1 cap Famotidine (Pepcid) 20 mg PO DAILY [facility] Last Admin: 04/03/18 09:53 Dose: 20 mg Ferrous Gluconate (Fergon) 324 mg PO TID [facility] Last Admin: 04/03/18 09:52 Dose: 324 mg Furosemide (Lasix) 40 mg IV DAILY [facility] Hydralazine HCl (Apresoline) 50 mg PO BID [facility] Last Admin: 04/03/18 12:19 Dose: 50 mg Hydralazine HCl (Apresoline) 10 mg PO QID PRN PRN Reason: for sbp>170 Meropenem/Sodium Chloride (Merrem Iv 500 Mg/Ns 50 Ml) 500 mg in 50 mls @ 100 ml s/hr IVPB Q12 [facility]; Protocol Stop: 04/09/18 16:40 Last Admin: 04/03/18 09:46 Dose: 100 mls/hr Doxycycline Hyclate 100 mg/ (Sodium Chloride) 100 mls @ 100 mls/hr IVPB Q12 [facility]; Protocol Stop: 04/09/18 22:01 Last Admin: 04/03/18 09:54 Dose: 100 mls/hr Insulin Detemir (Levemir) 15 unit SC HS [facility] Insulin Human Lispro (Humalog) 5 units SC AC [facility] Last Admin: 04/03/18 12:20 Dose: 5 u Insulin Human Regular (Humulin R Med) 0 units SC ACHS [facility]; Protocol Last Admin: 04/03/18 12:21 Dose: 3 unit Lorazepam (Ativan) 0.5 mg PO HS [facility]; Protocol Last Admin: 04/02/18 21:08 Dose: 0.5 mg Magnesium Oxide (Mag-Ox) 400 mg PO BID [facility] Last Admin: 04/03/18 09:52 Dose: 400 mg Methylprednisolone (Solu-Medrol) 20 mg IVP Q12H [facility] Last Admin: 04/03/18 10:03 Dose: 20 mg Metoprolol Tartrate (Lopressor) 25 mg PO BID [facility] Last Admin: 04/03/18 09:53 Dose: 25 mg Montelukast Sodium (Singulair) 10 mg PO [facility] Last Admin: 04/02/18 21:08 Dose: 10 mg Nicotine (Nicoderm Cq) 1 patch TD DAILY [facility] Last Admin: 04/03/18 09:53 Dose: 1 patch Oxycodone/Acetaminophen (Percocet 5/325 Mg Tab) 1 tab PO Q6H PRN PRN Reason: Pain, moderate (4-7) Stop: 04/03/18 15:09 Last Admin: 04/03/18 07:54 Dose: 1 tab Pantoprazole Sodium (Protonix Ec Tab) 40 mg PO 0600 [facility] Last Admin: 04/03/18 07:56 Dose: 40 mg Roflumilast (Daliresp) 250 mcg PO DAILY [facility] Last Admin: 04/03/18 09:52 Dose: 250 mcg Vitamin B Complex/Vit C/Folic Acid (Nephro-Enrrique) 1 tab PO 0800 [facility] Last Admin: 04/03/18 08:05 Dose: 1 tab - Labs Labs: 04/03/18 06:20 04/03/18 06:20
--- NOTE | 2018-04-03 14:20 | PN ---
DATE: 04/03/2018 PULMONARY PROGRESS NOTE REFERRING PHYSICIAN: Sloan Sosa MD SUBJECTIVE: The patient is sitting up in chair in room. No acute distress. Currently on high-flow oxygen. Reports still having cough, shortness of breath, feeling congestion. No headache, rhinitis, chest pain, abdominal pain, nausea, vomiting, diarrhea or leg pain reported. OBJECTIVE: GENERAL: No acute distress. VITAL SIGNS: Blood pressure 161/70, pulse 100 and temperature 98.4. HEENT: Moist mucous membranes. NECK: Supple. No JVD. LUNGS: Rhonchi bilaterally. Diminished breath sounds in the right, wheezing audible on the left. CARDIOVASCULAR: S1 and S2 audible and tachycardic. ABDOMEN: Soft and nontender. No distention. EXTREMITIES: Bilateral lower extremity edema. MEDICATIONS: Reviewed. Mucomyst 4 mL twice a day inhalation, DuoNeb 3 mL inhalation every 2 hours p.r.n., DuoNeb 3 mL inhalation every 6 hours, Xanax 0.5 mg 3 times a day p.r.n., Norvasc 5 mg daily, aspirin 81 mg daily, Lipitor 10 mg at bedtime, Pulmicort 0.5 mg inhalation every 12 hours, calcium acetate 2001 mg Monday and Monday, doxycycline 100 mg every 12 hours, Lovenox 30 mg subcutaneous daily, ergocalciferol 50,000 units every 7 days, Pepcid 20 mg daily, ferrous gluconate 324 mg 3 times a day, Lasix 40 mg daily, hydralazine 10 mg 4 times a day p.r.n., hydralazine 15 mg twice a day, Levemir 15 units subcutaneously at bedtime, Humalog 5 units subcutaneously at bedtime, Humulin R sliding scale a.c. and at bedtime, Ativan 0.5 mg at bedtime, magnesium oxide 400 mg twice a day, meropenem 500 mg every 12 hours, Solu-Medrol 20 mg every 12 hours, metoprolol tartrate 25 mg twice a day, Singulair 10 mg at bedtime, nicotine patch transdermally daily, Percocet 5/325 mg every 6 hours p.r.n., Protonix 40 mg daily, Daliresp 250 mcg daily and Nephro-Enrrique one tab daily. LABORATORY DATA: Reviewed. WBC 6.9, RBC 2.81, hemoglobin 7.9, hematocrit 27.1 and platelets 189. Sodium 138, potassium 4.7, chloride 102, carbon dioxide 23, anion gap 18, BUN 70, creatinine 4.3, GFR is 11, POC glucose 321, random glucose 286, uric acid 6, calcium 6.8, phosphorous 8.7, magnesium 1.4, iron 44, TIBC 213, percent saturation 21, total bilirubin 0.3, AST 23, ALT 65, alkaline phosphatase 71, total protein 6.1, albumin 3.5, globulin 2.6 and albumin-globulin ratio 1.4. Triglycerides 227, cholesterol 202, LDL cholesterol 111, HDL cholesterol 60. TSH 0.38, urine protein 100, urine glucose 250, urine blood small, urine leukocyte esterase small, urine RBC 1 to 3, urine WBC 5 to 10. Urine culture shows yeast colony count greater than [id number]. Blood cultures preliminary no growth after 3 days. Chest x-ray shows interval significant improved aeration in the right lung with a residual atelectasis or pneumonia in the lower lobe and small right pleural effusion. No pneumothorax. IMPRESSION AND PLAN: Respiratory failure was on ventilator, presently extubated; chronic obstructive lung disease; history of breast cancer; anemia; diabetes; recurrent urinary tract infection; noncompliance with treatment plan in the past; active smoker; chronic anxiety; chronic back pain; anemia, cannot rule out metastatic disease to right lung. The patient has refused treatment for breast cancer in the past. Continue inhaled bronchodilators, leukotriene inhibitors, steroids, antibiotic therapy, gastric prophylaxis, fall precaution and deep venous thrombosis prophylaxis. We will increase Solu-Medrol to 40 mg every 8 hours. We will get ABG, chest x-ray, procalcitonin, proBNP in the morning. Continue bilevel positive airway pressure use at bedtime. Head of bed elevated at 45 degrees. Continue incentive spirometry use. Continue chest physiotherapy. Critical care time spent more than 35 minutes. This patient was seen and examined with Dr. Rucker. Discussed the assessment and plan as described above. Thank you for this consult. We will follow with you. Didier Prudence, TUMBLER OPERATOR Lisa Rucker MD
--- NOTE | 2018-04-03 14:47 | PN ---
DATE: 04/02/2018 SUBJECTIVE: The patient is still in ICU. She still have significant respiratory distress and worsening kidney function. The patient's family is around, the son and daughter. She has no new complaints. PHYSICAL EXAMINATION: VITAL SIGNS: Temperature 98.1, heart rate 104, blood pressure is 141/80, respiratory rate 34, and saturating 93% on oxygen 3 liters. HEENT: Head and neck examination is normal. No JVD. CHEST EXAM: Diminished breath sounds bilaterally, right more than left. CARDIAC: First sound and second sound normal. ABDOMEN: Soft and nontender. EXTREMITIES: Mild edema. NEUROLOGIC: Normal. The patient is a little bit anxious on examinations. LABORATORY DATA: On 04/02/2018, she had white count 9.5, hemoglobin 8.2, hematocrit 29.2, and platelets 210. Chemistry: Sodium 141, potassium 5.6, chloride 106, bicarb 22, BUN 58, and creatinine 3.6. Blood sugar 300 and calcium 6.6, the patient's magnesium 1.5. IMPRESSION AND PLAN: 1. Acute severe chronic obstructive pulmonary disease exacerbation, the patient currently on intravenous steroids. Continue nebulizers treatment, Pulmicort plus Mucomyst and nebulizers treatment. 2. Congestive heart failure. We continue followup with the business segment manager. 3. The patient does have acute on top of chronic renal failure, which seems progressively worse with hyperkalemia. She still make good urine output; however, persistent hyperkalemia could eventually be problems that need hemodialysis later. At this time, we will continue medical therapy for hyperkalemia with Kayexalate and follow up on her labs. 4. Insulin dependent diabetes, still high. We will then increase and adjust her insulin regimen. 5. Hypertension. Continue current medication, Lopressor, metoprolol 25 mg twice a day. 6. Community-acquired pneumonia. Continue doxycycline and Merrem intravenous. 7. As I mentioned, hypertension. Continue metoprolol and Norvasc 5 mg daily. 8. Chronic back pain. Continue Percocet. Chronic anxiety, stable on Xanax. Ativan is not helping. We will follow up with psychiatrist, but will keep Ativan at night only 0.5. Continue gastrointestinal and deep vein thrombosis prophylaxis. We will follow up clinically. We will talk with the patient about her code status. The patient did mention in the past, if recommendations seems to be irreversible or is not getting it better and terminal, we will not intubate. 9. For acute pneumonia and acute respiratory problem that potentially get better, we can try intubation, and if is not getting better on the tube and in the ventilator and is going to be prolonged, she is advised to discontinue the ventilator and do not resuscitate her. This I did explained to her in detail and that's what she wants. Sloan Sosa MD
--- NOTE | 2018-04-03 15:04 | PN ---
DATE: 04/03/2018 REASON FOR CONSULTATION: Cardiac evaluation, rule out congestive heart failure, COPD exacerbation, respiratory distress, and large pleural effusion. SUBJECTIVE: The patient denies any chest pain, shortness of breath or any palpitations, feels less short of breath. PHYSICAL EXAMINATION: As follows; GENERAL: Sitting in the bed, mild short of breath, asking for the pain medication. VITAL SIGNS: Temperature afebrile, heart rate 103, and blood pressure 182/62. HEENT: PERRLA, extraocular muscles are intact. NECK: Supple. No carotid bruit or thyromegaly. CHEST: Clear to auscultation. HEART: S1 and S2 regular. ABDOMEN: Soft. EXTREMITIES: Clubbing and cyanosis negative. LABORATORY DATA: Blood workup: WBC 6.9, hemoglobin 7.9, hematocrit 27.1 and platelet count 189. Chemistry shows sodium 138, potassium 4.7, chloride 102, carbon dioxide, anion gap of 15, BUN 70 and creatinine 4.3 today. Calcium 6.8, triglyceride 227, cholesterol 202, LDL 111, HDL 60, TSH 0.37. I's and O's 1140 mL positive balance. Total output 700 mL. IMPRESSION: A 57-year-old tobacco abuse, history of breast carcinoma, history of asthma, history of chronic obstructive pulmonary disease, history of anxiety disorder, history of chronic back pain on narcotic and type II diabetes, history of recurrent urinary tract infection, chronic kidney disease, pneumonia, admitted with shortness of breath, large pleural effusion. The patient had recent echo on 03/09/2018 on admission that revealed a normal left ventricular size, normal left ventricular function, normal mitral valve structure, mild tricuspid regurge, ejection fraction calculated 63%, right ventricular systolic pressure of 34 dated 03/10/2018. Prior to that, echo on 07/28/2017 also ejection fraction 55% to 60%, worsening renal insufficiency, uncontrolled hypertension. RECOMMENDATION: I recommended to give 40 mg of Lasix, stat chest x-ray reviewed. X-ray shows mild congestion and she had a bronchogram, right-sided looks like of pleural effusion. Continue Lasix 40 once a day. Avoid nephrotoxic medication. We will put hydralazine 50 b.i.d. and monitor the heart rate and blood pressure. Overall, the patient's condition is critical, long-term prognosis guarded. The patient may need dialysis soon. Continue antibiotic. We will follow with you. Thank you Dr. Sosa for provide us opportunity in taking care of the patient, Yazmin Granado. Put hydralazine 50 b.i.d. and put 10 mg p.r.n. every 6 for systolic more than 70. We will get uric acid level also for tomorrow. Lisa Hernandez MD [facility]AD[facility]
[2018-04-03] MEDS: Insulin Detemir 100 units/ml Vial (Levemir) SC SCH (21:50)
[2018-04-04] MEDS: Albuterol-Ipratrop 3 mg / 0.5 (3 ml) UD IH SCH ×4 (03:34→20:47)
[2018-04-04 07:28] LABS: ALB/GLOB RATIO 1.3 (1.1-1.8); ALBUMIN 3.5 g/dL (3.0-4.8); CALCIUM 7.6 mg/dL (8.4-10.5); URIC ACID 9.3 mg/dL (2.5-6.2)
[2018-04-04] MEDS: Acetylcysteine 20% Inhal Soln (4ml) IH SCH ×2 (08:00→20:46)
[2018-04-04] MEDS: Budesonide 0.5 mg/2 ml Inhal Susp UD IH SCH ×2 (08:00→20:50)
[2018-04-04] MEDS: Insulin Reg-MEDIUM-Coverage SC SCH ×3 (08:03→21:41)
[2018-04-04] MEDS: Insulin Lispro 1 UNITS/0.01 ML SC SCH ×2 (08:03→13:20)
[2018-04-04] MEDS: Multivitamin Vitamin B Complex (Nephro-Vite) Tab PO SCH (08:08)
[2018-04-04 08:48] LABS: ARTERIAL BLOOD GAS PH 7.13 (7.35-7.45)
[2018-04-04 08:49] LABS: ARTERIAL BLOOD GAS PCO2 76 mm/Hg (35-45)
[2018-04-04 08:50] LABS: ARTERIAL BLOOD GAS HCO3 25.3 mmol/L (21-28)
[2018-04-04 08:51] LABS: ARTERIAL BLOOD GAS HEMOGLOBIN 10.8 g/dL (11.7-17.4)
[2018-04-04 08:52] LABS: ARTERIAL BLOOD GAS O2 CONTENT 14.5 ML/dl (15-23)
[2018-04-04 08:53] LABS: ARTERIAL BLOOD GAS O2 CAPACITY 14.9 mL/dl (16-24); ARTERIAL BLOOD GAS TCO2 27.6 mmol.L (22-28)
[2018-04-04 08:54] LABS: ARTERIAL BLOOD GAS O2 SAT 97.5 % (95-98)
[2018-04-04 08:56] LABS: ARTERIAL BLOOD GAS FIO2 40 %
[2018-04-04] MEDS: Oxycodone/Acetaminophen 5/325 mg Tab PO PRN ×2 (09:26→18:09)
[2018-04-04] MEDS: Enoxaparin 30 mg Syringe SC SCH (09:28)
[2018-04-04] MEDS: Magnesium Oxide 400 mg Tab UD PO SCH (09:30)
[2018-04-04] MEDS: MEROPENEM 500 MG in NS 500 MG/50 ML BAG IVPB SCH ×2 (09:31→21:43)
[2018-04-04 11:17] LABS: ALBUMIN (PEP) 3.2 g/dL (3.8-4.8); ALPHA-1-GLOBULIN (PEP) 0.5 g/dL (0.2-0.3)
--- NOTE | 2018-04-04 12:41 | PN ---
DATE: 04/04/2018 REASON FOR CONSULTATION AND FOLLOWUP: Cardiac evaluation, congestive heart failure, exacerbation of COPD, respiratory distress, large pleural effusion, acute kidney injury and chronic renal insufficiency. SUBJECTIVE: The patient denies any chest pain, shortness of breath or any palpitation. Feels okay. Asks for pain medication for the back pain. OBJECTIVE: Lying flat on the bed without any distress. PHYSICAL EXAMINATION: VITAL SIGNS: Temperature afebrile, heart rate 97, blood pressure 131/74. HEENT: PERRLA, extraocular muscles intact. NECK: Supple. No carotid bruits or thyromegaly. CHEST: Clear to auscultation. HEART: S1 and S2, regular. ABDOMEN: Soft. EXTREMITIES: Clubbing and cyanosis negative. LABORATORY DATA: Blood workup as follows: WBC 6.9, hemoglobin 7.9, hematocrit 27.1 as of yesterday, platelet count 189. Chemistries showed sodium 139, potassium 4.3, chloride 101, carbon dioxide 25, anion gap of 18, BUN 19, creatinine 3.8. BNP 14,200. Chest x-ray, interval improved aeration of the right lung, residual atelectasis pneumonia in the lower lobe and small right pleural effusion. No pneumothorax. IMPRESSION: A 57-year-old female, active tobacco abuser, history of breast cancer, history of asthma, history of chronic obstructive pulmonary disease, history of lymphatic disorder, history of chronic panic attack, history of chronic back pain, on narcotics, type 2 diabetes, history of recurrent urinary tract infections, chronic kidney disease, admitted with pneumonia, shortness of breath, large pleural effusion. Recent echo dated 03/09/2018 on admission revealed normal ventricular size, normal left ventricular function, normal mitral valve structure, mild tricuspid regurgitation, ejection fraction 50% to 63%, right ventricular systolic pressure 34 dated 03/10/2018, uncontrolled hypertension, history of chronic kidney disease, went into acute kidney injury, now stable and creatinine is trending down (improving renal function). RECOMMENDATION: Continue IV Lasix. Chest x-ray, reviewed, improving. Still the patient has effusion. Continue hydralazine, avoid nephrotoxic medication, hydralazine increased to 50 b.i.d. in addition to p.r.n. Continue treatment for COPD. Lasix 40 IV daily. Follow up lab. Continue DVT prophylaxis. Continue metoprolol. Compliance with medication and complete cessation of smoking recommended. Follow up renal function closely, the patient is being followed by senior project manager, Dr. Chatman. Thank you Dr. Sosa, for providing us the opportunity of taking care of your patient, Vannesa Arce. Lisa Hernandez MD
--- NOTE | 2018-04-04 13:14 | PN ---
DATE: 04/04/2018 SUBJECTIVE: The patient is still in the unit, still in the oxygen high flow. Her breathing seems better, but her kidney is getting worse, clinically unstable. She is improving, but still unstable. PHYSICAL EXAMINATION: On 04/03/2018 is as follows: VITAL SIGNS: Temperature 98, heart rate 103, blood pressure is 156/52, respirations 25, saturating 88%. HEENT: Head and neck normal. No JVD. CHEST: Diminished breath sounds bilaterally, right more than left. ABDOMEN: Soft and nontender. EXTREMITIES: No edema. NEUROLOGIC: Normal. LABORATORY STUDY: White count 6.9, hemoglobin 13.9, hematocrit 27.1, and platelets 189. Chemistry: Sodium 139, potassium 4.6, chloride 101, bicarb 25, BUN 9, and creatinine 3.8. Blood sugar is still elevated 217, uric acid 9.3, phosphorus high 7.6, magnesium is 2. The patient also had proBNP, which is 14,000 and also total protein 12.7, which is low. ASSESSMENT AND PLAN: 1. Acute chronic obstructive pulmonary disease exacerbation, right pleural effusion, pneumonia, congestive heart failure. pulmonary problem putting the patient in significant respiratory problems, especially with her severe chronic obstructive pulmonary disease in oxygen-dependent chronic obstructive pulmonary disease patient. We will continue current therapy, continue inhaled bronchodilators, Mucomyst intravenous, antibiotics, and high-flow oxygen, currently on doxycycline intravenous every 12 hours, Merrem 1 g intravenous every 12 hours. We will continue also Daliresp. She is stable, but still critical. 2. Acute renal failure on top of chronic worsening kidney failure with hyperphosphatemia and getting high creatinine with elevated potassium. We will continue to manage this patient as per the ground worker. 3. Insulin-dependent diabetes. We will add Lantus, increase her insulin before meals, and will see how the patient does. We will monitor her sugar. Continue current insulin regimen. 4. The patient also had history of breast carcinoma. At this time, we are not going to do much about it more critical pulmonary and renal problems, probably that is most important at this time. No radiation therapy by Radiation Oncology at last admission, had palliative therapy, and patient refused treatment in the past chemo because of the severity of side effects and she is stable on that part. 5. Gastritis, anemia. The patient on iron pill, will be seen by Gastroenterology and Oncology about her anemia. At this time, we will monitor it and we will give iron and we will continue to monitor. 6. Hypertension. She is stable with the current blood pressure. She is on hydralazine 50 mg b.i.d. plus 10 mg four times a day p.r.n. She is getting Lasix 40 intravenous daily for her congestive heart failure and also she is getting Norvasc 5 mg. 7. Chronic anxiety, depression. Continue Xanax, follow up with the psychiatrist about that. 8. Chronic osteoarthritis, her back, her knees. She is on oxycodone 5 mg p.r.n. Continue current medications, follow up clinically. Continue gastrointestinal and deep vein thrombosis prophylaxis. Sloan Sosa MD
[2018-04-04] MEDS: MethylPREDNISolone 40 mg Vial IVP SCH ×3 (13:21→21:00)
--- NOTE | 2018-04-04 15:16 | CP.PCM.PN ---
Subjective - Date & Time of Evaluation Date of Evaluation: 04/04/18 Time of Evaluation: 15:15 - Subjective Subjective: Nephrology Consultation Note: Assessment: stable DAHLIA likely ATN, non-oliguric acute on chronc respi acidosis with respi failure with renal compensation rt large pleural effusion with chest wall mass ? malignant (hx of breast CA) Diabetic chronic Kidney Disease (E11.22) Hypertensive Chronic Kidney Disease (I12.9) Chronic Kidney Disease (N18.3) Stage 3 with 1200 mg proteinuria and 400 mg albuminuria (R80.9) likely due to DM/HTN Anemia (D64.9) hyperphosphatemia COPD/asthma, active smoker, breast cancer s/p surgery 2 years ago active smoker Plan No acute need for renal replacement therapy at this time but may need soon and will need close follow up. overall poor prognosis, recommend palliative care Hypertension control with meds as ordered. Maintain hemodynamics stable. Avoid hypotension. Patient not on ACEI/ARB due to low BP and hyperkalemia. started on lopressor by cardiology. added norvasc Monitor Input/Output, daily weights and renal function with basic metabolic panel low K diet low Phos diet, added phos binders will defer use of [place] in view of her recent breast malignancy with concerns for mets started iron, MVI and weekly Vit D continue with diuretics supplement lytes as needed seen by cardio heme/onc and pulmonary d/c morfin Dose meds/antibiotics for reduced GFR. Avoid fleets enema/magnesium based lax atives. Avoid nephrotoxins/NSAIDs/ iodinated contrast (unless needed emergently) Glycemic control. pt need to stop smoking Further work up/management as per primary team Thanks for allowing me to participate in care of your patient. Will follow patient with you. Please call if any Qs. had d/w team Dr Marco Antonio Chatman Office: [phone] Chief Complaint; SOB Reason for consult: CKD 3 HPI: Pt is a 57 F with hx of diabetes Mellitus ( years), hypertension (years) COPD/asthma, active smoker, breast cancer s/p surgery 2 years ago but didn't complete treatment now with mets, anemia, CKD stage 3 with baseline cr 1.8 mg/dL admitted with acute respi distress hypercapnic respi failure and intubated, now seen for CKD management Denies OTC/herbal meds or NSAIDs No recent iodinated contrast exposure. Noted obvious episodes of low BP. ROS: pt is a poor historian and overall hx is limited from her. not much interactive Physical Examination: General Appearance: better appearing. on o2 Vitals reviewed and noted as below Head; Atraumatic, normocephalic ENT: no ulcers no thrush. Tongue is midline. Oropharynx: no rash or ulcers. she is hard of hearing EYES: Pupils are equal, round and reactive to light accommodation. Eye muscles and extraocular movement intact. Sclera is anicteric. has periorbital puffiness Neck; supple no lymphadenopathy, no thyromegaly or bruit Lungs: Improved respiratory rate/effort. Breath sounds reduced at base with b/l wheezing Heart: normal rate. s1s2 normal. No rub or gallop. Extremities: 2+ edema. No varicose veins Neurological: Patient is alert, awake and oriented to person, place and time. No focal deficit. Strength bilateral appropriate and equal Skin: Warm and dry. Normal turgor. No rash. Palpitation: Normal elasticity for age Abdomen: Abdomen is soft. Bowel sounds +. There is no abdominal tenderness, no guarding/rigidity no organomegaly Psych: lack insight and flat affect/mood MSK: no joint tenderness or swelling. Digits and nails normal, no deformity : kidney or bladder not palpable Labs/imaging reviewed. Past medical history, past surgical history, family history, social history, allergy reviewed and noted as below Family hx: no hx of CKD. Rest non-contributory renal imaging: b/l cysts echo normal LVEF TSAt 26% ferritin 45 Serum FLC assay WNL ABDIRIZAK neg PTH 154 Vit D 17 Objective - Vital Signs/Intake and Output Vital Signs (last 24 hours): Temp Pulse Resp BP Pulse Ox 98.2 F 95 H 14 152/70 H 98 04/04/18 04:00 04/04/18 09:30 04/04/18 06:20 04/04/18 09:30 04/04/18 06:20 Intake and Output: 04/04/18 04/04/18 06:59 18:59 Intake Total 150 Output Total 950 Balance -800 - Medications Medications: Current Medications Acetylcysteine (Acetylcysteine 20%) 4 ml IH BIDRESP [facility] Last Admin: 04/04/18 08:00 Dose: 4 ml Albuterol/Ipratropium (Duoneb 3 Mg/0.5 Mg (3 Ml) Ud) 3 ml IH [id number] [facility] Last Admin: 04/04/18 13:04 Dose: 3 ml Albuterol/Ipratropium (Duoneb 3 Mg/0.5 Mg (3 Ml) Ud) 3 ml IH Q2H PRN PRN Reason: Shortness of Breath Last Admin: 04/02/18 22:00 Dose: 3 ml Alprazolam (Xanax) 0.5 mg PO TID PRN; Protocol PRN Reason: Anxiety Last Admin: 04/04/18 02:27 Dose: 0.5 mg Amlodipine Besylate (Norvasc) 5 mg PO DAILY [facility] Last Admin: 04/04/18 09:28 Dose: 5 mg Aspirin (Ecotrin) 81 mg PO DAILY [facility] Last Admin: 04/04/18 09:30 Dose: 81 mg Atorvastatin Calcium (Lipitor) 10 mg PO HS [facility] Last Admin: 04/03/18 21:27 Dose: 10 mg Budesonide (Pulmicort Respules) 0.5 mg IH [id number] [facility] Last Admin: 04/04/18 08:00 Dose: 0.5 mg Calcium Acetate (Phoslo) 2,001 mg PO WM [facility] Last Admin: 04/04/18 13:21 Dose: 2,001 mg Enoxaparin Sodium (Lovenox) 30 mg SC DAILY [facility]; Protocol Last Admin: 04/04/18 09:28 Dose: 30 mg Ergocalciferol (Drisdol 50,000 Intl Units Cap) 1 cap PO Q7D [facility] Last Admin: 04/01/18 09:45 Dose: 1 cap Famotidine (Pepcid) 20 mg PO DAILY [facility] Last Admin: 04/04/18 09:30 Dose: 20 mg Ferrous Gluconate (Fergon) 324 mg PO TID [facility] Last Admin: 04/04/18 13:22 Dose: 324 mg Furosemide (Lasix) 40 mg IV DAILY [facility] Last Admin: 04/04/18 09:27 Dose: 40 mg Hydralazine HCl (Apresoline) 50 mg PO BID [facility] Last Admin: 04/04/18 09:30 Dose: 50 mg Hydralazine HCl (Apresoline) 10 mg PO QID PRN PRN Reason: for sbp>170 Last Admin: 04/04/18 02:26 Dose: 10 mg Meropenem/Sodium Chloride (Merrem Iv 500 Mg/Ns 50 Ml) 500 mg in 50 mls @ 100 mls/hr IVPB Q12 [facility]; Protocol Stop: 04/09/18 16:40 Last Admin: 04/04/18 09:31 Dose: 100 mls/hr Doxycycline Hyclate 100 mg/ (Sodium Chloride) 100 mls @ 100 mls/hr IVPB Q12 [facility]; Protocol Stop: 04/09/18 22:01 Last Admin: 04/04/18 09:30 Dose: 100 mls/hr Insulin Detemir (Levemir) 15 unit SC [facility] Last Admin: 04/03/18 21:50 Dose: Not Given Insulin Human Lispro (Humalog) 5 units SC [facility] Last Admin: 04/04/18 13:20 Dose: 5 u Insulin Human Regular (Humulin R Med) 0 units SC [facility]; Protocol Last Admin: 04/04/18 13:19 Dose: 3 unit Lorazepam (Ativan) 0.5 mg PO [facility]; Protocol Last Admin: 04/03/18 21:43 Dose: 0.5 mg Magnesium Oxide (Mag-Ox) 400 mg PO BID [facility] Last Admin: 04/04/18 09:30 Dose: 400 mg Methylprednisolone (Solu-Medrol) 40 mg IVP Q8H [facility] Last Admin: 04/04/18 13:21 Dose: 40 mg Metoprolol Tartrate (Lopressor) 25 mg PO BID [facility] Last Admin: 04/04/18 09:29 Dose: 25 mg Montelukast Sodium (Singulair) 10 mg PO [facility] Last Admin: 04/03/18 21:28 Dose: 10 mg Nicotine (Nicoderm Cq) 1 patch TD DAILY [facility] Last Admin: 04/04/18 09:29 Dose: 1 patch Oxycodone/Acetaminophen (Percocet 5/325 Mg Tab) 1 tab PO Q6H PRN PRN Reason: Pain, moderate (4-7) Stop: 04/07/18 09:17 Last Admin: 04/04/18 09:26 Dose: 1 tab Pantoprazole Sodium (Protonix Ec Tab) 40 mg PO 0600 [facility] Last Admin: 04/03/18 07:56 Dose: 40 mg Roflumilast (Daliresp) 250 mcg PO DAILY [facility] Last Admin: 04/04/18 09:29 Dose: 250 mcg Vitamin B Complex/Vit C/Folic Acid (Nephro-Enrrique) 1 tab PO 0800 [facility] Last Admin: 04/04/18 08:08 Dose: 1 tab - Labs Labs: 04/03/18 06:20 04/04/18 06:30
--- NOTE | 2018-04-04 17:06 | PN ---
DATE: 04/04/2018 PULMONARY PROGRESS NOTE REFERRING PHYSICIAN: Sloan Sosa MD SUBJECTIVE: The patient is sitting up at bedside, eating lunch. No acute distress. No overnight events reported. The patient reports she still has shortness of breath and cough, questioning when she will be discharged home. No headache, rhinitis, chest pain, abdominal pain, nausea, vomiting, diarrhea, or leg pain reported. OBJECTIVE: GENERAL: No acute distress. VITAL SIGNS: Blood pressure 152/70, pulse 97, oxygen saturation 98%, and temperature 98.2. HEENT: Moist mucous membranes. Some facial edema. NECK: Supple. No JVD. LUNGS: Rhonchi bilaterally. Diminished breath sounds in the right. CARDIOVASCULAR: S1 and S2 audible. ABDOMEN: Soft and nontender. No distension. No organomegaly. EXTREMITIES: Bilateral upper extremity and lower extremity edema. NEUROLOGIC: Awake, alert, verbal. Follows commands MEDICATIONS: Reviewed. Mucomyst 4 mL inhalation twice a day, DuoNeb 3 mL inhalation every 2 hours p.r.n., DuoNeb 3 mL inhalation every 6 hours, Xanax 0.5 mg 3 times a day p.r.n., Norvasc 5 mg daily, aspirin 81 mg daily, Lipitor 10 mg at bedtime, Pulmicort 0.5 mg every 12 hours, calcium acetate 2001 mg Wednesdays and Mondays, doxycycline 100 mg every 12 hours, Lovenox 30 mg daily, ergocalciferol 1 cap every 7 days, Pepcid 20 mg daily, ferrous gluconate 324 mg 3 times a day, Lasix 40 mg IV daily, hydralazine 10 mg 4 times a day p.r.n., hydralazine 15 mg twice a day, Levemir 15 units subcutaneously at bedtime, Humalog 5 units subcutaneously a.c., Humulin R sliding scale a.c. and at bedtime, Ativan 0.5 mg at bedtime, magnesium oxide 400 mg twice a day, meropenem 500 mg every 12 hours, Solu-Medrol 40 mg every 8 hours, metoprolol tartrate 25 mg twice a day, Singulair 10 mg at bedtime, nicotine patch transdermally daily, Percocet 5/325 mg daily every 6 hours p.r.n., Protonix 40 mg daily, Daliresp 250 mcg daily, and Nephro-Enrrique 1 tab daily. LABORATORY DATA: Reviewed. WBC 6.9, RBC 2.81, hemoglobin 7.9, hematocrit 27.1, and platelets 189. PCO2 of 76, pO2 of 80, HCO3 of 25.3. ABG, pH 7.13. Sodium 139, potassium 4.3, chloride 101, carbon dioxide 25, anion gap 18, BUN 90, creatinine 3.8, GFR 12, POC glucose 233, random glucose 217, uric acid 9.3, calcium 7.6, phosphorous 3.0, magnesium 2.0, total bilirubin 0.4. AST 31, ALT 57, alkaline phosphatase 71, proBNP 14,200, total protein 6.2, albumin 3.5, globulin 2.7, albumin-globulin ratio 1.3, and procalcitonin 23.92. IMPRESSION AND PLAN: Respiratory failure, was on ventilator, presently extubated; chronic obstructive lung disease; history of breast cancer; community-acquired pneumonia; anemia; diabetes; recurrent urinary tract infection, noncompliance with treatment in the past; active smoker; chronic anxiety; chronic back pain; anemia; cannot rule out metastatic disease to right lung. The patient has refused treatment for breast cancer in the past. Continue inhaled bronchodilators, leukotriene inhibitors, steroids, antibiotic therapy, gastric prophylaxis, fall precaution, deep venous thrombosis prophylaxis. Continue pulmonary toileting, avoid nephrotoxic drugs, Nephrology followup. We will order chest x-ray, ABG in the morning. Continue to encourage BiPAP use, head of bed elevated at 45 degrees. Continue chest physiotherapy. Continue incentive spirometry use. Critical care time spent more than 35 minutes. Case discussed with nursing staff. The patient was seen and examined with Dr. Rucker. Discussed assessment and plan as described above. Thank you for this consult. We will follow with you. Didier Dennis APN Lisa Rucker MD SAADIA
--- NOTE | 2018-04-04 18:01 | CP.PCM.PN ---
Subjective - Date & Time of Evaluation Date of Evaluation: 04/04/18 Time of Evaluation: 10:10 - Subjective Subjective: Patient is still short of breath at rest, no fevers, no diarrhea, no nausea. Objective - Vital Signs/Intake and Output Vital Signs (last 24 hours): Temp Pulse Resp BP Pulse Ox 98.4 F 100 H 24 168/68 H 89 L 04/03/18 06:40 04/03/18 10:02 04/03/18 07:12 04/03/18 10:02 04/03/18 06:40 Intake and Output: 04/03/18 04/03/18 06:59 18:59 Intake Total 1840 Output Total 700 Balance 1140 - Medications Medications: Current Medications Acetylcysteine (Acetylcysteine 20%) 4 ml IH BIDRESP [facility] Last Admin: 04/03/18 07:09 Dose: 4 ml Albuterol/Ipratropium (Duoneb 3 Mg/0.5 Mg (3 Ml) Ud) 3 ml IH [id number] [facility] Last Admin: 04/03/18 07:09 Dose: 3 ml Albuterol/Ipratropium (Duoneb 3 Mg/0.5 Mg (3 Ml) Ud) 3 ml IH Q2H PRN PRN Reason: Shortness of Breath Last Admin: 04/02/18 22:00 Dose: 3 ml Alprazolam (Xanax) 0.5 mg PO TID PRN; Protocol PRN Reason: Anxiety Last Admin: 04/03/18 02:55 Dose: 0.5 mg Amlodipine Besylate (Norvasc) 5 mg PO DAILY [facility] Last Admin: 04/03/18 10:02 Dose: 5 mg Aspirin (Ecotrin) 81 mg PO DAILY [facility] Last Admin: 04/03/18 09:52 Dose: 81 mg Atorvastatin Calcium (Lipitor) 10 mg PO HS [facility] Last Admin: 04/02/18 21:08 Dose: 10 mg Budesonide (Pulmicort Respules) 0.5 mg IH [id number] [facility] Last Admin: 04/03/18 07:09 Dose: 0.5 mg Calcium Acetate (Phoslo) 2,001 mg PO WM [facility] Last Admin: 04/03/18 07:54 Dose: 2,001 mg Enoxaparin Sodium (Lovenox) 30 mg SC DAILY [facility]; Protocol Last Admin: 04/03/18 09:51 Dose: 30 mg Ergocalciferol (Drisdol 50,000 Intl Units Cap) 1 cap PO Q7D [facility] Last Admin: 04/01/18 09:45 Dose: 1 cap Famotidine (Pepcid) 20 mg PO DAILY [facility] Last Admin: 04/03/18 09:53 Dose: 20 mg Ferrous Gluconate (Fergon) 324 mg PO TID [facility] Last Admin: 04/03/18 09:52 Dose: 324 mg Furosemide (Lasix) 40 mg IV DAILY [facility] Hydralazine HCl (Apresoline) 50 mg PO BID [facility] Hydralazine HCl (Apresoline) 10 mg PO QID PRN PRN Reason: for sbp>170 Meropenem/Sodium Chloride (Merrem Iv 500 Mg/Ns 50 Ml) 500 mg in 50 mls @ 100 mls/hr IVPB Q12 [facility]; Protocol Stop: 04/09/18 16:40 Last Admin: 04/03/18 09:46 Dose: 100 mls/hr Doxycycline Hyclate 100 mg/ (Sodium Chloride) 100 mls @ 100 mls/hr IVPB Q12 [facility]; Protocol Stop: 04/09/18 22:01 Last Admin: 04/03/18 09:54 Dose: 100 mls/hr Insulin Detemir (Levemir) 15 unit SC HS [facility] Insulin Human Lispro (Humalog) 5 units SC AC [facility] Insulin Human Regular (Humulin R Med) 0 units SC ACHS [facility]; Protocol Last Admin: 04/03/18 07:56 Dose: 7 unit Lorazepam (Ativan) 0.5 mg PO HS [facility]; Protocol Last Admin: 04/02/18 21:08 Dose: 0.5 mg Magnesium Oxide (Mag-Ox) 400 mg PO BID [facility] Last Admin: 04/03/18 09:52 Dose: 400 mg Methylprednisolone (Solu-Medrol) 20 mg IVP Q12H [facility] Last Admin: 04/03/18 10:03 Dose: 20 mg Metoprolol Tartrate (Lopressor) 25 mg PO BID [facility] Last Admin: 04/03/18 09:53 Dose: 25 mg Montelukast Sodium (Singulair) 10 mg PO HS [facility] Last Admin: 04/02/18 21:08 Dose: 10 mg Nicotine (Nicoderm Cq) 1 patch TD DAILY [facility] Last Admin: 04/03/18 09:53 Dose: 1 patch Oxycodone/Acetaminophen (Percocet 5/325 Mg Tab) 1 tab PO Q6H PRN PRN Reason: Pain, moderate (4-7) Stop: 04/03/18 15:09 Last Admin: 04/03/18 07:54 Dose: 1 tab Pantoprazole Sodium (Protonix Ec Tab) 40 mg PO 0600 [facility] Last Admin: 04/03/18 07:56 Dose: 40 mg Roflumilast (Daliresp) 250 mcg PO DAILY [facility] Last Admin: 04/03/18 09:52 Dose: 250 mcg Vitamin B Complex/Vit C/Folic Acid (Nephro-Enrrique) 1 tab PO 0800 [facility] Last Admin: 04/03/18 08:05 Dose: 1 tab - Labs Labs: 04/03/18 06:20 04/03/18 06:20 - Constitutional Appears: Chronically Ill - Head Exam Head Exam: NORMAL INSPECTION - ENT Exam ENT Exam: Mucous Membranes Moist - Neck Exam Neck Exam: absent: Meningismus - Respiratory Exam Respiratory Exam: Decreased Breath Sounds - Cardiovascular Exam Cardiovascular Exam: +S1, +S2 - GI/Abdominal Exam GI & Abdominal Exam: Soft. absent: Tenderness Assessment and Plan - Assessment and Plan (Free Text) Plan: Assessment severe sepsis with hypercapneic respiratory failure S/P VDRF due to congestive heart failure R/O right sided HCAP history of urinary tract infection with Proteus mirabilis history of pneumonia history of Carmen esophagitis End-stage COPD in a patient with a long history of smoking unresectable breast cancer DM HTN history of spine surgery history of bladder surgery history of UTI Plan continue Merrem and Doxycycline (Day 5) and will target up to 7 days of therapy blood cx are negative and nasal MRSA screen is negative PCT is normal will continue monitor clinically
--- NOTE | 2018-04-04 21:34 | PN ---
DATE: 04/04/2018 SUBJECTIVE: The patient is still in ICU. She still have respiratory distress, still have buffy face, and she still have short of breath, sitting on a chair, and able to talk better. The patient did not complain, and there is no new complaint here. PHYSICAL EXAMINATION: VITAL SIGNS: Temperature is 98, heart rate is 95, blood pressure 152/70, respiratory rate 14, and saturating 98%. HEAD AND NECK: Normal, but mild puffy face. CHEST: Diminished breath sounds, right more than the left. There is mild expiratory wheeze. CARDIAC: First sound and second sound normal. ABDOMEN: Soft, obese, nontender. EXTREMITIES: No edema. NEUROLOGIC: Normal. LABORATORY STUDIES: Noted for chemistry today and sodium 139, potassium 4.3, chloride 101, bicarb 25, BUN 90, creatinine 3.8. Blood sugar running in the 230-240. The patient had also uric acid 9.3, calcium 7.6, and phosphorus 8. Her ALT is 57, alkaline phos normal, AST normal, and the patient has proBNP 14,200. Albumin 3.5. The patient also, chart reviewed, had an echocardiogram re-ordered here and shows good LV function and no pulmonary hypertension. IMPRESSION AND PLAN: 1. Acute chronic obstructive pulmonary disease exacerbations associated with sepsis secondary to pneumonia. The patient seen by sharepoint designer developer, Dr. Rucker, the inside sales lead on the floor and also by Infectious Disease, Dr. Malcolm. The repeat chest x-ray shows improved aeration on the right upper lobe compared to multiple serial studies. Plan; we will continue current medications. Continue IV Merrem and doxycycline. The patient also has been getting inhaled bronchodilators, Mucomyst, and also IV bronchodilators, steroids 40 IV every 8 hours. 2. Acute worsening of chronic renal failure, probably part of it due to her chronic kidney disease due to diabetic nephropathy and part of it is prerenal. We may consider adjusting Lasix dosage. We will discuss with inside sales lead. The patient had good left ventricular functions. 3. Insulin-dependent diabetes. She is on steroids plus she is eating good. We increased her insulin before meals to 8 units before meals. Continue Lantus plus insulin coverage. 4. Chronic anxiety. She is on Xanax, Ativan p.r.n. 4. Also, she has chronic osteoarthritis of the spine, and we will continue Percocet 5 mg every 6 hours as needed. Continue current therapy. 5. Continue gastrointestinal and deep venous thrombosis prophylaxis. 6. For now, hypertension seems stable now. She is on hydralazine 50 mg b.i.d. plus metoprolol 25 b.i.d. 7. The patient is also getting Lipitor for hypercholesterolemia. She is stable. Continue aspirin and continue current medications, Daliresp. Sloan Sosa MD
[2018-04-04] MEDS: Insulin Detemir 100 units/ml Vial (Levemir) SC SCH (21:42)
[2018-04-05] MEDS: Oxycodone/Acetaminophen 5/325 mg Tab PO PRN ×2 (02:34→15:17)
[2018-04-05] MEDS: Albuterol-Ipratrop 3 mg / 0.5 (3 ml) UD IH SCH ×4 (02:59→20:19)
[2018-04-05] MEDS: Pantoprazole 40 mg EC Tab PO SCH (05:06)
[2018-04-05] MEDS: MethylPREDNISolone 40 mg Vial IVP SCH ×3 (05:07→21:21)
[2018-04-05 06:52] LABS: CALCIUM 8.3 mg/dL (8.4-10.5)
[2018-04-05 06:56] LABS: ARTERIAL BLOOD GAS HCO3 25.9 mmol/L (21-28); ARTERIAL BLOOD GAS HEMOGLOBIN 7.3 g/dL (11.7-17.4); ARTERIAL BLOOD GAS O2 CAPACITY 10.1 mL/dl (16-24); ARTERIAL BLOOD GAS O2 SAT 98.7 % (95-98); ARTERIAL BLOOD GAS PCO2 71 mm/Hg (35-45); ARTERIAL BLOOD GAS PH 7.17 (7.35-7.45); ARTERIAL BLOOD GAS TCO2 28.1 mmol.L (22-28)
[2018-04-05 06:58] LABS: GRAN # 3.14 (1.4-6.5); GRAN % 92.1 % (50.0-68.0); HEMOGLOBIN 8.2 g/dL (12.0-16.0); LYMPH # 0.2 (1.2-3.4); LYMPH % 4.7 % (22.0-35.0); MEAN CELL VOLUME 95.3 fl (80.0-105.0); MEAN CORPUSCULAR HEMOGLOBIN 27.8 pg (25.0-35.0); MEAN CORPUSCULAR HGB CONC 29.2 g/dl (31.0-37.0); MEAN PLATELET VOLUME 10.7 fl (7.0-11.0); MONO # 0.1 (0.1-0.6); MONO % 3.2 % (1.0-6.0); PLATELET COUNT 230 10^3/uL (120.0-450.0); RBC 2.95 10^6/uL (3.5-6.1); WHITE BLOOD COUNT 3.4 10^3/uL (4.5-11.0)
[2018-04-05] MEDS: Budesonide 0.5 mg/2 ml Inhal Susp UD IH SCH ×2 (07:30→20:19)
[2018-04-05] MEDS: Acetylcysteine 20% Inhal Soln (4ml) IH SCH ×2 (07:30→20:19)
[2018-04-05] MEDS: Insulin Reg-MEDIUM-Coverage SC SCH ×4 (08:12→21:37)
[2018-04-05] MEDS: Insulin Lispro 1 UNITS/0.01 ML SC SCH ×3 (08:12→17:42)
[2018-04-05] MEDS: Multivitamin Vitamin B Complex (Nephro-Vite) Tab PO SCH (08:13)
--- NOTE | 2018-04-05 08:22 | CP.PCM.PN ---
Subjective - Date & Time of Evaluation Date of Evaluation: 04/05/18 Time of Evaluation: 08:17 - Subjective Subjective: PGY-2 heme/onc progress note No acute events noted overnight. Patient with tangential thought process although is AAOx3. Appeared comfortable eating breakfast. Did not offer any complaints. Denied lightheadedness, bleeding. Objective - Vital Signs/Intake and Output Vital Signs (last 24 hours): Temp Pulse Resp BP Pulse Ox 98.2 F 90 28 H 139/68 95 04/05/18 00:00 04/05/18 06:30 04/05/18 06:30 04/05/18 04:00 04/05/18 06:30 Intake and Output: 04/05/18 04/05/18 06:59 18:59 Intake Total 350 Output Total 700 Balance -350 - Medications Medications: Current Medications Acetylcysteine (Acetylcysteine 20%) 4 ml IH BIDRESP [facility] Last Admin: 04/05/18 07:30 Dose: 4 ml Albuterol/Ipratropium (Duoneb 3 Mg/0.5 Mg (3 Ml) Ud) 3 ml IH [id number] [facility] Last Admin: 04/05/18 07:30 Dose: 3 ml Albuterol/Ipratropium (Duoneb 3 Mg/0.5 Mg (3 Ml) Ud) 3 ml IH Q2H PRN PRN Reason: Shortness of Breath Last Admin: 04/02/18 22:00 Dose: 3 ml Alprazolam (Xanax) 0.5 mg PO TID PRN; Protocol PRN Reason: Anxiety Last Admin: 04/04/18 21:45 Dose: 0.5 mg Amlodipine Besylate (Norvasc) 5 mg PO DAILY [facility] Last Admin: 04/04/18 09:28 Dose: 5 mg Aspirin (Ecotrin) 81 mg PO DAILY [facility] Last Admin: 04/04/18 09:30 Dose: 81 mg Atorvastatin Calcium (Lipitor) 10 mg PO HS [facility] Last Admin: 04/04/18 21:43 Dose: 10 mg Budesonide (Pulmicort Respules) 0.5 mg IH [id number] [facility] Last Admin: 04/05/18 07:30 Dose: 0.5 mg Calcium Acetate (Phoslo) 2,001 mg PO WM [facility] Last Admin: 04/05/18 08:13 Dose: 2,001 mg Enoxaparin Sodium (Lovenox) 30 mg SC DAILY [facility]; Protocol Last Admin: 04/04/18 09:28 Dose: 30 mg Ergocalciferol (Drisdol 50,000 Intl Units Cap) 1 cap PO Q7D [facility] Last Admin: 04/01/18 09:45 Dose: 1 cap Famotidine (Pepcid) 20 mg PO DAILY [facility] Last Admin: 04/04/18 09:30 Dose: 20 mg Ferrous Gluconate (Fergon) 324 mg PO TID [facility] Last Admin: 04/04/18 18:10 Dose: 324 mg Furosemide (Lasix) 40 mg IV DAILY [facility] Last Admin: 04/04/18 09:27 Dose: 40 mg Hydralazine HCl (Apresoline) 50 mg PO BID [facility] Last Admin: 04/04/18 18:10 Dose: 50 mg Hydralazine HCl (Apresoline) 10 mg PO QID PRN PRN Reason: for sbp>170 Last Admin: 04/04/18 02:26 Dose: 10 mg Meropenem/Sodium Chloride (Merrem Iv 500 Mg/Ns 50 Ml) 500 mg in 50 mls @ 100 mls/hr IVPB Q12 [facility]; Protocol Stop: 04/09/18 16:40 Last Admin: 04/04/18 21:43 Dose: 100 mls/hr Doxycycline Hyclate 100 mg/ (Sodium Chloride) 100 mls @ 100 mls/hr IVPB Q12 [facility]; Protocol Stop: 04/09/18 22:01 Last Admin: 04/04/18 21:44 Dose: 100 mls/hr Insulin Detemir (Levemir) 15 unit SC [facility] Last Admin: 04/04/18 21:42 Dose: 15 tube Insulin Human Lispro (Humalog) 8 units SC AC [facility] Last Admin: 04/05/18 08:12 Dose: 8 units Insulin Human Regular (Humulin R Med) 0 units SC [facility]; Protocol Last Admin: 04/05/18 08:12 Dose: 3 unit Lorazepam (Ativan) 0.5 mg PO [facility]; Protocol Last Admin: 04/04/18 21:40 Dose: 0.5 mg Magnesium Oxide (Mag-Ox) 400 mg PO BID [facility] Last Admin: 04/04/18 09:30 Dose: 400 mg Methylprednisolone (Solu-Medrol) 40 mg IVP Q8H [facility] Last Admin: 04/05/18 05:07 Dose: 40 mg Metoprolol Tartrate (Lopressor) 25 mg PO BID [facility] Last Admin: 04/04/18 18:11 Dose: 25 mg Montelukast Sodium (Singulair) 10 mg PO HS [facility] Last Admin: 04/04/18 21:44 Dose: 10 mg Nicotine (Nicoderm Cq) 1 patch TD DAILY [facility] Last Admin: 04/04/18 09:29 Dose: 1 patch Oxycodone/Acetaminophen (Percocet 5/325 Mg Tab) 1 tab PO Q6H PRN PRN Reason: Pain, moderate (4-7) Stop: 04/07/18 09:17 Last Admin: 04/05/18 02:34 Dose: 1 tab Pantoprazole Sodium (Protonix Ec Tab) 40 mg PO 0600 [facility] Last Admin: 04/05/18 05:06 Dose: 40 mg Roflumilast (Daliresp) 250 mcg PO DAILY [facility] Last Admin: 04/04/18 09:29 Dose: 250 mcg Vitamin B Complex/Vit C/Folic Acid (Nephro-Enrrique) 1 tab PO 0800 [facility] Last Admin: 04/05/18 08:13 Dose: 1 tab - Labs Labs: 04/05/18 05:40 04/05/18 05:40 - Additional Findings Additional findings: - Constitutional Appears: No Acute Distress, Older Than Stated Age - Head Exam Head Exam: ATRAUMATIC, NORMAL INSPECTION - Eye Exam Eye Exam: EOMI, Normal appearance, PERRL. absent: Scleral icterus - ENT Exam ENT Exam: Mucous Membranes Moist - Respiratory Exam Respiratory Exam: Decreased Breath Sounds, Rales Additional comments: rales R>L - Cardiovascular Exam Cardiovascular Exam: Tachycardia, REGULAR RHYTHM, +S1, +S2. absent: JVD - GI/Abdominal Exam GI & Abdominal Exam: Normal Bowel Sounds, Soft. absent: Tenderness - Extremities Exam Extremities exam: Positive for: normal capillary refill, normal inspection, pedal pulses present - Neurological Exam Neurological exam: Alert, Oriented x3 - Psychiatric Exam Psychiatric exam: Anxious - Skin Skin Exam: Normal Color, Warm Assessment and Plan - Assessment and Plan (Free Text) Plan: Mrs Granado is a 57 year old female with a PMHx history of breast cancer, severe COPD, anxiety, pneumonia, pleural effusions, CKD, xanax abuse, hx of non- compliance, hx of xanax/oxycodone overose, who presented to the ED in respiratory distress while on non-rebreather. Patient was then intubated while in ED due to lack of airway protection. Hematology/oncology has been consulted for anemia. Anemia -likely anemia of chronic disease 2/2 to ckd -Hgb on admission: 9.7 -> today 8.2 * chronically anemic since 02/2017 -order for iron studies, retic count, peripheral smear, B12, folate * retic count: 1.72, B12: 476, folate: 17, iron: 44, TIBC 213, %sat: 21, ferritin: 206, MCV: 96 -has received erythropoetin in the past for anemia due to renal disease * CKD 3 and now with DAHLIA -f/u epo level, immunofixation, spep, LDH * epo 22.8 (mildly high) * ABDIRIZAK and SPEP -> selective protein loss pattern, suggestive of nephrotic syndrome -on ferrous gluconate 324mg po tid -recommend darbapoetin injections outpatient Hx L breast cancer (Dx 2016) invasive ductal carcinoma -ER+/HER2+ -Got 1 cycle of sandee-adjuvant chemo. After that, refuse chemo/surgery. -CT chest w/o contrast showed lymphadenopathy suspicious for tumor * etiology could be malignancy, infectious, inflammatory * repeat CT 1 month after current episode has resolved Case discussed with Dr Ruben Gleason
--- NOTE | 2018-04-05 08:38 | RAD ---
Date of service: 04/05/2018 HISTORY: rule out infiltrate COMPARISON: Portable chest 04/03/2018 FINDINGS: LUNGS: Right MediPort unchanged in position. Mild right pleural effusion inferior pulmonary airspace disease appear unchanged. No interval left infiltrate once again. No pneumothorax bilaterally. CARDIOVASCULAR: Calcific atherosclerotic changes are seen related to the thoracic aorta. Normal cardiac size. Mild pulmonary vascular congestion noted. OSSEOUS STRUCTURES: No significant abnormalities. VISUALIZED UPPER ABDOMEN: Normal. OTHER FINDINGS: None. IMPRESSION: No significant interval change in mild mid to inferior pulmonary airspace disease and mild right pleural effusion. Mild pulmonary vascular congestion noted as well. No pneumothorax bilaterally.
[2018-04-05 10:00] LABS: ANISOCYTOSIS SLIGHT; LYMPHOCYTE 6 % (22.0-35.0); MONOCYTE 2 % (1.0-6.0); NEUTROPHIL 92 % (50.0-70.0); PLATELET ESTIMATE NORMAL (NORMAL)
[2018-04-05] MEDS: MEROPENEM 500 MG in NS 500 MG/50 ML BAG IVPB SCH ×2 (10:38→22:57)
[2018-04-05] MEDS: Enoxaparin 30 mg Syringe SC SCH (10:39)
[2018-04-05] MEDS: Magnesium Oxide 400 mg Tab UD PO SCH ×2 (10:40→17:42)
--- NOTE | 2018-04-05 12:36 | CP.PCM.PN ---
Subjective - Date & Time of Evaluation Date of Evaluation: 04/05/18 Time of Evaluation: 10:40 - Subjective Subjective: Still with shortness of breath at rest, no fevers, still feels weak. Objective - Vital Signs/Intake and Output Vital Signs (last 24 hours): Temp Pulse Resp BP Pulse Ox 98.2 F 95 H 14 152/70 H 98 04/04/18 04:00 04/04/18 09:30 04/04/18 06:20 04/04/18 09:30 04/04/18 06:20 Intake and Output: 04/04/18 04/04/18 06:59 18:59 Intake Total 150 Output Total 950 Balance -800 - Medications Medications: Current Medications Acetylcysteine (Acetylcysteine 20%) 4 ml IH BIDRESP [facility] Last Admin: 04/04/18 08:00 Dose: 4 ml Albuterol/Ipratropium (Duoneb 3 Mg/0.5 Mg (3 Ml) Ud) 3 ml IH [id number] [facility] Last Admin: 04/04/18 13:04 Dose: 3 ml Albuterol/Ipratropium (Duoneb 3 Mg/0.5 Mg (3 Ml) Ud) 3 ml IH Q2H PRN PRN Reason: Shortness of Breath Last Admin: 04/02/18 22:00 Dose: 3 ml Alprazolam (Xanax) 0.5 mg PO TID PRN; Protocol PRN Reason: Anxiety Last Admin: 04/04/18 02:27 Dose: 0.5 mg Amlodipine Besylate (Norvasc) 5 mg PO DAILY [facility] Last Admin: 04/04/18 09:28 Dose: 5 mg Aspirin (Ecotrin) 81 mg PO DAILY [facility] Last Admin: 04/04/18 09:30 Dose: 81 mg Atorvastatin Calcium (Lipitor) 10 mg PO HS [facility] Last Admin: 04/03/18 21:27 Dose: 10 mg Budesonide (Pulmicort Respules) 0.5 mg IH [id number] [facility] Last Admin: 04/04/18 08:00 Dose: 0.5 mg Calcium Acetate (Phoslo) 2,001 mg PO WM [facility] Last Admin: 04/04/18 13:21 Dose: 2,001 mg Enoxaparin Sodium (Lovenox) 30 mg SC DAILY [facility]; Protocol Last Admin: 04/04/18 09:28 Dose: 30 mg Ergocalciferol (Drisdol 50,000 Intl Units Cap) 1 cap PO Q7D [facility] Last Admin: 04/01/18 09:45 Dose: 1 cap Famotidine (Pepcid) 20 mg PO DAILY [facility] Last Admin: 04/04/18 09:30 Dose: 20 mg Ferrous Gluconate (Fergon) 324 mg PO TID [facility] Last Admin: 04/04/18 13:22 Dose: 324 mg Furosemide (Lasix) 40 mg IV DAILY [facility] Last Admin: 04/04/18 09:27 Dose: 40 mg Hydralazine HCl (Apresoline) 50 mg PO BID [facility] Last Admin: 04/04/18 09:30 Dose: 50 mg Hydralazine HCl (Apresoline) 10 mg PO QID PRN PRN Reason: for sbp>170 Last Admin: 04/04/18 02:26 Dose: 10 mg Meropenem/Sodium Chloride (Merrem Iv 500 Mg/Ns 50 Ml) 500 mg in 50 mls @ 100 mls/hr IVPB Q12 [facility]; Protocol Stop: 04/09/18 16:40 Last Admin: 04/04/18 09:31 Dose: 100 mls/hr Doxycycline Hyclate 100 mg/ (Sodium Chloride) 100 mls @ 100 mls/hr IVPB Q12 [facility]; Protocol Stop: 04/09/18 22:01 Last Admin: 04/04/18 09:30 Dose: 100 mls/hr Insulin Detemir (Levemir) [address] [facility] Last Admin: 04/03/18 21:50 Dose: Not Given Insulin Human Lispro (Humalog) 5 units SC AC [facility] Last Admin: 04/04/18 13:20 Dose: 5 u Insulin Human Regular (Humulin R Med) 0 units SC ACHS [facility]; Protocol Last Admin: 04/04/18 13:19 Dose: 3 unit Lorazepam (Ativan) 0.5 mg PO HS [facility]; Protocol Last Admin: 04/03/18 21:43 Dose: 0.5 mg Magnesium Oxide (Mag-Ox) 400 mg PO BID [facility] Last Admin: 04/04/18 09:30 Dose: 400 mg Methylprednisolone (Solu-Medrol) 40 mg IVP Q8H [facility] Last Admin: 04/04/18 13:21 Dose: 40 mg Metoprolol Tartrate (Lopressor) 25 mg PO BID [facility] Last Admin: 04/04/18 09:29 Dose: 25 mg Montelukast Sodium (Singulair) 10 mg PO HS [facility] Last Admin: 04/03/18 21:28 Dose: 10 mg Nicotine (Nicoderm Cq) 1 patch TD DAILY [facility] Last Admin: 04/04/18 09:29 Dose: 1 patch Oxycodone/Acetaminophen (Percocet 5/325 Mg Tab) 1 tab PO Q6H PRN PRN Reason: Pain, moderate (4-7) Stop: 04/07/18 09:17 Last Admin: 04/04/18 09:26 Dose: 1 tab Pantoprazole Sodium (Protonix Ec Tab) 40 mg PO 0600 [facility] Last Admin: 04/03/18 07:56 Dose: 40 mg Roflumilast (Daliresp) 250 mcg PO DAILY [facility] Last Admin: 04/04/18 09:29 Dose: 250 mcg Vitamin B Complex/Vit C/Folic Acid (Nephro-Enrrique) 1 tab PO 0800 [facility] Last Admin: 04/04/18 08:08 Dose: 1 tab - Labs Labs: 04/03/18 06:20 04/04/18 06:30 - Constitutional Appears: No Acute Distress, Chronically Ill - Head Exam Head Exam: NORMAL INSPECTION - Neck Exam Neck Exam: absent: Meningismus - Respiratory Exam Respiratory Exam: Decreased Breath Sounds - Cardiovascular Exam Cardiovascular Exam: +S1, +S2 - GI/Abdominal Exam GI & Abdominal Exam: Soft. absent: Tenderness Assessment and Plan - Assessment and Plan (Free Text) Plan: Assessment severe sepsis with hypercapneic respiratory failure S/P VDRF due to congestive heart failure R/O right sided HCAP history of urinary tract infection with Proteus mirabilis history of pneumonia history of Carmen esophagitis End-stage COPD in a patient with a long history of smoking unresectable breast cancer DM HTN history of spine surgery history of bladder surgery history of UTI Plan continue Merrem and Doxycycline (Day 6) and will target up to 7 days of therapy blood cx are negative and nasal MRSA screen is negative PCT is normal will continue monitor clinically patient with thrombocytopenia and Heme-Onc is following
--- NOTE | 2018-04-05 14:33 | CP.PCM.PN ---
Subjective - Date & Time of Evaluation Date of Evaluation: 04/05/18 Time of Evaluation: 14:32 - Subjective Subjective: Nephrology Consultation Note: Assessment: stable DAHLIA likely ATN, non-oliguric acute on chronc respi acidosis with respi failure with renal compensation rt large pleural effusion with chest wall mass ? malignant (hx of breast CA) Diabetic chronic Kidney Disease (E11.22) Hypertensive Chronic Kidney Disease (I12.9) Chronic Kidney Disease (N18.3) Stage 3 with 1200 mg proteinuria and 400 mg albuminuria (R80.9) likely due to DM/HTN Anemia (D64.9) hyperphosphatemia COPD/asthma, active smoker, breast cancer s/p surgery 2 years ago active smoker Plan No acute need for renal replacement therapy at this time but may need soon and will need close follow up. overall poor prognosis, recommend palliative care Hypertension control with meds as ordered. Maintain hemodynamics stable. Avoid hypotension. Patient not on ACEI/ARB due to low BP and hyperkalemia. started on lopressor by cardiology. added norvasc Monitor Input/Output, daily weights and renal function with basic metabolic panel low K diet low Phos diet, added phos binders will defer use of [place] in view of her recent breast malignancy with concerns for mets started iron, MVI and weekly Vit D continue with diuretics supplement lytes as needed seen by cardio heme/onc and pulmonary Dose meds/antibiotics for reduced GFR. Avoid fleets enema/magnesium based laxatives. Avoid nephrotoxins/NSAIDs/ iodinated contrast (unless needed emergently) Glycemic control. pt need to stop smoking Further work up/management as per primary team Thanks for allowing me to participate in care of your patient. Will follow patient with you. Please call if any Qs. had d/w team Dr Marco Antonio Chatman Office: [phone] Chief Complaint; SOB Reason for consult: CKD 3 HPI: Pt is a 57 F with hx of diabetes Mellitus ( years), hypertension (years) COPD/asthma, active smoker, breast cancer s/p surgery 2 years ago but didn't complete treatment now with mets, anemia, CKD stage 3 with baseline cr 1.8 mg/dL admitted with acute respi distress hypercapnic respi failure and intubated, now seen for CKD management Denies OTC/herbal meds or NSAIDs No recent iodinated contrast exposure. Noted obvious episodes of low BP. ROS: pt is a poor historian and overall hx is limited from her. not much interactive Physical Examination: General Appearance: stable appearing. on o2 Vitals reviewed and noted as below Head; Atraumatic, normocephalic ENT: no ulcers no thrush. Tongue is midline. Oropharynx: no rash or ulcers. she is hard of hearing EYES: Pupils are equal, round and reactive to light accommodation. Eye muscles and extraocular movement intact. Sclera is anicteric. has periorbital puffiness Neck; supple no lymphadenopathy, no thyromegaly or bruit Lungs: Improved respiratory rate/effort. Breath sounds reduced at base with b/l wheezing/crackle Heart: normal rate. s1s2 normal. No rub or gallop. Extremities: 2+ edema. No varicose veins Neurological: Patient is alert, awake and oriented to person, place and time. No focal deficit. Strength bilateral appropriate and equal Skin: Warm and dry. Normal turgor. No rash. Palpitation: Normal elasticity for age Abdomen: Abdomen is soft. Bowel sounds +. There is no abdominal tenderness, no guarding/rigidity no organomegaly Psych: lack insight and flat affect/mood MSK: no joint tenderness or swelling. Digits and nails normal, no deformity : kidney or bladder not palpable Labs/imaging reviewed. Past medical history, past surgical history, family history, social history, allergy reviewed and noted as below Family hx: no hx of CKD. Rest non-contributory renal imaging: b/l cysts echo normal LVEF TSAt 26% ferritin 45 Serum FLC assay WNL ABDIRIZAK neg PTH 154 Vit D 17 Objective - Vital Signs/Intake and Output Vital Signs (last 24 hours): Temp Pulse Resp BP Pulse Ox 98.2 F 86 12 130/47 L 96 04/05/18 00:00 04/05/18 12:00 04/05/18 12:00 04/05/18 12:00 04/05/18 08:00 Intake and Output: 04/05/18 04/05/18 06:59 18:59 Intake Total 350 Output Total 700 Balance -350 - Medications Medications: Current Medications Acetylcysteine (Acetylcysteine 20%) 4 ml IH BIDRESP [facility] Last Admin: 04/05/18 07:30 Dose: 4 ml Albuterol/Ipratropium (Duoneb 3 Mg/0.5 Mg (3 Ml) Ud) 3 ml IH [id number] [facility] Last Admin: 04/05/18 12:59 Dose: 3 ml Albuterol/Ipratropium (Duoneb 3 Mg/0.5 Mg (3 Ml) Ud) 3 ml IH Q2H PRN PRN Reason: Shortness of Breath Last Admin: 04/02/18 22:00 Dose: 3 ml Alprazolam (Xanax) 0.5 mg PO TID PRN; Protocol PRN Reason: Anxiety Last Admin: 04/04/18 21:45 Dose: 0.5 mg Amlodipine Besylate (Norvasc) 5 mg PO DAILY [facility] Last Admin: 04/05/18 10:41 Dose: 5 mg Aspirin (Ecotrin) 81 mg PO DAILY [facility] Last Admin: 04/05/18 10:40 Dose: 81 mg Atorvastatin Calcium (Lipitor) 10 mg PO HS [facility] Last Admin: 04/04/18 21:43 Dose: 10 mg Budesonide (Pulmicort Respules) 0.5 mg IH [id number] [facility] Last Admin: 04/05/18 07:30 Dose: 0.5 mg Calcium Acetate (Phoslo) 2,001 mg PO WM [facility] Last Admin: 04/05/18 11:52 Dose: 2,001 mg Enoxaparin Sodium (Lovenox) 30 mg SC DAILY [facility]; Protocol Last Admin: 04/05/18 10:39 Dose: 30 mg Ergocalciferol (Drisdol 50,000 Intl Units Cap) 1 cap PO Q7D [facility] Last Admin: 04/01/18 09:45 Dose: 1 cap Famotidine (Pepcid) 20 mg PO DAILY [facility] Last Admin: 04/05/18 10:40 Dose: 20 mg Ferrous Gluconate (Fergon) 324 mg PO TID [facility] Last Admin: 04/05/18 13:01 Dose: 324 mg Furosemide (Lasix) 40 mg IV DAILY [facility] Last Admin: 04/05/18 10:42 Dose: 40 mg Hydralazine HCl (Apresoline) 50 mg PO BID [facility] Last Admin: 04/05/18 10:42 Dose: 50 mg Hydralazine HCl (Apresoline) 10 mg PO QID PRN PRN Reason: for sbp>170 Last Admin: 04/04/18 02:26 Dose: 10 mg Meropenem/Sodium Chloride (Merrem Iv 500 Mg/Ns 50 Ml) 500 mg in 50 mls @ 100 mls/hr IVPB Q12 [facility]; Protocol Stop: 04/09/18 16:40 Last Admin: 04/05/18 10:38 Dose: 100 mls/hr Doxycycline Hyclate 100 mg/ (Sodium Chloride) 100 mls @ 100 mls/hr IVPB Q12 [facility]; Protocol Stop: 04/09/18 22:01 Last Admin: 04/05/18 10:38 Dose: 100 mls/hr Insulin Detemir (Levemir) 15 unit SC [facility] Last Admin: 04/04/18 21:42 Dose: 15 tube Insulin Human Lispro (Humalog) 8 units SC AC [facility] Last Admin: 04/05/18 11:53 Dose: 8 units Insulin Human Regular (Humulin R Med) 0 units SC [facility]; Protocol Last Admin: 04/05/18 11:52 Dose: 1 unit Lorazepam (Ativan) 0.5 mg PO [facility]; Protocol Last Admin: 04/04/18 21:40 Dose: 0.5 mg Magnesium Oxide (Mag-Ox) 400 mg PO BID [facility] Last Admin: 04/05/18 10:40 Dose: 400 mg Methylprednisolone (Solu-Medrol) 40 mg IVP Q8H [facility] Last Admin: 04/05/18 11:52 Dose: 40 mg Metoprolol Tartrate (Lopressor) 25 mg PO BID [facility] Last Admin: 04/05/18 10:41 Dose: 25 mg Montelukast Sodium (Singulair) 10 mg PO [facility] Last Admin: 04/04/18 21:44 Dose: 10 mg Nicotine (Nicoderm Cq) 1 patch TD DAILY [facility] Last Admin: 04/05/18 10:39 Dose: 1 patch Oxycodone/Acetaminophen (Percocet 5/325 Mg Tab) 1 tab PO Q6H PRN PRN Reason: Pain, moderate (4-7) Stop: 04/07/18 09:17 Last Admin: 04/05/18 02:34 Dose: 1 tab Pantoprazole Sodium (Protonix Ec Tab) 40 mg PO 0600 [facility] Last Admin: 04/05/18 05:06 Dose: 40 mg Roflumilast (Daliresp) 250 mcg PO DAILY [facility] Last Admin: 04/05/18 10:39 Dose: 250 mcg Vitamin B Complex/Vit C/Folic Acid (Nephro-Enrrique) 1 tab PO 0800 [facility] Last Admin: 04/05/18 08:13 Dose: 1 tab - Labs Labs: 04/05/18 05:40 04/05/18 05:40
--- NOTE | 2018-04-05 15:12 | PN ---
DATE: 04/05/2018 PULMONARY PROGRESS NOTE REFERRING PHYSICIAN: Sloan Sosa MD SUBJECTIVE: The patient is sitting up at bedside. No acute distress. No overnight events reported. Nurse is present at bedside, reports the patient refused to wear BiPAP last night. The patient reports she still has shortness of breath. No headache, rhinitis, chest pain, abdominal pain, nausea, vomiting, diarrhea or leg pain reported. OBJECTIVE: GENERAL: No acute distress. VITAL SIGNS: Blood pressure 130/47, pulse 86, oxygen saturation 96% on nasal cannula and temperature 98.2. HEENT: Moist mucous membranes. NECK: Supple. No JVD. LUNGS: Diminished breath sounds in the right, rhonchi. CARDIOVASCULAR: S1 and S2, audible. ABDOMEN: Soft and nontender. No distention. No organomegaly. EXTREMITIES: Bilateral upper and lower extremity edema. NEUROLOGIC: Awake, alert, and verbal. Follows commands. MEDICATIONS: Reviewed. Mucomyst 4 mL inhalation twice a day, DuoNeb 3 mL inhalation every 2 hours p.r.n. for shortness of breath, DuoNeb 3 mL inhalation every 6 hours, Xanax 0.5 mg 3 times a day p.r.n., Norvasc 5 mg daily, aspirin 81 mg daily, Lipitor 10 mg at bedtime, Pulmicort 0.5 mg inhalation every 12 hours, calcium acetate 2001 mg Monday and Monday, doxycycline 100 mg every 12 hours, Lovenox 30 mg daily, ergocalciferol 50,000 units every 7 days, Pepcid 20 mg daily, ferrous gluconate 324 mg 3 times a day, Lasix 40 mg daily, hydralazine 10 mg 4 times a day p.r.n., systolic blood pressure greater than 170, hydralazine 15 mg twice a day, Levemir 15 units subcutaneously at bedtime, Humalog 8 units subcutaneously a.c., Humulin R sliding scale a.c. and at bedtime, Ativan 0.5 mg at bedtime, magnesium oxide 400 mg twice a day, meropenem 500 mg every 12 hours, Solu-Medrol 40 mg every 8 hours, metoprolol tartrate 25 mg twice a day, Singulair 10 mg at bedtime, nicotine patch transdermally daily, Percocet 5/325 mg one tab every 6 hours p.r.n., Protonix 40 mg daily, Daliresp 250 mcg daily and Nephro-Enrrique one tab daily. LABORATORY DATA: Reviewed. WBC 3.4, RBC 2.95, hemoglobin 8.2, hematocrit 28.1 and platelets 230. PCO2 of 71, PO2 of 90, HCO3 of 25.9 and ABG pH 7.17. Sodium 139, potassium 4.5, chloride 102, carbon dioxide 27, anion gap 15, BUN 101, creatinine 3.9, GFR is 12, POC glucose 227, random glucose 245 and calcium 8.3. Chest x-ray no significant interval change in mild mid to inferior pulmonary air space disease and mild right pleural effusion, mild pulmonary vascular congestion noted as well. No pneumothorax bilaterally. IMPRESSION AND PLAN: Respiratory failure was on ventilator, presently extubated; chronic obstructive lung disease; history of breast cancer; pneumonia; diabetes; recurrent urinary tract infection; noncompliance with treatment in the past; active smoker; chronic anxiety; chronic back pain; anemia, cannot rule out metastatic disease to right lung. The patient has refused treatment for breast cancer in the past. Discussed with patient in depth the importance of using bilevel positive airway pressure machine at bedtime and as needed. The patient verbalized understanding and stated that she will try to use bilevel positive airway pressure machine, nurse present and informed nursing staff to please encourage the patient to use bilevel positive airway pressure machine. Sleep apnea precaution. Head of bed elevated at 45 degrees. Continue inhaled bronchodilators, leukotriene inhibitors, steroids, antibiotic therapy, gastric prophylaxis, fall precautions, deep venous thrombosis prophylaxis. Continue pulmonary toileting. Avoid nephrotoxic drugs, renal followup, continue incentive spirometry use and chest physiotherapy. Case discussed with nursing staff. The patient is high risk for respiratory failure. Need to determine what patient's goals of care are, whether she wants aggressive medical care or want to be do not resuscitate/do not intubate. Palliative care notes appreciated. Meeting to be arranged with family regarding goals of care. Critical care time spent more than 35 minutes. This patient was seen and examined with Dr. Rucker. Discussed the assessment and plan as described above. Thank you for this consult. We will follow with you. Didier Prudence, NURSE GENERAL DUTY Lisa Rucekr MD
[2018-04-05] MEDS: Albuterol-Ipratrop 3 mg / 0.5 (3 ml) UD IH PRN (16:40)
--- NOTE | 2018-04-05 20:29 | PN ---
DATE: 04/05/2018 REASON FOR CONSULTATION AND FOLLOWUP: Cardiac evaluation, congestive heart failure, exacerbation of COPD, respiratory distress, large pleural effusion, acute kidney injury, and chronic renal insufficiency. SUBJECTIVE: The patient is lying flat on the bed. Denies any chest pain, shortness of breath, or any palpitations. OBJECTIVE: GENERAL: Not in apparent distress. VITAL SIGNS: Temperature afebrile, heart rate 85, blood pressure 130/47. HEENT: PERRLA. Extraocular muscles intact. NECK: Supple. No carotid bruit or thyromegaly. CHEST: Clear to auscultation. HEART: S1, S2, regular. ABDOMEN: Soft. EXTREMITIES: Clubbing and cyanosis negative. LABORATORY DATA: Blood workup as follows: WBC 3.4, hemoglobin 8.2, hematocrit 28.1, platelet count 230. Chemistry shows sodium 130, potassium 4, chloride 102, carbon dioxide 27, anion gap of 15, BUN 101, creatinine 3.9. IMPRESSION: A 57-year-old female with past medical history of tobacco abuse, history of breast cancer, history of asthma, history of chronic obstructive pulmonary disease, history of anxiety disorder, history of chronic panic attack, history of chronic back pain, narcotic dependent, type 2 diabetes, history of recurrent urinary tract infections, chronic kidney disease, admitted with pneumonia, shortness of breath, large pleural effusion. Recent echo dated 03/09/2018 shows normal left ventricular function, normal mitral valve structure, ejection fraction calculated 63%. History of chronic kidney disease admitted with pneumonia, acute kidney injury now is stabilized. Sepsis, pneumonia, renal insufficiency. RECOMMENDATIONS: Continue to monitor electrolytes. Today, chest x-ray revealed no significant change interval, still mild pulmonary airspace disease, right pleural effusion, mild pulmonary vascular congestion improved from before. No pneumothorax noted. Continue broad-spectrum antibiotics. Continue hydralazine, avoid nephrotoxic medications. The patient's blood pressure is well controlled on 50 p.o. b.i.d. of hydralazine and p.r.n. hydralazine. Continue antibiotics. Continue baby aspirin. Continue beta-brendon. Continue Atorvastatin. Continue deep vein thrombosis prophylaxis and diuretics as per er registrar's indication. We will follow with you. Thank you Dr. Sosa for providing us the opportunity in taking care of the patient, Vannesa Arce. Lisa Hernandez MD [facility] # [id number]
[2018-04-05] MEDS: Insulin Detemir 100 units/ml Vial (Levemir) SC SCH (21:42)
[2018-04-06] MEDS: Albuterol-Ipratrop 3 mg / 0.5 (3 ml) UD IH SCH ×4 (02:56→20:22)
[2018-04-06] MEDS: MethylPREDNISolone 40 mg Vial IVP SCH ×4 (05:11→20:17)
[2018-04-06] MEDS: Pantoprazole 40 mg EC Tab PO SCH (05:11)
[2018-04-06] MEDS: Albuterol-Ipratrop 3 mg / 0.5 (3 ml) UD IH PRN (05:40)
[2018-04-06 07:11] LABS: GRAN # 3.03 (1.4-6.5); HEMOGLOBIN 7.6 g/dL (12.0-16.0); LYMPH # 0.2 (1.2-3.4); LYMPH % 6.3 % (22.0-35.0); MEAN CELL VOLUME 93.5 fl (80.0-105.0); MEAN CORPUSCULAR HEMOGLOBIN 27.2 pg (25.0-35.0); MEAN CORPUSCULAR HGB CONC 29.1 g/dl (31.0-37.0); MEAN PLATELET VOLUME 10.5 fl (7.0-11.0); MONO # 0.1 (0.1-0.6); MONO % 2.7 % (1.0-6.0); RBC 2.79 10^6/uL (3.5-6.1); RED CELL DISTRIBUTION WIDTH 18.7 % (11.5-14.5); WHITE BLOOD COUNT 3.3 10^3/uL (4.5-11.0)
[2018-04-06 07:25] LABS: ALB/GLOB RATIO 1.5 (1.1-1.8); ALBUMIN 3.6 g/dL (3.0-4.8); CALCIUM 8.7 mg/dL (8.4-10.5)
[2018-04-06] MEDS: Acetylcysteine 20% Inhal Soln (4ml) IH SCH ×2 (07:31→20:21)
[2018-04-06] MEDS: Budesonide 0.5 mg/2 ml Inhal Susp UD IH SCH ×2 (07:32→20:22)
--- NOTE | 2018-04-06 07:39 | CP.PCM.PN ---
Subjective - Date & Time of Evaluation Date of Evaluation: 04/06/18 Time of Evaluation: 07:34 - Subjective Subjective: PGY-2 heme/onc progress note No acute events noted overnight. Daughter and son at bedside. Patient denied any pain no difficulty breathing. Fresh lesion on anterior left centeno with bloody output likely from scratching noticed. Objective - Vital Signs/Intake and Output Vital Signs (last 24 hours): Temp Pulse Resp BP Pulse Ox 97.7 F 95 H 14 130/50 L 94 L 04/06/18 06:00 04/06/18 06:30 04/06/18 06:30 04/06/18 06:05 04/06/18 06:30 Intake and Output: 04/06/18 04/06/18 06:59 18:59 Intake Total 390 Balance 390 - Medications Medications: Current Medications Acetylcysteine (Acetylcysteine 20%) 4 ml IH BIDRESP [facility] Last Admin: 04/05/18 20:19 Dose: 4 ml Albuterol/Ipratropium (Duoneb 3 Mg/0.5 Mg (3 Ml) Ud) 3 ml IH [id number] [facility] Last Admin: 04/06/18 02:56 Dose: 3 ml Albuterol/Ipratropium (Duoneb 3 Mg/0.5 Mg (3 Ml) Ud) 3 ml IH Q2H PRN PRN Reason: Shortness of Breath Last Admin: 04/06/18 05:40 Dose: 3 ml Alprazolam (Xanax) 0.5 mg PO TID PRN; Protocol PRN Reason: Anxiety Last Admin: 04/06/18 03:08 Dose: 0.5 mg Amlodipine Besylate (Norvasc) 5 mg PO DAILY [facility] Last Admin: 04/05/18 10:41 Dose: 5 mg Aspirin (Ecotrin) 81 mg PO DAILY [facility] Last Admin: 04/05/18 10:40 Dose: 81 mg Atorvastatin Calcium (Lipitor) 10 mg PO HS [facility] Last Admin: 04/05/18 21:42 Dose: 10 mg Budesonide (Pulmicort Respules) 0.5 mg IH [id number] [facility] Last Admin: 04/05/18 20:19 Dose: 0.5 mg Calcium Acetate (Phoslo) 2,001 mg PO WM [facility] Last Admin: 04/05/18 17:41 Dose: 2,001 mg Enoxaparin Sodium (Lovenox) 30 mg SC DAILY [facility]; Protocol Last Admin: 04/05/18 10:39 Dose: 30 mg Ergocalciferol (Drisdol 50,000 Intl Units Cap) 1 cap PO Q7D [facility] Last Admin: 04/01/18 09:45 Dose: 1 cap Famotidine (Pepcid) 20 mg PO DAILY [facility] Last Admin: 04/05/18 10:40 Dose: 20 mg Ferrous Gluconate (Fergon) 324 mg PO TID [facility] Last Admin: 04/05/18 17:41 Dose: 324 mg Furosemide (Lasix) 40 mg IV DAILY [facility] Last Admin: 04/05/18 10:42 Dose: 40 mg Hydralazine HCl (Apresoline) 50 mg PO BID [facility] Last Admin: 04/05/18 17:41 Dose: 50 mg Hydralazine HCl (Apresoline) 10 mg PO QID PRN PRN Reason: for sbp>170 Last Admin: 04/04/18 02:26 Dose: 10 mg Meropenem/Sodium Chloride (Merrem Iv 500 Mg/Ns 50 Ml) 500 mg in 50 mls @ 100 mls/hr IVPB Q12 [facility]; Protocol Stop: 04/09/18 16:40 Last Admin: 04/05/18 22:57 Dose: 100 mls/hr Insulin Detemir (Levemir) 15 unit SC [facility] Last Admin: 04/05/18 21:42 Dose: 15 units Insulin Human Lispro (Humalog) 8 units SC AC [facility] Last Admin: 04/05/18 17:42 Dose: 8 units Insulin Human Regular (Humulin R Med) 0 units SC [facility]; Protocol Last Admin: 04/05/18 21:37 Dose: Not Given Lorazepam (Ativan) 0.5 mg PO HS [facility]; Protocol Last Admin: 04/05/18 21:41 Dose: 0.5 mg Magnesium Oxide (Mag-Ox) 400 mg PO BID [facility] Last Admin: 04/05/18 17:42 Dose: 400 mg Methylprednisolone (Solu-Medrol) 40 mg IVP Q8H [facility] Last Admin: 04/06/18 05:11 Dose: 40 mg Metoprolol Tartrate (Lopressor) 25 mg PO BID [facility] Last Admin: 04/05/18 17:41 Dose: 25 mg Montelukast Sodium (Singulair) 10 mg PO HS [facility] Last Admin: 04/05/18 21:42 Dose: 10 mg Nicotine (Nicoderm Cq) 1 patch TD DAILY [facility] Last Admin: 04/05/18 10:39 Dose: 1 patch Oxycodone/Acetaminophen (Percocet 5/325 Mg Tab) 1 tab PO Q6H PRN PRN Reason: Pain, moderate (4-7) Stop: 04/07/18 09:17 Last Admin: 04/05/18 15:17 Dose: 1 tab Pantoprazole Sodium (Protonix Ec Tab) 40 mg PO 0600 [facility] Last Admin: 04/06/18 05:11 Dose: 40 mg Roflumilast (Daliresp) 250 mcg PO DAILY [facility] Last Admin: 04/05/18 10:39 Dose: 250 mcg Sodium Chloride ([place] Nasal [place]) 0 ml NS Q2H PRN PRN Reason: Nasal congestion Vitamin B Complex/Vit C/Folic Acid (Nephro-Enrrique) 1 tab PO 0800 [facility] Last Admin: 04/05/18 08:13 Dose: 1 tab - Labs Labs: 04/06/18 05:30 04/06/18 05:30 - Additional Findings Additional findings: - Constitutional Appears: No Acute Distress, Older Than Stated Age - Head Exam Head Exam: ATRAUMATIC, NORMAL INSPECTION - Eye Exam Eye Exam: EOMI, Normal appearance, PERRL. absent: Scleral icterus - ENT Exam ENT Exam: Mucous Membranes Moist - Respiratory Exam Respiratory Exam: Decreased Breath Sounds, Rales Additional comments: rales R>L - Cardiovascular Exam Cardiovascular Exam: Tachycardia, REGULAR RHYTHM, +S1, +S2. absent: JVD - GI/Abdominal Exam GI & Abdominal Exam: Normal Bowel Sounds, Soft. absent: Tenderness - Extremities Exam Extremities exam: Positive for: normal capillary refill, normal inspection, pedal pulses present - Neurological Exam Neurological exam: Alert, Oriented x3 - Psychiatric Exam Psychiatric exam: Anxious - Skin Skin Exam: Normal Color, Warm Assessment and Plan - Assessment and Plan (Free Text) Plan: Mrs Granado is a 57 year old female with a PMHx history of breast cancer, severe COPD, anxiety, pneumonia, pleural effusions, CKD, xanax abuse, hx of non- compliance, hx of xanax/oxycodone overose, who presented to the ED in respiratory distress while on non-rebreather. Patient was then intubated while in ED due to lack of airway protection. Hematology/oncology has been consulted for anemia. Anemia -likely anemia of chronic disease 2/2 to ckd -Hgb on admission: 9.7 -> today 7.6 * chronically anemic since 02/2017 -order for iron studies, retic count, peripheral smear, B12, folate * retic count: 1.72, B12: 476, folate: 17, iron: 44, TIBC 213, %sat: 21, ferritin: 206, MCV: 96, LDH: 561 -has received erythropoetin in the past for anemia due to renal disease * CKD 3 and now with DAHLIA -f/u epo level, immunofixation, spep, LDH * epo 22.8 (mildly high) * ABDIRIZAK and SPEP -> selective protein loss pattern, suggestive of nephrotic syndrome -on ferrous gluconate 324mg po qd -recommend darbapoetin injections Hx L breast cancer (Dx 2015) invasive ductal carcinoma -ER+/HER2+ -Got 1 cycle of sandee-adjuvant chemo. After that, refuse chemo/surgery. -CT chest w/o contrast showed lymphadenopathy suspicious for tumor * etiology could be malignancy, infectious, inflammatory * repeat CT 1 month after current episode has resolved Case discussed with Dr Ruben Gleason
[2018-04-06] MEDS: Insulin Lispro 1 UNITS/0.01 ML SC SCH ×3 (08:18→16:43)
[2018-04-06] MEDS: Insulin Reg-MEDIUM-Coverage SC SCH ×4 (08:18→21:03)
[2018-04-06] MEDS: Multivitamin Vitamin B Complex (Nephro-Vite) Tab PO SCH (08:19)
[2018-04-06] MEDS: Magnesium Oxide 400 mg Tab UD PO SCH ×3 (10:44→17:09)
[2018-04-06] MEDS: Enoxaparin 30 mg Syringe SC SCH (10:44)
[2018-04-06] MEDS: MEROPENEM 500 MG in NS 500 MG/50 ML BAG IVPB SCH ×2 (10:45→21:04)
--- NOTE | 2018-04-06 12:17 | PN ---
DATE: 04/05/2018 SUBJECTIVE: The patient is still in the ICU. She still has respiratory distress, is improving, is better than before, but still has significant respiratory distress. Less dyspneic than previous days. The patient is still having congestion and dyspnea. PHYSICAL EXAMINATION: VITAL SIGNS: She is afebrile, 98.2. Heart rate 91, blood pressure 127/58 and respiratory rate is 16, saturating 66% on oxygen. HEAD AND NECK: Exam is normal. No JVD. CHEST: Diminished breath sounds on the right more than left. Few rales. CARDIAC: First sound and second sound normal. ABDOMEN: Soft and nontender. EXTREMITIES: Mild edema. NEUROLOGIC: Normal. LABORATORY STUDIES: White count 3.4, hemoglobin 8.2, hematocrit 28.1, and platelets 230. Chemistry; sodium 139, potassium 4.5, chloride 102, bicarb 27, BUN 101, creatinine 3.9, blood sugar 245, and calcium 8.3. DIAGNOSTIC DATA: Chest x-ray shows air-space disease, right pleural effusions, lung congestion. IMPRESSION AND PLAN: 1. Acute respiratory distress, status post extubation from respiratory failure due to chronic obstructive pulmonary disease exacerbations. The patient is an active smoker. She is having severe chronic obstructive pulmonary disease and oxygen noncompliant. She has been extubated, has been having pneumonia currently and seems to have a positive odor retention from previous days and still has congestive heart failure and fluid overload probably diastolic dysfunction and we will continue diuretics. Continue inhaled an IV bronchodilators. Continue IV antibiotic. BiPAP has been recommended. The patient was encouraged to use it. We will continue pulmonary support and we will discuss further with the patient. 2. Renal failure, acute worsening for chronic renal failure multifactorial. The patient does have diabetic nephropathy, hypertension plus prerenal may be a component of congestion and could be contributing at this time the chest x-ray shows congestion. I see high BNP; however, the x-ray shows congestion and some edema in the lower extremities, so we will continue Lasix, follow up with Nephrology and Cardiology recommendations and the paving inspector as they have been managing the patient. 3. Diabetes. Continue insulin. 4. Chronic anxiety and chronic back pain. Continue anxiolytic medications, Xanax 0.5 t.i.d. plus her oxycodone 5 mg. 5. Hypercholesterolemia. 6. Hypertension, stable. PLAN: Plan is to continue Lasix 40 mg IV daily, Lopressor 25 b.i.d., Lovenox 30 subcu daily, magnesium oxide, continue IV antibiotics Merrem and follow up with other consultants. Continue insulin adjusted. Continue Protonix 40 mg, want to decrease it to 20. Continue steroids. The patient is currently on Solu-Medrol 40 mg every 8 hours, continue current therapy. Sloan Sosa MD
--- NOTE | 2018-04-06 12:48 | PN ---
DATE: 04/06/2018 PULMONARY PROGRESS NOTE REFERRING PHYSICIAN: Sloan Sosa MD. SUBJECTIVE: The patient is sitting up at bedside. No acute distress. No overnight events reported. The patient reports not using BiPAP machine. States she did not want to use BiPAP machine. The patient still has shortness of breath at times and coughing. No headache, rhinitis, chest pain, abdominal pain, nausea, vomiting, diarrhea or leg pain reported. OBJECTIVE: GENERAL: No acute distress. VITAL SIGNS: Blood pressure 130/50, pulse 95, oxygen saturation 94% and temperature 97.7. HEENT: Moist mucous membranes. NECK: Supple. No JVD. LUNGS: Diminished breath sounds in the right, rhonchi bilaterally. CARDIOVASCULAR: S1 and S2 audible. ABDOMEN: Soft and nontender. No distention. No organomegaly. EXTREMITIES: Bilateral upper and lower extremity edema. NEUROLOGIC: Awake, alert and verbal. Follows commands. MEDICATIONS: Reviewed. Mucomyst 4 mL inhalation twice a day, DuoNeb 3 mL inhalation every 12 hours p.r.n., DuoNeb 3 mL inhalation every 6 hours, Xanax 0.5 mg 3 times a day p.r.n., Norvasc 5 mg daily, aspirin 81 mg daily, Lipitor 10 mg at bedtime, Pulmicort 0.5 mg every 12 hours, calcium acetate 2001 mg Monday and Monday, Lovenox 30 mg daily, ergocalciferol 1 cap every 7 days, Pepcid 20 mg daily, ferrous gluconate 324 mg daily, hydralazine 10 mg 4 times a day p.r.n. systolic blood pressure greater than 170, hydralazine 15 mg twice a day, Levemir 15 units subcutaneously at bedtime, Humalog 8 units before meals, Humulin R sliding scale before meals and at bedtime, Ativan 0.5 mg at bedtime, magnesium oxide 400 mg twice a day, meropenem 500 mg every 12 hours, Solu-Medrol 40 mg every 8 hours, metoprolol tartrate 25 mg twice a day, Singulair 10 mg at bedtime, nicotine patch transdermally daily, Percocet 5/325 mg every 6 hours p.r.n., Protonix 20 mg daily, Daliresp 250 mcg daily, [place] nasal spray every 2 hours p.r.n. and Nephro-Enrrique one tab daily. LABORATORY DATA: Reviewed. WBC 3.3, RBC 2.79, hemoglobin 7.6, hematocrit 26.1 and platelets 231. Sodium 140, potassium 4.2, chloride 101, carbon dioxide 28, anion gap 15, BUN 115, creatinine 4, GFR is 11, POC glucose 318, random glucose 290 and calcium 8.7, total bilirubin 0.3, AST 28, ALT 49, alkaline phosphatase 84, lactate dehydrogenase 561, total protein 6, albumin 3.6, globulin 2.4 and albumin-globulin ratio 1.5. IMPRESSION AND PLAN: Respiratory failure was on ventilator, presently extubated; chronic obstructive lung disease; history of breast cancer; pneumonia; diabetes; recurrent urinary tract infection; noncompliance with treatment in the past; active smoker; chronic anxiety; chronic back pain; anemia, cannot rule out metastatic disease to right lung. The patient has refused treatment for breast cancer in the past. The patient presently refusing to use bilevel positive airway pressure machine. I had a long discussion with the patient regarding chances of respiratory failure and . She remains noncompliant with bilevel positive airway pressure machine. The patient verbalized understanding. Continue to encourage bilevel positive airway pressure at bedtime, sleep apnea precaution, head of bed elevated at 45 degrees, continue inhaled bronchodilators, leukotriene inhibitors, antibiotics, gastric prophylaxis, deep venous thrombosis prophylaxis, fall precautions. Continue pulmonary toileting. Avoid nephrotoxic drugs. Continue incentive spirometry use and chest physiotherapy. We will order labs, chest x-ray, ABGs to be done in the morning. Critical care time spent more than 35 minutes. This patient was seen and examined with Dr. Rucker. Discussed the assessment and plan as described above. Thank you for this consult and we will follow with you. Didier Dennis APN Lisa Rucker MD [facility]
--- NOTE | 2018-04-06 12:53 | CP.PCM.PN ---
Subjective - Date & Time of Evaluation Date of Evaluation: 04/06/18 Time of Evaluation: 10:25 - Subjective Subjective: Still having shortness of breath at rest but a little better, no fevers. Objective - Vital Signs/Intake and Output Vital Signs (last 24 hours): Temp Pulse Resp BP Pulse Ox 98.2 F 86 12 130/47 L 96 04/05/18 00:00 04/05/18 12:00 04/05/18 12:00 04/05/18 12:00 04/05/18 08:00 Intake and Output: 04/05/18 04/05/18 06:59 18:59 Intake Total 350 Output Total 700 Balance -350 - Medications Medications: Current Medications Acetylcysteine (Acetylcysteine 20%) 4 ml IH BIDRESP [facility] Last Admin: 04/05/18 07:30 Dose: 4 ml Albuterol/Ipratropium (Duoneb 3 Mg/0.5 Mg (3 Ml) Ud) 3 ml IH [id number] [facility] Last Admin: 04/05/18 07:30 Dose: 3 ml Albuterol/Ipratropium (Duoneb 3 Mg/0.5 Mg (3 Ml) Ud) 3 ml IH Q2H PRN PRN Reason: Shortness of Breath Last Admin: 04/02/18 22:00 Dose: 3 ml Alprazolam (Xanax) 0.5 mg PO TID PRN; Protocol PRN Reason: Anxiety Last Admin: 04/04/18 21:45 Dose: 0.5 mg Amlodipine Besylate (Norvasc) 5 mg PO DAILY [facility] Last Admin: 04/05/18 10:41 Dose: 5 mg Aspirin (Ecotrin) 81 mg PO DAILY [facility] Last Admin: 04/05/18 10:40 Dose: 81 mg Atorvastatin Calcium (Lipitor) 10 mg PO HS [facility] Last Admin: 04/04/18 21:43 Dose: 10 mg Budesonide (Pulmicort Respules) 0.5 mg IH [id number] [facility] Last Admin: 04/05/18 07:30 Dose: 0.5 mg Calcium Acetate (Phoslo) 2,001 mg PO WM [facility] Last Admin: 04/05/18 11:52 Dose: 2,001 mg Enoxaparin Sodium (Lovenox) 30 mg SC DAILY [facility]; Protocol Last Admin: 04/05/18 10:39 Dose: 30 mg Ergocalciferol (Drisdol 50,000 Intl Units Cap) 1 cap PO Q7D [facility] Last Admin: 04/01/18 09:45 Dose: 1 cap Famotidine (Pepcid) 20 mg PO DAILY [facility] Last Admin: 04/05/18 10:40 Dose: 20 mg Ferrous Gluconate (Fergon) 324 mg PO TID [facility] Last Admin: 04/05/18 10:40 Dose: 324 mg Furosemide (Lasix) 40 mg IV DAILY [facility] Last Admin: 04/05/18 10:42 Dose: 40 mg Hydralazine HCl (Apresoline) 50 mg PO BID [facility] Last Admin: 04/05/18 10:42 Dose: 50 mg Hydralazine HCl (Apresoline) 10 mg PO QID PRN PRN Reason: for sbp>170 Last Admin: 04/04/18 02:26 Dose: 10 mg Meropenem/Sodium Chloride (Merrem Iv 500 Mg/Ns 50 Ml) 500 mg in 50 mls @ 100 mls/hr IVPB Q12 [facility]; Protocol Stop: 04/09/18 16:40 Last Admin: 04/05/18 10:38 Dose: 100 mls/hr Doxycycline Hyclate 100 mg/ (Sodium Chloride) 100 mls @ 100 mls/hr IVPB Q12 [facility]; Protocol Stop: 04/09/18 22:01 Last Admin: 04/05/18 10:38 Dose: 100 mls/hr Insulin Detemir (Levemir) 15 unit SC [facility] Last Admin: 04/04/18 21:42 Dose: 15 tube Insulin Human Lispro (Humalog) 8 units SC AC [facility] Last Admin: 04/05/18 11:53 Dose: 8 units Insulin Human Regular (Humulin R Med) 0 units SC ACHS [facility]; Protocol Last Admin: 04/05/18 11:52 Dose: 1 unit Lorazepam (Ativan) 0.5 mg PO HS [facility]; Protocol Last Admin: 04/04/18 21:40 Dose: 0.5 mg Magnesium Oxide (Mag-Ox) 400 mg PO BID [facility] Last Admin: 04/05/18 10:40 Dose: 400 mg Methylprednisolone (Solu-Medrol) 40 mg IVP Q8H [facility] Last Admin: 04/05/18 11:52 Dose: 40 mg Metoprolol Tartrate (Lopressor) 25 mg PO BID [facility] Last Admin: 04/05/18 10:41 Dose: 25 mg Montelukast Sodium (Singulair) 10 mg PO HS [facility] Last Admin: 04/04/18 21:44 Dose: 10 mg Nicotine (Nicoderm Cq) 1 patch TD DAILY [facility] Last Admin: 04/05/18 10:39 Dose: 1 patch Oxycodone/Acetaminophen (Percocet 5/325 Mg Tab) 1 tab PO Q6H PRN PRN Reason: Pain, moderate (4-7) Stop: 04/07/18 09:17 Last Admin: 04/05/18 02:34 Dose: 1 tab Pantoprazole Sodium (Protonix Ec Tab) 40 mg PO 0600 [facility] Last Admin: 04/05/18 05:06 Dose: 40 mg Roflumilast (Daliresp) 250 mcg PO DAILY [facility] Last Admin: 04/05/18 10:39 Dose: 250 mcg Vitamin B Complex/Vit C/Folic Acid (Nephro-Enrrique) 1 tab PO 0800 [facility] Last Admin: 04/05/18 08:13 Dose: 1 tab - Labs Labs: 04/05/18 05:40 04/05/18 05:40 - Constitutional Appears: No Acute Distress, Chronically Ill - Head Exam Head Exam: NORMAL INSPECTION - ENT Exam ENT Exam: Mucous Membranes Moist - Neck Exam Neck Exam: absent: Lymphadenopathy, Meningismus - Respiratory Exam Respiratory Exam: Decreased Breath Sounds - Cardiovascular Exam Cardiovascular Exam: +S1, +S2 - GI/Abdominal Exam GI & Abdominal Exam: Soft. absent: Tenderness Assessment and Plan - Assessment and Plan (Free Text) Plan: Assessment severe sepsis with hypercapneic respiratory failure S/P VDRF due to congestive heart failure R/O right sided HCAP history of urinary tract infection with Proteus mirabilis history of pneumonia history of [place] esophagitis End-stage COPD in a patient with a long history of smoking unresectable breast cancer DM HTN history of spine surgery history of bladder surgery history of UTI Plan continue Merrem and Doxycycline (Day 7) and will target up to 7 days of therapy blood cx are negative and nasal MRSA screen is negative PCT is normal will continue monitor clinically
[2018-04-06] MEDS: Oxycodone/Acetaminophen 5/325 mg Tab PO PRN ×2 (13:38→23:06)
--- NOTE | 2018-04-06 14:16 | RAD ---
Date of service: 04/06/2018 HISTORY: follow up infiltrate COMPARISON: 04/05/2018 FINDINGS: LUNGS: No change in right lower lobe infiltrate and small effusion. PLEURA: No significant pleural effusion identified, no pneumothorax apparent. CARDIOVASCULAR: Aortic calcification Mild cardiomegaly no pulmonary vascular congestion. OSSEOUS STRUCTURES: No significant abnormalities. VISUALIZED UPPER ABDOMEN: Normal. OTHER FINDINGS: None. IMPRESSION: No change in right lower lobe infiltrate and small pleural effusion
[2018-04-06] MEDS ORDERED: Darbepoetin Alfa 40 mcg/ml Inj IVP ONE ×2 (14:42→15:02)
--- NOTE | 2018-04-06 15:00 | CP.PCM.PN ---
Subjective - Date & Time of Evaluation Date of Evaluation: 04/06/18 Time of Evaluation: 14:58 - Subjective Subjective: Nephrology Consultation Note: Assessment: stable DAHLIA likely ATN, non-oliguric acute on chronc respi acidosis with respi failure with renal compensation rt large pleural effusion with chest wall mass ? malignant (hx of breast CA) Diabetic chronic Kidney Disease (E11.22) Hypertensive Chronic Kidney Disease (I12.9) Chronic Kidney Disease (N18.3) Stage 3 with 1200 mg proteinuria and 400 mg albuminuria (R80.9) likely due to DM/HTN Anemia (D64.9) hyperphosphatemia COPD/asthma, active smoker, breast cancer s/p surgery 2 years ago active smoker Plan No acute need for renal replacement therapy at this time but may need soon and will need close follow up. overall poor prognosis, seen by palliative care Hypertension control with meds as ordered. Maintain hemodynamics stable. Avoid hypotension. Patient not on ACEI/ARB due to low BP and hyperkalemia. started on lopressor by cardiology. added norvasc Monitor Input/Output, daily weights and renal function with basic metabolic panel low K diet low Phos diet, added phos binders will defer use of [place] to heme/onc in view of her recent breast malignancy with concerns for mets started iron, MVI and weekly Vit D CXR 04/06: no pulm congestion. has small Rt pleural effusion with infiltrate. BUN rising, will hold diuretics for now supplement lytes as needed seen by cardio heme/onc and pulmonary Dose meds/antibiotics for reduced GFR. Avoid fleets enema/magnesium based laxatives. Avoid nephrotoxins/NSAIDs/ iodinated contrast (unless needed emergently) Glycemic control. pt need to stop smoking Further work up/management as per primary team Thanks for allowing me to participate in care of your patient. Will follow patient with you. Please call if any Qs. had d/w team Dr Marco Antonio Chatman Office: [phone] Chief Complaint; SOB Reason for consult: CKD 3 HPI: Pt is a 57 F with hx of diabetes Mellitus ( years), hypertension (years) COPD/asthma, active smoker, breast cancer s/p surgery 2 years ago but didn't complete treatment now with mets, anemia, CKD stage 3 with baseline cr 1.8 mg/dL admitted with acute respi distress hypercapnic respi failure and intubated, now seen for CKD management Denies OTC/herbal meds or NSAIDs No recent iodinated contrast exposure. Noted obvious episodes of low BP. ROS: pt is a poor historian and overall hx is limited from her. not much interactive Physical Examination: General Appearance: stable appearing. on o2 Vitals reviewed and noted as below Head; Atraumatic, normocephalic ENT: no ulcers no thrush. Tongue is midline. Oropharynx: no rash or ulcers. she is hard of hearing EYES: Pupils are equal, round and reactive to light accommodation. Eye muscles and extraocular movement intact. Sclera is anicteric. has periorbital puffiness Neck; supple no lymphadenopathy, no thyromegaly or bruit Lungs: Improved respiratory rate/effort. Breath sounds reduced at base with b/l wheezing/crackle Heart: normal rate. s1s2 normal. No rub or gallop. Extremities: 1-2+ edema. No varicose veins Neurological: Patient is alert, awake and oriented to person, place and time. No focal deficit. Strength bilateral appropriate and equal Skin: Warm and dry. Normal turgor. No rash. Palpitation: Normal elasticity for age Abdomen: Abdomen is soft. Bowel sounds +. There is no abdominal tenderness, no guarding/rigidity no organomegaly Psych: lack insight and flat affect/mood MSK: no joint tenderness or swelling. Digits and nails normal, no deformity : kidney or bladder not palpable Labs/imaging reviewed. Past medical history, past surgical history, family history, social history, allergy reviewed and noted as below Family hx: no hx of CKD. Rest non-contributory renal imaging: b/l cysts echo normal LVEF TSAt 26% ferritin 45 Serum FLC assay WNL ABDIRIZAK neg PTH 154 Vit D 17 Objective - Vital Signs/Intake and Output Vital Signs (last 24 hours): Temp Pulse Resp BP Pulse Ox 97.7 F 95 H 14 130/50 L 94 L 04/06/18 06:00 04/06/18 06:30 04/06/18 06:30 04/06/18 10:43 04/06/18 06:30 Intake and Output: 04/06/18 04/06/18 06:59 18:59 Intake Total 390 Balance 390 - Medications Medications: Current Medications Acetylcysteine (Acetylcysteine 20%) 4 ml IH BIDRESP [facility] Last Admin: 04/06/18 07:31 Dose: 4 ml Albuterol/Ipratropium (Duoneb 3 Mg/0.5 Mg (3 Ml) Ud) 3 ml IH [id number] [facility] Last Admin: 04/06/18 13:08 Dose: 3 ml Albuterol/Ipratropium (Duoneb 3 Mg/0.5 Mg (3 Ml) Ud) 3 ml IH Q2H PRN PRN Reason: Shortness of Breath Last Admin: 04/06/18 05:40 Dose: 3 ml Alprazolam (Xanax) 0.5 mg PO TID PRN; Protocol PRN Reason: Anxiety Last Admin: 04/06/18 13:39 Dose: 0.5 mg Amlodipine Besylate (Norvasc) 5 mg PO DAILY [facility] Last Admin: 04/06/18 10:45 Dose: 5 mg Aspirin (Ecotrin) 81 mg PO DAILY [facility] Last Admin: 04/06/18 10:43 Dose: 81 mg Atorvastatin Calcium (Lipitor) 10 mg PO HS [facility] Last Admin: 04/05/18 21:42 Dose: 10 mg Budesonide (Pulmicort Respules) 0.5 mg IH [id number] [facility] Last Admin: 04/06/18 07:32 Dose: 0.5 mg Calcium Acetate (Phoslo) 2,001 mg PO WM [facility] Last Admin: 04/06/18 11:58 Dose: 2,001 mg Enoxaparin Sodium (Lovenox) 30 mg SC DAILY [facility]; Protocol Last Admin: 04/06/18 10:44 Dose: 30 mg Ergocalciferol (Drisdol 50,000 Intl Units Cap) 1 cap PO Q7D [facility] Last Admin: 04/01/18 09:45 Dose: 1 cap Famotidine (Pepcid) 20 mg PO DAILY [facility] Last Admin: 04/06/18 10:45 Dose: 20 mg Ferrous Gluconate (Fergon) 324 mg PO DAILY [facility] Hydralazine HCl (Apresoline) 50 mg PO BID [facility] Last Admin: 04/06/18 10:42 Dose: 50 mg Hydralazine HCl (Apresoline) 10 mg PO QID PRN PRN Reason: for sbp>170 Last Admin: 04/04/18 02:26 Dose: 10 mg Meropenem/Sodium Chloride (Merrem Iv 500 Mg/Ns 50 Ml) 500 mg in 50 mls @ 100 mls/hr IVPB Q12 [facility]; Protocol Stop: 04/09/18 16:40 Last Admin: 04/06/18 10:45 Dose: 100 mls/hr Insulin Detemir (Levemir) 15 unit SC [facility] Last Admin: 04/05/18 21:42 Dose: 15 units Insulin Human Lispro (Humalog) 8 units SC AC [facility] Last Admin: 04/06/18 11:57 Dose: 8 units Insulin Human Regular (Humulin R Med) 0 units SC ACHS [facility]; Protocol Last Admin: 04/06/18 11:58 Dose: 5 unit Lorazepam (Ativan) 0.5 mg PO HS [facility]; Protocol Last Admin: 04/05/18 21:41 Dose: 0.5 mg Magnesium Oxide (Mag-Ox) 400 mg PO BID [facility] Last Admin: 04/06/18 10:45 Dose: 400 mg Methylprednisolone (Solu-Medrol) 40 mg IVP Q8H [facility] Last Admin: 04/06/18 11:59 Dose: 40 mg Metoprolol Tartrate (Lopressor) 25 mg PO BID [facility] Last Admin: 04/06/18 10:44 Dose: 25 mg Montelukast Sodium (Singulair) 10 mg PO [facility] Last Admin: 04/05/18 21:42 Dose: 10 mg Nicotine (Nicoderm Cq) 1 patch TD DAILY [facility] Last Admin: 04/06/18 10:45 Dose: 1 patch Oxycodone/Acetaminophen (Percocet 5/325 Mg Tab) 1 tab PO Q6H PRN PRN Reason: Pain, moderate (4-7) Stop: 04/07/18 09:17 Last Admin: 04/06/18 13:38 Dose: 1 tab Pantoprazole Sodium (Protonix Ec Tab) 20 mg PO ACB [facility] Roflumilast (Daliresp) 250 mcg PO DAILY [facility] Last Admin: 04/06/18 10:42 Dose: 250 mcg Sodium Chloride ([place] Nasal [place]) 0 ml NS Q2H PRN PRN Reason: Nasal congestion Vitamin B Complex/Vit C/Folic Acid (Nephro-Enrrique) 1 tab PO 0800 [facility] Last Admin: 04/06/18 08:19 Dose: 1 tab - Labs Labs: 04/06/18 05:30 04/06/18 05:30
--- NOTE | 2018-04-06 15:47 | PN ---
DATE: 04/06/2018 REASON FOR CONSULTATION: Followup cardiac evaluation, congestive heart failure, exacerbation of COPD, respiratory , large pleural effusion, acute kidney injury and chronic renal insufficiency. SUBJECTIVE: The patient denies any chest pain, shortness of breath, or any palpitation. Lying flat on the bed. PHYSICAL EXAMINATION VITAL SIGNS: Temperature afebrile, heart rate 95, blood pressure 130/50. HEENT: PERRLA. Extraocular muscles intact. NECK: Supple. No carotid bruit or thyromegaly. CHEST: Clear to auscultation. HEART: S1 and S2 regular. ABDOMEN: Soft. EXTREMITIES: Clubbing, cyanosis negative. LABORATORY DATA: Blood workup as follows: WBC 3.3, hemoglobin 7.7, hematocrit 26.1, platelet count 231. Chemistry shows sodium 140, potassium 4.2, chloride 102, carbon dioxide 28, anion gap of 15, BUN 115, creatinine 4. IMPRESSION: A 57-year-old female with past medical history significant for tobacco with history of asthma, history of chronic obstructive pulmonary disease, anxiety disorder, history of chronic back pain, narcotic dependent, type 2 diabetes, history of recurrent urinary tract infection, chronic kidney disease, admitted with pneumonia, shortness of breath, large pleural effusion. Recent echo shows ejection fraction of 63% calculated, history of chronic kidney disease, known acute kidney injury, history of pneumonia, chronic renal insufficiency. Her kidney function is getting worse. RECOMMENDATIONS: Continue antihypertensive medication including hydralazine, avoid nephrotoxic medication. maintain on 50 mg p.o. b.i.d. with p.r.n. hydralazine. Continue atorvastatin, continue DVT prophylaxis, continue metoprolol, avoid nephrotoxic medications. Possibly, the patient may need dialysis. We will follow with you. Thank you Dr. Sosa for providing us the opportunity in taking care of the patient, Yazmin Granado. Lisa Hernandez MD
[2018-04-06] MEDS ORDERED: Oxycodone/Acetaminophen 5/325 mg Tab PO STA (16:19)
[2018-04-06] MEDS: Insulin Detemir 100 units/ml Vial (Levemir) SC SCH (21:02)
[2018-04-07] MEDS: Albuterol-Ipratrop 3 mg / 0.5 (3 ml) UD IH SCH ×4 (01:12→19:43)
[2018-04-07] MEDS: MethylPREDNISolone 40 mg Vial IVP SCH ×3 (05:36→21:05)
[2018-04-07] MEDS: Oxycodone/Acetaminophen 5/325 mg Tab PO PRN ×2 (05:36→22:43)
[2018-04-07 07:07] LABS: GRAN # 3.77 (1.4-6.5); GRAN % 93.1 % (50.0-68.0); HEMOGLOBIN 7.6 g/dL (12.0-16.0); LYMPH # 0.2 (1.2-3.4); LYMPH % 4.2 % (22.0-35.0); MEAN CELL VOLUME 94.5 fl (80.0-105.0); MEAN CORPUSCULAR HEMOGLOBIN 27.9 pg (25.0-35.0); MEAN CORPUSCULAR HGB CONC 29.6 g/dl (31.0-37.0); MEAN PLATELET VOLUME 10.7 fl (7.0-11.0); MONO # 0.1 (0.1-0.6); MONO % 2.7 % (1.0-6.0); RBC 2.72 10^6/uL (3.5-6.1); RED CELL DISTRIBUTION WIDTH 19.2 % (11.5-14.5); WHITE BLOOD COUNT 4.1 10^3/uL (4.5-11.0)
[2018-04-07] MEDS: Acetylcysteine 20% Inhal Soln (4ml) IH SCH ×2 (08:20→19:43)
[2018-04-07] MEDS: Budesonide 0.5 mg/2 ml Inhal Susp UD IH SCH ×2 (08:20→19:43)
[2018-04-07 08:28] LABS: ALB/GLOB RATIO 1.5 (1.1-1.8); ALBUMIN 3.6 g/dL (3.0-4.8)
[2018-04-07] MEDS: Insulin Lispro 1 UNITS/0.01 ML SC SCH ×3 (08:44→17:40)
[2018-04-07] MEDS: Multivitamin Vitamin B Complex (Nephro-Vite) Tab PO SCH (08:44)
[2018-04-07] MEDS: Pantoprazole 20 mg EC Tab PO SCH (08:44)
[2018-04-07] MEDS: Insulin Reg-MEDIUM-Coverage SC SCH ×4 (08:45→21:30)
[2018-04-07] MEDS: MEROPENEM 500 MG in NS 500 MG/50 ML BAG IVPB SCH (10:22)
[2018-04-07] MEDS: Enoxaparin 30 mg Syringe SC SCH (10:23)
[2018-04-07] MEDS: Magnesium Oxide 400 mg Tab UD PO SCH ×2 (10:24→17:39)
--- NOTE | 2018-04-07 12:43 | CP.PCM.PN ---
Subjective - Date & Time of Evaluation Date of Evaluation: 04/07/18 Time of Evaluation: 12:38 - Subjective Subjective: Nephrology Consultation Note: Assessment: stable DAHLIA likely ATN, non-oliguric acute on chronc respi acidosis with respi failure with renal compensation rt large pleural effusion with chest wall mass ? malignant (hx of breast CA) Diabetic chronic Kidney Disease (E11.22) Hypertensive Chronic Kidney Disease (I12.9) Chronic Kidney Disease (N18.3) Stage 3 with 1200 mg proteinuria and 400 mg albuminuria (R80.9) likely due to DM/HTN Anemia (D64.9) hyperphosphatemia COPD/asthma, active smoker, breast cancer s/p surgery 2 years ago active smoker Plan No acute need for renal replacement therapy at this time cr is trending down azotemia is worsening - I would recc reduce the IV solumedrol dose likely it is contributing BP relatively stable avoid NICOLE/ARb asked RN to monitor I/O and also check bladder scan after next void phos binders started iron, MVI and weekly Vit D Dose meds/antibiotics for reduced GFR. Avoid fleets enema/magnesium based laxatives. Avoid nephrotoxins/NSAIDs/ iodinated contrast (unless needed emergently) Further work up/management as per primary team S: seen and examiend did not want to answer my questiosn Physical Examination: General Appearance: stable appearing. on o2 Vitals reviewed and noted as below Head; Atraumatic, normocephalic ENT: no ulcers no thrush. Tongue is midline. Oropharynx: no rash or ulcers. she is hard of hearing EYES: Pupils are equal, round and reactive to light accommodation. Eye muscles and extraocular movement intact. Sclera is anicteric. has periorbital puffiness Neck; supple no lymphadenopathy, no thyromegaly or bruit Lungs+ wheeze b/l Heart: normal rate. s1s2 normal. No rub or gallop. Extremities: 1-2+ edema. No varicose veins Neurological: Patient is alert, awake and oriented to person, place and time. No focal deficit. Strength bilateral appropriate and equal Skin: Warm and dry. Normal turgor. No rash. Palpitation: Normal elasticity for age Abdomen: Abdomen is soft. Bowel sounds +. There is no abdominal tenderness, no guarding/rigidity no organomegaly Psych: flat affect MSK: no joint tenderness or swelling. Digits and nails normal, no deformity : kidney or bladder not palpable Labs/imaging reviewed. Past medical history, past surgical history, family history, social history, allergy reviewed and noted as below Family hx: no hx of CKD. Rest non-contributory renal imaging: b/l cysts echo normal LVEF TSAt 26% ferritin 45 Serum FLC assay WNL ABDIRIZAK neg PTH 154 Vit D 17 Objective - Vital Signs/Intake and Output Vital Signs (last 24 hours): Temp Pulse Resp BP Pulse Ox 97.1 F L 94 H 20 133/46 L 100 04/07/18 06:00 04/07/18 10:25 04/07/18 06:00 04/07/18 10:25 04/07/18 06:00 Intake and Output: 04/07/18 04/07/18 06:59 18:59 Intake Total 60 Balance 60 - Medications Medications: Current Medications Acetylcysteine (Acetylcysteine 20%) 4 ml IH BIDRESP [facility] Last Admin: 04/07/18 08:20 Dose: 4 ml Albuterol/Ipratropium (Duoneb 3 Mg/0.5 Mg (3 Ml) Ud) 3 ml IH [id number] [facility] Last Admin: 04/07/18 08:20 Dose: 3 ml Albuterol/Ipratropium (Duoneb 3 Mg/0.5 Mg (3 Ml) Ud) 3 ml IH Q2H PRN PRN Reason: Shortness of Breath Last Admin: 04/06/18 05:40 Dose: 3 ml Alprazolam (Xanax) 0.5 mg PO TID PRN; Protocol PRN Reason: Anxiety Last Admin: 04/06/18 22:10 Dose: 0.5 mg Amlodipine Besylate (Norvasc) 5 mg PO DAILY [facility] Last Admin: 04/07/18 10:25 Dose: 5 mg Aspirin (Ecotrin) 81 mg PO DAILY [facility] Last Admin: 04/07/18 10:23 Dose: 81 mg Atorvastatin Calcium (Lipitor) 10 mg PO HS [facility] Last Admin: 04/06/18 21:02 Dose: 10 mg Budesonide (Pulmicort Respules) 0.5 mg IH [id number] [facility] Last Admin: 04/07/18 08:20 Dose: 0.5 mg Calcium Acetate (Phoslo) 2,001 mg PO WM [facility] Last Admin: 04/07/18 08:44 Dose: 2,001 mg Enoxaparin Sodium (Lovenox) 30 mg SC DAILY [facility]; Protocol Last Admin: 04/07/18 10:23 Dose: 30 mg Ergocalciferol (Drisdol 50,000 Intl Units Cap) 1 cap PO Q7D [facility] Last Admin: 04/01/18 09:45 Dose: 1 cap Famotidine (Pepcid) 20 mg PO DAILY [facility] Last Admin: 04/07/18 10:23 Dose: 20 mg Ferrous Gluconate (Fergon) 324 mg PO DAILY [facility] Last Admin: 04/07/18 10:23 Dose: 324 mg Hydralazine HCl (Apresoline) 50 mg PO BID [facility] Last Admin: 04/07/18 10:25 Dose: 50 mg Hydralazine HCl (Apresoline) 10 mg PO QID PRN PRN Reason: for sbp>170 Last Admin: 04/04/18 02:26 Dose: 10 mg Meropenem/Sodium Chloride (Merrem Iv 500 Mg/Ns 50 Ml) 500 mg in 50 mls @ 100 mls/hr IVPB Q12 [facility]; Protocol Stop: 04/09/18 16:40 Last Admin: 04/07/18 10:22 Dose: 100 mls/hr Insulin Detemir (Levemir) 15 unit SC [facility] Last Admin: 04/06/18 21:02 Dose: 15 units Insulin Human Lispro (Humalog) 8 units SC AC [facility] Last Admin: 04/07/18 08:44 Dose: 8 units Insulin Human Regular (Humulin R Med) 0 units SC ACHS [facility]; Protocol Last Admin: 04/07/18 08:45 Dose: 7 unit Lorazepam (Ativan) 0.5 mg PO [facility]; Protocol Last Admin: 04/06/18 21:00 Dose: 0.5 mg Magnesium Oxide (Mag-Ox) 400 mg PO BID [facility] Last Admin: 04/07/18 10:24 Dose: 400 mg Methylprednisolone (Solu-Medrol) 40 mg IVP Q8H [facility] Last Admin: 04/07/18 05:36 Dose: 40 mg Metoprolol Tartrate (Lopressor) 25 mg PO BID [facility] Last Admin: 04/07/18 10:24 Dose: 25 mg Montelukast Sodium (Singulair) 10 mg PO [facility] Last Admin: 04/06/18 21:05 Dose: 10 mg Nicotine (Nicoderm Cq) 1 patch TD DAILY [facility] Last Admin: 04/07/18 10:22 Dose: 1 patch Pantoprazole Sodium (Protonix Ec Tab) 20 mg PO ACB [facility] Last Admin: 04/07/18 08:44 Dose: 20 mg Roflumilast (Daliresp) 250 mcg PO DAILY [facility] Last Admin: 04/07/18 10:23 Dose: 250 mcg Sodium Chloride ([place] Nasal [place]) 0 ml NS Q2H PRN PRN Reason: Nasal congestion Vitamin B Complex/Vit C/Folic Acid (Nephro-Enrrique) 1 tab PO 0800 [facility] Last Admin: 04/07/18 08:44 Dose: 1 tab - Labs Labs: 04/07/18 06:00 04/07/18 06:00
--- NOTE | 2018-04-07 14:32 | CP.PCM.PN ---
Subjective - Date & Time of Evaluation Date of Evaluation: 04/07/18 Time of Evaluation: 10:15 - Subjective Subjective: Still having shortness of breath but better, no fevers, still feels weak but better. Objective - Vital Signs/Intake and Output Vital Signs (last 24 hours): Temp Pulse Resp BP Pulse Ox 97.7 F 95 H 14 130/50 L 94 L 04/06/18 06:00 04/06/18 06:30 04/06/18 06:30 04/06/18 10:43 04/06/18 06:30 Intake and Output: 04/06/18 04/06/18 06:59 18:59 Intake Total 390 Balance 390 - Medications Medications: Current Medications Acetylcysteine (Acetylcysteine 20%) 4 ml IH BIDRESP [facility] Last Admin: 04/06/18 07:31 Dose: 4 ml Albuterol/Ipratropium (Duoneb 3 Mg/0.5 Mg (3 Ml) Ud) 3 ml IH [id number] [facility] Last Admin: 04/06/18 07:31 Dose: 3 ml Albuterol/Ipratropium (Duoneb 3 Mg/0.5 Mg (3 Ml) Ud) 3 ml IH Q2H PRN PRN Reason: Shortness of Breath Last Admin: 04/06/18 05:40 Dose: 3 ml Alprazolam (Xanax) 0.5 mg PO TID PRN; Protocol PRN Reason: Anxiety Last Admin: 04/06/18 03:08 Dose: 0.5 mg Amlodipine Besylate (Norvasc) 5 mg PO DAILY [facility] Last Admin: 04/06/18 10:45 Dose: 5 mg Aspirin (Ecotrin) 81 mg PO DAILY [facility] Last Admin: 04/06/18 10:43 Dose: 81 mg Atorvastatin Calcium (Lipitor) 10 mg PO HS [facility] Last Admin: 04/05/18 21:42 Dose: 10 mg Budesonide (Pulmicort Respules) 0.5 mg IH [id number] [facility] Last Admin: 04/06/18 07:32 Dose: 0.5 mg Calcium Acetate (Phoslo) 2,001 mg PO WM [facility] Last Admin: 04/06/18 11:58 Dose: 2,001 mg Enoxaparin Sodium (Lovenox) 30 mg SC DAILY [facility]; Protocol Last Admin: 04/06/18 10:44 Dose: 30 mg Ergocalciferol (Drisdol 50,000 Intl Units Cap) 1 cap PO Q7D [facility] Last Admin: 04/01/18 09:45 Dose: 1 cap Famotidine (Pepcid) 20 mg PO DAILY [facility] Last Admin: 04/06/18 10:45 Dose: 20 mg Ferrous Gluconate (Fergon) 324 mg PO DAILY [facility] Hydralazine HCl (Apresoline) 50 mg PO BID [facility] Last Admin: 04/06/18 10:42 Dose: 50 mg Hydralazine HCl (Apresoline) 10 mg PO QID PRN PRN Reason: for sbp>170 Last Admin: 04/04/18 02:26 Dose: 10 mg Meropenem/Sodium Chloride (Merrem Iv 500 Mg/Ns 50 Ml) 500 mg in 50 mls @ 100 mls/hr IVPB Q12 [facility]; Protocol Stop: 04/09/18 16:40 Last Admin: 04/06/18 10:45 Dose: 100 mls/hr Insulin Detemir (Levemir) 15 unit SC HS [facility] Last Admin: 04/05/18 21:42 Dose: 15 units Insulin Human Lispro (Humalog) 8 units SC AC [facility] Last Admin: 04/06/18 11:57 Dose: 8 units Insulin Human Regular (Humulin R Med) 0 units SC ACHS [facility]; Protocol Last Admin: 04/06/18 11:58 Dose: 5 unit Lorazepam (Ativan) 0.5 mg PO HS [facility]; Protocol Last Admin: 04/05/18 21:41 Dose: 0.5 mg Magnesium Oxide (Mag-Ox) 400 mg PO BID [facility] Last Admin: 04/06/18 10:45 Dose: 400 mg Methylprednisolone (Solu-Medrol) 40 mg IVP Q8H [facility] Last Admin: 04/06/18 11:59 Dose: 40 mg Metoprolol Tartrate (Lopressor) 25 mg PO BID [facility] Last Admin: 04/06/18 10:44 Dose: 25 mg Montelukast Sodium (Singulair) 10 mg PO HS [facility] Last Admin: 04/05/18 21:42 Dose: 10 mg Nicotine (Nicoderm Cq) 1 patch TD DAILY [facility] Last Admin: 04/06/18 10:45 Dose: 1 patch Oxycodone/Acetaminophen (Percocet 5/325 Mg Tab) 1 tab PO Q6H PRN PRN Reason: Pain, moderate (4-7) Stop: 04/07/18 09:17 Last Admin: 04/05/18 15:17 Dose: 1 tab Pantoprazole Sodium (Protonix Ec Tab) 20 mg PO ACB [facility] Roflumilast (Daliresp) 250 mcg PO DAILY [facility] Last Admin: 04/06/18 10:42 Dose: 250 mcg Sodium Chloride ([place] Nasal [place]) 0 ml NS Q2H PRN PRN Reason: Nasal congestion Vitamin B Complex/Vit C/Folic Acid (Nephro-Enrrique) 1 tab PO 0800 [facility] Last Admin: 04/06/18 08:19 Dose: 1 tab - Labs Labs: 04/06/18 05:30 04/06/18 05:30 - Constitutional Appears: Chronically Ill - Head Exam Head Exam: NORMAL INSPECTION - Respiratory Exam Respiratory Exam: Decreased Breath Sounds - Cardiovascular Exam Cardiovascular Exam: +S1, +S2 - GI/Abdominal Exam GI & Abdominal Exam: Soft. 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
--- NOTE | 2018-04-07 20:29 | PN ---
DATE: 04/06/2018 SUBJECTIVE: She was seen on 04/06/2018 in the unit. She is in moderate respiratory distress, not using BiPAP. She denies any chest pain. She does have difficulty hearing. Does not seem to be any new complaint. PHYSICAL EXAMINATION: VITAL SIGNS: Temperature 97.7, heart rate 95, respiratory rate 33, and saturation 95% on 3 L nasal cannula. HEAD AND NECK: Normal. CHEST: Diminished breath sounds, right more than left. No wheezing. Few rhonchi. CARDIAC: First sound and second sound normal. No murmur, rub, or gallop. ABDOMEN: Soft and nontender. EXTREMITIES: Mild edema in ankles. NEUROLOGICAL: She has difficulty hearing, but she responds, she talks, she moves all extremities. LABORATORY STUDIES: White count 3.3, hemoglobin 7.6, hematocrit 26.1, and platelets 231,000. Chemistry: Sodium 140, potassium 4.2, chloride 101, bicarb 28, BUN 115, and creatinine 4. Her blood sugar 290. Calcium 8.7. Liver function tests normal. IMPRESSION AND PLAN: 1. Status post respiratory failure, multifactorial, mainly due to chronic obstructive pulmonary disease, emphysema, due to heavy smoking. 2. Diastolic heart failure with fluid overload from previous days in ICU pulse kidney failure. We will continue inhaled bronchodilators, IV bronchodilators, BiPAP machine, noncompliant with it, and IV steroids. Inhaled bronchodilators, Ecotrin and DuoNeb. She is still taking Daliresp and Mucomyst. We will continue current therapy. 3. Chronic renal failure, acute worsening, multifactorial, diabetic, possibly renal. Continue to follow up with the fashion marketer. 4. Anemia; diabetes mellitus, insulin dependent; hypertension; breast carcinoma, advanced; chronic anxiety; chronic back pain. Continue current medications. CURRENT MEDICATIONS: Solu-Medrol 40 IV every 8 hours, Xanax, Singulair, Pulmicort, Protonix, PhosLo, Pepcid, [place], Norvasc 5 mg, Nicoderm CQ, multivitamin, Nephro-Enrrique, magnesium oxide, Lovenox 30, Lopressor 25 b.i.d., Lipitor 10, Levemir 15 units insulin coverage plus 8 units before meals, iron pills, aspirin 81, DuoNeb, vitamin D, Daliresp 250 mg, Ativan 0.5 mg h.s., hydralazine 50 b.i.d., and Mucomyst. Continue current therapy. Discussed with the patient before she needs to be intubated if respiratory distress happens. She is noncompliant with BiPAP; however, if she remains on the ventilator and in case she is not getting better, she needs to get the tube out and be comfort care. I discussed with the patient, her sister, and the son and daughter, and as per their wishes, we will continue supportive care and continue current therapy. Prognosis is poor. Sloan Sosa MD
--- NOTE | 2018-04-07 21:07 | PN ---
DATE: 04/07/2018 SUBJECTIVE: The patient is lying in bed. She seems a little bit tachypneic. She has difficulty hearing, but she stood up, sitting. She did not respond to the questions about her BiPAP use, she does not want it, and Dr. Rucker is seeing the patient too. PHYSICAL EXAMINATION GENERAL: She is mildly tachypneic, not using BiPAP. VITAL SIGNS: Temperature 97.1, heart rate 94, blood pressure 133/46, respirations 20, saturation 100% on nasal cannula. HEAD AND NECK: Normal. No JVD. No thyromegaly. CHEST: Diminished breath sounds on right side, few rhonchi. CARDIAC: First sound and second sound normal. ABDOMEN: Soft and nontender. EXTREMITIES: Mild edema. NEUROLOGICAL: Normal. DIAGNOSTIC DATA: Repeat x-ray shows venous congestion. Laboratory studies for this patient dated 04/07/2018, her sodium 144, potassium 4.5, chloride 103, BUN 123, creatinine 3.5, and glucose 258. She also has a slight elevation in AST. CBC shows white count 4.1, hemoglobin 7.6, hematocrit 25.7, and platelets 254,000. IMPRESSION AND PLAN: 1. Status post respiratory failure, extubation, severe chronic obstructive pulmonary disease. Continue BiPAP machine, but she is noncompliant. Continue IV antibiotics. She did finish doxycycline and Merrem. Seen by ID information consultant, Dr. Damon. Blood cultures are negative. Nasal MRSA is negative. So, the patient, infectious-macario, is doing well. Continue inhaled and IV bronchodilators, Daliresp, and IV Lasix. We will monitor her case. The patient may get worse because she is noncompliant with BiPAP and needs intubation. Discussed this with the patient's sister, Andrei, and the patient that if her case got worse, she will be intubated; however, if she stayed longer on the vent and her case is not improving, she does not want a tracheostomy, she does not want to be on the machine, so continue current therapy for now and we will follow up. I did discuss with the sister today in [place] and with the daughter and the son. 2. Chronic renal failure, acute, worsening. Continue monitoring with the prepared foods team leader. Seems better. Spoke with Dr. Ricketts. 3. Insulin-dependent diabetes, hypertension, hypercholesterolemia, generalized weakness, anxiety, chronic back pain. Continue current medications. The patient is otherwise stable. We will continue to monitor. Also, the patient has breast cancer, advanced, refused surgery, she refused chemo in the past. At this time, it is a nonrecurrent problem and I think more likely the problem is the lung and the kidney failure. Continue current care. Sloan Sosa MD
[2018-04-07] MEDS: Insulin Detemir 100 units/ml Vial (Levemir) SC SCH (21:32)
--- NOTE | 2018-04-07 22:16 | PN ---
DATE: 04/07/[address] Gleason. SUBJECTIVE: The patient is a 57-year-old female, admitted by the emergency room for severe respiratory distress, then treated in the intensive care unit with good effect and now seen on the medical floor. The patient has history of COPD with the patient requiring intubation this hospitalization, then extubated as per Dr. Rucker's recommendation. She also suffers from chronic renal failure, diabetes with anemic indices for which she has been monitored. At present, she is resting comfortably, sitting up in a chair with her family at the bedside. The patient is having difficulty hearing. The patient also has a remote history of breast cancer. OBJECTIVE/PHYSICAL EXAMINATION: VITAL SIGNS: Temperature 97.1, pulse 94, respirations 20, blood pressure 133/46, and pulse ox 100%. HEENT: Unremarkable. NECK: Supple. HEART: Regular rate. LUNGS: Decreased breath sounds in the right, occasional rhonchi bilaterally. ABDOMEN: Obese, soft, nontender. EXTREMITIES: +1 edema of the feet, faint +1 edema of the hands bilaterally. NEUROLOGIC: Awake and alert with marked decreased hearing. LABORATORY DATA: The patient's labs were done. White blood cell count of 4.1, hemoglobin of 7.6, hematocrit 25.7, and platelet count of 254,000. The patient's chem metabolic panel shows a BUN of 123, creatinine of 3.5, nonfasting glucose of 321, AST 39, otherwise normal metabolic panel. The patient had a chest x-ray done yesterday, was read as no change, right lower lobe infiltrates, small pleural effusion. ASSESSMENT: Respiratory failure, status post intubation, then extubation, chronic obstructive pulmonary disease, pneumonia, diabetes mellitus, history of breast cancer, noncompliance, questionable affective disorder, chronic anxiety, chronic back pain, anemia of chronic kidney disease. PLAN: The patient's previous records were reviewed with the patient known to have an iron percent saturation of 21% on 04/03/2018 with an erythropoietin level on 04/03/2018 of 22.8. The patient is being followed by her dispatcher radio, Dr. Gaytan, with consideration for Aranesp for her chronic kidney disease with anemia. In the interim, iron tablets were recommended; however, due to GI considerations and constipation, we will recommend IV Venofer to be given with monitoring of her labs. This is a complex patient with a comprehensive medically necessary and appropriate visit carried out in excess of 40 minutes with the patient's family's questions answered to her satisfaction. As per Dr. Damon, the patient's antibiotics were just discontinued as she completed a course of Merrem and doxycycline. We will continue to monitor off antibiotics as per his recommendation. Juan Jose Valles MD
--- NOTE | 2018-04-07 23:40 | PN ---
DATE: 04/07/2018 PULMONARY PROGRESS NOTE REFERRING PHYSICIAN: Sloan Sosa MD SUBJECTIVE: She is lying in the bed, sleepy, arousable. Her children is at bedside. Nursing staff is at bedside. The patient is refusing BiPAP, also refused nebulizer treatment. For the last few days, she had been noncompliant with non-invasive ventilation. No hemoptysis. No hematemesis. No hematuria. Does have leg swelling. PHYSICAL EXAMINATION: GENERAL: No acute distress. VITAL SIGNS: Temperature 98.6, respiratory rate is 20, blood pressure 135/55, pulse ox 95% on room air. HEENT: Moist mucous membranes. Crowded airway. Mallampati score is 4. NECK: Supple. No JVD. LUNGS: Has scattered rhonchi. Expiratory breath sound on the right lung. HEART: S1 and S2. ABDOMEN: Soft, nontender. No organomegaly. EXTREMITIES: There is no edema. NEUROLOGIC: Awake, sleepy, but arousable. MEDICATIONS: She is on Mucomyst inhaler twice a day, hydralazine 10 mg four times daily p.r.n., also hydralazine 50 mg twice a day, lorazepam 0.5 mg at bedtime, Daliresp 250 mcg daily, vitamin D 50,000 units weekly, DuoNeb every 12 hours p.r.n. and every 6 hours round the clock, Ecotrin 81 mg daily, insulin coverage Levemir 15 units subcu at bedtime, Lipitor 10 mEq daily, metoprolol tartarate 25 mg twice a day, Lovenox 30 mg subcutaneous daily, magnesium oxide 400 mg twice a day, Nephro-Enrrique daily, nicotine patch daily, Norvasc 5 mg daily, nasal saline every 12 hours p.r.n., Pepcid 20 mg daily, Phos-Lo with the meals, Pulmicort inhaler twice a day, Singulair 10 mg daily, Solu-Medrol 40 mg every 8 hours, Xanax 0.5 mg three times a day p.r.n. LABORATORY DATA: Show hemoglobin 7.6, hematocrit 25.7, WBC 4.1, platelet count 254. Sodium 144, potassium 4.5, chloride 103, bicarbonate 32, BUN 123, creatinine 2.5, glucose 258, calcium 9, total bilirubin 0.2, AST 39, ALT 51, alkaline phosphatase 71. Microbiology: Urine has some yeast, otherwise unremarkable. IMPRESSION AND PLAN: Respiratory failure with hypoventilation syndrome and severe chronic lung disease with atelectasis with mucus plugging, history of breast cancer, pneumonia, diabetes, recurrent urinary tract infection, noncompliant with followup and treatment. Recent worsening renal function. Case discussed with the patient's family at bedside. Also spoke to nursing staff. Dr. Sosa also arrived during those conversation. I had a long discussion with Dr. Sosa about DNR status. According to Dr. Sosa, she wishing to be intubated, but if un-extubatable or terminal, the patient should undergo terminal weaning. I will continue to encourage bilevel positive airway pressure use. Encourage nebulizer treatment, pulmonary toilet, out of bed to chair. Overall very poor prognosis and has a noncompliant act of smoking and severe lung disease. Thank you and we will follow with you. Lisa Rucker MD
[2018-04-08] MEDS: Albuterol-Ipratrop 3 mg / 0.5 (3 ml) UD IH SCH ×4 (03:00→19:45)
[2018-04-08] MEDS: MethylPREDNISolone 40 mg Vial IVP SCH ×3 (05:14→21:55)
[2018-04-08 07:11] LABS: GRAN # 4.04 (1.4-6.5); GRAN % 90.8 % (50.0-68.0); HEMOGLOBIN 7.7 g/dL (12.0-16.0); LYMPH # 0.3 (1.2-3.4); LYMPH % 6.5 % (22.0-35.0); MEAN CELL VOLUME 95.6 fl (80.0-105.0); MEAN CORPUSCULAR HGB CONC 29.3 g/dl (31.0-37.0); MEAN PLATELET VOLUME 11.3 fl (7.0-11.0); MONO # 0.1 (0.1-0.6); MONO % 2.7 % (1.0-6.0); PLATELET COUNT 262 10^3/uL (120.0-450.0); RBC 2.75 10^6/uL (3.5-6.1); RED CELL DISTRIBUTION WIDTH 19.1 % (11.5-14.5); WHITE BLOOD COUNT 4.5 10^3/uL (4.5-11.0)
[2018-04-08 07:33] LABS: ALB/GLOB RATIO 1.5 (1.1-1.8); ALBUMIN 3.6 g/dL (3.0-4.8); CALCIUM 9.2 mg/dL (8.4-10.5)
[2018-04-08] MEDS: Acetylcysteine 20% Inhal Soln (4ml) IH SCH ×2 (07:57→19:45)
[2018-04-08] MEDS: Budesonide 0.5 mg/2 ml Inhal Susp UD IH SCH ×2 (07:57→19:45)
[2018-04-08] MEDS: Ergocalciferol 50,000 Intl Units Cap PO SCH (08:32)
[2018-04-08] MEDS: Insulin Reg-MEDIUM-Coverage SC SCH ×4 (08:33→21:45)
[2018-04-08] MEDS: Pantoprazole 20 mg EC Tab PO SCH (08:33)
[2018-04-08] MEDS: Insulin Lispro 1 UNITS/0.01 ML SC SCH ×3 (08:33→17:25)
[2018-04-08] MEDS: Multivitamin Vitamin B Complex (Nephro-Vite) Tab PO SCH (09:34)
[2018-04-08] MEDS: Magnesium Oxide 400 mg Tab UD PO SCH ×2 (09:34→17:25)
[2018-04-08] MEDS: Enoxaparin 30 mg Syringe SC SCH (09:35)
[2018-04-08 10:20] LABS: LYMPHOCYTE 6 % (22.0-35.0); MONOCYTE 2 % (1.0-6.0); NEUTROPHIL 92 % (50.0-70.0)
[2018-04-08] MEDS: Albuterol-Ipratrop 3 mg / 0.5 (3 ml) UD IH PRN ×2 (10:26→22:46)
[2018-04-08] MEDS: Oxycodone/Acetaminophen 5/325 mg Tab PO PRN ×2 (12:29→21:56)
--- NOTE | 2018-04-08 12:46 | CP.PCM.PN ---
Subjective - Date & Time of Evaluation Date of Evaluation: 04/08/18 Time of Evaluation: 11:40 - Subjective Subjective: I was paged by nurse to come assess patient who was complaining of shortness of breath and requesting breathing treatment. Patient is chronic CO2 retainer who is not compliant with bipap. A duoneb treatment was given and bipap was started and she began to have relief of her symptoms. Continued bipap use was encouraged especially at nighttime. Physical: seen with bipap on, not in respiratory distress, expiratory wheezing bilateral, refused to answer some questions however I know her from before and that is her baseline, no cyanosis Plan: continue bipap, inhaler regimen, scheduled and prn duoneb -discussed with primary Dr Sosa Objective - Vital Signs/Intake and Output Vital Signs (last 24 hours): Temp Pulse Resp BP Pulse Ox 97.7 F 103 H 18 153/72 H 90 L 04/08/18 06:00 04/08/18 10:46 04/08/18 06:00 04/08/18 09:34 04/08/18 06:00 Intake and Output: 04/08/18 04/08/18 06:59 18:59 Intake Total 1920 Output Total 690 1595 Balance 1230 -1595 - Medications Medications: Current Medications Acetylcysteine (Acetylcysteine 20%) 4 ml IH BIDRESP [facility] Last Admin: 04/08/18 07:57 Dose: 4 ml Albuterol/Ipratropium (Duoneb 3 Mg/0.5 Mg (3 Ml) Ud) 3 ml IH [id number] [facility]O Last Admin: 04/08/18 07:57 Dose: 3 ml Albuterol/Ipratropium (Duoneb 3 Mg/0.5 Mg (3 Ml) Ud) 3 ml IH Q2H PRN PRN Reason: Shortness of Breath Last Admin: 04/08/18 10:26 Dose: 3 ml Alprazolam (Xanax) 0.5 mg PO TID PRN; Protocol PRN Reason: Anxiety Last Admin: 04/08/18 12:30 Dose: 0.5 mg Amlodipine Besylate (Norvasc) 5 mg PO DAILY [facility] Last Admin: 04/08/18 09:34 Dose: 5 mg Aspirin (Ecotrin) 81 mg PO DAILY [facility] Last Admin: 04/08/18 09:34 Dose: 81 mg Atorvastatin Calcium (Lipitor) 10 mg PO HS [facility] Last Admin: 04/07/18 21:04 Dose: 10 mg Budesonide (Pulmicort Respules) 0.5 mg [facility] [id number] [facility] Last Admin: 04/08/18 07:57 Dose: 0.5 mg Calcium Acetate (Phoslo) 2,001 mg PO WM [facility] Last Admin: 04/08/18 12:23 Dose: 2,001 mg Ergocalciferol (Drisdol 50,000 Intl Units Cap) 1 cap PO Q7D [facility] Last Admin: 04/08/18 08:32 Dose: 1 cap Famotidine (Pepcid) 20 mg PO DAILY [facility] Last Admin: 04/08/18 09:34 Dose: 20 mg Hydralazine HCl (Apresoline) 50 mg PO BID [facility] Last Admin: 04/08/18 09:34 Dose: 50 mg Hydralazine HCl (Apresoline) 10 mg PO QID PRN PRN Reason: for sbp>170 Last Admin: 04/04/18 02:26 Dose: 10 mg Insulin Detemir (Levemir) 15 unit SC [facility] Last Admin: 04/07/18 21:32 Dose: 15 units Insulin Human Lispro (Humalog) 8 units SC [facility] Last Admin: 04/08/18 12:23 Dose: 8 units Insulin Human Regular (Humulin R Med) [facility]; Protocol Last Admin: 04/08/18 12:23 Dose: 5 unit Lorazepam (Ativan) 0.5 mg PO [facility]; Protocol Last Admin: 04/07/18 21:03 Dose: 0.5 mg Magnesium Oxide (Mag-Ox) 400 mg PO BID [facility] Last Admin: 04/08/18 09:34 Dose: 400 mg Methylprednisolone (Solu-Medrol) 40 mg IVP Q8H [facility] Last Admin: 04/08/18 12:23 Dose: 40 mg Metoprolol Tartrate (Lopressor) 25 mg PO BID [facility] Last Admin: 04/08/18 09:34 Dose: 25 mg Montelukast Sodium (Singulair) 10 mg PO [facility] Last Admin: 04/07/18 21:05 Dose: 10 mg Nicotine (Nicoderm Cq) 1 patch TD DAILY [facility] Last Admin: 04/08/18 09:35 Dose: 1 patch Oxycodone/Acetaminophen (Percocet 5/325 Mg Tab) 1 tab PO Q6H PRN PRN Reason: Pain, moderate (4-7) Stop: 04/10/18 22:32 Last Admin: 04/08/18 12:29 Dose: 1 tab Pantoprazole Sodium (Protonix Ec Tab) 20 mg PO ACB [facility] Last Admin: 04/08/18 08:33 Dose: 20 mg Roflumilast (Daliresp) 250 mcg PO DAILY [facility] Last Admin: 04/08/18 09:34 Dose: 250 mcg Sodium Chloride ([place] Nasal [place]) 0 ml NS Q2H PRN PRN Reason: Nasal congestion Vitamin B Complex/Vit C/Folic Acid (Nephro-Enrrique) 1 tab PO 0800 [facility] Last Admin: 04/08/18 09:34 Dose: 1 tab - Labs Labs: 04/08/18 06:00 04/08/18 06:00
--- NOTE | 2018-04-08 13:30 | CP.PCM.PN ---
Subjective - Date & Time of Evaluation Date of Evaluation: 04/08/18 Time of Evaluation: 09:35 - Subjective Subjective: Still with shortness of breath at rest, on BiPAP, no fevers. Objective - Vital Signs/Intake and Output Vital Signs (last 24 hours): Temp Pulse Resp BP Pulse Ox 97.1 F L 94 H 20 133/46 L 100 04/07/18 06:00 04/07/18 10:25 04/07/18 06:00 04/07/18 10:25 04/07/18 06:00 Intake and Output: 04/07/18 04/07/18 06:59 18:59 Intake Total 60 Balance 60 - Medications Medications: Current Medications Acetylcysteine (Acetylcysteine 20%) 4 ml [facility] BIDRESP [facility] Last Admin: 04/07/18 08:20 Dose: 4 ml Albuterol/Ipratropium (Duoneb 3 Mg/0.5 Mg (3 Ml) Ud) 3 ml [facility]H [id number] [facility] Last Admin: 04/07/18 13:38 Dose: 3 ml Albuterol/Ipratropium (Duoneb 3 Mg/0.5 Mg (3 Ml) Ud) 3 ml IH Q2H PRN PRN Reason: Shortness of Breath Last Admin: 04/06/18 05:40 Dose: 3 ml Alprazolam (Xanax) 0.5 mg PO TID PRN; Protocol PRN Reason: Anxiety Last Admin: 04/06/18 22:10 Dose: 0.5 mg Amlodipine Besylate (Norvasc) 5 mg PO DAILY [facility] Last Admin: 04/07/18 10:25 Dose: 5 mg Aspirin (Ecotrin) 81 mg PO DAILY [facility] Last Admin: 04/07/18 10:23 Dose: 81 mg Atorvastatin Calcium (Lipitor) 10 mg PO HS [facility] Last Admin: 04/06/18 21:02 Dose: 10 mg Budesonide (Pulmicort Respules) 0.5 mg IH [id number] [facility] Last Admin: 04/07/18 08:20 Dose: 0.5 mg Calcium Acetate (Phoslo) 2,001 mg PO WM [facility] Last Admin: 04/07/18 12:35 Dose: Not Given Enoxaparin Sodium (Lovenox) 30 mg SC DAILY [facility]; Protocol Last Admin: 04/07/18 10:23 Dose: 30 mg Ergocalciferol (Drisdol 50,000 Intl Units Cap) 1 cap PO Q7D [facility] Last Admin: 04/01/18 09:45 Dose: 1 cap Famotidine (Pepcid) 20 mg PO DAILY [facility] Last Admin: 04/07/18 10:23 Dose: 20 mg Ferrous Gluconate (Fergon) 324 mg PO DAILY [facility] Last Admin: 04/07/18 10:23 Dose: 324 mg Hydralazine HCl (Apresoline) 50 mg PO BID [facility] Last Admin: 04/07/18 10:25 Dose: 50 mg Hydralazine HCl (Apresoline) 10 mg PO QID PRN PRN Reason: for sbp>170 Last Admin: 04/04/18 02:26 Dose: 10 mg Meropenem/Sodium Chloride (Merrem Iv 500 Mg/Ns 50 Ml) 500 mg in 50 mls @ 100 mls/hr IVPB Q12 [facility]; Protocol Stop: 04/09/18 16:40 Last Admin: 04/07/18 10:22 Dose: 100 mls/hr Insulin Detemir (Levemir) 15 unit SC [facility] Last Admin: 04/06/18 21:02 Dose: 15 units Insulin Human Lispro (Humalog) 8 units SC AC [facility] Last Admin: 04/07/18 12:35 Dose: 8 units Insulin Human Regular (Humulin R Med) 0 units SC [facility]; Protocol Last Admin: 04/07/18 12:35 Dose: 5 unit Lorazepam (Ativan) 0.5 mg PO HS [facility]; Protocol Last Admin: 04/06/18 21:00 Dose: 0.5 mg Magnesium Oxide (Mag-Ox) 400 mg PO BID [facility] Last Admin: 04/07/18 10:24 Dose: 400 mg Methylprednisolone (Solu-Medrol) 40 mg IVP Q8H [facility] Last Admin: 04/07/18 12:35 Dose: 40 mg Metoprolol Tartrate (Lopressor) 25 mg PO BID [facility] Last Admin: 04/07/18 10:24 Dose: 25 mg Montelukast Sodium (Singulair) 10 mg PO HS [facility] Last Admin: 04/06/18 21:05 Dose: 10 mg Nicotine (Nicoderm Cq) 1 patch TD DAILY [facility] Last Admin: 04/07/18 10:22 Dose: 1 patch Pantoprazole Sodium (Protonix Ec Tab) 20 mg PO ACB [facility] Last Admin: 04/07/18 08:44 Dose: 20 mg Roflumilast (Daliresp) 250 mcg PO DAILY [facility] Last Admin: 04/07/18 10:23 Dose: 250 mcg Sodium Chloride ([place] Nasal [place]) 0 ml NS Q2H PRN PRN Reason: Nasal congestion Vitamin B Complex/Vit C/Folic Acid (Nephro-Enrrique) 1 tab PO 0800 [facility] Last Admin: 04/07/18 08:44 Dose: 1 tab - Labs Labs: 04/07/18 06:00 04/07/18 06:00 - Constitutional Appears: Chronically Ill - Head Exam Head Exam: NORMAL INSPECTION - Respiratory Exam Respiratory Exam: Decreased Breath Sounds - Cardiovascular Exam Cardiovascular Exam: +S1, +S2 - GI/Abdominal Exam GI & Abdominal Exam: Soft. 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
[2018-04-08] MEDS ORDERED: Bisacodyl 5mg EC Tab PO ONE (14:46)
--- NOTE | 2018-04-08 19:18 | PN ---
DATE: 04/08/2018 This is [facility] visit on the medical floor. For Dr. Gleason. SUBJECTIVE: The patient is a 57-year-old female admitted by the emergency room for respiratory distress, eventually intubated, now extubated with the patient known to suffer chronic kidney disease with anemic indices. At present, she is sitting up in bed her legs with her family members at the bedside. She denies any pain, but has significant difficulty with hearing. PHYSICAL EXAMINATION: VITAL SIGNS: Temperature 97.9, pulse 99, respirations 18, blood pressure 153/72 and pulse oximetry of 90%. HEENT: Unremarkable. Decreased hearing. NECK: Supple. HEART: Regular rate. LUNGS: Decreased breath sounds on the right, rare rhonchi. ABDOMEN: Obese, soft and nontender. EXTREMITIES: +1 edema of the feet, bilateral +1 edema of the hands bilateral. NEUROLOGIC: Awake and alert with difficulty hearing. LABORATORY DATA: The patient's labs were done, white blood cell count 4.5, hemoglobin 7.7, hematocrit 26.3 and platelet count 262,000. With a metabolic panel showing a BUN of 123, creatinine of 3.4 and nonfasting glucose 277. ASSESSMENT: For this patient, respiratory failure, status post intubation, then extubation, chronic obstructive pulmonary disease, pneumonia, diabetes mellitus, history of breast cancer, anemia of chronic kidney disease, effective disorder noncompliant, chronic anxiety and chronic back pain. PLAN: For this patient, conversation with Dr. Gleason, is to continue to present medical regimen. We will again give IV iron as indicated, as per Nephrology Dr. Chatman reports that erythropoietin level was within therapeutic range, otherwise Aranesp may be considered as oppose to transfusing blood at this time. The patient will be monitored clinically with labs. This is a complex patient with a comprehensive medically necessary and appropriate visit carried out in excess of 20 minutes with the patient's family's questions answered to her satisfaction. Juan Jose Valles MD [facility] # [id number]
[2018-04-08] MEDS: Insulin Detemir 100 units/ml Vial (Levemir) SC SCH (21:52)
--- NOTE | 2018-04-08 22:46 | PN ---
DATE: 04/08/2018 PULMONARY PROGRESS NOTE REFERRING PHYSICIAN: Sloan Sosa MD SUBJECTIVE: She is out of bed to chair, not eating well. No bowel movement today. Still has a cough. Unable to clear pulmonary secretions. Used BiPAP for an hour or so today. No nausea, no vomiting. No leg pain. Does have leg swelling. OBJECTIVE: GENERAL: Sitting up in a chair. VITAL SIGNS: Temperature is 98, heart rate 103, respiratory rate is 28, blood pressure 153/72, pulse ox 95% on nasal cannula. HEENT: Moist mucous membranes. Crowded airway. NECK: Supple. No JVD. LUNGS: Have scattered rhonchi and wheezing. Decreased breath sounds in the right lung. HEART: S1 and S2. ABDOMEN: Soft, mildly distended. EXTREMITIES: Has some edema. NEUROLOGIC: Alert, awake, and does follows simple commands. MEDICATIONS: She is on Mucomyst inhaled twice a day, hydralazine 10 mg 4 times a day p.r.n., lorazepam 0.5 mg at bedtime, Daliresp 50 mg daily, vitamin D 50,000 International Units weekly, DuoNeb every 2 hours p.r.n. and every 6 hours [id number], Ecotrin 81 mg daily, insulin coverage, Levemir 50 units subcu at bedtime, Lipitor 10 mg at bedtime, magnesium oxide 400 mg twice a day, vitamin B complex 1 tablet daily, Nicoderm patch daily, Norvasc 5 mg daily, Percocet 5/325 one tablet every 6 hours p.r.n., Protonix 20 mg before breakfast, Pulmicort inhaled twice a day, Singulair 10 mg daily, Solu-Medrol 40 mg every 8 hours, Xanax 0.5 mg three times a day p.r.n. LABORATORY DATA: Shows hemoglobin 7.7, hematocrit 26.3, WBC 4.5, platelets 262. Sodium 146, potassium 4.1, chloride 105, bicarbonate 32, BUN 0.23, creatinine 3.4, glucose 252, calcium 9.2, AST 27, ALT 50, alk phos is 81. Albumin 3.6. IMPRESSION AND PLAN: Respiratory failure with hypoventilation syndrome and CO2 retention and hypoxemia, extensive mucous plugging of both lungs, especially in the right with atelectasis, history of breast cancer, pneumonia, diabetes, recurrent urinary tract infection, may have sleep apnea syndrome, refusing to use continuous positive airway pressure and bilevel positive airway pressure, not very compliant with nebulizer treatment. We will decrease Solu-Medrol to 40 and see how she does. Continue antibiotics. Incentive spirometer chest therapy. Cardiology, Nephrology followup. Overall, poor prognosis. Thank you and we will follow with you. Lisa Rucker MD
[2018-04-09] MEDS: Albuterol-Ipratrop 3 mg / 0.5 (3 ml) UD IH SCH ×4 (01:12→19:35)
[2018-04-09] MEDS: Albuterol-Ipratrop 3 mg / 0.5 (3 ml) UD IH PRN (04:19)
[2018-04-09 06:48] LABS: ALB/GLOB RATIO 1.4 (1.1-1.8); ALBUMIN 3.3 g/dL (3.0-4.8); CALCIUM 9.7 mg/dL (8.4-10.5)
[2018-04-09] MEDS: Acetylcysteine 20% Inhal Soln (4ml) IH SCH ×2 (07:33→19:35)
[2018-04-09] MEDS: Budesonide 0.5 mg/2 ml Inhal Susp UD IH SCH ×2 (07:33→19:35)
[2018-04-09 07:40] LABS: GRAN # 6.13 (1.4-6.5); GRAN % 93.3 % (50.0-68.0); LYMPH # 0.3 (1.2-3.4); LYMPH % 5.2 % (22.0-35.0); MEAN CORPUSCULAR HEMOGLOBIN 28.1 pg (25.0-35.0); MEAN CORPUSCULAR HGB CONC 29.3 g/dl (31.0-37.0); MEAN PLATELET VOLUME 11.5 fl (7.0-11.0); MONO # 0.1 (0.1-0.6); MONO % 1.5 % (1.0-6.0); RBC 2.49 10^6/uL (3.5-6.1); RED CELL DISTRIBUTION WIDTH 19.6 % (11.5-14.5); WHITE BLOOD COUNT 6.6 10^3/uL (4.5-11.0)
[2018-04-09] MEDS: Pantoprazole 20 mg EC Tab PO SCH (08:36)
[2018-04-09] MEDS: Multivitamin Vitamin B Complex (Nephro-Vite) Tab PO SCH (08:36)
[2018-04-09] MEDS: Insulin Reg-MEDIUM-Coverage SC SCH ×5 (08:37→21:33)
[2018-04-09] MEDS: Insulin Lispro 1 UNITS/0.01 ML SC SCH ×4 (08:37→17:30)
[2018-04-09] MEDS: MethylPREDNISolone 40 mg Vial IVP SCH ×2 (09:11→21:29)
[2018-04-09] MEDS: Magnesium Oxide 400 mg Tab UD PO SCH ×2 (09:12→17:31)
[2018-04-09] MEDS: Oxycodone/Acetaminophen 5/325 mg Tab PO PRN ×2 (09:44→18:32)
--- NOTE | 2018-04-09 11:29 | CP.PCM.PN ---
Subjective - Date & Time of Evaluation Date of Evaluation: 04/09/18 Time of Evaluation: 09:30 - Subjective Subjective: Not in distress but still having shortness of breath at rest, no fevers. Objective - Vital Signs/Intake and Output Vital Signs (last 24 hours): Temp Pulse Resp BP Pulse Ox 97.7 F 103 H 18 153/72 H 90 L 04/08/18 06:00 04/08/18 10:46 04/08/18 06:00 04/08/18 09:34 04/08/18 06:00 Intake and Output: 04/08/18 04/08/18 06:59 18:59 Intake Total 1920 Output Total 690 1595 Balance 1230 -1595 - Medications Medications: Current Medications Acetylcysteine (Acetylcysteine 20%) 4 ml IH BIDRESP [facility] Last Admin: 04/08/18 07:57 Dose: 4 ml Albuterol/Ipratropium (Duoneb 3 Mg/0.5 Mg (3 Ml) Ud) 3 ml IH [id number] [facility] Last Admin: 04/08/18 07:57 Dose: 3 ml Albuterol/Ipratropium (Duoneb 3 Mg/0.5 Mg (3 Ml) Ud) 3 ml IH Q2H PRN PRN Reason: Shortness of Breath Last Admin: 04/08/18 10:26 Dose: 3 ml Alprazolam (Xanax) 0.5 mg PO TID PRN; Protocol PRN Reason: Anxiety Last Admin: 04/08/18 12:30 Dose: 0.5 mg Amlodipine Besylate (Norvasc) 5 mg PO DAILY [facility] Last Admin: 04/08/18 09:34 Dose: 5 mg Aspirin (Ecotrin) 81 mg PO DAILY [facility] Last Admin: 04/08/18 09:34 Dose: 81 mg Atorvastatin Calcium (Lipitor) 10 mg PO HS [facility] Last Admin: 04/07/18 21:04 Dose: 10 mg Budesonide (Pulmicort Respules) 0.5 mg IH [id number] [facility] Last Admin: 04/08/18 07:57 Dose: 0.5 mg Calcium Acetate (Phoslo) 2,001 mg PO WM [facility] Last Admin: 04/08/18 12:23 Dose: 2,001 mg Ergocalciferol (Drisdol 50,000 Intl Units Cap) 1 cap PO Q7D [facility] Last Admin: 04/08/18 08:32 Dose: 1 cap Famotidine (Pepcid) 20 mg PO DAILY [facility] Last Admin: 04/08/18 09:34 Dose: 20 mg Hydralazine HCl (Apresoline) 50 mg PO BID [facility] Last Admin: 04/08/18 09:34 Dose: 50 mg Hydralazine HCl (Apresoline) 10 mg PO QID PRN PRN Reason: for sbp>170 Last Admin: 04/04/18 02:26 Dose: 10 mg Insulin Detemir (Levemir) 15 unit SC [facility] Last Admin: 04/07/18 21:32 Dose: 15 units Insulin Human Lispro (Humalog) 8 units SC [facility] Last Admin: 04/08/18 12:23 Dose: 8 units Insulin Human Regular (Humulin R Med) 0 units SC [facility]; Protocol Last Admin: 04/08/18 12:23 Dose: 5 unit Lorazepam (Ativan) 0.5 mg PO [facility]; Protocol Last Admin: 04/07/18 21:03 Dose: 0.5 mg Magnesium Oxide (Mag-Ox) 400 mg PO BID [facility] Last Admin: 04/08/18 09:34 Dose: 400 mg Methylprednisolone (Solu-Medrol) 40 mg IVP Q8H [facility] Last Admin: 04/08/18 12:23 Dose: 40 mg Metoprolol Tartrate (Lopressor) 25 mg PO BID [facility] Last Admin: 04/08/18 09:34 Dose: 25 mg Montelukast Sodium (Singulair) 10 mg PO [facility] Last Admin: 04/07/18 21:05 Dose: 10 mg Nicotine (Nicoderm Cq) 1 patch TD DAILY [facility] Last Admin: 04/08/18 09:35 Dose: 1 patch Oxycodone/Acetaminophen (Percocet 5/325 Mg Tab) 1 tab PO Q6H PRN PRN Reason: Pain, moderate (4-7) Stop: 04/10/18 22:32 Last Admin: 04/08/18 12:29 Dose: 1 tab Pantoprazole Sodium (Protonix Ec Tab) 20 mg PO ACB [facility] Last Admin: 04/08/18 08:33 Dose: 20 mg Roflumilast (Daliresp) 250 mcg PO DAILY [facility] Last Admin: 04/08/18 09:34 Dose: 250 mcg Sodium Chloride ([place] Nasal [place]) 0 ml NS Q2H PRN PRN Reason: Nasal congestion Vitamin B Complex/Vit C/Folic Acid (Nephro-Enrrique) 1 tab PO 0800 [facility] Last Admin: 04/08/18 09:34 Dose: 1 tab - Labs Labs: 04/08/18 06:00 04/08/18 06:00 - Constitutional Appears: Chronically Ill - Head Exam Head Exam: NORMAL INSPECTION - Respiratory Exam Respiratory Exam: Decreased Breath Sounds - Cardiovascular Exam Cardiovascular Exam: +S1, +S2 - GI/Abdominal Exam GI & Abdominal Exam: Soft. 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
--- NOTE | 2018-04-09 12:48 | CP.PCM.PN ---
Subjective - Date & Time of Evaluation Date of Evaluation: 04/09/18 Time of Evaluation: 12:47 - Subjective Subjective: Nephrology Consultation Note: Assessment: stable DAHLIA likely ATN, non-oliguric acute on chronc respi acidosis with respi failure with renal compensation rt large pleural effusion with chest wall mass ? malignant (hx of breast CA) Diabetic chronic Kidney Disease (E11.22) Hypertensive Chronic Kidney Disease (I12.9) Chronic Kidney Disease (N18.3) Stage 3 with 1200 mg proteinuria and 400 mg albuminuria (R80.9) likely due to DM/HTN Anemia (D64.9) hyperphosphatemia COPD/asthma, active smoker, breast cancer s/p surgery 2 years ago active smoker Plan No acute need for renal replacement therapy at this time but may need soon and will need close follow up. overall poor prognosis, seen by palliative care Hypertension control with meds as ordered. Maintain hemodynamics stable. Avoid hypotension. Patient not on ACEI/ARB due to low BP and hyperkalemia. started on lopressor by cardiology. added norvasc Monitor Input/Output, daily weights and renal function with basic metabolic panel low K diet low Phos diet, added phos binders will defer use of [place] to heme/onc in view of her recent breast malignancy with concerns for mets started iron, MVI and weekly Vit D CXR 04/06: no pulm congestion. has small Rt pleural effusion with infiltrate. BUN was rising, will hold diuretics for now supplement lytes as needed seen by cardio heme/onc and pulmonary Dose meds/antibiotics for reduced GFR. Avoid fleets enema/magnesium based laxati ves. Avoid nephrotoxins/NSAIDs/ iodinated contrast (unless needed emergently) Glycemic control. pt need to stop smoking Further work up/management as per primary team Thanks for allowing me to participate in care of your patient. Will follow patient with you. Please call if any Qs. had d/w team Dr Marco Antonio Chatman Office: [phone] Chief Complaint; SOB Reason for consult: CKD 3 HPI: Pt is a 57 F with hx of diabetes Mellitus ( years), hypertension (years) CO PD/asthma, active smoker, breast cancer s/p surgery 2 years ago but didn't complete treatment now with mets, anemia, CKD stage 3 with baseline cr 1.8 mg/dL admitted with acute respi distress hypercapnic respi failure and intubated, now seen for CKD management Denies OTC/herbal meds or NSAIDs No recent iodinated contrast exposure. Noted obvious episodes of low BP. ROS: pt is a poor historian and overall hx is limited from her. not much interactive. says I want to go home Physical Examination: General Appearance: stable appearing. on o2 Vitals reviewed and noted as below Head; Atraumatic, normocephalic ENT: no ulcers no thrush. Tongue is midline. Oropharynx: no rash or ulcers. she is hard of hearing EYES: Pupils are equal, round and reactive to light accommodation. Eye muscles and extraocular movement intact. Sclera is anicteric. has periorbital puffiness Neck; supple no lymphadenopathy, no thyromegaly or bruit Lungs: Improved respiratory rate/effort. Breath sounds reduced at base with b/l wheezing Heart: normal rate. s1s2 normal. No rub or gallop. Extremities: 1-2+ edema. No varicose veins Neurological: Patient is alert, awake and oriented to person, place and time. No focal deficit. Strength bilateral appropriate and equal Skin: Warm and dry. Normal turgor. No rash. Palpitation: Normal elasticity for age Abdomen: Abdomen is soft. Bowel sounds +. There is no abdominal tenderness, no guarding/rigidity no organomegaly Psych: lack insight and flat affect/mood MSK: no joint tenderness or swelling. Digits and nails normal, no deformity : kidney or bladder not palpable Labs/imaging reviewed. Past medical history, past surgical history, family history, social history, allergy reviewed and noted as below Family hx: no hx of CKD. Rest non-contributory renal imaging: b/l cysts echo normal LVEF TSAt 26% ferritin 45 Serum FLC assay WNL ABDIRIZAK neg PTH 154 Vit D 17 Objective - Vital Signs/Intake and Output Vital Signs (last 24 hours): Temp Pulse Resp BP Pulse Ox 97.8 F 95 H 20 142/50 L 90 L 04/09/18 09:04 04/09/18 09:12 04/09/18 09:04 04/09/18 09:12 04/09/18 09:04 Intake and Output: 04/09/18 04/09/18 06:59 18:59 Intake Total 1260 Output Total 1000 Balance 260 - Medications Medications: Current Medications Acetylcysteine (Acetylcysteine 20%) 4 ml IH BIDRESP [facility] Last Admin: 04/09/18 07:33 Dose: 4 ml Albuterol/Ipratropium (Duoneb 3 Mg/0.5 Mg (3 Ml) Ud) 3 ml IH [id number] [facility] Last Admin: 04/09/18 07:33 Dose: 3 ml Albuterol/Ipratropium (Duoneb 3 Mg/0.5 Mg (3 Ml) Ud) 3 ml IH Q2H PRN PRN Reason: Shortness of Breath Last Admin: 04/09/18 04:19 Dose: 3 ml Alprazolam (Xanax) 0.5 mg PO TID PRN; Protocol PRN Reason: Anxiety Last Admin: 04/09/18 09:11 Dose: 0.5 mg Amlodipine Besylate (Norvasc) 5 mg PO DAILY [facility] Last Admin: 04/09/18 09:12 Dose: 5 mg Aspirin (Ecotrin) 81 mg PO DAILY [facility] Last Admin: 04/09/18 09:11 Dose: 81 mg Atorvastatin Calcium (Lipitor) 10 mg PO HS [facility] Last Admin: 04/08/18 21:53 Dose: 10 mg Budesonide (Pulmicort Respules) 0.5 mg IH [id number] [facility] Last Admin: 04/09/18 07:33 Dose: 0.5 mg Calcium Acetate (Phoslo) 2,001 mg PO WM [facility] Last Admin: 04/09/18 11:59 Dose: 2,001 mg Ergocalciferol (Drisdol 50,000 Intl Units Cap) 1 cap PO Q7D [facility] Last Admin: 04/08/18 08:32 Dose: 1 cap Famotidine (Pepcid) 20 mg PO DAILY [facility] Last Admin: 04/09/18 09:11 Dose: 20 mg Heparin Sodium (Porcine) (Heparin) 5,000 units SC Q12 [facility]; Protocol Hydralazine HCl (Apresoline) 50 mg PO BID [facility] Last Admin: 04/09/18 09:12 Dose: 50 mg Hydralazine HCl (Apresoline) 10 mg PO QID PRN PRN Reason: for sbp>170 Last Admin: 04/04/18 02:26 Dose: 10 mg Insulin Detemir (Levemir) 15 unit SC [facility] Last Admin: 01/20/19 21:52 Dose: 15 units Insulin Human Lispro (Humalog) 8 units SC AC [facility] Last Admin: 04/09/18 11:59 Dose: 8 units Insulin Human Regular (Humulin R Med) 0 units SC ACHS [facility]; Protocol Last Admin: 04/09/18 11:59 Dose: 7 unit Lorazepam (Ativan) 0.5 mg PO HS [facility]; Protocol Last Admin: 04/08/18 21:51 Dose: 0.5 mg Magnesium Oxide (Mag-Ox) 400 mg PO BID [facility] Last Admin: 04/09/18 09:12 Dose: 400 mg Methylprednisolone (Solu-Medrol) 40 mg IVP Q12 [facility] Last Admin: 04/09/18 09:11 Dose: 40 mg Metoprolol Tartrate (Lopressor) 25 mg PO BID [facility] Last Admin: 04/09/18 09:12 Dose: 25 mg Montelukast Sodium (Singulair) 10 mg PO HS [facility] Last Admin: 04/08/18 21:53 Dose: 10 mg Nicotine (Nicoderm Cq) 1 patch TD DAILY [facility] Last Admin: 04/09/18 09:11 Dose: 1 patch Oxycodone/Acetaminophen (Percocet 5/325 Mg Tab) 1 tab PO Q6H PRN PRN Reason: Pain, moderate (4-7) Stop: 04/10/18 22:32 Last Admin: 04/09/18 09:44 Dose: 1 tab Pantoprazole Sodium (Protonix Ec Tab) 20 mg PO ACB [facility] Last Admin: 04/09/18 08:36 Dose: 20 mg Roflumilast (Daliresp) 250 mcg PO DAILY [facility] Last Admin: 04/09/18 09:11 Dose: 250 mcg Sodium Chloride ([place] Nasal [place]) 0 ml NS Q2H PRN PRN Reason: Nasal congestion Vitamin B Complex/Vit C/Folic Acid (Nephro-Enrrique) 1 tab PO 0800 [facility] Last Admin: 04/09/18 08:36 Dose: 1 tab - Labs Labs: 04/09/18 06:00 04/09/18 06:00
--- NOTE | 2018-04-09 13:04 | PN ---
DATE: 04/09/2018 PULMONARY PROGRESS NOTE REFERRING PHYSICIAN: Sloan Sosa MD SUBJECTIVE: The patient is sitting up in bed. No acute distress. No overnight events reported. The patient reports still having occasional cough. No headache, rhinitis, chest pain, abdominal pain, nausea, vomiting, diarrhea or leg pain reported. The patient does report occasional shortness of breath with exertion. OBJECTIVE: GENERAL: No acute distress. VITAL SIGNS: Blood pressure 142/50, pulse 95, temperature 97.8, oxygen saturation 90%. HEENT: Moist mucous membranes. Crowded airway. NECK: Supple. No JVD. LUNGS: Scattered rhonchi bilaterally, decreased breath sounds on the right. CARDIOVASCULAR: S1 and S2 audible. ABDOMEN: Soft. No distention. No organomegaly. EXTREMITIES: Bilateral extremity edema. NEUROLOGIC: Awake, alert and verbal. Follows commands. MEDICATIONS: Reviewed. Mucomyst 4 mL inhalation twice a day, DuoNeb 3 mL inhalation every 2 hours p.r.n., DuoNeb 3 mL inhalation every 6 hours, Xanax 0.5 mg 3 times a day p.r.n., Norvasc 5 mg daily, aspirin 81 mg daily, Lipitor 10 mg at bedtime, Pulmicort 0.5 mg inhalation every 12 hours, calcium acetate 2001 mg Monday and Monday, ergocalciferol 50, 000 units weekly, Pepcid 20 mg daily, hydralazine 10 mg 4 times a day p.r.n., hydralazine 15 mg twice a day, Levemir 15 units subcutaneously at bedtime, Humalog 8 units subcutaneously a.c., Humulin R sliding scale a.c. and at bedtime, Ativan 0.5 mg p.o. at bedtime, magnesium oxide 400 mg twice a day, Solu-Medrol 40 mg every 12 hours, metoprolol tartrate 25 mg twice a day, Singulair 10 mg at bedtime, nicotine patch transdermally daily, Percocet 5/325 mg one tab every 6 hours p.r.n., Protonix 40mg in the morning, Daliresp 250 mcg daily, [place] nasal spray every 2 hours p.r.n. and Nephro-Enrrique one tab daily. LABORATORY DATA: Reviewed. WBC 6.6, RBC 2.49, hemoglobin 7, hematocrit 23.9 and platelets 251. Sodium 145, potassium 4.0, chloride 106, carbon dioxide 33, anion gap 10, BUN 119, creatinine 3.1, GFR is 15, POC glucose, random glucose 248 and calcium 9.7, total bilirubin 0.4, AST 29, ALT 39, alkaline phosphatase 64, total protein 5.6, albumin 3.3, globulin 2.3 and albumin-globulin ratio 1.4. IMPRESSION AND PLAN: Respiratory failure with hypoventilation syndrome, CO2 retention, hypoxemia, extensive mucous plugging of both lungs, especially in the right with atelectasis, history of breast cancer, pneumonia, diabetes, recurrent urinary tract infection, suspected sleep apnea syndrome. The patient refuses to use continuous positive airway pressure machine, we will continue to encourage. Continue steroids, inhaled bronchodilators, antibiotic therapy, incentive spirometry, chest physiotherapy, continue pulmonary toileting, out of bed to chair is tolerated. Cardiology followup. Nephrology followup. Overall prognosis is poor. This patient was seen and examined with Dr. Rucker. Discussed the assessment and plan as described above. Thank you for this consult. We will follow with you. Didier Dennis APN Lisa Rucker MD [facility]
[2018-04-09] MEDS ORDERED: MethylPREDNISolone 40 mg Vial IVP SCH (15:31)
--- NOTE | 2018-04-09 16:55 | PN ---
DATE: 04/09/2018 REASON FOR CONSULTATION AND FOLLOWUP: Cardiac evaluation; congestive heart failure; exacerbation of COPD; respiratory distress, improved; large pleural effusion; acute kidney injury; and chronic renal insufficiency. SUBJECTIVE: The patient denies any chest pain, shortness of breath, or any palpitation. OBJECTIVE: GENERAL: Not in distress, lying flat on the bed. VITAL SIGNS: Temperature afebrile, heart rate 95, and blood pressure 142/50. HEENT: PERRLA. Extraocular muscles intact. NECK: Supple. No carotid bruits or thyromegaly. CHEST: Clear to auscultation. HEART: S1 and S2 regular. ABDOMEN: Soft. EXTREMITIES: Clubbing and cyanosis negative. LABORATORY DATA: Blood workup as follows; WBC 6.3, hemoglobin 7, hematocrit 23.9, and platelet count 251. Chemistry shows sodium 145, potassium 4, chloride 106, carbon dioxide 23, anion gap of 10, BUN 119, and creatinine 3.1. IMPRESSION: A 57-year-old female with past medical history significant for tobacco abuse, history of asthma, chronic obstructive pulmonary disease, anxiety disorder, history of chronic back pain, narcotic dependent, type 2 diabetes, history of recurrent urinary tract infection, and chronic kidney disease; admitted with pneumonia, shortness of breath, and large pleural effusion. Recent echo shows preserved left ventricular fraction, calculated ejection fraction of 63%, history of chronic kidney disease, on acute kidney injury, and history of pneumonia. The patient had echocardiography on 07/28/2017 and the repeat echo recently on 03/09/2018 revealed normal left ventricular function, normal mitral valve structure, mitral regurgitation, and mild ejection fraction 63%. Prior to that, the patient had an echo on 07/28/2017 that shows preserved left ventricular function, ejection fraction 55%, trace mitral regurgitation, and trace tricuspid regurgitation. RECOMMENDATIONS: Continue antihypertensive medication; avoid nephrotoxic medication. Pressure is controlled 140/50 this morning, on 50 mg of hydralazine twice a day. Continue low-dose beta brendon, metoprolol, and amlodipine. We will follow with you. We will put DVT prophylaxis. Thank you Dr. Sosa for providing us the opportunity in taking care of the patient, Yazmin Granado. Lisa Hernandez MD [facility] # [id number]
[2018-04-09] MEDS: Insulin Detemir 100 units/ml Vial (Levemir) SC SCH (21:30)
[2018-04-10] MEDS: Albuterol-Ipratrop 3 mg / 0.5 (3 ml) UD IH SCH ×2 (02:11→07:06)
[2018-04-10] MEDS: MethylPREDNISolone 40 mg Vial IVP SCH (06:00)
[2018-04-10] MEDS: Oxycodone/Acetaminophen 5/325 mg Tab PO PRN (06:26)
--- NOTE | 2018-04-10 06:55 | CP.PCM.PN ---
Subjective - Date & Time of Evaluation Date of Evaluation: 04/10/18 Time of Evaluation: 06:25 - Subjective Subjective: Awake, alert, sitting side of bed, no distress Reason for consultation and follow up:cardiac evaluation of shortness of breath,admitted for respiratory failure post intubation, exacerbation of COPD, history of congestive heart failure, improved large pleural effusion, acute kidney injury, chronic renal insufficiency. Seen and examined by me and Dr. Hernandez Objective - Vital Signs/Intake and Output Vital Signs (last 24 hours): Temp Pulse Resp BP Pulse Ox 98.2 F 93 H 20 139/56 L 90 L 04/09/18 16:20 04/10/18 06:00 04/09/18 16:20 04/09/18 18:40 04/09/18 16:20 - Medications Medications: Current Medications Acetylcysteine (Acetylcysteine 20%) 4 ml IH BIDRESP [facility] Last Admin: 04/09/18 19:35 Dose: 4 ml Albuterol/Ipratropium (Duoneb 3 Mg/0.5 Mg (3 Ml) Ud) 3 ml IH [id number] [facility] Last Admin: 04/10/18 02:11 Dose: 3 ml Albuterol/Ipratropium (Duoneb 3 Mg/0.5 Mg (3 Ml) Ud) 3 ml IH Q2H PRN PRN Reason: Shortness of Breath Last Admin: 04/09/18 04:19 Dose: 3 ml Alprazolam (Xanax) 0.5 mg PO TID PRN; Protocol PRN Reason: Anxiety Last Admin: 04/09/18 18:32 Dose: 0.5 mg Amlodipine Besylate (Norvasc) 5 mg PO DAILY [facility] Last Admin: 04/09/18 09:12 Dose: 5 mg Aspirin (Ecotrin) 81 mg PO DAILY [facility] Last Admin: 04/09/18 09:11 Dose: 81 mg Atorvastatin Calcium (Lipitor) 10 mg PO HS [facility] Last Admin: 04/09/18 21:30 Dose: 10 mg Budesonide (Pulmicort Respules) 0.5 mg IH [id number] [facility] Last Admin: 04/09/18 19:35 Dose: 0.5 mg Calcium Acetate (Phoslo) 2,001 mg PO WM [facility] Last Admin: 04/09/18 17:31 Dose: 2,001 mg Ergocalciferol (Drisdol 50,000 Intl Units Cap) 1 cap PO Q7D [facility] Last Admin: 04/08/18 08:32 Dose: 1 cap Famotidine (Pepcid) 20 mg PO DAILY [facility] Last Admin: 04/09/18 09:11 Dose: 20 mg Heparin Sodium (Porcine) (Heparin) 5,000 units SC Q12 [facility]; Protocol Last Admin: 04/09/18 21:30 Dose: 5,000 units Hydralazine HCl (Apresoline) 50 mg PO BID [facility] Last Admin: 04/09/18 17:28 Dose: 50 mg Hydralazine HCl (Apresoline) 10 mg PO QID PRN PRN Reason: for sbp>170 Last Admin: 04/04/18 02:26 Dose: 10 mg Insulin Detemir (Levemir) 15 unit SC HS [facility] Last Admin: 04/09/18 21:30 Dose: 15 units Insulin Human Lispro (Humalog) 8 units SC AC [facility] Last Admin: 04/09/18 17:30 Dose: 8 units Insulin Human Regular (Humulin R Med) 0 units SC [facility]; Protocol Last Admin: 04/09/18 21:33 Dose: Not Given Lorazepam (Ativan) 0.5 mg PO HS [facility]; Protocol Last Admin: 04/09/18 21:30 Dose: 0.5 mg Magnesium Oxide (Mag-Ox) 400 mg PO BID [facility] Last Admin: 04/09/18 17:31 Dose: 400 mg Methylprednisolone (Solu-Medrol) 30 mg IVP Q8 [facility] Last Admin: 04/10/18 06:00 Dose: 30 mg Metoprolol Tartrate (Lopressor) 25 mg PO BID [facility] Last Admin: 04/09/18 17:32 Dose: 25 mg Montelukast Sodium (Singulair) 10 mg PO HS [facility] Last Admin: 04/09/18 21:30 Dose: 10 mg Nicotine (Nicoderm Cq) 1 patch TD DAILY [facility] Last Admin: 04/09/18 09:11 Dose: 1 patch Oxycodone/Acetaminophen (Percocet 5/325 Mg Tab) 1 tab PO Q6H PRN PRN Reason: Pain, moderate (4-7) Stop: 04/10/18 22:32 Last Admin: 04/10/18 06:26 Dose: 1 tab Pantoprazole Sodium (Protonix Ec Tab) 20 mg PO ACB [facility] Last Admin: 04/09/18 08:36 Dose: 20 mg Roflumilast (Daliresp) 250 mcg PO DAILY [facility] Last Admin: 04/09/18 09:11 Dose: 250 mcg Sodium Chloride ([place] Nasal [place]) 0 ml NS Q2H PRN PRN Reason: Nasal congestion Vitamin B Complex/Vit C/Folic Acid (Nephro-Enrrique) 1 tab PO 0800 [facility] Last Admin: 04/09/18 08:36 Dose: 1 tab - Labs Labs: 04/09/18 06:00 04/09/18 06:00 - Constitutional Appears: Non-toxic, No Acute Distress - Head Exam Head Exam: NORMAL INSPECTION, NORMOCEPHALIC - ENT Exam ENT Exam: Mucous Membranes Moist Additional comments: hard of hearing - Neck Exam Neck Exam: Full ROM, Normal Inspection - Respiratory Exam Respiratory Exam: Decreased Breath Sounds, Rhonchi, NORMAL BREATHING PATTERN - Cardiovascular Exam Cardiovascular Exam: REGULAR RHYTHM, +S1, +S2 Additional comments: Telemetry NSR 70's - GI/Abdominal Exam GI & Abdominal Exam: Soft, Normal Bowel Sounds - Extremities Exam Extremities Exam: Full ROM Additional comments: 2+ edema - Neurological Exam Neurological Exam: Alert, Awake, Oriented x3 - Psychiatric Exam Psychiatric exam: Normal Affect, Normal Mood - Skin Skin Exam: Dry, Normal Color, Warm Assessment and Plan - Assessment and Plan (Free Text) Assessment: A 57 year old female who came to the ER due to respiratory distress. She was intubated and admitted in ICU. History of COPD, asthma, breast cancer 2 years ago but did not complete treatment regimen. anxiety, chronic back pain,narcotic dependent IDDM, and recurrent urinary tract infection, tobacco abuse, chronic kidney disease,acute kidney injury, renal on consult. Admitted for pneumonia and large pleural effusion. pulmonary on consult. Echo on 03/09/18 showed normal LV function, LVEF 53%. Extubated and stabilized and now transferred to telemetry. Cardiac status stable. Plan: No distress, hard of hearing Cardiac status stable Heart rate and blood pressure controlled On Norvasc 5 mg daily,ASA 81 mg daily,Lipitor 10 mg daily, Hydralazine 50 mg BID,Solumedrol 30 mg IV every 8 hours, Lopressor 25 mg BID, Nocoderm patch, Continue current treatment Continue current medications Will follow up plan and treatment discussed with Dr. Hernandez
[2018-04-10] MEDS: Acetylcysteine 20% Inhal Soln (4ml) IH SCH (07:04)
[2018-04-10 07:52] VITALS: BP 150/62; RESP 22; TEMP 97.8; O2SAT 89
[2018-04-10] MEDS: Insulin Lispro 1 UNITS/0.01 ML SC SCH ×2 (08:15→12:00)
[2018-04-10] MEDS: Insulin Reg-MEDIUM-Coverage SC SCH ×2 (08:15→12:00)
[2018-04-10] MEDS: Multivitamin Vitamin B Complex (Nephro-Vite) Tab PO SCH (08:18)
[2018-04-10] MEDS: Pantoprazole 20 mg EC Tab PO SCH (08:19)
[2018-04-10 09:14] LABS: HEMOGLOBIN 7.4 g/dL (12.0-16.0); MEAN CELL VOLUME 97.3 fl (80.0-105.0); MEAN CORPUSCULAR HEMOGLOBIN 28.1 pg (25.0-35.0); MEAN CORPUSCULAR HGB CONC 28.9 g/dl (31.0-37.0); MEAN PLATELET VOLUME 10.9 fl (7.0-11.0); RBC 2.63 10^6/uL (3.5-6.1); RED CELL DISTRIBUTION WIDTH 20.1 % (11.5-14.5); WHITE BLOOD COUNT 7.5 10^3/uL (4.5-11.0)
[2018-04-10 09:18] LABS: CALCIUM 9.9 mg/dL (8.4-10.5)
[2018-04-10] MEDS: Magnesium Oxide 400 mg Tab UD PO SCH (09:27)
--- NOTE | 2018-04-10 09:50 | CP.PCM.PN ---
Subjective - Date & Time of Evaluation Date of Evaluation: 04/10/18 Time of Evaluation: 09:41 - Subjective Subjective: PGY-2 heme/onc progress note for Dr Gleason No acute events noted overnight. We came to see patient however patient refused to talk and had already signed out AMA. Objective - Vital Signs/Intake and Output Vital Signs (last 24 hours): Temp Pulse Resp BP Pulse Ox 97.8 F 95 H 22 150/62 89 L 04/10/18 07:52 04/10/18 09:28 04/10/18 07:52 04/10/18 09:28 04/10/18 07:52 Intake and Output: 04/10/18 04/10/18 06:59 18:59 Intake Total 360 Output Total 770 Balance -410 - Medications Medications: Current Medications Acetylcysteine (Acetylcysteine 20%) 4 ml IH BIDRESP [facility] Last Admin: 04/10/18 07:04 Dose: 4 ml Albuterol/Ipratropium (Duoneb 3 Mg/0.5 Mg (3 Ml) Ud) 3 ml IH [id number] [facility] Last Admin: 04/10/18 07:06 Dose: 3 ml Albuterol/Ipratropium (Duoneb 3 Mg/0.5 Mg (3 Ml) Ud) 3 ml IH Q2H PRN PRN Reason: Shortness of Breath Last Admin: 04/09/18 04:19 Dose: 3 ml Alprazolam (Xanax) 0.5 mg PO TID PRN; Protocol PRN Reason: Anxiety Last Admin: 04/09/18 18:32 Dose: 0.5 mg Amlodipine Besylate (Norvasc) 5 mg PO DAILY [facility] Last Admin: 04/10/18 09:28 Dose: 5 mg Aspirin (Ecotrin) 81 mg PO DAILY [facility] Last Admin: 04/10/18 09:26 Dose: 81 mg Atorvastatin Calcium (Lipitor) 10 mg PO HS [facility] Last Admin: 04/09/18 21:30 Dose: 10 mg Budesonide (Pulmicort Respules) 0.5 mg IH [id number] [facility] Last Admin: 04/09/18 19:35 Dose: 0.5 mg Calcium Acetate (Phoslo) 2,001 mg PO WM [facility] Last Admin: 04/10/18 08:19 Dose: 2,001 mg Ergocalciferol (Drisdol 50,000 Intl Units Cap) 1 cap PO Q7D [facility] Last Admin: 04/08/18 08:32 Dose: 1 cap Famotidine (Pepcid) 20 mg PO DAILY [facility] Last Admin: 04/10/18 09:29 Dose: 20 mg Furosemide (Lasix) 40 mg PO DAILY [facility] Heparin Sodium (Porcine) (Heparin) 5,000 units SC Q12 [facility]; Protocol Last Admin: 04/10/18 09:26 Dose: Not Given Hydralazine HCl (Apresoline) 50 mg PO BID [facility] Last Admin: 04/10/18 09:24 Dose: 50 mg Hydralazine HCl (Apresoline) 10 mg PO QID PRN PRN Reason: for sbp>170 Last Admin: 04/04/18 02:26 Dose: 10 mg Insulin Detemir (Levemir) 15 unit SC HS [facility] Last Admin: 04/09/18 21:30 Dose: 15 units Insulin Human Lispro (Humalog) 8 units SC AC [facility] Last Admin: 04/10/18 08:15 Dose: 8 units Insulin Human Regular (Humulin R Med) 0 units SC [facility]; Protocol Last Admin: 04/10/18 08:15 Dose: 3 unit Lorazepam (Ativan) 0.5 mg PO HS [facility]; Protocol Last Admin: 04/09/18 21:30 Dose: 0.5 mg Magnesium Oxide (Mag-Ox) 400 mg PO BID [facility] Last Admin: 04/10/18 09:27 Dose: 400 mg Methylprednisolone (Solu-Medrol) 30 mg IVP Q8 [facility] Last Admin: 04/10/18 06:00 Dose: 30 mg Metoprolol Tartrate (Lopressor) 25 mg PO BID [facility] Last Admin: 04/10/18 09:26 Dose: 25 mg Montelukast Sodium (Singulair) 10 mg PO HS [facility] Last Admin: 04/09/18 21:30 Dose: 10 mg Nicotine (Nicoderm Cq) 1 patch TD DAILY [facility] Last Admin: 04/10/18 09:27 Dose: 1 patch Oxycodone/Acetaminophen (Percocet 5/325 Mg Tab) 1 tab PO Q6H PRN PRN Reason: Pain, moderate (4-7) Stop: 04/10/18 22:32 Last Admin: 04/10/18 06:26 Dose: 1 tab Pantoprazole Sodium (Protonix Ec Tab) 20 mg PO ACB [facility] Last Admin: 04/10/18 08:19 Dose: 20 mg Roflumilast (Daliresp) 250 mcg PO DAILY [facility] Last Admin: 04/10/18 09:24 Dose: 250 mcg Sodium Chloride ([place] Nasal [place]) 0 ml NS Q2H PRN PRN Reason: Nasal congestion Vitamin B Complex/Vit C/Folic Acid (Nephro-Enrrique) 1 tab PO 0800 [facility] Last Admin: 04/10/18 08:18 Dose: 1 tab - Labs Labs: 04/10/18 09:00 04/10/18 09:00 Assessment and Plan - Assessment and Plan (Free Text) Plan: Mrs Granado is a 57 year old female with a PMHx history of breast cancer, severe COPD, anxiety, pneumonia, pleural effusions, CKD, xanax abuse, hx of non- compliance, hx of xanax/oxycodone overose, who presented to the ED in respiratory distress while on non-rebreather. Patient was then intubated while in ED due to lack of airway protection. Hematology/oncology has been consulted for anemia. Anemia -likely anemia of chronic disease 2/2 to ckd -Hgb on admission: 9.7 -> today 7.4 * chronically anemic since 02/2017 -order for iron studies, retic count, peripheral smear, B12, folate * retic count: 1.72, B12: 476, folate: 17, iron: 44, TIBC 213, %sat: 21, ferritin: 206, MCV: 96, LDH: 561 -has received erythropoetin in the past for anemia due to renal disease * CKD 3 and now with DAHLIA -f/u epo level, immunofixation, spep, LDH * epo 22.8 (mildly high) * ABDIRIZAK and SPEP -> selective protein loss pattern, suggestive of nephrotic syndrome -1 dose of aranesp 40mcg ivp on 04/06/18 -ferrous gluconate 324mg po qd now discontinued -recommend darbapoetin injections outpatient Hx L breast cancer (Dx 2016) invasive ductal carcinoma -ER+/HER2+ -Got 1 cycle of sandee-adjuvant chemo. After that, refuse chemo/surgery. -CT chest w/o contrast showed lymphadenopathy suspicious for tumor * etiology could be malignancy, infectious, inflammatory * repeat CT 1 month after current episode has resolved PATIENT SIGNED OUT AMA TODAY 04/10/18 PRIOR TO OUR EVALUATION Case discussed with Dr Ruben Gleason
[2018-04-10] MEDS ORDERED: MethylPREDNISolone 40 mg Vial IVP SCH (11:44)
--- NOTE | 2018-04-10 12:07 | PN ---
DATE: 04/09/2018 SUBJECTIVE: The patient was seen sitting in the bed, mild respiratory distress. She wants to go home. It is explained to her that her condition still needs some treatment; however, if she wish to go home after long explanation where there is a risk, she may need to sign against medical advice. However, she agreed and she does have mild respiratory distress related to anxiety but seems coughing, still having problem with her kidney. PHYSICAL EXAMINATION: On 04/09/2018 as follow; VITAL SIGNS: Temperature 98, heart rate 95, blood pressure 142/50, respirations was 20, saturation 90% on nasal cannula on 3 liters. HEAD AND NECK: Normal. No JVD. No thyromegaly. CHEST: There is diminished breath sounds on both sides and there is rhonchi. CARDIAC: First sound and second sound normal. No murmur, rub or gallop. ABDOMEN: Obese and nontender. EXTREMITIES: There is mild edema on both legs above the ankles. NEUROLOGICAL: She is moving all extremities normal. LABORATORY STUDIES: White count 6.6, hemoglobin 7, hematocrit 23.9, and platelets 251. Chemistry is sodium 145, potassium 4, chloride 106, bicarbonate 33, BUN 119, creatinine 3.1, blood sugar 248 and calcium 9.7. Liver function test is normal except ALT slightly elevated at 59. IMPRESSION AND PLAN: 1. Respiratory failure, status post extubation. The patient is noncompliant on bilevel positive airway pressure currently. She is still on intravenous steroids. We tried to cut down on it, she got worse, so we back again to Solu-Medrol 30 mg intravenously every 8 hours, also continue on inhaled bronchodilators, Mucomyst and the patient will need more help with her respiratory conditions. She also have congestive heart failure, diastolic heart failure with edema of the lower leg. I will give her Lasix 40 x1 now. We will repeat labs in the morning. 2. Hypertension, stable. Continue hydralazine. Continue Norvasc 5 mg daily and continue metoprolol 25 mg b.i.d. 3. Insulin-dependent diabetes. The patient's diet is now stable. Continue insulin coverage and continue insulin regimen as is. 4. Chronic renal failure with acute worsening. We will monitor labs in the morning and we will follow up clinically. 5. Chronic anxiety and chronic back pain. Continue Xanax and Percocet p.r.n. The patient otherwise needs to be followed up on a daily basis. I advised her to stay and not to leave and we will follow up on a daily basis. Sloan Sosa MD [facility] # [id number]
--- NOTE | 2018-04-10 12:38 | CP.PCM.PN ---
Subjective - Date & Time of Evaluation Date of Evaluation: 04/10/18 Time of Evaluation: 12:37 - Subjective Subjective: Nephrology Consultation Note: Assessment: stable DAHLIA likely ATN, non-oliguric acute on chronc respi acidosis with respi failure with renal compensation rt large pleural effusion with chest wall mass ? malignant (hx of breast CA) Diabetic chronic Kidney Disease (E11.22) Hypertensive Chronic Kidney Disease (I12.9) Chronic Kidney Disease (N18.3) Stage 3 with 1200 mg proteinuria and 400 mg albuminuria (R80.9) likely due to DM/HTN Anemia (D64.9) hyperphosphatemia COPD/asthma, active smoker, breast cancer s/p surgery 2 years ago active smoker Plan No acute need for renal replacement therapy at this time but may need soon and will need close follow up. overall poor prognosis, seen by palliative care Hypertension control with meds as ordered. Maintain hemodynamics stable. Avoid hypotension. Patient not on ACEI/ARB due to low BP and hyperkalemia. started on lopressor by cardiology. added norvasc Monitor Input/Output, daily weights and renal function with basic metabolic panel low K diet low Phos diet, added phos binders but switched to renagel as serum Ca higher will defer use of [place] to heme/onc in view of her recent breast malignancy with concerns for mets. PRBC as needed started iron, MVI and weekly Vit D CXR 04/06: no pulm congestion. has small Rt pleural effusion with infiltrate. BUN was rising, probably hold diuretics for now supplement lytes as needed seen by cardio heme/onc and pulmonary Dose meds/antibiotics for reduced GFR. Avoid fleets enema/magnesium based laxatives. Avoid nephrotoxins/NSAIDs/ iodinated contrast (unless needed emergently) Glycemic control. pt need to stop smoking. Further work up/management as per primary team advised to stay in hospital and not leave AMA. Thanks for allowing me to participate in care of your patient. Will follow patient with you. Please call if any Qs. had d/w team and family Dr Marco Antonio Chatman Office: [phone] Chief Complaint; SOB Reason for consult: CKD 3 HPI: Pt is a 57 F with hx of diabetes Mellitus ( years), hypertension (years) COPD/asthma, active smoker, breast cancer s/p surgery 2 years ago but didn't co mplete treatment now with mets, anemia, CKD stage 3 with baseline cr 1.8 mg/dL admitted with acute respi distress hypercapnic respi failure and intubated, now seen for CKD management Denies OTC/herbal meds or NSAIDs No recent iodinated contrast exposure. Noted obvious episodes of low BP. ROS: pt is a poor historian and overall hx is limited from her. not much interactive. says I want to go home and about to sign out AMA. son in room as well Physical Examination: General Appearance: stable appearing. on o2 Vitals reviewed and noted as below Head; Atraumatic, normocephalic ENT: no ulcers no thrush. Tongue is midline. Oropharynx: no rash or ulcers. she is hard of hearing EYES: Pupils are equal, round and reactive to light accommodation. Eye muscles and extraocular movement intact. Sclera is anicteric. has periorbital puffiness Neck; supple no lymphadenopathy, no thyromegaly or bruit Lungs: Improved respiratory rate/effort. Breath sounds reduced at base with b/l wheezing Heart: normal rate. s1s2 normal. No rub or gallop. Extremities: 1-2+ edema. No varicose veins Neurological: Patient is alert, awake and oriented to person, place and time. No focal deficit. Strength bilateral appropriate and equal Skin: Warm and dry. Normal turgor. No rash. Palpitation: Normal elasticity for age Abdomen: Abdomen is soft. Bowel sounds +. There is no abdominal tenderness, no guarding/rigidity no organomegaly Psych: lack insight and flat affect/mood MSK: no joint tenderness or swelling. Digits and nails normal, no deformity : kidney or bladder not palpable Labs/imaging reviewed. Past medical history, past surgical history, family history, social history, allergy reviewed and noted as below Family hx: no hx of CKD. Rest non-contributory renal imaging: b/l cysts echo normal LVEF TSAt 26% ferritin 45 Serum FLC assay WNL ABDIRIZAK neg PTH 154 Vit D 17 Objective - Vital Signs/Intake and Output Vital Signs (last 24 hours): Temp Pulse Resp BP Pulse Ox 97.8 F 95 H 22 150/62 89 L 04/10/18 07:52 04/10/18 09:28 04/10/18 07:52 04/10/18 09:28 04/10/18 07:52 Intake and Output: 04/10/18 04/10/18 06:59 18:59 Intake Total 360 Output Total 770 Balance -410 - Medications Medications: Current Medications Acetylcysteine (Acetylcysteine 20%) 4 ml IH BIDRESP [facility] Last Admin: 04/10/18 07:04 Dose: 4 ml Albuterol/Ipratropium (Duoneb 3 Mg/0.5 Mg (3 Ml) Ud) 3 ml IH [id number] [facility] Last Admin: 04/10/18 07:06 Dose: 3 ml Albuterol/Ipratropium (Duoneb 3 Mg/0.5 Mg (3 Ml) Ud) 3 ml IH Q2H PRN PRN Reason: Shortness of Breath Last Admin: 04/09/18 04:19 Dose: 3 ml Alprazolam (Xanax) 0.5 mg PO TID PRN; Protocol PRN Reason: Anxiety Last Admin: 04/09/18 18:32 Dose: 0.5 mg Amlodipine Besylate (Norvasc) 5 mg PO DAILY [facility] Last Admin: 04/10/18 09:28 Dose: 5 mg Aspirin (Ecotrin) 81 mg PO DAILY [facility] Last Admin: 04/10/18 09:26 Dose: 81 mg Atorvastatin Calcium (Lipitor) 10 mg PO HS [facility] Last Admin: 04/09/18 21:30 Dose: 10 mg Budesonide (Pulmicort Respules) 0.5 mg IH [id number] [facility] Last Admin: 04/09/18 19:35 Dose: 0.5 mg Ergocalciferol (Drisdol 50,000 Intl Units Cap) 1 cap PO Q7D [facility] Last Admin: 04/08/18 08:32 Dose: 1 cap Famotidine (Pepcid) 20 mg PO DAILY [facility] Last Admin: 04/10/18 09:29 Dose: 20 mg Furosemide (Lasix) 40 mg PO DAILY [facility] Last Admin: 04/10/18 12:00 Dose: Not Given Heparin Sodium (Porcine) (Heparin) 5,000 units SC Q12 [facility]; Protocol Last Admin: 04/10/18 09:26 Dose: Not Given Hydralazine HCl (Apresoline) 50 mg PO BID [facility] Last Admin: 04/10/18 09:24 Dose: 50 mg Hydralazine HCl (Apresoline) 10 mg PO QID PRN PRN Reason: for sbp>170 Last Admin: 04/04/18 02:26 Dose: 10 mg Insulin Detemir (Levemir) 15 unit SC [facility] Last Admin: 04/09/18 21:30 Dose: 15 units Insulin Human Lispro (Humalog) 8 units SC [facility] Last Admin: 04/10/18 12:00 Dose: Not Given Insulin Human Regular (Humulin R Med) 0 units SC [facility]; Protocol Last Admin: 04/10/18 12:00 Dose: Not Given Lorazepam (Ativan) 0.5 mg PO [facility]; Protocol Last Admin: 04/09/18 21:30 Dose: 0.5 mg Magnesium Oxide (Mag-Ox) 400 mg PO BID [facility] Last Admin: 04/10/18 09:27 Dose: 400 mg Methylprednisolone (Solu-Medrol) 20 mg IVP Q8 [facility] Metoprolol Tartrate (Lopressor) 25 mg PO BID [facility] Last Admin: 04/10/18 09:26 Dose: 25 mg Montelukast Sodium (Singulair) 10 mg PO [facility] Last Admin: 04/09/18 21:30 Dose: 10 mg Nicotine (Nicoderm Cq) 1 patch TD DAILY [facility] Last Admin: 04/10/18 09:27 Dose: 1 patch Oxycodone/Acetaminophen (Percocet 5/325 Mg Tab) 1 tab PO Q6H PRN PRN Reason: Pain, moderate (4-7) Stop: 04/10/18 22:32 Last Admin: 04/10/18 06:26 Dose: 1 tab Pantoprazole Sodium (Protonix Ec Tab) 20 mg PO ACB [facility] Last Admin: 04/10/18 08:19 Dose: 20 mg Roflumilast (Daliresp) 250 mcg PO DAILY [facility] Last Admin: 04/10/18 09:24 Dose: 250 mcg Sevelamer HCl (Renagel) 1,600 mg PO TID [facility] Last Admin: 04/10/18 12:01 Dose: Not Given Sodium Chloride ([place] Nasal [place]) 0 ml NS Q2H PRN PRN Reason: Nasal congestion Vitamin B Complex/Vit C/Folic Acid (Nephro-Enrrique) 1 tab PO 0800 [facility] Last Admin: 04/10/18 08:18 Dose: 1 tab - Labs Labs: 04/10/18 09:00 04/10/18 09:00
[2018-04-10] MEDS ORDERED: Iron Sucrose 100 mg/5 ml Inj IVP ONE (12:49)
--- NOTE | 2018-04-10 12:56 | PN ---
DATE: 04/10/2018 PULMONARY PROGRESS NOTE REFERRING PHYSICIAN: Sloan Sosa MD SUBJECTIVE: The patient is sitting in chair on room. No acute distress. No overnight events reported. reports shortness of breath with exertion. Periodic cough. No headache, rhinitis, chest pain, abdominal pain, nausea, vomiting, diarrhea or leg pain reported. OBJECTIVE: GENERAL: No acute distress. VITAL SIGNS: Blood pressure 150/62, pulse 95, temperature is 97.8 and oxygen saturation 90%. HEENT: Moist mucous membranes. Crowded airway. NECK: Supple. No JVD. LUNGS: Scattered rhonchi. Decreased breath sounds on the right. CARDIOVASCULAR: S1 and S2, audible. ABDOMEN: Soft and nontender. No distention. No organomegaly. EXTREMITIES: Bilateral lower extremity edema. NEUROLOGIC: Awake, alert and verbal. Follows commands. MEDICATIONS: Reviewed. Mucomyst 4 mL inhalation twice a day, DuoNeb 3 mL inhalation every 2 hours p.r.n., DuoNeb 3 mL inhalation every 6 hours, Xanax 0.5 mg 3 times a day p.r.n., Norvasc 5 mg daily, aspirin 81 mg daily, Lipitor 10 mg at bedtime, Pulmicort 0.5 mg inhalation every 12 hours, ergocalciferol 20197 units weekly, Pepcid 20 mg daily, Lasix 40 mg daily, heparin 5000 units subcutaneous every 12 hours, hydralazine 10 mg 4 times a day p.r.n. for systolic blood pressure greater than 170, hydralazine 15 mg twice a day, Levemir 15 units subcutaneously at bedtime, Humalog 8 units subcutaneous a.c., Humulin R sliding scale a.c. and at bedtime, Ativan 0.5 mg at bedtime, magnesium oxide 400 mg twice a day, Solu-Medrol 30 mg every 8 hours, metoprolol tartrate 25 mg twice a day, Singulair 10 mg at bedtime, nicotine patch transdermally daily, Percocet 5/325 mg every 6 hours p.r.n., Protonix 20 mg in the morning, Daliresp 250 mcg daily, Renagel 1600 mg three times a day, [place] nasal spray every 2 hours p.r.n. and Nephro-Enrrique one tab daily. LABORATORY DATA: Reviewed. WBC 7.5, RBC 2.63, hemoglobin 7.4, hematocrit 25.6 and platelets 234. Sodium 146, potassium 4.1, chloride 105, carbon dioxide 37, anion gap 9, BUN 113, creatinine 2.7, GFR 18, POC glucose 236, random glucose 217 and calcium 9.9. IMPRESSION AND PLAN: Respiratory failure with hypoventilation syndrome and CO2 retention and hypoxemia, extensive mucous plugging of both lungs, especially in the right with atelectasis, history of breast cancer, pneumonia, diabetes, recurrent urinary tract infection, associate sleep apnea syndrome. We will decrease Solu-Medrol to 20 mg every 8 hours. Continue inhaled bronchodilators, antibiotic therapy, incentive spirometry, chest physiotherapy. Continue pulmonary toileting, out of bed to chair as tolerated. Cardiology followup and Nephrology followup. The patient continues use continuous positive airway pressure. Continue to encourage continuous positive airway pressure use. Sleep apnea precaution. Head of bed elevated at 45 degrees. Overall prognosis is poor. This patient was seen and examined with Dr. Rucker. Discussed the assessment and plan as described above. Thank you for this consult and we will follow with you. Didier Dennis APN Lisa Rucker MD
--- NOTE | 2018-04-10 13:07 | PN ---
DATE: 04/10/2018 REASON FOR CONSULTATION: Followup cardiac evaluation, congestive heart failure, exacerbation of COPD, respiratory distress, improved, large pleural effusion, acute kidney injury, chronic renal insufficiency. SUBJECTIVE: The patient denies any chest pain, shortness of breath, or any palpitation. This note is addition to dictated by nurse practitioner, Mariama Witt. LABORATORY DATA: Today's labs: Hemoglobin 7.4, hematocrit 25.6 and platelet count 234. Chemistry: Sodium 140, potassium 4, chloride 105, carbon dioxide 37, anion gap 9, BUN 113 and creatinine 2.7. IMPRESSION: A 57-year-old female with past medical history significant for tobacco abuse, history of asthma, chronic obstructive pulmonary disease, anxiety disorder, history of chronic back pain, narcotic dependent, type 2 diabetes, history of recurrent urinary tract infection, chronic kidney disease, admitted with pneumonia, shortness of breath, large pleural effusion. Recent echo shows preserved left ventricular fraction, ejection fraction of 65%, history of chronic kidney disease, on acute kidney injury, history of pneumonia, history of breast carcinoma. The patient had echocardiography on 03/09/2018 as mentioned above. RECOMMENDATIONS: Continue antihypertensive medication, avoid nephrotoxic medication. Blood pressure is controlled. We will get ultrasound duplex to rule out DVT, PE. Avoid nephrotoxic medication. The patient is being followed by [facility], not on NICOLE or ARB because of the renal insufficiency. We will follow with you. Continue hydralazine. Continue amlodipine, diuretics as per Renal. The patient may benefit from some gentle diuretics, we will put low dose and further recommendation as per [facility]. The patient has at least 1+ pedal edema. We will do the duplex of lower extremity to rule out DVT. The patient has history of narcotic dependence, asking Percocet. Lisa Hernandez MD
--- NOTE | 2018-04-10 13:27 | CP.PCM.PN ---
Subjective - Date & Time of Evaluation Date of Evaluation: 04/10/18 Time of Evaluation: 10:45 - Subjective Subjective: Still feels weak, no fevers. Objective - Vital Signs/Intake and Output Vital Signs (last 24 hours): Temp Pulse Resp BP Pulse Ox 97.8 F 95 H 20 142/50 L 90 L 04/09/18 09:04 04/09/18 09:12 04/09/18 09:04 04/09/18 09:12 04/09/18 09:04 Intake and Output: 04/09/18 04/09/18 06:59 18:59 Intake Total 1260 Output Total 1000 Balance 260 - Medications Medications: Current Medications Acetylcysteine (Acetylcysteine 20%) 4 ml IH BIDRESP [facility] Last Admin: 04/09/18 07:33 Dose: 4 ml Albuterol/Ipratropium (Duoneb 3 Mg/0.5 Mg (3 Ml) Ud) 3 ml IH [id number] [facility] Last Admin: 04/09/18 07:33 Dose: 3 ml Albuterol/Ipratropium (Duoneb 3 Mg/0.5 Mg (3 Ml) Ud) 3 ml IH Q2H PRN PRN Reason: Shortness of Breath Last Admin: 04/09/18 04:19 Dose: 3 ml Alprazolam (Xanax) 0.5 mg PO TID PRN; Protocol PRN Reason: Anxiety Last Admin: 04/09/18 09:11 Dose: 0.5 mg Amlodipine Besylate (Norvasc) 5 mg PO DAILY [facility] Last Admin: 04/09/18 09:12 Dose: 5 mg Aspirin (Ecotrin) 81 mg PO DAILY [facility] Last Admin: 04/09/18 09:11 Dose: 81 mg Atorvastatin Calcium (Lipitor) 10 mg PO HS [facility] Last Admin: 04/08/18 21:53 Dose: 10 mg Budesonide (Pulmicort Respules) 0.5 mg IH [id number] [facility] Last Admin: 04/09/18 07:33 Dose: 0.5 mg Calcium Acetate (Phoslo) 2,001 mg PO WM [facility] Last Admin: 04/09/18 08:36 Dose: 2,001 mg Ergocalciferol (Drisdol 50,000 Intl Units Cap) 1 cap PO Q7D [facility] Last Admin: 04/08/18 08:32 Dose: 1 cap Famotidine (Pepcid) 20 mg PO DAILY [facility] Last Admin: 04/09/18 09:11 Dose: 20 mg Hydralazine HCl (Apresoline) 50 mg PO BID [facility] Last Admin: 04/09/18 09:12 Dose: 50 mg Hydralazine HCl (Apresoline) 10 mg PO QID PRN PRN Reason: for [id number] Last Admin: 04/04/18 02:26 Dose: 10 mg Insulin Detemir (Levemir) 15 unit SC [facility] Last Admin: 04/08/18 21:52 Dose: 15 units Insulin Human Lispro (Humalog) 8 units SC [facility] Last Admin: 04/09/18 08:40 Dose: Not Given Insulin Human Regular (Humulin R Med) 0 units SC [facility]; Protocol Last Admin: 04/09/18 08:41 Dose: Not Given Lorazepam (Ativan) 0.5 mg PO [facility]; Protocol Last Admin: 04/08/18 21:51 Dose: 0.5 mg Magnesium Oxide (Mag-Ox) 400 mg PO BID [facility] Last Admin: 04/09/18 09:12 Dose: 400 mg Methylprednisolone (Solu-Medrol) 40 mg IVP Q12 [facility] Last Admin: 04/09/18 09:11 Dose: 40 mg Metoprolol Tartrate (Lopressor) 25 mg PO BID [facility] Last Admin: 04/09/18 09:12 Dose: 25 mg Montelukast Sodium (Singulair) 10 mg PO [facility] Last Admin: 04/08/18 21:53 Dose: 10 mg Nicotine (Nicoderm Cq) 1 patch TD DAILY [facility] Last Admin: 04/09/18 09:11 Dose: 1 patch Oxycodone/Acetaminophen (Percocet 5/325 Mg Tab) 1 tab PO Q6H PRN PRN Reason: Pain, moderate (4-7) Stop: 04/10/18 22:32 Last Admin: 04/09/18 09:44 Dose: 1 tab Pantoprazole Sodium (Protonix Ec Tab) 20 mg PO ACB [facility] Last Admin: 04/09/18 08:36 Dose: 20 mg Roflumilast (Daliresp) 250 mcg PO DAILY [facility] Last Admin: 04/09/18 09:11 Dose: 250 mcg Sodium Chloride ([place]) 0 ml NS Q2H PRN PRN Reason: Nasal congestion Vitamin B Complex/Vit C/Folic Acid (Nephro-Enrrique) 1 tab PO 0800 [facility] Last Admin: 04/09/18 08:36 Dose: 1 tab - Labs Labs: 04/09/18 06:00 04/09/18 06:00 - Constitutional Appears: Chronically Ill - Head Exam Head Exam: NORMAL INSPECTION - Respiratory Exam Respiratory Exam: Decreased Breath Sounds - Cardiovascular Exam Cardiovascular Exam: +S1, +S2 - GI/Abdominal Exam GI & Abdominal Exam: Soft. 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
[2018-04-10 18:52] VITALS: PULSE 93
--- NOTE | 2018-04-10 20:20 | RAD ---
Date of service: 03/31/2018 PROCEDURE: Single-view chest HISTORY: Tube placement COMPARISON: 03/14/2018 single-view chest. 03/11/2018 CT thorax TECHNIQUE: Standard protocol for this study/examination. FINDINGS: Collapse of portions of the right lower and right middle lobe. Worsening consolidative change/volume loss affecting the remainder of the right lung. Venous access catheter in stable, satisfactory position. Satisfactory position of endotracheal tube. Nasogastric tube tip in the proximal stomach. Distal side hole above the gastroesophageal junction. IMPRESSION: Satisfactory position of support apparatus. Progressive changes right hemithorax as described above.
== END 2018-04-10 13:38 | disposition left against medical advice (07) | DRG 584 ==
LOC: ED 02:18 → ERH 02:50 → ICU 05:40 → 3RNO 04-06 18:27
PROVIDERS: ADMIT Internal Medicine; ATTEND Internal Medicine
PROC: 5A1935Z Respiratory Ventilation, Less than 24 Consecutive Hours (ICD-10-PCS; principal; 2018-03-31)
PROC: 0BH17EZ Insertion of Endotracheal Airway into Trachea, Via Natural or Artificial Opening (ICD-10-PCS; 2018-03-31)
PROC: 3E0F7GC Introduction of Other Therapeutic Substance into Respiratory Tract, Via Natural or Artificial Opening (ICD-10-PCS; 2018-03-31)
PROC: 5A09457 Assistance with Respiratory Ventilation, 24-96 Consecutive Hours, Continuous Positive Airway Pressure (ICD-10-PCS; 2018-04-01)
DX: A41.9 Sepsis, unspecified organism (principal); J96.22 Acute and chronic respiratory failure with hypercapnia; J96.21 Acute and chronic respiratory failure with hypoxia; J18.9 Pneumonia, unspecified organism; I50.32 Chronic diastolic (congestive) heart failure; N17.0 Acute kidney failure with tubular necrosis; J44.1 Chronic obstructive pulmonary disease with (acute) exacerbation; J44.0 Chronic obstructive pulmonary disease with (acute) lower respiratory infection; N18.3 Chronic kidney disease, stage 3 (moderate); I13.0 Hypertensive heart and chronic kidney disease with heart failure and stage 1 through stage 4 chronic kidney disease, or unspecified chronic kidney disease; E11.22 Type 2 diabetes mellitus with diabetic chronic kidney disease; E11.21 Type 2 diabetes mellitus with diabetic nephropathy; E87.5 Hyperkalemia; E87.2 Acidosis; F11.20 Opioid dependence, uncomplicated; R65.20 Severe sepsis without septic shock; F17.200 Nicotine dependence, unspecified, uncomplicated; C50.919 Malignant neoplasm of unspecified site of unspecified female breast; E11.65 Type 2 diabetes mellitus with hyperglycemia; D63.1 Anemia in chronic kidney disease; G89.29 Other chronic pain; M47.9 Spondylosis, unspecified; E78.00 Pure hypercholesterolemia, unspecified; F41.0 Panic disorder [episodic paroxysmal anxiety]; T17.890A Other foreign object in other parts of respiratory tract causing asphyxiation, initial encounter; Z99.81 Dependence on supplemental oxygen; Z91.19 Patient's noncompliance with other medical treatment and regimen; Z79.4 Long term (current) use of insulin; Z79.82 Long term (current) use of aspirin; Z87.01 Personal history of pneumonia (recurrent); Z87.440 Personal history of urinary (tract) infections

== ENCOUNTER 2018-04-11 12:02 | Inpatient (IN) | payer MEDICAID ==
[2018-04-11 12:04] VITALS: BMI 28.4
[2018-04-11] MEDS ORDERED: Magnesium Sulfate 2 gm/50 ml 2 GM/50 ML BAG IVPB ONE (12:10)
[2018-04-11] MEDS ORDERED: Albuterol-Ipratrop 3 mg / 0.5 (3 ml) UD ONE (12:11)
[2018-04-11 12:41] LABS: BASO # 0.01 K/mm3 (0.0-2.0); BASO % 0.1 % (0.0-3.0); EOS % 0.1 % (1.5-5.0); GRAN # 9.26 (1.4-6.5); GRAN % 86.3 % (50.0-68.0); HEMOGLOBIN 7.3 g/dL (12.0-16.0); LYMPH # 0.8 (1.2-3.4); LYMPH % 7.6 % (22.0-35.0); MEAN CELL VOLUME 98.5 fl (80.0-105.0); MEAN CORPUSCULAR HEMOGLOBIN 28.2 pg (25.0-35.0); MEAN CORPUSCULAR HGB CONC 28.6 g/dl (31.0-37.0); MEAN PLATELET VOLUME 11.3 fl (7.0-11.0); MONO # 0.6 (0.1-0.6); MONO % 5.9 % (1.0-6.0); RBC 2.59 10^6/uL (3.5-6.1); RED CELL DISTRIBUTION WIDTH 20.4 % (11.5-14.5); WHITE BLOOD COUNT 10.7 10^3/uL (4.5-11.0)
[2018-04-11] MEDS: Albuterol-Ipratrop 3 mg / 0.5 (3 ml) UD IH SCH ×5 (12:44→23:30)
[2018-04-11 12:45] LABS: ARTERIAL BLOOD GAS HCO3 40.9 mmol/L (21-28); ARTERIAL BLOOD GAS O2 SAT 100.6 % (95-98); ARTERIAL BLOOD GAS PCO2 100 mm/Hg (35-45); ARTERIAL BLOOD GAS PH 7.22 (7.35-7.45)
--- NOTE | 2018-04-11 12:46 | ED PDOC ---
Arrival/HPI - General Time Seen by Provider: 04/11/18 12:02 Historian: Patient, EMS EM Caveat: Respiratory Distress - Critical Care Critical Care Minutes: 45 minutes Critical Care Time: Excluding Proc Time - History of Present Illness Narrative History of Present Illness (Text): 04/11/18 12:00 57 year old female, whose past medical history includes COPD, asthma, breast cancer, anxiety, chronic back pain, IDDM, and recurrent UTIs, who presents to the emergency department complaining of shortness of breath since she woke up this morning. Patient reports she had a cigarette this morning and that it worsened her COPD. Medics arrived and placed patient on CPAP and gave duoneb. Upon arrival, patient notes some improvement of shortness of breath. She is hard of hearing but able to speak in 2 word sentences and gesture. Patient left the hospital yesterday AMA because she wanted to smoke, after being admitted for sepsis with hypercapnic respiratory failure requiring intubation with CHF and COPD with negative cultures Limited HPI due to respiratory distress. 04/11/18 14:11 Time/Duration: Prior to Arrival Symptom Onset: Sudden Symptom Course: Unchanged Activities at Onset: Other (Pt notes she had a ciggarette this morning) Past Medical History - Infectious Disease Hx of Infectious Diseases: None - Tetanus Immunization Tetanus Immunization: Unknown - Cardiac Hx Cardiac Disorders: Yes Hx Hypertension: Yes - Pulmonary Hx Chronic Obstructive Pulmonary Disease (COPD): Yes - Neurological Hx Neurological Disorder: No - HEENT Hx HEENT Disorder: No - Renal Hx Renal Disorder: No - Endocrine/Metabolic Hx Diabetes Mellitus Type 2: Yes - Hematological/Oncological Hx Blood Disorders: Yes (blood transfusion) Hx Cancer: Yes (left breast dx 06/2015) Hx Chemotherapy: Yes (2016 as per son) - Integumentary Hx Dermatological Disorder: No - Musculoskeletal/Rheumatological Hx Falls: Yes - Gastrointestinal Hx Gastrointestinal Disorders: No - Genitourinary/Gynecological Hx Genitourinary Disorders: No - Psychiatric Hx Psychophysiologic Disorder: Yes Hx Anxiety: Yes Hx Depression: Yes Hx Substance Use: No - Past Surgical History Past Surgical History: Non-Contributing - Surgical History Hx Inguinal Hernia Repair: Yes - Anesthesia Hx Anesthesia: Yes Hx Anesthesia Reactions: No Hx Malignant Hyperthermia: No - Suicidal Assessment Feels Threatened In Home Enviroment: No Family/Social History Family/Social History: No Known Family HX Smoking Status: Former Smoker Hx Alcohol Use: No Hx Substance Use: No Hx Substance Use Treatment: No Allergies/Home Meds Allergies/Adverse Reactions: Allergies levofloxacin [From Levaquin] Allergy (Verified 03/31/18 02:26) SHORTNESS OF BREATH;PARANOID nystatin Allergy (Verified 03/31/18 02:26) SWELLING Home Medications: Home Meds Medication Instructions Recorded Confirmed Advair Hfa 115/21 1 puff INH BID 03/03/17 02/05/18 Aspirin [Ecotrin] 81 mg PO DAILY 03/03/17 02/05/18 Famotidine [Pepcid] 20 mg PO DAILY 03/03/17 02/05/18 Oxycodone HCl/Acetaminophen 1 tab PO Q6 03/03/17 02/05/18 [Oxycodone-Acetaminophen 5-325] Simvastatin 10 mg PO DAILY 03/03/17 02/05/18 Review of Systems - Review of Systems Systems not reviewed;Unavailable: Respiratory Distress Respiratory: SOB (pt noted shortness of breath since this morning ), Cough. absent: Normal Physical Exam Temperature: Afebrile Blood Pressure: Normal Pulse: Tachycardic Respiratory Rate: Tachypneic Appearance: Positive for: Ill-Appearing. No: Comfortable Pain Distress: None Mental Status: Positive for: Alert and Oriented X 3 - Systems Exam Head: Present: Atraumatic, Normocephalic Pupils: Present: PERRL Extroacular Muscles: Present: EOMI Conjunctiva: Present: Normal Mouth: Present: Moist Mucous Membranes Neck: Present: Normal Range of Motion Respiratory/Chest: Present: Respiratory Distress, Wheezes, Rales, Tachypneic, Other (Pt has a mediport on right chest wall) Cardiovascular: Present: Regular Rate and Rhythm, Normal S1, S2. No: Murmurs Abdomen: No: Tenderness, Distention, Peritoneal Signs Back: Present: Normal Inspection Upper Extremity: Present: Normal Inspection. No: Cyanosis, Edema Lower Extremity: Present: Edema (2+ pitting edema bilaterally). No: Normal Inspection Neurological: Present: GCS=15, CN II-XII Intact. No: Speech Normal (patient speaking in 2 word sentences) Skin: Present: Warm, Dry, Normal Color. No: Rashes Psychiatric: Present: Alert, Oriented x 3, Normal Insight, Normal Concentration Medical Decision Making ED Course and Treatment: 04/11/18 12:00 Impression: 57 year old female who presents to the emergency department for shortness of breath since she woke up this morning. Plan: -- Labs -- EKG -- X-ray of chest -- Duoneb -- Magnesium Sulfate -- Urine culture -- Influenza A B -- Urinalysis w/ Micro -- Reassess and disposition Prior Visits: Notes and results from previous visits were reviewed. Patient was last seen in the emergency department on 03/31/18 via EMS in severe respiratory distress. Elmer sandhu was hospitalized in critical condition with diagnosis of Respiratory failure and Carbon dioxide narcosis. Progress Notes: 04/11/18 12:[address] Sosa, who is requesting that patient is sent to the hospitalist. 04/11/18 12:40 ABG resulted. Vent settings changed accordingly. CPAP respiratory rate increased 04/11/18 13:10 Pt became more lethargic and obtunded. Pt intubated for respiratory failure. 04/11/18 13:[address] Santiago who is aware of and agrees with plan to accept patient to ICU. PROCEDURE: INTUBATION Performed by the emergency provider Time: 13:10 Consent: Discussion of the risks, benefits, and alternatives to the procedure, along with informed consent was precluded by the urgency of the procedure and the patient condition. Timeout: A timeout to verify the correct patient, procedure, and site was performed. Indication: respiratory failure Pre-oxygenation: [id number] Medication: 7.5 Confirmation: Cords directly visualized as tube passed, good bilateral breath sounds, positive CO2 detector color change, tube fogging, adequate chest rise, improving pulse oximetry reading, improved skin color, and absence of gastric sounds,. ETT Secured: The cuff was inflated and the tube was secured appropriately at a d istance of cm at the lip. Post-Procedure: There were no immediate complications. CXR Confirmation: yes 04/11/18 14:12 - Critical Care Critical Care Minutes: 45 minutes - Lab Interpretations Lab Results: pCO2 100 mm/Hg (35-45) H* 04/11/18 12:30 pO2 385.0 mm/Hg (80-100) H 04/11/18 12:30 HCO3 40.9 mmol/L (21-28) H* 04/11/18 12:30 ABG pH 7.22 (7.35-7.45) L 04/11/18 12:30 ABG Total CO2 44.0 mmol.L (22-28) H 04/11/18 12:30 ABG O2 Saturation 100.6 % (95-98) H 04/11/18 12:30 ABG Base Excess 9.1 mmol/L (-2.0-3.0) H 04/11/18 12:30 ABG Potassium 3.8 mmol/L (3.6-5.2) 04/11/18 12:30 Sodium 147.0 mmol/L (132-148) 04/11/18 12:30 Chloride 110.0 mmol/L (98-107) H 04/11/18 12:30 Glucose 372 mg/dl (65-105) H 04/11/18 12:30 Lactate 0.5 mmol/L (0.7-2.1) L 04/11/18 12:30 FiO2 100.0 % 04/11/18 12:30 Crit Value Called To reggie Shirley 04/11/18 12:30 Crit Value Called By Lauren 04/11/18 12:30 Blood Gas Notified Time 1242 04/11/18 12:30 - RAD Interpretation Radiology Orders: 04/11/18 12:04 CHEST PORTABLE [RAD] Stat - Medication Orders Current Medication Orders: Albuterol/Ipratropium (Duoneb 3 Mg/0.5 Mg (3 Ml) Ud) 3 ml IH Q15M [facility] Stop: 04/11/18 12:46 Last Admin: 04/11/18 12:44 Dose: 3 ml Magnesium Sulfate (Magnesium Sulfate 2 Gm/50 Ml Water) 2 gm in 50 mls @ 50 mls/hr IVPB ONCE ONE Stop: 04/11/18 13:09 Last Admin: 04/11/18 12:42 Dose: 50 mls/hr eMAR Start Stop Document 04/11/18 12:42 EB (Rec: 04/11/18 12:44 EB [facility] [id number]) Intravenous Solution Start Date 04/11/18 Start Time 12:43 End Date 04/11/18 End time 13:43 Total Infusion Time 60 Discontinued Medications Methylprednisolone (Solu-Medrol) 125 mg IVP STAT STA Stop: 04/11/18 12:12 Last Admin: 04/11/18 12:44 Dose: 125 mg IVP Administration Document 04/11/18 12:44 EB (Rec: 04/11/18 12:44 EB [facility] [id number]) Charges for Administration # of IVP Administrations 1 - Scribe Statement The provider has reviewed the documentation as recorded by the Scribe Eileen Hoover All medical record entries made by the Scribe were at my direction and personally dictated by me. I have reviewed the chart and agree that the record accurately reflects my personal performance of the history, physical exam, medical decision making, and the department course for this patient. I have also personally directed, reviewed, and agree with the discharge instructions and disposition. Disposition/Present on Arrival - Present on Arrival Any Indicators Present on Arrival: No History of DVT/PE: No History of Uncontrolled Diabetes: No Urinary Catheter: No History Surgical Site Infection Following: None - Disposition Have Diagnosis and Disposition been Completed?: Yes Diagnosis: Hypercapnic respiratory failure Disposition: HOSPITALIZED Disposition Time: 12:49 Patient Plan: Admission Patient Problems: Current Active Problems Problem Status Onset Hypercapnic respiratory failure Acute Condition: CRITICAL
[2018-04-11 12:49] LABS: INR 1.05; PARTIAL THROMBOPLASTIN TIME 25.3 Seconds (26.9-38.3); PROTHROMBIN TIME 11.9 SECONDS (9.4-12.5)
[2018-04-11 12:56] LABS: URINE BILIRUBIN NEGATIVE (NEGATIVE); URINE BLOOD TRACE-INTACT (NEGATIVE); URINE GLUCOSE (UA) 100 mg/dL (NEGATIVE); URINE LEUKOCYTE ESTERASE SMALL Leu/uL (NEGATIVE); URINE PROTEIN 30 mg/dL (<30 mg/dL); URINE UROBILINOGEN 0.2 E.U./dL (<1 E.U./dL)
[2018-04-11 13:01] LABS: URINE APPEARANCE SL CLOUDY (CLEAR); URINE COLOR LIGHT YELLOW (YELLOW)
[2018-04-11 13:03] LABS: TROPONIN I 0.08 ng/mL
[2018-04-11 13:03] LABS: URINE RBC 0 - 2 /hpf (0-2)
[2018-04-11 13:04] LABS: URINE BACTERIA FEW /hpf; URINE EPITHELIAL CELLS 0 - 2 /hpf (0-5)
[2018-04-11] MEDS ORDERED: Etomidate 20 mg/10ml Inj IV ONE (13:05)
[2018-04-11] MEDS ORDERED: Succinylcholine 200 mg/10 ml Inj IV ONE (13:05)
[2018-04-11] MEDS ORDERED: Midazolam 100 mg/100ml in NS 100 MG/100 ML SOL IV PRN (13:11)
[2018-04-11] MEDS ORDERED: Etomidate 20 mg/10ml Inj IVP STA (13:12)
[2018-04-11] MEDS ORDERED: Succinylcholine 200 mg/10 ml Inj IV STA (13:12)
[2018-04-11 13:40] LABS: ALB/GLOB RATIO 1.4 (1.1-1.8); ALBUMIN 3.4 g/dL (3.0-4.8); CALCIUM 9.1 mg/dL (8.4-10.5)
--- NOTE | 2018-04-11 13:47 | RAD ---
Date of service: 04/11/2018 HISTORY: sob COMPARISON: 04/06/2018 FINDINGS: LUNGS: Increasing right lower lobe infiltrate and effusion PLEURA: Small right effusion CARDIOVASCULAR: No aortic atherosclerotic calcification present. Normal cardiac size. No pulmonary vascular congestion. OSSEOUS STRUCTURES: No significant abnormalities. VISUALIZED UPPER ABDOMEN: Normal. OTHER FINDINGS: None. IMPRESSION: Increasing right lower lobe infiltrate and effusion
--- NOTE | 2018-04-11 13:54 | RAD ---
Date of service: 04/11/2018 HISTORY: post intubation COMPARISON: 04/11/2018 FINDINGS: LUNGS: The endotracheal tube is in satisfactory position PLEURA: Small right pleural effusion CARDIOVASCULAR: No aortic atherosclerotic calcification present. Normal cardiac size. No pulmonary vascular congestion. OSSEOUS STRUCTURES: No significant abnormalities. VISUALIZED UPPER ABDOMEN: Normal. OTHER FINDINGS: None. IMPRESSION: Endotracheal tube in satisfactory position
[2018-04-11 14:04] LABS: ARTERIAL BLOOD GAS HCO3 38.5 mmol/L (21-28); ARTERIAL BLOOD GAS HEMOGLOBIN 7.2 g/dL (11.7-17.4); ARTERIAL BLOOD GAS O2 CAPACITY 9.4 mL/dl (16-24); ARTERIAL BLOOD GAS O2 CONTENT 9.2 ML/dl (15-23); ARTERIAL BLOOD GAS O2 SAT 98.3 % (95-98); ARTERIAL BLOOD GAS PCO2 58 mm/Hg (35-45); ARTERIAL BLOOD GAS PH 7.43 (7.35-7.45); ARTERIAL BLOOD GAS TCO2 40.3 mmol.L (22-28)
[2018-04-11] MEDS ORDERED: Vancomycin 1gm in NS 250ml 1 GM/250 ML BAG IVPB STA (14:25)
[2018-04-11] MEDS: Cefepime 1gm in NS 100ml 1 GM/100 ML BAG IVPB SCH ×2 (14:36→21:53)
[2018-04-11] MEDS ORDERED: Insulin Reg-HIGH-Coverage SC SCH (14:45)
[2018-04-11] MEDS: Fentanyl 1000mcg/100ml NS 1,000 MCG/100 ML BAG IV PRN (15:09)
[2018-04-11] MEDS ORDERED: Insulin Regular 1 UNITS/0.01 ML ML ONE ×2 (15:21→20:26)
[2018-04-11] MEDS: Ergocalciferol 50,000 Intl Units Cap PO SCH (16:07)
--- NOTE | 2018-04-11 16:14 | CP.PCM.HP ---
<Aj Mays - Last Filed: 04/11/18 16:03> History of Present Illness - History of Present Illness History of Present Illness: Aj Mays PGY1, History and Physical for Dr Rdz Pt is intubated at the time of the history and physical, history and PMH is obtained from chart review. Pt is a 57yo female with a PMH of COPD, asthma, breast Ca, anxiety, DM, recurrent UTIs who left [facility] [place] yesterday AMA to smoke a cigarette. Pt was brought in my medics to the ED. Pt was then placed on CPAP and she was given duonebs. Pt was sedated and intubated in the ED. Pt will be admitted to the ICU. A 12 point ROS could not be obtained due to pt being intubated. PMH: COPD, asthma, breast Ca, anxiety, DM, recurrent UTIs PSH: stomach surgery (as per son); C-sections FH: Heart Problems, DM, CA SH: Tobacco 1 pack/day 40 years; Denies alcohol and drug use Allergies: levofloxacin, nystatin Present on Admission - Present on Admission Any Indicators Present on Admission: No Past Patient History - Infectious Disease Hx of Infectious Diseases: None - Tetanus Immunizations Tetanus Immunization: Unknown - Past Medical History & Family History Past Medical History?: Yes - Past Social History Smoking Status: Former Smoker - CARDIAC Hx Cardiac Disorders: Yes Hx Hypertension: Yes - PULMONARY Hx Chronic Obstructive Pulmonary Disease (COPD): Yes - NEUROLOGICAL Hx Neurological Disorder: No - HEENT Hx HEENT Problems: No - RENAL Hx Chronic Kidney Disease: No - ENDOCRINE/METABOLIC Hx Diabetes Mellitus Type 2: Yes - HEMATOLOGICAL/ONCOLOGICAL Hx Blood Disorders: Yes (blood transfusion) Hx Cancer: Yes (left breast dx 06/2015) Hx Chemotherapy: Yes (2016 as per son) - INTEGUMENTARY Hx Dermatological Problems: No - MUSCULOSKELETAL/RHEUMATOLOGICAL Hx Falls: Yes - GASTROINTESTINAL Hx Gastrointestinal Disorders: No - GENITOURINARY/GYNECOLOGICAL Hx Genitourinary Disorders: No - PSYCHIATRIC Hx Psychophysiologic Disorder: Yes Hx Anxiety: Yes Hx Depression: Yes Hx Substance Use: No - SURGICAL HISTORY Hx Surgeries: Yes - ANESTHESIA Hx Anesthesia: Yes Hx Anesthesia Reactions: No Hx Malignant Hyperthermia: No Meds Allergies/Adverse Reactions: Allergies Allergy/AdvReac Type Severity Reaction Status Date / Time levofloxacin [From Levaquin] Allergy SHORTNESS Verified 04/11/18 14:31 OF BREATH;PARANOID nystatin Allergy SWELLING Verified 04/11/18 14:31 Physical Exam - Constitutional Appears: In Acute Distress Additional comments: pt intubated and sedated during the exam - Head Exam Head Exam: ATRAUMATIC, NORMOCEPHALIC - ENT Exam ENT Exam: Mucous Membranes Moist - Neck Exam Neck exam: Positive for: Normal Inspection - Respiratory Exam Respiratory Exam: Rhonchi, Wheezes, Respiratory Distress. absent: Accessory Muscle Use - Cardiovascular Exam Cardiovascular Exam: RRR, +S1, +S2. absent: Diastolic murmur, Systolic Murmur - GI/Abdominal Exam GI & Abdominal Exam: Normal Bowel Sounds, Soft. absent: Rigid, Tenderness - Extremities Exam Extremities exam: Positive for: pedal edema - Skin Skin Exam: Dry, Normal Color, Warm Results - Vital Signs Recent Vital Signs: Last Vital Signs Temp 98.8 F 04/11/18 15:40 Pulse 88 04/11/18 15:40 Resp 18 04/11/18 15:40 BP 117/52 L 04/11/18 15:40 Pulse Ox 100 04/11/18 15:40 - Labs Result Diagrams: 04/11/18 12:25 04/11/18 12:25 Labs: Laboratory Results - last 24 hr 04/11/18 04/11/18 04/11/18 12:25 12:25 12:25 WBC 10.7 D RBC 2.59 L Hgb 7.3 L Hct 25.5 L MCV 98.5 MCH 28.2 MCHC 28.6 L RDW 20.4 H Plt Count 234 MPV 11.3 H Gran % 86.3 H Lymph % (Auto) 7.6 L [place] % (Auto) 5.9 Eos % (Auto) 0.1 L Baso % (Auto) 0.1 Gran # 9.26 H Lymph # (Auto) 0.8 L [place] # (Auto) 0.6 Eos # (Auto) 0.0 Baso # (Auto) 0.01 PT 11.9 INR 1.05 APTT 25.3 L pCO2 pO2 HCO3 ABG pH ABG Total CO2 ABG O2 Saturation ABG O2 Content ABG Base Excess ABG Hemoglobin ABG Carboxyhemoglobin POC ABG HHb (Measured) ABG Methemoglobin ABG O2 Capacity ABG Potassium Hgb O2 Saturation Glucose Lactate FiO2 Crit Value Called To Crit Value Called By Blood Gas Notified Time Sodium 145 Potassium 4.0 Chloride 103 Carbon Dioxide 39 H Anion Gap 7 L BUN 110 H Creatinine 2.5 H Est GFR ( Amer) 24 Est GFR (Non-Af Amer) 20 POC Glucose (mg/dL) Random Glucose 375 H* D Calcium 9.1 Phosphorus 3.9 Magnesium 2.5 H Total Bilirubin 0.4 AST 30 ALT 68 H Alkaline Phosphatase 74 Total Creatine Kinase 53 Troponin I 0.08 D NT-Pro-B Natriuret Pep 7140 H Total Protein 5.8 Albumin 3.4 Globulin 2.4 Albumin/Globulin Ratio 1.4 Arterial Blood Potassium Urine Color Urine Appearance Urine pH Ur Specific [place] Urine Protein Urine Glucose (UA) Urine Ketones Urine Blood Urine Nitrate Urine Bilirubin Urine Urobilinogen Ur Leukocyte Esterase Urine RBC Urine WBC Ur Epithelial Cells Urine Bacteria Urine Other Influenza Typ A,B (EIA) 04/11/18 04/11/18 04/11/18 12:30 12:45 12:45 WBC RBC Hgb Hct MCV MCH MCHC RDW Plt Count MPV Gran % Lymph % (Auto) [place] % (Auto) Eos % (Auto) Baso % (Auto) Gran # Lymph # (Auto) [place] # (Auto) Eos # (Auto) Baso # (Auto) PT INR APTT pCO2 100 H* pO2 385.0 H HCO3 40.9 H* ABG pH 7.22 L ABG Total CO2 44.0 H ABG O2 Saturation 100.6 H ABG O2 Content ABG Base Excess 9.1 H ABG Hemoglobin ABG Carboxyhemoglobin POC ABG HHb (Measured) ABG Methemoglobin ABG O2 Capacity ABG Potassium 3.8 Hgb O2 Saturation Glucose 372 H Lactate 0.5 L FiO2 100.0 Crit Value Called To reggie Shirley Crit Value Called By Lauren Blood Gas Notified Time 1242 Sodium 147.0 Potassium Chloride 110.0 H Carbon Dioxide Anion Gap BUN Creatinine Est GFR ( Amer) Est GFR (Non-Af Amer) POC Glucose (mg/dL) Random Glucose Calcium Phosphorus Magnesium Total Bilirubin AST ALT Alkaline Phosphatase Total Creatine Kinase Troponin I NT-Pro-B Natriuret Pep Total Protein Albumin Globulin Albumin/Globulin Ratio Arterial Blood Potassium 3.8 Urine Color Light yellow Urine Appearance Sl cloudy Urine pH 6.0 Ur Specific [place] 1.020 Urine Protein 30 H Urine Glucose (UA) 100 H Urine Ketones Negative Urine Blood Trace-intact H Urine Nitrate Negative Urine Bilirubin Negative Urine Urobilinogen 0.2 Ur Leukocyte Esterase Small H Urine RBC 0 - 2 Urine WBC 5 - 10 H Ur Epithelial Cells 0 - 2 Urine Bacteria Few Urine Other Uyeast Influenza Typ A,B (EIA) Negative for flu a/b 04/11/18 04/11/18 13:55 15:56 WBC RBC Hgb Hct MCV MCH MCHC RDW Plt Count MPV Gran % Lymph % (Auto) [place] % (Auto) Eos % (Auto) Baso % (Auto) Gran # Lymph # (Auto) [place] # (Auto) Eos # (Auto) Baso # (Auto) PT INR APTT pCO2 58 H pO2 67.0 L HCO3 38.5 H ABG pH 7.43 ABG Total CO2 40.3 H ABG O2 Saturation 98.3 H ABG O2 Content 9.2 L ABG Base Excess 12.8 H ABG Hemoglobin 7.2 L ABG Carboxyhemoglobin 7.4 H POC ABG HHb (Measured) 1.6 ABG Methemoglobin 0.7 ABG O2 Capacity 9.4 L ABG Potassium Hgb O2 Saturation 90.3 L Glucose Lactate FiO2 40.0 Crit Value Called To Crit Value Called By Blood Gas Notified Time Sodium Potassium Chloride Carbon Dioxide Anion Gap BUN Creatinine Est GFR ( Amer) Est GFR (Non-Af Amer) POC Glucose (mg/dL) 384 H Random Glucose Calcium Phosphorus Magnesium Total Bilirubin AST ALT Alkaline Phosphatase Total Creatine Kinase Troponin I NT-Pro-B Natriuret Pep Total Protein Albumin Globulin Albumin/Globulin Ratio Arterial Blood Potassium Urine Color Urine Appearance Urine pH Ur Specific [place] Urine Protein Urine Glucose (UA) Urine Ketones Urine Blood Urine Nitrate Urine Bilirubin Urine Urobilinogen Ur Leukocyte Esterase Urine RBC Urine WBC Ur Epithelial Cells Urine Bacteria Urine Other Influenza Typ A,B (EIA) Assessment & Plan - Assessment and Plan (Free Text) Assessment: Pt is a 57yo female with a PMH of COPD, asthma, breast Ca, anxiety, DM, recurrent UTIs who left [facility] [place] yesterday AMA to smoke a cigarette. Pt was brought in my medics to the ED. Pt was then placed on CPAP and she was given duonebs. Pt was sedated and intubated in the ED. Plan: Acute Hypercapnic Respiratory Failure - pt admitted to the ICU - PCO2 58, PO2 67, HCO3 38.5, pH 7.43, improving from admission - blood cultures follow up - ABG follow up - fetanyl drip - midazolam PNA - strep pneumo antigen follow up - legionella follow up - procal follow up - cefepime - CXR tomorrow AM - Chest CT follow up - ID consulted COPD - IV methylprednisolone - duonebs Asthma - duonebs DAHLIA - nephrology consulted, Dr Chatman Breast Ca - Palliative care consulted DM - accuchecks q6 - SSI med HLD - lipitor Ppx - heparin - protonix Pt seen, examined, assessment and plan discussed with Dr Kajal Mays PGY1 - Date & Time Date: 04/11/18 Time: 16:27 <Darius Rdz - Last Filed: 04/12/18 15:31> Results - Vital Signs Recent Vital Signs: Last Vital Signs Temp 98.4 F 04/12/18 07:24 Pulse 104 H 04/12/18 10:00 Resp 24 04/12/18 13:34 BP 145/60 04/12/18 12:57 Pulse Ox 98 04/12/18 08:10 - Labs Result Diagrams: 04/12/18 08:00 04/12/18 06:15 Labs: Laboratory Results - last 24 hr 04/11/18 04/11/18 04/11/18 13:00 14:00 15:00 WBC RBC Hgb Hct MCV MCH MCHC RDW Plt Count MPV Gran % Lymph % (Auto) [place] % (Auto) Eos % (Auto) Baso % (Auto) Gran # Lymph # (Auto) [place] # (Auto) Eos # (Auto) Baso # (Auto) Neutrophils % (Manual) Lymphocytes % (Manual) Monocytes % (Manual) Platelet Evaluation Large Platelets Retic Count 2.07 H pCO2 pO2 HCO3 ABG pH ABG Total CO2 ABG O2 Saturation ABG O2 Content ABG Base Excess ABG Hemoglobin ABG Carboxyhemoglobin POC ABG HHb (Measured) ABG Methemoglobin ABG O2 Capacity Hgb O2 Saturation FiO2 Sodium Potassium Chloride Carbon Dioxide Anion Gap BUN Creatinine Est GFR ( Amer) Est GFR (Non-Af Amer) POC Glucose (mg/dL) Random Glucose Calcium Total Bilirubin AST ALT Alkaline Phosphatase Total Protein Albumin Globulin Albumin/Globulin Ratio Procalcitonin 0.55 H Ur L.pneumophila Ag Negative Blood Type Antibody Screen Crossmatch BBK History Checked 04/11/18 04/11/18 04/11/18 15:15 15:56 20:03 WBC RBC Hgb Hct MCV MCH MCHC RDW Plt Count MPV Gran % Lymph % (Auto) [place] % (Auto) Eos % (Auto) Baso % (Auto) Gran # Lymph # (Auto) [place] # (Auto) Eos # (Auto) Baso # (Auto) Neutrophils % (Manual) Lymphocytes % (Manual) Monocytes % (Manual) Platelet Evaluation Large Platelets Retic Count pCO2 pO2 HCO3 ABG pH ABG Total CO2 ABG O2 Saturation ABG O2 Content ABG Base Excess ABG Hemoglobin ABG Carboxyhemoglobin POC ABG HHb (Measured) ABG Methemoglobin ABG O2 Capacity Hgb O2 Saturation FiO2 Sodium Potassium Chloride Carbon Dioxide Anion Gap BUN Creatinine Est GFR ( Amer) Est GFR (Non-Af Amer) POC Glucose (mg/dL) 402 H* 384 H 227 H Random Glucose Calcium Total Bilirubin AST ALT Alkaline Phosphatase Total Protein Albumin Globulin Albumin/Globulin Ratio Procalcitonin Ur L.pneumophila Ag Blood Type Antibody Screen Crossmatch BBK History Checked 04/11/18 04/12/18 04/12/18 23:59 04:18 05:00 WBC RBC Hgb Hct MCV MCH MCHC RDW Plt Count MPV Gran % Lymph % (Auto) [place] % (Auto) Eos % (Auto) Baso % (Auto) Gran # Lymph # (Auto) [place] # (Auto) Eos # (Auto) Baso # (Auto) Neutrophils % (Manual) Lymphocytes % (Manual) Monocytes % (Manual) Platelet Evaluation Large Platelets Retic Count pCO2 45 pO2 72.0 L HCO3 36.7 H ABG pH 7.52 H ABG Total CO2 38.1 H ABG O2 Saturation 98.8 H ABG O2 Content 8.9 L ABG Base Excess 12.7 H ABG Hemoglobin 6.5 L ABG Carboxyhemoglobin 2.0 H POC ABG HHb (Measured) 1.2 ABG Methemoglobin 1.1 ABG O2 Capacity 9.0 L Hgb O2 Saturation 95.8 FiO2 40.0 Sodium Potassium Chloride Carbon Dioxide Anion Gap BUN Creatinine Est GFR ( Amer) Est GFR (Non-Af Amer) POC Glucose (mg/dL) 153 H 183 H Random Glucose Calcium Total Bilirubin AST ALT Alkaline Phosphatase Total Protein Albumin Globulin Albumin/Globulin Ratio Procalcitonin Ur L.pneumophila Ag Blood Type Antibody Screen Crossmatch BBK History Checked 04/12/18 04/12/18 04/12/18 06:15 06:15 07:30 WBC 7.8 D RBC 2.36 L Hgb 6.6 L* Hct 22.7 L MCV 96.2 MCH 28.0 MCHC 29.1 L RDW 21.1 H Plt Count 234 MPV 11.1 H Gran % Lymph % (Auto) [place] % (Auto) Eos % (Auto) Baso % (Auto) Gran # Lymph # (Auto) [place] # (Auto) Eos # (Auto) Baso # (Auto) Neutrophils % (Manual) Lymphocytes % (Manual) Monocytes % (Manual) Platelet Evaluation Large Platelets Retic Count pCO2 pO2 HCO3 ABG pH ABG Total CO2 ABG O2 Saturation ABG O2 Content ABG Base Excess ABG Hemoglobin ABG Carboxyhemoglobin POC ABG HHb (Measured) ABG Methemoglobin ABG O2 Capacity Hgb O2 Saturation FiO2 Sodium 147 Potassium 4.0 Chloride 108 H Carbon Dioxide 35 H Anion Gap 8 L BUN 106 H Creatinine 2.5 H Est GFR ( Amer) 24 Est GFR (Non-Af Amer) 20 POC Glucose (mg/dL) 180 H Random Glucose 156 H Calcium 8.9 Total Bilirubin 0.6 AST 30 ALT 55 Alkaline Phosphatase 62 Total Protein 5.2 L Albumin 3.0 Globulin 2.2 Albumin/Globulin Ratio 1.4 Procalcitonin Ur L.pneumophila Ag Blood Type Antibody Screen Crossmatch BBK History Checked 04/12/18 04/12/18 04/12/18 08:00 08:00 08:21 WBC 10.3 D RBC 2.57 L Hgb 7.2 L Hct 24.5 L MCV 95.3 MCH 28.0 MCHC 29.4 L RDW 21.1 H Plt Count 222 MPV 10.5 Gran % 93.8 H Lymph % (Auto) 3.8 L [place] % (Auto) 2.4 Eos % (Auto) 0.0 L Baso % (Auto) 0.0 Gran # 9.68 H Lymph # (Auto) 0.4 L [place] # (Auto) 0.3 Eos # (Auto) 0.0 Baso # (Auto) 0.00 Neutrophils % (Manual) 91 H Lymphocytes % (Manual) 8 L Monocytes % (Manual) 1 Platelet Evaluation Normal Large Platelets Present Retic Count pCO2 55 H pO2 69.0 L HCO3 36.5 H ABG pH 7.43 ABG Total CO2 38.2 H ABG O2 Saturation 97.7 ABG O2 Content 9.3 L ABG Base Excess 11.0 H ABG Hemoglobin 6.9 L ABG Carboxyhemoglobin 2.1 H POC ABG HHb (Measured) 2.2 ABG Methemoglobin 1.2 ABG O2 Capacity 9.5 L Hgb O2 Saturation 94.5 L FiO2 40.0 Sodium Potassium Chloride Carbon Dioxide Anion Gap BUN Creatinine Est GFR ( Amer) Est GFR (Non-Af Amer) POC Glucose (mg/dL) Random Glucose Calcium Total Bilirubin AST ALT Alkaline Phosphatase Total Protein Albumin Globulin Albumin/Globulin Ratio Procalcitonin Ur L.pneumophila Ag Blood Type B POSITIVE Antibody Screen Negative Crossmatch See Detail BBK History Checked Patient has bt 04/12/18 11:25 WBC RBC Hgb Hct MCV MCH MCHC RDW Plt Count MPV Gran % Lymph % (Auto) [place] % (Auto) Eos % (Auto) Baso % (Auto) Gran # Lymph # (Auto) [place] # (Auto) Eos # (Auto) Baso # (Auto) Neutrophils % (Manual) Lymphocytes % (Manual) Monocytes % (Manual) Platelet Evaluation Large Platelets Retic Count pCO2 pO2 HCO3 ABG pH ABG Total CO2 ABG O2 Saturation ABG O2 Content ABG Base Excess ABG Hemoglobin ABG Carboxyhemoglobin POC ABG HHb (Measured) ABG Methemoglobin ABG O2 Capacity Hgb O2 Saturation FiO2 Sodium Potassium Chloride Carbon Dioxide Anion Gap BUN Creatinine Est GFR ( Amer) Est GFR (Non-Af Amer) POC Glucose (mg/dL) 206 H Random Glucose Calcium Total Bilirubin AST ALT Alkaline Phosphatase Total Protein Albumin Globulin Albumin/Globulin Ratio Procalcitonin Ur L.pneumophila Ag Blood Type Antibody Screen Crossmatch BBK History Checked Attending/Attestation - Attestation I have personally seen and examined this patient.: Yes I have fully participated in the care of the patient.: Yes I have reviewed all pertinent clinical information: Yes Notes (Text): 04/12/18 15:10 Attending note; Patient seen and examined with resident in ER. Patient is currently intubated. No family by the bedside. History from the chart review. Patient is a 57-year-old female with a PMH of COPD, asthma, breast Ca, not treated, anemia, anxiety, DM, recurrent UTIs who left [facility] [place] yesterday AMA from Dr. Sosa's service. Patient was brought in my medics to the ED with respiratory distress. 1. Acute hypercapnic respiratory failure; patient with a history of long- standing COPD. Patient actively smokes. Initially treated with CPAP and then intubated in the ER. Currently on ventilator/sedated. ICU evaluation requested. Continue weaning protocol and Vent management per ICU. Continue DuoNeb and IV Solu-Medrol. 2. Pneumonia; chest x-ray shows right lower lobe infiltrate with possible effusion. CT chestv ordered. Started on IV vancomycin and cefepime. ID evaluation requested. 3. Anemia; patient has chronic anemia. Multifactorial. Monitor closely. 4. History of breast cancer; did not completed treatment. 5. Hypertension; monitor blood pressure closely. Add metoprolol. 6. Active smoking. Will educate the patient about smoking cessation once awake. Monitor the patient closely in ICU. Weaning protocol. Prognosis is poor secondary to multiple medical problems and noncompliance with follow-up. Upon discharge the patient will follow up with PMD Dr. Sosa. 04/12/18 15:29
[2018-04-11] MEDS ORDERED: Insulin Reg-MEDIUM-Coverage SC SCH (16:30)
--- NOTE | 2018-04-11 17:23 | RAD ---
Date of service: 04/11/2018 HISTORY: confirm OG tube placement COMPARISON: Chest radiograph performed approximately 1.5 hours prior. FINDINGS: LUNGS: Pulmonary vascular congestion. Right basilar atelectasis. PLEURA: Moderate right pleural effusion. No pneumothorax apparent. CARDIOVASCULAR: Aortic atherosclerotic calcifications. Cardiomediastinal silhouette stably enlarged. OSSEOUS STRUCTURES: Unchanged. VISUALIZED UPPER ABDOMEN: Normal. OTHER FINDINGS: Endotracheal tube tip in the right mainstem bronchus. 1-2 cm retraction is recommended. Enteric tube in satisfactory position. Right internal jugular access chest port, unchanged. IMPRESSION: Endotracheal tube tip in the right mainstem bronchus. 1-2 cm retraction is recommended. Enteric tube in satisfactory position. Stable pulmonary vascular congestion and moderate right pleural effusion.
--- NOTE | 2018-04-11 19:01 | PN ---
DATE: 04/11/2018 SUBJECTIVE: This is a 57-year-old female with history of COPD, asthma, breast cancer, anxiety, diabetes type 2, recurrent UTIs who presented to emergency department with respiratory distress and was found to be in hypercapnic respiratory failure. The patient was emergently intubated as she failed the short trial of noninvasive positive pressure ventilation. Thus most of the past medical history, history of present illness, and other information was provided through available records including ER records. The patient reported that she smoked cigarette in the morning and her shortness of breath deteriorated after that. She called 911 and when EMS arrived, they placed the patient on CPAP and DuoNeb. She did notice some improvement in dyspnea, however, at the point of arrival to ER, her shortness of breath returned and became worse. Also of note, the patient left the hospital yesterday against medical advice as the patient wanted to smoke. She was admitted there for sepsis and hypercapnic respiratory failure requiring intubation with CHF and COPD as a contributing comorbidities. Her septic workup at that time was negative. PAST MEDICAL HISTORY: Diabetes type 2 with COPD, asthma, breast cancer, anxiety, chronic back pain, recurrent UTIs. FAMILY HISTORY: Noncontributory. SOCIAL HISTORY: The patient is active smoker. No alcohol or illicit drug abuse. ALLERGIES : LEVOFLOXACIN AND NYSTATIN. HOME MEDICATIONS: Advair, aspirin, Pepcid, Percocet, simvastatin. REVIEW OF SYSTEM: Review of 12-organ system other than mentioned in history of present illness is negative. PHYSICAL EXAMINATION: GENERAL: Text. VITAL SIGNS: Heart rate 98, temperature 96.8, blood pressure 132/57, respiratory rate 22, oxygen saturation 97% on PRVC. Vt 400 HEENT: Head and neck atraumatic. The patient is intubated. CARDIOPULMONARY: Regular rate and rhythm. S1, S2 normal. LUNGS: Few wheezes bilaterally. ABDOMEN: Soft, nontender, nondistended. MUSCULOSKELETAL: There is a area of acute cellulitis in the left centeno. SKIN: Moist. PSYCH: The patient is sedated, but appears to be open eyes on command. LABORATORY DATA: Chest x-ray showed some right-sided pleural effusion. Port-A-Cath terminating in the SVC. Endotracheal tube about 4 cm above gen. The left lung without active pulmonary disease. WBC 10.7, hemoglobin 7.3, platelet count 234. Sodium 145, potassium 4, chloride 103, carbon dioxide 39, BUN 110, creatinine 2.5, glucose 375, (the AST 30, ALT 68. ProBNP 7140, albumin 3.4. INR 1.05. PTT 25.3. ABG after intubation 7.43/58/67 on 40% FIO2 (prior intubation pH was 7.22, pCO2 100, PO2 of 385. Influenza serology negative). ASSESSMENT AND PLAN: This 57 old lady who presented with hypercapnic respiratory failure secondary to chronic obstructive pulmonary disease exacerbation in the setting of community-acquired pneumonia with pleural effusion. Alternative source of infection might be acute cellulitis on the left lower extremity. At present time, we will proceed with broad spectrum antibiotics and ID consult. Blood culture, urine culture, procalcitonin, urine for Legionella and streptococcal antigen, Steroid taper, bronchodilators, pulmonary toilet. As the patient was admitted with hypercapnic respiratory failure acquiring intubation, we will make sure that we would avoid hyperventilation and maintain a I:E ratio more than 1: 2.5. We will continue with [id number] tidal volume with tidal volume below 10 mL per predicted body weight and plateau pressure less than 25 cmH20. We will continue with head of bed elevated more than 35 degrees. Oral hygiene. Daily weaning trial and sedation vacation. Conservative fluid and oxygen management. The patient does have acute kidney injury. We will try to maintain euvolemia and even fluid balance. Will get nephrology consult. Will get echocardiogram to assess left and right ventricles. We will try to avoid hyperchloremia. Maintain mean arterial pressure more than 65. We will try to aggressively correct blood glucose without venturing into hypoglycemia territory. We will get Nephrology consult. We will maintain blood glucose within 140 to 180 range according to trial. ccm time 40 min Rey Santiago MD SAADIA
[2018-04-11] MEDS ORDERED: Influenza Vaccine 60 mcg/0.5 mL SYR (4YR UP) IM ONE (19:50)
[2018-04-11] MEDS ORDERED: Pneumococcal 23-Valent Vaccine IM ONE (19:50)
[2018-04-11] MEDS: MethylPREDNISolone 40 mg Vial IVP SCH (21:53)
--- NOTE | 2018-04-12 00:04 | CARD ---
APPROVED REPORT Date of service: 04/11/2018 EKG Measurement Heart [id number] <Conclusion> Sinus rhythm with short IN with premature atrial complexes with aberrant conduction Otherwise normal ECG
[2018-04-12] MEDS: Insulin Reg-MEDIUM-Coverage SC SCH ×5 (00:50→18:25)
[2018-04-12] MEDS: Fentanyl 1000mcg/100ml NS 1,000 MCG/100 ML BAG IV PRN (03:56)
[2018-04-12 05:41] LABS: ARTERIAL BLOOD GAS HCO3 36.7 mmol/L (21-28); ARTERIAL BLOOD GAS HEMOGLOBIN 6.5 g/dL (11.7-17.4); ARTERIAL BLOOD GAS O2 CONTENT 8.9 ML/dl (15-23); ARTERIAL BLOOD GAS O2 SAT 98.8 % (95-98); ARTERIAL BLOOD GAS PCO2 45 mm/Hg (35-45); ARTERIAL BLOOD GAS PH 7.52 (7.35-7.45); ARTERIAL BLOOD GAS TCO2 38.1 mmol.L (22-28)
[2018-04-12] MEDS: MethylPREDNISolone 40 mg Vial IVP SCH ×3 (05:55→18:24)
[2018-04-12] MEDS: Cefepime 1gm in NS 100ml 1 GM/100 ML BAG IVPB SCH ×3 (05:56→22:00)
[2018-04-12 06:32] LABS: MEAN CELL VOLUME 96.2 fl (80.0-105.0); MEAN CORPUSCULAR HGB CONC 29.1 g/dl (31.0-37.0); MEAN PLATELET VOLUME 11.1 fl (7.0-11.0); RBC 2.36 10^6/uL (3.5-6.1); RED CELL DISTRIBUTION WIDTH 21.1 % (11.5-14.5); WHITE BLOOD COUNT 7.8 10^3/uL (4.5-11.0)
[2018-04-12 06:55] LABS: ALB/GLOB RATIO 1.4 (1.1-1.8); CALCIUM 8.9 mg/dL (8.4-10.5)
[2018-04-12 07:04] LABS: HEMOGLOBIN 6.6 g/dL (12.0-16.0)
[2018-04-12] MEDS: Albuterol-Ipratrop 3 mg / 0.5 (3 ml) UD IH PRN ×3 (07:21→18:16)
[2018-04-12 08:12] LABS: GRAN # 9.68 (1.4-6.5); GRAN % 93.8 % (50.0-68.0); HEMOGLOBIN 7.2 g/dL (12.0-16.0); LYMPH # 0.4 (1.2-3.4); LYMPH % 3.8 % (22.0-35.0); MEAN CELL VOLUME 95.3 fl (80.0-105.0); MEAN CORPUSCULAR HGB CONC 29.4 g/dl (31.0-37.0); MEAN PLATELET VOLUME 10.5 fl (7.0-11.0); MONO # 0.3 (0.1-0.6); MONO % 2.4 % (1.0-6.0); PLATELET COUNT 222 10^3/uL (120.0-450.0); RBC 2.57 10^6/uL (3.5-6.1); RED CELL DISTRIBUTION WIDTH 21.1 % (11.5-14.5); WHITE BLOOD COUNT 10.3 10^3/uL (4.5-11.0)
[2018-04-12 08:23] LABS: ARTERIAL BLOOD GAS HCO3 36.5 mmol/L (21-28); ARTERIAL BLOOD GAS HEMOGLOBIN 6.9 g/dL (11.7-17.4); ARTERIAL BLOOD GAS O2 CAPACITY 9.5 mL/dl (16-24); ARTERIAL BLOOD GAS O2 CONTENT 9.3 ML/dl (15-23); ARTERIAL BLOOD GAS O2 SAT 97.7 % (95-98); ARTERIAL BLOOD GAS PCO2 55 mm/Hg (35-45); ARTERIAL BLOOD GAS PH 7.43 (7.35-7.45); ARTERIAL BLOOD GAS TCO2 38.2 mmol.L (22-28)
[2018-04-12 08:28] LABS: LYMPHOCYTE 8 % (22.0-35.0); MONOCYTE 1 % (1.0-6.0); NEUTROPHIL 91 % (50.0-70.0)
[2018-04-12 08:29] LABS: LARGE PLATELETS PRESENT; PLATELET ESTIMATE NORMAL (NORMAL)
--- NOTE | 2018-04-12 08:31 | CT ---
Date of service: 04/11/2018 PROCEDURE: CT Chest without contrast HISTORY: parapneumonic effusion COMPARISON: 03/11/2018 TECHNIQUE: Contiguous axial images were obtained through the chest without intravenous contrast enhancement. Sagittal and coronal reconstructions were performed. Radiation dose: Total exam DLP = 764.51 mGy-cm. This CT exam was performed using one or more of the following dose reduction techniques: Automated exposure control, adjustment of the mA and/or kV according to patient size, and/or use of iterative reconstruction technique. FINDINGS: LUNGS: There is a decrease in the right lower lobe consolidation and adjacent pleural effusion. There is some residual consolidation at the right lung base posteriorly. There is only a minimal effusion on the current exam. There is a chronic area of scarring or consolidation in the posterior aspect of the right lung apex. There is volume loss in the right lung MEDIASTINUM: Unremarkable thoracic aorta. No aneurysm. Normal sized heart. Main pulmonary artery unremarkable. No vascular congestion. No lymphadenopathy. No aortic atherosclerotic calcification. PLEURA: Decreased size of right-sided pleural effusion BONES: No fracture. No destructive lesion. UPPER ABDOMEN: Grossly unremarkable. OTHER FINDINGS: Endotracheal tube and nasogastric tube in satisfactory position Calcifications are seen in the left upper quadrant of the left breast. Mammographic correlation is suggested to rule out a breast malignancy The report concurs with the preliminary [facility] report IMPRESSION: There is a decrease in the right lower lobe consolidation and adjacent pleural effusion. There is some residual consolidation at the right lung base posteriorly. There is only a minimal effusion on the current exam. There is a chronic area of scarring or consolidation in the posterior aspect of the right lung apex. Calcifications are seen in the left upper quadrant of the left breast. Mammographic correlation is suggested to rule out a breast malignancy
--- NOTE | 2018-04-12 08:47 | RAD ---
Date of service: 04/12/2018 HISTORY: COPD exacerbation COMPARISON: 04/11/2018 FINDINGS: LUNGS: Slight improvement in right lower lobe infiltrate and effusion. Endotracheal and nasogastric tubes unchanged. PLEURA: No significant pleural effusion identified, no pneumothorax apparent. CARDIOVASCULAR: No aortic atherosclerotic calcification present. Normal cardiac size. No pulmonary vascular congestion. OSSEOUS STRUCTURES: No significant abnormalities. VISUALIZED UPPER ABDOMEN: Normal. OTHER FINDINGS: None. IMPRESSION: Slight improvement in right lower lobe infiltrate and effusion. Endotracheal and nasogastric tubes unchanged.
--- NOTE | 2018-04-12 08:54 | PN ---
DATE: 04/12/2018 SUBJECTIVE: The patient seen and examined at bedside. She is off of sedation. She is sleepy but easily arousable. When she is arousable, she is following commands. Her rapid shallow breathing index on pressure support 5/5 with FiO2 40% is 29 and her oxygen saturation 98%. End-tidal CO2 on the monitor 52 (ABG will be done at the end of pressure support trial). OBJECTIVE: VITAL SIGNS: Heart rate 107, blood pressure 132/46. ENT: Head and neck atraumatic. The patient is intubated. LUNGS: Clear auscultation bilaterally. HEART: Regular rate and rhythm. S1, S2 normal. ABDOMEN: Soft, nontender, nondistended. MUSCULOSKELETAL: No C/C/E. The area of cellulitis in the left lower extremity resolved. NEUROLOGIC: The patient moves all extremities spontaneously. SKIN: Color moist. PSYCH: Patient is sleepy, however, easily arousable and when is, following commands. LABORATORY DATA: WBC 7.8, hemoglobin 6.6 (1 unit of blood will be transfused), platelet count 234. Sodium 147, potassium 4, chloride 108, carbon dioxide 35, BUN 106, creatinine 2.5, glucose 156. ProBNP is 7140. INR 1 and 0.05. Influenza serology is negative. ABG prior to pressure support trial 7.52/45 with pO2 72 on 40% FiO2. Chest x-ray today showed severe persistent small pleural effusion in the right lower lobe, questionable infiltrate in the right lower lobe. Unchanged CT scan of the chest performed yesterday, confirmed presence of air bronchograms in the right lower lobe with small pleural effusion. Findings suspicious for malignancy in the left breast were also noted. Dr. Gleason consultation is pending to comment on that. The patient is known to have a history of breast cancer and has Port-A-Cath for chemotherapy in the right chest. ASSESSMENT AND PLAN: This is 57-year-old lady who presented with hypercapnic respiratory failure requiring intubation, (now resolved) in the setting of chronic obstructive pulmonary disease exacerbation and community-acquired pneumonia. At present time, we will proceed with pressure support trial and extubation if the patient tolerated it. We will continue with head of bed elevated >35 degrees, oral hygiene. We will maintain even fluid balance to avoid renal hypoperfusion and at the same time avoid fluid overload with subsequent pulmonary edema. We will continue with antibiotics, bronchodilators, steroid taper. Pulmonary toilet, incentive spirometry, chest PT. The area of left lower extremity's acute cellulitis resolved. We will continue target euvolemia, euglycemia, normothermia and oxygen saturation more than 90%. We are waiting for Dr. Gleason comment on CT scan findings suspicious for left breast malignancy. We will continue with DVT, GI prophylaxis. Moderate anemia may be related to critical illness, chronic kidney disease. No obvious signs of bleeding. No hematemesis, no melena. No coffee-ground discharge from the NG tube. Abdomen is soft. Addendum: Patient was successfully extubated to BPAP, but shortly refused BPAP and did well on high flow ccm time 40 min Rey Santiago MD MTDJuan
--- NOTE | 2018-04-12 09:09 | CP.CCUPN ---
CCU Subjective - Physician Review Subjective (Free Text): Lizzette Garnica, PGY-1, ICU Progress Note for Dr. Santiago Patient seen and evaluated at bedside. Patient had no acute overnight events. Though patient was intubated and sedated, patient was arousable but agitated at times. 12-point ROS was unattainable due to recent extubation status. CCU Objective - Vital Signs / Intake & Output Vital Signs (Last 4 hours): Vital Signs Temp Pulse Resp BP Pulse Ox 04/12/18 08:42 20 04/12/18 08:10 107 H 98 04/12/18 08:00 106 H 132/46 L 93 L 04/12/18 07:50 105 H 99 04/12/18 07:41 26 H 99 04/12/18 07:40 105 H 98 04/12/18 07:30 103 H 135/66 92 L 04/12/18 07:24 98.4 F 107 H 14 99 04/12/18 07:20 88 99 04/12/18 07:10 85 99 04/12/18 07:00 85 123/44 L 98 04/12/18 06:50 85 100 04/12/18 06:40 88 100 04/12/18 06:30 91 H 128/52 L 95 04/12/18 06:20 85 100 04/12/18 06:10 87 99 04/12/18 06:00 85 122/45 L 97 04/12/18 05:50 85 98 04/12/18 05:40 84 98 04/12/18 05:30 88 124/47 L 86 L 04/12/18 05:20 90 99 04/12/18 05:10 86 97 Intake and Output (Last 8hrs): Intake & Output 04/11/18 04/12/18 04/12/18 22:59 06:59 14:59 Intake Total 24 686.5 Output Total 500 700 Balance -476 -13.5 Weight 176 lb 6 oz 175 lb 1.92 oz Intake: IV 24 486.5 Fentanyl 142 Left Antecubital 8 Left Wrist 216 Versed 33 Oral 0 Tube Feeding 0 TPN/PPN 0 Blood Product 0 Lipid 0 Albumin 0 Other 200 Output: Urine 500 700 Urethral (Ray) 500 700 Stool 0 Urine/Stool Mix 0 Emesis 0 Oral Regurgitation 0 Other 0 Other: Voiding Method Toilet # Voids Urethral (Ray) 0 # Bowel Movements 0 - Physical Exam Head: Positive for: Atraumatic, Normocephalic Pupils: Positive for: PERRL Extroacular Muscles: Positive for: EOMI Conjunctiva: Positive for: Normal Mouth: Positive for: Moist Mucous Membranes Neck: Positive for: Normal Range of Motion Respiratory/Chest: Positive for: Clear to Auscultation, Tachypneic, Other (Pt has a mediport on right chest wall) Cardiovascular: Positive for: Regular Rate and Rhythm, Normal S1, S2. Negative for: Murmurs Abdomen: Negative for: Tenderness, Distention, Peritoneal Signs Back: Positive for: Normal Inspection Upper Extremity: Positive for: Normal Inspection. Negative for: Cyanosis, Edema Lower Extremity: Positive for: Edema (2+ pitting edema bilaterally). Negative for: Normal Inspection Neurological: Positive for: Other (recently extubated). Negative for: Speech Normal (patient speaking in 2 word sentences) Skin: Positive for: Warm, Dry, Normal Color. Negative for: Rashes - Medications Active Medications: Active Medications Generic Name Dose Route Start Last Admin Trade Name Freq PRN Reason Stop Dose Admin Albuterol/Ipratropium 3 ml 04/11/18 15:53 04/12/18 07:21 Duoneb 3 Mg/0.5 Mg (3 Ml) Ud IH 3 ml Q2H PRN Administration Shortness of Breath Aspirin 81 mg 04/12/18 10:00 Aspirin Chewable PO DAILY [facility] Atorvastatin Calcium 40 mg 04/11/18 14:15 04/11/18 16:07 Lipitor PO Not Given DAILY [facility] Ergocalciferol 1 cap 04/11/18 16:00 04/11/18 16:07 Drisdol 50,000 Intl Units Cap PO Not Given Q7D [facility] Heparin Sodium (Porcine) 5,000 units 04/11/18 14:45 04/12/18 05:55 Heparin SC 5,000 units Q8H LUCIANO Administration Protocol Fentanyl Citrate 1,000 mcg in 100 mls @ 2 mls/hr 04/11/18 13:11 04/12/18 03:56 Fentanyl Citrate/Sodium Chloride 1 Mg/100 Ml IV 140 mcg/hr .Q24H PRN 14 mls/hr TITRATE PER MD ORDER Administration Protocol 20 MCG/HR Midazolam 100 mg/100ml in NS 100 mg in 100 mls @ 1 mls/hr 04/11/18 13:11 04/12/18 04:00 Midazolam 100 Mg/100ml In Ns IV 7 mg/hr .Q24H PRN 7 mls/hr Sedation Titration Protocol 1 MG/HR Cefepime HCl 1 gm in 100 mls @ 100 mls/hr 04/11/18 14:30 04/12/18 05:56 Maxipime 1gm IVPB 100 mls/hr Q8 LUCIANO Administration Protocol Insulin Human Regular 0 units 04/12/18 00:00 04/12/18 08:07 Humulin R Med SC 1 unit Q4 LUCIANO Administration Protocol Methylprednisolone 20 mg 04/12/18 08:15 Solu-Medrol IVP Q8H LUCIANO Nicotine 1 patch 04/12/18 10:00 04/12/18 09:01 Nicoderm Cq TD 1 patch DAILY LUCIANO Administration Pantoprazole Sodium 40 mg 04/11/18 14:45 04/12/18 09:01 Protonix Inj IVP 40 mg DAILY LUCIANO Administration - Patient Studies Lab Studies: Lab Studies 04/12/18 04/12/18 04/12/18 Range/Units 08:21 08:00 08:00 WBC 10.3 D (4.5-11.0) 10^3/uL RBC 2.57 L (3.5-6.1) 10^6/uL Hgb 7.2 L (12.0-16.0) g/dL Hct 24.5 L (36.0-48.0) % MCV 95.3 (80.0-105.0) fl MCH 28.0 (25.0-35.0) pg MCHC 29.4 L (31.0-37.0) g/dl RDW 21.1 H (11.5-14.5) % Plt Count 222 (120.0-450.0) 10^3/uL MPV 10.5 (7.0-11.0) fl Gran % 93.8 H (50.0-68.0) % Lymph % (Auto) 3.8 L (22.0-35.0) % Dickson % (Auto) 2.4 (1.0-6.0) % Eos % (Auto) 0.0 L (1.5-5.0) % Baso % (Auto) 0.0 (0.0-3.0) % Gran # 9.68 H (1.4-6.5) Lymph # (Auto) 0.4 L (1.2-3.4) Dickson # (Auto) 0.3 (0.1-0.6) Eos # (Auto) 0.0 (0.0-0.7) Baso # (Auto) 0.00 (0.0-2.0) K/mm3 Neutrophils % (Manual) 91 H (50.0-70.0) % Lymphocytes % (Manual) 8 L (22.0-35.0) % Monocytes % (Manual) 1 (1.0-6.0) % Platelet Evaluation Normal (NORMAL) Large Platelets Present Retic Count (0.5-1.5) % PT (9.4-12.5) SECONDS INR APTT (26.9-38.3) Seconds pCO2 55 H (35-45) mm/Hg pO2 69.0 L (80-100) mm/Hg HCO3 36.5 H (21-28) mmol/L ABG pH 7.43 (7.35-7.45) ABG Total CO2 38.2 H (22-28) mmol.L ABG O2 Saturation 97.7 (95-98) % ABG O2 Content 9.3 L (15-23) ML/dl ABG Base Excess 11.0 H (-2.0-3.0) mmol/L ABG Hemoglobin 6.9 L (11.7-17.4) g/dL ABG Carboxyhemoglobin 2.1 H (0.5-1.5) % POC ABG HHb (Measured) 2.2 (0-5) % ABG Methemoglobin 1.2 (0.0-3.0) % ABG O2 Capacity 9.5 L (16-24) mL/dl ABG Potassium (3.6-5.2) mmol/L Hgb O2 Saturation 94.5 L (95.0-98.0) % Glucose (65-105) mg/dl Lactate (0.7-2.1) mmol/L FiO2 40.0 % Crit Value Called To Crit Value Called By Blood Gas Notified Time Sodium (132-148) mmol/L Potassium (3.6-5.0) mmol/L Chloride (98-107) mmol/L Carbon Dioxide (21-33) mmol/L Anion Gap (10-20) BUN (7-21) mg/dL Creatinine (0.7-1.2) mg/dl Est GFR ( Amer) Est GFR (Non-Af Amer) POC Glucose (mg/dL) (65-110) mg/dL Random Glucose (70-110) mg/dL Calcium (8.4-10.5) mg/dL Phosphorus (2.5-4.5) mg/dL Magnesium (1.7-2.2) mg/dL Total Bilirubin (0.2-1.3) mg/dL AST (14-36) U/L ALT (7-56) U/L Alkaline Phosphatase (38-126) U/L Total Creatine Kinase (35-230) U/L Troponin I ng/mL NT-Pro-B Natriuret Pep (0-450) pg/mL Total Protein (5.8-8.3) g/dL Albumin (3.0-4.8) g/dL Globulin gm/dL Albumin/Globulin Ratio (1.1-1.8) Procalcitonin (0.19-0.49) NG/ML Arterial Blood Potassium (3.6-5.2) mmol/L Urine Color (YELLOW) Urine Appearance (CLEAR) Urine pH (4.7-8.0) Ur Specific Warren (1.005-1.035) Urine Protein (<30 mg/dL) mg/dL Urine Glucose (UA) (NEGATIVE) mg/dL Urine Ketones (NEGATIVE) mg/dL Urine Blood (NEGATIVE) Urine Nitrate (NEGATIVE) Urine Bilirubin (NEGATIVE) Urine Urobilinogen (<1 E.U./dL) E.U./dL Ur Leukocyte Esterase (NEGATIVE) Aldair/uL Urine RBC (0-2) /hpf Urine WBC (0-6) /hpf Ur Epithelial Cells (0-5) /hpf Urine Bacteria (NONE) /hpf Urine Other /hpf Influenza Typ A,B (EIA) (NEGATIVE) Ur L.pneumophila Ag (NEGATIVE) Blood Type B POSITIVE Antibody Screen Negative Crossmatch See Detail BBK History Checked Patient has bt 04/12/18 04/12/18 04/12/18 Range/Units 06:15 06:15 05:00 WBC 7.8 D (4.5-11.0) 10^3/uL RBC 2.36 L (3.5-6.1) 10^6/uL Hgb 6.6 L* (12.0-16.0) g/dL Hct 22.7 L (36.0-48.0) % MCV 96.2 (80.0-105.0) fl MCH 28.0 (25.0-35.0) pg MCHC 29.1 L (31.0-37.0) g/dl RDW 21.1 H (11.5-14.5) % Plt Count 234 (120.0-450.0) 10^3/uL MPV 11.1 H (7.0-11.0) fl Gran % (50.0-68.0) % Lymph % (Auto) (22.0-35.0) % Dickson % (Auto) (1.0-6.0) % Eos % (Auto) (1.5-5.0) % Baso % (Auto) (0.0-3.0) % Gran # (1.4-6.5) Lymph # (Auto) (1.2-3.4) Dickson # (Auto) (0.1-0.6) Eos # (Auto) (0.0-0.7) Baso # (Auto) (0.0-2.0) K/mm3 Neutrophils % (Manual) (50.0-70.0) % Lymphocytes % (Manual) (22.0-35.0) % Monocytes % (Manual) (1.0-6.0) % Platelet Evaluation (NORMAL) Large Platelets Retic Count (0.5-1.5) % PT (9.4-12.5) SECONDS INR APTT (26.9-38.3) Seconds pCO2 45 (35-45) mm/Hg pO2 72.0 L (80-100) mm/Hg HCO3 36.7 H (21-28) mmol/L ABG pH 7.52 H (7.35-7.45) ABG Total CO2 38.1 H (22-28) mmol.L ABG O2 Saturation 98.8 H (95-98) % ABG O2 Content 8.9 L (15-23) ML/dl ABG Base Excess 12.7 H (-2.0-3.0) mmol/L ABG Hemoglobin 6.5 L (11.7-17.4) g/dL ABG Carboxyhemoglobin 2.0 H (0.5-1.5) % POC ABG HHb (Measured) 1.2 (0-5) % ABG Methemoglobin 1.1 (0.0-3.0) % ABG O2 Capacity 9.0 L (16-24) mL/dl ABG Potassium (3.6-5.2) mmol/L Hgb O2 Saturation 95.8 (95.0-98.0) % Glucose (65-105) mg/dl Lactate (0.7-2.1) mmol/L FiO2 40.0 % Crit Value Called To Crit Value Called By Blood Gas Notified Time Sodium 147 (132-148) mmol/L Potassium 4.0 (3.6-5.0) mmol/L Chloride 108 H (98-107) mmol/L Carbon Dioxide 35 H (21-33) mmol/L Anion Gap 8 L (10-20) BUN 106 H (7-21) mg/dL Creatinine 2.5 H (0.7-1.2) mg/dl Est GFR ( Amer) 24 Est GFR (Non-Af Amer) 20 POC Glucose (mg/dL) (65-110) mg/dL Random Glucose 156 H (70-110) mg/dL Calcium 8.9 (8.4-10.5) mg/dL Phosphorus (2.5-4.5) mg/dL Magnesium (1.7-2.2) mg/dL Total Bilirubin 0.6 (0.2-1.3) mg/dL AST 30 (14-36) U/L ALT 55 (7-56) U/L Alkaline Phosphatase 62 (38-126) U/L Total Creatine Kinase (35-230) U/L Troponin I ng/mL NT-Pro-B Natriuret Pep (0-450) pg/mL Total Protein 5.2 L (5.8-8.3) g/dL Albumin 3.0 (3.0-4.8) g/dL Globulin 2.2 gm/dL Albumin/Globulin Ratio 1.4 (1.1-1.8) Procalcitonin (0.19-0.49) NG/ML Arterial Blood Potassium (3.6-5.2) mmol/L Urine Color (YELLOW) Urine Appearance (CLEAR) Urine pH (4.7-8.0) Ur Specific Warren (1.005-1.035) Urine Protein (<30 mg/dL) mg/dL Urine Glucose (UA) (NEGATIVE) mg/dL Urine Ketones (NEGATIVE) mg/dL Urine Blood (NEGATIVE) Urine Nitrate (NEGATIVE) Urine Bilirubin (NEGATIVE) Urine Urobilinogen (<1 E.U./dL) E.U./dL Ur Leukocyte Esterase (NEGATIVE) Aldair/uL Urine RBC (0-2) /hpf Urine WBC (0-6) /hpf Ur Epithelial Cells (0-5) /hpf Urine Bacteria (NONE) /hpf Urine Other /hpf Influenza Typ A,B (EIA) (NEGATIVE) Ur L.pneumophila Ag (NEGATIVE) Blood Type Antibody Screen Crossmatch BBK History Checked 04/12/18 04/11/18 04/11/18 Range/Units 04:18 23:59 20:03 WBC (4.5-11.0) 10^3/uL RBC (3.5-6.1) 10^6/uL Hgb (12.0-16.0) g/dL Hct (36.0-48.0) % MCV (80.0-105.0) fl MCH (25.0-35.0) pg MCHC (31.0-37.0) g/dl RDW (11.5-14.5) % Plt Count (120.0-450.0) 10^3/uL MPV (7.0-11.0) fl Gran % (50.0-68.0) % Lymph % (Auto) (22.0-35.0) % Dickson % (Auto) (1.0-6.0) % Eos % (Auto) (1.5-5.0) % Baso % (Auto) (0.0-3.0) % Gran # (1.4-6.5) Lymph # (Auto) (1.2-3.4) Dickson # (Auto) (0.1-0.6) Eos # (Auto) (0.0-0.7) Baso # (Auto) (0.0-2.0) K/mm3 Neutrophils % (Manual) (50.0-70.0) % Lymphocytes % (Manual) (22.0-35.0) % Monocytes % (Manual) (1.0-6.0) % Platelet Evaluation (NORMAL) Large Platelets Retic Count (0.5-1.5) % PT (9.4-12.5) SECONDS INR APTT (26.9-38.3) Seconds pCO2 (35-45) mm/Hg pO2 (80-100) mm/Hg HCO3 (21-28) mmol/L ABG pH (7.35-7.45) ABG Total CO2 (22-28) mmol.L ABG O2 Saturation (95-98) % ABG O2 Content (15-23) ML/dl ABG Base Excess (-2.0-3.0) mmol/L ABG Hemoglobin (11.7-17.4) g/dL ABG Carboxyhemoglobin (0.5-1.5) % POC ABG HHb (Measured) (0-5) % ABG Methemoglobin (0.0-3.0) % ABG O2 Capacity (16-24) mL/dl ABG Potassium (3.6-5.2) mmol/L Hgb O2 Saturation (95.0-98.0) % Glucose (65-105) mg/dl Lactate (0.7-2.1) mmol/L FiO2 % Crit Value Called To Crit Value Called By Blood Gas Notified Time Sodium (132-148) mmol/L Potassium (3.6-5.0) mmol/L Chloride (98-107) mmol/L Carbon Dioxide (21-33) mmol/L Anion Gap (10-20) BUN (7-21) mg/dL Creatinine (0.7-1.2) mg/dl Est GFR ( Amer) Est GFR (Non-Af Amer) POC Glucose (mg/dL) 183 H 153 H 227 H (65-110) mg/dL Random Glucose (70-110) mg/dL Calcium (8.4-10.5) mg/dL Phosphorus (2.5-4.5) mg/dL Magnesium (1.7-2.2) mg/dL Total Bilirubin (0.2-1.3) mg/dL AST (14-36) U/L ALT (7-56) U/L Alkaline Phosphatase (38-126) U/L Total Creatine Kinase (35-230) U/L Troponin I ng/mL NT-Pro-B Natriuret Pep (0-450) pg/mL Total Protein (5.8-8.3) g/dL Albumin (3.0-4.8) g/dL Globulin gm/dL Albumin/Globulin Ratio (1.1-1.8) Procalcitonin (0.19-0.49) NG/ML Arterial Blood Potassium (3.6-5.2) mmol/L Urine Color (YELLOW) Urine Appearance (CLEAR) Urine pH (4.7-8.0) Ur Specific Warren (1.005-1.035) Urine Protein (<30 mg/dL) mg/dL Urine Glucose (UA) (NEGATIVE) mg/dL Urine Ketones (NEGATIVE) mg/dL Urine Blood (NEGATIVE) Urine Nitrate (NEGATIVE) Urine Bilirubin (NEGATIVE) Urine Urobilinogen (<1 E.U./dL) E.U./dL Ur Leukocyte Esterase (NEGATIVE) Aldair/uL Urine RBC (0-2) /hpf Urine WBC (0-6) /hpf Ur Epithelial Cells (0-5) /hpf Urine Bacteria (NONE) /hpf Urine Other /hpf Influenza Typ A,B (EIA) (NEGATIVE) Ur L.pneumophila Ag (NEGATIVE) Blood Type Antibody Screen Crossmatch BBK History Checked 04/11/18 04/11/18 04/11/18 Range/Units 15:56 15:15 15:00 WBC (4.5-11.0) 10^3/uL RBC (3.5-6.1) 10^6/uL Hgb (12.0-16.0) g/dL Hct (36.0-48.0) % MCV (80.0-105.0) fl MCH (25.0-35.0) pg MCHC (31.0-37.0) g/dl RDW (11.5-14.5) % Plt Count (120.0-450.0) 10^3/uL MPV (7.0-11.0) fl Gran % (50.0-68.0) % Lymph % (Auto) (22.0-35.0) % Dickson % (Auto) (1.0-6.0) % Eos % (Auto) (1.5-5.0) % Baso % (Auto) (0.0-3.0) % Gran # (1.4-6.5) Lymph # (Auto) (1.2-3.4) Dickson # (Auto) (0.1-0.6) Eos # (Auto) (0.0-0.7) Baso # (Auto) (0.0-2.0) K/mm3 Neutrophils % (Manual) (50.0-70.0) % Lymphocytes % (Manual) (22.0-35.0) % Monocytes % (Manual) (1.0-6.0) % Platelet Evaluation (NORMAL) Large Platelets Retic Count (0.5-1.5) % PT (9.4-12.5) SECONDS INR APTT (26.9-38.3) Seconds pCO2 (35-45) mm/Hg pO2 (80-100) mm/Hg HCO3 (21-28) mmol/L ABG pH (7.35-7.45) ABG Total CO2 (22-28) mmol.L ABG O2 Saturation (95-98) % ABG O2 Content (15-23) ML/dl ABG Base Excess (-2.0-3.0) mmol/L ABG Hemoglobin (11.7-17.4) g/dL ABG Carboxyhemoglobin (0.5-1.5) % POC ABG HHb (Measured) (0-5) % ABG Methemoglobin (0.0-3.0) % ABG O2 Capacity (16-24) mL/dl ABG Potassium (3.6-5.2) mmol/L Hgb O2 Saturation (95.0-98.0) % Glucose (65-105) mg/dl Lactate (0.7-2.1) mmol/L FiO2 % Crit Value Called To Crit Value Called By Blood Gas Notified Time Sodium (132-148) mmol/L Potassium (3.6-5.0) mmol/L Chloride (98-107) mmol/L Carbon Dioxide (21-33) mmol/L Anion Gap (10-20) BUN (7-21) mg/dL Creatinine (0.7-1.2) mg/dl Est GFR ( Amer) Est GFR (Non-Af Amer) POC Glucose (mg/dL) 384 H 402 H* (65-110) mg/dL Random Glucose (70-110) mg/dL Calcium (8.4-10.5) mg/dL Phosphorus (2.5-4.5) mg/dL Magnesium (1.7-2.2) mg/dL Total Bilirubin (0.2-1.3) mg/dL AST (14-36) U/L ALT (7-56) U/L Alkaline Phosphatase (38-126) U/L Total Creatine Kinase (35-230) U/L Troponin I ng/mL NT-Pro-B Natriuret Pep (0-450) pg/mL Total Protein (5.8-8.3) g/dL Albumin (3.0-4.8) g/dL Globulin gm/dL Albumin/Globulin Ratio (1.1-1.8) Procalcitonin (0.19-0.49) NG/ML Arterial Blood Potassium (3.6-5.2) mmol/L Urine Color (YELLOW) Urine Appearance (CLEAR) Urine pH (4.7-8.0) Ur Specific Warren (1.005-1.035) Urine Protein (<30 mg/dL) mg/dL Urine Glucose (UA) (NEGATIVE) mg/dL Urine Ketones (NEGATIVE) mg/dL Urine Blood (NEGATIVE) Urine Nitrate (NEGATIVE) Urine Bilirubin (NEGATIVE) Urine Urobilinogen (<1 E.U./dL) E.U./dL Ur Leukocyte Esterase (NEGATIVE) Aldair/uL Urine RBC (0-2) /hpf Urine WBC (0-6) /hpf Ur Epithelial Cells (0-5) /hpf Urine Bacteria (NONE) /hpf Urine Other /hpf Influenza Typ A,B (EIA) (NEGATIVE) Ur L.pneumophila Ag Negative (NEGATIVE) Blood Type Antibody Screen Crossmatch BBK History Checked 04/11/18 04/11/18 04/11/18 Range/Units 14:00 13:55 13:00 WBC (4.5-11.0) 10^3/uL RBC (3.5-6.1) 10^6/uL Hgb (12.0-16.0) g/dL Hct (36.0-48.0) % MCV (80.0-105.0) fl MCH (25.0-35.0) pg MCHC (31.0-37.0) g/dl RDW (11.5-14.5) % Plt Count (120.0-450.0) 10^3/uL MPV (7.0-11.0) fl Gran % (50.0-68.0) % Lymph % (Auto) (22.0-35.0) % Dickson % (Auto) (1.0-6.0) % Eos % (Auto) (1.5-5.0) % Baso % (Auto) (0.0-3.0) % Gran # (1.4-6.5) Lymph # (Auto) (1.2-3.4) Dickson # (Auto) (0.1-0.6) Eos # (Auto) (0.0-0.7) Baso # (Auto) (0.0-2.0) K/mm3 Neutrophils % (Manual) (50.0-70.0) % Lymphocytes % (Manual) (22.0-35.0) % Monocytes % (Manual) (1.0-6.0) % Platelet Evaluation (NORMAL) Large Platelets Retic Count 2.07 H (0.5-1.5) % PT (9.4-12.5) SECONDS INR APTT (26.9-38.3) Seconds pCO2 58 H (35-45) mm/Hg pO2 67.0 L (80-100) mm/Hg HCO3 38.5 H (21-28) mmol/L ABG pH 7.43 (7.35-7.45) ABG Total CO2 40.3 H (22-28) mmol.L ABG O2 Saturation 98.3 H (95-98) % ABG O2 Content 9.2 L (15-23) ML/dl ABG Base Excess 12.8 H (-2.0-3.0) mmol/L ABG Hemoglobin 7.2 L (11.7-17.4) g/dL ABG Carboxyhemoglobin 7.4 H (0.5-1.5) % POC ABG HHb (Measured) 1.6 (0-5) % ABG Methemoglobin 0.7 (0.0-3.0) % ABG O2 Capacity 9.4 L (16-24) mL/dl ABG Potassium (3.6-5.2) mmol/L Hgb O2 Saturation 90.3 L (95.0-98.0) % Glucose (65-105) mg/dl Lactate (0.7-2.1) mmol/L FiO2 40.0 % Crit Value Called To Crit Value Called By Blood Gas Notified Time Sodium (132-148) mmol/L Potassium (3.6-5.0) mmol/L Chloride (98-107) mmol/L Carbon Dioxide (21-33) mmol/L Anion Gap (10-20) BUN (7-21) mg/dL Creatinine (0.7-1.2) mg/dl Est GFR ( Amer) Est GFR (Non-Af Amer) POC Glucose (mg/dL) (65-110) mg/dL Random Glucose (70-110) mg/dL Calcium (8.4-10.5) mg/dL Phosphorus (2.5-4.5) mg/dL Magnesium (1.7-2.2) mg/dL Total Bilirubin (0.2-1.3) mg/dL AST (14-36) U/L ALT (7-56) U/L Alkaline Phosphatase (38-126) U/L Total Creatine Kinase (35-230) U/L Troponin I ng/mL NT-Pro-B Natriuret Pep (0-450) pg/mL Total Protein (5.8-8.3) g/dL Albumin (3.0-4.8) g/dL Globulin gm/dL Albumin/Globulin Ratio (1.1-1.8) Procalcitonin 0.55 H (0.19-0.49) NG/ML Arterial Blood Potassium (3.6-5.2) mmol/L Urine Color (YELLOW) Urine Appearance (CLEAR) Urine pH (4.7-8.0) Ur Specific Warren (1.005-1.035) Urine Protein (<30 mg/dL) mg/dL Urine Glucose (UA) (NEGATIVE) mg/dL Urine Ketones (NEGATIVE) mg/dL Urine Blood (NEGATIVE) Urine Nitrate (NEGATIVE) Urine Bilirubin (NEGATIVE) Urine Urobilinogen (<1 E.U./dL) E.U./dL Ur Leukocyte Esterase (NEGATIVE) Aldair/uL Urine RBC (0-2) /hpf Urine WBC (0-6) /hpf Ur Epithelial Cells (0-5) /hpf Urine Bacteria (NONE) /hpf Urine Other /hpf Influenza Typ A,B (EIA) (NEGATIVE) Ur L.pneumophila Ag (NEGATIVE) Blood Type Antibody Screen Crossmatch BBK History Checked 04/11/18 04/11/18 04/11/18 Range/Units 12:45 12:45 12:30 WBC (4.5-11.0) 10^3/uL RBC (3.5-6.1) 10^6/uL Hgb (12.0-16.0) g/dL Hct (36.0-48.0) % MCV (80.0-105.0) fl MCH (25.0-35.0) pg MCHC (31.0-37.0) g/dl RDW (11.5-14.5) % Plt Count (120.0-450.0) 10^3/uL MPV (7.0-11.0) fl Gran % (50.0-68.0) % Lymph % (Auto) (22.0-35.0) % Dickson % (Auto) (1.0-6.0) % Eos % (Auto) (1.5-5.0) % Baso % (Auto) (0.0-3.0) % Gran # (1.4-6.5) Lymph # (Auto) (1.2-3.4) Dickson # (Auto) (0.1-0.6) Eos # (Auto) (0.0-0.7) Baso # (Auto) (0.0-2.0) K/mm3 Neutrophils % (Manual) (50.0-70.0) % Lymphocytes % (Manual) (22.0-35.0) % Monocytes % (Manual) (1.0-6.0) % Platelet Evaluation (NORMAL) Large Platelets Retic Count (0.5-1.5) % PT (9.4-12.5) SECONDS INR APTT (26.9-38.3) Seconds pCO2 100 H* (35-45) mm/Hg pO2 385.0 H (80-100) mm/Hg HCO3 40.9 H* (21-28) mmol/L ABG pH 7.22 L (7.35-7.45) ABG Total CO2 44.0 H (22-28) mmol.L ABG O2 Saturation 100.6 H (95-98) % ABG O2 Content (15-23) ML/dl ABG Base Excess 9.1 H (-2.0-3.0) mmol/L ABG Hemoglobin (11.7-17.4) g/dL ABG Carboxyhemoglobin (0.5-1.5) % POC ABG HHb (Measured) (0-5) % ABG Methemoglobin (0.0-3.0) % ABG O2 Capacity (16-24) mL/dl ABG Potassium 3.8 (3.6-5.2) mmol/L Hgb O2 Saturation (95.0-98.0) % Glucose 372 H (65-105) mg/dl Lactate 0.5 L (0.7-2.1) mmol/L FiO2 100.0 % Crit Value Called To reggie Shirley Crit Value Called By Lauren Blood Gas Notified Time 1242 Sodium 147.0 (132-148) mmol/L Potassium (3.6-5.0) mmol/L Chloride 110.0 H (98-107) mmol/L Carbon Dioxide (21-33) mmol/L Anion Gap (10-20) BUN (7-21) mg/dL Creatinine (0.7-1.2) mg/dl Est GFR ( Amer) Est GFR (Non-Af Amer) POC Glucose (mg/dL) (65-110) mg/dL Random Glucose (70-110) mg/dL Calcium (8.4-10.5) mg/dL Phosphorus (2.5-4.5) mg/dL Magnesium (1.7-2.2) mg/dL Total Bilirubin (0.2-1.3) mg/dL AST (14-36) U/L ALT (7-56) U/L Alkaline Phosphatase (38-126) U/L Total Creatine Kinase (35-230) U/L Troponin I ng/mL NT-Pro-B Natriuret Pep (0-450) pg/mL Total Protein (5.8-8.3) g/dL Albumin (3.0-4.8) g/dL Globulin gm/dL Albumin/Globulin Ratio (1.1-1.8) Procalcitonin (0.19-0.49) NG/ML Arterial Blood Potassium 3.8 (3.6-5.2) mmol/L Urine Color Light yellow (YELLOW) Urine Appearance Sl cloudy (CLEAR) Urine pH 6.0 (4.7-8.0) Ur Specific Warren 1.020 (1.005-1.035) Urine Protein 30 H (<30 mg/dL) mg/dL Urine Glucose (UA) 100 H (NEGATIVE) mg/dL Urine Ketones Negative (NEGATIVE) mg/dL Urine Blood Trace-intact H (NEGATIVE) Urine Nitrate Negative (NEGATIVE) Urine Bilirubin Negative (NEGATIVE) Urine Urobilinogen 0.2 (<1 E.U./dL) E.U./dL Ur Leukocyte Esterase Small H (NEGATIVE) Aldair/uL Urine RBC 0 - 2 (0-2) /hpf Urine WBC 5 - 10 H (0-6) /hpf Ur Epithelial Cells 0 - 2 (0-5) /hpf Urine Bacteria Few (NONE) /hpf Urine Other Uyeast /hpf Influenza Typ A,B (EIA) Negative for flu a/b (NEGATIVE) Ur L.pneumophila Ag (NEGATIVE) Blood Type Antibody Screen Crossmatch BBK History Checked 04/11/18 04/11/18 04/11/18 Range/Units 12:25 12:25 12:25 WBC 10.7 D (4.5-11.0) 10^3/uL RBC 2.59 L (3.5-6.1) 10^6/uL Hgb 7.3 L (12.0-16.0) g/dL Hct 25.5 L (36.0-48.0) % MCV 98.5 (80.0-105.0) fl MCH 28.2 (25.0-35.0) pg MCHC 28.6 L (31.0-37.0) g/dl RDW 20.4 H (11.5-14.5) % Plt Count 234 (120.0-450.0) 10^3/uL MPV 11.3 H (7.0-11.0) fl Gran % 86.3 H (50.0-68.0) % Lymph % (Auto) 7.6 L (22.0-35.0) % Dickson % (Auto) 5.9 (1.0-6.0) % Eos % (Auto) 0.1 L (1.5-5.0) % Baso % (Auto) 0.1 (0.0-3.0) % Gran # 9.26 H (1.4-6.5) Lymph # (Auto) 0.8 L (1.2-3.4) Dickson # (Auto) 0.6 (0.1-0.6) Eos # (Auto) 0.0 (0.0-0.7) Baso # (Auto) 0.01 (0.0-2.0) K/mm3 Neutrophils % (Manual) (50.0-70.0) % Lymphocytes % (Manual) (22.0-35.0) % Monocytes % (Manual) (1.0-6.0) % Platelet Evaluation (NORMAL) Large Platelets Retic Count (0.5-1.5) % PT 11.9 (9.4-12.5) SECONDS INR 1.05 APTT 25.3 L (26.9-38.3) Seconds pCO2 (35-45) mm/Hg pO2 (80-100) mm/Hg HCO3 (21-28) mmol/L ABG pH (7.35-7.45) ABG Total CO2 (22-28) mmol.L ABG O2 Saturation (95-98) % ABG O2 Content (15-23) ML/dl ABG Base Excess (-2.0-3.0) mmol/L ABG Hemoglobin (11.7-17.4) g/dL ABG Carboxyhemoglobin (0.5-1.5) % POC ABG HHb (Measured) (0-5) % ABG Methemoglobin (0.0-3.0) % ABG O2 Capacity (16-24) mL/dl ABG Potassium (3.6-5.2) mmol/L Hgb O2 Saturation (95.0-98.0) % Glucose (65-105) mg/dl Lactate (0.7-2.1) mmol/L FiO2 % Crit Value Called To Crit Value Called By Blood Gas Notified Time Sodium 145 (132-148) mmol/L Potassium 4.0 (3.6-5.0) mmol/L Chloride 103 (98-107) mmol/L Carbon Dioxide 39 H (21-33) mmol/L Anion Gap 7 L (10-20) BUN 110 H (7-21) mg/dL Creatinine 2.5 H (0.7-1.2) mg/dl Est GFR ( Amer) 24 Est GFR (Non-Af Amer) 20 POC Glucose (mg/dL) (65-110) mg/dL Random Glucose 375 H* D (70-110) mg/dL Calcium 9.1 (8.4-10.5) mg/dL Phosphorus 3.9 (2.5-4.5) mg/dL Magnesium 2.5 H (1.7-2.2) mg/dL Total Bilirubin 0.4 (0.2-1.3) mg/dL AST 30 (14-36) U/L ALT 68 H (7-56) U/L Alkaline Phosphatase 74 (38-126) U/L Total Creatine Kinase 53 (35-230) U/L Troponin I 0.08 D ng/mL NT-Pro-B Natriuret Pep 7140 H (0-450) pg/mL Total Protein 5.8 (5.8-8.3) g/dL Albumin 3.4 (3.0-4.8) g/dL Globulin 2.4 gm/dL Albumin/Globulin Ratio 1.4 (1.1-1.8) Procalcitonin (0.19-0.49) NG/ML Arterial Blood Potassium (3.6-5.2) mmol/L Urine Color (YELLOW) Urine Appearance (CLEAR) Urine pH (4.7-8.0) Ur Specific Warren (1.005-1.035) Urine Protein (<30 mg/dL) mg/dL Urine Glucose (UA) (NEGATIVE) mg/dL Urine Ketones (NEGATIVE) mg/dL Urine Blood (NEGATIVE) Urine Nitrate (NEGATIVE) Urine Bilirubin (NEGATIVE) Urine Urobilinogen (<1 E.U./dL) E.U./dL Ur Leukocyte Esterase (NEGATIVE) Aldair/uL Urine RBC (0-2) /hpf Urine WBC (0-6) /hpf Ur Epithelial Cells (0-5) /hpf Urine Bacteria (NONE) /hpf Urine Other /hpf Influenza Typ A,B (EIA) (NEGATIVE) Ur L.pneumophila Ag (NEGATIVE) Blood Type Antibody Screen Crossmatch BBK History Checked Laboratory Results - last 24 hr 04/11/18 04/11/18 04/11/18 12:25 12:25 12:25 WBC 10.7 D RBC 2.59 L Hgb 7.3 L Hct 25.5 L MCV 98.5 MCH 28.2 MCHC 28.6 L RDW 20.4 H Plt Count 234 MPV 11.3 H Gran % 86.3 H Lymph % (Auto) 7.6 L Dickson % (Auto) 5.9 Eos % (Auto) 0.1 L Baso % (Auto) 0.1 Gran # 9.26 H Lymph # (Auto) 0.8 L Dickson # (Auto) 0.6 Eos # (Auto) 0.0 Baso # (Auto) 0.01 Neutrophils % (Manual) Lymphocytes % (Manual) Monocytes % (Manual) Platelet Evaluation Large Platelets Retic Count PT 11.9 INR 1.05 APTT 25.3 L pCO2 pO2 HCO3 ABG pH ABG Total CO2 ABG O2 Saturation ABG O2 Content ABG Base Excess ABG Hemoglobin ABG Carboxyhemoglobin POC ABG HHb (Measured) ABG Methemoglobin ABG O2 Capacity ABG Potassium Hgb O2 Saturation Glucose Lactate FiO2 Crit Value Called To Crit Value Called By Blood Gas Notified Time Sodium 145 Potassium 4.0 Chloride 103 Carbon Dioxide 39 H Anion Gap 7 L BUN 110 H Creatinine 2.5 H Est GFR ( Amer) 24 Est GFR (Non-Af Amer) 20 POC Glucose (mg/dL) Random Glucose 375 H* D Calcium 9.1 Phosphorus 3.9 Magnesium 2.5 H Total Bilirubin 0.4 AST 30 ALT 68 H Alkaline Phosphatase 74 Total Creatine Kinase 53 Troponin I 0.08 D NT-Pro-B Natriuret Pep 7140 H Total Protein 5.8 Albumin 3.4 Globulin 2.4 Albumin/Globulin Ratio 1.4 Procalcitonin Arterial Blood Potassium Urine Color Urine Appearance Urine pH Ur Specific Warren Urine Protein Urine Glucose (UA) Urine Ketones Urine Blood Urine Nitrate Urine Bilirubin Urine Urobilinogen Ur Leukocyte Esterase Urine RBC Urine WBC Ur Epithelial Cells Urine Bacteria Urine Other Influenza Typ A,B (EIA) Ur L.pneumophila Ag Blood Type Antibody Screen Crossmatch BBK History Checked 04/11/18 04/11/18 04/11/18 12:30 12:45 12:45 WBC RBC Hgb Hct MCV MCH MCHC RDW Plt Count MPV Gran % Lymph % (Auto) Dickson % (Auto) Eos % (Auto) Baso % (Auto) Gran # Lymph # (Auto) Dickson # (Auto) Eos # (Auto) Baso # (Auto) Neutrophils % (Manual) Lymphocytes % (Manual) Monocytes % (Manual) Platelet Evaluation Large Platelets Retic Count PT INR APTT pCO2 100 H* pO2 385.0 H HCO3 40.9 H* ABG pH 7.22 L ABG Total CO2 44.0 H ABG O2 Saturation 100.6 H ABG O2 Content ABG Base Excess 9.1 H ABG Hemoglobin ABG Carboxyhemoglobin POC ABG HHb (Measured) ABG Methemoglobin ABG O2 Capacity ABG Potassium 3.8 Hgb O2 Saturation Glucose 372 H Lactate 0.5 L FiO2 100.0 Crit Value Called To reggie Shirley Crit Value Called By Lauren Blood Gas Notified Time 1242 Sodium 147.0 Potassium Chloride 110.0 H Carbon Dioxide Anion Gap BUN Creatinine Est GFR ( Amer) Est GFR (Non-Af Amer) POC Glucose (mg/dL) Random Glucose Calcium Phosphorus Magnesium Total Bilirubin AST ALT Alkaline Phosphatase Total Creatine Kinase Troponin I NT-Pro-B Natriuret Pep Total Protein Albumin Globulin Albumin/Globulin Ratio Procalcitonin Arterial Blood Potassium 3.8 Urine Color Light yellow Urine Appearance Sl cloudy Urine pH 6.0 Ur Specific Warren 1.020 Urine Protein 30 H Urine Glucose (UA) 100 H Urine Ketones Negative Urine Blood Trace-intact H Urine Nitrate Negative Urine Bilirubin Negative Urine Urobilinogen 0.2 Ur Leukocyte Esterase Small H Urine RBC 0 - 2 Urine WBC 5 - 10 H Ur Epithelial Cells 0 - 2 Urine Bacteria Few Urine Other Uyeast Influenza Typ A,B (EIA) Negative for flu a/b Ur L.pneumophila Ag Blood Type Antibody Screen Crossmatch BBK History Checked 04/11/18 04/11/18 04/11/18 13:00 13:55 14:00 WBC RBC Hgb Hct MCV MCH MCHC RDW Plt Count MPV Gran % Lymph % (Auto) Dickson % (Auto) Eos % (Auto) Baso % (Auto) Gran # Lymph # (Auto) Dickson # (Auto) Eos # (Auto) Baso # (Auto) Neutrophils % (Manual) Lymphocytes % (Manual) Monocytes % (Manual) Platelet Evaluation Large Platelets Retic Count 2.07 H PT INR APTT pCO2 58 H pO2 67.0 L HCO3 38.5 H ABG pH 7.43 ABG Total CO2 40.3 H ABG O2 Saturation 98.3 H ABG O2 Content 9.2 L ABG Base Excess 12.8 H ABG Hemoglobin 7.2 L ABG Carboxyhemoglobin 7.4 H POC ABG HHb (Measured) 1.6 ABG Methemoglobin 0.7 ABG O2 Capacity 9.4 L ABG Potassium Hgb O2 Saturation 90.3 L Glucose Lactate FiO2 40.0 Crit Value Called To Crit Value Called By Blood Gas Notified Time Sodium Potassium Chloride Carbon Dioxide Anion Gap BUN Creatinine Est GFR ( Amer) Est GFR (Non-Af Amer) POC Glucose (mg/dL) Random Glucose Calcium Phosphorus Magnesium Total Bilirubin AST ALT Alkaline Phosphatase Total Creatine Kinase Troponin I NT-Pro-B Natriuret Pep Total Protein Albumin Globulin Albumin/Globulin Ratio Procalcitonin 0.55 H Arterial Blood Potassium Urine Color Urine Appearance Urine pH Ur Specific Warren Urine Protein Urine Glucose (UA) Urine Ketones Urine Blood Urine Nitrate Urine Bilirubin Urine Urobilinogen Ur Leukocyte Esterase Urine RBC Urine WBC Ur Epithelial Cells Urine Bacteria Urine Other Influenza Typ A,B (EIA) Ur L.pneumophila Ag Blood Type Antibody Screen Crossmatch BBK History Checked 04/11/18 04/11/18 04/11/18 15:00 15:15 15:56 WBC RBC Hgb Hct MCV MCH MCHC RDW Plt Count MPV Gran % Lymph % (Auto) Dickson % (Auto) Eos % (Auto) Baso % (Auto) Gran # Lymph # (Auto) Dickson # (Auto) Eos # (Auto) Baso # (Auto) Neutrophils % (Manual) Lymphocytes % (Manual) Monocytes % (Manual) Platelet Evaluation Large Platelets Retic Count PT INR APTT pCO2 pO2 HCO3 ABG pH ABG Total CO2 ABG O2 Saturation ABG O2 Content ABG Base Excess ABG Hemoglobin ABG Carboxyhemoglobin POC ABG HHb (Measured) ABG Methemoglobin ABG O2 Capacity ABG Potassium Hgb O2 Saturation Glucose Lactate FiO2 Crit Value Called To Crit Value Called By Blood Gas Notified Time Sodium Potassium Chloride Carbon Dioxide Anion Gap BUN Creatinine Est GFR ( Amer) Est GFR (Non-Af Amer) POC Glucose (mg/dL) 402 H* 384 H Random Glucose Calcium Phosphorus Magnesium Total Bilirubin AST ALT Alkaline Phosphatase Total Creatine Kinase Troponin I NT-Pro-B Natriuret Pep Total Protein Albumin Globulin Albumin/Globulin Ratio Procalcitonin Arterial Blood Potassium Urine Color Urine Appearance Urine pH Ur Specific Warren Urine Protein Urine Glucose (UA) Urine Ketones Urine Blood Urine Nitrate Urine Bilirubin Urine Urobilinogen Ur Leukocyte Esterase Urine RBC Urine WBC Ur Epithelial Cells Urine Bacteria Urine Other Influenza Typ A,B (EIA) Ur L.pneumophila Ag Negative Blood Type Antibody Screen Crossmatch BBK History Checked 04/11/18 04/11/18 04/12/18 20:03 23:59 04:18 WBC RBC Hgb Hct MCV MCH MCHC RDW Plt Count MPV Gran % Lymph % (Auto) Dickson % (Auto) Eos % (Auto) Baso % (Auto) Gran # Lymph # (Auto) Dickson # (Auto) Eos # (Auto) Baso # (Auto) Neutrophils % (Manual) Lymphocytes % (Manual) Monocytes % (Manual) Platelet Evaluation Large Platelets Retic Count PT INR APTT pCO2 pO2 HCO3 ABG pH ABG Total CO2 ABG O2 Saturation ABG O2 Content ABG Base Excess ABG Hemoglobin ABG Carboxyhemoglobin POC ABG HHb (Measured) ABG Methemoglobin ABG O2 Capacity ABG Potassium Hgb O2 Saturation Glucose Lactate FiO2 Crit Value Called To Crit Value Called By Blood Gas Notified Time Sodium Potassium Chloride Carbon Dioxide Anion Gap BUN Creatinine Est GFR ( Amer) Est GFR (Non-Af Amer) POC Glucose (mg/dL) 227 H 153 H 183 H Random Glucose Calcium Phosphorus Magnesium Total Bilirubin AST ALT Alkaline Phosphatase Total Creatine Kinase Troponin I NT-Pro-B Natriuret Pep Total Protein Albumin Globulin Albumin/Globulin Ratio Procalcitonin Arterial Blood Potassium Urine Color Urine Appearance Urine pH Ur Specific Warren Urine Protein Urine Glucose (UA) Urine Ketones Urine Blood Urine Nitrate Urine Bilirubin Urine Urobilinogen Ur Leukocyte Esterase Urine RBC Urine WBC Ur Epithelial Cells Urine Bacteria Urine Other Influenza Typ A,B (EIA) Ur L.pneumophila Ag Blood Type Antibody Screen Crossmatch BBK History Checked 04/12/18 04/12/18 04/12/18 05:00 06:15 06:15 WBC 7.8 D RBC 2.36 L Hgb 6.6 L* Hct 22.7 L MCV 96.2 MCH 28.0 MCHC 29.1 L RDW 21.1 H Plt Count 234 MPV 11.1 H Gran % Lymph % (Auto) Dickson % (Auto) Eos % (Auto) Baso % (Auto) Gran # Lymph # (Auto) Dickson # (Auto) Eos # (Auto) Baso # (Auto) Neutrophils % (Manual) Lymphocytes % (Manual) Monocytes % (Manual) Platelet Evaluation Large Platelets Retic Count PT INR APTT pCO2 45 pO2 72.0 L HCO3 36.7 H ABG pH 7.52 H ABG Total CO2 38.1 H ABG O2 Saturation 98.8 H ABG O2 Content 8.9 L ABG Base Excess 12.7 H ABG Hemoglobin 6.5 L ABG Carboxyhemoglobin 2.0 H POC ABG HHb (Measured) 1.2 ABG Methemoglobin 1.1 ABG O2 Capacity 9.0 L ABG Potassium Hgb O2 Saturation 95.8 Glucose Lactate FiO2 40.0 Crit Value Called To Crit Value Called By Blood Gas Notified Time Sodium 147 Potassium 4.0 Chloride 108 H Carbon Dioxide 35 H Anion Gap 8 L BUN 106 H Creatinine 2.5 H Est GFR ( Amer) 24 Est GFR (Non-Af Amer) 20 POC Glucose (mg/dL) Random Glucose 156 H Calcium 8.9 Phosphorus Magnesium Total Bilirubin 0.6 AST 30 ALT 55 Alkaline Phosphatase 62 Total Creatine Kinase Troponin I NT-Pro-B Natriuret Pep Total Protein 5.2 L Albumin 3.0 Globulin 2.2 Albumin/Globulin Ratio 1.4 Procalcitonin Arterial Blood Potassium Urine Color Urine Appearance Urine pH Ur Specific Warren Urine Protein Urine Glucose (UA) Urine Ketones Urine Blood Urine Nitrate Urine Bilirubin Urine Urobilinogen Ur Leukocyte Esterase Urine RBC Urine WBC Ur Epithelial Cells Urine Bacteria Urine Other Influenza Typ A,B (EIA) Ur L.pneumophila Ag Blood Type Antibody Screen Crossmatch BBK History Checked 04/12/18 04/12/18 04/12/18 08:00 08:00 08:21 WBC 10.3 D RBC 2.57 L Hgb 7.2 L Hct 24.5 L MCV 95.3 MCH 28.0 MCHC 29.4 L RDW 21.1 H Plt Count 222 MPV 10.5 Gran % 93.8 H Lymph % (Auto) 3.8 L Dickson % (Auto) 2.4 Eos % (Auto) 0.0 L Baso % (Auto) 0.0 Gran # 9.68 H Lymph # (Auto) 0.4 L Dickson # (Auto) 0.3 Eos # (Auto) 0.0 Baso # (Auto) 0.00 Neutrophils % (Manual) 91 H Lymphocytes % (Manual) 8 L Monocytes % (Manual) 1 Platelet Evaluation Normal Large Platelets Present Retic Count PT INR APTT pCO2 55 H pO2 69.0 L HCO3 36.5 H ABG pH 7.43 ABG Total CO2 38.2 H ABG O2 Saturation 97.7 ABG O2 Content 9.3 L ABG Base Excess 11.0 H ABG Hemoglobin 6.9 L ABG Carboxyhemoglobin 2.1 H POC ABG HHb (Measured) 2.2 ABG Methemoglobin 1.2 ABG O2 Capacity 9.5 L ABG Potassium Hgb O2 Saturation 94.5 L Glucose Lactate FiO2 40.0 Crit Value Called To Crit Value Called By Blood Gas Notified Time Sodium Potassium Chloride Carbon Dioxide Anion Gap BUN Creatinine Est GFR ( Amer) Est GFR (Non-Af Amer) POC Glucose (mg/dL) Random Glucose Calcium Phosphorus Magnesium Total Bilirubin AST ALT Alkaline Phosphatase Total Creatine Kinase Troponin I NT-Pro-B Natriuret Pep Total Protein Albumin Globulin Albumin/Globulin Ratio Procalcitonin Arterial Blood Potassium Urine Color Urine Appearance Urine pH Ur Specific Warren Urine Protein Urine Glucose (UA) Urine Ketones Urine Blood Urine Nitrate Urine Bilirubin Urine Urobilinogen Ur Leukocyte Esterase Urine RBC Urine WBC Ur Epithelial Cells Urine Bacteria Urine Other Influenza Typ A,B (EIA) Ur L.pneumophila Ag Blood Type B POSITIVE Antibody Screen Negative Crossmatch See Detail BBK History Checked Patient has bt Radiology Impressions: Radiology Impressions Chest X-Ray 04/11/18 12:04 IMPRESSION: Increasing right lower lobe infiltrate and effusion Chest X-Ray 04/11/18 13:10 IMPRESSION: Endotracheal tube in satisfactory position Chest CT 04/11/18 15:37 IMPRESSION: There is a decrease in the right lower lobe consolidation and adjacent pleural effusion. There is some residual consolidation at the right lung base posteriorly. There is only a minimal effusion on the current exam. There is a chronic area of scarring or consolidation in the posterior aspect of the right lung apex. Calcifications are seen in the left upper quadrant of the left breast. Mammographic correlation is suggested to rule out a breast malignancy Chest X-Ray 04/11/18 16:24 IMPRESSION: Endotracheal tube tip in the right mainstem bronchus. 1-2 cm retraction is recommended. Enteric tube in satisfactory position. Stable pulmonary vascular congestion and moderate right pleural effusion. Chest X-Ray 04/12/18 07:00 IMPRESSION: Slight improvement in right lower lobe infiltrate and effusion. Endotracheal and nasogastric tubes unchanged. EKG/Cardiology Studies: Cardiology / EKG Studies 04/11/18 12:06 EKG [ELECTROCARDIOGRAM] Stat Comment: Reason For Exam: SOB Fingerstick Blood Sugar Results: 180 Review of Systems - Review of Systems Systems not reviewed;Unavailable: Other (recent extubation) Critical Care Progress Note - Ventilator Checklist Head of Bed 30 Degrees: Yes PUD Prophalyxis: Yes DVT Prophylaxis: Yes Assessment/Plan - Assessment and Plan (Free Text) Assessment: 57 year old female with past medical history of invasive ductal carcinoma of left breast, COPD, anxiety, pneumonia, pleural effusion, CKD stage III, asthma, chronic pain, diabetes mellitus type II, arthritis, xanax abuse, recurrent UTIs, history of CHF with last EF: 65% presented status post intubation to the ED after hypercarbic respiratory failure. Plan: Neuro: -Extubated and started on High Flow oxygen with settings of 50L and 45% FiO2 -Patient has been weaned off of sedation and will reevaluate mental status after sedation fully wears off. Cardio: -RRR, normotensive, no signs of HD compromise -EKG 04/11: sinus rhythm with PACs with HR: 100 -Maintain MAP>65. -Monitor for S/S, HD compromise. Pulm: Hypercarbic respiratory failure -Extubated and placed on High Flow oxygen with settings of 50L and 45% FiO2 -Patient is stating well on high flow oxygen -Maintain O2 saturation>90%. -Follow up repeat CXR status post extubation -Elevate bed to 30 degrees COPD -Continue with solumedrol 40 mg Q8, and duonebs 3 mL Q2 HCAP -Chest CT: showed air bronchograms on the right side and emphysematous changes -CXR 04/12: right lower lobe infiltrate -Continue treatment with vancomycin and cefepime day 2. GI: Diet -Clear liquid diet. Advance diet as tolerated GI prophylaxis -Protonix 40 mg daily /Nephro: -BUN/Cr stable at 106/2.5. Patient is at baseline creatinine. -UA: 30 protein, 100 glucose, trace blood, small LE, 0-2 WBC, 5-10 RBC, few bacteria -Ray intact -Continue monitoring. -Replete electrolytes as needed. -Maintain euvolemia. Endocrinology: Diabetes mellitus type II -Random glucose: 156 -Medium SSI -Maintain euglycemia. Heme/Onc: Anemia -H/H stable at 7.2/22.7 -Consider transfusion is patient's Hgb<7 -No signs of HD compromise. -Continue monitoring H/H History of invasive ductal carcinoma of left breast -HER2+, ER+ -Patient was on chemotherapy but has continued to deny chemotherapy due to side effects since last year -CT Chest shows lymphadenopathy, possibly site of metastasis DVT prophylaxis -Continue with heparin 5000 U Q8 ID: HCAP -Afebrile, no leukocytosis -Follow up BCx, UCx, MRSA, S. Pneumonia urine antigen. Negative legionella urine antigen, influenza screen -Procalcitonin: 0.55 -Lactate: 0.5 -Continue with vancomycin and cefepime day 2 for possible HCAP -Monitor for signs and symptoms of infection. Patient seen and examined with Dr. Santiago - Date & Time Date: 04/12/18 Time: 09:10
--- NOTE | 2018-04-12 10:06 | RAD ---
Date of service: 04/12/2018 HISTORY: Post extubation COMPARISON: Comparison made with prior chest radiograph. FINDINGS: Interval removal ETT and NGT. No change right IJ MediPort with tip in the SVC Note that both lung apices are partially obscured by overlying facial soft tissue and mandible artifact right greater than left.. LUNGS: Redemonstrated is patchy opacity right mid to lower lung field consistent right-sided effusion and some combination of atelectasis and or infiltrate. Minimal left basilar atelectasis.. Central pulmonary vasculature remains slightly congested appearance. PLEURA: As above no evidence of pneumothorax apparent. CARDIOVASCULAR: Heart size unchanged. Mild aortic atherosclerotic calcification. Note that both. OSSEOUS STRUCTURES: No significant abnormalities. VISUALIZED UPPER ABDOMEN: Normal. OTHER FINDINGS: None. IMPRESSION: The slightly limited study. Interval removal ETT and NGT. Right-sided effusion with right lower lobe atelectasis and or infiltrate. Minor left basilar atelectasis. Central pulmonary vasculature remains slightly congested in appearance
--- NOTE | 2018-04-12 10:20 | CP.PCM.PN ---
<Aj Mays - Last Filed: 04/12/18 17:31> Subjective - Date & Time of Evaluation Date of Evaluation: 04/12/18 Time of Evaluation: 06:15 - Subjective Subjective: Pt seen and examined this morning in ICU. Sedation off, pt becoming more alert. Objective - Vital Signs/Intake and Output Vital Signs (last 24 hours): Temp Pulse Resp BP Pulse Ox 98.4 F 107 H 20 132/46 L 98 04/12/18 07:24 04/12/18 08:10 04/12/18 08:42 04/12/18 08:00 04/12/18 08:10 Intake and Output: 04/12/18 04/12/18 06:59 18:59 Intake Total 702.5 66.5 Output Total 700 Balance 2.5 66.5 - Medications Medications: Current Medications Albuterol/Ipratropium (Duoneb 3 Mg/0.5 Mg (3 Ml) Ud) 3 ml IH Q2H PRN PRN Reason: Shortness of Breath Last Admin: 04/12/18 07:21 Dose: 3 ml Aspirin (Aspirin Chewable) 81 mg PO DAILY [facility] Last Admin: 04/12/18 09:58 Dose: 81 mg Atorvastatin Calcium (Lipitor) 40 mg PO DAILY [facility] Last Admin: 04/12/18 09:58 Dose: 40 mg Ergocalciferol (Drisdol 50,000 Intl Units Cap) 1 cap PO Q7D [facility] Last Admin: 04/11/18 16:07 Dose: Not Given Heparin Sodium (Porcine) (Heparin) 5,000 units SC Q8H [facility]; Protocol Last Admin: 04/12/18 05:55 Dose: 5,000 units Fentanyl Citrate (Fentanyl Citrate/Sodium Chloride 1 Mg/100 Ml) 1,000 mcg in 100 mls @ 2 mls/hr IV .Q24H PRN; Protocol PRN Reason: TITRATE PER MD ORDER Last Titration: 04/12/18 07:00 Dose: 0 mcg/hr, 0 mls/hr Midazolam 100 mg/100ml in NS (Midazolam 100 Mg/100ml In Ns) 100 mg in 100 mls @ 1 mls/hr IV .Q24H PRN; Protocol PRN Reason: Sedation Last Titration: 04/12/18 09:09 Dose: 0 mg/hr, 0 mls/hr Cefepime HCl (Maxipime 1gm) 1 gm in 100 mls @ 100 mls/hr IVPB Q8 [facility]; Protocol Last Admin: 04/12/18 05:56 Dose: 100 mls/hr Insulin Human Regular (Humulin R Med) 0 units SC Q4 [facility]; Protocol Last Admin: 04/12/18 08:07 Dose: 1 unit Methylprednisolone (Solu-Medrol) 20 mg IVP Q8H [facility] Last Admin: 04/12/18 09:04 Dose: 20 mg Nicotine (Nicoderm Cq) 1 patch TD DAILY [facility] Last Admin: 04/12/18 09:01 Dose: 1 patch Pantoprazole Sodium (Protonix Inj) 40 mg IVP DAILY [facility] Last Admin: 04/12/18 09:01 Dose: 40 mg - Labs Labs: 04/12/18 08:00 04/12/18 06:15 PT 11.9 SECONDS (9.4-12.5) 04/11/18 12:25 INR 1.05 04/11/18 12:25 APTT 25.3 Seconds (26.9-38.3) L 04/11/18 12:25 - Constitutional Appears: No Acute Distress - Head Exam Head Exam: ATRAUMATIC, NORMOCEPHALIC Additional comments: intubated - Eye Exam Eye Exam: EOMI - ENT Exam ENT Exam: Mucous Membranes Moist - Neck Exam Neck Exam: Full ROM - Respiratory Exam Respiratory Exam: Clear to Ausculation Bilateral, Rhonchi, Wheezes, NORMAL BR EATHING PATTERN. absent: Accessory Muscle Use, Respiratory Distress - Cardiovascular Exam Cardiovascular Exam: RRR, +S1, +S2. absent: Diastolic murmur, Murmur - GI/Abdominal Exam GI & Abdominal Exam: Soft, Normal Bowel Sounds - Extremities Exam Extremities Exam: absent: Pedal Edema - Neurological Exam Neurological Exam: Awake - Psychiatric Exam Psychiatric exam: Normal Affect, Normal Mood - Skin Skin Exam: Dry, Normal Color, Warm Assessment and Plan - Assessment and Plan (Free Text) Assessment: Pt is a 57yo female with a PMH of COPD, asthma, breast Ca, anxiety, DM, recurrent UTIs who left [facility] yesterday AMA to smoke a cigarette. Pt was brought in my medics to the ED. Pt was then placed on CPAP and she was given duonebs. Plan: Acute Hypercapnic Respiratory Failure - pt admitted to the ICU, pt extubated today - PCO2 55, PO2 69, HCO3 36.5, pH 7.43 - Pulm consulted, Dr Rucker PNA - strep pneumo antigen, legionella follow up - procal 0.55 - continue cefepime - Chest CT: decrease in the RLL consolidation. chronic area of scarring or consolidation in right lung apex - blood cultures NGTD - ID consulted, possible right sided HAP COPD - IV methylprednisolone - duonebs Asthma - duonebs DAHLIA - BUN 106 - CR 2.5 - nephrology consulted, Dr Chatman rec no need for renal replacement at this time Breast Ca - Palliative care consulted DM - accuchecks q6 - SSI med HLD - lipitor Ppx - heparin - protonix Pt seen, examined, assessment and plan discussed with Dr Kajal Mays PGY1, Internal Medicine Resident <Darius Rdz - Last Filed: 04/14/18 17:52> Objective - Vital Signs/Intake and Output Vital Signs (last 24 hours): Temp Pulse Resp BP Pulse Ox 98.3 F 86 18 148/58 L 98 04/13/18 03:09 04/13/18 05:22 04/13/18 07:12 04/13/18 03:09 04/12/18 08:10 Intake and Output: 04/13/18 04/13/18 06:59 18:59 Intake Total 325 Balance 325 - Medications Medications: Current Medications Albuterol/Ipratropium (Duoneb 3 Mg/0.5 Mg (3 Ml) Ud) 3 ml IH Q2H PRN PRN Reason: Shortness of Breath Last Admin: 04/13/18 07:10 Dose: 3 ml Aspirin (Aspirin Chewable) 81 mg PO DAILY [facility] Last Admin: 04/12/18 09:58 Dose: 81 mg Atorvastatin Calcium (Lipitor) 40 mg PO DAILY [facility] Last Admin: 04/12/18 09:58 Dose: 40 mg Ergocalciferol (Drisdol 50,000 Intl Units Cap) 1 cap PO Q7D [facility] Last Admin: 04/11/18 16:07 Dose: Not Given Heparin Sodium (Porcine) (Heparin) 5,000 units SC Q8H [facility]; Protocol Last Admin: 04/13/18 06:30 Dose: 5,000 units Fentanyl Citrate (Fentanyl Citrate/Sodium Chloride 1 Mg/100 Ml) 1,000 mcg in 10 0 mls @ 2 mls/hr IV .Q24H PRN; Protocol PRN Reason: TITRATE PER MD ORDER Last Titration: 04/12/18 07:00 Dose: 0 mcg/hr, 0 mls/hr Midazolam 100 mg/100ml in NS (Midazolam 100 Mg/100ml In Ns) 100 mg in 100 mls @ 1 mls/hr IV .Q24H PRN; Protocol PRN Reason: Sedation Last Titration: 04/12/18 09:09 Dose: 0 mg/hr, 0 mls/hr Cefepime HCl (Maxipime 1gm) 1 gm in 100 mls @ 100 mls/hr IVPB Q8 [facility]; Protocol Last Admin: 04/13/18 06:26 Dose: 100 mls/hr Insulin Human Lispro (Humalog High) 0 units SC Q4H [facility]; Protocol Last Admin: 04/13/18 04:00 Dose: Not Given Methylprednisolone (Solu-Medrol) 20 mg IVP Q8H [facility] Last Admin: 04/13/18 00:59 Dose: 20 mg Metoprolol Tartrate (Lopressor) 25 mg PO BID [facility] Last Admin: 04/12/18 18:25 Dose: 25 mg Nicotine (Nicoderm Cq) 1 patch TD DAILY [facility] Last Admin: 04/12/18 09:01 Dose: 1 patch Pantoprazole Sodium (Protonix Inj) 40 mg IVP DAILY [facility] Last Admin: 04/12/18 09:01 Dose: 40 mg - Labs Labs: 04/13/18 06:10 04/13/18 06:10 PT 11.9 SECONDS (9.4-12.5) 04/11/18 12:25 INR 1.05 04/11/18 12:25 APTT 25.3 Seconds (26.9-38.3) L 04/11/18 12:25 Attending/Attestation - Attestation I have personally seen and examined this patient.: Yes I have fully participated in the care of the patient.: Yes I have reviewed all pertinent clinical information, including history, physical exam and plan: Yes Notes (Text): 04/13/18 07:46 Attending note; Patient seen and examined with resident. Patient is currently extubated. On high flow oxygen. Alert and awake. Asking for water. Otherwise looks tired. Vitals stable. Patient is a 57-year-old female with a PMH of COPD, asthma, breast Ca, not treated, anemia, anxiety, DM, recurrent UTIs who left [facility] yesterday AMA Is admitted for respiratory failure. 1. Acute hypercapnic respiratory failure; patient with a history of long-stand ing COPD. Patient actively smokes. Currently extubated on high flow oxygen. Alert and awake today. Continue DuoNeb and IV Solu-Medrol. 2. Pneumonia; chest x-ray shows right lower lobe infiltrate with possible effusion. CT chest Started on IV vancomycin and cefepime. ID evaluation requested. 3. Anemia; patient has chronic anemia. Multifactorial. Monitor closely. 4. History of breast cancer; did not completed treatment. 5. Hypertension; monitor blood pressure closely. Add metoprolol. 6. Active smoking. Will educate the patient about smoking cessation once awake. Monitor the patient closely in ICU. Weaning protocol. Prognosis is poor secondary to multiple medical problems and noncompliance with follow-up. Upon discharge the patient will follow up with PMD Dr. Sosa.
--- NOTE | 2018-04-12 10:30 | CP.PCM.CON ---
<Camryn Mills - Last Filed: 04/12/18 14:23> History of Present Illness - History of Present Illness History of Present Illness: Palliative consult requested by Reason: Goals of care 57 year old female with history of COPD, multiple admissions (6 in 1 year)for respiratory failure. She presented on 04/11 in respiratory failure,intubated but has since been extubated. Chest x ray: Increasing RLL infiltrate and effusion Chest CT: decrease in RLL cosolidation and adjacent pleural effusion> Residual consolidation posterior right lung base. Chronic area of scarring or consolidation on posterior aspect of right lung appex. Calcification in upper left quadrant of left breast, mammogram suggested PMHx: COPD, s/p multiple intubations, ER/PA/Her2 Maria G positive breast cancer> one cycle of chemotherapy and then refused to continue treatment, DM,CKD,anemia, anxiety, substance abuse, overdose, UTI PSHx: mastectomy,right chest port a cath, inguinal hernia repair, spinal surgery Social History:Current smoker, substance abuse. Lives with family. Advance Care Planning: The patient does not have an Advanced Directive. Family History: Non contributory Review of Systems: As per HPI, denies other complaints 10 point ROS negative Past Patient History - Infectious Disease Hx of Infectious Diseases: None - Tetanus Immunizations Tetanus Immunization: Unknown - Past Medical History & Family History Past Medical History?: Yes - Past Social History Smoking Status: Current Some Days Smoker - CARDIAC Hx Cardiac Disorders: Yes Hx Hypertension: Yes - PULMONARY Hx Respiratory Disorders: Yes (CURRENTLY SMOKES 2 PPD CIGARETTES) Hx Chronic Obstructive Pulmonary Disease (COPD): Yes Hx Pneumonia: Yes - NEUROLOGICAL Hx Neurological Disorder: Yes - HEENT Hx HEENT Problems: Yes Hx Cataracts: Yes - RENAL Hx Chronic Kidney Disease: Yes (BLADDER TUMOR) - ENDOCRINE/METABOLIC Hx Endocrine Disorders: Yes Hx Diabetes Mellitus Type 2: Yes - HEMATOLOGICAL/ONCOLOGICAL Hx Blood Disorders: Yes (blood transfusion) Hx Anemia: Yes (BLOOD TRANSFUSION) Hx Cancer: Yes (left breast dx 06/2015) Hx Chemotherapy: Yes (2016 as per son) - INTEGUMENTARY Hx Dermatological Problems: Yes Other/Comment: 04-11-18 MULTIPLE BRUISING TO UPPER AND LE,ABDOMEN.BILATERAL LEG EDEMA +3 PITTING.STASIS ULCER LE. BURN TO FACE AND HEAD. - MUSCULOSKELETAL/RHEUMATOLOGICAL Hx Musculoskeletal Disorders: Yes Hx Falls: Yes Hx Unsteady Gait: Yes - GASTROINTESTINAL Hx Gastrointestinal Disorders: Yes (INGUINAL HERNIA REPAIR) - GENITOURINARY/GYNECOLOGICAL Hx Genitourinary Disorders: No - PSYCHIATRIC Hx Psychophysiologic Disorder: Yes Hx Anxiety: Yes Hx Depression: Yes Hx Substance Use: No (UNKNOWN) - SURGICAL HISTORY Hx Surgeries: Yes - ANESTHESIA Hx Anesthesia: Yes Hx Anesthesia Reactions: No Hx Malignant Hyperthermia: No Meds Allergies/Adverse Reactions: Allergies Allergy/AdvReac Type Severity Reaction Status Date / Time levofloxacin [From Levaquin] Allergy SHORTNESS Verified 04/11/18 14:31 OF BREATH;PARANOID nystatin Allergy SWELLING Verified 04/11/18 14:31 - Medications Medications: Current Medications Albuterol/Ipratropium (Duoneb 3 Mg/0.5 Mg (3 Ml) Ud) 3 ml IH Q2H PRN PRN Reason: Shortness of Breath Last Admin: 04/12/18 07:21 Dose: 3 ml Aspirin (Aspirin Chewable) 81 mg PO DAILY [facility] Last Admin: 04/12/18 09:58 Dose: 81 mg Atorvastatin Calcium (Lipitor) 40 mg PO DAILY [facility] Last Admin: 04/12/18 09:58 Dose: 40 mg Ergocalciferol (Drisdol 50,000 Intl Units Cap) 1 cap PO Q7D [facility] Last Admin: 04/11/18 16:07 Dose: Not Given Heparin Sodium (Porcine) (Heparin) 5,000 units SC Q8H [facility]; Protocol Last Admin: 04/12/18 05:55 Dose: 5,000 units Fentanyl Citrate (Fentanyl Citrate/Sodium Chloride 1 Mg/100 Ml) 1,000 mcg in 100 mls @ 2 mls/hr IV .Q24H PRN; Protocol PRN Reason: TITRATE PER MD ORDER Last Titration: 04/12/18 07:00 Dose: 0 mcg/hr, 0 mls/hr Midazolam 100 mg/100ml in NS (Midazolam 100 Mg/100ml In Ns) 100 mg in 100 mls @ 1 mls/hr IV .Q24H PRN; Protocol PRN Reason: Sedation Last Titration: 04/12/18 09:09 Dose: 0 mg/hr, 0 mls/hr Cefepime HCl (Maxipime 1gm) 1 gm in 100 mls @ 100 mls/hr IVPB Q8 [facility]; Protocol Last Admin: 04/12/18 05:56 Dose: 100 mls/hr Insulin Human Regular (Humulin R Med) 0 units SC Q4 [facility]; Protocol Last Admin: 04/12/18 08:07 Dose: 1 unit Methylprednisolone (Solu-Medrol) 20 mg IVP Q8H [facility] Last Admin: 04/12/18 09:04 Dose: 20 mg Nicotine (Nicoderm Cq) 1 patch TD DAILY [facility] Last Admin: 04/12/18 09:01 Dose: 1 patch Pantoprazole Sodium (Protonix Inj) 40 mg IVP DAILY [facility] Last Admin: 04/12/18 09:01 Dose: 40 mg Physical Exam - Constitutional Appears: Cachectic, Chronically Ill - Head Exam Head Exam: NORMOCEPHALIC - Eye Exam Eye Exam: Normal appearance, PERRL - ENT Exam ENT Exam: Mucous Membranes Moist - Respiratory Exam Respiratory Exam: Decreased Breath Sounds, Wheezes Additional comments: right chest port a cath - Cardiovascular Exam Cardiovascular Exam: REGULAR RHYTHM, +S1, +S2 - GI/Abdominal Exam GI & Abdominal Exam: Normal Bowel Sounds, Soft Additional comments: no tenderness - Extremities Exam Extremities exam: Positive for: pedal pulses present Additional comments: would left centeno - Back Exam Back exam: NORMAL INSPECTION - Neurological Exam Additional comments: lethargic - Skin Skin Exam: Dry, Pallor - Additional Findings Additional findings: palliative performance scale rating 30% Results - Vital Signs Recent Vital Signs: Last Vital Signs Temp 98.4 F 04/12/18 07:24 Pulse 104 H 04/12/18 10:00 Resp 20 04/12/18 08:42 BP 132/46 L 04/12/18 08:00 Pulse Ox 98 04/12/18 08:10 - Labs Result Diagrams: 04/12/18 08:00 04/12/18 06:15 Labs: Laboratory Results - last 24 hr 04/11/18 04/11/18 04/11/18 12:25 12:25 12:25 WBC 10.7 D RBC 2.59 L Hgb 7.3 L Hct 25.5 L MCV 98.5 MCH 28.2 MCHC 28.6 L RDW 20.4 H Plt Count 234 MPV 11.3 H Gran % 86.3 H Lymph % (Auto) 7.6 L [place] % (Auto) 5.9 Eos % (Auto) 0.1 L Baso % (Auto) 0.1 Gran # 9.26 H Lymph # (Auto) 0.8 L [place] # (Auto) 0.6 Eos # (Auto) 0.0 Baso # (Auto) 0.01 Neutrophils % (Manual) Lymphocytes % (Manual) Monocytes % (Manual) Platelet Evaluation Large Platelets Retic Count PT 11.9 INR 1.05 APTT 25.3 L pCO2 pO2 HCO3 ABG pH ABG Total CO2 ABG O2 Saturation ABG O2 Content ABG Base Excess ABG Hemoglobin ABG Carboxyhemoglobin POC ABG HHb (Measured) ABG Methemoglobin ABG O2 Capacity ABG Potassium Hgb O2 Saturation Glucose Lactate FiO2 Crit Value Called To Crit Value Called By Blood Gas Notified Time Sodium 145 Potassium 4.0 Chloride 103 Carbon Dioxide 39 H Anion Gap 7 L BUN 110 H Creatinine 2.5 H Est GFR ( Amer) 24 Est GFR (Non-Af Amer) 20 POC Glucose (mg/dL) Random Glucose 375 H* D Calcium 9.1 Phosphorus 3.9 Magnesium 2.5 H Total Bilirubin 0.4 AST 30 ALT 68 H Alkaline Phosphatase 74 Total Creatine Kinase 53 Troponin I 0.08 D NT-Pro-B Natriuret Pep 7140 H Total Protein 5.8 Albumin 3.4 Globulin 2.4 Albumin/Globulin Ratio 1.4 Procalcitonin Arterial Blood Potassium Urine Color Urine Appearance Urine pH Ur Specific Turner Urine Protein Urine Glucose (UA) Urine Ketones Urine Blood Urine Nitrate Urine Bilirubin Urine Urobilinogen Ur Leukocyte Esterase Urine RBC Urine WBC Ur Epithelial Cells Urine Bacteria Urine Other Influenza Typ A,B (EIA) Ur L.pneumophila Ag Blood Type Antibody Screen Crossmatch BBK History Checked 04/11/18 04/11/18 04/11/18 12:30 12:45 12:45 WBC RBC Hgb Hct MCV MCH MCHC RDW Plt Count MPV Gran % Lymph % (Auto) [place] % (Auto) Eos % (Auto) Baso % (Auto) Gran # Lymph # (Auto) [place] # (Auto) Eos # (Auto) Baso # (Auto) Neutrophils % (Manual) Lymphocytes % (Manual) Monocytes % (Manual) Platelet Evaluation Large Platelets Retic Count PT INR APTT pCO2 100 H* pO2 385.0 H HCO3 40.9 H* ABG pH 7.22 L ABG Total CO2 44.0 H ABG O2 Saturation 100.6 H ABG O2 Content ABG Base Excess 9.1 H ABG Hemoglobin ABG Carboxyhemoglobin POC ABG HHb (Measured) ABG Methemoglobin ABG O2 Capacity ABG Potassium 3.8 Hgb O2 Saturation Glucose 372 H Lactate 0.5 L FiO2 100.0 Crit Value Called To reggie Shirley Crit Value Called By Lauren Blood Gas Notified Time 1242 Sodium 147.0 Potassium Chloride 110.0 H Carbon Dioxide Anion Gap BUN Creatinine Est GFR ( Amer) Est GFR (Non-Af Amer) POC Glucose (mg/dL) Random Glucose Calcium Phosphorus Magnesium Total Bilirubin AST ALT Alkaline Phosphatase Total Creatine Kinase Troponin I NT-Pro-B Natriuret Pep Total Protein Albumin Globulin Albumin/Globulin Ratio Procalcitonin Arterial Blood Potassium 3.8 Urine Color Light yellow Urine Appearance Sl cloudy Urine pH 6.0 Ur Specific [place] 1.020 Urine Protein 30 H Urine Glucose (UA) 100 H Urine Ketones Negative Urine Blood Trace-intact H Urine Nitrate Negative Urine Bilirubin Negative Urine Urobilinogen 0.2 Ur Leukocyte Esterase Small H Urine RBC 0 - 2 Urine WBC 5 - 10 H Ur Epithelial Cells 0 - 2 Urine Bacteria Few Urine Other Uyeast Influenza Typ A,B (EIA) Negative for flu a/b Ur L.pneumophila Ag Blood Type Antibody Screen Crossmatch BBK History Checked 04/11/18 04/11/18 04/11/18 13:00 13:55 14:00 WBC RBC Hgb Hct MCV MCH MCHC RDW Plt Count MPV Gran % Lymph % (Auto) [place] % (Auto) Eos % (Auto) Baso % (Auto) Gran # Lymph # (Auto) [place] # (Auto) Eos # (Auto) Baso # (Auto) Neutrophils % (Manual) Lymphocytes % (Manual) Monocytes % (Manual) Platelet Evaluation Large Platelets Retic Count 2.07 H PT INR APTT pCO2 58 H pO2 67.0 L HCO3 38.5 H ABG pH 7.43 ABG Total CO2 40.3 H ABG O2 Saturation 98.3 H ABG O2 Content 9.2 L ABG Base Excess 12.8 H ABG Hemoglobin 7.2 L ABG Carboxyhemoglobin 7.4 H POC ABG HHb (Measured) 1.6 ABG Methemoglobin 0.7 ABG O2 Capacity 9.4 L ABG Potassium Hgb O2 Saturation 90.3 L Glucose Lactate FiO2 40.0 Crit Value Called To Crit Value Called By Blood Gas Notified Time Sodium Potassium Chloride Carbon Dioxide Anion Gap BUN Creatinine Est GFR ( Amer) Est GFR (Non-Af Amer) POC Glucose (mg/dL) Random Glucose Calcium Phosphorus Magnesium Total Bilirubin AST ALT Alkaline Phosphatase Total Creatine Kinase Troponin I NT-Pro-B Natriuret Pep Total Protein Albumin Globulin Albumin/Globulin Ratio Procalcitonin 0.55 H Arterial Blood Potassium Urine Color Urine Appearance Urine pH Ur Specific [place] Urine Protein Urine Glucose (UA) Urine Ketones Urine Blood Urine Nitrate Urine Bilirubin Urine Urobilinogen Ur Leukocyte Esterase Urine RBC Urine WBC Ur Epithelial Cells Urine Bacteria Urine Other Influenza Typ A,B (EIA) Ur L.pneumophila Ag Blood Type Antibody Screen Crossmatch BBK History Checked 04/11/18 04/11/18 04/11/18 15:00 15:15 15:56 WBC RBC Hgb Hct MCV MCH MCHC RDW Plt Count MPV Gran % Lymph % (Auto) [place] % (Auto) Eos % (Auto) Baso % (Auto) Gran # Lymph # (Auto) [place] # (Auto) Eos # (Auto) Baso # (Auto) Neutrophils % (Manual) Lymphocytes % (Manual) Monocytes % (Manual) Platelet Evaluation Large Platelets Retic Count PT INR APTT pCO2 pO2 HCO3 ABG pH ABG Total CO2 ABG O2 Saturation ABG O2 Content ABG Base Excess ABG Hemoglobin ABG Carboxyhemoglobin POC ABG HHb (Measured) ABG Methemoglobin ABG O2 Capacity ABG Potassium Hgb O2 Saturation Glucose Lactate FiO2 Crit Value Called To Crit Value Called By Blood Gas Notified Time Sodium Potassium Chloride Carbon Dioxide Anion Gap BUN Creatinine Est GFR ( Amer) Est GFR (Non-Af Amer) POC Glucose (mg/dL) 402 H* 384 H Random Glucose Calcium Phosphorus Magnesium Total Bilirubin AST ALT Alkaline Phosphatase Total Creatine Kinase Troponin I NT-Pro-B Natriuret Pep Total Protein Albumin Globulin Albumin/Globulin Ratio Procalcitonin Arterial Blood Potassium Urine Color Urine Appearance Urine pH Ur Specific [place] Urine Protein Urine Glucose (UA) Urine Ketones Urine Blood Urine Nitrate Urine Bilirubin Urine Urobilinogen Ur Leukocyte Esterase Urine RBC Urine WBC Ur Epithelial Cells Urine Bacteria Urine Other Influenza Typ A,B (EIA) Ur L.pneumophila Ag Negative Blood Type Antibody Screen Crossmatch BBK History Checked 04/11/18 04/11/18 04/12/18 20:03 23:59 04:18 WBC RBC Hgb Hct MCV MCH MCHC RDW Plt Count MPV Gran % Lymph % (Auto) [place] % (Auto) Eos % (Auto) Baso % (Auto) Gran # Lymph # (Auto) [place] # (Auto) Eos # (Auto) Baso # (Auto) Neutrophils % (Manual) Lymphocytes % (Manual) Monocytes % (Manual) Platelet Evaluation Large Platelets Retic Count PT INR APTT pCO2 pO2 HCO3 ABG pH ABG Total CO2 ABG O2 Saturation ABG O2 Content ABG Base Excess ABG Hemoglobin ABG Carboxyhemoglobin POC ABG HHb (Measured) ABG Methemoglobin ABG O2 Capacity ABG Potassium Hgb O2 Saturation Glucose Lactate FiO2 Crit Value Called To Crit Value Called By Blood Gas Notified Time Sodium Potassium Chloride Carbon Dioxide Anion Gap BUN Creatinine Est GFR ( Amer) Est GFR (Non-Af Amer) POC Glucose (mg/dL) 227 H 153 H 183 H Random Glucose Calcium Phosphorus Magnesium Total Bilirubin AST ALT Alkaline Phosphatase Total Creatine Kinase Troponin I NT-Pro-B Natriuret Pep Total Protein Albumin Globulin Albumin/Globulin Ratio Procalcitonin Arterial Blood Potassium Urine Color Urine Appearance Urine pH Ur Specific [place] Urine Protein Urine Glucose (UA) Urine Ketones Urine Blood Urine Nitrate Urine Bilirubin Urine Urobilinogen Ur Leukocyte Esterase Urine RBC Urine WBC Ur Epithelial Cells Urine Bacteria Urine Other Influenza Typ A,B (EIA) Ur L.pneumophila Ag Blood Type Antibody Screen Crossmatch BBK History Checked 04/12/18 04/12/18 04/12/18 05:00 06:15 06:15 WBC 7.8 D RBC 2.36 L Hgb 6.6 L* Hct 22.7 L MCV 96.2 MCH 28.0 MCHC 29.1 L RDW 21.1 H Plt Count 234 MPV 11.1 H Gran % Lymph % (Auto) [place] % (Auto) Eos % (Auto) Baso % (Auto) Gran # Lymph # (Auto) [place] # (Auto) Eos # (Auto) Baso # (Auto) Neutrophils % (Manual) Lymphocytes % (Manual) Monocytes % (Manual) Platelet Evaluation Large Platelets Retic Count PT INR APTT pCO2 45 pO2 72.0 L HCO3 36.7 H ABG pH 7.52 H ABG Total CO2 38.1 H ABG O2 Saturation 98.8 H ABG O2 Content 8.9 L ABG Base Excess 12.7 H ABG Hemoglobin 6.5 L ABG Carboxyhemoglobin 2.0 H POC ABG HHb (Measured) 1.2 ABG Methemoglobin 1.1 ABG O2 Capacity 9.0 L ABG Potassium Hgb O2 Saturation 95.8 Glucose Lactate FiO2 40.0 Crit Value Called To Crit Value Called By Blood Gas Notified Time Sodium 147 Potassium 4.0 Chloride 108 H Carbon Dioxide 35 H Anion Gap 8 L BUN 106 H Creatinine 2.5 H Est GFR ( Amer) 24 Est GFR (Non-Af Amer) 20 POC Glucose (mg/dL) Random Glucose 156 H Calcium 8.9 Phosphorus Magnesium Total Bilirubin 0.6 AST 30 ALT 55 Alkaline Phosphatase 62 Total Creatine Kinase Troponin I NT-Pro-B Natriuret Pep Total Protein 5.2 L Albumin 3.0 Globulin 2.2 Albumin/Globulin Ratio 1.4 Procalcitonin Arterial Blood Potassium Urine Color Urine Appearance Urine pH Ur Specific [place] Urine Protein Urine Glucose (UA) Urine Ketones Urine Blood Urine Nitrate Urine Bilirubin Urine Urobilinogen Ur Leukocyte Esterase Urine RBC Urine WBC Ur Epithelial Cells Urine Bacteria Urine Other Influenza Typ A,B (EIA) Ur L.pneumophila Ag Blood Type Antibody Screen Crossmatch BBK History Checked 04/12/18 04/12/18 04/12/18 08:00 08:00 08:21 WBC 10.3 D RBC 2.57 L Hgb 7.2 L Hct 24.5 L MCV 95.3 MCH 28.0 MCHC 29.4 L RDW 21.1 H Plt Count 222 MPV 10.5 Gran % 93.8 H Lymph % (Auto) 3.8 L [place] % (Auto) 2.4 Eos % (Auto) 0.0 L Baso % (Auto) 0.0 Gran # 9.68 H Lymph # (Auto) 0.4 L [place] # (Auto) 0.3 Eos # (Auto) 0.0 Baso # (Auto) 0.00 Neutrophils % (Manual) 91 H Lymphocytes % (Manual) 8 L Monocytes % (Manual) 1 Platelet Evaluation Normal Large Platelets Present Retic Count PT INR APTT pCO2 55 H pO2 69.0 L HCO3 36.5 H ABG pH 7.43 ABG Total CO2 38.2 H ABG O2 Saturation 97.7 ABG O2 Content 9.3 L ABG Base Excess 11.0 H ABG Hemoglobin 6.9 L ABG Carboxyhemoglobin 2.1 H POC ABG HHb (Measured) 2.2 ABG Methemoglobin 1.2 ABG O2 Capacity 9.5 L ABG Potassium Hgb O2 Saturation 94.5 L Glucose Lactate FiO2 40.0 Crit Value Called To Crit Value Called By Blood Gas Notified Time Sodium Potassium Chloride Carbon Dioxide Anion Gap BUN Creatinine Est GFR ( Amer) Est GFR (Non-Af Amer) POC Glucose (mg/dL) Random Glucose Calcium Phosphorus Magnesium Total Bilirubin AST ALT Alkaline Phosphatase Total Creatine Kinase Troponin I NT-Pro-B Natriuret Pep Total Protein Albumin Globulin Albumin/Globulin Ratio Procalcitonin Arterial Blood Potassium Urine Color Urine Appearance Urine pH Ur Specific [place] Urine Protein Urine Glucose (UA) Urine Ketones Urine Blood Urine Nitrate Urine Bilirubin Urine Urobilinogen Ur Leukocyte Esterase Urine RBC Urine WBC Ur Epithelial Cells Urine Bacteria Urine Other Influenza Typ A,B (EIA) Ur L.pneumophila Ag Blood Type B POSITIVE Antibody Screen Negative Crossmatch See Detail BBK History Checked Patient has bt Assessment & Plan - Assessment and Plan (Free Text) Assessment: 57 year old female with multiple medical comorbidities(see PMH) who is admitted in respiratory failure, s/p intubation now on high flow oxygen,anemia,CKD. I met with patient during last admission. I was unable to determine if she understood and was capable of participating in goals of care discussion. She did not make eye contact and seemed unwilling to engage on conversation. I attempted to speak with patient on two separate occasions today, she was lethargic and did not answer my questions. Will arrange for family meeting. <Darius Rdz - Last Filed: 04/12/18 15:42> Meds - Medications Medications: Current Medications Albuterol/Ipratropium (Duoneb 3 Mg/0.5 Mg (3 Ml) Ud) 3 ml IH Q2H PRN PRN Reason: Shortness of Breath Last Admin: 04/12/18 13:29 Dose: 3 ml Aspirin (Aspirin Chewable) 81 mg PO DAILY [facility] Last Admin: 04/12/18 09:58 Dose: 81 mg Atorvastatin Calcium (Lipitor) 40 mg PO DAILY [facility] Last Admin: 04/12/18 09:58 Dose: 40 mg Ergocalciferol (Drisdol 50,000 Intl Units Cap) 1 cap PO Q7D [facility] Last Admin: 04/11/18 16:07 Dose: Not Given Furosemide (Lasix) 40 mg IV ONCE ONE Stop: 04/12/18 17:01 Heparin Sodium (Porcine) (Heparin) 5,000 units SC Q8H [facility]; Protocol Last Admin: 04/12/18 05:55 Dose: 5,000 units Fentanyl Citrate (Fentanyl Citrate/Sodium Chloride 1 Mg/100 Ml) 1,000 mcg in 100 mls @ 2 mls/hr IV .Q24H PRN; Protocol PRN Reason: TITRATE PER MD ORDER Last Titration: 04/12/18 07:00 Dose: 0 mcg/hr, 0 mls/hr Midazolam 100 mg/100ml in NS (Midazolam 100 Mg/100ml In Ns) 100 mg in 100 mls @ 1 mls/hr IV .Q24H PRN; Protocol PRN Reason: Sedation Last Titration: 04/12/18 09:09 Dose: 0 mg/hr, 0 mls/hr Cefepime HCl (Maxipime 1gm) 1 gm in 100 mls @ 100 mls/hr IVPB Q8 [facility]; Protocol Last Admin: 04/12/18 05:56 Dose: 100 mls/hr Insulin Human Regular (Humulin R Med) 0 units SC Q4 [facility]; Protocol Last Admin: 04/12/18 12:58 Dose: 2 unit Methylprednisolone (Solu-Medrol) 20 mg IVP Q8H [facility] Last Admin: 04/12/18 09:04 Dose: 20 mg Metoprolol Tartrate (Lopressor) 25 mg PO BID [facility] Nicotine (Nicoderm Cq) 1 patch TD DAILY [facility] Last Admin: 04/12/18 09:01 Dose: 1 patch Pantoprazole Sodium (Protonix Inj) 40 mg IVP DAILY [facility] Last Admin: 04/12/18 09:01 Dose: 40 mg Results - Vital Signs Recent Vital Signs: Last Vital Signs Temp 98.4 F 04/12/18 15:31 Pulse 100 H 04/12/18 15:31 Resp 22 04/12/18 15:31 BP 137/57 L 04/12/18 15:31 Pulse Ox 98 04/12/18 08:10 - Labs Result Diagrams: 04/12/18 08:00 04/12/18 06:15 Labs: Laboratory Results - last 24 hr 04/11/18 04/11/1819 13:00 14:00 15:00 WBC RBC Hgb Hct MCV MCH MCHC RDW Plt Count MPV Gran % Lymph % (Auto) [place] % (Auto) Eos % (Auto) Baso % (Auto) Gran # Lymph # (Auto) [place] # (Auto) Eos # (Auto) Baso # (Auto) Neutrophils % (Manual) Lymphocytes % (Manual) Monocytes % (Manual) Platelet Evaluation Large Platelets Retic Count 2.07 H pCO2 pO2 HCO3 ABG pH ABG Total CO2 ABG O2 Saturation ABG O2 Content ABG Base Excess ABG Hemoglobin ABG Carboxyhemoglobin POC ABG HHb (Measured) ABG Methemoglobin ABG O2 Capacity Hgb O2 Saturation FiO2 Sodium Potassium Chloride Carbon Dioxide Anion Gap BUN Creatinine Est GFR ( Amer) Est GFR (Non-Af Amer) POC Glucose (mg/dL) Random Glucose Calcium Total Bilirubin AST ALT Alkaline Phosphatase Total Protein Albumin Globulin Albumin/Globulin Ratio Procalcitonin 0.55 H Ur L.pneumophila Ag Negative Blood Type Antibody Screen Crossmatch BBK History Checked 04/11/18 04/11/18 04/11/18 15:15 15:56 20:03 WBC RBC Hgb Hct MCV MCH MCHC RDW Plt Count MPV Gran % Lymph % (Auto) [place] % (Auto) Eos % (Auto) Baso % (Auto) Gran # Lymph # (Auto) [place] # (Auto) Eos # (Auto) Baso # (Auto) Neutrophils % (Manual) Lymphocytes % (Manual) Monocytes % (Manual) Platelet Evaluation Large Platelets Retic Count pCO2 pO2 HCO3 ABG pH ABG Total CO2 ABG O2 Saturation ABG O2 Content ABG Base Excess ABG Hemoglobin ABG Carboxyhemoglobin POC ABG HHb (Measured) ABG Methemoglobin ABG O2 Capacity Hgb O2 Saturation FiO2 Sodium Potassium Chloride Carbon Dioxide Anion Gap BUN Creatinine Est GFR ( Amer) Est GFR (Non-Af Amer) POC Glucose (mg/dL) 402 H* 384 H 227 H Random Glucose Calcium Total Bilirubin AST ALT Alkaline Phosphatase Total Protein Albumin Globulin Albumin/Globulin Ratio Procalcitonin Ur L.pneumophila Ag Blood Type Antibody Screen Crossmatch BBK History Checked 04/11/18 04/12/18 04/12/18 23:59 04:18 05:00 WBC RBC Hgb Hct MCV MCH MCHC RDW Plt Count MPV Gran % Lymph % (Auto) [place] % (Auto) Eos % (Auto) Baso % (Auto) Gran # Lymph # (Auto) [place] # (Auto) Eos # (Auto) Baso # (Auto) Neutrophils % (Manual) Lymphocytes % (Manual) Monocytes % (Manual) Platelet Evaluation Large Platelets Retic Count pCO2 45 pO2 72.0 L HCO3 36.7 H ABG pH 7.52 H ABG Total CO2 38.1 H ABG O2 Saturation 98.8 H ABG O2 Content 8.9 L ABG Base Excess 12.7 H ABG Hemoglobin 6.5 L ABG Carboxyhemoglobin 2.0 H POC ABG HHb (Measured) 1.2 ABG Methemoglobin 1.1 ABG O2 Capacity 9.0 L Hgb O2 Saturation 95.8 FiO2 40.0 Sodium Potassium Chloride Carbon Dioxide Anion Gap BUN Creatinine Est GFR ( Amer) Est GFR (Non-Af Amer) POC Glucose (mg/dL) 153 H 183 H Random Glucose Calcium Total Bilirubin AST ALT Alkaline Phosphatase Total Protein Albumin Globulin Albumin/Globulin Ratio Procalcitonin Ur L.pneumophila Ag Blood Type Antibody Screen Crossmatch BBK History Checked 04/12/18 04/12/18 04/12/18 06:15 06:15 07:30 WBC 7.8 D RBC 2.36 L Hgb 6.6 L* Hct 22.7 L MCV 96.2 MCH 28.0 MCHC 29.1 L RDW 21.1 H Plt Count 234 MPV 11.1 H Gran % Lymph % (Auto) [place] % (Auto) Eos % (Auto) Baso % (Auto) Gran # Lymph # (Auto) [place] # (Auto) Eos # (Auto) Baso # (Auto) Neutrophils % (Manual) Lymphocytes % (Manual) Monocytes % (Manual) Platelet Evaluation Large Platelets Retic Count pCO2 pO2 HCO3 ABG pH ABG Total CO2 ABG O2 Saturation ABG O2 Content ABG Base Excess ABG Hemoglobin ABG Carboxyhemoglobin POC ABG HHb (Measured) ABG Methemoglobin ABG O2 Capacity Hgb O2 Saturation FiO2 Sodium 147 Potassium 4.0 Chloride 108 H Carbon Dioxide 35 H Anion Gap 8 L BUN 106 H Creatinine 2.5 H Est GFR ( Amer) 24 Est GFR (Non-Af Amer) 20 POC Glucose (mg/dL) 180 H Random Glucose 156 H Calcium 8.9 Total Bilirubin 0.6 AST 30 ALT 55 Alkaline Phosphatase 62 Total Protein 5.2 L Albumin 3.0 Globulin 2.2 Albumin/Globulin Ratio 1.4 Procalcitonin Ur L.pneumophila Ag Blood Type Antibody Screen Crossmatch BBK History Checked 04/12/18 04/12/18 04/12/18 08:00 08:00 08:21 WBC 10.3 D RBC 2.57 L Hgb 7.2 L Hct 24.5 L MCV 95.3 MCH 28.0 MCHC 29.4 L RDW 21.1 H Plt Count 222 MPV 10.5 Gran % 93.8 H Lymph % (Auto) 3.8 L [place] % (Auto) 2.4 Eos % (Auto) 0.0 L Baso % (Auto) 0.0 Gran # 9.68 H Lymph # (Auto) 0.4 L [place] # (Auto) 0.3 Eos # (Auto) 0.0 Baso # (Auto) 0.00 Neutrophils % (Manual) 91 H Lymphocytes % (Manual) 8 L Monocytes % (Manual) 1 Platelet Evaluation Normal Large Platelets Present Retic Count pCO2 55 H pO2 69.0 L HCO3 36.5 H ABG pH 7.43 ABG Total CO2 38.2 H ABG O2 Saturation 97.7 ABG O2 Content 9.3 L ABG Base Excess 11.0 H ABG Hemoglobin 6.9 L ABG Carboxyhemoglobin 2.1 H POC ABG HHb (Measured) 2.2 ABG Methemoglobin 1.2 ABG O2 Capacity 9.5 L Hgb O2 Saturation 94.5 L FiO2 40.0 Sodium Potassium Chloride Carbon Dioxide Anion Gap BUN Creatinine Est GFR ( Amer) Est GFR (Non-Af Amer) POC Glucose (mg/dL) Random Glucose Calcium Total Bilirubin AST ALT Alkaline Phosphatase Total Protein Albumin Globulin Albumin/Globulin Ratio Procalcitonin Ur L.pneumophila Ag Blood Type B POSITIVE Antibody Screen Negative Crossmatch See Detail BBK History Checked Patient has bt 04/12/18 11:25 WBC RBC Hgb Hct MCV MCH MCHC RDW Plt Count MPV Gran % Lymph % (Auto) [place] % (Auto) Eos % (Auto) Baso % (Auto) Gran # Lymph # (Auto) [place] # (Auto) Eos # (Auto) Baso # (Auto) Neutrophils % (Manual) Lymphocytes % (Manual) Monocytes % (Manual) Platelet Evaluation Large Platelets Retic Count pCO2 pO2 HCO3 ABG pH ABG Total CO2 ABG O2 Saturation ABG O2 Content ABG Base Excess ABG Hemoglobin ABG Carboxyhemoglobin POC ABG HHb (Measured) ABG Methemoglobin ABG O2 Capacity Hgb O2 Saturation FiO2 Sodium Potassium Chloride Carbon Dioxide Anion Gap BUN Creatinine Est GFR ( Amer) Est GFR (Non-Af Amer) POC Glucose (mg/dL) 206 H Random Glucose Calcium Total Bilirubin AST ALT Alkaline Phosphatase Total Protein Albumin Globulin Albumin/Globulin Ratio Procalcitonin Ur L.pneumophila Ag Blood Type Antibody Screen Crossmatch BBK History Checked
--- NOTE | 2018-04-12 12:08 | CP.PCM.CON ---
<DorotheaRubio R - Last Filed: 04/12/18 12:04> History of Present Illness - History of Present Illness History of Present Illness: PGY-2 heme/onc consult note for Dr Ruben Granado Mrs Granado is a 57 year old female with a PMHx history of breast cancer, severe COPD, anxiety, pneumonia, pleural effusions, CKD, xanax abuse, hx of non- compliance, hx of xanax/oxycodone overose, who presented to the ED in respiratory distress while on non-rebreather. Patient was then intubated while in ED due to lack of airway protection. She was admitted on 03/31/18 for similar symptoms and signed out AMA 04/10/18. Prior to that she was recently admitted 1 month ago for right-sided pleural effusion and was intubated at that time as well. Hematology/oncology has been consulted for anemia and hx of breast cancer. Patient this morning extubated on high flow oxygen - she was drowsy and unable to answer questions. Some of the history was collected from chart review. PMHx: Severe COPD, active smoker, Hx respiratory failure requiring intubation, Hx L breast cancer (Dx 2015) invasive ductal carcinoma, ER+/HER2+. Got 1 cycle of sandee-adjuvant chemo. After that, refuse chemo/surgery, DM (A1C 9.2, Jan 2018), HTN, CKD 3 with Anemia, requiring erythropoietin, Hx Enteroccus UTI, Hx Carmen esophagitis, Recent hosp (Jan 2018) Xanax/oxycodone OD, Non-compliance, Anxiety on xanax PSHx: Mastectomy, Bladder surgery, Spine surgery SocialHx: Lives at home with son, Hx drug overdose, active smoker Allergies: Levaquin, Nystatin FamHx: Denies Review of Systems - Review of Systems All systems: reviewed and no additional remarkable complaints except (as stated in HPI) Past Patient History - Infectious Disease Hx of Infectious Diseases: None - Tetanus Immunizations Tetanus Immunization: Unknown - Past Medical History & Family History Past Medical History?: Yes - Past Social History Smoking Status: Current Some Days Smoker - CARDIAC Hx Cardiac Disorders: Yes Hx Hypertension: Yes - PULMONARY Hx Respiratory Disorders: Yes (CURRENTLY SMOKES 2 PPD CIGARETTES) Hx Chronic Obstructive Pulmonary Disease (COPD): Yes Hx Pneumonia: Yes - NEUROLOGICAL Hx Neurological Disorder: Yes - HEENT Hx HEENT Problems: Yes Hx Cataracts: Yes - RENAL Hx Chronic Kidney Disease: Yes (BLADDER TUMOR) - ENDOCRINE/METABOLIC Hx Endocrine Disorders: Yes Hx Diabetes Mellitus Type 2: Yes - HEMATOLOGICAL/ONCOLOGICAL Hx Blood Disorders: Yes (blood transfusion) Hx Anemia: Yes (BLOOD TRANSFUSION) Hx Cancer: Yes (left breast dx 06/2015) Hx Chemotherapy: Yes (2016 as per son) - INTEGUMENTARY Hx Dermatological Problems: Yes Other/Comment: 04-11-18 MULTIPLE BRUISING TO UPPER AND LE,ABDOMEN.BILATERAL LEG EDEMA +3 PITTING.STASIS ULCER LE. BURN TO FACE AND HEAD. - MUSCULOSKELETAL/RHEUMATOLOGICAL Hx Musculoskeletal Disorders: Yes Hx Falls: Yes Hx Unsteady Gait: Yes - GASTROINTESTINAL Hx Gastrointestinal Disorders: Yes (INGUINAL HERNIA REPAIR) - GENITOURINARY/GYNECOLOGICAL Hx Genitourinary Disorders: No - PSYCHIATRIC Hx Psychophysiologic Disorder: Yes Hx Anxiety: Yes Hx Depression: Yes Hx Substance Use: No (UNKNOWN) - SURGICAL HISTORY Hx Surgeries: Yes - ANESTHESIA Hx Anesthesia: Yes Hx Anesthesia Reactions: No Hx Malignant Hyperthermia: No Meds Allergies/Adverse Reactions: Allergies Allergy/AdvReac Type Severity Reaction Status Date / Time levofloxacin [From Levaquin] Allergy SHORTNESS Verified 04/11/18 14:31 OF BREATH;PARANOID nystatin Allergy SWELLING Verified 04/11/18 14:31 - Medications Medications: Current Medications Albuterol/Ipratropium (Duoneb 3 Mg/0.5 Mg (3 Ml) Ud) 3 ml IH Q2H PRN PRN Reason: Shortness of Breath Last Admin: 04/12/18 07:21 Dose: 3 ml Aspirin (Aspirin Chewable) 81 mg PO DAILY [facility] Last Admin: 04/12/18 09:58 Dose: 81 mg Atorvastatin Calcium (Lipitor) 40 mg PO DAILY [facility] Last Admin: 04/12/18 09:58 Dose: 40 mg Ergocalciferol (Drisdol 50,000 Intl Units Cap) 1 cap PO Q7D [facility] Last Admin: 04/11/18 16:07 Dose: Not Given Heparin Sodium (Porcine) (Heparin) 5,000 units SC Q8H [facility]; Protocol Last Admin: 04/12/18 05:55 Dose: 5,000 units Fentanyl Citrate (Fentanyl Citrate/Sodium Chloride 1 Mg/100 Ml) 1,000 mcg in 100 mls @ 2 mls/hr IV .Q24H PRN; Protocol PRN Reason: TITRATE PER MD ORDER Last Titration: 04/12/18 07:00 Dose: 0 mcg/hr, 0 mls/hr Midazolam 100 mg/100ml in NS (Midazolam 100 Mg/100ml In Ns) 100 mg in 100 mls @ 1 mls/hr IV .Q24H PRN; Protocol PRN Reason: Sedation Last Titration: 04/12/18 09:09 Dose: 0 mg/hr, 0 mls/hr Cefepime HCl (Maxipime 1gm) 1 gm in 100 mls @ 100 mls/hr IVPB Q8 [facility]; Protocol Last Admin: 04/12/18 05:56 Dose: 100 mls/hr Insulin Human Regular (Humulin R Med) 0 units SC Q4 [facility]; Protocol Last Admin: 04/12/18 08:07 Dose: 1 unit Methylprednisolone (Solu-Medrol) 20 mg IVP Q8H [facility] Last Admin: 04/12/18 09:04 Dose: 20 mg Metoprolol Tartrate (Lopressor) 25 mg PO BID [facility] Nicotine (Nicoderm Cq) 1 patch TD DAILY [facility] Last Admin: 04/12/18 09:01 Dose: 1 patch Pantoprazole Sodium (Protonix Inj) 40 mg IVP DAILY [facility] Last Admin: 04/12/18 09:01 Dose: 40 mg Physical Exam - Additional Findings Additional findings: - Constitutional Appears: No Acute Distress, Older Than Stated Age - Head Exam Head Exam: ATRAUMATIC, NORMAL INSPECTION - Eye Exam Eye Exam: EOMI, Normal appearance, PERRL. absent: Scleral icterus - ENT Exam ENT Exam: Mucous Membranes Moist - Respiratory Exam Respiratory Exam: Decreased Breath Sounds, Rales Additional comments: rales R>L - Cardiovascular Exam Cardiovascular Exam: Tachycardia, REGULAR RHYTHM, +S1, +S2. absent: JVD - GI/Abdominal Exam GI & Abdominal Exam: Normal Bowel Sounds, Soft. absent: Tenderness - Extremities Exam Extremities exam: Positive for: normal capillary refill, normal inspection, pedal pulses present - Neurological Exam Neurological exam: Alert, Oriented x3 - Psychiatric Exam Psychiatric exam: Anxious - Skin Skin Exam: Normal Color, Warm Results - Vital Signs Recent Vital Signs: Last Vital Signs Temp 98.4 F 04/12/18 07:24 Pulse 104 H 04/12/18 10:00 Resp 20 04/12/18 08:42 BP 132/46 L 04/12/18 08:00 Pulse Ox 98 04/12/18 08:10 - Labs Result Diagrams: 04/12/18 08:00 04/12/18 06:15 Labs: Laboratory Results - last 24 hr 04/11/18 04/11/18 04/11/18 12:25 12:25 12:25 WBC 10.7 D RBC 2.59 L Hgb 7.3 L Hct 25.5 L MCV 98.5 MCH 28.2 MCHC 28.6 L RDW 20.4 H Plt Count 234 MPV 11.3 H Gran % 86.3 H Lymph % (Auto) 7.6 L [place] % (Auto) 5.9 Eos % (Auto) 0.1 L Baso % (Auto) 0.1 Gran # 9.26 H Lymph # (Auto) 0.8 L [place] # (Auto) 0.6 Eos # (Auto) 0.0 Baso # (Auto) 0.01 Neutrophils % (Manual) Lymphocytes % (Manual) Monocytes % (Manual) Platelet Evaluation Large Platelets Retic Count PT 11.9 INR 1.05 APTT 25.3 L pCO2 pO2 HCO3 ABG pH ABG Total CO2 ABG O2 Saturation ABG O2 Content ABG Base Excess ABG Hemoglobin ABG Carboxyhemoglobin POC ABG HHb (Measured) ABG Methemoglobin ABG O2 Capacity ABG Potassium Hgb O2 Saturation Glucose Lactate FiO2 Crit Value Called To Crit Value Called By Blood Gas Notified Time Sodium 145 Potassium 4.0 Chloride 103 Carbon Dioxide 39 H Anion Gap 7 L BUN 110 H Creatinine 2.5 H Est GFR ( Amer) 24 Est GFR (Non-Af Amer) 20 POC Glucose (mg/dL) Random Glucose 375 H* D Calcium 9.1 Phosphorus 3.9 Magnesium 2.5 H Total Bilirubin 0.4 AST 30 ALT 68 H Alkaline Phosphatase 74 Total Creatine Kinase 53 Troponin I 0.08 D NT-Pro-B Natriuret Pep 7140 H Total Protein 5.8 Albumin 3.4 Globulin 2.4 Albumin/Globulin Ratio 1.4 Procalcitonin Arterial Blood Potassium Urine Color Urine Appearance Urine pH Ur Specific [place] Urine Protein Urine Glucose (UA) Urine Ketones Urine Blood Urine Nitrate Urine Bilirubin Urine Urobilinogen Ur Leukocyte Esterase Urine RBC Urine WBC Ur Epithelial Cells Urine Bacteria Urine Other Influenza Typ A,B (EIA) Ur L.pneumophila Ag Blood Type Antibody Screen Crossmatch BBK History Checked 04/11/18 04/11/18 04/11/18 12:30 12:45 12:45 WBC RBC Hgb Hct MCV MCH MCHC RDW Plt Count MPV Gran % Lymph % (Auto) [place] % (Auto) Eos % (Auto) Baso % (Auto) Gran # Lymph # (Auto) [place] # (Auto) Eos # (Auto) Baso # (Auto) Neutrophils % (Manual) Lymphocytes % (Manual) Monocytes % (Manual) Platelet Evaluation Large Platelets Retic Count PT INR APTT pCO2 100 H* pO2 385.0 H HCO3 40.9 H* ABG pH 7.22 L ABG Total CO2 44.0 H ABG O2 Saturation 100.6 H ABG O2 Content ABG Base Excess 9.1 H ABG Hemoglobin ABG Carboxyhemoglobin POC ABG HHb (Measured) ABG Methemoglobin ABG O2 Capacity ABG Potassium 3.8 Hgb O2 Saturation Glucose 372 H Lactate 0.5 L FiO2 100.0 Crit Value Called To reggie Shirley Crit Value Called By Lauren Blood Gas Notified Time 1242 Sodium 147.0 Potassium Chloride 110.0 H Carbon Dioxide Anion Gap BUN Creatinine Est GFR ( Amer) Est GFR (Non-Af Amer) POC Glucose (mg/dL) Random Glucose Calcium Phosphorus Magnesium Total Bilirubin AST ALT Alkaline Phosphatase Total Creatine Kinase Troponin I NT-Pro-B Natriuret Pep Total Protein Albumin Globulin Albumin/Globulin Ratio Procalcitonin Arterial Blood Potassium 3.8 Urine Color Light yellow Urine Appearance Sl cloudy Urine pH 6.0 Ur Specific [place] 1.020 Urine Protein 30 H Urine Glucose (UA) 100 H Urine Ketones Negative Urine Blood Trace-intact H Urine Nitrate Negative Urine Bilirubin Negative Urine Urobilinogen 0.2 Ur Leukocyte Esterase Small H Urine RBC 0 - 2 Urine WBC 5 - 10 H Ur Epithelial Cells 0 - 2 Urine Bacteria Few Urine Other Uyeast Influenza Typ A,B (EIA) Negative for flu a/b Ur L.pneumophila Ag Blood Type Antibody Screen Crossmatch BBK History Checked 04/11/18 04/11/18 04/11/18 13:00 13:55 14:00 WBC RBC Hgb Hct MCV MCH MCHC RDW Plt Count MPV Gran % Lymph % (Auto) [place] % (Auto) Eos % (Auto) Baso % (Auto) Gran # Lymph # (Auto) [place] # (Auto) Eos # (Auto) Baso # (Auto) Neutrophils % (Manual) Lymphocytes % (Manual) Monocytes % (Manual) Platelet Evaluation Large Platelets Retic Count 2.07 H PT INR APTT pCO2 58 H pO2 67.0 L HCO3 38.5 H ABG pH 7.43 ABG Total CO2 40.3 H ABG O2 Saturation 98.3 H ABG O2 Content 9.2 L ABG Base Excess 12.8 H ABG Hemoglobin 7.2 L ABG Carboxyhemoglobin 7.4 H POC ABG HHb (Measured) 1.6 ABG Methemoglobin 0.7 ABG O2 Capacity 9.4 L ABG Potassium Hgb O2 Saturation 90.3 L Glucose Lactate FiO2 40.0 Crit Value Called To Crit Value Called By Blood Gas Notified Time Sodium Potassium Chloride Carbon Dioxide Anion Gap BUN Creatinine Est GFR ( Amer) Est GFR (Non-Af Amer) POC Glucose (mg/dL) Random Glucose Calcium Phosphorus Magnesium Total Bilirubin AST ALT Alkaline Phosphatase Total Creatine Kinase Troponin I NT-Pro-B Natriuret Pep Total Protein Albumin Globulin Albumin/Globulin Ratio Procalcitonin 0.55 H Arterial Blood Potassium Urine Color Urine Appearance Urine pH Ur Specific [place] Urine Protein Urine Glucose (UA) Urine Ketones Urine Blood Urine Nitrate Urine Bilirubin Urine Urobilinogen Ur Leukocyte Esterase Urine RBC Urine WBC Ur Epithelial Cells Urine Bacteria Urine Other Influenza Typ A,B (EIA) Ur L.pneumophila Ag Blood Type Antibody Screen Crossmatch BBK History Checked 04/11/18 04/11/18 04/11/18 15:00 15:15 15:56 WBC RBC Hgb Hct MCV MCH MCHC RDW Plt Count MPV Gran % Lymph % (Auto) [place] % (Auto) Eos % (Auto) Baso % (Auto) Gran # Lymph # (Auto) [place] # (Auto) Eos # (Auto) Baso # (Auto) Neutrophils % (Manual) Lymphocytes % (Manual) Monocytes % (Manual) Platelet Evaluation Large Platelets Retic Count PT INR APTT pCO2 pO2 HCO3 ABG pH ABG Total CO2 ABG O2 Saturation ABG O2 Content ABG Base Excess ABG Hemoglobin ABG Carboxyhemoglobin POC ABG HHb (Measured) ABG Methemoglobin ABG O2 Capacity ABG Potassium Hgb O2 Saturation Glucose Lactate FiO2 Crit Value Called To Crit Value Called By Blood Gas Notified Time Sodium Potassium Chloride Carbon Dioxide Anion Gap BUN Creatinine Est GFR ( Amer) Est GFR (Non-Af Amer) POC Glucose (mg/dL) 402 H* 384 H Random Glucose Calcium Phosphorus Magnesium Total Bilirubin AST ALT Alkaline Phosphatase Total Creatine Kinase Troponin I NT-Pro-B Natriuret Pep Total Protein Albumin Globulin Albumin/Globulin Ratio Procalcitonin Arterial Blood Potassium Urine Color Urine Appearance Urine pH Ur Specific [place] Urine Protein Urine Glucose (UA) Urine Ketones Urine Blood Urine Nitrate Urine Bilirubin Urine Urobilinogen Ur Leukocyte Esterase Urine RBC Urine WBC Ur Epithelial Cells Urine Bacteria Urine Other Influenza Typ A,B (EIA) Ur L.pneumophila Ag Negative Blood Type Antibody Screen Crossmatch BBK History Checked 04/11/18 04/11/18 04/12/18 20:03 23:59 04:18 WBC RBC Hgb Hct MCV MCH MCHC RDW Plt Count MPV Gran % Lymph % (Auto) [place] % (Auto) Eos % (Auto) Baso % (Auto) Gran # Lymph # (Auto) [place] # (Auto) Eos # (Auto) Baso # (Auto) Neutrophils % (Manual) Lymphocytes % (Manual) Monocytes % (Manual) Platelet Evaluation Large Platelets Retic Count PT INR APTT pCO2 pO2 HCO3 ABG pH ABG Total CO2 ABG O2 Saturation ABG O2 Content ABG Base Excess ABG Hemoglobin ABG Carboxyhemoglobin POC ABG HHb (Measured) ABG Methemoglobin ABG O2 Capacity ABG Potassium Hgb O2 Saturation Glucose Lactate FiO2 Crit Value Called To Crit Value Called By Blood Gas Notified Time Sodium Potassium Chloride Carbon Dioxide Anion Gap BUN Creatinine Est GFR ( Amer) Est GFR (Non-Af Amer) POC Glucose (mg/dL) 227 H 153 H 183 H Random Glucose Calcium Phosphorus Magnesium Total Bilirubin AST ALT Alkaline Phosphatase Total Creatine Kinase Troponin I NT-Pro-B Natriuret Pep Total Protein Albumin Globulin Albumin/Globulin Ratio Procalcitonin Arterial Blood Potassium Urine Color Urine Appearance Urine pH Ur Specific [place] Urine Protein Urine Glucose (UA) Urine Ketones Urine Blood Urine Nitrate Urine Bilirubin Urine Urobilinogen Ur Leukocyte Esterase Urine RBC Urine WBC Ur Epithelial Cells Urine Bacteria Urine Other Influenza Typ A,B (EIA) Ur L.pneumophila Ag Blood Type Antibody Screen Crossmatch BBK History Checked 04/12/18 04/12/18 04/12/18 05:00 06:15 06:15 WBC 7.8 D RBC 2.36 L Hgb 6.6 L* Hct 22.7 L MCV 96.2 MCH 28.0 MCHC 29.1 L RDW 21.1 H Plt Count 234 MPV 11.1 H Gran % Lymph % (Auto) [place] % (Auto) Eos % (Auto) Baso % (Auto) Gran # Lymph # (Auto) [place] # (Auto) Eos # (Auto) Baso # (Auto) Neutrophils % (Manual) Lymphocytes % (Manual) Monocytes % (Manual) Platelet Evaluation Large Platelets Retic Count PT INR APTT pCO2 45 pO2 72.0 L HCO3 36.7 H ABG pH 7.52 H ABG Total CO2 38.1 H ABG O2 Saturation 98.8 H ABG O2 Content 8.9 L ABG Base Excess 12.7 H ABG Hemoglobin 6.5 L ABG Carboxyhemoglobin 2.0 H POC ABG HHb (Measured) 1.2 ABG Methemoglobin 1.1 ABG O2 Capacity 9.0 L ABG Potassium Hgb O2 Saturation 95.8 Glucose Lactate FiO2 40.0 Crit Value Called To Crit Value Called By Blood Gas Notified Time Sodium 147 Potassium 4.0 Chloride 108 H Carbon Dioxide 35 H Anion Gap 8 L BUN 106 H Creatinine 2.5 H Est GFR ( Amer) 24 Est GFR (Non-Af Amer) 20 POC Glucose (mg/dL) Random Glucose 156 H Calcium 8.9 Phosphorus Magnesium Total Bilirubin 0.6 AST 30 ALT 55 Alkaline Phosphatase 62 Total Creatine Kinase Troponin I NT-Pro-B Natriuret Pep Total Protein 5.2 L Albumin 3.0 Globulin 2.2 Albumin/Globulin Ratio 1.4 Procalcitonin Arterial Blood Potassium Urine Color Urine Appearance Urine pH Ur Specific [place] Urine Protein Urine Glucose (UA) Urine Ketones Urine Blood Urine Nitrate Urine Bilirubin Urine Urobilinogen Ur Leukocyte Esterase Urine RBC Urine WBC Ur Epithelial Cells Urine Bacteria Urine Other Influenza Typ A,B (EIA) Ur L.pneumophila Ag Blood Type Antibody Screen Crossmatch BBK History Checked 04/12/18 04/12/18 04/12/18 08:00 08:00 08:21 WBC 10.3 D RBC 2.57 L Hgb 7.2 L Hct 24.5 L MCV 95.3 MCH 28.0 MCHC 29.4 L RDW 21.1 H Plt Count 222 MPV 10.5 Gran % 93.8 H Lymph % (Auto) 3.8 L [place] % (Auto) 2.4 Eos % (Auto) 0.0 L Baso % (Auto) 0.0 Gran # 9.68 H Lymph # (Auto) 0.4 L [place] # (Auto) 0.3 Eos # (Auto) 0.0 Baso # (Auto) 0.00 Neutrophils % (Manual) 91 H Lymphocytes % (Manual) 8 L Monocytes % (Manual) 1 Platelet Evaluation Normal Large Platelets Present Retic Count PT INR APTT pCO2 55 H pO2 69.0 L HCO3 36.5 H ABG pH 7.43 ABG Total CO2 38.2 H ABG O2 Saturation 97.7 ABG O2 Content 9.3 L ABG Base Excess 11.0 H ABG Hemoglobin 6.9 L ABG Carboxyhemoglobin 2.1 H POC ABG HHb (Measured) 2.2 ABG Methemoglobin 1.2 ABG O2 Capacity 9.5 L ABG Potassium Hgb O2 Saturation 94.5 L Glucose Lactate FiO2 40.0 Crit Value Called To Crit Value Called By Blood Gas Notified Time Sodium Potassium Chloride Carbon Dioxide Anion Gap BUN Creatinine Est GFR ( Amer) Est GFR (Non-Af Amer) POC Glucose (mg/dL) Random Glucose Calcium Phosphorus Magnesium Total Bilirubin AST ALT Alkaline Phosphatase Total Creatine Kinase Troponin I NT-Pro-B Natriuret Pep Total Protein Albumin Globulin Albumin/Globulin Ratio Procalcitonin Arterial Blood Potassium Urine Color Urine Appearance Urine pH Ur Specific [place] Urine Protein Urine Glucose (UA) Urine Ketones Urine Blood Urine Nitrate Urine Bilirubin Urine Urobilinogen Ur Leukocyte Esterase Urine RBC Urine WBC Ur Epithelial Cells Urine Bacteria Urine Other Influenza Typ A,B (EIA) Ur L.pneumophila Ag Blood Type B POSITIVE Antibody Screen Negative Crossmatch See Detail BBK History Checked Patient has bt Assessment & Plan - Assessment and Plan (Free Text) Plan: Mrs Granado is a 57 year old female with a PMHx history of breast cancer, severe COPD, anxiety, pneumonia, pleural effusions, CKD, xanax abuse, hx of non- compliance, hx of xanax/oxycodone overose, who presented to the ED in respira tory distress while on non-rebreather. Patient was then intubated while in ED due to lack of airway protection. Hematology/oncology has been consulted for anemia and her hx of left-sided breast cancer. Anemia -likely anemia of chronic disease 2/2 to ckd -Hgb on admission: 7.3 -> today 7.2 * chronically anemic since 02/2017 -recent admission 03/31/18 there were orders for iron studies, retic count, peripheral smear, B12, folate * retic count: 1.72, B12: 476, folate: 17, iron: 44, TIBC 213, %sat: 21, ferritin: 206, MCV: 96, LDH: 561 -has received erythropoetin in the past for anemia due to renal disease * CKD 3 and now with DAHLIA -recent admission 03/31/18 there were orders for epo level, immunofixation, spep, LDH * epo 22.8 (mildly high) * ABDIRIZAK and SPEP -> selective protein loss pattern, suggestive of nephrotic syndrome -1 dose of darbapoetin 40mcg ivp on 04/06/18 - we will continue to this once a week -ferrous gluconate 324mg po qd now discontinued -recommend darbapoetin injections outpatient Hx L breast cancer (Dx 2016) invasive ductal carcinoma -ER+/HER2+ -Got 1 cycle of sandee-adjuvant chemo. After that, refuse chemo/surgery. -CT chest w/o contrast showed lymphadenopathy suspicious for tumor * etiology could be malignancy, infectious, inflammatory * repeat CT 1 month after current episode has resolved Seen and discussed with Dr Gleason <Melanie Gleason - Last Filed: 04/20/18 22:20> Meds - Medications Medications: Current Medications Albuterol Sulfate (Albuterol 0.083% Inhal [place]vie (2.5 Mg/3 Ml) Ud) 2.5 mg INH [id number] [facility] Last Admin: 04/20/18 13:45 Dose: 2.5 mg Albuterol/Ipratropium (Duoneb 3 Mg/0.5 Mg (3 Ml) Ud) 3 ml IH Q2H PRN PRN Reason: Shortness of Breath Last Admin: 04/19/18 15:34 Dose: 3 ml Arformoterol Tartrate (Brovana) 15 mcg IH [id number] [facility] Last Admin: 04/20/18 07:55 Dose: Not Given Aspirin (Aspirin Chewable) 81 mg PO DAILY [facility] Last Admin: 04/20/18 09:08 Dose: 81 mg Atorvastatin Calcium (Lipitor) 40 mg PO DAILY [facility] Last Admin: 04/20/18 09:08 Dose: 40 mg Bacitracin (Bacitracin) 0 gm TOP BID [facility] Last Admin: 04/20/18 17:27 Dose: 1 applic Benzocaine/Menthol (Cepacol Sore Throat) 1 vy MT Q4H PRN PRN Reason: Sore Throat Last Admin: 04/20/18 21:49 Dose: 1 vy Budesonide (Pulmicort Respules) 0.5 mg IH [id number] [facility] Last Admin: 04/20/18 07:55 Dose: Not Given Dextrose (Dextrose 50% Inj) 0 ml IV STAT PRN; Protocol PRN Reason: Hypoglycemia Protocol Ergocalciferol (Drisdol 50,000 Intl Units Cap) 1 cap PO Q7D [facility] Last Admin: 04/18/18 17:45 Dose: 1 cap Ferrous Gluconate (Fergon) 324 mg PO DAILY [facility] Furosemide (Lasix) 40 mg IVP DAILY [facility] Last Admin: 04/20/18 09:13 Dose: 40 mg Heparin Sodium (Porcine) (Heparin) 5,000 units SC Q8 [facility]; Protocol Last Admin: 04/20/18 21:50 Dose: 5,000 units Dextrose (Dextrose 5% In Water 1000 Ml) 1,000 mls @ 0 mls/hr IV .Q0M PRN; Protocol PRN Reason: Hypoglycemia Protocol Insulin Detemir (Levemir) 10 unit SC HS [facility] Last Admin: 04/20/18 21:50 Dose: 10 units Insulin Human Lispro (Humalog Low) 0 units SC ACHS [facility]; Protocol Last Admin: 04/20/18 21:50 Dose: 4 units Metoprolol Tartrate (Lopressor) 25 mg PO BID [facility] Last Admin: 04/20/18 17:22 Dose: 25 mg Nicotine (Nicoderm Cq) 1 patch TD DAILY [facility] Last Admin: 04/20/18 09:14 Dose: 1 patch Pantoprazole Sodium (Protonix Ec Tab) 40 mg PO ACB [facility] Last Admin: 04/20/18 09:09 Dose: 40 mg Paroxetine HCl (Paxil) 5 mg PO HS [facility] Last Admin: 04/20/18 21:48 Dose: 5 mg Prednisone (Prednisone Tab) 40 mg PO DAILY [facility] Last Admin: 04/20/18 09:09 Dose: 40 mg Vitamin B Complex/Vit C/Folic Acid (Nephro-Enrrique) 1 tab PO 0800 [facility] Last Admin: 04/20/18 09:08 Dose: 1 tab Results - Vital Signs Recent Vital Signs: Last Vital Signs Temp 98.1 F 04/20/18 21:37 Pulse 93 H 04/20/18 21:37 Resp 18 04/20/18 21:37 BP 147/54 L 04/20/18 21:37 Pulse Ox 96 04/20/18 21:37 - Labs Result Diagrams: 04/20/18 07:20 04/20/18 07:20 Labs: Laboratory Results - last 24 hr 04/20/18 04/20/18 04/20/18 06:01 07:20 07:20 WBC 6.2 D RBC 3.05 L Hgb 8.7 L Hct 28.8 L MCV 94.4 MCH 28.5 MCHC 30.2 L RDW 18.8 H Plt Count 91 L MPV 11.2 H Neut % (Auto) 84.9 H Lymph % (Auto) 10.7 L [place] % (Auto) 4.2 Eos % (Auto) 0.2 L Baso % (Auto) 0.0 Lymph # (Auto) 0.7 L [place] # (Auto) 0.3 Eos # (Auto) 0.0 Baso # (Auto) 0.00 Absolute Neuts (auto) 5.30 Sodium 140 Potassium 3.6 Chloride 98 Carbon Dioxide 39 H Anion Gap 6 L BUN 72 H Creatinine 1.9 H Est GFR ( Amer) 33 Est GFR (Non-Af Amer) 27 POC Glucose (mg/dL) 308 H Random Glucose 278 H Calcium 7.0 L Total Bilirubin 0.5 AST 18 ALT 64 H Alkaline Phosphatase 77 Total Protein 5.4 L Albumin 2.9 L Globulin 2.5 Albumin/Globulin Ratio 1.2 04/20/18 04/20/18 04/20/18 11:23 16:07 21:27 WBC RBC Hgb Hct MCV MCH MCHC RDW Plt Count MPV Neut % (Auto) Lymph % (Auto) [place] % (Auto) Eos % (Auto) Baso % (Auto) Lymph # (Auto) [place] # (Auto) Eos # (Auto) Baso # (Auto) Absolute Neuts (auto) Sodium Potassium Chloride Carbon Dioxide Anion Gap BUN Creatinine Est GFR ( Amer) Est GFR (Non-Af Amer) POC Glucose (mg/dL) 244 H 382 H 440 H* Random Glucose Calcium Total Bilirubin AST ALT Alkaline Phosphatase Total Protein Albumin Globulin Albumin/Globulin Ratio Attending/Attestation - Attestation I have personally seen and examined this patient.: Yes I have fully participated in the care of the patient.: Yes I have reviewed all pertinent clinical information: Yes
--- NOTE | 2018-04-12 13:26 | CP.PCM.CON ---
<Leonidas Guardado - Last Filed: 04/12/18 13:22> History of Present Illness - History of Present Illness History of Present Illness: Infectious disease consult note: 57 F with a PMHx history of breast cancer, severe COPD, anxiety, pneumonia, pleural effusions, CKD, xanax abuse, hx of non-compliance, hx of xanax/oxycodone overdose, who presented respiratory distress. Patient was here in the hospital yesterday being treated for sepsis and COPD (s/p intubation) when the patient signed out AMA. patient went home to smoke a cigarete when she became sob. Patient was then intubated while in ED due to for hypercapnic resp failure. ID consulted for cellulites, copd flare and sepsis. This am patient was extubated on high flow oxygen. 12 point ROS limited 2/2 s/p extubation PMHx: as above PSHx: Mastectomy, Bladder surgery, Spine surgery SocialHx: Lives at home with son, Hx drug overdose, active smoker Allergies: Levaquin, Nystatin FamHx: non contributory Review of Systems - Review of Systems All systems: reviewed and no additional remarkable complaints except Past Patient History - Infectious Disease Hx of Infectious Diseases: None - Tetanus Immunizations Tetanus Immunization: Unknown - Past Medical History & Family History Past Medical History?: Yes - Past Social History Smoking Status: Current Some Days Smoker - CARDIAC Hx Cardiac Disorders: Yes Hx Hypertension: Yes - PULMONARY Hx Respiratory Disorders: Yes (CURRENTLY SMOKES 2 PPD CIGARETTES) Hx Chronic Obstructive Pulmonary Disease (COPD): Yes Hx Pneumonia: Yes - NEUROLOGICAL Hx Neurological Disorder: Yes - HEENT Hx HEENT Problems: Yes Hx Cataracts: Yes - RENAL Hx Chronic Kidney Disease: Yes (BLADDER TUMOR) - ENDOCRINE/METABOLIC Hx Endocrine Disorders: Yes Hx Diabetes Mellitus Type 2: Yes - HEMATOLOGICAL/ONCOLOGICAL Hx Blood Disorders: Yes (blood transfusion) Hx Anemia: Yes (BLOOD TRANSFUSION) Hx Cancer: Yes (left breast dx 06/2015) Hx Chemotherapy: Yes (2016 as per son) - INTEGUMENTARY Hx Dermatological Problems: Yes Other/Comment: 04-11-18 MULTIPLE BRUISING TO UPPER AND LE,ABDOMEN.BILATERAL LEG EDEMA +3 PITTING.STASIS ULCER LE. BURN TO FACE AND HEAD. - MUSCULOSKELETAL/RHEUMATOLOGICAL Hx Musculoskeletal Disorders: Yes Hx Falls: Yes Hx Unsteady Gait: Yes - GASTROINTESTINAL Hx Gastrointestinal Disorders: Yes (INGUINAL HERNIA REPAIR) - GENITOURINARY/GYNECOLOGICAL Hx Genitourinary Disorders: No - PSYCHIATRIC Hx Psychophysiologic Disorder: Yes Hx Anxiety: Yes Hx Depression: Yes Hx Substance Use: No (UNKNOWN) - SURGICAL HISTORY Hx Surgeries: Yes - ANESTHESIA Hx Anesthesia: Yes Hx Anesthesia Reactions: No Hx Malignant Hyperthermia: No Meds Allergies/Adverse Reactions: Allergies Allergy/AdvReac Type Severity Reaction Status Date / Time levofloxacin [From Levaquin] Allergy SHORTNESS Verified 04/11/18 14:31 OF BREATH;PARANOID nystatin Allergy SWELLING Verified 04/11/18 14:31 - Medications Medications: Current Medications Albuterol/Ipratropium (Duoneb 3 Mg/0.5 Mg (3 Ml) Ud) 3 ml IH Q2H PRN PRN Reason: Shortness of Breath Last Admin: 04/12/18 07:21 Dose: 3 ml Aspirin (Aspirin Chewable) 81 mg PO DAILY [facility] Last Admin: 04/12/18 09:58 Dose: 81 mg Atorvastatin Calcium (Lipitor) 40 mg PO DAILY [facility] Last Admin: 04/12/18 09:58 Dose: 40 mg Ergocalciferol (Drisdol 50,000 Intl Units Cap) 1 cap PO Q7D [facility] Last Admin: 04/11/18 16:07 Dose: Not Given Heparin Sodium (Porcine) (Heparin) 5,000 units SC Q8H [facility]; Protocol Last Admin: 04/12/18 05:55 Dose: 5,000 units Fentanyl Citrate (Fentanyl Citrate/Sodium Chloride 1 Mg/100 Ml) 1,000 mcg in 100 mls @ 2 mls/hr IV .Q24H PRN; Protocol PRN Reason: TITRATE PER MD ORDER Last Titration: 04/12/18 07:00 Dose: 0 mcg/hr, 0 mls/hr Midazolam 100 mg/100ml in NS (Midazolam 100 Mg/100ml In Ns) 100 mg in 100 mls @ 1 mls/hr IV .Q24H PRN; Protocol PRN Reason: Sedation Last Titration: 04/12/18 09:09 Dose: 0 mg/hr, 0 mls/hr Cefepime HCl (Maxipime 1gm) 1 gm in 100 mls @ 100 mls/hr IVPB Q8 [facility]; Protocol Last Admin: 04/12/18 05:56 Dose: 100 mls/hr Insulin Human Regular (Humulin R Med) 0 units SC Q4 [facility]; Protocol Last Admin: 04/12/18 12:58 Dose: 2 unit Methylprednisolone (Solu-Medrol) 20 mg IVP Q8H [facility] Last Admin: 04/12/18 09:04 Dose: 20 mg Metoprolol Tartrate (Lopressor) 25 mg PO BID [facility] Nicotine (Nicoderm Cq) 1 patch TD DAILY [facility] Last Admin: 04/12/18 09:01 Dose: 1 patch Pantoprazole Sodium (Protonix Inj) 40 mg IVP DAILY [facility] Last Admin: 04/12/18 09:01 Dose: 40 mg Physical Exam - Constitutional Appears: No Acute Distress - Head Exam Head Exam: ATRAUMATIC, NORMOCEPHALIC - Eye Exam Eye Exam: EOMI, PERRL - ENT Exam ENT Exam: Mucous Membranes Moist - Respiratory Exam Respiratory Exam: Clear to Auscultation Bilateral. absent: Rales, Wheezes - Cardiovascular Exam Cardiovascular Exam: REGULAR RHYTHM, RRR, +S1, +S2 - GI/Abdominal Exam GI & Abdominal Exam: Normal Bowel Sounds, Soft. absent: Tenderness - Extremities Exam Extremities exam: Negative for: calf tenderness, pedal edema - Neurological Exam Neurological exam: Alert, CN II-XII Intact, Oriented x3 - Psychiatric Exam Psychiatric exam: Normal Mood - Skin Skin Exam: Dry, Warm Results - Vital Signs Recent Vital Signs: Last Vital Signs Temp 98.4 F 04/12/18 07:24 Pulse 104 H 04/12/18 10:00 Resp 20 04/12/18 08:42 BP 145/60 04/12/18 12:57 Pulse Ox 98 04/12/18 08:10 - Labs Result Diagrams: 04/12/18 08:00 04/12/18 06:15 Labs: Laboratory Results - last 24 hr 04/11/18 04/11/18 04/11/18 12:25 13:00 13:55 WBC RBC Hgb Hct MCV MCH MCHC RDW Plt Count MPV Gran % Lymph % (Auto) [place] % (Auto) Eos % (Auto) Baso % (Auto) Gran # Lymph # (Auto) [place] # (Auto) Eos # (Auto) Baso # (Auto) Neutrophils % (Manual) Lymphocytes % (Manual) Monocytes % (Manual) Platelet Evaluation Large Platelets Retic Count 2.07 H pCO2 58 H pO2 67.0 L HCO3 38.5 H ABG pH 7.43 ABG Total CO2 40.3 H ABG O2 Saturation 98.3 H ABG O2 Content 9.2 L ABG Base Excess 12.8 H ABG Hemoglobin 7.2 L ABG Carboxyhemoglobin 7.4 H POC ABG HHb (Measured) 1.6 ABG Methemoglobin 0.7 ABG O2 Capacity 9.4 L Hgb O2 Saturation 90.3 L FiO2 40.0 Sodium 145 Potassium 4.0 Chloride 103 Carbon Dioxide 39 H Anion Gap 7 L BUN 110 H Creatinine 2.5 H Est GFR ( Amer) 24 Est GFR (Non-Af Amer) 20 POC Glucose (mg/dL) Random Glucose 375 H* D Calcium 9.1 Phosphorus 3.9 Magnesium 2.5 H Total Bilirubin 0.4 AST 30 ALT 68 H Alkaline Phosphatase 74 Total Creatine Kinase 53 Total Protein 5.8 Albumin 3.4 Globulin 2.4 Albumin/Globulin Ratio 1.4 Procalcitonin Ur L.pneumophila Ag Blood Type Antibody Screen Crossmatch BBK History Checked 04/11/18 04/11/18 04/11/18 14:00 15:00 15:15 WBC RBC Hgb Hct MCV MCH MCHC RDW Plt Count MPV Gran % Lymph % (Auto) [place] % (Auto) Eos % (Auto) Baso % (Auto) Gran # Lymph # (Auto) [place] # (Auto) Eos # (Auto) Baso # (Auto) Neutrophils % (Manual) Lymphocytes % (Manual) Monocytes % (Manual) Platelet Evaluation Large Platelets Retic Count pCO2 pO2 HCO3 ABG pH ABG Total CO2 ABG O2 Saturation ABG O2 Content ABG Base Excess ABG Hemoglobin ABG Carboxyhemoglobin POC ABG HHb (Measured) ABG Methemoglobin ABG O2 Capacity Hgb O2 Saturation FiO2 Sodium Potassium Chloride Carbon Dioxide Anion Gap BUN Creatinine Est GFR ( Amer) Est GFR (Non-Af Amer) POC Glucose (mg/dL) 402 H* Random Glucose Calcium Phosphorus Magnesium Total Bilirubin AST ALT Alkaline Phosphatase Total Creatine Kinase Total Protein Albumin Globulin Albumin/Globulin Ratio Procalcitonin 0.55 H Ur L.pneumophila Ag Negative Blood Type Antibody Screen Crossmatch BBK History Checked 04/11/18 04/11/18 04/11/18 15:56 20:03 23:59 WBC RBC Hgb Hct MCV MCH MCHC RDW Plt Count MPV Gran % Lymph % (Auto) [place] % (Auto) Eos % (Auto) Baso % (Auto) Gran # Lymph # (Auto) [place] # (Auto) Eos # (Auto) Baso # (Auto) Neutrophils % (Manual) Lymphocytes % (Manual) Monocytes % (Manual) Platelet Evaluation Large Platelets Retic Count pCO2 pO2 HCO3 ABG pH ABG Total CO2 ABG O2 Saturation ABG O2 Content ABG Base Excess ABG Hemoglobin ABG Carboxyhemoglobin POC ABG HHb (Measured) ABG Methemoglobin ABG O2 Capacity Hgb O2 Saturation FiO2 Sodium Potassium Chloride Carbon Dioxide Anion Gap BUN Creatinine Est GFR ( Amer) Est GFR (Non-Af Amer) POC Glucose (mg/dL) 384 H 227 H 153 H Random Glucose Calcium Phosphorus Magnesium Total Bilirubin AST ALT Alkaline Phosphatase Total Creatine Kinase Total Protein Albumin Globulin Albumin/Globulin Ratio Procalcitonin Ur L.pneumophila Ag Blood Type Antibody Screen Crossmatch BBK History Checked 04/12/18 04/12/18 04/12/18 04:18 05:00 06:15 WBC 7.8 D RBC 2.36 L Hgb 6.6 L* Hct 22.7 L MCV 96.2 MCH 28.0 MCHC 29.1 L RDW 21.1 H Plt Count 234 MPV 11.1 H Gran % Lymph % (Auto) [place] % (Auto) Eos % (Auto) Baso % (Auto) Gran # Lymph # (Auto) [place] # (Auto) Eos # (Auto) Baso # (Auto) Neutrophils % (Manual) Lymphocytes % (Manual) Monocytes % (Manual) Platelet Evaluation Large Platelets Retic Count pCO2 45 pO2 72.0 L HCO3 36.7 H ABG pH 7.52 H ABG Total CO2 38.1 H ABG O2 Saturation 98.8 H ABG O2 Content 8.9 L ABG Base Excess 12.7 H ABG Hemoglobin 6.5 L ABG Carboxyhemoglobin 2.0 H POC ABG HHb (Measured) 1.2 ABG Methemoglobin 1.1 ABG O2 Capacity 9.0 L Hgb O2 Saturation 95.8 FiO2 40.0 Sodium Potassium Chloride Carbon Dioxide Anion Gap BUN Creatinine Est GFR ( Amer) Est GFR (Non-Af Amer) POC Glucose (mg/dL) 183 H Random Glucose Calcium Phosphorus Magnesium Total Bilirubin AST ALT Alkaline Phosphatase Total Creatine Kinase Total Protein Albumin Globulin Albumin/Globulin Ratio Procalcitonin Ur L.pneumophila Ag Blood Type Antibody Screen Crossmatch BBK History Checked 04/12/18 04/12/18 04/12/18 06:15 07:30 08:00 WBC RBC Hgb Hct MCV MCH MCHC RDW Plt Count MPV Gran % Lymph % (Auto) [place] % (Auto) Eos % (Auto) Baso % (Auto) Gran # Lymph # (Auto) [place] # (Auto) Eos # (Auto) Baso # (Auto) Neutrophils % (Manual) Lymphocytes % (Manual) Monocytes % (Manual) Platelet Evaluation Large Platelets Retic Count pCO2 pO2 HCO3 ABG pH ABG Total CO2 ABG O2 Saturation ABG O2 Content ABG Base Excess ABG Hemoglobin ABG Carboxyhemoglobin POC ABG HHb (Measured) ABG Methemoglobin ABG O2 Capacity Hgb O2 Saturation FiO2 Sodium 147 Potassium 4.0 Chloride 108 H Carbon Dioxide 35 H Anion Gap 8 L BUN 106 H Creatinine 2.5 H Est GFR ( Amer) 24 Est GFR (Non-Af Amer) 20 POC Glucose (mg/dL) 180 H Random Glucose 156 H Calcium 8.9 Phosphorus Magnesium Total Bilirubin 0.6 AST 30 ALT 55 Alkaline Phosphatase 62 Total Creatine Kinase Total Protein 5.2 L Albumin 3.0 Globulin 2.2 Albumin/Globulin Ratio 1.4 Procalcitonin Ur L.pneumophila Ag Blood Type B POSITIVE Antibody Screen Negative Crossmatch See Detail BBK History Checked Patient has bt 04/12/18 04/12/18 04/12/18 08:00 08:21 11:25 WBC 10.3 D RBC 2.57 L Hgb 7.2 L Hct 24.5 L MCV 95.3 MCH 28.0 MCHC 29.4 L RDW 21.1 H Plt Count 222 MPV 10.5 Gran % 93.8 H Lymph % (Auto) 3.8 L [place] % (Auto) 2.4 Eos % (Auto) 0.0 L Baso % (Auto) 0.0 Gran # 9.68 H Lymph # (Auto) 0.4 L [place] # (Auto) 0.3 Eos # (Auto) 0.0 Baso # (Auto) 0.00 Neutrophils % (Manual) 91 H Lymphocytes % (Manual) 8 L Monocytes % (Manual) 1 Platelet Evaluation Normal Large Platelets Present Retic Count pCO2 55 H pO2 69.0 L HCO3 36.5 H ABG pH 7.43 ABG Total CO2 38.2 H ABG O2 Saturation 97.7 ABG O2 Content 9.3 L ABG Base Excess 11.0 H ABG Hemoglobin 6.9 L ABG Carboxyhemoglobin 2.1 H POC ABG HHb (Measured) 2.2 ABG Methemoglobin 1.2 ABG O2 Capacity 9.5 L Hgb O2 Saturation 94.5 L FiO2 40.0 Sodium Potassium Chloride Carbon Dioxide Anion Gap BUN Creatinine Est GFR ( Amer) Est GFR (Non-Af Amer) POC Glucose (mg/dL) 206 H Random Glucose Calcium Phosphorus Magnesium Total Bilirubin AST ALT Alkaline Phosphatase Total Creatine Kinase Total Protein Albumin Globulin Albumin/Globulin Ratio Procalcitonin Ur L.pneumophila Ag Blood Type Antibody Screen Crossmatch BBK History Checked Assessment & Plan - Assessment and Plan (Free Text) Assessment: 7 F with a PMHx history of breast cancer, severe COPD, anxiety, pneumonia, pleural effusions, CKD, xanax abuse, hx of non-compliance, hx of xanax/oxycodone overdose, who presented respiratory failure 2/2 pneumonia vs copd exacerbation now s/p extubation. - Vanc x 1 , and cont Cefepime - Awaiting cultures and septic work up - Chest CT - decrease in size of consolidation, - CXR showed RLL pneumonia - Procal 0.55 mildly elevated Case and plan was reviewed and discussed in detail with Dr Damon <Chung Damon - Last Filed: 04/12/18 15:08> Meds - Medications Medications: Current Medications Albuterol/Ipratropium (Duoneb 3 Mg/0.5 Mg (3 Ml) Ud) 3 ml IH Q2H PRN PRN Reason: Shortness of Breath Last Admin: 04/12/18 13:29 Dose: 3 ml Aspirin (Aspirin Chewable) 81 mg PO DAILY [facility] Last Admin: 04/12/18 09:58 Dose: 81 mg Atorvastatin Calcium (Lipitor) 40 mg PO DAILY [facility] Last Admin: 04/12/18 09:58 Dose: 40 mg Ergocalciferol (Drisdol 50,000 Intl Units Cap) 1 cap PO Q7D [facility] Last Admin: 04/11/18 16:07 Dose: Not Given Furosemide (Lasix) 40 mg IV ONCE ONE Stop: 04/12/18 17:01 Heparin Sodium (Porcine) (Heparin) 5,000 units SC Q8H [facility]; Protocol Last Admin: 04/12/18 05:55 Dose: 5,000 units Fentanyl Citrate (Fentanyl Citrate/Sodium Chloride 1 Mg/100 Ml) 1,000 mcg in 100 mls @ 2 mls/hr IV .Q24H PRN; Protocol PRN Reason: TITRATE PER MD ORDER Last Titration: 04/12/18 07:00 Dose: 0 mcg/hr, 0 mls/hr Midazolam 100 mg/100ml in NS (Midazolam 100 Mg/100ml In Ns) 100 mg in 100 mls @ 1 mls/hr IV .Q24H PRN; Protocol PRN Reason: Sedation Last Titration: 04/12/18 09:09 Dose: 0 mg/hr, 0 mls/hr Cefepime HCl (Maxipime 1gm) 1 gm in 100 mls @ 100 mls/hr IVPB Q8 [facility]; Protocol Last Admin: 04/12/18 05:56 Dose: 100 mls/hr Insulin Human Regular (Humulin R Med) 0 units SC Q4 [facility]; Protocol Last Admin: 04/12/18 12:58 Dose: 2 unit Methylprednisolone (Solu-Medrol) 20 mg IVP Q8H [facility] Last Admin: 04/12/18 09:04 Dose: 20 mg Metoprolol Tartrate (Lopressor) 25 mg PO BID [facility] Nicotine (Nicoderm Cq) 1 patch TD DAILY [facility] Last Admin: 04/12/18 09:01 Dose: 1 patch Pantoprazole Sodium (Protonix Inj) 40 mg IVP DAILY [facility] Last Admin: 04/12/18 09:01 Dose: 40 mg Results - Vital Signs Recent Vital Signs: Last Vital Signs Temp 98.4 F 04/12/18 07:24 Pulse 104 H 04/12/18 10:00 Resp 24 04/12/18 13:34 BP 145/60 04/12/18 12:57 Pulse Ox 98 04/12/18 08:10 - Labs Result Diagrams: 04/12/18 08:00 04/12/18 06:15 Labs: Laboratory Results - last 24 hr 04/11/18 04/11/18 04/11/18 13:00 14:00 15:00 WBC RBC Hgb Hct MCV MCH MCHC RDW Plt Count MPV Gran % Lymph % (Auto) [place] % (Auto) Eos % (Auto) Baso % (Auto) Gran # Lymph # (Auto) [place] # (Auto) Eos # (Auto) Baso # (Auto) Neutrophils % (Manual) Lymphocytes % (Manual) Monocytes % (Manual) Platelet Evaluation Large Platelets Retic Count 2.07 H pCO2 pO2 HCO3 ABG pH ABG Total CO2 ABG O2 Saturation ABG O2 Content ABG Base Excess ABG Hemoglobin ABG Carboxyhemoglobin POC ABG HHb (Measured) ABG Methemoglobin ABG O2 Capacity Hgb O2 Saturation FiO2 Sodium Potassium Chloride Carbon Dioxide Anion Gap BUN Creatinine Est GFR ( Amer) Est GFR (Non-Af Amer) POC Glucose (mg/dL) Random Glucose Calcium Total Bilirubin AST ALT Alkaline Phosphatase Total Protein Albumin Globulin Albumin/Globulin Ratio Procalcitonin 0.55 H Ur L.pneumophila Ag Negative Blood Type Antibody Screen Crossmatch BBK History Checked 04/11/18 04/11/18 04/11/18 15:15 15:56 20:03 WBC RBC Hgb Hct MCV MCH MCHC RDW Plt Count MPV Gran % Lymph % (Auto) [place] % (Auto) Eos % (Auto) Baso % (Auto) Gran # Lymph # (Auto) [place] # (Auto) Eos # (Auto) Baso # (Auto) Neutrophils % (Manual) Lymphocytes % (Manual) Monocytes % (Manual) Platelet Evaluation Large Platelets Retic Count pCO2 pO2 HCO3 ABG pH ABG Total CO2 ABG O2 Saturation ABG O2 Content ABG Base Excess ABG Hemoglobin ABG Carboxyhemoglobin POC ABG HHb (Measured) ABG Methemoglobin ABG O2 Capacity Hgb O2 Saturation FiO2 Sodium Potassium Chloride Carbon Dioxide Anion Gap BUN Creatinine Est GFR ( Amer) Est GFR (Non-Af Amer) POC Glucose (mg/dL) 402 H* 384 H 227 H Random Glucose Calcium Total Bilirubin AST ALT Alkaline Phosphatase Total Protein Albumin Globulin Albumin/Globulin Ratio Procalcitonin Ur L.pneumophila Ag Blood Type Antibody Screen Crossmatch BBK History Checked 04/11/18 04/12/18 04/12/18 23:59 04:18 05:00 WBC RBC Hgb Hct MCV MCH MCHC RDW Plt Count MPV Gran % Lymph % (Auto) [place] % (Auto) Eos % (Auto) Baso % (Auto) Gran # Lymph # (Auto) [place] # (Auto) Eos # (Auto) Baso # (Auto) Neutrophils % (Manual) Lymphocytes % (Manual) Monocytes % (Manual) Platelet Evaluation Large Platelets Retic Count pCO2 45 pO2 72.0 L HCO3 36.7 H ABG pH 7.52 H ABG Total CO2 38.1 H ABG O2 Saturation 98.8 H ABG O2 Content 8.9 L ABG Base Excess 12.7 H ABG Hemoglobin 6.5 L ABG Carboxyhemoglobin 2.0 H POC ABG HHb (Measured) 1.2 ABG Methemoglobin 1.1 ABG O2 Capacity 9.0 L Hgb O2 Saturation 95.8 FiO2 40.0 Sodium Potassium Chloride Carbon Dioxide Anion Gap BUN Creatinine Est GFR ( Amer) Est GFR (Non-Af Amer) POC Glucose (mg/dL) 153 H 183 H Random Glucose Calcium Total Bilirubin AST ALT Alkaline Phosphatase Total Protein Albumin Globulin Albumin/Globulin Ratio Procalcitonin Ur L.pneumophila Ag Blood Type Antibody Screen Crossmatch BBK History Checked 04/12/18 04/12/18 04/12/18 06:15 06:15 07:30 WBC 7.8 D RBC 2.36 L Hgb 6.6 L* Hct 22.7 L MCV 96.2 MCH 28.0 MCHC 29.1 L RDW 21.1 H Plt Count 234 MPV 11.1 H Gran % Lymph % (Auto) [place] % (Auto) Eos % (Auto) Baso % (Auto) Gran # Lymph # (Auto) [place] # (Auto) Eos # (Auto) Baso # (Auto) Neutrophils % (Manual) Lymphocytes % (Manual) Monocytes % (Manual) Platelet Evaluation Large Platelets Retic Count pCO2 pO2 HCO3 ABG pH ABG Total CO2 ABG O2 Saturation ABG O2 Content ABG Base Excess ABG Hemoglobin ABG Carboxyhemoglobin POC ABG HHb (Measured) ABG Methemoglobin ABG O2 Capacity Hgb O2 Saturation FiO2 Sodium 147 Potassium 4.0 Chloride 108 H Carbon Dioxide 35 H Anion Gap 8 L BUN 106 H Creatinine 2.5 H Est GFR ( Amer) 24 Est GFR (Non-Af Amer) 20 POC Glucose (mg/dL) 180 H Random Glucose 156 H Calcium 8.9 Total Bilirubin 0.6 AST 30 ALT 55 Alkaline Phosphatase 62 Total Protein 5.2 L Albumin 3.0 Globulin 2.2 Albumin/Globulin Ratio 1.4 Procalcitonin Ur L.pneumophila Ag Blood Type Antibody Screen Crossmatch BBK History Checked 04/12/18 04/12/18 04/12/18 08:00 08:00 08:21 WBC 10.3 D RBC 2.57 L Hgb 7.2 L Hct 24.5 L MCV 95.3 MCH 28.0 MCHC 29.4 L RDW 21.1 H Plt Count 222 MPV 10.5 Gran % 93.8 H Lymph % (Auto) 3.8 L [place] % (Auto) 2.4 Eos % (Auto) 0.0 L Baso % (Auto) 0.0 Gran # 9.68 H Lymph # (Auto) 0.4 L [place] # (Auto) 0.3 Eos # (Auto) 0.0 Baso # (Auto) 0.00 Neutrophils % (Manual) 91 H Lymphocytes % (Manual) 8 L Monocytes % (Manual) 1 Platelet Evaluation Normal Large Platelets Present Retic Count pCO2 55 H pO2 69.0 L HCO3 36.5 H ABG pH 7.43 ABG Total CO2 38.2 H ABG O2 Saturation 97.7 ABG O2 Content 9.3 L ABG Base Excess 11.0 H ABG Hemoglobin 6.9 L ABG Carboxyhemoglobin 2.1 H POC ABG HHb (Measured) 2.2 ABG Methemoglobin 1.2 ABG O2 Capacity 9.5 L Hgb O2 Saturation 94.5 L FiO2 40.0 Sodium Potassium Chloride Carbon Dioxide Anion Gap BUN Creatinine Est GFR ( Amer) Est GFR (Non-Af Amer) POC Glucose (mg/dL) Random Glucose Calcium Total Bilirubin AST ALT Alkaline Phosphatase Total Protein Albumin Globulin Albumin/Globulin Ratio Procalcitonin Ur L.pneumophila Ag Blood Type B POSITIVE Antibody Screen Negative Crossmatch See Detail BBK History Checked Patient has bt 04/12/18 11:25 WBC RBC Hgb Hct MCV MCH MCHC RDW Plt Count MPV Gran % Lymph % (Auto) [place] % (Auto) Eos % (Auto) Baso % (Auto) Gran # Lymph # (Auto) [place] # (Auto) Eos # (Auto) Baso # (Auto) Neutrophils % (Manual) Lymphocytes % (Manual) Monocytes % (Manual) Platelet Evaluation Large Platelets Retic Count pCO2 pO2 HCO3 ABG pH ABG Total CO2 ABG O2 Saturation ABG O2 Content ABG Base Excess ABG Hemoglobin ABG Carboxyhemoglobin POC ABG HHb (Measured) ABG Methemoglobin ABG O2 Capacity Hgb O2 Saturation FiO2 Sodium Potassium Chloride Carbon Dioxide Anion Gap BUN Creatinine Est GFR ( Amer) Est GFR (Non-Af Amer) POC Glucose (mg/dL) 206 H Random Glucose Calcium Total Bilirubin AST ALT Alkaline Phosphatase Total Protein Albumin Globulin Albumin/Globulin Ratio Procalcitonin Ur L.pneumophila Ag Blood Type Antibody Screen Crossmatch BBK History Checked Assessment & Plan - Assessment and Plan (Free Text) Assessment: Infectious diseases Attending Physician Attestation Patient seen and examined, discussed with director of medical education. I have reviewed the patient's history of present illness, past medical, social, personal and family histories, pertinent physical exam findings, course so far in this hospital admission, pertinent laboratory and imaging results. I agree with the above findings, assessment and plan. In addition, patient has been given a dose of IV Vancomycin and started on Cefepime for possible right sided HAP. Reviewed CT chest. Follow up PCT, cultures and will monitor clinically. Overall prognosis is poor.
--- NOTE | 2018-04-12 14:16 | CP.PCM.CON ---
History of Present Illness - History of Present Illness History of Present Illness: Nephrology Consultation Note: Assessment: stable DAHLIA likely ATN, non-oliguric: improving acute on chronc respi acidosis with respi failure with renal compensation rt lpleural effusion with chest wall mass ? 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 overall poor p rognosis, seen by palliative care Hypertension control with meds as ordered. Maintain hemodynamics stable. Avoid hypotension. Patient not on ACEI/ARB due to recent DAHLIA, hyperkalemic tendency Monitor Input/Output, daily weights and renal function with basic metabolic panel will defer use of [place] to heme/onc in view of her recent breast malignancy with concerns for mets. PRBC as needed once stable, start iron 325 mg TID, MVI and weekly Vit D supplement lytes as needed seen by cardio heme/onc and pulmonary keep I/O even Dose meds/antibiotics for reduced GFR. Avoid fleets enema/magnesium based la xatives. Avoid nephrotoxins/NSAIDs/ iodinated contrast (unless needed emergently) Glycemic control. pt need to stop smoking Further work up/management as per primary team Thanks for allowing me to participate in care of your patient. Will follow patient with you. Please call if any Qs. had d/w team Dr Marco Antonio Chatman Office: [phone] Chief Complaint; SOB Reason for consult: CKD 3, DAHLIA HPI: Pt is a 57 F with hx of diabetes Mellitus ( years), hypertension (years) COPD/asthma, active smoker, breast cancer s/p surgery 2 years ago but didn't complete treatment now with mets, anemia, CKD stage 3 with baseline cr 1.8 mg/dL and AKIs (peaked cr 4) admitted with acute respi distress hypercapnic respi failure and intubated/extubated, now seen for CKD management Denies OTC/herbal meds or NSAIDs No recent iodinated contrast exposure. No obvious episodes of low BP. pt was recently admitted for same and she signed out AMA. ROS: pt is a poor historian and overall hx is limited from her. SOB better. no chest pain Physical Examination: General Appearance: stable appearing. on o2 Vitals reviewed and noted as below Head; Atraumatic, normocephalic ENT: no ulcers no thrush. Tongue is midline. Oropharynx: no rash or ulcers. she is hard of hearing EYES: Pupils are equal, round and reactive to light accommodation. Eye muscles and extraocular movement intact. Sclera is anicteric. has some periorbital puffiness Neck; supple no lymphadenopathy, no thyromegaly or bruit Lungs: Improved respiratory rate/effort. Breath sounds reduced at base with b/l wheezing Heart: normal rate. s1s2 normal. No rub or gallop. Extremities: 1-2+ edema. No varicose veins Neurological: Patient is alert, awake and oriented to person, place and time. No focal deficit. Strength bilateral appropriate and equal Skin: Warm and dry. Normal turgor. No rash. Palpitation: Normal elasticity for age Abdomen: Abdomen is soft. Bowel sounds +. There is no abdominal tenderness, no guarding/rigidity no organomegaly Psych: lack insight and flat affect/mood MSK: no joint tenderness or swelling. Digits and nails normal, no deformity : kidney or bladder not palpable Labs/imaging reviewed. Past medical history, past surgical history, family history, social history, allergy reviewed and noted as below Family hx: no hx of CKD. Rest non-contributory renal imaging: b/l cysts echo normal LVEF TSAt 26% ferritin 45 Serum FLC assay WNL ABDIRIZAK neg PTH 154 Vit D 17 Past Patient History - Infectious Disease Hx of Infectious Diseases: None - Tetanus Immunizations Tetanus Immunization: Unknown - Past Medical History & Family History Past Medical History?: Yes - Past Social History Smoking Status: Current Some Days Smoker - CARDIAC Hx Cardiac Disorders: Yes Hx Hypertension: Yes - PULMONARY Hx Respiratory Disorders: Yes (CURRENTLY SMOKES 2 PPD CIGARETTES) Hx Chronic Obstructive Pulmonary Disease (COPD): Yes Hx Pneumonia: Yes - NEUROLOGICAL Hx Neurological Disorder: Yes - HEENT Hx HEENT Problems: Yes Hx Cataracts: Yes - RENAL Hx Chronic Kidney Disease: Yes (BLADDER TUMOR) - ENDOCRINE/METABOLIC Hx Endocrine Disorders: Yes Hx Diabetes Mellitus Type 2: Yes - HEMATOLOGICAL/ONCOLOGICAL Hx Blood Disorders: Yes (blood transfusion) Hx Anemia: Yes (BLOOD TRANSFUSION) Hx Cancer: Yes (left breast dx 06/2015) Hx Chemotherapy: Yes (2016 as per son) - INTEGUMENTARY Hx Dermatological Problems: Yes Other/Comment: 04-11-18 MULTIPLE BRUISING TO UPPER AND LE,ABDOMEN.BILATERAL LEG EDEMA +3 PITTING.STASIS ULCER LE. BURN TO FACE AND HEAD. - MUSCULOSKELETAL/RHEUMATOLOGICAL Hx Musculoskeletal Disorders: Yes Hx Falls: Yes Hx Unsteady Gait: Yes - GASTROINTESTINAL Hx Gastrointestinal Disorders: Yes (INGUINAL HERNIA REPAIR) - GENITOURINARY/GYNECOLOGICAL Hx Genitourinary Disorders: No - PSYCHIATRIC Hx Psychophysiologic Disorder: Yes Hx Anxiety: Yes Hx Depression: Yes Hx Substance Use: No (UNKNOWN) - SURGICAL HISTORY Hx Surgeries: Yes - ANESTHESIA Hx Anesthesia: Yes Hx Anesthesia Reactions: No Hx Malignant Hyperthermia: No Meds Allergies/Adverse Reactions: Allergies Allergy/AdvReac Type Severity Reaction Status Date / Time levofloxacin [From Levaquin] Allergy SHORTNESS Verified 04/11/18 14:31 OF BREATH;PARANOID nystatin Allergy SWELLING Verified 04/11/18 14:31 - Medications Medications: Current Medications Albuterol/Ipratropium (Duoneb 3 Mg/0.5 Mg (3 Ml) Ud) 3 ml IH Q2H PRN PRN Reason: Shortness of Breath Last Admin: 04/12/18 13:29 Dose: 3 ml Aspirin (Aspirin Chewable) 81 mg PO DAILY [facility] Last Admin: 04/12/18 09:58 Dose: 81 mg Atorvastatin Calcium (Lipitor) 40 mg PO DAILY [facility] Last Admin: 04/12/18 09:58 Dose: 40 mg Ergocalciferol (Drisdol 50,000 Intl Units Cap) 1 cap PO Q7D [facility] Last Admin: 04/11/18 16:07 Dose: Not Given Furosemide (Lasix) 40 mg IV ONCE ONE Stop: 04/12/18 17:01 Heparin Sodium (Porcine) (Heparin) 5,000 units SC Q8H [facility]; Protocol Last Admin: 04/12/18 05:55 Dose: 5,000 units Fentanyl Citrate (Fentanyl Citrate/Sodium Chloride 1 Mg/100 Ml) 1,000 mcg in 100 mls @ 2 mls/hr IV .Q24H PRN; Protocol PRN Reason: TITRATE PER MD ORDER Last Titration: 04/12/18 07:00 Dose: 0 mcg/hr, 0 mls/hr Midazolam 100 mg/100ml in NS (Midazolam 100 Mg/100ml In Ns) 100 mg in 100 mls @ 1 mls/hr IV .Q24H PRN; Protocol PRN Reason: Sedation Last Titration: 04/12/18 09:09 Dose: 0 mg/hr, 0 mls/hr Cefepime HCl (Maxipime 1gm) 1 gm in 100 mls @ 100 mls/hr IVPB Q8 [facility]; Protocol Last Admin: 04/12/18 05:56 Dose: 100 mls/hr Insulin Human Regular (Humulin R Med) 0 units SC Q4 [facility]; Protocol Last Admin: 04/12/18 12:58 Dose: 2 unit Methylprednisolone (Solu-Medrol) 20 mg IVP Q8H [facility] Last Admin: 04/12/18 09:04 Dose: 20 mg Metoprolol Tartrate (Lopressor) 25 mg PO BID [facility] Nicotine (Nicoderm Cq) 1 patch TD DAILY [facility] Last Admin: 04/12/18 09:01 Dose: 1 patch Pantoprazole Sodium (Protonix Inj) 40 mg IVP DAILY [facility] Last Admin: 04/12/18 09:01 Dose: 40 mg Results - Vital Signs Recent Vital Signs: Last Vital Signs Temp 98.4 F 04/12/18 07:24 Pulse 104 H 04/12/18 10:00 Resp 24 04/12/18 13:34 BP 145/60 04/12/18 12:57 Pulse Ox 98 04/12/18 08:10 - Labs Result Diagrams: 04/12/18 08:00 04/12/18 06:15 Labs: Laboratory Results - last 24 hr 04/11/18 04/11/18 04/11/18 13:00 14:00 15:00 WBC RBC Hgb Hct MCV MCH MCHC RDW Plt Count MPV Gran % Lymph % (Auto) [place] % (Auto) Eos % (Auto) Baso % (Auto) Gran # Lymph # (Auto) [place] # (Auto) Eos # (Auto) Baso # (Auto) Neutrophils % (Manual) Lymphocytes % (Manual) Monocytes % (Manual) Platelet Evaluation Large Platelets Retic Count 2.07 H pCO2 pO2 HCO3 ABG pH ABG Total CO2 ABG O2 Saturation ABG O2 Content ABG Base Excess ABG Hemoglobin ABG Carboxyhemoglobin POC ABG HHb (Measured) ABG Methemoglobin ABG O2 Capacity Hgb O2 Saturation FiO2 Sodium Potassium Chloride Carbon Dioxide Anion Gap BUN Creatinine Est GFR ( Amer) Est GFR (Non-Af Amer) POC Glucose (mg/dL) Random Glucose Calcium Total Bilirubin AST ALT Alkaline Phosphatase Total Protein Albumin Globulin Albumin/Globulin Ratio Procalcitonin 0.55 H Ur L.pneumophila Ag Negative Blood Type Antibody Screen Crossmatch BBK History Checked 04/11/18 04/11/18 04/11/18 15:15 15:56 20:03 WBC RBC Hgb Hct MCV MCH MCHC RDW Plt Count MPV Gran % Lymph % (Auto) [place] % (Auto) Eos % (Auto) Baso % (Auto) Gran # Lymph # (Auto) [place] # (Auto) Eos # (Auto) Baso # (Auto) Neutrophils % (Manual) Lymphocytes % (Manual) Monocytes % (Manual) Platelet Evaluation Large Platelets Retic Count pCO2 pO2 HCO3 ABG pH ABG Total CO2 ABG O2 Saturation ABG O2 Content ABG Base Excess ABG Hemoglobin ABG Carboxyhemoglobin POC ABG HHb (Measured) ABG Methemoglobin ABG O2 Capacity Hgb O2 Saturation FiO2 Sodium Potassium Chloride Carbon Dioxide Anion Gap BUN Creatinine Est GFR ( Amer) Est GFR (Non-Af Amer) POC Glucose (mg/dL) 402 H* 384 H 227 H Random Glucose Calcium Total Bilirubin AST ALT Alkaline Phosphatase Total Protein Albumin Globulin Albumin/Globulin Ratio Procalcitonin Ur L.pneumophila Ag Blood Type Antibody Screen Crossmatch BBK History Checked 04/11/18 04/12/18 04/12/18 23:59 04:18 05:00 WBC RBC Hgb Hct MCV MCH MCHC RDW Plt Count MPV Gran % Lymph % (Auto) [place] % (Auto) Eos % (Auto) Baso % (Auto) Gran # Lymph # (Auto) [place] # (Auto) Eos # (Auto) Baso # (Auto) Neutrophils % (Manual) Lymphocytes % (Manual) Monocytes % (Manual) Platelet Evaluation Large Platelets Retic Count pCO2 45 pO2 72.0 L HCO3 36.7 H ABG pH 7.52 H ABG Total CO2 38.1 H ABG O2 Saturation 98.8 H ABG O2 Content 8.9 L ABG Base Excess 12.7 H ABG Hemoglobin 6.5 L ABG Carboxyhemoglobin 2.0 H POC ABG HHb (Measured) 1.2 ABG Methemoglobin 1.1 ABG O2 Capacity 9.0 L Hgb O2 Saturation 95.8 FiO2 40.0 Sodium Potassium Chloride Carbon Dioxide Anion Gap BUN Creatinine Est GFR ( Amer) Est GFR (Non-Af Amer) POC Glucose (mg/dL) 153 H 183 H Random Glucose Calcium Total Bilirubin AST ALT Alkaline Phosphatase Total Protein Albumin Globulin Albumin/Globulin Ratio Procalcitonin Ur L.pneumophila Ag Blood Type Antibody Screen Crossmatch BBK History Checked 04/12/18 04/12/18 04/12/18 06:15 06:15 07:30 WBC 7.8 D RBC 2.36 L Hgb 6.6 L* Hct 22.7 L MCV 96.2 MCH 28.0 MCHC 29.1 L RDW 21.1 H Plt Count 234 MPV 11.1 H Gran % Lymph % (Auto) [place] % (Auto) Eos % (Auto) Baso % (Auto) Gran # Lymph # (Auto) [place] # (Auto) Eos # (Auto) Baso # (Auto) Neutrophils % (Manual) Lymphocytes % (Manual) Monocytes % (Manual) Platelet Evaluation Large Platelets Retic Count pCO2 pO2 HCO3 ABG pH ABG Total CO2 ABG O2 Saturation ABG O2 Content ABG Base Excess ABG Hemoglobin ABG Carboxyhemoglobin POC ABG HHb (Measured) ABG Methemoglobin ABG O2 Capacity Hgb O2 Saturation FiO2 Sodium 147 Potassium 4.0 Chloride 108 H Carbon Dioxide 35 H Anion Gap 8 L BUN 106 H Creatinine 2.5 H Est GFR ( Amer) 24 Est GFR (Non-Af Amer) 20 POC Glucose (mg/dL) 180 H Random Glucose 156 H Calcium 8.9 Total Bilirubin 0.6 AST 30 ALT 55 Alkaline Phosphatase 62 Total Protein 5.2 L Albumin 3.0 Globulin 2.2 Albumin/Globulin Ratio 1.4 Procalcitonin Ur L.pneumophila Ag Blood Type Antibody Screen Crossmatch BBK History Checked 04/12/18 04/12/18 04/12/18 08:00 08:00 08:21 WBC 10.3 D RBC 2.57 L Hgb 7.2 L Hct 24.5 L MCV 95.3 MCH 28.0 MCHC 29.4 L RDW 21.1 H Plt Count 222 MPV 10.5 Gran % 93.8 H Lymph % (Auto) 3.8 L [place] % (Auto) 2.4 Eos % (Auto) 0.0 L Baso % (Auto) 0.0 Gran # 9.68 H Lymph # (Auto) 0.4 L [place] # (Auto) 0.3 Eos # (Auto) 0.0 Baso # (Auto) 0.00 Neutrophils % (Manual) 91 H Lymphocytes % (Manual) 8 L Monocytes % (Manual) 1 Platelet Evaluation Normal Large Platelets Present Retic Count pCO2 55 H pO2 69.0 L HCO3 36.5 H ABG pH 7.43 ABG Total CO2 38.2 H ABG O2 Saturation 97.7 ABG O2 Content 9.3 L ABG Base Excess 11.0 H ABG Hemoglobin 6.9 L ABG Carboxyhemoglobin 2.1 H POC ABG HHb (Measured) 2.2 ABG Methemoglobin 1.2 ABG O2 Capacity 9.5 L Hgb O2 Saturation 94.5 L FiO2 40.0 Sodium Potassium Chloride Carbon Dioxide Anion Gap BUN Creatinine Est GFR ( Amer) Est GFR (Non-Af Amer) POC Glucose (mg/dL) Random Glucose Calcium Total Bilirubin AST ALT Alkaline Phosphatase Total Protein Albumin Globulin Albumin/Globulin Ratio Procalcitonin Ur L.pneumophila Ag Blood Type B POSITIVE Antibody Screen Negative Crossmatch See Detail BBK History Checked Patient has bt 04/12/18 11:25 WBC RBC Hgb Hct MCV MCH MCHC RDW Plt Count MPV Gran % Lymph % (Auto) [place] % (Auto) Eos % (Auto) Baso % (Auto) Gran # Lymph # (Auto) [place] # (Auto) Eos # (Auto) Baso # (Auto) Neutrophils % (Manual) Lymphocytes % (Manual) Monocytes % (Manual) Platelet Evaluation Large Platelets Retic Count pCO2 pO2 HCO3 ABG pH ABG Total CO2 ABG O2 Saturation ABG O2 Content ABG Base Excess ABG Hemoglobin ABG Carboxyhemoglobin POC ABG HHb (Measured) ABG Methemoglobin ABG O2 Capacity Hgb O2 Saturation FiO2 Sodium Potassium Chloride Carbon Dioxide Anion Gap BUN Creatinine Est GFR ( Amer) Est GFR (Non-Af Amer) POC Glucose (mg/dL) 206 H Random Glucose Calcium Total Bilirubin AST ALT Alkaline Phosphatase Total Protein Albumin Globulin Albumin/Globulin Ratio Procalcitonin Ur L.pneumophila Ag Blood Type Antibody Screen Crossmatch BBK History Checked
--- NOTE | 2018-04-12 15:59 | CON ---
DATE: 04/12/2018 REASON FOR THE CONSULTATION: Cardiac evaluation admitted with respiratory failure. BRIEF CLINICAL HISTORY: This is a 57-year-old female who was in the [facility] yesterday signed out AMA for smoking. The patient was brought to ER , with SOB, She was placed initially on CPAP,and duo- nebulizer treatment was given but patient got more respiratory distress, requiring intubation, intubated as an outpatient currently in 128, bed 6 and sedated. PAST MEDICAL HISTORY: Significant for COPD, asthma, breast cancer, with metastasis, anxiety disorder, chronic pain and narcotic abuse, diabetes requiring insulin, recurrent urinary tract infection, anemia, chronic kidney disease, pneumonia, and history of pleural effusion. Recent history of pneumonia and respiratory insufficiency. SOCIAL HISTORY: Active tobacco abuse. Denies any history of alcohol abuse. Denies any substance abuse. Narcotic dependent. ALLERGIES: ALLERGY TO LEVAQUIN AND NYSTATIN. HOME MEDICATIONS: The patient was taking oxycodone, aspirin, Xanax, ferrous sulfate, albuterol and Advair inhaler. PAST SURGICAL HISTORY: Significant for multiple urinary tract infection, biopsy, surgery for ovarian tumor, history of teratoma, history of diverticular chronic disease, history of chronic kidney disease, history of breast biopsy and history of umbilical hernia repair. PREVIOUS CARDIAC WORKUP: As follows, the patient had echocardiography done on 07/28/2017 revealed ventricular ejection fraction 65% no aortic regurgitation, no valvular aortic stenosis, trace mitral regurgitation, trace tricuspid regurgitation, RV systolic pressure 20. No pericardial effusion. History of renal insufficiency. The patient had repeat echo done on 03/09/2018 ejection fraction 65%. Most recent echo on 03/09/2018 that revealed normal sinus, normal wall thickening, normal LV function, calculated ejection fraction 63%, mild tricuspid regurgitation, RV systolic pressure 34. REVIEW OF SYSTEMS: As per HPI. PHYSICAL EXAMINATION: GENERAL: Height of the patient is 5 feet 6 inches. Weight of the patient 175 pounds. Body mass index 28.3 kg/m2. VITAL SIGNS: Temperature afebrile. Heart rate 104 and blood pressure 130/46. HEENT: PERRLA. Extraocular muscles intact. NECK: Supple. No carotid bruit. No thyromegaly. CHEST: Clear to auscultation. HEART: S1 and S2, regular. ABDOMEN: Soft. EXTREMITIES: Clubbing and cyanosis negative. LABORATORY DATA: Blood work up as follows, WBC 10.3, hemoglobin 7.8, hematocrit 24.5, platelet count 222. Chemistry shows sodium 147, potassium 4, chloride 108, carbon dioxide 35, anion gap of 8, BUN 106 and creatinine 2.5. Chest x-ray right-sided effusion atelectasis of left lower lobe, minor left basal atelectasis. CAT scan of the chest shows decreased right lower lobe consolidation and adjacent pleural effusion. IMPRESSION: A 57-year-old female with past medical history active tobacco abuse, recently admitted with pneumonia, respiratory insufficiency, renal insufficiency, preserved left ventricular function, mild mitral regurgitation, mild tricuspid regurgitation, who signed out yesterday, readmitted again with respiratory failure, undergoing respiratory failure, intubated. Still the patient has bilateral pneumonia effusion, renal insufficiency.Severe anemia. RECOMMENDATION: Continue broad-spectrum antibiotics, gentle diuretics. Keep the negative fluid balance. We will give low dose beta-brendon to control the heart rate . I will transfuse Two Units PRBCs, followed by 40 mg IV lasix. We will follow with you. Overall. the patient's condition is critical. Long-term prognosis is guarded. We will follow with you. We will get Lasix 40 daily to keep a negative fluid balance and beta-brendon. We will follow. Lisa Hernandez MD [facility]
[2018-04-12] MEDS ORDERED: Insulin Regular 1 UNITS/0.01 ML ML ONE (20:28)
[2018-04-12] MEDS: Insulin Lispro (HUMAlog) HIGH Coverage SC SCH (23:25)
[2018-04-13] MEDS: MethylPREDNISolone 40 mg Vial IVP SCH ×4 (00:59→21:45)
--- NOTE | 2018-04-13 02:09 | CON ---
PULMONARY AND CRITICAL CARE CONSULT DATE OF CONSULTATION: 04/12/2018 REFERRING PHYSICIAN: Sloan Sosa MD REASON FOR CONSULTATION: Respiratory failure, chronic lung disease, atelectasis. HISTORY OF PRESENT ILLNESS: This is a 57-year-old female well known to me from previous admission, noncompliant with followup, last admission signed against medical advice, also active smoker, recurrent right lung collapse secondary to extensive mucous plugging, has a chronic lung disease, history of breast cancer, anxiety disorder, diabetes, recurrent UTI, ended up with respiratory failure in ER, was intubated, this morning extubated, presently lying in the bed with a high-flow supplemental oxygen. Has a cough, unable to clear secretion. No hemoptysis, hematemesis, or hematuria. Has some leg swelling. PAST MEDICAL HISTORY: As per history of present illness. FAMILY HISTORY: Positive for cancer, diabetes, cardiac disease. SOCIAL HISTORY: Active smoker. Denies any alcohol use. MEDICATIONS: She is on aspirin 81 mg daily, vitamin D 50,000 units every 7 days, DuoNeb every 2 hours p.r.n., heparin 5000 units subcu every 8 hours, insulin coverage, metoprolol tartrate 25 mg twice a day, cefepime 1 g IV every 8 hours, Nicoderm patch daily, Protonix 40 mg daily, Solu-Medrol 20 mg every 8 hours. ALLERGIES: LEVAQUIN AND NYSTATIN. REVIEW OF SYSTEMS: No headache, no rhinitis. Has cough and shortness of breath. No chest pain or abdominal pain. No dysuria. Does have leg swelling. PHYSICAL EXAMINATION: GENERAL: Lying in the bed with high-flow oxygen. VITAL SIGNS: Temperature is 98, heart rate is 86, respiratory rate is 24, blood pressure 145/57, pulse ox was 90% on high-flow nasal cannula. HEENT: Moist mucous membranes. Crowded airway. NECK: Supple. No JVD. LUNGS: Have decreased breath sounds on the right lung. Scattered rhonchi and wheezing. HEART: S1 and S2. ABDOMEN: Soft, nontender, nondistended. EXTREMITIES: Does have edema. NEUROLOGIC: Awake and alert. Does follow simple commands. LABORATORY DATA: Hemoglobin 7.2, hematocrit 24.5, WBC 10.3, platelets 222,000. Reticulocyte count is 2. INR 1.05. PTT 25. Blood gases this morning show pH 7.43, pCO2 of 55, O2 of 69 that was on 40% oxygen. Sodium 147, potassium 4.0, chloride 108, bicarbonate 35, BUN 106, creatinine 2.5, glucose 166, calcium 8.9. AST 30, ALT 255, alk phos is 62, albumin 3.0. Urinalysis shows wbc 5-10, rbc's 0-2. Influenza A and B antibodies are negative. Urine for Legionella antigen is negative. Microbiology: Blood culture, urine culture, there is no growth. CT scan of the chest done in ER shows there is a decrease in right lower lobe consolidation, adjacent pleural effusion. There is some residual consolidation in the right lung base posteriorly. There is only minimal effusion on the current exam. There is a chronic area of scarring consolidation in the posterior aspect of the right lung apex. Calcifications are seen in the left upper quadrant of the left breast. Mammographic correlation is suggested. IMPRESSION AND PLAN: Respiratory failure, atelectasis, chronic obstructive lung disease, diabetes, history of breast cancer, pneumonia, recurrent urinary tract infections, suspected sleep apnea syndrome, noncompliant with followup and medication, active smoker. Overall poor prognosis. Continue high-flow oxygen. Refusing to use BiPAP. Continue steroids, antibiotics, gastric prophylaxis, DVT prophylaxis. Also has severe anemia. Need to follow up hemoglobin and hematocrit. Follow up labs in the morning. Renal consult and cardiology consult have been called. Thank you and we will follow with you. Lisa Rucker MD
[2018-04-13] MEDS: Insulin Lispro (HUMAlog) HIGH Coverage SC SCH ×5 (04:00→20:43)
[2018-04-13] MEDS: Albuterol-Ipratrop 3 mg / 0.5 (3 ml) UD IH PRN ×4 (04:47→23:10)
[2018-04-13] MEDS: Cefepime 1gm in NS 100ml 1 GM/100 ML BAG IVPB SCH ×2 (06:26→17:08)
[2018-04-13 06:49] LABS: MEAN CELL VOLUME 95.9 fl (80.0-105.0); MEAN CORPUSCULAR HEMOGLOBIN 28.2 pg (25.0-35.0); MEAN CORPUSCULAR HGB CONC 29.4 g/dl (31.0-37.0); MEAN PLATELET VOLUME 11.9 fl (7.0-11.0); RBC 3.41 10^6/uL (3.5-6.1); RED CELL DISTRIBUTION WIDTH 21.6 % (11.5-14.5); WHITE BLOOD COUNT 11.3 10^3/uL (4.5-11.0)
[2018-04-13 06:55] LABS: HEMOGLOBIN 9.6 g/dL (12.0-16.0)
[2018-04-13 06:59] LABS: ALB/GLOB RATIO 1.4 (1.1-1.8); ALBUMIN 3.4 g/dL (3.0-4.8); CALCIUM 8.4 mg/dL (8.4-10.5)
--- NOTE | 2018-04-13 07:27 | CP.PCM.PN ---
<Rubio Piedra - Last Filed: 04/13/18 11:12> Subjective - Date & Time of Evaluation Date of Evaluation: 04/13/18 Time of Evaluation: 07:24 - Subjective Subjective: PGY-2 heme/onc progress note for Dr Gleason No acute events noted overnight. Patient resting comfortably on high flow oxygen. She did not participate in the interview. She requested xanax and percocet. ROS not possible. Objective - Vital Signs/Intake and Output Vital Signs (last 24 hours): Temp Pulse Resp BP Pulse Ox 98.3 F 86 18 148/58 L 98 04/13/18 03:09 04/13/18 05:22 04/13/18 07:12 04/13/18 03:09 04/12/18 08:10 Intake and Output: 04/13/18 04/13/18 06:59 18:59 Intake Total 325 Balance 325 - Medications Medications: Current Medications Albuterol/Ipratropium (Duoneb 3 Mg/0.5 Mg (3 Ml) Ud) 3 ml IH Q2H PRN PRN Reason: Shortness of Breath Last Admin: 04/13/18 07:10 Dose: 3 ml Aspirin (Aspirin Chewable) 81 mg PO DAILY [facility] Last Admin: 04/12/18 09:58 Dose: 81 mg Atorvastatin Calcium (Lipitor) 40 mg PO DAILY [facility] Last Admin: 04/12/18 09:58 Dose: 40 mg Ergocalciferol (Drisdol 50,000 Intl Units Cap) 1 cap PO Q7D [facility] Last Admin: 04/11/18 16:07 Dose: Not Given Heparin Sodium (Porcine) (Heparin) 5,000 units SC Q8H [facility]; Protocol Last Admin: 04/12/18 22:00 Dose: Not Given Fentanyl Citrate (Fentanyl Citrate/Sodium Chloride 1 Mg/100 Ml) 1,000 mcg in 100 mls @ 2 mls/hr IV .Q24H PRN; Protocol PRN Reason: TITRATE PER MD ORDER Last Titration: 04/12/18 07:00 Dose: 0 mcg/hr, 0 mls/hr Midazolam 100 mg/100ml in NS (Midazolam 100 Mg/100ml In Ns) 100 mg in 100 mls @ 1 mls/hr IV .Q24H PRN; Protocol PRN Reason: Sedation Last Titration: 04/12/18 09:09 Dose: 0 mg/hr, 0 mls/hr Cefepime HCl (Maxipime 1gm) 1 gm in 100 mls @ 100 mls/hr IVPB Q8 [facility]; Protocol Last Admin: 04/13/18 06:26 Dose: 100 mls/hr Insulin Human Lispro (Humalog High) 0 units SC Q4H [facility]; Protocol Last Admin: 04/13/18 04:00 Dose: Not Given Methylprednisolone (Solu-Medrol) 20 mg IVP Q8H [facility] Last Admin: 04/13/18 00:59 Dose: 20 mg Metoprolol Tartrate (Lopressor) 25 mg PO BID [facility] Last Admin: 04/12/18 18:25 Dose: 25 mg Nicotine (Nicoderm Cq) 1 patch TD DAILY [facility] Last Admin: 04/12/18 09:01 Dose: 1 patch Pantoprazole Sodium (Protonix Inj) 40 mg IVP DAILY [facility] Last Admin: 04/12/18 09:01 Dose: 40 mg - Labs Labs: 04/13/18 06:10 04/13/18 06:10 PT 11.9 SECONDS (9.4-12.5) 04/11/18 12:25 INR 1.05 04/11/18 12:25 APTT 25.3 Seconds (26.9-38.3) L 04/11/18 12:25 - Additional Findings Additional findings: - Constitutional Appears: No Acute Distress, Older Than Stated Age - Head Exam Head Exam: ATRAUMATIC, NORMAL INSPECTION - Eye Exam Eye Exam: EOMI, Normal appearance, PERRL. absent: Scleral icterus - ENT Exam ENT Exam: Mucous Membranes Moist - Respiratory Exam Respiratory Exam: Decreased Breath Sounds, Rales Additional comments: rales R>L - Cardiovascular Exam Cardiovascular Exam: Tachycardia, REGULAR RHYTHM, +S1, +S2. absent: JVD - GI/Abdominal Exam GI & Abdominal Exam: Normal Bowel Sounds, Soft. absent: Tenderness - Extremities Exam Extremities exam: Positive for: normal capillary refill, normal inspection, pedal pulses present - Neurological Exam Neurological exam: Alert, Oriented x3 - Psychiatric Exam Psychiatric exam: Anxious - Skin Skin Exam: Normal Color, Warm Assessment and Plan - Assessment and Plan (Free Text) Plan: Mrs Granado is a 57 year old female with a PMHx history of breast cancer, severe COPD, anxiety, pneumonia, pleural effusions, CKD, xanax abuse, hx of non- compliance, hx of xanax/oxycodone overose, who presented to the ED in respiratory distress while on non-rebreather. Patient was then intubated while in ED due to lack of airway protection. Hematology/oncology has been consulted for anemia and her hx of left-sided breast cancer. Anemia -likely anemia of chronic disease 2/2 to ckd -Hgb on admission: 7.3 -> today 7.2 * chronically anemic since 02/2017 -recent admission 03/31/18 there were orders for iron studies, retic count, peripheral smear, B12, folate * retic count: 1.72, B12: 476, folate: 17, iron: 44, TIBC 213, %sat: 21, ferritin: 206, MCV: 96, LDH: 561 -has received erythropoetin in the past for anemia due to renal disease * CKD 3 and now with DAHLIA -recent admission 03/31/18 there were orders for epo level, immunofixation, spep, LDH * epo 22.8 (mildly high) * ABDIRIZAK and SPEP -> selective protein loss pattern, suggestive of nephrotic syndrome -1 dose of darbapoetin 40mcg sc on 04/06/18 - we will continue this once a week * darbopoetin 40mcg sc given on 04/13/18 -ferrous gluconate 324mg po qd now discontinued -recommend to continue darbapoetin injections outpatient Hx L breast cancer (Dx 2016) invasive ductal carcinoma -ER+/HER2+ -Got 1 cycle of sandee-adjuvant chemo. After that, refuse chemo/surgery. -CT chest w/o contrast showed lymphadenopathy suspicious for tumor * etiology could be malignancy, infectious, inflammatory * repeat CT 1 month after current episode has resolved Seen and discussed with Dr Gleason <Melanie Gleason P - Last Filed: 04/20/18 22:07> Objective - Vital Signs/Intake and Output Vital Signs (last 24 hours): Temp Pulse Resp BP Pulse Ox 98.1 F 93 H 18 147/54 L 96 04/20/18 21:37 04/20/18 21:37 04/20/18 21:37 04/20/18 21:37 04/20/18 21:37 Intake and Output: 04/20/18 04/21/18 18:59 06:59 Intake Total 860 Output Total 400 Balance 460 - Medications Medications: Current Medications Albuterol Sulfate (Albuterol 0.083% Inhal Elvie (2.5 Mg/3 Ml) Ud) 2.5 mg INH [id number] [facility] Last Admin: 04/20/18 13:45 Dose: 2.5 mg Albuterol/Ipratropium (Duoneb 3 Mg/0.5 Mg (3 Ml) Ud) 3 ml IH Q2H PRN PRN Reason: Shortness of Breath Last Admin: 04/19/18 15:34 Dose: 3 ml Arformoterol Tartrate (Brovana) 15 mcg IH [id number] [facility] Last Admin: 04/20/18 07:55 Dose: Not Given Aspirin (Aspirin Chewable) 81 mg PO DAILY [facility] Last Admin: 04/20/18 09:08 Dose: 81 mg Atorvastatin Calcium (Lipitor) 40 mg PO DAILY [facility] Last Admin: 04/20/18 09:08 Dose: 40 mg Bacitracin (Bacitracin) 0 gm TOP BID [facility] Last Admin: 04/20/18 17:27 Dose: 1 applic Benzocaine/Menthol (Cepacol Sore Throat) 1 vy MT Q4H PRN PRN Reason: Sore Throat Last Admin: 04/20/18 21:49 Dose: 1 vy Budesonide (Pulmicort Respules) 0.5 mg IH [id number] [facility] Last Admin: 04/20/18 07:55 Dose: Not Given Dextrose (Dextrose 50% Inj) 0 ml IV STAT PRN; Protocol PRN Reason: Hypoglycemia Protocol Ergocalciferol (Drisdol 50,000 Intl Units Cap) 1 cap PO Q7D [facility] Last Admin: 04/18/18 17:45 Dose: 1 cap Ferrous Gluconate (Fergon) 324 mg PO DAILY [facility] Furosemide (Lasix) 40 mg IVP DAILY [facility] Last Admin: 04/20/18 09:13 Dose: 40 mg Heparin Sodium (Porcine) (Heparin) 5,000 units SC Q8 [facility]; Protocol Last Admin: 04/20/18 21:50 Dose: 5,000 units Dextrose (Dextrose 5% In Water 1000 Ml) 1,000 mls @ 0 mls/hr IV .Q0M PRN; Protocol PRN Reason: Hypoglycemia Protocol Insulin Detemir (Levemir) 10 unit SC [facility] Last Admin: 04/20/18 21:50 Dose: 10 units Insulin Human Lispro (Humalog Low) 0 units SC [facility]; Protocol Last Admin: 04/20/18 21:50 Dose: 4 units Metoprolol Tartrate (Lopressor) 25 mg PO BID [facility] Last Admin: 04/20/18 17:22 Dose: 25 mg Nicotine (Nicoderm Cq) 1 patch TD DAILY [facility] Last Admin: 04/20/18 09:14 Dose: 1 patch Pantoprazole Sodium (Protonix Ec Tab) 40 mg PO ACB [facility] Last Admin: 04/20/18 09:09 Dose: 40 mg Paroxetine HCl (Paxil) 5 mg PO HS [facility] Last Admin: 04/20/18 21:48 Dose: 5 mg Prednisone (Prednisone Tab) 40 mg PO DAILY [facility] Last Admin: 04/20/18 09:09 Dose: 40 mg Vitamin B Complex/Vit C/Folic Acid (Nephro-Enrrique) 1 tab PO 0800 [facility] Last Admin: 04/20/18 09:08 Dose: 1 tab - Labs Labs: 04/20/18 07:20 04/20/18 07:20 PT 11.9 SECONDS (9.4-12.5) 04/11/18 12:25 INR 1.05 04/11/18 12:25 APTT 25.3 Seconds (26.9-38.3) L 04/11/18 12:25 Attending/Attestation - Attestation I have personally seen and examined this patient.: Yes I have fully participated in the care of the patient.: Yes I have reviewed all pertinent clinical information, including history, physical exam and plan: Yes
[2018-04-13] MEDS ORDERED: Darbepoetin Alfa 40 mcg/ml Inj IVP ONE (07:28)
[2018-04-13] MEDS ORDERED: Darbepoetin Alfa 40 mcg/ml Inj SC ONE (08:32)
--- NOTE | 2018-04-13 08:37 | CP.PCM.PN ---
<Leonidas Guardado - Last Filed: 04/13/18 13:10> Subjective - Date & Time of Evaluation Date of Evaluation: 04/13/18 Time of Evaluation: 07:10 - Subjective Subjective: Infectious disease progress note: Pt seen and examined at bedside. No acute events overnight. states that she is doing better, Denies any cough, chest pain or sob. 12 Point ROS neg other than stated above Objective - Vital Signs/Intake and Output Vital Signs (last 24 hours): Temp Pulse Resp BP Pulse Ox 98.3 F 85 11 L 133/49 L 96 04/13/18 03:09 04/13/18 07:49 04/13/18 07:40 04/13/18 07:30 04/13/18 07:40 Intake and Output: 04/13/18 04/13/18 06:59 18:59 Intake Total 325 Balance 325 - Medications Medications: Current Medications Albuterol/Ipratropium (Duoneb 3 Mg/0.5 Mg (3 Ml) Ud) 3 ml IH Q2H PRN PRN Reason: Shortness of Breath Last Admin: 04/13/18 07:10 Dose: 3 ml Aspirin (Aspirin Chewable) 81 mg PO DAILY [facility] Last Admin: 04/12/18 09:58 Dose: 81 mg Atorvastatin Calcium (Lipitor) 40 mg PO DAILY [facility] Last Admin: 04/12/18 09:58 Dose: 40 mg Ergocalciferol (Drisdol 50,000 Intl Units Cap) 1 cap PO Q7D [facility] Last Admin: 04/11/18 16:07 Dose: Not Given Ferrous Gluconate (Fergon) 324 mg PO TID [facility] Heparin Sodium (Porcine) (Heparin) 5,000 units SC Q8H [facility]; Protocol Last Admin: 04/13/18 06:30 Dose: 5,000 units Midazolam 100 mg/100ml in NS (Midazolam 100 Mg/100ml In Ns) 100 mg in 100 mls @ 1 mls/hr IV .Q24H PRN; Protocol PRN Reason: Sedation Last Titration: 04/12/18 09:09 Dose: 0 mg/hr, 0 mls/hr Cefepime HCl (Maxipime 1gm) 1 gm in 100 mls @ 100 mls/hr IVPB Q8 [facility]; Protocol Last Admin: 04/13/18 06:26 Dose: 100 mls/hr Insulin Human Lispro (Humalog High) 0 units SC Q4H [facility]; Protocol Last Admin: 04/13/18 08:10 Dose: 4 units Methylprednisolone (Solu-Medrol) 20 mg IVP Q8H [facility] Last Admin: 04/13/18 00:59 Dose: 20 mg Metoprolol Tartrate (Lopressor) 25 mg PO BID [facility] Last Admin: 04/12/18 18:25 Dose: 25 mg Nicotine (Nicoderm Cq) 1 patch TD DAILY [facility] Last Admin: 04/12/18 09:01 Dose: 1 patch Pantoprazole Sodium (Protonix Inj) 40 mg IVP DAILY [facility] Last Admin: 04/12/18 09:01 Dose: 40 mg - Labs Labs: 04/13/18 06:10 04/13/18 06:10 PT 11.9 SECONDS (9.4-12.5) 04/11/18 12:25 INR 1.05 04/11/18 12:25 APTT 25.3 Seconds (26.9-38.3) L 04/11/18 12:25 - Constitutional Appears: No Acute Distress - Head Exam Head Exam: ATRAUMATIC, NORMOCEPHALIC - Eye Exam Eye Exam: EOMI - ENT Exam ENT Exam: Mucous Membranes Moist - Respiratory Exam Respiratory Exam: Clear to Ausculation Bilateral, Wheezes - Cardiovascular Exam Cardiovascular Exam: REGULAR RHYTHM, +S1, +S2 - GI/Abdominal Exam GI & Abdominal Exam: Soft, Normal Bowel Sounds - Extremities Exam Extremities Exam: absent: Calf Tenderness, Pedal Edema - Neurological Exam Neurological Exam: Alert, Awake, Oriented x3 - Psychiatric Exam Psychiatric exam: Normal Mood - Skin Skin Exam: Normal Color, Warm Assessment and Plan - Assessment and Plan (Free Text) Assessment: 57 F with a PMHx history of breast cancer, severe COPD, anxiety, pneumonia, pleural effusions, CKD, xanax abuse, hx of non-compliance, hx of xanax/oxycodone overdose, who presented respiratory failure 2/2 possible HAP s/p extubation. - Vanc x 1 , and cont Cefepime - Blood cx neg thus far - F/u septic work up - Chest CT - decrease in size of consolidation - Cont to monitor Case and plan was reviewed and discussed in detail with Dr Damon <Chung Damon - Last Filed: 04/13/18 14:51> Objective - Vital Signs/Intake and Output Vital Signs (last 24 hours): Temp Pulse Resp BP Pulse Ox 97.8 F 84 21 129/50 L 100 04/13/18 12:00 04/13/18 14:10 04/13/18 14:10 04/13/18 12:00 04/13/18 14:10 Intake and Output: 04/13/18 04/13/18 06:59 18:59 Intake Total 325 640 Output Total 540 Balance 325 100 - Medications Medications: Current Medications Albuterol/Ipratropium (Duoneb 3 Mg/0.5 Mg (3 Ml) Ud) 3 ml IH Q2H PRN PRN Reason: Shortness of Breath Last Admin: 04/13/18 12:55 Dose: 3 ml Alprazolam (Xanax) 0.5 mg PO ONCE ONE; Protocol Stop: 04/13/18 15:01 Aspirin (Aspirin Chewable) 81 mg PO DAILY [facility] Last Admin: 04/13/18 09:18 Dose: 81 mg Atorvastatin Calcium (Lipitor) 40 mg PO DAILY [facility] Last Admin: 04/13/18 09:20 Dose: 40 mg Ergocalciferol (Drisdol 50,000 Intl Units Cap) 1 cap PO Q7D [facility] Last Admin: 04/11/18 16:07 Dose: Not Given Ferrous Gluconate (Fergon) 324 mg PO TID [facility] Last Admin: 04/13/18 14:13 Dose: 324 mg Heparin Sodium (Porcine) (Heparin) 5,000 units SC Q8H [facility]; Protocol Last Admin: 04/13/18 14:14 Dose: 5,000 units Midazolam 100 mg/100ml in NS (Midazolam 100 Mg/100ml In Ns) 100 mg in 100 mls @ 1 mls/hr IV .Q24H PRN; Protocol PRN Reason: Sedation Last Titration: 04/12/18 09:09 Dose: 0 mg/hr, 0 mls/hr Cefepime HCl (Maxipime 1gm) 1 gm in 100 mls @ 100 mls/hr IVPB 0600,1800 [facility]; Protocol Insulin Human Lispro (Humalog High) 0 units SC Q4H [facility]; Protocol Last Admin: 04/13/18 12:16 Dose: 7 units Methylprednisolone (Solu-Medrol) 20 mg IVP Q12H [facility] Last Admin: 04/13/18 09:45 Dose: Not Given Metoprolol Tartrate (Lopressor) 25 mg PO BID [facility] Last Admin: 04/13/18 09:18 Dose: 25 mg Nicotine (Nicoderm Cq) 1 patch TD DAILY [facility] Last Admin: 04/13/18 09:19 Dose: 1 patch Pantoprazole Sodium (Protonix Inj) 40 mg IVP DAILY [facility] Last Admin: 04/13/18 09:19 Dose: 40 mg - Labs Labs: 04/13/18 06:10 04/13/18 06:10 PT 11.9 SECONDS (9.4-12.5) 04/11/18 12:25 INR 1.05 04/11/18 12:25 APTT 25.3 Seconds (26.9-38.3) L 04/11/18 12:25 Assessment and Plan - Assessment and Plan (Free Text) Assessment: Infectious diseases Attending Physician Attestation Patient seen and examined, discussed with medical supply technician. I have reviewed the patient's history of present illness, past medical, social, personal and family histories, pertinent physical exam findings, course so far in this hospital admission, pertinent laboratory and imaging results. I agree with the above findings, assessment and plan. In addition, continue Cefepime for patient with possible HCAP on top of CHF and severe COPD.
--- NOTE | 2018-04-13 09:04 | CP.CCUPN ---
<Lizzette Garnica - Last Filed: 04/13/18 10:32> CCU Subjective - Physician Review Subjective (Free Text): Lizzette Garnica, PGY-1, ICU Progress Note for Dr. Santiago Patient seen and evaluated at bedside. Patient had no acute overnight events. Patient reports headache on the right side but denies any other complaints including fever, chills, sore throat, chest pain, shortness of breath, nausea, vomiting, constipation, diarrhea, dysuria, hematuria. 12-point ROS was negative except for what was mentioned above. CCU Objective - Vital Signs / Intake & Output Vital Signs (Last 4 hours): Vital Signs Pulse Resp BP Pulse Ox 04/13/18 07:49 85 04/13/18 07:40 88 11 L 96 04/13/18 07:30 85 24 133/49 L 100 04/13/18 07:20 90 22 94 L 04/13/18 07:12 18 04/13/18 07:10 83 29 H 100 04/13/18 07:00 142/59 L 04/13/18 06:59 82 12 100 04/13/18 06:50 81 18 100 04/13/18 06:40 82 15 100 04/13/18 06:30 82 16 142/59 L 99 04/13/18 06:20 91 H 18 100 04/13/18 06:10 82 16 100 04/13/18 06:00 148/60 04/13/18 05:59 85 14 100 04/13/18 05:50 93 H 47 H 98 04/13/18 05:40 87 28 H 100 04/13/18 05:30 143/65 04/13/18 05:29 84 14 100 04/13/18 05:22 86 04/13/18 05:20 84 11 L 100 04/13/18 05:10 85 19 100 Intake and Output (Last 8hrs): Intake & Output 04/12/18 04/13/18 04/13/18 22:59 06:59 14:59 Intake Total 750 325 Balance 750 325 Intake: IV 425 Right 425 Blood Product 325 325 Red Blood Cells Cpd As1 325 Lr Unit [id number] Red Blood Cells Cpd As1 325 Lr Unit [id number] - Physical Exam Head: Positive for: Atraumatic, Normocephalic Pupils: Positive for: PERRL Extroacular Muscles: Positive for: EOMI Conjunctiva: Positive for: Normal Mouth: Positive for: Moist Mucous Membranes Neck: Positive for: Normal Range of Motion Respiratory/Chest: Positive for: Good Air Exchange, Wheezes, Rhonchi, Other (Pt has a mediport on right chest wall) Cardiovascular: Positive for: Regular Rate and Rhythm, Normal S1, S2. Negative for: Murmurs Abdomen: Negative for: Tenderness, Distention, Peritoneal Signs Back: Positive for: Normal Inspection Upper Extremity: Positive for: Normal Inspection. Negative for: Cyanosis, Edema Lower Extremity: Positive for: Edema (2+ pitting edema bilaterally). Negative for: Normal Inspection Neurological: Positive for: GCS=15, CN II-XII Intact, Speech Normal (patient speaking in 2 word sentences), Motor Func Grossly Intact Skin: Positive for: Warm, Dry, Normal Color. Negative for: Rashes Psychiatric: Positive for: Alert, Oriented x 3, Normal Insight, Normal Concentration - Medications Active Medications: Active Medications Generic Name Dose Route Start Last Admin Trade Name Freq PRN Reason Stop Dose Admin Albuterol/Ipratropium 3 ml 04/11/18 15:53 04/13/18 07:10 Duoneb 3 Mg/0.5 Mg (3 Ml) Ud IH 3 ml Q2H PRN Administration Shortness of Breath Aspirin 81 mg 04/12/18 10:00 04/12/18 09:58 Aspirin Chewable PO 81 mg DAILY [facility] Administration Atorvastatin Calcium 40 mg 04/11/18 14:15 04/12/18 09:58 Lipitor PO 40 mg DAILY [facility] Administration Ergocalciferol 1 cap 04/11/18 16:00 04/11/18 16:07 Drisdol 50,000 Intl Units Cap PO Not Given Q7D [facility] Ferrous Gluconate 324 mg 04/13/18 10:00 Fergon PO TID LUICANO Heparin Sodium (Porcine) 5,000 units 04/11/18 14:45 04/13/18 06:30 Heparin SC 5,000 units Q8H [facility] Administration Protocol Midazolam 100 mg/100ml in NS 100 mg in 100 mls @ 1 mls/hr 04/11/18 13:11 04/12/18 09:09 Midazolam 100 Mg/100ml In Ns IV 0 mg/hr .Q24H PRN 0 mls/hr Sedation Titration Protocol 1 MG/HR Cefepime HCl 1 gm in 100 mls @ 100 mls/hr 04/11/18 14:30 04/13/18 06:26 Maxipime 1gm IVPB 100 mls/hr Q8 [facility] Administration Protocol Insulin Human Lispro 0 units 04/12/18 23:00 04/13/18 08:10 Humalog High SC 4 units Q4H [facility] Administration Protocol Methylprednisolone 20 mg 04/12/18 08:15 04/13/18 00:59 Solu-Medrol IVP 20 mg Q8H [facility] Administration Metoprolol Tartrate 25 mg 04/12/18 18:00 04/12/18 18:25 Lopressor PO 25 mg BID [facility]CIANO Administration Nicotine 1 patch 04/12/18 10:00 04/12/18 09:01 Nicoderm Cq TD 1 patch DAILY [facility] Administration Pantoprazole Sodium 40 mg 04/11/18 14:45 04/12/18 09:01 Protonix Inj IVP 40 mg DAILY [facility] Administration - Patient Studies Lab Studies: Microbiology Studies 04/11/18 16:00 MRSA Culture (Admit) - Final Naris MRSA NOT DETECTED 04/11/18 12:45 Blood Culture - Preliminary Blood NO GROWTH AFTER 24 HOURS 04/11/18 13:05 Blood Culture - Preliminary Blood NO GROWTH AFTER 24 HOURS 04/11/18 14:00 Urine Culture - Final Urine Random No Growth (<1,000 CFU/ML) Lab Studies 04/13/18 04/13/18 04/12/18 Range/Units 06:10 06:10 20:02 WBC 11.3 H (4.5-11.0) 10^3/uL RBC 3.41 L (3.5-6.1) 10^6/uL Hgb 9.6 L D (12.0-16.0) g/dL Hct 32.7 L (36.0-48.0) % MCV 95.9 (80.0-105.0) fl MCH 28.2 (25.0-35.0) pg MCHC 29.4 L (31.0-37.0) g/dl RDW 21.6 H (11.5-14.5) % Plt Count 206 (120.0-450.0) 10^3/uL MPV 11.9 H (7.0-11.0) fl Sodium 147 (132-148) mmol/L Potassium 4.3 (3.6-5.0) mmol/L Chloride 106 (98-107) mmol/L Carbon Dioxide 35 H (21-33) mmol/L Anion Gap 10 (10-20) BUN 107 H (7-21) mg/dL Creatinine 2.6 H (0.7-1.2) mg/dl Est GFR ( Amer) 23 Est GFR (Non-Af Amer) 19 POC Glucose (mg/dL) 440 H* (65-110) mg/dL Random Glucose 172 H (70-110) mg/dL Calcium 8.4 (8.4-10.5) mg/dL Total Bilirubin 0.6 (0.2-1.3) mg/dL AST 36 (14-36) U/L ALT 63 H (7-56) U/L Alkaline Phosphatase 73 (38-126) U/L Total Protein 5.8 (5.8-8.3) g/dL Albumin 3.4 (3.0-4.8) g/dL Globulin 2.4 gm/dL Albumin/Globulin Ratio 1.4 (1.1-1.8) Ur Strep pneumoniae Ag (Not Detected) Blood Type Antibody Screen Crossmatch BBK History Checked 04/12/18 04/12/18 04/12/18 Range/Units 16:16 11:25 08:00 WBC (4.5-11.0) 10^3/uL RBC (3.5-6.1) 10^6/uL Hgb (12.0-16.0) g/dL Hct (36.0-48.0) % MCV (80.0-105.0) fl MCH (25.0-35.0) pg MCHC (31.0-37.0) g/dl RDW (11.5-14.5) % Plt Count (120.0-450.0) 10^3/uL MPV (7.0-11.0) fl Sodium (132-148) mmol/L Potassium (3.6-5.0) mmol/L Chloride (98-107) mmol/L Carbon Dioxide (21-33) mmol/L Anion Gap (10-20) BUN (7-21) mg/dL Creatinine (0.7-1.2) mg/dl Est GFR ( Amer) Est GFR (Non-Af Amer) POC Glucose (mg/dL) 373 H 206 H (65-110) mg/dL Random Glucose (70-110) mg/dL Calcium (8.4-10.5) mg/dL Total Bilirubin (0.2-1.3) mg/dL AST (14-36) U/L ALT (7-56) U/L Alkaline Phosphatase (38-126) U/L Total Protein (5.8-8.3) g/dL Albumin (3.0-4.8) g/dL Globulin gm/dL Albumin/Globulin Ratio (1.1-1.8) Ur Strep pneumoniae Ag (Not Detected) Blood Type B POSITIVE Antibody Screen Negative Crossmatch See Detail BBK History Checked Patient has bt 04/12/18 04/11/18 Range/Units 07:30 16:15 WBC (4.5-11.0) 10^3/uL RBC (3.5-6.1) 10^6/uL Hgb (12.0-16.0) g/dL Hct (36.0-48.0) % MCV (80.0-105.0) fl MCH (25.0-35.0) pg MCHC (31.0-37.0) g/dl RDW (11.5-14.5) % Plt Count (120.0-450.0) 10^3/uL MPV (7.0-11.0) fl Sodium (132-148) mmol/L Potassium (3.6-5.0) mmol/L Chloride (98-107) mmol/L Carbon Dioxide (21-33) mmol/L Anion Gap (10-20) BUN (7-21) mg/dL Creatinine (0.7-1.2) mg/dl Est GFR ( Amer) Est GFR (Non-Af Amer) POC Glucose (mg/dL) 180 H (65-110) mg/dL Random Glucose (70-110) mg/dL Calcium (8.4-10.5) mg/dL Total Bilirubin (0.2-1.3) mg/dL AST (14-36) U/L ALT (7-56) U/L Alkaline Phosphatase (38-126) U/L Total Protein (5.8-8.3) g/dL Albumin (3.0-4.8) g/dL Globulin gm/dL Albumin/Globulin Ratio (1.1-1.8) Ur Strep pneumoniae Ag Not detected (Not Detected) Blood Type Antibody Screen Crossmatch BBK History Checked Laboratory Results - last 24 hr 04/11/18 04/12/18 04/12/18 16:15 07:30 08:00 WBC RBC Hgb Hct MCV MCH MCHC RDW Plt Count MPV Sodium Potassium Chloride Carbon Dioxide Anion Gap BUN Creatinine Est GFR ( Amer) Est GFR (Non-Af Amer) POC Glucose (mg/dL) 180 H Random Glucose Calcium Total Bilirubin AST ALT Alkaline Phosphatase Total Protein Albumin Globulin Albumin/Globulin Ratio Ur Strep pneumoniae Ag Not detected Blood Type B POSITIVE Antibody Screen Negative Crossmatch See Detail BBK History Checked Patient has bt 04/12/18 04/12/18 04/12/18 11:25 16:16 20:02 WBC RBC Hgb Hct MCV MCH MCHC RDW Plt Count MPV Sodium Potassium Chloride Carbon Dioxide Anion Gap BUN Creatinine Est GFR ( Amer) Est GFR (Non-Af Amer) POC Glucose (mg/dL) 206 H 373 H 440 H* Random Glucose Calcium Total Bilirubin AST ALT Alkaline Phosphatase Total Protein Albumin Globulin Albumin/Globulin Ratio Ur Strep pneumoniae Ag Blood Type Antibody Screen Crossmatch BBK History Checked 04/13/18 04/13/18 06:10 06:10 WBC 11.3 H RBC 3.41 L Hgb 9.6 L D Hct 32.7 L MCV 95.9 MCH 28.2 MCHC 29.4 L RDW 21.6 H Plt Count 206 MPV 11.9 H Sodium 147 Potassium 4.3 Chloride 106 Carbon Dioxide 35 H Anion Gap 10 BUN 107 H Creatinine 2.6 H Est GFR ( Amer) 23 Est GFR (Non-Af Amer) 19 POC Glucose (mg/dL) Random Glucose 172 H Calcium 8.4 Total Bilirubin 0.6 AST 36 ALT 63 H Alkaline Phosphatase 73 Total Protein 5.8 Albumin 3.4 Globulin 2.4 Albumin/Globulin Ratio 1.4 Ur Strep pneumoniae Ag Blood Type Antibody Screen Crossmatch BBK History Checked Radiology Impressions: Radiology Impressions Chest X-Ray 04/12/18 09:17 IMPRESSION: The slightly limited study. Interval removal ETT and NGT. Right-sided effusion with right lower lobe atelectasis and or infiltrate. Minor left basilar atelectasis. Central pulmonary vasculature remains slightly congested in appearance Fingerstick Blood Sugar Results: 218 Review of Systems - Review of Systems Review of Systems: except for what was in HPI Critical Care Progress Note - Ventilator Checklist Head of Bed 30 Degrees: Yes PUD Prophalyxis: Yes DVT Prophylaxis: Yes - Nutrition Nutrition: Nutrition Category Date Time Status Liquid Diet [DIET] Diets 04/12/18 Breakfast Ordered Assessment/Plan - Assessment and Plan (Free Text) Assessment: 57 year old female with past medical history of invasive ductal carcinoma of left breast, COPD, anxiety, pneumonia, pleural effusion, CKD stage III, asthma, chronic pain, diabetes mellitus type II, arthritis, xanax abuse, recurrent UTIs, history of CHF with last EF: 65% presented status post intubation to the ED after hypercarbic respiratory failure. Plan: Neuro: -AAOx3, moving extremities past midline, no FND -Continue to monitor neuro status -Reorient as necessary Cardio: -RRR, normotensive, no signs of HD compromise -EKG 04/11: sinus rhythm with PACs with HR: 100 -As per Cardiology, Dr. Hernandez, patient was started on aspirin 81 mg daily, lipitor 40 mg daily, and lopressor 25 mg BID -Maintain MAP>65. -Monitor for S/S, HD compromise. Pulm: Hypercarbic respiratory failure -Patient stating well on humidified O2 2L. -Maintain O2 saturation>90%. -Elevate bed to 30 degrees COPD -Continue duonebs 3 mL Q2 -Reduce solumedrol 40 mg Q12 HCAP -Chest CT: showed air bronchograms on the right side and emphysematous changes -CXR 04/12: right lower lobe infiltrate -Continue treatment with vancomycin and cefepime day 3. GI: Diet -Clear liquid diet. Advance diet as tolerated GI prophylaxis -Protonix 40 mg daily /Nephro: CKD stage III -BUN/Cr stable at 107/2.6. Patient is at baseline creatinine. -UA: 30 protein, 100 glucose, trace blood, small LE, 0-2 WBC, 5-10 RBC, few bacteria -Ergocalciferol Q7days and 1 dose of aranesp given. -Ray intact -Continue monitoring. -Replete electrolytes as needed. -Maintain euvolemia. Endocrinology: Diabetes mellitus type II -Random glucose: 172 -High SSI -Maintain euglycemia. Heme/Onc: Anemia -H/H stable at 9.6/32.7 status post 2 U of PRBC administration -Consider transfusion is patient's Hgb<7 -No signs of HD compromise. -Continue monitoring H/H History of invasive ductal carcinoma of left breast -HER2+, ER+ -Patient was on chemotherapy but has continued to deny chemotherapy due to side effects since last year -CT Chest shows lymphadenopathy, possibly site of metastasis DVT prophylaxis -Continue with heparin 5000 U Q8 ID: HCAP -Afebrile, no leukocytosis -BCx negative for 24 hours -UCx: negative -MRSA: negative -Negative S. Pneumonia urine antigen, legionella urine antigen, influenza screen -Procalcitonin: 0.55 -Lactate: 0.5 -Continue with vancomycin and cefepime day 3 for possible HCAP -Monitor for signs and symptoms of infection. Patient seen and examined with Dr. Santiago - Date & Time Date: 04/13/18 Time: 09:05 <Rey Santiago - Last Filed: 04/13/18 15:27> CCU Objective - Vital Signs / Intake & Output Vital Signs (Last 4 hours): Vital Signs Temp Pulse Resp BP Pulse Ox 04/13/18 14:10 84 21 100 04/13/18 14:00 87 16 100 04/13/18 13:50 89 20 99 04/13/18 13:40 88 100 04/13/18 13:30 90 17 100 04/13/18 13:20 90 26 H 98 04/13/18 13:10 86 17 99 04/13/18 13:00 86 27 H 100 04/13/18 12:50 85 20 99 04/13/18 12:40 85 17 100 04/13/18 12:30 86 21 98 04/13/18 12:20 82 17 85 L 04/13/18 12:10 79 25 H 99 04/13/18 12:00 97.8 F 75 20 129/50 L 97 04/13/18 11:59 76 30 H 100 04/13/18 11:50 76 18 100 04/13/18 11:40 76 18 100 04/13/18 11:30 78 22 132/53 L 81 L Intake and Output (Last 8hrs): Intake & Output 04/13/18 04/13/18 04/13/18 06:59 14:59 22:59 Intake Total 325 640 Output Total 540 Balance 325 100 Intake: Oral 640 Blood Product 325 Red Blood Cells Cpd As1 325 Lr Unit [id number] Output: Urine 540 Urethral (Ray) 540 Other: # Bowel Movements 1 - Medications Active Medications: Active Medications Generic Name Dose Route Start Last Admin Trade Name Freq PRN Reason Stop Dose Admin Albuterol/Ipratropium 3 ml 04/11/18 15:53 04/13/18 12:55 Duoneb 3 Mg/0.5 Mg (3 Ml) Ud IH 3 ml Q2H PRN Administration Shortness of Breath Aspirin 81 mg 04/12/18 10:00 04/13/18 09:18 Aspirin Chewable PO 81 mg DAILY [facility] Administration Atorvastatin Calcium 40 mg 04/11/18 14:15 04/13/18 09:20 Lipitor PO 40 mg DAILY [facility] Administration Ergocalciferol 1 cap 04/11/18 16:00 04/11/18 16:07 Drisdol 50,000 Intl Units Cap PO Not Given Q7D [facility] Ferrous Gluconate 324 mg 04/13/18 10:00 04/13/18 14:13 Fergon PO 324 mg TID [facility] Administration Heparin Sodium (Porcine) 5,000 units 04/11/18 14:45 04/13/18 14:14 Heparin SC 5,000 units Q8H [facility] Administration Protocol Midazolam 100 mg/100ml in NS 100 mg in 100 mls @ 1 mls/hr 04/11/18 13:11 04/12/18 09:09 Midazolam 100 Mg/100ml In Ns IV 0 mg/hr .Q24H PRN 0 mls/hr Sedation Titration Protocol 1 MG/HR Cefepime HCl 1 gm in 100 mls @ 100 mls/hr 04/13/18 18:00 Maxipime 1gm IVPB 0600,1800 [facility] Protocol Insulin Human Lispro 0 units 04/12/18 23:00 04/13/18 12:16 Humalog High SC 7 units Q4H [facility] Administration Protocol Methylprednisolone 20 mg 04/13/18 09:45 04/13/18 09:45 Solu-Medrol IVP Not Given Q12H [facility] Metoprolol Tartrate 25 mg 04/12/18 18:00 04/13/18 09:18 Lopressor PO 25 mg BID [facility] Administration Nicotine 1 patch 04/12/18 10:00 04/13/18 09:19 Nicoderm Cq TD 1 patch DAILY [facility] Administration Pantoprazole Sodium 40 mg 04/11/18 14:45 04/13/18 09:19 Protonix Inj IVP 40 mg DAILY [facility] Administration - Patient Studies Lab Studies: Microbiology Studies 04/11/18 12:45 Blood Culture - Preliminary Blood NO GROWTH AFTER 48 HOURS 04/11/18 13:05 Blood Culture - Preliminary Blood NO GROWTH AFTER 48 HOURS 04/11/18 16:00 MRSA Culture (Admit) - Final Naris MRSA NOT DETECTED 04/11/18 14:00 Urine Culture - Final Urine Random No Growth (<1,000 CFU/ML) Lab Studies 04/13/18 04/13/18 04/12/18 Range/Units 06:10 06:10 20:02 WBC 11.3 H (4.5-11.0) 10^3/uL RBC 3.41 L (3.5-6.1) 10^6/uL Hgb 9.6 L D (12.0-16.0) g/dL Hct 32.7 L (36.0-48.0) % MCV 95.9 (80.0-105.0) fl MCH 28.2 (25.0-35.0) pg MCHC 29.4 L (31.0-37.0) g/dl RDW 21.6 H (11.5-14.5) % Plt Count 206 (120.0-450.0) 10^3/uL MPV 11.9 H (7.0-11.0) fl Sodium 147 (132-148) mmol/L Potassium 4.3 (3.6-5.0) mmol/L Chloride 106 (98-107) mmol/L Carbon Dioxide 35 H (21-33) mmol/L Anion Gap 10 (10-20) BUN 107 H (7-21) mg/dL Creatinine 2.6 H (0.7-1.2) mg/dl Est GFR ( Amer) 23 Est GFR (Non-Af Amer) 19 POC Glucose (mg/dL) 440 H* (65-110) mg/dL Random Glucose 172 H (70-110) mg/dL Calcium 8.4 (8.4-10.5) mg/dL Total Bilirubin 0.6 (0.2-1.3) mg/dL AST 36 (14-36) U/L ALT 63 H (7-56) U/L Alkaline Phosphatase 73 (38-126) U/L Total Protein 5.8 (5.8-8.3) g/dL Albumin 3.4 (3.0-4.8) g/dL Globulin 2.4 gm/dL Albumin/Globulin Ratio 1.4 (1.1-1.8) Ur Strep pneumoniae Ag (Not Detected) Blood Type Antibody Screen Crossmatch BBK History Checked 04/12/18 04/12/18 04/11/18 Range/Units 16:16 08:00 16:15 WBC (4.5-11.0) 10^3/uL RBC (3.5-6.1) 10^6/uL Hgb (12.0-16.0) g/dL Hct (36.0-48.0) % MCV (80.0-105.0) fl MCH (25.0-35.0) pg MCHC (31.0-37.0) g/dl RDW (11.5-14.5) % Plt Count (120.0-450.0) 10^3/uL MPV (7.0-11.0) fl Sodium (132-148) mmol/L Potassium (3.6-5.0) mmol/L Chloride (98-107) mmol/L Carbon Dioxide (21-33) mmol/L Anion Gap (10-20) BUN (7-21) mg/dL Creatinine (0.7-1.2) mg/dl Est GFR ( Amer) Est GFR (Non-Af Amer) POC Glucose (mg/dL) 373 H (65-110) mg/dL Random Glucose (70-110) mg/dL Calcium (8.4-10.5) mg/dL Total Bilirubin (0.2-1.3) mg/dL AST (14-36) U/L ALT (7-56) U/L Alkaline Phosphatase (38-126) U/L Total Protein (5.8-8.3) g/dL Albumin (3.0-4.8) g/dL Globulin gm/dL Albumin/Globulin Ratio (1.1-1.8) Ur Strep pneumoniae Ag Not detected (Not Detected) Blood Type B POSITIVE Antibody Screen Negative Crossmatch See Detail BBK History Checked Patient has bt Laboratory Results - last 24 hr 04/11/18 04/12/18 04/12/18 16:15 08:00 16:16 WBC RBC Hgb Hct MCV MCH MCHC RDW Plt Count MPV Sodium Potassium Chloride Carbon Dioxide Anion Gap BUN Creatinine Est GFR ( Amer) Est GFR (Non-Af Amer) POC Glucose (mg/dL) 373 H Random Glucose Calcium Total Bilirubin AST ALT Alkaline Phosphatase Total Protein Albumin Globulin Albumin/Globulin Ratio Ur Strep pneumoniae Ag Not detected Blood Type B POSITIVE Antibody Screen Negative Crossmatch See Detail BBK History Checked Patient has bt 04/12/18 04/13/18 04/13/18 20:02 06:10 06:10 WBC 11.3 H RBC 3.41 L Hgb 9.6 L D Hct 32.7 L MCV 95.9 MCH 28.2 MCHC 29.4 L RDW 21.6 H Plt Count 206 MPV 11.9 H Sodium 147 Potassium 4.3 Chloride 106 Carbon Dioxide 35 H Anion Gap 10 BUN 107 H Creatinine 2.6 H Est GFR ( Amer) 23 Est GFR (Non-Af Amer) 19 POC Glucose (mg/dL) 440 H* Random Glucose 172 H Calcium 8.4 Total Bilirubin 0.6 AST 36 ALT 63 H Alkaline Phosphatase 73 Total Protein 5.8 Albumin 3.4 Globulin 2.4 Albumin/Globulin Ratio 1.4 Ur Strep pneumoniae Ag Blood Type Antibody Screen Crossmatch BBK History Checked Critical Care Progress Note - Nutrition Nutrition: Nutrition Category Date Time Status Consistent Carbohydrate [DIET] Diets 04/13/18 Lunch Ordered Attending/Attestation - Attestation I have personally seen and examined this patient.: Yes I have fully participated in the care of the patient.: Yes I have reviewed all pertinent clinical information: Yes Notes (Text): 04/13/18 15:25 57 female with resolved HcRF, now extubated. cont nebs, steroid taper, abx, OOB to chair, optimize oral nutrition and hydration, IS, chest PT. dvt/gi prophylaxis. ok to downgrade to [facility] ccm time 40 min
--- NOTE | 2018-04-13 12:55 | PN ---
DATE: 04/13/2018 PULMONARY CRITICAL CARE PROGRESS NOTE REFERRING PHYSICIAN: Darius Rdz MD SUBJECTIVE: The patient is lying in bed. No acute distress. No overnight events reported. The patient does report having cough and shortness of breath. No headache, rhinitis, chest pain, abdominal pain, nausea, vomiting, diarrhea, leg pain or leg swelling reported. OBJECTIVE GENERAL: No acute distress. Nasal cannula in place. VITAL SIGNS: Blood pressure 123/53, pulse 76, oxygen saturation 100%, and temperature 97.5. HEENT: Moist mucous membranes. Crowded airway. NECK: Supple. No JVD. LUNGS: Decreased breath sounds in the right. Scattered rhonchi and wheezing. CARDIOVASCULAR: S1 and S2. ABDOMEN: Soft and nontender. No distention. EXTREMITIES: Bilateral lower extremity edema. NEUROLOGIC: Awake, alert and verbal. Follows commands. MEDICATIONS: Reviewed. DuoNeb 3 mL inhalation every 2 hours p.r.n., aspirin 81 mg daily, Lipitor 40 mg daily, cefepime 1 g twice a day, ergocalciferol 1 cap every 7 days, ferrous gluconate 324 mg 3 times a day, heparin 5000 units subcutaneously every 8 hours, Humalog sliding scale, Solu-Medrol 20 mg every 12 hours, metoprolol tartrate 25 mg twice a day, midazolam 100 mg 24 hours p.r.n., nicotine patch transdermally daily and Protonix 40 mg IV push daily. LABORATORY DATA: Reviewed. WBC 11.3, RBC 3.41, hemoglobin 9.6, hematocrit 39.2, and platelets 206. Sodium 147, potassium 4.3, chloride 106, carbon dioxide 35, anion gap 10, BUN 107, creatinine 2.6, GFR 19, random glucose 172, calcium 8.4, total bilirubin 0.6, AST 36, ALT 63, alkaline phosphatase 73, total protein 5.8, albumin 3.4, globulin 2.5 and albumin globulin ratio 1.4. Blood cultures preliminary no growth after 24 hours. IMPRESSION AND PLAN: Respiratory failure, atelectasis, chronic obstructive lung disease, diabetes, history of breast cancer, pneumonia, recurrent urinary tract infections, suspected sleep apnea syndrome. The patient is noncompliant with followup and medication, active smoker. Continue supplemental oxygen. The patient refuses to use bilevel positive airway pressure or continuous positive airway pressure at this time. Continue steroids, antibiotics, gastric prophylaxis, deep venous thrombosis prophylaxis. Need to monitor H and H closely, the patient has severe anemia. Renal consult and Cardiology consult. Continue pulmonary toileting and physical therapy. The patient is at high risk for respiratory failure. Critical care time spent more than 35 minutes. This patient was seen and examined with Dr. Rucker. Discussed assessment and plan as described above. Thank you for this consult and we will follow with you. Didier Dennis APN Lisa Rucker MD
--- NOTE | 2018-04-13 13:19 | PN ---
DATE: 04/13/2018 REASON FOR CONSULTATION: Followup cardiac evaluation, respiratory failure, severe anemia, extubated, status post two units of packed RBC transfusion. SUBJECTIVE: The patient denies any chest pain, shortness of breath, or any palpitation, status post extubated, feels better, concerned that she is going to live long or not. OBJECTIVE: GENERAL: Not in distress, eating breakfast. VITAL SIGNS: Temperature afebrile, heart rate 85, blood pressure 133/49. HEENT: PERRLA. Extraocular muscles intact. NECK: Supple. No carotid bruits. No thyromegaly. CHEST: Clear to auscultation. HEART: S1, S2 regular. ABDOMEN: Soft. EXTREMITIES: Clubbing, cyanosis negative. LABORATORY DATA: WBC 11.3, hemoglobin 9.2, hematocrit 32.7, platelet count 206. Chemistry shows sodium 140, potassium 4, chloride 106, carbon dioxide 35, anion gap 10, BUN 107 and creatinine 2.6. IMPRESSION: A 57-year-old female, active tobacco abuse, narcotic dependent who signed out for smoking, came back with respiratory distress, intubated, severe anemia, hemoglobin 6.6, status post packed red blood cells transfusion, now hemoglobin is 9.2, now successfully extubated. Recent echo shows preserved left ventricular function, mild mitral regurgitation, mild tricuspid regurgitation, history of renal insufficiency. RECOMMENDATIONS: Continue Lasix, continue iron supplementation, continue atorvastatin, continue beta brendon, complete cessation of smoking. Overall, the patient's condition is critical. Prognosis, residential guarded, discussed with the patient. Lisa Hernandez MD
--- NOTE | 2018-04-13 13:48 | CP.PCM.PN ---
Subjective - Date & Time of Evaluation Date of Evaluation: 04/13/18 Time of Evaluation: 12:00 - Subjective Subjective: Alert. More interactive today Objective - Vital Signs/Intake and Output Vital Signs (last 24 hours): Temp Pulse Resp BP Pulse Ox 97.8 F 75 20 129/50 L 97 04/13/18 12:00 04/13/18 12:00 04/13/18 12:00 04/13/18 12:00 04/13/18 12:00 Intake and Output: 04/13/18 04/13/18 06:59 18:59 Intake Total 325 640 Output Total 540 Balance 325 100 - Medications Medications: Current Medications Albuterol/Ipratropium (Duoneb 3 Mg/0.5 Mg (3 Ml) Ud) 3 ml IH Q2H PRN PRN Reason: Shortness of Breath Last Admin: 04/13/18 12:55 Dose: 3 ml Aspirin (Aspirin Chewable) 81 mg PO DAILY [facility] Last Admin: 04/13/18 09:18 Dose: 81 mg Atorvastatin Calcium (Lipitor) 40 mg PO DAILY [facility] Last Admin: 04/13/18 09:20 Dose: 40 mg Ergocalciferol (Drisdol 50,000 Intl Units Cap) 1 cap PO Q7D [facility] Last Admin: 04/11/18 16:07 Dose: Not Given Ferrous Gluconate (Fergon) 324 mg PO TID [facility] Last Admin: 04/13/18 09:18 Dose: 324 mg Heparin Sodium (Porcine) (Heparin) 5,000 units SC Q8H [facility]; Protocol Last Admin: 04/13/18 06:30 Dose: 5,000 units Midazolam 100 mg/100ml in NS (Midazolam 100 Mg/100ml In Ns) 100 mg in 100 mls @ 1 mls/hr IV .Q24H PRN; Protocol PRN Reason: Sedation Last Titration: 04/12/18 09:09 Dose: 0 mg/hr, 0 mls/hr Cefepime HCl (Maxipime 1gm) 1 gm in 100 mls @ 100 mls/hr IVPB 0600,1800 [facility]; Protocol Insulin Human Lispro (Humalog High) 0 units SC Q4H [facility]; Protocol Last Admin: 04/13/18 12:16 Dose: 7 units Methylprednisolone (Solu-Medrol) 20 mg IVP Q12H [facility] Last Admin: 04/13/18 09:45 Dose: Not Given Metoprolol Tartrate (Lopressor) 25 mg PO BID [facility] Last Admin: 04/13/18 09:18 Dose: 25 mg Nicotine (Nicoderm Cq) 1 patch TD DAILY [facility] Last Admin: 04/13/18 09:19 Dose: 1 patch Pantoprazole Sodium (Protonix Inj) 40 mg IVP DAILY [facility] Last Admin: 04/13/18 09:19 Dose: 40 mg - Labs Labs: 04/13/18 06:10 04/13/18 06:10 PT 11.9 SECONDS (9.4-12.5) 04/11/18 12:25 INR 1.05 04/11/18 12:25 APTT 25.3 Seconds (26.9-38.3) L 04/11/18 12:25 - Constitutional Appears: Chronically Ill - Head Exam Head Exam: NORMOCEPHALIC - Eye Exam Eye Exam: Normal appearance, PERRL - ENT Exam ENT Exam: Mucous Membranes Moist Additional comments: hard of hearing - Respiratory Exam Respiratory Exam: Decreased Breath Sounds, Wheezes - Cardiovascular Exam Cardiovascular Exam: REGULAR RHYTHM, +S1, +S2 - GI/Abdominal Exam GI & Abdominal Exam: Soft, Normal Bowel Sounds - Extremities Exam Additional comments: ulcer bilateral heels, left centeno - Back Exam Back Exam: NORMAL INSPECTION - Neurological Exam Neurological Exam: Alert Additional comments: oriented to place and self - Skin Skin Exam: Dry, Pallor Assessment and Plan - Assessment and Plan (Free Text) Assessment: 57 year old female with history of COPD, breast cancer, DM,CKD, substance abuse, who was admitted with respiratory failure,anemia, pneumonia. She is s/p intubation. Lucia Hernandez spoke with patient about transitioning to LTAC. She expressed understanding of this recommendation and was agreeable to going. We also discussed resuscitation wishes. Benefits and burdens of CPR/intubation explained. The patient states she is willing to have CPR/intubation. She stated that she does not want to be kept alive on machines if her condition is irreversible. 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 Her son Sloan was at bedside during this conversation and affirmed that these were his mother wishes. A POLST form was completed the patient Time spent with patient in goals of care and advance care planning, 30 minutes Plan: Goals of care and advance care planning Anemia: s/p II units PRBC's, stable Respiratory failure/ COPD: S/p intubation, maintain 02 sat > 92%. Continue Duonebs Pneumonia: Continue vancomycin/cefepime
--- NOTE | 2018-04-13 14:06 | CP.PCM.PN ---
Subjective - Date & Time of Evaluation Date of Evaluation: 04/13/18 Time of Evaluation: 10:00 - Subjective Subjective: Nephrology Consultation Note: Assessment: stable DAHLIA likely ATN, non-oliguric: improving acute on chronc respi acidosis with respi failure with renal compensation rt pleural effusion with chest wall mass ? 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 overall poor pro gnosis, seen by palliative care Hypertension control with meds as ordered. Maintain hemodynamics stable. Avoid hypotension. Patient not on ACEI/ARB due to recent DAHLIA, hyperkalemic tendency Monitor Input/Output, daily weights and renal function with basic metabolic panel will defer use of [place] to heme/onc in view of her recent breast malignancy with concerns for mets. PRBC as needed once stable, start iron 325 mg TID, MVI and weekly Vit D supplement lytes as needed seen by cardio heme/onc and pulmonary keep I/O even Dose meds/antibiotics for reduced GFR. Avoid fleets enema/magnesium based laxa tives. Avoid nephrotoxins/NSAIDs/ iodinated contrast (unless needed emergently) Glycemic control. pt need to stop smoking Further work up/management as per primary team Thanks for allowing me to participate in care of your patient. Will follow patient with you. Please call if any Qs. had d/w team Dr Marco Antonio Chatman Office: [phone] Chief Complaint; SOB Reason for consult: CKD 3, DAHLIA HPI: Pt is a 57 F with hx of diabetes Mellitus ( years), hypertension (years) COPD/asthma, active smoker, breast cancer s/p surgery 2 years ago but didn't complete treatment now with mets, anemia, CKD stage 3 with baseline cr 1.8 mg/dL and AKIs (peaked cr 4) admitted with acute respi distress hypercapnic respi failure and intubated/extubated, now seen for CKD management Denies OTC/herbal meds or NSAIDs No recent iodinated contrast exposure. No obvious episodes of low BP. pt was recently admitted for same and she signed out AMA. ROS: pt is a poor historian and overall hx is limited from her. SOB better. no chest pain Physical Examination: General Appearance: stable appearing. on o2 Vitals reviewed and noted as below Head; Atraumatic, normocephalic ENT: no ulcers no thrush. Tongue is midline. Oropharynx: no rash or ulcers. she is hard of hearing EYES: Pupils are equal, round and reactive to light accommodation. Eye muscles and extraocular movement intact. Sclera is anicteric. has some periorbital puffiness Neck; supple no lymphadenopathy, no thyromegaly or bruit Lungs: Improved respiratory rate/effort. Breath sounds b/l improved Heart: normal rate. s1s2 normal. No rub or gallop. Extremities: 1-2+ edema. No varicose veins Neurological: Patient is alert, awake and oriented to person, place and time. No focal deficit. Strength bilateral appropriate and equal Skin: Warm and dry. Normal turgor. No rash. Palpitation: Normal elasticity for age Abdomen: Abdomen is soft. Bowel sounds +. There is no abdominal tenderness, no guarding/rigidity no organomegaly Psych: lack insight and flat affect/mood MSK: no joint tenderness or swelling. Digits and nails normal, no deformity : kidney or bladder not palpable Labs/imaging reviewed. Past medical history, past surgical history, family history, social history, allergy reviewed and noted as below Family hx: no hx of CKD. Rest non-contributory renal imaging: b/l cysts echo normal LVEF TSAt 26% ferritin 45 Serum FLC assay WNL ABDIRIZAK neg PTH 154 Vit D 17 Objective - Vital Signs/Intake and Output Vital Signs (last 24 hours): Temp Pulse Resp BP Pulse Ox 97.8 F 75 20 129/50 L 97 04/13/18 12:00 04/13/18 12:00 04/13/18 12:00 04/13/18 12:00 04/13/18 12:00 Intake and Output: 04/13/18 04/13/18 06:59 18:59 Intake Total 325 640 Output Total 540 Balance 325 100 - Medications Medications: Current Medications Albuterol/Ipratropium (Duoneb 3 Mg/0.5 Mg (3 Ml) Ud) 3 ml IH Q2H PRN PRN Reason: Shortness of Breath Last Admin: 04/13/18 12:55 Dose: 3 ml Aspirin (Aspirin Chewable) 81 mg PO DAILY [facility] Last Admin: 04/13/18 09:18 Dose: 81 mg Atorvastatin Calcium (Lipitor) 40 mg PO DAILY [facility] Last Admin: 04/13/18 09:20 Dose: 40 mg Ergocalciferol (Drisdol 50,000 Intl Units Cap) 1 cap PO Q7D [facility] Last Admin: 04/11/18 16:07 Dose: Not Given Ferrous Gluconate (Fergon) 324 mg PO TID [facility] Last Admin: 04/13/18 09:18 Dose: 324 mg Heparin Sodium (Porcine) (Heparin) 5,000 units SC Q8H [facility]; Protocol Last Admin: 04/13/18 06:30 Dose: 5,000 units Midazolam 100 mg/100ml in NS (Midazolam 100 Mg/100ml In Ns) 100 mg in 100 mls @ 1 mls/hr IV .Q24H PRN; Protocol PRN Reason: Sedation Last Titration: 04/12/18 09:09 Dose: 0 mg/hr, 0 mls/hr Cefepime HCl (Maxipime 1gm) 1 gm in 100 mls @ 100 mls/hr IVPB 0600,1800 [facility]; Pr otocol Insulin Human Lispro (Humalog High) 0 units SC Q4H [facility]; Protocol Last Admin: 04/13/18 12:16 Dose: 7 units Methylprednisolone (Solu-Medrol) 20 mg IVP Q12H [facility] Last Admin: 04/13/18 09:45 Dose: Not Given Metoprolol Tartrate (Lopressor) 25 mg PO BID [facility] Last Admin: 04/13/18 09:18 Dose: 25 mg Nicotine (Nicoderm Cq) 1 patch TD DAILY [facility] Last Admin: 04/13/18 09:19 Dose: 1 patch Pantoprazole Sodium (Protonix Inj) 40 mg IVP DAILY [facility] Last Admin: 04/13/18 09:19 Dose: 40 mg - Labs Labs: 04/13/18 06:10 04/13/18 06:10 PT 11.9 SECONDS (9.4-12.5) 04/11/18 12:25 INR 1.05 04/11/18 12:25 APTT 25.3 Seconds (26.9-38.3) L 04/11/18 12:25
[2018-04-13] MEDS ORDERED: Oxycodone/Acetaminophen 5/325 mg Tab PO ONE (14:08)
--- NOTE | 2018-04-13 15:59 | CP.PCM.PN ---
<Aj Mays - Last Filed: 04/13/18 16:07> Subjective - Date & Time of Evaluation Date of Evaluation: 04/13/18 Time of Evaluation: 06:25 - Subjective Subjective: Pt seen and examined this morning in ICU. Per nursing, pt able to tolerate CLD. Pt given transfusion. Objective - Vital Signs/Intake and Output Vital Signs (last 24 hours): Temp Pulse Resp BP Pulse Ox 97.8 F 84 21 129/50 L 100 04/13/18 12:00 04/13/18 14:10 04/13/18 14:10 04/13/18 12:00 04/13/18 14:10 Intake and Output: 04/13/18 04/13/18 06:59 18:59 Intake Total 325 640 Output Total 540 Balance 325 100 - Medications Medications: Current Medications Albuterol/Ipratropium (Duoneb 3 Mg/0.5 Mg (3 Ml) Ud) 3 ml IH Q2H PRN PRN Reason: Shortness of Breath Last Admin: 04/13/18 12:55 Dose: 3 ml Aspirin (Aspirin Chewable) 81 mg PO DAILY [facility] Last Admin: 04/13/18 09:18 Dose: 81 mg Atorvastatin Calcium (Lipitor) 40 mg PO DAILY [facility] Last Admin: 04/13/18 09:20 Dose: 40 mg Ergocalciferol (Drisdol 50,000 Intl Units Cap) 1 cap PO Q7D [facility] Last Admin: 04/11/18 16:07 Dose: Not Given Ferrous Gluconate (Fergon) 324 mg PO TID [facility] Last Admin: 04/13/18 14:13 Dose: 324 mg Heparin Sodium (Porcine) (Heparin) 5,000 units SC Q8H [facility]; Protocol Last Admin: 04/13/18 14:14 Dose: 5,000 units Midazolam 100 mg/100ml in NS (Midazolam 100 Mg/100ml In Ns) 100 mg in 100 mls @ 1 mls/hr IV .Q24H PRN; Protocol PRN Reason: Sedation Last Titration: 04/12/18 09:09 Dose: 0 mg/hr, 0 mls/hr Cefepime HCl (Maxipime 1gm) 1 gm in 100 mls @ 100 mls/hr IVPB 0600,1800 [facility]; Protocol Insulin Human Lispro (Humalog High) 0 units SC Q4H [facility]; Protocol Last Admin: 04/13/18 12:16 Dose: 7 units Methylprednisolone (Solu-Medrol) 20 mg IVP Q12H [facility] Last Admin: 04/13/18 09:45 Dose: Not Given Metoprolol Tartrate (Lopressor) 25 mg PO BID [facility] Last Admin: 04/13/18 09:18 Dose: 25 mg Nicotine (Nicoderm Cq) 1 patch TD DAILY [facility] Last Admin: 04/13/18 09:19 Dose: 1 patch Pantoprazole Sodium (Protonix Inj) 40 mg IVP DAILY [facility] Last Admin: 04/13/18 09:19 Dose: 40 mg - Labs Labs: 04/13/18 06:10 04/13/18 06:10 PT 11.9 SECONDS (9.4-12.5) 04/11/18 12:25 INR 1.05 04/11/18 12:25 APTT 25.3 Seconds (26.9-38.3) L 04/11/18 12:25 - Constitutional Appears: No Acute Distress - Head Exam Head Exam: ATRAUMATIC, NORMOCEPHALIC - Eye Exam Eye Exam: EOMI - ENT Exam ENT Exam: Mucous Membranes Moist - Neck Exam Neck Exam: Full ROM - Respiratory Exam Respiratory Exam: Clear to Ausculation Bilateral, NORMAL BREATHING PATTERN. absent: Accessory Muscle Use, Respiratory Distress - Cardiovascular Exam Cardiovascular Exam: RRR, +S1, +S2. absent: Diastolic murmur - GI/Abdominal Exam GI & Abdominal Exam: Soft, Normal Bowel Sounds. absent: Tenderness - Extremities Exam Extremities Exam: Full ROM. absent: Calf Tenderness, Pedal Edema - Neurological Exam Neurological Exam: Alert, Awake, Oriented x3 - Psychiatric Exam Psychiatric exam: Normal Affect, Normal Mood - Skin Skin Exam: Dry, Normal Color, Warm Assessment and Plan - Assessment and Plan (Free Text) Assessment: Pt is a 57yo female with a PMH of COPD, asthma, breast Ca, anxiety, DM, recurrent UTIs who [place] [facility] [place] to smoke a cigarette. Pt was brought in my medics to the ED. Pt was then placed on CPAP and she was given duonebs. Plan: Acute Hypercapnic Respiratory Failure - pt admitted to the ICU, pt extubated today - PCO2 55, PO2 69, HCO3 36.5, pH 7.43 - Pulm consulted, Dr Chaim PNA - strep pneumo not detected, legionella NEGATIVE, MRSA NEGATIVE, blood cultures NGTD - procal 0.55 - continue cefepime - Chest CT: decrease in the RLL consolidation. chronic area of scarring or consolidation in right lung apex - ID consulted, possible right sided HAP COPD - IV methylprednisolone 20mg IVP Q12 - duonebs Asthma - duonebs DAHLIA - BUN 107 - CR 2.6 - nephrology consulted, Dr Chatman rec no need for renal replacement at this time Breast Ca - Palliative care, goals of care and advance care planning DM - accuchecks q6 - SSI med HLD - lipitor Ppx - heparin - protonix Dispo: pt accepted to LTAC, currently being processed. Pt seen, examined, assessment and plan discussed with Dr Kajal Mays PGY1, Internal Medicine Resident <Darius Rdz - Last Filed: 04/14/18 18:10> Objective - Vital Signs/Intake and Output Vital Signs (last 24 hours): Temp Pulse Resp BP Pulse Ox 98.3 F 93 H 25 H 123/51 L 95 04/14/18 00:00 04/14/18 17:13 04/14/18 15:20 04/14/18 17:13 04/14/18 15:20 Intake and Output: 04/14/18 04/14/18 06:59 18:59 Intake Total 340 Output Total 400 Balance -60 - Medications Medications: Current Medications Acetylcysteine (Acetylcysteine 20%) 4 ml IH BIDRESP [facility] Albuterol/Ipratropium (Duoneb 3 Mg/0.5 Mg (3 Ml) Ud) 3 ml IH Q2H PRN PRN Reason: Shortness of Breath Last Admin: 04/14/18 15:26 Dose: 3 ml Arformoterol Tartrate (Brovana) 15 mcg IH [id number] [facility] Aspirin (Aspirin Chewable) 81 mg PO DAILY [facility] Last Admin: 04/14/18 09:48 Dose: 81 mg Atorvastatin Calcium (Lipitor) 40 mg PO DAILY [facility] Last Admin: 04/14/18 09:45 Dose: 40 mg Budesonide (Pulmicort Respules) 0.5 mg IH [id number] [facility] Ergocalciferol (Drisdol 50,000 Intl Units Cap) 1 cap PO Q7D [facility] Last Admin: 04/11/18 16:07 Dose: Not Given Ferrous Gluconate (Fergon) 324 mg PO TID [facility] Last Admin: 04/14/18 17:12 Dose: 324 mg Heparin Sodium (Porcine) (Heparin) 5,000 units SC Q8H [facility]; Protocol Last Admin: 04/14/18 15:00 Dose: 5,000 units Midazolam 100 mg/100ml in NS (Midazolam 100 Mg/100ml In Ns) 100 mg in 100 mls @ 1 mls/hr IV .Q24H [facility]; Protocol PRN Reason: Sedation Last Titration: 04/12/18 09:09 Dose: 0 mg/hr, 0 mls/hr Cefepime HCl (Maxipime 1gm) 1 gm in 100 mls @ 100 mls/hr IVPB 0600,1800 [facility]; Protocol Last Admin: 04/14/18 17:52 Dose: 100 mls/hr Insulin Human Lispro (Humalog High) 0 units SC ACHS [facility]; Protocol Last Admin: 04/14/18 17:36 Dose: 12 u Methylprednisolone (Solu-Medrol) 20 mg IVP Q12H [facility] Last Admin: 04/14/18 09:44 Dose: 20 mg Metoprolol Tartrate (Lopressor) 25 mg PO BID [facility] Last Admin: 04/14/18 17:13 Dose: 25 mg Nicotine (Nicoderm Cq) 1 patch TD DAILY [facility] Last Admin: 04/14/18 09:43 Dose: 1 patch Pantoprazole Sodium (Protonix Inj) 40 mg IVP DAILY [facility] Last Admin: 04/14/18 09:47 Dose: 40 mg - Labs Labs: 04/14/18 05:00 04/14/18 05:00 PT 11.9 SECONDS (9.4-12.5) 04/11/18 12:25 INR 1.05 04/11/18 12:25 APTT 25.3 Seconds (26.9-38.3) L 04/11/18 12:25 Attending/Attestation - Attestation I have personally seen and examined this patient.: Yes I have fully participated in the care of the patient.: Yes I have reviewed all pertinent clinical information, including history, physical exam and plan: Yes Notes (Text): 04/14/18 18:00 Attending note; Patient seen and examined with resident. Patient is currently extubated. On high flow oxygen. Taper to oxygen nasal cannula. Tolerating liquid diet. Patient is a 57-year-old female with a PMH of COPD, asthma, breast Ca, not treated, anemia, anxiety, DM, recurrent UTIs who [place] [facility] [place] Is admitted for respiratory failure. 1. Acute hypercapnic respiratory failure; patient with a history of long- standing COPD. Patient actively smokes. Currently extubated on high flow oxygen. Taper to oxygen nasal cannula as tolerated. Continue albuterol and Brovana. Pulmonary evaluation appreciated. 2. Healthcare associated Pneumonia; chest x-ray shows right lower lobe infiltrate with possible effusion. CT chest showed decreased right lower lobe consolidation and pleural effusion. Also showed calcification of the left upper breast needs mammographic evaluation. On IV cefepime. ID evaluation appreciated. got IV vancomycin 3. Anemia; patient has chronic anemia. Status post 2 unit PRBC transfusion. Hemoglobin is stable. 4. History of breast cancer; did not completed treatment. Needs close outpatient follow-up. 5. Hypertension; continue metoprolol, aspirin.cardiology evaluation appreciated. Cardiac enzymes negative. 6. Active smoking. Complete smoking cessation is strongly advised. Started on N icoDerm patch. 7. Chronic kidney disease; creatinine is stable at 2.5. Nephrology evaluation appreciated. Case discussed with social security specialist in detail. Possible LTAC placement in process. Palliative care evaluation appreciated. Patient is full code. Prognosis is poor secondary to multiple medical problems and noncompliance with follow-up. Upon discharge the patient will follow up with PMD Dr. Sosa. Case discussed with PMD in detail.
[2018-04-14] MEDS: Insulin Lispro (HUMAlog) HIGH Coverage SC SCH ×5 (00:15→22:27)
[2018-04-14] MEDS: Albuterol-Ipratrop 3 mg / 0.5 (3 ml) UD IH PRN ×5 (02:15→23:43)
[2018-04-14 05:55] LABS: HEMOGLOBIN 9.9 g/dL (12.0-16.0); MEAN CELL VOLUME 96.6 fl (80.0-105.0); MEAN CORPUSCULAR HGB CONC 28.9 g/dl (31.0-37.0); MEAN PLATELET VOLUME 11.2 fl (7.0-11.0); RBC 3.54 10^6/uL (3.5-6.1); WHITE BLOOD COUNT 10.3 10^3/uL (4.5-11.0)
[2018-04-14 06:10] LABS: ALB/GLOB RATIO 1.4 (1.1-1.8); ALBUMIN 3.5 g/dL (3.0-4.8)
[2018-04-14] MEDS: Cefepime 1gm in NS 100ml 1 GM/100 ML BAG IVPB SCH ×2 (06:20→17:52)
[2018-04-14] MEDS: MethylPREDNISolone 40 mg Vial IVP SCH ×2 (09:44→22:26)
--- NOTE | 2018-04-14 10:26 | PN ---
DATE: 04/14/2018 PULMONARY CRITICAL CARE PROGRESS NOTE REFERRING PHYSICIAN: Dr. Rdz. SUBJECTIVE: The patient is lying in bed. No acute distress. No overnight events reported. The patient still has some coughing and shortness of breath, but feels slightly better. No headache, rhinitis, chest pain, abdominal pain, nausea, vomiting, diarrhea, leg pain reported. OBJECTIVE: GENERAL: No acute distress. Nasal cannula in place. VITAL SIGNS: Blood pressure 128/53, pulse 84, oxygen saturation 100. HEENT: Moist mucous membranes. Crowded airway. NECK: Supple. No JVD. LUNGS: Decreased breath sounds on the right. Scattered rhonchi bilaterally. CARDIOVASCULAR: S1 and S2. ABDOMEN: Soft and nontender. No distention. EXTREMITIES: Bilateral lower extremity edema, trace. NEUROLOGIC: Awake, alert, and verbal. Follows commands. MEDICATIONS: Reviewed. DuoNeb 3 mL inhalation every 2 hours p.r.n., aspirin 81 mg daily, Lipitor 40 mg daily, cefepime 1 g twice a day, ergocalciferol 50,000 units every seven days, ferrous gluconate 324 mg three times a day, heparin 5000 units subcu every 8 hours, Humalog sliding scale every 4 hours, Solu-Medrol 20 mg every 12 hours, Lopressor 25 mg twice a day, midazolam 100 mg every 24 hours p.r.n., nicotine patch transdermal daily, Protonix 40 mg daily. LABORATORY DATA: Reviewed. WBC 10.3, RBC 3.54, hemoglobin 9.9, hematocrit 34.2, and platelets 203. Sodium 145, potassium 4.5, chloride 105, carbon dioxide 35, anion gap 10, BUN 107, creatinine 2.5, GFR 20, POC glucose 308, random glucose 292, calcium 8. Total bilirubin 0.5, AST 28, ALT 69, alkaline phosphatase 81, total protein , albumin 3.5, globulin 2.4, albumin globulin ratio 1.4. Blood cultures preliminary. No growth after 48 hours. IMPRESSION AND PLAN: Respiratory failure, atelectasis, chronic obstructive lung disease, diabetes, history of breast cancer, pneumonia, recurrent urinary tract infection, obstructive sleep apnea syndrome. The patient has been noncompliant with followup and medications in the past. Active smoker. Continue supplemental oxygen at this time. Refuses to use bilevel positive airway pressure or continuous positive airway pressure at this time. Continue to encourage use of sleep apnea precaution. Head of bed elevated to 45 degrees. Continue steroid, antibiotics, gastric prophylaxis, and deep venous thrombosis prophylaxis. Renal and Cardiology followup. Continue pulmonary toileting. The patient is at high risk for respiratory failure. Fall precautions. We will order incentive spirometer. Follow up labs in the morning. The patient was seen and examined with Dr. Rucker. Discussed assessment and plan as described above. Thank you for this consult. We will follow with you. Didier Dennis APN Lisa Rucker MD
--- NOTE | 2018-04-14 12:04 | PN ---
DATE: 04/14/2018 SUBJECTIVE: The patient is in bed in no acute distress, nontoxic on exam. The patient is seen earlier in [facility], bed 6, comfortable, uneventful night. She remains extubated. No fevers. PHYSICAL EXAMINATION: VITAL SIGNS: Temperature is 98, blood pressure is 128/53, respiratory rate of 18, heart rate of 82. HEENT: Unremarkable. NECK: Supple. LUNGS: Have decreased breath sounds. HEART: Normal S1, S2. ABDOMEN: Soft, nontender. LABORATORY DATA: Reveals the white count to be 10,300, hemoglobin of 9, platelets of 203. Coagulation is noted. Chemistries reveals a BUN of 107, creatinine of 2.5. Urinalysis is noted and Legionella is negative. Urine strep antigen is negative. Influenza is negative. Microbiology reveals the cultures for nasal MRSA is negative. Urine cultures, negative. Blood cultures are negative. Review of the orders reveals the patient is on cefepime, prednisone. Cefepime was started by Dr. Santiago. Camryn Mills's note is reviewed and appreciated. ASSESSMENT AND PLAN: This is a 57-year-old female, history of breast cancer, severe end-stage chronic obstructive lung disease, anxiety, pneumonia, pleural effusion, kidney disease, presented with respiratory failure, healthcare-associated pneumonia, now extubated, on intermittent vancomycin and cefepime, normal white count and mildly elevated procalcitonin of 20 to 30 in phase of a creatinine of 2.5 with negative blood cultures, negative urine cultures, negative methicillin-resistant staphylococcus aureus screen. The patient is doing well. The patient had a chest x-ray. Review of orders reveals the patient had started antibiotics on the 04/11/2018, 04/12/2018, 04/13/2018, and today is day #4 of cefepime. We will be discontinuing the antibiotics within the next 24 hours. Prasanth Malcolm MD
--- NOTE | 2018-04-14 12:37 | CP.PCM.PN ---
<Julio César Damico - Last Filed: 04/14/18 13:06> Subjective - Date & Time of Evaluation Date of Evaluation: 04/14/18 Time of Evaluation: 12:31 - Subjective Subjective: Julio César Damico D.O. PGY-3, Internal Medicine Resident, Hospitalist Progress Note 57 year old female with a PMH of Breast CA, asthma, COPD, anxiety, DM, and a right pleural effusion who presented with acute hypercapnic respiratory failure. Patient was seen and examined at bedside. Patient states that she had a tough time sleeping. Wants to get cleaned up and start becoming more physically active as well as stop smoking. No acute overnight events. Objective - Vital Signs/Intake and Output Vital Signs (last 24 hours): Temp Pulse Resp BP Pulse Ox 98.3 F 86 29 H 141/68 79 L 04/14/18 00:00 04/14/18 12:20 04/14/18 12:20 04/14/18 12:00 04/14/18 12:20 Intake and Output: 04/14/18 04/14/18 06:59 18:59 Intake Total 340 Output Total 400 Balance -60 - Medications Medications: Current Medications Acetylcysteine (Acetylcysteine 20%) 4 ml IH BIDRESP [facility] Albuterol/Ipratropium (Duoneb 3 Mg/0.5 Mg (3 Ml) Ud) 3 ml IH Q2H PRN PRN Reason: Shortness of Breath Last Admin: 04/14/18 10:40 Dose: 3 ml Arformoterol Tartrate (Brovana) 15 mcg IH [id number] [facility] Aspirin (Aspirin Chewable) 81 mg PO DAILY [facility] Last Admin: 04/14/18 09:48 Dose: 81 mg Atorvastatin Calcium (Lipitor) 40 mg PO DAILY [facility] Last Admin: 04/14/18 09:45 Dose: 40 mg Budesonide (Pulmicort Respules) 0.5 mg IH [id number] [facility] Ergocalciferol (Drisdol 50,000 Intl Units Cap) 1 cap PO Q7D [facility] Last Admin: 04/11/18 16:07 Dose: Not Given Ferrous Gluconate (Fergon) 324 mg PO TID [facility] Last Admin: 04/14/18 09:48 Dose: 324 mg Heparin Sodium (Porcine) (Heparin) 5,000 units SC Q8H [facility]; Protocol Last Admin: 04/14/18 05:44 Dose: 5,000 units Midazolam 100 mg/100ml in NS (Midazolam 100 Mg/100ml In Ns) 100 mg in 100 mls @ 1 mls/hr IV .Q24H PRN; Protocol PRN Reason: Sedation Last Titration: 04/12/18 09:09 Dose: 0 mg/hr, 0 mls/hr Cefepime HCl (Maxipime 1gm) 1 gm in 100 mls @ 100 mls/hr IVPB 0600,1800 [facility]; Protocol Last Admin: 04/14/18 06:20 Dose: 100 mls/hr Insulin Human Lispro (Humalog High) 0 units SC ACHS [facility]; Protocol Methylprednisolone (Solu-Medrol) 20 mg IVP Q12H [facility] Last Admin: 04/14/18 09:44 Dose: 20 mg Metoprolol Tartrate (Lopressor) 25 mg PO BID [facility] Last Admin: 04/14/18 09:46 Dose: 25 mg Nicotine (Nicoderm Cq) 1 patch TD DAILY [facility] Last Admin: 04/14/18 09:43 Dose: 1 patch Pantoprazole Sodium (Protonix Inj) 40 mg IVP DAILY [facility] Last Admin: 04/14/18 09:47 Dose: 40 mg - Labs Labs: 04/14/18 05:00 04/14/18 05:00 PT 11.9 SECONDS (9.4-12.5) 04/11/18 12:25 INR 1.05 04/11/18 12:25 APTT 25.3 Seconds (26.9-38.3) L 04/11/18 12:25 - Constitutional Appears: Obese, pleasant, No Acute Distress - Head Exam Head Exam: ATRAUMATIC, NORMOCEPHALIC - Eye Exam Eye Exam: EOMI - ENT Exam ENT Exam: Mucous Membranes Moist - Neck Exam Neck Exam: Soft, supple - Respiratory Exam Respiratory Exam: Clear to Ausculation Bilateral, absent: Accessory Muscle Use, Respiratory Distress - Cardiovascular Exam Cardiovascular Exam: RRR, +S1, +S2. absent: Diastolic murmur - GI/Abdominal Exam GI & Abdominal Exam: Soft, Normal Bowel Sounds. absent: Tenderness - Extremities Exam Extremities Exam: Full ROM. absent: Calf Tenderness, Pedal Edema - Neurological Exam Neurological Exam: Alert, Awake, Oriented x4, hard to understand at times but not dysarthric - Skin Skin Exam: Dry, Normal Color, Warm Assessment and Plan - Assessment and Plan (Free Text) Assessment: 57 year old female with a PMH of Breast CA, asthma, COPD, anxiety, DM, and a right pleural effusion who presented with acute hypercapnic respiratory failure. Plan: 1. Acute Hypercapnic Respiratory Failure in the setting of asthma and COPD Extubated, respiratory status improved Likely 2/2 tobacco use in the setting of her known asthma and COPD Pulm Dr Rucker following, recs appreciated Cont duonebs Cont solumedrol 20q12 2. HAP Strep pneumo not detected, legionella negative, MRSA negative, blood cultures NGTD Procal 0.55 Cont cefepime D2 ID following 3. DAHLIA on CKD Likely ATN in setting of diabetic and hypertensive chronic kidney disease Improving Nephrology following 4. Breast Ca Palliative care, goals of care and advance care planning 5. DM Cont accuchecks q6 and RISS 6. HLD Cont lipitor 7. HTN Cont metoprolol 8. Tobacco abuse Counseled, patient states that she will quit cold turkey Cont nicotine patch Ppx: heparin/protonix Dispo: pt accepted to LTAC, currently being processed Patient was seen and examined and case was discussed at length during rounds with attending physician Dr. Kajal Horner <Darius Rdz - Last Filed: 04/14/18 18:11> Objective - Vital Signs/Intake and Output Vital Signs (last 24 hours): Temp Pulse Resp BP Pulse Ox 98.3 F 93 H 25 H 123/51 L 95 04/14/18 00:00 04/14/18 17:13 04/14/18 15:20 04/14/18 17:13 04/14/18 15:20 Intake and Output: 04/14/18 04/14/18 06:59 18:59 Intake Total 340 Output Total 400 Balance -60 - Medications Medications: Current Medications Acetylcysteine (Acetylcysteine 20%) 4 ml IH BIDRESP [facility] Albuterol/Ipratropium (Duoneb 3 Mg/0.5 Mg (3 Ml) Ud) 3 ml IH Q2H PRN PRN Reason: Shortness of Breath Last Admin: 04/14/18 15:26 Dose: 3 ml Arformoterol Tartrate (Brovana) 15 mcg IH [id number] [facility] Aspirin (Aspirin Chewable) 81 mg PO DAILY [facility] Last Admin: 04/14/18 09:48 Dose: 81 mg Atorvastatin Calcium (Lipitor) 40 mg PO DAILY [facility] Last Admin: 04/14/18 09:45 Dose: 40 mg Budesonide (Pulmicort Respules) 0.5 mg IH [id number] [facility] Ergocalciferol (Drisdol 50,000 Intl Units Cap) 1 cap PO Q7D [facility] Last Admin: 04/11/18 16:07 Dose: Not Given Ferrous Gluconate (Fergon) 324 mg PO TID [facility] Last Admin: 04/14/18 17:12 Dose: 324 mg Heparin Sodium (Porcine) (Heparin) 5,000 units SC Q8H [facility]; Protocol Last Admin: 04/14/18 15:00 Dose: 5,000 units Midazolam 100 mg/100ml in NS (Midazolam 100 Mg/100ml In Ns) 100 mg in 100 mls @ 1 mls/hr IV .Q24H PRN; Protocol PRN Reason: Sedation Last Titration: 04/12/18 09:09 Dose: 0 mg/hr, 0 mls/hr Cefepime HCl (Maxipime 1gm) 1 gm in 100 mls @ 100 mls/hr IVPB 0600,1800 [facility]; Protocol Last Admin: 04/14/18 17:52 Dose: 100 mls/hr Insulin Human Lispro (Humalog High) 0 units SC ACHS [facility]; Protocol Last Admin: 04/14/18 17:36 Dose: 12 u Methylprednisolone (Solu-Medrol) 20 mg IVP Q12H [facility] Last Admin: 04/14/18 09:44 Dose: 20 mg Metoprolol Tartrate (Lopressor) 25 mg PO BID [facility] Last Admin: 04/14/18 17:13 Dose: 25 mg Nicotine (Nicoderm Cq) 1 patch TD DAILY [facility] Last Admin: 04/14/18 09:43 Dose: 1 patch Pantoprazole Sodium (Protonix Inj) 40 mg IVP DAILY [facility] Last Admin: 04/14/18 09:47 Dose: 40 mg - Labs Labs: 04/14/18 05:00 04/14/18 05:00 PT 11.9 SECONDS (9.4-12.5) 04/11/18 12:25 INR 1.05 04/11/18 12:25 APTT 25.3 Seconds (26.9-38.3) L 04/11/18 12:25 Attending/Attestation - Attestation I have personally seen and examined this patient.: Yes I have fully participated in the care of the patient.: Yes I have reviewed all pertinent clinical information, including history, physical exam and plan: Yes Notes (Text): 04/14/18 18:10 Attending note; Patient seen and examined with resident. Lying in bed. Complaining of generalized weakness. Currently on oxygen nasal cannula. Wants to sit in the chair. Tolerating diet well. Complaining of exertional shortness of breath. Patient is a 57-year-old female with a PMH of COPD, asthma, breast Ca, not treated, anemia, anxiety, DM, recurrent UTIs who left [facility] yesterday AMA Is admitted for respiratory failure. 1. Acute hypercapnic respiratory failure; patient with a history of long- standing COPD. Patient actively smokes. Taper to oxygen nasal cannula as tolerated. Continue albuterol and Brovana. Pulmonary evaluation appreciated. 2. Healthcare associated Pneumonia; chest x-ray shows right lower lobe infiltrate with possible effusion. CT chest showed decreased right lower lobe consolidation and pleural effusion. Also showed calcification of the left upper breast needs mammographic evaluation. On IV cefepime. ID evaluation appreciated. got IV vancomycin. 3. Anemia; patient has chronic anemia. Status post 2 unit PRBC transfusion. Hemoglobin is stable. 4. History of breast cancer; did not completed treatment. Needs close outpatient follow-up. 5. Hypertension; continue metoprolol, aspirin.cardiology evaluation appreciated. Cardiac enzymes negative. 6. Active smoking. Complete smoking cessation is strongly advised. Started on N icoDerm patch. 7. Chronic kidney disease; creatinine is stable at 2.5. Nephrology evaluation appreciated. Case discussed with adoption social worker in detail. Possible LTAC placement in process. Pending authorization. Palliative care evaluation appreciated. Patient is full code. Prognosis is poor secondary to multiple medical problems and noncompliance with follow-up. Upon discharge the patient will follow up with PMD Dr. Sosa. Case discussed with PMD in detail. 04/14/18 18:11
--- NOTE | 2018-04-14 13:36 | PN ---
DATE: 04/14/2018 REASON FOR CONSULTATION: Followup cardiac evaluation, respiratory failure, severe anemia, extubated, status post two units of packed RBC transfused. SUBJECTIVE: The patient denies any chest pain, shortness of breath, or any palpitation. OBJECTIVE: GENERAL: Not in apparent distress. VITAL SIGNS: Temperature afebrile, heart rate 88, blood pressure 133/46. HEENT: PERRLA. Extraocular muscles intact. NECK: Supple. No carotid bruits. No thyromegaly. CHEST: Clear to auscultation. HEART: S1, S2 regular. ABDOMEN: Soft. EXTREMITIES: Clubbing, cyanosis negative. LABORATORY DATA: As follows, WBC 10.3, hemoglobin 9.9, hematocrit 34.2, platelet count 203. Chemistry shows sodium 145, potassium 4.5, chloride 105, carbon dioxide 35, anion gap 10, BUN 107 and creatinine 2.5. IMPRESSION: A 57-year-old female, active tobacco abuse, history of chronic obstructive pulmonary disease, who recently signed out against medical advice, came back again with respiratory distress, intubated, and hemoglobin 6.6, status post two units of packed red blood cells transfused, now hemoglobin is around 9 and stable, successfully extubated. Recent echo shows preserved left ventricular function, mild mitral regurgitation, mild tricuspid regurgitation, history of renal insufficiency. RECOMMENDATIONS: Continue iron supplementation, continue aspirin , continue beta brendon, continue atorvastatin, continue diuretics. Continue treatment of COPD. We will follow with you. Overall, the patient's condition is critical. Long-term prognosis is guarded. The patient should be in complete cessation of smoking and abstinence and compliance with the medication. Thank you Dr. Rdz for providing us the opportunity in taking care of the patient, Yazmin Granado. Lisa Hernandez MD
[2018-04-14] MEDS ORDERED: Oxycodone/Acetaminophen 5/325 mg Tab PO STA (14:26)
--- NOTE | 2018-04-14 17:26 | CP.PCM.PN ---
Subjective - Date & Time of Evaluation Date of Evaluation: 04/14/18 Time of Evaluation: 17:26 - Subjective Subjective: Assessment: stable DAHLIA likely ATN, non-oliguric stable rt pleural effusion with chest wall mass ? 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 overall poor prognosis Hypertension control with meds as ordered. Patient not on ACEI/ARB due to recent DAHLIA, hyperkalemic tendency Monitor Input/Output will defer use of [place] to heme/onc in view of her recent breast malignancy with concerns for mets. PRBC as needed Physical Examination: General Appearance: stable appearing Vitals reviewed and noted Head; Atraumatic, normocephalic ENT: no ulcers she is hard of hearing EYES: Eye muscles and extraocular movement intact. Sclera is anicteric. Neck; supple Lungs: Improved respiratory rate/effort. Breath sounds b/l improved Heart: normal rate. s1s2 normal Extremities: 1-2+ edema. Neurological: Patient is alert, awake and oriented to person, place and time. No focal deficit. Strength bilateral appropriate and equal Skin: Warm and dry. Abdomen: Abdomen is soft. Bowel sounds +. There is no abdominal tenderness, no guarding/rigidity no organomegaly . Objective - Vital Signs/Intake and Output Vital Signs (last 24 hours): Temp Pulse Resp BP Pulse Ox 98.3 F 93 H 25 H 123/51 L 95 04/14/18 00:00 04/14/18 17:13 04/14/18 15:20 04/14/18 17:13 04/14/18 15:20 Intake and Output: 04/14/18 04/14/18 06:59 18:59 Intake Total 340 Output Total 400 Balance -60 - Medications Medications: Current Medications Acetylcysteine (Acetylcysteine 20%) 4 ml IH BIDRESP [facility] Albuterol/Ipratropium (Duoneb 3 Mg/0.5 Mg (3 Ml) Ud) 3 ml IH Q2H PRN PRN Reason: Shortness of Breath Last Admin: 04/14/18 15:26 Dose: 3 ml Arformoterol Tartrate (Brovana) 15 mcg IH [id number] [facility] Aspirin (Aspirin Chewable) 81 mg PO DAILY [facility] Last Admin: 04/14/18 09:48 Dose: 81 mg Atorvastatin Calcium (Lipitor) 40 mg PO DAILY [facility] Last Admin: 04/14/18 09:45 Dose: 40 mg Budesonide (Pulmicort Respules) 0.5 mg IH [id number] [facility] Ergocalciferol (Drisdol 50,000 Intl Units Cap) 1 cap PO Q7D [facility] Last Admin: 04/11/18 16:07 Dose: Not Given Ferrous Gluconate (Fergon) 324 mg PO TID [facility] Last Admin: 04/14/18 17:12 Dose: 324 mg Heparin Sodium (Porcine) (Heparin) 5,000 units SC Q8H [facility]; Protocol Last Admin: 04/14/18 15:00 Dose: 5,000 units Midazolam 100 mg/100ml in NS (Midazolam 100 Mg/100ml In Ns) 100 mg in 100 mls @ 1 mls/hr IV .Q24H [facility]; Protocol PRN Reason: Sedation Last Titration: 04/12/18 09:09 Dose: 0 mg/hr, 0 mls/hr Cefepime HCl (Maxipime 1gm) 1 gm in 100 mls @ 100 mls/hr IVPB 0600,1800 [facility]; Protocol Last Admin: 04/14/18 06:20 Dose: 100 mls/hr Insulin Human Lispro (Humalog High) 0 units SC ACHS [facility]; Protocol Last Admin: 04/14/18 12:30 Dose: 7 u Methylprednisolone (Solu-Medrol) 20 mg IVP Q12H [facility] Last Admin: 04/14/18 09:44 Dose: 20 mg Metoprolol Tartrate (Lopressor) 25 mg PO BID [facility] Last Admin: 04/14/18 17:13 Dose: 25 mg Nicotine (Nicoderm Cq) 1 patch TD DAILY [facility] Last Admin: 04/14/18 09:43 Dose: 1 patch Pantoprazole Sodium (Protonix Inj) 40 mg IVP DAILY [facility] Last Admin: 04/14/18 09:47 Dose: 40 mg - Labs Labs: 04/14/18 05:00 04/14/18 05:00 PT 11.9 SECONDS (9.4-12.5) 04/11/18 12:25 INR 1.05 04/11/18 12:25 APTT 25.3 Seconds (26.9-38.3) L 04/11/18 12:25
--- NOTE | 2018-04-14 17:45 | PN ---
DATE: 04/14/2018 This is a [facility] visit in Intensive Care Unit. For Dr. Gleason. SUBJECTIVE: The patient is a 57-year-old female seen sitting up in the Intensive Care Unit, status post intubation for respiratory failure with known history of breast cancer, chronic kidney disease, anemia of chronic disease. At present, the patient is for transfer from the Intensive Care Unit once a bed is available and she appears to be in no acute distress. She continues to be treated for healthcare associated pneumonia with good effect. OBJECTIVE: VITAL SIGNS: Temperature 98.3, pulse 88, respirations 17, blood pressure 133/46, and pulse oximetry 100%. HEENT: She has poor hearing, otherwise unremarkable. NECK: Supple. HEART: Decreased breath sounds in the right. LUNGS: Occasional rhonchi. ABDOMEN: Obese, soft, and nontender. EXTREMITIES: +1 edema of the feet bilaterally. NEUROLOGIC: Awake and alert and again with decreased hearing. LABORATORY DATA: The patient's labs were done. White blood cell count of 10.3, hemoglobin 9.9, improved from 6.6 two days prior at the transfusion of 2 units of packed red blood cells with good effect. Her hematocrit is 34.2, platelet count is 203,000. Her metabolic panel showing a BUN of 107 with a creatinine of 2.5. Nonfasting glucose 308, calcium was 8, ALT of 68, otherwise normal metabolic panel. ASSESSMENT: 1. Pneumonia. 2. Respiratory failure, status post intubation and extubation. 3. Chronic obstructive pulmonary disease. 4. Diabetes mellitus. 5. History of breast cancer. 6. Anemia of chronic disease. 7. Chronic anxiety. 8. Chronic back pain. PLAN: The plan for this patient is to continue close medical regimen as per senior compensation consultant's recommendations with the patient to be transferred as per her attending with monitoring clinically and with labs. This is a complex patient with a comprehensive medically necessary and appropriate visit carried out in excess of 25 minutes with the patient's questions answered to her satisfaction. Juan Jose Valles MD
[2018-04-14] MEDS: Budesonide 0.5 mg/2 ml Inhal Susp UD IH SCH (20:06)
[2018-04-14] MEDS: Acetylcysteine 20% Inhal Soln (4ml) IH SCH (20:06)
[2018-04-14] MEDS: Arformoterol 15 mcg/2 ml Inh Sol IH SCH (20:06)
[2018-04-14] MEDS ORDERED: Oxycodone/Acetaminophen 5/325 mg Tab PO ONE (22:46)
[2018-04-15] MEDS: Albuterol-Ipratrop 3 mg / 0.5 (3 ml) UD IH PRN ×5 (03:25→18:53)
[2018-04-15] MEDS: Cefepime 1gm in NS 100ml 1 GM/100 ML BAG IVPB SCH (06:48)
[2018-04-15 06:56] LABS: HEMOGLOBIN 9.3 g/dL (12.0-16.0); MEAN CELL VOLUME 96.9 fl (80.0-105.0); MEAN CORPUSCULAR HEMOGLOBIN 28.4 pg (25.0-35.0); MEAN CORPUSCULAR HGB CONC 29.3 g/dl (31.0-37.0); MEAN PLATELET VOLUME 11.2 fl (7.0-11.0); RBC 3.27 10^6/uL (3.5-6.1); RED CELL DISTRIBUTION WIDTH 20.2 % (11.5-14.5); WHITE BLOOD COUNT 11.4 10^3/uL (4.5-11.0)
[2018-04-15] MEDS: Arformoterol 15 mcg/2 ml Inh Sol IH SCH ×2 (07:06→19:30)
[2018-04-15] MEDS: Budesonide 0.5 mg/2 ml Inhal Susp UD IH SCH ×2 (07:06→19:30)
[2018-04-15] MEDS: Acetylcysteine 20% Inhal Soln (4ml) IH SCH ×2 (07:06→19:30)
[2018-04-15 07:28] LABS: ALB/GLOB RATIO 1.4 (1.1-1.8); ALBUMIN 3.2 g/dL (3.0-4.8); CALCIUM 7.6 mg/dL (8.4-10.5)
--- NOTE | 2018-04-15 07:56 | CP.PCM.PN ---
Subjective - Date & Time of Evaluation Date of Evaluation: 04/15/18 Time of Evaluation: 06:35 - Subjective Subjective: Awake, alert, no distress Reason for consultation and follow up:Cardiac evaluation of shortness of breath, respiratory failure requiring intubation and admitted to ICU, post extubation, history of COPD, asthma, breast cancer. Seen and examined by me and Dr. Hernandez Objective - Vital Signs/Intake and Output Vital Signs (last 24 hours): Temp Pulse Resp BP Pulse Ox 97.8 F 92 H 18 148/88 97 04/14/18 22:01 04/14/18 22:01 04/14/18 22:01 04/14/18 22:01 04/14/18 22:01 Intake and Output: 04/15/18 04/15/18 06:59 18:59 Intake Total 100 Output Total 600 Balance -600 100 - Medications Medications: Current Medications Acetylcysteine (Acetylcysteine 20%) 4 ml IH BIDRESP [facility] Last Admin: 04/15/18 07:06 Dose: 4 ml Albuterol/Ipratropium (Duoneb 3 Mg/0.5 Mg (3 Ml) Ud) 3 ml IH Q2H PRN PRN Reason: Shortness of Breath Last Admin: 04/15/18 07:06 Dose: 3 ml Arformoterol Tartrate (Brovana) 15 mcg IH [id number] [facility] Last Admin: 04/15/18 07:06 Dose: 15 mcg Aspirin (Aspirin Chewable) 81 mg PO DAILY [facility] Last Admin: 04/14/18 09:48 Dose: 81 mg Atorvastatin Calcium (Lipitor) 40 mg PO DAILY [facility] Last Admin: 04/14/18 09:45 Dose: 40 mg Budesonide (Pulmicort Respules) 0.5 mg IH [id number] [facility] Last Admin: 04/15/18 07:06 Dose: 0.5 mg Ergocalciferol (Drisdol 50,000 Intl Units Cap) 1 cap PO Q7D [facility] Last Admin: 04/11/18 16:07 Dose: Not Given Ferrous Gluconate (Fergon) 324 mg PO TID [facility] Last Admin: 04/14/18 17:12 Dose: 324 mg Heparin Sodium (Porcine) (Heparin) 5,000 units SC Q8H [facility]; Protocol Last Admin: 04/15/18 06:49 Dose: 5,000 units Midazolam 100 mg/100ml in NS (Midazolam 100 Mg/100ml In Ns) 100 mg in 100 mls @ 1 mls/hr IV .Q24H [facility]; Protocol PRN Reason: Sedation Last Titration: 04/12/18 09:09 Dose: 0 mg/hr, 0 mls/hr Cefepime HCl (Maxipime 1gm) 1 gm in 100 mls @ 100 mls/hr IVPB 0600,1800 [facility]; Protocol Last Admin: 04/15/18 06:48 Dose: 100 mls/hr Insulin Human Lispro (Humalog High) 0 units SC ACHS [facility]; Protocol Last Admin: 04/14/18 22:27 Dose: 3 u Methylprednisolone (Solu-Medrol) 20 mg IVP Q12H [facility] Last Admin: 04/14/18 22:26 Dose: 20 mg Metoprolol Tartrate (Lopressor) 25 mg PO BID [facility] Last Admin: 04/14/18 17:13 Dose: 25 mg Nicotine (Nicoderm Cq) 1 patch TD DAILY [facility] Last Admin: 04/14/18 09:43 Dose: 1 patch Pantoprazole Sodium (Protonix Inj) 40 mg IVP DAILY [facility] Last Admin: 04/14/18 09:47 Dose: 40 mg - Labs Labs: 04/15/18 06:00 04/15/18 06:00 PT 11.9 SECONDS (9.4-12.5) 04/11/18 12:25 INR 1.05 04/11/18 12:25 APTT 25.3 Seconds (26.9-38.3) L 04/11/18 12:25 - Constitutional Appears: Non-toxic, No Acute Distress - Head Exam Head Exam: NORMAL INSPECTION, NORMOCEPHALIC - Eye Exam Eye Exam: Normal appearance Pupil Exam: NORMAL ACCOMODATION - ENT Exam ENT Exam: Mucous Membranes Moist, Normal Exam - Respiratory Exam Respiratory Exam: Decreased Breath Sounds, Clear to Ausculation Bilateral, Rhonchi, NORMAL BREATHING PATTERN - Cardiovascular Exam Cardiovascular Exam: +S1, +S2 - GI/Abdominal Exam GI & Abdominal Exam: Soft, Normal Bowel Sounds - Extremities Exam Extremities Exam: Full ROM, Normal Capillary Refill - Neurological Exam Neurological Exam: Alert, Awake, Oriented x3 - Psychiatric Exam Psychiatric exam: Normal Affect, Normal Mood - Skin Skin Exam: Dry, Normal Color, Warm Assessment and Plan - Assessment and Plan (Free Text) Assessment: A 57 year old female, who was brought to the ER due to respiratory distress requiring intubation and admitted to ICU. History of chronic obstructive pulmonary disease, still actively smokes,1 PPD x 40 years, asthma, breast cancer with chemo 06/2015, anxiety,depression, chronic back pain, diabetes, and recurrent urinary tract infection. She signed out against medical advice because she wanted to smoke. Prior to this admission diagnosed with for sepsis and hypercapnia and exacerbation of COPD. Low hemoglobin on admission and transfused 2 units of PRBC. Stabilized in ICU, extubated. Clinically stable and now transferred to Medical unit. Recent echo 03/09/18 showed LVEF 62%-mild MR/TR. Cardiac status stable. Stable hemoglobin/hematocrit. Smoking cessation. Plan: No distress, denies shortness of breath Blood pressure controlled Heart rate controlled On ASA 81 mg daily,Lipitor 40 mg daily,Solumedrol 20 mg daily, Lopressor 25 mg BID, Nicoderm patch daily Continue current medications Continue current treatment Smoking cessation Pulmonary on consult Will follow up Plan and treatment discussed with Dr. Hernandez
[2018-04-15] MEDS: Insulin Lispro (HUMAlog) HIGH Coverage SC SCH ×4 (08:23→22:47)
--- NOTE | 2018-04-15 09:29 | PN ---
DATE: 04/15/2018 PULMONARY PROGRESS NOTE REFERRING PHYSICIAN: Darius Rdz MD SUBJECTIVE: The patient is lying in bed. No acute distress. No overnight events reported. The patient has occasional cough. Reports shortness of breath is improved. No headache, rhinitis, chest pain, abdominal pain, nausea, vomiting, diarrhea or leg pain reported. OBJECTIVE: GENERAL: No acute distress. VITAL SIGNS: Blood pressure 148/88, pulse 92, temperature 97.8, oxygen saturation 97% on nasal cannula. HEENT: Moist mucous membranes. Crowded airway. NECK: Supple. No JVD. LUNGS: Decreased breath sounds on the right. Scattered rhonchi. CARDIOVASCULAR: S1 and S2. ABDOMEN: Soft and nontender. No distention. EXTREMITIES: Bilateral lower extremity edema. NEUROLOGIC: Awake, alert, and verbal. Follows commands. MEDICATIONS: Reviewed. Mucomyst 4 mL inhalation twice a day, DuoNeb 3 mL inhalation every 2 hours p.r.n., Brovana 15 mcg every 12 hours, aspirin 81 mg daily, Lipitor 40 mg daily, Pulmicort every 12 hours, cefepime 1 g twice a day, ergocalciferol 50,000 units every 7 days, ferrous gluconate 324 mg 3 times a day, heparin 5000 units subcutaneously every 8 hours, Humalog sliding scale a.c. and at bedtime, Solu-Medrol 20 mg every 12 hours, Lopressor 25 mg twice a day, midazolam 100 mg every 24 hours p.r.n. nicotine patch transdermally daily, Protonix 40 mg daily. LABORATORY DATA: Reviewed. WBC 11.4, RBC 3.27, hemoglobin 9.3, hematocrit 31.7, and platelets 167. Sodium 146, potassium 4.6, chloride 104, carbon dioxide 32, anion gap 11, BUN 100, creatinine 2.6, GFR 19, POC glucose 294, random glucose 322, calcium 7.6, total bilirubin 0.5, AST 23, ALT 64, alkaline phosphatase 92, total protein 5.5, albumin 3.2, globulin 2.3, albumin globulin ratio 1.4. IMPRESSION AND PLAN: Respiratory failure, atelectasis, chronic obstructive lung disease, diabetes, history of breast cancer, pneumonia, recurrent urinary tract infection, obstructive sleep apnea syndrome. The patient has history of noncompliant with followup and medications in the past. Active smoker. Refuses to use bilevel positive airway pressure or continuous positive airway pressure at this time. Continue sleep apnea precaution. Head of bed elevated to 45 degrees. Continue steroid, antibiotics, gastric prophylaxis, and deep venous thrombosis prophylaxis. Continue supplemental oxygen. Continue pulmonary toileting. The patient is at high risk for respiratory failure. Fall precautions. Continue incentive spirometer use. This patient was seen and examined with Dr. Rucker. Discussed assessment and plan as described above. Thank you for this consult and we will follow with you. Didier Dennis APN Lisa Rucker MD SAADIA
[2018-04-15] MEDS: MethylPREDNISolone 40 mg Vial IVP SCH ×2 (09:51→22:51)
[2018-04-15] MEDS ORDERED: Oxycodone/Acetaminophen 5/325 mg Tab PO STA (12:06)
--- NOTE | 2018-04-15 13:30 | CP.PCM.PN ---
<Emma Carbajal - Last Filed: 04/15/18 13:21> Subjective - Date & Time of Evaluation Date of Evaluation: 04/15/18 Time of Evaluation: 13:21 - Subjective Subjective: INTERNAL MEDICINE PROGRESS NOTE FOR DR. DANAE Carbajal PGY1 Pt seen and examined at bedside this am. Pt resting on 5L humidified NC. 12 point ROS negative Objective - Vital Signs/Intake and Output Vital Signs (last 24 hours): Temp Pulse Resp BP Pulse Ox 97.8 F 95 H 17 138/56 L 97 04/15/18 07:00 04/15/18 09:51 04/15/18 07:00 04/15/18 09:51 04/15/18 07:00 Intake and Output: 04/15/18 04/15/18 06:59 18:59 Intake Total 100 Output Total 600 Balance -600 100 - Medications Medications: Current Medications Acetylcysteine (Acetylcysteine 20%) 4 ml IH BIDRESP [facility] Last Admin: 04/15/18 07:06 Dose: 4 ml Albuterol/Ipratropium (Duoneb 3 Mg/0.5 Mg (3 Ml) Ud) 3 ml IH Q2H PRN PRN Reason: Shortness of Breath Last Admin: 04/15/18 10:32 Dose: 3 ml Arformoterol Tartrate (Brovana) 15 mcg IH [id number] [facility] Last Admin: 04/15/18 07:06 Dose: 15 mcg Aspirin (Aspirin Chewable) 81 mg PO DAILY [facility] Last Admin: 04/15/18 09:51 Dose: 81 mg Atorvastatin Calcium (Lipitor) 40 mg PO DAILY [facility] Last Admin: 04/15/18 09:51 Dose: 40 mg Budesonide (Pulmicort Respules) 0.5 mg IH [id number] [facility] Last Admin: 04/15/18 07:06 Dose: 0.5 mg Ergocalciferol (Drisdol 50,000 Intl Units Cap) 1 cap PO Q7D [facility] Last Admin: 04/11/18 16:07 Dose: Not Given Ferrous Gluconate (Fergon) 324 mg PO TID [facility] Last Admin: 04/15/18 09:52 Dose: 324 mg Heparin Sodium (Porcine) (Heparin) 5,000 units SC Q8H [facility]; Protocol Last Admin: 04/15/18 06:49 Dose: 5,000 units Midazolam 100 mg/100ml in NS (Midazolam 100 Mg/100ml In Ns) 100 mg in 100 mls @ 1 mls/hr IV .Q24H PRN; Protocol PRN Reason: Sedation Last Titration: 04/12/18 09:09 Dose: 0 mg/hr, 0 mls/hr Insulin Human Lispro (Humalog High) 0 units SC ACHS [facility]; Protocol Last Admin: 04/15/18 12:18 Dose: 10 u Methylprednisolone (Solu-Medrol) 20 mg IVP Q12H [facility] Last Admin: 04/15/18 09:51 Dose: 20 mg Metoprolol Tartrate (Lopressor) 25 mg PO BID [facility] Last Admin: 04/15/18 09:51 Dose: 25 mg Nicotine (Nicoderm Cq) 1 patch TD DAILY [facility] Last Admin: 04/15/18 09:52 Dose: 1 patch Pantoprazole Sodium (Protonix Inj) 40 mg IVP DAILY [facility] Last Admin: 04/15/18 09:52 Dose: 40 mg - Labs Labs: 04/15/18 06:00 04/15/18 06:00 PT 11.9 SECONDS (9.4-12.5) 04/11/18 12:25 INR 1.05 04/11/18 12:25 APTT 25.3 Seconds (26.9-38.3) L 04/11/18 12:25 - Constitutional Appears: Well, Non-toxic, No Acute Distress - Head Exam Head Exam: NORMAL INSPECTION, NORMOCEPHALIC - Eye Exam Eye Exam: Normal appearance - ENT Exam ENT Exam: Mucous Membranes Moist, Normal Exam - Neck Exam Neck Exam: Normal Inspection - Respiratory Exam Respiratory Exam: Clear to Ausculation Bilateral, NORMAL BREATHING PATTERN - Cardiovascular Exam Cardiovascular Exam: REGULAR RHYTHM, +S1, +S2 - GI/Abdominal Exam GI & Abdominal Exam: Soft. absent: Tenderness - Extremities Exam Extremities Exam: Normal Inspection. absent: Calf Tenderness - Back Exam Back Exam: NORMAL INSPECTION - Neurological Exam Neurological Exam: Alert, Awake, Oriented x3 - Psychiatric Exam Psychiatric exam: Normal Affect, Normal Mood - Skin Skin Exam: Dry, Intact, Warm Assessment and Plan - Assessment and Plan (Free Text) Assessment: 57 year old female with a PMH of Breast CA, asthma, COPD, anxiety, DM, and a right pleural effusion who presented with acute hypercapnic respiratory failure, subsequently extubated and transferred to medicine floors Plan: Acute Hypercapnic Respiratory Failure in the setting of asthma and COPD Respiratory status improved, resting on 5L NC Likely 2/2 tobacco use in the setting of her known asthma and COPD Continue duonebs Continue solumedrol 20q12 Pulm, following, appreciat recs HCAP Strep pneumo not detected, legionella negative, MRSA negative, blood cultures NGTD Procal 0.55 Continue cefepime D2 ID following DAHLIA on CKD Likely ATN in setting of diabetic and hypertensive chronic kidney disease Improving Nephrology following Breast Ca Palliative care, goals of care and advance care planning DM Cont accuchecks q6 and ISS HLD Cont lipitor HTN Cont metoprolol Tobacco abuse Counseled, patient states that she will quit Continue nicotine patch Ppx: heparin/protonix Dispo: pt accepted to LTAC, placement in process, pending auth. Prognosis is guarded d/t multiple comorbidities and noncompliance Case seen, examined and discussed with attending physician, Dr. Danae Carbajal PGY1 <Darius Rdz - Last Filed: 04/15/18 13:52> Objective - Vital Signs/Intake and Output Vital Signs (last 24 hours): Temp Pulse Resp BP Pulse Ox 97.8 F 95 H 17 138/56 L 97 04/15/18 07:00 04/15/18 09:51 04/15/18 07:00 04/15/18 09:51 04/15/18 07:00 Intake and Output: 04/15/18 04/15/18 06:59 18:59 Intake Total 100 Output Total 600 Balance -600 100 - Medications Medications: Current Medications Acetylcysteine (Acetylcysteine 20%) 4 ml IH BIDRESP [facility] Last Admin: 04/15/18 07:06 Dose: 4 ml Albuterol/Ipratropium (Duoneb 3 Mg/0.5 Mg (3 Ml) Ud) 3 ml IH Q2H PRN PRN Reason: Shortness of Breath Last Admin: 04/15/18 10:32 Dose: 3 ml Arformoterol Tartrate (Brovana) 15 mcg IH [id number] [facility] Last Admin: 04/15/18 07:06 Dose: 15 mcg Aspirin (Aspirin Chewable) 81 mg PO DAILY [facility] Last Admin: 04/15/18 09:51 Dose: 81 mg Atorvastatin Calcium (Lipitor) 40 mg PO DAILY [facility] Last Admin: 04/15/18 09:51 Dose: 40 mg Budesonide (Pulmicort Respules) 0.5 mg IH [id number] [facility] Last Admin: 04/15/18 07:06 Dose: 0.5 mg Ergocalciferol (Drisdol 50,000 Intl Units Cap) 1 cap PO Q7D [facility] Last Admin: 04/11/18 16:07 Dose: Not Given Ferrous Gluconate (Fergon) 324 mg PO TID [facility] Last Admin: 04/15/18 09:52 Dose: 324 mg Heparin Sodium (Porcine) (Heparin) 5,000 units SC Q8H [facility]; Protocol Last Admin: 04/15/18 06:49 Dose: 5,000 units Midazolam 100 mg/100ml in NS (Midazolam 100 Mg/100ml In Ns) 100 mg in 100 mls @ 1 mls/hr IV .Q24H PRN; Protocol PRN Reason: Sedation Last Titration: 04/12/18 09:09 Dose: 0 mg/hr, 0 mls/hr Insulin Human Lispro (Humalog High) 0 units SC ACHS [facility]; Protocol Last Admin: 04/15/18 12:18 Dose: 10 u Methylprednisolone (Solu-Medrol) 20 mg IVP Q12H [facility] Last Admin: 04/15/18 09:51 Dose: 20 mg Metoprolol Tartrate (Lopressor) 25 mg PO BID [facility] Last Admin: 04/15/18 09:51 Dose: 25 mg Nicotine (Nicoderm Cq) 1 patch TD DAILY [facility] Last Admin: 04/15/18 09:52 Dose: 1 patch Pantoprazole Sodium (Protonix Inj) 40 mg IVP DAILY [facility] Last Admin: 04/15/18 09:52 Dose: 40 mg - Labs Labs: 04/15/18 06:00 04/15/18 06:00 PT 11.9 SECONDS (9.4-12.5) 04/11/18 12:25 INR 1.05 04/11/18 12:25 APTT 25.3 Seconds (26.9-38.3) L 04/11/18 12:25 Attending/Attestation - Attestation I have personally seen and examined this patient.: Yes I have fully participated in the care of the patient.: Yes I have reviewed all pertinent clinical information, including history, physical exam and plan: Yes Notes (Text): 04/15/18 13:49 Attending note; Patient seen and examined with resident. Patient is on oxygen 5 L nasal cannula. Lying in bed. Complaining of generalized weakness. Complaining of exertional shortness of breath. Complaining of not able to walk/asking for help. Patient is a 57-year-old female with a PMH of COPD, asthma, breast Ca, not treated, anemia, anxiety, DM, recurrent UTIs who left [facility] yesterday AMA Is admitted for respiratory failure. 1. Acute hypercapnic respiratory failure; patient with a history of long- standing COPD. Patient actively smokes. Currently on oxygen nasal cannula . Continue albuterol and Brovana. Pulmonary evaluation appreciated. 2. Healthcare associated Pneumonia; chest x-ray shows right lower lobe infiltrate with possible effusion. CT chest showed decreased right lower lobe consolidation and pleural effusion. Also showed calcification of the left upper breast needs mammographic evaluation. Treated with IV cefepime. ID evaluation appreciated. 3. Anemia; patient has chronic anemia. Status post 2 unit PRBC transfusion. Hemoglobin is stable. 4. History of breast cancer; did not completed treatment. Needs close outpatient follow-up. 5. Hypertension; continue metoprolol, aspirin.cardiology evaluation appreciated. Cardiac enzymes negative. 6. Active smoking. Complete smoking cessation is strongly advised. Started on NicoDerm patch. 7. Chronic kidney disease; creatinine is stable at 2.6. Nephrology evaluation appreciated. Case discussed with social work job titles in detail. Possible LTAC placement in process. Pending authorization. Physical therapy evaluation requested. Palliative care evaluation appreciated. Patient is full code. Prognosis is poor secondary to multiple medical problems and noncompliance with follow-up. Upon discharge the patient will follow up with PMD Dr. Soas.
--- NOTE | 2018-04-15 17:54 | PN ---
DATE: 04/15/2018 SUBJECTIVE: The patient is seen in bed, in no acute distress, and nontoxic. OBJECTIVE: VITAL SIGNS: Temperature is 98, blood pressure is 120/70, and respiratory rate of 16. HEENT: Unremarkable. NECK: Supple. LUNGS: Have decreased breath sounds. HEART: Normal S1 and S2. ABDOMEN: Soft. LABORATORY DATA: Reveals a white count of 11,400 and hemoglobin is 9. Chemistries are noted. REVIEW OF ORDERS: Reveals the patient to be on cefepime. ASSESSMENT AND PLAN: This is a 57-year-old female with a history of breast cancer, severe end-stage chronic obstructive lung disease, anxiety, pneumonia, pleural effusion, kidney disease, respiratory failure, healthcare-associated pneumonia and now extubated on intermittent vancomycin and cefepime, today is day #5. We will discontinue the cefepime. No further antibiotics at this point. Prasanth Malcolm MD
[2018-04-15 19:18] LABS: OPIATES, UR NEGATIVE (NEGATIVE)
[2018-04-15 19:21] LABS: BARBITURATES, UR NEGATIVE (NEGATIVE); BENZODIAZEPINES, UR POSITIVE (NEGATIVE); PHENCYCLIDINE, UR NEGATIVE (NEGATIVE)
[2018-04-16] MEDS ORDERED: Oxycodone/Acetaminophen 5/325 mg Tab PO STA (00:05)
[2018-04-16 06:52] LABS: HEMOGLOBIN 9.4 g/dL (12.0-16.0); MEAN CELL VOLUME 97.9 fl (80.0-105.0); MEAN CORPUSCULAR HEMOGLOBIN 28.3 pg (25.0-35.0); MEAN CORPUSCULAR HGB CONC 28.9 g/dl (31.0-37.0); MEAN PLATELET VOLUME 11.9 fl (7.0-11.0); RBC 3.32 10^6/uL (3.5-6.1); RED CELL DISTRIBUTION WIDTH 20.2 % (11.5-14.5)
[2018-04-16 07:18] LABS: ALB/GLOB RATIO 1.4 (1.1-1.8); ALBUMIN 3.2 g/dL (3.0-4.8); CALCIUM 7.8 mg/dL (8.4-10.5)
[2018-04-16] MEDS: Budesonide 0.5 mg/2 ml Inhal Susp UD IH SCH ×2 (07:44→19:51)
[2018-04-16] MEDS: Arformoterol 15 mcg/2 ml Inh Sol IH SCH ×2 (07:44→19:51)
[2018-04-16] MEDS: Acetylcysteine 20% Inhal Soln (4ml) IH SCH ×2 (07:44→19:51)
[2018-04-16] MEDS: Albuterol-Ipratrop 3 mg / 0.5 (3 ml) UD IH PRN ×3 (07:44→16:28)
[2018-04-16] MEDS: Insulin Lispro (HUMAlog) HIGH Coverage SC SCH ×3 (08:18→17:23)
--- NOTE | 2018-04-16 09:25 | CP.PCM.PN ---
<Rubio Piedra - Last Filed: 04/16/18 13:39> Subjective - Date & Time of Evaluation Date of Evaluation: 04/16/18 Time of Evaluation: 09:22 - Subjective Subjective: PGY-2 heme/onc progress note for Dr Gleason No acute events noted overnight. Patient stated she is going home today no matter what. Would not answer my questions. Objective - Vital Signs/Intake and Output Vital Signs (last 24 hours): Temp Pulse Resp BP Pulse Ox 98.7 F 95 H 20 126/55 L 95 04/15/18 20:49 04/15/18 20:49 04/15/18 20:49 04/15/18 20:49 04/15/18 20:49 Intake and Output: 04/16/18 04/16/18 06:59 18:59 Output Total 600 Balance -600 - Medications Medications: Current Medications Acetylcysteine (Acetylcysteine 20%) 4 ml IH BIDRESP [facility] Last Admin: 04/16/18 07:44 Dose: 4 ml Albuterol/Ipratropium (Duoneb 3 Mg/0.5 Mg (3 Ml) Ud) 3 ml IH Q2H PRN PRN Reason: Shortness of Breath Last Admin: 04/16/18 07:44 Dose: 3 ml Arformoterol Tartrate (Brovana) 15 mcg IH [id number] [facility] Last Admin: 04/16/18 07:44 Dose: 15 mcg Aspirin (Aspirin Chewable) 81 mg PO DAILY [facility] Last Admin: 04/15/18 09:51 Dose: 81 mg Atorvastatin Calcium (Lipitor) 40 mg PO DAILY [facility] Last Admin: 04/15/18 09:51 Dose: 40 mg Budesonide (Pulmicort Respules) 0.5 mg IH [id number] [facility] Last Admin: 04/16/18 07:44 Dose: 0.5 mg Ergocalciferol (Drisdol 50,000 Intl Units Cap) 1 cap PO Q7D [facility] Last Admin: 04/11/18 16:07 Dose: Not Given Ferrous Gluconate (Fergon) 324 mg PO TID [facility] Last Admin: 04/15/18 17:07 Dose: 324 mg Heparin Sodium (Porcine) (Heparin) 5,000 units SC Q8H [facility]; Protocol Last Admin: 04/16/18 05:45 Dose: 5,000 units Insulin Human Lispro (Humalog High) 0 units SC ACHS [facility]; Protocol Last Admin: 04/16/18 08:18 Dose: Not Given Methylprednisolone (Solu-Medrol) 20 mg IVP Q12H [facility] Last Admin: 04/15/18 22:51 Dose: 20 mg Metoprolol Tartrate (Lopressor) 25 mg PO BID [facility] Last Admin: 04/15/18 17:08 Dose: Not Given Nicotine (Nicoderm Cq) 1 patch TD DAILY [facility] Last Admin: 04/15/18 09:52 Dose: 1 patch Pantoprazole Sodium (Protonix Inj) 40 mg IVP DAILY [facility] Last Admin: 04/15/18 09:52 Dose: 40 mg Paroxetine HCl (Paxil) 5 mg PO HS [facility] - Labs Labs: 04/16/18 06:00 04/16/18 06:00 PT 11.9 SECONDS (9.4-12.5) 04/11/18 12:25 INR 1.05 04/11/18 12:25 APTT 25.3 Seconds (26.9-38.3) L 04/11/18 12:25 - Additional Findings Additional findings: - Constitutional Appears: No Acute Distress, Older Than Stated Age - Head Exam Head Exam: ATRAUMATIC, NORMAL INSPECTION - Eye Exam Eye Exam: EOMI, Normal appearance, PERRL. absent: Scleral icterus - ENT Exam ENT Exam: Mucous Membranes Moist - Respiratory Exam Respiratory Exam: Decreased Breath Sounds, Rales Additional comments: rales R>L - Cardiovascular Exam Cardiovascular Exam: Tachycardia, REGULAR RHYTHM, +S1, +S2. absent: JVD - GI/Abdominal Exam GI & Abdominal Exam: Normal Bowel Sounds, Soft. absent: Tenderness - Extremities Exam Extremities exam: Positive for: normal capillary refill, normal inspection, pedal pulses present - Neurological Exam Neurological exam: Alert, Oriented x3 - Psychiatric Exam Psychiatric exam: Anxious - Skin Skin Exam: Normal Color, Warm Assessment and Plan - Assessment and Plan (Free Text) Plan: Mrs Granado is a 57 year old female with a PMHx history of breast cancer, severe COPD, anxiety, pneumonia, pleural effusions, CKD, xanax abuse, hx of non- compliance, hx of xanax/oxycodone overose, who presented to the ED in respiratory distress while on non-rebreather. Patient was then intubated while in ED due to lack of airway protection. Hematology/oncology has been consulted for anemia and her hx of left-sided breast cancer. Anemia -likely anemia of chronic disease 2/2 to ckd -Hgb on admission: 7.3 -> today 9.4 * chronically anemic since 02/2017 * transfused 2u pRBCs on 04/12/18 -recent admission 03/31/18 there were orders for iron studies, retic count, peripheral smear, B12, folate * retic count: 1.72, B12: 476, folate: 17, iron: 44, TIBC 213, %sat: 21, ferritin: 206, MCV: 96, LDH: 561 -has received erythropoetin in the past for anemia due to renal disease * CKD 3 and now with ADHLIA -recent admission 03/31/18 there were orders for epo level, immunofixation, spep, LDH * epo 22.8 (mildly high) * ABDIRIZAK and SPEP -> selective protein loss pattern, suggestive of nephrotic syndro me -1 dose of darbapoetin 40mcg sc on 04/06/18 - we will continue this once a week * darbopoetin 40mcg sc given on 04/13/18 -ferrous gluconate 324mg po qd now discontinued -recommend to continue darbapoetin injections outpatient, recommend 2 more injections over the next 2 weeks 7 days apart and then recommend to be re- evaluated by heme/onc physician Hx L breast cancer (Dx 2016) invasive ductal carcinoma -ER+/HER2+ -Got 1 cycle of sandee-adjuvant chemo. After that, refuse chemo/surgery. -CT chest w/o contrast showed lymphadenopathy suspicious for tumor * etiology could be malignancy, infectious, inflammatory * repeat CT 1 month after current episode has resolved Dispo: patient accepted to LTAC Seen and discussed with Dr Gleason <Melanie Gleason P - Last Filed: 04/20/18 21:57> Objective - Vital Signs/Intake and Output Vital Signs (last 24 hours): Temp Pulse Resp BP Pulse Ox 98.1 F 93 H 18 147/54 L 96 04/20/18 21:37 04/20/18 21:37 04/20/18 21:37 04/20/18 21:37 04/20/18 21:37 Intake and Output: 04/20/18 04/21/18 18:59 06:59 Intake Total 860 Output Total 400 Balance 460 - Medications Medications: Current Medications Albuterol Sulfate (Albuterol 0.083% Inhal Elvie (2.5 Mg/3 Ml) Ud) 2.5 mg INH [id number] [facility] Last Admin: 04/20/18 13:45 Dose: 2.5 mg Albuterol/Ipratropium (Duoneb 3 Mg/0.5 Mg (3 Ml) Ud) 3 ml IH Q2H PRN PRN Reason: Shortness of Breath Last Admin: 04/19/18 15:34 Dose: 3 ml Arformoterol Tartrate (Brovana) 15 mcg IH [id number] [facility] Last Admin: 04/20/18 07:55 Dose: Not Given Aspirin (Aspirin Chewable) 81 mg PO DAILY [facility] Last Admin: 04/20/18 09:08 Dose: 81 mg Atorvastatin Calcium (Lipitor) 40 mg PO DAILY [facility] Last Admin: 04/20/18 09:08 Dose: 40 mg Bacitracin (Bacitracin) 0 gm TOP BID [facility] Last Admin: 04/20/18 17:27 Dose: 1 applic Benzocaine/Menthol (Cepacol Sore Throat) 1 vy MT Q4H PRN PRN Reason: Sore Throat Last Admin: 04/20/18 21:49 Dose: 1 vy Budesonide (Pulmicort Respules) 0.5 mg IH [id number] [facility] Last Admin: 04/20/18 07:55 Dose: Not Given Dextrose (Dextrose 50% Inj) 0 ml IV STAT PRN; Protocol PRN Reason: Hypoglycemia Protocol Ergocalciferol (Drisdol 50,000 Intl Units Cap) 1 cap PO Q7D [facility] Last Admin: 04/18/18 17:45 Dose: 1 cap Ferrous Gluconate (Fergon) 324 mg PO DAILY [facility] Furosemide (Lasix) 40 mg IVP DAILY [facility] Last Admin: 04/20/18 09:13 Dose: 40 mg Heparin Sodium (Porcine) (Heparin) 5,000 units SC Q8 [facility]; Protocol Last Admin: 04/20/18 21:50 Dose: 5,000 units Dextrose (Dextrose 5% In Water 1000 Ml) 1,000 mls @ 0 mls/hr IV .Q0M PRN; Protocol PRN Reason: Hypoglycemia Protocol Insulin Detemir (Levemir) 10 unit SC HS [facility] Last Admin: 04/20/18 21:50 Dose: 10 units Insulin Human Lispro (Humalog Low) 0 units SC ACHS [facility]; Protocol Last Admin: 04/20/18 21:50 Dose: 4 units Metoprolol Tartrate (Lopressor) 25 mg PO BID [facility] Last Admin: 04/20/18 17:22 Dose: 25 mg Nicotine (Nicoderm Cq) 1 patch TD DAILY [facility] Last Admin: 04/20/18 09:14 Dose: 1 patch Pantoprazole Sodium (Protonix Ec Tab) 40 mg PO ACB [facility] Last Admin: 04/20/18 09:09 Dose: 40 mg Paroxetine HCl (Paxil) 5 mg PO HS [facility] Last Admin: 04/20/18 21:48 Dose: 5 mg Prednisone (Prednisone Tab) 40 mg PO DAILY [facility] Last Admin: 04/20/18 09:09 Dose: 40 mg Vitamin B Complex/Vit C/Folic Acid (Nephro-Enrrique) 1 tab PO 0800 [facility] Last Admin: 04/20/18 09:08 Dose: 1 tab - Labs Labs: 04/20/18 07:20 04/20/18 07:20 PT 11.9 SECONDS (9.4-12.5) 04/11/18 12:25 INR 1.05 04/11/18 12:25 APTT 25.3 Seconds (26.9-38.3) L 04/11/18 12:25 Attending/Attestation - Attestation I have personally seen and examined this patient.: Yes I have fully participated in the care of the patient.: Yes I have reviewed all pertinent clinical information, including history, physical exam and plan: Yes
--- NOTE | 2018-04-16 10:41 | CP.PCM.PN ---
<Leonidas Guardado - Last Filed: 04/16/18 13:36> Subjective - Date & Time of Evaluation Date of Evaluation: 04/16/18 Time of Evaluation: 09:30 - Subjective Subjective: Infectious disease progress note: Pt seen and examined at bedside. No acute events overnight. C/o of mild sob and wheezing. No other complaints. 12 Point ROS neg other than stated above Objective - Vital Signs/Intake and Output Vital Signs (last 24 hours): Temp Pulse Resp BP Pulse Ox 98.6 F 97 H 17 142/63 96 04/16/18 06:00 04/16/18 06:00 04/16/18 06:00 04/16/18 06:00 04/16/18 06:00 Intake and Output: 04/16/18 04/16/18 06:59 18:59 Output Total 600 Balance -600 - Medications Medications: Current Medications Acetylcysteine (Acetylcysteine 20%) 4 ml IH BIDRESP [facility] Last Admin: 04/16/18 07:44 Dose: 4 ml Albuterol/Ipratropium (Duoneb 3 Mg/0.5 Mg (3 Ml) Ud) 3 ml IH Q2H PRN PRN Reason: Shortness of Breath Last Admin: 04/16/18 07:44 Dose: 3 ml Arformoterol Tartrate (Brovana) 15 mcg IH [id number] [facility] Last Admin: 04/16/18 07:44 Dose: 15 mcg Aspirin (Aspirin Chewable) 81 mg PO DAILY [facility] Last Admin: 04/15/18 09:51 Dose: 81 mg Atorvastatin Calcium (Lipitor) 40 mg PO DAILY [facility] Last Admin: 04/15/18 09:51 Dose: 40 mg Budesonide (Pulmicort Respules) 0.5 mg IH [id number] [facility] Last Admin: 04/16/18 07:44 Dose: 0.5 mg Ergocalciferol (Drisdol 50,000 Intl Units Cap) 1 cap PO Q7D [facility] Last Admin: 04/11/18 16:07 Dose: Not Given Ferrous Gluconate (Fergon) 324 mg PO TID [facility] Last Admin: 04/15/18 17:07 Dose: 324 mg Heparin Sodium (Porcine) (Heparin) 5,000 units SC Q8H [facility]; Protocol Last Admin: 04/16/18 05:45 Dose: 5,000 units Insulin Human Lispro (Humalog High) 0 units SC ACHS [facility]; Protocol Last Admin: 04/16/18 08:18 Dose: Not Given Methylprednisolone (Solu-Medrol) 20 mg IVP Q12H [facility] Last Admin: 04/15/18 22:51 Dose: 20 mg Metoprolol Tartrate (Lopressor) 25 mg PO BID [facility] Last Admin: 04/15/18 17:08 Dose: Not Given Nicotine (Nicoderm Cq) 1 patch TD DAILY [facility] Last Admin: 04/15/18 09:52 Dose: 1 patch Pantoprazole Sodium (Protonix Inj) 40 mg IVP DAILY [facility] Last Admin: 04/15/18 09:52 Dose: 40 mg Paroxetine HCl (Paxil) 5 mg PO HS [facility] - Labs Labs: 04/16/18 06:00 04/16/18 06:00 PT 11.9 SECONDS (9.4-12.5) 04/11/18 12:25 INR 1.05 04/11/18 12:25 APTT 25.3 Seconds (26.9-38.3) L 04/11/18 12:25 - Constitutional Appears: No Acute Distress - Head Exam Head Exam: ATRAUMATIC, NORMOCEPHALIC - Eye Exam Eye Exam: EOMI - ENT Exam ENT Exam: Mucous Membranes Moist - Respiratory Exam Respiratory Exam: Clear to Ausculation Bilateral, Wheezes - Cardiovascular Exam Cardiovascular Exam: REGULAR RHYTHM, +S1, +S2 - GI/Abdominal Exam GI & Abdominal Exam: Soft. absent: Distended, Tenderness - Extremities Exam Extremities Exam: absent: Calf Tenderness, Pedal Edema - Neurological Exam Neurological Exam: Alert, Awake, Oriented x3 - Psychiatric Exam Psychiatric exam: Normal Mood - Skin Skin Exam: Dry, Warm Assessment and Plan - Assessment and Plan (Free Text) Assessment: 57 F with a PMHx history of breast cancer, severe COPD, anxiety, pneumonia, pleural effusions, CKD, xanax abuse, hx of non-compliance, hx of xanax/oxycodone overdose, who presented respiratory failure 2/2 possible HAP s/p extubation. - Cont Vanc and Cefepime day 6 today, upon discharge can d/c abx - Blood cx neg - F/u septic work up - Cont to monitor Case and plan was reviewed and discussed in detail with Dr Damon <Chung Damon S - Last Filed: 04/16/18 16:00> Objective - Vital Signs/Intake and Output Vital Signs (last 24 hours): Temp Pulse Resp BP Pulse Ox 98.1 F 87 20 123/57 L 97 04/16/18 14:00 04/16/18 14:00 04/16/18 14:00 04/16/18 14:00 04/16/18 14:00 Intake and Output: 04/16/18 04/16/18 06:59 18:59 Output Total 600 Balance -600 - Medications Medications: Current Medications Acetylcysteine (Acetylcysteine 20%) 4 ml IH BIDRESP [facility] Last Admin: 04/16/18 07:44 Dose: 4 ml Albuterol/Ipratropium (Duoneb 3 Mg/0.5 Mg (3 Ml) Ud) 3 ml IH Q2H PRN PRN Reason: Shortness of Breath Last Admin: 04/16/18 12:07 Dose: 3 ml Arformoterol Tartrate (Brovana) 15 mcg IH [id number] [facility] Last Admin: 04/16/18 07:44 Dose: 15 mcg Aspirin (Aspirin Chewable) 81 mg PO DAILY [facility] Last Admin: 04/16/18 10:55 Dose: 81 mg Atorvastatin Calcium (Lipitor) 40 mg PO DAILY [facility] Last Admin: 04/16/18 10:54 Dose: 40 mg Bacitracin (Bacitracin) 0 gm TOP BID [facility] Budesonide (Pulmicort Respules) 0.5 mg IH [id number] [facility] Last Admin: 04/16/18 07:44 Dose: 0.5 mg Ergocalciferol (Drisdol 50,000 Intl Units Cap) 1 cap PO Q7D [facility] Last Admin: 04/11/18 16:07 Dose: Not Given Ferrous Gluconate (Fergon) 324 mg PO TID [facility] Last Admin: 04/16/18 15:57 Dose: 324 mg Furosemide (Lasix) 40 mg IVP DAILY [facility] Heparin Sodium (Porcine) (Heparin) 5,000 units SC Q8H [facility]; Protocol Last Admin: 04/16/18 05:45 Dose: 5,000 units Insulin Human Lispro (Humalog High) 0 units SC ACHS [facility]; Protocol Last Admin: 04/16/18 12:02 Dose: 4 u Methylprednisolone (Solu-Medrol) 20 mg IVP DAILY [facility] Metoprolol Tartrate (Lopressor) 25 mg PO BID [facility] Last Admin: 04/16/18 10:54 Dose: 25 mg Nicotine (Nicoderm Cq) 1 patch TD DAILY [facility] Last Admin: 04/16/18 10:56 Dose: 1 patch Pantoprazole Sodium (Protonix Ec Tab) 40 mg PO ACB [facility] Paroxetine HCl (Paxil) 5 mg PO HS [facility] Vitamin B Complex/Vit C/Folic Acid (Nephro-Enrrique) 1 tab PO 0800 [facility] - Labs Labs: 04/16/18 06:00 04/16/18 06:00 PT 11.9 SECONDS (9.4-12.5) 04/11/18 12:25 INR 1.05 04/11/18 12:25 APTT 25.3 Seconds (26.9-38.3) L 04/11/18 12:25 Assessment and Plan - Assessment and Plan (Free Text) Assessment: Infectious diseases Attending Physician Attestation Patient seen and examined, discussed with medical center manager. I have reviewed the patient's history of present illness, past medical, social, personal and family histories, pertinent physical exam findings, course so far in this hospital admission, pertinent laboratory and imaging results. I agree with the above findings, assessment and plan. In addition, on day 6 of Vancomycin and Cefepime today for possible HAP - we can d/c antibiotics and observe.
[2018-04-16] MEDS: MethylPREDNISolone 40 mg Vial IVP SCH (10:55)
[2018-04-16] MEDS ORDERED: Bacitracin Ointment 30 GM TUBE TOP SCH (11:30)
--- NOTE | 2018-04-16 11:58 | CON ---
DATE: 04/16/2018 HISTORY OF PRESENT ILLNESS: The patient is a 57-year-old female, with past medical history of numerous multiple issues (please see medical notes for full detail), history of anxiety, no history of outpatient psychiatric management or inpatient psychiatric management or history of suicide attempt, who is being treated on the medical floor for respiratory distress. Please note the patient has a history of recurrent medical admissions for respiratory distress and Psychiatry has been consulted on her multiple times to intentional overdose. Please note that I consulted with the patient on 04/01/2018 and 04/02/2018 of this month and as well as 02/08/2018 and 03/11/[address] Ernst consulted with her on 03/12/2018. During all these consultations, the patient did not have any suicidal thoughts and denied that her presentation was secondary to intentional overdose. The patient has consistently been adamant about not being suicidal; however, she has intermittently admitted to anxiety. Today, the patient again at bedside this morning and she recalls me from her prior interview. She is aware that she is at [facility], that is [place], cannot provide the current president; however, she was able to tell me our former president. The patient indicated that "her mind is not working very well." She is aware of her issues with recall in this respect. The patient reports that she is very depressed and she cannot deny any longer and then indicates that her main stressor is that she wants social security and that this will help her to get transportation to her various medical appointments. Right now, she has two adult kids helping her with walking and bathing; however, she indicates that she needs more support at this time. As usual, the patient adamantly denies she is suicidal, denies wishes. She is future oriented and that she requesting help for her social needs and she is also agreeable to start low-dose medication to help with depression and anxiety. Her focus is inconsistent; however, she does not appear as oriented as she has in prior interviews. However, she is quite clear in expressing her preferences at this time. She denies hallucinations and does not appear to be hallucinating, but no acute delusions were elicited. The patient has not been entirely cooperative with staff members and that could be secondary to her delirium, though it does appear that her insight and judgment are improving at this time. Please note that this provider had recommended multiple times that the patient should not be prescribed Xanax or any other benzos or opiates due to her history of multiple presentations due to respiratory distress. PAST PSYCHIATRIC HISTORY: The patient denies any psychiatric history including attempts inpatient and outpatient followups; however, has been prescribed Xanax by Dr. Sosa in the recent past. IMPRESSION: Depression, not otherwise specified; anxiety, not otherwise specified. Rule out depression secondary to general medical condition. Rule out adjustment disorder with mixed depression and anxiety. The patient appears to have inconsistent progress, which could be indicative of delirium/resolving delirium. RECOMMENDATIONS: 1. At this time, I recommend the patient be started on Paxil 5 mg at bedtime and the patient is agreeable. 2. dam worker should follow up with the patient and discussed disposition options were going outpatient psychiatric management. The patient does not want to defer on any transfer to the inpatient unit at this time for her depressive symptoms. 3. As usual, I strongly recommend that the patient not prescribe benzos for anxiety due to her multiple presentations of respiratory distress. It is unclear her presentations were secondary to overdose wether the overdose is intentional or unintentional (please note the patient always maintained that if there are any overdoses were unintentional). The patient should not be prescribed benzos or opiates. 4. Psychiatry will continue to follow up. Next followup will be on 04/17/2018. Pamela Schulte MD
[2018-04-16] MEDS ORDERED: Sodium Chloride 0.9% 1,000 ML IV SCH ×2 (14:00→14:30)
--- NOTE | 2018-04-16 14:17 | PN ---
DATE: 04/16/2018 PULMONARY PROGRESS NOTE REFERRING PHYSICIAN: Darius Rdz MD SUBJECTIVE: The patient is sitting up in bed. No acute distress. No overnight events reported. The patient has periods of shortness of breath, occasional coughing. No headache, rhinitis, chest pain, abdominal pain, nausea, vomiting, diarrhea or leg pain reported. OBJECTIVE: GENERAL: No acute distress. VITAL SIGNS: Blood pressure 146/63, pulse 99, temperature 98.6, oxygen saturation 96% on nasal cannula. HEENT: Moist mucous membranes. Crowded airway. NECK: Supple. No JVD. LUNGS: Decreased breath sounds on the right. Scattered rhonchi. CARDIOVASCULAR: S1 and S2 audible. ABDOMEN: Soft and nontender. No distention. No organomegaly. EXTREMITIES: Bilateral lower extremity edema. NEUROLOGIC: Awake, alert, and verbal. Follows commands. MEDICATIONS: Reviewed. Mucomyst 4 mL inhalation twice a day, DuoNeb 3 mL inhalation every 2 hours p.r.n., Brovana 15 mcg every 12 hours, aspirin 81 mg daily, Lipitor 40 mg daily, bacitracin topically twice a day to affected area, Pulmicort 0.5 mg every 12 hours, ergocalciferol 50,000 units weekly, ferrous gluconate 324 mg 3 times a day, heparin 5000 units subcu every 8 hours, Humalog sliding scale a.c. and at bedtime, Solu-Medrol 20 mg daily, Lopressor 25 mg twice a day, nicotine patch transdermally daily, Protonix 40 mg daily, Paxil 5 mg at bedtime, Nephro-Enrrique one tablet daily. LABORATORY DATA: Reviewed. WBC 11, RBC 3.32, hemoglobin 9.4, hematocrit 32.5, and platelets 160. Sodium 144, potassium 4.4, chloride 106, carbon dioxide 34, anion gap 8, BUN 96, creatinine 2.7, GFR 18, POC glucose 187, random glucose 179, calcium 7.8, total bilirubin 0.5, AST 40, ALT 86, alkaline phosphatase 96, total protein 5.6, albumin 3.2, globulin 2.4, albumin globulin ratio 1.4. Urine benzodiazepine screen positive. Blood cultures preliminary no growth after four days. IMPRESSION AND PLAN: Respiratory failure, atelectasis, chronic obstructive lung disease, diabetes, history of breast cancer, pneumonia, recurrent urinary tract infection, obstructive sleep apnea syndrome. The patient has history of noncompliance with followup medications in the past. Active smoker. Refuses to use bilevel positive airway pressure or continuous positive airway pressure. Sleep apnea precaution. Head of bed elevated to 45 degrees. Continue steroid, antibiotics, gastric prophylaxis, and deep venous thrombosis prophylaxis. Continue pulmonary toileting, supplemental oxygen, chest physiotherapy, incentive spirometry. The patient is at high risk for respiratory failure. We will order chest x-ray to follow up in the morning. Fall precautions. This patient was seen and examined with Dr. Rucker. Discussed assessment and plan as described above. Thank you for this consult and we will follow with you. Didier Dennis APN Lisa Rucker MD
--- NOTE | 2018-04-16 14:50 | CP.PCM.PN ---
Subjective - Date & Time of Evaluation Date of Evaluation: 04/16/18 Time of Evaluation: 14:49 - Subjective Subjective: Nephrology Consultation Note: Assessment: stable DAHLIA likely ATN, non-oliguric: improving acute on chronc respi acidosis with respi failure with renal compensation rt pleural effusion with chest wall mass ? 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 overall poor pro gnosis, seen by palliative care Hypertension control with meds as ordered. Maintain hemodynamics stable. Avoid hypotension. Patient not on ACEI/ARB due to recent DAHLIA, hyperkalemic tendency Monitor Input/Output, daily weights and renal function with basic metabolic panel will defer use of [place] to heme/onc in view of her recent breast malignancy with concerns for mets. PRBC as needed continue with iron 325 mg TID, MVI and weekly Vit D supplement lytes as needed seen by cardio heme/onc and pulmonary lasix prn Dose meds/antibiotics for reduced GFR. Avoid fleets enema/magnesium based laxatives. Avoid nephrotoxins/NSAIDs/ iodinated contrast (unless needed emergently) Glycemic control. pt need to stop smoking Further work up/management as per primary team for d/c to LTAC soon. stable from renal perspective Thanks for allowing me to participate in care of your patient. Will follow patient with you. Please call if any Qs. had d/w team Dr Marco Antonio Chatman Office: [phone] Chief Complaint; SOB Reason for consult: CKD 3, DAHLIA HPI: Pt is a 57 F with hx of diabetes Mellitus ( years), hypertension (years) COPD/asthma, active smoker, breast cancer s/p surgery 2 years ago but didn't complete treatment now with mets, anemia, CKD stage 3 with baseline cr 1.8 mg/dL and AKIs (peaked cr 4) admitted with acute respi distress hypercapnic respi failure and intubated/extubated, now seen for CKD management Denies OTC/herbal meds or NSAIDs No recent iodinated contrast exposure. No obvious episodes of low BP. pt was recently admitted for same and she signed out AMA. ROS: pt is a poor historian and overall hx is limited from her. SOB better. no chest pain Physical Examination: General Appearance: stable appearing. on o2 Vitals reviewed and noted as below Head; Atraumatic, normocephalic ENT: no ulcers no thrush. Tongue is midline. Oropharynx: no rash or ulcers. she is hard of hearing EYES: Pupils are equal, round and reactive to light accommodation. Eye muscles and extraocular movement intact. Sclera is anicteric. has some periorbital puffiness Neck; supple no lymphadenopathy, no thyromegaly or bruit Lungs: Improved respiratory rate/effort. Breath sounds b/l improved Heart: normal rate. s1s2 normal. No rub or gallop. Extremities: 1-2+ edema. No varicose veins Neurological: Patient is alert, awake and oriented to person, place and time. No focal deficit. Strength bilateral appropriate and equal Skin: Warm and dry. Normal turgor. No rash. Palpitation: Normal elasticity for age Abdomen: Abdomen is soft. Bowel sounds +. There is no abdominal tenderness, no guarding/rigidity no organomegaly Psych: lack insight and flat affect/mood MSK: no joint tenderness or swelling. Digits and nails normal, no deformity : kidney or bladder not palpable Labs/imaging reviewed. Past medical history, past surgical history, family history, social history, allergy reviewed and noted as below Family hx: no hx of CKD. Rest non-contributory renal imaging: b/l cysts echo normal LVEF TSAt 26% ferritin 45 Serum FLC assay WNL ABDIRIZAK neg PTH 154 Vit D 17 Objective - Vital Signs/Intake and Output Vital Signs (last 24 hours): Temp Pulse Resp BP Pulse Ox 98.6 F 99 H 17 146/63 96 04/16/18 06:00 04/16/18 10:54 04/16/18 06:00 04/16/18 10:54 04/16/18 06:00 Intake and Output: 04/16/18 04/16/18 06:59 18:59 Output Total 600 Balance -600 - Medications Medications: Current Medications Acetylcysteine (Acetylcysteine 20%) 4 ml IH BIDRESP [facility] Last Admin: 04/16/18 07:44 Dose: 4 ml Albuterol/Ipratropium (Duoneb 3 Mg/0.5 Mg (3 Ml) Ud) 3 ml IH Q2H PRN PRN Reason: Shortness of Breath Last Admin: 04/16/18 12:07 Dose: 3 ml Arformoterol Tartrate (Brovana) 15 mcg IH [id number] [facility] Last Admin: 04/16/18 07:44 Dose: 15 mcg Aspirin (Aspirin Chewable) 81 mg PO DAILY [facility] Last Admin: 04/16/18 10:55 Dose: 81 mg Atorvastatin Calcium (Lipitor) 40 mg PO DAILY [facility] Last Admin: 04/16/18 10:54 Dose: 40 mg Bacitracin (Bacitracin) 0 gm TOP BID [facility] Budesonide (Pulmicort Respules) 0.5 mg IH [id number] [facility] Last Admin: 04/16/18 07:44 Dose: 0.5 mg Ergocalciferol (Drisdol 50,000 Intl Units Cap) 1 cap PO Q7D [facility] Last Admin: 04/11/18 16:07 Dose: Not Given Ferrous Gluconate (Fergon) 324 mg PO TID [facility] Last Admin: 04/16/18 10:54 Dose: 324 mg Heparin Sodium (Porcine) (Heparin) 5,000 units SC Q8H [facility]; Protocol Last Admin: 04/16/18 05:45 Dose: 5,000 units Sodium Chloride (Sodium Chloride 0.9%) 1,000 mls @ 75 mls/hr IV .[id number] [facility] Stop: 04/17/18 03:49 Insulin Human Lispro (Humalog High) 0 units SC ACHS [facility]; Protocol Last Admin: 04/16/18 12:02 Dose: 4 u Methylprednisolone (Solu-Medrol) 20 mg IVP DAILY [facility] Metoprolol Tartrate (Lopressor) 25 mg PO BID [facility] Last Admin: 04/16/18 10:54 Dose: 25 mg Nicotine (Nicoderm Cq) 1 patch TD DAILY [facility] Last Admin: 04/16/18 10:56 Dose: 1 patch Pantoprazole Sodium (Protonix Ec Tab) 40 mg PO ACB [facility] Paroxetine HCl (Paxil) 5 mg PO HS [facility] Vitamin B Complex/Vit C/Folic Acid (Nephro-Enrrique) 1 tab PO 0800 [facility] - Labs Labs: 04/16/18 06:00 04/16/18 06:00 PT 11.9 SECONDS (9.4-12.5) 04/11/18 12:25 INR 1.05 04/11/18 12:25 APTT 25.3 Seconds (26.9-38.3) L 04/11/18 12:25
--- NOTE | 2018-04-16 15:26 | CP.PCM.PN ---
<Aj Mays - Last Filed: 04/16/18 15:42> Subjective - Date & Time of Evaluation Date of Evaluation: 04/16/18 Time of Evaluation: 06:20 - Subjective Subjective: Pt seen and examined at bedside this morning. Per nursing, no acute events overnight. Objective - Vital Signs/Intake and Output Vital Signs (last 24 hours): Temp Pulse Resp BP Pulse Ox 98.1 F 87 20 123/57 L 97 04/16/18 14:00 04/16/18 14:00 04/16/18 14:00 04/16/18 14:00 04/16/18 14:00 Intake and Output: 04/16/18 04/16/18 06:59 18:59 Output Total 600 Balance -600 - Medications Medications: Current Medications Acetylcysteine (Acetylcysteine 20%) 4 ml IH BIDRESP [facility] Last Admin: 04/16/18 07:44 Dose: 4 ml Albuterol/Ipratropium (Duoneb 3 Mg/0.5 Mg (3 Ml) Ud) 3 ml IH Q2H PRN PRN Reason: Shortness of Breath Last Admin: 04/16/18 12:07 Dose: 3 ml Arformoterol Tartrate (Brovana) 15 mcg IH [id number] [facility] Last Admin: 04/16/18 07:44 Dose: 15 mcg Aspirin (Aspirin Chewable) 81 mg PO DAILY [facility] Last Admin: 04/16/18 10:55 Dose: 81 mg Atorvastatin Calcium (Lipitor) 40 mg PO DAILY [facility] Last Admin: 04/16/18 10:54 Dose: 40 mg Bacitracin (Bacitracin) 0 gm TOP BID [facility] Budesonide (Pulmicort Respules) 0.5 mg IH [id number] [facility] Last Admin: 04/16/18 07:44 Dose: 0.5 mg Ergocalciferol (Drisdol 50,000 Intl Units Cap) 1 cap PO Q7D [facility] Last Admin: 04/11/18 16:07 Dose: Not Given Ferrous Gluconate (Fergon) 324 mg PO TID [facility] Last Admin: 04/16/18 10:54 Dose: 324 mg Heparin Sodium (Porcine) (Heparin) 5,000 units SC Q8H [facility]; Protocol Last Admin: 04/16/18 05:45 Dose: 5,000 units Sodium Chloride (Sodium Chloride 0.9%) 1,000 mls @ 75 mls/hr IV .[id number] [facility] Stop: 04/17/18 03:49 Insulin Human Lispro (Humalog High) 0 units SC ACHS [facility]; Protocol Last Admin: 04/16/18 12:02 Dose: 4 u Methylprednisolone (Solu-Medrol) 20 mg IVP DAILY [facility] Metoprolol Tartrate (Lopressor) 25 mg PO BID [facility] Last Admin: 04/16/18 10:54 Dose: 25 mg Nicotine (Nicoderm Cq) 1 patch TD DAILY [facility] Last Admin: 04/16/18 10:56 Dose: 1 patch Pantoprazole Sodium (Protonix Ec Tab) 40 mg PO ACB [facility] Paroxetine HCl (Paxil) 5 mg PO HS [facility] Vitamin B Complex/Vit C/Folic Acid (Nephro-Silvio) 1 tab PO 0800 [facility] - Labs Labs: 04/16/18 06:00 04/16/18 06:00 PT 11.9 SECONDS (9.4-12.5) 04/11/18 12:25 INR 1.05 04/11/18 12:25 APTT 25.3 Seconds (26.9-38.3) L 04/11/18 12:25 - Constitutional Appears: No Acute Distress - Head Exam Head Exam: ATRAUMATIC, NORMOCEPHALIC - Eye Exam Eye Exam: EOMI - ENT Exam ENT Exam: Mucous Membranes Moist - Neck Exam Neck Exam: Full ROM - Respiratory Exam Respiratory Exam: Clear to Ausculation Bilateral, NORMAL BREATHING PATTERN. absent: Accessory Muscle Use, Respiratory Distress - Cardiovascular Exam Cardiovascular Exam: RRR, +S1, +S2. absent: Diastolic murmur, Murmur - GI/Abdominal Exam GI & Abdominal Exam: Soft, Normal Bowel Sounds - Extremities Exam Extremities Exam: Full ROM Additional comments: excoriations BL UE - Neurological Exam Neurological Exam: Alert, Awake, Oriented x3 - Psychiatric Exam Psychiatric exam: Normal Affect, Normal Mood - Skin Additional comments: excoriations BL UE Assessment and Plan - Assessment and Plan (Free Text) Assessment: Pt is a 57 yo female with a PMH of Breast CA, asthma, COPD, anxiety, DM, and a right pleural effusion who presented with acute hypercapnic respiratory failure, subsequently extubated and transferred to medicine floors Plan: Acute Hypercapnic Respiratory Failure - Likely 2/2 tobacco use in the setting of her known asthma and COPD - duonebs - prednisone - pulmicort - Pulm, appreciate recs HCAP - Strep pneumo not detected, legionella negative, MRSA negative, blood cultures NGTD - Procal 0.55 - ID following DAHLIA on CKD - BUN 96 - Cr 2.7 - Likely ATN in setting of diabetic and hypertensive chronic kidney disease - Nephrology, following Excoriations on BL UE - bacitracin ointment Anxiety - psyc advises not to continue taking benzos due to the fact that pt has overdosed multiple times - Paxil Breast CA - Palliative care, goals of care and advance care planning HLD - lipitor HTN - metoprolol DM - accuchecks - ISS Tobacco abuse - Counseled, pt amendable to cessation - nicotine patch Ppx - heparin - protonix Pt seen, examined, assessment and plan discussed with Dr Whit Mays PGY1, Internal Medicine Resident <Whit Rick R - Last Filed: 04/16/18 15:52> Objective - Vital Signs/Intake and Output Vital Signs (last 24 hours): Temp Pulse Resp BP Pulse Ox 98.1 F 87 20 123/57 L 97 04/16/18 14:00 04/16/18 14:00 04/16/18 14:00 04/16/18 14:00 04/16/18 14:00 Intake and Output: 04/16/18 04/16/18 06:59 18:59 Output Total 600 Balance -600 - Medications Medications: Current Medications Acetylcysteine (Acetylcysteine 20%) 4 ml IH BIDRESP [facility] Last Admin: 04/16/18 07:44 Dose: 4 ml Albuterol/Ipratropium (Duoneb 3 Mg/0.5 Mg (3 Ml) Ud) 3 ml IH Q2H PRN PRN Reason: Shortness of Breath Last Admin: 04/16/18 12:07 Dose: 3 ml Arformoterol Tartrate (Brovana) 15 mcg IH [id number] [facility] Last Admin: 04/16/18 07:44 Dose: 15 mcg Aspirin (Aspirin Chewable) 81 mg PO DAILY [facility] Last Admin: 04/16/18 10:55 Dose: 81 mg Atorvastatin Calcium (Lipitor) 40 mg PO DAILY [facility] Last Admin: 04/16/18 10:54 Dose: 40 mg Bacitracin (Bacitracin) 0 gm TOP BID [facility] Budesonide (Pulmicort Respules) 0.5 mg IH [id number] [facility] Last Admin: 04/16/18 07:44 Dose: 0.5 mg Ergocalciferol (Drisdol 50,000 Intl Units Cap) 1 cap PO Q7D [facility] Last Admin: 04/11/18 16:07 Dose: Not Given Ferrous Gluconate (Fergon) 324 mg PO TID [facility] Last Admin: 04/16/18 10:54 Dose: 324 mg Heparin Sodium (Porcine) (Heparin) 5,000 units SC Q8H [facility]; Protocol Last Admin: 04/16/18 05:45 Dose: 5,000 units Insulin Human Lispro (Humalog High) 0 units SC ACHS [facility]; Protocol Last Admin: 04/16/18 12:02 Dose: 4 u Methylprednisolone (Solu-Medrol) 20 mg IVP DAILY [facility] Metoprolol Tartrate (Lopressor) 25 mg PO BID [facility] Last Admin: 04/16/18 10:54 Dose: 25 mg Nicotine (Nicoderm Cq) 1 patch TD DAILY [facility] Last Admin: 04/16/18 10:56 Dose: 1 patch Pantoprazole Sodium (Protonix Ec Tab) 40 mg PO ACB [facility] Paroxetine HCl (Paxil) 5 mg PO HS [facility] Vitamin B Complex/Vit C/Folic Acid (Nephro-Silvio) 1 tab PO 0800 [facility] - Labs Labs: 04/16/18 06:00 04/16/18 06:00 PT 11.9 SECONDS (9.4-12.5) 04/11/18 12:25 INR 1.05 04/11/18 12:25 APTT 25.3 Seconds (26.9-38.3) L 04/11/18 12:25 Attending/Attestation - Attestation I have personally seen and examined this patient.: Yes I have fully participated in the care of the patient.: Yes I have reviewed all pertinent clinical information, including history, physical exam and plan: Yes Notes (Text): Patient seen and examined by me with resident at 11:15AM on 04/16/18. Case including HPI, physical exam, and assessment and plan discussed with resident. Agree with above with following additions/corrections. Patient is a 57 year old female with past medical history significant for COPD, asthma, untreated breast cancer, anemia, depression and anxiety, and recurrent UTIs that presented to the emergency room for respiratory failure. Patient states that she feels ok. Patient complains of some shortness of breath and needing oxygen. She denies any chest pain or palpitations. No headaches or dizziness. No fevers or chills. No nausea, vomiting, or abdominal pain. No dysu joaquín. Physical exam: General: Awake and alert sitting up in bed in no acute distress HEENT: Normocephalic, atraumatic. Extraocular muscles intact, pupils equal and reactive, no scleral icterus. Oropharynx is pink and moist. No pharyngeal erythema or exudate apreciated. Neck is supple. Cardiovascular: Regular rhythm. Normal S1 and S2. No murmurs, rubs, or gallops appreciated Pulmonary: Normal respiratory effort. Decreased breath sounds. No rhonchi, rales, or wheezing appreciated. Gastrointestinal: Soft, nondistended. Nontender. Positive bowel sounds all 4 quadrants. No guarding. Musculoskeletal: Moves all extremities. No calf tenderness. Trace bilateral lower extremity edema appreciated. Central nervous system: Awake and alert. CN 2-12 grossly intact. Dermatologic: Skin warm and dry. Positive excoriations with some bleeding bilateral forearms and hands. Assessment and plan: Patient is a 57 year old female with past medical history significant for COPD, asthma, untreated breast cancer, anemia, anxiety, and recurrent UTIs that presented to the emergency room for respiratory failure. 1. Acute hypercapnic respiratory failure. S/P intubation and extubation. Overhead Crane Operator following, recommendations appreciated. Continue O2 via nasal cannula as needed. Continue acetylcysteine BID. Continue nebulizer treatments. Continue Brovana and Pulmicort. Continue solumedrol, continue to taper. Chest CT 04/11/18 per radiologist showed decrease in right lobe consolidation and adjacent pleural effusion, some residual consolidation at right lung base posteriorly; chronic area of scarring or consolidation in posterior aspect of the right lung apex; calcification seen in left upper quadrant of left breast. 2. Healthcare associated pneumonia. Chest xray 04/12/18 per radiologist showed right sided effusion with right lower lobe atelectasis and or infiltrated. Chest CT as above. ID following, recommendations appreciated. Intermittent leukocytosis. Afebrile. Blood cultures with no growth. Procalcitonin 0.55. Influenza negative, Urine for legionella negative. Urine for strep pneumoniae ne gative. As discussed with ID Dr. Shore, antibiotics stopped. Patient is s/p treatment with cefepime 3. Pleural effusion. Elevated ProBNP. ProBNP 7140, likely secondary to CKD. Pleural effusion likely secondary to pneumonia vs malignancy. Pulmonary following, recommendations appreciated. Pharmacy Order Entry Technician following, recommendations appreciated. 4. DAHLIA, likely ATN on Chronic Kidney disease. Director Regulatory Compliance following, recommendations appreciated. BUN downtrended. Creatinine slightly uptrended. Continue nehpro silvio. Continue to monitor. 5. Anemia. Likely secondary to malignancy and chronic disease. S/P 2 units PRBCs. Continue ferrous sulfate. Continue to monitor CBC. 6. DM2 with hyperglycemia. Likely secondary to steroids. Continue insulin sliding scale. Continue to monitor accuchecks. Hgb AIC was 8.8 04/03/18. 7. Essential hypertension. Continue Metoporolol 8. Hyperlipidemia. Continue lipitor. 9. History of breast cancer. S/P 1 cycle of chemo, patient refused chemo and surgery post one cycle. Will need repeat Chest CT in one month per hem/onc. Hem/onc following, recommendations appreciated. 10. Tobacco abuse. Patient counseled at length on tobacco cessation. Continue with nicotine patch. 11. Depression and Anxiety. Psychiatrist following, recommendations appreciated. Patient started on Paxil 5 mg at bedtime. NO benzodiazepines to be give. 12. GI/DVT prophylaxis. Protonix/heparin 13. Patient is a full code. Palliative care recommendations appreciated. Case was discussed in detail with the patient regarding current diagnosis and treatment plan. All questions answered.
--- NOTE | 2018-04-16 15:28 | RAD ---
Date of service: 04/16/2018 HISTORY: Follow-up COMPARISON: Comparison made with chest radiograph and CT scan chest dated 04/12/2018 and 04/11/2018 respectively. TECHNIQUE: Chest PA and lateral FINDINGS: No change right IJ MediPort with tip in the SVC LUNGS: Near complete opacification of the right hemithorax with some aeration of the right upper lobe. Findings likely likely due to increased diffusion however progression of-atelectasis/consolidation may also contribute.. Chronic scarring right posterior lung apex less well seen compared to high-resolution CT scan mild left basilar atelectasis. PLEURA: No significant pleural effusion identified. No pneumothorax apparent. CARDIOVASCULAR: Minor aortic atherosclerotic calcification present. Normal cardiac size. No pulmonary vascular congestion. OSSEOUS STRUCTURES: No significant abnormalities. VISUALIZED UPPER ABDOMEN: Normal. OTHER FINDINGS: None. IMPRESSION: Near complete opacification of the right hemithorax with some aeration of the right upper lobe. Findings likely likely due to increased diffusion however progression of-atelectasis/consolidation may also contribute.. Chronic scarring right posterior lung apex less well seen compared to high-resolution CT scan mild left basilar atelectasis.
[2018-04-16] MEDS: Bacitracin Ointment 30 GM TUBE TOP SCH (18:00)
--- NOTE | 2018-04-16 18:53 | PN ---
DATE: 04/16/2018 REASON FOR CONSULTATION: Followup, cardiac evaluation, status post respiratory failure, severe anemia, extubated now. SUBJECTIVE: The patient is in . Denies any chest pain, shortness of breath or any palpitation. Status post packed RBC transfusion. OBJECTIVE: GENERAL: Not in apparent distress. VITAL SIGNS: Temperature afebrile, heart rate 99, blood pressure 143/63. HEENT: PERRLA. Extraocular muscles intact. NECK: Supple. No carotid bruits. No thyromegaly. CHEST: Clear to auscultation. HEART: S1 and S2 regular. ABDOMEN: Soft. EXTREMITIES: Clubbing and cyanosis negative. LABORATORY DATA: WBC 11, hemoglobin 9.5, hematocrit 32.5, platelet count 160. Chemistry shows sodium 144, potassium 4.4, chloride 106, carbon dioxide 34, anion gap 8, BUN 96, creatinine 2.7. IMPRESSION: A 57-year-old female with active tobacco abuse, history of narcotic dependence, who recently admitted and signed out against medical advice for smoking, came back again with respiratory failure, intubated, severe anemia, status post 2 units of packed red blood cell was given. Now hemoglobin and hematocrit are stable . The patient is currently in the medical floor. Denies any chest pain, shortness of breath or any palpitation. Cardiovascular system status is stable. History of chronic renal insufficiency and stage III to IV chronic kidney disease. RECOMMENDATIONS: Continue aspirin. Continue iron supplementation. Continue deep venous thrombosis prophylaxis. Continue atorvastatin. Continue metoprolol 25 p.o. b.i.d. Continue methylprednisolone. Recommended complete cessation of smoking. We will follow with you. Thank you, Dr. Rdz, for providing us the opportunity in taking care of the patient, Yazmin Granado. Lisa Hernandez MD
[2018-04-17] MEDS: Albuterol-Ipratrop 3 mg / 0.5 (3 ml) UD IH PRN ×3 (00:10→16:35)
[2018-04-17 07:18] LABS: HEMOGLOBIN 8.8 g/dL (12.0-16.0); MEAN CELL VOLUME 96.5 fl (80.0-105.0); MEAN CORPUSCULAR HEMOGLOBIN 28.3 pg (25.0-35.0); MEAN CORPUSCULAR HGB CONC 29.3 g/dl (31.0-37.0); MEAN PLATELET VOLUME 11.1 fl (7.0-11.0); RBC 3.11 10^6/uL (3.5-6.1); WHITE BLOOD COUNT 10.9 10^3/uL (4.5-11.0)
[2018-04-17 07:32] LABS: ALB/GLOB RATIO 1.3 (1.1-1.8); CALCIUM 7.7 mg/dL (8.4-10.5)
[2018-04-17] MEDS ORDERED: Dextrose 50% SYRINGE Inj (50 ml) IV PRN (07:56)
[2018-04-17] MEDS: Acetylcysteine 20% Inhal Soln (4ml) IH SCH ×2 (08:00→19:55)
[2018-04-17] MEDS: Arformoterol 15 mcg/2 ml Inh Sol IH SCH ×2 (08:00→19:55)
[2018-04-17] MEDS: Budesonide 0.5 mg/2 ml Inhal Susp UD IH SCH ×2 (08:01→19:55)
--- NOTE | 2018-04-17 08:39 | CP.PCM.PN ---
<Leonidas Guardado - Last Filed: 04/17/18 12:19> Subjective - Date & Time of Evaluation Date of Evaluation: 04/17/18 Time of Evaluation: 07:55 - Subjective Subjective: Infectious disease progress note: Pt seen and examined at bedside. No acute events overnight. States that she is feeling better, some wheezing but denies any sob. No other complaints. 12 Point ROS neg other than stated above Objective - Vital Signs/Intake and Output Vital Signs (last 24 hours): Temp Pulse Resp BP Pulse Ox 98.1 F 87 20 133/53 L 97 04/16/18 14:00 04/16/18 14:00 04/16/18 14:00 04/16/18 17:26 04/16/18 14:00 Intake and Output: 04/17/18 04/17/18 06:59 18:59 Intake Total 120 Output Total 600 Balance -480 - Medications Medications: Current Medications Acetylcysteine (Acetylcysteine 20%) 4 ml IH BIDRESP [facility] Last Admin: 04/17/18 08:00 Dose: Not Given Albuterol/Ipratropium (Duoneb 3 Mg/0.5 Mg (3 Ml) Ud) 3 ml IH Q2H PRN PRN Reason: Shortness of Breath Last Admin: 04/17/18 04:10 Dose: 3 ml Arformoterol Tartrate (Brovana) 15 mcg IH [id number] [facility] Last Admin: 04/17/18 08:00 Dose: Not Given Aspirin (Aspirin Chewable) 81 mg PO DAILY [facility] Last Admin: 04/16/18 10:55 Dose: 81 mg Atorvastatin Calcium (Lipitor) 40 mg PO DAILY [facility] Last Admin: 04/16/18 10:54 Dose: 40 mg Bacitracin (Bacitracin) 0 gm TOP BID [facility] Budesonide (Pulmicort Respules) 0.5 mg IH [id number] [facility] Last Admin: 04/17/18 08:01 Dose: Not Given Dextrose (Dextrose 50% Inj) 0 ml IV STAT PRN; Protocol PRN Reason: Hypoglycemia Protocol Ergocalciferol (Drisdol 50,000 Intl Units Cap) 1 cap PO Q7D [facility] Last Admin: 04/11/18 16:07 Dose: Not Given Ferrous Gluconate (Fergon) 324 mg PO TID [facility] Last Admin: 04/16/18 15:57 Dose: 324 mg Furosemide (Lasix) 40 mg IVP DAILY [facility] Last Admin: 04/16/18 17:26 Dose: 40 mg Heparin Sodium (Porcine) (Heparin) 5,000 units SC Q8H [facility]; Protocol Last Admin: 04/17/18 06:29 Dose: 5,000 units Dextrose (Dextrose 5% In Water 1000 Ml) 1,000 mls @ 0 mls/hr IV .Q0M PRN; Protocol PRN Reason: Hypoglycemia Protocol Insulin Detemir (Levemir) 10 unit SC HS [facility] Insulin Human Lispro (Humalog Low) 0 units SC ACHS [facility]; Protocol Methylprednisolone (Solu-Medrol) 20 mg IVP DAILY [facility] Metoprolol Tartrate (Lopressor) 25 mg PO BID [facility] Last Admin: 04/16/18 18:00 Dose: Not Given Nicotine (Nicoderm Cq) 1 patch TD DAILY [facility] Last Admin: 04/16/18 10:56 Dose: 1 patch Pantoprazole Sodium (Protonix Ec Tab) 40 mg PO ACB [facility] Paroxetine HCl (Paxil) 5 mg PO HS [facility] Vitamin B Complex/Vit C/Folic Acid (Nephro-Enrrique) 1 tab PO 0800 [facility] - Labs Labs: 04/17/18 06:40 04/17/18 06:40 PT 11.9 SECONDS (9.4-12.5) 04/11/18 12:25 INR 1.05 04/11/18 12:25 APTT 25.3 Seconds (26.9-38.3) L 04/11/18 12:25 - Constitutional Appears: No Acute Distress - Head Exam Head Exam: ATRAUMATIC, NORMOCEPHALIC - Eye Exam Eye Exam: EOMI - ENT Exam ENT Exam: Mucous Membranes Moist - Respiratory Exam Respiratory Exam: Clear to Ausculation Bilateral, Wheezes (mild b/l ) - Cardiovascular Exam Cardiovascular Exam: REGULAR RHYTHM - GI/Abdominal Exam GI & Abdominal Exam: Soft - Extremities Exam Extremities Exam: absent: Calf Tenderness, Pedal Edema - Neurological Exam Neurological Exam: Alert, Awake - Psychiatric Exam Psychiatric exam: Normal Mood - Skin Skin Exam: Dry, Warm Assessment and Plan - Assessment and Plan (Free Text) Assessment: 57 F with a PMHx history of breast cancer, severe COPD, anxiety, pneumonia, pleural effusions, CKD, xanax abuse, hx of non-compliance, hx of xanax/oxycodone overdose, who presented respiratory failure 2/2 possible HAP s/p extubation. - Completed 6 days of Vanc and Cefepime, monitor off abx - Blood cx and UA neg - Cont to monitor Case and plan was reviewed and discussed in detail with Dr Damon <Chung Damon S - Last Filed: 04/17/18 13:33> Objective - Vital Signs/Intake and Output Vital Signs (last 24 hours): Temp Pulse Resp BP Pulse Ox 97.8 F 88 20 126/66 99 04/17/18 06:00 04/17/18 10:35 04/17/18 06:00 04/17/18 10:35 04/17/18 06:00 Intake and Output: 04/17/18 04/17/18 06:59 18:59 Intake Total 120 Output Total 600 Balance -480 - Medications Medications: Current Medications Acetylcysteine (Acetylcysteine 20%) 4 ml IH BIDRESP [facility] Last Admin: 04/17/18 08:00 Dose: Not Given Albuterol/Ipratropium (Duoneb 3 Mg/0.5 Mg (3 Ml) Ud) 3 ml IH Q2H PRN PRN Reason: Shortness of Breath Last Admin: 04/17/18 04:10 Dose: 3 ml Arformoterol Tartrate (Brovana) 15 mcg IH [id number] [facility] Last Admin: 04/17/18 08:00 Dose: Not Given Aspirin (Aspirin Chewable) 81 mg PO DAILY [facility] Last Admin: 04/17/18 10:35 Dose: 81 mg Atorvastatin Calcium (Lipitor) 40 mg PO DAILY [facility] Last Admin: 04/17/18 10:35 Dose: 40 mg Bacitracin (Bacitracin) 0 gm TOP BID [facility] Last Admin: 04/16/18 18:00 Dose: Not Given Benzocaine/Menthol (Cepacol Sore Throat) 1 vy MT Q4H PRN PRN Reason: Sore Throat Budesonide (Pulmicort Respules) 0.5 mg IH [id number] [facility] Last Admin: 04/17/18 08:01 Dose: Not Given Dextrose (Dextrose 50% Inj) 0 ml IV STAT PRN; Protocol PRN Reason: Hypoglycemia Protocol Ergocalciferol (Drisdol 50,000 Intl Units Cap) 1 cap PO Q7D [facility] Last Admin: 04/11/18 16:07 Dose: Not Given Ferrous Gluconate (Fergon) 324 mg PO TID [facility] Last Admin: 04/17/18 10:35 Dose: 324 mg Furosemide (Lasix) 40 mg IVP DAILY [facility] Last Admin: 04/17/18 10:34 Dose: 40 mg Heparin Sodium (Porcine) (Heparin) 5,000 units SC Q8H [facility]; Protocol Last Admin: 04/17/18 06:29 Dose: 5,000 units Dextrose (Dextrose 5% In Water 1000 Ml) 1,000 mls @ 0 mls/hr IV .Q0M PRN; Protocol PRN Reason: Hypoglycemia Protocol Insulin Detemir (Levemir) 10 unit SC HS [facility] Insulin Human Lispro (Humalog Low) 0 units SC ACHS [facility]; Protocol Last Admin: 04/17/18 12:46 Dose: 3 units Metoprolol Tartrate (Lopressor) 25 mg PO BID [facility] Last Admin: 04/17/18 10:35 Dose: 25 mg Nicotine (Nicoderm Cq) 1 patch TD DAILY [facility] Last Admin: 04/17/18 10:36 Dose: 1 patch Pantoprazole Sodium (Protonix Ec Tab) 40 mg PO ACB [facility] Last Admin: 04/17/18 10:34 Dose: 40 mg Paroxetine HCl (Paxil) 5 mg PO HS [facility] Prednisone (Prednisone Tab) 10 mg PO DAILY [facility] Vitamin B Complex/Vit C/Folic Acid (Nephro-Enrrique) 1 tab PO 0800 [facility] Last Admin: 04/17/18 10:35 Dose: 1 tab - Labs Labs: 04/17/18 06:40 04/17/18 06:40 PT 11.9 SECONDS (9.4-12.5) 04/11/18 12:25 INR 1.05 04/11/18 12:25 APTT 25.3 Seconds (26.9-38.3) L 04/11/18 12:25 Assessment and Plan - Assessment and Plan (Free Text) Assessment: Infectious diseases Attending Physician Attestation Patient seen and examined, discussed with clinical medical assistant. I have reviewed the patient's history of present illness, past medical, social, personal and family histories, pertinent physical exam findings, course so far in this hospital admission, pertinent laboratory and imaging results. I agree with the above findings, assessment and plan. In addition, continue to monitor off antibiotics - patient is S/P treatment for possible hospital-acquired pneumonia with Vancomycin and Cefepime, on top of CHF and COPD.
[2018-04-17] MEDS ORDERED: MethylPREDNISolone 40 mg Vial IVP SCH (10:00)
--- NOTE | 2018-04-17 10:19 | RAD ---
Date of service: 04/17/2018 HISTORY: Follow up right lung white out COMPARISON: 04/16/2018 FINDINGS: LUNGS: Right-sided volume loss with shift of heart and mediastinum towards the right. There is almost complete opacification of the right janay thorax unchanged from prior examination. There is some residual aerated lung in the upper right janay thorax there is patchy opacity at the left base common nonspecific. Infiltrate versus atelectasis. This has increased compared to the prior examination.. PLEURA: Possible large right pleural effusion. No evidence of left pleural effusion. No pneumothorax. CARDIOVASCULAR: No aortic atherosclerotic calcification present. Normal cardiac size. No congestive change. Right central venous infusion port unchanged. OSSEOUS STRUCTURES: No significant abnormalities. VISUALIZED UPPER ABDOMEN: Normal. OTHER FINDINGS: None. IMPRESSION: Almost complete opacification of right janay thorax with right-sided volume loss and shift of the heart mediastinum towards the right. Patchy opacity at left base. Possible pneumonia.
[2018-04-17] MEDS: Pantoprazole 40 mg EC Tab PO SCH (10:34)
[2018-04-17] MEDS: Multivitamin Vitamin B Complex (Nephro-Vite) Tab PO SCH (10:35)
--- NOTE | 2018-04-17 10:54 | CP.PCM.PN ---
<Rubio Piedra - Last Filed: 04/17/18 10:51> Subjective - Date & Time of Evaluation Date of Evaluation: 04/17/18 Time of Evaluation: 10:51 - Subjective Subjective: PGY-2 heme/onc progress note for Dr Gleason No acute events noted overnight. Patient uncooperative with interview - stated she wants her xanax. Objective - Vital Signs/Intake and Output Vital Signs (last 24 hours): Temp Pulse Resp BP Pulse Ox 97.8 F 88 20 126/66 99 04/17/18 06:00 04/17/18 10:35 04/17/18 06:00 04/17/18 10:35 04/17/18 06:00 Intake and Output: 04/17/18 04/17/18 06:59 18:59 Intake Total 120 Output Total 600 Balance -480 - Medications Medications: Current Medications Acetylcysteine (Acetylcysteine 20%) 4 ml IH BIDRESP [facility] Last Admin: 04/17/18 08:00 Dose: Not Given Albuterol/Ipratropium (Duoneb 3 Mg/0.5 Mg (3 Ml) Ud) 3 ml IH Q2H PRN PRN Reason: Shortness of Breath Last Admin: 04/17/18 04:10 Dose: 3 ml Arformoterol Tartrate (Brovana) 15 mcg IH [id number] [facility] Last Admin: 04/17/18 08:00 Dose: Not Given Aspirin (Aspirin Chewable) 81 mg PO DAILY [facility] Last Admin: 04/17/18 10:35 Dose: 81 mg Atorvastatin Calcium (Lipitor) 40 mg PO DAILY [facility] Last Admin: 04/17/18 10:35 Dose: 40 mg Bacitracin (Bacitracin) 0 gm TOP BID [facility] Last Admin: 04/16/18 18:00 Dose: Not Given Budesonide (Pulmicort Respules) 0.5 mg IH [id number] [facility] Last Admin: 04/17/18 08:01 Dose: Not Given Dextrose (Dextrose 50% Inj) 0 ml IV STAT PRN; Protocol PRN Reason: Hypoglycemia Protocol Ergocalciferol (Drisdol 50,000 Intl Units Cap) 1 cap PO Q7D [facility] Last Admin: 04/11/18 16:07 Dose: Not Given Ferrous Gluconate (Fergon) 324 mg PO TID [facility] Last Admin: 04/17/18 10:35 Dose: 324 mg Furosemide (Lasix) 40 mg IVP DAILY [facility] Last Admin: 04/17/18 10:34 Dose: 40 mg Heparin Sodium (Porcine) (Heparin) 5,000 units SC Q8H [facility]; Protocol Last Admin: 04/17/18 06:29 Dose: 5,000 units Dextrose (Dextrose 5% In Water 1000 Ml) 1,000 mls @ 0 mls/hr IV .Q0M PRN; Protocol PRN Reason: Hypoglycemia Protocol Insulin Detemir (Levemir) 10 unit SC [facility] Insulin Human Lispro (Humalog Low) 0 units SC ACHS [facility]; Protocol Metoprolol Tartrate (Lopressor) 25 mg PO BID [facility] Last Admin: 04/17/18 10:35 Dose: 25 mg Nicotine (Nicoderm Cq) 1 patch TD DAILY [facility] Last Admin: 04/17/18 10:36 Dose: 1 patch Pantoprazole Sodium (Protonix Ec Tab) 40 mg PO ACB [facility] Last Admin: 04/17/18 10:34 Dose: 40 mg Paroxetine HCl (Paxil) 5 mg PO [facility] Prednisone (Prednisone Tab) 10 mg PO DAILY [facility] Vitamin B Complex/Vit C/Folic Acid (Nephro-Enrrique) 1 tab PO 0800 [facility] Last Admin: 04/17/18 10:35 Dose: 1 tab - Labs Labs: 04/17/18 06:40 04/17/18 06:40 PT 11.9 SECONDS (9.4-12.5) 04/11/18 12:25 INR 1.05 04/11/18 12:25 APTT 25.3 Seconds (26.9-38.3) L 04/11/18 12:25 - Additional Findings Additional findings: - Constitutional Appears: No Acute Distress, Older Than Stated Age - Head Exam Head Exam: ATRAUMATIC, NORMAL INSPECTION - Eye Exam Eye Exam: EOMI, Normal appearance, PERRL. absent: Scleral icterus - ENT Exam ENT Exam: Mucous Membranes Moist - Respiratory Exam Respiratory Exam: Decreased Breath Sounds, Rales Additional comments: rales R>L - Cardiovascular Exam Cardiovascular Exam: Tachycardia, REGULAR RHYTHM, +S1, +S2. absent: JVD - GI/Abdominal Exam GI & Abdominal Exam: Normal Bowel Sounds, Soft. absent: Tenderness - Extremities Exam Extremities exam: Positive for: normal capillary refill, normal inspection, pedal pulses present - Neurological Exam Neurological exam: Alert, Oriented x3 - Psychiatric Exam Psychiatric exam: Anxious - Skin Skin Exam: Normal Color, Warm Assessment and Plan - Assessment and Plan (Free Text) Plan: Mrs Granado is a 57 year old female with a PMHx history of breast cancer, severe COPD, anxiety, pneumonia, pleural effusions, CKD, xanax abuse, hx of non-compliance, hx of xanax/oxycodone overose, who presented to the ED in respiratory distress while on non-rebreather. Patient was then intubated while in ED due to lack of airway protection. Hematology/oncology has been consulted for anemia and her hx of left-sided breast cancer. Anemia -likely anemia of chronic disease 2/2 to ckd -Hgb on admission: 7.3 -> today 9.4 * chronically anemic since 02/2017 * transfused 2u pRBCs on 04/12/18 -recent admission 03/31/18 there were orders for iron studies, retic count, peripheral smear, B12, folate * retic count: 1.72, B12: 476, folate: 17, iron: 44, TIBC 213, %sat: 21, ferritin: 206, MCV: 96, LDH: 561 -has received erythropoetin in the past for anemia due to renal disease * CKD 3 and now with DAHLIA -recent admission 03/31/18 there were orders for epo level, immunofixation, spep, LDH * epo 22.8 (mildly high) * ABDIRIZAK and SPEP -> selective protein loss pattern, suggestive of nephrotic syndrome -1 dose of darbapoetin 40mcg sc on 04/06/18 - we will continue this once a week * darbopoetin 40mcg sc given on 04/13/18 -ferrous gluconate 324mg po qd now discontinued -recommend to continue darbapoetin injections outpatient, recommend 2 more injections over the next 2 weeks 7 days apart and then recommend to be re- evaluated by heme/onc physician Hx L breast cancer (Dx 2016) invasive ductal carcinoma -ER+/HER2+ -Got 1 cycle of sandee-adjuvant chemo. After that, refused chemo/surgery. -CT chest w/o contrast showed lymphadenopathy suspicious for tumor * etiology could be malignancy, infectious, inflammatory * patient was advised that this abnormal finding on CT needs to be followed up with an oncologist - this was reiterated to her multiple times on the previous admission and again on this current admission Dispo: patient accepted to LT[facility] Seen and discussed with Dr Gleason <Melanie Gleason P - Last Filed: 04/20/18 21:53> Objective - Vital Signs/Intake and Output Vital Signs (last 24 hours): Temp Pulse Resp BP Pulse Ox 98.1 F 93 H 18 147/54 L 96 04/20/18 21:37 04/20/18 21:37 04/20/18 21:37 04/20/18 21:37 04/20/18 21:37 Intake and Output: 04/20/18 04/21/18 18:59 06:59 Intake Total 860 Output Total 400 Balance 460 - Medications Medications: Current Medications Albuterol Sulfate (Albuterol 0.083% Inhal Elvie (2.5 Mg/3 Ml) Ud) 2.5 mg INH [id number] [facility] Last Admin: 04/20/18 13:45 Dose: 2.5 mg Albuterol/Ipratropium (Duoneb 3 Mg/0.5 Mg (3 Ml) Ud) 3 ml IH Q2H PRN PRN Reason: Shortness of Breath Last Admin: 04/19/18 15:34 Dose: 3 ml Arformoterol Tartrate (Brovana) 15 mcg IH [id number] [facility] Last Admin: 04/20/18 07:55 Dose: Not Given Aspirin (Aspirin Chewable) 81 mg PO DAILY [facility] Last Admin: 04/20/18 09:08 Dose: 81 mg Atorvastatin Calcium (Lipitor) 40 mg PO DAILY [facility] Last Admin: 04/20/18 09:08 Dose: 40 mg Bacitracin (Bacitracin) 0 gm TOP BID [facility] Last Admin: 04/20/18 17:27 Dose: 1 applic Benzocaine/Menthol (Cepacol Sore Throat) 1 vy MT Q4H PRN PRN Reason: Sore Throat Last Admin: 04/20/18 13:05 Dose: 1 vy Budesonide (Pulmicort Respules) 0.5 mg IH [id number] [facility] Last Admin: 04/20/18 07:55 Dose: Not Given Dextrose (Dextrose 50% Inj) 0 ml IV STAT PRN; Protocol PRN Reason: Hypoglycemia Protocol Ergocalciferol (Drisdol 50,000 Intl Units Cap) 1 cap PO Q7D [facility] Last Admin: 04/18/18 17:45 Dose: 1 cap Ferrous Gluconate (Fergon) 324 mg PO DAILY [facility] Furosemide (Lasix) 40 mg IVP DAILY [facility] Last Admin: 04/20/18 09:13 Dose: 40 mg Heparin Sodium (Porcine) (Heparin) 5,000 units SC Q8 [facility]; Protocol Last Admin: 04/20/18 17:25 Dose: 5,000 units Dextrose (Dextrose 5% In Water 1000 Ml) 1,000 mls @ 0 mls/hr IV .Q0M PRN; Protocol PRN Reason: Hypoglycemia Protocol Insulin Detemir (Levemir) 10 unit SC HS [facility] Last Admin: 04/19/18 22:24 Dose: 10 applic Insulin Human Lispro (Humalog Low) 0 units SC ACHS [facility]; Protocol Last Admin: 04/20/18 17:22 Dose: 4 units Metoprolol Tartrate (Lopressor) 25 mg PO BID [facility] Last Admin: 04/20/18 17:22 Dose: 25 mg Nicotine (Nicoderm Cq) 1 patch TD DAILY [facility] Last Admin: 04/20/18 09:14 Dose: 1 patch Pantoprazole Sodium (Protonix Ec Tab) 40 mg PO ACB [facility] Last Admin: 04/20/18 09:09 Dose: 40 mg Paroxetine HCl (Paxil) 5 mg PO HS [facility] Last Admin: 04/19/18 22:25 Dose: 5 mg Prednisone (Prednisone Tab) 40 mg PO DAILY [facility] Last Admin: 04/20/18 09:09 Dose: 40 mg Vitamin B Complex/Vit C/Folic Acid (Nephro-Enrrique) 1 tab PO 0800 [facility] Last Admin: 04/20/18 09:08 Dose: 1 tab - Labs Labs: 04/20/18 07:20 04/20/18 07:20 PT 11.9 SECONDS (9.4-12.5) 04/11/18 12:25 INR 1.05 04/11/18 12:25 APTT 25.3 Seconds (26.9-38.3) L 04/11/18 12:25 Attending/Attestation - Attestation I have personally seen and examined this patient.: Yes I have fully participated in the care of the patient.: Yes I have reviewed all pertinent clinical information, including history, physical exam and plan: Yes
[2018-04-17] MEDS: Bacitracin Ointment 30 GM TUBE TOP SCH ×2 (11:00→17:17)
--- NOTE | 2018-04-17 12:14 | PN ---
DATE: 04/17/2018 PULMONARY PROGRESS NOTE REFERRING PHYSICIAN: Darius Rdz MD SUBJECTIVE: The patient is sitting up in bed. No overnight events reported. The patient reports feeling better still has some shortness of breath. No headache, rhinitis, chest pain, abdominal pain, nausea, vomiting, diarrhea or leg pain reported. OBJECTIVE: GENERAL: No acute distress. VITAL SIGNS: Blood pressure 146/62, pulse 85, temperature 97.8, oxygen saturation 99% on nasal cannula. HEENT: Moist mucous membranes. Crowded airway. NECK: Supple. No JVD. LUNGS: Decreased breath sounds on the right. Scattered rhonchi. CARDIOVASCULAR: S1 and S2 audible. ABDOMEN: Soft and nontender. No distention. EXTREMITIES: Bilateral lower extremity edema. NEUROLOGIC: Awake, alert, and verbal. Follows commands. MEDICATIONS: Reviewed. DuoNeb 4 mL inhalation twice a day, DuoNeb 3 mL inhalation every 2 hours p.r.n., Brovana 15 mcg every 12 hours, aspirin 81 mg daily, Lipitor 40 mg daily, bacitracin topically twice a day to affected area, Pulmicort 0.5 mg inhalation every 12 hours, ergocalciferol 50,000 units every 7 days, ferrous gluconate 324 mg 3 times a day, Lasix 40 mg IV push daily, heparin 5000 units subcutaneously every 8 hours, Levemir 10 units subcutaneously at bedtime, Humalog sliding scale a.c. and at bedtime, Solu-Medrol 20 mg IV push daily, metoprolol tartrate 25 mg twice a day, nicotine patch transdermally daily, Protonix 40 mg in the morning, Paxil 5 mg at bedtime, Nephro-Enrrique one tablet daily. LABORATORY DATA: Reviewed. Sodium 142, potassium 4.0, chloride 105, carbon dioxide 35, anion gap 6, BUN 95, creatinine 2.5, GFR 20, random glucose 250, calcium 7.7, total bilirubin 0.4, AST 24, ALT 79, alkaline phosphatase 83, total protein 5.3, albumin 3.0, globulin 2.2 and albumin globulin ratio 1.3. WBC 10.9, RBC 3.11, hemoglobin 8.8, hematocrit 30, and platelets 147. Chest x-ray shows almost complete opacification of the right hemithorax with right-sided volume loss and towards the right patchy opacity of left base, possible pneumonia. IMPRESSION AND PLAN: Respiratory failure, atelectasis, chronic obstructive lung disease, diabetes, pneumonia, history of breast cancer, recurrent urinary tract infection, obstructive sleep apnea syndrome. The patient with history of noncompliance of medications and followup in the past. Refuses to use bilevel positive airway pressure, continuous positive airway pressure machine. Sleep apnea precaution. Head of bed elevated to 45 degrees. We will discontinue Solu-Medrol and prednisone 10 mg daily. Continue gastric prophylaxis, deep venous thrombosis prophylaxis. Continue pulmonary toileting, chest physiotherapy, incentive spirometry. The patient is at high risk for respiratory failure. Fall precautions. This patient was seen and examined with Dr. Rucker. Discussed assessment and plan as described above. Thank you for this consult. We will follow with you. Didier Dennis APN Lisa Rucker MD SAADIA
--- NOTE | 2018-04-17 12:32 | CP.PCM.PN ---
Subjective - Date & Time of Evaluation Date of Evaluation: 04/17/18 Time of Evaluation: 12:31 - Subjective Subjective: Nephrology Consultation Note: Assessment: stable DAHLIA likely ATN, non-oliguric: improving acute on chronc respi acidosis with respi failure with renal compensation rt pleural effusion with chest wall mass ? 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 overall poor pro gnosis, seen by palliative care Hypertension control with meds as ordered. Maintain hemodynamics stable. Avoid hypotension. Patient not on ACEI/ARB due to recent DAHLIA, hyperkalemic tendency Monitor Input/Output, daily weights and renal function with basic metabolic panel will defer use of [place] to heme/onc in view of her recent breast malignancy with concerns for mets. PRBC as needed continue with iron 325 mg TID, MVI and weekly Vit D supplement lytes as needed seen by cardio heme/onc and pulmonary continue with lasix IR eval for possible thoracocentesis Dose meds/antibiotics for reduced GFR. Avoid fleets enema/magnesium based laxatives. Avoid nephrotoxins/NSAIDs/ iodinated contrast (unless needed emergently) Glycemic control. pt need to stop smoking Further work up/management as per primary team Thanks for allowing me to participate in care of your patient. Will follow patient with you. Please call if any Qs. had d/w team Dr Marco Antonio Chatman Office: [phone] Chief Complaint; SOB Reason for consult: CKD 3, DAHLIA HPI: Pt is a 57 F with hx of diabetes Mellitus ( years), hypertension (years) COPD/asthma, active smoker, breast cancer s/p surgery 2 years ago but didn't complete treatment now with mets, anemia, CKD stage 3 with baseline cr 1.8 mg/dL and AKIs (peaked cr 4) admitted with acute respi distress hypercapnic respi failure and intubated/extubated, now seen for CKD management Denies OTC/herbal meds or NSAIDs No recent iodinated contrast exposure. No obvious episodes of low BP. pt was recently admitted for same and she signed out AMA. ROS: pt is a poor historian and overall hx is limited from her. SOB better. no chest pain Physical Examination: General Appearance: stable appearing. on o2 Vitals reviewed and noted as below Head; Atraumatic, normocephalic ENT: no ulcers no thrush. Tongue is midline. Oropharynx: no rash or ulcers. she is hard of hearing EYES: Pupils are equal, round and reactive to light accommodation. Eye muscles and extraocular movement intact. Sclera is anicteric. has some periorbital puffiness Neck; supple no lymphadenopathy, no thyromegaly or bruit Lungs: Improved respiratory rate/effort. Breath sounds reduced at rt side. has wheezine and rales + Heart: normal rate. s1s2 normal. No rub or gallop. Extremities: 1-2+ edema. No varicose veins Neurological: Patient is alert, awake and oriented to person, place and time. No focal deficit. Strength bilateral appropriate and equal Skin: Warm and dry. Normal turgor. No rash. Palpitation: Normal elasticity for age Abdomen: Abdomen is soft. Bowel sounds +. There is no abdominal tenderness, no guarding/rigidity no organomegaly Psych: lack insight and flat affect/mood MSK: no joint tenderness or swelling. Digits and nails normal, no deformity : kidney or bladder not palpable Labs/imaging reviewed. Past medical history, past surgical history, family history, social history, allergy reviewed and noted as below Family hx: no hx of CKD. Rest non-contributory renal imaging: b/l cysts echo normal LVEF TSAt 26% ferritin 45 Serum FLC assay WNL ABDIRIZAK neg PTH 154 Vit D 17 Objective - Vital Signs/Intake and Output Vital Signs (last 24 hours): Temp Pulse Resp BP Pulse Ox 97.8 F 88 20 126/66 99 04/17/18 06:00 04/17/18 10:35 04/17/18 06:00 04/17/18 10:35 04/17/18 06:00 Intake and Output: 04/17/18 04/17/18 06:59 18:59 Intake Total 120 Output Total 600 Balance -480 - Medications Medications: Current Medications Acetylcysteine (Acetylcysteine 20%) 4 ml IH BIDRESP [facility] Last Admin: 04/17/18 08:00 Dose: Not Given Albuterol/Ipratropium (Duoneb 3 Mg/0.5 Mg (3 Ml) Ud) 3 ml IH Q2H PRN PRN Reason: Shortness of Breath Last Admin: 04/17/18 04:10 Dose: 3 ml Arformoterol Tartrate (Brovana) 15 mcg IH [id number] [facility] Last Admin: 04/17/18 08:00 Dose: Not Given Aspirin (Aspirin Chewable) 81 mg PO DAILY [facility] Last Admin: 04/17/18 10:35 Dose: 81 mg Atorvastatin Calcium (Lipitor) 40 mg PO DAILY [facility] Last Admin: 04/17/18 10:35 Dose: 40 mg Bacitracin (Bacitracin) 0 gm TOP BID [facility] Last Admin: 04/16/18 18:00 Dose: Not Given Benzocaine/Menthol (Cepacol Sore Throat) 1 vy MT Q4H PRN PRN Reason: Sore Throat Budesonide (Pulmicort Respules) 0.5 mg IH [id number] [facility] Last Admin: 04/17/18 08:01 Dose: Not Given Dextrose (Dextrose 50% Inj) 0 ml IV STAT PRN; Protocol PRN Reason: Hypoglycemia Protocol Ergocalciferol (Drisdol 50,000 Intl Units Cap) 1 cap PO Q7D [facility] Last Admin: 04/11/18 16:07 Dose: Not Given Ferrous Gluconate (Fergon) 324 mg PO TID [facility] Last Admin: 04/17/18 10:35 Dose: 324 mg Furosemide (Lasix) 40 mg IVP DAILY [facility] Last Admin: 04/17/18 10:34 Dose: 40 mg Heparin Sodium (Porcine) (Heparin) 5,000 units SC Q8H [facility]; Protocol Last Admin: 04/17/18 06:29 Dose: 5,000 units Dextrose (Dextrose 5% In Water 1000 Ml) 1,000 mls @ 0 mls/hr IV .Q0M PRN; Protocol PRN Reason: Hypoglycemia Protocol Insulin Detemir (Levemir) 10 unit SC HS [facility] Insulin Human Lispro (Humalog Low) 0 units SC ACHS [facility]; Protocol Metoprolol Tartrate (Lopressor) 25 mg PO BID [facility] Last Admin: 04/17/18 10:35 Dose: 25 mg Nicotine (Nicoderm Cq) 1 patch TD DAILY [facility] Last Admin: 04/17/18 10:36 Dose: 1 patch Pantoprazole Sodium (Protonix Ec Tab) 40 mg PO ACB [facility] Last Admin: 04/17/18 10:34 Dose: 40 mg Paroxetine HCl (Paxil) 5 mg PO HS [facility] Prednisone (Prednisone Tab) 10 mg PO DAILY [facility] Vitamin B Complex/Vit C/Folic Acid (Nephro-Enrrique) 1 tab PO 0800 [facility] Last Admin: 04/17/18 10:35 Dose: 1 tab - Labs Labs: 04/17/18 06:40 04/17/18 06:40 PT 11.9 SECONDS (9.4-12.5) 04/11/18 12:25 INR 1.05 04/11/18 12:25 APTT 25.3 Seconds (26.9-38.3) L 04/11/18 12:25
[2018-04-17] MEDS: Insulin Lispro (humaLOG) LOW Coverage SC SCH ×3 (12:46→21:40)
--- NOTE | 2018-04-17 14:38 | PN ---
DATE: 04/17/2018 REASON FOR CONSULTATION AND FOLLOWUP: Cardiac evaluation, status post respiratory failure, anemia, extubated, history of tobacco abuse. SUBJECTIVE: The patient denies any chest pain, shortness of breath or any palpitation. Status post 2 packs of RBC unit transfused while the patient was in the unit. OBJECTIVE: GENERAL: Not in apparent distress. VITAL SIGNS: Temperature afebrile, heart rate 85, blood pressure 146/62. HEENT: PERRLA. Extraocular muscles intact. NECK: Supple. No carotid bruits. No thyromegaly. CHEST: Clear to auscultation. HEART: S1 and S2 regular. ABDOMEN: Soft. EXTREMITIES: Clubbing and cyanosis negative. LABORATORY DATA: Blood workup as follows; WBC 10.9, hemoglobin 8.8, hematocrit 30, platelet count 147. Chemistry showed sodium 142, potassium 4, chloride 105, carbon dioxide 37, anion gap 6, BUN 95, creatinine 2.5. IMPRESSION: A 57-year-old obese female, active tobacco abuse, narcotic dependence, admitted after signing out against medical advice, came back with respiratory distress, went for smoking and came back requiring intubation pneumonia, successfully intubated, history of baseline renal insufficiency, came in with severe anemia, status post 2 packs of red blood cell units was transfused. History of stage IV chronic kidney disease. RECOMMENDATION: Continue aspirin, continue supplement electrolytes as noted, continue DVT prophylaxis, continue atorvastatin, gentle diuretics, monitor renal function closely. Continue multivitamin. Continue beta brendon. We will follow with you. Overall, patient's condition is critical. roasterman prognosis is guarded. Needs to be compliant with complete cessation of smoking. Thank you Dr. Rick, for providing us the opportunity in taking care of the patient Yazmin Granado. Lisa Hernandez MD
--- NOTE | 2018-04-17 16:27 | CP.PCM.PN ---
<Aj Mays - Last Filed: 04/17/18 17:01> Subjective - Date & Time of Evaluation Date of Evaluation: 04/17/18 Time of Evaluation: 07:20 - Subjective Subjective: Pt seen and examined this morning. Per nursing, pt constantly requesting xanax and percocet. Pt breathing labored, pt informed that medical team does not want her to take xanax and percocet because it will depress her breathing. Objective - Vital Signs/Intake and Output Vital Signs (last 24 hours): Temp Pulse Resp BP Pulse Ox 97.8 F 88 20 126/66 99 04/17/18 06:00 04/17/18 10:35 04/17/18 06:00 04/17/18 10:35 04/17/18 06:00 Intake and Output: 04/17/18 04/17/18 06:59 18:59 Intake Total 120 360 Output Total 600 500 Balance -480 -140 - Medications Medications: Current Medications Acetylcysteine (Acetylcysteine 20%) 4 ml IH BIDRESP [facility] Last Admin: 04/17/18 08:00 Dose: Not Given Albuterol/Ipratropium (Duoneb 3 Mg/0.5 Mg (3 Ml) Ud) 3 ml IH Q2H PRN PRN Reason: Shortness of Breath Last Admin: 04/17/18 04:10 Dose: 3 ml Arformoterol Tartrate (Brovana) 15 mcg IH [id number] [facility] Last Admin: 04/17/18 08:00 Dose: Not Given Aspirin (Aspirin Chewable) 81 mg PO DAILY [facility] Last Admin: 04/17/18 10:35 Dose: 81 mg Atorvastatin Calcium (Lipitor) 40 mg PO DAILY [facility] Last Admin: 04/17/18 10:35 Dose: 40 mg Bacitracin (Bacitracin) 0 gm TOP BID [facility] Last Admin: 04/17/18 11:00 Dose: Not Given Benzocaine/Menthol (Cepacol Sore Throat) 1 vy MT Q4H PRN PRN Reason: Sore Throat Budesonide (Pulmicort Respules) 0.5 mg IH [id number] [facility] Last Admin: 04/17/18 08:01 Dose: Not Given Dextrose (Dextrose 50% Inj) 0 ml IV STAT PRN; Protocol PRN Reason: Hypoglycemia Protocol Ergocalciferol (Drisdol 50,000 Intl Units Cap) 1 cap PO Q7D [facility] Last Admin: 04/11/18 16:07 Dose: Not Given Ferrous Gluconate (Fergon) 324 mg PO TID [facility] Last Admin: 04/17/18 14:46 Dose: 324 mg Furosemide (Lasix) 40 mg IVP DAILY [facility] Last Admin: 04/17/18 10:34 Dose: 40 mg Heparin Sodium (Porcine) (Heparin) 5,000 units SC Q8H [facility]; Protocol Last Admin: 04/17/18 14:46 Dose: 5,000 units Dextrose (Dextrose 5% In Water 1000 Ml) 1,000 mls @ 0 mls/hr IV .Q0M PRN; Protocol PRN Reason: Hypoglycemia Protocol Insulin Detemir (Levemir) 10 unit SC HS [facility] Insulin Human Lispro (Humalog Low) 0 units SC ACHS [facility]; Protocol Last Admin: 04/17/18 12:46 Dose: 3 units Metoprolol Tartrate (Lopressor) 25 mg PO BID [facility] Last Admin: 04/17/18 10:35 Dose: 25 mg Nicotine (Nicoderm Cq) 1 patch TD DAILY [facility] Last Admin: 04/17/18 10:36 Dose: 1 patch Pantoprazole Sodium (Protonix Ec Tab) 40 mg PO ACB [facility] Last Admin: 04/17/18 10:34 Dose: 40 mg Paroxetine HCl (Paxil) 5 mg PO HS [facility] Prednisone (Prednisone Tab) 10 mg PO DAILY [facility] Vitamin B Complex/Vit C/Folic Acid (Nephro-Silvio) 1 tab PO 0800 [facility] Last Admin: 04/17/18 10:35 Dose: 1 tab - Labs Labs: 04/17/18 06:40 04/17/18 06:40 PT 11.9 SECONDS (9.4-12.5) 04/11/18 12:25 INR 1.05 04/11/18 12:25 APTT 25.3 Seconds (26.9-38.3) L 04/11/18 12:25 - Head Exam Head Exam: ATRAUMATIC, NORMOCEPHALIC - Eye Exam Eye Exam: EOMI - ENT Exam ENT Exam: Mucous Membranes Moist - Neck Exam Neck Exam: Full ROM - Respiratory Exam Respiratory Exam: Decreased Breath Sounds, NORMAL BREATHING PATTERN. absent: Accessory Muscle Use, Respiratory Distress - Cardiovascular Exam Cardiovascular Exam: RRR, +S1, +S2. absent: Diastolic murmur, Murmur - GI/Abdominal Exam GI & Abdominal Exam: Soft, Normal Bowel Sounds. absent: Tenderness - Extremities Exam Extremities Exam: Full ROM. absent: Calf Tenderness Additional comments: excoriations BL UE - Neurological Exam Neurological Exam: Alert, Awake, Oriented x3 - Psychiatric Exam Psychiatric exam: Normal Affect, Normal Mood - Skin Skin Exam: Dry, Intact, Warm Assessment and Plan - Assessment and Plan (Free Text) Assessment: Pt is a 57 yo female with a PMH of Breast CA, asthma, COPD, anxiety, DM, and a right pleural effusion who presented with acute hypercapnic respiratory failure, subsequently extubated and transferred to medicine floors Plan: Acute Hypercapnic Respiratory Failure - Likely 2/2 tobacco use in the setting of her known asthma and COPD - duonebs, prednisone, pulmicort - CXR white out of right side - Chest CT: follow up - Pulm, rec refused BIPAP, elevate HOB 45 degrees, cont pulm toileting, incentive spirometry HCAP - Strep pneumo not detected, legionella negative, MRSA negative, blood cultures NGTD - Procal 0.55 - ID following DAHLIA on CKD - BUN 95 - Cr 2.5 - Likely ATN in setting of diabetic and hypertensive chronic kidney disease - Nephrology, cont HTN control, continue with lasix, IR eval for possible thoracocentesis Excoriations on BL UE - bacitracin ointment Anxiety - psyc advises not to continue taking benzos due to the fact that pt has overdosed multiple times - Paxil Breast CA - Palliative care, goals of care and advance care planning - Heme/ Onc, 1 dose of darbapoetin 40mcg sc on 04/13/18 - we will continue this once a week, pt advised to see an oncologist as an out pt for her breast CA, she has been advised this before on previous admissions HLD - lipitor HTN - metoprolol DM - levemir 10 HS - accuchecks - ISS Tobacco abuse - Counseled, pt amendable to cessation - nicotine patch Ppx - heparin - protonix Pt seen, examined, assessment and plan discussed with Dr Whit Mays PGY1, Internal Medicine Resident <Whit Rick R - Last Filed: 04/17/18 18:07> Objective - Vital Signs/Intake and Output Vital Signs (last 24 hours): Temp Pulse Resp BP Pulse Ox 97.8 F 88 20 130/52 L 99 04/17/18 06:00 04/17/18 10:35 04/17/18 06:00 04/17/18 17:14 04/17/18 06:00 Intake and Output: 04/17/18 04/17/18 06:59 18:59 Intake Total 120 360 Output Total 600 500 Balance -480 -140 - Medications Medications: Current Medications Acetylcysteine (Acetylcysteine 20%) 4 ml IH BIDRESP [facility] Last Admin: 04/17/18 08:00 Dose: Not Given Albuterol/Ipratropium (Duoneb 3 Mg/0.5 Mg (3 Ml) Ud) 3 ml IH Q2H PRN PRN Reason: Shortness of Breath Last Admin: 04/17/18 16:35 Dose: 3 ml Arformoterol Tartrate (Brovana) 15 mcg IH [id number] [facility] Last Admin: 04/17/18 08:00 Dose: Not Given Aspirin (Aspirin Chewable) 81 mg PO DAILY [facility] Last Admin: 04/17/18 10:35 Dose: 81 mg Atorvastatin Calcium (Lipitor) 40 mg PO DAILY [facility] Last Admin: 04/17/18 10:35 Dose: 40 mg Bacitracin (Bacitracin) 0 gm TOP BID [facility] Last Admin: 04/17/18 17:17 Dose: 1 applic Benzocaine/Menthol (Cepacol Sore Throat) 1 vy MT Q4H PRN PRN Reason: Sore Throat Budesonide (Pulmicort Respules) 0.5 mg IH [id number] [facility] Last Admin: 04/17/18 08:01 Dose: Not Given Dextrose (Dextrose 50% Inj) 0 ml IV STAT PRN; Protocol PRN Reason: Hypoglycemia Protocol Ergocalciferol (Drisdol 50,000 Intl Units Cap) 1 cap PO Q7D [facility] Last Admin: 04/11/18 16:07 Dose: Not Given Ferrous Gluconate (Fergon) 324 mg PO TID [facility] Last Admin: 04/17/18 14:46 Dose: 324 mg Furosemide (Lasix) 40 mg IVP DAILY [facility] Last Admin: 04/17/18 10:34 Dose: 40 mg Heparin Sodium (Porcine) (Heparin) 5,000 units SC Q8H [facility]; Protocol Last Admin: 04/17/18 14:46 Dose: 5,000 units Dextrose (Dextrose 5% In Water 1000 Ml) 1,000 mls @ 0 mls/hr IV .Q0M PRN; Protocol PRN Reason: Hypoglycemia Protocol Insulin Detemir (Levemir) 10 unit SC HS [facility] Insulin Human Lispro (Humalog Low) 0 units SC ACHS [facility]; Protocol Last Admin: 04/17/18 17:13 Dose: 4 units Metoprolol Tartrate (Lopressor) 25 mg PO BID [facility] Last Admin: 04/17/18 17:14 Dose: 25 mg Nicotine (Nicoderm Cq) 1 patch TD DAILY [facility] Last Admin: 04/17/18 10:36 Dose: 1 patch Pantoprazole Sodium (Protonix Ec Tab) 40 mg PO ACB [facility] Last Admin: 04/17/18 10:34 Dose: 40 mg Paroxetine HCl (Paxil) 5 mg PO HS [facility] Prednisone (Prednisone Tab) 10 mg PO DAILY [facility] Vitamin B Complex/Vit C/Folic Acid (Nephro-Silvio) 1 tab PO 0800 [facility] Last Admin: 04/17/18 10:35 Dose: 1 tab - Labs Labs: 04/17/18 06:40 04/17/18 06:40 PT 11.9 SECONDS (9.4-12.5) 04/11/18 12:25 INR 1.05 04/11/18 12:25 APTT 25.3 Seconds (26.9-38.3) L 04/11/18 12:25 Attending/Attestation - Attestation I have personally seen and examined this patient.: Yes I have fully participated in the care of the patient.: Yes I have reviewed all pertinent clinical information, including history, physical exam and plan: Yes Notes (Text): Patient seen and examined by me with resident at 10:50 AM on 04/17/18. Case including HPI, physical exam, and assessment and plan discussed with resident. Agree with above with following additions/corrections. Patient is a 57 year old female with past medical history significant for COPD, asthma, untreated breast cancer, anemia, depression and anxiety, and recurrent UTIs that presented to the emergency room for respiratory failure. Patient states that she feels ok. Complains of some shortness of breath. Also states she is having throat pain and pain with swallowing, she is asking for percocet. Patient is eating. She denies any chest pain or palpitations. No headaches or dizziness. No fevers or chills. No nausea, vomiting, or abdominal pain. No dysuria. Physical exam: General: Awake and alert sitting up in bed in no acute distress HEENT: Normocephalic, atraumatic. Extraocular muscles intact, pupils equal and reactive, no scleral icterus. Oropharynx is pink and moist. No pharyngeal erythema or exudate apreciated. Neck is supple. Cardiovascular: Regular rhythm. Normal S1 and S2. No murmurs, rubs, or gallops appreciated Pulmonary: Normal respiratory effort. Decreased breath sounds. No rhonchi, rales, or wheezing appreciated. Gastrointestinal: Soft, nondistended. Nontender. Positive bowel sounds all 4 quadrants. No guarding. Musculoskeletal: Moves all extremities. No calf tenderness. Trace bilateral lower extremity edema appreciated. Central nervous system: Awake and alert. CN 2-12 grossly intact. Dermatologic: Skin warm and dry. Positive excoriations with some scabs bilatera l forearms and hands. Assessment and plan: Patient is a 57 year old female with past medical history significant for COPD, asthma, untreated breast cancer, anemia, anxiety, and recurrent UTIs that presented to the emergency room for respiratory failure. 1. Acute hypercapnic respiratory failure. S/P intubation and extubation. Chicken And Fish Butcher following, recommendations appreciated. Continue O2 via nasal cannula as needed. Continue acetylcysteine BID. Continue nebulizer treatments. Continue Brovana and Pulmicort. Continue Prednisone. Chest xray today 04/17/18 per radiologist showed almost complete opacification of right hemithorax with right-sided volume loss and shift of the heart mediastinum towards the right, patchy opacity at left base, possible pneumonia. Pending chest CT. IR consulted, follow-up recommendations. Continue IV Lasix. Patient refusing BiPAP. Chest CT 04/11/18 per radiologist showed decrease in right lobe consolidation and adjacent pleural effusion, some residual consolidation at right lung base posteriorly; chronic area of scarring or consolidation in posterior aspect of the right lung apex; calcification seen in left upper quadrant of left breast. 2. Healthcare associated pneumonia. Chest x-ray as above. Pending chest CT. ID following, recommendations appreciated. Leukocytosis resolved. Afebrile. Blood cultures with no growth. Procalcitonin 0.55. Influenza negative, Urine for legionella negative. Urine for strep pneumoniae negative. ID following, recommendations appreciated. Patient is s/p treatment with cefepime 3. Pleural effusion. Elevated ProBNP. ProBNP 7140, likely secondary to CKD. Pleural effusion likely secondary to pneumonia vs malignancy. Pulmonary following, recommendations appreciated. Forklift Technician following, recommendations appreciated. Continue IV Lasix 4. DAHLIA, likely ATN on Chronic Kidney disease. Segment Block Layer following, recommendations appreciated. Downtrended today. Continue nehpro silvio. Continue to monitor. 5. Anemia. Likely secondary to malignancy and chronic disease. S/P 2 units PRBCs. Continue ferrous sulfate. Continue to monitor CBC. 6. DM2 with hyperglycemia. Likely secondary to steroids. Continue insulin sliding scale. Added Levemir at bedtime. Continue to monitor accuchecks. Hgb AIC was 8.8 on 04/03/18. 7. Essential hypertension. Continue Metoporolol and IV Lasix 8. Hyperlipidemia. Continue lipitor. 9. History of breast cancer. S/P 1 cycle of chemo, patient refused chemo and surgery post one cycle. Will need repeat Chest CT in one month per hem/onc. Hem/onc following, recommendations appreciated. 10. Tobacco abuse. Patient counseled at length on tobacco cessation. Continue with nicotine patch. 11. Depression and Anxiety. Psychiatrist following, recommendations appreciated. Continue Paxil 5 mg at bedtime. No benzodiazepines or narcotics to be given secondary to respiratory depression. 12. GI/DVT prophylaxis. Protonix/heparin 13. Patient is a full code. Palliative care recommendations appreciated. Case was discussed in detail with the patient regarding current diagnosis and treatment plan. All questions answered.
--- NOTE | 2018-04-17 20:21 | PN ---
DATE: 04/17/2018 SUBJECTIVE: The patient is 57-year-old female, multiple medical issues, history of anxiety, history of outpatient psychiatric management. The patient was admitted on 04/11/2018 for evaluation of shortness of breath. Psych consult was called for evaluation of anxiety and depression. The patient was seen by Dr. Schulte yesterday. This bid writer is following up. The patient was seen and examined today. The patient presented to be not interested to have interview, yes and no answers only, when the patient started to talk, she started yelling that she needs to be on benzodiazepines, and the patient was refusing to provide this bid writer information about outpatient psychiatry as well as the pharmacy. The patient explained "it does not really matter at this time." The patient was seen by Dr. Schulte yesterday. Dr. Schulte recommended to stay away from benzodiazepines because the patient has history of misusing and overdose on benzodiazepines, and the patient has history of respiratory distress. The patient was started on Paxil 5 mg. The patient reported that she still did not sleep and her mood is bad. PHYSICAL EXAMINATION: VITAL SIGNS: Vital signs: Reviewed. Temperature 98.8, pulse is 88, blood pressure 126/66, respiration 26, saturation is 99. MENTAL STATUS EXAM: The patient appears to be alert. The patient is not interested to have interview. No eye contact. The patient was more interested to watch TV. When the patient talks, the patient is yelling that she is to be on benzodiazepines. Thought process is very concrete, most likely the patient has some intellectual disability or mild cognitive limitations. Thought content, the patient denied visual, auditory, tactile hallucinations. Denied paranoid ideations. The patient presented to be guarded, irritable and annoyed. Insight and judgment seems to be very limited. Impulses are unpredictable. LABORATORY DATA: Labs reviewed. Coagulation reviewed. Chemistry reviewed. Toxicology was positive for benzodiazepines. MEDICATIONS: Reviewed. The patient has tendency of refusing to take some medication. IMPRESSION: Most likely, the patient has mood spectrum disorder, also this bid writer cannot exclude mood disorder due to general medical condition. Delirium is improving. RECOMMENDATIONS: Paxil was started by Dr. Schulte 5 mg at the nighttime. gas worker evaluation, benzodiazepines are not recommended. Dr. Schulte will follow up on this patient tomorrow and advise accordingly. Thank you very much for letting me participate in care of your patient. Beba Ernst MD MTDD
[2018-04-17] MEDS: Insulin Detemir 100 units/ml Vial (Levemir) SC SCH (21:41)
[2018-04-18] MEDS: Albuterol-Ipratrop 3 mg / 0.5 (3 ml) UD IH PRN ×2 (00:05→03:30)
[2018-04-18] MEDS: Acetylcysteine 20% Inhal Soln (4ml) IH SCH ×2 (07:40→20:15)
[2018-04-18] MEDS: Budesonide 0.5 mg/2 ml Inhal Susp UD IH SCH ×2 (07:40→20:20)
[2018-04-18] MEDS: Arformoterol 15 mcg/2 ml Inh Sol IH SCH ×2 (07:40→20:15)
[2018-04-18] MEDS: Insulin Lispro (humaLOG) LOW Coverage SC SCH ×4 (08:39→22:25)
[2018-04-18] MEDS: Multivitamin Vitamin B Complex (Nephro-Vite) Tab PO SCH (08:39)
[2018-04-18] MEDS: Pantoprazole 40 mg EC Tab PO SCH (08:39)
[2018-04-18 09:14] LABS: ALB/GLOB RATIO 1.3 (1.1-1.8); ALBUMIN 2.8 g/dL (3.0-4.8); CALCIUM 7.5 mg/dL (8.4-10.5)
[2018-04-18 10:11] LABS: EOS % 0.2 % (1.5-5.0); HEMOGLOBIN 8.5 g/dL (12.0-16.0); LYMPH # 0.6 (1.2-3.4); LYMPH % 6.3 % (22.0-35.0); MEAN CELL VOLUME 95.6 fl (80.0-105.0); MEAN CORPUSCULAR HEMOGLOBIN 28.5 pg (25.0-35.0); MEAN CORPUSCULAR HGB CONC 29.8 g/dl (31.0-37.0); MEAN PLATELET VOLUME 12.6 fl (7.0-11.0); MONO # 0.6 (0.1-0.6); MONO % 6.3 % (1.0-6.0); RBC 2.98 10^6/uL (3.5-6.1); RED CELL DISTRIBUTION WIDTH 19.5 % (11.5-14.5); WHITE BLOOD COUNT 9.1 10^3/uL (4.5-11.0)
--- NOTE | 2018-04-18 11:18 | CP.PCM.PN ---
<Leonidas Guardado - Last Filed: 04/18/18 13:43> Subjective - Date & Time of Evaluation Date of Evaluation: 04/18/18 Time of Evaluation: 09:10 - Subjective Subjective: Infectious disease progress note: Pt seen and examined at bedside. No acute events overnight. Denies any wheezing or sob. No other complaints. 12 Point ROS neg other than stated above Objective - Vital Signs/Intake and Output Vital Signs (last 24 hours): Temp Pulse Resp BP Pulse Ox 99.4 F 99 H 18 173/56 H 94 L 04/18/18 06:00 04/18/18 06:00 04/18/18 06:00 04/18/18 06:00 04/18/18 06:00 Intake and Output: 04/18/18 04/18/18 06:59 18:59 Intake Total 860 Output Total 800 Balance 60 - Medications Medications: Current Medications Acetylcysteine (Acetylcysteine 20%) 4 ml IH BIDRESP [facility] Last Admin: 04/18/18 07:40 Dose: 4 ml Albuterol/Ipratropium (Duoneb 3 Mg/0.5 Mg (3 Ml) Ud) 3 ml IH Q2H PRN PRN Reason: Shortness of Breath Last Admin: 04/18/18 03:30 Dose: 3 ml Arformoterol Tartrate (Brovana) 15 mcg IH [id number] [facility] Last Admin: 04/18/18 07:40 Dose: 15 mcg Aspirin (Aspirin Chewable) 81 mg PO DAILY [facility] Last Admin: 04/17/18 10:35 Dose: 81 mg Atorvastatin Calcium (Lipitor) 40 mg PO DAILY [facility] Last Admin: 04/17/18 10:35 Dose: 40 mg Bacitracin (Bacitracin) 0 gm TOP BID [facility] Last Admin: 04/17/18 17:17 Dose: 1 applic Benzocaine/Menthol (Cepacol Sore Throat) 1 vy MT Q4H PRN PRN Reason: Sore Throat Budesonide (Pulmicort Respules) 0.5 mg IH [id number] [facility] Last Admin: 04/18/18 07:40 Dose: 0.5 mg Dextrose (Dextrose 50% Inj) 0 ml IV STAT PRN; Protocol PRN Reason: Hypoglycemia Protocol Ergocalciferol (Drisdol 50,000 Intl Units Cap) 1 cap PO Q7D [facility] Last Admin: 04/11/18 16:07 Dose: Not Given Ferrous Gluconate (Fergon) 324 mg PO TID [facility] Last Admin: 04/17/18 14:46 Dose: 324 mg Furosemide (Lasix) 40 mg IVP DAILY [facility] Last Admin: 04/17/18 10:34 Dose: 40 mg Heparin Sodium (Porcine) (Heparin) 5,000 units SC Q8H [facility]; Protocol Last Admin: 04/18/18 05:58 Dose: Not Given Dextrose (Dextrose 5% In Water 1000 Ml) 1,000 mls @ 0 mls/hr IV .Q0M PRN; Protocol PRN Reason: Hypoglycemia Protocol Insulin Detemir (Levemir) 10 unit SC HS [facility] Last Admin: 04/17/18 21:41 Dose: 10 applic Insulin Human Lispro (Humalog Low) 0 units SC ACHS [facility]; Protocol Last Admin: 04/18/18 08:39 Dose: 3 units Metoprolol Tartrate (Lopressor) 25 mg PO BID [facility] Last Admin: 04/17/18 17:14 Dose: 25 mg Nicotine (Nicoderm Cq) 1 patch TD DAILY [facility] Last Admin: 04/17/18 10:36 Dose: 1 patch Pantoprazole Sodium (Protonix Ec Tab) 40 mg PO ACB [facility] Last Admin: 04/18/18 08:39 Dose: 40 mg Paroxetine HCl (Paxil) 5 mg PO HS [facility] Last Admin: 04/17/18 21:09 Dose: 5 mg Prednisone (Prednisone Tab) 10 mg PO DAILY [facility] Vitamin B Complex/Vit C/Folic Acid (Nephro-Enrrique) 1 tab PO 0800 [facility] Last Admin: 04/18/18 08:39 Dose: 1 tab - Labs Labs: 04/18/18 08:50 04/18/18 08:50 PT 11.9 SECONDS (9.4-12.5) 04/11/18 12:25 INR 1.05 04/11/18 12:25 APTT 25.3 Seconds (26.9-38.3) L 04/11/18 12:25 - Constitutional Appears: No Acute Distress - Head Exam Head Exam: ATRAUMATIC, NORMOCEPHALIC - Eye Exam Eye Exam: EOMI - ENT Exam ENT Exam: Mucous Membranes Moist - Respiratory Exam Respiratory Exam: Clear to Ausculation Bilateral. absent: Rales, Wheezes - Cardiovascular Exam Cardiovascular Exam: REGULAR RHYTHM, +S1, +S2 - GI/Abdominal Exam GI & Abdominal Exam: Soft. absent: Tenderness - Extremities Exam Extremities Exam: absent: Calf Tenderness, Pedal Edema - Neurological Exam Neurological Exam: Alert, Awake, Oriented x3 - Psychiatric Exam Psychiatric exam: Normal Mood - Skin Skin Exam: Dry, Warm Assessment and Plan - Assessment and Plan (Free Text) Assessment: 57 F with a PMHx history of breast cancer, severe COPD, anxiety, pneumonia, pleural effusions, CKD, xanax abuse, hx of non-compliance, hx of xanax/oxycodone overdose, who presented respiratory failure 2/2 possible HAP s/p extubation. - Monitor off abx - Completed 6 days of Vanc and Cefepime - Blood cx and UA neg - Cont to monitor Case and plan was reviewed and discussed in detail with Dr Damon <Chung Damon S - Last Filed: 04/18/18 16:22> Objective - Vital Signs/Intake and Output Vital Signs (last 24 hours): Temp Pulse Resp BP Pulse Ox 99.4 F 99 H 18 173/56 H 94 L 04/18/18 06:00 04/18/18 11:19 04/18/18 06:00 04/18/18 11:19 04/18/18 06:00 Intake and Output: 04/18/18 04/18/18 06:59 18:59 Intake Total 860 420 Output Total 800 600 Balance 60 -180 - Medications Medications: Current Medications Acetylcysteine (Acetylcysteine 20%) 4 ml IH BIDRESP [facility] Last Admin: 04/18/18 07:40 Dose: 4 ml Albuterol/Ipratropium (Duoneb 3 Mg/0.5 Mg (3 Ml) Ud) 3 ml IH Q2H PRN PRN Reason: Shortness of Breath Last Admin: 04/18/18 03:30 Dose: 3 ml Arformoterol Tartrate (Brovana) 15 mcg IH [id number] [facility] Last Admin: 04/18/18 07:40 Dose: 15 mcg Aspirin (Aspirin Chewable) 81 mg PO DAILY [facility] Last Admin: 04/18/18 11:16 Dose: 81 mg Atorvastatin Calcium (Lipitor) 40 mg PO DAILY [facility] Last Admin: 04/18/18 11:15 Dose: 40 mg Bacitracin (Bacitracin) 0 gm TOP BID [facility] Last Admin: 04/18/18 11:29 Dose: 1 applic Benzocaine/Menthol (Cepacol Sore Throat) 1 vy MT Q4H PRN PRN Reason: Sore Throat Budesonide (Pulmicort Respules) 0.5 mg IH [id number] [facility] Last Admin: 04/18/18 07:40 Dose: 0.5 mg Dextrose (Dextrose 50% Inj) 0 ml IV STAT PRN; Protocol PRN Reason: Hypoglycemia Protocol Ergocalciferol (Drisdol 50,000 Intl Units Cap) 1 cap PO Q7D [facility] Last Admin: 04/11/18 16:07 Dose: Not Given Ferrous Gluconate (Fergon) 324 mg PO TID [facility] Last Admin: 04/18/18 15:40 Dose: 324 mg Furosemide (Lasix) 40 mg IVP DAILY [facility] Last Admin: 04/18/18 11:16 Dose: 40 mg Heparin Sodium (Porcine) (Heparin) 5,000 units SC Q8H [facility]; Protocol Last Admin: 04/18/18 15:39 Dose: 5,000 units Dextrose (Dextrose 5% In Water 1000 Ml) 1,000 mls @ 0 mls/hr IV .Q0M PRN; Protocol PRN Reason: Hypoglycemia Protocol Insulin Detemir (Levemir) 10 unit SC [facility] Last Admin: 04/17/18 21:41 Dose: 10 applic Insulin Human Lispro (Humalog Low) 0 units SC ACHS [facility]; Protocol Last Admin: 04/18/18 12:37 Dose: 3 units Metoprolol Tartrate (Lopressor) 25 mg PO BID [facility] Last Admin: 04/18/18 11:19 Dose: 25 mg Nicotine (Nicoderm Cq) 1 patch TD DAILY [facility] Last Admin: 04/18/18 11:19 Dose: 1 patch Pantoprazole Sodium (Protonix Ec Tab) 40 mg PO ACB [facility] Last Admin: 04/18/18 08:39 Dose: 40 mg Paroxetine HCl (Paxil) 5 mg PO HS [facility] Last Admin: 04/17/18 21:09 Dose: 5 mg Prednisone (Prednisone Tab) 40 mg PO DAILY [facility] Vitamin B Complex/Vit C/Folic Acid (Nephro-Enrrique) 1 tab PO 0800 [facility] Last Admin: 04/18/18 08:39 Dose: 1 tab - Labs Labs: 04/18/18 08:50 04/18/18 08:50 PT 11.9 SECONDS (9.4-12.5) 04/11/18 12:25 INR 1.05 04/11/18 12:25 APTT 25.3 Seconds (26.9-38.3) L 04/11/18 12:25 Assessment and Plan - Assessment and Plan (Free Text) Assessment: Infectious diseases Attending Physician Attestation Patient seen and examined, discussed with biomedical equipment technician. I have reviewed the patient's history of present illness, past medical, social, personal and family histories, pertinent physical exam findings, course so far in this hospital admission, pertinent laboratory and imaging results. I agree with the above findings, assessment and plan.
[2018-04-18] MEDS: Bacitracin Ointment 30 GM TUBE TOP SCH ×2 (11:29→17:49)
--- NOTE | 2018-04-18 14:12 | CP.PCM.PN ---
Subjective - Date & Time of Evaluation Date of Evaluation: 04/18/18 Time of Evaluation: 13:00 - Subjective Subjective: Awake,offers no complaints Objective - Vital Signs/Intake and Output Vital Signs (last 24 hours): Temp Pulse Resp BP Pulse Ox 99.4 F 99 H 18 173/56 H 94 L 04/18/18 06:00 04/18/18 11:19 04/18/18 06:00 04/18/18 11:19 04/18/18 06:00 Intake and Output: 04/18/18 04/18/18 06:59 18:59 Intake Total 860 Output Total 800 Balance 60 - Medications Medications: Current Medications Acetylcysteine (Acetylcysteine 20%) 4 ml IH BIDRESP [facility] Last Admin: 04/18/18 07:40 Dose: 4 ml Albuterol/Ipratropium (Duoneb 3 Mg/0.5 Mg (3 Ml) Ud) 3 ml IH Q2H PRN PRN Reason: Shortness of Breath Last Admin: 04/18/18 03:30 Dose: 3 ml Arformoterol Tartrate (Brovana) 15 mcg IH [id number] [facility] Last Admin: 04/18/18 07:40 Dose: 15 mcg Aspirin (Aspirin Chewable) 81 mg PO DAILY [facility] Last Admin: 04/18/18 11:16 Dose: 81 mg Atorvastatin Calcium (Lipitor) 40 mg PO DAILY [facility] Last Admin: 04/18/18 11:15 Dose: 40 mg Bacitracin (Bacitracin) 0 gm TOP BID [facility] Last Admin: 04/18/18 11:29 Dose: 1 applic Benzocaine/Menthol (Cepacol Sore Throat) 1 vy MT Q4H PRN PRN Reason: Sore Throat Budesonide (Pulmicort Respules) 0.5 mg IH [id number] [facility] Last Admin: 04/18/18 07:40 Dose: 0.5 mg Dextrose (Dextrose 50% Inj) 0 ml IV STAT PRN; Protocol PRN Reason: Hypoglycemia Protocol Ergocalciferol (Drisdol 50,000 Intl Units Cap) 1 cap PO Q7D [facility] Last Admin: 04/11/18 16:07 Dose: Not Given Ferrous Gluconate (Fergon) 324 mg PO TID [facility] Last Admin: 04/18/18 11:16 Dose: 324 mg Furosemide (Lasix) 40 mg IVP DAILY [facility] Last Admin: 04/18/18 11:16 Dose: 40 mg Heparin Sodium (Porcine) (Heparin) 5,000 units SC Q8H [facility]; Protocol Last Admin: 04/18/18 05:58 Dose: Not Given Dextrose (Dextrose 5% In Water 1000 Ml) 1,000 mls @ 0 mls/hr IV .Q0M PRN; Protocol PRN Reason: Hypoglycemia Protocol Insulin Detemir (Levemir) 10 unit SC HS [facility] Last Admin: 04/17/18 21:41 Dose: 10 applic Insulin Human Lispro (Humalog Low) 0 units SC ACHS [facility]; Protocol Last Admin: 04/18/18 12:37 Dose: 3 units Metoprolol Tartrate (Lopressor) 25 mg PO BID [facility] Last Admin: 04/18/18 11:19 Dose: 25 mg Nicotine (Nicoderm Cq) 1 patch TD DAILY [facility] Last Admin: 04/18/18 11:19 Dose: 1 patch Pantoprazole Sodium (Protonix Ec Tab) 40 mg PO ACB [facility] Last Admin: 04/18/18 08:39 Dose: 40 mg Paroxetine HCl (Paxil) 5 mg PO HS [facility] Last Admin: 04/17/18 21:09 Dose: 5 mg Prednisone (Prednisone Tab) 10 mg PO DAILY [facility] Last Admin: 04/18/18 11:17 Dose: 10 mg Vitamin B Complex/Vit C/Folic Acid (Nephro-Enrrique) 1 tab PO 0800 [facility] Last Admin: 04/18/18 08:39 Dose: 1 tab - Labs Labs: 04/18/18 08:50 04/18/18 08:50 PT 11.9 SECONDS (9.4-12.5) 04/11/18 12:25 INR 1.05 04/11/18 12:25 APTT 25.3 Seconds (26.9-38.3) L 04/11/18 12:25 - Constitutional Appears: Chronically Ill - Head Exam Head Exam: NORMOCEPHALIC - Eye Exam Eye Exam: Normal appearance, PERRL - ENT Exam ENT Exam: Mucous Membranes Moist - Respiratory Exam Respiratory Exam: Rhonchi, NORMAL BREATHING PATTERN - Cardiovascular Exam Cardiovascular Exam: REGULAR RHYTHM, +S1, +S2 - GI/Abdominal Exam GI & Abdominal Exam: Soft, Normal Bowel Sounds - Skin Skin Exam: Warm Assessment and Plan - Assessment and Plan (Free Text) Assessment: 57 year old female with history of advanced COPD,DM, pneumonia, breast cancer and anxiety who is admitted with COPD exacerbation, right pleural effusion and deconditioning I met with this patient on several occasions. During one of our meetings she was very vocal. We discussed advance care planning. She competed a POLST, wants to remain a full code status. Does not want life prolonged on machines if her condition is irreversible. I expressed the importance of lifestyle changes and good medical follow up. She appeared to understand what was discussed. Today, the patient is awake and alert. Offers no complaints. She is extremely hard of hearing. Tried to discuss plan for discharge [facility] vs home. She did not answer my question nor did she want to engage in conversation. Her children were at beside. They stated they will do what ever their mother wants. Patient met with SW and refused [facility], stated she wants to go home SW and case management following up with patient regarding discharge, will sign off this case for now. Plan: I have met with marlen carrasquillo on sveral occassions. Duribg one of our meetings she was very voal> Weagnes dosseed advance care planning> She > Mosr time she has not been willing to dsus care paln>
--- NOTE | 2018-04-18 14:20 | CP.PCM.PN ---
<Rubio Piedra - Last Filed: 04/18/18 14:44> Subjective - Date & Time of Evaluation Date of Evaluation: 04/18/18 Time of Evaluation: 14:19 - Subjective Subjective: PGY-2 heme/onc progress note for Dr Gleason No acute events overnight. Thoracentesis today. Breathing seemed labored. She did not answer my question nor did she want to engage in conversation. Objective - Vital Signs/Intake and Output Vital Signs (last 24 hours): Temp Pulse Resp BP Pulse Ox 99.4 F 99 H 18 173/56 H 94 L 04/18/18 06:00 04/18/18 11:19 04/18/18 06:00 04/18/18 11:19 04/18/18 06:00 Intake and Output: 04/18/18 04/18/18 06:59 18:59 Intake Total 860 Output Total 800 Balance 60 - Medications Medications: Current Medications Acetylcysteine (Acetylcysteine 20%) 4 ml IH BIDRESP [facility] Last Admin: 04/18/18 07:40 Dose: 4 ml Albuterol/Ipratropium (Duoneb 3 Mg/0.5 Mg (3 Ml) Ud) 3 ml IH Q2H PRN PRN Reason: Shortness of Breath Last Admin: 04/18/18 03:30 Dose: 3 ml Arformoterol Tartrate (Brovana) 15 mcg IH [id number] [facility] Last Admin: 04/18/18 07:40 Dose: 15 mcg Aspirin (Aspirin Chewable) 81 mg PO DAILY [facility] Last Admin: 04/18/18 11:16 Dose: 81 mg Atorvastatin Calcium (Lipitor) 40 mg PO DAILY [facility] Last Admin: 04/18/18 11:15 Dose: 40 mg Bacitracin (Bacitracin) 0 gm TOP BID [facility] Last Admin: 04/18/18 11:29 Dose: 1 applic Benzocaine/Menthol (Cepacol Sore Throat) 1 vy MT Q4H PRN PRN Reason: Sore Throat Budesonide (Pulmicort Respules) 0.5 mg IH [id number] [facility] Last Admin: 04/18/18 07:40 Dose: 0.5 mg Dextrose (Dextrose 50% Inj) 0 ml IV STAT PRN; Protocol PRN Reason: Hypoglycemia Protocol Ergocalciferol (Drisdol 50,000 Intl Units Cap) 1 cap PO Q7D [facility] Last Admin: 04/11/18 16:07 Dose: Not Given Ferrous Gluconate (Fergon) 324 mg PO TID [facility] Last Admin: 04/18/18 11:16 Dose: 324 mg Furosemide (Lasix) 40 mg IVP DAILY [facility] Last Admin: 04/18/18 11:16 Dose: 40 mg Heparin Sodium (Porcine) (Heparin) 5,000 units SC Q8H [facility]; Protocol Last Admin: 04/18/18 05:58 Dose: Not Given Dextrose (Dextrose 5% In Water 1000 Ml) 1,000 mls @ 0 mls/hr IV .Q0M PRN; Pro tocol PRN Reason: Hypoglycemia Protocol Insulin Detemir (Levemir) 10 unit SC HS [facility] Last Admin: 04/17/18 21:41 Dose: 10 applic Insulin Human Lispro (Humalog Low) 0 units SC ACHS [facility]; Protocol Last Admin: 04/18/18 12:37 Dose: 3 units Metoprolol Tartrate (Lopressor) 25 mg PO BID [facility] Last Admin: 04/18/18 11:19 Dose: 25 mg Nicotine (Nicoderm Cq) 1 patch TD DAILY [facility] Last Admin: 04/18/18 11:19 Dose: 1 patch Pantoprazole Sodium (Protonix Ec Tab) 40 mg PO ACB [facility] Last Admin: 04/18/18 08:39 Dose: 40 mg Paroxetine HCl (Paxil) 5 mg PO HS [facility] Last Admin: 04/17/18 21:09 Dose: 5 mg Prednisone (Prednisone Tab) 10 mg PO DAILY [facility] Last Admin: 04/18/18 11:17 Dose: 10 mg Vitamin B Complex/Vit C/Folic Acid (Nephro-Enrrique) 1 tab PO 0800 [facility] Last Admin: 04/18/18 08:39 Dose: 1 tab - Labs Labs: 04/18/18 08:50 04/18/18 08:50 PT 11.9 SECONDS (9.4-12.5) 04/11/18 12:25 INR 1.05 04/11/18 12:25 APTT 25.3 Seconds (26.9-38.3) L 04/11/18 12:25 - Additional Findings Additional findings: - Constitutional Appears: No Acute Distress, Older Than Stated Age - Head Exam Head Exam: ATRAUMATIC, NORMAL INSPECTION - Eye Exam Eye Exam: EOMI, Normal appearance, PERRL. absent: Scleral icterus - ENT Exam ENT Exam: Mucous Membranes Moist - Respiratory Exam Respiratory Exam: Decreased Breath Sounds, Rales Additional comments: rales R>L - Cardiovascular Exam Cardiovascular Exam: Tachycardia, REGULAR RHYTHM, +S1, +S2. absent: JVD - GI/Abdominal Exam GI & Abdominal Exam: Normal Bowel Sounds, Soft. absent: Tenderness - Extremities Exam Extremities exam: Positive for: normal capillary refill, normal inspection, pedal pulses present - Neurological Exam Neurological exam: Alert, Oriented x3 - Psychiatric Exam Psychiatric exam: Anxious - Skin Skin Exam: Normal Color, Warm Assessment and Plan - Assessment and Plan (Free Text) Plan: Mrs Granado is a 57 year old female with a PMHx history of breast cancer, severe COPD, anxiety, pneumonia, pleural effusions, CKD, xanax abuse, hx of non- compliance, hx of xanax/oxycodone overose, who presented to the ED in respiratory distress while on non-rebreather. Patient was then intubated while in ED due to lack of airway protection. Hematology/oncology has been consulted for anemia and her hx of left-sided breast cancer. Anemia -likely anemia of chronic disease 2/2 to ckd -Hgb on admission: 7.3 -> today 9.4 * chronically anemic since 02/2017 * transfused 2u pRBCs on 04/12/18 -recent admission 03/31/18 there were orders for iron studies, retic count, peripheral smear, B12, folate * retic count: 1.72, B12: 476, folate: 17, iron: 44, TIBC 213, %sat: 21, ferritin: 206, MCV: 96, LDH: 561 -has received erythropoetin in the past for anemia due to renal disease * CKD 3 and now with DAHLIA -recent admission 03/31/18 there were orders for epo level, immunofixation, spep, LDH * epo 22.8 (mildly high) * ABDIRIZAK and SPEP -> selective protein loss pattern, suggestive of nephrotic syndrome -1 dose of darbapoetin 40mcg sc on 04/06/18 - we will continue this once a week * darbopoetin 40mcg sc given on 04/13/18 -ferrous gluconate 324mg po qd now discontinued -recommend to continue darbapoetin injections outpatient, recommend 2 more injections over the next 2 weeks 7 days apart and then recommend to be re- evaluated by heme/onc physician Hx L breast cancer (Dx 2016) invasive ductal carcinoma -ER+/HER2+ -Got 1 cycle of sandee-adjuvant chemo. After that, refused chemo/surgery. -CT chest w/o contrast showed lymphadenopathy suspicious for tumor * etiology could be malignancy, infectious, inflammatory * patient was advised that this abnormal finding on CT needs to be followed up with an oncologist - this was reiterated to her multiple times on the previous admission and again on this current admission Dispo: patient accepted to [facility] Seen and discussed with Dr Gleason <Melanie Gleason P - Last Filed: 04/20/18 19:20> Objective - Vital Signs/Intake and Output Vital Signs (last 24 hours): Temp Pulse Resp BP Pulse Ox 98.9 F 90 20 148/59 L 96 04/20/18 14:00 04/20/18 17:22 04/20/18 14:00 04/20/18 17:22 04/20/18 14:00 - Medications Medications: Current Medications Albuterol Sulfate (Albuterol 0.083% Inhal Elvie (2.5 Mg/3 Ml) Ud) 2.5 mg INH [id number] [facility] Last Admin: 04/20/18 13:45 Dose: 2.5 mg Albuterol/Ipratropium (Duoneb 3 Mg/0.5 Mg (3 Ml) Ud) 3 ml IH Q2H PRN PRN Reason: Shortness of Breath Last Admin: 04/19/18 15:34 Dose: 3 ml Arformoterol Tartrate (Brovana) 15 mcg IH [id number] [facility] Last Admin: 04/20/18 07:55 Dose: Not Given Aspirin (Aspirin Chewable) 81 mg PO DAILY [facility] Last Admin: 04/20/18 09:08 Dose: 81 mg Atorvastatin Calcium (Lipitor) 40 mg PO DAILY [facility] Last Admin: 04/20/18 09:08 Dose: 40 mg Bacitracin (Bacitracin) 0 gm TOP BID [facility] Last Admin: 04/20/18 17:27 Dose: 1 applic Benzocaine/Menthol (Cepacol Sore Throat) 1 vy MT Q4H PRN PRN Reason: Sore Throat Last Admin: 04/20/18 13:05 Dose: 1 vy Budesonide (Pulmicort Respules) 0.5 mg IH [id number] [facility] Last Admin: 04/20/18 07:55 Dose: Not Given Dextrose (Dextrose 50% Inj) 0 ml IV STAT PRN; Protocol PRN Reason: Hypoglycemia Protocol Ergocalciferol (Drisdol 50,000 Intl Units Cap) 1 cap PO Q7D [facility] Last Admin: 04/18/18 17:45 Dose: 1 cap Ferrous Gluconate (Fergon) 324 mg PO DAILY [facility] Furosemide (Lasix) 40 mg IVP DAILY [facility] Last Admin: 04/20/18 09:13 Dose: 40 mg Heparin Sodium (Porcine) (Heparin) 5,000 units SC Q8 [facility]; Protocol Last Admin: 04/20/18 17:25 Dose: 5,000 units Dextrose (Dextrose 5% In Water 1000 Ml) 1,000 mls @ 0 mls/hr IV .Q0M PRN; Protocol PRN Reason: Hypoglycemia Protocol Insulin Detemir (Levemir) [address] [facility] Last Admin: 04/19/18 22:24 Dose: 10 applic Insulin Human Lispro (Humalog Low) 0 units SC ACHS [facility]; Protocol Last Admin: 04/20/18 17:22 Dose: 4 units Metoprolol Tartrate (Lopressor) 25 mg PO BID [facility] Last Admin: 04/20/18 17:22 Dose: 25 mg Nicotine (Nicoderm Cq) 1 patch TD DAILY [facility] Last Admin: 04/20/18 09:14 Dose: 1 patch Pantoprazole Sodium (Protonix Ec Tab) 40 mg PO ACB [facility] Last Admin: 04/20/18 09:09 Dose: 40 mg Paroxetine HCl (Paxil) 5 mg PO HS [facility] Last Admin: 04/19/18 22:25 Dose: 5 mg Prednisone (Prednisone Tab) 40 mg PO DAILY [facility] Last Admin: 04/20/18 09:09 Dose: 40 mg Vitamin B Complex/Vit C/Folic Acid (Nephro-Enrrique) 1 tab PO 0800 [facility] Last Admin: 04/20/18 09:08 Dose: 1 tab - Labs Labs: 04/20/18 07:20 04/20/18 07:20 PT 11.9 SECONDS (9.4-12.5) 04/11/18 12:25 INR 1.05 04/11/18 12:25 APTT 25.3 Seconds (26.9-38.3) L 04/11/18 12:25 Attending/Attestation - Attestation I have personally seen and examined this patient.: Yes I have fully participated in the care of the patient.: Yes I have reviewed all pertinent clinical information, including history, physical exam and plan: Yes
--- NOTE | 2018-04-18 14:44 | PN ---
DATE: 04/18/2018 LOCATION: Room 567, bed 2. REASON FOR CONSULTATION: Followup, status post respiratory failure, anemia, status post intubation, now status post extubated, history of tobacco abuse, anemia, renal insufficiency. SUBJECTIVE: The patient is lying comfortably in the bed at this moment without any chest pain, shortness of breath or palpitation. The patient was given 2 units of packed RBC when the patient was in intensive care unit. The patient now feels better. OBJECTIVE: VITAL SIGNS: Blood pressure 173/56, yesterday blood pressure was 130/52; respirations 18; pulse 99; and temperature 99.4. HEENT: Head: Normocephalic. Eyes: Pupils normal. Conjunctiva slightly pale. NECK: JVP low. Carotids equal. THORAX: AP diameter normal. LUNGS: No significant rales. CARDIOVASCULAR: S1 and S2. ABDOMEN: Soft, no tenderness. No organomegaly. Bowel sounds are normal. EXTREMITIES: No clubbing. No cyanosis. LABORATORY DATA: WBC 9.1, hemoglobin 8.5, hematocrit 28.5 and platelet 108. Sodium 141, potassium 3.7, BUN 79, creatinine 2, glucose 290, calcium 7.5, total protein 4.9, albumin 2.8. Chest x-ray done on 04/17/2018, showed almost complete opacification of right hemithorax with right-sided volume loss and shift of heart and mediastinum towards the right patchy opacity at left base, possible pneumonia. DIAGNOSES: Exacerbation of chronic obstructive pulmonary disease, status post respiratory failure, status post intubation, status post extubation, active tobacco abuse, diabetes mellitus, renal failure, anemia, status post blood transfusions, atelectasis with almost pneumonia. PLAN: Continue aspirin 81 mg daily, DuoNeb hand nebulizer therapy, ferrous sulfate 324 mg p.o. t.i.d., heparin 5000 units subcu every 8 hours, atorvastatin 40 daily, insulin as ordered, metoprolol 25 b.i.d., prednisone 10 mg p.o. daily, Protonix 40 daily. The patient, poor compliant. The patient also has sleep apnea, but she refuses BiPAP machine. We will continue current therapy and we will follow. Lisa Jones MD
--- NOTE | 2018-04-18 14:48 | PN ---
DATE: 04/18/2018 PULMONARY PROGRESS NOTE REFERRING PHYSICIAN: Darius Rdz MD. SUBJECTIVE: The patient is lying in bed, in no acute distress. No overnight events reported. The patient reports she does have periods of shortness of breath and nonproductive cough. The patient was scheduled for a thoracentesis, but as per the nursing staff, when spoken to this morning, the patient refused and is refusing to have thoracentesis done. No headache, rhinitis, chest pain, abdominal pain,nausea, vomiting, diarrhea, or leg pain or leg swelling reported. OBJECTIVE: GENERAL: In no acute distress. VITAL SIGNS: Blood pressure 173/56, pulse 99, temperature 99.4, and oxygen saturation 94%. HEENT: Moist mucous membranes, crowded airway. NECK: Supple, no JVD. LUNGS: Scattered rhonchi, decreased breath sounds on the right. CARDIOVASCULAR: S1 and S2 audible. ABDOMEN: Soft and nontender, not distended. EXTREMITIES: No bilateral lower extremity edema. NEUROLOGIC: Awake and alert, verbal, follows commands. MEDICATIONS: Reviewed. Mucomyst 4 mL inhalation twice a day, DuoNeb 3 mL inhalation every 2 hours p.r.n., Brovana 15 mcg every 12 hours, aspirin 81 mg daily, Lipitor 40 mg daily, bacitracin topically twice a day, Cepacol throat lozenges every 4 hours p.r.n, Pulmicort 2.5 mg inhalation every 12 hours, ergocalciferol 50,000 units weekly, ferrous gluconate 324 mg 3 times a day, Lasix 40 mg IV push daily, heparin 5000 units subcutaneously every 8 hours, Levemir 10 units subcutaneously at bedtime, Humalog sliding scale before meals and bedtime, metoprolol tartrate 25 mg twice a day, nicotine patch transdermally daily, Protonix 40 mg before meals, Paxil 5 mg at bedtime, prednisone 10 mg daily, and Nephro-Enrrique one tablet daily. LABORATORY DATA: Reviewed. WBC 9.1, RBC 2.98, hemoglobin 8.5, hematocrit 28.5, and platelets 108. Sodium 141, potassium 3.7, chloride 101, carbon dioxide 37, anion gap 7, BUN 79, creatinine 2, GFR 36, POC glucose 293, random glucose 290, calcium 7.5, total bilirubin 0.6, AST 18, ALT 75, alkaline phosphatase 73, total protein 4.9, albumin 2.8, globulin 2.1, and albumin-globulin ratio 1.3. IMPRESSION AND PLAN: Respiratory failure, atelectasis, chronic obstructive lung disease, diabetes, pneumonia, history of breast cancer, recurrent urinary tract infection, and obstructive sleep apnea syndrome. The patient with history of noncompliance of medications and treatment plan in the past along with followup, refuses BiPAP for sleep apnea, sleep apnea precautions, head of bed elevated at 45 degrees. Will increase steroids to Prednisone 40mg daily at this time. Continue gastric prophylaxis, deep venous thrombosis prophylaxis. Out of bed to chair, fall precautions, and pulmonary toileting. Continue chest physiotherapy and incentive spirometry. The patient is high risk for respiratory failure. The patient is seen and examined with Dr. Rucker. Discussed assessment and plan as described above. Thank yo for this consult. We will follow with you. iDdier Dennis APN Lisa Rucker MD SAADIA
--- NOTE | 2018-04-18 15:06 | CP.PCM.PN ---
<Aj Mays - Last Filed: 04/18/18 15:30> Subjective - Date & Time of Evaluation Date of Evaluation: 04/18/18 Time of Evaluation: 06:05 - Subjective Subjective: Pt seen and examined this morning. Per nursing, pt asking for xanax, pt heparin was held for thoracentesis. Objective - Vital Signs/Intake and Output Vital Signs (last 24 hours): Temp Pulse Resp BP Pulse Ox 99.4 F 99 H 18 173/56 H 94 L 04/18/18 06:00 04/18/18 11:19 04/18/18 06:00 04/18/18 11:19 04/18/18 06:00 Intake and Output: 04/18/18 04/18/18 06:59 18:59 Intake Total 860 Output Total 800 Balance 60 - Medications Medications: Current Medications Acetylcysteine (Acetylcysteine 20%) 4 ml IH BIDRESP [facility] Last Admin: 04/18/18 07:40 Dose: 4 ml Albuterol/Ipratropium (Duoneb 3 Mg/0.5 Mg (3 Ml) Ud) 3 ml IH Q2H PRN PRN Reason: Shortness of Breath Last Admin: 04/18/18 03:30 Dose: 3 ml Arformoterol Tartrate (Brovana) 15 mcg IH [id number] [facility] Last Admin: 04/18/18 07:40 Dose: 15 mcg Aspirin (Aspirin Chewable) 81 mg PO DAILY [facility] Last Admin: 04/18/18 11:16 Dose: 81 mg Atorvastatin Calcium (Lipitor) 40 mg PO DAILY [facility] Last Admin: 04/18/18 11:15 Dose: 40 mg Bacitracin (Bacitracin) 0 gm TOP BID [facility] Last Admin: 04/18/18 11:29 Dose: 1 applic Benzocaine/Menthol (Cepacol Sore Throat) 1 vy MT Q4H PRN PRN Reason: Sore Throat Budesonide (Pulmicort Respules) 0.5 mg IH [id number] [facility] Last Admin: 04/18/18 07:40 Dose: 0.5 mg Dextrose (Dextrose 50% Inj) 0 ml IV STAT PRN; Protocol PRN Reason: Hypoglycemia Protocol Ergocalciferol (Drisdol 50,000 Intl Units Cap) 1 cap PO Q7D [facility] Last Admin: 04/11/18 16:07 Dose: Not Given Ferrous Gluconate (Fergon) 324 mg PO TID [facility] Last Admin: 04/18/18 11:16 Dose: 324 mg Furosemide (Lasix) 40 mg IVP DAILY [facility] Last Admin: 04/18/18 11:16 Dose: 40 mg Heparin Sodium (Porcine) (Heparin) 5,000 units SC Q8H [facility]; Protocol Last Admin: 04/18/18 05:58 Dose: Not Given Dextrose (Dextrose 5% In Water 1000 Ml) 1,000 mls @ 0 mls/hr IV .Q0M PRN; Protocol PRN Reason: Hypoglycemia Protocol Insulin Detemir (Levemir) 10 unit SC HS [facility] Last Admin: 04/17/18 21:41 Dose: 10 applic Insulin Human Lispro (Humalog Low) 0 units SC ACHS [facility]; Protocol Last Admin: 04/18/18 12:37 Dose: 3 units Metoprolol Tartrate (Lopressor) 25 mg PO BID [facility] Last Admin: 04/18/18 11:19 Dose: 25 mg Nicotine (Nicoderm Cq) 1 patch TD DAILY [facility] Last Admin: 04/18/18 11:19 Dose: 1 patch Pantoprazole Sodium (Protonix Ec Tab) 40 mg PO ACB [facility] Last Admin: 04/18/18 08:39 Dose: 40 mg Paroxetine HCl (Paxil) 5 mg PO HS [facility] Last Admin: 04/17/18 21:09 Dose: 5 mg Prednisone (Prednisone Tab) 40 mg PO DAILY [facility] Vitamin B Complex/Vit C/Folic Acid (Nephro-Enrrique) 1 tab PO 0800 [facility] Last Admin: 04/18/18 08:39 Dose: 1 tab - Labs Labs: 04/18/18 08:50 04/18/18 08:50 PT 11.9 SECONDS (9.4-12.5) 04/11/18 12:25 INR 1.05 04/11/18 12:25 APTT 25.3 Seconds (26.9-38.3) L 04/11/18 12:25 - Constitutional Appears: No Acute Distress - Head Exam Head Exam: ATRAUMATIC, NORMOCEPHALIC - Eye Exam Eye Exam: EOMI - ENT Exam ENT Exam: Mucous Membranes Moist - Respiratory Exam Respiratory Exam: Decreased Breath Sounds, NORMAL BREATHING PATTERN. absent: Accessory Muscle Use - Cardiovascular Exam Cardiovascular Exam: RRR, +S1, +S2. absent: Diastolic murmur, Murmur - GI/Abdominal Exam GI & Abdominal Exam: Soft, Normal Bowel Sounds - Extremities Exam Extremities Exam: Full ROM. absent: Pedal Edema - Neurological Exam Neurological Exam: Alert, Awake, Oriented x3 - Psychiatric Exam Psychiatric exam: Normal Affect, Normal Mood - Skin Skin Exam: Dry, Intact, Warm Assessment and Plan - Assessment and Plan (Free Text) Assessment: Pt is a 57 yo female with a PMH of Breast CA, asthma, COPD, anxiety, DM, and a right pleural effusion who presented with acute hypercapnic respiratory failure, subsequently extubated and transferred to medicine floors Plan: Acute Hypercapnic Respiratory Failure - Likely 2/2 tobacco use in the setting of her known asthma and COPD - duonebs, prednisone, pulmicort, brovana - CXR white out of right side - Chest CT: refused by pt - Pulm, refused BIPAP, elevate HOB 45 degrees, cont pulm toileting, incentive spirometry HCAP - Strep pneumo not detected, legionella negative, MRSA negative, blood cultures NGTD - Procal 0.55 - ID following, monitor off antibiotics, continue to monitor DAHLIA on CKD - BUN 79 - Cr 2.0 - Likely ATN in setting of diabetic and hypertensive chronic kidney disease - Nephrology, cont HTN control, continue with lasix, IR eval for possible thoracocentesis Excoriations on BL UE - bacitracin ointment Anxiety - psyc advises not to continue taking benzos due to the fact that pt has overdosed multiple times - Paxil Breast CA - Palliative care, tried to discuss plan for discharge [facility] vs home. She did not answer my question nor did she want to engage in conversation. Her children were at beside. They stated they will do what ever their mother wants. Patient met with SW and refused BEC[facility], stated she wants to go home - Heme/ Onc, 1 dose of darbapoetin 40mcg sc on 04/13/18 - we will continue this once a week, pt advised to see an oncologist as an out pt for her breast CA, she has been advised this before on previous admissions HLD - lipitor 40mg HTN - metoprolol tartrate 25 BID DM - levemir 10 HS - accuchecks - ISS Tobacco abuse - Counseled, pt amendable to cessation - nicotine patch Ppx - heparin - protonix Pt seen, examined, assessment and plan discussed with Dr Whit Mays PGY1, Internal Medicine Resident <Whit Rick R - Last Filed: 04/19/18 17:30> Objective - Vital Signs/Intake and Output Vital Signs (last 24 hours): Temp Pulse Resp BP Pulse Ox 99.7 F H 88 20 139/62 96 04/19/18 14:00 04/19/18 14:00 04/19/18 14:00 04/19/18 14:00 04/19/18 14:00 Intake and Output: 04/19/18 04/19/18 06:59 18:59 Intake Total 860 480 Output Total 900 Balance -40 480 - Medications Medications: Current Medications Acetylcysteine (Acetylcysteine 20%) 4 ml IH BIDRESP [facility] Last Admin: 04/19/18 08:02 Dose: 4 ml Albuterol/Ipratropium (Duoneb 3 Mg/0.5 Mg (3 Ml) Ud) 3 ml IH Q2H PRN PRN Reason: Shortness of Breath Last Admin: 04/19/18 15:34 Dose: 3 ml Arformoterol Tartrate (Brovana) 15 mcg IH [id number] [facility] Last Admin: 04/19/18 08:02 Dose: 15 mcg Aspirin (Aspirin Chewable) 81 mg PO DAILY [facility] Last Admin: 04/19/18 09:02 Dose: 81 mg Atorvastatin Calcium (Lipitor) 40 mg PO DAILY [facility] Last Admin: 04/19/18 09:01 Dose: 40 mg Bacitracin (Bacitracin) 0 gm TOP BID [facility] Last Admin: 04/19/18 11:27 Dose: 1 applic Benzocaine/Menthol (Cepacol Sore Throat) 1 vy MT Q4H PRN PRN Reason: Sore Throat Budesonide (Pulmicort Respules) 0.5 mg IH [id number] [facility] Last Admin: 04/19/18 08:03 Dose: 0.5 mg Dextrose (Dextrose 50% Inj) 0 ml IV STAT PRN; Protocol PRN Reason: Hypoglycemia Protocol Ergocalciferol (Drisdol 50,000 Intl Units Cap) 1 cap PO Q7D [facility] Last Admin: 04/18/18 17:45 Dose: 1 cap Ferrous Gluconate (Fergon) 324 mg PO TID [facility] Last Admin: 04/19/18 15:33 Dose: 324 mg Furosemide (Lasix) 40 mg IVP DAILY [facility] Last Admin: 04/19/18 09:03 Dose: 40 mg Dextrose (Dextrose 5% In Water 1000 Ml) 1,000 mls @ 0 mls/hr IV .Q0M PRN; Protocol PRN Reason: Hypoglycemia Protocol Insulin Detemir (Levemir) 10 unit SC HS [facility] Last Admin: 04/18/18 22:26 Dose: 10 applic Insulin Human Lispro (Humalog Low) 0 units SC ACHS [facility]; Protocol Last Admin: 04/19/18 11:57 Dose: 2 units Metoprolol Tartrate (Lopressor) 25 mg PO BID [facility] Last Admin: 04/19/18 09:02 Dose: 25 mg Nicotine (Nicoderm Cq) 1 patch TD DAILY [facility] Last Admin: 04/19/18 10:26 Dose: 1 patch Pantoprazole Sodium (Protonix Ec Tab) 40 mg PO ACB [facility] Last Admin: 04/19/18 08:57 Dose: 40 mg Paroxetine HCl (Paxil) 5 mg PO HS [facility] Last Admin: 04/18/18 21:08 Dose: 5 mg Prednisone (Prednisone Tab) 40 mg PO DAILY [facility] Last Admin: 04/19/18 09:01 Dose: 40 mg Vitamin B Complex/Vit C/Folic Acid (Nephro-Enrrique) 1 tab PO 0800 [facility] Last Admin: 04/19/18 08:57 Dose: 1 tab - Labs Labs: 04/19/18 06:30 04/19/18 06:30 PT 11.9 SECONDS (9.4-12.5) 04/11/18 12:25 INR 1.05 04/11/18 12:25 APTT 25.3 Seconds (26.9-38.3) L 04/11/18 12:25 Attending/Attestation - Attestation I have personally seen and examined this patient.: Yes I have fully participated in the care of the patient.: Yes I have reviewed all pertinent clinical information, including history, physical exam and plan: Yes Notes (Text): Patient seen and examined by me with resident at 10:40AM on 04/18/18. Case including HPI, physical exam, and assessment and plan discussed with resident. Agree with above with following additions/corrections. Patient is a 57 year old female with past medical history significant for COPD, asthma, untreated breast cancer, anemia, depression and anxiety, and recurrent UTIs that presented to the emergency room for respiratory failure. Patient states that she feels ok. Patient is asking for something for her throat. Patient is refusing to answer any other questions. Patient is tolerating her diet. Patient is afebrile. Physical exam: General: Awake and alert sitting up in bed in no acute distress HEENT: Normocephalic, atraumatic. Extraocular muscles intact, pupils equal and reactive, no scleral icterus. Oropharynx is pink and moist. No pharyngeal erythema or exudate apreciated. Neck is supple. Cardiovascular: Regular rhythm. Normal S1 and S2. No murmurs, rubs, or gallops appreciated Pulmonary: Normal respiratory effort. Decreased breath sounds. No rhonchi, r ales, or wheezing appreciated. Gastrointestinal: Soft, nondistended. Nontender. Positive bowel sounds all 4 quadrants. No guarding. Musculoskeletal: Moves all extremities. No calf tenderness. Trace bilateral lower extremity edema appreciated. Central nervous system: Awake and alert. CN 2-12 grossly intact. Dermatologic: Skin warm and dry. Positive excoriations with some scabs bilateral forearms and hands. Assessment and plan: Patient is a 57 year old female with past medical history significant for COPD, asthma, untreated breast cancer, anemia, anxiety, and recurrent UTIs that presented to the emergency room for respiratory failure. 1. Pleural effusion. Elevated ProBNP. ProBNP 7140, likely secondary to CKD. Pleural effusion likely secondary to pneumonia vs malignancy. Pulmonary foll owing, recommendations appreciated. Plating Stripper following, recommendations appreciated. Continue IV Lasix. Chest xray showed complete opacification of right hemithorax. IR consulted. Patient refusing thoracentesis and Chest CT. Importance explained to patient in detail. Patient is still refusing. 2. Acute hypercapnic respiratory failure. S/P intubation and extubation. Plant Cytologist following, recommendations appreciated. Continue O2 via nasal cannula as needed. Continue acetylcysteine BID. Continue nebulizer treatments. Continue Brovana and Pulmicort. Continue Prednisone. Patient refusing chest CT and thoracentesis. Continue IV Lasix. Patient refusing BiPAP. Chest xray today 04/17/18 per radiologist showed almost complete opacification of right hemithorax with right-sided volume loss and shift of the heart mediastinum towards the right, patchy opacity at left base, possible pneumonia. IR consulted, follow-up recommendations. Chest CT 04/11/18 per radiologist showed decrease in right lobe consolidation and adjacent pleural effusion, some residual consolidation at right lung base posteriorly; chronic area of scarring or consolidation in posterior aspect of the right lung apex; calcification seen in left upper quadrant of left breast. 3. DAHLIA, likely ATN on Chronic Kidney disease. It Assistant following, recommendations appreciated. BUN/Cr downtreding. Continue IV lasix. Continue nehprovite. Continue to monitor. 4. Noncompliance by refusing service. Patient refusing thoracentesis and chest CT. Patient does not want treatment. Psychiatry reconsulted, follow up recommendations. 5. Healthcare associated pneumonia. Chest x-ray as above. Patient refusing chest CT. ID following, recommendations appreciated. Patient is s/p treatment with cefepime. Leukocytosis resolved. Afebrile. Blood cultures with no growth. Procalcitonin 0.55. Influenza negative, Urine for legionella negative. Urine for strep pneumoniae negative. ID following, recommendations appreciated. 6. Anemia. Likely secondary to malignancy and chronic disease. S/P 2 units PRBCs. Continue ferrous sulfate. Continue to monitor CBC. 7. DM2 with hyperglycemia. Likely secondary to steroids. Continue insulin slidin g scale. Continue Levemir at bedtime. Continue to monitor accuchecks. Hgb AIC was 8.8 on 04/03/18. 8. Essential hypertension. Continue Metoporolol and IV Lasix 9. Hyperlipidemia. Continue lipitor. 10. History of breast cancer. S/P 1 cycle of chemo, patient refused chemo and surgery post one cycle. Will need repeat Chest CT in one month per hem/onc. Hem/onc following, recommendations appreciated. 11. Tobacco abuse. Patient counseled at length on tobacco cessation. Continue with nicotine patch. 12. Depression and Anxiety. Psychiatrist re-consulted, follow up recommendations. Continue Paxil 5 mg at bedtime. No benzodiazepines or narcotics to be given secondary to respiratory depression. 13. GI/DVT prophylaxis. Protonix/heparin 14. Patient is a full code. Palliative care recommendations appreciated. Case was discussed in detail with the patient regarding current diagnosis and treatment plan. All questions answered.
--- NOTE | 2018-04-18 15:46 | CP.PCM.PN ---
Subjective - Date & Time of Evaluation Date of Evaluation: 04/18/18 Time of Evaluation: 15:46 - Subjective Subjective: Nephrology Consultation Note: Assessment: stable DAHLIA likely ATN, non-oliguric: improving acute on chronc respi acidosis with respi failure with renal compensation rt pleural effusion with chest wall mass ? 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 overall poor pro gnosis, seen by palliative care Hypertension control with meds as ordered. Maintain hemodynamics stable. Avoid hypotension. Patient not on ACEI/ARB due to recent DAHLIA, hyperkalemic tendency Monitor Input/Output, daily weights and renal function with basic metabolic panel will defer use of [place] to heme/onc in view of her recent breast malignancy with concerns for mets. PRBC as needed continue with iron 325 mg TID, MVI and weekly Vit D supplement lytes as needed seen by cardio heme/onc and pulmonary continue with lasix IR eval for possible thoracocentesis Dose meds/antibiotics for reduced GFR. Avoid fleets enema/magnesium based laxatives. Avoid nephrotoxins/NSAIDs/ iodinated contrast (unless needed emergently) Glycemic control. pt need to stop smoking Further work up/management as per primary team Thanks for allowing me to participate in care of your patient. Will follow patient with you. Please call if any Qs. had d/w team Dr Marco Antonio Chatman Office: [phone] Chief Complaint; SOB Reason for consult: CKD 3, DAHLIA HPI: Pt is a 57 F with hx of diabetes Mellitus ( years), hypertension (years) COPD/asthma, active smoker, breast cancer s/p surgery 2 years ago but didn't complete treatment now with mets, anemia, CKD stage 3 with baseline cr 1.8 mg/dL and AKIs (peaked cr 4) admitted with acute respi distress hypercapnic respi failure and intubated/extubated, now seen for CKD management Denies OTC/herbal meds or NSAIDs No recent iodinated contrast exposure. No obvious episodes of low BP. pt was recently admitted for same and she signed out AMA. ROS: pt is a poor historian and overall hx is limited from her. SOB better. no chest pain Physical Examination: General Appearance: stable appearing. on o2 Vitals reviewed and noted as below Head; Atraumatic, normocephalic ENT: no ulcers no thrush. Tongue is midline. Oropharynx: no rash or ulcers. she is hard of hearing EYES: Pupils are equal, round and reactive to light accommodation. Eye muscles and extraocular movement intact. Sclera is anicteric. has some periorbital puffiness Neck; supple no lymphadenopathy, no thyromegaly or bruit Lungs: Improved respiratory rate/effort. Breath sounds reduced at rt side. has wheezine and rales + Heart: normal rate. s1s2 normal. No rub or gallop. Extremities: 1-2+ edema. No varicose veins Neurological: Patient is alert, awake and oriented to person, place and time. No focal deficit. Strength bilateral appropriate and equal Skin: Warm and dry. Normal turgor. No rash. Palpitation: Normal elasticity for age Abdomen: Abdomen is soft. Bowel sounds +. There is no abdominal tenderness, no guarding/rigidity no organomegaly Psych: lack insight and flat affect/mood MSK: no joint tenderness or swelling. Digits and nails normal, no deformity : kidney or bladder not palpable Labs/imaging reviewed. Past medical history, past surgical history, family history, social history, allergy reviewed and noted as below Family hx: no hx of CKD. Rest non-contributory renal imaging: b/l cysts echo normal LVEF TSAt 26% ferritin 45 Serum FLC assay WNL ABDIRIZAK neg PTH 154 Vit D 17 Objective - Vital Signs/Intake and Output Vital Signs (last 24 hours): Temp Pulse Resp BP Pulse Ox 99.4 F 99 H 18 173/56 H 94 L 04/18/18 06:00 04/18/18 11:19 04/18/18 06:00 04/18/18 11:19 04/18/18 06:00 Intake and Output: 04/18/18 04/18/18 06:59 18:59 Intake Total 860 420 Output Total 800 600 Balance 60 -180 - Medications Medications: Current Medications Acetylcysteine (Acetylcysteine 20%) 4 ml IH BIDRESP LUCIANO Last Admin: 04/18/18 07:40 Dose: 4 ml Albuterol/Ipratropium (Duoneb 3 Mg/0.5 Mg (3 Ml) Ud) 3 ml IH Q2H PRN PRN Reason: Shortness of Breath Last Admin: 04/18/18 03:30 Dose: 3 ml Arformoterol Tartrate (Brovana) 15 mcg IH [id number] [facility] Last Admin: 04/18/18 07:40 Dose: 15 mcg Aspirin (Aspirin Chewable) 81 mg PO DAILY [facility] Last Admin: 04/18/18 11:16 Dose: 81 mg Atorvastatin Calcium (Lipitor) 40 mg PO DAILY [facility] Last Admin: 04/18/18 11:15 Dose: 40 mg Bacitracin (Bacitracin) 0 gm TOP BID [facility] Last Admin: 04/18/18 11:29 Dose: 1 applic Benzocaine/Menthol (Cepacol Sore Throat) 1 vy MT Q4H PRN PRN Reason: Sore Throat Budesonide (Pulmicort Respules) 0.5 mg IH [id number] [facility] Last Admin: 04/18/18 07:40 Dose: 0.5 mg Dextrose (Dextrose 50% Inj) 0 ml IV STAT PRN; Protocol PRN Reason: Hypoglycemia Protocol Ergocalciferol (Drisdol 50,000 Intl Units Cap) 1 cap PO Q7D [facility] Last Admin: 04/11/18 16:07 Dose: Not Given Ferrous Gluconate (Fergon) 324 mg PO TID [facility] Last Admin: 04/18/18 15:40 Dose: 324 mg Furosemide (Lasix) 40 mg IVP DAILY [facility] Last Admin: 04/18/18 11:16 Dose: 40 mg Heparin Sodium (Porcine) (Heparin) 5,000 units SC Q8H [facility]; Protocol Last Admin: 04/18/18 15:39 Dose: 5,000 units Dextrose (Dextrose 5% In Water 1000 Ml) 1,000 mls @ 0 mls/hr IV .Q0M PRN; Protocol PRN Reason: Hypoglycemia Protocol Insulin Detemir (Levemir) 10 unit SC HS [facility] Last Admin: 04/17/18 21:41 Dose: 10 applic Insulin Human Lispro (Humalog Low) 0 units SC ACHS [facility]; Protocol Last Admin: 04/18/18 12:37 Dose: 3 units Metoprolol Tartrate (Lopressor) 25 mg PO BID [facility] Last Admin: 04/18/18 11:19 Dose: 25 mg Nicotine (Nicoderm Cq) 1 patch TD DAILY [facility] Last Admin: 04/18/18 11:19 Dose: 1 patch Pantoprazole Sodium (Protonix Ec Tab) 40 mg PO ACB [facility] Last Admin: 04/18/18 08:39 Dose: 40 mg Paroxetine HCl (Paxil) 5 mg PO HS [facility] Last Admin: 04/17/18 21:09 Dose: 5 mg Prednisone (Prednisone Tab) 40 mg PO DAILY [facility] Vitamin B Complex/Vit C/Folic Acid (Nephro-Enrrique) 1 tab PO 0800 [facility] Last Admin: 04/18/18 08:39 Dose: 1 tab - Labs Labs: 04/18/18 08:50 04/18/18 08:50 PT 11.9 SECONDS (9.4-12.5) 04/11/18 12:25 INR 1.05 04/11/18 12:25 APTT 25.3 Seconds (26.9-38.3) L 04/11/18 12:25
[2018-04-18] MEDS: Ergocalciferol 50,000 Intl Units Cap PO SCH (17:45)
--- NOTE | 2018-04-18 19:23 | CON ---
DATE: 04/18/2018 HISTORY OF PRESENT ILLNESS: The patient is a 57-year-old female with history of anxiety, who has had multiple medical admissions for respiratory distress. Psychiatry has consulted on the patient on multiple times and recently the patient has admitted to suppressive [facility] and appears to be willing to initiate for both depression and anxiety. However, for some unknown reasons, she appears to take Paxil and was started, however, she did take a dose last night and appears to be tolerating it thus far. Paxil was started in view of continuing Xanax for any other benzo for the patient due to her high risk for respiratory distress. I met her bedside she appears to recognize me, asked she is aware that she is in hospital, she knows month, year. She is very hard of hearing and talk directly into her right ear. She admits to depression. She is willing to continue with Paxil. She denies having any thoughts of harm herself. She wants to live. She is little labile, but in fair control and appears genuine regarding information provided and generally consistent. I did not note major behavioral issues, some increase with her experience, however, this to be associated with personality and/or delirium. Insight and judgement considered to be fair at this time. The patient is not experiencing any hallucinations and delusions were not elicited. PHYSICAL EXAMINATION: VITAL SIGNS: Not reviewed. RELEVANT PSYCHIATRIC MEDICATIONS: Only include Paxil 5 mg at bedtime. IMPRESSION: Delirium improving, the patient has disorder, depression not otherwise specified, anxiety disorder. RECOMMENDATIONS: We will continue with Paxil 5 mg at bedtime, which will be titrated slowly as medical condition improves. Psychiatry continue followup the patient every other day. Next followup will be on Monday,04/20/2018, by Dr. Ernst and at that point we will consider increasing Paxil further to 10 mg at bedtime. Pamela Schulte MD
[2018-04-18] MEDS: Insulin Detemir 100 units/ml Vial (Levemir) SC SCH (22:26)
[2018-04-19 07:02] LABS: EOS % 0.4 % (1.5-5.0); HEMOGLOBIN 8.9 g/dL (12.0-16.0); LYMPH # 0.8 (1.2-3.4); LYMPH % 9.1 % (22.0-35.0); MEAN CELL VOLUME 97.1 fl (80.0-105.0); MEAN CORPUSCULAR HEMOGLOBIN 28.7 pg (25.0-35.0); MEAN CORPUSCULAR HGB CONC 29.6 g/dl (31.0-37.0); MONO # 0.4 (0.1-0.6); MONO % 4.1 % (1.0-6.0); PLATELET COUNT 92 10^3/uL (120.0-450.0); RED CELL DISTRIBUTION WIDTH 19.5 % (11.5-14.5); WHITE BLOOD COUNT 9.1 10^3/uL (4.5-11.0)
[2018-04-19 07:28] LABS: ALB/GLOB RATIO 1.3 (1.1-1.8); ALBUMIN 2.9 g/dL (3.0-4.8); CALCIUM 7.3 mg/dL (8.4-10.5)
[2018-04-19] MEDS: Arformoterol 15 mcg/2 ml Inh Sol IH SCH ×2 (08:02→20:01)
[2018-04-19] MEDS: Acetylcysteine 20% Inhal Soln (4ml) IH SCH ×2 (08:02→20:01)
[2018-04-19] MEDS: Budesonide 0.5 mg/2 ml Inhal Susp UD IH SCH ×2 (08:03→20:02)
--- NOTE | 2018-04-19 08:32 | CP.PCM.PN ---
Subjective - Date & Time of Evaluation Date of Evaluation: 04/19/18 Time of Evaluation: 06:40 - Subjective Subjective: lying in bed, Awake, alert, no distress Reason for consultation and follow up:Cardiac evaluation of shortness of breath, respiratory failure requiring intubation and admitted to ICU, post extubation, history of COPD, asthma, breast cancer. Seen and examined by me and Dr. Hernandez Objective - Vital Signs/Intake and Output Vital Signs (last 24 hours): Temp Pulse Resp BP Pulse Ox 100 F H 80 18 140/72 100 04/18/18 22:00 04/18/18 22:00 04/18/18 22:00 04/18/18 22:00 04/18/18 22:00 Intake and Output: 04/19/18 04/19/18 06:59 18:59 Intake Total 860 Output Total 900 Balance -40 - Medications Medications: Current Medications Acetylcysteine (Acetylcysteine 20%) 4 ml IH BIDRESP [facility] Last Admin: 04/19/18 08:02 Dose: 4 ml Albuterol/Ipratropium (Duoneb 3 Mg/0.5 Mg (3 Ml) Ud) 3 ml IH Q2H PRN PRN Reason: Shortness of Breath Last Admin: 04/18/18 03:30 Dose: 3 ml Arformoterol Tartrate (Brovana) 15 mcg IH [id number] [facility] Last Admin: 04/19/18 08:02 Dose: 15 mcg Aspirin (Aspirin Chewable) 81 mg PO DAILY [facility] Last Admin: 04/18/18 11:16 Dose: 81 mg Atorvastatin Calcium (Lipitor) 40 mg PO DAILY [facility] Last Admin: 04/18/18 11:15 Dose: 40 mg Bacitracin (Bacitracin) 0 gm TOP BID [facility] Last Admin: 04/18/18 17:49 Dose: 1 applic Benzocaine/Menthol (Cepacol Sore Throat) 1 vy MT Q4H PRN PRN Reason: Sore Throat Budesonide (Pulmicort Respules) 0.5 mg IH [id number] [facility] Last Admin: 04/19/18 08:03 Dose: 0.5 mg Dextrose (Dextrose 50% Inj) 0 ml IV STAT PRN; Protocol PRN Reason: Hypoglycemia Protocol Ergocalciferol (Drisdol 50,000 Intl Units Cap) 1 cap PO Q7D [facility] Last Admin: 04/18/18 17:45 Dose: 1 cap Ferrous Gluconate (Fergon) 324 mg PO TID [facility] Last Admin: 04/18/18 17:41 Dose: 324 mg Furosemide (Lasix) 40 mg IVP DAILY [facility] Last Admin: 04/18/18 11:16 Dose: 40 mg Heparin Sodium (Porcine) (Heparin) 5,000 units SC Q8H [facility]; Protocol Last Admin: 04/19/18 05:36 Dose: 5,000 units Dextrose (Dextrose 5% In Water 1000 Ml) 1,000 mls @ 0 mls/hr IV .Q0M PRN; Protocol PRN Reason: Hypoglycemia Protocol Insulin Detemir (Levemir) 10 unit SC HS [facility] Last Admin: 04/18/18 22:26 Dose: 10 applic Insulin Human Lispro (Humalog Low) 0 units SC ACHS [facility]; Protocol Last Admin: 04/18/18 22:25 Dose: 2 bottle Metoprolol Tartrate (Lopressor) 25 mg PO BID [facility] Last Admin: 04/18/18 17:41 Dose: 25 mg Nicotine (Nicoderm Cq) 1 patch TD DAILY [facility] Last Admin: 04/18/18 11:19 Dose: 1 patch Pantoprazole Sodium (Protonix Ec Tab) 40 mg PO ACB [facility] Last Admin: 04/18/18 08:39 Dose: 40 mg Paroxetine HCl (Paxil) 5 mg PO HS [facility] Last Admin: 04/18/18 21:08 Dose: 5 mg Prednisone (Prednisone Tab) 40 mg PO DAILY [facility] Vitamin B Complex/Vit C/Folic Acid (Nephro-Enrrique) 1 tab PO 0800 [facility] Last Admin: 04/18/18 08:39 Dose: 1 tab - Labs Labs: 04/19/18 06:30 04/19/18 06:30 PT 11.9 SECONDS (9.4-12.5) 04/11/18 12:25 INR 1.05 04/11/18 12:25 APTT 25.3 Seconds (26.9-38.3) L 04/11/18 12:25 - Constitutional Appears: Non-toxic, No Acute Distress - Head Exam Head Exam: NORMAL INSPECTION, NORMOCEPHALIC - Eye Exam Eye Exam: Normal appearance Pupil Exam: NORMAL ACCOMODATION - ENT Exam ENT Exam: Mucous Membranes Moist - Neck Exam Neck Exam: Full ROM, Normal Inspection - Respiratory Exam Respiratory Exam: Decreased Breath Sounds, NORMAL BREATHING PATTERN - Cardiovascular Exam Cardiovascular Exam: +S1, +S2 Additional comments: right chest port - GI/Abdominal Exam GI & Abdominal Exam: Soft, Normal Bowel Sounds - Neurological Exam Neurological Exam: Alert, Awake - Psychiatric Exam Psychiatric exam: Normal Affect, Normal Mood - Skin Skin Exam: Dry, Normal Color, Warm Assessment and Plan - Assessment and Plan (Free Text) Assessment: A 57 year old female, who was brought to the ER due to respiratory distress requiring intubation and admitted to ICU. History of chronic obstructive pulmonary disease, still actively smokes,1 PPD x 40 years, asthma, breast cancer with chemo 06/2015, anxiety,depression, chronic back pain, diabetes, and recurrent urinary tract infection. She signed out against medical advice because she wanted to smoke. Prior to this admission diagnosed with for sepsis and hypercapnia and exacerbation of COPD. Low hemoglobin on admission and transfused 2 units of PRBC. Stabilized in ICU, extubated. Stabilized and now transferred to Medical unit. Recent echo 03/09/18 showed LVEF 62%-mild MR/TR. Cardiac status stable. Stable hemoglobin/hematocrit. Smoking cessation. Recent Chest X ray showed large right pleural effusion.Complete opacification of the right janay thorax with right sided volume and shift of the heart mediastinum towards the right . Patchy opacity at left base possible pneumonia. Scheduled for thoracenthesis yesterday but refused for the procedure. Evaluated by Psych. Followed up by oncology. Plan: Refusing thoracenthesis for right pleural effusion No distress, denies shortness of breath Blood pressure controlled Heart rate controlled Cardiac status stable On ASA 81 mg daily,Lipitor 40 mg daily,Solumedrol 40 mg daily, Lopressor 25 mg BID, Nicoderm patch daily, Lasix 40 mg daily, Heparin 5000 units every 8 hours, Continue current medications Continue current treatment Smoking cessation Will follow up Plan and treatment discussed with Dr. Hernandez
[2018-04-19] MEDS: Insulin Lispro (humaLOG) LOW Coverage SC SCH ×4 (08:51→22:24)
[2018-04-19] MEDS: Multivitamin Vitamin B Complex (Nephro-Vite) Tab PO SCH (08:57)
[2018-04-19] MEDS: Pantoprazole 40 mg EC Tab PO SCH (08:57)
[2018-04-19] MEDS ORDERED: Potassium Chloride 20 mEq/15 ml LIQ UD PO STA ×2 (11:01→18:04)
[2018-04-19] MEDS: Bacitracin Ointment 30 GM TUBE TOP SCH ×2 (11:27→19:00)
--- NOTE | 2018-04-19 11:40 | PN ---
DATE: 04/19/2018 PULMONARY PROGRESS NOTE REFERRING PHYSICIAN: Darius Rdz MD SUBJECTIVE: The patient is lying in bed. No acute distress. No overnight events reported. The patient does have occasional nonproductive cough and shortness of breath with exertion. No headache, rhinitis, chest pain, abdominal pain, nausea, vomiting, diarrhea, leg pain or leg swelling reported. OBJECTIVE: GENERAL: No acute distress. VITAL SIGNS: Blood pressure 113/49, pulse 84, temperature 99, and oxygen saturation 99%. HEENT: Moist mucous membranes. Crowded airway. NECK: Supple. No JVD. LUNGS: Scattered rhonchi; decreased breath sounds on the right. CARDIOVASCULAR: S1 and S2 audible. ABDOMEN: Soft and nontender. No distention. No organomegaly. EXTREMITIES: No bilateral lower extremity edema. NEUROLOGIC: Awake, alert and verbal. Follows commands. The patient is hard of hearing. MEDICATIONS: Reviewed. Mucomyst 4 mL inhalation twice a day, DuoNeb 3 mL inhalation every 2 hours p.r.n., Brovana 15 mcg every 12 hours, aspirin 81 mg daily, Lipitor 40 mg daily, bacitracin topically twice a day to affected area, Cepacol throat lozenges every 4 hours p.r.n, Pulmicort 0.5 mg inhalation every 12 hours, ergocalciferol 50,000 units weekly, ferrous gluconate 324 mg three times a day, Lasix 40 mg daily, heparin 5000 units subcutaneously every 8 hours, Levemir 10 units subcutaneously at bedtime, Humalog sliding scale before meals and at bedtime, Lopressor 25 mg twice a day, nicotine patch transdermally daily, Protonix 20 mg before meals, Paxil 5 mg at bedtime, prednisone 40 mg daily, and Nephro-Enrrique one tablet daily. LABORATORY DATA: Reviewed. WBC 9.1, RBC 3.10, hemoglobin 8.9, hematocrit 30.1, and platelets 92. Sodium 143, potassium 3.4, chloride 102, carbon dioxide 39, anion gap 6, BUN 70, creatinine 1.9, GFR 27, POC glucose 200, random glucose 204, calcium 7.4, total bilirubin 0.6, AST 22, ALT 66, alkaline phosphatase 68, total protein 5.3, albumin 2.9, globulin 2.3, and albumin-globulin ratio 1.3. IMPRESSION AND PLAN: Respiratory failure, atelectasis, chronic obstructive lung disease, diabetes, pneumonia, history of breast cancer, recurrent urinary tract infection, and obstructive sleep apnea syndrome. The patient has history of noncompliance of medications and treatment plan in the past; also noncompliant with followup. Refuses bilevel positive airway pressure or continuous positive airway pressure at this time for suspected sleep apnea. Sleep apnea precautions, head of bed elevated at 45 degrees. Continue current steroid, prednisone 40 mg daily. Continue gastric prophylaxis, deep venous thrombosis prophylaxis and fall precautions. We will continue pulmonary toileting, chest physiotherapy, and incentive spirometry. The patient is a high risk for respiratory failure. Recommend physical therapy and out of bed to chair. The patient is seen and examined with Dr. Rucker. Discussed assessment and plan as described above. Thank yo for this consult. We will follow with you. Didier Dennis APN Lisa Rucker MD
--- NOTE | 2018-04-19 14:05 | CP.PCM.PN ---
Subjective - Date & Time of Evaluation Date of Evaluation: 04/19/18 Time of Evaluation: 14:04 - Subjective Subjective: Nephrology Consultation Note: Assessment: stable DAHLIA likely ATN, non-oliguric: improving acute on chronc respi acidosis with respi failure with renal compensation rt pleural effusion with chest wall mass ? 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 overall poor pro gnosis, seen by palliative care Hypertension control with meds as ordered. Maintain hemodynamics stable. Avoid hypotension. Patient not on ACEI/ARB due to recent DAHLIA, hyperkalemic tendency Monitor Input/Output, daily weights and renal function with basic metabolic panel will defer use of [place] to heme/onc in view of her recent breast malignancy with concerns for mets. PRBC as needed continue with iron 325 mg TID, MVI and weekly Vit D supplement lytes as needed seen by cardio heme/onc and pulmonary continue with lasix , can change to oral IR eval for possible thoracocentesis Dose meds/antibiotics for reduced GFR. Avoid fleets enema/magnesium based laxatives. Avoid nephrotoxins/NSAIDs/ iodinated contrast (unless needed emergently) Glycemic control. pt need to stop smoking Further work up/management as per primary team Thanks for allowing me to participate in care of your patient. Will follow patient with you. Please call if any Qs. had d/w team Dr Marco Antonio Chatman Office: [phone] Chief Complaint; SOB Reason for consult: CKD 3, DAHLIA HPI: Pt is a 57 F with hx of diabetes Mellitus ( years), hypertension (years) COPD/asthma, active smoker, breast cancer s/p surgery 2 years ago but didn't complete treatment now with mets, anemia, CKD stage 3 with baseline cr 1.8 mg/dL and AKIs (peaked cr 4) admitted with acute respi distress hypercapnic respi fa ilure and intubated/extubated, now seen for CKD management Denies OTC/herbal meds or NSAIDs No recent iodinated contrast exposure. No obvious episodes of low BP. pt was recently admitted for same and she signed out AMA. ROS: pt is a poor historian and overall hx is limited from her. SOB better. no chest pain Physical Examination: General Appearance: stable appearing. on o2 Vitals reviewed and noted as below Head; Atraumatic, normocephalic ENT: no ulcers no thrush. Tongue is midline. Oropharynx: no rash or ulcers. she is hard of hearing EYES: Pupils are equal, round and reactive to light accommodation. Eye muscles and extraocular movement intact. Sclera is anicteric. has some periorbital puffiness Neck; supple no lymphadenopathy, no thyromegaly or bruit Lungs: Improved respiratory rate/effort. Breath sounds reduced at rt side. has wheezine and rales + Heart: normal rate. s1s2 normal. No rub or gallop. Extremities: no edema. No varicose veins Neurological: Patient is alert, awake and oriented to person, place and time. No focal deficit. Strength bilateral appropriate and equal Skin: Warm and dry. Normal turgor. No rash. Palpitation: Normal elasticity for age Abdomen: Abdomen is soft. Bowel sounds +. There is no abdominal tenderness, no guarding/rigidity no organomegaly Psych: lack insight and flat affect/mood MSK: no joint tenderness or swelling. Digits and nails normal, no deformity : kidney or bladder not palpable Labs/imaging reviewed. Past medical history, past surgical history, family history, social history, allergy reviewed and noted as below Family hx: no hx of CKD. Rest non-contributory renal imaging: b/l cysts echo normal LVEF TSAt 26% ferritin 45 Serum FLC assay WNL ABDIRIZAK neg PTH 154 Vit D 17 Objective - Vital Signs/Intake and Output Vital Signs (last 24 hours): Temp Pulse Resp BP Pulse Ox 99 F 84 18 113/49 L 99 04/19/18 06:00 04/19/18 09:02 04/19/18 06:00 04/19/18 09:03 04/19/18 06:00 Intake and Output: 04/19/18 04/19/18 06:59 18:59 Intake Total 860 Output Total 900 Balance -40 - Medications Medications: Current Medications Acetylcysteine (Acetylcysteine 20%) 4 ml IH BIDRESP LUCIANO Last Admin: 04/19/18 08:02 Dose: 4 ml Albuterol/Ipratropium (Duoneb 3 Mg/0.5 Mg (3 Ml) Ud) 3 ml IH Q2H PRN PRN Reason: Shortness of Breath Last Admin: 04/18/18 03:30 Dose: 3 ml Arformoterol Tartrate (Brovana) 15 mcg IH [id number] [facility] Last Admin: 04/19/18 08:02 Dose: 15 mcg Aspirin (Aspirin Chewable) 81 mg PO DAILY [facility] Last Admin: 04/19/18 09:02 Dose: 81 mg Atorvastatin Calcium (Lipitor) 40 mg PO DAILY [facility] Last Admin: 04/19/18 09:01 Dose: 40 mg Bacitracin (Bacitracin) 0 gm TOP BID [facility] Last Admin: 04/19/18 11:27 Dose: 1 applic Benzocaine/Menthol (Cepacol Sore Throat) 1 vy MT Q4H PRN PRN Reason: Sore Throat Budesonide (Pulmicort Respules) 0.5 mg IH [id number] [facility] Last Admin: 04/19/18 08:03 Dose: 0.5 mg Dextrose (Dextrose 50% Inj) 0 ml IV STAT PRN; Protocol PRN Reason: Hypoglycemia Protocol Ergocalciferol (Drisdol 50,000 Intl Units Cap) 1 cap PO Q7D [facility] Last Admin: 04/18/18 17:45 Dose: 1 cap Ferrous Gluconate (Fergon) 324 mg PO TID [facility] Last Admin: 04/19/18 09:03 Dose: 324 mg Furosemide (Lasix) 40 mg IVP DAILY [facility] Last Admin: 04/19/18 09:03 Dose: 40 mg Heparin Sodium (Porcine) (Heparin) 5,000 units SC Q8H [facility]; Protocol Last Admin: 04/19/18 05:36 Dose: 5,000 units Dextrose (Dextrose 5% In Water 1000 Ml) 1,000 mls @ 0 mls/hr IV .Q0M PRN; Protocol PRN Reason: Hypoglycemia Protocol Insulin Detemir (Levemir) 10 unit SC HS [facility] Last Admin: 04/18/18 22:26 Dose: 10 applic Insulin Human Lispro (Humalog Low) 0 units SC ACHS [facility]; Protocol Last Admin: 04/19/18 11:57 Dose: 2 units Metoprolol Tartrate (Lopressor) 25 mg PO BID [facility] Last Admin: 04/19/18 09:02 Dose: 25 mg Nicotine (Nicoderm Cq) 1 patch TD DAILY [facility] Last Admin: 04/19/18 10:26 Dose: 1 patch Pantoprazole Sodium (Protonix Ec Tab) 40 mg PO ACB [facility] Last Admin: 04/19/18 08:57 Dose: 40 mg Paroxetine HCl (Paxil) 5 mg PO HS [facility] Last Admin: 04/18/18 21:08 Dose: 5 mg Prednisone (Prednisone Tab) 40 mg PO DAILY [facility] Last Admin: 04/19/18 09:01 Dose: 40 mg Vitamin B Complex/Vit C/Folic Acid (Nephro-Enrrique) 1 tab PO 0800 [facility] Last Admin: 04/19/18 08:57 Dose: 1 tab - Labs Labs: 04/19/18 06:30 04/19/18 06:30 PT 11.9 SECONDS (9.4-12.5) 04/11/18 12:25 INR 1.05 04/11/18 12:25 APTT 25.3 Seconds (26.9-38.3) L 04/11/18 12:25
--- NOTE | 2018-04-19 14:24 | CP.PCM.PN ---
<Aj Maysron - Last Filed: 04/19/18 14:35> Subjective - Date & Time of Evaluation Date of Evaluation: 04/19/18 Time of Evaluation: 06:30 - Subjective Subjective: Pt seen and examined this morning. Per nursing, pt scratching her arms, purewick in place draining altaf urine, Pt refusing thoracentesis, pt having disorganized thoughts. Objective - Vital Signs/Intake and Output Vital Signs (last 24 hours): Temp Pulse Resp BP Pulse Ox 99 F 84 18 113/49 L 99 04/19/18 06:00 04/19/18 09:02 04/19/18 06:00 04/19/18 09:03 04/19/18 06:00 Intake and Output: 04/19/18 04/19/18 06:59 18:59 Intake Total 860 Output Total 900 Balance -40 - Medications Medications: Current Medications Acetylcysteine (Acetylcysteine 20%) 4 ml IH BIDRESP [facility] Last Admin: 04/19/18 08:02 Dose: 4 ml Albuterol/Ipratropium (Duoneb 3 Mg/0.5 Mg (3 Ml) Ud) 3 ml IH Q2H PRN PRN Reason: Shortness of Breath Last Admin: 04/18/18 03:30 Dose: 3 ml Arformoterol Tartrate (Brovana) 15 mcg IH [id number] [facility] Last Admin: 04/19/18 08:02 Dose: 15 mcg Aspirin (Aspirin Chewable) 81 mg PO DAILY [facility] Last Admin: 04/19/18 09:02 Dose: 81 mg Atorvastatin Calcium (Lipitor) 40 mg PO DAILY [facility] Last Admin: 04/19/18 09:01 Dose: 40 mg Bacitracin (Bacitracin) 0 gm TOP BID [facility] Last Admin: 04/19/18 11:27 Dose: 1 applic Benzocaine/Menthol (Cepacol Sore Throat) 1 vy MT Q4H PRN PRN Reason: Sore Throat Budesonide (Pulmicort Respules) 0.5 mg IH [id number] [facility] Last Admin: 04/19/18 08:03 Dose: 0.5 mg Dextrose (Dextrose 50% Inj) 0 ml IV STAT PRN; Protocol PRN Reason: Hypoglycemia Protocol Ergocalciferol (Drisdol 50,000 Intl Units Cap) 1 cap PO Q7D [facility] Last Admin: 04/18/18 17:45 Dose: 1 cap Ferrous Gluconate (Fergon) 324 mg PO TID [facility] Last Admin: 04/19/18 09:03 Dose: 324 mg Furosemide (Lasix) 40 mg IVP DAILY [facility] Last Admin: 04/19/18 09:03 Dose: 40 mg Heparin Sodium (Porcine) (Heparin) 5,000 units SC Q8H [facility]; Protocol Last Admin: 04/19/18 05:36 Dose: 5,000 units Dextrose (Dextrose 5% In Water 1000 Ml) 1,000 mls @ 0 mls/hr IV .Q0M PRN; Protocol PRN Reason: Hypoglycemia Protocol Insulin Detemir (Levemir) 10 unit SC HS [facility] Last Admin: 04/18/18 22:26 Dose: 10 applic Insulin Human Lispro (Humalog Low) 0 units SC ACHS [facility]; Protocol Last Admin: 04/19/18 11:57 Dose: 2 units Metoprolol Tartrate (Lopressor) 25 mg PO BID [facility] Last Admin: 04/19/18 09:02 Dose: 25 mg Nicotine (Nicoderm Cq) 1 patch TD DAILY [facility] Last Admin: 04/19/18 10:26 Dose: 1 patch Pantoprazole Sodium (Protonix Ec Tab) 40 mg PO ACB [facility] Last Admin: 04/19/18 08:57 Dose: 40 mg Paroxetine HCl (Paxil) 5 mg PO HS [facility] Last Admin: 04/18/18 21:08 Dose: 5 mg Prednisone (Prednisone Tab) 40 mg PO DAILY [facility] Last Admin: 04/19/18 09:01 Dose: 40 mg Vitamin B Complex/Vit C/Folic Acid (Nephro-Silvio) 1 tab PO 0800 [facility] Last Admin: 04/19/18 08:57 Dose: 1 tab - Labs Labs: 04/19/18 06:30 04/19/18 06:30 PT 11.9 SECONDS (9.4-12.5) 04/11/18 12:25 INR 1.05 04/11/18 12:25 APTT 25.3 Seconds (26.9-38.3) L 04/11/18 12:25 - Constitutional Appears: No Acute Distress - Head Exam Head Exam: ATRAUMATIC, NORMOCEPHALIC - Eye Exam Eye Exam: EOMI - ENT Exam ENT Exam: Mucous Membranes Moist - Neck Exam Neck Exam: Full ROM - Respiratory Exam Respiratory Exam: Decreased Breath Sounds. absent: Accessory Muscle Use, Respiratory Distress - Cardiovascular Exam Cardiovascular Exam: RRR, +S1, +S2. absent: Diastolic murmur, Murmur - GI/Abdominal Exam GI & Abdominal Exam: Soft, Normal Bowel Sounds. absent: Tenderness - Extremities Exam Extremities Exam: Full ROM. absent: Calf Tenderness, Pedal Edema - Neurological Exam Neurological Exam: Alert, Awake, Normal Gait - Psychiatric Exam Psychiatric exam: Normal Affect - Skin Skin Exam: Dry, Normal Color, Warm Assessment and Plan - Assessment and Plan (Free Text) Assessment: Pt is a 57 yo female with a PMH of Breast CA, asthma, COPD, anxiety, DM, and a right pleural effusion who presented with acute hypercapnic respiratory failure, subsequently extubated and transferred to medicine floors Plan: Acute Hypercapnic Respiratory Failure - Likely 2/2 tobacco use in the setting of her known asthma and COPD - duonebs, prednisone, pulmicort, brovana - CXR white out of right side - Chest CT: refused by pt - Pulm, refused BIPAP, elevate HOB 45 degrees, cont pulm toileting, incentive spirometry HCAP - Strep pneumo not detected, legionella negative, MRSA negative, blood cultures NGTD - Procal 0.55 - ID following, monitor off antibiotics, continue to monitor DAHLIA on CKD - BUN 70 - Cr 1.9 - Likely ATN in setting of diabetic and hypertensive chronic kidney disease - Nephrology, cont HTN control, continue with lasix, IR eval for possible thoracocentesis Excoriations on BL UE - bacitracin ointment Anxiety - psyc advises not to continue taking benzos due to the fact that pt has overdosed multiple times - Paxil DM - levemir 10 HS - accuchecks - ISS HLD - lipitor 40mg HTN - metoprolol tartrate 25 BID Breast CA - Palliative care, tried to discuss plan for discharge BECKY vs home. She did not answer my question nor did she want to engage in conversation. Her children were at beside. They stated they will do what ever their mother wants. Patient met with SW and refused BECKY, stated she wants to go home - Heme/ Onc, 1 dose of darbapoetin 40mcg sc on 04/13/18 - we will continue this once a week, pt advised to see an oncologist as an out pt for her breast CA, she has been advised this before on previous admissions Tobacco abuse - Counseled, pt amendable to cessation - nicotine patch Ppx - heparin - protonix Dispo: Psyc consulted, will determine if pt has capacity to make her own medical decisions Pt seen, examined, assessment and plan discussed with Dr Whit Mays PGY1, Internal Medicine Resident <Whit Rick R - Last Filed: 04/20/18 08:11> Objective - Vital Signs/Intake and Output Vital Signs (last 24 hours): Temp Pulse Resp BP Pulse Ox 98.8 F 87 18 142/55 L 96 04/19/18 23:24 04/19/18 23:24 04/19/18 23:24 04/19/18 23:24 04/19/18 23:24 Intake and Output: 04/20/18 04/20/18 06:59 18:59 Intake Total 980 Output Total 1500 Balance -520 - Medications Medications: Current Medications Acetylcysteine (Acetylcysteine 20%) 4 ml IH BIDRESP [facility] Last Admin: 04/20/18 07:55 Dose: Not Given Albuterol/Ipratropium (Duoneb 3 Mg/0.5 Mg (3 Ml) Ud) 3 ml IH Q2H PRN PRN Reason: Shortness of Breath Last Admin: 04/19/18 15:34 Dose: 3 ml Arformoterol Tartrate (Brovana) 15 mcg IH [id number] [facility] Last Admin: 04/20/18 07:55 Dose: Not Given Aspirin (Aspirin Chewable) 81 mg PO DAILY [facility] Last Admin: 04/19/18 09:02 Dose: 81 mg Atorvastatin Calcium (Lipitor) 40 mg PO DAILY [facility] Last Admin: 04/19/18 09:01 Dose: 40 mg Bacitracin (Bacitracin) 0 gm TOP BID [facility] Last Admin: 04/19/18 19:00 Dose: 1 applic Benzocaine/Menthol (Cepacol Sore Throat) 1 vy MT Q4H PRN PRN Reason: Sore Throat Budesonide (Pulmicort Respules) 0.5 mg IH [id number] [facility] Last Admin: 04/20/18 07:55 Dose: Not Given Dextrose (Dextrose 50% Inj) 0 ml IV STAT PRN; Protocol PRN Reason: Hypoglycemia Protocol Ergocalciferol (Drisdol 50,000 Intl Units Cap) 1 cap PO Q7D [facility] Last Admin: 04/18/18 17:45 Dose: 1 cap Ferrous Gluconate (Fergon) 324 mg PO TID [facility] Last Admin: 04/19/18 17:41 Dose: 324 mg Furosemide (Lasix) 40 mg IVP DAILY [facility] Last Admin: 04/19/18 09:03 Dose: 40 mg Dextrose (Dextrose 5% In Water 1000 Ml) 1,000 mls @ 0 mls/hr IV .Q0M PRN; Protocol PRN Reason: Hypoglycemia Protocol Insulin Detemir (Levemir) 10 unit SC HS [facility] Last Admin: 04/19/18 22:24 Dose: 10 applic Insulin Human Lispro (Humalog Low) 0 units SC ACHS [facility]; Protocol Last Admin: 04/19/18 22:24 Dose: 3 units Metoprolol Tartrate (Lopressor) 25 mg PO BID [facility] Last Admin: 04/19/18 17:41 Dose: 25 mg Nicotine (Nicoderm Cq) 1 patch TD DAILY [facility] Last Admin: 04/19/18 10:26 Dose: 1 patch Pantoprazole Sodium (Protonix Ec Tab) 40 mg PO ACB [facility] Last Admin: 04/19/18 08:57 Dose: 40 mg Paroxetine HCl (Paxil) 5 mg PO HS [facility] Last Admin: 04/19/18 22:25 Dose: 5 mg Prednisone (Prednisone Tab) 40 mg PO DAILY [facility] Last Admin: 04/19/18 09:01 Dose: 40 mg Vitamin B Complex/Vit C/Folic Acid (Nephro-Silvio) 1 tab PO 0800 [facility] Last Admin: 04/19/18 08:57 Dose: 1 tab - Labs Labs: 04/20/18 07:20 04/20/18 07:20 PT 11.9 SECONDS (9.4-12.5) 04/11/18 12:25 INR 1.05 04/11/18 12:25 APTT 25.3 Seconds (26.9-38.3) L 04/11/18 12:25 Attending/Attestation - Attestation I have personally seen and examined this patient.: Yes I have fully participated in the care of the patient.: Yes I have reviewed all pertinent clinical information, including history, physical exam and plan: Yes Notes (Text): Patient seen and examined by me with resident at 10:30AM on 04/19/18. Case including HPI, physical exam, and assessment and plan discussed with resident. Agree with above with following additions/corrections. Patient is a 57 year old female with past medical history significant for COPD, asthma, untreated breast cancer, anemia, depression and anxiety, and recurrent UTIs that presented to the emergency room for respiratory failure. Patient sleepy but easily arousable. Patient is refusing to answer any questions. Patient is tolerating her diet. Patient is afebrile. Physical exam: General: Sleepy but easily arousable sitting up in bed in no acute distress HEENT: Normocephalic, atraumatic. Extraocular muscles intact, pupils equal and reactive, no scleral icterus. Oropharynx is pink and moist. No pharyngeal erythema or exudate apreciated. Neck is supple. Cardiovascular: Regular rhythm. Normal S1 and S2. No murmurs, rubs, or gallops appreciated Pulmonary: Normal respiratory effort. Decreased breath sounds. No rhonchi, rales, or wheezing appreciated. Gastrointestinal: Soft, nondistended. Nontender. Positive bowel sounds all 4 quadrants. No guarding. Musculoskeletal: Moves all extremities. No calf tenderness. Trace bilateral lower extremity edema appreciated. Central nervous system: Awake and alert. CN 2-12 grossly intact. Dermatologic: Skin warm and dry. Positive excoriations with some scabs bilateral forearms and hands. Assessment and plan: Patient is a 57 year old female with past medical history significant for COPD, asthma, untreated breast cancer, anemia, anxiety, and recurrent UTIs that presented to the emergency room for respiratory failure. 1. Pleural effusion/Complete opacification of right hemithorax. Elevated ProBNP. ProBNP 7140, likely secondary to CKD. Pleural effusion likely secondary to pneumonia vs malignancy. Pulmonary following, recommendations appreciated. Minibus Driver following, recommendations appreciated. Continue IV Lasix. Chest xray showed complete opacification of right hemithorax. IR consulted. Patient refusing thoracentesis and Chest CT. Importance explained to patient in detail. Patient is still refusing. 2. Acute hypercapnic respiratory failure. S/P intubation and extubation. Traffic Signal Supervisor Maintenance following, recommendations appreciated. Continue O2 via nasal cannula as needed. Continue acetylcysteine BID. Continue nebulizer treatments. Continue Brovana and Pulmicort. Continue Prednisone. Patient refusing chest CT and thoracentesis. Continue IV Lasix. Patient refusing BiPAP. Chest xray 04/17/18 per radiologist showed almost complete opacification of right hemithorax with right-sided volume loss and shift of the heart mediastinum towards the right, patchy opacity at left base, possible pneumonia. IR consulted, follow-up recommendations. Chest CT 04/11/18 per radiologist showed decrease in right lobe consolidation and adjacent pleural effusion, some residual consolidation at right lung base posteriorly; chronic area of scarring or consolidation in posterior aspect of the right lung apex; calcification seen in left upper quadrant of left breast. 3. DAHLIA, likely ATN on Chronic Kidney disease. Electro Mechanical Engineer following, recommendations appreciated. BUN/Cr downtreding. Continue IV lasix. Continue ne hpro silvio. Continue to monitor. 4. Noncompliance by refusing service. Patient refusing thoracentesis and chest CT. Patient does not want treatment. Psychiatry reconsulted, pending recommendations. 5. Healthcare associated pneumonia. Chest x-ray as above. Patient refusing chest CT. ID following, recommendations appreciated. Patient is s/p treatment with cefepime. Leukocytosis resolved. Afebrile. Blood cultures with no growth. Procalcitonin 0.55. Influenza negative, Urine for legionella negative. Urine for strep pneumoniae negative. ID following, recommendations appreciated. 6. Anemia. Likely secondary to malignancy and chronic disease. S/P 2 units PRBCs. H&H stable. Continue ferrous sulfate. Continue to monitor CBC. 7. DM2 with hyperglycemia. Likely secondary to steroids. Continue insulin sliding scale. Continue Levemir at bedtime. Continue to monitor accuchecks. Hgb AIC was 8.8 on 04/03/18. 8. Essential hypertension. Continue Metoporolol and IV Lasix 9. Hyperlipidemia. Continue lipitor. 10. History of breast cancer. S/P 1 cycle of chemo, patient refused chemo and surgery post one cycle. Will need repeat Chest CT in one month per hem/onc. Hem/onc following, recommendations appreciated. 11. Tobacco abuse. Patient was counseled at length on tobacco cessation. Continue with nicotine patch. 12. Depression and Anxiety. Psychiatrist reconsulted, follow up recommendations. Continue Paxil 5 mg at bedtime. No benzodiazepines or narcotics to be given secondary to respiratory depression. 13. GI/DVT prophylaxis. Protonix/heparin 14. Patient is a full code. Palliative care recommendations appreciated. Patient refusing BECKY. Case was discussed in detail with the patient regarding current diagnosis and treatment plan. All questions answered.
--- NOTE | 2018-04-19 14:28 | CP.PCM.PN ---
<Rubio Piedra - Last Filed: 04/19/18 14:25> Subjective - Date & Time of Evaluation Date of Evaluation: 04/19/18 Time of Evaluation: 14:25 - Subjective Subjective: PGY-2 heme/onc progress note for Dr Gleason Patient with disorganized thoughts. Refused thoracentesis. Scratch moody on arms and legs. ROS not obtainable. Objective - Vital Signs/Intake and Output Vital Signs (last 24 hours): Temp Pulse Resp BP Pulse Ox 99 F 84 18 113/49 L 99 04/19/18 06:00 04/19/18 09:02 04/19/18 06:00 04/19/18 09:03 04/19/18 06:00 Intake and Output: 04/19/18 04/19/18 06:59 18:59 Intake Total 860 Output Total 900 Balance -40 - Medications Medications: Current Medications Acetylcysteine (Acetylcysteine 20%) 4 ml IH BIDRESP [facility] Last Admin: 04/19/18 08:02 Dose: 4 ml Albuterol/Ipratropium (Duoneb 3 Mg/0.5 Mg (3 Ml) Ud) 3 ml IH Q2H PRN PRN Reason: Shortness of Breath Last Admin: 04/18/18 03:30 Dose: 3 ml Arformoterol Tartrate (Brovana) 15 mcg IH [id number] [facility] Last Admin: 04/19/18 08:02 Dose: 15 mcg Aspirin (Aspirin Chewable) 81 mg PO DAILY [facility] Last Admin: 04/19/18 09:02 Dose: 81 mg Atorvastatin Calcium (Lipitor) 40 mg PO DAILY [facility] Last Admin: 04/19/18 09:01 Dose: 40 mg Bacitracin (Bacitracin) 0 gm TOP BID [facility] Last Admin: 04/19/18 11:27 Dose: 1 applic Benzocaine/Menthol (Cepacol Sore Throat) 1 vy MT Q4H PRN PRN Reason: Sore Throat Budesonide (Pulmicort Respules) 0.5 mg IH [id number] [facility] Last Admin: 04/19/18 08:03 Dose: 0.5 mg Dextrose (Dextrose 50% Inj) 0 ml IV STAT PRN; Protocol PRN Reason: Hypoglycemia Protocol Ergocalciferol (Drisdol 50,000 Intl Units Cap) 1 cap PO Q7D [facility] Last Admin: 04/18/18 17:45 Dose: 1 cap Ferrous Gluconate (Fergon) 324 mg PO TID [facility] Last Admin: 04/19/18 09:03 Dose: 324 mg Furosemide (Lasix) 40 mg IVP DAILY [facility] Last Admin: 04/19/18 09:03 Dose: 40 mg Heparin Sodium (Porcine) (Heparin) 5,000 units SC Q8H [facility]; Protocol Last Admin: 04/19/18 05:36 Dose: 5,000 units Dextrose (Dextrose 5% In Water 1000 Ml) 1,000 mls @ 0 mls/hr IV .Q0M PRN; Protocol PRN Reason: Hypoglycemia Protocol Insulin Detemir (Levemir) 10 unit SC HS [facility] Last Admin: 04/18/18 22:26 Dose: 10 applic Insulin Human Lispro (Humalog Low) 0 units SC ACHS [facility]; Protocol Last Admin: 04/19/18 11:57 Dose: 2 units Metoprolol Tartrate (Lopressor) 25 mg PO BID [facility] Last Admin: 04/19/18 09:02 Dose: 25 mg Nicotine (Nicoderm Cq) 1 patch TD DAILY [facility] Last Admin: 04/19/18 10:26 Dose: 1 patch Pantoprazole Sodium (Protonix Ec Tab) 40 mg PO ACB [facility] Last Admin: 04/19/18 08:57 Dose: 40 mg Paroxetine HCl (Paxil) 5 mg PO HS [facility] Last Admin: 04/18/18 21:08 Dose: 5 mg Prednisone (Prednisone Tab) 40 mg PO DAILY [facility] Last Admin: 04/19/18 09:01 Dose: 40 mg Vitamin B Complex/Vit C/Folic Acid (Nephro-Enrrique) 1 tab PO 0800 [facility] Last Admin: 04/19/18 08:57 Dose: 1 tab - Labs Labs: 04/19/18 06:30 04/19/18 06:30 PT 11.9 SECONDS (9.4-12.5) 04/11/18 12:25 INR 1.05 04/11/18 12:25 APTT 25.3 Seconds (26.9-38.3) L 04/11/18 12:25 - Additional Findings Additional findings: - Constitutional Appears: No Acute Distress, Older Than Stated Age - Head Exam Head Exam: ATRAUMATIC, NORMAL INSPECTION - Eye Exam Eye Exam: EOMI, Normal appearance, PERRL. absent: Scleral icterus - ENT Exam ENT Exam: Mucous Membranes Moist - Respiratory Exam Respiratory Exam: Decreased Breath Sounds, Rales Additional comments: rales R>L - Cardiovascular Exam Cardiovascular Exam: Tachycardia, REGULAR RHYTHM, +S1, +S2. absent: JVD - GI/Abdominal Exam GI & Abdominal Exam: Normal Bowel Sounds, Soft. absent: Tenderness - Extremities Exam Extremities exam: Positive for: normal capillary refill, normal inspection, pedal pulses present - Neurological Exam Neurological exam: Alert, Oriented x3 - Psychiatric Exam Psychiatric exam: Anxious - Skin Skin Exam: Normal Color, Warm Assessment and Plan - Assessment and Plan (Free Text) Plan: Mrs Granado is a 57 year old female with a PMHx history of breast cancer, severe COPD, anxiety, pneumonia, pleural effusions, CKD, xanax abuse, hx of non- compliance, hx of xanax/oxycodone overose, who presented to the ED in respiratory distress while on non-rebreather. Patient was then intubated while in ED due to lack of airway protection. Hematology/oncology has been consulted for anemia and her hx of left-sided breast cancer. Anemia -likely anemia of chronic disease 2/2 to ckd -Hgb on admission: 7.3 -> today 9.4 * chronically anemic since 02/2017 * transfused 2u pRBCs on 04/12/18 -recent admission 03/31/18 there were orders for iron studies, retic count, peripheral smear, B12, folate * retic count: 1.72, B12: 476, folate: 17, iron: 44, TIBC 213, %sat: 21, ferritin: 206, MCV: 96, LDH: 561 -has received erythropoetin in the past for anemia due to renal disease * CKD 3 and now with DAHLIA -recent admission 03/31/18 there were orders for epo level, immunofixation, spep, LDH * epo 22.8 (mildly high) * ABDIRIZAK and SPEP -> selective protein loss pattern, suggestive of nephrotic syndrome -1 dose of darbapoetin 40mcg sc on 04/06/18 - we will continue this once a week * darbopoetin 40mcg sc given on 04/13/18 -ferrous gluconate 324mg po qd now discontinued -recommend to continue darbapoetin injections outpatient, recommend 2 more injections over the next 2 weeks 7 days apart and then recommend to be re- evaluated by heme/onc physician Hx L breast cancer (Dx 2016) invasive ductal carcinoma -ER+/HER2+ -Got 1 cycle of sandee-adjuvant chemo. After that, refused chemo/surgery. -CT chest w/o contrast showed lymphadenopathy suspicious for tumor * etiology could be malignancy, infectious, inflammatory * patient was advised that this abnormal finding on CT needs to be followed up with an oncologist - this was reiterated to her multiple times on the previous admission and again on this current admission Dispo: patient accepted to [facility] Seen and discussed with Dr Gleason <Melanie Gleason P - Last Filed: 04/20/18 19:11> Objective - Vital Signs/Intake and Output Vital Signs (last 24 hours): Temp Pulse Resp BP Pulse Ox 98.9 F 90 20 148/59 L 96 04/20/18 14:00 04/20/18 17:22 04/20/18 14:00 04/20/18 17:22 04/20/18 14:00 - Medications Medications: Current Medications Albuterol Sulfate (Albuterol 0.083% Inhal Elvie (2.5 Mg/3 Ml) Ud) 2.5 mg INH [id number] [facility] Last Admin: 04/20/18 13:45 Dose: 2.5 mg Albuterol/Ipratropium (Duoneb 3 Mg/0.5 Mg (3 Ml) Ud) 3 ml IH Q2H PRN PRN Reason: Shortness of Breath Last Admin: 04/19/18 15:34 Dose: 3 ml Arformoterol Tartrate (Brovana) 15 mcg IH [id number] [facility] Last Admin: 04/20/18 07:55 Dose: Not Given Aspirin (Aspirin Chewable) 81 mg PO DAILY [facility] Last Admin: 04/20/18 09:08 Dose: 81 mg Atorvastatin Calcium (Lipitor) 40 mg PO DAILY [facility] Last Admin: 04/20/18 09:08 Dose: 40 mg Bacitracin (Bacitracin) 0 gm TOP BID [facility] Last Admin: 04/20/18 17:27 Dose: 1 applic Benzocaine/Menthol (Cepacol Sore Throat) 1 vy MT Q4H PRN PRN Reason: Sore Throat Last Admin: 04/20/18 13:05 Dose: 1 vy Budesonide (Pulmicort Respules) 0.5 mg IH [id number] [facility] Last Admin: 04/20/18 07:55 Dose: Not Given Dextrose (Dextrose 50% Inj) 0 ml IV STAT PRN; Protocol PRN Reason: Hypoglycemia Protocol Ergocalciferol (Drisdol 50,000 Intl Units Cap) 1 cap PO Q7D [facility] Last Admin: 04/18/18 17:45 Dose: 1 cap Ferrous Gluconate (Fergon) 324 mg PO DAILY [facility] Furosemide (Lasix) 40 mg IVP DAILY [facility] Last Admin: 04/20/18 09:13 Dose: 40 mg Heparin Sodium (Porcine) (Heparin) 5,000 units SC Q8 [facility]; Protocol Last Admin: 04/20/18 17:25 Dose: 5,000 units Dextrose (Dextrose 5% In Water 1000 Ml) 1,000 mls @ 0 mls/hr IV .Q0M PRN; Protocol PRN Reason: Hypoglycemia Protocol Insulin Detemir (Levemir) 10 unit SC [facility] Last Admin: 04/19/18 22:24 Dose: 10 applic Insulin Human Lispro (Humalog Low) 0 units SC ACHS [facility]; Protocol Last Admin: 04/20/18 17:22 Dose: 4 units Metoprolol Tartrate (Lopressor) 25 mg PO BID [facility] Last Admin: 04/20/18 17:22 Dose: 25 mg Nicotine (Nicoderm Cq) 1 patch TD DAILY [facility] Last Admin: 04/20/18 09:14 Dose: 1 patch Pantoprazole Sodium (Protonix Ec Tab) 40 mg PO ACB [facility] Last Admin: 04/20/18 09:09 Dose: 40 mg Paroxetine HCl (Paxil) 5 mg PO HS [facility] Last Admin: 04/19/18 22:25 Dose: 5 mg Prednisone (Prednisone Tab) 40 mg PO DAILY [facility] Last Admin: 04/20/18 09:09 Dose: 40 mg Vitamin B Complex/Vit C/Folic Acid (Nephro-Enrrique) 1 tab PO 0800 [facility] Last Admin: 04/20/18 09:08 Dose: 1 tab - Labs Labs: 04/20/18 07:20 04/20/18 07:20 PT 11.9 SECONDS (9.4-12.5) 04/11/18 12:25 INR 1.05 04/11/18 12:25 APTT 25.3 Seconds (26.9-38.3) L 04/11/18 12:25 Attending/Attestation - Attestation I have personally seen and examined this patient.: Yes I have fully participated in the care of the patient.: Yes I have reviewed all pertinent clinical information, including history, physical exam and plan: Yes
--- NOTE | 2018-04-19 14:56 | CP.PCM.PN ---
Subjective - Date & Time of Evaluation Date of Evaluation: 04/19/18 Time of Evaluation: 08:35 - Subjective Subjective: Patient is refusing thoracentesis, no fevers, at times with SOB at rest. Objective - Vital Signs/Intake and Output Vital Signs (last 24 hours): Temp Pulse Resp BP Pulse Ox 99 F 84 18 113/49 L 99 04/19/18 06:00 04/19/18 09:02 04/19/18 06:00 04/19/18 09:03 04/19/18 06:00 Intake and Output: 04/19/18 04/19/18 06:59 18:59 Intake Total 860 Output Total 900 Balance -40 - Medications Medications: Current Medications Acetylcysteine (Acetylcysteine 20%) 4 ml IH BIDRESP [facility] Last Admin: 04/19/18 08:02 Dose: 4 ml Albuterol/Ipratropium (Duoneb 3 Mg/0.5 Mg (3 Ml) Ud) 3 ml IH Q2H PRN PRN Reason: Shortness of Breath Last Admin: 04/18/18 03:30 Dose: 3 ml Arformoterol Tartrate (Brovana) 15 mcg IH [id number] [facility] Last Admin: 04/19/18 08:02 Dose: 15 mcg Aspirin (Aspirin Chewable) 81 mg PO DAILY [facility] Last Admin: 04/19/18 09:02 Dose: 81 mg Atorvastatin Calcium (Lipitor) 40 mg PO DAILY [facility] Last Admin: 04/19/18 09:01 Dose: 40 mg Bacitracin (Bacitracin) 0 gm TOP BID [facility] Last Admin: 04/19/18 11:27 Dose: 1 applic Benzocaine/Menthol (Cepacol Sore Throat) 1 vy MT Q4H PRN PRN Reason: Sore Throat Budesonide (Pulmicort Respules) 0.5 mg IH [id number] [facility] Last Admin: 04/19/18 08:03 Dose: 0.5 mg Dextrose (Dextrose 50% Inj) 0 ml IV STAT PRN; Protocol PRN Reason: Hypoglycemia Protocol Ergocalciferol (Drisdol 50,000 Intl Units Cap) 1 cap PO Q7D [facility] Last Admin: 04/18/18 17:45 Dose: 1 cap Ferrous Gluconate (Fergon) 324 mg PO TID [facility] Last Admin: 04/19/18 09:03 Dose: 324 mg Furosemide (Lasix) 40 mg IVP DAILY [facility] Last Admin: 04/19/18 09:03 Dose: 40 mg Dextrose (Dextrose 5% In Water 1000 Ml) 1,000 mls @ 0 mls/hr IV .Q0M PRN; Protocol PRN Reason: Hypoglycemia Protocol Insulin Detemir (Levemir) 10 unit SC HS [facility] Last Admin: 04/18/18 22:26 Dose: 10 applic Insulin Human Lispro (Humalog Low) 0 units SC ACHS [facility]; Protocol Last Admin: 04/19/18 11:57 Dose: 2 units Metoprolol Tartrate (Lopressor) 25 mg PO BID [facility] Last Admin: 04/19/18 09:02 Dose: 25 mg Nicotine (Nicoderm Cq) 1 patch TD DAILY [facility] Last Admin: 04/19/18 10:26 Dose: 1 patch Pantoprazole Sodium (Protonix Ec Tab) 40 mg PO ACB [facility] Last Admin: 04/19/18 08:57 Dose: 40 mg Paroxetine HCl (Paxil) 5 mg PO HS [facility] Last Admin: 04/18/18 21:08 Dose: 5 mg Prednisone (Prednisone Tab) 40 mg PO DAILY [facility] Last Admin: 04/19/18 09:01 Dose: 40 mg Vitamin B Complex/Vit C/Folic Acid (Nephro-Enrrique) 1 tab PO 0800 [facility] Last Admin: 04/19/18 08:57 Dose: 1 tab - Labs Labs: 04/19/18 06:30 04/19/18 06:30 PT 11.9 SECONDS (9.4-12.5) 04/11/18 12:25 INR 1.05 04/11/18 12:25 APTT 25.3 Seconds (26.9-38.3) L 04/11/18 12:25 - Constitutional Appears: Chronically Ill - Head Exam Head Exam: NORMAL INSPECTION - Respiratory Exam Respiratory Exam: Decreased Breath Sounds - Cardiovascular Exam Cardiovascular Exam: +S1, +S2 - GI/Abdominal Exam GI & Abdominal Exam: Soft. 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
[2018-04-19] MEDS: Albuterol-Ipratrop 3 mg / 0.5 (3 ml) UD IH PRN (15:34)
[2018-04-19] MEDS: Insulin Detemir 100 units/ml Vial (Levemir) SC SCH (22:24)
[2018-04-20 07:34] LABS: EOS % 0.2 % (1.5-5.0); HEMOGLOBIN 8.7 g/dL (12.0-16.0); LYMPH # 0.7 (1.2-3.4); LYMPH % 10.7 % (22.0-35.0); MEAN CELL VOLUME 94.4 fl (80.0-105.0); MEAN CORPUSCULAR HEMOGLOBIN 28.5 pg (25.0-35.0); MEAN CORPUSCULAR HGB CONC 30.2 g/dl (31.0-37.0); MEAN PLATELET VOLUME 11.2 fl (7.0-11.0); MONO # 0.3 (0.1-0.6); MONO % 4.2 % (1.0-6.0); RBC 3.05 10^6/uL (3.5-6.1); RED CELL DISTRIBUTION WIDTH 18.8 % (11.5-14.5); WHITE BLOOD COUNT 6.2 10^3/uL (4.5-11.0)
[2018-04-20 07:44] LABS: ALB/GLOB RATIO 1.2 (1.1-1.8); ALBUMIN 2.9 g/dL (3.0-4.8)
[2018-04-20] MEDS: Acetylcysteine 20% Inhal Soln (4ml) IH SCH (07:55)
[2018-04-20] MEDS: Budesonide 0.5 mg/2 ml Inhal Susp UD IH SCH ×2 (07:55→20:48)
[2018-04-20] MEDS: Arformoterol 15 mcg/2 ml Inh Sol IH SCH ×2 (07:55→20:48)
[2018-04-20] MEDS: Insulin Lispro (humaLOG) LOW Coverage SC SCH ×4 (08:37→21:50)
[2018-04-20] MEDS: Multivitamin Vitamin B Complex (Nephro-Vite) Tab PO SCH (09:08)
[2018-04-20] MEDS: Pantoprazole 40 mg EC Tab PO SCH (09:09)
--- NOTE | 2018-04-20 12:09 | PN ---
DATE: 04/20/2018 PULMONARY PROGRESS NOTE REFERRING PHYSICIAN: Darius Rdz MD SUBJECTIVE: The patient is lying in bed. No acute distress. No overnight events reported. The patient reports this morning "I want to get the fluid out." The patient reports having shortness of breath with exertion, does have occasional nonproductive cough. No headache,rhinitis, chest pain, abdominal pain, nausea, vomiting, diarrhea, leg pain or leg swelling reported. The patient had refused to have chest CT done yesterday, but agreed to have it done this morning. Presently at this time requesting to have thoracentesis done again after refusing earlier this week twice. OBJECTIVE: GENERAL: No acute distress. VITAL SIGNS: Blood pressure 126/51, pulse 77, temperature 97, and oxygen saturation 100%. HEENT: Moist mucous membranes. Crowded airway. NECK: Supple. No JVD. LUNGS: Scattered rhonchi; decreased breath sounds on the right. CARDIOVASCULAR: S1 and S2 audible. ABDOMEN: Soft and nontender. No distention. No organomegaly. EXTREMITIES: No bilateral lower extremity edema. NEUROLOGIC: Awake, alert and verbal. Follows commands. The patient is hard of hearing. MEDICATIONS: Reviewed. Mucomyst 4 mL inhalation twice a day, DuoNeb 3 mL inhalation every 2 hours p.r.n., Brovana 15 mcg every 12 hours, aspirin 81 mg daily, Lipitor 40 mg daily, bacitracin topically twice a day to affected area, Cepacol throat lozenges every 4 hours p.r.n, Pulmicort 0.5 mg every 12 hours, ergocalciferol 1 cap every 7 days, ferrous gluconate 324 mg three times a day, Lasix 40 mg IV push daily, Levemir 10 units subcutaneously at bedtime, Humalog sliding scale before meals and at bedtime, metoprolol tartrate 25 mg twice a day, nicotine patch transdermally daily, Protonix 40 mg in the morning, Paxil 5 mg at bedtime, prednisone 40 mg daily, and Nephro-Enrrique one tablet daily. LABORATORY DATA: Reviewed. WBC 6.2, RBC 3.05, hemoglobin 8.7, hematocrit 28.8, and platelets 91. Sodium 140, potassium 3.6, chloride 98, carbon dioxide 39, anion gap 6, BUN 72, creatinine 1.9, GFR 27, POC glucose 208, random glucose 278, calcium 7, total bilirubin 0.5, AST 18, ALT 64, alkaline phosphatase 77, total protein 5.5, albumin 2.9, globulin 2.5, and albumin-globulin ratio 1.2. Chest CT report pending. IMPRESSION AND PLAN: Respiratory failure, atelectasis, chronic obstructive lung disease, diabetes, pneumonia, history of breast cancer, recurrent urinary tract infection, obstructive sleep apnea syndrome, history of noncompliance of medications and treatment plan and followup. The patient refusing bilevel positive airway pressure or continuous positive airway pressure at this time, sleep apnea precautions, head of bed elevated at 45 degrees. Continue present steroid dosage, gastric prophylaxis, deep venous thrombosis prophylaxis and fall precautions. Continue pulmonary toileting, chest physiotherapy, and incentive spirometry use. We will re-consult Dr. Warren Olivera for thoracentesis as the patient is agree at this time to procedure. The patient is at high risk for respiratory failure, physical therapy, out of bed to chair is recommended. This patient was seen and examined with Dr. Rucker. Discussed the assessment and plan as described above. Thank you for this consult. We will follow with you. Didier Dennis APN Lisa Rucker MD
--- NOTE | 2018-04-20 12:38 | CT ---
Date of service: 04/20/2018 PROCEDURE: CT Chest without contrast HISTORY: Right-sided fluid COMPARISON: . Comparison made with CT chest 04/11/2018. TECHNIQUE: Contiguous axial images were obtained through the chest without intravenous contrast enhancement. Sagittal and coronal reconstructions were performed. Radiation dose: Total exam DLP = 509.34 mGy-cm. This CT exam was performed using one or more of the following dose reduction techniques: Automated exposure control, adjustment of the mA and/or kV according to patient size, and/or use of iterative reconstruction technique. FINDINGS: No change right IJ central line with tip in the SVC. LUNGS: Marked progression of atelectasis involving the entire right lung with a small right-sided effusion.. There is volume loss of the right hemithorax with shift of the mediastinum from right to left.. Rule out mucous plugging due to relatively rapid development of atelectatic changes. Few scattered patchy ground-glass opacities noted in the left lower lobe. There is a small left-sided effusion with mild left basilar atelectasis as well... MEDIASTINUM: Heart is enlarged. No significant pericardial effusion... Ascending thoracic aorta measures approximate 2.9 cm and descending thoracic aorta measures approximately 2.3 cm. Mild aortic atherosclerotic calcification. Pulmonary trunk measures approximately 3.2 cm. Rule out underlying pulmonary arterial hypertension. . Medium size hiatal hernia with wall thickening of the distal esophagus likely due to protrusion of gastric mucosa. Esophagitis not excluded. PLEURA: As above. No pneumothorax is identified BONES: Mild multilevel degenerative spondylosis of the thoracic spine again noted. Minor chronic anterior wedge deformity T9 segment unchanged. UPPER ABDOMEN: Grossly unremarkable. OTHER FINDINGS: None. IMPRESSION: There significant progression of atelectasis now involving the entire right lung with right-sided effusion that has increased as well. Rule out mucous plugging volume loss right hemithorax with shift of the mediastinum from left to right. Small left-sided effusion and mild left basilar atelectasis. Scattered patchy ground-glass opacity seen in the left lower lobe. Rule out underlying pulmonary arterial hypertension as described. Medium-sized hiatal hernia.
--- NOTE | 2018-04-20 12:43 | PN ---
DATE: 04/20/2018 LOCATION: Room 576, bed 2. REASON FOR CONSULTATION: Status post respiratory failure, anemia, status post intubation now status post extubation, history of tobacco abuse, renal insufficiency. SUBJECTIVE: The patient denies any chest pain. Her breathing is better. Denies any palpitation. The patient is lying comfortably in bed at this moment. The patient also received 2 blood transfusions in Intensive Care Unit for her anemia. PHYSICAL EXAMINATION VITAL SIGNS: Blood pressure is 126/51, respirations 20, pulse 77, temperature 97. HEENT: Head is normocephalic. Eyes, pupils normal. Conjunctivae slightly pale. NECK: JVP low. Carotid equal. THORAX: AP diameter normal. LUNGS: No significant rales. CARDIOVASCULAR: S1, S2. ABDOMEN: Soft, nontender. No organomegaly. Bowel sounds normal. EXTREMITIES: No clubbing. No cyanosis. LABORATORY DATA: WBC 6.2, hemoglobin 8.7, hematocrit 28.8, platelets 91. Sodium 140, potassium 3.6, BUN 72, creatinine 1.9. AST 18, ALT 64, total protein 5.4, albumin 2.9. The patient's chest x-ray on 04/17/2018, showed almost complete opacification of the right hemithorax with right-sided volume loss and shift of the heart and mediastinum towards the right side with patchy opacity at the left base with possible of pneumonia. DIAGNOSES: Exacerbation of chronic obstructive pulmonary disease, status post respiratory failure, status post intubation, status post extubation, opacification of the right hemithorax with right-sided volume loss, diabetes mellitus, renal failure, anemia, status post blood transfusions, atelectasis with pneumonia, renal dysfunction. PLAN: The patient is getting aspirin 81 daily. The patient is on IV fluid, ferrous sulfate 324 t.i.d., DuoNeb hand nebulizer therapy, Lasix 40 IV daily, prednisone 40 mg daily, metoprolol 25 b.i.d., atorvastatin 40 daily, insulin as ordered. We will continue present therapy. We will follow with you. Lisa Jones MD
[2018-04-20] MEDS: Benzocaine/Menthol (Cepacol) Lozenge MT PRN ×2 (13:05→21:49)
[2018-04-20] MEDS: Albuterol 0.083% Inhal Sol (2.5 mg/3 mL) UD INH SCH ×2 (13:45→20:48)
--- NOTE | 2018-04-20 14:24 | CP.PCM.PN ---
<Leonidas Guardado - Last Filed: 04/20/18 14:29> Subjective - Date & Time of Evaluation Date of Evaluation: 04/20/18 Time of Evaluation: 09:00 - Subjective Subjective: Infectious disease progress note: Pt seen and examined at bedside. No acute events overnight. Patient states that she is doing better with no wheezing or shortness of breath. No complaints. 12 Point ROS neg other than stated above Objective - Vital Signs/Intake and Output Vital Signs (last 24 hours): Temp Pulse Resp BP Pulse Ox 97 F L 77 20 126/51 L 100 04/20/18 06:00 04/20/18 09:10 04/20/18 06:00 04/20/18 09:13 04/20/18 06:00 Intake and Output: 04/20/18 04/20/18 06:59 18:59 Intake Total 980 Output Total 1500 Balance -520 - Medications Medications: Current Medications Albuterol Sulfate (Albuterol 0.083% Inhal Elvie (2.5 Mg/3 Ml) Ud) 2.5 mg INH [id number] [facility] Last Admin: 04/20/18 13:45 Dose: 2.5 mg Albuterol/Ipratropium (Duoneb 3 Mg/0.5 Mg (3 Ml) Ud) 3 ml IH Q2H PRN PRN Reason: Shortness of Breath Last Admin: 04/19/18 15:34 Dose: 3 ml Arformoterol Tartrate (Brovana) 15 mcg IH [id number] [facility] Last Admin: 04/20/18 07:55 Dose: Not Given Aspirin (Aspirin Chewable) 81 mg PO DAILY [facility] Last Admin: 04/20/18 09:08 Dose: 81 mg Atorvastatin Calcium (Lipitor) 40 mg PO DAILY [facility] Last Admin: 04/20/18 09:08 Dose: 40 mg Bacitracin (Bacitracin) 0 gm TOP BID [facility] Last Admin: 04/19/18 19:00 Dose: 1 applic Benzocaine/Menthol (Cepacol Sore Throat) 1 vy MT Q4H PRN PRN Reason: Sore Throat Last Admin: 04/20/18 13:05 Dose: 1 vy Budesonide (Pulmicort Respules) 0.5 mg IH [id number] [facility] Last Admin: 04/20/18 07:55 Dose: Not Given Dextrose (Dextrose 50% Inj) 0 ml IV STAT PRN; Protocol PRN Reason: Hypoglycemia Protocol Ergocalciferol (Drisdol 50,000 Intl Units Cap) 1 cap PO Q7D [facility] Last Admin: 04/18/18 17:45 Dose: 1 cap Ferrous Gluconate (Fergon) 324 mg PO DAILY [facility] Furosemide (Lasix) 40 mg IVP DAILY [facility] Last Admin: 04/20/18 09:13 Dose: 40 mg Dextrose (Dextrose 5% In Water 1000 Ml) 1,000 mls @ 0 mls/hr IV .Q0M PRN; Protocol PRN Reason: Hypoglycemia Protocol Insulin Detemir (Levemir) 10 unit SC HS [facility] Last Admin: 04/19/18 22:24 Dose: 10 applic Insulin Human Lispro (Humalog Low) 0 units SC ACHS [facility]; Protocol Last Admin: 04/20/18 12:05 Dose: 3 units Metoprolol Tartrate (Lopressor) 25 mg PO BID [facility] Last Admin: 04/20/18 09:10 Dose: 25 mg Nicotine (Nicoderm Cq) 1 patch TD DAILY [facility] Last Admin: 04/20/18 09:14 Dose: 1 patch Pantoprazole Sodium (Protonix Ec Tab) 40 mg PO ACB [facility] Last Admin: 04/20/18 09:09 Dose: 40 mg Paroxetine HCl (Paxil) 5 mg PO HS [facility] Last Admin: 04/19/18 22:25 Dose: 5 mg Prednisone (Prednisone Tab) 40 mg PO DAILY [facility] Last Admin: 04/20/18 09:09 Dose: 40 mg Vitamin B Complex/Vit C/Folic Acid (Nephro-Enrrique) 1 tab PO 0800 [facility] Last Admin: 04/20/18 09:08 Dose: 1 tab - Labs Labs: 04/20/18 07:20 04/20/18 07:20 PT 11.9 SECONDS (9.4-12.5) 04/11/18 12:25 INR 1.05 04/11/18 12:25 APTT 25.3 Seconds (26.9-38.3) L 04/11/18 12:25 - Constitutional Appears: No Acute Distress - Head Exam Head Exam: ATRAUMATIC, NORMOCEPHALIC - Eye Exam Eye Exam: EOMI - ENT Exam ENT Exam: Mucous Membranes Moist - Respiratory Exam Respiratory Exam: Clear to Ausculation Bilateral. absent: Wheezes - Cardiovascular Exam Cardiovascular Exam: REGULAR RHYTHM, +S1, +S2 - GI/Abdominal Exam GI & Abdominal Exam: Soft. absent: Tenderness - Extremities Exam Extremities Exam: absent: Calf Tenderness, Pedal Edema - Neurological Exam Neurological Exam: Alert, Awake, Oriented x3 - Psychiatric Exam Psychiatric exam: Normal Mood - Skin Skin Exam: Dry, Warm Assessment and Plan - Assessment and Plan (Free Text) Assessment: 57 F with a PMHx history of breast cancer, severe COPD, anxiety, pneumonia, pleural effusions, CKD, xanax abuse, hx of non-compliance, hx of xanax/oxycodone overdose, who presented respiratory failure 2/2 possible HAP s/p extubation. - completed course of antibiotics Vanc and Cefepime - will continue to monitor off antibiotics - Blood cx and UA neg - Cont to monitor Case and plan was reviewed and discussed in detail with Dr Damon <Chung Damon S - Last Filed: 04/20/18 16:34> Objective - Vital Signs/Intake and Output Vital Signs (last 24 hours): Temp Pulse Resp BP Pulse Ox 98.9 F 85 20 121/57 L 96 04/20/18 14:00 04/20/18 14:00 04/20/18 14:00 04/20/18 14:00 04/20/18 14:00 Intake and Output: 04/20/18 04/20/18 06:59 18:59 Intake Total 980 Output Total 1500 Balance -520 - Medications Medications: Current Medications Albuterol Sulfate (Albuterol 0.083% Inhal Elvie (2.5 Mg/3 Ml) Ud) 2.5 mg INH [id number] [facility] Last Admin: 04/20/18 13:45 Dose: 2.5 mg Albuterol/Ipratropium (Duoneb 3 Mg/0.5 Mg (3 Ml) Ud) 3 ml IH Q2H PRN PRN Reason: Shortness of Breath Last Admin: 04/19/18 15:34 Dose: 3 ml Arformoterol Tartrate (Brovana) 15 mcg IH [id number] [facility] Last Admin: 04/20/18 07:55 Dose: Not Given Aspirin (Aspirin Chewable) 81 mg PO DAILY [facility] Last Admin: 04/20/18 09:08 Dose: 81 mg Atorvastatin Calcium (Lipitor) 40 mg PO DAILY [facility] Last Admin: 04/20/18 09:08 Dose: 40 mg Bacitracin (Bacitracin) 0 gm TOP BID [facility] Last Admin: 04/19/18 19:00 Dose: 1 applic Benzocaine/Menthol (Cepacol Sore Throat) 1 vy MT Q4H PRN PRN Reason: Sore Throat Last Admin: 04/20/18 13:05 Dose: 1 vy Budesonide (Pulmicort Respules) 0.5 mg IH [id number] [facility] Last Admin: 04/20/18 07:55 Dose: Not Given Dextrose (Dextrose 50% Inj) 0 ml IV STAT PRN; Protocol PRN Reason: Hypoglycemia Protocol Ergocalciferol (Drisdol 50,000 Intl Units Cap) 1 cap PO Q7D [facility] Last Admin: 04/18/18 17:45 Dose: 1 cap Ferrous Gluconate (Fergon) 324 mg PO DAILY [facility] Furosemide (Lasix) 40 mg IVP DAILY [facility] Last Admin: 04/20/18 09:13 Dose: 40 mg Dextrose (Dextrose 5% In Water 1000 Ml) 1,000 mls @ 0 mls/hr IV .Q0M PRN; Protocol PRN Reason: Hypoglycemia Protocol Insulin Detemir (Levemir) 10 unit SC [facility] Last Admin: 04/19/18 22:24 Dose: 10 applic Insulin Human Lispro (Humalog Low) 0 units SC ACHS [facility]; Protocol Last Admin: 04/20/18 12:05 Dose: 3 units Metoprolol Tartrate (Lopressor) 25 mg PO BID [facility] Last Admin: 04/20/18 09:10 Dose: 25 mg Nicotine (Nicoderm Cq) 1 patch TD DAILY [facility] Last Admin: 04/20/18 09:14 Dose: 1 patch Pantoprazole Sodium (Protonix Ec Tab) 40 mg PO ACB [facility] Last Admin: 04/20/18 09:09 Dose: 40 mg Paroxetine HCl (Paxil) 5 mg PO HS [facility] Last Admin: 04/19/18 22:25 Dose: 5 mg Prednisone (Prednisone Tab) 40 mg PO DAILY [facility] Last Admin: 04/20/18 09:09 Dose: 40 mg Vitamin B Complex/Vit C/Folic Acid (Nephro-Enrrique) 1 tab PO 0800 [facility] Last Admin: 04/20/18 09:08 Dose: 1 tab - Labs Labs: 02/01/19 07:20 04/20/18 07:20 PT 11.9 SECONDS (9.4-12.5) 04/11/18 12:25 INR 1.05 04/11/18 12:25 APTT 25.3 Seconds (26.9-38.3) L 04/11/18 12:25 Assessment and Plan - Assessment and Plan (Free Text) Assessment: Infectious diseases Attending Physician Attestation Patient seen and examined, discussed with medical surgical tech. I have reviewed the patient's history of present illness, past medical, social, personal and family histories, pertinent physical exam findings, course so far in this hospital admission, pertinent laboratory and imaging results. I agree with the above findings, assessment and plan. In addition, patient is S/P treatment for HAP - continue to monitor clinically off antibiotics since she is at risk for nosocomial infections.
--- NOTE | 2018-04-20 15:12 | CP.PCM.PN ---
<Aj Mays - Last Filed: 04/20/18 15:37> Subjective - Date & Time of Evaluation Date of Evaluation: 04/20/18 Time of Evaluation: 06:20 - Subjective Subjective: Pt seen and examined this morning at bedside. Per Nursing, Pt received CT today, no acute events overnight. Objective - Vital Signs/Intake and Output Vital Signs (last 24 hours): Temp Pulse Resp BP Pulse Ox 97 F L 77 20 126/51 L 100 04/20/18 06:00 04/20/18 09:10 04/20/18 06:00 04/20/18 09:13 04/20/18 06:00 Intake and Output: 04/20/18 04/20/18 06:59 18:59 Intake Total 980 Output Total 1500 Balance -520 - Medications Medications: Current Medications Albuterol Sulfate (Albuterol 0.083% Inhal Elvie (2.5 Mg/3 Ml) Ud) 2.5 mg INH [id number] [facility] Last Admin: 04/20/18 13:45 Dose: 2.5 mg Albuterol/Ipratropium (Duoneb 3 Mg/0.5 Mg (3 Ml) Ud) 3 ml IH Q2H PRN PRN Reason: Shortness of Breath Last Admin: 04/19/18 15:34 Dose: 3 ml Arformoterol Tartrate (Brovana) 15 mcg IH [id number] [facility] Last Admin: 04/20/18 07:55 Dose: Not Given Aspirin (Aspirin Chewable) 81 mg PO DAILY [facility] Last Admin: 04/20/18 09:08 Dose: 81 mg Atorvastatin Calcium (Lipitor) 40 mg PO DAILY [facility] Last Admin: 04/20/18 09:08 Dose: 40 mg Bacitracin (Bacitracin) 0 gm TOP BID [facility] Last Admin: 04/19/18 19:00 Dose: 1 applic Benzocaine/Menthol (Cepacol Sore Throat) 1 vy MT Q4H PRN PRN Reason: Sore Throat Last Admin: 04/20/18 13:05 Dose: 1 vy Budesonide (Pulmicort Respules) 0.5 mg IH [id number] [facility] Last Admin: 04/20/18 07:55 Dose: Not Given Dextrose (Dextrose 50% Inj) 0 ml IV STAT PRN; Protocol PRN Reason: Hypoglycemia Protocol Ergocalciferol (Drisdol 50,000 Intl Units Cap) 1 cap PO Q7D [facility] Last Admin: 04/18/18 17:45 Dose: 1 cap Ferrous Gluconate (Fergon) 324 mg PO DAILY [facility] Furosemide (Lasix) 40 mg IVP DAILY [facility] Last Admin: 04/20/18 09:13 Dose: 40 mg Dextrose (Dextrose 5% In Water 1000 Ml) 1,000 mls @ 0 mls/hr IV .Q0M PRN; Protocol PRN Reason: Hypoglycemia Protocol Insulin Detemir (Levemir) 10 unit SC HS [facility] Last Admin: 04/19/18 22:24 Dose: 10 applic Insulin Human Lispro (Humalog Low) 0 units SC ACHS [facility]; Protocol Last Admin: 04/20/18 12:05 Dose: 3 units Metoprolol Tartrate (Lopressor) 25 mg PO BID [facility] Last Admin: 04/20/18 09:10 Dose: 25 mg Nicotine (Nicoderm Cq) 1 patch TD DAILY [facility] Last Admin: 04/20/18 09:14 Dose: 1 patch Pantoprazole Sodium (Protonix Ec Tab) 40 mg PO ACB [facility] Last Admin: 04/20/18 09:09 Dose: 40 mg Paroxetine HCl (Paxil) 5 mg PO HS [facility] Last Admin: 04/19/18 22:25 Dose: 5 mg Prednisone (Prednisone Tab) 40 mg PO DAILY [facility] Last Admin: 04/20/18 09:09 Dose: 40 mg Vitamin B Complex/Vit C/Folic Acid (Nephro-Silvio) 1 tab PO 0800 [facility] Last Admin: 04/20/18 09:08 Dose: 1 tab - Labs Labs: 04/20/18 07:20 04/20/18 07:20 PT 11.9 SECONDS (9.4-12.5) 04/11/18 12:25 INR 1.05 04/11/18 12:25 APTT 25.3 Seconds (26.9-38.3) L 04/11/18 12:25 - Constitutional Appears: No Acute Distress - Head Exam Head Exam: ATRAUMATIC, NORMOCEPHALIC - Eye Exam Eye Exam: EOMI - ENT Exam ENT Exam: Mucous Membranes Moist - Neck Exam Neck Exam: Full ROM - Respiratory Exam Respiratory Exam: Decreased Breath Sounds. absent: Accessory Muscle Use, Respiratory Distress - Cardiovascular Exam Cardiovascular Exam: RRR, +S1, +S2. absent: Diastolic murmur, Murmur - GI/Abdominal Exam GI & Abdominal Exam: Soft, Normal Bowel Sounds. absent: Tenderness - Extremities Exam Extremities Exam: Full ROM. absent: Pedal Edema, Tenderness - Neurological Exam Neurological Exam: Alert, Awake, Oriented x3 - Psychiatric Exam Psychiatric exam: Normal Affect, Normal Mood - Skin Skin Exam: Dry, Normal Color, Warm Assessment and Plan - Assessment and Plan (Free Text) Assessment: Pt is a 57 yo female with a PMH of Breast CA, asthma, COPD, anxiety, DM, and a right pleural effusion who presented with acute hypercapnic respiratory failure, subsequently extubated and transferred to medicine floors Plan: Acute Hypercapnic Respiratory Failure - Likely 2/2 tobacco use in the setting of her known asthma and COPD - duonebs, prednisone, pulmicort, brovana - CXR white out of right side - Chest CT 04/20/18: progression of atelectasis now invovling the entire right lung and right sided effusion. Rule out mucous plug - IR consulted for thoracentesis - Pulm, refused BIPAP, elevate HOB 45 degrees, cont pulm toileting, incentive spirometry - Cardio, David pt has refused thoracentesis in the past, following HCAP - Procal 0.55 - Strep pneumo not detected, legionella negative, MRSA negative, blood cultures NGTD - ID following, monitor off antibiotics, continue to monitor DAHLIA on CKD - Likely ATN in setting of diabetic and hypertensive chronic kidney disease - Nephrology, cont HTN control, continue with lasix - BUN 72 - Cr 1.9 Excoriations on BL UE - bacitracin ointment Anxiety - psyc advises not to continue taking benzos due to the fact that pt has overdosed multiple times - Paxil DM - levemir 10 HS - accuchecks - ISS HLD - lipitor 40mg HTN - metoprolol tartrate 25 BID Breast CA - Heme/ Onc, 1 dose of darbapoetin 40mcg sc on 04/13/18 - we will continue this once a week, pt advised to see an oncologist as an out pt for her breast CA, she has been advised this before on previous admissions - Palliative care, tried to discuss plan for discharge [facility] vs home. She did not answer my question nor did she want to engage in conversation. Her children were at beside. They stated they will do what ever their mother wants. Patient met with SW and refused [facility], stated she wants to go home Tobacco abuse - Counseled, pt amendable to cessation - nicotine patch Ppx - heparin - protonix Pt seen, examined, assessment and plan discussed with Dr Whit Mays PGY1, Internal Medicine Resident <Whit Rick R - Last Filed: 04/21/18 08:01> Objective - Vital Signs/Intake and Output Vital Signs (last 24 hours): Temp Pulse Resp BP Pulse Ox 98.1 F 93 H 18 147/54 L 96 04/20/18 21:37 04/20/18 21:37 04/20/18 21:37 04/20/18 21:37 04/20/18 21:37 Intake and Output: 04/21/18 04/21/18 06:59 18:59 Intake Total 1040 Output Total 900 Balance 140 - Medications Medications: Current Medications Albuterol Sulfate (Albuterol 0.083% Inhal Elvie (2.5 Mg/3 Ml) Ud) 2.5 mg INH [id number] [facility] Last Admin: 04/20/18 20:48 Dose: 2.5 mg Albuterol/Ipratropium (Duoneb 3 Mg/0.5 Mg (3 Ml) Ud) 3 ml IH Q2H PRN PRN Reason: Shortness of Breath Last Admin: 04/21/18 00:35 Dose: 3 ml Arformoterol Tartrate (Brovana) 15 mcg IH [id number] [facility] Last Admin: 04/20/18 20:48 Dose: 15 mcg Aspirin (Aspirin Chewable) 81 mg PO DAILY [facility] Last Admin: 04/20/18 09:08 Dose: 81 mg Atorvastatin Calcium (Lipitor) 40 mg PO DAILY [facility] Last Admin: 04/20/18 09:08 Dose: 40 mg Bacitracin (Bacitracin) 0 gm TOP BID [facility] Last Admin: 04/20/18 17:27 Dose: 1 applic Benzocaine/Menthol (Cepacol Sore Throat) 1 vy MT Q4H PRN PRN Reason: Sore Throat Last Admin: 04/20/18 21:49 Dose: 1 vy Budesonide (Pulmicort Respules) 0.5 mg IH [id number] [facility] Last Admin: 04/20/18 20:48 Dose: 0.5 mg Dextrose (Dextrose 50% Inj) 0 ml IV STAT PRN; Protocol PRN Reason: Hypoglycemia Protocol Ergocalciferol (Drisdol 50,000 Intl Units Cap) 1 cap PO Q7D [facility] Last Admin: 04/18/18 17:45 Dose: 1 cap Ferrous Gluconate (Fergon) 324 mg PO DAILY [facility] Furosemide (Lasix) 40 mg IVP DAILY [facility] Last Admin: 04/20/18 09:13 Dose: 40 mg Heparin Sodium (Porcine) (Heparin) 5,000 units SC Q8 [facility]; Protocol Last Admin: 04/21/18 05:26 Dose: 5,000 units Dextrose (Dextrose 5% In Water 1000 Ml) 1,000 mls @ 0 mls/hr IV .Q0M PRN; Protocol PRN Reason: Hypoglycemia Protocol Insulin Detemir (Levemir) 10 unit SC HS [facility] Last Admin: 04/20/18 21:50 Dose: 10 units Insulin Human Lispro (Humalog Low) 0 units SC ACHS [facility]; Protocol Last Admin: 04/20/18 21:50 Dose: 4 units Metoprolol Tartrate (Lopressor) 25 mg PO BID [facility] Last Admin: 04/20/18 17:22 Dose: 25 mg Nicotine (Nicoderm Cq) 1 patch TD DAILY [facility] Last Admin: 04/20/18 09:14 Dose: 1 patch Pantoprazole Sodium (Protonix Ec Tab) 40 mg PO ACB [facility] Last Admin: 04/20/18 09:09 Dose: 40 mg Paroxetine HCl (Paxil) 5 mg PO HS [facility] Last Admin: 04/20/18 21:48 Dose: 5 mg Prednisone (Prednisone Tab) 40 mg PO DAILY [facility] Last Admin: 04/20/18 09:09 Dose: 40 mg Vitamin B Complex/Vit C/Folic Acid (Nephro-Silvio) 1 tab PO 0800 [facility] Last Admin: 04/20/18 09:08 Dose: 1 tab - Labs Labs: 04/21/18 07:15 04/20/18 07:20 PT 11.9 SECONDS (9.4-12.5) 04/11/18 12:25 INR 1.05 04/11/18 12:25 APTT 25.3 Seconds (26.9-38.3) L 04/11/18 12:25 Attending/Attestation - Attestation I have personally seen and examined this patient.: Yes I have fully participated in the care of the patient.: Yes I have reviewed all pertinent clinical information, including history, physical exam and plan: Yes Notes (Text): Patient seen and examined by me with resident at 11:30AM on 04/20/18. Case including HPI, physical exam, and assessment and plan discussed with resident. Agree with above with following additions/corrections. Patient is a 57 year old female with past medical history significant for COPD, asthma, untreated breast cancer, anemia, depression and anxiety, and recurrent UTIs that presented to the emergency room for respiratory failure. Patient awake and talking today. States she has some shortness of breath and chest congestion. States she does not want to use the acetylcysteine nebulizer treatments anymore. Patient states that she is agreeable to having thoracentesis now. She denies any chest pain or palpitations. No nausea or vomiting. Complains of a little abdominal pain. No fevers or chills. No dysuria. Physical exam: General: Awake and alert sitting up in bed in no acute distress HEENT: Normocephalic, atraumatic. Extraocular muscles intact, pupils equal and reactive, no scleral icterus. Oropharynx is pink and moist. No pharyngeal erythema or exudate apreciated. Neck is supple. Cardiovascular: Regular rhythm. Normal S1 and S2. No murmurs, rubs, or gallops appreciated Pulmonary: Normal respiratory effort. Decreased breath sounds. No rhonchi, rales, or wheezing appreciated. Gastrointestinal: Soft, nondistended. Mild generalized tenderness with deep palpation. Positive bowel sounds all 4 quadrants. No guarding. Musculoskeletal: Moves all extremities. No calf tenderness. Trace bilateral lower extremity edema appreciated. Central nervous system: Awake and alert. CN 2-12 grossly intact. Dermatologic: Skin warm and dry. Positive excoriations with some scabs bilate ral forearms and hands. Assessment and plan: Patient is a 57 year old female with past medical history significant for COPD, asthma, untreated breast cancer, anemia, anxiety, and recurrent UTIs that presented to the emergency room for respiratory failure. 1. Pleural effusion/Complete opacification of right hemithorax. Elevated ProBNP. ProBNP 7140, likely secondary to CKD. Pleural effusion likely secondary to pneumonia vs malignancy. Pulmonary following, recommendations appreciated. Rope Laying Machine Operator following, recommendations appreciated. Continue IV Lasix. Chest xray showed complete opacification of right hemithorax. IR reconsulted for thoracentesis. CT chest per radiologist showed significant progression of atelectasis no involving the entire right lung with right-sided effusion has increased as well, rule out mucous plugging volume loss right hemithorax with shift of the mediastinum from [id number]; small left-sided effusion and mild left basilar atelectasis; scattered patchy groundglass opacity seen in the left lower lobe. 2. Acute hypercapnic respiratory failure. S/P intubation and extubation. Chest CT as above. Email Operations Manager following, recommendations appreciated. Continue O2 via nasal cannula as needed. Continue nebulizer treatments. Continue Brovana and Pulmicort. Continue Prednisone. Continue IV Lasix. Patient refusing BiPAP. Chest xray 04/17/18 per radiologist showed almost complete opacification of right hemithorax with right-sided volume loss and shift of the heart mediastinum towards the right, patchy opacity at left base, possible pneumonia. IR consulted, follow-up recommendations. Chest CT 04/11/18 per radiologist showed decrease in right lobe consolidation and adjacent pleural effusion, some residual consolidation at right lung base posteriorly; chronic area of scarring or consolidation in posterior aspect of the right lung apex; calcification seen in left upper quadrant of left breast. 3. DAHLIA, likely ATN on Chronic Kidney disease. President Sales And Marketing following, recommendations appreciated. BUN/Cr stable. Continue IV lasix. Continue nehpro silvio. Continue to monitor. 4. Noncompliance by refusing service. Patient now agreeing. Pyschiatrist following, recommendations appreciated. 5. Healthcare associated pneumonia. Chest CT 04/20/18 not showing infiltrate. ID following, recommendations appreciated. Patient is s/p treatment with cefepime. Leukocytosis resolved. Afebrile. Blood cultures with no growth. Procalcitonin 0.55. Influenza negative, Urine for legionella negative. Urine for strep pneumoniae negative. ID following, recommendations appreciated. 6. Anemia. Likely secondary to malignancy and chronic disease. S/P 2 units PRBCs. H&H stable. Continue ferrous sulfate. Continue to monitor CBC. 7. DM2 with hyperglycemia. Likely secondary to steroids. Continue insulin sliding scale. Continue Levemir at bedtime. Continue to monitor accuchecks. Hgb AIC was 8.8 on 1/15/19. 8. Essential hypertension. Continue Metoporolol and IV Lasix 9. Hyperlipidemia. Continue lipitor. 10. History of breast cancer. S/P 1 cycle of chemo, patient refused chemo and surgery post one cycle. Will need repeat Chest CT in one month per hem/onc. Hem/onc following, recommendations appreciated. 11. Tobacco abuse. Patient was counseled at length on tobacco cessation. Continue with nicotine patch. 12. Depression and Anxiety. Psychiatrist reconsulted, follow up recommendations. Continue Paxil 5 mg at bedtime. No benzodiazepines or narcotics to be given secondary to respiratory depression. 13. GI/DVT prophylaxis. Protonix/heparin 14. Patient is a full code. Palliative care recommendations appreciated. Case was discussed in detail with the patient regarding current diagnosis and treatment plan. All questions answered.
--- NOTE | 2018-04-20 15:27 | CP.PCM.PN ---
Subjective - Date & Time of Evaluation Date of Evaluation: 04/20/18 Time of Evaluation: 15:26 - Subjective Subjective: Nephrology Consultation Note: Assessment: stable DAHLIA likely ATN, non-oliguric: improving acute on chronc respi acidosis with respi failure with renal compensation rt pleural effusion with chest wall mass ? 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 overall poor pro gnosis, seen by palliative care Hypertension control with meds as ordered. Maintain hemodynamics stable. Avoid hypotension. Patient not on ACEI/ARB due to recent DAHLIA, hyperkalemic tendency Monitor Input/Output, daily weights and renal function with basic metabolic panel will defer use of ORVILLE to heme/onc in view of her recent breast malignancy with concerns for mets. PRBC as needed continue with iron 325 mg TID, MVI and weekly Vit D supplement lytes as needed seen by cardio heme/onc and pulmonary continue with lasix , can change to oral in view of rising serum bicarb IR eval for possible thoracocentesis which was refused by patient as per nursing staff Dose meds/antibiotics for reduced GFR. Avoid fleets enema/magnesium based laxatives. Avoid nephrotoxins/NSAIDs/ iodinated contrast (unless needed emergently) Glycemic control. pt need to stop smoking Further work up/management as per primary team Thanks for allowing me to participate in care of your patient. Will follow patient with you. Please call if any Qs. had d/w team Dr Marco Antonio Chatman Office: [phone] Chief Complaint; SOB Reason for consult: CKD 3, DAHLIA HPI: Pt is a 57 F with hx of diabetes Mellitus ( years), hypertension (years) COPD/asthma, active smoker, breast cancer s/p surgery 2 years ago but didn't complete treatment now with mets, anemia, CKD stage 3 with baseline cr 1.8 mg/dL and AKIs (peaked cr 4) admitted with acute respi distress hypercapnic respi failure and intubated/extubated, now seen for CKD management Denies OTC/herbal meds or NSAIDs No recent iodinated contrast exposure. No obvious episodes of low BP. pt was recently admitted for same and she signed out AMA. ROS: pt is a poor historian and overall hx is limited from her. SOB better. no chest pain Physical Examination: General Appearance: stable appearing. on o2 Vitals reviewed and noted as below Head; Atraumatic, normocephalic ENT: no ulcers no thrush. Tongue is midline. Oropharynx: no rash or ulcers. she is hard of hearing EYES: Pupils are equal, round and reactive to light accommodation. Eye muscles and extraocular movement intact. Sclera is anicteric. has some periorbital puffiness Neck; supple no lymphadenopathy, no thyromegaly or bruit Lungs: Improved respiratory rate/effort. Breath sounds reduced at rt side. Heart: normal rate. s1s2 normal. No rub or gallop. Extremities: no edema. No varicose veins Neurological: Patient is alert, awake and oriented to person, place and time. No focal deficit. Strength bilateral appropriate and equal Skin: Warm and dry. Normal turgor. No rash. Palpitation: Normal elasticity for age Abdomen: Abdomen is soft. Bowel sounds +. There is no abdominal tenderness, no guarding/rigidity no organomegaly Psych: lack insight and flat affect/mood MSK: no joint tenderness or swelling. Digits and nails normal, no deformity : kidney or bladder not palpable Labs/imaging reviewed. Past medical history, past surgical history, family history, social history, allergy reviewed and noted as below Family hx: no hx of CKD. Rest non-contributory renal imaging: b/l cysts echo normal LVEF TSAt 26% ferritin 45 Serum FLC assay WNL ABDIRIZAK neg PTH 154 Vit D 17 Objective - Vital Signs/Intake and Output Vital Signs (last 24 hours): Temp Pulse Resp BP Pulse Ox 98.9 F 85 20 121/57 L 96 04/20/18 14:00 04/20/18 14:00 04/20/18 14:00 04/20/18 14:00 04/20/18 14:00 Intake and Output: 04/20/18 04/20/18 06:59 18:59 Intake Total 980 Output Total 1500 Balance -520 - Medications Medications: Current Medications Albuterol Sulfate (Albuterol 0.083% Inhal Elvie (2.5 Mg/3 Ml) Ud) 2.5 mg INH [id number] [facility] [place] Last Admin: 04/20/18 13:45 Dose: 2.5 mg Albuterol/Ipratropium (Duoneb 3 Mg/0.5 Mg (3 Ml) Ud) 3 ml IH Q2H PRN PRN Reason: Shortness of Breath Last Admin: 04/19/18 15:34 Dose: 3 ml Arformoterol Tartrate (Brovana) 15 mcg IH [id number] [facility] [place] Last Admin: 04/20/18 07:55 Dose: Not Given Aspirin (Aspirin Chewable) 81 mg PO DAILY [facility] [place] Last Admin: 04/20/18 09:08 Dose: 81 mg Atorvastatin Calcium (Lipitor) 40 mg PO DAILY [facility] [place] Last Admin: 04/20/18 09:08 Dose: 40 mg Bacitracin (Bacitracin) 0 gm TOP BID [facility] [place] Last Admin: 04/19/18 19:00 Dose: 1 applic Benzocaine/Menthol (Cepacol Sore Throat) 1 vy MT Q4H PRN PRN Reason: Sore Throat Last Admin: 04/20/18 13:05 Dose: 1 vy Budesonide (Pulmicort Respules) 0.5 mg IH [id number] [facility] [place] Last Admin: 04/20/18 07:55 Dose: Not Given Dextrose (Dextrose 50% Inj) 0 ml IV STAT PRN; Protocol PRN Reason: Hypoglycemia Protocol Ergocalciferol (Drisdol 50,000 Intl Units Cap) 1 cap PO Q7D [facility] [place] Last Admin: 04/18/18 17:45 Dose: 1 cap Ferrous Gluconate (Fergon) 324 mg PO DAILY [facility] [place] Furosemide (Lasix) 40 mg IVP DAILY [facility] [place] Last Admin: 04/20/18 09:13 Dose: 40 mg Dextrose (Dextrose 5% In Water 1000 Ml) 1,000 mls @ 0 mls/hr IV .Q0M PRN; P rotocol PRN Reason: Hypoglycemia Protocol Insulin Detemir (Levemir) 10 unit SC HS [facility] [place] Last Admin: 04/19/18 22:24 Dose: 10 applic Insulin Human Lispro (Humalog Low) 0 units SC ACHS [facility] [place]; Protocol Last Admin: 04/20/18 12:05 Dose: 3 units Metoprolol Tartrate (Lopressor) 25 mg PO BID [facility] [place] Last Admin: 04/20/18 09:10 Dose: 25 mg Nicotine (Nicoderm Cq) 1 patch TD DAILY [facility] [place] Last Admin: 04/20/18 09:14 Dose: 1 patch Pantoprazole Sodium (Protonix Ec Tab) 40 mg PO ACB [facility] [place] Last Admin: 04/20/18 09:09 Dose: 40 mg Paroxetine HCl (Paxil) 5 mg PO HS [facility] [place] Last Admin: 04/19/18 22:25 Dose: 5 mg Prednisone (Prednisone Tab) 40 mg PO DAILY [facility] [place] Last Admin: 04/20/18 09:09 Dose: 40 mg Vitamin B Complex/Vit C/Folic Acid (Nephro-Enrrique) 1 tab PO 0800 [facility] [place] Last Admin: 04/20/18 09:08 Dose: 1 tab - Labs Labs: 04/20/18 07:20 04/20/18 07:20 PT 11.9 SECONDS (9.4-12.5) 04/11/18 12:25 INR 1.05 04/11/18 12:25 APTT 25.3 Seconds (26.9-38.3) L 04/11/18 12:25
[2018-04-20] MEDS: Bacitracin Ointment 30 GM TUBE TOP SCH (17:27)
--- NOTE | 2018-04-20 18:17 | PN ---
DATE: 04/20/2018 This is [facility] visit on the medical floor. For Dr. Gleason. SUBJECTIVE: The patient is a 57-year-old female with hearing compromised, seen sitting up in bed, recently readmitted to from breast cancer, severe COPD with the patient treated for respiratory distress, the patient aggressively signed against medical advice at one time. At present, she is in no acute distress, resting comfortably with a CT scan of the chest done to be reviewed. OBJECTIVE/PHYSICAL EXAMINATION VITAL SIGNS: Temperature 97, pulse 77, respirations 20, blood pressure 126/51, and pulse ox 100%. HEENT: Unremarkable with poor hearing. NECK: Supple. HEART: Regular rate. LUNGS: Decreased breath sounds in the right, occasional rhonchi. ABDOMEN: Obese, soft, nontender. EXTREMITIES: No edema. SKIN: Warm and dry. NEUROLOGIC: Awake and alert. LABORATORY DATA: The patient's labs were done. White blood cell count of 6.2, hemoglobin 8.7, hematocrit 28.8, platelet count of 91,000 with a metabolic panel showing a BUN of 72, creatinine of 1.9, non-fasting glucose of 244, ALT of 64. The patient did have a CT scan of the chest done earlier today, it was read as significant progression of atelectasis now involving the entire right lung with right-sided effusion that has increased as well, rule out mucus plugging, volume loss right hemithorax with shift of the mediastinum from left to right, small left-sided effusion and mild left basilar atelectasis, scattered patchy ground-glass opacity seen left lower lobe, rule out underlying pulmonary arterial hypertension, medium-sized hiatal hernia. ASSESSMENT: The assessment for this patient is that of respiratory failure, chronic obstructive pulmonary disease, diabetes, history of pneumonia, history of breast cancer, recurrent urinary tract infections, anemia of chronic disease, sleep apnea, hearing loss/deafness, status post severe sepsis, acute kidney disease, noncompliance. It should be noted that the patient was transfused 2 units of packed red blood cells approximately 10 days prior with IV iron given recently. PLAN: The plan for this patient is to continue present medical regimen with further recommendations as per pulmonary consultants and renal consultants with the patient continuing to refuse thoracentesis. This is a complex patient with a comprehensive medically necessary and appropriate visit carried out in excess of 20 minutes. Prognosis for this patient is guarded. Juan Jose Valles MD
--- NOTE | 2018-04-20 19:50 | PN ---
DATE: 04/20/2018 SUBJECTIVE: The patient was followed up today. Notes reviewed. Discussed with attending Dr. Rick. The patient was seen today. The patient presented to be calm, cooperative. The patient is very hard of hearing. The patient was able to participate in interview. The patient reported that overall she feels better. The patient denied any thoughts of harming herself or others. Reported that her sleep is improving. The patient denied hearing voices, denied seeing things.. The patient initially was refusing to have thoracocentesis and medical team asked this data analyst report writer to evaluate the patient for capacity to refuse that procedure. Later on, the patient was seen by medical team and the patient agreed to have thoracentesis today. Going back to the patient's presentation, vital signs are stable. Temperature 98.9, blood pressure 121/57, pulse is 96, respiration 20. Medications reviewed. The patient is on Brovana, aspirin, Lipitor, bacitracin, Cepacol, Pulmicort, dextrose. The patient also is on Seroquel on Lasix, Levemir, Humalog, Lopressor, Nicoderm, Protonix, Paxil 5 mg at the nighttime was started. The patient tolerated that medication well. The patient is on prednisone and vitamin B complex. Labs reviewed. Most recent was from today. Hemoglobin and hematocrit 8.7 and 28.8. Coagulation reviewed. Chemistry reviewed. Serology reviewed. MENTAL STATUS EXAM: The patient appears to be calm, cooperative, intermittent eye contact. Mood described as fine. Affect was constricted. Thought process very concrete. Thought content, the patient denied any psychotic symptoms. The patient denied thoughts of harming herself or others. Denied intent or plan. Insight and judgment seems to be improving. Impulses are better controlled. IMPRESSION: Rule out mood disorder and anxiety disorder due to general medical condition, rule out abuse and misuse benzodiazepines and pain killers. PLAN: Continue current management. Continue current medication. There is no need to increase Paxil at the nighttime because this data analyst report writer has impression after medical conditions will be improving. The patient will be improving from the mental standpoint. Meanwhile, there is no agitation or aggression. Dr. Schulte will follow up on this patient over the weekend. No acute issues. The patient can be followed up on 04/22/2018 and advise accordingly. Please reconsult as needed. Thank you very much for letting me participate in care of your patient. Beba Ernst MD
[2018-04-20] MEDS: Insulin Detemir 100 units/ml Vial (Levemir) SC SCH (21:50)
[2018-04-21] MEDS: Albuterol-Ipratrop 3 mg / 0.5 (3 ml) UD IH PRN ×2 (00:35→17:35)
[2018-04-21 07:47] LABS: EOS % 0.4 % (1.5-5.0); HEMOGLOBIN 8.6 g/dL (12.0-16.0); LYMPH # 0.7 (1.2-3.4); LYMPH % 14.3 % (22.0-35.0); MEAN CORPUSCULAR HEMOGLOBIN 28.7 pg (25.0-35.0); MEAN CORPUSCULAR HGB CONC 30.2 g/dl (31.0-37.0); MEAN PLATELET VOLUME 11.2 fl (7.0-11.0); MONO # 0.3 (0.1-0.6); MONO % 4.8 % (1.0-6.0); RED CELL DISTRIBUTION WIDTH 19.2 % (11.5-14.5); WHITE BLOOD COUNT 5.2 10^3/uL (4.5-11.0)
[2018-04-21 08:16] LABS: ALB/GLOB RATIO 1.2 (1.1-1.8); ALBUMIN 2.9 g/dL (3.0-4.8)
[2018-04-21] MEDS: Insulin Lispro (humaLOG) LOW Coverage SC SCH ×4 (08:22→22:23)
[2018-04-21] MEDS: Arformoterol 15 mcg/2 ml Inh Sol IH SCH ×2 (09:08→19:45)
[2018-04-21] MEDS: Budesonide 0.5 mg/2 ml Inhal Susp UD IH SCH ×2 (09:09→19:45)
[2018-04-21] MEDS: Albuterol 0.083% Inhal Sol (2.5 mg/3 mL) UD INH SCH ×3 (09:10→19:45)
[2018-04-21] MEDS ORDERED: Potassium Chloride 20 mEq/15 ml LIQ UD PO STA (09:51)
[2018-04-21] MEDS: Pantoprazole 40 mg EC Tab PO SCH (09:53)
[2018-04-21] MEDS: Multivitamin Vitamin B Complex (Nephro-Vite) Tab PO SCH (09:53)
--- NOTE | 2018-04-21 11:55 | CP.PCM.PN ---
Subjective - Date & Time of Evaluation Date of Evaluation: 04/21/18 Time of Evaluation: 11:55 - Subjective Subjective: Nephrology Consultation Note: Assessment: stable DAHLIA likely ATN, non-oliguric: improving acute on chronc respi acidosis with respi failure with renal compensation rt pleural effusion with chest wall mass ? 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 overall poor pro gnosis, seen by palliative care Hypertension control with meds as ordered. Maintain hemodynamics stable. Avoid hypotension. Patient not on ACEI/ARB due to recent DAHLIA, hyperkalemic tendency Monitor Input/Output, daily weights and renal function with basic metabolic panel will defer use of ORVILLE to heme/onc in view of her recent breast malignancy with concerns for mets. PRBC as needed continue with iron 325 mg TID, MVI and weekly Vit D supplement lytes as needed seen by cardio heme/onc and pulmonary continue with lasix , can change to oral in view of rising serum bicarb, now on 20 mg/d orally IR eval for possible thoracocentesis which was refused by patient as per nursing staff. Dose meds/antibiotics for reduced GFR. Avoid fleets enema/magnesium based laxatives. Avoid nephrotoxins/NSAIDs/ iodinated contrast (unless needed emergently) Glycemic control. pt need to stop smoking Further work up/management as per primary team Thanks for allowing me to participate in care of your patient. Will follow patient with you. Please call if any Qs. had d/w team Dr Marco Antonio Chatman Office: [phone] Chief Complaint; SOB Reason for consult: CKD 3, DALHIA HPI: Pt is a 57 F with hx of diabetes Mellitus ( years), hypertension (years) COPD/asthma, active smoker, breast cancer s/p surgery 2 years ago but didn't complete treatment now with mets, anemia, CKD stage 3 with baseline cr 1.8 mg/dL and AKIs (peaked cr 4) admitted with acute respi distress hypercapnic respi failure and intubated/extubated, now seen for CKD management Denies OTC/herbal meds or NSAIDs No recent iodinated contrast exposure. No obvious episodes of low BP. pt was recently admitted for same and she signed out AMA. ROS: pt is a poor historian and overall hx is limited from her. SOB better. no chest pain Physical Examination: General Appearance: stable appearing. on o2 Vitals reviewed and noted as below Head; Atraumatic, normocephalic ENT: no ulcers no thrush. Tongue is midline. Oropharynx: no rash or ulcers. she is hard of hearing EYES: Pupils are equal, round and reactive to light accommodation. Eye muscles and extraocular movement intact. Sclera is anicteric. has some periorbital puffiness Neck; supple no lymphadenopathy, no thyromegaly or bruit Lungs: Improved respiratory rate/effort. Breath sounds reduced at rt side. Heart: normal rate. s1s2 normal. No rub or gallop. Extremities: no edema. No varicose veins Neurological: Patient is alert, awake and oriented to person, place and time. No focal deficit. Strength bilateral appropriate and equal Skin: Warm and dry. Normal turgor. No rash. Palpitation: Normal elasticity for age Abdomen: Abdomen is soft. Bowel sounds +. There is no abdominal tenderness, no guarding/rigidity no organomegaly Psych: lack insight and flat affect/mood MSK: no joint tenderness or swelling. Digits and nails normal, no deformity : kidney or bladder not palpable Labs/imaging reviewed. Past medical history, past surgical history, family history, social history, allergy reviewed and noted as below Family hx: no hx of CKD. Rest non-contributory renal imaging: b/l cysts echo normal LVEF TSAt 26% ferritin 45 Serum FLC assay WNL ABDIRIZAK neg PTH 154 Vit D 17 Objective - Vital Signs/Intake and Output Vital Signs (last 24 hours): Temp Pulse Resp BP Pulse Ox 98.2 F 86 18 137/57 L 99 04/21/18 06:00 04/21/18 09:53 04/21/18 06:00 04/21/18 10:05 04/21/18 06:00 Intake and Output: 04/21/18 04/21/18 06:59 18:59 Intake Total 1040 Output Total 900 Balance 140 - Medications Medications: Current Medications Albuterol Sulfate (Albuterol 0.083% Inhal Elvie (2.5 Mg/3 Ml) Ud) 2.5 mg INH [id number] [facility] Last Admin: 04/21/18 09:10 Dose: 2.5 mg Albuterol/Ipratropium (Duoneb 3 Mg/0.5 Mg (3 Ml) Ud) 3 ml IH Q2H PRN PRN Reason: Shortness of Breath Last Admin: 04/21/18 00:35 Dose: 3 ml Arformoterol Tartrate (Brovana) 15 mcg IH [id number] [facility] Last Admin: 04/21/18 09:08 Dose: 15 mcg Aspirin (Aspirin Chewable) 81 mg PO DAILY [facility] Last Admin: 04/21/18 09:53 Dose: 81 mg Atorvastatin Calcium (Lipitor) 40 mg PO DAILY [facility] Last Admin: 04/21/18 09:53 Dose: 40 mg Bacitracin (Bacitracin) 0 gm TOP BID [facility] Last Admin: 04/20/18 17:27 Dose: 1 applic Benzocaine/Menthol (Cepacol Sore Throat) 1 vy MT Q4H PRN PRN Reason: Sore Throat Last Admin: 04/20/18 21:49 Dose: 1 vy Budesonide (Pulmicort Respules) 0.5 mg IH [id number] [facility] Last Admin: 04/21/18 09:09 Dose: 0.5 mg Dextrose (Dextrose 50% Inj) 0 ml IV STAT PRN; Protocol PRN Reason: Hypoglycemia Protocol Ergocalciferol (Drisdol 50,000 Intl Units Cap) 1 cap PO Q7D [facility] Last Admin: 04/18/18 17:45 Dose: 1 cap Ferrous Gluconate (Fergon) 324 mg PO DAILY [facility] Last Admin: 04/21/18 09:53 Dose: 324 mg Furosemide (Lasix) 20 mg PO DAILY [facility] Stop: 04/26/18 10:01 Last Admin: 04/21/18 10:05 Dose: 20 mg Heparin Sodium (Porcine) (Heparin) 5,000 units SC Q8 [facility]; Protocol Last Admin: 04/21/18 05:26 Dose: 5,000 units Dextrose (Dextrose 5% In Water 1000 Ml) 1,000 mls @ 0 mls/hr IV .Q0M PRN; Prot ocol PRN Reason: Hypoglycemia Protocol Insulin Detemir (Levemir) 10 unit SC HS [facility] Last Admin: 04/20/18 21:50 Dose: 10 units Insulin Human Lispro (Humalog Low) 0 units SC ACHS [facility]; Protocol Last Admin: 04/21/18 08:22 Dose: 3 units Insulin Human Lispro (Humalog) 4 units SC AC [facility] Metoprolol Tartrate (Lopressor) 25 mg PO BID [facility] Last Admin: 04/21/18 09:53 Dose: 25 mg Nicotine (Nicoderm Cq) 1 patch TD DAILY [facility] Last Admin: 04/21/18 09:52 Dose: 1 patch Pantoprazole Sodium (Protonix Ec Tab) 40 mg PO ACB [facility] Last Admin: 04/21/18 09:53 Dose: 40 mg Paroxetine HCl (Paxil) 5 mg PO HS [facility] Last Admin: 04/20/18 21:48 Dose: 5 mg Prednisone (Prednisone Tab) 40 mg PO DAILY [facility] Last Admin: 04/21/18 09:53 Dose: 40 mg Vitamin B Complex/Vit C/Folic Acid (Nephro-Enrrique) 1 tab PO 0800 [facility] Last Admin: 04/21/18 09:53 Dose: 1 tab - Labs Labs: 04/21/18 07:15 04/21/18 07:15 PT 11.9 SECONDS (9.4-12.5) 04/11/18 12:25 INR 1.05 04/11/18 12:25 APTT 25.3 Seconds (26.9-38.3) L 04/11/18 12:25
[2018-04-21] MEDS: Insulin Lispro 1 UNITS/0.01 ML SC SCH ×2 (12:05→16:34)
--- NOTE | 2018-04-21 13:05 | CP.PCM.PN ---
<DavonAj Bhaskar - Last Filed: 04/21/18 15:41> Subjective - Date & Time of Evaluation Date of Evaluation: 04/21/18 Time of Evaluation: 07:30 - Subjective Subjective: Pt seen and examined. Per nursing, pt refusing BECKY, pt states she wants to go home, pt refusing OOB to chair, pt has purewick and is still incontinent at times. Objective - Vital Signs/Intake and Output Vital Signs (last 24 hours): Temp Pulse Resp BP Pulse Ox 98.2 F 86 18 137/57 L 99 04/21/18 06:00 04/21/18 09:53 04/21/18 06:00 04/21/18 10:05 04/21/18 06:00 Intake and Output: 04/21/18 04/21/18 06:59 18:59 Intake Total 1040 Output Total 900 Balance 140 - Medications Medications: Current Medications Albuterol Sulfate (Albuterol 0.083% Inhal Elvie (2.5 Mg/3 Ml) Ud) 2.5 mg INH Q6 HRESP [facility] Last Admin: 04/21/18 09:10 Dose: 2.5 mg Albuterol/Ipratropium (Duoneb 3 Mg/0.5 Mg (3 Ml) Ud) 3 ml IH Q2H PRN PRN Reason: Shortness of Breath Last Admin: 04/21/18 00:35 Dose: 3 ml Arformoterol Tartrate (Brovana) 15 mcg IH [id number] [facility] Last Admin: 04/21/18 09:08 Dose: 15 mcg Aspirin (Aspirin Chewable) 81 mg PO DAILY [facility] Last Admin: 04/21/18 09:53 Dose: 81 mg Atorvastatin Calcium (Lipitor) 40 mg PO DAILY [facility] Last Admin: 04/21/18 09:53 Dose: 40 mg Bacitracin (Bacitracin) 0 gm TOP BID [facility] Last Admin: 04/20/18 17:27 Dose: 1 applic Benzocaine/Menthol (Cepacol Sore Throat) 1 vy MT Q4H PRN PRN Reason: Sore Throat Last Admin: 04/20/18 21:49 Dose: 1 vy Budesonide (Pulmicort Respules) 0.5 mg IH [id number] [facility] Last Admin: 04/21/18 09:09 Dose: 0.5 mg Dextrose (Dextrose 50% Inj) 0 ml IV STAT PRN; Protocol PRN Reason: Hypoglycemia Protocol Ergocalciferol (Drisdol 50,000 Intl Units Cap) 1 cap PO Q7D [facility] Last Admin: 04/18/18 17:45 Dose: 1 cap Ferrous Gluconate (Fergon) 324 mg PO DAILY [facility] Last Admin: 04/21/18 09:53 Dose: 324 mg Heparin Sodium (Porcine) (Heparin) 5,000 units SC Q8 [facility]; Protocol Last Admin: 04/21/18 05:26 Dose: 5,000 units Dextrose (Dextrose 5% In Water 1000 Ml) 1,000 mls @ 0 mls/hr IV .Q0M PRN; Protocol PRN Reason: Hypoglycemia Protocol Insulin Detemir (Levemir) 10 unit SC HS [facility] Last Admin: 04/20/18 21:50 Dose: 10 units Insulin Human Lispro (Humalog Low) 0 units SC ACHS [facility]; Protocol Last Admin: 04/21/18 12:05 Dose: 4 units Insulin Human Lispro (Humalog) 4 units SC AC [facility] Last Admin: 04/21/18 12:05 Dose: 4 unit Metoprolol Tartrate (Lopressor) 25 mg PO BID [facility] Last Admin: 04/21/18 09:53 Dose: 25 mg Nicotine (Nicoderm Cq) 1 patch TD DAILY [facility] Last Admin: 04/21/18 09:52 Dose: 1 patch Pantoprazole Sodium (Protonix Ec Tab) 40 mg PO ACB [facility] Last Admin: 04/21/18 09:53 Dose: 40 mg Paroxetine HCl (Paxil) 5 mg PO HS [facility] Last Admin: 04/20/18 21:48 Dose: 5 mg Prednisone (Prednisone Tab) 40 mg PO DAILY [facility] Last Admin: 04/21/18 09:53 Dose: 40 mg Vitamin B Complex/Vit C/Folic Acid (Nephro-Enrrique) 1 tab PO 0800 [facility] Last Admin: 04/21/18 09:53 Dose: 1 tab - Labs Labs: 04/21/18 07:15 04/21/18 07:15 PT 11.9 SECONDS (9.4-12.5) 04/11/18 12:25 INR 1.05 04/11/18 12:25 APTT 25.3 Seconds (26.9-38.3) L 04/11/18 12:25 - Head Exam Head Exam: ATRAUMATIC, NORMOCEPHALIC - Eye Exam Eye Exam: EOMI - ENT Exam ENT Exam: Mucous Membranes Moist - Neck Exam Neck Exam: Full ROM - Respiratory Exam Respiratory Exam: Clear to Ausculation Bilateral, NORMAL BREATHING PATTERN. absent: Accessory Muscle Use, Respiratory Distress - Cardiovascular Exam Cardiovascular Exam: RRR, +S1, +S2. absent: Diastolic murmur, Murmur - GI/Abdominal Exam GI & Abdominal Exam: Soft, Normal Bowel Sounds - Extremities Exam Extremities Exam: Full ROM, Pedal Edema. absent: Calf Tenderness - Neurological Exam Neurological Exam: Alert, Awake, Oriented x3 - Psychiatric Exam Psychiatric exam: Normal Affect, Normal Mood - Skin Additional comments: excoriations BL UE Assessment and Plan - Assessment and Plan (Free Text) Assessment: Pt is a 57 yo female with a PMH of Breast CA, asthma, COPD, anxiety, DM, and a right pleural effusion who presented with acute hypercapnic respiratory failure, subsequently extubated and transferred to medicine floors. Plan: Acute Hypercapnic Respiratory Failure - Likely 2/2 tobacco use in the setting of her known asthma and COPD - duonebs, prednisone, pulmicort, brovana - Chest CT 04/20/18: progression of atelectasis now invovling the entire right lung and right sided effusion. Rule out mucous plug - Cardio, following - Pulm, refused BIPAP, elevate HOB 45 degrees, cont pulm toileting, incentive spirometry - IR consulted for thoracentesis HCAP - Strep pneumo not detected, legionella negative, MRSA negative, blood cultures NGTD - Procal 0.55 - ID following, monitor off antibiotics, continue to monitor DAHLIA on CKD - BUN 69 - Cr 2.0 - Likely ATN in setting of diabetic and hypertensive chronic kidney disease - Nephrology, cont HTN control Excoriations on BL UE - bacitracin ointment Anxiety - Paxil - psyc advises not to continue taking benzos due to the fact that pt has overdosed multiple times DM - levemir 10 HS - lispro 4 units AC - accuchecks - ISS HLD - lipitor 40mg HTN - metoprolol tartrate 25 BID Breast CA - CA15-3, CEA, CA27.29 follow up - Heme/ Onc, 1 dose of darbapoetin 40mcg sc on 04/13/18 - we will continue this once a week, pt advised to see an oncologist as an out pt for her breast CA, she has been advised this before on previous admissions - Palliative care, tried to discuss plan for discharge [facility] vs home. She did not answer my question nor did she want to engage in conversation. Her children were at beside. They stated they will do what ever their mother wants. Patient met with SW and refused BECKY, stated she wants to go home Tobacco abuse - Counseled, pt amendable to cessation - nicotine patch Ppx - protonix - heparin Pt seen, examined, assessment and plan discussed with Dr Whit Mays PGY1, Internal Medicine Resident <Whit Rick R - Last Filed: 04/23/18 11:56> Objective - Vital Signs/Intake and Output Vital Signs (last 24 hours): Temp Pulse Resp BP Pulse Ox 98.9 F 82 20 127/52 L 99 04/23/18 06:00 04/23/18 09:02 04/23/18 06:00 04/23/18 09:02 04/23/18 06:00 Intake and Output: 04/23/18 04/23/18 06:59 18:59 Intake Total 180 Output Total 500 Balance -320 - Medications Medications: Current Medications Albuterol Sulfate (Albuterol 0.083% Inhal Elvie (2.5 Mg/3 Ml) Ud) 2.5 mg INH [id number] [facility] Last Admin: 04/23/18 07:45 Dose: 2.5 mg Albuterol/Ipratropium (Duoneb 3 Mg/0.5 Mg (3 Ml) Ud) 3 ml IH Q2H PRN PRN Reason: Shortness of Breath Last Admin: 04/22/18 18:21 Dose: 3 ml Alprazolam (Xanax) 0.5 mg PO TID PRN; Protocol PRN Reason: Anxiety Last Admin: 04/23/18 11:45 Dose: 0.5 mg Arformoterol Tartrate (Brovana) 15 mcg IH [id number] [facility] Last Admin: 04/23/18 07:45 Dose: 15 mcg Aspirin (Aspirin Chewable) 81 mg PO DAILY [facility] Last Admin: 04/23/18 09:01 Dose: 81 mg Atorvastatin Calcium (Lipitor) 40 mg PO DAILY [facility] Last Admin: 04/23/18 09:01 Dose: 40 mg Bacitracin (Bacitracin) 0 gm TOP BID [facility] Last Admin: 04/20/18 17:27 Dose: 1 applic Benzocaine/Menthol (Cepacol Sore Throat) 1 vy MT Q4H PRN PRN Reason: Sore Throat Last Admin: 04/20/18 21:49 Dose: 1 vy Budesonide (Pulmicort Respules) 0.5 mg IH [id number] [facility] Last Admin: 04/23/18 07:45 Dose: 0.5 mg Dextrose (Dextrose 50% Inj) 0 ml IV STAT PRN; Protocol PRN Reason: Hypoglycemia Protocol Ergocalciferol (Drisdol 50,000 Intl Units Cap) 1 cap PO Q7D [facility] Last Admin: 04/18/18 17:45 Dose: 1 cap Ferrous Gluconate (Fergon) 324 mg PO DAILY [facility] Last Admin: 04/22/18 09:21 Dose: 324 mg Heparin Sodium (Porcine) (Heparin) 5,000 units SC Q8 [facility]; Protocol Last Admin: 04/23/18 06:31 Dose: 5,000 units Dextrose (Dextrose 5% In Water 1000 Ml) 1,000 mls @ 0 mls/hr IV .Q0M PRN; P rotocol PRN Reason: Hypoglycemia Protocol Insulin Detemir (Levemir) 24 unit SC HS [facility] Insulin Human Lispro (Humalog) 12 units SC AC [facility] Last Admin: 04/23/18 11:46 Dose: 12 units Insulin Human Lispro (Humalog Low) 0 units SC ACHS [facility]; Protocol Last Admin: 04/23/18 11:47 Dose: Not Given Metoprolol Tartrate (Lopressor) 25 mg PO BID [facility] Last Admin: 04/23/18 09:02 Dose: 25 mg Nicotine (Nicoderm Cq) 1 patch TD DAILY [facility] Last Admin: 04/23/18 09:13 Dose: 1 patch Pantoprazole Sodium (Protonix Ec Tab) 40 mg PO ACB [facility] Last Admin: 04/23/18 11:44 Dose: 40 mg Paroxetine HCl (Paxil) 5 mg PO HS [facility] Last Admin: 04/21/18 22:26 Dose: 5 mg Prednisone (Prednisone Tab) 40 mg PO DAILY [facility] Last Admin: 04/23/18 09:01 Dose: 40 mg Vitamin B Complex/Vit C/Folic Acid (Nephro-Enrrique) 1 tab PO 0800 [facility] Last Admin: 04/23/18 09:01 Dose: 1 tab - Labs Labs: 04/23/18 06:30 04/23/18 06:30 PT 11.9 SECONDS (9.4-12.5) 04/11/18 12:25 INR 1.05 04/11/18 12:25 APTT 25.3 Seconds (26.9-38.3) L 04/11/18 12:25 Attending/Attestation - Attestation I have personally seen and examined this patient.: Yes I have fully participated in the care of the patient.: Yes I have reviewed all pertinent clinical information, including history, physical exam and plan: Yes Notes (Text): Patient seen and examined by me with resident at 10:25AM on 04/21/18. Case including HPI, physical exam, and assessment and plan discussed with resident. Agree with above with following additions/corrections. Patient is a 57 year old female with past medical history significant for COPD, asthma, untreated breast cancer, anemia, depression and anxiety, and recurrent UTIs that presented to the emergency room for respiratory failure. Patient states she feels ok. Complains of some lower extremity pain. Also with some shortness of breath. She denies any chest pain or palpitations. No nausea or vomiting. Complains of a little abdominal pain. No fevers or chills. No dysuria. Physical exam: General: Awake and alert sitting up in bed in no acute distress HEENT: Normocephalic, atraumatic. Extraocular muscles intact, pupils equal and reactive, no scleral icterus. Oropharynx is pink and moist. No pharyngeal erythema or exudate appreciated. Neck is supple. Cardiovascular: Regular rhythm. Normal S1 and S2. No murmurs, rubs, or gallops appreciated Pulmonary: Normal respiratory effort. Decreased breath sounds. No rhonchi, rales, or wheezing appreciated. Gastrointestinal: Soft, nondistended. Mild generalized tenderness with deep palpation. Positive bowel sounds all 4 quadrants. No guarding. Musculoskeletal: Moves all extremities. No calf tenderness. Trace bilateral lower extremity edema appreciated. Central nervous system: Awake and alert. CN 2-12 grossly intact. Dermatologic: Skin warm and dry. Positive excoriations with some scabs bilatera l forearms and hands. Assessment and plan: Patient is a 57 year old female with past medical history significant for COPD, asthma, untreated breast cancer, anemia, anxiety, and recurrent UTIs that presented to the emergency room for respiratory failure. 1. Pleural effusion/Complete opacification of right hemithorax. Elevated ProBNP. ProBNP 7140, likely secondary to CKD. Pleural effusion likely secondary to pneumonia vs malignancy. Pulmonary following, recommendations appreciated. Biochemist following, recommendations appreciated. Lasix changed to PO. Pending IR recommendations. Chest xray showed complete opacification of right hemithorax. CT chest per radiologist showed significant progression of atelectasis no involving the entire right lung with right-sided effusion has increased as well, rule out mucous plugging volume loss right hemithorax with shift of the mediastinum from [id number]; small left-sided effusion and mild left basilar atelectasis; scattered patchy groundglass opacity seen in the left lower lobe. 2. Acute hypercapnic respiratory failure. S/P intubation and extubation. Chest CT as above. Tailings Worker following, recommendations appreciated. Continue O2 via nasal cannula as needed. Continue nebulizer treatments. Continue Brovana and Pulmicort. Continue Prednisone. Lasix changed to PO. Patient refusing BiPAP. Chest xray 04/17/18 per radiologist showed almost complete opacification of right hemithorax with right-sided volume loss and shift of the heart mediastinum towards the right, patchy opacity at left base, possible pneumonia. IR consulted, follow-up recommendations. Chest CT 04/11/18 per radiologist showed decrease in right lobe consolidation and adjacent pleural effusion, some residual consolidation at right lung base posteriorly; chronic area of scarring or consolidation in posterior aspect of the right lung apex; calcification seen in left upper quadrant of left breast. 3. DAHLIA, likely ATN on Chronic Kidney disease. Riding Teacher following, recommendations appreciated. BUN/Cr stable. Lasix changed to PO. Continue nehprovite. Continue to monitor. 4. Noncompliance by refusing service. Patient now agreeing to treatment. Pyschiatrist following, recommendations appreciated. 5. Healthcare associated pneumonia. Chest CT 04/20/18not showing infiltrate. ID following, recommendations appreciated. Patient is s/p treatment with cefepime. Leukocytosis resolved. Afebrile. Blood cultures with no growth. Procalcitonin 0.55. Influenza negative, Urine for legionella negative. Urine for strep pneumoniae negative. ID following, recommendations appreciated. 6. Anemia. Likely secondary to malignancy and chronic disease. S/P 2 units PRBCs. H&H stable. Continue ferrous sulfate. Continue to monitor CBC. 7. DM2 with hyperglycemia. Continue insulin sliding scale. Continue Levemir at bedtime. Lispro AC added. Continue to monitor accuchecks. Hgb AIC was 8.8 on 04/03/18. 8. Essential hypertension. Continue Metoporolol and Lasix 9. Hyperlipidemia. Continue lipitor. 10. History of breast cancer. S/P 1 cycle of chemo, patient refused chemo and s urgery post one cycle. Will need repeat Chest CT in one month per hem/onc. Hem/onc following, recommendations appreciated. 11. Tobacco abuse. Patient was counseled at length on tobacco cessation. Cont inue with nicotine patch. 12. Depression and Anxiety. Psychiatrist reconsulted, follow up recommendations. Continue Paxil 5 mg at bedtime. No benzodiazepines or narcotics to be given secondary to respiratory depression. 13. GI/DVT prophylaxis. Protonix/heparin 14. Patient is a full code. Palliative care recommendations appreciated. Case was discussed in detail with the patient regarding current diagnosis and treatment plan.All questions answered.
[2018-04-21 17:20] LABS: ALB/GLOB RATIO 1.3 (1.1-1.8); ALBUMIN 3.3 g/dL (3.0-4.8); CALCIUM 6.9 mg/dL (8.4-10.5)
--- NOTE | 2018-04-21 17:39 | CP.PCM.PN ---
Subjective - Date & Time of Evaluation Date of Evaluation: 04/21/18 Time of Evaluation: 09:55 - Subjective Subjective: Comfortable, no fevers, not in distress. Objective - Vital Signs/Intake and Output Vital Signs (last 24 hours): Temp Pulse Resp BP Pulse Ox 98.2 F 86 18 137/57 L 99 04/21/18 06:00 04/21/18 09:53 04/21/18 06:00 04/21/18 10:05 04/21/18 06:00 Intake and Output: 04/21/18 04/21/18 06:59 18:59 Intake Total 1040 Output Total 900 Balance 140 - Medications Medications: Current Medications Albuterol Sulfate (Albuterol 0.083% Inhal Elvie (2.5 Mg/3 Ml) Ud) 2.5 mg INH [id number] [facility] Last Admin: 04/21/18 09:10 Dose: 2.5 mg Albuterol/Ipratropium (Duoneb 3 Mg/0.5 Mg (3 Ml) Ud) 3 ml IH Q2H PRN PRN Reason: Shortness of Breath Last Admin: 04/21/18 00:35 Dose: 3 ml Arformoterol Tartrate (Brovana) 15 mcg IH [id number] [facility] Last Admin: 04/21/18 09:08 Dose: 15 mcg Aspirin (Aspirin Chewable) 81 mg PO DAILY [facility] Last Admin: 04/21/18 09:53 Dose: 81 mg Atorvastatin Calcium (Lipitor) 40 mg PO DAILY [facility] Last Admin: 04/21/18 09:53 Dose: 40 mg Bacitracin (Bacitracin) 0 gm TOP BID [facility] Last Admin: 04/20/18 17:27 Dose: 1 applic Benzocaine/Menthol (Cepacol Sore Throat) 1 vy MT Q4H PRN PRN Reason: Sore Throat Last Admin: 04/20/18 21:49 Dose: 1 vy Budesonide (Pulmicort Respules) 0.5 mg IH [id number] [facility] Last Admin: 04/21/18 09:09 Dose: 0.5 mg Dextrose (Dextrose 50% Inj) 0 ml IV STAT PRN; Protocol PRN Reason: Hypoglycemia Protocol Ergocalciferol (Drisdol 50,000 Intl Units Cap) 1 cap PO Q7D [facility] Last Admin: 04/18/18 17:45 Dose: 1 cap Ferrous Gluconate (Fergon) 324 mg PO DAILY [facility] Last Admin: 04/21/18 09:53 Dose: 324 mg Furosemide (Lasix) 20 mg PO DAILY [facility] Stop: 04/26/18 10:01 Last Admin: 04/21/18 10:05 Dose: 20 mg Heparin Sodium (Porcine) (Heparin) 5,000 units SC Q8 [facility]; Protocol Last Admin: 04/21/18 05:26 Dose: 5,000 units Dextrose (Dextrose 5% In Water 1000 Ml) 1,000 mls @ 0 mls/hr IV .Q0M PRN; Protocol PRN Reason: Hypoglycemia Protocol Insulin Detemir (Levemir) 10 unit SC HS [facility] Last Admin: 04/20/18 21:50 Dose: 10 units Insulin Human Lispro (Humalog Low) 0 units SC ACHS [facility]; Protocol Last Admin: 04/21/18 08:22 Dose: 3 units Insulin Human Lispro (Humalog) 4 units SC AC [facility] Metoprolol Tartrate (Lopressor) 25 mg PO BID [facility] Last Admin: 04/21/18 09:53 Dose: 25 mg Nicotine (Nicoderm Cq) 1 patch TD DAILY [facility] Last Admin: 04/21/18 09:52 Dose: 1 patch Pantoprazole Sodium (Protonix Ec Tab) 40 mg PO ACB [facility] Last Admin: 04/21/18 09:53 Dose: 40 mg Paroxetine HCl (Paxil) 5 mg PO HS [facility] Last Admin: 04/20/18 21:48 Dose: 5 mg Prednisone (Prednisone Tab) 40 mg PO DAILY [facility] Last Admin: 04/21/18 09:53 Dose: 40 mg Vitamin B Complex/Vit C/Folic Acid (Nephro-Enrrique) 1 tab PO 0800 [facility] Last Admin: 04/21/18 09:53 Dose: 1 tab - Labs Labs: 04/21/18 07:15 04/21/18 07:15 PT 11.9 SECONDS (9.4-12.5) 04/11/18 12:25 INR 1.05 04/11/18 12:25 APTT 25.3 Seconds (26.9-38.3) L 04/11/18 12:25 - Constitutional Appears: Chronically Ill - Head Exam Head Exam: NORMAL INSPECTION - Respiratory Exam Respiratory Exam: Decreased Breath Sounds - Cardiovascular Exam Cardiovascular Exam: +S1, +S2 - GI/Abdominal Exam GI & Abdominal Exam: Soft. absent: Tenderness Assessment and Plan - Assessment and Plan (Free Text) Plan: Assessment S/P severe sepsis with hypercapneic respiratory failure S/P VDRF due to congestive heart failure R/O right sided HCAP history of urinary tract infection with Proteus mirabilis history of pneumonia history of Carmen esophagitis End-stage COPD in a patient with a long history of smoking unresectable breast cancer DM HTN history of spine surgery history of bladder surgery history of UTI Plan completed course of antibiotics - will continue to monitor off antibiotics since she is at risk for hospital-acquired infections overall prognosis is poor
--- NOTE | 2018-04-21 18:39 | PN ---
DATE: 04/21/2018 This is [facility]'s [facility] visit on the medical floor. For Dr. Gleason. SUBJECTIVE: The patient is a 57-year-old female seen lying in bed with her eyes closed. Her son reports that the patient did not sleep well last night and the son also reporting the patient has not been out of bed for the past few days. Otherwise, upon wakening the patient appears to be in no acute distress. It should be noted the patient is recently extubated with history of breast cancer, sepsis with hearing loss and anemia and transfusion of packed red blood cells in the recent past along with kidney disease which is being followed. OBJECTIVE/PHYSICAL EXAMINATION: VITAL SIGNS: Temperature 98.2, pulse 86, respirations 18, blood pressure 137/57, and pulse ox 99%. HEENT: Unremarkable. NECK: Supple. HEART: Regular rate. LUNGS: Scattered rhonchi and normal decreased breath sounds on the right. ABDOMEN: Obese, soft, nontender. EXTREMITIES: +1 edema. NEUROLOGIC: Somnolent but arousable. SKIN: Warm and dry. LABORATORY DATA: The patient's labs were done. White blood cell count of 5.2, hemoglobin 8.6, hematocrit 28.5, platelet count of 85,000 with a metabolic panel showing a potassium of 3.4, BUN of 69, creatinine of 2, non-fasting glucose of 301, down from 440 yesterday with a ALT of 60. The patient had a stool for occult blood done earlier today was reported as negative. ASSESSMENT: The assessment for this patient is that of respiratory failure, status post extubation, chronic obstructive pulmonary disease, history of pneumonia, history of breast cancer, history of diabetes, recurrent urinary tract infections, anemia of chronic disease, sleep apnea, hearing loss, status post severe sepsis, acute kidney disease, and deconditioning. PLAN: The plan for this patient , after conversation with Dr. Gleason, is to continue to present medical regimen. It should be noted that the patient does have significant atelectasis with right sided effusion with the patient recommended to be out of bed to chair with physicotherapy for strengthening exercises, range of motion recommended with the prognosis for this patient guarded. This is a complex patient with a comprehensive medically necessary and appropriate visit carried out in excess of 20 minutes with the patient's son;s questions answered to his satisfaction. Also it should be noted that tumor markers for the patient's history of breast cancer have not been done. Recently according to review of considered data we will request them for the morning. Juan Jose Valles MD
--- NOTE | 2018-04-21 20:40 | PN ---
DATE: 04/21/2018 PULMONARY PROGRESS NOTE REFERRING PHYSICIAN: Darius Rdz MD SUBJECTIVE: She is lying in the bed, head at 45 degrees, and children at bedside. Refusing to get out of bed to chair, has some cough, unable to clear pulmonary secretion, and refusing deep suctioning. No nausea. No vomiting, diarrhea, leg pain, or leg swelling. OBJECTIVE: GENERAL: In no acute distress. VITAL SIGNS: Temperature is 98, heart rate is 84, respiratory rate is 16, blood pressure is 119/56, and pulse ox 99% on nasal cannula. HEENT: Moist mucous membrane. Crowded airway. NECK: Supple. No JVD. LUNGS: Has a scattered rhonchi, but decreased breath sounds at the right lung. HEART: S1 and S2. ABDOMEN: Soft and nontender. No organomegaly. EXTREMITIES: No edema. NEUROLOGIC: Awake, alert and follows simple command. MEDICATIONS: She is on DuoNeb every 6 hours [id number], aspirin 81 mg daily, Bactroban affected area twice a day, Brovana inhaled twice a day, Cepacol lozenges every 4 hours p.r.n., dextrose p.r.n. basis, DuoNeb every 2 hours p.r.n., , vitamin D 50,000 one capsules every 7 days, ferrous gluconate 325 mg daily, insulin coverage, Levemir 10 units subcutaneously at bedtime, Lipitor 40 mg daily, metoprolol tartrate 25 mg twice a day, Nephro vitamins daily, Nicoderm patch daily, Paxil 5 mg daily, prednisone 40 mg daily, Protonix 40 mg daily, and Pulmicort inhaled twice a day. LABORATORY DATA: Shows hemoglobin 8.6, hematocrit 28.5, WBC 5.2, and platelet is 85. Sodium 139, potassium 4.8, chloride 96, bicarbonate 34, BUN 71, creatinine 1.9, glucose 541, and calcium 6.9. AST 33, ALT 471, and alk phos is 90. Albumin is 3.3. CAT scan of the chest was done, which shows almost whiteout right lung with combination of mucus plugging, infiltrate, and pleural effusion. IMPRESSION AND PLAN: Chronic obstructive lung disease, extensive mucus plugging of the right lung atelectasis, effusion, diabetes, chronic lung disease, history of breast cancer which is progressive disease, urinary tract infection, obstructive sleep apnea syndrome is suspected, noncompliant with followup and testing, and refusing deep suctioning. We will add incentive spirometer, chest therapy, and continue encourage deep suctioning every 4 hours scheduled for thoracentesis on Monday. Gastric prophylaxis and deep venous thrombosis prophylaxis. Readjust insulin for hyperglycemia, which probably is mostly caused by steroids. Overall poor prognosis. Thank you and we will follow with you. Lisa Rucker MD
[2018-04-21] MEDS: Insulin Detemir 100 units/ml Vial (Levemir) SC SCH (22:23)
[2018-04-22 07:03] LABS: LYMPH # 0.6 (1.2-3.4); LYMPH % 12.8 % (22.0-35.0); MEAN CELL VOLUME 96.4 fl (80.0-105.0); MEAN CORPUSCULAR HEMOGLOBIN 28.8 pg (25.0-35.0); MEAN CORPUSCULAR HGB CONC 29.9 g/dl (31.0-37.0); MEAN PLATELET VOLUME 11.4 fl (7.0-11.0); MONO # 0.1 (0.1-0.6); MONO % 2.8 % (1.0-6.0); RBC 2.78 10^6/uL (3.5-6.1); WHITE BLOOD COUNT 4.7 10^3/uL (4.5-11.0)
[2018-04-22 07:38] LABS: ALB/GLOB RATIO 1.3 (1.1-1.8); ALBUMIN 2.9 g/dL (3.0-4.8); CALCIUM 6.4 mg/dL (8.4-10.5)
[2018-04-22] MEDS: Insulin Lispro 1 UNITS/0.01 ML SC SCH ×3 (07:58→16:53)
[2018-04-22] MEDS: Insulin Lispro (humaLOG) LOW Coverage SC SCH ×3 (07:58→16:54)
[2018-04-22] MEDS: Arformoterol 15 mcg/2 ml Inh Sol IH SCH ×2 (08:02→20:13)
[2018-04-22] MEDS: Budesonide 0.5 mg/2 ml Inhal Susp UD IH SCH ×2 (08:02→20:13)
[2018-04-22] MEDS: Albuterol 0.083% Inhal Sol (2.5 mg/3 mL) UD INH SCH ×3 (08:02→20:13)
[2018-04-22] MEDS: Multivitamin Vitamin B Complex (Nephro-Vite) Tab PO SCH (09:20)
[2018-04-22] MEDS: Pantoprazole 40 mg EC Tab PO SCH (09:24)
[2018-04-22] MEDS ORDERED: Insulin Detemir 100 units/ml Vial (Levemir) SC SCH (09:51)
--- NOTE | 2018-04-22 09:58 | CP.PCM.PCO ---
Physician Communication Note - Physician Communication Note Physician Communication Note: Patient deeply sleeping, will f/u on 04/23/18
--- NOTE | 2018-04-22 11:59 | CP.PCM.PN ---
<Aj Mays - Last Filed: 04/22/18 12:25> Subjective - Date & Time of Evaluation Date of Evaluation: 04/22/18 Time of Evaluation: 06:10 - Subjective Subjective: Pt seen and examined at bedside. Per nursing, tolerating diet well, denies pain, anxious but cooperative. Objective - Vital Signs/Intake and Output Vital Signs (last 24 hours): Temp Pulse Resp BP Pulse Ox 98.5 F 80 20 114/48 L 100 04/22/18 06:00 04/22/18 06:00 04/22/18 06:00 04/22/18 06:00 04/22/18 06:00 Intake and Output: 04/22/18 04/22/18 06:59 18:59 Intake Total 180 Output Total 500 Balance -320 - Medications Medications: Current Medications Albuterol Sulfate (Albuterol 0.083% Inhal Elvie (2.5 Mg/3 Ml) Ud) 2.5 mg INH [id number] [facility] Last Admin: 04/22/18 08:02 Dose: 2.5 mg Albuterol/Ipratropium (Duoneb 3 Mg/0.5 Mg (3 Ml) Ud) 3 ml IH Q2H PRN PRN Reason: Shortness of Breath Last Admin: 04/21/18 17:35 Dose: 3 ml Alprazolam (Xanax) 0.5 mg PO TID PRN; Protocol PRN Reason: Anxiety Last Admin: 04/22/18 09:21 Dose: 0.5 mg Arformoterol Tartrate (Brovana) 15 mcg IH [id number] [facility] Last Admin: 04/22/18 08:02 Dose: 15 mcg Aspirin (Aspirin Chewable) 81 mg PO DAILY [facility] Last Admin: 04/22/18 09:21 Dose: 81 mg Atorvastatin Calcium (Lipitor) 40 mg PO DAILY [facility] Last Admin: 04/22/18 09:21 Dose: 40 mg Bacitracin (Bacitracin) 0 gm TOP BID [facility] Last Admin: 04/20/18 17:27 Dose: 1 applic Benzocaine/Menthol (Cepacol Sore Throat) 1 vy MT Q4H PRN PRN Reason: Sore Throat Last Admin: 04/20/18 21:49 Dose: 1 vy Budesonide (Pulmicort Respules) 0.5 mg IH [id number] [facility] Last Admin: 04/22/18 08:02 Dose: 0.5 mg Dextrose (Dextrose 50% Inj) 0 ml IV STAT PRN; Protocol PRN Reason: Hypoglycemia Protocol Ergocalciferol (Drisdol 50,000 Intl Units Cap) 1 cap PO Q7D [facility] Last Admin: 04/18/18 17:45 Dose: 1 cap Ferrous Gluconate (Fergon) 324 mg PO DAILY [facility] Last Admin: 04/22/18 09:21 Dose: 324 mg Heparin Sodium (Porcine) (Heparin) 5,000 units SC Q8 [facility]; Protocol Last Admin: 04/22/18 05:38 Dose: 5,000 units Dextrose (Dextrose 5% In Water 1000 Ml) 1,000 mls @ 0 mls/hr IV .Q0M PRN; Protocol PRN Reason: Hypoglycemia Protocol Insulin Detemir (Levemir) 15 unit SC HS [facility] Insulin Human Lispro (Humalog Low) 0 units SC ACHS [facility]; Protocol Last Admin: 04/22/18 07:58 Dose: 5 units Insulin Human Lispro (Humalog) 6 units SC AC [facility] Metoprolol Tartrate (Lopressor) 25 mg PO BID [facility] Last Admin: 04/22/18 09:21 Dose: 25 mg Nicotine (Nicoderm Cq) 1 patch TD DAILY [facility] Last Admin: 04/22/18 09:20 Dose: 1 patch Pantoprazole Sodium (Protonix Ec Tab) 40 mg PO ACB [facility] Last Admin: 04/22/18 09:24 Dose: 40 mg Paroxetine HCl (Paxil) 5 mg PO HS [facility] Last Admin: 04/21/18 22:26 Dose: 5 mg Prednisone (Prednisone Tab) 40 mg PO DAILY [facility] Last Admin: 04/22/18 09:21 Dose: 40 mg Vitamin B Complex/Vit C/Folic Acid (Nephro-Enrrique) 1 tab PO 0800 [facility] Last Admin: 04/22/18 09:20 Dose: 1 tab - Labs Labs: 04/22/18 06:00 04/22/18 06:00 PT 11.9 SECONDS (9.4-12.5) 04/11/18 12:25 INR 1.05 04/11/18 12:25 APTT 25.3 Seconds (26.9-38.3) L 04/11/18 12:25 - Constitutional Appears: No Acute Distress - Head Exam Head Exam: ATRAUMATIC, NORMOCEPHALIC - Eye Exam Eye Exam: EOMI - ENT Exam ENT Exam: Mucous Membranes Moist - Neck Exam Neck Exam: Full ROM - Respiratory Exam Respiratory Exam: Clear to Ausculation Bilateral, NORMAL BREATHING PATTERN. absent: Accessory Muscle Use, Respiratory Distress - Cardiovascular Exam Cardiovascular Exam: RRR, +S1, +S2. absent: Diastolic murmur, Murmur - GI/Abdominal Exam GI & Abdominal Exam: Soft, Normal Bowel Sounds. absent: Tenderness - Extremities Exam Extremities Exam: Full ROM. absent: Calf Tenderness, Pedal Edema - Neurological Exam Neurological Exam: Alert, Awake, Oriented x3 - Psychiatric Exam Psychiatric exam: Normal Affect, Normal Mood - Skin Additional comments: excoriation UE BL Assessment and Plan - Assessment and Plan (Free Text) Assessment: Pt is a 57 yo female with a PMH of Breast CA, asthma, COPD, anxiety, DM, and a right pleural effusion who presented with acute hypercapnic respiratory failure, subsequently extubated and transferred to medicine floors. Plan: Acute Hypercapnic Respiratory Failure - Likely 2/2 tobacco use in the setting of her known asthma and COPD - duonebs, prednisone, pulmicort, brovana - Chest CT 04/20/18: progression of atelectasis now invovling the entire right lung and right sided effusion. Rule out mucous plug - IR consulted, spoke with Dr Villela, he will read the films and evaluate the pt tomorrow to possibly perform thoracentesis - Pulm, refused BIPAP, elevate HOB 45 degrees, cont pulm toileting, incentive spirometry - Cardio consulted HCAP - Strep pneumo not detected, legionella negative, MRSA negative, blood cultures NGTD - ID following, monitor off antibiotics DAHLIA on CKD - BUN 69 - Cr 1.6 - Likely ATN in setting of diabetic and hypertensive chronic kidney disease - Nephrology, cont HTN control Excoriations on BL UE - bacitracin ointment Anxiety - Paxil - psyc, discontinue benzos due to multiple overdoses DM - levemir 15 HS - lispro 6 units AC - accuchecks - ISS HLD - lipitor 40mg HTN - metoprolol tartrate 25 BID Breast CA - CA15-3, CA27.29 follow up - CEA 31.9 - Heme/ Onc, 1 dose of darbapoetin 40mcg sc on 04/13/18 - we will continue this once a week, pt advised to see an oncologist as an out pt for her breast CA, she has been advised this before on previous admissions - Palliative care, tried to discuss plan for discharge [facility] vs home. She did not answer my question nor did she want to engage in conversation. Her children were at beside. They stated they will do what ever their mother wants. Patient met with SW and refused BECKY, stated she wants to go home Tobacco abuse - Counseled, pt amendable to cessation - nicotine patch Ppx - protonix - heparin Pt seen, examined, assessment and plan discussed with Dr Whit Mays PGY1, Internal Medicine Resident <Whit Rick R - Last Filed: 04/23/18 12:04> Objective - Vital Signs/Intake and Output Vital Signs (last 24 hours): Temp Pulse Resp BP Pulse Ox 98.9 F 82 20 127/52 L 99 04/23/18 06:00 04/23/18 09:02 04/23/18 06:00 04/23/18 09:02 04/23/18 06:00 Intake and Output: 04/23/18 04/23/18 06:59 18:59 Intake Total 180 Output Total 500 Balance -320 - Medications Medications: Current Medications Albuterol Sulfate (Albuterol 0.083% Inhal Elvie (2.5 Mg/3 Ml) Ud) 2.5 mg INH [id number] [facility] Last Admin: 04/23/18 07:45 Dose: 2.5 mg Albuterol/Ipratropium (Duoneb 3 Mg/0.5 Mg (3 Ml) Ud) 3 ml IH Q2H PRN PRN Reason: Shortness of Breath Last Admin: 04/22/18 18:21 Dose: 3 ml Alprazolam (Xanax) 0.5 mg PO TID PRN; Protocol PRN Reason: Anxiety Last Admin: 04/23/18 11:45 Dose: 0.5 mg Arformoterol Tartrate (Brovana) 15 mcg IH [id number] [facility] Last Admin: 04/23/18 07:45 Dose: 15 mcg Aspirin (Aspirin Chewable) 81 mg PO DAILY [facility] Last Admin: 04/23/18 09:01 Dose: 81 mg Atorvastatin Calcium (Lipitor) 40 mg PO DAILY [facility] Last Admin: 04/23/18 09:01 Dose: 40 mg Bacitracin (Bacitracin) 0 gm TOP BID [facility] Last Admin: 04/20/18 17:27 Dose: 1 applic Benzocaine/Menthol (Cepacol Sore Throat) 1 vy MT Q4H PRN PRN Reason: Sore Throat Last Admin: 04/20/18 21:49 Dose: 1 vy Budesonide (Pulmicort Respules) 0.5 mg IH [id number] [facility] Last Admin: 04/23/18 07:45 Dose: 0.5 mg Dextrose (Dextrose 50% Inj) 0 ml IV STAT PRN; Protocol PRN Reason: Hypoglycemia Protocol Ergocalciferol (Drisdol 50,000 Intl Units Cap) 1 cap PO Q7D [facility] Last Admin: 04/18/18 17:45 Dose: 1 cap Ferrous Gluconate (Fergon) 324 mg PO DAILY [facility] Last Admin: 04/22/18 09:21 Dose: 324 mg Heparin Sodium (Porcine) (Heparin) 5,000 units SC Q8 [facility]; Protocol Last Admin: 04/23/18 06:31 Dose: 5,000 units Dextrose (Dextrose 5% In Water 1000 Ml) 1,000 mls @ 0 mls/hr IV .Q0M PRN; Protocol PRN Reason: Hypoglycemia Protocol Insulin Detemir (Levemir) 24 unit SC HS [facility] Insulin Human Lispro (Humalog) 12 units SC AC [facility] Last Admin: 04/23/18 11:46 Dose: 12 units Insulin Human Lispro (Humalog Low) 0 units SC ACHS [facility]; Protocol Last Admin: 04/23/18 11:47 Dose: Not Given Metoprolol Tartrate (Lopressor) 25 mg PO BID [facility] Last Admin: 04/23/18 09:02 Dose: 25 mg Nicotine (Nicoderm Cq) 1 patch TD DAILY [facility] Last Admin: 04/23/18 09:13 Dose: 1 patch Pantoprazole Sodium (Protonix Ec Tab) 40 mg PO ACB [facility] Last Admin: 04/23/18 11:44 Dose: 40 mg Paroxetine HCl (Paxil) 5 mg PO HS [facility] Last Admin: 04/21/18 22:26 Dose: 5 mg Prednisone (Prednisone Tab) 40 mg PO DAILY [facility] Last Admin: 04/23/18 09:01 Dose: 40 mg Vitamin B Complex/Vit C/Folic Acid (Nephro-Enrrique) 1 tab PO 0800 [facility] Last Admin: 04/23/18 09:01 Dose: 1 tab - Labs Labs: 04/23/18 06:30 04/23/18 06:30 PT 11.9 SECONDS (9.4-12.5) 04/11/18 12:25 INR 1.05 04/11/18 12:25 APTT 25.3 Seconds (26.9-38.3) L 04/11/18 12:25 Attending/Attestation - Attestation I have personally seen and examined this patient.: Yes I have fully participated in the care of the patient.: Yes I have reviewed all pertinent clinical information, including history, physical exam and plan: Yes Notes (Text): Patient seen and examined by me with resident at 10:10AM on 04/22/18. Case including HPI, physical exam, and assessment and plan discussed with resident. Agree with above with following additions/corrections. Patient is a 57 year old female with past medical history significant for COPD, asthma, untreated breast cancer, anemia, depression and anxiety, and recurrent UTIs that presented to the emergency room for respiratory failure. Patient states she feels a little better today. Shortness of breath is improved today. Still with some pain in her lower extremities. Also with a little abdominal pain. She denies any chest pain or palpitations. No nausea or vomiting . No fevers or chills. No dysuria. Physical exam: General: Awake and alert sitting up in bed in no acute distress HEENT: Normocephalic, atraumatic. Extraocular muscles intact, pupils equal and reactive, no scleral icterus. Oropharynx is pink and moist. No pharyngeal erythema or exudate appreciated. Neck is supple. Cardiovascular: Regular rhythm. Normal S1 and S2. No murmurs, rubs, or gallops appreciated Pulmonary: Normal respiratory effort. Decreased breath sounds. No rhonchi, rales, or wheezing appreciated. Gastrointestinal: Soft, nondistended. Mild generalized tenderness with deep palpation. Positive bowel sounds all 4 quadrants. No guarding. Musculoskeletal: Moves all extremities. No calf tenderness. Trace bilateral lower extremity edema appreciated. Central nervous system: Awake and alert. CN 2-12 grossly intact. Dermatologic: Skin warm and dry. Positive excoriations with some scabs bilateral forearms and hands. Assessment and plan: Patient is a 57 year old female with past medical history significant for COPD, asthma, untreated breast cancer, anemia, anxiety, and recurrent UTIs that presented to the emergency room for respiratory failure. 1. Pleural effusion/Complete opacification of right hemithorax. Elevated ProBNP. ProBNP 7140, likely secondary to CKD. Pleural effusion likely secondary to pneumonia vs malignancy. Pulmonary following, recommendations appreciated. Hydraulic Barker Operator following, recommendations appreciated. Continue PO lasix. IR to review Chest CT and for possible thoracentesis tomorrow. Chest xray showed complete opacification of right hemithorax. CT chest per radiologist showed significant progression of atelectasis no involving the entire right lung with right-sided effusion has increased as well, rule out mucous plugging volume loss right hemithorax with shift of the mediastinum from [id number]; small left- sided effusion and mild left basilar atelectasis; scattered patchy groundglass opacity seen in the left lower lobe. 2. Acute hypercapnic respiratory failure. S/P intubation and extubation. Chest CT as above. Bottom Man following, recommendations appreciated. Continue O2 via nasal cannula as needed. Continue nebulizer treatments. Continue Brovana and Pulmicort. Continue Prednisone. Continue PO Lasix. Patient refusing BiPAP. Chest xray 04/17/18 per radiologist showed almost complete opacification of right hemithorax with right-sided volume loss and shift of the heart mediastinum towards the right, patchy opacity at left base, possible pneumonia. IR consulted, follow-up recommendations. Chest CT 04/11/18 per radiologist showed decrease in right lobe consolidation and adjacent pleural effusion, some residual consolidation at right lung base posteriorly; chronic area of scarring or consolidation in posterior aspect of the right lung apex; calcification seen in left upper quadrant of left breast. 3. DAHLIA, likely ATN on Chronic Kidney disease. Lipstick Molder following, recommendations appreciated. BUN/Cr stable. Continue PO lasix. Continue nehprovite. Continue to monitor. 4. Noncompliance by refusing service. Patient now agreeing to treatment. Psychiatrist following, recommendations appreciated. 5. Healthcare associated pneumonia. Chest CT 04/20/18not showing infiltrate. ID following, recommendations appreciated. Patient is s/p treatment with cefepime. Leukocytosis resolved. Afebrile. Blood cultures with no growth. Procalcitonin 0.55. Influenza negative, Urine for legionella negative. Urine for strep pneumoniae negative. ID following, recommendations appreciated. 6. Anemia. Likely secondary to malignancy and chronic disease. S/P 2 units PRBCs. H&H stable. Continue ferrous sulfate. Continue to monitor CBC. 7. DM2 with hyperglycemia. Continue insulin sliding scale. Continue Levemir at bedtime. Continue lispro AC. Endocrinology consulted, follow up recommendations. Continue to monitor accuchecks. Hgb AIC was 8.8 on 04/03/18. 8. Essential hypertension. Continue Metoporolol and Lasix 9. Hyperlipidemia. Continue lipitor. 10. History of breast cancer. S/P 1 cycle of chemo, patient refused chemo and surgery post one cycle. Will need repeat Chest CT in one month per hem/onc. Hem/onc following, recommendations appreciated. 11. Tobacco abuse. Patient was counseled at length on tobacco cessation. Contin ue with nicotine patch. 12. Depression and Anxiety. Psychiatrist following, recommendations appreciated. Continue Paxil 5 mg at bedtime. No benzodiazepines or narcotics to be given secondary to respiratory depression. 13. GI/DVT prophylaxis. Protonix/heparin 14. Patient is a full code. Palliative care recommendations appreciated. Case was discussed in detail with the patient regarding current diagnosis and treatment plan.All questions answered.
--- NOTE | 2018-04-22 12:46 | CP.PCM.PN ---
Subjective - Date & Time of Evaluation Date of Evaluation: 04/22/18 Time of Evaluation: 12:45 - Subjective Subjective: Nephrology Consultation Note: Assessment: stable DAHLIA likely ATN, non-oliguric: improving acute on chronc respi acidosis with respi failure with renal compensation rt pleural effusion with chest wall mass ? 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 overall poor pro gnosis, seen by palliative care Hypertension control with meds as ordered. Maintain hemodynamics stable. Avoid hypotension. Patient not on ACEI/ARB due to recent DAHLIA, hyperkalemic tendency Monitor Input/Output, daily weights and renal function with basic metabolic panel will defer use of ORVILLE to heme/onc in view of her recent breast malignancy with concerns for mets. PRBC as needed continue with iron 325 mg TID, MVI and weekly Vit D supplement lytes as needed seen by cardio heme/onc and pulmonary IR eval for possible thoracocentesis which was refused by patient as per nursing staff. Dose meds/antibiotics for reduced GFR. Avoid fleets enema/magnesium based laxatives. Avoid nephrotoxins/NSAIDs/ iodinated contrast (unless needed emergently) Glycemic control. pt need to stop smoking Further work up/management as per primary team Thanks for allowing me to participate in care of your patient. Will follow patient with you. Please call if any Qs. had d/w team Dr Marco Antonio Chatman Office: [phone] Chief Complaint; SOB Reason for consult: CKD 3, DAHLIA HPI: Pt is a 57 F with hx of diabetes Mellitus ( years), hypertension (years) COPD/asthma, active smoker, breast cancer s/p surgery 2 years ago but didn't complete treatment now with mets, anemia, CKD stage 3 with baseline cr 1.8 mg/dL and AKIs (peaked cr 4) admitted with acute respi distress hypercapnic respi failure and intubated/extubated, now seen for CKD management Denies OTC/herbal meds or NSAIDs No recent iodinated contrast exposure. No obvious episodes of low BP. pt was recently admitted for same and she signed out AMA. ROS: pt is a poor historian and overall hx is limited from her. sleeping Physical Examination: General Appearance: stable appearing. on o2 Vitals reviewed and noted as below Head; Atraumatic, normocephalic ENT: no ulcers no thrush. Tongue is midline. Oropharynx: no rash or ulcers. she is hard of hearing EYES: Pupils are equal, round and reactive to light accommodation. Eye muscles and extraocular movement intact. Sclera is anicteric. has some periorbital puffiness Neck; supple no lymphadenopathy, no thyromegaly or bruit Lungs: Improved respiratory rate/effort. Breath sounds reduced at rt side. Heart: normal rate. s1s2 normal. No rub or gallop. Extremities: no edema. No varicose veins Neurological: Patient is sleeping but arousable easily Skin: Warm and dry. Normal turgor. No rash. Palpitation: Normal elasticity for age Abdomen: Abdomen is soft. Bowel sounds +. There is no abdominal tenderness, no guarding/rigidity no organomegaly Psych: lack insight and flat affect/mood MSK: no joint tenderness or swelling. Digits and nails normal, no deformity : kidney or bladder not palpable Labs/imaging reviewed. Past medical history, past surgical history, family history, social history, allergy reviewed and noted as below Family hx: no hx of CKD. Rest non-contributory renal imaging: b/l cysts echo normal LVEF TSAt 26% ferritin 45 Serum FLC assay WNL ABDIRIZAK neg PTH 154 Vit D 17 Objective - Vital Signs/Intake and Output Vital Signs (last 24 hours): Temp Pulse Resp BP Pulse Ox 98.5 F 80 20 114/48 L 100 04/22/18 06:00 04/22/18 06:00 04/22/18 06:00 04/22/18 06:00 04/22/18 06:00 Intake and Output: 04/22/18 04/22/18 06:59 18:59 Intake Total 180 Output Total 500 Balance -320 - Medications Medications: Current Medications Albuterol Sulfate (Albuterol 0.083% Inhal Elvie (2.5 Mg/3 Ml) Ud) 2.5 mg INH [id number] [facility] Last Admin: 04/22/18 08:02 Dose: 2.5 mg Albuterol/Ipratropium (Duoneb 3 Mg/0.5 Mg (3 Ml) Ud) 3 ml IH Q2H PRN PRN Reason: Shortness of Breath Last Admin: 04/21/18 17:35 Dose: 3 ml Alprazolam (Xanax) 0.5 mg PO TID PRN; Protocol PRN Reason: Anxiety Last Admin: 04/22/18 09:21 Dose: 0.5 mg Arformoterol Tartrate (Brovana) 15 mcg IH [id number] [facility] Last Admin: 04/22/18 08:02 Dose: 15 mcg Aspirin (Aspirin Chewable) 81 mg PO DAILY [facility] Last Admin: 04/22/18 09:21 Dose: 81 mg Atorvastatin Calcium (Lipitor) 40 mg PO DAILY [facility] Last Admin: 04/22/18 09:21 Dose: 40 mg Bacitracin (Bacitracin) 0 gm TOP BID [facility] Last Admin: 04/20/18 17:27 Dose: 1 applic Benzocaine/Menthol (Cepacol Sore Throat) 1 vy MT Q4H PRN PRN Reason: Sore Throat Last Admin: 04/20/18 21:49 Dose: 1 vy Budesonide (Pulmicort Respules) 0.5 mg IH [id number] [facility] Last Admin: 04/22/18 08:02 Dose: 0.5 mg Dextrose (Dextrose 50% Inj) 0 ml IV STAT PRN; Protocol PRN Reason: Hypoglycemia Protocol Ergocalciferol (Drisdol 50,000 Intl Units Cap) 1 cap PO Q7D [facility] Last Admin: 04/18/18 17:45 Dose: 1 cap Ferrous Gluconate (Fergon) 324 mg PO DAILY [facility] Last Admin: 04/22/18 09:21 Dose: 324 mg Heparin Sodium (Porcine) (Heparin) 5,000 units SC Q8 [facility]; Protocol Last Admin: 04/22/18 05:38 Dose: 5,000 units Dextrose (Dextrose 5% In Water 1000 Ml) 1,000 mls @ 0 mls/hr IV .Q0M PRN; Protocol PRN Reason: Hypoglycemia Protocol Insulin Detemir (Levemir) 15 unit SC HS [facility] Insulin Human Lispro (Humalog Low) 0 units SC ACHS [facility]; Protocol Last Admin: 04/22/18 12:03 Dose: 2 units Insulin Human Lispro (Humalog) 6 units SC AC [facility] Last Admin: 04/22/18 12:02 Dose: 6 units Metoprolol Tartrate (Lopressor) 25 mg PO BID [facility] Last Admin: 04/22/18 09:21 Dose: 25 mg Nicotine (Nicoderm Cq) 1 patch TD DAILY [facility] Last Admin: 04/22/18 09:20 Dose: 1 patch Pantoprazole Sodium (Protonix Ec Tab) 40 mg PO ACB [facility] Last Admin: 04/22/18 09:24 Dose: 40 mg Paroxetine HCl (Paxil) 5 mg PO HS [facility] Last Admin: 04/21/18 22:26 Dose: 5 mg Prednisone (Prednisone Tab) 40 mg PO DAILY [facility] Last Admin: 04/22/18 09:21 Dose: 40 mg Vitamin B Complex/Vit C/Folic Acid (Nephro-Enrrique) 1 tab PO 0800 [facility] Last Admin: 04/22/18 09:20 Dose: 1 tab - Labs Labs: 04/22/18 06:00 04/22/18 06:00 PT 11.9 SECONDS (9.4-12.5) 04/11/18 12:25 INR 1.05 04/11/18 12:25 APTT 25.3 Seconds (26.9-38.3) L 04/11/18 12:25
--- NOTE | 2018-04-22 18:10 | PN ---
DATE: 04/22/2018 This is [facility] visit on the medical floor. For Dr. Gleason. SUBJECTIVE: The patient is a 57-year-old female with poor hearing, sitting up in bed, denying any pain, with the patient now noted to suffer from breast cancer, recent` respiratory failure, status post extubation with significantly elevated blood sugars recently with abnormal electrolytes, being followed by Dr. Chatman, her acting professor. The patient does have anemia of chronic disease which she is being monitored for which iron was given recently and blood tests are being monitored in that respect. The patient also has not been out of bed with recommendations for the patient to be out of bed to the chair with the physiotherapy strongly encouraged. OBJECTIVE/PHYSICAL EXAMINATION: VITAL SIGNS: Temperature 98.5, pulse 80, respirations 20, blood pressure 114/48, and pulse ox 100%. HEENT: Unremarkable. Poor hearing. NECK: Supple. HEART: Regular rate. LUNGS: Scattered rhonchi, decreased breath sounds right greater than left. ABDOMEN: Obese, soft, nontender. EXTREMITIES: Faint +1 edema. NEUROLOGIC: Awake and alert with poor hearing. Again, she is bed bound at this time, not been out of bed with recommendations to do so. LABORATORY DATA: The patient's labs were done. White blood cell count of 4.7, hemoglobin 8, hematocrit 26.8, platelet count of 79,000. Metabolic panel showing a nonfasting glucose of 376 with repeated 373, after earlier value of greater than 500 with a repeat value of 541 yesterday. The patient's BUN of 69, creatinine is 1.6 with total protein of 5.1. Her tumor makers were requested with a CA value of 31.9 with other markers pending. It should be noted the patient was transfused two units of packed red blood cells in earlier hospital stay on 04/12/2018 and 04/13/2018 with consideration for do so again should it be necessary, but she continues on oral iron in the interim with IV iron to be considered. ASSESSMENT: The assessment for this patient is that of respiratory failure, status post extubation, severe chronic obstructive pulmonary disease with atelectasis, diabetes mellitus uncontrolled, history of breast cancer, urinary tract infections, sleep apnea, questionable mood disorder, anxiety, chronic kidney disease, anemia of chronic disease, history of severe sepsis, hearing loss and deconditioning. PLAN: The plan for this patient, is to continue present medical regimen as per her attending physician and management consultant's recommendations with again the patient recommend to be out of bed on a daily basis with physiotherapy as tolerated. We will monitor labs and clinical consideration for transfusion should it be indicated. Also consult with Dr. Ernestina Hawkins, diabetic specialist is recommended. This is a complex patient with a comprehensive medically necessary and appropriate visit carried out in excess of 25 minutes with the patient, nurse's input appreciated regarding findings as above. Juan Jose Valles MD
--- NOTE | 2018-04-22 18:20 | PN ---
DATE: 04/22/2018 REFERRING PHYSICIAN: Dr. Darius Rdz. SUBJECTIVE: She is lying in the bed, son is bedside. Night was unremarkable. Still have cough and not producing much sputum. No nausea, vomiting. No diarrhea. No leg pain. No leg swelling. PHYSICAL EXAMINATION: VITAL SIGNS: Temperature 98, heart rate 80, respiratory rate is 20, blood pressure 114/48, pulse of 100% room air. HEENT: Moist mucous membrane. Crowded airway. NECK: Supple. No JVD. CARDIOPULMONARY: S1 and S2. LUNGS: Have decreased breath on the right lung with scattered rhonchi. ABDOMEN: Soft and nontender. No organomegaly. EXTREMITIES: No edema. NEUROLOGIC: Sleepy, arousable. Follows simple command. MEDICATIONS: She is on albuterol and Atrovent nebulizer every 6 hours [id number] aspirin 81 mg daily bacitracin on affected area twice a day, Brovana inhaled twice a day, Cepacol lozenges every 4 hours. p.r.n. also on vitamin D 50,000 units weekly, DuoNeb every 2 hours. p.r.n., ferrous gluconate 324 mg daily, heparin 5000 subcutaneously, Coreg, insulin coverage, Levemir 50 units subcutaneously at bedtime, Lipitor 40 mg daily, metoprolol tartrate 25 mg twice a day, Nephro-Enrrique one daily, Nicoderm patch daily, Paxil 5 mg at bedtime, prednisone 40 mg daily Protonix 40 mg a.c., Pulmicort inhaled twice a day, Xanax 0.5 mg three times a day p.r.n. LABORATORY DATA: Reviewed. No new lab is available since yesterday. IMPRESSION AND PLAN: Chronic obstructive lung disease, extensive right lung mucus plugging with atelectasis and pleural effusion, diabetes, chronic lung disease, history of breast cancer with progressive disease, urinary tract infection, obstructive sleep apnea syndrome, refusing to use continuous positive airway pressure/bilevel positive airway pressure. Spoke to nursing staff, also spoke to the patient's son at bedside. All the questions answered, requesting nursing suction set up at bedside and continue due every 4 hour deep suction for mucus, out of bed to chair if possible. Incentive spirometer. Gastric and deep venous thrombosis prophylaxis. Continue p.o. and inhaled bronchodilator, supportive care. Fall precaution. Thank you and we will follow with you. Lisa Rucker MD
[2018-04-22] MEDS: Albuterol-Ipratrop 3 mg / 0.5 (3 ml) UD IH PRN (18:21)
--- NOTE | 2018-04-22 20:26 | PN ---
DATE: 04/22/2018 SUBJECTIVE: The patient is in bed, in no acute distress, and nontoxic. PHYSICAL EXAMINATION: VITAL SIGNS: Temperature is 98, blood pressure is 120/70, and respiratory 16. HEENT: Unremarkable. NECK: Supple. LUNGS: Have decreased breath sounds. HEART: Normal S1, S2. ABDOMEN: Soft, nontender. LABORATORY DATA: Reviewed. The patient's white count is normal. Review of orders reveals the patient to be off of antibiotics and microbiology reveals the MRSA screen is negative. Urine culture is negative. ASSESSMENT AND PLAN: This is a 57-year-old female with severe sepsis, hypercapnic respiratory failure status post ventilator-dependent respiratory failure due to congestive heart failure, rule out right-sided healthcare-associated pneumonia and diabetic, hypertensive, bladder surgery, spine surgery, urinary tract infections, end-stage chronic obstructive pulmonary disease. Currently, now off of antibiotics and the patient is at risk for developing nosocomial infections. We will follow closely with you. Prasanth Maloclm MD
--- NOTE | 2018-04-23 00:51 | CON ---
DATE: 04/22/2018 ENDOCRINOLOGY CONSULT LOCATION: Room 576. This is a 57-year-old female with known history of type 2 insulin-requiring diabetes, presenting here initially with acute respiratory failure and has since then improved clinically and hemodynamically and has been transferred out now to the telemetry unit and is being referred for diabetic evaluation because of persistent hyperglycemic accelerations as noted thereof. PAST MEDICAL HISTORY: History of type 2 insulin-requiring diabetes, on a regular insulin coverage scale as given; history of hypertension and dyslipidemia; history of metastatic breast carcinoma; history of recent right pleural effusion and possible mets to the right thoracic wall area; history of chronic obstructive lung disease and chronic asthmatic bronchitis; history of recent acute respiratory failure with underlying chronic kidney disease. FAMILY HISTORY: Positive for hypertension and diabetes. SOCIAL HISTORY: The patient is an active smoker. Has a supportive family otherwise. REVIEW OF SYSTEMS: As mentioned above, admits to generalized body weakness with easy fatigability and tiredness and also admits to episodic bouts of dizziness and lightheadedness. No chest pains, but admits to progressive shortness of breath, especially on exertion. Her oral intake has been variable with episodic nausea, dyspepsia, and persistent polyuria and nocturia. Also admits to habitual constipation. PHYSICAL EXAMINATION: GENERAL: An average built female in no apparent distress. VITAL SIGNS: Blood pressure of 144/80; pulse of 70 beats per minute, regular; temperature 98; respirations are 20; height is 5 feet 6 inches; weight is 168 pounds. HEENT: Head normocephalic. Eyes anicteric with pink conjunctivae. Funduscopy not possible at this time. Ears, nose, and throat otherwise normal. NECK: Supple. Thyroid gland is normal size. No carotid bruits or cervical adenopathy. CARDIOPULMONARY: Some adynamic precordium. S1, S2 is rapid and regular. Lungs are clear to auscultation. ABDOMEN: Flat, soft with positive bowel sounds. EXTREMITIES: No peripheral edema. Pulses are +2 bilaterally. LABORATORY DATA: Her chemistry showed a BUN of 69, sodium 140, potassium 3.6, chloride 99, CO2 is 37, glucose is 376, and creatinine is 1.6. Her glucose levels are fluctuating and have ranged from 311 to 373 and over 500 mg/dL. ASSESSMENT: This is a 57-year-old female with uncontrolled and decompensated type 2 insulin-requiring diabetes with marked hyperglycemic accelerations related to the recent physical stressors and ongoing oral steroid therapy, which as we know would contribute to the increased insulin resistance and further impair glucose tolerance thereof and also has a current underlying subtherapeutic insulin regimen as noted. PLAN OF MANAGEMENT: We will modify her current insulin regimen and switch her over to a more physiologic basal and bolus insulin drug combination as ordered. We will add Humalog given as 12 units t.i.d. before meals to start tomorrow morning as ordered. We will also add basal insulin. We will also titrate her basal insulin to a higher dose of Levemir given as 24 units subcu at bedtime daily to start tomorrow night. We will modify the coverage scale to obviate hypoglycemia and detailed orders have been given. We will obtain serial chemistries and supplement accordingly as needed. A hemoglobin A1c will be obtained to confirm her prior glycemic control and baseline thyroid function studies will be ordered. We will follow. Ernestina Hawkins MD
[2018-04-23] MEDS: Albuterol 0.083% Inhal Sol (2.5 mg/3 mL) UD INH SCH ×4 (02:32→19:52)
[2018-04-23 06:36] LABS: HEMOGLOBIN 8.1 g/dL (12.0-16.0); LYMPH # 0.5 (1.2-3.4); LYMPH % 10.3 % (22.0-35.0); MEAN CELL VOLUME 95.7 fl (80.0-105.0); MEAN CORPUSCULAR HEMOGLOBIN 29.1 pg (25.0-35.0); MEAN CORPUSCULAR HGB CONC 30.5 g/dl (31.0-37.0); MEAN PLATELET VOLUME 11.5 fl (7.0-11.0); MONO # 0.2 (0.1-0.6); MONO % 3.8 % (1.0-6.0); RBC 2.78 10^6/uL (3.5-6.1); RED CELL DISTRIBUTION WIDTH 18.7 % (11.5-14.5); WHITE BLOOD COUNT 5.1 10^3/uL (4.5-11.0)
[2018-04-23] MEDS ORDERED: Insulin Lispro (humaLOG) LOW Coverage SC SCH (07:30)
[2018-04-23] MEDS: Budesonide 0.5 mg/2 ml Inhal Susp UD IH SCH ×2 (07:45→19:52)
[2018-04-23] MEDS: Arformoterol 15 mcg/2 ml Inh Sol IH SCH ×2 (07:45→19:52)
[2018-04-23 07:54] LABS: ALB/GLOB RATIO 1.3 (1.1-1.8); ALBUMIN 3.1 g/dL (3.0-4.8); CALCIUM 6.9 mg/dL (8.4-10.5)
[2018-04-23] MEDS ORDERED: Darbepoetin Alfa 40 mcg/ml Inj SC ONE (08:29)
--- NOTE | 2018-04-23 08:31 | CP.PCM.PN ---
Subjective - Date & Time of Evaluation Date of Evaluation: 04/23/18 Time of Evaluation: 08:30 - Subjective Subjective: PGY-2 heme/onc progress note for Dr Gleason Patient with disorganized thoughts. Scratch moody on arms and legs. ROS not obtainable. AAOx2. Hard of hearing. Objective - Vital Signs/Intake and Output Vital Signs (last 24 hours): Temp Pulse Resp BP Pulse Ox 98.8 F 89 20 136/54 L 95 04/22/18 22:00 04/22/18 22:00 04/22/18 22:00 04/22/18 22:00 04/22/18 22:00 - Medications Medications: Current Medications Albuterol Sulfate (Albuterol 0.083% Inhal Elvie (2.5 Mg/3 Ml) Ud) 2.5 mg INH [id number] [facility] Last Admin: 04/23/18 07:45 Dose: 2.5 mg Albuterol/Ipratropium (Duoneb 3 Mg/0.5 Mg (3 Ml) Ud) 3 ml IH Q2H PRN PRN Reason: Shortness of Breath Last Admin: 04/22/18 18:21 Dose: 3 ml Alprazolam (Xanax) 0.5 mg PO TID PRN; Protocol PRN Reason: Anxiety Last Admin: 04/22/18 09:21 Dose: 0.5 mg Arformoterol Tartrate (Brovana) 15 mcg IH [id number] [facility] Last Admin: 04/23/18 07:45 Dose: 15 mcg Aspirin (Aspirin Chewable) 81 mg PO DAILY [facility] Last Admin: 04/22/18 09:21 Dose: 81 mg Atorvastatin Calcium (Lipitor) 40 mg PO DAILY [facility] Last Admin: 04/22/18 09:21 Dose: 40 mg Bacitracin (Bacitracin) 0 gm TOP BID [facility] Last Admin: 04/20/18 17:27 Dose: 1 applic Benzocaine/Menthol (Cepacol Sore Throat) 1 vy MT Q4H PRN PRN Reason: Sore Throat Last Admin: 04/20/18 21:49 Dose: 1 vy Budesonide (Pulmicort Respules) 0.5 mg IH [id number] [facility] Last Admin: 04/23/18 07:45 Dose: 0.5 mg Dextrose (Dextrose 50% Inj) 0 ml IV STAT PRN; Protocol PRN Reason: Hypoglycemia Protocol Ergocalciferol (Drisdol 50,000 Intl Units Cap) 1 cap PO Q7D [facility] Last Admin: 04/18/18 17:45 Dose: 1 cap Ferrous Gluconate (Fergon) 324 mg PO DAILY [facility] Last Admin: 04/22/18 09:21 Dose: 324 mg Heparin Sodium (Porcine) (Heparin) 5,000 units SC Q8 [facility]; Protocol Last Admin: 04/23/18 06:31 Dose: 5,000 units Dextrose (Dextrose 5% In Water 1000 Ml) 1,000 mls @ 0 mls/hr IV .Q0M PRN; Protocol PRN Reason: Hypoglycemia Protocol Insulin Detemir (Levemir) 24 unit SC HS [facility] Insulin Human Lispro (Humalog) 12 units SC AC [facility] Insulin Human Lispro (Humalog Low) 0 units SC ACHS [facility]; Protocol Metoprolol Tartrate (Lopressor) 25 mg PO BID [facility] Last Admin: 04/22/18 17:30 Dose: 25 mg Nicotine (Nicoderm Cq) 1 patch TD DAILY [facility] Last Admin: 04/22/18 09:20 Dose: 1 patch Pantoprazole Sodium (Protonix Ec Tab) 40 mg PO ACB [facility] Last Admin: 04/22/18 09:24 Dose: 40 mg Paroxetine HCl (Paxil) 5 mg PO HS [facility] Last Admin: 04/21/18 22:26 Dose: 5 mg Prednisone (Prednisone Tab) 40 mg PO DAILY [facility] Last Admin: 04/22/18 09:21 Dose: 40 mg Vitamin B Complex/Vit C/Folic Acid (Nephro-Enrrique) 1 tab PO 0800 [facility] Last Admin: 04/22/18 09:20 Dose: 1 tab - Labs Labs: 04/23/18 06:30 04/23/18 06:30 PT 11.9 SECONDS (9.4-12.5) 04/11/18 12:25 INR 1.05 04/11/18 12:25 APTT 25.3 Seconds (26.9-38.3) L 04/11/18 12:25 - Additional Findings Additional findings: - Constitutional Appears: No Acute Distress, Older Than Stated Age - Head Exam Head Exam: ATRAUMATIC, NORMAL INSPECTION - Eye Exam Eye Exam: EOMI, Normal appearance, PERRL. absent: Scleral icterus - ENT Exam ENT Exam: Mucous Membranes Moist - Respiratory Exam Respiratory Exam: Decreased Breath Sounds, Rales Additional comments: rales R>L - Cardiovascular Exam Cardiovascular Exam: Tachycardia, REGULAR RHYTHM, +S1, +S2. absent: JVD - GI/Abdominal Exam GI & Abdominal Exam: Normal Bowel Sounds, Soft. absent: Tenderness - Extremities Exam Extremities exam: Positive for: normal capillary refill, normal inspection, pedal pulses present - Neurological Exam Neurological exam: Alert, Oriented x3 - Psychiatric Exam Psychiatric exam: Anxious - Skin Skin Exam: Normal Color, Warm Assessment and Plan - Assessment and Plan (Free Text) Plan: Mrs Granado is a 57 year old female with a PMHx history of breast cancer, severe COPD, anxiety, pneumonia, pleural effusions, CKD, xanax abuse, hx of non-compliance, hx of xanax/oxycodone overose, who presented to the ED in respiratory distress while on non-rebreather. Patient was then intubated while in ED due to lack of airway protection. Hematology/oncology has been consulted for anemia and her hx of left-sided breast cancer. Anemia -likely anemia of chronic disease 2/2 to ckd -Hgb on admission: 7.3 -> today 9.4 * chronically anemic since 02/2017 * transfused 2u pRBCs on 04/12/18 -recent admission 03/31/18 there were orders for iron studies, retic count, peripheral smear, B12, folate * retic count: 1.72, B12: 476, folate: 17, iron: 44, TIBC 213, %sat: 21, ferritin: 206, MCV: 96, LDH: 561 -has received erythropoetin in the past for anemia due to renal disease * CKD 3 and now with DAHLIA -recent admission 03/31/18 there were orders for epo level, immunofixation, spep, LDH * epo 22.8 (mildly high) * ABDIRIZAK and SPEP -> selective protein loss pattern, suggestive of nephrotic syndrome -1 dose of darbapoetin 40mcg sc on 04/06/18 - we will continue this once a week * darbopoetin 40mcg sc given on 04/13/18 * further administrations qmonthly outpatient -ferrous gluconate 324mg po qd now discontinued Hx L breast cancer (Dx 2016) invasive ductal carcinoma -ER+/HER2+ -Got 1 cycle of sandee-adjuvant chemo. After that, refused chemo/surgery. -CT chest w/o contrast showed lymphadenopathy suspicious for tumor * etiology could be malignancy, infectious, inflammatory * patient was advised that this abnormal finding on CT needs to be followed up with an oncologist - this was reiterated to her multiple times on the previous admission and again on this current admission Dispo: patient accepted to LT[facility] Seen and discussed with Dr Gleason
[2018-04-23] MEDS: Insulin Lispro 1 UNITS/0.01 ML SC SCH ×3 (09:00→17:08)
[2018-04-23] MEDS: Multivitamin Vitamin B Complex (Nephro-Vite) Tab PO SCH (09:01)
--- NOTE | 2018-04-23 10:41 | CP.PCM.PN ---
<Leonidas Guardado - Last Filed: 04/23/18 14:04> Subjective - Date & Time of Evaluation Date of Evaluation: 04/23/18 Time of Evaluation: 07:50 - Subjective Subjective: Infectious disease progress note: De Pt seen and examined at bedside. No acute events overnight. Patient states mild wheezing but no shortness of breath. No complaints. 12 Point ROS neg other than stated above Objective - Vital Signs/Intake and Output Vital Signs (last 24 hours): Temp Pulse Resp BP Pulse Ox 98.9 F 82 20 127/52 L 99 04/23/18 06:00 04/23/18 09:02 04/23/18 06:00 04/23/18 09:02 04/23/18 06:00 Intake and Output: 04/23/18 04/23/18 06:59 18:59 Intake Total 180 Output Total 500 Balance -320 - Medications Medications: Current Medications Albuterol Sulfate (Albuterol 0.083% Inhal Elvie (2.5 Mg/3 Ml) Ud) 2.5 mg INH [id number] [facility] Last Admin: 04/23/18 07:45 Dose: 2.5 mg Albuterol/Ipratropium (Duoneb 3 Mg/0.5 Mg (3 Ml) Ud) 3 ml IH Q2H PRN PRN Reason: Shortness of Breath Last Admin: 04/22/18 18:21 Dose: 3 ml Alprazolam (Xanax) 0.5 mg PO TID PRN; Protocol PRN Reason: Anxiety Last Admin: 04/22/18 09:21 Dose: 0.5 mg Arformoterol Tartrate (Brovana) 15 mcg IH [id number] [facility] [place] Last Admin: 04/23/18 07:45 Dose: 15 mcg Aspirin (Aspirin Chewable) 81 mg PO DAILY [facility] Last Admin: 04/23/18 09:01 Dose: 81 mg Atorvastatin Calcium (Lipitor) 40 mg PO DAILY [facility] Last Admin: 04/23/18 09:01 Dose: 40 mg Bacitracin (Bacitracin) 0 gm TOP BID [facility] Last Admin: 04/20/18 17:27 Dose: 1 applic Benzocaine/Menthol (Cepacol Sore Throat) 1 vy MT Q4H PRN PRN Reason: Sore Throat Last Admin: 04/20/18 21:49 Dose: 1 vy Budesonide (Pulmicort Respules) 0.5 mg IH [id number] [facility] Last Admin: 04/23/18 07:45 Dose: 0.5 mg Dextrose (Dextrose 50% Inj) 0 ml IV STAT PRN; Protocol PRN Reason: Hypoglycemia Protocol Ergocalciferol (Drisdol 50,000 Intl Units Cap) 1 cap PO Q7D [facility] [place] Last Admin: 04/18/18 17:45 Dose: 1 cap Ferrous Gluconate (Fergon) 324 mg PO DAILY [facility] [place] Last Admin: 04/22/18 09:21 Dose: 324 mg Heparin Sodium (Porcine) (Heparin) 5,000 units SC Q8 [facility] [place]; Protocol Last Admin: 04/23/18 06:31 Dose: 5,000 units Dextrose (Dextrose 5% In Water 1000 Ml) 1,000 mls @ 0 mls/hr IV .Q0M PRN; Protocol PRN Reason: Hypoglycemia Protocol Calcium Gluconate 2,000 mg/ (Sodium Chloride) 120 mls @ 110 mls/hr IVPB ONCE ONE Stop: 04/23/18 11:21 Insulin Detemir (Levemir) 24 unit SC HS [facility] Insulin Human Lispro (Humalog) 12 units SC AC [facility] Last Admin: 04/23/18 09:00 Dose: 12 u Insulin Human Lispro (Humalog Low) 0 units SC ACHS [facility]; Protocol Metoprolol Tartrate (Lopressor) 25 mg PO BID [facility] Last Admin: 04/23/18 09:02 Dose: 25 mg Nicotine (Nicoderm Cq) 1 patch TD DAILY [facility] Last Admin: 04/23/18 09:13 Dose: 1 patch Pantoprazole Sodium (Protonix Ec Tab) 40 mg PO ACB [facility] Last Admin: 04/22/18 09:24 Dose: 40 mg Paroxetine HCl (Paxil) 5 mg PO HS [facility] [place] Last Admin: 04/21/18 22:26 Dose: 5 mg Prednisone (Prednisone Tab) 40 mg PO DAILY [facility] [place] Last Admin: 04/23/18 09:01 Dose: 40 mg Vitamin B Complex/Vit C/Folic Acid (Nephro-Enrrique) 1 tab PO 0800 [facility] Last Admin: 04/23/18 09:01 Dose: 1 tab - Labs Labs: 04/23/18 06:30 04/23/18 06:30 PT 11.9 SECONDS (9.4-12.5) 04/11/18 12:25 INR 1.05 04/11/18 12:25 APTT 25.3 Seconds (26.9-38.3) L 04/11/18 12:25 - Constitutional Appears: No Acute Distress - Head Exam Head Exam: ATRAUMATIC, NORMOCEPHALIC - Eye Exam Eye Exam: EOMI - ENT Exam ENT Exam: Mucous Membranes Moist - Respiratory Exam Respiratory Exam: Clear to Ausculation Bilateral. absent: Wheezes - Cardiovascular Exam Cardiovascular Exam: REGULAR RHYTHM, +S1, +S2 - GI/Abdominal Exam GI & Abdominal Exam: Soft. absent: Tenderness - Extremities Exam Extremities Exam: absent: Calf Tenderness, Pedal Edema - Neurological Exam Neurological Exam: Alert, Awake, Oriented x3 - Psychiatric Exam Psychiatric exam: Normal Mood Assessment and Plan - Assessment and Plan (Free Text) Assessment: 57 F with a PMHx history of breast cancer, severe COPD, anxiety, pneumonia, pleural effusions, CKD, xanax abuse, hx of non-compliance, hx of xanax/oxycodone overdose, who presented respiratory failure 2/2 possible HAP s/p extubation. - completed Vanc and Cefepime - will continue to monitor off antibiotics. Pt at risk for nosocomial infection - Blood cx and UA neg - Cont to monitor Case and plan was reviewed and discussed in detail with Dr Damon <Chung Damon - Last Filed: 04/23/18 14:28> Objective - Vital Signs/Intake and Output Vital Signs (last 24 hours): Temp Pulse Resp BP Pulse Ox 98.9 F 82 20 127/52 L 99 04/23/18 06:00 04/23/18 09:02 04/23/18 06:00 04/23/18 09:02 04/23/18 06:00 Intake and Output: 04/23/18 04/23/18 06:59 18:59 Intake Total 180 Output Total 500 Balance -320 - Medications Medications: Current Medications Albuterol Sulfate (Albuterol 0.083% Inhal Elvie (2.5 Mg/3 Ml) Ud) 2.5 mg INH [id number] [facility] Last Admin: 04/23/18 13:25 Dose: 2.5 mg Albuterol/Ipratropium (Duoneb 3 Mg/0.5 Mg (3 Ml) Ud) 3 ml IH Q2H PRN PRN Reason: Shortness of Breath Last Admin: 04/22/18 18:21 Dose: 3 ml Alprazolam (Xanax) 0.5 mg PO TID PRN; Protocol PRN Reason: Anxiety Last Admin: 04/23/18 11:45 Dose: 0.5 mg Arformoterol Tartrate (Brovana) 15 mcg IH [id number] [facility] Last Admin: 04/23/18 07:45 Dose: 15 mcg Aspirin (Aspirin Chewable) 81 mg PO DAILY [facility] Last Admin: 04/23/18 09:01 Dose: 81 mg Atorvastatin Calcium (Lipitor) 40 mg PO DAILY [facility] Last Admin: 04/23/18 09:01 Dose: 40 mg Bacitracin (Bacitracin) 0 gm TOP BID [facility] Last Admin: 04/23/18 12:00 Dose: Not Given Benzocaine/Menthol (Cepacol Sore Throat) 1 vy MT Q4H PRN PRN Reason: Sore Throat Last Admin: 04/20/18 21:49 Dose: 1 vy Budesonide (Pulmicort Respules) 0.5 mg IH [id number] [facility] [place] Last Admin: 04/23/18 07:45 Dose: 0.5 mg Dextrose (Dextrose 50% Inj) 0 ml IV STAT PRN; Protocol PRN Reason: Hypoglycemia Protocol Ergocalciferol (Drisdol 50,000 Intl Units Cap) 1 cap PO Q7D [facility] [place] Last Admin: 04/18/18 17:45 Dose: 1 cap Ferrous Gluconate (Fergon) 324 mg PO DAILY [facility] Last Admin: 04/23/18 13:45 Dose: 324 mg Heparin Sodium (Porcine) (Heparin) 5,000 units SC Q8 [facility] [place]; Protocol Last Admin: 04/23/18 13:45 Dose: 5,000 units Dextrose (Dextrose 5% In Water 1000 Ml) 1,000 mls @ 0 mls/hr IV .Q0M PRN; Protocol PRN Reason: Hypoglycemia Protocol Insulin Detemir (Levemir) 24 unit SC HS [facility] [place] Insulin Human Lispro (Humalog) 12 units SC AC [facility] [place] Last Admin: 04/23/18 11:46 Dose: 12 units Insulin Human Lispro (Humalog Low) 0 units SC ACHS [facility] [place]; Protocol Last Admin: 04/23/18 11:47 Dose: Not Given Metoprolol Tartrate (Lopressor) 25 mg PO BID [facility] Last Admin: 04/23/18 09:02 Dose: 25 mg Nicotine (Nicoderm Cq) 1 patch TD DAILY [facility] [place] Last Admin: 04/23/18 09:13 Dose: 1 patch Pantoprazole Sodium (Protonix Ec Tab) 40 mg PO ACB [facility] [place] Last Admin: 04/23/18 11:44 Dose: 40 mg Paroxetine HCl (Paxil) 5 mg PO HS [facility] Last Admin: 04/21/18 22:26 Dose: 5 mg Prednisone (Prednisone Tab) 40 mg PO DAILY [facility] [place] Last Admin: 04/23/18 09:01 Dose: 40 mg Vitamin B Complex/Vit C/Folic Acid (Nephro-Enrrique) 1 tab PO 0800 [facility] [place] Last Admin: 04/23/18 09:01 Dose: 1 tab - Labs Labs: 04/23/18 06:30 04/23/18 06:30 PT 11.9 SECONDS (9.4-12.5) 04/11/18 12:25 INR 1.05 04/11/18 12:25 APTT 25.3 Seconds (26.9-38.3) L 04/11/18 12:25 Assessment and Plan - Assessment and Plan (Free Text) Assessment: Infectious diseases Attending Physician Attestation Patient seen and examined, discussed with medical engineer. I have reviewed the patient's history of present illness, past medical, social, personal and family histories, pertinent physical exam findings, course so far in this hospital admission, pertinent laboratory and imaging results. I agree with the above find ings, assessment and plan.
--- NOTE | 2018-04-23 11:31 | CP.PCM.PN ---
Subjective - Date & Time of Evaluation Date of Evaluation: 04/23/18 Time of Evaluation: 11:27 - Subjective Subjective: Nephrology Consultation Note: Assessment: stable DAHLIA likely ATN, non-oliguric: improving acute on chronc respi acidosis with respi failure with renal compensation rt pleural effusion with chest wall mass ? 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 overall poor pro gnosis, seen by palliative care Hypertension control with meds as ordered. Maintain hemodynamics stable. Avoid hypotension. Patient not on ACEI/ARB due to recent DAHLIA, hyperkalemic tendency Monitor Input/Output, daily weights and renal function with basic metabolic panel will defer use of [place] to heme/onc in view of her recent breast malignancy with concerns for mets. PRBC as needed continue with iron 325 mg, MVI and weekly Vit D supplement lytes as needed seen by cardio heme/onc and pulmonary IR eval for possible thoracocentesis which was refused by patient as per nursing staff. Dose meds/antibiotics for reduced GFR. Avoid fleets enema/magnesium based laxatives. Avoid nephrotoxins/NSAIDs/ iodinated contrast (unless needed emergently) Glycemic control. pt need to stop smoking Further work up/management as per primary team overall stable from renal perspective Thanks for allowing me to participate in care of your patient. Will follow patient with you. Please call if any Qs. had d/w team Dr Marco Antonio Chatman Office: [phone] Chief Complaint; SOB Reason for consult: CKD 3, DAHLIA HPI: Pt is a 57 F with hx of diabetes Mellitus ( years), hypertension (years) COPD/asthma, active smoker, breast cancer s/p surgery 2 years ago but didn't complete treatment now with mets, anemia, CKD stage 3 with baseline cr 1.8 mg/dL and AKIs (peaked cr 4) admitted with acute respi distress hypercapnic respi failure and intubated/extubated, now seen for CKD management Denies OTC/herbal meds or NSAIDs No recent iodinated contrast exposure. No obvious episodes of low BP. pt was recently admitted for same and she signed out AMA. ROS: pt is a poor historian and overall hx is limited from her. not much interactive Physical Examination: General Appearance: stable appearing. on o2 Vitals reviewed and noted as below Head; Atraumatic, normocephalic ENT: no ulcers no thrush. Tongue is midline. Oropharynx: no rash or ulcers. she is hard of hearing EYES: Pupils are equal, round and reactive to light accommodation. Eye muscles and extraocular movement intact. Sclera is anicteric. has some periorbital puffiness Neck; supple no lymphadenopathy, no thyromegaly or bruit Lungs: Improved respiratory rate/effort. Breath sounds reduced at rt side. Heart: normal rate. s1s2 normal. No rub or gallop. Extremities: no edema. No varicose veins Neurological: Patient is awake follow commands Skin: Warm and dry. Normal turgor. No rash. Palpitation: Normal elasticity for age Abdomen: Abdomen is soft. Bowel sounds +. There is no abdominal tenderness, no guarding/rigidity no organomegaly Psych: lack insight and flat affect/mood MSK: no joint tenderness or swelling. Digits and nails normal, no deformity : kidney or bladder not palpable Labs/imaging reviewed. Past medical history, past surgical history, family history, social history, allergy reviewed and noted as below Family hx: no hx of CKD. Rest non-contributory renal imaging: b/l cysts echo normal LVEF TSAt 26% ferritin 45 Serum FLC assay WNL ABDIRIZAK neg PTH 154 Vit D 17 Objective - Vital Signs/Intake and Output Vital Signs (last 24 hours): Temp Pulse Resp BP Pulse Ox 98.9 F 82 20 127/52 L 99 04/23/18 06:00 04/23/18 09:02 04/23/18 06:00 04/23/18 09:02 04/23/18 06:00 Intake and Output: 04/23/18 04/23/18 06:59 18:59 Intake Total 180 Output Total 500 Balance -320 - Medications Medications: Current Medications Albuterol Sulfate (Albuterol 0.083% Inhal Elvie (2.5 Mg/3 Ml) Ud) 2.5 mg INH [id number] [facility] Last Admin: 04/23/18 07:45 Dose: 2.5 mg Albuterol/Ipratropium (Duoneb 3 Mg/0.5 Mg (3 Ml) Ud) 3 ml IH Q2H PRN PRN Reason: Shortness of Breath Last Admin: 04/22/18 18:21 Dose: 3 ml Alprazolam (Xanax) 0.5 mg PO TID PRN; Protocol PRN Reason: Anxiety Last Admin: 04/22/18 09:21 Dose: 0.5 mg Arformoterol Tartrate (Brovana) 15 mcg IH [id number] [facility] Last Admin: 04/23/18 07:45 Dose: 15 mcg Aspirin (Aspirin Chewable) 81 mg PO DAILY [facility] Last Admin: 04/23/18 09:01 Dose: 81 mg Atorvastatin Calcium (Lipitor) 40 mg PO DAILY [facility] Last Admin: 04/23/18 09:01 Dose: 40 mg Bacitracin (Bacitracin) 0 gm TOP BID [facility] Last Admin: 04/20/18 17:27 Dose: 1 applic Benzocaine/Menthol (Cepacol Sore Throat) 1 vy MT Q4H PRN PRN Reason: Sore Throat Last Admin: 04/20/18 21:49 Dose: 1 vy Budesonide (Pulmicort Respules) 0.5 mg IH [id number] [facility] Last Admin: 04/23/18 07:45 Dose: 0.5 mg Dextrose (Dextrose 50% Inj) 0 ml IV STAT PRN; Protocol PRN Reason: Hypoglycemia Protocol Ergocalciferol (Drisdol 50,000 Intl Units Cap) 1 cap PO Q7D [facility] Last Admin: 04/18/18 17:45 Dose: 1 cap Ferrous Gluconate (Fergon) 324 mg PO DAILY [facility] Last Admin: 04/22/18 09:21 Dose: 324 mg Heparin Sodium (Porcine) (Heparin) 5,000 units SC Q8 [facility]; Protocol Last Admin: 04/23/18 06:31 Dose: 5,000 units Dextrose (Dextrose 5% In Water 1000 Ml) 1,000 mls @ 0 mls/hr IV .Q0M PRN; Protocol PRN Reason: Hypoglycemia Protocol Insulin Detemir (Levemir) 24 unit SC HS [facility] Insulin Human Lispro (Humalog) 12 units SC AC [facility] Last Admin: 04/23/18 09:00 Dose: 12 u Insulin Human Lispro (Humalog Low) 0 units SC ACHS [facility]; Protocol Metoprolol Tartrate (Lopressor) 25 mg PO BID [facility] Last Admin: 04/23/18 09:02 Dose: 25 mg Nicotine (Nicoderm Cq) 1 patch TD DAILY [facility] Last Admin: 04/23/18 09:13 Dose: 1 patch Pantoprazole Sodium (Protonix Ec Tab) 40 mg PO ACB [facility] Last Admin: 04/22/18 09:24 Dose: 40 mg Paroxetine HCl (Paxil) 5 mg PO HS [facility] Last Admin: 04/21/18 22:26 Dose: 5 mg Prednisone (Prednisone Tab) 40 mg PO DAILY [facility] Last Admin: 04/23/18 09:01 Dose: 40 mg Vitamin B Complex/Vit C/Folic Acid (Nephro-Enrrique) 1 tab PO 0800 [facility] Last Admin: 04/23/18 09:01 Dose: 1 tab - Labs Labs: 04/23/18 06:30 04/23/18 06:30 PT 11.9 SECONDS (9.4-12.5) 04/11/18 12:25 INR 1.05 04/11/18 12:25 APTT 25.3 Seconds (26.9-38.3) L 04/11/18 12:25
[2018-04-23] MEDS: Pantoprazole 40 mg EC Tab PO SCH (11:44)
[2018-04-23] MEDS: Bacitracin Ointment 30 GM TUBE TOP SCH ×2 (12:00→20:36)
--- NOTE | 2018-04-23 13:02 | PN ---
DATE: 04/23/2018 SUBJECTIVE: The patient was seen today. The patient presented to be sleepy, but easily arousable. When this verse writer introduced herself again, the patient asked this verse writer why she needs to be seen by psychiatrist. The patient made it clear that she does not want to be seen by psychiatrist any longer. The patient requested this verse writer to not come back and the patient reported that she feels fine. She denied any thoughts of harming herself or others. There is no agitation or aggression. I agree with the medical team with the fact that the patient is very hard to deal with because the patient has tendency of changing her decisions, but at the same time, most likely it is related to personality characteristics as well as low education level. OBJECTIVE: VITAL SIGNS: Seems to be stable. Temperature 98.5, pulse is 82, blood pressure 127/52, respirations 26 and saturation is 99. MEDICATIONS: Reviewed. Albuterol; Xanax 25 mg three times day as needed for anxiety, majority of the time, the patient takes only one dose a day. The patient is on Brovana, aspirin, Lipitor, bacitracin, Cepacol, Pulmicort, dextrose, Fergon, heparin, Levemir, Humalog, Lopressor, Nicoderm, Protonix, Paxil 5 mg at the nighttime, prednisone as well as vitamin B complex. LABORATORY DATA: Reviewed. Most recent was from today. Chemistry reviewed the urinalysis reviewed. MENTAL STATUS EXAM: The patient presented to be sleepy, easily arousable, intermittent eye contact. The patient is very hard of hearing. Mood described as fine. Affect was irritable and annoyed. Thought process very concrete. Thought content, the patient denied any psychosis. Denied any thoughts of harming herself or others. Denied intent or plan. Insight is improving. Impulse is are well-controlled. IMPRESSION: Most likely the patient has personality disorder. Rule out mood disorder due to general medical condition. PLAN: Continue current management. Continue current medication. Xanax was resumed. The patient requested psychiatrist to never to follow up with her. At present moment, the patient seems to be stable from the psychiatric standpoint. The patient is very hard to deal with because the patient is keep changing her decisions, which could be related to low educational level and personality disorder. Meanwhile, the patient posed no imminent danger to self or others. This verse writer will respect the patient's decision. This verse writer will sign off. Please reconsult if mental status will be worsening or new symptoms will appear. Thank you very much for letting me to participate in care of your patient. This verse writer will sign off. Beba Ersnt MD MTDD
--- NOTE | 2018-04-23 15:19 | PN ---
DATE: 04/23/2018 REFERRING PHYSICIAN: Darius Rdz MD. SUBJECTIVE: The patient is sitting up in bed, no acute distress. No overnight events reported. Son is at bedside. The patient noted coughing with moderate amount of sputum production. The patient reports she does have shortness of breath with exertion. No headache, rhinitis, chest pain, abdominal pain, nausea, vomiting, diarrhea, leg pain, or leg swelling reported. OBJECTIVE: GENERAL: No acute distress. VITAL SIGNS: Blood pressure 127/52, pulse 82, temperature 98.9, oxygen saturation 99 on nasal cannula. HEENT: Moist mucous membranes. Crowded airway. NECK: Supple. No JVD. CARDIOVASCULAR: S1 and S2. LUNGS: Decreased breath sounds on the right, scattered rhonchi. ABDOMEN: Soft and nontender. No distention. No organomegaly. EXTREMITIES: No bilateral lower extremity edema. NEUROLOGIC: Awake, alert, verbal, and follows commands. MEDICATIONS: Reviewed. Albuterol 2.5 mg inhalation every 6 hours, DuoNeb 3 mL inhalation every 2 hours p.r.n., Xanax 0.5 mg 3 times a day p.r.n., Brovana 15 mcg every 12 hours, aspirin 81 mg daily, Lipitor 40 mg daily, Bacitracin topically twice a day to affected area, Cepacol lozenges every 4 hours p.r.n., Pulmicort 0.5 mg inhalation every 12 hours, dextrose 5% in 1000 mL p.r.n., ergocalciferol 1 capsule 2000 units 1 cap weekly, ferrous gluconate 324 mg p.o. daily, heparin 5000 units subcutaneous every 8 hours, Levemir 20 units subcutaneous at bedtime, Humalog 12 units subcutaneous a.c., Humalog sliding scale a.c. and at bedtime, metoprolol titrate 25 mg twice a day, nicotine patch transdermally daily, Protonix 40 mg daily, Paxil 5 mg at bedtime, prednisone 40 mg daily, Nephro-Enrrique one tab daily. LABORATORY DATA: Reviewed. WBC 5.1, RBC 2.78, hemoglobin 8.1, hematocrit 26.6, and platelets 77. Sodium 139, POC glucose 240, random glucose 300, hemoglobin A1c 8.7, calcium 6.9, total bilirubin 0.4, AST 19, ALT 54, alkaline phosphatase 64, total protein 5.4, albumin 3.1, globulin 2.4, albumin globulin ratio 1.3, TSH 0.71. IMPRESSION AND PLAN: Chronic obstructive lung disease extensive, right lung mucous pulmonary atelectasis, pleural effusion, diabetes, chronic lung disease, history of breast cancer with progressive disease, urinary tract infection, obstructive sleep apnea syndrome. The patient presently refusing to use CPAP or BiPAP. Continue incentive spirometry, gastric prophylaxis, deep venous thrombosis prophylaxis. Continue chest physiotherapy, inhaled bronchodilators. Discussed with nursing staff to please suction patient - deep suctioning for help in removal of mucus. Nurses have agreed. Fall precautions. The patient seen and examined with Dr. Rucker. Discussed assessment and plan as described above. Thank you for this consult. We will follow with you. The patient seen and examined by Didier Dennis APN. Discussed assessment and plan as described above. Didier Dennis APN Lisa Rucker MD [facility]
[2018-04-23 16:50] LABS: CA 27.29 19 U/mL (<38)
--- NOTE | 2018-04-23 16:51 | CP.PCM.PN ---
<Aj Mays - Last Filed: 04/23/18 17:12> Subjective - Date & Time of Evaluation Date of Evaluation: 04/23/18 Time of Evaluation: 06:10 - Subjective Subjective: Pt seen and examined this morning at bedside. Per nursing, anxious but cooperative, NC 3L, [place] left ear. Objective - Vital Signs/Intake and Output Vital Signs (last 24 hours): Temp Pulse Resp BP Pulse Ox 98.3 F 83 20 121/49 L 100 04/23/18 14:00 04/23/18 14:00 04/23/18 14:00 04/23/18 14:00 04/23/18 14:00 Intake and Output: 04/23/18 04/23/18 06:59 18:59 Intake Total 180 720 Output Total 500 200 Balance -320 520 - Medications Medications: Current Medications Albuterol Sulfate (Albuterol 0.083% Inhal Elvie (2.5 Mg/3 Ml) Ud) 2.5 mg INH [id number] [facility] Last Admin: 04/23/18 13:25 Dose: 2.5 mg Albuterol/Ipratropium (Duoneb 3 Mg/0.5 Mg (3 Ml) Ud) 3 ml IH Q2H PRN PRN Reason: Shortness of Breath Last Admin: 04/22/18 18:21 Dose: 3 ml Alprazolam (Xanax) 0.5 mg PO TID PRN; Protocol PRN Reason: Anxiety Last Admin: 04/23/18 11:45 Dose: 0.5 mg Arformoterol Tartrate (Brovana) 15 mcg IH [id number] [facility] Last Admin: 04/23/18 07:45 Dose: 15 mcg Aspirin (Aspirin Chewable) 81 mg PO DAILY [facility] Last Admin: 04/23/18 09:01 Dose: 81 mg Atorvastatin Calcium (Lipitor) 40 mg PO DAILY [facility] Last Admin: 04/23/18 09:01 Dose: 40 mg Bacitracin (Bacitracin) 0 gm TOP BID [facility] Last Admin: 04/23/18 12:00 Dose: Not Given Benzocaine/Menthol (Cepacol Sore Throat) 1 vy MT Q4H PRN PRN Reason: Sore Throat Last Admin: 04/20/18 21:49 Dose: 1 vy Budesonide (Pulmicort Respules) 0.5 mg IH [id number] [facility] Last Admin: 04/23/18 07:45 Dose: 0.5 mg Dextrose (Dextrose 50% Inj) 0 ml IV STAT PRN; Protocol PRN Reason: Hypoglycemia Protocol Ergocalciferol (Drisdol 50,000 Intl Units Cap) 1 cap PO Q7D [facility] Last Admin: 04/18/18 17:45 Dose: 1 cap Ferrous Gluconate (Fergon) 324 mg PO DAILY [facility] Last Admin: 04/23/18 13:45 Dose: 324 mg Heparin Sodium (Porcine) (Heparin) 5,000 units SC Q8 [facility]; Protocol Last Admin: 04/23/18 13:45 Dose: 5,000 units Dextrose (Dextrose 5% In Water 1000 Ml) 1,000 mls @ 0 mls/hr IV .Q0M PRN; Protocol PRN Reason: Hypoglycemia Protocol Insulin Detemir (Levemir) 34 unit SC HS [facility] Insulin Human Lispro (Humalog) 14 units SC AC [facility] Metoprolol Tartrate (Lopressor) 25 mg PO BID [facility] Last Admin: 04/23/18 09:02 Dose: 25 mg Nicotine (Nicoderm Cq) 1 patch TD DAILY [facility] Last Admin: 04/23/18 09:13 Dose: 1 patch Pantoprazole Sodium (Protonix Ec Tab) 40 mg PO ACB [facility] Last Admin: 04/23/18 11:44 Dose: 40 mg Paroxetine HCl (Paxil) 5 mg PO HS [facility] Last Admin: 04/21/18 22:26 Dose: 5 mg Prednisone (Prednisone Tab) 40 mg PO DAILY [facility] Last Admin: 04/23/18 09:01 Dose: 40 mg Vitamin B Complex/Vit C/Folic Acid (Nephro-Enrrique) 1 tab PO 0800 [facility] Last Admin: 04/23/18 09:01 Dose: 1 tab - Labs Labs: 04/23/18 06:30 04/23/18 06:30 PT 11.9 SECONDS (9.4-12.5) 04/11/18 12:25 INR 1.05 04/11/18 12:25 APTT 25.3 Seconds (26.9-38.3) L 04/11/18 12:25 - Head Exam Head Exam: ATRAUMATIC, NORMOCEPHALIC - Eye Exam Eye Exam: EOMI - ENT Exam ENT Exam: Mucous Membranes Moist - Neck Exam Neck Exam: Full ROM - Respiratory Exam Respiratory Exam: Decreased Breath Sounds, NORMAL BREATHING PATTERN. absent: Accessory Muscle Use - Cardiovascular Exam Cardiovascular Exam: RRR, +S1, +S2. absent: Diastolic murmur, Murmur - GI/Abdominal Exam GI & Abdominal Exam: Soft, Normal Bowel Sounds - Extremities Exam Extremities Exam: Full ROM. absent: Pedal Edema - Neurological Exam Neurological Exam: Alert, Awake, Oriented x3 - Psychiatric Exam Psychiatric exam: Normal Affect, Normal Mood - Skin Skin Exam: Dry, Intact, Warm Assessment and Plan - Assessment and Plan (Free Text) Assessment: Pt is a 57 yo female with a PMH of Breast CA, asthma, COPD, anxiety, DM, and a right pleural effusion who presented with acute hypercapnic respiratory failure, subsequently extubated and transferred to medicine floors. Plan: Acute Hypercapnic Respiratory Failure - Likely 2/2 tobacco use in the setting of her known asthma and COPD - duonebs, prednisone, pulmicort, brovana - Chest CT 04/20/18: progression of atelectasis now invovling the entire right lung and right sided effusion. Rule out mucous plug - IR consulted, - Pulm, extensive COPD, pleural effusion, DM, refusing BIPAP/CPAP, - Cardio consulted Disorganized Thoughts - Psyc rec, pt most likely has a personality disorder, pt request that a psychiatriest never follow up with her, seems to be stable from a pysc standpoint, poses no imminent danger to herself or others, psyc is signing off Excoriations on BL UE - bacitracin ointment Anxiety - Paxil - psyc, discontinue benzos due to multiple overdoses DM - HA1C 8.7 - levemir 34 HS - lispro 14 units AC - accuchecks - ISS HCAP - Strep pneumo not detected, legionella negative, MRSA negative, blood cultures NGTD - ID following, monitor off antibiotics DAHLIA on CKD - BUN 70 - Cr 1.7 - Likely ATN in setting of diabetic and hypertensive chronic kidney disease - Nephrology, cont HTN control HLD - lipitor 40mg HTN - metoprolol tartrate 25 BID Breast CA - CA15-3, 18.8 - CA27.29, 19 - CEA 31.9 - Heme/ Onc, 1 dose of darbapoetin 40mcg sc on 04/13/18 - we will continue this once a week, pt advised to see an oncologist as an out pt for her breast CA, she has been advised this before on previous admissions - Palliative care, tried to discuss plan for discharge [facility] vs home. She did not answer my question nor did she want to engage in conversation. Her children were at beside. They stated they will do what ever their mother wants. Patient met with SW and refused BECKY, stated she wants to go home Tobacco abuse - Counseled, pt amendable to cessation - nicotine patch Ppx - protonix - heparin Pt seen, examined, assessment and plan discussed with Dr Kajal Mays PGY1, Internal Medicine Resident <Darius Rdz - Last Filed: 04/26/18 07:42> Objective - Vital Signs/Intake and Output Vital Signs (last 24 hours): Temp Pulse Resp BP Pulse Ox 98.4 F 106 H 20 137/61 98 04/25/18 23:02 04/25/18 23:02 04/25/18 23:02 04/25/18 23:02 04/25/18 23:02 Intake and Output: 04/26/18 04/26/18 06:59 18:59 Intake Total 720 Balance 720 - Medications Medications: Current Medications Albuterol Sulfate (Albuterol 0.083% Inhal Elvie (2.5 Mg/3 Ml) Ud) 2.5 mg INH [id number] [facility] Last Admin: 04/26/18 01:28 Dose: 2.5 mg Albuterol/Ipratropium (Duoneb 3 Mg/0.5 Mg (3 Ml) Ud) 3 ml IH Q2H PRN PRN Reason: Shortness of Breath Last Admin: 04/24/18 00:10 Dose: 3 ml Alprazolam (Xanax) 0.5 mg PO TID PRN; Protocol PRN Reason: Anxiety Last Admin: 04/25/18 17:54 Dose: 0.5 mg Arformoterol Tartrate (Brovana) 15 mcg IH [id number] [facility] Last Admin: 04/25/18 19:34 Dose: 15 mcg Aspirin (Aspirin Chewable) 81 mg PO DAILY [facility] Last Admin: 04/25/18 09:33 Dose: Not Given Atorvastatin Calcium (Lipitor) 40 mg PO DAILY [facility] Last Admin: 04/25/18 09:33 Dose: Not Given Bacitracin (Bacitracin) 0 gm TOP BID [facility] Last Admin: 04/25/18 11:00 Dose: Not Given Benzocaine/Menthol (Cepacol Sore Throat) 1 vy MT Q4H PRN PRN Reason: Sore Throat Last Admin: 04/20/18 21:49 Dose: 1 vy Budesonide (Pulmicort Respules) 0.5 mg IH [id number] [facility] Last Admin: 04/25/18 19:34 Dose: 0.5 mg Dextrose (Dextrose 50% Inj) 0 ml IV STAT PRN; Protocol PRN Reason: Hypoglycemia Protocol Ergocalciferol (Drisdol 50,000 Intl Units Cap) 1 cap PO Q7D [facility] Last Admin: 04/25/18 18:06 Dose: 1 cap Ferrous Gluconate (Fergon) 324 mg PO DAILY [facility] Last Admin: 04/25/18 09:33 Dose: Not Given Heparin Sodium (Porcine) (Heparin) 5,000 units SC Q8 [facility]; Protocol Last Admin: 04/26/18 05:49 Dose: 5,000 units Dextrose (Dextrose 5% In Water 1000 Ml) 1,000 mls @ 0 mls/hr IV .Q0M PRN; Protocol PRN Reason: Hypoglycemia Protocol Insulin Detemir (Levemir) 44 unit SC [facility] Last Admin: 04/25/18 22:31 Dose: 44 units Insulin Human Lispro (Humalog) 14 units SC AC [facility] Last Admin: 04/25/18 18:03 Dose: 14 units Insulin Human Lispro (Humalog Med) 0 units SC ACHS [facility]; Protocol Last Admin: 04/25/18 18:03 Dose: 1 units Metoprolol Tartrate (Lopressor) 25 mg PO BID [facility] Last Admin: 04/25/18 18:02 Dose: 25 mg Nicotine (Nicoderm Cq) 1 patch TD DAILY [facility] Last Admin: 04/25/18 18:05 Dose: 1 patch Pantoprazole Sodium (Protonix Ec Tab) 40 mg PO ACB [facility] Last Admin: 04/25/18 09:34 Dose: Not Given Paroxetine HCl (Paxil) 5 mg PO HS [facility] Last Admin: 04/25/18 21:32 Dose: 5 mg Prednisone (Prednisone Tab) 40 mg PO DAILY [facility] Last Admin: 02/06/19 18:01 Dose: 40 mg Vitamin B Complex/Vit C/Folic Acid (Nephro-Enrrique) 1 tab PO 0800 [facility] Last Admin: 04/25/18 09:33 Dose: Not Given - Labs Labs: 04/26/18 07:00 04/25/18 07:00 PT 11.9 SECONDS (9.4-12.5) 04/11/18 12:25 INR 1.05 04/11/18 12:25 APTT 25.3 Seconds (26.9-38.3) L 04/11/18 12:25 Attending/Attestation - Attestation I have personally seen and examined this patient.: Yes I have fully participated in the care of the patient.: Yes I have reviewed all pertinent clinical information, including history, physical exam and plan: Yes Notes (Text): 04/26/18 07:33 Attending note; Patient seen and examined with resident. Patient is alert and awake. refused to talk to psychiatrist. Agitated on and off. Later listened to our reasoning. Currently on oxygen. Tolerating diet. Still complaining of cough and shortness of breath on exertion. Getting DuoNeb [id number]. Patient is a 57 year old female with past medical history significant for COPD, asthma, untreated breast cancer, anemia, anxiety, and recurrent UTIs that presented to the emergency room for respiratory failure. 1. Pleural effusion/Complete opacification of right hemithorax. Chest xray showed complete opacification of right hemithorax. CT chest showed significant progression of atelectasis no involving the entire right lung with right-sided effusion has increased as well, rule out mucous plugging volume loss right hemithorax with shift of the mediastinum from [id number]; small left- sided effusion and mild left basilar atelectasis; scattered patchy groundglass opacity seen in the left lower lobe. we will follow up with IR. 2. Acute hypercapnic respiratory failure. S/P intubation and extubation. Continue Brovana and Pulmicort. Continue Prednisone. Patient refusing BiPAP on and off. 3. Acute on CKD: . Barrel Endshake Adjuster evaluation appreciated. creatinine is 1.7.. Continue nehprovite. 4. Noncompliance by refusing service. Patient refusing psychiatrist evaluation. 5. Healthcare associated pneumonia. Patient is s/p treatment with cefepime. Leukocytosis resolved. Afebrile. Blood cultures with no growth. Procalcitonin 0.55. Influenza negative, Urine for legionella negative. Urine for strep pneumoniae negative. 6. Anemia. Likely secondary to malignancy and chronic disease. S/P 2 units PRBCs. HB is 8.0. needs close outpatient follow up. 7. DM2 with hyperglycemia. Continue insulin sliding scale. Continue Levemir at bedtime. Continue lispro AC. Endocrinology consulted, follow up recommendations. Continue to monitor accuchecks. Hgb AIC was 8.8 on 04/03/18. 8. Essential hypertension. Continue Metoporolol. 9. Hyperlipidemia. Continue lipitor. 10. History of breast cancer. S/P 1 cycle of chemo, patient refused chemo and surgery post one cycle. Will need repeat Chest CT in one month per hem/onc. Hem/onc following, recommendations appreciated. 11. Tobacco abuse. Patient was counseled at length on tobacco cessation. Continue with nicotine patch. 12. Depression and Anxiety. Continue Paxil 5 mg at bedtime. on xanax prn. Patient with thew long standing history of benzo dependency. prognosis is poor due to multiple medical issues and non compliance. upon discharge the patient will follow up with PMD Dr. Sosa.
[2018-04-23] MEDS ORDERED: Insulin Detemir 100 units/ml Vial (Levemir) SC SCH ×2 (22:00)
--- NOTE | 2018-04-23 22:54 | PN ---
DATE: 04/23/2018 LOCATION: Room 576, bed 2. REASON FOR CONSULTATION: Status post respiratory failure, anemia, status post intubation, successful extubation, history of tobacco abuse, renal insufficiency, diabetes, anemia. SUBJECTIVE: The patient denies any chest pain. Breathing is improving. The patient denies any palpitations. The patient had received previously blood transfusion for anemia. The patient also being treated for urinary tract infection. PHYSICAL EXAMINATION: VITAL SIGNS: Blood pressure 127/52, respiratory rate 20, pulse 82, temperature 98.9. HEENT: Head is normocephalic. Eyes; pupil normal. Conjunctivae pale. NECK: JVP low. Carotids equal. THORAX: AP diameter normal. LUNGS: No significant rales. Slightly diminished breath sound on the right side. CARDIOVASCULAR: S1 and S2. ABDOMEN: Soft. No tenderness. No organomegaly. EXTREMITIES: No clubbing. No cyanosis. LABORATORY DATA: WBC 5.1, hemoglobin 8.1, hematocrit 26.6, platelets 77. Sodium 139, potassium 3.8, BUN 70, creatinine 1.7, random sugar 214, calcium 6.9. AST and ALT normal. Total protein 5.4, albumin 3.1, TSH 0.71. DIAGNOSES: Respiratory failure, status post intubation. Status post successful extubation and mucous plugging with atelectasis and white-out of the right lung, history of severe anemia, status post blood transfusion, urinary tract infection, renal dysfunction, history of breast carcinoma, status post blood transfusion for anemia. PLAN: The patient admitted to using CPAP. Frequent suctioning has been ordered by Dr. Rucker, Pulmonary due to the patient having mucous plug and atelectasis. The patient is on aspirin 81 mg daily. The patient was given calcium gluconate and has been again ordered for today calcium gluconate with low potassium, ferrous sulfate 324 mg p.o. daily, DuoNeb nebulizer therapy, Heparin 5000 units subcutaneous every 8 hours and insulin as ordered, Lipitor 40 mg daily, metoprolol 25 mg b.i.d., prednisone 40 mg p.o. daily, Protonix 40 mg daily, Xanax 0.5 mg p.o. t.i.d. p.r.n. We will continue present therapy. We will follow with you. Lisa Jones MD
[2018-04-24] MEDS: Albuterol-Ipratrop 3 mg / 0.5 (3 ml) UD IH PRN (00:10)
--- NOTE | 2018-04-24 00:46 | PN ---
DATE: 04/23/2018 ENDO FOLLOWUP NOTE LOCATION: Room 576. SUBJECTIVE: This is a 57-year-old female with recent admission for acute respiratory failure and has since then improved clinically and hemodynamically as noted thereof and is also being followed closely for metabolic management because of recent hyperglycemic accelerations as noted thereof. LABORATORY DATA: Her glucose levels are fluctuating and have ranged from 214 to 295 and 399 mg/dL today as noted. Her A1c is 8.7% which is also elevated and indicative of suboptimal metabolic control of her diabetic condition even prior to this admission. Her chemistry showed a BUN of 70, sodium 139, potassium 3.8, chloride 99, CO2 is 35, glucose is 300 and creatinine is 1.7. ASSESSMENT: This is a 57-year-old female with uncontrolled and decompensated type 2 insulin-requiring diabetes, presenting here with hyperosmolar hyperglycemic state and dehydration and is now being followed closely for metabolic management. PLAN OF MANAGEMENT: We will modify once again her basal and bolus insulin regimen as ordered in detail. We will increase the Humalog to 14 units subcu t.i.d. before meals to start today as ordered. We will increase her basal insulin with Levemir to be given as 34 units subcu at bedtime daily to start tonight. We will continue the low-dose correction scale using Humalog insulin as given. We will obtain serial chemistries and supplement accordingly needed. We will follow. Ernestina Hawkins MD
[2018-04-24] MEDS ORDERED: Insulin Regular 1 UNITS/0.01 ML ML SC STA (02:40)
[2018-04-24] MEDS: Albuterol 0.083% Inhal Sol (2.5 mg/3 mL) UD INH SCH ×4 (04:45→20:00)
[2018-04-24] MEDS: Insulin Lispro 1 UNITS/0.01 ML SC SCH ×4 (06:42→17:45)
[2018-04-24] MEDS: Arformoterol 15 mcg/2 ml Inh Sol IH SCH ×2 (07:26→20:00)
[2018-04-24] MEDS: Budesonide 0.5 mg/2 ml Inhal Susp UD IH SCH ×2 (07:27→20:00)
[2018-04-24 07:40] LABS: EOS % 0.2 % (1.5-5.0); HEMOGLOBIN 7.8 g/dL (12.0-16.0); LYMPH # 0.4 (1.2-3.4); LYMPH % 10.2 % (22.0-35.0); MEAN CORPUSCULAR HEMOGLOBIN 28.6 pg (25.0-35.0); MEAN CORPUSCULAR HGB CONC 29.8 g/dl (31.0-37.0); MEAN PLATELET VOLUME 11.6 fl (7.0-11.0); MONO # 0.3 (0.1-0.6); RBC 2.73 10^6/uL (3.5-6.1); RED CELL DISTRIBUTION WIDTH 18.9 % (11.5-14.5); WHITE BLOOD COUNT 4.3 10^3/uL (4.5-11.0)
[2018-04-24 07:54] LABS: ALB/GLOB RATIO 1.3 (1.1-1.8); ALBUMIN 2.9 g/dL (3.0-4.8); CALCIUM 7.1 mg/dL (8.4-10.5)
[2018-04-24] MEDS ORDERED: Insulin Lispro 1 UNITS/0.01 ML SC STA (09:50)
[2018-04-24] MEDS: Pantoprazole 40 mg EC Tab PO SCH (10:26)
[2018-04-24] MEDS: Multivitamin Vitamin B Complex (Nephro-Vite) Tab PO SCH (10:26)
--- NOTE | 2018-04-24 11:16 | PN ---
DATE: 04/24/2018 PULMONARY PROGRESS NOTE REFERRING PHYSICIAN: Darius Rdz MD SUBJECTIVE: The patient is lying in bed. No acute distress. The patient does have cough, at times not productive, shortness of breath with exertion. No headache, rhinitis, chest pain, abdominal pain, nausea, vomiting, diarrhea, leg pain or leg swelling reported. OBJECTIVE: GENERAL: No acute distress. VITAL SIGNS: Blood pressure 129/50, pulse 80, temperature 98.2, oxygen saturation 100% on nasal cannula. HEENT: Moist mucous membranes. Crowded airway. NECK: Supple. No JVD. CARDIOVASCULAR: S1 and S2. LUNGS: Scattered rhonchi, decreased breath sounds on the right. ABDOMEN: Soft and nontender. No distention. No organomegaly. EXTREMITIES: No bilateral lower extremity edema. NEUROLOGIC: Awake, alert, and verbal. Hard of hearing. Able to follow commands. MEDICATIONS: Reviewed. Albuterol 2.5 mg inhalation every 6 hours, DuoNeb 3 mL every 2 hours p.r.n., Xanax 0.5 mg 3 times a day p.r.n., Brovana 15 mcg every 12 hours, aspirin 81 mg daily, Lipitor 40 mg daily, Bacitracin topically twice a day, Cepacol throat lozenges every 4 hours p.r.n., Pulmicort 0.5 mg inhalation every 12 hours, ergocalciferol 50,000 units weekly, ferrous gluconate 324 mg daily, heparin 5000 units subcutaneous every 8 hours, Levemir 34 units at bedtime, Humalog 14 units subcutaneous a.c., Humalog sliding scale a.c. and at bedtime, metoprolol titrate 25 mg twice a day, nicotine patch transdermally daily, Protonix 40 mg daily, Paxil 5 mg at bedtime, prednisone 40 mg daily, Nephro-Enrrique one tab daily. LABORATORY DATA: WBC 4.3, RBC 2.73, hemoglobin 7.8, hematocrit 26.2, and platelets 85. Sodium 140, potassium 3.6, chloride 102, carbon dioxide 34, anion gap 8, BUN 69, creatinine 1.7, GFR 31, POC glucose 326 and random glucose 343, calcium 7.1, total bilirubin 0.3, AST 14, ALT 46, alkaline phosphatase 71, total protein 5.1, albumin 2.9, globulin 2.2, albumin-globulin ratio 1.3. IMPRESSION AND PLAN: Chronic obstructive lung disease extensive, right lung mucous plugging atelectasis, pleural effusion, diabetes, chronic lung disease, history of breast cancer with progressive disease, urinary tract infection, obstructive sleep apnea syndrome. The patient presently refusing continuous positive airway pressure/bilevel positive airway pressure use. The patient for possible thoracentesis. Continue incentive spirometry, gastric prophylaxis, deep venous thrombosis prophylaxis. Continue pulmonary toileting, chest physiotherapy, inhaled bronchodilators. Continue deep suctioning, fall precautions. The patient seen and examined with Dr. Rucker. Discussed assessment and plan as described above. This patient seen and examined by Didier Dennis APN. Discussed assessment and plan as described above. Thank you for this consult. We will follow with you. Didier Dennis APN Lisa Rucker MD
[2018-04-24] MEDS: Insulin Lispro (humaLOG) MEDIUM Coverage SC SCH ×3 (12:20→22:35)
[2018-04-24] MEDS: Bacitracin Ointment 30 GM TUBE TOP SCH ×2 (12:29→18:41)
--- NOTE | 2018-04-24 12:42 | CP.PCM.PN ---
Subjective - Date & Time of Evaluation Date of Evaluation: 04/24/18 Time of Evaluation: 12:42 - Subjective Subjective: Nephrology Consultation Note: Assessment: stable DAHLIA likely ATN, non-oliguric: improving acute on chronc respi acidosis with respi failure with renal compensation rt pleural effusion with chest wall mass ? 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 overall poor pro gnosis, seen by palliative care Hypertension control with meds as ordered. Maintain hemodynamics stable. Avoid hypotension. Patient not on ACEI/ARB due to recent DAHLIA, hyperkalemic tendency Monitor Input/Output, daily weights and renal function with basic metabolic panel will defer use of ORV[place]LE to heme/onc in view of her recent breast malignancy with concerns for mets. PRBC as needed continue with iron 325 mg, MVI and weekly Vit D supplement lytes as needed seen by cardio heme/onc and pulmonary IR eval for possible thoracocentesis which was refused by patient as per nursing staff. Dose meds/antibiotics for reduced GFR. Avoid fleets enema/magnesium based laxatives. Avoid nephrotoxins/NSAIDs/ iodinated contrast (unless needed emergently) Glycemic control. pt need to stop smoking Further work up/management as per primary team overall stable from renal perspective Thanks for allowing me to participate in care of your patient. Will follow patient with you. Please call if any Qs. had d/w team Dr Marco Antonio Chatman Office: [phone] Chief Complaint; SOB Reason for consult: CKD 3, DAHLIA HPI: Pt is a 57 F with hx of diabetes Mellitus ( years), hypertension (years) COPD/asthma, active smoker, breast cancer s/p surgery 2 years ago but didn't complete treatment now with mets, anemia, CKD stage 3 with baseline cr 1.8 mg/dL and AKIs (peaked cr 4) admitted with acute respi distress hypercapnic respi failure and intubated/extubated, now seen for CKD management Denies OTC/herbal meds or NSAIDs No recent iodinated contrast exposure. No obvious episodes of low BP. pt was recently admitted for same and she signed out AMA. ROS: pt is a poor historian and overall hx is limited from her. not much interactive Physical Examination: General Appearance: stable appearing. on o2 Vitals reviewed and noted as below Head; Atraumatic, normocephalic ENT: no ulcers no thrush. Tongue is midline. Oropharynx: no rash or ulcers. she is hard of hearing EYES: Pupils are equal, round and reactive to light accommodation. Eye muscles and extraocular movement intact. Sclera is anicteric. has some periorbital puffiness Neck; supple no lymphadenopathy, no thyromegaly or bruit Lungs: Improved respiratory rate/effort. Breath sounds reduced at rt side. Heart: normal rate. s1s2 normal. No rub or gallop. Extremities: no edema. No varicose veins Neurological: Patient is awake follow commands Skin: Warm and dry. Normal turgor. No rash. Palpitation: Normal elasticity for age Abdomen: Abdomen is soft. Bowel sounds +. There is no abdominal tenderness, no guarding/rigidity no organomegaly Psych: lack insight and flat affect/mood MSK: no joint tenderness or swelling. Digits and nails normal, no deformity : kidney or bladder not palpable Labs/imaging reviewed. Past medical history, past surgical history, family history, social history, allergy reviewed and noted as below Family hx: no hx of CKD. Rest non-contributory renal imaging: b/l cysts echo normal LVEF TSAt 26% ferritin 45 Serum FLC assay WNL ABDIRIZAK neg PTH 154 Vit D 17 Objective - Vital Signs/Intake and Output Vital Signs (last 24 hours): Temp Pulse Resp BP Pulse Ox 98.2 F 90 20 116/51 L 100 04/24/18 06:00 04/24/18 10:04 04/24/18 06:00 04/24/18 10:04 04/24/18 06:00 Intake and Output: 04/24/18 04/24/18 06:59 18:59 Intake Total 720 Balance 720 - Medications Medications: Current Medications Albuterol Sulfate (Albuterol 0.083% Inhal Elvie (2.5 Mg/3 Ml) Ud) 2.5 mg INH [id number] LUCIANO Last Admin: 04/24/18 07:26 Dose: 2.5 mg Albuterol/Ipratropium (Duoneb 3 Mg/0.5 Mg (3 Ml) Ud) 3 ml IH Q2H PRN PRN Reason: Shortness of Breath Last Admin: 04/24/18 00:10 Dose: 3 ml Alprazolam (Xanax) 0.5 mg PO TID PRN; Protocol PRN Reason: Anxiety Last Admin: 04/24/18 10:26 Dose: 0.5 mg Arformoterol Tartrate (Brovana) 15 mcg IH [id number] [facility] Last Admin: 04/24/18 07:26 Dose: 15 mcg Aspirin (Aspirin Chewable) 81 mg PO DAILY [facility] Last Admin: 04/24/18 10:03 Dose: 81 mg Atorvastatin Calcium (Lipitor) 40 mg PO DAILY [facility] Last Admin: 04/24/18 10:03 Dose: 40 mg Bacitracin (Bacitracin) 0 gm TOP BID [facility] Last Admin: 04/24/18 12:29 Dose: Not Given Benzocaine/Menthol (Cepacol Sore Throat) 1 vy MT Q4H PRN PRN Reason: Sore Throat Last Admin: 04/20/18 21:49 Dose: 1 vy Budesonide (Pulmicort Respules) 0.5 mg IH [id number] [facility] Last Admin: 04/24/18 07:27 Dose: 0.5 mg Dextrose (Dextrose 50% Inj) 0 ml IV STAT PRN; Protocol PRN Reason: Hypoglycemia Protocol Ergocalciferol (Drisdol 50,000 Intl Units Cap) 1 cap PO Q7D [facility] Last Admin: 04/18/18 17:45 Dose: 1 cap Ferrous Gluconate (Fergon) 324 mg PO DAILY [facility] Last Admin: 04/24/18 10:03 Dose: 324 mg Heparin Sodium (Porcine) (Heparin) 5,000 units SC Q8 [facility]; Protocol Last Admin: 04/24/18 06:17 Dose: 5,000 units Dextrose (Dextrose 5% In Water 1000 Ml) 1,000 mls @ 0 mls/hr IV .Q0M PRN; Protocol PRN Reason: Hypoglycemia Protocol Insulin Detemir (Levemir) 34 unit SC HS [facility] Last Admin: 04/23/18 23:37 Dose: 34 units Insulin Human Lispro (Humalog) 14 units SC AC [facility] Last Admin: 04/24/18 12:19 Dose: 14 u Insulin Human Lispro (Humalog Med) 0 units SC ACHS [facility]; Protocol Last Admin: 04/24/18 12:20 Dose: 3 units Metoprolol Tartrate (Lopressor) 25 mg PO BID [facility] Last Admin: 04/24/18 10:04 Dose: 25 mg Nicotine (Nicoderm Cq) 1 patch TD DAILY [facility] Last Admin: 04/24/18 10:05 Dose: 1 patch Pantoprazole Sodium (Protonix Ec Tab) 40 mg PO ACB [facility] Last Admin: 04/24/18 10:26 Dose: 40 mg Paroxetine HCl (Paxil) 5 mg PO HS [facility] Last Admin: 04/23/18 23:36 Dose: 5 mg Prednisone (Prednisone Tab) 40 mg PO DAILY [facility] Last Admin: 04/24/18 10:03 Dose: 40 mg Vitamin B Complex/Vit C/Folic Acid (Nephro-Enrrique) 1 tab PO 0800 [facility] Last Admin: 04/24/18 10:26 Dose: 1 tab - Labs Labs: 04/24/18 07:00 04/24/18 07:00 PT 11.9 SECONDS (9.4-12.5) 04/11/18 12:25 INR 1.05 04/11/18 12:25 APTT 25.3 Seconds (26.9-38.3) L 04/11/18 12:25
--- NOTE | 2018-04-24 14:02 | CP.PCM.PN ---
Subjective - Date & Time of Evaluation Date of Evaluation: 04/24/18 Time of Evaluation: 13:55 - Subjective Subjective: PGY-2 heme/onc progress note for Dr Gleason No acute events noted overnight. Resting comfortably on nasal cannula. More cooperative today. She denied pain, sob, bleeding. Stated she wanted her xanax. Objective - Vital Signs/Intake and Output Vital Signs (last 24 hours): Temp Pulse Resp BP Pulse Ox 98.2 F 90 20 116/51 L 100 04/24/18 06:00 04/24/18 10:04 04/24/18 06:00 04/24/18 10:04 04/24/18 06:00 Intake and Output: 04/24/18 04/24/18 06:59 18:59 Intake Total 720 Balance 720 - Medications Medications: Current Medications Albuterol Sulfate (Albuterol 0.083% Inhal Elvie (2.5 Mg/3 Ml) Ud) 2.5 mg INH [id number] [facility] Last Admin: 04/24/18 13:42 Dose: 2.5 mg Albuterol/Ipratropium (Duoneb 3 Mg/0.5 Mg (3 Ml) Ud) 3 ml IH Q2H PRN PRN Reason: Shortness of Breath Last Admin: 04/24/18 00:10 Dose: 3 ml Alprazolam (Xanax) 0.5 mg PO TID PRN; Protocol PRN Reason: Anxiety Last Admin: 04/24/18 10:26 Dose: 0.5 mg Arformoterol Tartrate (Brovana) 15 mcg IH [id number] [facility] Last Admin: 04/24/18 07:26 Dose: 15 mcg Aspirin (Aspirin Chewable) 81 mg PO DAILY [facility] Last Admin: 04/24/18 10:03 Dose: 81 mg Atorvastatin Calcium (Lipitor) 40 mg PO DAILY [facility] Last Admin: 04/24/18 10:03 Dose: 40 mg Bacitracin (Bacitracin) 0 gm TOP BID [facility] Last Admin: 04/24/18 12:29 Dose: Not Given Benzocaine/Menthol (Cepacol Sore Throat) 1 vy MT Q4H PRN PRN Reason: Sore Throat Last Admin: 04/20/18 21:49 Dose: 1 vy Budesonide (Pulmicort Respules) 0.5 mg IH [id number] [facility] Last Admin: 04/24/18 07:27 Dose: 0.5 mg Dextrose (Dextrose 50% Inj) 0 ml IV STAT PRN; Protocol PRN Reason: Hypoglycemia Protocol Ergocalciferol (Drisdol 50,000 Intl Units Cap) 1 cap PO Q7D [facility] Last Admin: 04/18/18 17:45 Dose: 1 cap Ferrous Gluconate (Fergon) 324 mg PO DAILY [facility] Last Admin: 04/24/18 10:03 Dose: 324 mg Heparin Sodium (Porcine) (Heparin) 5,000 units SC Q8 [facility]; Protocol Last Admin: 04/24/18 06:17 Dose: 5,000 units Dextrose (Dextrose 5% In Water 1000 Ml) 1,000 mls @ 0 mls/hr IV .Q0M PRN; Protocol PRN Reason: Hypoglycemia Protocol Insulin Detemir (Levemir) 40 unit SC HS [facility] Insulin Human Lispro (Humalog) 14 units SC AC [facility] Last Admin: 04/24/18 12:19 Dose: 14 u Insulin Human Lispro (Humalog Med) 0 units SC ACHS [facility]; Protocol Last Admin: 04/24/18 12:20 Dose: 3 units Metoprolol Tartrate (Lopressor) 25 mg PO BID [facility] Last Admin: 04/24/18 10:04 Dose: 25 mg Nicotine (Nicoderm Cq) 1 patch TD DAILY [facility] Last Admin: 04/24/18 10:05 Dose: 1 patch Pantoprazole Sodium (Protonix Ec Tab) 40 mg PO ACB [facility] Last Admin: 04/24/18 10:26 Dose: 40 mg Paroxetine HCl (Paxil) 5 mg PO HS [facility] Last Admin: 04/23/18 23:36 Dose: 5 mg Prednisone (Prednisone Tab) 40 mg PO DAILY [facility] Last Admin: 04/24/18 10:03 Dose: 40 mg Vitamin B Complex/Vit C/Folic Acid (Nephro-Enrrique) 1 tab PO 0800 [facility] Last Admin: 04/24/18 10:26 Dose: 1 tab - Labs Labs: 04/24/18 07:00 PT 11.9 SECONDS (9.4-12.5) 04/11/18 12:25 INR 1.05 04/11/18 12:25 APTT 25.3 Seconds (26.9-38.3) L 04/11/18 12:25 - Additional Findings Additional findings: - Constitutional Appears: No Acute Distress, Older Than Stated Age - Head Exam Head Exam: ATRAUMATIC, NORMAL INSPECTION - Eye Exam Eye Exam: EOMI, Normal appearance, PERRL. absent: Scleral icterus - ENT Exam ENT Exam: Mucous Membranes Moist - Respiratory Exam Respiratory Exam: Decreased Breath Sounds, Rales Additional comments: rales R>L - Cardiovascular Exam Cardiovascular Exam: normal rate, REGULAR RHYTHM, +S1, +S2. absent: JVD - GI/Abdominal Exam GI & Abdominal Exam: Normal Bowel Sounds, Soft. absent: Tenderness - Extremities Exam Extremities exam: Positive for: normal capillary refill, normal inspection, pedal pulses present - Neurological Exam Neurological exam: Alert, Oriented x3 - Psychiatric Exam Psychiatric exam: Anxious - Skin Skin Exam: Normal Color, Warm Assessment and Plan - Assessment and Plan (Free Text) Plan: Mrs Granado is a 57 year old female with a PMHx history of breast cancer, severe COPD, anxiety, pneumonia, pleural effusions, CKD, xanax abuse, hx of non- compliance, hx of xanax/oxycodone overose, who presented to the ED in respiratory distress while on non-rebreather. Patient was then intubated while in ED due to lack of airway protection. Hematology/oncology has been consulted for anemia and her hx of left-sided breast cancer. Anemia -likely anemia of chronic disease 2/2 to ckd -Hgb on admission: 7.3 -> today 9.4 * chronically anemic since 02/2017 * transfused 2u pRBCs on 04/12/18 -recent admission 03/31/18 there were orders for iron studies, retic count, peripheral smear, B12, folate * retic count: 1.72, B12: 476, folate: 17, iron: 44, TIBC 213, %sat: 21, ferritin: 206, MCV: 96, LDH: 561 -has received erythropoetin in the past for anemia due to renal disease * CKD 3 and now with DAHLIA -recent admission 03/31/18 there were orders for epo level, immunofixation, spep, LDH * epo 22.8 (mildly high) * ABDIRIZAK and SPEP -> selective protein loss pattern, suggestive of nephrotic syndrome -1 dose of darbapoetin 40mcg sc on 04/06/18 - we will continue this once a week * darbopoetin 40mcg sc given on 04/13/18 * further administrations qmonthly outpatient -ferrous gluconate 324mg po qd now discontinued Hx L breast cancer (Dx 2015) invasive ductal carcinoma -ER+/HER2+ -Got 1 cycle of sandee-adjuvant chemo. After that, refused chemo/surgery. -CT chest w/o contrast 04/11/18 showed lymphadenopathy suspicious for tumor * etiology could be malignancy, infectious, inflammatory * patient was advised that this abnormal finding on CT needs to be followed up with an oncologist - this was reiterated to her multiple times on the previous admission and again on this current admission -CT chest w/o contrast 04/20/18 did not mention lymphadenopathy; it showed significant progression of atelectasis and right-sided effusion Dispo: patient accepted to [facility] Seen and discussed with Dr Gleason
--- NOTE | 2018-04-24 14:33 | CP.PCM.PN ---
Subjective - Date & Time of Evaluation Date of Evaluation: 04/24/18 Time of Evaluation: 10:05 - Subjective Subjective: Afebrile, not in distress. Objective - Vital Signs/Intake and Output Vital Signs (last 24 hours): Temp Pulse Resp BP Pulse Ox 98.2 F 90 20 116/51 L 100 04/24/18 06:00 04/24/18 10:04 04/24/18 06:00 04/24/18 10:04 04/24/18 06:00 Intake and Output: 04/24/18 04/24/18 06:59 18:59 Intake Total 720 Balance 720 - Medications Medications: Current Medications Albuterol Sulfate (Albuterol 0.083% Inhal Elvie (2.5 Mg/3 Ml) Ud) 2.5 mg INH [id number] [facility] Last Admin: 04/24/18 13:42 Dose: 2.5 mg Albuterol/Ipratropium (Duoneb 3 Mg/0.5 Mg (3 Ml) Ud) 3 ml IH Q2H PRN PRN Reason: Shortness of Breath Last Admin: 04/24/18 00:10 Dose: 3 ml Alprazolam (Xanax) 0.5 mg PO TID PRN; Protocol PRN Reason: Anxiety Last Admin: 04/24/18 10:26 Dose: 0.5 mg Arformoterol Tartrate (Brovana) 15 mcg IH [id number] [facility] Last Admin: 04/24/18 07:26 Dose: 15 mcg Aspirin (Aspirin Chewable) 81 mg PO DAILY [facility] Last Admin: 04/24/18 10:03 Dose: 81 mg Atorvastatin Calcium (Lipitor) 40 mg PO DAILY [facility] Last Admin: 04/24/18 10:03 Dose: 40 mg Bacitracin (Bacitracin) 0 gm TOP BID [facility] Last Admin: 04/24/18 12:29 Dose: Not Given Benzocaine/Menthol (Cepacol Sore Throat) 1 vy MT Q4H PRN PRN Reason: Sore Throat Last Admin: 04/20/18 21:49 Dose: 1 vy Budesonide (Pulmicort Respules) 0.5 mg IH [id number] [facility] Last Admin: 04/24/18 07:27 Dose: 0.5 mg Dextrose (Dextrose 50% Inj) 0 ml IV STAT PRN; Protocol PRN Reason: Hypoglycemia Protocol Ergocalciferol (Drisdol 50,000 Intl Units Cap) 1 cap PO Q7D [facility] Last Admin: 04/18/18 17:45 Dose: 1 cap Ferrous Gluconate (Fergon) 324 mg PO DAILY [facility] Last Admin: 04/24/18 10:03 Dose: 324 mg Heparin Sodium (Porcine) (Heparin) 5,000 units SC Q8 [facility]; Protocol Last Admin: 04/24/18 06:17 Dose: 5,000 units Dextrose (Dextrose 5% In Water 1000 Ml) 1,000 mls @ 0 mls/hr IV .Q0M PRN; Protocol PRN Reason: Hypoglycemia Protocol Insulin Detemir (Levemir) 40 unit SC HS [facility] Insulin Human Lispro (Humalog) 14 units SC AC [facility] Last Admin: 04/24/18 12:19 Dose: 14 u Insulin Human Lispro (Humalog Med) 0 units SC ACHS [facility]; Protocol Last Admin: 04/24/18 12:20 Dose: 3 units Metoprolol Tartrate (Lopressor) 25 mg PO BID [facility] Last Admin: 04/24/18 10:04 Dose: 25 mg Nicotine (Nicoderm Cq) 1 patch TD DAILY [facility] Last Admin: 04/24/18 10:05 Dose: 1 patch Pantoprazole Sodium (Protonix Ec Tab) 40 mg PO ACB [facility] Last Admin: 04/24/18 10:26 Dose: 40 mg Paroxetine HCl (Paxil) 5 mg PO HS [facility] Last Admin: 04/23/18 23:36 Dose: 5 mg Prednisone (Prednisone Tab) 40 mg PO DAILY [facility] Last Admin: 04/24/18 10:03 Dose: 40 mg Vitamin B Complex/Vit C/Folic Acid (Nephro-Enrrique) 1 tab PO 0800 [facility] Last Admin: 04/24/18 10:26 Dose: 1 tab - Labs Labs: 04/24/18 07:00 04/24/18 07:00 PT 11.9 SECONDS (9.4-12.5) 04/11/18 12:25 INR 1.05 04/11/18 12:25 APTT 25.3 Seconds (26.9-38.3) L 04/11/18 12:25 - Constitutional Appears: Chronically Ill - Head Exam Head Exam: NORMAL INSPECTION - Respiratory Exam Respiratory Exam: Decreased Breath Sounds - Cardiovascular Exam Cardiovascular Exam: +S1, +S2 - GI/Abdominal Exam GI & Abdominal Exam: Soft. absent: Tenderness Assessment and Plan - Assessment and Plan (Free Text) Plan: Assessment S/P severe sepsis with hypercapneic respiratory failure S/P VDRF due to congestive heart failure R/O right sided HCAP history of urinary tract infection with Proteus mirabilis history of pneumonia history of Carmen esophagitis End-stage COPD in a patient with a long history of smoking unresectable breast cancer DM HTN history of spine surgery history of bladder surgery history of UTI Plan completed course of antibiotics - will continue to monitor off antibiotics since she is at risk for healthcare-associated infections overall prognosis is poor
--- NOTE | 2018-04-24 15:30 | CP.PCM.PN ---
<Aj Mays - Last Filed: 04/24/18 15:51> Subjective - Date & Time of Evaluation Date of Evaluation: 04/24/18 Time of Evaluation: 07:00 - Subjective Subjective: Pt seen and examined this morning at bedside. Per nursing, pt incontinent of stool, skin care given. Objective - Vital Signs/Intake and Output Vital Signs (last 24 hours): Temp Pulse Resp BP Pulse Ox 98.2 F 90 20 116/51 L 100 04/24/18 06:00 04/24/18 10:04 04/24/18 06:00 04/24/18 10:04 04/24/18 06:00 Intake and Output: 04/24/18 04/24/18 06:59 18:59 Intake Total 720 720 Balance 720 720 - Medications Medications: Current Medications Albuterol Sulfate (Albuterol 0.083% Inhal Elvie (2.5 Mg/3 Ml) Ud) 2.5 mg INH [id number] [facility] Last Admin: 04/24/18 13:42 Dose: 2.5 mg Albuterol/Ipratropium (Duoneb 3 Mg/0.5 Mg (3 Ml) Ud) 3 ml IH Q2H PRN PRN Reason: Shortness of Breath Last Admin: 04/24/18 00:10 Dose: 3 ml Alprazolam (Xanax) 0.5 mg PO TID PRN; Protocol PRN Reason: Anxiety Last Admin: 04/24/18 10:26 Dose: 0.5 mg Arformoterol Tartrate (Brovana) 15 mcg IH [id number] [facility] Last Admin: 04/24/18 07:26 Dose: 15 mcg Aspirin (Aspirin Chewable) 81 mg PO DAILY [facility] Last Admin: 04/24/18 10:03 Dose: 81 mg Atorvastatin Calcium (Lipitor) 40 mg PO DAILY [facility] Last Admin: 04/24/18 10:03 Dose: 40 mg Bacitracin (Bacitracin) 0 gm TOP BID [facility] Last Admin: 04/24/18 12:29 Dose: Not Given Benzocaine/Menthol (Cepacol Sore Throat) 1 vy MT Q4H PRN PRN Reason: Sore Throat Last Admin: 04/20/18 21:49 Dose: 1 vy Budesonide (Pulmicort Respules) 0.5 mg IH [id number] [facility] Last Admin: 04/24/18 07:27 Dose: 0.5 mg Dextrose (Dextrose 50% Inj) 0 ml IV STAT PRN; Protocol PRN Reason: Hypoglycemia Protocol Ergocalciferol (Drisdol 50,000 Intl Units Cap) 1 cap PO Q7D [facility] Last Admin: 04/18/18 17:45 Dose: 1 cap Ferrous Gluconate (Fergon) 324 mg PO DAILY [facility] Last Admin: 04/24/18 10:03 Dose: 324 mg Heparin Sodium (Porcine) (Heparin) 5,000 units SC Q8 [facility]; Protocol Last Admin: 04/24/18 14:47 Dose: 5,000 units Dextrose (Dextrose 5% In Water 1000 Ml) 1,000 mls @ 0 mls/hr IV .Q0M PRN; Prot ocol PRN Reason: Hypoglycemia Protocol Insulin Detemir (Levemir) 40 unit SC HS [facility] Insulin Human Lispro (Humalog) 14 units SC AC [facility] Last Admin: 04/24/18 12:19 Dose: 14 u Insulin Human Lispro (Humalog Med) 0 units SC ACHS [facility]; Protocol Last Admin: 04/24/18 12:20 Dose: 3 units Metoprolol Tartrate (Lopressor) 25 mg PO BID [facility] Last Admin: 04/24/18 10:04 Dose: 25 mg Nicotine (Nicoderm Cq) 1 patch TD DAILY [facility] Last Admin: 04/24/18 10:05 Dose: 1 patch Pantoprazole Sodium (Protonix Ec Tab) 40 mg PO ACB [facility] Last Admin: 04/24/18 10:26 Dose: 40 mg Paroxetine HCl (Paxil) 5 mg PO HS [facility] Last Admin: 04/23/18 23:36 Dose: 5 mg Prednisone (Prednisone Tab) 40 mg PO DAILY [facility] Last Admin: 04/24/18 10:03 Dose: 40 mg Vitamin B Complex/Vit C/Folic Acid (Nephro-Enrrique) 1 tab PO 0800 [facility] Last Admin: 04/24/18 10:26 Dose: 1 tab - Labs Labs: 04/24/18 07:00 04/24/18 07:00 PT 11.9 SECONDS (9.4-12.5) 04/11/18 12:25 INR 1.05 04/11/18 12:25 APTT 25.3 Seconds (26.9-38.3) L 04/11/18 12:25 - Constitutional Appears: No Acute Distress - Head Exam Head Exam: ATRAUMATIC, NORMOCEPHALIC - Eye Exam Eye Exam: EOMI - ENT Exam ENT Exam: Mucous Membranes Moist - Neck Exam Neck Exam: Full ROM - Respiratory Exam Respiratory Exam: Decreased Breath Sounds, NORMAL BREATHING PATTERN. absent: Accessory Muscle Use, Respiratory Distress - Cardiovascular Exam Cardiovascular Exam: RRR, +S1, +S2. absent: Diastolic murmur, Murmur - GI/Abdominal Exam GI & Abdominal Exam: Soft, Normal Bowel Sounds. absent: Tenderness - Extremities Exam Extremities Exam: Full ROM, Normal Inspection. absent: Calf Tenderness, Pedal Edema - Neurological Exam Neurological Exam: Alert, Awake, Oriented x3 - Psychiatric Exam Psychiatric exam: Normal Affect, Normal Mood - Skin Skin Exam: Dry, Normal Color, Warm Additional comments: excoriations BL UE Assessment and Plan - Assessment and Plan (Free Text) Assessment: Pt is a 57 yo female with a PMH of Breast CA, asthma, COPD, anxiety, DM, and a right pleural effusion who presented with acute hypercapnic respiratory failure, subsequently extubated and transferred to medicine floors. Plan: Acute Hypercapnic Respiratory Failure - Likely 2/2 tobacco use in the setting of her known asthma and COPD - duonebs, prednisone, pulmicort, brovana - Chest CT 04/20/18: progression of atelectasis now invovling the entire right lung and right sided effusion. - Cardio consulted - IR consulted, - Pulm, extensive COPD, pleural effusion, DM, refusing BIPAP/CPAP, possible bronchoscopy Disorganized Thoughts - Psyc rec, pt most likely has a personality disorder, pt request that a psych iatriest never follow up with her, seems to be stable from a pysc standpoint, poses no imminent danger to herself or others, psyc is signing off Excoriations on BL UE - bacitracin ointment Anxiety - Paxil - psyc, discontinue benzos due to multiple overdoses DAHLIA on CKD - Cr 1.7 - BUN 70 - Nephrology, cont HTN control HLD - lipitor 40mg HTN - metoprolol tartrate 25 BID DM - HA1C 8.7 - accuchecks - ISS - levemir 34 HS - lispro 14 units AC HCAP - Strep pneumo not detected, legionella negative, MRSA negative, blood cultures NGTD - ID following, monitor off antibiotics Breast CA - CEA 31.9 - CA15-3, 18.8 - CA27.29, 19 - Palliative care, tried to discuss plan for discharge [facility]ECKY vs home. She did not answer my question nor did she want to engage in conversation. Her children were at beside. They stated they will do what ever their mother wants. Patient met with SW and refused BECKY, stated she wants to go home - Heme/ Onc, 1 dose of darbapoetin 40mcg sc on 04/13/18 - we will continue this once a week, pt advised to see an oncologist as an out pt for her breast CA, she has been advised this before on previous admissions Tobacco abuse - nicotine patch - Counseled, pt amendable to cessation Ppx - heparin - protonix Pt seen, examined, assessment and plan discussed with Dr Kajal Mays PGY1, Internal Medicine Resident <Darius Rdz - Last Filed: 04/26/18 07:46> Objective - Vital Signs/Intake and Output Vital Signs (last 24 hours): Temp Pulse Resp BP Pulse Ox 98.4 F 106 H 20 137/61 98 04/25/18 23:02 04/25/18 23:02 04/25/18 23:02 04/25/18 23:02 04/25/18 23:02 Intake and Output: 04/26/18 04/26/18 06:59 18:59 Intake Total 720 Balance 720 - Medications Medications: Current Medications Albuterol Sulfate (Albuterol 0.083% Inhal Elvie (2.5 Mg/3 Ml) Ud) 2.5 mg INH [id number] [facility] Last Admin: 04/26/18 07:33 Dose: 2.5 mg Albuterol/Ipratropium (Duoneb 3 Mg/0.5 Mg (3 Ml) Ud) 3 ml IH Q2H PRN PRN Reason: Shortness of Breath Last Admin: 04/24/18 00:10 Dose: 3 ml Alprazolam (Xanax) 0.5 mg PO TID PRN; Protocol PRN Reason: Anxiety Last Admin: 04/25/18 17:54 Dose: 0.5 mg Arformoterol Tartrate (Brovana) 15 mcg IH [id number] [facility] Last Admin: 04/26/18 07:33 Dose: 15 mcg Aspirin (Aspirin Chewable) 81 mg PO DAILY [facility] Last Admin: 04/25/18 09:33 Dose: Not Given Atorvastatin Calcium (Lipitor) 40 mg PO DAILY [facility] Last Admin: 04/25/18 09:33 Dose: Not Given Bacitracin (Bacitracin) 0 gm TOP BID [facility] Last Admin: 04/25/18 11:00 Dose: Not Given Benzocaine/Menthol (Cepacol Sore Throat) 1 vy MT Q4H PRN PRN Reason: Sore Throat Last Admin: 04/20/18 21:49 Dose: 1 vy Budesonide (Pulmicort Respules) 0.5 mg IH [id number] [facility] Last Admin: 04/26/18 07:33 Dose: 0.5 mg Dextrose (Dextrose 50% Inj) 0 ml IV STAT PRN; Protocol PRN Reason: Hypoglycemia Protocol Ergocalciferol (Drisdol 50,000 Intl Units Cap) 1 cap PO Q7D [facility] Last Admin: 04/25/18 18:06 Dose: 1 cap Ferrous Gluconate (Fergon) 324 mg PO DAILY [facility] Last Admin: 04/25/18 09:33 Dose: Not Given Heparin Sodium (Porcine) (Heparin) 5,000 units SC Q8 [facility]; Protocol Last Admin: 04/26/18 05:49 Dose: 5,000 units Dextrose (Dextrose 5% In Water 1000 Ml) 1,000 mls @ 0 mls/hr IV .Q0M PRN; Protocol PRN Reason: Hypoglycemia Protocol Insulin Detemir (Levemir) 44 unit SC HS [facility] Last Admin: 04/25/18 22:31 Dose: 44 units Insulin Human Lispro (Humalog) 14 units SC AC [facility] Last Admin: 04/25/18 18:03 Dose: 14 units Insulin Human Lispro (Humalog Med) 0 units SC ACHS [facility]; Protocol Last Admin: 04/25/18 18:03 Dose: 1 units Metoprolol Tartrate (Lopressor) 25 mg PO BID [facility] Last Admin: 04/25/18 18:02 Dose: 25 mg Nicotine (Nicoderm Cq) 1 patch TD DAILY [facility] Last Admin: 04/25/18 18:05 Dose: 1 patch Pantoprazole Sodium (Protonix Ec Tab) 40 mg PO ACB [facility] Last Admin: 04/25/18 09:34 Dose: Not Given Paroxetine HCl (Paxil) 5 mg PO HS [facility] Last Admin: 04/25/18 21:32 Dose: 5 mg Prednisone (Prednisone Tab) 40 mg PO DAILY [facility] Last Admin: 04/25/18 18:01 Dose: 40 mg Vitamin B Complex/Vit C/Folic Acid (Nephro-Enrrique) 1 tab PO 0800 [facility] Last Admin: 04/25/18 09:33 Dose: Not Given - Labs Labs: 04/26/18 07:00 04/26/18 07:00 PT 11.9 SECONDS (9.4-12.5) 04/11/18 12:25 INR 1.05 04/11/18 12:25 APTT 25.3 Seconds (26.9-38.3) L 04/11/18 12:25 Attending/Attestation - Attestation I have personally seen and examined this patient.: Yes I have fully participated in the care of the patient.: Yes I have reviewed all pertinent clinical information, including history, physical exam and plan: Yes Notes (Text): 04/26/18 07:44 Attending note; Patient seen and examined with resident. Patient is alert and awake. Currently on oxygen. Tolerating diet. Still complaining of cough and shortness of breath on exertion. Getting DuoNeb [id number]. Patient is a 57 year old female with past medical history significant for COPD, asthma, untreated breast cancer, anemia, anxiety, and recurrent UTIs that presented to the emergency room for respiratory failure. 1. Pleural effusion/Complete opacification of right hemithorax. Chest xray showed complete opacification of right hemithorax. CT chest showed significant progression of atelectasis no involving the entire right lung with right-sided effusion has increased as well, rule out mucous plugging volume loss right hemithorax with shift of the mediastinum from [id number]; small left-sided effusion and mild left basilar atelectasis; scattered patchy groundglass opacity seen in the left lower lobe. case discussed with interventional radiology in detail. Currently nothoracentesis required PEr DR. Olivera. Case discussed with pulmonary in detail. Plan for possible bronchoscopy if patient agrees. 2. Acute hypercapnic respiratory failure. S/P intubation and extubation. Continue Brovana and Pulmicort. Continue Prednisone. Patient refusing BiPAP on and off. 3. Acute on CKD: . Solar Photovoltaic Installer evaluation appreciated. creatinine is 1.7.. Continue nehprovite. . 4. Healthcare associated pneumonia. Patient is s/p treatment with cefepime. Leukocytosis resolved. Afebrile. Blood cultures with no growth. Procalcitonin 0.55. Influenza negative, Urine for legionella negative. Urine for strep pneumoniae negative. 5. Anemia. Likely secondary to malignancy and chronic disease. S/P 2 units P RBCs. HB is 8.0. needs close outpatient follow up. 6. DM2 with hyperglycemia. Continue insulin sliding scale. Continue Levemir at bedtime. Continue lispro AC. Endocrinology consulted, follow up mane mmendations. Continue to monitor accuchecks. Hgb AIC was 8.8 on 04/03/18. 7. Essential hypertension. Continue Metoporolol. 8. Hyperlipidemia. Continue lipitor. 9. History of breast cancer. S/P 1 cycle of chemo, patient refused chemo and surgery post one cycle. Will need repeat Chest CT in one month per hem/onc. Hem/onc following, recommendations appreciated. 10. Tobacco abuse. Patient was counseled at length on tobacco cessation. Continue with nicotine patch. 11. Depression and Anxiety. Continue Paxil 5 mg at bedtime. on xanax prn. Patient with thew long standing history of benzo dependency. 12. Noncompliance with follow-up. The need for close follow-up with PMD and other [employer] commerce consultant explained in detail. The diagnosis, treatment option and follow-up plan explained in detail. prognosis is poor due to multiple medical issues, continue smoking, benzodiazepine use and non compliance. upon discharge the patient will follow up with PMD Dr. Sosa.
--- NOTE | 2018-04-24 16:58 | PN ---
DATE: 04/24/2018 REASON FOR CONSULTATION: Followup, status post respiratory failure, anemia, status post intubated, successfully extubated, history of tobacco abuse, renal insufficiency, and diabetes. SUBJECTIVE: The patient denies any chest pain, shortness of breath, or any palpitation. PHYSICAL EXAMINATION: GENERAL: Not in apparent distress. VITAL SIGNS: Temperature afebrile, heart rate 90, and blood pressure 106/51. HEENT: PERRLA. Extraocular muscles are intact. NECK: Supple. No carotid bruits or thyromegaly. CHEST: Clear to auscultation. HEART: S1 and S2 regular. ABDOMEN: Soft. EXTREMITIES: Clubbing and cyanosis negative. LABORATORY DATA: Blood workup as follows: WBC 4,8, hemoglobin 7.8, hematocrit 26.2, and platelet count 85. Chemistry shows sodium 140, potassium 3.6, chloride 102, carbon dioxide 34, anion gap of , BUN 6, and creatinine 1.7. IMPRESSION AND PLAN: A 57-year-old female with past medical history significant for tobacco abuse, status post respiratory failure, pneumonia, intubated, successfully extubated, now the patient is in the floor, status post plug atelectasis at that time and complete cleared up now. The patient has severe anemia, status post 2 units of packed red blood cells, chronic renal insufficiency, and history of breast cancer, now the patient is stable. Aggressive medical treatment. No complaint of chest pain. Has some renal insufficiency with a creatinine of 1.7. Hemoglobin is stable at 7.8. Monitor electrolytes and hemoglobin. If hemoglobin grows below persistently 8, consider packed red blood cells transfusion. So far, the patient is stable. Continue aspirin, continue hematinics, continue deep vein thrombosis prophylaxis, continue insulin, continue metoprolol. We will follow with you. The patient has renal insufficiency, potassium is 3.6. We will not supplement because the patient will increase the K. Calcium is 7.1. Albumin is low, corrected would be 8. Monitor electrolytes closely, monitor H and H. Thank you Dr. Rdz for providing us the opportunity in taking care of the patient Yazmin Granado. Lisa Hernandez MD
--- NOTE | 2018-04-24 17:29 | RAD ---
HISTORY: pleural effusions COMPARISON: Chest x-ray performed 04/17/18 TECHNIQUE: Chest PA and lateral FINDINGS: Right-sided MediPort extends to the expected location of the SVC. LUNGS: Complete opacification of the right hemithorax with minimal aeration at the right lung apex. Volume loss and mediastinal shift towards the right. Mild patchy left basilar atelectasis/infiltrate. Blunting of the left costophrenic angle consistent with small effusion. CARDIOVASCULAR: Partially obscured. OSSEOUS STRUCTURES: Degenerative changes. VISUALIZED UPPER ABDOMEN: Unremarkable. OTHER FINDINGS: None. IMPRESSION: Right-sided MediPort extends to the expected location of the SVC. Complete opacification of the right hemithorax with minimal aeration at the right lung apex. Volume loss and mediastinal shift towards the right. Mild patchy left basilar atelectasis/infiltrate. Blunting of the left costophrenic angle consistent with small effusion.
[2018-04-24] MEDS ORDERED: Insulin Detemir 100 units/ml Vial (Levemir) SC SCH (22:00)
--- NOTE | 2018-04-25 00:08 | PN ---
DATE: 04/24/2018 ENDOCRINOLOGY FOLLOWUP NOTE SUBJECTIVE: This is a 57-year-old female with recent hypercapnic respiratory failure and is now being followed closely for metabolic management. Her glycemic levels are fluctuating as noted overnight with recent hyperglycemic accelerations and glucose levels have ranged from 202 to 326 and 346 mg/dL. LABORATORY DATA: Her chemistry showed a BUN of 16, sodium 140, potassium 3.6, chloride 102, CO2 of 34, glucose 343, and creatinine 1.7. ASSESSMENT AND PLAN: So at this time, we will modify once again her basal and bolus insulin regimen and increase the Humalog to 14 units t.i.d. before meals to start today as ordered. We will also increase the basal insulin with Levemir to be given as 34 units subcu at bedtime daily to start tonight. We will continue the low-dose correction scale using Humalog insulin as given. We will titrate incrementally as indicated to optimize metabolic control. We will follow. Ernestina Hawkins MD
[2018-04-25] MEDS: Albuterol 0.083% Inhal Sol (2.5 mg/3 mL) UD INH SCH ×4 (01:27→19:34)
[2018-04-25] MEDS: Arformoterol 15 mcg/2 ml Inh Sol IH SCH ×2 (07:25→19:34)
[2018-04-25] MEDS: Budesonide 0.5 mg/2 ml Inhal Susp UD IH SCH ×2 (07:25→19:34)
[2018-04-25 07:26] LABS: EOS % 0.6 % (1.5-5.0); HEMOGLOBIN 7.8 g/dL (12.0-16.0); LYMPH # 0.6 (1.2-3.4); LYMPH % 12.6 % (22.0-35.0); MEAN CELL VOLUME 95.6 fl (80.0-105.0); MEAN CORPUSCULAR HEMOGLOBIN 28.8 pg (25.0-35.0); MEAN CORPUSCULAR HGB CONC 30.1 g/dl (31.0-37.0); MEAN PLATELET VOLUME 11.3 fl (7.0-11.0); MONO # 0.2 (0.1-0.6); MONO % 4.5 % (1.0-6.0); RBC 2.71 10^6/uL (3.5-6.1); RED CELL DISTRIBUTION WIDTH 18.8 % (11.5-14.5); WHITE BLOOD COUNT 4.9 10^3/uL (4.5-11.0)
[2018-04-25 08:06] LABS: ALB/GLOB RATIO 1.3 (1.1-1.8); ALBUMIN 2.9 g/dL (3.0-4.8); CALCIUM 6.9 mg/dL (8.4-10.5)
[2018-04-25] MEDS: Insulin Lispro (humaLOG) MEDIUM Coverage SC SCH ×3 (09:06→18:03)
[2018-04-25] MEDS: Insulin Lispro 1 UNITS/0.01 ML SC SCH ×3 (09:06→18:03)
[2018-04-25] MEDS: Multivitamin Vitamin B Complex (Nephro-Vite) Tab PO SCH (09:33)
[2018-04-25] MEDS: Pantoprazole 40 mg EC Tab PO SCH (09:34)
[2018-04-25] MEDS: Bacitracin Ointment 30 GM TUBE TOP SCH (11:00)
[2018-04-25] MEDS ORDERED: Benzocaine/Butamben/Tetracai 14-2-2% TOP Spray TOP ONE (13:33)
[2018-04-25] MEDS ORDERED: Lidocaine 4% 50 mL Topical Sol (OR USE) ONE (13:33)
[2018-04-25] MEDS ORDERED: Lidocaine 2% Jelly (30 ml) ONE (13:34)
[2018-04-25] MEDS ORDERED: Propofol 10 mg/ml Inj (20 ML) ONE ×3 (14:19→14:41)
[2018-04-25] MEDS ORDERED: Midazolam 2 MG/2 ML VIAL ONE (14:36)
[2018-04-25] MEDS ORDERED: Sodium Chloride 0.9% 1,000 ML IV SCH (15:15)
--- NOTE | 2018-04-25 15:25 | CP.PCM.PN ---
Subjective - Date & Time of Evaluation Date of Evaluation: 04/25/18 Time of Evaluation: 07:00 - Subjective Subjective: Pt seen and examined this morning. Per nursing, pt NPO for bronch procedure. Objective - Vital Signs/Intake and Output Vital Signs (last 24 hours): Temp Pulse Resp BP Pulse Ox 98 F 93 H 18 137/64 96 04/25/18 14:27 04/25/18 14:27 04/25/18 14:27 04/25/18 14:27 04/25/18 14:50 Intake and Output: 04/25/18 04/25/18 06:59 18:59 Intake Total 600 Balance 600 - Medications Medications: Current Medications Albuterol Sulfate (Albuterol 0.083% Inhal Elvie (2.5 Mg/3 Ml) Ud) 2.5 mg INH [id number] [facility] Last Admin: 04/25/18 13:30 Dose: 2.5 mg Albuterol/Ipratropium (Duoneb 3 Mg/0.5 Mg (3 Ml) Ud) 3 ml IH Q2H PRN PRN Reason: Shortness of Breath Last Admin: 04/24/18 00:10 Dose: 3 ml Alprazolam (Xanax) 0.5 mg PO TID PRN; Protocol PRN Reason: Anxiety Last Admin: 04/24/18 10:26 Dose: 0.5 mg Arformoterol Tartrate (Brovana) 15 mcg IH [id number] [facility] Last Admin: 04/25/18 07:25 Dose: 15 mcg Aspirin (Aspirin Chewable) 81 mg PO DAILY [facility] Last Admin: 04/25/18 09:33 Dose: Not Given Atorvastatin Calcium (Lipitor) 40 mg PO DAILY [facility] Last Admin: 04/25/18 09:33 Dose: Not Given Bacitracin (Bacitracin) 0 gm TOP BID [facility] Last Admin: 04/25/18 11:00 Dose: Not Given Benzocaine/Menthol (Cepacol Sore Throat) 1 vy MT Q4H PRN PRN Reason: Sore Throat Last Admin: 04/20/18 21:49 Dose: 1 vy Budesonide (Pulmicort Respules) 0.5 mg IH [id number] [facility] Last Admin: 04/25/18 07:25 Dose: 0.5 mg Dextrose (Dextrose 50% Inj) 0 ml IV STAT PRN; Protocol PRN Reason: Hypoglycemia Protocol Ergocalciferol (Drisdol 50,000 Intl Units Cap) 1 cap PO Q7D [facility] Last Admin: 04/18/18 17:45 Dose: 1 cap Ferrous Gluconate (Fergon) 324 mg PO DAILY [facility] Last Admin: 04/25/18 09:33 Dose: Not Given Heparin Sodium (Porcine) (Heparin) 5,000 units SC Q8 [facility]; Protocol Last Admin: 04/25/18 13:50 Dose: Not Given Dextrose (Dextrose 5% In Water 1000 Ml) 1,000 mls @ 0 mls/hr IV .Q0M PRN; P rotocol PRN Reason: Hypoglycemia Protocol Sodium Chloride (Sodium Chloride 0.9%) 1,000 mls @ 75 mls/hr IV .[id number] [facility] Stop: 04/25/18 17:16 Insulin Detemir (Levemir) 44 unit SC HS [facility] Insulin Human Lispro (Humalog) 14 units SC AC [facility] Last Admin: 04/25/18 11:31 Dose: Not Given Insulin Human Lispro (Humalog Med) 0 units SC ACHS [facility]; Protocol Last Admin: 04/25/18 11:31 Dose: Not Given Metoprolol Tartrate (Lopressor) 25 mg PO BID [facility] Last Admin: 04/25/18 10:00 Dose: Not Given Nicotine (Nicoderm Cq) 1 patch TD DAILY [facility] Last Admin: 04/24/18 10:05 Dose: 1 patch Pantoprazole Sodium (Protonix Ec Tab) 40 mg PO ACB [facility] Last Admin: 04/25/18 09:34 Dose: Not Given Paroxetine HCl (Paxil) 5 mg PO HS [facility] Last Admin: 04/24/18 21:20 Dose: 5 mg Prednisone (Prednisone Tab) 40 mg PO DAILY [facility] Last Admin: 04/25/18 09:33 Dose: Not Given Vitamin B Complex/Vit C/Folic Acid (Nephro-Enrrique) 1 tab PO 0800 [facility] Last Admin: 04/25/18 09:33 Dose: Not Given - Labs Labs: 04/25/18 07:00 04/25/18 07:00 PT 11.9 SECONDS (9.4-12.5) 04/11/18 12:25 INR 1.05 04/11/18 12:25 APTT 25.3 Seconds (26.9-38.3) L 04/11/18 12:25 - Constitutional Appears: No Acute Distress - Head Exam Head Exam: ATRAUMATIC, NORMOCEPHALIC - Eye Exam Eye Exam: EOMI - ENT Exam ENT Exam: Mucous Membranes Moist - Neck Exam Neck Exam: Full ROM - Respiratory Exam Respiratory Exam: Decreased Breath Sounds, NORMAL BREATHING PATTERN. absent: Accessory Muscle Use, Respiratory Distress - Cardiovascular Exam Cardiovascular Exam: RRR, +S1, +S2. absent: Diastolic murmur, Murmur - GI/Abdominal Exam GI & Abdominal Exam: Soft, Normal Bowel Sounds. absent: Tenderness - Extremities Exam Extremities Exam: Full ROM, Pedal Edema. absent: Calf Tenderness - Neurological Exam Neurological Exam: Alert, Normal Gait, Oriented x3 - Psychiatric Exam Psychiatric exam: Normal Affect, Normal Mood - Skin Skin Exam: Dry, Normal Color, Warm Assessment and Plan - Assessment and Plan (Free Text) Assessment: Pt is a 57 yo female with a PMH of Breast CA, asthma, COPD, anxiety, DM, and a right pleural effusion who presented with acute hypercapnic respiratory failure, subsequently extubated and transferred to medicine floors.
--- NOTE | 2018-04-25 16:23 | PN ---
DATE: 04/25/2018 PULMONARY PROGRESS NOTE REFERRING PHYSICIAN: Darius Rdz MD SUBJECTIVE: The patient is sitting up in bedside. No acute distress. Reports that she has cough which has been productive today, shortness of breath with exertion. No headache, rhinitis, chest pain, abdominal pain, nausea, vomiting, diarrhea, leg pain or leg swelling reported. The patient is currently n.p.o. for potential bronchoscopy today. OBJECTIVE: GENERAL: No acute distress. VITAL SIGNS: Blood pressure 137/64, pulse rate 93, temperature 98 and oxygen saturation 99% on nasal cannula. HEENT: Moist mucous membranes. Crowded airway. NECK: Supple. No JVD. CARDIOVASCULAR: S1 and S2. LUNGS: Scattered rhonchi, decreased breath sounds on the right. ABDOMEN: Soft and nontender. No distention. No organomegaly. EXTREMITIES: No bilateral lower extremity edema. NEUROLOGIC: Awake, alert, and verbal. Able to follow commands. Hard of hearing. MEDICATIONS: Reviewed. Albuterol 2.5 mg inhalation every 6 hours, DuoNeb 3 mL inhalation every 2 hours p.r.n., Xanax 0.5 mg 3 times a day p.r.n., Brovana 15 mcg inhalation every 12 hours, aspirin 81 mg daily, Lipitor 40 mg daily, Bacitracin topically twice a day to affected area, Cepacol throat lozenges every 4 hours p.r.n., Pulmicort 0.5 mg every 12 hours, ergocalciferol 50,000 units weekly, ferrous gluconate 324 mg daily, heparin 5000 units subcutaneous every 8 hours, Levemir 24 units subcutaneously at bedtime, Humalog 14 units subcutaneously a.c., Humalog sliding scale a.c. and at bedtime, metoprolol titrate 25 mg twice a day, nicotine patch transdermally daily, Protonix 40 mg in the morning, Paxil 5 mg at bedtime, prednisone 40 mg daily and Nephro-Enrrique one tab daily. LABORATORY DATA: Reviewed. WBC 4.9, RBC 2.71, hemoglobin 7.8, hematocrit 25.9 and platelets 105. Sodium 142, potassium 3.4, chloride 103, carbon dioxide 35, anion gap 8, BUN 63, creatinine 1.6, GFR 33, POC glucose 146, random glucose 240, calcium 6.9, total bilirubin 0.3, AST 17, ALT 48, alkaline phosphatase 66, total protein 5.2, albumin 2.9, globulin 2.3 and albumin-globulin ratio 1.3. Chest x-ray shows complete opacification of right hemithorax with minimal aeration of the right lung apex, volume loss and mediastinal shift towards the right, mild patchy left basilar atelectasis or infiltrate, blunting of the left costophrenic angle consistent with small effusion. IMPRESSION AND PLAN: Chronic obstructive lung disease, extensive right lung mucous plugging, atelectasis, pleural effusion, diabetes, chronic lung disease, history of breast cancer with progressive disease, urinary tract infection and obstructive sleep apnea syndrome. The patient refuse to use continuous positive airway pressure or bilevel positive airway pressure at this time. Continue incentive spirometry, gastric prophylaxis, deep venous thrombosis prophylaxis. Continue pulmonary toileting, chest physiotherapy, inhaled bronchodilators. Continue deep suctioning. Fall precautions. The patient is scheduled for bronchoscopy today. Will order CT scan of chest s/p bronchoscopy. The patient seen and examined with Dr. Rucker. Discussed assessment and plan as described above. This patient seen and examined by Jeannie Velásquez. Discussed assessment and plan as described above. Thank you for this consult. We will follow with you. Didier Dennis APN Lisa Rucker MD MTDJuan
--- NOTE | 2018-04-25 17:02 | CP.PCM.PN ---
<DavonAj Bhaskar - Last Filed: 04/25/18 17:16> Subjective - Date & Time of Evaluation Date of Evaluation: 04/25/18 Time of Evaluation: 07:15 - Subjective Subjective: Pt seen and examined this morning. Per nursing, pt states she is always hungry, pt is reminded about her blood sugar but she still wants to eat. Pt NPO for bronch. Objective - Vital Signs/Intake and Output Vital Signs (last 24 hours): Temp Pulse Resp BP Pulse Ox 98 F 98 H 17 132/84 94 L 04/25/18 16:07 04/25/18 16:07 04/25/18 16:07 04/25/18 16:07 04/25/18 16:07 Intake and Output: 04/25/18 04/25/18 06:59 18:59 Intake Total 600 75 Balance 600 75 - Medications Medications: Current Medications Albuterol Sulfate (Albuterol 0.083% Inhal Elvie (2.5 Mg/3 Ml) Ud) 2.5 mg INH [id number] [facility] Last Admin: 04/25/18 13:30 Dose: 2.5 mg Albuterol/Ipratropium (Duoneb 3 Mg/0.5 Mg (3 Ml) Ud) 3 ml IH Q2H PRN PRN Reason: Shortness of Breath Last Admin: 04/24/18 00:10 Dose: 3 ml Alprazolam (Xanax) 0.5 mg PO TID PRN; Protocol PRN Reason: Anxiety Last Admin: 04/24/18 10:26 Dose: 0.5 mg Arformoterol Tartrate (Brovana) 15 mcg IH [id number] [facility] Last Admin: 04/25/18 07:25 Dose: 15 mcg Aspirin (Aspirin Chewable) 81 mg PO DAILY [facility] Last Admin: 04/25/18 09:33 Dose: Not Given Atorvastatin Calcium (Lipitor) 40 mg PO DAILY [facility] Last Admin: 04/25/18 09:33 Dose: Not Given Bacitracin (Bacitracin) 0 gm TOP BID [facility] Last Admin: 04/25/18 11:00 Dose: Not Given Benzocaine/Menthol (Cepacol Sore Throat) 1 vy MT Q4H PRN PRN Reason: Sore Throat Last Admin: 04/20/18 21:49 Dose: 1 vy Budesonide (Pulmicort Respules) 0.5 mg IH [id number] [facility] Last Admin: 04/25/18 07:25 Dose: 0.5 mg Dextrose (Dextrose 50% Inj) 0 ml IV STAT PRN; Protocol PRN Reason: Hypoglycemia Protocol Ergocalciferol (Drisdol 50,000 Intl Units Cap) 1 cap PO Q7D [facility] Last Admin: 04/18/18 17:45 Dose: 1 cap Ferrous Gluconate (Fergon) 324 mg PO DAILY [facility] Last Admin: 04/25/18 09:33 Dose: Not Given Heparin Sodium (Porcine) (Heparin) 5,000 units SC Q8 [facility]; Protocol Last Admin: 04/25/18 13:50 Dose: Not Given Dextrose (Dextrose 5% In Water 1000 Ml) 1,000 mls @ 0 mls/hr IV .Q0M PRN; Protocol PRN Reason: Hypoglycemia Protocol Sodium Chloride (Sodium Chloride 0.9%) 1,000 mls @ 75 mls/hr IV .[id number] [facility] Stop: 04/25/18 17:16 Insulin Detemir (Levemir) 44 unit SC [facility] Insulin Human Lispro (Humalog) 14 units SC AC [facility] Last Admin: 04/25/18 11:31 Dose: Not Given Insulin Human Lispro (Humalog Med) 0 units SC ACHS [facility]; Protocol Last Admin: 04/25/18 11:31 Dose: Not Given Metoprolol Tartrate (Lopressor) 25 mg PO BID [facility] Last Admin: 04/25/18 10:00 Dose: Not Given Nicotine (Nicoderm Cq) 1 patch TD DAILY [facility] Last Admin: 04/24/18 10:05 Dose: 1 patch Pantoprazole Sodium (Protonix Ec Tab) 40 mg PO ACB [facility] Last Admin: 04/25/18 09:34 Dose: Not Given Paroxetine HCl (Paxil) 5 mg PO HS [facility] Last Admin: 04/24/18 21:20 Dose: 5 mg Prednisone (Prednisone Tab) 40 mg PO DAILY [facility] Last Admin: 04/25/18 09:33 Dose: Not Given Vitamin B Complex/Vit C/Folic Acid (Nephro-Enrrique) 1 tab PO 0800 [facility] Last Admin: 04/25/18 09:33 Dose: Not Given - Labs Labs: 04/25/18 07:00 04/25/18 07:00 PT 11.9 SECONDS (9.4-12.5) 04/11/18 12:25 INR 1.05 04/11/18 12:25 APTT 25.3 Seconds (26.9-38.3) L 04/11/18 12:25 - Constitutional Appears: No Acute Distress - Head Exam Head Exam: ATRAUMATIC, NORMOCEPHALIC - Eye Exam Eye Exam: EOMI - ENT Exam ENT Exam: Mucous Membranes Moist - Neck Exam Neck Exam: Full ROM, Normal Inspection - Respiratory Exam Respiratory Exam: Decreased Breath Sounds, NORMAL BREATHING PATTERN. absent: Accessory Muscle Use - Cardiovascular Exam Cardiovascular Exam: RRR, +S1, +S2. absent: Diastolic murmur - GI/Abdominal Exam GI & Abdominal Exam: Soft, Normal Bowel Sounds. absent: Tenderness - Extremities Exam Extremities Exam: Full ROM, Pedal Edema. absent: Calf Tenderness, Tenderness - Neurological Exam Neurological Exam: Alert, Awake - Psychiatric Exam Psychiatric exam: Normal Affect, Normal Mood - Skin Skin Exam: Dry, Normal Color, Warm Assessment and Plan - Assessment and Plan (Free Text) Assessment: Pt is a 57 yo female with a PMH of Breast CA, asthma, COPD, anxiety, DM, and a right pleural effusion who presented with acute hypercapnic respiratory failure, subsequently extubated and transferred to medicine floors. Plan: Acute Hypercapnic Respiratory Failure - Likely 2/2 tobacco use in the setting of her known asthma and COPD - duonebs, prednisone, pulmicort, brovana - Chest CT 04/20/18: progression of atelectasis now invovling the entire right lung and right sided effusion. - Bronch 04/25/18: mucus plug found, washings were obtained - Cardio consulted - IR consulted - Pulm, extensive COPD, pleural effusion, DM, refusing BIPAP/CPAP, possible bronchoscopy Disorganized Thoughts - Psyc rec, pt most likely has a personality disorder, pt request that a psychiatriest never follow up with her, seems to be stable from a pysc standpoint, poses no imminent danger to herself or others, psyc is signing off DAHLIA on CKD - Cr 1.6, BUN 63 - Nephrology, cont HTN control DM - HA1C 8.7, accuchecks, ISS, levemir 44 HS, lispro 14 units AC - Endo consulted, Dr Hawkins HCAP - Strep pneumo not detected, legionella negative, MRSA negative, blood cultures NGTD - ID following, monitor off antibiotics HLD - lipitor 40mg HTN - metoprolol tartrate 25 BID Breast CA - CEA 31.9, CA15-3, 18.8, CA27.29, 19 - Heme/ Onc, 1 dose of darbapoetin 40mcg sc on 04/13/18 - we will continue this once a week, pt advised to see an oncologist as an out pt for her breast CA, she has been advised this before on previous admissions - Palliative care, tried to discuss plan for discharge BECKY vs home. She did not answer my question nor did she want to engage in conversation. Her children were at beside. They stated they will do what ever their mother wants. Patient met with SW and refused BECKY, stated she wants to go home Excoriations on BL UE - bacitracin ointment Anxiety - Paxil - psyc, discontinue benzos due to multiple overdoses Tobacco abuse - Counseled, pt amendable to cessation - nicotine patch Ppx - protonix - heparin Pt seen, examined, assessment and plan discussed with Dr Kajal Mays PGY1, Internal Medicine Resident <Darius Rdz - Last Filed: 04/26/18 07:53> Objective - Vital Signs/Intake and Output Vital Signs (last 24 hours): Temp Pulse Resp BP Pulse Ox 98.4 F 106 H 20 137/61 98 04/25/18 23:02 04/25/18 23:02 04/25/18 23:02 04/25/18 23:02 04/25/18 23:02 Intake and Output: 04/26/18 04/26/18 06:59 18:59 Intake Total 720 Balance 720 - Medications Medications: Current Medications Albuterol Sulfate (Albuterol 0.083% Inhal Elvie (2.5 Mg/3 Ml) Ud) 2.5 mg INH [id number] [facility] Last Admin: 04/26/18 07:33 Dose: 2.5 mg Albuterol/Ipratropium (Duoneb 3 Mg/0.5 Mg (3 Ml) Ud) 3 ml IH Q2H PRN PRN Reason: Shortness of Breath Last Admin: 04/24/18 00:10 Dose: 3 ml Alprazolam (Xanax) 0.5 mg PO TID PRN; Protocol PRN Reason: Anxiety Last Admin: 04/25/18 17:54 Dose: 0.5 mg Arformoterol Tartrate (Brovana) 15 mcg IH [id number] [facility] Last Admin: 04/26/18 07:33 Dose: 15 mcg Aspirin (Aspirin Chewable) 81 mg PO DAILY [facility] Last Admin: 04/25/18 09:33 Dose: Not Given Atorvastatin Calcium (Lipitor) 40 mg PO DAILY [facility] Last Admin: 04/25/18 09:33 Dose: Not Given Bacitracin (Bacitracin) 0 gm TOP BID [facility] Last Admin: 04/25/18 11:00 Dose: Not Given Benzocaine/Menthol (Cepacol Sore Throat) 1 vy MT Q4H PRN PRN Reason: Sore Throat Last Admin: 04/20/18 21:49 Dose: 1 vy Budesonide (Pulmicort Respules) 0.5 mg IH [id number] [facility] Last Admin: 04/26/18 07:33 Dose: 0.5 mg Dextrose (Dextrose 50% Inj) 0 ml IV STAT PRN; Protocol PRN Reason: Hypoglycemia Protocol Ergocalciferol (Drisdol 50,000 Intl Units Cap) 1 cap PO Q7D [facility] Last Admin: 04/25/18 18:06 Dose: 1 cap Ferrous Gluconate (Fergon) 324 mg PO DAILY [facility] Last Admin: 04/25/18 09:33 Dose: Not Given Heparin Sodium (Porcine) (Heparin) 5,000 units SC Q8 [facility]; Protocol Last Admin: 04/26/18 05:49 Dose: 5,000 units Dextrose (Dextrose 5% In Water 1000 Ml) 1,000 mls @ 0 mls/hr IV .Q0M PRN; Protocol PRN Reason: Hypoglycemia Protocol Insulin Detemir (Levemir) 44 unit SC HS [facility] Last Admin: 04/25/18 22:31 Dose: 44 units Insulin Human Lispro (Humalog) 14 units SC AC [facility] Last Admin: 04/25/18 18:03 Dose: 14 units Insulin Human Lispro (Humalog Med) 0 units SC ACHS [facility]; Protocol Last Admin: 04/25/18 18:03 Dose: 1 units Metoprolol Tartrate (Lopressor) 25 mg PO BID [facility] Last Admin: 04/25/18 18:02 Dose: 25 mg Nicotine (Nicoderm Cq) 1 patch TD DAILY [facility] Last Admin: 04/25/18 18:05 Dose: 1 patch Pantoprazole Sodium (Protonix Ec Tab) 40 mg PO ACB [facility] Last Admin: 04/25/18 09:34 Dose: Not Given Paroxetine HCl (Paxil) 5 mg PO HS [facility] Last Admin: 04/25/18 21:32 Dose: 5 mg Prednisone (Prednisone Tab) 40 mg PO DAILY [facility] Last Admin: 04/25/18 18:01 Dose: 40 mg Vitamin B Complex/Vit C/Folic Acid (Nephro-Enrrique) 1 tab PO 0800 [facility] Last Admin: 04/25/18 09:33 Dose: Not Given - Labs Labs: 04/26/18 07:00 04/26/18 07:00 PT 11.9 SECONDS (9.4-12.5) 04/11/18 12:25 INR 1.05 04/11/18 12:25 APTT 25.3 Seconds (26.9-38.3) L 04/11/18 12:25 Attending/Attestation - Attestation I have personally seen and examined this patient.: Yes I have fully participated in the care of the patient.: Yes I have reviewed all pertinent clinical information, including history, physical exam and plan: Yes Notes (Text): 04/26/18 07:48 Attending note; Patient seen and examined with resident in the morning. Patient is alert and awake. Currently on oxygen. Currently nothing by mouth for possible bronchoscopy. Waiting for pulmonary evaluation today. Patient is a 57 year old female with past medical history significant for COPD, asthma, untreated breast cancer, anemia, anxiety, and recurrent UTIs that presented to the emergency room for respiratory failure. 1. Pleural effusion/Complete opacification of right hemithorax. Chest xray showed complete opacification of right hemithorax. CT chest showed significant progression of atelectasis no involving the entire right lung with right-sided effusion has increased as well, rule out mucous plugging volume loss right hemithorax with shift of the mediastinum from [id number]; small left- sided effusion and mild left basilar atelectasis; scattered patchy groundglass opacity seen in the left lower lobe. Case discussed with pulmonary in detail. Plan for bronchoscopy today. 2. Acute hypercapnic respiratory failure. S/P intubation and extubation. Improved significantly. Continue Brovana and Pulmicort. Continue Prednisone. Continue BiPAP at night. Needs close pulmonary follow-up as outpatient. Needs sleep study as outpatient. 3. Acute on CKD: . Entry Level Staff Accountant evaluation appreciated. creatinine is 1.6. Continue nehprovite. . 4. Healthcare associated pneumonia. Patient is s/p treatment with cefepime. Leukocytosis resolved. Afebrile. Blood cultures with no growth. Procalcitonin 0.55. Influenza negative, Urine for legionella negative. Urine for strep pneumoniae negative. 5. Anemia. Likely secondary to malignancy and chronic disease. S/P 2 units PRBCs. HB is 7.8. needs close outpatient follow up. 6. DM2 with hyperglycemia. Continue insulin sliding scale. Continue Levemir Endocrinology evaluation appreciated. 7. Essential hypertension. Continue Metoporolol. 8. Hyperlipidemia. Continue lipitor. 9. History of breast cancer. S/P 1 cycle of chemo, patient refused chemo and surgery post one cycle. Will need repeat Chest CT in one month per hem/onc. Hem/onc following, recommendations appreciated. 10. Tobacco abuse. Patient was counseled at length on tobacco cessation. Continue with nicotine patch. 11. Depression and Anxiety. Continue Paxil 5 mg at bedtime. on xanax prn. Patient with thew long standing history of benzo dependency. 12. Noncompliance with follow-up. The need for close follow-up with PMD and othe r staff consultant explained in detail. The diagnosis, treatment option and follow-up plan explained in detail. prognosis is poor due to multiple medical issues, continue smoking, benzodiazepine use and non compliance. upon discharge the patient will follow up with PMD Dr. Sosa. Addendum; Patient status post bronchoscopy. Waiting for his repeat CT chest. Had a long conversation with patient's son and daughter by the bedside. manager php present during a conversation. Plan for discharge home tomorrow. Patient's family is advised to assist patient in follow-up plan with PMD.
--- NOTE | 2018-04-25 17:51 | CT ---
Date of service: 04/25/2018 PROCEDURE: CT Chest without contrast HISTORY: post bronch evaluation COMPARISON: Eight TECHNIQUE: Contiguous axial images were obtained through the chest without intravenous contrast enhancement. Sagittal and coronal reconstructions were performed. Radiation dose (DLP): 427.51 mGy-cm. This CT exam was performed using one or more of the following dose reduction techniques: Automated exposure control, adjustment of the mA and/or kV according to patient size, and/or use of iterative reconstruction technique. FINDINGS: LUNGS: There is almost complete atelectasis of the right lower lobe end of the right middle lobe. There is heterogeneous opacity, both ground-glass and interstitial, throughout the right upper lobe. There is pleural-based soft tissue density in the posterior right upper lobe suspicious for neoplasm. There is a small focal ill-defined opacity in the apical posterior left upper lobe. This was present on prior examination as well. There is left lower lobe minimal subsegmental atelectasis associated with small pleural effusion. There is marked right-sided volume loss with shift of the heart mediastinum towards the right. MEDIASTINUM: Unremarkable thoracic aorta. No aneurysm. There is mild cardiomegaly. Main pulmonary artery unremarkable. No vascular congestion. No mediastinal lymphadenopathy. No evidence of hilar lymphadenopathy. Evaluation limited by the absence of intravenous contrast administration. Shotty subcentimeter prevascular nodes are identified. There is fluid filling the distal half of the esophagus, possibly swallowed secretions. The esophagus is not markedly distended. There is atherosclerotic calcification of the thoracic aorta. There is extensive irregular soft tissue density in the left breast concerning for neoplasm. There is associated calcification. There are enlarged left axillary lymph nodes. PLEURA: Small bilateral pleural effusion, right greater than left. No pneumothorax. Right posterior apical pleural thickening. Pleural thickening also noted along right lower anterolateral pleural surface. Possible neoplasm. BONES: No fracture. No destructive lesion. UPPER ABDOMEN: Grossly unremarkable. OTHER FINDINGS: None. IMPRESSION: Right lower lobe and right middle lobe atelectasis. Marked right-sided volume loss with shift of heart and mediastinum towards the right. Hree aeration of the right upper lobe is noted since prior CT of 04/20/2018. Reticular and ground-glass opacity throughout the right upper lobe. Uncertain significance. This may be infectious/inflammatory or may reflect some residual atelectasis status post reaeration of right upper lobe since CT of 04/20/2018. abnormal pleural thickening posterior right apex and lower posterolateral right hemithorax. Small pleural effusion, right greater than left. Fluid filling much of the lower esophagus common nonspecific. Suspicious for neoplasm in left breast. Left axillary lymphadenopathy.
--- NOTE | 2018-04-25 18:04 | PN ---
DATE: 04/25/2018 LOCATION: The patient is in the room 576, bed 2. REASON FOR CONSULTATION AND FOLLOWUP: Status post respiratory failure, anemia, status post intubation, then successful extubation, renal insufficiency, diabetes mellitus, atelectasis and right lung with mucous plug. SUBJECTIVE: The patient sitting up on the bed comfortably, denies any chest pain. She says breathing is also better. Denies any palpitation. PHYSICAL EXAMINATION: VITAL SIGNS: Blood pressure is 150/65, yesterday blood pressure was 130/61, respirations 20, pulse 78, and temperature 97.8. HEENT: Head is normocephalic. Eyes; pupil normal. Conjunctivae is slightly pale. NECK: JVP low. Carotids equal. THORAX: AP diameter normal. LUNGS: Some expiratory wheezing present. CARDIOVASCULAR: S1 and S2. ABDOMEN: Soft and nontender. No organomegaly. EXTREMITIES: No clubbing. No cyanosis. LABORATORY DATA: WBC 4.9, hemoglobin 7.8, hematocrit 25.9, and platelets 105. Sodium 142, potassium 3.4, BUN 63, and creatinine 1.6. Calcium 6.9. AST and ALT normal. Total protein 5.2, albumin 2.9. Random sugar 146. Chest x-ray repeated yesterday still shows complete opacification of the right hemithorax with minimal aeration at the right lung apex, mediastinal shift to the right, mild patchy left basilar atelectasis, blunting of her left costophrenic angle consisting of a small pleural . DIAGNOSES: Status post respiratory failure, pneumonia, intubation and successful extubation, atelectasis of the right lung, mucous plug, anemia, status 2 units of blood transfusion, chronic renal insufficiency, history of breast cancer, hypokaliemia, diabetes, and urinary tract infection. MEDICATIONS: The patient is on aspirin 81 mg daily, ferrous gluconate 324 mg p.o. daily, heparin 5000 units subcutaneous every 8 hours, insulin as ordered, Lipitor 40 mg daily, 25 mg b.i.d., Paxil 5 mg at bedtime, prednisone 40 mg daily, and Protonix 40 mg daily. PLAN: The patient is being followed by Nephrology. We will follow with you. Lisa Jones MD [facility] # [id number]
[2018-04-25] MEDS: Ergocalciferol 50,000 Intl Units Cap PO SCH (18:06)
[2018-04-25] MEDS ORDERED: Insulin Detemir 100 units/ml Vial (Levemir) SC SCH (22:00)
--- NOTE | 2018-04-26 00:08 | PN ---
DATE: 04/25/2018 ENDO FOLLOWUP NOTE LOCATION: The patient is in the room 576. SUBJECTIVE: This is a 57-year-old female with recent uncontrolled type 2 insulin requiring diabetes, now being followed closely for metabolic management. Her glycemic levels are fluctuating, but improved and the latest glucose levels overnight have ranged from 146 to 245 and 327 mg/dL. LABORATORY DATA: Her chemistry showed a BUN of 63, sodium 142, potassium 3.4, chloride 102, CO2 35, glucose 240, and creatinine 1.6. ASSESSMENT AND PLAN: So at this time, we will modify once again her basal and bolus insulin regimen and increase the Humalog to 14 units subcutaneously t.i.d. before meals to start today as ordered. We will also increase the basal insulin with Levemir to begin at 44 units subcutaneously at bedtime daily as given. We will titrate incrementally as indicated to optimize metabolic control. We will follow the advice of . Ernestina Hawkins MD
[2018-04-26] MEDS: Albuterol 0.083% Inhal Sol (2.5 mg/3 mL) UD INH SCH ×3 (01:28→13:14)
[2018-04-26 07:27] LABS: LYMPH # 0.2 (1.2-3.4); LYMPH % 5.6 % (22.0-35.0); MEAN CORPUSCULAR HGB CONC 30.2 g/dl (31.0-37.0); MEAN PLATELET VOLUME 10.6 fl (7.0-11.0); MONO % 0.7 % (1.0-6.0); PLATELET COUNT 115 10^3/uL (120.0-450.0); RBC 2.76 10^6/uL (3.5-6.1); WHITE BLOOD COUNT 4.3 10^3/uL (4.5-11.0)
[2018-04-26] MEDS: Budesonide 0.5 mg/2 ml Inhal Susp UD IH SCH (07:33)
[2018-04-26] MEDS: Arformoterol 15 mcg/2 ml Inh Sol IH SCH (07:33)
[2018-04-26 07:44] LABS: ALB/GLOB RATIO 1.3 (1.1-1.8); CALCIUM 6.9 mg/dL (8.4-10.5)
[2018-04-26 08:16] LABS: LYMPHOCYTE 2 % (22.0-35.0); NEUTROPHIL 98 % (50.0-70.0)
[2018-04-26 08:17] LABS: LARGE PLATELETS PRESENT; PLATELET ESTIMATE LOW (NORMAL)
[2018-04-26 08:25] VITALS: RESP 16
--- NOTE | 2018-04-26 08:52 | CP.PCM.PN ---
Subjective - Date & Time of Evaluation Date of Evaluation: 04/26/18 Time of Evaluation: 06:45 - Subjective Subjective: Lying in bed, Awake, alert, no distress Reason for consultation and follow up:Cardiac evaluation of shortness of breath, respiratory failure requiring intubation and admitted to ICU, post extubation, history of COPD, asthma, breast cancer. Seen and examined by me and Dr. Hernandez Objective - Vital Signs/Intake and Output Vital Signs (last 24 hours): Temp Pulse Resp BP Pulse Ox 97.8 F 74 16 112/49 L 94 L 04/26/18 06:00 04/26/18 06:00 04/26/18 06:00 04/26/18 06:00 04/26/18 06:00 Intake and Output: 04/26/18 04/26/18 06:59 18:59 Intake Total 720 Balance 720 - Medications Medications: Current Medications Albuterol Sulfate (Albuterol 0.083% Inhal Elvie (2.5 Mg/3 Ml) Ud) 2.5 mg INH [id number] [facility] Last Admin: 04/26/18 07:33 Dose: 2.5 mg Albuterol/Ipratropium (Duoneb 3 Mg/0.5 Mg (3 Ml) Ud) 3 ml IH Q2H PRN PRN Reason: Shortness of Breath Last Admin: 04/24/18 00:10 Dose: 3 ml Alprazolam (Xanax) 0.5 mg PO TID PRN; Protocol PRN Reason: Anxiety Last Admin: 04/25/18 17:54 Dose: 0.5 mg Arformoterol Tartrate (Brovana) 15 mcg IH [id number] [facility] Last Admin: 04/26/18 07:33 Dose: 15 mcg Aspirin (Aspirin Chewable) 81 mg PO DAILY [facility] Last Admin: 04/25/18 09:33 Dose: Not Given Atorvastatin Calcium (Lipitor) 40 mg PO DAILY [facility] Last Admin: 04/25/18 09:33 Dose: Not Given Bacitracin (Bacitracin) 0 gm TOP BID [facility] Last Admin: 04/25/18 11:00 Dose: Not Given Benzocaine/Menthol (Cepacol Sore Throat) 1 vy MT Q4H PRN PRN Reason: Sore Throat Last Admin: 04/20/18 21:49 Dose: 1 vy Budesonide (Pulmicort Respules) 0.5 mg IH [id number] [facility] Last Admin: 04/26/18 07:33 Dose: 0.5 mg Dextrose (Dextrose 50% Inj) 0 ml IV STAT PRN; Protocol PRN Reason: Hypoglycemia Protocol Ergocalciferol (Drisdol 50,000 Intl Units Cap) 1 cap PO Q7D [facility] Last Admin: 04/25/18 18:06 Dose: 1 cap Ferrous Gluconate (Fergon) 324 mg PO DAILY [facility] Last Admin: 04/25/18 09:33 Dose: Not Given Heparin Sodium (Porcine) (Heparin) 5,000 units SC Q8 [facility]; Protocol Last Admin: 04/26/18 05:49 Dose: 5,000 units Dextrose (Dextrose 5% In Water 1000 Ml) 1,000 mls @ 0 mls/hr IV .Q0M PRN; Protocol PRN Reason: Hypoglycemia Protocol Insulin Detemir (Levemir) 44 unit SC [facility] Last Admin: 04/25/18 22:31 Dose: 44 units Insulin Human Lispro (Humalog) 14 units SC AC [facility] Last Admin: 04/25/18 18:03 Dose: 14 units Insulin Human Lispro (Humalog Med) 0 units SC ACHS [facility]; Protocol Last Admin: 04/25/18 18:03 Dose: 1 units Metoprolol Tartrate (Lopressor) 25 mg PO BID [facility] Last Admin: 04/25/18 18:02 Dose: 25 mg Nicotine (Nicoderm Cq) 1 patch TD DAILY [facility] Last Admin: 04/25/18 18:05 Dose: 1 patch Pantoprazole Sodium (Protonix Ec Tab) 40 mg PO ACB [facility] Last Admin: 04/25/18 09:34 Dose: Not Given Paroxetine HCl (Paxil) 5 mg PO HS [facility] Last Admin: 04/25/18 21:32 Dose: 5 mg Prednisone (Prednisone Tab) 40 mg PO DAILY [facility] Last Admin: 04/25/18 18:01 Dose: 40 mg Vitamin B Complex/Vit C/Folic Acid (Nephro-Enrrique) 1 tab PO 0800 [facility] Last Admin: 04/25/18 09:33 Dose: Not Given - Labs Labs: 04/26/18 07:00 04/26/18 07:00 PT 11.9 SECONDS (9.4-12.5) 04/11/18 12:25 INR 1.05 04/11/18 12:25 APTT 25.3 Seconds (26.9-38.3) L 04/11/18 12:25 - Constitutional Appears: Non-toxic, No Acute Distress - Head Exam Head Exam: NORMAL INSPECTION, NORMOCEPHALIC - Eye Exam Eye Exam: Normal appearance Pupil Exam: NORMAL ACCOMODATION - ENT Exam ENT Exam: Mucous Membranes Moist, Normal Exam - Respiratory Exam Respiratory Exam: Decreased Breath Sounds, NORMAL BREATHING PATTERN - Cardiovascular Exam Cardiovascular Exam: +S1, +S2 Additional comments: right chest port - GI/Abdominal Exam GI & Abdominal Exam: Soft, Normal Bowel Sounds Assessment and Plan - Assessment and Plan (Free Text) Assessment: A 57 year old female, who was brought to the ER due to respiratory distress requiring intubation and admitted to ICU. History of chronic obstructive p ulmonary disease, still actively smokes,1 PPD x 40 years, asthma, breast cancer with chemo 06/2015, anxiety,depression, chronic back pain, diabetes, and recurrent urinary tract infection. She signed out against medical advice because she wanted to smoke. Prior to this admission diagnosed with for sepsis and hypercapnia and exacerbation of COPD. Low hemoglobin on admission and transfused 2 units of PRBC. Stabilized in ICU, extubated. Stabilized and now transferred to Medical unit. Recent echo 03/09/18 showed LVEF 62%-mild MR/TR. Cardiac status stable. Stable hemoglobin/hematocrit. Smoking cessation. Recent Chest X ray showed large right pleural effusion.Complete opacification of the right janay thorax with right sided volume and shift of the heart mediastinum towards the right . Patchy opacity at left base possible pneumonia. Scheduled for thoracenthesis but refused for the procedure. Evaluated by Psych. Followed up by oncology. Post bronchoscopy yesterday showed mucous plug. CT of chest post procedure showed right lower and middle lobe atelectasis. Plan: Cardiac status stable post bronchoscopy yesterday, showed mucous plug/lavaged No distress, denies shortness of breath Blood pressure controlled Heart rate controlled On ASA 81 mg daily,Lipitor 40 mg daily,Prednisone 40 mg daily Lopressor 25 mg BID, Nicoderm patch daily, Continue current medications Continue current treatment Smoking cessation Discharge planning, [facility] versus home Will follow up Plan and treatment discussed with Dr. Hernandez
[2018-04-26] MEDS: Pantoprazole 40 mg EC Tab PO SCH (08:54)
[2018-04-26] MEDS: Insulin Lispro 1 UNITS/0.01 ML SC SCH ×2 (08:54→11:57)
[2018-04-26] MEDS: Multivitamin Vitamin B Complex (Nephro-Vite) Tab PO SCH (08:54)
[2018-04-26] MEDS: Insulin Lispro (humaLOG) MEDIUM Coverage SC SCH ×2 (08:55→11:58)
[2018-04-26] MEDS: Bacitracin Ointment 30 GM TUBE TOP SCH (10:27)
--- NOTE | 2018-04-26 13:18 | PN ---
DATE: 04/26/2018 REFERRING PHYSICIAN: Darius Rdz MD SUBJECTIVE: The patient is sitting up at bedside. No acute distress. No overnight events reported. The patient reports feeling well this morning. The patient is status post bronchoscopy yesterday. The patient still has occasional cough and some shortness of breath with exertion. No headache, rhinitis, chest pain, abdominal pain, nausea, vomiting, diarrhea, leg pain or leg swelling reported. PHYSICAL EXAMINATION: VITAL SIGNS: Blood pressure 117/49, pulse 74, temperature 97.8, oxygen saturation 94% on nasal cannula. GENERAL: No acute distress. HEENT: Moist mucous membranes. Crowded airway. NECK: Supple. No JVD. CARDIOVASCULAR: S1, S2 audible. RESPIRATORY: Decreased breath sounds on the right. Few scattered rhonchi. ABDOMEN: Soft. Nontender. No distention. No organomegaly. EXTREMITIES: No bilateral lower extremity edema. NEUROLOGIC: Awake, alert, verbal. Able to follow commands. Hard of hearing. MEDICATIONS: Reviewed. Albuterol 2.5 mg inhalation every 6 hours, DuoNeb 3 mL inhalation every 2 hours p.r.n., Xanax 0.5 mg 3 times a day p.r.n., Brovana 15 mcg every 12 hours, aspirin 81 mg daily, Lipitor 40 mg daily, bacitracin topically twice a day to affected area, Cepacol throat lozenges every 4 hours p.r.n., Pulmicort 0.5 mg every 12 hours, ergocalciferol 50,000 units weekly, ferrous gluconate 324 mg daily, heparin 5000 units subcutaneously every 8 hours, Levemir 44 units at bedtime, Humalog 14 units subcutaneously a.c., Humalog sliding scale a.c. and h.s., metoprolol tartrate 25 mg twice a day, nicotine patch transdermally daily, Protonix 40 mg a.c., Paxil 5 mg at bedtime, prednisone 40 mg daily, Nephro-Enrrique 1 tablet daily. LABORATORY DATA: Reviewed. WBC 4.3, RBC 2.76, hemoglobin 8, hematocrit 26.5, platelets 115. Sodium 141, potassium 4.2, chloride 104, carbon dioxide 32, anion gap 9, BUN 54, creatinine 1.5, GFR 36, POC glucose 233, random glucose 222, calcium 6.9, total bilirubin 0.4, AST 19, ALT 46, alkaline phosphatase 59, total protein 5.3, albumin 3, globulin 2.3, albumin-globulin ratio 1.3. Chest CT shows right lower lobe and right middle lobe atelectasis, marked right-sided volume loss with shift of heart and mediastinum towards the right, aeration of the right upper lobe is noted since CT from 04/20/2018. Reticular and ground-glass opacity throughout the right upper lobe. Abnormal pleural thickening posterior right apex and lower posterolateral right hemithorax, small pleural effusion, right greater than left, fluid filling much of the lower esophagus, suspicious for neoplasm in left breast. Left axillary lymphadenopathy. Bronchoscopy report shows atelectasis of the right upper lobe, atelectasis of the right middle lobe, atelectasis of the right lower lobe, but airway examination of the left lung was normal. Mucus plug was found. Washings were obtained. Atelectasis secondary to a mucus plug. IMPRESSION AND PLAN: Chronic obstructive lung disease, extensive right lung mucus plugging, atelectasis, pleural effusion, diabetes, chronic lung disease, history of breast cancer with progressive disease, urinary tract infection, obstructive sleep apnea syndrome, status post bronchoscopy. Continue pulmonary toileting, inhaled bronchodilators. Discharge planning. The patient will need followup x-ray as outpatient. We will discontinue prednisone 40 mg and start the patient on prednisone 20 mg daily tapering dose. Fall precautions. Gastric prophylaxis.Deep venous thrombosis prophylaxis. Continue incentive spirometry. This patient seen and examined with Dr. Rucker. Discussed assessment and plan as described above. This patient seen and examined by Didier Dennis, nurse practitioner. Discussed assessment and plan as described above. Thank you for this consult. We will follow with you. Didier Dennis APN Lisa Rucker MD [facility]
--- NOTE | 2018-04-26 13:35 | CP.PCM.DIS ---
<Aj Mays Bhaskar - Last Filed: 04/26/18 13:50> Provider - Provider Date of Admission: 04/11/18 13:48 Attending physician: Darius Rdz MD Consults: 04/11/18 14:12 Infectious Disease Consult Routine Comment: Consulting Provider: Prasanth Malcolm Consulting Physician: Prasanth Malcolm Reason for Consult: cellulitis, copd flare, respiratory failure 04/11/18 15:02 Nephrology Consult Routine Comment: Consulting Provider: Marco Antonio Chatman Consulting Physician: Marco Antonio Chatman Reason for Consult: kevan on ckd 04/11/18 15:25 Physician Consult Routine Comment: Consulting Provider: Lisa Hernandez Consulting Physician: Lisa Hernandez Reason for Consult: hypercapnic respiratory failure, hx CHF 04/11/18 19:50 Case Management Referral Routine Comment: DISCHARGE PLANNING Physician Instructions: Reason For Exam: EVALUATION Reason for Referral: Distance Learning Administrator Eval Inpatient PINION STAKER Core Measures Referral Routine Comment: COPD EXACERBATION Physician Instructions: Reason For Exam: EVALUATION Nursing Referral for Wound Care Routine Comment: Physician Instructions: Reason For Exam: EVALUATION Transition In Care/Readmission Reduction Routine Comment: Physician Instructions: Reason For Exam: EVALUATION 04/11/18 20:00 Social Work Referral Routine Comment: DECONDITIONING,DISCHARGE PLANNING. Physician Instructions: Reason For Exam: EVALUATION 04/12/18 04:41 Nursing Referral for Wound Care Routine Comment: Physician Instructions: Reason For Exam: Pt w/ sm opening to L upperlateral centeno; weeping. 04/12/18 06:59 Palliative Care Consult Routine Comment: prior admission in where DNR mentioned Consulting Provider: Camryn Mills Physician Instructions: Reason For Exam: goals of care 04/12/18 07:24 Consult [Physician Consult] Routine Comment: Consulting Provider: Melanie Gleason Consulting Physician: Melanie Gleason Reason for Consult: anemia, h/o breast cancer 04/12/18 11:53 Physician Consult Routine Comment: Consulting Provider: Lisa Rucker Consulting Physician: Lisa Rucker Reason for Consult: R lung base consolidation, pleural effusion 04/13/18 08:00 Nursing Referral for Wound Care Routine Comment: Physician Instructions: Reason For Exam: left centeno - skin tear 04/15/18 11:11 Consult [Physician Consult] Routine Comment: Consulting Provider: Beba Ernst Consulting Physician: Beba Ernst Reason for Consult: ANXIETY, DEPRESSION 04/16/18 04:11 Nursing Referral for Wound Care Routine Comment: Physician Instructions: Reason For Exam: PROTOCOL 04/16/18 15:51 Consult [Physician Consult] Routine Comment: Consulting Provider: Warren Olivera Consulting Physician: Warren Olivera Reason for Consult: poss R lung thoracentesis, hx breast Ca 04/18/18 15:47 Psychiatry Consult Routine Comment: pt now refusing most orders; speaking nonsensicall Consulting Provider: Pamela Schulte Consulting Physician: Pamela Schutle Reason for Consult: capacity eval 04/20/18 10:45 Physician Consult Routine Comment: Consulting Provider: Warren Olivera Consulting Physician: Warren Olivera Reason for Consult: thoracenthesis Additional Comments: patient requesting/agreed to procedure at this time. 04/20/18 14:37 Physician Consult Routine Comment: Consulting Provider: Sebastian Villela Consulting Physician: Sebastian Villela Reason for Consult: thoracentesis 04/22/18 10:34 Consult [Physician Consult] Routine Comment: Consulting Provider: Ernestina Hawkins Consulting Physician: Ernestina Hawkins Reason for Consult: uncontrolled DM 04/24/18 15:43 VNA [Case Management Referral] Routine Comment: Physician Instructions: PT EVAL FOR STRENGTHENING AND HEP Reason For Exam: VS FOR DISEASE AND MEDICATION MANAGEMENT. Reason for Referral: VNA Eval Time Spent in preparation of Discharge (in minutes): 35 Diagnosis - Discharge Diagnosis (1) Hypercapnic respiratory failure Status: Acute Priority: High (2) Anxiety Status: Chronic Priority: High (3) Breast cancer Status: Chronic Priority: High (4) COPD (chronic obstructive pulmonary disease) Status: Chronic Priority: High (5) Carbon dioxide narcosis Status: Acute Priority: High Hospital Course - Lab Results Lab Results: Micro Results 04/11/18 12:45 Blood Blood Culture - Final NO GROWTH AFTER 5 DAYS 04/11/18 13:05 Blood Blood Culture - Final NO GROWTH AFTER 5 DAYS 04/11/18 13:05 Blood Gram Stain - Final TEST NOT PERFORMED 04/11/18 16:00 Naris MRSA Culture (Admit) - Final MRSA NOT DETECTED 04/11/18 14:00 Urine Random Urine Culture - Final No Growth (<1,000 CFU/ML) Most Recent Lab Values WBC 4.3 10^3/uL (4.5-11.0) L 04/26/18 07:00 RBC 2.76 10^6/uL (3.5-6.1) L 04/26/18 07:00 Hgb 8.0 g/dL (12.0-16.0) L 04/26/18 07:00 Hct 26.5 % (36.0-48.0) L 04/26/18 07:00 MCV 96.0 fl (80.0-105.0) 04/26/18 07:00 MCH 29.0 pg (25.0-35.0) 04/26/18 07:00 MCHC 30.2 g/dl (31.0-37.0) L 04/26/18 07:00 RDW 19.0 % (11.5-14.5) H 04/26/18 07:00 Plt Count 115 10^3/uL (120.0-450.0) L 04/26/18 07:00 MPV 10.6 fl (7.0-11.0) 04/26/18 07:00 Gran % 93.8 % (50.0-68.0) H 04/12/18 08:00 Neut % (Auto) 93.7 % (50.0-68.0) H 04/26/18 07:00 Lymph % (Auto) 5.6 % (22.0-35.0) L 04/26/18 07:00 [place] % (Auto) 0.7 % (1.0-6.0) L 04/26/18 07:00 Eos % (Auto) 0.0 % (1.5-5.0) L 04/26/18 07:00 Baso % (Auto) 0.0 % (0.0-3.0) 04/26/18 07:00 Gran # 9.68 (1.4-6.5) H 04/12/18 08:00 Lymph # (Auto) 0.2 (1.2-3.4) L 04/26/18 07:00 [place] # (Auto) 0.0 (0.1-0.6) L 04/26/18 07:00 Eos # (Auto) 0.0 (0.0-0.7) 04/26/18 07:00 Baso # (Auto) 0.00 K/mm3 (0.0-2.0) 04/26/18 07:00 Absolute Neuts (auto) 4.02 (1.4-6.5) 04/26/18 07:00 Neutrophils % (Manual) 98 % (50.0-70.0) H 04/26/18 07:00 Lymphocytes % (Manual) 2 % (22.0-35.0) L 04/26/18 07:00 Monocytes % (Manual) TEST NOT PERFORMED 04/26/18 07:00 Platelet Evaluation Low (NORMAL) 04/26/18 07:00 Large Platelets Present 04/26/18 07:00 Retic Count 2.07 % (0.5-1.5) H 04/11/18 13:00 PT 11.9 SECONDS (9.4-12.5) 04/11/18 12:25 INR 1.05 04/11/18 12:25 APTT 25.3 Seconds (26.9-38.3) L 04/11/18 12:25 pCO2 55 mm/Hg (35-45) H 04/12/18 08:21 pO2 69.0 mm/Hg (80-100) L 04/12/18 08:21 HCO3 36.5 mmol/L (21-28) H 04/12/18 08:21 ABG pH 7.43 (7.35-7.45) 04/12/18 08:21 ABG Total CO2 38.2 mmol.L (22-28) H 04/12/18 08:21 ABG O2 Saturation 97.7 % (95-98) 04/12/18 08:21 ABG O2 Content 9.3 ML/dl (15-23) L 04/12/18 08:21 ABG Base Excess 11.0 mmol/L (-2.0-3.0) H 04/12/18 08:21 ABG Hemoglobin 6.9 g/dL (11.7-17.4) L 04/12/18 08:21 ABG Carboxyhemoglobin 2.1 % (0.5-1.5) H 04/12/18 08:21 POC ABG HHb (Measured) 2.2 % (0-5) 04/12/18 08:21 ABG Methemoglobin 1.2 % (0.0-3.0) 04/12/18 08:21 ABG O2 Capacity 9.5 mL/dl (16-24) L 04/12/18 08:21 ABG Potassium 3.8 mmol/L (3.6-5.2) 04/11/18 12:30 Hgb O2 Saturation 94.5 % (95.0-98.0) L 04/12/18 08:21 Sodium 147.0 mmol/L (132-148) 04/11/18 12:30 Chloride 110.0 mmol/L (98-107) H 04/11/18 12:30 Glucose 372 mg/dl (65-105) H 04/11/18 12:30 Lactate 0.5 mmol/L (0.7-2.1) L 04/11/18 12:30 FiO2 40.0 % 04/12/18 08:21 Crit Value Called To reggie Shirley 04/11/18 12:30 Crit Value Called By Lauren 04/11/18 12:30 Blood Gas Notified Time 1242 04/11/18 12:30 Sodium 141 mmol/L (132-148) 04/26/18 07:00 Potassium 4.2 mmol/L (3.6-5.0) 04/26/18 07:00 Chloride 104 mmol/L (98-107) 04/26/18 07:00 Carbon Dioxide 32 mmol/L (21-33) 04/26/18 07:00 Anion Gap 9 (10-20) L 04/26/18 07:00 BUN 54 mg/dL (7-21) H 04/26/18 07:00 Creatinine 1.5 mg/dl (0.7-1.2) H 04/26/18 07:00 Est GFR ( Amer) 43 04/26/18 07:00 Est GFR (Non-Af Amer) 36 04/26/18 07:00 POC Glucose (mg/dL) 197 mg/dL (65-110) H 04/26/18 11:24 Random Glucose 222 mg/dL (70-110) H 04/26/18 07:00 Hemoglobin A1c 8.7 % (4.2-6.5) H 04/23/18 06:30 Calcium 6.9 mg/dL (8.4-10.5) L* 04/26/18 07:00 Phosphorus 3.9 mg/dL (2.5-4.5) 04/11/18 12:25 Magnesium 2.5 mg/dL (1.7-2.2) H 04/11/18 12:25 Total Bilirubin 0.4 mg/dL (0.2-1.3) 04/26/18 07:00 AST 19 U/L (14-36) 04/26/18 07:00 ALT 46 U/L (7-56) 04/26/18 07:00 Alkaline Phosphatase 59 U/L (38-126) 04/26/18 07:00 Total Creatine Kinase 53 U/L (35-230) 04/11/18 12:25 Troponin I 0.08 ng/mL D 04/11/18 12:25 NT-Pro-B Natriuret Pep 7140 pg/mL (0-450) H 04/11/18 12:25 Total Protein 5.3 g/dL (5.8-8.3) L 04/26/18 07:00 Albumin 3.0 g/dL (3.0-4.8) 04/26/18 07:00 Globulin 2.3 gm/dL 04/26/18 07:00 Albumin/Globulin Ratio 1.3 (1.1-1.8) 04/26/18 07:00 Carcinoembryonic Ag 31.9 ng/mL (0.0-3.0) H 04/22/18 06:00 CA 15-3 Antigen 18.8 U/mL (0-35) 04/22/18 06:00 CA 27-29 19 U/mL (<38) 04/22/18 06:00 Procalcitonin 0.55 NG/ML (0.19-0.49) H 04/11/18 14:00 TSH 3rd Generation 0.71 mIU/mL (0.46-4.68) 04/23/18 06:30 Arterial Blood Potassium 3.8 mmol/L (3.6-5.2) 04/11/18 12:30 Urine Color Light yellow (YELLOW) 04/11/18 12:45 Urine Appearance Sl cloudy (CLEAR) 04/11/18 12:45 Urine pH 6.0 (4.7-8.0) 04/11/18 12:45 Ur Specific [place] 1.020 (1.005-1.035) 04/11/18 12:45 Urine Protein 30 mg/dL (<30 mg/dL) H 04/11/18 12:45 Urine Glucose (UA) 100 mg/dL (NEGATIVE) H 04/11/18 12:45 Urine Ketones Negative mg/dL (NEGATIVE) 04/11/18 12:45 Urine Blood Trace-intact (NEGATIVE) H 04/11/18 12:45 Urine Nitrate Negative (NEGATIVE) 04/11/18 12:45 Urine Bilirubin Negative (NEGATIVE) 04/11/18 12:45 Urine Urobilinogen 0.2 E.U./dL (<1 E.U./dL) 04/11/18 12:45 Ur Leukocyte Esterase Small [place]/uL (NEGATIVE) H 04/11/18 12:45 Urine RBC 0 - 2 /hpf (0-2) 04/11/18 12:45 Urine WBC 5 - 10 /hpf (0-6) H 04/11/18 12:45 Ur Epithelial Cells 0 - 2 /hpf (0-5) 04/11/18 12:45 Urine Bacteria Few /hpf (NONE) 04/11/18 12:45 Urine Other Uyeast /hpf 04/11/18 12:45 Stool Occult Blood Negative (NEGATIVE) 04/21/18 10:00 Urine Opiates Screen Negative (NEGATIVE) 04/15/18 18:47 Urine Methadone Screen Negative (NEGATIVE) 04/15/18 18:47 Ur Barbiturates Screen Negative (NEGATIVE) 04/15/18 18:47 Ur Phencyclidine Scrn Negative (NEGATIVE) 04/15/18 18:47 Ur Amphetamines Screen Negative (NEGATIVE) 04/15/18 18:47 U Benzodiazepines Scrn Positive (NEGATIVE) H 04/15/18 18:47 U Oth Cocaine Metabols Negative (NEGATIVE) 04/15/18 18:47 U Cannabinoids Screen Negative (NEGATIVE) 04/15/18 18:47 Influenza Typ A,B (EIA) Negative for flu a/b (NEGATIVE) 04/11/18 12:45 Ur L.pneumophila Ag Negative (NEGATIVE) 04/11/18 15:00 Ur Strep pneumoniae Ag Not detected (Not Detected) 04/11/18 16:15 Blood Type B POSITIVE 04/12/18 08:00 Antibody Screen Negative 04/12/18 08:00 Crossmatch See Detail 04/12/18 08:00 BBK History Checked Patient has bt 04/12/18 08:00 - Hospital Course Hospital Course: Hospitalization Pt was intubated at the time of the history and physical. Pt is a 57yo female with a PMH of COPD, asthma, breast Ca, anxiety, DM, recurrent UTIs who left [facility] yesterday AMA to smoke a cigarette. Pt was brought in my medics to the ED. Pt was then placed on CPAP and she was given duonebs. Pt was sedated and intubated in the ED, and admitted to the ICU. During pt hospital course, palliative care, ID, nephrology, Cardio, heme/onc, pulmonology, interventional radiology, endocrinology, psyc were all consulted. Please refer to individual notes for more detail. Discharge Please follow up with primary care physician, Dr Sosa within the next 3-5 days, with Dr Rucker within 2 week. Avoid all further xanax or opiate medications, as you have had several overdoses in the past. These medications could result in serious harm or . Psyc has advised that you start taking Paxil for your anxiety. Please use the Bacitracin for the scrapes on arms. P lease take Iron 325 three times per day. Please take medrol dose pack as directed. You are being sent with a prescription for albuterol and also advair. Insulin has been changed to: Humalog 14 AC, and Levemir 44 HS. - Date & Time of H&P Date of H&P: 04/26/18 Time of H&P: 07:00 Discharge Exam - Head Exam Head Exam: NORMAL INSPECTION, NORMOCEPHALIC - Eye Exam Eye Exam: EOMI Pupil Exam: NORMAL ACCOMODATION - ENT Exam ENT Exam: Mucous Membranes Moist - Neck Exam Neck exam: Full Rom - Respiratory Exam Respiratory Exam: NORMAL BREATHING PATTERN, UNREMARKABLE. absent: Accessory Muscle Use, Respiratory Distress - Cardiovascular Exam Cardiovascular Exam: RRR, +S1, +S2. absent: Diastolic murmur, Systolic Murmur - GI/Abdominal Exam GI & Abdominal Exam: Normal Bowel Sounds - Extremities Exam Extremities exam: full ROM, pedal edema, pedal pulses present - Neurological Exam Neurological exam: Alert - Psychiatric Exam Psychiatric exam: Normal Affect, Normal Mood - Skin Skin Exam: Dry, Normal Color, Warm Discharge Plan - Discharge Medications Prescriptions: Fluticasone/Salmeterol 100/50 [Advair Diskus 100/50] 1 puff INH BID #1 inhaler Insulin Detemir [Levemir] 44 unit SC HS #1 bottle Insulin Lispro [humALOG] 14 units SC AC #1 bottle Metoprolol Tartrate [Lopressor] 25 mg PO BID #60 tab PARoxetine [Paxil] 5 mg PO HS 30 Days tab predniSONE [Prednisone] 20 mg PO DAILY #5 tab - Follow Up Plan Condition: CRITICAL Disposition: HOME/ ROUTINE Instructions: Chronic Obstructive Pulmonary Disease (COPD), Including Emphysema, Quitting Smoking, Flu Vaccine Additional Instructions: 1. please follow up with your primary care physician, Dr Sosa within the next 3-5 days 2. please follow up with Dr Rucker within 2 weeks 3. avoid all further xanax or opiate medications, as you have had several overdoses in the past. These medications could result in serious harm or . 4. psyc has advised that you start taking Paxil for your anxiety 5. please use the Bacitracin for the scrapes on your arms 6. please take a multivitamin daily 7. please take Iron 325 three times per day 8. please take vitamin D every week 9. please take your medrol dose pack as directed 10. you are being sent with a prescription for albuterol and also advair 11. your insulin has been changed to: Humalog 14 AC, and Levemir 44 HS 11. If your symptoms return or worsen, please go to the nearest emergency department <Darius Rdz - Last Filed: 04/26/18 17:24> Provider - Provider Date of Admission: 04/11/18 13:48 Attending physician: Darius Rdz MD Consults: 04/11/18 14:12 Infectious Disease Consult Routine Comment: Consulting Provider: Prasanth Malcolm Consulting Physician: Prasanth Malcolm Reason for Consult: cellulitis, copd flare, respiratory failure 04/11/18 15:02 Nephrology Consult Routine Comment: Consulting Provider: Marco Antonio Chatman Consulting Physician: Marco Antonio Chatman Reason for Consult: kevan on ckd 04/11/18 15:25 Physician Consult Routine Comment: Consulting Provider: Lisa Hernandez Consulting Physician: Lisa Hernandez Reason for Consult: hypercapnic respiratory failure, hx CHF 04/11/18 19:50 Case Management Referral Routine Comment: DISCHARGE PLANNING Physician Instructions: Reason For Exam: EVALUATION Reason for Referral: Distance Learning Administrator Eval Inpatient PINION STAKER Core Measures Referral Routine Comment: COPD EXACERBATION Physician Instructions: Reason For Exam: EVALUATION Nursing Referral for Wound Care Routine Comment: Physician Instructions: Reason For Exam: EVALUATION Transition In Care/Readmission Reduction Routine Comment: Physician Instructions: Reason For Exam: EVALUATION 04/11/18 20:00 Social Work Referral Routine Comment: DECONDITIONING,DISCHARGE PLANNING. Physician Instructions: Reason For Exam: EVALUATION 04/12/18 04:41 Nursing Referral for Wound Care Routine Comment: Physician Instructions: Reason For Exam: Pt w/ sm opening to L upperlateral centeno; weeping. 04/12/18 06:59 Palliative Care Consult Routine Comment: prior admission in where DNR mentioned Consulting Provider: Camryn Mills Physician Instructions: Reason For Exam: goals of care 04/12/18 07:24 Consult [Physician Consult] Routine Comment: Consulting Provider: Melanie Gleason Consulting Physician: Melanie Gleason Reason for Consult: anemia, h/o breast cancer 04/12/18 11:53 Physician Consult Routine Comment: Consulting Provider: Lisa Rucker Consulting Physician: Lisa Rucker Reason for Consult: R lung base consolidation, pleural effusion 04/13/18 08:00 Nursing Referral for Wound Care Routine Comment: Physician Instructions: Reason For Exam: left centeno - skin tear 04/15/18 11:11 Consult [Physician Consult] Routine Comment: Consulting Provider: Beba Ernst Consulting Physician: Beba Ernst Reason for Consult: ANXIETY, DEPRESSION 04/16/18 04:11 Nursing Referral for Wound Care Routine Comment: Physician Instructions: Reason For Exam: PROTOCOL 04/16/18 15:51 Consult [Physician Consult] Routine Comment: Consulting Provider: Warren Olivera Consulting Physician: Warren Olivera Reason for Consult: poss R lung thoracentesis, hx breast Ca 04/18/18 15:47 Psychiatry Consult Routine Comment: pt now refusing most orders; speaking nonsensicall Consulting Provider: Pamela Schulte Consulting Physician: Pamela Schulte Reason for Consult: capacity eval 04/20/18 10:45 Physician Consult Routine Comment: Consulting Provider: Warren Olivera Consulting Physician: Warren Olivera Reason for Consult: thoracenthesis Additional Comments: patient requesting/agreed to procedure at this time. 04/20/18 14:37 Physician Consult Routine Comment: Consulting Provider: Sebastian Villela Consulting Physician: Sebastian Villela Reason for Consult: thoracentesis 04/22/18 10:34 Consult [Physician Consult] Routine Comment: Consulting Provider: Ernestina Hawkins Consulting Physician: Ernestina Hawkins Reason for Consult: uncontrolled DM 04/24/18 15:43 VNA [Case Management Referral] Routine Comment: Physician Instructions: PT EVAL FOR STRENGTHENING AND HEP Reason For Exam: VS FOR DISEASE AND MEDICATION MANAGEMENT. Reason for Referral: VNA Eval Hospital Course - Lab Results Lab Results: Micro Results 04/25/18 16:19 Other: Please Indicate Mycobacterial Culture - Preliminary 04/11/18 12:45 Blood Blood Culture - Final NO GROWTH AFTER 5 DAYS 04/11/18 13:05 Blood Blood Culture - Final NO GROWTH AFTER 5 DAYS 04/11/18 13:05 Blood Gram Stain - Final TEST NOT PERFORMED 04/11/18 16:00 Naris MRSA Culture (Admit) - Final MRSA NOT DETECTED 04/11/18 14:00 Urine Random Urine Culture - Final No Growth (<1,000 CFU/ML) Most Recent Lab Values WBC 4.3 10^3/uL (4.5-11.0) L 04/26/18 07:00 RBC 2.76 10^6/uL (3.5-6.1) L 04/26/18 07:00 Hgb 8.0 g/dL (12.0-16.0) L 04/26/18 07:00 Hct 26.5 % (36.0-48.0) L 04/26/18 07:00 MCV 96.0 fl (80.0-105.0) 04/26/18 07:00 MCH 29.0 pg (25.0-35.0) 04/26/18 07:00 MCHC 30.2 g/dl (31.0-37.0) L 04/26/18 07:00 RDW 19.0 % (11.5-14.5) H 04/26/18 07:00 Plt Count 115 10^3/uL (120.0-450.0) L 04/26/18 07:00 MPV 10.6 fl (7.0-11.0) 04/26/18 07:00 Gran % 93.8 % (50.0-68.0) H 04/12/18 08:00 Neut % (Auto) 93.7 % (50.0-68.0) H 04/26/18 07:00 Lymph % (Auto) 5.6 % (22.0-35.0) L 04/26/18 07:00 [place] % (Auto) 0.7 % (1.0-6.0) L 04/26/18 07:00 Eos % (Auto) 0.0 % (1.5-5.0) L 04/26/18 07:00 Baso % (Auto) 0.0 % (0.0-3.0) 04/26/18 07:00 Gran # 9.68 (1.4-6.5) H 04/12/18 08:00 Lymph # (Auto) 0.2 (1.2-3.4) L 04/26/18 07:00 [place] # (Auto) 0.0 (0.1-0.6) L 04/26/18 07:00 Eos # (Auto) 0.0 (0.0-0.7) 04/26/18 07:00 Baso # (Auto) 0.00 K/mm3 (0.0-2.0) 04/26/18 07:00 Absolute Neuts (auto) 4.02 (1.4-6.5) 04/26/18 07:00 Neutrophils % (Manual) 98 % (50.0-70.0) H 04/26/18 07:00 Lymphocytes % (Manual) 2 % (22.0-35.0) L 04/26/18 07:00 Monocytes % (Manual) TEST NOT PERFORMED 04/26/18 07:00 Platelet Evaluation Low (NORMAL) 04/26/18 07:00 Large Platelets Present 04/26/18 07:00 Retic Count 2.07 % (0.5-1.5) H 04/11/18 13:00 PT 11.9 SECONDS (9.4-12.5) 04/11/18 12:25 INR 1.05 04/11/18 12:25 APTT 25.3 Seconds (26.9-38.3) L 04/11/18 12:25 pCO2 55 mm/Hg (35-45) H 04/12/18 08:21 pO2 69.0 mm/Hg (80-100) L 04/12/18 08:21 HCO3 36.5 mmol/L (21-28) H 04/12/18 08:21 ABG pH 7.43 (7.35-7.45) 04/12/18 08:21 ABG Total CO2 38.2 mmol.L (22-28) H 04/12/18 08:21 ABG O2 Saturation 97.7 % (95-98) 04/12/18 08:21 ABG O2 Content 9.3 ML/dl (15-23) L 04/12/18 08:21 ABG Base Excess 11.0 mmol/L (-2.0-3.0) H 04/12/18 08:21 ABG Hemoglobin 6.9 g/dL (11.7-17.4) L 04/12/18 08:21 ABG Carboxyhemoglobin 2.1 % (0.5-1.5) H 04/12/18 08:21 POC ABG HHb (Measured) 2.2 % (0-5) 04/12/18 08:21 ABG Methemoglobin 1.2 % (0.0-3.0) 04/12/18 08:21 ABG O2 Capacity 9.5 mL/dl (16-24) L 04/12/18 08:21 ABG Potassium 3.8 mmol/L (3.6-5.2) 04/11/18 12:30 Hgb O2 Saturation 94.5 % (95.0-98.0) L 04/12/18 08:21 Sodium 147.0 mmol/L (132-148) 04/11/18 12:30 Chloride 110.0 mmol/L (98-107) H 04/11/18 12:30 Glucose 372 mg/dl (65-105) H 04/11/18 12:30 Lactate 0.5 mmol/L (0.7-2.1) L 04/11/18 12:30 FiO2 40.0 % 04/12/18 08:21 Crit Value Called To reggie Shirley 04/11/18 12:30 Crit Value Called By Lauren 04/11/18 12:30 Blood Gas Notified Time 1242 04/11/18 12:30 Sodium 141 mmol/L (132-148) 04/26/18 07:00 Potassium 4.2 mmol/L (3.6-5.0) 04/26/18 07:00 Chloride 104 mmol/L (98-107) 04/26/18 07:00 Carbon Dioxide 32 mmol/L (21-33) 04/26/18 07:00 Anion Gap 9 (10-20) L 04/26/18 07:00 BUN 54 mg/dL (7-21) H 04/26/18 07:00 Creatinine 1.5 mg/dl (0.7-1.2) H 04/26/18 07:00 Est GFR ( Amer) 43 04/26/18 07:00 Est GFR (Non-Af Amer) 36 04/26/18 07:00 POC Glucose (mg/dL) 197 mg/dL (65-110) H 04/26/18 11:24 Random Glucose 222 mg/dL (70-110) H 04/26/18 07:00 Hemoglobin A1c 8.7 % (4.2-6.5) H 04/23/18 06:30 Calcium 6.9 mg/dL (8.4-10.5) L* 04/26/18 07:00 Phosphorus 3.9 mg/dL (2.5-4.5) 04/11/18 12:25 Magnesium 2.5 mg/dL (1.7-2.2) H 04/11/18 12:25 Total Bilirubin 0.4 mg/dL (0.2-1.3) 04/26/18 07:00 AST 19 U/L (14-36) 04/26/18 07:00 ALT 46 U/L (7-56) 04/26/18 07:00 Alkaline Phosphatase 59 U/L (38-126) 04/26/18 07:00 Total Creatine Kinase 53 U/L (35-230) 04/11/18 12:25 Troponin I 0.08 ng/mL D 04/11/18 12:25 NT-Pro-B Natriuret Pep 7140 pg/mL (0-450) H 04/11/18 12:25 Total Protein 5.3 g/dL (5.8-8.3) L 04/26/18 07:00 Albumin 3.0 g/dL (3.0-4.8) 04/26/18 07:00 Globulin 2.3 gm/dL 04/26/18 07:00 Albumin/Globulin Ratio 1.3 (1.1-1.8) 04/26/18 07:00 Carcinoembryonic Ag 31.9 ng/mL (0.0-3.0) H 04/22/18 06:00 CA 15-3 Antigen 18.8 U/mL (0-35) 04/22/18 06:00 CA 27-29 19 U/mL (<38) 04/22/18 06:00 Procalcitonin 0.55 NG/ML (0.19-0.49) H 04/11/18 14:00 TSH 3rd Generation 0.71 mIU/mL (0.46-4.68) 04/23/18 06:30 Arterial Blood Potassium 3.8 mmol/L (3.6-5.2) 04/11/18 12:30 Urine Color Light yellow (YELLOW) 04/11/18 12:45 Urine Appearance Sl cloudy (CLEAR) 04/11/18 12:45 Urine pH 6.0 (4.7-8.0) 04/11/18 12:45 Ur Specific [place] 1.020 (1.005-1.035) 04/11/18 12:45 Urine Protein 30 mg/dL (<30 mg/dL) H 04/11/18 12:45 Urine Glucose (UA) 100 mg/dL (NEGATIVE) H 04/11/18 12:45 Urine Ketones Negative mg/dL (NEGATIVE) 04/11/18 12:45 Urine Blood Trace-intact (NEGATIVE) H 04/11/18 12:45 Urine Nitrate Negative (NEGATIVE) 04/11/18 12:45 Urine Bilirubin Negative (NEGATIVE) 04/11/18 12:45 Urine Urobilinogen 0.2 E.U./dL (<1 E.U./dL) 04/11/18 12:45 Ur Leukocyte Esterase Small [place]/uL (NEGATIVE) H 04/11/18 12:45 Urine RBC 0 - 2 /hpf (0-2) 04/11/18 12:45 Urine WBC 5 - 10 /hpf (0-6) H 04/11/18 12:45 Ur Epithelial Cells 0 - 2 /hpf (0-5) 04/11/18 12:45 Urine Bacteria Few /hpf (NONE) 04/11/18 12:45 Urine Other Uyeast /hpf 04/11/18 12:45 Stool Occult Blood Negative (NEGATIVE) 04/21/18 10:00 Urine Opiates Screen Negative (NEGATIVE) 04/15/18 18:47 Urine Methadone Screen Negative (NEGATIVE) 04/15/18 18:47 Ur Barbiturates Screen Negative (NEGATIVE) 04/15/18 18:47 Ur Phencyclidine Scrn Negative (NEGATIVE) 04/15/18 18:47 Ur Amphetamines Screen Negative (NEGATIVE) 04/15/18 18:47 U Benzodiazepines Scrn Positive (NEGATIVE) H 04/15/18 18:47 U Oth Cocaine Metabols Negative (NEGATIVE) 04/15/18 18:47 U Cannabinoids Screen Negative (NEGATIVE) 04/15/18 18:47 Influenza Typ A,B (EIA) Negative for flu a/b (NEGATIVE) 04/11/18 12:45 Ur L.pneumophila Ag Negative (NEGATIVE) 04/11/18 15:00 Ur Strep pneumoniae Ag Not detected (Not Detected) 04/11/18 16:15 Blood Type B POSITIVE 04/12/18 08:00 Antibody Screen Negative 04/12/18 08:00 Crossmatch See Detail 04/12/18 08:00 BBK History Checked Patient has bt 04/12/18 08:00 Attending/Attestation - Attestation I have personally seen and examined this patient.: Yes I have fully participated in the care of the patient.: Yes I have reviewed all pertinent clinical information, including history, physical exam and plan: Yes Notes (Text): 04/26/18 17:22 Attending note; Patient seen and examined with resident in the morning. Patient's daughter by the bedside. Patient is alert and awake. Currently on oxygen. Patient is a 57 year old female with past medical history significant for COPD, asthma, untreated breast cancer, anemia, anxiety, and recurrent UTIs that presented to the emergency room for respiratory failure. 1. Pleural effusion/Complete opacification of right hemithorax. Status post bronchoscopy. Repeat CT showed improved aeration in the right upper lung. Patient clinically the same. Discussed with pulmonary in detail. Patient can be discharged home with close outpatient follow-up. 2. Acute hypercapnic respiratory failure. S/P intubation and extubation. Improved significantly. Continue Brovana and Pulmicort. Continue Prednisone. Continue BiPAP at night. Needs close pulmonary follow-up as outpatient. Needs sleep study as outpatient. 3. Acute on CKD: . Message Clerk evaluation appreciated. creatinine stable. 4. Healthcare associated pneumonia. s/p treatment with cefepime. Leukocytosis resolved. Afebrile. Blood cultures with no growth. Procalcitonin 0.55. Influenza negative, Urine for legionella negative. Urine for strep pneumoniae negative. 5. Anemia. Likely secondary to malignancy and chronic disease. S/P 2 units PRBCs. HB is 8.0. needs close outpatient follow up with Dr. Gleason. 6. DM2 with hyperglycemia. Continue insulin sliding scale. Continue Levemir Endocrinology evaluation appreciated. 7. Essential hypertension. Continue Metoporolol. 8. Hyperlipidemia. Continue lipitor. 9. History of breast cancer. S/P 1 cycle of chemo, patient refused chemo and surgery post one cycle. Will need repeat Chest CT in one month. Follow-up with Dr. Gleason. 10. Tobacco abuse. Patient was counseled at length on tobacco cessation. Continue with nicotine patch. 11. Depression and Anxiety. Continue Paxil 5 mg at bedtime. on xanax prn. Patient with thew long standing history of benzo dependency. 12. Noncompliance with follow-up. The need for close follow-up with PMD and other senior telecommunications consultant explained in detail. The diagnosis, treatment option and follow-up plan explained in detail. prognosis is poor due to multiple medical issues, continue smoking, benzodiazepine use and non compliance. upon discharge the patient will follow up with PMD Dr. Sosa. 04/26/18 17:24
--- NOTE | 2018-04-26 13:37 | CP.PCM.PN ---
Subjective - Date & Time of Evaluation Date of Evaluation: 04/26/18 Time of Evaluation: 11:30 - Subjective Subjective: Patient is not in distress, afebrile. Objective - Vital Signs/Intake and Output Vital Signs (last 24 hours): Temp Pulse Resp BP Pulse Ox 98.2 F 90 20 116/51 L 100 04/24/18 06:00 04/24/18 10:04 04/24/18 06:00 04/24/18 10:04 04/24/18 06:00 Intake and Output: 04/24/18 04/24/18 06:59 18:59 Intake Total 720 Balance 720 - Medications Medications: Current Medications Albuterol Sulfate (Albuterol 0.083% Inhal Elvie (2.5 Mg/3 Ml) Ud) 2.5 mg INH [id number] [facility] Last Admin: 04/24/18 13:42 Dose: 2.5 mg Albuterol/Ipratropium (Duoneb 3 Mg/0.5 Mg (3 Ml) Ud) 3 ml IH Q2H PRN PRN Reason: Shortness of Breath Last Admin: 04/24/18 00:10 Dose: 3 ml Alprazolam (Xanax) 0.5 mg PO TID PRN; Protocol PRN Reason: Anxiety Last Admin: 04/24/18 10:26 Dose: 0.5 mg Arformoterol Tartrate (Brovana) 15 mcg IH [id number] [facility] Last Admin: 04/24/18 07:26 Dose: 15 mcg Aspirin (Aspirin Chewable) 81 mg PO DAILY [facility] Last Admin: 04/24/18 10:03 Dose: 81 mg Atorvastatin Calcium (Lipitor) 40 mg PO DAILY [facility] Last Admin: 04/24/18 10:03 Dose: 40 mg Bacitracin (Bacitracin) 0 gm TOP BID [facility] Last Admin: 04/24/18 12:29 Dose: Not Given Benzocaine/Menthol (Cepacol Sore Throat) 1 vy MT Q4H PRN PRN Reason: Sore Throat Last Admin: 04/20/18 21:49 Dose: 1 vy Budesonide (Pulmicort Respules) 0.5 mg IH [id number] [facility] Last Admin: 04/24/18 07:27 Dose: 0.5 mg Dextrose (Dextrose 50% Inj) 0 ml IV STAT PRN; Protocol PRN Reason: Hypoglycemia Protocol Ergocalciferol (Drisdol 50,000 Intl Units Cap) 1 cap PO Q7D [facility] Last Admin: 04/18/18 17:45 Dose: 1 cap Ferrous Gluconate (Fergon) 324 mg PO DAILY [facility] Last Admin: 04/24/18 10:03 Dose: 324 mg Heparin Sodium (Porcine) (Heparin) 5,000 units SC Q8 [facility]; Protocol Last Admin: 04/24/18 06:17 Dose: 5,000 units Dextrose (Dextrose 5% In Water 1000 Ml) 1,000 mls @ 0 mls/hr IV .Q0M PRN; Protocol PRN Reason: Hypoglycemia Protocol Insulin Detemir (Levemir) 40 unit SC HS [facility] Insulin Human Lispro (Humalog) 14 units SC AC [facility] Last Admin: 04/24/18 12:19 Dose: 14 u Insulin Human Lispro (Humalog Med) 0 units SC ACHS [facility]; Protocol Last Admin: 04/24/18 12:20 Dose: 3 units Metoprolol Tartrate (Lopressor) 25 mg PO BID [facility] Last Admin: 04/24/18 10:04 Dose: 25 mg Nicotine (Nicoderm Cq) 1 patch TD DAILY [facility] Last Admin: 04/24/18 10:05 Dose: 1 patch Pantoprazole Sodium (Protonix Ec Tab) 40 mg PO ACB [facility] Last Admin: 04/24/18 10:26 Dose: 40 mg Paroxetine HCl (Paxil) 5 mg PO HS [facility] Last Admin: 04/23/18 23:36 Dose: 5 mg Prednisone (Prednisone Tab) 40 mg PO DAILY [facility] Last Admin: 04/24/18 10:03 Dose: 40 mg Vitamin B Complex/Vit C/Folic Acid (Nephro-Enrrique) 1 tab PO 0800 [facility] Last Admin: 04/24/18 10:26 Dose: 1 tab - Labs Labs: 04/24/18 07:00 04/24/18 07:00 PT 11.9 SECONDS (9.4-12.5) 04/11/18 12:25 INR 1.05 04/11/18 12:25 APTT 25.3 Seconds (26.9-38.3) L 04/11/18 12:25 - Constitutional Appears: Chronically Ill - Head Exam Head Exam: NORMAL INSPECTION - Respiratory Exam Respiratory Exam: Decreased Breath Sounds - Cardiovascular Exam Cardiovascular Exam: +S1, +S2 - GI/Abdominal Exam GI & Abdominal Exam: Soft. 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
--- NOTE | 2018-04-26 13:45 | CP.PCM.PN ---
Subjective - Date & Time of Evaluation Date of Evaluation: 04/26/18 Time of Evaluation: 13:44 - Subjective Subjective: PGY-2 heme/onc progress note for Dr Gleason No acute events noted overnight. Resting comfortably on nasal cannula. More cooperative today. She denied pain, sob, bleeding. Objective - Vital Signs/Intake and Output Vital Signs (last 24 hours): Temp Pulse Resp BP Pulse Ox 97.8 F 74 16 117/49 L 94 L 04/26/18 06:00 04/26/18 10:26 04/26/18 06:00 04/26/18 10:26 04/26/18 06:00 Intake and Output: 04/26/18 04/26/18 06:59 18:59 Intake Total 720 Balance 720 - Medications Medications: Current Medications Albuterol Sulfate (Albuterol 0.083% Inhal Elvie (2.5 Mg/3 Ml) Ud) 2.5 mg INH [id number] [facility] Last Admin: 04/26/18 13:14 Dose: 2.5 mg Albuterol/Ipratropium (Duoneb 3 Mg/0.5 Mg (3 Ml) Ud) 3 ml IH Q2H PRN PRN Reason: Shortness of Breath Last Admin: 04/24/18 00:10 Dose: 3 ml Alprazolam (Xanax) 0.5 mg PO TID PRN; Protocol PRN Reason: Anxiety Last Admin: 04/26/18 10:26 Dose: 0.5 mg Arformoterol Tartrate (Brovana) 15 mcg IH [id number] [facility] Last Admin: 04/26/18 07:33 Dose: 15 mcg Aspirin (Aspirin Chewable) 81 mg PO DAILY [facility] Last Admin: 04/26/18 10:26 Dose: 81 mg Atorvastatin Calcium (Lipitor) 40 mg PO DAILY [facility] Last Admin: 04/26/18 10:27 Dose: 40 mg Bacitracin (Bacitracin) 0 gm TOP BID [facility] Last Admin: 04/26/18 10:27 Dose: Not Given Benzocaine/Menthol (Cepacol Sore Throat) 1 vy MT Q4H PRN PRN Reason: Sore Throat Last Admin: 04/20/18 21:49 Dose: 1 vy Budesonide (Pulmicort Respules) 0.5 mg IH [id number] [facility] Last Admin: 04/26/18 07:33 Dose: 0.5 mg Dextrose (Dextrose 50% Inj) 0 ml IV STAT PRN; Protocol PRN Reason: Hypoglycemia Protocol Ergocalciferol (Drisdol 50,000 Intl Units Cap) 1 cap PO Q7D [facility] Last Admin: 04/25/18 18:06 Dose: 1 cap Ferrous Gluconate (Fergon) 324 mg PO DAILY [facility] Last Admin: 04/26/18 10:27 Dose: 324 mg Heparin Sodium (Porcine) (Heparin) 5,000 units SC Q8 [facility]; Protocol Last Admin: 04/26/18 05:49 Dose: 5,000 units Dextrose (Dextrose 5% In Water 1000 Ml) 1,000 mls @ 0 mls/hr IV .Q0M PRN; Protocol PRN Reason: Hypoglycemia Protocol Insulin Detemir (Levemir) 44 unit SC HS [facility] Last Admin: 04/25/18 22:31 Dose: 44 units Insulin Human Lispro (Humalog) 14 units SC AC [facility] Last Admin: 04/26/18 11:57 Dose: 14 units Insulin Human Lispro (Humalog Med) 0 units SC ACHS [facility]; Protocol Last Admin: 04/26/18 11:58 Dose: 1 units Metoprolol Tartrate (Lopressor) 25 mg PO BID [facility] Last Admin: 04/26/18 10:26 Dose: 25 mg Nicotine (Nicoderm Cq) 1 patch TD DAILY [facility] Last Admin: 04/26/18 10:27 Dose: 1 patch Pantoprazole Sodium (Protonix Ec Tab) 40 mg PO ACB [facility] Last Admin: 04/26/18 08:54 Dose: 40 mg Paroxetine HCl (Paxil) 5 mg PO HS [facility] Last Admin: 04/25/18 21:32 Dose: 5 mg Prednisone (Prednisone Tab) 0 mg PO DAILY [facility]; Taper Stop: 05/11/18 09:59 Vitamin B Complex/Vit C/Folic Acid (Nephro-Enrrique) 1 tab PO 0800 [facility] Last Admin: 04/26/18 08:54 Dose: 1 tab - Labs Labs: 04/26/18 07:00 04/26/18 07:00 PT 11.9 SECONDS (9.4-12.5) 04/11/18 12:25 INR 1.05 04/11/18 12:25 APTT 25.3 Seconds (26.9-38.3) L 04/11/18 12:25 - Additional Findings Additional findings: - Constitutional Appears: No Acute Distress, Older Than Stated Age - Head Exam Head Exam: ATRAUMATIC, NORMAL INSPECTION - Eye Exam Eye Exam: EOMI, Normal appearance, PERRL. absent: Scleral icterus - ENT Exam ENT Exam: Mucous Membranes Moist - Respiratory Exam Respiratory Exam: Decreased Breath Sounds, Rales Additional comments: rales R>L - Cardiovascular Exam Cardiovascular Exam: normal rate, REGULAR RHYTHM, +S1, +S2. absent: JVD - GI/Abdominal Exam GI & Abdominal Exam: Normal Bowel Sounds, Soft. absent: Tenderness - Extremities Exam Extremities exam: Positive for: normal capillary refill, normal inspection, pedal pulses present - Neurological Exam Neurological exam: Alert, Oriented x3 - Psychiatric Exam Psychiatric exam: Anxious - Skin Skin Exam: Normal Color, Warm Assessment and Plan - Assessment and Plan (Free Text) Plan: Mrs Granado is a 57 year old female with a PMHx history of breast cancer, severe COPD, anxiety, pneumonia, pleural effusions, CKD, xanax abuse, hx of non- compliance, hx of xanax/oxycodone overose, who presented to the ED in respiratory distress while on non-rebreather. Patient was then intubated while in ED due to lack of airway protection. Hematology/oncology has been consulted for anemia and her hx of left-sided breast cancer. Anemia -likely anemia of chronic disease 2/2 to ckd -Hgb on admission: 7.3 -> today 9.4 * chronically anemic since 02/2017 * transfused 2u pRBCs on 04/12/18 -recent admission 03/31/18 there were orders for iron studies, retic count, peripheral smear, B12, folate * retic count: 1.72, B12: 476, folate: 17, iron: 44, TIBC 213, %sat: 21, ferritin: 206, MCV: 96, LDH: 561 -has received erythropoetin in the past for anemia due to renal disease * CKD 3 and now with DAHLIA -recent admission 03/31/18 there were orders for epo level, immunofixation, spep, LDH * epo 22.8 (mildly high) * ABDIRIZAK and SPEP -> selective protein loss pattern, suggestive of nephrotic syndrome -1 dose of darbapoetin 40mcg sc on 04/06/18 - we will continue this once a week * darbopoetin 40mcg sc given on 04/13/18 * further administrations qmonthly outpatient -ferrous gluconate 324mg po qd now discontinued Hx L breast cancer (Dx 2015) invasive ductal carcinoma -ER+/HER2+ -Got 1 cycle of sandee-adjuvant chemo. After that, refused chemo/surgery. -CT chest w/o contrast 04/11/18 showed lymphadenopathy suspicious for tumor * etiology could be malignancy, infectious, inflammatory * patient was advised that this abnormal finding on CT needs to be followed up with an oncologist - this was reiterated to her multiple times on the previous admission and again on this current admission -CT chest w/o contrast 04/20/18 did not mention lymphadenopathy; it showed significant progression of atelectasis and right-sided effusion Dispo: patient accepted to LT[facility] Seen and discussed with Dr Gleason
[2018-04-26 14:28] VITALS: BP 149/62; PULSE 88; TEMP 98.6; O2SAT 97
--- NOTE | 2018-04-26 15:05 | CP.PCM.PN ---
Subjective - Date & Time of Evaluation Date of Evaluation: 04/26/18 Time of Evaluation: 15:04 - Subjective Subjective: Nephrology Consultation Note: Assessment: stable DAHLIA likely ATN, non-oliguric: improving acute on chronc respi acidosis with respi failure with renal compensation rt pleural effusion with chest wall mass ? 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 overall poor pro gnosis, seen by palliative care Hypertension control with meds as ordered. Maintain hemodynamics stable. Avoid hypotension. Patient not on ACEI/ARB due to recent DAHLIA, hyperkalemic tendency Monitor Input/Output, daily weights and renal function with basic metabolic panel will defer use of [place]LE to heme/onc in view of her recent breast malignancy with concerns for mets. PRBC as needed continue with iron 325 mg, MVI and weekly Vit D supplement lytes as needed seen by cardio heme/onc and pulmonary IR eval for possible thoracocentesis which was refused by patient as per nursing staff. s/p bronchoscoy which showed mucus plug dose of IV ca 2 gram today Dose meds/antibiotics for reduced GFR. Avoid fleets enema/magnesium based laxatives. Avoid nephrotoxins/NSAIDs/ iodinated contrast (unless needed emergently) Glycemic control. pt need to stop smoking Further work up/management as per primary team overall stable from renal perspective Thanks for allowing me to participate in care of your patient. Will follow patient with you. Please call if any Qs. had d/w team Dr Marco Antonio Chatman Office: [phone] Chief Complaint; SOB Reason for consult: CKD 3, DAHLIA HPI: Pt is a 57 F with hx of diabetes Mellitus ( years), hypertension (years) COPD/asthma, active smoker, breast cancer s/p surgery 2 years ago but didn't complete treatment now with mets, anemia, CKD stage 3 with baseline cr 1.8 mg/dL and AKIs (peaked cr 4) admitted with acute respi distress hypercapnic respi failure and intubated/extubated, now seen for CKD management Denies OTC/herbal meds or NSAIDs No recent iodinated contrast exposure. No obvious episodes of low BP. pt was recently admitted for same and she signed out AMA. ROS: pt is a poor historian and overall hx is limited from her. not much interactive Physical Examination: General Appearance: stable appearing. on o2 Vitals reviewed and noted as below Head; Atraumatic, normocephalic ENT: no ulcers no thrush. Tongue is midline. Oropharynx: no rash or ulcers. she is hard of hearing EYES: Pupils are equal, round and reactive to light accommodation. Eye muscles and extraocular movement intact. Sclera is anicteric. has some periorbital puffiness Neck; supple no lymphadenopathy, no thyromegaly or bruit Lungs: Improved respiratory rate/effort. Breath sounds reduced at rt side. Heart: normal rate. s1s2 normal. No rub or gallop. Extremities: no edema. No varicose veins Neurological: Patient is awake follow commands Skin: Warm and dry. Normal turgor. No rash. Palpitation: Normal elasticity for age Abdomen: Abdomen is soft. Bowel sounds +. There is no abdominal tenderness, no guarding/rigidity no organomegaly Psych: lack insight and flat affect/mood MSK: no joint tenderness or swelling. Digits and nails normal, no deformity : kidney or bladder not palpable Labs/imaging reviewed. Past medical history, past surgical history, family history, social history, allergy reviewed and noted as below Family hx: no hx of CKD. Rest non-contributory renal imaging: b/l cysts echo normal LVEF TSAt 26% ferritin 45 Serum FLC assay WNL ABDIRIZAK neg PTH 154 Vit D 17 Objective - Vital Signs/Intake and Output Vital Signs (last 24 hours): Temp Pulse Resp BP Pulse Ox 98.6 F 88 16 149/62 97 04/26/18 14:27 04/26/18 14:27 04/26/18 14:27 04/26/18 14:27 04/26/18 14:27 Intake and Output: 04/26/18 04/26/18 06:59 18:59 Intake Total 720 900 Balance 720 900 - Medications Medications: Current Medications Albuterol Sulfate (Albuterol 0.083% Inhal Elvie (2.5 Mg/3 Ml) Ud) 2.5 mg INH [id number] [facility] Last Admin: 04/26/18 13:14 Dose: 2.5 mg Albuterol/Ipratropium (Duoneb 3 Mg/0.5 Mg (3 Ml) Ud) 3 ml IH Q2H PRN PRN Reason: Shortness of Breath Last Admin: 04/24/18 00:10 Dose: 3 ml Alprazolam (Xanax) 0.5 mg PO TID PRN; Protocol PRN Reason: Anxiety Last Admin: 04/26/18 10:26 Dose: 0.5 mg Arformoterol Tartrate (Brovana) 15 mcg IH [id number] [facility] Last Admin: 04/26/18 07:33 Dose: 15 mcg Aspirin (Aspirin Chewable) 81 mg PO DAILY [facility] Last Admin: 04/26/18 10:26 Dose: 81 mg Bacitracin (Bacitracin) 0 gm TOP BID [facility] Last Admin: 04/26/18 10:27 Dose: Not Given Benzocaine/Menthol (Cepacol Sore Throat) 1 vy MT Q4H PRN PRN Reason: Sore Throat Last Admin: 04/20/18 21:49 Dose: 1 vy Budesonide (Pulmicort Respules) 0.5 mg IH [id number] [facility] Last Admin: 04/26/18 07:33 Dose: 0.5 mg Dextrose (Dextrose 50% Inj) 0 ml IV STAT PRN; Protocol PRN Reason: Hypoglycemia Protocol Ergocalciferol (Drisdol 50,000 Intl Units Cap) 1 cap PO Q7D [facility] Last Admin: 04/25/18 18:06 Dose: 1 cap Ferrous Gluconate (Fergon) 324 mg PO DAILY [facility] Last Admin: 04/26/18 10:27 Dose: 324 mg Heparin Sodium (Porcine) (Heparin) 5,000 units SC Q8 [facility]; Protocol Last Admin: 04/26/18 05:49 Dose: 5,000 units Dextrose (Dextrose 5% In Water 1000 Ml) 1,000 mls @ 0 mls/hr IV .Q0M PRN; Protocol PRN Reason: Hypoglycemia Protocol Insulin Detemir (Levemir) 44 unit SC HS [facility] Last Admin: 04/25/18 22:31 Dose: 44 units Insulin Human Lispro (Humalog) 14 units SC AC [facility] Last Admin: 04/26/18 11:57 Dose: 14 units Insulin Human Lispro (Humalog Med) 0 units SC ACHS [facility]; Protocol Last Admin: 04/26/18 11:58 Dose: 1 units Metoprolol Tartrate (Lopressor) 25 mg PO BID [facility] Last Admin: 04/26/18 10:26 Dose: 25 mg Nicotine (Nicoderm Cq) 1 patch TD DAILY [facility] Last Admin: 04/26/18 10:27 Dose: 1 patch Pantoprazole Sodium (Protonix Ec Tab) 40 mg PO ACB [facility] Last Admin: 04/26/18 08:54 Dose: 40 mg Paroxetine HCl (Paxil) 5 mg PO HS [facility] Last Admin: 04/25/18 21:32 Dose: 5 mg Prednisone (Prednisone Tab) 0 mg PO DAILY [facility]; Taper Stop: 05/11/18 09:59 Vitamin B Complex/Vit C/Folic Acid (Nephro-Enrrique) 1 tab PO 0800 [facility] Last Admin: 04/26/18 08:54 Dose: 1 tab - Labs Labs: 04/26/18 07:00 04/26/18 07:00 PT 11.9 SECONDS (9.4-12.5) 04/11/18 12:25 INR 1.05 04/11/18 12:25 APTT 25.3 Seconds (26.9-38.3) L 04/11/18 12:25
--- NOTE | 2018-04-26 23:06 | PN ---
DATE: 04/26/2018 ENDOCRINOLOGY FOLLOWUP NOTE LOCATION: Room 576. This is a 57-year-old female with recent admission for acute respiratory failure and has since then improved clinically and hemodynamically as noted thereof. Her oral intake remains quite variable with glycemic fluctuations as expected, and today's glucose levels have ranged from 197 to 233 mg/dL. It was 204 at bedtime last night. Her chemistry showed a BUN of 54, sodium 141, potassium 4.1, chloride 104, CO2 of 32, glucose 222, and creatinine 1.5. So at this time, we will continue the same modified basal and bolus insulin regimens to allow for dose equilibration and keep her on the Levemir given as 44 units subcu at bedtime daily as given. We will also continue the Humalog given as 14 units subcu t.i.d. before meals as ordered. We will obtain serial chemistries and supplement accordingly as needed. We will follow. Ernestina Hawkins MD
== END 2018-04-26 16:45 | disposition home health service (06) | DRG 882 ==
LOC: ED 12:02 → ERH 13:48 → ICU 15:31 → 5RSO 04-14 21:02
PROVIDERS: ADMIT Internal Medicine; ATTEND Internal Medicine
PROC: 5A1935Z Respiratory Ventilation, Less than 24 Consecutive Hours (ICD-10-PCS; principal; 2018-04-11)
PROC: 0BH17EZ Insertion of Endotracheal Airway into Trachea, Via Natural or Artificial Opening (ICD-10-PCS; 2018-04-11)
PROC: 5A09357 Assistance with Respiratory Ventilation, Less than 24 Consecutive Hours, Continuous Positive Airway Pressure (ICD-10-PCS; 2018-04-12)
PROC: 30233N1 Transfusion of Nonautologous Red Blood Cells into Peripheral Vein, Percutaneous Approach (ICD-10-PCS; 2018-04-12)
PROC: 0BC68ZZ Extirpation of Matter from Right Lower Lobe Bronchus, Via Natural or Artificial Opening Endoscopic (ICD-10-PCS; 2018-04-25)
PROC: 0BC48ZZ Extirpation of Matter from Right Upper Lobe Bronchus, Via Natural or Artificial Opening Endoscopic (ICD-10-PCS; 2018-04-25)
PROC: 0BC58ZZ Extirpation of Matter from Right Middle Lobe Bronchus, Via Natural or Artificial Opening Endoscopic (ICD-10-PCS; 2018-04-25)
DX: J96.02 Acute respiratory failure with hypercapnia (principal); J18.9 Pneumonia, unspecified organism; N17.0 Acute kidney failure with tubular necrosis; I50.30 Unspecified diastolic (congestive) heart failure; E11.00 Type 2 diabetes mellitus with hyperosmolarity without nonketotic hyperglycemic-hyperosmolar coma (NKHHC); J44.1 Chronic obstructive pulmonary disease with (acute) exacerbation; J44.0 Chronic obstructive pulmonary disease with (acute) lower respiratory infection; I13.0 Hypertensive heart and chronic kidney disease with heart failure and stage 1 through stage 4 chronic kidney disease, or unspecified chronic kidney disease; J98.11 Atelectasis; N39.0 Urinary tract infection, site not specified; E11.22 Type 2 diabetes mellitus with diabetic chronic kidney disease; N18.3 Chronic kidney disease, stage 3 (moderate); E86.0 Dehydration; F11.20 Opioid dependence, uncomplicated; F13.10 Sedative, hypnotic or anxiolytic abuse, uncomplicated; I08.1 Rheumatic disorders of both mitral and tricuspid valves; E87.2 Acidosis; F06.30 Mood disorder due to known physiological condition, unspecified; F05 Delirium due to known physiological condition; T17.890A Other foreign object in other parts of respiratory tract causing asphyxiation, initial encounter; D63.1 Anemia in chronic kidney disease; E78.5 Hyperlipidemia, unspecified; F41.9 Anxiety disorder, unspecified; F17.210 Nicotine dependence, cigarettes, uncomplicated; F32.9 Major depressive disorder, single episode, unspecified; C50.912 Malignant neoplasm of unspecified site of left female breast; G47.33 Obstructive sleep apnea (adult) (pediatric); Y95 Nosocomial condition; F60.9 Personality disorder, unspecified; H91.90 Unspecified hearing loss, unspecified ear; E83.39 Other disorders of phosphorus metabolism; D63.0 Anemia in neoplastic disease; Z79.4 Long term (current) use of insulin; Z79.82 Long term (current) use of aspirin; Z78.1 Physical restraint status; Z91.19 Patient's noncompliance with other medical treatment and regimen; Z17.0 Estrogen receptor positive status [ER+]; Z91.14 Patient's other noncompliance with medication regimen

== ENCOUNTER 2018-07-12 02:54 | Inpatient (IN) | payer MEDICAID ==
--- NOTE | 2018-07-12 03:20 | ED PDOC ---
Arrival/HPI - General Chief Complaint: Altered Mental Status Time Seen by Provider: 07/12/18 02:55 Historian: Family, EMS - History of Present Illness Narrative History of Present Illness (Text): 07/12/18 03:18 Yazmin Granado is a 57 year old female, whose past medical history includes breast cancer, severe COPD, anxiety, pleural effusions, CKD, and polysubstance abuse, who presents to the ED brought in by EMS for hypoglycemia. Patient's family reported patient was not responding at home, even after they threw water on her to wake her up. EMS was notified and patient was noted to be hypoglycemic. Patient was given Glucagon in the field with improvement in mental status. Patient denies any fever, chills, chest pain, shortness of breath, nausea, vomiting, diarrhea, urinary symptoms, back pain, neck pain, headache, dizziness, or any other complaints. Symptom Onset: Gradual Symptom Course: Unchanged Activities at Onset: Light Context: Home Past Medical History - Provider Review Nursing Documentation Reviewed: Yes - Infectious Disease Hx of Infectious Diseases: None - Tetanus Immunization Tetanus Immunization: Unknown - Cardiac Hx Pacemaker: No - Pulmonary Hx Respiratory Disorders: Yes Hx Asthma: Yes Hx Chronic Obstructive Pulmonary Disease (COPD): Yes - Neurological Hx Neurological Disorder: Yes - HEENT Hx HEENT Disorder: Yes Hx Cataracts: Yes - Renal Hx Renal Disorder: Yes (BLADDER TUMOR) - Endocrine/Metabolic Hx Endocrine Disorders: Yes Hx Diabetes Mellitus Type 2: Yes - Hematological/Oncological Hx Blood Disorders: Yes Hx Blood Transfusions: Yes Hx Blood Transfusion Reaction: No Hx Cancer: Yes (breast) Hx Chemotherapy: Yes - Integumentary Hx Dermatological Disorder: Yes - Musculoskeletal/Rheumatological Hx Musculoskeletal Disorders: Yes - Gastrointestinal Hx Gastrointestinal Disorders: Yes (INGUINAL HERNIA REPAIR) - Genitourinary/Gynecological Hx Genitourinary Disorders: No - Psychiatric Hx Psychophysiologic Disorder: Yes Hx Anxiety: Yes Hx Emotional Abuse: No Hx Physical Abuse: No Hx Substance Use: No (UNKNOWN) - Past Surgical History Past Surgical History: Non-Contributing - Surgical History Hx Inguinal Hernia Repair: Yes - Anesthesia Hx Anesthesia Reactions: No Hx Malignant Hyperthermia: No - Suicidal Assessment Feels Threatened In Home Enviroment: No Family/Social History - Physician Review Nursing Documentation Reviewed: Yes Family/Social History: Unknown Family HX Smoking Status: Current Some Days Smoker Hx Alcohol Use: No (UNKNOWN) Hx Substance Use: No (UNKNOWN) Hx Substance Use Treatment: No Allergies/Home Meds Allergies/Adverse Reactions: Allergies levofloxacin [From Levaquin] Allergy (Verified 04/11/18 14:31) SHORTNESS OF BREATH;PARANOID nystatin Allergy (Verified 04/11/18 14:31) SWELLING Home Medications: Home Meds Medication Instructions Recorded Confirmed Albuterol/Ipratropium [Duoneb 3 1 ea IH QID 07/12/18 07/12/18 MG/3 Ml-0.5 MG/3 Ml 3 Ml] Alprazolam [Xanax] 0.5 mg PO BID 07/12/18 07/12/18 Aspirin [Ecotrin] 81 mg PO DAILY 07/12/18 07/12/18 Famotidine [Pepcid] 20 mg PO BID 07/12/18 07/12/18 Fluticasone Propion/Salmeterol 1 puff IH BID 07/12/18 07/12/18 [Airduo Resp. Fluticasone-Salmeterol 113-14] Insulin Lispro [Admelog] 55 unit SQ BID 07/12/18 07/12/18 Metoprolol Tartrate [Lopressor] 25 mg PO BID 07/12/18 07/12/18 Pantoprazole Sodium [Protonix] 20 mg PO DAILY 07/12/18 07/12/18 Polyethylene Glycol 3350 [Miralax] 17 gm PO DAILY 07/12/18 07/12/18 Simvastatin 10 mg PO DAILY 07/12/18 07/12/18 Vitamin B Complex [Nature's Blend 1 tab PO DAILY 07/12/18 07/12/18 Balance B-100] oxyCODONE/Acetaminophen [Percocet 1 tab PO QID 07/12/18 07/12/18 5/325 mg Tab] Review of Systems - Physician Review All systems were reviewed & negative as marked: Yes - Review of Systems Constitutional: Normal. absent: Fevers Eyes: Normal ENT: Normal Respiratory: Normal. absent: SOB, Cough Cardiovascular: Normal. absent: Chest Pain Gastrointestinal: Normal. absent: Abdominal Pain, Diarrhea, Vomiting Genitourinary Female: Normal. absent: Dysuria, Frequency, Hematuria, Urine Output Changes Musculoskeletal: Normal. absent: Back Pain, Neck Pain Skin: Normal. absent: Rash Neurological: Normal. absent: Headache, Dizziness Endocrine: Other (+hypoglycemia) Hemo/Lymphatic: Normal Psychiatric: Normal Physical Exam Vital Signs Reviewed: Yes Vital Signs Temp Pulse Resp BP Pulse Ox 07/12/18 03:06 97.4 F L 96 H 18 140/69 96 Temperature: Afebrile Blood Pressure: Normal Pulse: Regular Respiratory Rate: Normal Appearance: Positive for: Well-Appearing, Non-Toxic, Comfortable Pain Distress: None Mental Status: Positive for: Alert and Oriented X 3 Finger Stick Blood Glucose: 97 - Systems Exam Head: Present: Atraumatic, Normocephalic Pupils: Present: PERRL Extroacular Muscles: Present: EOMI Conjunctiva: Present: Normal Mouth: Present: Moist Mucous Membranes Neck: Present: Normal Range of Motion Respiratory/Chest: Present: Clear to Auscultation, Good Air Exchange. No: Respiratory Distress, Accessory Muscle Use Cardiovascular: Present: Regular Rate and Rhythm, Normal S1, S2. No: Murmurs Abdomen: No: Tenderness, Distention, Peritoneal Signs Back: Present: Normal Inspection Upper Extremity: Present: Normal Inspection. No: Cyanosis, Edema Lower Extremity: Present: Normal Inspection. No: Edema Neurological: Present: GCS=15, CN II-XII Intact, Speech Normal Skin: Present: Warm, Dry, Normal Color. No: Rashes Psychiatric: Present: Alert, Oriented x 3, Normal Insight, Normal Concentration Medical Decision Making ED Course and Treatment: 07/12/18 03:18 Impression: 57 year old female brought in for hypoglycemia. Plan: -- CT Head w/o contrast -- EKG -- Chest X-ray -- Labs, ABG, troponin -- Urinalysis -- Reassess and disposition Prior Visits: Notes and results from previous visits were reviewed. Progress Notes: Reviewed KEG, NSR at [address]-segment elevations or depressions, no T- wave inversions, normal intervals. Chest X-ray reviewed, shows no acute processes. 07/12/18 04:[address] Sosa, requests pt go to hospitalist service. 07/12/18 04:[address] Cobos, who is aware and agrees with plan. Accepts pt in to hospitalist service. Pt will be admitted to telemetry for COPD. vice president safety notified. 07/12/18 05:05 CT Head: Normal size of the ventricles and extra-axial spaces for the patient's age. Normal white matter tracts of the supratentorial brain. Normal basal ganglia and thalami. Normal brainstem. Normal cerebellum. There is no demonstrated extra-axial, intraparenchymal, or intraventricular hemorrhage. There are no findings of an acute ischemic infarction. Normal calvarium. There is no demonstrated fracture. Normal soft tissue structures. Normal visualized paranasal sinuses. IMPRESSION: Normal unenhanced CT scan of the brain. Electronically signed on Jul 12, 2018 5:05:16 AM EDT by: Bert Torrez M.D., Certified by ABR, MSK, Neuroradiology - Lab Interpretations I have reviewed the lab results: Yes - RAD Interpretation Film Projector Operator: ED Physician, Radiologist - EKG Interpretation Interpreted by ED Physician: Yes Type: 12 lead EKG - Scribe Statement The provider has reviewed the documentation as recorded by the Scribe Sudha Kennedy Provider Scribe Attestation: All medical record entries made by the Scribe were at my direction and personally dictated by me. I have reviewed the chart and agree that the record accurately reflects my personal performance of the history, physical exam, medical decision making, and the department course for this patient. I have also personally directed, reviewed, and agree with the discharge instructions and disposition. Disposition/Present on Arrival - Present on Arrival Any Indicators Present on Arrival: No History of DVT/PE: No History of Uncontrolled Diabetes: No Urinary Catheter: No History of Decub. Ulcer: No History Surgical Site Infection Following: None - Disposition Have Diagnosis and Disposition been Completed?: Yes Diagnosis: Hypoglycemia, COPD (chronic obstructive pulmonary disease), Carbon dioxide narcosis Disposition: HOSPITALIZED Disposition Time: 05:00 Condition: FAIR
[2018-07-12 03:58] LABS: ARTERIAL BLOOD GAS HCO3 23.3 mmol/L (21-28); ARTERIAL BLOOD GAS HEMOGLOBIN 8.6 g/dL (11.7-17.4); ARTERIAL BLOOD GAS O2 CAPACITY 11.8 mL/dl (16-24); ARTERIAL BLOOD GAS O2 CONTENT 11.6 ML/dl (15-23); ARTERIAL BLOOD GAS O2 SAT 98.5 % (95-98); ARTERIAL BLOOD GAS PCO2 64 mm/Hg (35-45); ARTERIAL BLOOD GAS PH 7.17 (7.35-7.45); ARTERIAL BLOOD GAS TCO2 25.3 mmol.L (22-28)
[2018-07-12 03:58] LABS: BASO # 0.03 K/mm3 (0.0-2.0); BASO % 0.2 % (0.0-3.0); EOS # 0.6 (0.0-0.7); EOS % 3.9 % (1.5-5.0); HEMOGLOBIN 8.6 g/dL (12.0-16.0); LYMPH # 0.8 (1.2-3.4); MEAN CELL VOLUME 94.6 fl (80.0-105.0); MEAN CORPUSCULAR HEMOGLOBIN 28.8 pg (25.0-35.0); MEAN CORPUSCULAR HGB CONC 30.4 g/dl (31.0-37.0); MEAN PLATELET VOLUME 9.9 fl (7.0-11.0); MONO # 0.8 (0.1-0.6); MONO % 4.8 % (1.0-6.0); PLATELET COUNT 335 10^3/uL (120.0-450.0); RBC 2.99 10^6/uL (3.5-6.1); RED CELL DISTRIBUTION WIDTH 15.9 % (11.5-14.5); WHITE BLOOD COUNT 16.3 10^3/uL (4.5-11.0)
[2018-07-12 04:20] LABS: ALB/GLOB RATIO 1.1 (1.1-1.8); ALBUMIN 3.6 g/dL (3.0-4.8); AST/SGOT 31 U/L (14-36); BLOOD UREA NITROGEN 47 mg/dL (7-21); CALCIUM 9.1 mg/dL (8.4-10.5); GFR NON-AFRICAN AMERICAN 21
[2018-07-12 04:30] LABS: ALT/SGPT < 6 U/L (7-56)
[2018-07-12 04:31] LABS: TROPONIN I < 0.01 ng/mL
--- NOTE | 2018-07-12 04:54 | CP.PCM.HP ---
<Matt Stevens - Last Filed: 07/12/18 07:17> History of Present Illness - History of Present Illness History of Present Illness: PGY-1 Medicine H&P for Dr. Cobos CC: Hypoglycemia HPI: Patient is a 57 year old female, whose past medical history includes breast cancer, severe COPD, asthma, anxiety, pleural effusions, and CKD, who presents to the ED brought in by EMS for hypoglycemia. Patient seems lethargic and is refusing to answer questions at this time. No family members at bedside. History obtained from previous medical charts. Patient's family reported patient was not responding at home, even after they threw water on her to wake her up. EMS was notified and patient was noted to be hypoglycemic with a blood glucose level of 40. Patient was given Glucagon in the field with improvement in mental status. Unable to obtain ROS and history due to patient refusing to answer any questions. PMHx: breast cancer, severe COPD, asthma, anxiety, pleural effusions, CKD. PSHx: Mastectomy, Bladder surgery, Spine surgery Family Hx: Heart Problems, DM, CA Social Hx: Tobacco 1 pack/day 40 years; Denies alcohol and drug use. History of drug overdose. Lives at home with son. Allergies: levofloxacin, nystatin Medication: see [facility] PMD: Dr. Sosa Present on Admission - Present on Admission Any Indicators Present on Admission: No History of DVT/PE: No History of Uncontrolled Diabetes: No Urinary Catheter: No Decubitus Ulcer Present: No Past Patient History - Infectious Disease Hx of Infectious Diseases: None - Tetanus Immunizations Tetanus Immunization: Unknown - Past Medical History & Family History Past Medical History?: Yes - Past Social History Smoking Status: Current Some Days Smoker - CARDIAC Hx Pacemaker: No - PULMONARY Hx Respiratory Disorders: Yes Hx Asthma: Yes Hx Chronic Obstructive Pulmonary Disease (COPD): Yes - NEUROLOGICAL Hx Neurological Disorder: Yes - HEENT Hx HEENT Problems: Yes Hx Cataracts: Yes - RENAL Hx Chronic Kidney Disease: Yes (BLADDER TUMOR) - ENDOCRINE/METABOLIC Hx Endocrine Disorders: Yes Hx Diabetes Mellitus Type 2: Yes - HEMATOLOGICAL/ONCOLOGICAL Hx Blood Disorders: Yes Hx Blood Transfusions: Yes Hx Blood Transfusion Reaction: No Hx Cancer: Yes (breast) Hx Chemotherapy: Yes - INTEGUMENTARY Hx Dermatological Problems: Yes - MUSCULOSKELETAL/RHEUMATOLOGICAL Hx Musculoskeletal Disorders: Yes - GASTROINTESTINAL Hx Gastrointestinal Disorders: Yes (INGUINAL HERNIA REPAIR) - GENITOURINARY/GYNECOLOGICAL Hx Genitourinary Disorders: No - PSYCHIATRIC Hx Psychophysiologic Disorder: Yes Hx Anxiety: Yes Hx Emotional Abuse: No Hx Physical Abuse: No Hx Substance Use: No (UNKNOWN) - SURGICAL HISTORY Hx Surgeries: Yes (reports had breast surgey many years ago that why port) - ANESTHESIA Hx Anesthesia Reactions: No Hx Malignant Hyperthermia: No Meds Allergies/Adverse Reactions: Allergies Allergy/AdvReac Type Severity Reaction Status Date / Time levofloxacin [From Levaquin] Allergy SHORTNESS Verified 04/11/18 14:31 OF BREATH;PARANOID nystatin Allergy SWELLING Verified 04/11/18 14:31 Physical Exam - Constitutional Appears: No Acute Distress, Chronically Ill - Head Exam Head Exam: ATRAUMATIC, NORMAL INSPECTION - Eye Exam Eye Exam: EOMI, Normal appearance, PERRL Pupil Exam: NORMAL ACCOMODATION - ENT Exam ENT Exam: Mucous Membranes Dry - Neck Exam Neck exam: Positive for: Normal Inspection - Respiratory Exam Respiratory Exam: Clear to Auscultation Bilateral. absent: Rales, Rhonchi, Wheezes, Respiratory Distress Additional comments: Patient on BIPAP machine - Cardiovascular Exam Cardiovascular Exam: REGULAR RHYTHM, +S1, +S2. absent: Bradycardia, Tachycardia, Gallop, Rubs, Systolic Murmur - GI/Abdominal Exam GI & Abdominal Exam: Normal Bowel Sounds, Soft. absent: Distended, Firm, Tenderness - Extremities Exam Extremities exam: Positive for: normal inspection. Negative for: pedal edema - Neurological Exam Additional comments: Patient lethargic, refused neurological exam - Skin Skin Exam: Dry, Normal Color, Warm Additional comments: Abrasions noted on bilateral lower extremity. Results - Vital Signs Recent Vital Signs: Last Vital Signs Temp 97.4 F L 07/12/18 03:06 Pulse 96 H 07/12/18 03:06 Resp 18 07/12/18 03:06 BP 140/69 07/12/18 03:06 Pulse Ox 96 07/12/18 03:06 - Labs Result Diagrams: 07/12/18 03:42 07/12/18 03:42 Labs: Laboratory Results - last 24 hr 07/12/18 07/12/18 07/12/18 03:01 03:42 03:42 WBC 16.3 H D RBC 2.99 L Hgb 8.6 L Hct 28.3 L MCV 94.6 MCH 28.8 MCHC 30.4 L RDW 15.9 H Plt Count 335 MPV 9.9 Neut % (Auto) 86.1 H Lymph % (Auto) 5.0 L [place] % (Auto) 4.8 Eos % (Auto) 3.9 Baso % (Auto) 0.2 Lymph # (Auto) 0.8 L [place] # (Auto) 0.8 H Eos # (Auto) 0.6 Baso # (Auto) 0.03 Absolute Neuts (auto) 14.05 H pCO2 pO2 HCO3 ABG pH ABG Total CO2 ABG O2 Saturation ABG O2 Content ABG Base Excess ABG Hemoglobin ABG Carboxyhemoglobin POC ABG HHb (Measured) ABG Methemoglobin ABG O2 Capacity Hgb O2 Saturation FiO2 Crit Value Called To Crit Value Called By Blood Gas Notified Time Sodium 141 Potassium 5.5 H Chloride 107 Carbon Dioxide 23 Anion Gap 16 BUN 47 H Creatinine 2.4 H Est GFR ( Amer) 25 Est GFR (Non-Af Amer) 21 POC Glucose (mg/dL) 97 Random Glucose 156 H Calcium 9.1 Total Bilirubin 0.4 AST 31 ALT < 6 L Alkaline Phosphatase 59 Troponin I < 0.01 D Total Protein 7.1 Albumin 3.6 Globulin 3.4 Albumin/Globulin Ratio 1.1 07/12/18 03:50 WBC RBC Hgb Hct MCV MCH MCHC RDW Plt Count MPV Neut % (Auto) Lymph % (Auto) [place] % (Auto) Eos % (Auto) Baso % (Auto) Lymph # (Auto) [place] # (Auto) Eos # (Auto) Baso # (Auto) Absolute Neuts (auto) pCO2 64 H pO2 102.0 H HCO3 23.3 ABG pH 7.17 L* ABG Total CO2 25.3 ABG O2 Saturation 98.5 H ABG O2 Content 11.6 L ABG Base Excess -5.4 L ABG Hemoglobin 8.6 L ABG Carboxyhemoglobin 4.0 H POC ABG HHb (Measured) 1.4 ABG Methemoglobin 0.2 ABG O2 Capacity 11.8 L Hgb O2 Saturation 94.3 L FiO2 36.0 Crit Value Called [place] [id number] Blood Gas Notified Time 357 Sodium Potassium Chloride Carbon Dioxide Anion Gap BUN Creatinine Est GFR ( Amer) Est GFR (Non-Af Amer) POC Glucose (mg/dL) Random Glucose Calcium Total Bilirubin AST ALT Alkaline Phosphatase Troponin I Total Protein Albumin Globulin Albumin/Globulin Ratio Assessment & Plan - Assessment and Plan (Free Text) Assessment: Patient is a 57 year old female, whose past medical history includes breast cancer, severe COPD, asthma, anxiety, pleural effusions, and CKD, who presents to the ED brought in by EMS for hypoglycemia. Plan: Acute Hypercapnic Respiratory Failure - Likely 2/2 tobacco use in the setting of her known asthma and COPD - PCO2 64, PO2 102, pH 7.17 - CXR: No acute findings. Unchanged from previous studies. (prelim report) - EKG: NSR at [address]-segment elevations or depressions, no T-wave inversions, normal intervals. - Continue BIPAP - Pulmonology consulted, Dr. Santiago - Viviane PRN - Continue home Advair - Head CT: Normal unenhanced CT scan of the brain. (prelim report) Hypoglycemia - Glucagon was administered in the field - Hypoglycemia protocol - Accuchecks Q2HX12 - Endocrinology consulted, Dr. Hawkins Hyperkalemia - Kayexalate 15mg PO ONCE - Continue to monitor DM-2 - ISS - Accuchecks ACHS DAHLIA on CKD - Cr 2.4, BUN 47 - Nephrology consulted, Dr. Beatty - Start NS @ 100 mL/hr Leukocytosis - Likely 2/2 to steroid use, r/o PNA - Patient is afebrile - CXR: No acute findings. Unchanged from previous studies. (prelim report) - Follow up [facility] - ID consulted, Dr. Damon Hyperlipidemia - Lipitor 20mg PO HS - ASA 81mg daily Hypertension - Continue home Lopressor 25mg PO BID Anxiety, depression - Continue home Xanax 0.5mg PO QID PRN, Paxil 5mg PO HS Prophylaxis: - DVT: Heparin 5000u SC Q8 - GI: Pepcid 20mg PO QD Case discussed with attending, Dr. Cobos. Matt Stevens, PGY-1 <Neeru Cobos - Last Filed: 07/12/18 09:50> Results - Vital Signs Recent Vital Signs: Last Vital Signs Temp 97.4 F L 07/12/18 03:06 Pulse 98 H 07/12/18 09:41 Resp 18 07/12/18 09:41 BP 135/63 07/12/18 09:41 Pulse Ox 94 L 07/12/18 09:41 - Labs Result Diagrams: 07/12/18 03:42 07/12/18 03:42 Labs: Laboratory Results - last 24 hr 07/12/18 07/12/18 07/12/18 03:01 03:42 03:42 WBC 16.3 H D RBC 2.99 L Hgb 8.6 L Hct 28.3 L MCV 94.6 MCH 28.8 MCHC 30.4 L RDW 15.9 H Plt Count 335 MPV 9.9 Neut % (Auto) 86.1 H Lymph % (Auto) 5.0 L [place] % (Auto) 4.8 Eos % (Auto) 3.9 Baso % (Auto) 0.2 Lymph # (Auto) 0.8 L [place] # (Auto) 0.8 H Eos # (Auto) 0.6 Baso # (Auto) 0.03 Absolute Neuts (auto) 14.05 H Neutrophils % (Manual) 85 H Band Neutrophils % 5 H Lymphocytes % (Manual) 5 L Monocytes % (Manual) 2 Eosinophils % (Manual) 3 Toxic Granulation Slight Platelet Evaluation Normal Retic Count pCO2 pO2 HCO3 ABG pH ABG Total CO2 ABG O2 Saturation ABG O2 Content ABG Base Excess ABG Hemoglobin ABG Carboxyhemoglobin POC ABG HHb (Measured) ABG Methemoglobin ABG O2 Capacity Hgb O2 Saturation FiO2 Crit Value Called To Crit Value Called By Blood Gas Notified Time Sodium 141 Potassium 5.5 H Chloride 107 Carbon Dioxide 23 Anion Gap 16 BUN 47 H Creatinine 2.4 H Est GFR ( Amer) 25 Est GFR (Non-Af Amer) 21 POC Glucose (mg/dL) 97 Random Glucose 156 H Calcium 9.1 Iron Total Bilirubin 0.4 AST 31 ALT < 6 L Alkaline Phosphatase 59 Troponin I < 0.01 D Total Protein 7.1 Albumin 3.6 Globulin 3.4 Albumin/Globulin Ratio 1.1 07/12/18 07/12/18 07/12/18 03:50 08:33 09:15 WBC RBC Hgb Hct MCV MCH MCHC RDW Plt Count MPV Neut % (Auto) Lymph % (Auto) [place] % (Auto) Eos % (Auto) Baso % (Auto) Lymph # (Auto) [place] # (Auto) Eos # (Auto) Baso # (Auto) Absolute Neuts (auto) Neutrophils % (Manual) Band Neutrophils % Lymphocytes % (Manual) Monocytes % (Manual) Eosinophils % (Manual) Toxic Granulation Platelet Evaluation Retic Count 1.39 pCO2 64 H pO2 102.0 H HCO3 23.3 ABG pH 7.17 L* ABG Total CO2 25.3 ABG O2 Saturation 98.5 H ABG O2 Content 11.6 L ABG Base Excess -5.4 L ABG Hemoglobin 8.6 L ABG Carboxyhemoglobin 4.0 H POC ABG HHb (Measured) 1.4 ABG Methemoglobin 0.2 ABG O2 Capacity 11.8 L Hgb O2 Saturation 94.3 L FiO2 36.0 Crit Value Called [place] [id number] Blood Gas Notified Time 357 Sodium Potassium Chloride Carbon Dioxide Anion Gap BUN Creatinine Est GFR ( Amer) Est GFR (Non-Af Amer) POC Glucose (mg/dL) 138 H Random Glucose Calcium Iron Total Bilirubin AST ALT Alkaline Phosphatase Troponin I Total Protein Albumin Globulin Albumin/Globulin Ratio 07/12/18 09:15 WBC RBC Hgb Hct MCV MCH MCHC RDW Plt Count MPV Neut % (Auto) Lymph % (Auto) [place] % (Auto) Eos % (Auto) Baso % (Auto) Lymph # (Auto) [place] # (Auto) Eos # (Auto) Baso # (Auto) Absolute Neuts (auto) Neutrophils % (Manual) Band Neutrophils % Lymphocytes % (Manual) Monocytes % (Manual) Eosinophils % (Manual) Toxic Granulation Platelet Evaluation Retic Count pCO2 pO2 HCO3 ABG pH ABG Total CO2 ABG O2 Saturation ABG O2 Content ABG Base Excess ABG Hemoglobin ABG Carboxyhemoglobin POC ABG HHb (Measured) ABG Methemoglobin ABG O2 Capacity Hgb O2 Saturation FiO2 Crit Value Called To Crit Value Called By Blood Gas Notified Time Sodium Potassium Chloride Carbon Dioxide Anion Gap BUN Creatinine Est GFR ( Amer) Est GFR (Non-Af Amer) POC Glucose (mg/dL) Random Glucose Calcium Iron 23 L Total Bilirubin AST ALT Alkaline Phosphatase Troponin I Total Protein Albumin Globulin Albumin/Globulin Ratio Attending/Attestation - Attestation I have personally seen and examined this patient.: Yes I have fully participated in the care of the patient.: Yes I have reviewed all pertinent clinical information: Yes Notes (Text): 07/12/18 09:44 Patient was seen when she was in the bed # 1 in the ER. Medical record was reviewed. Agree with history,physical examination, assessment and plan. does not want this admission as per ER Physician . Patient has PMH of breast cancer, COPD/Asthma,anxiety, plerual effusion, CKD., polysubstance abuse,DM II recurrent UTI, ,stomach surgery, smoker, allergy to levofloxacin, nystatin, leukocytosis, anemia, hyperkalemia, cataract surgery, bladder tumor, chemo therapy, inguinal herniorrhaphy, port-a- cath insertion.
[2018-07-12 06:16] LABS: BAND 5 % (0-2); EOSINOPHIL 3 % (0.0-3.0); LYMPHOCYTE 5 % (22.0-35.0); MONOCYTE 2 % (1.0-6.0); NEUTROPHIL 85 % (50.0-70.0)
[2018-07-12 06:17] LABS: PLATELET ESTIMATE NORMAL (NORMAL); TOXIC GRANULATION SLIGHT
[2018-07-12] MEDS ORDERED: Dextrose 50% SYRINGE Inj (50 ml) IV PRN (07:11)
[2018-07-12] MEDS ORDERED: Albuterol-Ipratrop 3 mg / 0.5 (3 ml) UD IH PRN (07:13)
[2018-07-12] MEDS ORDERED: Insulin Reg-LOW-Coverage SC SCH (07:30)
[2018-07-12] MEDS ORDERED: Azithromycin 500MG/NS 250ml 500 MG/250 ML BAG IVPB STA (07:44)
[2018-07-12] MEDS: Sodium Chloride 0.9% 1,000 ML IV SCH ×2 (08:39→18:43)
[2018-07-12] MEDS: Albuterol-Ipratrop 3 mg / 0.5 (3 ml) UD IH SCH ×3 (08:40→20:06)
[2018-07-12] MEDS: Budesonide 0.25 mg/2 ml Inhal Susp UD IH SCH ×2 (08:40→20:06)
[2018-07-12] MEDS: Arformoterol 15 mcg/2 ml Inh Sol IH SCH ×2 (08:41→20:06)
--- NOTE | 2018-07-12 08:51 | CP.PCM.CON ---
History of Present Illness - History of Present Illness History of Present Illness: PGY-[address] Ross Rivas Consult: Hypoglycemia Ms Randolph, 57F, active smoker 3 ppd x 40 years, was brought in by EMS for AMS and hypoglycemia. Son, who lives with pt, states that she is not quite herselfm but POx normal, so he called ambulance. Patient's family reported patient was not responding at home, even after they threw water on her to wake her up. EMS was notified and patient was noted to be hypoglycemic with a blood glucose level of 40. Patient was given Glucagon in the field with improvement in mental status. Pt did not skip any medicine but poor appetite. Son did cooking at home. At home, Levemir 30 HS only, not on humalog, not on chronic prednisone ROS: (+) poor appetite, (+) chronic sob, (+) itchy Denies fever, chills. CP, N/V/D/C, dysuria PMHx breast cancer (hormone positive, 2016 s/p mastectomy, chemo), recurrent pleural effusions, R, last admission Apr 2018 severe COPD on 3L NC, active smoker, asthma CKD 3, bladder tumor anxiety PSHx: Mastectomy, Bladder surgery, Spine surgery, inguinal hernia repair Family Hx: Heart Problems, DM, CA Social Hx: Tobacco 3 pack/day 40 years; Denies alcohol and drug use. History of drug overdose. Lives at home with son. ADLs and most iADLs independent, and sort medicine herself Allergies: levofloxacin, nystatin Medication: see [facility] PMD: Dr. Sosa Past Patient History - Infectious Disease Hx of Infectious Diseases: None - Tetanus Immunizations Tetanus Immunization: Unknown - Past Medical History & Family History Past Medical History?: Yes - Past Social History Smoking Status: Current Some Days Smoker - CARDIAC Hx Pacemaker: No - PULMONARY Hx Respiratory Disorders: Yes Hx Asthma: Yes Hx Chronic Obstructive Pulmonary Disease (COPD): Yes - NEUROLOGICAL Hx Neurological Disorder: Yes - HEENT Hx HEENT Problems: Yes Hx Cataracts: Yes - RENAL Hx Chronic Kidney Disease: Yes (BLADDER TUMOR) - ENDOCRINE/METABOLIC Hx Endocrine Disorders: Yes Hx Diabetes Mellitus Type 2: Yes - HEMATOLOGICAL/ONCOLOGICAL Hx Blood Disorders: Yes Hx Blood Transfusions: Yes Hx Blood Transfusion Reaction: No Hx Cancer: Yes (breast) Hx Chemotherapy: Yes - INTEGUMENTARY Hx Dermatological Problems: Yes - MUSCULOSKELETAL/RHEUMATOLOGICAL Hx Musculoskeletal Disorders: Yes - GASTROINTESTINAL Hx Gastrointestinal Disorders: Yes (INGUINAL HERNIA REPAIR) - GENITOURINARY/GYNECOLOGICAL Hx Genitourinary Disorders: No - PSYCHIATRIC Hx Psychophysiologic Disorder: Yes Hx Anxiety: Yes Hx Emotional Abuse: No Hx Physical Abuse: No Hx Substance Use: No (UNKNOWN) - SURGICAL HISTORY Hx Surgeries: Yes (reports had breast surgey many years ago that why port) - ANESTHESIA Hx Anesthesia Reactions: No Hx Malignant Hyperthermia: No Meds Allergies/Adverse Reactions: Allergies Allergy/AdvReac Type Severity Reaction Status Date / Time levofloxacin [From Levaquin] Allergy SHORTNESS Verified 04/11/18 14:31 OF BREATH;PARANOID nystatin Allergy SWELLING Verified 04/11/18 14:31 - Medications Medications: Current Medications Albuterol/Ipratropium (Duoneb 3 Mg/0.5 Mg (3 Ml) Ud) 3 ml IH Q2H PRN PRN Reason: Shortness of Breath Albuterol/Ipratropium (Duoneb 3 Mg/0.5 Mg (3 Ml) Ud) 3 ml IH [id number] [facility] Last Admin: 07/12/18 08:40 Dose: 3 ml Alprazolam (Xanax) 0.5 mg PO QID PRN; Protocol PRN Reason: Anxiety Arformoterol Tartrate (Brovana) 15 mcg IH [id number] [facility] Last Admin: 07/12/18 08:41 Dose: 15 mcg Aspirin (Ecotrin) 81 mg PO DAILY [facility] Atorvastatin Calcium (Lipitor) 20 mg PO HS [facility] Budesonide (Pulmicort Respules) 0.25 mg IH [id number] [facility] Last Admin: 07/12/18 08:40 Dose: 0.25 mg Dextrose (Dextrose 50% Inj) 0 ml IV STAT PRN; Protocol PRN Reason: Hypoglycemia Protocol Famotidine (Pepcid) 40 mg PO DAILY [facility] Dextrose (Dextrose 5% In Water 1000 Ml) 1,000 mls @ 0 mls/hr IV .Q0M PRN; Protocol PRN Reason: Hypoglycemia Protocol Sodium Chloride (Sodium Chloride 0.9%) 1,000 mls @ 100 mls/hr IV .Q10H [facility] Last Admin: 07/12/18 08:39 Dose: 100 mls/hr Azithromycin (Zithromax 500mg In Ns) 500 mg in 250 mls @ 167 mls/hr IVPB STAT STA; Protocol Stop: 07/12/18 09:13 Last Admin: 07/12/18 08:40 Dose: 167 mls/hr Azithromycin 250 mg/ Sodium (Chloride) 250 mls @ 167 mls/hr IVPB DAILY [facility]; Protocol Insulin Human Regular (Humulin R Low) 0 units SC ACHS [facility]; Protocol Last Admin: 07/12/18 08:45 Dose: Not Given Methylprednisolone (Solu-Medrol) 40 mg IVP Q12 [facility] Metoprolol Tartrate (Lopressor) 25 mg PO BID [facility] Nicotine (Nicoderm Cq) 1 patch TD DAILY [facility] Paroxetine HCl (Paxil) 5 mg PO HS [facility] Physical Exam - Constitutional Appears: No Acute Distress - Head Exam Head Exam: ATRAUMATIC, NORMAL INSPECTION, NORMOCEPHALIC - Eye Exam Eye Exam: EOMI, Normal appearance, PERRL. absent: Scleral icterus Pupil Exam: NORMAL ACCOMODATION - ENT Exam ENT Exam: Mucous Membranes Moist - Neck Exam Additional comments: supple - Respiratory Exam Respiratory Exam: Decreased Breath Sounds (R > L), Clear to Auscultation Bilateral. absent: Rhonchi, Wheezes - Cardiovascular Exam Cardiovascular Exam: REGULAR RHYTHM, +S1, +S2. absent: Systolic Murmur Additional comments: Port-a-cath intact, no erythema - GI/Abdominal Exam GI & Abdominal Exam: Normal Bowel Sounds, Soft. absent: Distended, Guarding, Rigid, Tenderness - Extremities Exam Extremities exam: Positive for: pedal pulses present. Negative for: calf tenderness Additional comments: scratch moody in all extremities - Neurological Exam Neurological exam: Alert, CN II-XII Intact, Oriented x3 - Psychiatric Exam Psychiatric exam: Normal Affect, Normal Mood - Skin Skin Exam: Dry, Warm Results - Vital Signs Recent Vital Signs: Last Vital Signs Temp 97.4 F L 07/12/18 03:06 Pulse 78 07/12/18 06:33 Resp 14 07/12/18 06:33 BP 108/50 L 07/12/18 06:33 Pulse Ox 98 07/12/18 06:33 - Labs Result Diagrams: 07/12/18 03:42 07/12/18 03:42 Labs: Laboratory Results - last 24 hr 07/12/18 07/12/18 07/12/18 03:01 03:42 03:42 WBC 16.3 H D RBC 2.99 L Hgb 8.6 L Hct 28.3 L MCV 94.6 MCH 28.8 MCHC 30.4 L RDW 15.9 H Plt Count 335 MPV 9.9 Neut % (Auto) 86.1 H Lymph % (Auto) 5.0 L Real % (Auto) 4.8 Eos % (Auto) 3.9 Baso % (Auto) 0.2 Lymph # (Auto) 0.8 L Real # (Auto) 0.8 H Eos # (Auto) 0.6 Baso # (Auto) 0.03 Absolute Neuts (auto) 14.05 H Neutrophils % (Manual) 85 H Band Neutrophils % 5 H Lymphocytes % (Manual) 5 L Monocytes % (Manual) 2 Eosinophils % (Manual) 3 Toxic Granulation Slight Platelet Evaluation Normal pCO2 pO2 HCO3 ABG pH ABG Total CO2 ABG O2 Saturation ABG O2 Content ABG Base Excess ABG Hemoglobin ABG Carboxyhemoglobin POC ABG HHb (Measured) ABG Methemoglobin ABG O2 Capacity Hgb O2 Saturation FiO2 Crit Value Called To Crit Value Called By Blood Gas Notified Time Sodium 141 Potassium 5.5 H Chloride 107 Carbon Dioxide 23 Anion Gap 16 BUN 47 H Creatinine 2.4 H Est GFR ( Amer) 25 Est GFR (Non-Af Amer) 21 POC Glucose (mg/dL) 97 Random Glucose 156 H Calcium 9.1 Total Bilirubin 0.4 AST 31 ALT < 6 L Alkaline Phosphatase 59 Troponin I < 0.01 D Total Protein 7.1 Albumin 3.6 Globulin 3.4 Albumin/Globulin Ratio 1.1 07/12/18 03:50 WBC RBC Hgb Hct MCV MCH MCHC RDW Plt Count MPV Neut % (Auto) Lymph % (Auto) Real % (Auto) Eos % (Auto) Baso % (Auto) Lymph # (Auto) Real # (Auto) Eos # (Auto) Baso # (Auto) Absolute Neuts (auto) Neutrophils % (Manual) Band Neutrophils % Lymphocytes % (Manual) Monocytes % (Manual) Eosinophils % (Manual) Toxic Granulation Platelet Evaluation pCO2 64 H pO2 102.0 H HCO3 23.3 ABG pH 7.17 L* ABG Total CO2 25.3 ABG O2 Saturation 98.5 H ABG O2 Content 11.6 L ABG Base Excess -5.4 L ABG Hemoglobin 8.6 L ABG Carboxyhemoglobin 4.0 H POC ABG HHb (Measured) 1.4 ABG Methemoglobin 0.2 ABG O2 Capacity 11.8 L Hgb O2 Saturation 94.3 L FiO2 36.0 Crit Value Called [place] [id number] Blood Gas Notified Time 357 Sodium Potassium Chloride Carbon Dioxide Anion Gap BUN Creatinine Est GFR ( Amer) Est GFR (Non-Af Amer) POC Glucose (mg/dL) Random Glucose Calcium Total Bilirubin AST ALT Alkaline Phosphatase Troponin I Total Protein Albumin Globulin Albumin/Globulin Ratio Assessment & Plan - Assessment and Plan (Free Text) Plan: Ms Randolph, 57F, active smoker 3 ppd x 40 years, chronic COPD on 3L o2 home, Recurrent R pleural effusion and hx breast ca, was brought in by EMS for AMS and hypoglycemia 40 in the field. She had decreased appetite recently. She has hx breast ca s/p mastectomy, chemo, recurrent R pleural effusion. EKG normal. CXR R effusion and infiltrates. Head CT normal. She is on-bipap for acute on chronic respiratory failure and respiratory acidosis. She may have DAHLIA on CKD 3, now creatinine 2.4, managed per primary Hypoglycemia Decreased appetite A1C 8.7 (Apr 2018) - low insulin sliding scale for now, acce check achs - on steroid for COPD exacerbation, will affect blood glucose - carb consist diet s/r/d/w Dr Hawkins
--- NOTE | 2018-07-12 09:04 | CT ---
Date of service: 07/12/2018 PROCEDURE: CT HEAD WITHOUT CONTRAST. HISTORY: ams COMPARISON: 03/08/2018. TECHNIQUE: Axial computed tomography images were obtained through the head/brain without intravenous contrast. Supplemental Coronal and Sagittal projections created and reviewed. Radiation dose: Total exam DLP = 796.62 mGy-cm. This CT exam was performed using one or more of the following dose reduction techniques: Automated exposure control, adjustment of the mA and/or kV according to patient size, and/or use of iterative reconstruction technique. FINDINGS: HEMORRHAGE: No intracranial hemorrhage. BRAIN: No mass effect or edema. No atrophy or chronic microvascular ischemic changes. VENTRICLES: Unremarkable. No hydrocephalus. CALVARIUM: Unremarkable. PARANASAL SINUSES: Unremarkable as visualized. No significant inflammatory changes. MASTOID AIR CELLS: Unremarkable as visualized. No inflammatory changes. OTHER FINDINGS: None. IMPRESSION: No acute intracranial abnormalities. No significant findings to account for the clinical presentation. No significant interval change compared to the prior examination(s). Concordant results (preliminary interpretation) provided by [facility]. Procedure Completed: 04:20. Preliminary Report: Interpreted and electronically signed: 05:05. Final Interpretation: 09:01. July 12, 2018.
--- NOTE | 2018-07-12 09:35 | RAD ---
Date of service: 07/12/2018 PROCEDURE: CHEST RADIOGRAPH, 1 VIEW HISTORY: ams COMPARISON: None available. FINDINGS: LUNGS: There is dense consolidation and volume loss in the right lung similar to multiple previous studies including the CT scan from 04/20/2018. That study showed endobronchial obstruction. Findings were discussed with PLEURA: No pneumothorax or pleural fluid seen. CARDIOVASCULAR: No aortic atherosclerotic calcification present. Normal. OSSEOUS STRUCTURES: No significant abnormalities. VISUALIZED UPPER ABDOMEN: Normal. OTHER FINDINGS: None. IMPRESSION: Volume loss right lung and dense lower lobe consolidation consistent with lobar atelectasis
[2018-07-12 09:38] LABS: IRON 23 ug/dL (45-180)
[2018-07-12 09:47] LABS: % IRON SATURATION 11 % (20-55); TOTAL IRON BINDING CAPACITY 211 ug/dL (265-497)
[2018-07-12] MEDS ORDERED: Fluticasone-Salmeterol 100-50mcg Diskus INH SCH (10:00)
[2018-07-12] MEDS ORDERED: cefTRIAXone 1 gm 1 GM/100 ML BAG IVPB SCH (10:00)
[2018-07-12] MEDS ORDERED: MethylPREDNISolone 40 mg Vial IVP SCH (10:00)
[2018-07-12 10:19] LABS: URINE BILIRUBIN NEGATIVE (NEGATIVE); URINE BLOOD SMALL (NEGATIVE); URINE GLUCOSE (UA) NEGATIVE (NEGATIVE); URINE LEUKOCYTE ESTERASE MODERATE Leu/uL (NEGATIVE); URINE PROTEIN 100 mg/dL (<30 mg/dL); URINE UROBILINOGEN 0.2 E.U./dL (<1 E.U./dL)
[2018-07-12 10:21] LABS: ARTERIAL BLOOD GAS HCO3 23.1 mmol/L (21-28); ARTERIAL BLOOD GAS HEMOGLOBIN 8.2 g/dL (11.7-17.4); ARTERIAL BLOOD GAS O2 CAPACITY 11.2 mL/dl (16-24); ARTERIAL BLOOD GAS O2 CONTENT 10.6 ML/dl (15-23); ARTERIAL BLOOD GAS O2 SAT 94.6 % (95-98); ARTERIAL BLOOD GAS PCO2 54 mm/Hg (35-45); ARTERIAL BLOOD GAS PH 7.24 (7.35-7.45); ARTERIAL BLOOD GAS TCO2 24.8 mmol.L (22-28)
[2018-07-12 10:23] LABS: URINE APPEARANCE CLEAR (CLEAR); URINE COLOR YELLOW (YELLOW)
--- NOTE | 2018-07-12 10:46 | CARD ---
APPROVED REPORT Date of service: 07/12/2018 EKG Measurement Heart [id number] <Conclusion> Normal sinus rhythm Normal ECG
[2018-07-12] MEDS: MethylPREDNISolone 40 mg Vial IVP SCH ×2 (10:48→17:26)
[2018-07-12 10:56] LABS: URINE BACTERIA MANY /hpf; URINE WBC 25 - 30 /hpf (0-6)
[2018-07-12 10:57] LABS: URINE AMORPHOUS SEDIMENT FEW /hpf
[2018-07-12] MEDS: Insulin Lispro (humaLOG) LOW Coverage SC SCH ×3 (12:25→22:30)
--- NOTE | 2018-07-12 12:34 | CP.PCM.CON ---
<George Mullins - Last Filed: 07/13/18 13:36> History of Present Illness - History of Present Illness History of Present Illness: George Mullins Heme/Onc Consult Note for Dr. Gleason 57 year old female past medical history includes breast cancer, severe COPD, asthma, anxiety, pleural effusions, and CKD, who presented to the ED hypoglycemia. Heme/Onc consulted for RLL atelectasis and high risk of CA. Patient says she feels tired. Denies fever, chills, nausea, vomitnig, abdominal pain or any other complaints at this time. States her SOB has improved. Currently off bipap. PMHx: breast cancer, severe COPD, asthma, anxiety, pleural effusions, CKD. PSHx: Mastectomy, Bladder surgery, Spine surgery Family Hx: Heart Problems, DM, CA Social Hx: Tobacco 1 pack/day 40 years; Denies alcohol and drug use. History of drug overdose. Lives at home with son. Allergies: levofloxacin, nystatin Medication: see MAY PMD: Dr. Sosa Review of Systems - Review of Systems Review of Systems: Negative except which mentioned in HPI Past Patient History - Infectious Disease Hx of Infectious Diseases: None - Tetanus Immunizations Tetanus Immunization: Unknown - Past Medical History & Family History Past Medical History?: Yes - Past Social History Smoking Status: Current Some Days Smoker - CARDIAC Hx Pacemaker: No - PULMONARY Hx Respiratory Disorders: Yes Hx Asthma: Yes Hx Chronic Obstructive Pulmonary Disease (COPD): Yes - NEUROLOGICAL Hx Neurological Disorder: Yes - HEENT Hx HEENT Problems: Yes Hx Cataracts: Yes - RENAL Hx Chronic Kidney Disease: Yes (BLADDER TUMOR) - ENDOCRINE/METABOLIC Hx Endocrine Disorders: Yes Hx Diabetes Mellitus Type 2: Yes - HEMATOLOGICAL/ONCOLOGICAL Hx Blood Disorders: Yes Hx Blood Transfusions: Yes Hx Blood Transfusion Reaction: No Hx Cancer: Yes (breast) Hx Chemotherapy: Yes - INTEGUMENTARY Hx Dermatological Problems: Yes - MUSCULOSKELETAL/RHEUMATOLOGICAL Hx Musculoskeletal Disorders: Yes - GASTROINTESTINAL Hx Gastrointestinal Disorders: Yes (INGUINAL HERNIA REPAIR) - GENITOURINARY/GYNECOLOGICAL Hx Genitourinary Disorders: No - PSYCHIATRIC Hx Psychophysiologic Disorder: Yes Hx Anxiety: Yes Hx Emotional Abuse: No Hx Physical Abuse: No Hx Substance Use: No (UNKNOWN) - SURGICAL HISTORY Hx Surgeries: Yes (reports had breast surgey many years ago that why port) - ANESTHESIA Hx Anesthesia Reactions: No Hx Malignant Hyperthermia: No Meds Allergies/Adverse Reactions: Allergies Allergy/AdvReac Type Severity Reaction Status Date / Time levofloxacin [From Levaquin] Allergy SHORTNESS Verified 04/11/18 14:31 OF BREATH;PARANOID nystatin Allergy SWELLING Verified 04/11/18 14:31 - Medications Medications: Current Medications Albuterol/Ipratropium (Duoneb 3 Mg/0.5 Mg (3 Ml) Ud) 3 ml IH Q2H PRN PRN Reason: Shortness of Breath Albuterol/Ipratropium (Duoneb 3 Mg/0.5 Mg (3 Ml) Ud) 3 ml IH [id number] [facility] Last Admin: 07/12/18 08:40 Dose: 3 ml Alprazolam (Xanax) 0.5 mg PO QID PRN; Protocol PRN Reason: Anxiety Arformoterol Tartrate (Brovana) 15 mcg IH [id number] [facility] Last Admin: 07/12/18 08:41 Dose: 15 mcg Aspirin (Ecotrin) 81 mg PO DAILY [facility] Last Admin: 07/12/18 10:48 Dose: 81 mg Atorvastatin Calcium (Lipitor) 20 mg PO HS [facility] Budesonide (Pulmicort Respules) 0.25 mg IH [id number] [facility] Last Admin: 07/12/18 08:40 Dose: 0.25 mg Dextrose (Dextrose 50% Inj) 0 ml IV STAT PRN; Protocol PRN Reason: Hypoglycemia Protocol Famotidine (Pepcid) 40 mg PO DAILY [facility] Last Admin: 07/12/18 10:47 Dose: 40 mg Dextrose (Dextrose 5% In Water 1000 Ml) 1,000 mls @ 0 mls/hr IV .Q0M PRN; Protocol PRN Reason: Hypoglycemia Protocol Sodium Chloride (Sodium Chloride 0.9%) 1,000 mls @ 100 mls/hr IV .Q10H [facility] Last Admin: 07/12/18 08:39 Dose: 100 mls/hr Azithromycin 250 mg/ Sodium (Chloride) 250 mls @ 167 mls/hr IVPB DAILY [facility]; Protocol Ceftriaxone Sodium (Rocephin 1 Gram Ivpb) 1 gm in 100 mls @ 100 mls/hr IVPB DAILY [facility]; Protocol Last Admin: 07/12/18 10:45 Dose: 100 mls/hr Insulin Human Lispro (Humalog Low) 0 units SC ACHS [facility]; Protocol Last Admin: 07/12/18 12:25 Dose: Not Given Methylprednisolone (Solu-Medrol) 40 mg IVP Q8H [facility] Last Admin: 07/12/18 10:48 Dose: 40 mg Metoprolol Tartrate (Lopressor) 25 mg PO BID [facility] Last Admin: 07/12/18 10:48 Dose: 25 mg Nicotine (Nicoderm Cq) 1 patch TD DAILY [facility] Last Admin: 07/12/18 10:47 Dose: 1 patch Paroxetine HCl (Paxil) 5 mg PO HS [facility] Physical Exam - Constitutional Appears: Non-toxic, No Acute Distress - Head Exam Head Exam: ATRAUMATIC, NORMAL INSPECTION, NORMOCEPHALIC - Eye Exam Eye Exam: EOMI, Normal appearance - ENT Exam ENT Exam: Mucous Membranes Moist - Respiratory Exam Respiratory Exam: Wheezes, NORMAL BREATHING PATTERN - Cardiovascular Exam Cardiovascular Exam: REGULAR RHYTHM, +S1, +S2 - Extremities Exam Extremities exam: Negative for: pedal edema - Neurological Exam Neurological exam: Alert, Oriented x3 Results - Vital Signs Recent Vital Signs: Last Vital Signs Temp 97.4 F L 07/12/18 03:06 Pulse 88 07/12/18 10:48 Resp 20 07/12/18 10:38 BP 137/56 L 07/12/18 10:48 Pulse Ox 100 07/12/18 10:38 - Labs Result Diagrams: 07/13/18 10:20 07/13/18 07:10 Labs: Laboratory Results - last 24 hr 07/12/18 07/12/18 07/12/18 03:01 03:42 03:42 WBC 16.3 H D RBC 2.99 L Hgb 8.6 L Hct 28.3 L MCV 94.6 MCH 28.8 MCHC 30.4 L RDW 15.9 H Plt Count 335 MPV 9.9 Neut % (Auto) 86.1 H Lymph % (Auto) 5.0 L [place] % (Auto) 4.8 Eos % (Auto) 3.9 Baso % (Auto) 0.2 Lymph # (Auto) 0.8 L [place] # (Auto) 0.8 H Eos # (Auto) 0.6 Baso # (Auto) 0.03 Absolute Neuts (auto) 14.05 H Neutrophils % (Manual) 85 H Band Neutrophils % 5 H Lymphocytes % (Manual) 5 L Monocytes % (Manual) 2 Eosinophils % (Manual) 3 Toxic Granulation Slight Platelet Evaluation Normal Retic Count pCO2 pO2 HCO3 ABG pH ABG Total CO2 ABG O2 Saturation ABG O2 Content ABG Base Excess ABG Hemoglobin ABG Carboxyhemoglobin POC ABG HHb (Measured) ABG Methemoglobin ABG O2 Capacity Hgb O2 Saturation FiO2 Crit Value Called To Crit Value Called By Blood Gas Notified Time Sodium 141 Potassium 5.5 H Chloride 107 Carbon Dioxide 23 Anion Gap 16 BUN 47 H Creatinine 2.4 H Est GFR ( Amer) 25 Est GFR (Non-Af Amer) 21 POC Glucose (mg/dL) 97 Random Glucose 156 H Calcium 9.1 Iron TIBC % Saturation Total Bilirubin 0.4 AST 31 ALT < 6 L Alkaline Phosphatase 59 Troponin I < 0.01 D Total Protein 7.1 Albumin 3.6 Globulin 3.4 Albumin/Globulin Ratio 1.1 Urine Color Urine Appearance Urine pH Ur Specific [place] Urine Protein Urine Glucose (UA) Urine Ketones Urine Blood Urine Nitrate Urine Bilirubin Urine Urobilinogen Ur Leukocyte Esterase Urine RBC Urine WBC Ur Epithelial Cells Amorphous Sediment Urine Bacteria Urine Other 07/12/18 07/12/18 07/12/18 03:50 03:50 08:33 WBC RBC Hgb Hct MCV MCH MCHC RDW Plt Count MPV Neut % (Auto) Lymph % (Auto) [place] % (Auto) Eos % (Auto) Baso % (Auto) Lymph # (Auto) [place] # (Auto) Eos # (Auto) Baso # (Auto) Absolute Neuts (auto) Neutrophils % (Manual) Band Neutrophils % Lymphocytes % (Manual) Monocytes % (Manual) Eosinophils % (Manual) Toxic Granulation Platelet Evaluation Retic Count pCO2 64 H pO2 102.0 H HCO3 23.3 ABG pH 7.17 L* ABG Total CO2 25.3 ABG O2 Saturation 98.5 H ABG O2 Content 11.6 L ABG Base Excess -5.4 L ABG Hemoglobin 8.6 L ABG Carboxyhemoglobin 4.0 H POC ABG HHb (Measured) 1.4 ABG Methemoglobin 0.2 ABG O2 Capacity 11.8 L Hgb O2 Saturation 94.3 L FiO2 36.0 Crit Value Called [place] [id number] Blood Gas Notified Time 357 Sodium Potassium Chloride Carbon Dioxide Anion Gap BUN Creatinine Est GFR ( Amer) Est GFR (Non-Af Amer) POC Glucose (mg/dL) 138 H Random Glucose Calcium Iron TIBC % Saturation Total Bilirubin AST ALT Alkaline Phosphatase Troponin I Total Protein Albumin Globulin Albumin/Globulin Ratio Urine Color Yellow Urine Appearance Clear Urine pH 6.0 Ur Specific [place] 1.020 Urine Protein 100 H Urine Glucose (UA) Negative Urine Ketones Negative Urine Blood Small H Urine Nitrate Negative Urine Bilirubin Negative Urine Urobilinogen 0.2 Ur Leukocyte Esterase Moderate H Urine RBC 10 - 15 H Urine WBC 25 - 30 H Ur Epithelial Cells 6 - 8 H Amorphous Sediment Few Urine Bacteria Many Urine Other Uyeast 07/12/18 07/12/18 07/12/18 09:15 09:15 10:10 WBC RBC Hgb Hct MCV MCH MCHC RDW Plt Count MPV Neut % (Auto) Lymph % (Auto) [place] % (Auto) Eos % (Auto) Baso % (Auto) Lymph # (Auto) [place] # (Auto) Eos # (Auto) Baso # (Auto) Absolute Neuts (auto) Neutrophils % (Manual) Band Neutrophils % Lymphocytes % (Manual) Monocytes % (Manual) Eosinophils % (Manual) Toxic Granulation Platelet Evaluation Retic Count 1.39 pCO2 54 H pO2 62.0 L HCO3 23.1 ABG pH 7.24 L ABG Total CO2 24.8 ABG O2 Saturation 94.6 L ABG O2 Content 10.6 L ABG Base Excess -4.3 L ABG Hemoglobin 8.2 L ABG Carboxyhemoglobin 2.3 H POC ABG HHb (Measured) 5.2 H ABG Methemoglobin 1.1 ABG O2 Capacity 11.2 L Hgb O2 Saturation 91.4 L FiO2 28.0 Crit Value Called To Md bergman Crit Value Called By Rt Blood Gas Notified Time 1020 Sodium Potassium Chloride Carbon Dioxide Anion Gap BUN Creatinine Est GFR ( Amer) Est GFR (Non-Af Amer) POC Glucose (mg/dL) Random Glucose Calcium Iron 23 L TIBC 211 L % Saturation 11 L Total Bilirubin AST ALT Alkaline Phosphatase Troponin I Total Protein Albumin Globulin Albumin/Globulin Ratio Urine Color Urine Appearance Urine pH Ur Specific [place] Urine Protein Urine Glucose (UA) Urine Ketones Urine Blood Urine Nitrate Urine Bilirubin Urine Urobilinogen Ur Leukocyte Esterase Urine RBC Urine WBC Ur Epithelial Cells Amorphous Sediment Urine Bacteria Urine Other Assessment & Plan - Assessment and Plan (Free Text) Plan: Hx L breast cancer invasive ductal carcinoma -ER+/HER2+ -has received treatment in past then refused treatment -follow up as outpatient COPD -improving -off BIPAP -monitor -Chest xray showed: Volume loss right lung and dense lower lobe consolidation consistent with lobar atelectasis Patient might benefit from Chest CT, will recommend if needed. Previous CT results reviewed Continue to monitor <RosibelMelanie estevez - Last Filed: 07/14/18 12:16> Meds - Medications Medications: Current Medications Albuterol/Ipratropium (Duoneb 3 Mg/0.5 Mg (3 Ml) Ud) 3 ml IH Q2H PRN PRN Reason: Shortness of Breath Albuterol/Ipratropium (Duoneb 3 Mg/0.5 Mg (3 Ml) Ud) 3 ml IH [id number] [facility] Last Admin: 07/14/18 07:42 Dose: 3 ml Alprazolam (Xanax) 0.5 mg PO QID PRN; Protocol PRN Reason: Anxiety Last Admin: 07/14/18 08:43 Dose: 0.5 mg Arformoterol Tartrate (Brovana) 15 mcg IH [id number] [facility] Last Admin: 07/14/18 07:42 Dose: 15 mcg Aspirin (Ecotrin) 81 mg PO DAILY [facility] Last Admin: 07/14/18 10:07 Dose: 81 mg Atorvastatin Calcium (Lipitor) 20 mg PO HS [facility] Budesonide (Pulmicort Respules) 0.25 mg IH [id number] [facility] Last Admin: 07/14/18 07:43 Dose: 0.25 mg Dextrose (Dextrose 50% Inj) 0 ml IV STAT PRN; Protocol PRN Reason: Hypoglycemia Protocol Doxycycline Hyclate (Doryx) 100 mg PO Q12 [facility]; Protocol Stop: 07/20/18 22:01 Last Admin: 07/14/18 10:07 Dose: 100 mg Heparin Sodium (Porcine) (Heparin) 5,000 units SC Q8 [facility]; Protocol Last Admin: 07/14/18 06:50 Dose: 5,000 units Dextrose (Dextrose 5% In Water 1000 Ml) 1,000 mls @ 0 mls/hr IV .Q0M PRN; Protocol PRN Reason: Hypoglycemia Protocol Cefepime HCl (Maxipime 1gm) 1 gm in 100 mls @ 100 mls/hr IVPB Q24H [facility]; Protocol Stop: 07/21/18 17:16 Last Admin: 07/13/18 17:07 Dose: 100 mls/hr Insulin Detemir (Levemir) 30 unit SC HS [facility] Last Admin: 07/13/18 22:28 Dose: Not Given Insulin Human Lispro (Humalog Low) 0 units SC ACHS [facility]; Protocol Last Admin: 07/14/18 08:41 Dose: 2 unit Insulin Human Lispro (Humalog) 12 units SC ACTID [facility] Last Admin: 07/14/18 08:43 Dose: Not Given Methylprednisolone (Solu-Medrol) 40 mg IVP Q8H [facility] Last Admin: 07/14/18 10:07 Dose: 40 mg Metoprolol Tartrate (Lopressor) 25 mg PO BID [facility] Last Admin: 07/14/18 10:07 Dose: 25 mg Nicotine (Nicoderm Cq) 1 patch TD DAILY [facility] Last Admin: 07/14/18 10:07 Dose: 1 patch Ondansetron HCl (Zofran Inj) 4 mg IVP Q6H PRN PRN Reason: Nausea/Vomiting Pantoprazole Sodium (Protonix Ec Tab) 40 mg PO 0600 [facility] Last Admin: 07/14/18 06:51 Dose: 40 mg Paroxetine HCl (Paxil) 5 mg PO [facility] Results - Vital Signs Recent Vital Signs: Last Vital Signs Temp 98.7 F 07/13/18 18:44 Pulse 99 H 07/14/18 10:07 Resp 20 07/13/18 18:44 BP 122/70 07/14/18 10:07 Pulse Ox 99 07/13/18 06:00 - Labs Result Diagrams: 07/14/18 08:27 07/14/18 08:27 Labs: Laboratory Results - last 24 hr 07/13/18 07/13/18 07/13/18 10:20 11:55 16:40 WBC RBC Hgb Hct MCV MCH MCHC RDW Plt Count MPV Neut % (Auto) Lymph % (Auto) [place] % (Auto) Eos % (Auto) Baso % (Auto) Lymph # (Auto) [place] # (Auto) Eos # (Auto) Baso # (Auto) Absolute Neuts (auto) Sodium Potassium Chloride Carbon Dioxide Anion Gap BUN Creatinine Est GFR ( Amer) Est GFR (Non-Af Amer) POC Glucose (mg/dL) 226 H 267 H Random Glucose Calcium Total Bilirubin AST ALT Alkaline Phosphatase Total Protein Albumin Globulin Albumin/Globulin Ratio Blood Type B POSITIVE Antibody Screen Negative Crossmatch See Detail BBK History Checked Patient has bt 07/13/18 07/14/18 07/14/18 21:45 07:40 08:27 WBC 4.8 D RBC 2.67 L Hgb 7.7 L Hct 25.1 L MCV 94.0 MCH 28.8 MCHC 30.7 L RDW 16.5 H Plt Count 280 MPV 10.6 Neut % (Auto) 88.3 H Lymph % (Auto) 7.5 L [place] % (Auto) 3.8 Eos % (Auto) 0.2 L Baso % (Auto) 0.2 Lymph # (Auto) 0.4 L [place] # (Auto) 0.2 Eos # (Auto) 0.0 Baso # (Auto) 0.01 Absolute Neuts (auto) 4.21 Sodium Potassium Chloride Carbon Dioxide Anion Gap BUN Creatinine Est GFR ( Amer) Est GFR (Non-Af Amer) POC Glucose (mg/dL) 296 H 339 H Random Glucose Calcium Total Bilirubin AST ALT Alkaline Phosphatase Total Protein Albumin Globulin Albumin/Globulin Ratio Blood Type Antibody Screen Crossmatch BBK History Checked 07/14/18 08:27 WBC RBC Hgb Hct MCV MCH MCHC RDW Plt Count MPV Neut % (Auto) Lymph % (Auto) [place] % (Auto) Eos % (Auto) Baso % (Auto) Lymph # (Auto) [place] # (Auto) Eos # (Auto) Baso # (Auto) Absolute Neuts (auto) Sodium 142 Potassium 4.7 Chloride 110 H Carbon Dioxide 22 Anion Gap 14 BUN 58 H Creatinine 2.4 H Est GFR ( Amer) 25 Est GFR (Non-Af Amer) 21 POC Glucose (mg/dL) Random Glucose 336 H* D Calcium 7.8 L Total Bilirubin 0.3 AST 14 ALT 10 Alkaline Phosphatase 55 Total Protein 6.3 Albumin 3.3 Globulin 3.1 Albumin/Globulin Ratio 1.1 Blood Type Antibody Screen Crossmatch BBK History Checked Attending/Attestation - Attestation I have personally seen and examined this patient.: Yes I have fully participated in the care of the patient.: Yes I have reviewed all pertinent clinical information: Yes
[2018-07-12 12:59] LABS: BARBITURATES, UR NEGATIVE (NEGATIVE)
[2018-07-12 13:00] LABS: BENZODIAZEPINES, UR POSITIVE (NEGATIVE); OPIATES, UR NEGATIVE (NEGATIVE); PHENCYCLIDINE, UR NEGATIVE (NEGATIVE)
--- NOTE | 2018-07-12 13:17 | CON ---
DATE: 07/12/2018 CONSULTATION REPORT HISTORY OF PRESENT ILLNESS: The patient is seen and examined at bedside. This 57-year-old lady with history of breast cancer, severe COPD (on home oxygen), anxiety, pleural effusion, and chronic kidney disease who presented to emergency room for failure to thrive, increased shortness of breath, and "hypoglycemia." The patient initially was lethargic and was found to have CO2 retention with subsequent hypercapnic respiratory failure/respiratory acidosis. Of note, the patient is DNR/DNI. The patient was put on BiPAP and her mental status substantially improved. Of note, the patient has been seen by Dr. Rucker about a month ago, at which time, she was admitted with right lower lobe atelectasis, had similar symptoms. After vigorous pulmonary toilet, chest PT, bronchodilators, the patient's atelectasis resolved and no bronchoscopy was performed at that time. The patient was also seen by Dr. Gleason as the patient is a high risk for cancer (the patient is an active smoker) and was supposed to follow the oncologist as an outpatient. No nausea, no vomiting, no diarrhea, no constipation. The patient reports subjective fever; however, denies cough or increased sputum production. PAST MEDICAL HISTORY: Breast cancer, severe COPD, anxiety, chronic kidney disease. PAST SURGICAL HISTORY: Mastectomy, bladder surgery, spine surgery. FAMILY HISTORY: Noncontributory. SOCIAL HISTORY: The patient is an active smoker. She smoked about one pack a day for about 40 years. No alcohol or illicit drug abuse. She did have a history of drug abuse in the past though. ALLERGIES: LEVOFLOXACIN, NYSTATIN. HOME MEDICATIONS: Prednisone, Percocet, simvastatin, Advair, Paxil, metoprolol, Levemir, Lasix, iron supplementation, vitamin D, aspirin, Xanax, DuoNeb. REVIEW OF SYSTEMS: Reveals a 12-organ system other than mentioned in the history of present illness, is negative. PHYSICAL EXAMINATION: VITAL SIGNS: Temperature 97.4, heart rate 98, blood pressure 135/63, respiratory rate 18, oxygen saturation 94% on nasal cannula. HEENT: Head and neck atraumatic. LUNGS: Few wheezes and rhonchi bilaterally. HEART: Regular rate and rhythm; S1, S2 normal. ABDOMEN: Soft, nontender, nondistended. MUSCULOSKELETAL: No C/C/E; some muscle wasting present. NEURO: The patient moves all extremities spontaneously. SKIN: Moist. PSYCH: The patient is alert, awake, and oriented, not in respiratory or otherwise distress. LABORATORY DATA: WBC 16.3, hemoglobin 8.6, platelet count 335, eosinophils 0.6. Sodium 141, potassium 5.5, chloride 107, carbon dioxide 23, BUN 47, creatinine 2.4, glucose 138, troponin less than 0.01. A chest x-ray showed volume loss of the right lower lobe and dense lower lobe consolidation consistent with lobar atelectasis. Head CT showed no active intracranial pathology. ASSESSMENT: This is a 57-year-old lady with severe chronic obstructive pulmonary disease, on home oxygen, and steroid therapy at home, who presented with increased shortness of breath, lethargy, and was found to have carbon dioxide retention with hypercapnic respiratory failure requiring noninvasive positive pressure ventilation. The patient substantially improved after BiPAP was applied. She is still wheezing, though. She is DNR/DNI which was confirmed by the primary hospitalist. The patient will be continued on BiPAP for now, aggressive and vigorous pulmonary toilet, including IS, chest PT and nasotracheal suctioning, steroid taper, bronchodilators, and antibiotics. Septic workup will be initiated. Urine for Legionella streptococcal antigen, pro calcitonin, DVT, GI prophylaxis. Serial chest x-ray to assess whether right lower lobe atelectasis resolved. Upon discharge need to repeat imaging study to see if lung re-expanded. If concern for endobronchial lesion preventing re-expansion arises, will need PET scan and bronch. Hem/Onc consult requested as well. patient was on diuretic therapy at home. She appears to be somewhat dehydrated. We will hold diuresis and start up fluids. We will correct electrolytes. We will maintain mean arterial pressure more than 65, avoid hyperchloremia, maintain euvolemia, and euglycemia. Maintain blood glucose within 140-180 range. The patient may be admitted to telemetry. Addendum: ph improved to 7.24 from 7.17, continue BIPAP ccm time 40 min Rey Santiago MD [facility] # [id number] MTDD
--- NOTE | 2018-07-12 15:11 | CON ---
DATE OF CONSULTATION: 07/12/2018 ENDOCRINOLOGY CONSULTATION HISTORY OF PRESENT ILLNESS: This is a 57-year-old female with known history of type 2 insulin-requiring diabetes, presenting here with symptomatic hypoglycemia and altered mental status with a fingerstick glucose of 40 mg/dL and is now being referred for diabetic evaluation and management. She also had sudden onset of progressive shortness of breath and evaluated also to have acute exacerbation of COPD, placed on IV steroid therapy as noted. PAST MEDICAL HISTORY: As mentioned above, history of type 2 insulin-requiring diabetes on a combination of insulin taken as Levemir at 44 units subcu at bedtime daily with Humalog given as 14 units t.i.d. before meals as ordered. History of hypertension and dyslipidemia; history of generalized anxiety, on anxiolytic medications; history of prior pleural effusions as noted; also history of hypertension and dyslipidemia with chronic kidney disease and progressive renal insufficiency; history of a breast carcinoma with a prior mastectomy procedure as noted. FAMILY HISTORY: Positive for hypertension and diabetes. SOCIAL HISTORY: The patient has supportive family. She is an active smoker, smoked a pack a day for over 40 years. REVIEW OF SYSTEMS: As mentioned above, admits to generalized body weakness with episodic bouts of dizziness and lightheadedness, worse on the day of admission with altered mental status and a brief bout of confusion and disorientation as noted. Also admits to occasional visual blurring and bifrontal headaches. No chest pains, but admits to progressive shortness of breath initially on exertion and then at rest, worse in the last 3-4 days prior to admission. Her oral intake has been variable with nausea and dyspepsia. She denies any recent alterations of bowel and urinary patterns. PHYSICAL EXAMINATION: GENERAL: This is an average built female, in no apparent distress. VITAL SIGNS: Blood pressure of 140/80, pulse of 100 beats per minute, regular, temperature 99, respirations 20, height is 5 feet 4 inches, weight is 160 pounds. HEENT: Head, normocephalic. Eyes anicteric with pink conjunctivae. Fundoscopy not possible at this time. Ears, nose and throat, otherwise normal. NECK: Supple. Thyroid gland is normal in size. No carotid bruits or cervical adenopathy. CARDIOPULMONARY: Some adynamic precordium. S1, S2 are rapid and regular. LUNGS: Lungs show scattered rhonchi. ABDOMEN: Flat, soft with positive bowel sounds. EXTREMITIES: No peripheral edema. Pulses are +2 bilaterally. LABORATORY DATA: Chemistries, BUN of 47, sodium 141, potassium 5.5, chloride 107, CO2 of 23, glucose 156, and creatinine 2.4. ASSESSMENT: This is a 57-year-old female with uncontrolled and decompensated type 2 insulin-requiring diabetes, presenting here with symptomatic hypoglycemia and associated neuroglycopenic and hyperadrenergic manifestations of the same. The most likely etiology would be the variable oral intake and smaller meal portions, as per the patient, contributing to the recent low normal glycemic profile as noted. She also has severe COPD, presenting also now with acute exacerbation of the same, currently placed on IV steroid therapy with expected hyperglycemic accelerations transiently at least for her inpatient visit. She also has diabetic microvascular complications of retinopathy, polyneuropathy, and nephropathy with underlying chronic kidney disease. PLAN OF MANAGEMENT: We will hold off the initiation of the basal and bolus insulin drug combination and continue only a low-dose correction scale using Humalog insulin as given. We will observe her glycemic fluctuations and determine the need to start her back on basal insulin along with Levemir and/or a combination of a basal and bolus insulin regimen as indicated and also as her oral intake improves accordingly. We will obtain a hemoglobin A1c to confirm her prior glycemic control and baseline thyroid function studies will be ordered. We will obtain also a baseline TSH and lipid panel as ordered. We will follow and advise accordingly. Ernestina Hawkins MD
[2018-07-12 16:12] VITALS: BMI 27.4
[2018-07-12] MEDS ORDERED: Pneumococcal 23-Valent Vaccine IM ONE (16:13)
[2018-07-12] MEDS: Cefepime 1gm in NS 100ml 1 GM/100 ML BAG IVPB SCH (17:29)
[2018-07-12 17:40] LABS: CALCIUM 8.3 mg/dL (8.4-10.5)
[2018-07-12] MEDS ORDERED: Non Formulary Medication (Simvastatin [Simvastatin] 10 MG) PO SCH (22:00)
--- NOTE | 2018-07-12 22:27 | CP.PCM.PN ---
<JoseBrenda - Last Filed: 07/12/18 22:21> Subjective - Date & Time of Evaluation Date of Evaluation: 07/12/18 Time of Evaluation: 22:21 - Subjective Subjective: House doctor Call for hyperkaleMarleny moreno PGY3 Patient was noted to have hyperkalemia this AM. She was given 2 doses of kayexalate were give this morning but patient didn't have a bowel movement yet. She feels well upon evaluation. She denies chest pain, shortness of breath, nausea/vomiting, diarrhea, palpitations, fever or chills. Patient is agitated on exam and is refusing to change rooms, shower or take other medications. Objective - Vital Signs/Intake and Output Vital Signs (last 24 hours): Temp Pulse Resp BP Pulse Ox 97.8 F 94 H 20 111/57 L 100 07/12/18 12:43 07/12/18 18:00 07/12/18 15:18 07/12/18 17:25 07/12/18 10:38 Intake and Output: 07/12/18 07/13/18 18:59 06:59 Intake Total 1300 Output Total 100 Balance 1200 - Medications Medications: Current Medications Albuterol/Ipratropium (Duoneb 3 Mg/0.5 Mg (3 Ml) Ud) 3 ml IH Q2H PRN PRN Reason: Shortness of Breath Albuterol/Ipratropium (Duoneb 3 Mg/0.5 Mg (3 Ml) Ud) 3 ml IH [id number] [facility] Last Admin: 07/12/18 20:06 Dose: 3 ml Alprazolam (Xanax) 0.5 mg PO QID PRN; Protocol PRN Reason: Anxiety Last Admin: 07/12/18 21:24 Dose: 0.5 mg Arformoterol Tartrate (Brovana) 15 mcg IH [id number] [facility] Last Admin: 07/12/18 20:06 Dose: 15 mcg Aspirin (Ecotrin) 81 mg PO DAILY [facility] Last Admin: 07/12/18 10:48 Dose: 81 mg Atorvastatin Calcium (Lipitor) 20 mg PO HS [facility] Budesonide (Pulmicort Respules) 0.25 mg IH [id number] [facility] Last Admin: 07/12/18 20:06 Dose: 0.25 mg Dextrose (Dextrose 50% Inj) 0 ml IV STAT PRN; Protocol PRN Reason: Hypoglycemia Protocol Famotidine (Pepcid) 40 mg PO DAILY [facility] Last Admin: 07/12/18 10:47 Dose: 40 mg Dextrose (Dextrose 5% In Water 1000 Ml) 1,000 mls @ 0 mls/hr IV .Q0M PRN; P rotocol PRN Reason: Hypoglycemia Protocol Sodium Chloride (Sodium Chloride 0.9%) 1,000 mls @ 100 mls/hr IV .Q10H [facility] Last Admin: 07/12/18 18:43 Dose: 100 mls/hr Doxycycline Hyclate 100 mg/ (Sodium Chloride) 100 mls @ 100 mls/hr IVPB Q12 [facility]; Protocol Stop: 07/21/18 22:01 Last Admin: 07/12/18 21:59 Dose: 100 mls/hr Cefepime HCl (Maxipime 1gm) 1 gm in 100 mls @ 100 mls/hr IVPB Q24H [facility]; Pro tocol Stop: 07/21/18 17:16 Last Admin: 07/12/18 17:29 Dose: 100 mls/hr Insulin Human Lispro (Humalog Low) 0 units SC ACHS [facility]; Protocol Last Admin: 07/12/18 18:36 Dose: 1 unit Methylprednisolone (Solu-Medrol) 40 mg IVP Q8H [facility] Last Admin: 07/12/18 17:26 Dose: 40 mg Metoprolol Tartrate (Lopressor) 25 mg PO BID [facility] Last Admin: 07/12/18 17:25 Dose: 25 mg Nicotine (Nicoderm Cq) 1 patch TD DAILY [facility] Last Admin: 07/12/18 10:47 Dose: 1 patch Ondansetron HCl (Zofran Inj) 4 mg IVP Q6H PRN PRN Reason: Nausea/Vomiting Paroxetine HCl (Paxil) 5 mg PO HS [facility] - Labs Labs: 07/12/18 03:42 07/12/18 17:03 - Constitutional Appears: No Acute Distress, Agitated - Head Exam Head Exam: ATRAUMATIC, NORMAL INSPECTION, NORMOCEPHALIC - Eye Exam Eye Exam: Normal appearance Pupil Exam: NORMAL ACCOMODATION - ENT Exam ENT Exam: Mucous Membranes Moist - Respiratory Exam Respiratory Exam: NORMAL BREATHING PATTERN - Cardiovascular Exam Cardiovascular Exam: REGULAR RHYTHM, +S1, +S2. absent: Gallop, Murmur - GI/Abdominal Exam GI & Abdominal Exam: Soft, Normal Bowel Sounds. absent: Rigid, Tenderness, Rebound - Neurological Exam Neurological Exam: Alert, Awake, CN II-XII Intact - Psychiatric Exam Psychiatric exam: Agitated - Skin Skin Exam: Dry, Warm Assessment and Plan - Assessment and Plan (Free Text) Assessment: Hyperkalemia - Asymptomatic - Repeat K increased from 5.5 to 5.7 - EKG showed peaked T waves (similar to previous EKG on admission) - Calcium gluconate - albuterol 10mg inhalation - Will check K in AM Case seen, discussed and reviewed with attending Marleny Garcia PGY3 <Neeru Cobos - Last Filed: 07/13/18 09:49> Objective - Vital Signs/Intake and Output Vital Signs (last 24 hours): Temp Pulse Resp BP Pulse Ox 98.8 F 100 H 18 111/45 L 98 07/13/18 00:01 07/13/18 09:04 07/13/18 00:01 07/13/18 09:04 07/13/18 00:01 Intake and Output: 07/13/18 07/13/18 06:59 18:59 Intake Total 780 Output Total 3 Balance 777 - Medications Medications: Current Medications Albuterol/Ipratropium (Duoneb 3 Mg/0.5 Mg (3 Ml) Ud) 3 ml IH Q2H PRN PRN Reason: Shortness of Breath Albuterol/Ipratropium (Duoneb 3 Mg/0.5 Mg (3 Ml) Ud) 3 ml IH [id number] [facility] Last Admin: 07/13/18 07:47 Dose: 3 ml Alprazolam (Xanax) 0.5 mg PO QID PRN; Protocol PRN Reason: Anxiety Last Admin: 07/13/18 09:06 Dose: 0.5 mg Arformoterol Tartrate (Brovana) 15 mcg IH [id number] [facility] Last Admin: 07/13/18 07:47 Dose: 15 mcg Aspirin (Ecotrin) 81 mg PO DAILY [facility] Last Admin: 07/13/18 09:04 Dose: 81 mg Atorvastatin Calcium (Lipitor) 20 mg PO HS [facility] Budesonide (Pulmicort Respules) 0.25 mg IH [id number] [facility] Last Admin: 07/13/18 07:47 Dose: 0.25 mg Dextrose (Dextrose 50% Inj) 0 ml IV STAT PRN; Protocol PRN Reason: Hypoglycemia Protocol Dextrose (Dextrose 5% In Water 1000 Ml) 1,000 mls @ 0 mls/hr IV .Q0M PRN; Protocol PRN Reason: Hypoglycemia Protocol Sodium Chloride (Sodium Chloride 0.9%) 1,000 mls @ 100 mls/hr IV .Q10H [facility] Last Admin: 07/12/18 18:43 Dose: 100 mls/hr Doxycycline Hyclate 100 mg/ (Sodium Chloride) 100 mls @ 100 mls/hr IVPB Q12 [facility]; Protocol Stop: 07/21/18 22:01 Last Admin: 07/12/18 21:59 Dose: 100 mls/hr Cefepime HCl (Maxipime 1gm) 1 gm in 100 mls @ 100 mls/hr IVPB Q24H [facility]; Protocol Stop: 07/21/18 17:16 Last Admin: 07/12/18 17:29 Dose: 100 mls/hr Insulin Human Lispro (Humalog Low) 0 units SC ACHS [facility]; Protocol Last Admin: 07/13/18 09:05 Dose: 2 unit Methylprednisolone (Solu-Medrol) 40 mg IVP Q8H [facility] Last Admin: 07/13/18 09:03 Dose: 40 mg Metoprolol Tartrate (Lopressor) 25 mg PO BID [facility] Last Admin: 07/13/18 09:04 Dose: 25 mg Nicotine (Nicoderm Cq) 1 patch TD DAILY [facility] Last Admin: 07/13/18 09:02 Dose: 1 patch Ondansetron HCl (Zofran Inj) 4 mg IVP Q6H PRN PRN Reason: Nausea/Vomiting Oxycodone/Acetaminophen (Percocet 5/325 Mg Tab) 1 tab PO QID PRN PRN Reason: Pain, severe (8-10) Stop: 07/16/18 10:01 Last Admin: 07/12/18 23:34 Dose: 1 tab Pantoprazole Sodium (Protonix Ec Tab) 40 mg PO 0600 [facility] Paroxetine HCl (Paxil) 5 mg PO HS [facility] - Labs Labs: 07/13/18 07:10 07/13/18 07:10 Attending/Attestation - Attestation I have personally seen and examined this patient.: Yes I have fully participated in the care of the patient.: Yes I have reviewed all pertinent clinical information, including history, physical exam and plan: Yes
[2018-07-12] MEDS ORDERED: Albuterol 0.5% Inhal Sol (2.5 mg/0.5 ml) UD IH STA (22:28)
[2018-07-12] MEDS ORDERED: Calcium Gluconate in NS 1 GM/50 ML BAG IV ONE (22:45)
--- NOTE | 2018-07-12 22:52 | CON ---
DATE OF CONSULTATION: 07/12/2018 REASON FOR CONSULTATION: Acute kidney injury, severe anemia, hyperkalemia. HISTORY OF PRESENT ILLNESS: The patient is a 57-year lady known to us from prior evaluations. The patient presented to the emergency room late last night with complaints of shortness of breath, difficulty breathing, cough, scanty phlegm. In the emergency room, the patient was found to be normotensive and afebrile. Her O2 sat was 96. Her blood work showed a potassium of 5.5, BUN of 47, and creatinine of 2.4. Her baseline creatinine is anywhere between 1.5 to 2.0. Consultation is requested for acute kidney injury, hyperkalemia. She was also found to be severely anemic. Her hemoglobin was found to be 8.6. She does have chronic anemia. PAST MEDICAL AND SURGICAL HISTORY: Breast cancer, hormone positive; history of mastectomy, chemotherapy; recurrent bilateral pleural effusions; COPD; chronic kidney disease, stage 3; history of bladder tumor; bladder surgery; spine surgery; inguinal hernia repair. FAMILY HISTORY: Hypertension, diabetes. SOCIAL HISTORY: Active smoker, three packs per day for 40 years, no alcohol use, no IV drug abuse. ALLERGIES: LEVAQUIN. MEDICATIONS AT HOME: Simvastatin, Paxil, Lopressor 25 b.i.d., Pepcid, aspirin, Xanax, DuoNeb, prednisone 20, Percocet, prednisone 10, Lasix 40, Fergon. REVIEW OF SYSTEMS: The patient complains of shortness of breath. She complains of cough. She complains of scanty phlegm. She also complains of low sugar this morning. PHYSICAL EXAMINATION: GENERAL: Obese middle-aged lady lying in bed. VITAL SIGNS: Blood pressure 133/69, heart rate 91, respiratory rate 20, temperature 97.8. HEENT: Normocephalic, atraumatic, positive pallor. NECK: Supple, no JVD. LUNGS: Bilateral equal air entry, bilateral rhonchi, no rales. CARDIAC: S1 and S2, regular rate and rhythm, no murmur, no rub. ABDOMEN: Obese, distended, soft, nontender, bowel sounds present. EXTREMITIES: No lower extremity edema. Intake and output not charted. LABORATORY DATA: WBC 16, hemoglobin 8.6, hematocrit 28, platelets 335,000. Sodium 141, potassium 5.5, chloride 107, CO2 of 23, BUN 47, creatinine 2.4, glucose 156, calcium 9.1. Iron saturation 11, iron 23, ferritin pending. Urinalysis: Yellow, clear, pH 6.0, specific gravity 1.020, protein 100, blood small, leukocyte esterase moderate. Urine toxicology positive for benzodiazepines. Chest x-ray, dense consolidation and volume loss in the right lung similar to previous studies including a CT scan. CURRENT MEDICATIONS: Azithromycin 250, Brovana, DuoNeb, Ecotrin 81, Lipitor 20, Lopressor 25 b.i.d., Paxil 5, Pepcid, ceftriaxone, normal saline at 100, Solu-Medrol 40 IV every 8 hours, Xanax, Zofran. ASSESSMENT: 1. Acute kidney injury superimposed on chronic kidney disease, stage 3/4. 2. Hyperkalemia, likely secondary to acute kidney injury. 3. Severe anemia with low iron stores, ? GI blood loss. 4. Severe chronic obstructive pulmonary disease, continued smoking. 5. History of breast cancer. 6. Chronic pleural effusions. 7. Hypoglycemia. PLAN: 1. IV fluid resuscitation. 2. Empiric antibiotics for respiratory tract infection. 3. Agree with one dose of Kayexalate. 4. Panculture. 5. Monitor urine output. 6. Monitor labs. Lula Hurd MD
[2018-07-12] MEDS ORDERED: Oxycodone/Acetaminophen 5/325 mg Tab PO PRN (22:56)
[2018-07-13] MEDS: MethylPREDNISolone 40 mg Vial IVP SCH ×3 (02:26→17:05)
[2018-07-13 07:23] LABS: HEMOGLOBIN 7.7 g/dL (12.0-16.0); LYMPH # 0.6 (1.2-3.4); LYMPH % 7.7 % (22.0-35.0); MEAN CELL VOLUME 91.6 fl (80.0-105.0); MEAN CORPUSCULAR HGB CONC 30.6 g/dl (31.0-37.0); MEAN PLATELET VOLUME 8.8 fl (7.0-11.0); MONO # 0.2 (0.1-0.6); MONO % 2.8 % (1.0-6.0); RBC 2.75 10^6/uL (3.5-6.1); RED CELL DISTRIBUTION WIDTH 15.5 % (11.5-14.5); WHITE BLOOD COUNT 8.3 10^3/uL (4.5-11.0)
--- NOTE | 2018-07-13 07:23 | CON ---
DATE: 07/12/2018 LOCATION: The patient is seen in emergency room earlier today. CHIEF COMPLAINT: Shortness of breath times several days. HISTORY OF PRESENT ILLNESS: This is a 57-year-old female with history of breast cancer, COPD, anxiety, pleural effusions, kidney disease, and early substance abuse. The patient was admitted because of hypoglycemia and also short of breath at home. The patient was found at home not responding. The patient was given treatment . REVIEW OF SYSTEMS: Reveals no chest pain. No vomiting, diarrhea, or urinary symptoms. No headache. Shortness of breath has improved. PAST MEDICAL HISTORY: Significant for breast cancer, end-stage COPD, anxiety, pleural effusion, kidney disease, and polysubstance abuse. PAST SURGICAL HISTORY: Reveals a hernia repair. ALLERGIES: THE PATIENT IS ALLERGIC TO LEVAQUIN AND NYSTATIN. MEDICATIONS AT HOME: Reviewed include oxycodone, simvastatin, pantoprazole, metoprolol, and insulin. PHYSICAL EXAMINATION: GENERAL: The patient is seen in bed. VITAL SIGNS: Temperature of 97, blood pressure is 130/60, respiratory rate of 20, and heart rate of 91, was up to 98. HEENT: Unremarkable. NECK: Supple. LUNGS: Decreased breath sounds. HEART: Normal S1 and S2. ABDOMEN: Soft and nontender. LABORATORY DATA: Reveals a white count of 16,300, hemoglobin of 8, and platelets of 335. Chemistries reveal a BUN of 47 and creatinine of 2.4. Urinalysis is noted. Chest x-ray, dense consolidation, volume loss in the right, and creatinine is changed from 1.5 to 2.4. ASSESSMENT AND PLAN: This is a 57-year-old female with chronic obstructive pulmonary disease, breast cancer, anxiety, kidney disease, polysubstance abuse, diabetes mellitus, depression, history of hernia, and history of section, admitted now with severe sepsis secondary to healthcare-associated pneumonia with acute kidney injury on top of chronic kidney injury and we will treat the patient with meropenem and doxycycline. I will order a blood culture, serum culture, sputum cultures, methicillin-resistant Staphylococcus aureus screen, procalcitonin, and Legionella. We will treat the patient with Maxipime and doxycycline, pending initial culture results and workup results. I will make further recommendations upon availability of initial results. We will make further recommendations upon the initial results and we will follow closely with you. Of note, the patient's QTc of 462. We will follow with you. Prasanth Malcolm MD
[2018-07-13 07:40] LABS: ALBUMIN 3.5 g/dL (3.0-4.8); CALCIUM 8.4 mg/dL (8.4-10.5)
[2018-07-13] MEDS: Albuterol-Ipratrop 3 mg / 0.5 (3 ml) UD IH SCH ×3 (07:47→19:58)
[2018-07-13] MEDS: Arformoterol 15 mcg/2 ml Inh Sol IH SCH ×2 (07:47→19:58)
[2018-07-13] MEDS: Budesonide 0.25 mg/2 ml Inhal Susp UD IH SCH ×2 (07:47→19:59)
[2018-07-13] MEDS: Insulin Lispro (humaLOG) LOW Coverage SC SCH ×2 (09:05→22:00)
[2018-07-13] MEDS ORDERED: Permethrin 5% Cream(60 gm) TOP ONE (09:31)
[2018-07-13] MEDS: Pantoprazole 40 mg EC Tab PO SCH (10:00)
[2018-07-13] MEDS ORDERED: Azithromycin 250 MG in Sodium Chloride 0.9% 250 ML IVPB SCH (10:00)
[2018-07-13] MEDS: Sodium Chloride 0.9% 1,000 ML IV SCH (10:18)
--- NOTE | 2018-07-13 10:32 | CP.PCM.PN ---
Subjective - Date & Time of Evaluation Date of Evaluation: 07/13/18 Time of Evaluation: 10:32 - Subjective Subjective: PGY-[address] Hawkins, Rob Pt in isolation for bed bugs. Mentation much improves. Breathing better, on 4L NC Objective - Vital Signs/Intake and Output Vital Signs (last 24 hours): Temp Pulse Resp BP Pulse Ox 98.8 F 100 H 18 111/45 L 98 07/13/18 00:01 07/13/18 09:04 07/13/18 00:01 07/13/18 09:04 07/13/18 00:01 Intake and Output: 07/13/18 07/13/18 06:59 18:59 Intake Total 780 Output Total 3 Balance 777 - Medications Medications: Current Medications Albuterol/Ipratropium (Duoneb 3 Mg/0.5 Mg (3 Ml) Ud) 3 ml IH Q2H PRN PRN Reason: Shortness of Breath Albuterol/Ipratropium (Duoneb 3 Mg/0.5 Mg (3 Ml) Ud) 3 ml IH [id number] [facility] Last Admin: 07/13/18 07:47 Dose: 3 ml Alprazolam (Xanax) 0.5 mg PO QID PRN; Protocol PRN Reason: Anxiety Last Admin: 07/13/18 09:06 Dose: 0.5 mg Arformoterol Tartrate (Brovana) 15 mcg IH [id number] [facility] Last Admin: 07/13/18 07:47 Dose: 15 mcg Aspirin (Ecotrin) 81 mg PO DAILY [facility] Last Admin: 07/13/18 09:04 Dose: 81 mg Atorvastatin Calcium (Lipitor) 20 mg PO HS [facility] Budesonide (Pulmicort Respules) 0.25 mg IH [id number] [facility] Last Admin: 07/13/18 07:47 Dose: 0.25 mg Dextrose (Dextrose 50% Inj) 0 ml IV STAT PRN; Protocol PRN Reason: Hypoglycemia Protocol Dextrose (Dextrose 5% In Water 1000 Ml) 1,000 mls @ 0 mls/hr IV .Q0M PRN; Protocol PRN Reason: Hypoglycemia Protocol Doxycycline Hyclate 100 mg/ (Sodium Chloride) 100 mls @ 100 mls/hr IVPB Q12 [facility]; Protocol Stop: 07/21/18 22:01 Last Admin: 07/13/18 10:16 Dose: 100 mls/hr Cefepime HCl (Maxipime 1gm) 1 gm in 100 mls @ 100 mls/hr IVPB Q24H [facility]; Protocol Stop: 07/21/18 17:16 Last Admin: 07/12/18 17:29 Dose: 100 mls/hr Insulin Human Lispro (Humalog Low) 0 units SC ACHS [facility]; Protocol Last Admin: 07/13/18 09:05 Dose: 2 unit Methylprednisolone (Solu-Medrol) 40 mg IVP Q8H [facility] Last Admin: 07/13/18 09:03 Dose: 40 mg Metoprolol Tartrate (Lopressor) 25 mg PO BID [facility] Last Admin: 07/13/18 09:04 Dose: 25 mg Nicotine (Nicoderm Cq) 1 patch TD DAILY [facility] Last Admin: 07/13/18 09:02 Dose: 1 patch Ondansetron HCl (Zofran Inj) 4 mg IVP Q6H PRN PRN Reason: Nausea/Vomiting Oxycodone/Acetaminophen (Percocet 5/325 Mg Tab) 1 tab PO QID PRN PRN Reason: Pain, severe (8-10) Stop: 07/16/18 10:01 Last Admin: 07/12/18 23:34 Dose: 1 tab Pantoprazole Sodium (Protonix Ec Tab) 40 mg PO 0600 [facility] Paroxetine HCl (Paxil) 5 mg PO HS [facility] - Labs Labs: 07/13/18 07:10 07/13/18 07:10 - Constitutional Appears: No Acute Distress - Head Exam Head Exam: ATRAUMATIC, NORMAL INSPECTION, NORMOCEPHALIC - Eye Exam Eye Exam: EOMI, Normal appearance, PERRL. absent: Scleral icterus Pupil Exam: NORMAL ACCOMODATION - ENT Exam ENT Exam: Mucous Membranes Moist - Neck Exam Additional comments: supple - Respiratory Exam Respiratory Exam: Clear to Ausculation Bilateral, NORMAL BREATHING PATTERN. absent: Accessory Muscle Use, Decreased Breath Sounds, Rhonchi, Wheezes, Stridor - Cardiovascular Exam Cardiovascular Exam: REGULAR RHYTHM, +S1, +S2 - GI/Abdominal Exam GI & Abdominal Exam: Soft, Normal Bowel Sounds. absent: Tenderness - Extremities Exam Extremities Exam: absent: Calf Tenderness, Pedal Edema - Back Exam Back Exam: absent: CVA tenderness (L), CVA tenderness (R) - Neurological Exam Neurological Exam: Alert, Awake, Oriented x3 - Psychiatric Exam Psychiatric exam: Normal Affect, Normal Mood - Skin Skin Exam: Dry, Warm Assessment and Plan - Assessment and Plan (Free Text) Plan: Ms Randolph, 57F, active smoker 3 ppd x 40 years, chronic COPD on 3L o2 home, Recurrent R pleural effusion and hx breast ca, was brought in by EMS for AMS and hypoglycemia 40 in the field. She had decreased appetite recently. She has hx breast ca s/p mastectomy, chemo, recurrent R pleural effusion. EKG normal. CXR on admissions: R lobar atelectaisis, r/o lung ca. Head CT normal. She is on- bipap for acute on chronic respiratory failure and respiratory acidosis. She may have DAHLIA on CKD 3/4, managed per primary/nephro Hypoglycemia - resolved Accelearated hyperglycemia due to steroid IV - L188, D 183, HS 341, AM 224 Decreased appetite A1C 8.7, TSH normal (Apr 2018) - Add 30 Levemir HS, standing lispro 12 actid, ISSS-low starting BG>300 - carb consist diet - Home regimen: 30 Levemir only s/r/d/w Dr Hawkins
[2018-07-13 10:45] LABS: HEMOGLOBIN 7.5 g/dL (12.0-16.0); MEAN CELL VOLUME 91.5 fl (80.0-105.0); MEAN CORPUSCULAR HEMOGLOBIN 27.8 pg (25.0-35.0); MEAN CORPUSCULAR HGB CONC 30.4 g/dl (31.0-37.0); MEAN PLATELET VOLUME 9.7 fl (7.0-11.0); RBC 2.7 10^6/uL (3.5-6.1); RED CELL DISTRIBUTION WIDTH 15.5 % (11.5-14.5); WHITE BLOOD COUNT 11.1 10^3/uL (4.5-11.0)
--- NOTE | 2018-07-13 13:07 | CP.PCM.PN ---
<Emma Carbajal - Last Filed: 07/13/18 13:07> Subjective - Date & Time of Evaluation Date of Evaluation: 07/13/18 Time of Evaluation: 09:00 - Subjective Subjective: INTERNAL MEDICINE PROGRESS NOTE FOR DR. PRABHJOT Carbajal PGY1 Pt seen and examined at bedside this am. She is sitting up in bedside watching tv. Bedbug precautions in place. Pt reports she feels better than yesterday however feels fatigued. She otherwise denies 12 point ROS Objective - Vital Signs/Intake and Output Vital Signs (last 24 hours): Temp Pulse Resp BP Pulse Ox 98.8 F 100 H 18 111/45 L 98 07/13/18 00:01 07/13/18 09:04 07/13/18 00:01 07/13/18 09:04 07/13/18 00:01 Intake and Output: 07/13/18 07/13/18 06:59 18:59 Intake Total 780 Output Total 3 Balance 777 - Medications Medications: Current Medications Albuterol/Ipratropium (Duoneb 3 Mg/0.5 Mg (3 Ml) Ud) 3 ml IH Q2H PRN PRN Reason: Shortness of Breath Albuterol/Ipratropium (Duoneb 3 Mg/0.5 Mg (3 Ml) Ud) 3 ml IH [id number] [facility] Last Admin: 07/13/18 07:47 Dose: 3 ml Alprazolam (Xanax) 0.5 mg PO QID PRN; Protocol PRN Reason: Anxiety Last Admin: 07/13/18 09:06 Dose: 0.5 mg Arformoterol Tartrate (Brovana) 15 mcg IH [id number] [facility] Last Admin: 07/13/18 07:47 Dose: 15 mcg Aspirin (Ecotrin) 81 mg PO DAILY [facility] Last Admin: 07/13/18 09:04 Dose: 81 mg Atorvastatin Calcium (Lipitor) 20 mg PO [facility] Budesonide (Pulmicort Respules) 0.25 mg IH [id number] [facility] Last Admin: 07/13/18 07:47 Dose: 0.25 mg Dextrose (Dextrose 50% Inj) 0 ml IV STAT PRN; Protocol PRN Reason: Hypoglycemia Protocol Dextrose (Dextrose 5% In Water 1000 Ml) 1,000 mls @ 0 mls/hr IV .Q0M PRN; Protocol PRN Reason: Hypoglycemia Protocol Doxycycline Hyclate 100 mg/ (Sodium Chloride) 100 mls @ 100 mls/hr IVPB Q12 [facility]; Protocol Stop: 07/21/18 22:01 Last Admin: 07/13/18 10:16 Dose: 100 mls/hr Cefepime HCl (Maxipime 1gm) 1 gm in 100 mls @ 100 mls/hr IVPB Q24H [facility]; Protocol Stop: 07/21/18 17:16 Last Admin: 07/12/18 17:29 Dose: 100 mls/hr Insulin Human Lispro (Humalog Low) 0 units SC ACHS [facility]; Protocol Methylprednisolone (Solu-Medrol) 40 mg IVP Q8H [facility] Last Admin: 07/13/18 09:03 Dose: 40 mg Metoprolol Tartrate (Lopressor) 25 mg PO BID [facility] Last Admin: 07/13/18 09:04 Dose: 25 mg Nicotine (Nicoderm Cq) 1 patch TD DAILY [facility] Last Admin: 07/13/18 09:02 Dose: 1 patch Ondansetron HCl (Zofran Inj) 4 mg IVP Q6H PRN PRN Reason: Nausea/Vomiting Oxycodone/Acetaminophen (Percocet 5/325 Mg Tab) 1 tab PO QID PRN PRN Reason: Pain, severe (8-10) Stop: 07/16/18 10:01 Last Admin: 07/12/18 23:34 Dose: 1 tab Pantoprazole Sodium (Protonix Ec Tab) 40 mg PO 0600 [facility] Paroxetine HCl (Paxil) 5 mg PO HS [facility] - Labs Labs: 07/13/18 10:20 07/13/18 07:10 - Constitutional Appears: No Acute Distress, Chronically Ill - Head Exam Head Exam: ATRAUMATIC, NORMAL INSPECTION - Eye Exam Eye Exam: EOMI, Normal appearance, PERRL Pupil Exam: NORMAL ACCOMODATION - ENT Exam ENT Exam: Mucous Membranes Dry - Neck Exam Neck exam: Positive for: Normal Inspection - Respiratory Exam Respiratory Exam: Clear to Auscultation Bilateral. absent: Rales, Rhonchi, Wheezes, Respiratory Distress Additional comments: - Cardiovascular Exam Cardiovascular Exam: REGULAR RHYTHM, +S1, +S2. absent: Bradycardia, Tachycardia, Gallop, Rubs, Systolic Murmur - GI/Abdominal Exam GI & Abdominal Exam: Normal Bowel Sounds, Soft. absent: Distended, Firm, Tenderness - Extremities Exam Extremities exam: Positive for: normal inspection. Negative for: pedal edema - Neurological Exam Additional comments: AxO X 3. No focal deficits. - Skin Skin Exam: Dry, Normal Color, Warm Additional comments: Abrasions noted on bilateral upper & lower extremities. No burrowing in interdigital web spaces Assessment and Plan - Assessment and Plan (Free Text) Assessment: 57 year old female, whose past medical history includes breast cancer, severe COPD, asthma, anxiety, pleural effusions, and CKD, who presents to the ED brought in by EMS for hypoglycemia being treated for COPD exacerbation Plan: Acute on Chronic COPD Exacerbation - Likely 2/2 continued tobacco use vs RLL pneumonia - Procalcitonin: 1.83 CXR 07/12: "Volume loss right lung & dense lower lobe consolidation consistent with lobar atelectasis" EKG: NSR at [address]-segment elevations or depressions, no T-wave inversions, normal intervals. CT Head 07/12: No acute intracranial abnormalities. No significant findings to account for the clinical presentation. No significant interval change compared to the prior examination - Continue doxycycline/cefepime per ID recs - Continue budesonide, aformoterol, duoneb, Solumedrol 40Q8 - Pulmonology following Hypoglycemia - Resolved - Accuchecks Q2HX12 - Endocrinology consulted, Dr. Hawkins Hyperkalemia - Overnight K: 5.7 - Received albuterol, calcium gluconate overnight DM-2 - Continue levemir 30SC HS, Lispro 12u ACTID, ISS - Endocrine following DAHLIA on CKD - BUN/Cr: 56/2.6 - Likely 2/2 diabetic nephropathy - Nephrology following Hyperlipidemia - continue Lipitor 20mg PO HS Hypertension - Continue home Lopressor 25mg PO BID Tobacco use disorder - continue nicotine patch Anxiety, depression - Continue home Xanax 0.5mg PO QID PRN, Paxil 5mg PO HS DVT/GI PPx: Hep/Protonix Case reviewed with attending physician, Dr. Prabhjot Carbajal PGY1 <Whit Rick - Last Filed: 07/13/18 16:56> Objective - Vital Signs/Intake and Output Vital Signs (last 24 hours): Temp Pulse Resp BP Pulse Ox 98.6 F 99 H 20 111/56 L 98 07/13/18 16:04 07/13/18 16:04 07/13/18 16:04 07/13/18 16:04 07/13/18 00:01 Intake and Output: 07/13/18 07/13/18 06:59 18:59 Intake Total 780 Output Total 3 Balance 777 - Medications Medications: Current Medications Albuterol/Ipratropium (Duoneb 3 Mg/0.5 Mg (3 Ml) Ud) 3 ml IH Q2H PRN PRN Reason: Shortness of Breath Albuterol/Ipratropium (Duoneb 3 Mg/0.5 Mg (3 Ml) Ud) 3 ml IH [id number] [facility] Last Admin: 07/13/18 13:25 Dose: 3 ml Alprazolam (Xanax) 0.5 mg PO QID PRN; Protocol PRN Reason: Anxiety Last Admin: 07/13/18 14:25 Dose: 0.5 mg Arformoterol Tartrate (Brovana) 15 mcg IH [id number] [facility] Last Admin: 07/13/18 07:47 Dose: 15 mcg Aspirin (Ecotrin) 81 mg PO DAILY [facility] Last Admin: 07/13/18 09:04 Dose: 81 mg Atorvastatin Calcium (Lipitor) 20 mg PO HS [facility] Budesonide (Pulmicort Respules) 0.25 mg IH [id number] [facility] Last Admin: 07/13/18 07:47 Dose: 0.25 mg Dextrose (Dextrose 50% Inj) 0 ml IV STAT PRN; Protocol PRN Reason: Hypoglycemia Protocol Heparin Sodium (Porcine) (Heparin) 5,000 units SC Q8 [facility]; Protocol Last Admin: 07/13/18 14:24 Dose: 5,000 units Dextrose (Dextrose 5% In Water 1000 Ml) 1,000 mls @ 0 mls/hr IV .Q0M PRN; Protocol PRN Reason: Hypoglycemia Protocol Doxycycline Hyclate 100 mg/ (Sodium Chloride) 100 mls @ 100 mls/hr IVPB Q12 [facility]; Protocol Stop: 07/21/18 22:01 Last Admin: 07/13/18 10:16 Dose: 100 mls/hr Cefepime HCl (Maxipime 1gm) 1 gm in 100 mls @ 100 mls/hr IVPB Q24H [facility]; Protocol Stop: 07/21/18 17:16 Last Admin: 07/12/18 17:29 Dose: 100 mls/hr Insulin Detemir (Levemir) 30 unit SC HS [facility] Insulin Human Lispro (Humalog Low) 0 units SC ACHS [facility]; Protocol Insulin Human Lispro (Humalog) 12 units SC ACTID [facility] Methylprednisolone (Solu-Medrol) 40 mg IVP Q8H [facility] Last Admin: 07/13/18 09:03 Dose: 40 mg Metoprolol Tartrate (Lopressor) 25 mg PO BID [facility] Last Admin: 07/13/18 09:04 Dose: 25 mg Nicotine (Nicoderm Cq) 1 patch TD DAILY [facility] Last Admin: 07/13/18 09:02 Dose: 1 patch Ondansetron HCl (Zofran Inj) 4 mg IVP Q6H PRN PRN Reason: Nausea/Vomiting Pantoprazole Sodium (Protonix Ec Tab) 40 mg PO 0600 [facility] Paroxetine HCl (Paxil) 5 mg PO HS [facility] - Labs Labs: 07/13/18 10:20 07/13/18 07:10 Attending/Attestation - Attestation I have personally seen and examined this patient.: Yes I have fully participated in the care of the patient.: Yes I have reviewed all pertinent clinical information, including history, physical exam and plan: Yes Notes (Text): Patient seen and examined by me with resident at approximately at 9:20AM on 07/13/18. Case including HPI, physical exam, and assessment and plan discussed with resident. Agree with above with following additions/corrections. Patient is a 57 year old female with past medical history significant for severe COPD, asthma, tobacco abuse, pleural effusions, CKD, pneumonia, hypertension, hyperlipidemia, breast cancer, anemia, depression and anxiety, and recurrent UTIs that presented to the emergency room for hypoglycemia. Patient states she feels better today. Feels that she caught a cold from her daughter. Admits to having bed bugs. Shortness of breath improved. States she is coughing up "green phlegm." She denies any chest pain or palpitations. No nausea or vomiting. No abdominal pain. No fevers or chills. No dysuria. Physical exam: General: Awake and alert sitting up in bed in no acute distress HEENT: Normocephalic, atraumatic. Extraocular muscles intact, pupils equal and reactive, no scleral icterus. Oropharynx is pink and moist. No pharyngeal erythema or exudate appreciated. Neck is supple. Cardiovascular: Regular rhythm. Normal S1 and S2. No murmurs, rubs, or gallops appreciated Pulmonary: Normal respiratory effort. Decreased breath sounds. No rhonchi, rales, or wheezing appreciated. Gastrointestinal: Soft, nondistended. Nontender. Positive bowel sounds all 4 quadrants. No guarding. Musculoskeletal: Moves all extremities. No calf tenderness. No edema appreciated Central nervous system: Awake and alert. Dermatologic: Skin warm and dry. Positive bug bites, excoriations, some scabs bilateral forearms, hands, and entire legs. Assessment and plan: Patient is a 57 year old female with past medical history significant for chronic respiratory failure secondary severe COPD on home oxgen, asthma, tobacco abuse, pleural effusions, CKD, pneumonia, hypertension, hyperlipidemia, breast cancer, anemia, depression and anxiety, and recurrent UTIs that presented to the emergency room for hypoglycemia. 1. Acute COPD exacerbation. Pulmonary recommendations appreciated. Continue nebulizer treatments. Continue Pulmicort and Brovana. Continue solumedrol. Continue O2 via nasal cannula. Patient counseled at length on tobacco cessation. Patient is on home oxygen. 2. Sepsis . Possible community acquired pneumonia. Chest xray per radiologist showed volume loss right lung and dense lower lobe consolidation consistent with lobar atelectasis. Procalcitonin 1.83. Initial leukocytosis resolved. WBC today 11.1, may be secondary to steroids. Afebrile. Continue Doxycycline and Cefepime. Blood cultures with no growth. Urine culture with no growth. 3. Hypoglycemia. Resolved. Endocrinology team following, recommendations appreciated. Continue to monitor accuchecks. 4. Acute kidney injury on Chronic Kidney disease. [employer] recommendations appreciated. S/P IV fluids. Creatinine stable 5. Hyperkalemia. S/P albuterol and calcium gluconate. Resolved. Continue to monitor. 6. Anemia. Likely secondary to malignancy and chronic disease. Patient being transfused 1 units PRBCs. Hem/onc recommendations appreciated. Continue to monitor CBC. 7. DM2. Now with hyperglycemia. Likely secondary to steroids. Continue insulin sliding scale. Continue insulin per endocrinology team. Continue to monitor accuchecks. 8. Essential hypertension. Continue Metoporolol 9. Hyperlipidemia. Continue lipitor. 10. History of breast cancer. Patient refused chemo and surgery post one cycle of chemo. Hem/onc following, recommendations appreciated. 11. Depression and Anxiety. Continue Paxil 5 mg at bedtime. Continue Xanax as needed. 12. Tobacco abuse. Patient was counseled at length on tobacco cessation. Continue with nicotine patch. 13. Bug bites. Has bed bugs at home. On isolation. 14. GI/DVT prophylaxis. Protonix/heparin 15. Patient is DNR/DNI. Palliative care recommendations appreciated. Case was discussed in detail with the patient regarding current diagnosis and treatment plan.All questions answered.
--- NOTE | 2018-07-13 13:11 | CP.PCM.CON ---
History of Present Illness - History of Present Illness History of Present Illness: Palliative consult requested by Dr Tommy Rick Reason: Goals of care This is a 57 year old female with history of breast cancer, severe COPD, asthma, anxiety, pleural effusions, and CKD, who was brought ot ED by EMS with AMS and hypoglycemia. She was lethargic and is refusing to answer questions at this time. Patient was given Glucagon in the field with improvement in mental status. CT of head: No acute findings Chest x ray:Volume loss right lung, dense lower lobe atelectasis . PMHx: COPD, ER/OR/Her2 Maria G positive breast cancer> refused chemo/ XRT, DM, CKD,HTN, anemia, anxiety, substance abuse/ overdose, UTI PSHx:mastectomy, bladder surgery, spinal surgery Social History: Current smoker( 40 pck yr), substance abuse. Lives with family Family History : CAD, DM Advance Care Planning: The patient has a POLST, she is full code. Review of Systems:As per HPI, denies other complaints,12 point ROS negative Past Patient History - Infectious Disease Hx of Infectious Diseases: None - Tetanus Immunizations Tetanus Immunization: Unknown - Past Medical History & Family History Past Medical History?: Yes - Past Social History Smoking Status: Current Some Days Smoker - CARDIAC Hx Pacemaker: No - PULMONARY Hx Respiratory Disorders: Yes Hx Asthma: Yes Hx Chronic Obstructive Pulmonary Disease (COPD): Yes - NEUROLOGICAL Hx Neurological Disorder: Yes - HEENT Hx HEENT Problems: Yes Hx Cataracts: Yes - RENAL Hx Chronic Kidney Disease: Yes (BLADDER TUMOR) - ENDOCRINE/METABOLIC Hx Endocrine Disorders: Yes Hx Diabetes Mellitus Type 2: Yes - HEMATOLOGICAL/ONCOLOGICAL Hx Blood Disorders: Yes Hx Blood Transfusions: Yes Hx Blood Transfusion Reaction: No Hx Cancer: Yes (breast) Hx Chemotherapy: Yes - INTEGUMENTARY Hx Dermatological Problems: Yes - MUSCULOSKELETAL/RHEUMATOLOGICAL Hx Musculoskeletal Disorders: Yes - GASTROINTESTINAL Hx Gastrointestinal Disorders: Yes (INGUINAL HERNIA REPAIR) - GENITOURINARY/GYNECOLOGICAL Hx Genitourinary Disorders: No - PSYCHIATRIC Hx Psychophysiologic Disorder: Yes Hx Anxiety: Yes Hx Emotional Abuse: No Hx Physical Abuse: No Hx Substance Use: No (UNKNOWN) - SURGICAL HISTORY Hx Surgeries: Yes (reports had breast surgey many years ago that why port) - ANESTHESIA Hx Anesthesia Reactions: No Hx Malignant Hyperthermia: No Meds Allergies/Adverse Reactions: Allergies Allergy/AdvReac Type Severity Reaction Status Date / Time levofloxacin [From Levaquin] Allergy SHORTNESS Verified 04/11/18 14:31 OF BREATH;PARANOID nystatin Allergy SWELLING Verified 04/11/18 14:31 - Medications Medications: Current Medications Albuterol/Ipratropium (Duoneb 3 Mg/0.5 Mg (3 Ml) Ud) 3 ml IH Q2H PRN PRN Reason: Shortness of Breath Albuterol/Ipratropium (Duoneb 3 Mg/0.5 Mg (3 Ml) Ud) 3 ml IH [id number] [facility] Last Admin: 07/13/18 07:47 Dose: 3 ml Alprazolam (Xanax) 0.5 mg PO QID PRN; Protocol PRN Reason: Anxiety Last Admin: 07/13/18 09:06 Dose: 0.5 mg Arformoterol Tartrate (Brovana) 15 mcg IH [id number] [facility] Last Admin: 07/13/18 07:47 Dose: 15 mcg Aspirin (Ecotrin) 81 mg PO DAILY [facility] Last Admin: 07/13/18 09:04 Dose: 81 mg Atorvastatin Calcium (Lipitor) 20 mg PO HS [facility] Budesonide (Pulmicort Respules) 0.25 mg IH [id number] [facility] Last Admin: 07/13/18 07:47 Dose: 0.25 mg Dextrose (Dextrose 50% Inj) 0 ml IV STAT PRN; Protocol PRN Reason: Hypoglycemia Protocol Dextrose (Dextrose 5% In Water 1000 Ml) 1,000 mls @ 0 mls/hr IV .Q0M PRN; Protocol PRN Reason: Hypoglycemia Protocol Doxycycline Hyclate 100 mg/ (Sodium Chloride) 100 mls @ 100 mls/hr IVPB Q12 [facility]; Protocol Stop: 07/21/18 22:01 Last Admin: 07/13/18 10:16 Dose: 100 mls/hr Cefepime HCl (Maxipime 1gm) 1 gm in 100 mls @ 100 mls/hr IVPB Q24H [facility]; Protocol Stop: 07/21/18 17:16 Last Admin: 07/12/18 17:29 Dose: 100 mls/hr Insulin Human Lispro (Humalog Low) 0 units SC ACHS [facility]; Protocol Methylprednisolone (Solu-Medrol) 40 mg IVP Q8H [facility] Last Admin: 07/13/18 09:03 Dose: 40 mg Metoprolol Tartrate (Lopressor) 25 mg PO BID [facility] Last Admin: 07/13/18 09:04 Dose: 25 mg Nicotine (Nicoderm Cq) 1 patch TD DAILY [facility] Last Admin: 07/13/18 09:02 Dose: 1 patch Ondansetron HCl (Zofran Inj) 4 mg IVP Q6H PRN PRN Reason: Nausea/Vomiting Oxycodone/Acetaminophen (Percocet 5/325 Mg Tab) 1 tab PO QID PRN PRN Reason: Pain, severe (8-10) Stop: 07/16/18 10:01 Last Admin: 07/12/18 23:34 Dose: 1 tab Pantoprazole Sodium (Protonix Ec Tab) 40 mg PO 0600 [facility] Paroxetine HCl (Paxil) 5 mg PO HS [facility] Physical Exam - Constitutional Appears: Older Than Stated Age, Chronically Ill - Eye Exam Eye Exam: Normal appearance, PERRL - ENT Exam ENT Exam: Mucous Membranes Moist - Neck Exam Neck exam: Positive for: Normal Inspection - Respiratory Exam Respiratory Exam: Decreased Breath Sounds, Rhonchi, NORMAL BREATHING PATTERN - Cardiovascular Exam Cardiovascular Exam: REGULAR RHYTHM, +S1, +S2 - GI/Abdominal Exam GI & Abdominal Exam: Normal Bowel Sounds, Soft - Extremities Exam Extremities exam: Positive for: pedal edema - Neurological Exam Neurological exam: Alert, Oriented x3 - Skin Skin Exam: Dry, Pallor - Additional Findings Additional findings: Palliative performance scale rating 40 Results - Vital Signs Recent Vital Signs: Last Vital Signs Temp 98.8 F 07/13/18 00:01 Pulse 100 H 07/13/18 09:04 Resp 18 07/13/18 00:01 BP 111/45 L 07/13/18 09:04 Pulse Ox 98 07/13/18 00:01 - Labs Result Diagrams: 07/13/18 10:20 07/13/18 07:10 Labs: Laboratory Results - last 24 hr 07/12/18 07/12/18 07/12/18 09:15 09:15 12:10 WBC RBC Hgb Hct MCV MCH MCHC RDW Plt Count MPV Neut % (Auto) Lymph % (Auto) Millard % (Auto) Eos % (Auto) Baso % (Auto) Lymph # (Auto) Millard # (Auto) Eos # (Auto) Baso # (Auto) Absolute Neuts (auto) Sodium Potassium Chloride Carbon Dioxide Anion Gap BUN Creatinine Est GFR ( Amer) Est GFR (Non-Af Amer) POC Glucose (mg/dL) 93 Random Glucose Calcium Phosphorus Magnesium Ferritin 104.0 Total Bilirubin AST ALT Alkaline Phosphatase Total Protein Albumin Globulin Albumin/Globulin Ratio Procalcitonin 1.83 H Blood Type Antibody Screen Crossmatch BBK History Checked 07/12/18 07/12/18 07/12/18 16:56 17:03 17:28 WBC RBC Hgb Hct MCV MCH MCHC RDW Plt Count MPV Neut % (Auto) Lymph % (Auto) Millard % (Auto) Eos % (Auto) Baso % (Auto) Lymph # (Auto) Millard # (Auto) Eos # (Auto) Baso # (Auto) Absolute Neuts (auto) Sodium 140 Potassium 5.7 H* Chloride 109 H Carbon Dioxide 23 Anion Gap 14 BUN 48 H Creatinine 2.6 H Est GFR ( Amer) 23 Est GFR (Non-Af Amer) 19 POC Glucose (mg/dL) 188 H 183 H Random Glucose 187 H Calcium 8.3 L Phosphorus Magnesium Ferritin Total Bilirubin AST ALT Alkaline Phosphatase Total Protein Albumin Globulin Albumin/Globulin Ratio Procalcitonin Blood Type Antibody Screen Crossmatch BBK History Checked 07/12/18 07/13/18 07/13/18 22:01 07:10 07:10 WBC 8.3 D RBC 2.75 L Hgb 7.7 L Hct 25.2 L MCV 91.6 D MCH 28.0 MCHC 30.6 L RDW 15.5 H Plt Count 296 MPV 8.8 Neut % (Auto) 89.5 H Lymph % (Auto) 7.7 L Millard % (Auto) 2.8 Eos % (Auto) 0.0 L Baso % (Auto) 0.0 Lymph # (Auto) 0.6 L Millard # (Auto) 0.2 Eos # (Auto) 0.0 Baso # (Auto) 0.00 Absolute Neuts (auto) 7.39 H Sodium 141 Potassium 4.7 Chloride 108 H Carbon Dioxide 21 Anion Gap 17 BUN 56 H Creatinine 2.6 H Est GFR ( Amer) 23 Est GFR (Non-Af Amer) 19 POC Glucose (mg/dL) 341 H Random Glucose 224 H Calcium 8.4 Phosphorus 7.3 H Magnesium 1.7 Ferritin Total Bilirubin 0.3 AST 15 ALT 7 Alkaline Phosphatase 53 Total Protein 6.9 Albumin 3.5 Globulin 3.4 Albumin/Globulin Ratio 1.0 L Procalcitonin Blood Type Antibody Screen Crossmatch BBK History Checked 07/13/18 07/13/18 07/13/18 08:44 10:20 10:20 WBC 11.1 H D RBC 2.70 L Hgb 7.5 L Hct 24.7 L MCV 91.5 MCH 27.8 MCHC 30.4 L RDW 15.5 H Plt Count 327 MPV 9.7 Neut % (Auto) Lymph % (Auto) Millard % (Auto) Eos % (Auto) Baso % (Auto) Lymph # (Auto) Millard # (Auto) Eos # (Auto) Baso # (Auto) Absolute Neuts (auto) Sodium Potassium Chloride Carbon Dioxide Anion Gap BUN Creatinine Est GFR ( Amer) Est GFR (Non-Af Amer) POC Glucose (mg/dL) 223 H Random Glucose Calcium Phosphorus Magnesium Ferritin Total Bilirubin AST ALT Alkaline Phosphatase Total Protein Albumin Globulin Albumin/Globulin Ratio Procalcitonin Blood Type B POSITIVE Antibody Screen Negative Crossmatch See Detail BBK History Checked Patient has bt 07/13/18 11:55 WBC RBC Hgb Hct MCV MCH MCHC RDW Plt Count MPV Neut % (Auto) Lymph % (Auto) Millard % (Auto) Eos % (Auto) Baso % (Auto) Lymph # (Auto) Millard # (Auto) Eos # (Auto) Baso # (Auto) Absolute Neuts (auto) Sodium Potassium Chloride Carbon Dioxide Anion Gap BUN Creatinine Est GFR ( Amer) Est GFR (Non-Af Amer) POC Glucose (mg/dL) 226 H Random Glucose Calcium Phosphorus Magnesium Ferritin Total Bilirubin AST ALT Alkaline Phosphatase Total Protein Albumin Globulin Albumin/Globulin Ratio Procalcitonin Blood Type Antibody Screen Crossmatch BBK History Checked Assessment & Plan - Assessment and Plan (Free Text) Assessment: This is a 57 year old female with history of COPD, breast cancer, CAF, HTN, DM CKD who is admitted with hypoglycemia/AMS which has since hyperkalcemia and leukocytosis which resolved. The patient is alert and oriented to place and self. She is known to me from prevails admissions. She remembers what happened to her and knows why she is hospitalized. She has no complaints, states she would like to go home. I explained once medically cleared she could do so We discussed her wishes regard ing resuscitation. The patient has and existing POLST which was done on 04/07. She affirms that she wants to be full code, however she does not want to have her life prolonged if her condition remains irreversible. She does not want to appoint anyone as her health care surrogate. She does not want her children to have to make any difficult decisions, which is why she did POLST. Time spent in goals of care discussion with patient, 30 minutes Plan: Goals of care advance care planning ID following, recs reviewed, neely cultures negative, continue Doxycycline and Cefepime. COPD:Continue Duonebs,Pulmicort. Nicoderm, Smoking cessation DM: Fingertsicks ACHS, Lispro, Levemir, Humalog as ordered. Continue Lopressor, Lipitor, ASA, DVT prophylaxis
--- NOTE | 2018-07-13 14:31 | PN ---
DATE: 07/13/2018 LOCATION: Room 260. SUBJECTIVE: This 57-year-old female presenting here with symptomatic hypoglycemia and has since then improved clinically and metabolically as noted thereof. In fact, she developed overnight hyperglycemic accelerations as expected with the intercurrent IV steroid therapy as given. She presented also with concomitant acute exacerbation of COPD and currently on IV steroid therapy as given. Her glucose values have ranged from 224 to 226 mg/dL. Her chemistries showed a BUN of 56, sodium 141, potassium 4.7, chloride 108, CO2 of 21, glucose 224 and creatinine 2.6. Her hemoglobin A1c is 8.7% which was done 2 months ago and the latest one is pending at this time. Her bedtime glucose was 341 mg/dL. ASSESSMENT: This is a 57-year-old female with uncontrolled and decompensated type 2 insulin-requiring diabetes with marked hyperglycemic accelerations related to the intercurrent intravenous steroid therapy with increased insulin resistance thereof. She also has diabetic microvascular complications of retinopathy, polyneuropathy and nephropathy with underlying chronic kidney disease. PLAN OF MANAGEMENT: We will modify her current insulin regimen and switch her over to a more physiologic basal and bolus insulin drug combination as ordered. We will start her with Levemir given as 30 units subcu at bedtime daily to start tonight. We will add Humalog given as 12 units t.i.d. before meals to start today as ordered. We will modify her coverage scale to a low-dose algorithm using Humalog insulin as given. We will obtain serial chemistries and supplement accordingly as needed. We will follow. Ernestina Hawkins MD
--- NOTE | 2018-07-13 14:57 | CARD ---
APPROVED REPORT Date of service: 07/12/2018 EKG Measurement Heart [id number] <Conclusion> Sinus tachycardia Otherwise normal ECG
[2018-07-13] MEDS: Cefepime 1gm in NS 100ml 1 GM/100 ML BAG IVPB SCH (17:07)
--- NOTE | 2018-07-13 18:47 | PN ---
DATE: 07/13/2018 This is [facility] visit on the telemetry floor. For Dr. Gleason. SUBJECTIVE: The patient is a 57-year-old female admitted via the emergency room for hypoglycemia, however, the patient was noted to have significant anemic indices of 7.5 today with the patient known to have positive findings on a recent CT scan of the chest done in April this year with an "extensive irregular soft tissue density in the left breast concerning for neoplasm with associated calcification and large left axillary lymph nodes." With this, the patient is feeling better, however, anxious for discharge, however bedbugs were noted and the patient is being treated in that respect with her room now being cleaned and sanitized with a room change imminent. With this, she is otherwise improved from her original admitting evaluation. OBJECTIVE PHYSICAL EXAMINATION: VITAL SIGNS: Temperature 98.8, pulse 100, respirations 18, blood pressure 111/45 and pulse oximetry 98%. LABORATORY DATA: White blood cell count of 11.1, hemoglobin of 7.5 with a repeat of an earlier hemoglobin today of 7.7, hematocrit of 24.7 and platelet count of 327,000. Her metabolic panel shows a BUN of 56, creatinine of 2.6 with a nonfasting glucose 223, phosphorous is 7.3. The patient's toxicology report was positive for benzodiazepines. The patient had an EKG earlier today that has not been read yet. ASSESSMENT AND PLAN: For this patient is that of symptomatic anemia, hypoglycemic episode with questionable syncope, abnormal CAT scan with suspicions for neoplastic change with previous known tissue diagnosis of invasive ductal carcinoma moderately differentiated, dated from a biopsy of 07/01/2015 for a biopsy of the left breast. It was known that the specimen was ER positive, DE negative and HER2 positive. However, the patient has not sought care since the diagnosis according to records obtained. Tumor markers done on 04/22/2018 showed a CEA value of 31.9, CA 15-3 of 18.8 with a CA 27-29 of 19 then, these will be repeated. PLAN: Transfuse one unit of packed red blood cells today after conservation of Dr. Hurd renal cisco consultant as the patient has acute renal failure along with her other diagnoses with treatment for her bedbug infestation will also preclude further evaluation at this time as this is being addressed. We will also recommend for premedication with Tylenol and Benadryl. The patient is already on steroids with Lasix to be given afterwards as per Dr. Hurd's recommendation. We will also transfuse one additional unit tomorrow as indicated. We will also recommend a consult for her anemic indices with a GI workup with Dr. Coker. We will also recommend a CT scan of the chest, no contrast, attention left breast and axilla due to the possible neoplastic changes noted on her previous scans dated in April of this year. This is a complex patient with a comprehensive medically necessary and appropriate visit carried out in excess of 60 minutes with the consultants called and nursing staff also involved in the patient's treatment plan. Juan Jose Valles MD
--- NOTE | 2018-07-13 19:43 | PN ---
DATE: 07/13/2018 SUBJECTIVE: The patient is seen sitting in bed. She is awake. She is alert. She reports her breathing is somewhat better. She complains of cough. PHYSICAL EXAMINATION GENERAL: This is a middle-aged lady sitting in bed. VITAL SIGNS: Blood pressure 111/45, heart rate 100, respiratory rate 18, temperature 98.8. HEENT: Normocephalic, atraumatic, positive pallor. NECK: Supple, no JVD. LUNGS: Bilateral rhonchi, bilateral basal rales, no asymmetry. CARDIAC: S1 and S2, regular rate and rhythm, no murmur, no rub. ABDOMEN: Obese, distended, soft, nontender, bowel sounds present. EXTREMITIES: 2+ pitting edema of the lower extremities. INTAKE AND OUTPUT: Not charted. LABORATORY DATA: WBC 11, hemoglobin 7.5, hematocrit 25, platelets 327. Sodium 141, potassium 4.7, chloride 108, CO2 of 21, BUN 56, creatinine 2.6, glucose 225, calcium 8.4, phosphorus 7.3, magnesium 1.7. Urinalysis; yellow, clear, pH 6.0, specific gravity 1.020, protein 100, blood small, leukocyte esterase moderate. Urine culture no growth. Blood culture no growth. CURRENT MEDICATIONS: Brovana, doxycycline 100 mg every 12 hours, DuoNeb, Ecotrin, insulin, Lipitor, Lopressor, cefepime 1 g, Paxil, Percocet, Protonix, Solu-Medrol, and Zofran. ASSESSMENT: 1. Acute kidney injury superimposed on chronic kidney disease, stage 3/4. 2. Hyperkalemia secondary to acute kidney injury, resolved. 3. Advanced chronic obstructive pulmonary disease with exacerbation. 4. Severe anemia. 5. Bed bugs. PLAN: 1. Okay to transfuse one unit of PRBC today, recommend Lasix 40 mg posttransfusion. 2. Avoid nephrotoxins. 3. Continue respiratory treatments and empiric antibiotics. 4. Day 1 of antibiotics for creatinine clearance about 30 mL per minute. Lula Hurd MD
[2018-07-13] MEDS: Insulin Detemir 100 units/ml Vial (Levemir) SC SCH (22:28)
[2018-07-14] MEDS: MethylPREDNISolone 40 mg Vial IVP SCH ×3 (01:45→17:59)
[2018-07-14] MEDS: Albuterol-Ipratrop 3 mg / 0.5 (3 ml) UD IH SCH ×4 (01:51→20:35)
[2018-07-14] MEDS: Pantoprazole 40 mg EC Tab PO SCH (06:51)
[2018-07-14] MEDS: Arformoterol 15 mcg/2 ml Inh Sol IH SCH ×2 (07:42→20:35)
[2018-07-14] MEDS: Budesonide 0.25 mg/2 ml Inhal Susp UD IH SCH ×2 (07:43→20:36)
--- NOTE | 2018-07-14 08:22 | PN ---
DATE: 07/14/2018 ENDOCRINOLOGY FOLLOWUP NOTE LOCATION: Room 269. SUBJECTIVE: This is a 57-year-old female with this current admission presenting with symptomatic hypoglycemia and now has improved metabolically and clinically as noted. However, she also had concomitant acute exacerbation of COPD and placed on IV steroid therapy. Currently on Solu-Medrol 40 mg IV every 8 hours as noted. Her glycemic levels overnight have ranged from 226 to 267 and 296 mg/dL. Chemistry showed a BUN of 56, sodium 141, potassium 4.7, chloride 108, CO2 of 21, glucose 224, and creatinine 2.6. ASSESSMENT AND PLAN: So, at this time, we will continue the same basal and bolus insulin regimen to allow for full dose equilibration and keep her on Humalog given as 12 units three times a day before meals as ordered. We will also continue the basal insulin given as Levemir at 30 units subcutaneously at bedtime daily as given. We will titrate incrementally as indicated to optimize metabolic control. We will follow with you. Ernestina Hawkins MD
[2018-07-14] MEDS: Insulin Lispro (humaLOG) LOW Coverage SC SCH ×4 (08:41→22:00)
[2018-07-14] MEDS: Insulin Lispro 1 UNITS/0.01 ML SC SCH ×4 (08:42→17:55)
[2018-07-14 08:56] LABS: ALB/GLOB RATIO 1.1 (1.1-1.8); ALBUMIN 3.3 g/dL (3.0-4.8); CALCIUM 7.8 mg/dL (8.4-10.5)
[2018-07-14 10:02] LABS: BASO # 0.01 K/mm3 (0.0-2.0); BASO % 0.2 % (0.0-3.0); EOS % 0.2 % (1.5-5.0); HEMOGLOBIN 7.7 g/dL (12.0-16.0); LYMPH # 0.4 (1.2-3.4); LYMPH % 7.5 % (22.0-35.0); MEAN CORPUSCULAR HEMOGLOBIN 28.8 pg (25.0-35.0); MEAN CORPUSCULAR HGB CONC 30.7 g/dl (31.0-37.0); MEAN PLATELET VOLUME 10.6 fl (7.0-11.0); MONO # 0.2 (0.1-0.6); MONO % 3.8 % (1.0-6.0); RBC 2.67 10^6/uL (3.5-6.1); RED CELL DISTRIBUTION WIDTH 16.5 % (11.5-14.5); WHITE BLOOD COUNT 4.8 10^3/uL (4.5-11.0)
--- NOTE | 2018-07-14 10:09 | CP.PCM.CON ---
<Junior Lovelace - Last Filed: 07/14/18 18:33> History of Present Illness - History of Present Illness History of Present Illness: PGY4 GI fellow consult note 57-year-old white female with a past medical history of breast cancer (currently not undergoing treatment due to patient preference), COPD (3-4 L nasal cannula O2 at baseline), asthma, anxiety, pleural effusions, CKD he was admitted on 07/11/18 with hypoglycemia, acute COPD/asthma flare. GI consult for anemia. Patient states that she knows she has a history of low blood counts. She denies any signs of overt bleeding. She states her bowel movements or typically brown in color with rare signs of black or road depending on what she she needs per her report. She is not sure about how her weight has been lately. She denies any fevers/chills, nausea/vomiting, abdominal pain. Last EGD 08/02/17: LAD esophagitis, 4 cm hiatal hernia, chronic gastritis, duodenitis no specimens collected at that time. Previous biopsies negative for H. pylori Patient is unsure whether or not she ever had a colonoscopy. 12 point systems negative as above Medical history: See above Surgical history: Mastectomy, bladder surgery, spine surgery Medications: Reviewed in chart Family history: Denied any family history of GI problems Social history: Positive tobacco abuse 40 years, denied 2, history of drug overdose Allergies: Levofloxacin [place] Past Patient History - Infectious Disease Hx of Infectious Diseases: None - Tetanus Immunizations Tetanus Immunization: Unknown - Past Medical History & Family History Past Medical History?: Yes - Past Social History Smoking Status: Current Some Days Smoker - CARDIAC Hx Pacemaker: No - PULMONARY Hx Respiratory Disorders: Yes Hx Asthma: Yes Hx Chronic Obstructive Pulmonary Disease (COPD): Yes - NEUROLOGICAL Hx Neurological Disorder: Yes - HEENT Hx HEENT Problems: Yes Hx Cataracts: Yes - RENAL Hx Chronic Kidney Disease: Yes (BLADDER TUMOR) - ENDOCRINE/METABOLIC Hx Endocrine Disorders: Yes Hx Diabetes Mellitus Type 2: Yes - HEMATOLOGICAL/ONCOLOGICAL Hx Blood Disorders: Yes Hx Blood Transfusions: Yes Hx Blood Transfusion Reaction: No Hx Cancer: Yes (breast) Hx Chemotherapy: Yes - INTEGUMENTARY Hx Dermatological Problems: Yes - MUSCULOSKELETAL/RHEUMATOLOGICAL Hx Musculoskeletal Disorders: Yes - GASTROINTESTINAL Hx Gastrointestinal Disorders: Yes (INGUINAL HERNIA REPAIR) - GENITOURINARY/GYNECOLOGICAL Hx Genitourinary Disorders: No - PSYCHIATRIC Hx Psychophysiologic Disorder: Yes Hx Anxiety: Yes Hx Emotional Abuse: No Hx Physical Abuse: No Hx Substance Use: No (UNKNOWN) - SURGICAL HISTORY Hx Surgeries: Yes (reports had breast surgey many years ago that why port) - ANESTHESIA Hx Anesthesia Reactions: No Hx Malignant Hyperthermia: No Meds Allergies/Adverse Reactions: Allergies Allergy/AdvReac Type Severity Reaction Status Date / Time levofloxacin [From Levaquin] Allergy SHORTNESS Verified 04/11/18 14:31 OF BREATH;PARANOID nystatin Allergy SWELLING Verified 04/11/18 14:31 - Medications Medications: Current Medications Albuterol/Ipratropium (Duoneb 3 Mg/0.5 Mg (3 Ml) Ud) 3 ml IH Q2H PRN PRN Reason: Shortness of Breath Albuterol/Ipratropium (Duoneb 3 Mg/0.5 Mg (3 Ml) Ud) 3 ml IH [id number] [facility] Last Admin: 07/14/18 07:42 Dose: 3 ml Alprazolam (Xanax) 0.5 mg PO QID PRN; Protocol PRN Reason: Anxiety Last Admin: 07/14/18 08:43 Dose: 0.5 mg Arformoterol Tartrate (Brovana) 15 mcg IH [id number] [facility] Last Admin: 07/14/18 07:42 Dose: 15 mcg Aspirin (Ecotrin) 81 mg PO DAILY [facility] Last Admin: 07/13/18 09:04 Dose: 81 mg Atorvastatin Calcium (Lipitor) 20 mg PO HS [facility] Budesonide (Pulmicort Respules) 0.25 mg IH [id number] [facility] Last Admin: 07/14/18 07:43 Dose: 0.25 mg Dextrose (Dextrose 50% Inj) 0 ml IV STAT PRN; Protocol PRN Reason: Hypoglycemia Protocol Doxycycline Hyclate (Doryx) 100 mg PO Q12 [facility]; Protocol Stop: 07/20/18 22:01 Last Admin: 07/13/18 22:29 Dose: 100 mg Heparin Sodium (Porcine) (Heparin) 5,000 units SC Q8 [facility]; Protocol Last Admin: 07/14/18 06:50 Dose: 5,000 units Dextrose (Dextrose 5% In Water 1000 Ml) 1,000 mls @ 0 mls/hr IV .Q0M PRN; Protocol PRN Reason: Hypoglycemia Protocol Cefepime HCl (Maxipime 1gm) 1 gm in 100 mls @ 100 mls/hr IVPB Q24H [facility]; Protocol Stop: 07/21/18 17:16 Last Admin: 07/13/18 17:07 Dose: 100 mls/hr Insulin Detemir (Levemir) 30 unit SC HS [facility] Last Admin: 07/13/18 22:28 Dose: Not Given Insulin Human Lispro (Humalog Low) 0 units SC ACHS [facility]; Protocol Last Admin: 07/14/18 08:41 Dose: 2 unit Insulin Human Lispro (Humalog) 12 units SC ACTID [facility] Last Admin: 07/14/18 08:43 Dose: Not Given Methylprednisolone (Solu-Medrol) 40 mg IVP Q8H [facility] Last Admin: 07/14/18 01:45 Dose: 40 mg Metoprolol Tartrate (Lopressor) 25 mg PO BID [facility] Last Admin: 07/13/18 17:05 Dose: 25 mg Nicotine (Nicoderm Cq) 1 patch TD DAILY [facility] Last Admin: 07/13/18 09:02 Dose: 1 patch Ondansetron HCl (Zofran Inj) 4 mg IVP Q6H PRN PRN Reason: Nausea/Vomiting Pantoprazole Sodium (Protonix Ec Tab) 40 mg PO 0600 [facility] Last Admin: 07/14/18 06:51 Dose: 40 mg Paroxetine HCl (Paxil) 5 mg PO [facility] Physical Exam - Constitutional Appears: No Acute Distress, Chronically Ill - Head Exam Head Exam: ATRAUMATIC, NORMAL INSPECTION - Eye Exam Eye Exam: EOMI. absent: Scleral icterus - ENT Exam ENT Exam: Mucous Membranes Moist. absent: Mucous Membranes Dry - Respiratory Exam Respiratory Exam: Decreased Breath Sounds, NORMAL BREATHING PATTERN. absent: Accessory Muscle Use - Cardiovascular Exam Cardiovascular Exam: REGULAR RHYTHM, RRR - GI/Abdominal Exam GI & Abdominal Exam: Distended (mildly), Normal Bowel Sounds, Soft. absent: Bruit, Diminished Bowel Sounds, Firm, Guarding, Organomegaly, Pulsatile Mass, Rebound, Rigid, Tenderness - Rectal Exam Rectal Exam: Deferred - Extremities Exam Extremities exam: Negative for: normal inspection (scatters of excoriation with dry skin), pedal edema - Neurological Exam Neurological exam: Alert, Oriented x3 - Psychiatric Exam Psychiatric exam: Normal Affect, Normal Mood - Skin Skin Exam: Normal Color, Warm Additional comments: scattered areas of dry skin with excoriation Results - Vital Signs Recent Vital Signs: Last Vital Signs Temp 98.7 F 07/13/18 18:44 Pulse 94 H 07/13/18 22:00 Resp 20 07/13/18 18:44 BP 120/70 07/13/18 18:51 Pulse Ox 99 07/13/18 06:00 - Labs Result Diagrams: 07/14/18 08:27 07/14/18 08:27 Labs: Laboratory Results - last 24 hr 07/13/18 07/13/18 07/13/18 08:44 10:20 10:20 WBC 11.1 H D RBC 2.70 L Hgb 7.5 L Hct 24.7 L MCV 91.5 MCH 27.8 MCHC 30.4 L RDW 15.5 H Plt Count 327 MPV 9.7 Sodium Potassium Chloride Carbon Dioxide Anion Gap BUN Creatinine Est GFR ( Amer) Est GFR (Non-Af Amer) POC Glucose (mg/dL) 223 H Random Glucose Calcium Total Bilirubin AST ALT Alkaline Phosphatase Total Protein Albumin Globulin Albumin/Globulin Ratio Blood Type B POSITIVE Antibody Screen Negative Crossmatch See Detail BBK History Checked Patient has bt 07/13/18 07/13/18 07/13/18 11:55 16:40 21:45 WBC RBC Hgb Hct MCV MCH MCHC RDW Plt Count MPV Sodium Potassium Chloride Carbon Dioxide Anion Gap BUN Creatinine Est GFR ( Amer) Est GFR (Non-Af Amer) POC Glucose (mg/dL) 226 H 267 H 296 H Random Glucose Calcium Total Bilirubin AST ALT Alkaline Phosphatase Total Protein Albumin Globulin Albumin/Globulin Ratio Blood Type Antibody Screen Crossmatch BBK History Checked 07/14/18 07/14/18 07:40 08:27 WBC RBC Hgb Hct MCV MCH MCHC RDW Plt Count MPV Sodium 142 Potassium 4.7 Chloride 110 H Carbon Dioxide 22 Anion Gap 14 BUN 58 H Creatinine 2.4 H Est GFR ( Amer) 25 Est GFR (Non-Af Amer) 21 POC Glucose (mg/dL) 339 H Random Glucose 336 H* D Calcium 7.8 L Total Bilirubin 0.3 AST 14 ALT 10 Alkaline Phosphatase 55 Total Protein 6.3 Albumin 3.3 Globulin 3.1 Albumin/Globulin Ratio 1.1 Blood Type Antibody Screen Crossmatch BBK History Checked Assessment & Plan - Assessment and Plan (Free Text) Assessment: 49-year-old white female with a past medical history of breast cancer, COPD, anxiety, CKD admitted for hypoglycemia, DAHLIA and COPD flare. #Acute on chronic normocytic anemia: suspect multifactorial in nature related to anemia of chronic disease and the setting of breast cancer and CKD. Furthermore, patient has a history of LA-D esophagitis, gastritis and duodenitis without follow-up EGD. No signs of over GI bleeding at this time. Plan: - Obtain CT Abd+Pelvis w/PO contrast - Pt is high risk from endoscopic evaluation; will consider pending course - Cont daily PPI - Monitor labs Patient discussed with Dr. Coker. Please attestation for further recommendations/changes <Gerald Coker V - Last Filed: 07/14/18 22:41> Meds - Medications Medications: Current Medications Albuterol/Ipratropium (Duoneb 3 Mg/0.5 Mg (3 Ml) Ud) 3 ml IH Q2H PRN PRN Reason: Shortness of Breath Albuterol/Ipratropium (Duoneb 3 Mg/0.5 Mg (3 Ml) Ud) 3 ml IH [id number] [facility] Last Admin: 07/14/18 20:35 Dose: 3 ml Alprazolam (Xanax) 0.5 mg PO QID PRN; Protocol PRN Reason: Anxiety Last Admin: 07/14/18 13:05 Dose: 0.5 mg Arformoterol Tartrate (Brovana) 15 mcg IH [id number] [facility] Last Admin: 07/14/18 20:35 Dose: 15 mcg Aspirin (Ecotrin) 81 mg PO DAILY [facility] Last Admin: 07/14/18 10:07 Dose: 81 mg Atorvastatin Calcium (Lipitor) 20 mg PO HS [facility] Budesonide (Pulmicort Respules) 0.25 mg IH [id number] [facility] Last Admin: 07/14/18 20:36 Dose: 0.25 mg Dextrose (Dextrose 50% Inj) 0 ml IV STAT PRN; Protocol PRN Reason: Hypoglycemia Protocol Doxycycline Hyclate (Doryx) 100 mg PO Q12 [facility]; Protocol Stop: 07/20/18 22:01 Last Admin: 07/14/18 22:02 Dose: 100 mg Heparin Sodium (Porcine) (Heparin) 5,000 units SC Q8 [facility]; Protocol Last Admin: 07/14/18 22:02 Dose: 5,000 units Dextrose (Dextrose 5% In Water 1000 Ml) 1,000 mls @ 0 mls/hr IV .Q0M PRN; Protocol PRN Reason: Hypoglycemia Protocol Cefepime HCl (Maxipime 1gm) 1 gm in 100 mls @ 100 mls/hr IVPB Q24H [facility]; Protocol Stop: 07/21/18 17:16 Last Admin: 07/14/18 22:01 Dose: 100 mls/hr Insulin Detemir (Levemir) 30 unit SC HS [facility] Last Admin: 07/14/18 22:04 Dose: 30 units Insulin Human Lispro (Humalog Low) 0 units SC ACHS [facility]; Protocol Last Admin: 07/14/18 17:56 Dose: Not Given Insulin Human Lispro (Humalog) 12 units SC ACTID [facility] Last Admin: 07/14/18 17:55 Dose: 12 units Methylprednisolone (Solu-Medrol) 40 mg IVP Q8H [facility] Last Admin: 07/14/18 17:59 Dose: 40 mg Metoprolol Tartrate (Lopressor) 25 mg PO BID [facility] Last Admin: 07/14/18 17:57 Dose: 25 mg Nicotine (Nicoderm Cq) 1 patch TD DAILY [facility] Last Admin: 07/14/18 10:07 Dose: 1 patch Ondansetron HCl (Zofran Inj) 4 mg IVP Q6H PRN PRN Reason: Nausea/Vomiting Pantoprazole Sodium (Protonix Ec Tab) 40 mg PO 0600 [facility] Last Admin: 07/14/18 06:51 Dose: 40 mg Paroxetine HCl (Paxil) 5 mg PO [facility] Results - Vital Signs Recent Vital Signs: Last Vital Signs Temp 98.4 F 07/14/18 18:37 Pulse 98 H 07/14/18 18:37 Resp 20 07/14/18 18:37 BP 147/58 L 07/14/18 18:37 Pulse Ox 99 07/13/18 06:00 - Labs Result Diagrams: 07/14/18 08:27 07/14/18 08:27 Labs: Laboratory Results - last 24 hr 07/13/18 07/14/18 07/14/18 10:20 07:40 08:27 WBC 4.8 D RBC 2.67 L Hgb 7.7 L Hct 25.1 L MCV 94.0 MCH 28.8 MCHC 30.7 L RDW 16.5 H Plt Count 280 MPV 10.6 Neut % (Auto) 88.3 H Lymph % (Auto) 7.5 L Lares % (Auto) 3.8 Eos % (Auto) 0.2 L Baso % (Auto) 0.2 Lymph # (Auto) 0.4 L Lares # (Auto) 0.2 Eos # (Auto) 0.0 Baso # (Auto) 0.01 Absolute Neuts (auto) 4.21 Sodium Potassium Chloride Carbon Dioxide Anion Gap BUN Creatinine Est GFR ( Amer) Est GFR (Non-Af Amer) POC Glucose (mg/dL) 339 H Random Glucose Calcium Total Bilirubin AST ALT Alkaline Phosphatase Total Protein Albumin Globulin Albumin/Globulin Ratio Ur Random Creatinine Ur Random Sodium Stool Occult Blood Blood Type B POSITIVE Antibody Screen Negative Crossmatch See Detail BBK History Checked Patient has bt 07/14/18 07/14/18 07/14/18 08:27 11:41 16:53 WBC RBC Hgb Hct MCV MCH MCHC RDW Plt Count MPV Neut % (Auto) Lymph % (Auto) Lares % (Auto) Eos % (Auto) Baso % (Auto) Lymph # (Auto) Lares # (Auto) Eos # (Auto) Baso # (Auto) Absolute Neuts (auto) Sodium 142 Potassium 4.7 Chloride 110 H Carbon Dioxide 22 Anion Gap 14 BUN 58 H Creatinine 2.4 H Est GFR ( Amer) 25 Est GFR (Non-Af Amer) 21 POC Glucose (mg/dL) 246 H 242 H Random Glucose 336 H* D Calcium 7.8 L Total Bilirubin 0.3 AST 14 ALT 10 Alkaline Phosphatase 55 Total Protein 6.3 Albumin 3.3 Globulin 3.1 Albumin/Globulin Ratio 1.1 Ur Random Creatinine Ur Random Sodium Stool Occult Blood Blood Type Antibody Screen Crossmatch BBK History Checked 07/14/18 07/14/18 07/14/18 17:50 21:10 21:12 WBC RBC Hgb Hct MCV MCH MCHC RDW Plt Count MPV Neut % (Auto) Lymph % (Auto) Lares % (Auto) Eos % (Auto) Baso % (Auto) Lymph # (Auto) Lares # (Auto) Eos # (Auto) Baso # (Auto) Absolute Neuts (auto) Sodium Potassium Chloride Carbon Dioxide Anion Gap BUN Creatinine Est GFR ( Amer) Est GFR (Non-Af Amer) POC Glucose (mg/dL) 232 H Random Glucose Calcium Total Bilirubin AST ALT Alkaline Phosphatase Total Protein Albumin Globulin Albumin/Globulin Ratio Ur Random Creatinine 12 Ur Random Sodium 124 Stool Occult Blood Negative Blood Type Antibody Screen Crossmatch BBK History Checked Attending/Attestation - Attestation I have personally seen and examined this patient.: Yes I have fully participated in the care of the patient.: Yes I have reviewed all pertinent clinical information: Yes Notes (Text): This patient was seen and evaluated here earlier This is an addendum to the GI consultation report dictated by the fellow. Patient had significant anemia drop in blood count. Probably multifactorial etiology. History of grade D esophageal ulcerations last EGD report was reviewed. Patient has been on PPI. No obvious melena or bright red blood per rectum. Patient has breast carcinoma. Discussed with the Dr. Rick hospitalist and patient at length. Request for a CT of the abdomen and pelvis with p.o. contrast to further evaluate. Follow-up of the hemoglobin hematocrit. 07/14/18 22:38
--- NOTE | 2018-07-14 11:12 | CP.PCM.PN ---
<Lizzette Garnica - Last Filed: 07/14/18 11:09> Subjective - Date & Time of Evaluation Date of Evaluation: 07/14/18 Time of Evaluation: 11:09 - Subjective Subjective: Lizzette Garnica, PGY-1, Internal Medicine Progress Note for Dr. Rick Patient seen and evaluated at bedside. Patient had a shower yesterday and has had contact precautions discontinued. She reports having a large normal bowel movement yesterday, had abdominal pain prior to the stool, and has cough with sputum. 12-point ROS was unremarkable except for what was mentioned above. Objective - Vital Signs/Intake and Output Vital Signs (last 24 hours): Temp Pulse Resp BP Pulse Ox 98.7 F 99 H 20 122/70 99 07/13/18 18:44 07/14/18 10:07 07/13/18 18:44 07/14/18 10:07 07/13/18 06:00 Intake and Output: 07/14/18 07/14/18 06:59 18:59 Intake Total 960 Output Total 400 Balance 560 - Medications Medications: Current Medications Acetaminophen (Tylenol 325mg Tab) 650 mg PO ONCE ONE Stop: 07/14/18 11:09 Albuterol/Ipratropium (Duoneb 3 Mg/0.5 Mg (3 Ml) Ud) 3 ml IH Q2H PRN PRN Reason: Shortness of Breath Albuterol/Ipratropium (Duoneb 3 Mg/0.5 Mg (3 Ml) Ud) 3 ml IH [id number] [facility] Last Admin: 07/14/18 07:42 Dose: 3 ml Alprazolam (Xanax) 0.5 mg PO QID PRN; Protocol PRN Reason: Anxiety Last Admin: 07/14/18 08:43 Dose: 0.5 mg Arformoterol Tartrate (Brovana) 15 mcg IH [id number] [facility] Last Admin: 07/14/18 07:42 Dose: 15 mcg Aspirin (Ecotrin) 81 mg PO DAILY [facility] Last Admin: 07/14/18 10:07 Dose: 81 mg Atorvastatin Calcium (Lipitor) 20 mg PO HS [facility] Budesonide (Pulmicort Respules) 0.25 mg IH [id number] [facility] Last Admin: 07/14/18 07:43 Dose: 0.25 mg Dextrose (Dextrose 50% Inj) 0 ml IV STAT PRN; Protocol PRN Reason: Hypoglycemia Protocol Diphenhydramine HCl (Benadryl) 25 mg PO ONCE ONE Stop: 07/14/18 11:09 Doxycycline Hyclate (Doryx) 100 mg PO Q12 [facility]; Protocol Stop: 07/20/18 22:01 Last Admin: 07/14/18 10:07 Dose: 100 mg Furosemide (Lasix) 20 mg IVP ONCE ONE Stop: 07/14/18 11:09 Heparin Sodium (Porcine) (Heparin) 5,000 units SC Q8 [facility]; Protocol Last Admin: 07/14/18 06:50 Dose: 5,000 units Dextrose (Dextrose 5% In Water 1000 Ml) 1,000 mls @ 0 mls/hr IV .Q0M PRN; Protocol PRN Reason: Hypoglycemia Protocol Cefepime HCl (Maxipime 1gm) 1 gm in 100 mls @ 100 mls/hr IVPB Q24H [facility]; Protocol Stop: 07/21/18 17:16 Last Admin: 07/13/18 17:07 Dose: 100 mls/hr Insulin Detemir (Levemir) 30 unit SC HS [facility] Last Admin: 07/13/18 22:28 Dose: Not Given Insulin Human Lispro (Humalog Low) 0 units SC ACHS [facility]; Protocol Last Admin: 07/14/18 08:41 Dose: 2 unit Insulin Human Lispro (Humalog) 12 units SC ACTID [facility] Last Admin: 07/14/18 08:43 Dose: Not Given Methylprednisolone (Solu-Medrol) 40 mg IVP Q8H [facility] Last Admin: 07/14/18 10:07 Dose: 40 mg Metoprolol Tartrate (Lopressor) 25 mg PO BID [facility] Last Admin: 07/14/18 10:07 Dose: 25 mg Nicotine (Nicoderm Cq) 1 patch TD DAILY [facility] Last Admin: 07/14/18 10:07 Dose: 1 patch Ondansetron HCl (Zofran Inj) 4 mg IVP Q6H PRN PRN Reason: Nausea/Vomiting Pantoprazole Sodium (Protonix Ec Tab) 40 mg PO 0600 [facility] Last Admin: 07/14/18 06:51 Dose: 40 mg Paroxetine HCl (Paxil) 5 mg PO HS [facility] - Labs Labs: 07/14/18 08:27 07/14/18 08:27 - Constitutional Appears: No Acute Distress, Chronically Ill - Head Exam Head Exam: ATRAUMATIC, NORMAL INSPECTION - Eye Exam Eye Exam: EOMI, Normal appearance, PERRL Pupil Exam: NORMAL ACCOMODATION - ENT Exam ENT Exam: Mucous Membranes Dry - Neck Exam Neck exam: Positive for: Normal Inspection - Respiratory Exam Respiratory Exam: Clear to Auscultation Bilateral. absent: Rales, Rhonchi, Wheezes, Respiratory Distress Additional comments: - Cardiovascular Exam Cardiovascular Exam: REGULAR RHYTHM, +S1, +S2. absent: Bradycardia, Tachycardia, Gallop, Rubs, Systolic Murmur - GI/Abdominal Exam GI & Abdominal Exam: Normal Bowel Sounds, Soft. absent: Distended, Firm, Tenderness - Extremities Exam Extremities exam: Positive for: normal inspection. Negative for: pedal edema - Neurological Exam Additional comments: AAO X 3. No focal deficits. - Skin Skin Exam: Dry, Normal Color, Warm Additional comments: Abrasions noted on bilateral upper & lower extremities. No burrowing in interdigital web spaces Assessment and Plan - Assessment and Plan (Free Text) Assessment: 57 year old female, whose past medical history includes breast cancer, severe COPD, asthma, anxiety, pleural effusions, and CKD presented to the ED for hypoglycemia and is being treated for COPD exacerbation Plan: Acute on Chronic COPD Exacerbation - Likely 2/2 continued tobacco use - Procalcitonin: 1.83 - CXR 07/12: Volume loss right lung & dense lower lobe consolidation consistent with lobar atelectasis - CT Head 07/12: No acute intracranial abnormalities. No significant findings to account for the clinical presentation. No significant interval change compared to the prior examination - Continue budesonide, arformoterol, duonebs, Solumedrol 40Q8 - Pulmonology, Dr. Santiago following Normocytic Anemia -Hgb: 7.7 from 8.6 on admission. Baseline is 8-9s -Status post 1 U of pRBCS. Inappropriate increase in hemoglobin -Dr. Coker will consider endoscopy, however, will have to be cautious due to patient's respiratory status. Sepsis 2/2 to CAP vs. UTI -CXR: volume loss right lung and dense lower lobe consolidation consistent with atelectasis. -Blood culture: gram positive Cocci in Clusters -UA: moderate LE, negative nitrate, 25-30 WBC, 6-8 epithelial cells. Many yeast seen. -Urine culture: yeast -Procalcitonin: 1.83 -Leukocytosis resolved. Could have been secondary to steroids -Continue doxycycline and cefepime. Hypoglycemia-resolved - Accuchecks Q2HX12 -Dextrose available in case patient becomes hypoglycemic - Endocrinology consulted, Dr. Hawkins DM-2 - Continue levemir 30SC HS, Lispro 12u ACTID, ISS - Endocrine following DAHLIA on CKD - BUN/Cr: 58/2.4. Creatinine elevated from baseline of 1.5 to 2 - Likely 2/2 diabetic nephropathy - Nephrology following Hyperlipidemia - Continue Lipitor 20mg PO HS Hypertension - Continue home Lopressor 25mg PO BID History of breast cancer -Patient refused chemo and surgery post on cycle of chemo. -Continue to follow heme/onc recommendations Tobacco use disorder - continue nicotine patch -Counseled at length regarding tobacco cessation Anxiety, depression - Continue home Xanax 0.5mg PO QID PRN, Paxil 5mg PO HS DVT prophylaxis: Heparin 5000 U DVT prophylaxis: protonix 40 mg daily Patient plan discussed with Dr. Rick <Whit Rick - Last Filed: 07/15/18 07:29> Objective - Vital Signs/Intake and Output Vital Signs (last 24 hours): Temp Pulse Resp BP Pulse Ox 97.8 F 79 18 160/64 H 100 07/15/18 06:00 07/15/18 06:00 07/15/18 06:00 07/15/18 06:00 07/15/18 06:00 Intake and Output: 07/15/18 07/15/18 06:59 18:59 Intake Total 1552 Output Total 2240 Balance -688 - Medications Medications: Current Medications Albuterol/Ipratropium (Duoneb 3 Mg/0.5 Mg (3 Ml) Ud) 3 ml IH Q2H PRN PRN Reason: Shortness of Breath Albuterol/Ipratropium (Duoneb 3 Mg/0.5 Mg (3 Ml) Ud) 3 ml IH [id number] [facility] Last Admin: 07/15/18 02:00 Dose: Not Given Alprazolam (Xanax) 0.5 mg PO QID PRN; Protocol PRN Reason: Anxiety Last Admin: 07/15/18 02:00 Dose: 0.5 mg Arformoterol Tartrate (Brovana) 15 mcg IH [id number] [facility] Last Admin: 07/14/18 20:35 Dose: 15 mcg Aspirin (Ecotrin) 81 mg PO DAILY [facility] Last Admin: 07/14/18 10:07 Dose: 81 mg Atorvastatin Calcium (Lipitor) 20 mg PO HS [facility] Budesonide (Pulmicort Respules) 0.25 mg IH [id number] [facility] Last Admin: 07/14/18 20:36 Dose: 0.25 mg Dextrose (Dextrose 50% Inj) 0 ml IV STAT PRN; Protocol PRN Reason: Hypoglycemia Protocol Doxycycline Hyclate (Doryx) 100 mg PO Q12 [facility]; Protocol Stop: 07/20/18 22:01 Last Admin: 07/14/18 22:02 Dose: 100 mg Heparin Sodium (Porcine) (Heparin) 5,000 units SC Q8 [facility]; Protocol Last Admin: 07/15/18 06:05 Dose: 5,000 units Dextrose (Dextrose 5% In Water 1000 Ml) 1,000 mls @ 0 mls/hr IV .Q0M PRN; Protocol PRN Reason: Hypoglycemia Protocol Cefepime HCl (Maxipime 1gm) 1 gm in 100 mls @ 100 mls/hr IVPB Q24H [facility]; Protocol Stop: 07/21/18 17:16 Last Admin: 07/14/18 22:01 Dose: 100 mls/hr Insulin Detemir (Levemir) 30 unit SC [facility] Last Admin: 07/14/18 22:04 Dose: 30 units Insulin Human Lispro (Humalog Low) [address] [facility]; Protocol Last Admin: 07/14/18 22:00 Dose: Not Given Insulin Human Lispro (Humalog) 12 units SC ACTID [facility] Last Admin: 07/14/18 17:55 Dose: 12 units Methylprednisolone (Solu-Medrol) 40 mg IVP Q8H [facility] Last Admin: 07/15/18 02:01 Dose: 40 mg Metoprolol Tartrate (Lopressor) 25 mg PO BID [facility] Last Admin: 07/14/18 17:57 Dose: 25 mg Nicotine (Nicoderm Cq) 1 patch TD DAILY [facility] Last Admin: 07/14/18 10:07 Dose: 1 patch Ondansetron HCl (Zofran Inj) 4 mg IVP Q6H PRN PRN Reason: Nausea/Vomiting Pantoprazole Sodium (Protonix Ec Tab) 40 mg PO 0600 [facility] Last Admin: 07/15/18 06:05 Dose: 40 mg Paroxetine HCl (Paxil) 5 mg PO HS [facility] - Labs Labs: 07/14/18 08:27 07/14/18 08:27 Attending/Attestation - Attestation I have personally seen and examined this patient.: Yes I have fully participated in the care of the patient.: Yes I have reviewed all pertinent clinical information, including history, physical exam and plan: Yes Notes (Text): Patient seen and examined by me with resident at approximately at 8:50AM on 07/14/18. Case including HPI, physical exam, and assessment and plan discussed with resident. Agree with above with following additions/corrections. Patient is a 57 year old female with past medical history significant for severe COPD, asthma, tobacco abuse, pleural effusions, CKD, pneumonia, hypertension, hyperlipidemia, breast cancer, anemia, depression and anxiety, and recurrent UTIs that presented to the emergency room for hypoglycemia. Patient states she is feeling ok. Still has some shortness of breath. States she is still having a productive cough with "yellow and brown" phlegm. She denies any chest pain or palpitations. No nausea or vomiting. No abdominal pain. No fevers or chills. No dysuria. Physical exam: General: Awake and alert sitting up in bed in no acute distress HEENT: Normocephalic, atraumatic. Extraocular muscles intact, pupils equal and reactive, no scleral icterus. Oropharynx is pink and moist. No pharyngeal erythema or exudate appreciated. Neck is supple. Cardiovascular: Regular rhythm. Normal S1 and S2. No murmurs, rubs, or gallops appreciated Pulmonary: Normal respiratory effort. Decreased breath sounds. No rhonchi, ra les, or wheezing appreciated. Gastrointestinal: Soft, nondistended. Nontender. Positive bowel sounds all 4 quadrants. No guarding. Musculoskeletal: Moves all extremities. No calf tenderness. No edema appreciated Central nervous system: Awake and alert. Dermatologic: Skin warm and dry. Positive bug bites, excoriations, some scabs bilateral forearms, hands, and entire legs. Assessment and plan: Patient is a 57 year old female with past medical history significant for chronic respiratory failure secondary severe COPD on home oxgen, asthma, tobacco abuse, pleural effusions, CKD, pneumonia, hypertension, hyperlipidemia, breast cancer, anemia, depression and anxiety, and recurrent UTIs that presented to the emergency room for hypoglycemia. 1. Acute COPD exacerbation. Pulmonary recommendations appreciated. Continue nebulizer treatments. Continue Pulmicort and Brovana. Continue solumedrol, taper. Continue O2 via nasal cannula. Patient counseled at length on tobacco cessation. On home oxygen. Chest CT per radiologist showed heterogeneous left breast mass with calcifications with axillary adenopathy compatible with neoplasm with metastases, chronic right thoracic volume loss with subsegmental atelectasis of the right upper and lower lobes, partially enlarged upper abdominal lymph nodes compatible with metastases. 2. Sepsis. Gram Positive bacteremia. Blood cultures positive for gram postiive cocci in clusters. Repeat blood cultures pending. Urine culture positive for yeast. Procalcitonin 1.83. Leukocytosis resolved. Afebrile. Continue Doxycycline and Cefepime. Chest xray per radiologist showed volume loss right lung and dense lower lobe consolidation consistent with lobar atelectasis. 3. Hypoglycemia. Resolved. Endocrinology team following, recommendations appreciated. Continue to monitor accuchecks. 4. Acute kidney injury on Chronic Kidney disease. Cytology Supervisor recommendations appreciated. S/P IV fluids. Creatinine stable 5. Hyperkalemia. Resovled. S/P albuterol and calcium gluconate. Continue to monitor. 6. Anemia. Likely secondary to malignancy and chronic disease. S/P 1 units PRBCs 07/13/18. Patient to be transfused 1 unit PRBC today. Hem/onc recommendations appreciated. GI recommendations appreciated. Pending CT abd/pelvis. History of grade D esophageal ulcerations. Stool for occult blood negative. Continue to monitor CBC. 7. DM2. Now with hyperglycemia. Likely secondary to steroids. Continue insulin sliding scale. Continue insulin per endocrinology team. Continue to monitor accuchecks. 8. Essential hypertension. Continue Metoporolol 9. Hyperlipidemia. Continue lipitor. 10. Metastatic breast cancer. Patient refused chemo and surgery post one cycle of chemo. Chest CT as above. Hem/onc following, recommendations appreciated. 11. Depression and Anxiety. Continue Paxil 5 mg at bedtime. Continue Xanax as needed. 12. Tobacco abuse. Patient was counseled at length on tobacco cessation. Continue with nicotine patch. 13. Bug bites. Has bed bugs at home. S/P shower and off isolation. 14. GI/DVT prophylaxis. Protonix/heparin 15. Patient is DNR/DNI. Palliative care recommendations appreciated. Case was discussed in detail with the patient regarding current diagnosis and treatment plan.All questions answered.
--- NOTE | 2018-07-14 13:20 | CP.PCM.PN ---
Subjective - Date & Time of Evaluation Date of Evaluation: 07/14/18 Time of Evaluation: 13:19 - Subjective Subjective: Pulmonary Progress note No overnight events, patient feeling better in terms of her breathing no fever, no chill, no hemoptysis refused bipap overnight Objective - Vital Signs/Intake and Output Vital Signs (last 24 hours): Temp Pulse Resp BP Pulse Ox 98.7 F 99 H 20 122/70 99 07/13/18 18:44 07/14/18 10:07 07/13/18 18:44 07/14/18 10:07 07/13/18 06:00 Intake and Output: 07/14/18 07/14/18 06:59 18:59 Intake Total 960 Output Total 400 Balance 560 - Medications Medications: Current Medications Albuterol/Ipratropium (Duoneb 3 Mg/0.5 Mg (3 Ml) Ud) 3 ml IH Q2H PRN PRN Reason: Shortness of Breath Albuterol/Ipratropium (Duoneb 3 Mg/0.5 Mg (3 Ml) Ud) 3 ml IH [id number] [facility] Last Admin: 07/14/18 13:14 Dose: Not Given Alprazolam (Xanax) 0.5 mg PO QID PRN; Protocol PRN Reason: Anxiety Last Admin: 07/14/18 13:05 Dose: 0.5 mg Arformoterol Tartrate (Brovana) 15 mcg IH [id number] [facility] Last Admin: 07/14/18 07:42 Dose: 15 mcg Aspirin (Ecotrin) 81 mg PO DAILY [facility] Last Admin: 07/14/18 10:07 Dose: 81 mg Atorvastatin Calcium (Lipitor) 20 mg PO HS [facility] Budesonide (Pulmicort Respules) 0.25 mg IH [id number] [facility] Last Admin: 07/14/18 07:43 Dose: 0.25 mg Dextrose (Dextrose 50% Inj) 0 ml IV STAT PRN; Protocol PRN Reason: Hypoglycemia Protocol Doxycycline Hyclate (Doryx) 100 mg PO Q12 [facility]; Protocol Stop: 07/20/18 22:01 Last Admin: 07/14/18 10:07 Dose: 100 mg Heparin Sodium (Porcine) (Heparin) 5,000 units SC Q8 [facility]; Protocol Last Admin: 07/14/18 06:50 Dose: 5,000 units Dextrose (Dextrose 5% In Water 1000 Ml) 1,000 mls @ 0 mls/hr IV .Q0M PRN; Protocol PRN Reason: Hypoglycemia Protocol Cefepime HCl (Maxipime 1gm) 1 gm in 100 mls @ 100 mls/hr IVPB Q24H [facility]; Protocol Stop: 07/21/18 17:16 Last Admin: 07/13/18 17:07 Dose: 100 mls/hr Insulin Detemir (Levemir) 30 unit SC [facility] Last Admin: 07/13/18 22:28 Dose: Not Given Insulin Human Lispro (Humalog Low) 0 units SC ACHS [facility]; Protocol Last Admin: 07/14/18 08:41 Dose: 2 unit Insulin Human Lispro (Humalog) 12 units SC ACTID [facility] Last Admin: 07/14/18 08:43 Dose: Not Given Methylprednisolone (Solu-Medrol) 40 mg IVP Q8H [facility] Last Admin: 07/14/18 10:07 Dose: 40 mg Metoprolol Tartrate (Lopressor) 25 mg PO BID [facility] Last Admin: 07/14/18 10:07 Dose: 25 mg Nicotine (Nicoderm Cq) 1 patch TD DAILY [facility] Last Admin: 07/14/18 10:07 Dose: 1 patch Ondansetron HCl (Zofran Inj) 4 mg IVP Q6H PRN PRN Reason: Nausea/Vomiting Pantoprazole Sodium (Protonix Ec Tab) 40 mg PO 0600 [facility] Last Admin: 07/14/18 06:51 Dose: 40 mg Paroxetine HCl (Paxil) 5 mg PO [facility] - Labs Labs: 07/14/18 08:27 07/14/18 08:27 - Constitutional Appears: No Acute Distress, Unkempt, Older Than Stated Age - Head Exam Head Exam: ATRAUMATIC - Eye Exam Eye Exam: EOMI, Normal appearance, PERRL Pupil Exam: NORMAL ACCOMODATION, PERRL - Neck Exam Neck Exam: Full ROM, Normal Inspection. absent: Lymphadenopathy - Respiratory Exam Respiratory Exam: Prolonged Expiratory Phase. absent: Accessory Muscle Use, Respiratory Distress, Stridor - Cardiovascular Exam Cardiovascular Exam: REGULAR RHYTHM, +S1, +S2. absent: Murmur - GI/Abdominal Exam GI & Abdominal Exam: Soft, Normal Bowel Sounds. absent: Tenderness Assessment and Plan - Assessment and Plan (Free Text) Assessment: 57 female active long time smoker with COPD on home 02 and steroids admitted with hypoglycemia, sepsis and copd exasc. COPD exasc much more controlled now. Refused bipap at night however still feeling well this AM. No fevers. Of note, her blood culture are positive in 2/2 bottle for GPC and her blood sugars are > 300 Recommendations: -transition back to her home inhalers including airduo with duonebs -cont oxygen titration to keep sat 88-92%; avoid overoxygenation -taper steroids down to 40 q 12h today then 40 daily x 1 day, then decrease by 10 everyday until she is back to her home dose -CT Chest ordered by primary, will review -OOB ambulate / PT -smoking cessation -nicotine patch -abx as per primary team, would repeat cultures. It is odd that should have GPC bactermia but not appear so toxic. Thank you for the consultation Hudson Loo MD Attending Pulmonary Critical Care Sleep Medicine
--- NOTE | 2018-07-14 13:47 | CT ---
Date of service: 07/14/2018 PROCEDURE: CT Chest without contrast HISTORY: attn L Breast/Axilla mass/neoplasm? COMPARISON: Chest radiograph dated 07/12/2018; CT chest dated 04/25/2018 TECHNIQUE: Contiguous axial images were obtained through the chest without intravenous contrast enhancement. Sagittal and coronal reconstructions were performed. Radiation dose: Total exam DLP = 336.69 mGy-cm. This CT exam was performed using one or more of the following dose reduction techniques: Automated exposure control, adjustment of the mA and/or kV according to patient size, and/or use of iterative reconstruction technique. FINDINGS: LUNGS: Right thoracic volume loss with subsegmental atelectasis of the posterior medial right upper and right lower lobes. Visualized airway clear MEDIASTINUM: Right chest wall internal jugular access chest port with catheter tip at the cavoatrial junction. Unremarkable thoracic aorta. No aneurysm. Normal sized heart. Main pulmonary artery unremarkable. No vascular congestion. No lymphadenopathy. No aortic atherosclerotic calcification. PLEURA: Small right pleural effusion. No pneumothorax. BONES: No fracture. No destructive lesion. UPPER ABDOMEN: Partially imaged enlarged upper abdominal lymph nodes. OTHER FINDINGS: Left breast mass measuring 3.5 x 5.0 cm with calcifications. Left breast soft tissue thickening. Enlarged left axillary lymph node measuring 3.1 x 2.2 cm. Prominent right axillary lymph nodes. IMPRESSION: Heterogeneous left breast mass with calcifications with axillary adenopathy compatible with neoplasm with metastases. Chronic right thoracic volume loss with subsegmental atelectasis of the right upper and lower lobes. Partially enlarged upper abdominal lymph nodes compatible with metastases.
--- NOTE | 2018-07-14 15:16 | PN ---
DATE: 07/14/2018 SUBJECTIVE: The patient is seen sitting in bed. She is awake, she is alert. She reports that she is in [place]. She does not appear to be in any kind of distress. PHYSICAL EXAMINATION VITAL SIGNS: Blood pressure 122/70, heart rate 99, respiratory rate 18, temperature 98.7. HEENT: Normocephalic, atraumatic, positive pallor. NECK: Supple, no JVD. LUNGS: Bilateral equal air entry, bilateral equal expansion, no rales. Bilateral rhonchi. CARDIAC: S1 and S2, regular rate and rhythm, no murmur, no rub. ABDOMEN: Obese, distended, soft, nontender, bowel sounds present. EXTREMITIES: Trace lower extremity edema. INTAKE AND OUTPUT: 2069/400. LABORATORY DATA: WBC 4.7, hemoglobin 7.7, hematocrit 25, platelets 280. Sodium 142, potassium 4.7, chloride 110, CO2 of 22, BUN 58, creatinine 2.4, glucose 336, calcium 7.8. CURRENT MEDICATIONS: List reviewed. ASSESSMENT 1. Severe anemia, status post 1 unit of blood transfusion yesterday. 2. Acute kidney injury superimposed on chronic kidney disease, stage III/IV. Renal parameters slowly improving. 3. Hyperkalemia, resolved. 4. Severe hyperglycemia. 5. Chronic obstructive pulmonary disease with exacerbation. 6. Pneumonia. PLAN 1. Continue antibiotics as per ID recommendations. 2. Transfuse one more unit of blood today. 3. Lasix 40 mg before blood transfusion. 4. Avoid nephrotoxins. 5. Continue respiratory treatments. 6. Taper steroids. Lula Hurd MD
[2018-07-14] MEDS ORDERED: Vancomycin 2 GM in Sodium Chloride 0.9% 500 ML IVPB ONE (17:01)
--- NOTE | 2018-07-14 18:09 | PN ---
DATE: 07/14/2018 This is [facility] visit on the telemetry floor. For Dr. Gleason. SUBJECTIVE: The patient is a 57-year-old female seen sitting up in bed, admitted for mental status change with hypoglycemia. However; the patient was noted to have severe anemic indices for which one unit of packed red blood cells was transfused yesterday and additional one will be transfused today. She denies active bleeding at this time with the patient otherwise reported feeling stronger. She is also known to suffer from a probable neoplastic change in the left breast and axilla for which she refused treatment initially, which we may consider treatment should she be amenable to this hospitalization. The patient also is now being treated for bed bugs. The patient otherwise without complaint at this visit. PHYSICAL EXAMINATION: VITAL SIGNS: Temperature 98.7, pulse 99, respirations 20, blood pressure 122/70 with a pulse ox of 99%. HEENT: Unremarkable. NECK: Supple. HEART: Regular rate. Occasional ectopic beat. LUNGS: Minimal decreased breath sounds. ABDOMEN: Obese, soft, nontender. EXTREMITIES: No edema. SKIN: Warm and dry. NEUROLOGIC: Awake and alert. LABORATORY DATA: The patient's labs were done. White blood cell count of 4.8; hemoglobin of 7.7, status post transfusion of one unit of packed cells yesterday; and platelet count of 280,000 with a metabolic panel showing a nonfasting glucose of 336 with a creatinine of 2.4 and BUN of 58. DIAGNOSTIC DATA: The patient did have a CT scan of the chest done, however, it has not been read yet. We will await the report. ASSESSMENT: For this patient is that of symptomatic anemia, status post transfusion; hypoglycemia; questionable syncope; abnormal CAT scan suspicious for neoplastic changes of breast and axilla; history of positive biopsy invasive ductal carcinoma in 2016 along with diabetes mellitus; chronic kidney disease; history of drug abuse; chronic obstructive pulmonary disease; and history of bladder tumor. PLAN: The plan for this patient after conversation with Dr. Gleason is to await the results of the CT scan with consideration for treatment should the patient be amenable to this. We will continue with present medical regimen. This is a complex patient with a comprehensive medically necessary and appropriate visit carried out in excess of 25 minutes with the patient's questions answered to her satisfaction. Juan Jose Valles MD
[2018-07-14 21:38] LABS: CREATININE,RANDOM URINE 12 mg/dL
--- NOTE | 2018-07-14 21:41 | PN ---
DATE: 07/14/2018 SUBJECTIVE: The patient is in bed, in no acute distress, nontoxic. PHYSICAL EXAMINATION: VITAL SIGNS: Temperature is 98, blood pressure is 150/60, respiratory rate of 16. HEENT: Unremarkable. NECK: Supple. LUNGS: Decreased breath sounds. HEART: Normal S1 and S2. ABDOMEN: Soft. LABORATORY DATA: White count of 4.8, hemoglobin of 7. Chemistries reveal a BUN of 58, creatinine of 2.4. Urinalysis is noted. Toxicology is noted. Microbiology reveals gram-positive cocci in clusters in blood and there is yeast in the urine. Review of orders reveals that the patient is on doxycycline, cefepime and intermittent vancomycin. We will repeat blood cultures x2. ASSESSMENT AND PLAN: This is a 57-year-old female with breast cancer, chronic obstructive pulmonary disease, anxiety, pleural effusion, kidney disease, substance abuse, admitted with hypoglycemia with severe sepsis with healthcare-associated pneumonia, acute kidney injury on top of chronic kidney injury, gram-positive cocci, bacteremia, was given a dose of vancomycin, repeat blood cultures, should have an echo to rule out endocarditis. We will follow with you and will make further recommendations upon availability of initial results. Prasanth Malcolm MD
[2018-07-14] MEDS: Cefepime 1gm in NS 100ml 1 GM/100 ML BAG IVPB SCH (22:01)
[2018-07-14] MEDS: Insulin Detemir 100 units/ml Vial (Levemir) SC SCH (22:04)
[2018-07-15] MEDS: Albuterol-Ipratrop 3 mg / 0.5 (3 ml) UD IH SCH ×5 (02:00→20:01)
[2018-07-15] MEDS: MethylPREDNISolone 40 mg Vial IVP SCH ×3 (02:01→22:52)
[2018-07-15] MEDS: Pantoprazole 40 mg EC Tab PO SCH (06:05)
[2018-07-15 07:39] LABS: HEMOGLOBIN 8.9 g/dL (12.0-16.0); LYMPH # 0.5 (1.2-3.4); LYMPH % 9.7 % (22.0-35.0); MEAN CELL VOLUME 89.4 fl (80.0-105.0); MEAN CORPUSCULAR HEMOGLOBIN 27.8 pg (25.0-35.0); MEAN CORPUSCULAR HGB CONC 31.1 g/dl (31.0-37.0); MEAN PLATELET VOLUME 10.1 fl (7.0-11.0); MONO # 0.2 (0.1-0.6); MONO % 3.6 % (1.0-6.0); RBC 3.2 10^6/uL (3.5-6.1); RED CELL DISTRIBUTION WIDTH 17.2 % (11.5-14.5); WHITE BLOOD COUNT 5.3 10^3/uL (4.5-11.0)
[2018-07-15] MEDS: Insulin Lispro (humaLOG) LOW Coverage SC SCH ×4 (08:10→22:51)
[2018-07-15] MEDS: Arformoterol 15 mcg/2 ml Inh Sol IH SCH ×3 (08:17→20:00)
[2018-07-15 08:18] LABS: ALB/GLOB RATIO 1.1 (1.1-1.8); ALBUMIN 3.6 g/dL (3.0-4.8); CALCIUM 7.8 mg/dL (8.4-10.5)
[2018-07-15] MEDS: Budesonide 0.25 mg/2 ml Inhal Susp UD IH SCH ×3 (08:18→20:01)
[2018-07-15] MEDS: Insulin Lispro 1 UNITS/0.01 ML SC SCH ×3 (08:22→18:40)
[2018-07-15] MEDS ORDERED: Vancomycin 1gm in NS 250ml 1 GM/250 ML BAG IVPB STA (09:32)
--- NOTE | 2018-07-15 09:55 | CP.PCM.PN ---
<Lizzette Garnica - Last Filed: 07/15/18 09:51> Subjective - Date & Time of Evaluation Date of Evaluation: 07/15/18 Time of Evaluation: 09:51 - Subjective Subjective: Lizzette Garnica, PGY-1, Internal Medicine Progress Note for Dr. Rick Patient seen and evaluated at bedside. Patient had no acute overnight events. Patient was given 1 U of pRBCS yesterday. Patient today reports mild abdominal pain, but denies any other symptoms including chest pain, shortness of breath, nausea, vomiting, constipation, diarrhea, dysuria, hematuria. 12-point ROS was unremarkable except for what was mentioned above. Objective - Vital Signs/Intake and Output Vital Signs (last 24 hours): Temp Pulse Resp BP Pulse Ox 97.8 F 79 18 160/64 H 100 07/15/18 06:00 07/15/18 06:00 07/15/18 06:00 07/15/18 06:00 07/15/18 06:00 Intake and Output: 07/15/18 07/15/18 06:59 18:59 Intake Total 1552 Output Total 2240 Balance -688 - Medications Medications: Current Medications Albuterol/Ipratropium (Duoneb 3 Mg/0.5 Mg (3 Ml) Ud) 3 ml IH Q2H PRN PRN Reason: Shortness of Breath Albuterol/Ipratropium (Duoneb 3 Mg/0.5 Mg (3 Ml) Ud) 3 ml IH [id number] [facility] Last Admin: 07/15/18 08:50 Dose: 3 ml Alprazolam (Xanax) 0.5 mg PO QID PRN; Protocol PRN Reason: Anxiety Last Admin: 07/15/18 02:00 Dose: 0.5 mg Arformoterol Tartrate (Brovana) 15 mcg IH [id number] [facility] Last Admin: 07/15/18 08:50 Dose: 15 mcg Aspirin (Ecotrin) 81 mg PO DAILY [facility] Last Admin: 07/14/18 10:07 Dose: 81 mg Atorvastatin Calcium (Lipitor) 20 mg PO HS [facility] Budesonide (Pulmicort Respules) 0.25 mg IH [id number] [facility] Last Admin: 07/15/18 08:50 Dose: 0.25 mg Dextrose (Dextrose 50% Inj) 0 ml IV STAT PRN; Protocol PRN Reason: Hypoglycemia Protocol Doxycycline Hyclate (Doryx) 100 mg PO Q12 [facility]; Protocol Stop: 07/20/18 22:01 Last Admin: 07/14/18 22:02 Dose: 100 mg Heparin Sodium (Porcine) (Heparin) 5,000 units SC Q8 [facility]; Protocol Last Admin: 07/15/18 06:05 Dose: 5,000 units Dextrose (Dextrose 5% In Water 1000 Ml) 1,000 mls @ 0 mls/hr IV .Q0M PRN; Protocol PRN Reason: Hypoglycemia Protocol Cefepime HCl (Maxipime 1gm) 1 gm in 100 mls @ 100 mls/hr IVPB Q24H [facility]; Protocol Stop: 07/21/18 17:16 Last Admin: 07/14/18 22:01 Dose: 100 mls/hr Vancomycin HCl (Vancomycin 1gm) 1 gm in 250 mls @ 167 mls/hr IVPB STAT ST[facility]; Protocol Stop: 07/15/18 11:01 Insulin Detemir (Levemir) 34 unit SC [facility] Insulin Human Lispro (Humalog Low) 0 units SC ACHS [facility]; Protocol Last Admin: 07/15/18 08:10 Dose: Not Given Insulin Human Lispro (Humalog) 14 units SC ACTID [facility] Methylprednisolone (Solu-Medrol) 40 mg IVP Q8H [facility] Last Admin: 07/15/18 02:01 Dose: 40 mg Metoprolol Tartrate (Lopressor) 25 mg PO BID [facility] Last Admin: 07/14/18 17:57 Dose: 25 mg Nicotine (Nicoderm Cq) 1 patch TD DAILY [facility] Last Admin: 07/14/18 10:07 Dose: 1 patch Ondansetron HCl (Zofran Inj) 4 mg IVP Q6H PRN PRN Reason: Nausea/Vomiting Pantoprazole Sodium (Protonix Ec Tab) 40 mg PO 0600 [facility] Last Admin: 07/15/18 06:05 Dose: 40 mg Paroxetine HCl (Paxil) 5 mg PO [facility] - Labs Labs: 07/15/18 07:15 07/15/18 07:15 - Constitutional Appears: No Acute Distress, Chronically Ill - Head Exam Head Exam: ATRAUMATIC, NORMAL INSPECTION - Eye Exam Eye Exam: EOMI, Normal appearance, PERRL Pupil Exam: NORMAL ACCOMODATION - ENT Exam ENT Exam: Mucous Membranes Dry - Neck Exam Neck exam: Positive for: Normal Inspection - Respiratory Exam Respiratory Exam: Clear to Auscultation Bilateral. absent: Rales, Rhonchi, Wheezes, Respiratory Distress Additional comments: - Cardiovascular Exam Cardiovascular Exam: REGULAR RHYTHM, +S1, +S2. absent: Bradycardia, Tachycardia, Gallop, Rubs, Systolic Murmur - GI/Abdominal Exam GI & Abdominal Exam: Normal Bowel Sounds, Soft. absent: Distended, Firm, Tenderness - Extremities Exam Extremities exam: Positive for: right upper extremity edema Negative for: pedal edema - Neurological Exam Additional comments: AAO X 3. No focal deficits. - Skin Skin Exam: Dry, Normal Color, Warm Additional comments: Abrasions noted on bilateral upper & lower extremities. No burrowing in inte rdigital web spaces Assessment and Plan - Assessment and Plan (Free Text) Assessment: 57 year old female, whose past medical history includes breast cancer, severe COPD, asthma, anxiety, pleural effusions, and CKD presented to the ED for hypoglycemia and is being treated for COPD exacerbation Plan: Acute on Chronic COPD Exacerbation - Likely 2/2 continued tobacco use - CXR 07/12: Volume loss right lung & dense lower lobe consolidation consistent with lobar atelectasis - CT Head 07/12: No acute intracranial abnormalities. No significant findings to account for the clinical presentation. No significant interval change compared to the prior examination - Continue budesonide, arformoterol, duonebs, Solumedrol 40Q8 - Pulmonology, Dr. Santiago following Normocytic Anemia -Hgb: 8.9 from 8.6 on admission. Baseline is 8-9s. -Responded appropriately to transfusion. -Status post 2 U of pRBCS. Inappropriate increase in hemoglobin -Dr. Coker will consider endoscopy, however, will have to be cautious due to patient's respiratory status. Sepsis 2/2 to CAP vs. UTI -Blood culture: gram positive Cocci in Clusters. -Repeat blood culture is negative -CXR: volume loss right lung and dense lower lobe consolidation consistent with atelectasis. -Procalcitonin: 1.83 -UA: moderate LE, negative nitrate, 25-30 WBC, 6-8 epithelial cells. Many yeast seen. -Urine culture: yeast -Leukocytosis resolved. Could have been secondary to steroids -Will obtain echocardiogram to rule out endocarditis. -Continue doxycycline and cefepime. Rule out DVT -Due to swelling of right arm, will obtain duplex ultrasound to rule out DVT Hypoglycemia-resolved - Accuchecks Q2HX12 - Dextrose available in case patient becomes hypoglycemic - Endocrinology consulted, Dr. Hawkins DM-2 - Continue levemir 30SC HS, Lispro 12u ACTID, ISS - Endocrine following DAHLIA on CKD - BUN/Cr: 64/2.3. Creatinine elevated from baseline of 1.5 to 2 - Likely 2/2 diabetic nephropathy - Nephrology following Hyperlipidemia - Continue Lipitor 20mg PO HS Hypertension - Continue home Lopressor 25mg PO BID History of breast cancer -Patient refused chemo and surgery post on cycle of chemo. -Continue to follow heme/onc recommendations Tobacco use disorder -Continue nicotine patch -Counseled at length regarding tobacco cessation Anxiety, depression - Continue home Xanax 0.5mg PO QID PRN, Paxil 5mg PO HS DVT prophylaxis: Heparin 5000 U DVT prophylaxis: protonix 40 mg daily Patient plan discussed with Dr. Rick <Whit Rick - Last Filed: 07/15/18 13:03> Objective - Vital Signs/Intake and Output Vital Signs (last 24 hours): Temp Pulse Resp BP Pulse Ox 98.6 F 89 20 185/65 H 100 07/15/18 12:00 07/15/18 12:00 07/15/18 12:00 07/15/18 12:00 07/15/18 06:00 Intake and Output: 07/15/18 07/15/18 06:59 18:59 Intake Total 1552 Output Total 2240 Balance -688 - Medications Medications: Current Medications Albuterol/Ipratropium (Duoneb 3 Mg/0.5 Mg (3 Ml) Ud) 3 ml IH Q2H PRN PRN Reason: Shortness of Breath Albuterol/Ipratropium (Duoneb 3 Mg/0.5 Mg (3 Ml) Ud) 3 ml IH [id number] [facility] Last Admin: 07/15/18 08:50 Dose: 3 ml Alprazolam (Xanax) 0.5 mg PO QID PRN; Protocol PRN Reason: Anxiety Last Admin: 07/15/18 10:06 Dose: 0.5 mg Arformoterol Tartrate (Brovana) 15 mcg IH [id number] [facility] Last Admin: 07/15/18 08:50 Dose: 15 mcg Aspirin (Ecotrin) 81 mg PO DAILY [facility] Last Admin: 07/15/18 09:59 Dose: 81 mg Atorvastatin Calcium (Lipitor) 20 mg PO HS [facility] Budesonide (Pulmicort Respules) 0.25 mg IH [id number] [facility] Last Admin: 07/15/18 08:50 Dose: 0.25 mg Dextrose (Dextrose 50% Inj) 0 ml IV STAT PRN; Protocol PRN Reason: Hypoglycemia Protocol Doxycycline Hyclate (Doryx) 100 mg PO Q12 [facility]; Protocol Stop: 07/20/18 22:01 Last Admin: 07/15/18 09:59 Dose: 100 mg Heparin Sodium (Porcine) (Heparin) 5,000 units SC Q8 [facility]; Protocol Last Admin: 07/15/18 06:05 Dose: 5,000 units Dextrose (Dextrose 5% In Water 1000 Ml) 1,000 mls @ 0 mls/hr IV .Q0M PRN; Protocol PRN Reason: Hypoglycemia Protocol Cefepime HCl (Maxipime 1gm) 1 gm in 100 mls @ 100 mls/hr IVPB Q24H [facility]; Protocol Stop: 07/21/18 17:16 Last Admin: 07/14/18 22:01 Dose: 100 mls/hr Insulin Detemir (Levemir) 34 unit SC HS [facility] Insulin Human Lispro (Humalog Low) 0 units SC ACHS [facility]; Protocol Last Admin: 07/15/18 12:26 Dose: 3 unit Insulin Human Lispro (Humalog) 14 units SC ACTID [facility] Last Admin: 07/15/18 12:27 Dose: 14 units Methylprednisolone (Solu-Medrol) 40 mg IVP Q12 [facility] Metoprolol Tartrate (Lopressor) 25 mg PO BID [facility] Last Admin: 07/15/18 09:59 Dose: 25 mg Nicotine (Nicoderm Cq) 1 patch TD DAILY [facility] Last Admin: 07/15/18 09:59 Dose: 1 patch Ondansetron HCl (Zofran Inj) 4 mg IVP Q6H PRN PRN Reason: Nausea/Vomiting Pantoprazole Sodium (Protonix Ec Tab) 40 mg PO 0600 [facility] Last Admin: 07/15/18 06:05 Dose: 40 mg Paroxetine HCl (Paxil) 5 mg PO [facility] - Labs Labs: 07/15/18 07:15 07/15/18 07:15 Attending/Attestation - Attestation I have personally seen and examined this patient.: Yes I have fully participated in the care of the patient.: Yes I have reviewed all pertinent clinical information, including history, physical exam and plan: Yes Notes (Text): Patient seen and examined by me with resident at approximately at 8:45AM on 07/15/18. Case including HPI, physical exam, and assessment and plan discussed with resident. Agree with above with following additions/corrections. Patient is a 57 year old female with past medical history significant for severe COPD, asthma, tobacco abuse, pleural effusions, CKD, pneumonia, hypertension, hyperlipidemia, breast cancer, anemia, depression and anxiety, and recurrent UTIs that presented to the emergency room for hypoglycemia. Patient states she is feeling better. Improved shortness of breath. Improved cough. Patient denies chest pain and palpitations. No nausea or vomiting. Complains of mild intermittent abdominal pain. Patient tolerating diet. No fevers or chills. No dysuria. States she is having bowel movements. Physical exam: General: Awake and alert sitting up in bed in no acute distress HEENT: Normocephalic, atraumatic. Extraocular muscles intact, pupils equal and reactive, no scleral icterus. Oropharynx is pink and moist. No pharyngeal erythema or exudate appreciated. Neck is supple. Cardiovascular: Regular rhythm. Normal S1 and S2. No murmurs, rubs, or gallops appreciated Pulmonary: Normal respiratory effort. Decreased breath sounds. No rhonchi, rales, or wheezing appreciated. Gastrointestinal: Soft, nondistended. Nontender when palpated. Positive bowel sounds all 4 quadrants. No guarding. Musculoskeletal: Moves all extremities. No calf tenderness. No edema appreciated. RUE edema Central nervous system: Awake and alert. Dermatologic: Skin warm and dry. Positive bug bites, excoriations, some scabs bilateral forearms, hands, and entire legs. Assessment and plan: Patient is a 57 year old female with past medical history significant for chronic respiratory failure secondary severe COPD on home oxgen, asthma, tobacco abuse, pleural effusions, CKD, pneumonia, hypertension, hyperlipidemia, breast cancer, anemia, depression and anxiety, and recurrent UTIs that presented to the emergency room for hypoglycemia. 1. Acute COPD exacerbation. Continue nebulizer treatments. Continue Pulmicort and Brovana. Continue solumedrol, continue to taper. Continue O2 via nasal cannula. On home oxygen. Pulmonary recommendations appreciated.Chest CT per radiologist showed heterogeneous left breast mass with calcifications with axillary adenopathy compatible with neoplasm with metastases, chronic right thoracic volume loss with subsegmental atelectasis of the right upper and lower lobes, partially enlarged upper abdominal lymph nodes compatible with metastases. Patient counseled at length on tobacco cessation. 2. Sepsis. Gram Positive bacteremia. Blood cultures positive for gram postiive cocci in clusters. Repeat blood cultures with no growth for 24 hours. Urine culture positive for yeast. Procalcitonin 1.83. Leukocytosis resolved. Afebrile. Continue Doxycycline and Cefepime. Chest xray per radiologist showed volume loss right lung and dense lower lobe consolidation consistent with lobar atelectasis. 3. Hypoglycemia. Resolved. Endocrinology team following, recommendations appreciated. Continue to monitor accuchecks. 4. Acute kidney injury on Chronic Kidney disease. S/P IV fluids. Creatinine stable. 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 5. Hyperkalemia. Resovled. S/P albuterol and calcium gluconate. Continue to monitor. 6. Anemia. Likely secondary to malignancy and chronic disease. S/P 1 units PRBCs 07/13/18. S/P 1 unit PRBC today. H&H improved. Hem/onc recommendations appr eciated. GI recommendations appreciated. Pending CT abd/pelvis. History of grade D esophageal ulcerations. Stool for occult blood negative. Continue to monitor CBC. 7. DM2. Now with hyperglycemia. Likely secondary to steroids. Continue insulin sliding scale. Continue insulin per endocrinology team. Continue to monitor accuchecks. 8. Essential hypertension. Continue Metoporolol 9. Hyperlipidemia. Continue lipitor. 10. RUE edema. Follow-up venous Doppler to rule out DVT. 11. Metastatic breast cancer. Patient refused chemo and surgery post one cycle of chemo. Chest CT as above, discussed with patient. CEA elevated at 23.2 Hem/onc following, recommendations appreciated. 12. Depression and Anxiety. Continue Paxil 5 mg at bedtime. Continue Xanax as needed. 13. Tobacco abuse. Patient was counseled at length on tobacco cessation. Continue with nicotine patch. 14. Bug bites. Has bed bugs at home. S/P shower and off isolation. 15. GI/DVT prophylaxis. Protonix/heparin 16. Patient is DNR/DNI. Palliative care recommendations appreciated. Case was discussed in detail with the patient regarding current diagnosis and treatment plan.All questions answered.
--- NOTE | 2018-07-15 09:55 | CP.PCM.PN ---
Subjective - Date & Time of Evaluation Date of Evaluation: 07/15/18 - Subjective Subjective: PGY-4 GI Fellow Prog Note five-point review of systems negative other than stated above Objective - Vital Signs/Intake and Output Vital Signs (last 24 hours): Temp Pulse Resp BP Pulse Ox 97.8 F 79 18 160/64 H 100 07/15/18 06:00 07/15/18 06:00 07/15/18 06:00 07/15/18 06:00 07/15/18 06:00 Intake and Output: 07/15/18 07/15/18 06:59 18:59 Intake Total 1552 Output Total 2240 Balance -688 - Medications Medications: Current Medications Albuterol/Ipratropium (Duoneb 3 Mg/0.5 Mg (3 Ml) Ud) 3 ml IH Q2H PRN PRN Reason: Shortness of Breath Albuterol/Ipratropium (Duoneb 3 Mg/0.5 Mg (3 Ml) Ud) 3 ml IH [id number] [facility] Last Admin: 07/15/18 08:50 Dose: 3 ml Alprazolam (Xanax) 0.5 mg PO QID PRN; Protocol PRN Reason: Anxiety Last Admin: 07/15/18 02:00 Dose: 0.5 mg Arformoterol Tartrate (Brovana) 15 mcg IH [id number] [facility] Last Admin: 07/15/18 08:50 Dose: 15 mcg Aspirin (Ecotrin) 81 mg PO DAILY [facility] Last Admin: 07/14/18 10:07 Dose: 81 mg Atorvastatin Calcium (Lipitor) 20 mg PO HS [facility] Budesonide (Pulmicort Respules) 0.25 mg IH [id number] [facility] Last Admin: 07/15/18 08:50 Dose: 0.25 mg Dextrose (Dextrose 50% Inj) 0 ml IV STAT PRN; Protocol PRN Reason: Hypoglycemia Protocol Doxycycline Hyclate (Doryx) 100 mg PO Q12 [facility]; Protocol Stop: 07/20/18 22:01 Last Admin: 07/14/18 22:02 Dose: 100 mg Heparin Sodium (Porcine) (Heparin) 5,000 units SC Q8 [facility]; Protocol Last Admin: 07/15/18 06:05 Dose: 5,000 units Dextrose (Dextrose 5% In Water 1000 Ml) 1,000 mls @ 0 mls/hr IV .Q0M PRN; Protocol PRN Reason: Hypoglycemia Protocol Cefepime HCl (Maxipime 1gm) 1 gm in 100 mls @ 100 mls/hr IVPB Q24H [facility]; Protocol Stop: 07/21/18 17:16 Last Admin: 07/14/18 22:01 Dose: 100 mls/hr Vancomycin HCl (Vancomycin 1gm) 1 gm in 250 mls @ 167 mls/hr IVPB STAT [facility]; Protocol Stop: 07/15/18 11:01 Insulin Detemir (Levemir) 34 unit SC HS [facility] Insulin Human Lispro (Humalog Low) 0 units SC ACHS [facility]; Protocol Last Admin: 07/15/18 08:10 Dose: Not Given Insulin Human Lispro (Humalog) 14 units SC ACTID [facility] Methylprednisolone (Solu-Medrol) 40 mg IVP Q8H [facility] Last Admin: 07/15/18 02:01 Dose: 40 mg Metoprolol Tartrate (Lopressor) 25 mg PO BID [facility] Last Admin: 07/14/18 17:57 Dose: 25 mg Nicotine (Nicoderm Cq) 1 patch TD DAILY [facility] Last Admin: 07/14/18 10:07 Dose: 1 patch Ondansetron HCl (Zofran Inj) 4 mg IVP Q6H PRN PRN Reason: Nausea/Vomiting Pantoprazole Sodium (Protonix Ec Tab) 40 mg PO 0600 [facility] Last Admin: 07/15/18 06:05 Dose: 40 mg Paroxetine HCl (Paxil) 5 mg PO HS [facility] - Labs Labs: 07/15/18 07:15 07/15/18 07:15 Assessment and Plan - Assessment and Plan (Free Text) Assessment: 49-year-old white female with a past medical history of breast cancer, COPD, anxiety, CKD admitted for hypoglycemia, DAHLIA and COPD flare. #Acute on chronic normocytic anemia: suspect multifactorial in nature related to anemia of chronic disease and the setting of breast cancer and CKD. Furthermore, patient has a history of LA-D esophagitis, gastritis and duodenitis without follow-up EGD. No signs of over GI bleeding at this time. Plan: - Await CT Abd+Pelvis w/PO contrast - Pt is high risk from endoscopic evaluation; will consider pending course - Cont daily PPI - Monitor labs Patient discussed with Dr. Coker. Please attestation for further recommendations/changes
[2018-07-15] MEDS ORDERED: Barium Sulfate Susp 2.1% w/v, 2.0% w/w 450 mL Bottle PO ONE (10:15)
--- NOTE | 2018-07-15 10:25 | PN ---
DATE: 07/15/2018 ENDO FOLLOWUP NOTE LOCATION: In room 269. SUBJECTIVE: This is the 57-year-old female with recent uncontrolled type II insulin requiring diabetes presenting here after with symptomatic hypoglycemia and now with supervening hyperglycemic accelerations with the initiation of IV steroids therapy for acute exacerbation of COPD. She is currently on Solu-Medrol at 40 mg IV every 8 hour as given. Her glycemic levels overnight are fluctuating and have ranged 232, 242 and 246 mg/dL. LABORATORY DATA: Her chemistry showed a BUN of 58, sodium 142, potassium 4.7, chloride 110, CO2 of 22, glucose 336 and creatinine 2.4. ASSESSMENT: This is a 57-year-old female with uncontrolled and decompensated type II insulin-requiring diabetes with recent hyperglycemic accelerations and concomitant acute exacerbation of chronic obstructive pulmonary disease and is currently on IV steroid therapy which contributes to the increased insulin resistance thereof. PLAN OF MANAGEMENT: We will modify the current basal and bolus insulin regiment and increase her Humalog to 14 units t.i.d. before meals as ordered and this will be started today. We will also titrate her Levemir to 34 units subcutaneous at bedtime daily starting tonight. We will obtain serial chemistries and supplement accordingly as needed. We will follow. Ernestina Hawkins MD
--- NOTE | 2018-07-15 15:00 | PN ---
DATE: 07/15/2018 SUBJECTIVE: The patient is in bed in no acute distress. She is awake and alert. She denies any fevers and chills at home. Her presentation was only of shortness of breath. PHYSICAL EXAMINATION: VITAL SIGNS: Temperature is 97, blood pressure is 160/60, respiratory 19, heart rate of 83. HEENT: Unremarkable. NECK: Supple. LUNGS: Have decreased breath sounds. HEART: Normal S1 and S2. ABDOMEN: Soft and nontender. LABORATORY DATA: Reveals the patient's white count is 5.3, hemoglobin of 8. Chemistries reveals the creatinine is 2.3. Urinalysis is noted. Blood cultures reveals two bottles that are coag-negative staph. The repeat blood cultures from 07/13/2018 are no growth. Urine culture had yeast. MEDICATIONS: Review of orders reveals the patient to be on doxycycline, cefepime, was given a dose of vancomycin. ASSESSMENT AND PLAN: This is a 57-year-old female with breast cancer, chronic obstructive lung disease, anxiety, pleural effusion, kidney disease, admitted with hypoglycemia, severe sepsis with coag-negative staph bacteremia. The patient does have a Port-A-Cath on her right chest, it is several years old. We will check on the echo. We will give another dose of vancomycin, check on her repeat blood cultures, and order a vancomycin random level for tomorrow. I doubt no deep-seated infection or a Port-A-Cath infection since the repeat cultures were clear within 24 hours. We will also order an ultrasound of the right subclavian and the right arm to rule out a thrombus. We will follow with you. Prasanth Malcolm MD
--- NOTE | 2018-07-15 15:32 | CT ---
Date of service: 07/15/2018 PROCEDURE: CT Abdomen and Pelvis without intravenous contrast HISTORY: h/o malignancy, anemia COMPARISON: CT scan of the chest, abdomen and pelvis dated 07/28/2017 TECHNIQUE: Contiguous images were obtained from the domes of the diaphragms to the upper thighs without the administration of intravenous contrast. Oral contrast was administered. Radiation dose: Total exam DLP = 705.11 mGy-cm. This CT exam was performed using one or more of the following dose reduction techniques: Automated exposure control, adjustment of the mA and/or kV according to patient size, and/or use of iterative reconstruction technique. FINDINGS: LOWER THORAX: Right thoracic volume loss with right middle lobar atelectasis. Improved aeration involving the right middle lobe with residual right lower lobe subsegmental atelectasis. LIVER: Hepatomegaly. No gross lesion or ductal dilatation. GALLBLADDER AND BILE DUCTS: Calcified cholelithiasis without wall thickening or pericholecystic fluid. PANCREAS: Unremarkable. No gross lesion or ductal dilatation. SPLEEN: Unremarkable. ADRENALS: Unremarkable. No mass. KIDNEYS AND URETERS: Bilateral hydroureter without hydronephrosis. Multiple parapelvic cysts.. No hydronephrosis. No solid mass. VASCULATURE: Unremarkable. No aortic aneurysm. No aortic atherosclerotic calcification or mural plaque present. BOWEL: Unremarkable. No obstruction. No gross mural thickening. APPENDIX: Unremarkable. Normal appendix. PERITONEUM: Unremarkable. No free fluid. No free air. LYMPH NODES: Presumed prominent portacaval and gastrohepatic ligament lymph node. BLADDER: Distended bladder. REPRODUCTIVE: Unremarkable. BONES: Stable L4 superior endplate depression. No acute fracture. OTHER FINDINGS: None. IMPRESSION: No acute abdominal pelvic pathology. Bilateral hydroureter without hydronephrosis. Multiple parapelvic cysts. No urolithiasis. Prominent presumed portacaval and gastrohepatic ligament lymph node. Additional findings as above.
--- NOTE | 2018-07-15 16:42 | PN ---
DATE: 07/15/2018 This is [facility] visit on the telemetry floor. For Dr. Gleason, SUBJECTIVE: The patient is a 57-year-old female seen resting in bed, admitted for mental status change with hypoglycemia with the patient noted to have severe anemic indices for which she was transfused one unit of packed red blood cells two days prior and an additional unit yesterday with good effect, improving her hemoglobin from 7.7 to 8.9 this visit. At present, she is in no acute distress with the patient known to suffer from a probable neoplastic change in left breast and axilla for which she is also being evaluated. PHYSICAL EXAMINATION VITAL SIGNS: Temperature 98.6, pulse 89, respirations 20, blood pressure 185/65, and pulse ox of 100%. HEENT: Unremarkable. NECK: Supple. HEART: Regular rate. LUNGS: Decreased breath sounds. ABDOMEN: Obese, soft, and nontender. EXTREMITIES: No edema. SKIN: Warm and dry. NEUROLOGIC: Somnolent, but arousable. LABORATORY DATA: The patient's labs were done. Red blood cell count 5.3, hemoglobin 8.9 improved from 7.5 two days prior after two units of packed red blood cell given, hematocrit of 28.6, and platelet count of 260,000 today. Metabolic panel showing a BUN of 64, creatinine of 2.3, non-fasting glucose of 360 with a calcium of 7.8. Her CEA value is reported at 23.2 with a CA 15-3 value pending. ASSESSMENT: Hyperglycemia with sepsis/early pneumonia, anemia of chronic disease rule out gastrointestinal bleed status post transfusion, abnormal CT scan suspicious for neoplastic change breast and axilla, history of invasive ductal carcinoma in 2016, uncontrolled diabetes mellitus, chronic kidney disease, history of drug abuse, history of bladder tumor? and chronic obstructive pulmonary disease. PLAN: After conversation with Dr. Gleason is to continue present medical regimen. We will monitor clinically with labs with her CT scan of her chest done two days prior, now read as heterogeneous left breast mass with calcifications with axillary adenopathy compliable with neoplasm with metastasis, chronic right thoracic volume loss with subsegmental atelectasis of the right upper and lower lobes, partially enlarged upper abdominal lymph nodes compatible with metastasis. tumor markers have so far returned. Further recommends depend on the patient being amenable to treatment as she has refused treatment in the past as noted above. This is a complex patient with a comprehensive medically necessary and appropriate visit carried out in excess of 25 minutes. Juan Jose Valles MD
[2018-07-15] MEDS: Cefepime 1gm in NS 100ml 1 GM/100 ML BAG IVPB SCH (18:41)
[2018-07-15] MEDS: Insulin Detemir 100 units/ml Vial (Levemir) SC SCH (22:51)
[2018-07-16] MEDS: Albuterol-Ipratrop 3 mg / 0.5 (3 ml) UD IH SCH ×4 (02:10→20:45)
[2018-07-16] MEDS: Pantoprazole 40 mg EC Tab PO SCH (06:11)
--- NOTE | 2018-07-16 07:50 | CP.PCM.PN ---
Subjective - Date & Time of Evaluation Date of Evaluation: 07/16/18 Time of Evaluation: 07:49 - Subjective Subjective: PGY-[address] Hawkins Pt is motivated to go home, breathing much improved, no acute complaints Objective - Vital Signs/Intake and Output Vital Signs (last 24 hours): Temp Pulse Resp BP Pulse Ox 98.3 F 74 20 162/63 H 100 07/16/18 06:00 07/16/18 06:00 07/16/18 06:00 07/16/18 06:00 07/16/18 06:00 Intake and Output: 07/16/18 07/16/18 06:59 18:59 Intake Total 3300 Output Total 2900 Balance 400 - Medications Medications: Current Medications Albuterol/Ipratropium (Duoneb 3 Mg/0.5 Mg (3 Ml) Ud) 3 ml IH Q2H PRN PRN Reason: Shortness of Breath Albuterol/Ipratropium (Duoneb 3 Mg/0.5 Mg (3 Ml) Ud) 3 ml IH [id number] [facility] Last Admin: 07/16/18 02:10 Dose: Not Given Alprazolam (Xanax) 0.5 mg PO QID PRN; Protocol PRN Reason: Anxiety Last Admin: 07/15/18 14:21 Dose: 0.5 mg Arformoterol Tartrate (Brovana) 15 mcg IH [id number] [facility] Last Admin: 07/15/18 20:00 Dose: 15 mcg Aspirin (Ecotrin) 81 mg PO DAILY [facility] Last Admin: 07/15/18 09:59 Dose: 81 mg Atorvastatin Calcium (Lipitor) 20 mg PO [facility] Budesonide (Pulmicort Respules) 0.25 mg IH [id number] [facility] Last Admin: 07/15/18 20:01 Dose: 0.25 mg Dextrose (Dextrose 50% Inj) 0 ml IV STAT PRN; Protocol PRN Reason: Hypoglycemia Protocol Doxycycline Hyclate (Doryx) 100 mg PO Q12 [facility]; Protocol Stop: 07/20/18 22:01 Last Admin: 07/15/18 22:50 Dose: 100 mg Heparin Sodium (Porcine) (Heparin) 5,000 units SC Q8 [facility]; Protocol Last Admin: 07/16/18 06:12 Dose: 5,000 units Dextrose (Dextrose 5% In Water 1000 Ml) 1,000 mls @ 0 mls/hr IV .Q0M PRN; Protocol PRN Reason: Hypoglycemia Protocol Cefepime HCl (Maxipime 1gm) 1 gm in 100 mls @ 100 mls/hr IVPB Q24H [facility]; Protocol Stop: 07/21/18 17:16 Last Admin: 07/15/18 18:41 Dose: 100 mls/hr Insulin Detemir (Levemir) 34 unit SC HS [facility] Last Admin: 07/15/18 22:51 Dose: 34 unit Insulin Human Lispro (Humalog Low) 0 units SC ACHS [facility]; Protocol Last Admin: 07/15/18 22:51 Dose: Not Given Insulin Human Lispro (Humalog) 14 units SC ACTID [facility] Last Admin: 07/15/18 18:40 Dose: 14 units Methylprednisolone (Solu-Medrol) 40 mg IVP Q12 [facility] Last Admin: 07/15/18 22:52 Dose: 40 mg Metoprolol Tartrate (Lopressor) 25 mg PO BID [facility] Last Admin: 07/15/18 18:41 Dose: 25 mg Nicotine (Nicoderm Cq) 1 patch TD DAILY [facility] Last Admin: 07/15/18 09:59 Dose: 1 patch Ondansetron HCl (Zofran Inj) 4 mg IVP Q6H PRN PRN Reason: Nausea/Vomiting Pantoprazole Sodium (Protonix Ec Tab) 40 mg PO 0600 [facility] Last Admin: 07/16/18 06:11 Dose: 40 mg Paroxetine HCl (Paxil) 5 mg PO [facility] - Labs Labs: 07/15/18 07:15 07/15/18 07:15 - Constitutional Appears: No Acute Distress - Head Exam Head Exam: ATRAUMATIC, NORMAL INSPECTION, NORMOCEPHALIC - Eye Exam Eye Exam: EOMI, Normal appearance, PERRL. absent: Scleral icterus Pupil Exam: NORMAL ACCOMODATION - ENT Exam ENT Exam: Mucous Membranes Moist - Neck Exam Neck Exam: Normal Inspection Additional comments: supple - Respiratory Exam Respiratory Exam: Clear to Ausculation Bilateral. absent: Rales, Rhonchi, Wheezes - Cardiovascular Exam Cardiovascular Exam: REGULAR RHYTHM, +S1, +S2 - GI/Abdominal Exam GI & Abdominal Exam: Soft, Normal Bowel Sounds. absent: Tenderness - Extremities Exam Extremities Exam: Pedal Edema (slight). absent: Calf Tenderness - Back Exam Back Exam: absent: CVA tenderness (L), CVA tenderness (R) - Neurological Exam Neurological Exam: Alert, Awake, Oriented x3 - Psychiatric Exam Psychiatric exam: Normal Affect, Normal Mood - Skin Skin Exam: Dry, Warm Assessment and Plan - Assessment and Plan (Free Text) Plan: Ms Randolph, 57F, active smoker 3 ppd x 40 years, chronic COPD on 3L o2 home, Recurrent R pleural effusion and hx breast ca, was brought in by EMS for AMS and hypoglycemia 40 in the field. She had decreased appetite recently. She has hx breast ca s/p mastectomy, chemo, recurrent R pleural effusion, R port-a-cath for several years. She was found to have severe sepsis with coag-neg staph bactermia, repeated culture negative, pending US R arm/subclavian vein to r/o thrombus. She was severely anemic, s/p 2u pRBC. Hypoglycemia - resolved Accelearated hyperglycemia due to steroid induced insulin resistance - solumedrol taper to 40q12 Decreased appetite A1C 7.3 TSH normal (Apr 2018) - 34 Levemir HS, standing lispro 14 actid, ISSS-low starting BG>300 - carb consist diet - As steroid tapers in the coming week, insulin requirement may change accordingly. Please follow up with primary care doctor to adjust doses to prevent hypoglycemia (Home regimen: 30 Levemir only) s/r/d/w Dr Hawkins
[2018-07-16] MEDS: Arformoterol 15 mcg/2 ml Inh Sol IH SCH ×2 (07:56→20:45)
[2018-07-16] MEDS: Budesonide 0.25 mg/2 ml Inhal Susp UD IH SCH ×2 (07:56→20:45)
[2018-07-16 08:17] LABS: HEMOGLOBIN 8.8 g/dL (12.0-16.0); LYMPH # 0.8 (1.2-3.4); LYMPH % 12.9 % (22.0-35.0); MEAN CELL VOLUME 89.1 fl (80.0-105.0); MEAN CORPUSCULAR HEMOGLOBIN 27.5 pg (25.0-35.0); MEAN CORPUSCULAR HGB CONC 30.9 g/dl (31.0-37.0); MEAN PLATELET VOLUME 9.8 fl (7.0-11.0); MONO # 0.7 (0.1-0.6); MONO % 11.6 % (1.0-6.0); RBC 3.2 10^6/uL (3.5-6.1); RED CELL DISTRIBUTION WIDTH 16.5 % (11.5-14.5); WHITE BLOOD COUNT 6.1 10^3/uL (4.5-11.0)
[2018-07-16] MEDS: Insulin Lispro (humaLOG) LOW Coverage SC SCH ×4 (08:28→21:35)
[2018-07-16 08:30] LABS: ALB/GLOB RATIO 1.1 (1.1-1.8); ALBUMIN 3.3 g/dL (3.0-4.8); CALCIUM 7.7 mg/dL (8.4-10.5)
[2018-07-16] MEDS: Insulin Lispro 1 UNITS/0.01 ML SC SCH ×3 (08:43→17:11)
--- NOTE | 2018-07-16 08:48 | CP.PCM.PN ---
Subjective - Date & Time of Evaluation Date of Evaluation: 07/16/18 Time of Evaluation: 06:00 - Subjective Subjective: George Mullins PGY2 Heme/Onc Progress Note for Dr. Gleason Patient seen and examined bedside in AM. No acute issues overnight. Patient denies abdominal pain, s/p 2 units PRBC. denies any other complaints. Objective - Vital Signs/Intake and Output Vital Signs (last 24 hours): Temp Pulse Resp BP Pulse Ox 98.3 F 74 20 162/63 H 100 07/16/18 06:00 07/16/18 06:00 07/16/18 06:00 07/16/18 06:00 07/16/18 06:00 Intake and Output: 07/16/18 07/16/18 06:59 18:59 Intake Total 3300 Output Total 2900 Balance 400 - Medications Medications: Current Medications Albuterol/Ipratropium (Duoneb 3 Mg/0.5 Mg (3 Ml) Ud) 3 ml IH Q2H PRN PRN Reason: Shortness of Breath Albuterol/Ipratropium (Duoneb 3 Mg/0.5 Mg (3 Ml) Ud) 3 ml IH [id number] [facility] Last Admin: 07/16/18 07:56 Dose: 3 ml Alprazolam (Xanax) 0.5 mg PO QID PRN; Protocol PRN Reason: Anxiety Last Admin: 07/15/18 14:21 Dose: 0.5 mg Arformoterol Tartrate (Brovana) 15 mcg IH [id number] [facility] Last Admin: 07/16/18 07:56 Dose: 15 mcg Aspirin (Ecotrin) 81 mg PO DAILY [facility] Last Admin: 07/15/18 09:59 Dose: 81 mg Atorvastatin Calcium (Lipitor) 20 mg PO HS [facility] Budesonide (Pulmicort Respules) 0.25 mg IH [id number] [facility] Last Admin: 07/16/18 07:56 Dose: 0.25 mg Dextrose (Dextrose 50% Inj) 0 ml IV STAT PRN; Protocol PRN Reason: Hypoglycemia Protocol Doxycycline Hyclate (Doryx) 100 mg PO Q12 [facility]; Protocol Stop: 07/20/18 22:01 Last Admin: 07/15/18 22:50 Dose: 100 mg Heparin Sodium (Porcine) (Heparin) 5,000 units SC Q8 [facility]; Protocol Last Admin: 07/16/18 06:12 Dose: 5,000 units Dextrose (Dextrose 5% In Water 1000 Ml) 1,000 mls @ 0 mls/hr IV .Q0M PRN; Protocol PRN Reason: Hypoglycemia Protocol Cefepime HCl (Maxipime 1gm) 1 gm in 100 mls @ 100 mls/hr IVPB Q24H [facility]; Protocol Stop: 07/21/18 17:16 Last Admin: 07/15/18 18:41 Dose: 100 mls/hr Insulin Detemir (Levemir) 34 unit SC HS [facility] Last Admin: 07/15/18 22:51 Dose: 34 unit Insulin Human Lispro (Humalog Low) 0 units SC ACHS [facility]; Protocol Last Admin: 07/16/18 08:28 Dose: Not Given Insulin Human Lispro (Humalog) 14 units SC ACTID [facility] Last Admin: 07/16/18 08:43 Dose: 14 units Methylprednisolone (Solu-Medrol) 40 mg IVP Q12 [facility] Last Admin: 07/15/18 22:52 Dose: 40 mg Metoprolol Tartrate (Lopressor) 25 mg PO BID [facility] Last Admin: 07/15/18 18:41 Dose: 25 mg Nicotine (Nicoderm Cq) 1 patch TD DAILY [facility] Last Admin: 07/15/18 09:59 Dose: 1 patch Ondansetron HCl (Zofran Inj) 4 mg IVP Q6H PRN PRN Reason: Nausea/Vomiting Pantoprazole Sodium (Protonix Ec Tab) 40 mg PO 0600 [facility] Last Admin: 07/16/18 06:11 Dose: 40 mg Paroxetine HCl (Paxil) 5 mg PO [facility] - Labs Labs: 07/16/18 07:00 07/16/18 07:00 - Constitutional Appears: Non-toxic, No Acute Distress - Head Exam Head Exam: ATRAUMATIC, NORMAL INSPECTION, NORMOCEPHALIC - Eye Exam Eye Exam: EOMI, Normal appearance - Respiratory Exam Respiratory Exam: NORMAL BREATHING PATTERN - Cardiovascular Exam Cardiovascular Exam: REGULAR RHYTHM, +S1, +S2 - GI/Abdominal Exam GI & Abdominal Exam: Soft. absent: Tenderness - Exam Exam: absent: Testicular Vertical Lie - Neurological Exam Neurological Exam: Alert, Awake, Oriented x3 Assessment and Plan - Assessment and Plan (Free Text) Plan: Hx L breast cancer invasive ductal carcinoma -ER+/HER2+ -has received treatment in past then refused treatment -follow up as outpatient -Chest CT:Heterogeneous left breast mass with calcifications with axillary adenopathy compatible with neoplasm with metastases. Chronic right thoracic volume loss with subsegmental atelectasis of the right upper and lower lobes. Partially enlarged upper abdominal lymph nodes compatible with metastases. -Abdominal /Pelvis/CT: Bilateral hydroureter without hydronephrosis. Multiple parapelvic cysts. No urolithiasis. Prominent presumed portacaval and gastrohepatic ligament lymph node. COPD -monitor -Chest xray showed: Volume loss right lung and dense lower lobe consolidation consistent with lobar atelectasis Anemia -hgb 8.8 -s/p 2 units -monitor -GI consulted, follow recs Sepsis -ID following -continue abx
--- NOTE | 2018-07-16 08:49 | PN ---
DATE: 07/13/2018 SUBJECTIVE: The patient was seen earlier this morning, at that time she was in room 260, bed 1. No fevers. No chills. She is doing better. Breathing is much improved. OBJECTIVE: VITAL SIGNS: Temperature is 98, blood pressure is 111/50, and respiratory rate of 18. HEENT: Unremarkable. NECK: Supple. LUNGS: Have decreased breath sounds. HEART: Normal S1 and S2. ABDOMEN: Soft and nontender. LABORATORY DATA: Reveals a white count of 11,000, hemoglobin of 7, and platelets of 327. Chemistries are noted with a creatinine of 2.6. Procalcitonin of 1.83. Urinalysis is noted. Microbiology reveals the Gram-positive cocci in cluster in one bottle, coag-negative Staph by PNA FISH. The other bottle blood cultures are no growth. Urine cultures are negative. REVIEW OF ORDERS: Reveals the patient to be on doxycycline IV and cefepime and Solu-Medrol. Microbiology is noted. ASSESSMENT AND PLAN: This is a 57-year-old female with history of breast cancer, chronic obstructive pulmonary disease, anxiety, pleural effusion, kidney disease, substance abuse, and admitted with hypoglycemia, short of breath and with severe sepsis secondary to healthcare-associated pneumonia with acute kidney injury on top of chronic kidney injury, on doxycycline and Maxipime with a Gram-positive cocci in one bottle of coag-negative Staphylococcus, most likely a contamination, but we will order a repeat blood cultures and we will change the doxycycline to p.o. We will follow with you. Prasanth Malcolm MD
--- NOTE | 2018-07-16 09:40 | US ---
PROCEDURE: Right upper extremity venous US CLINICAL HISTORY: Arm pain and swelling Evaluate for deep venous thrombosis. PHYSICIAN(S): Warren Olivera M.D FINDINGS: The visualized rightinternal jugular vein is sonographically normal and compressible. No evidence of obstruction or thrombus is seen. The 2 catheters in the right internal jugular vein. No significant pericatheter thrombus is appreciated The visualized segments of the right subclavian vein are patent with normal waveforms. No sonographic evidence of obstruction or thrombosis is seen. The visualized deep venous system of the proximal right upper extremity is sonographically normal and compressible. IMPRESSION: 1. No sonographic evidence for deep venous thrombosis in the visualized segments of the right upper extremity.
--- NOTE | 2018-07-16 09:56 | CP.PCM.PN ---
<Rajinder Romano - Last Filed: 07/16/18 16:50> Subjective - Date & Time of Evaluation Date of Evaluation: 07/16/18 Time of Evaluation: 07:55 - Subjective Subjective: PGY6 GI Fellow Progress Note Patient seen and examined bedside this morning. The patient denies any abdominal pain and has just finished eating her entire breakfast tray without issue. No overt episodes of blood loss (hematochezia, melena, hematemesis, epistaxis, h ematuria). Denies fever, chills. 12 system ROS performed and negative except where stated Objective - Vital Signs/Intake and Output Vital Signs (last 24 hours): Temp Pulse Resp BP Pulse Ox 98.3 F 74 20 162/63 H 100 07/16/18 06:00 07/16/18 06:00 07/16/18 06:00 07/16/18 06:00 07/16/18 06:00 Intake and Output: 07/16/18 07/16/18 06:59 18:59 Intake Total 3300 Output Total 2900 Balance 400 - Medications Medications: Current Medications Albuterol/Ipratropium (Duoneb 3 Mg/0.5 Mg (3 Ml) Ud) 3 ml IH Q2H PRN PRN Reason: Shortness of Breath Albuterol/Ipratropium (Duoneb 3 Mg/0.5 Mg (3 Ml) Ud) 3 ml IH [id number] [facility] Last Admin: 07/16/18 07:56 Dose: 3 ml Alprazolam (Xanax) 0.5 mg PO QID PRN; Protocol PRN Reason: Anxiety Last Admin: 07/15/18 14:21 Dose: 0.5 mg Arformoterol Tartrate (Brovana) 15 mcg IH [id number] [facility] Last Admin: 07/16/18 07:56 Dose: 15 mcg Aspirin (Ecotrin) 81 mg PO DAILY [facility] Last Admin: 07/15/18 09:59 Dose: 81 mg Atorvastatin Calcium (Lipitor) 20 mg PO HS [facility] Budesonide (Pulmicort Respules) 0.25 mg IH [id number] [facility] Last Admin: 07/16/18 07:56 Dose: 0.25 mg Dextrose (Dextrose 50% Inj) 0 ml IV STAT PRN; Protocol PRN Reason: Hypoglycemia Protocol Doxycycline Hyclate (Doryx) 100 mg PO Q12 [facility]; Protocol Stop: 07/20/18 22:01 Last Admin: 07/15/18 22:50 Dose: 100 mg Heparin Sodium (Porcine) (Heparin) 5,000 units SC Q8 [facility]; Protocol Last Admin: 07/16/18 06:12 Dose: 5,000 units Dextrose (Dextrose 5% In Water 1000 Ml) 1,000 mls @ 0 mls/hr IV .Q0M PRN; Protocol PRN Reason: Hypoglycemia Protocol Cefepime HCl (Maxipime 1gm) 1 gm in 100 mls @ 100 mls/hr IVPB Q24H [facility]; Protocol Stop: 07/21/18 17:16 Last Admin: 07/15/18 18:41 Dose: 100 mls/hr Insulin Detemir (Levemir) 34 unit SC HS [facility] Last Admin: 07/15/18 22:51 Dose: 34 unit Insulin Human Lispro (Humalog Low) 0 units SC ACHS [facility]; Protocol Last Admin: 07/16/18 08:28 Dose: Not Given Insulin Human Lispro (Humalog) 14 units SC ACTID [facility] Last Admin: 07/16/18 08:43 Dose: 14 units Methylprednisolone (Solu-Medrol) 40 mg IVP Q12 [facility] Last Admin: 07/15/18 22:52 Dose: 40 mg Metoprolol Tartrate (Lopressor) 25 mg PO BID [facility] Last Admin: 07/15/18 18:41 Dose: 25 mg Nicotine (Nicoderm Cq) 1 patch TD DAILY [facility] Last Admin: 07/15/18 09:59 Dose: 1 patch Ondansetron HCl (Zofran Inj) 4 mg IVP Q6H PRN PRN Reason: Nausea/Vomiting Pantoprazole Sodium (Protonix Ec Tab) 40 mg PO 0600 [facility] Last Admin: 07/16/18 06:11 Dose: 40 mg Paroxetine HCl (Paxil) 5 mg PO HS [facility] - Labs Labs: 07/16/18 07:00 07/16/18 07:00 - Constitutional Appears: Non-toxic, No Acute Distress - Eye Exam Eye Exam: EOMI, PERRL - ENT Exam ENT Exam: Mucous Membranes Moist - Respiratory Exam Respiratory Exam: Clear to Ausculation Bilateral. absent: Rales, Rhonchi, Wheezes - Cardiovascular Exam Cardiovascular Exam: RRR, +S1, +S2 - GI/Abdominal Exam GI & Abdominal Exam: Soft, Normal Bowel Sounds. absent: Distended, Firm, Guarding, Rigid, Tenderness, Organomegaly - Extremities Exam Extremities Exam: Normal Inspection. absent: Pedal Edema - Neurological Exam Neurological Exam: Alert, Awake, Oriented x3 - Psychiatric Exam Psychiatric exam: Anxious - Skin Skin Exam: Dry, Warm Assessment and Plan - Assessment and Plan (Free Text) Assessment: Patient is a 49yo female with PMHx significant for invasive ductal carcinoma of the left breast with prior chemotherapy, COPD, CKD, anxiety who was admitted for hypoglycemia, altered mentation and COPD exacerbation. -Chronic normocytic anemia -Left breast cancer -COPD -CKD -Anxiety Plan: -Suspect anemia to be multifactorial with CKD and chronic illness (breast cancer) -Prior chemotherapy >2 years ago per patient - malignancy noted in left breast - plan per oncology/patient preference -No overt GI bleeding since admission -Recommend ongoing supportive care -Patient has had two prior endoscopies with most recent 1 year ago - esophagitis noted -Ongoing PPI therapy as ordered -Consider endoscopic evaluation prior to D/C; will discuss with patient -Diet as tolerated <Gerald Coker V - Last Filed: 07/16/18 20:14> Objective - Vital Signs/Intake and Output Vital Signs (last 24 hours): Temp Pulse Resp BP Pulse Ox 98 F 88 18 138/62 100 07/16/18 12:00 07/16/18 17:58 07/16/18 12:00 07/16/18 17:09 07/16/18 06:00 Intake and Output: 07/16/18 07/17/18 18:59 06:59 Intake Total 100 Balance 100 - Medications Medications: Current Medications Albuterol/Ipratropium (Duoneb 3 Mg/0.5 Mg (3 Ml) Ud) 3 ml IH Q2H PRN PRN Reason: Shortness of Breath Albuterol/Ipratropium (Duoneb 3 Mg/0.5 Mg (3 Ml) Ud) 3 ml IH [id number] [facility] Last Admin: 07/16/18 14:37 Dose: 3 ml Alprazolam (Xanax) 0.5 mg PO QID PRN; Protocol PRN Reason: Anxiety Last Admin: 07/16/18 09:59 Dose: 0.5 mg Arformoterol Tartrate (Brovana) 15 mcg IH [id number] [facility] Last Admin: 07/16/18 07:56 Dose: 15 mcg Aspirin (Ecotrin) 81 mg PO DAILY [facility] Last Admin: 07/16/18 09:58 Dose: 81 mg Atorvastatin Calcium (Lipitor) 20 mg PO HS [facility] Budesonide (Pulmicort Respules) 0.25 mg IH [id number] [facility] Last Admin: 07/16/18 07:56 Dose: 0.25 mg Dextrose (Dextrose 50% Inj) 0 ml IV STAT PRN; Protocol PRN Reason: Hypoglycemia Protocol Doxycycline Hyclate (Doryx) 100 mg PO Q12 [facility]; Protocol Stop: 07/20/18 22:01 Last Admin: 07/16/18 09:59 Dose: 100 mg Heparin Sodium (Porcine) (Heparin) 5,000 units SC Q8 [facility]; Protocol Last Admin: 07/16/18 14:20 Dose: 5,000 units Dextrose (Dextrose 5% In Water 1000 Ml) 1,000 mls @ 0 mls/hr IV .Q0M PRN; Protocol PRN Reason: Hypoglycemia Protocol Cefepime HCl (Maxipime 1gm) 1 gm in 100 mls @ 100 mls/hr IVPB Q24H [facility]; Protocol Stop: 07/21/18 17:16 Last Admin: 07/16/18 17:10 Dose: 100 mls/hr Insulin Detemir (Levemir) 34 unit SC [facility] Last Admin: 07/15/18 22:51 Dose: 34 unit Insulin Human Lispro (Humalog Low) 0 units SC ACHS [facility]; Protocol Last Admin: 07/16/18 16:48 Dose: Not Given Insulin Human Lispro (Humalog) 14 units SC ACTID [facility] Last Admin: 07/16/18 17:11 Dose: 14 units Metoprolol Tartrate (Lopressor) 25 mg PO BID [facility] Last Admin: 07/16/18 17:09 Dose: 25 mg Nicotine (Nicoderm Cq) 1 patch TD DAILY [facility] Last Admin: 07/16/18 11:29 Dose: Not Given Ondansetron HCl (Zofran Inj) 4 mg IVP Q6H PRN PRN Reason: Nausea/Vomiting Oxycodone/Acetaminophen (Percocet 5/325 Mg Tab) 1 tab PO Q12H PRN PRN Reason: Pain, severe (8-10) Stop: 07/19/18 11:13 Last Admin: 07/16/18 11:34 Dose: 1 tab Pantoprazole Sodium (Protonix Ec Tab) 40 mg PO 0600 [facility] Last Admin: 07/16/18 06:11 Dose: 40 mg Paroxetine HCl (Paxil) 5 mg PO HS [facility] Prednisone (Prednisone Tab) 20 mg PO BID [facility] Last Admin: 07/16/18 17:09 Dose: 20 mg - Labs Labs: 07/16/18 07:00 07/16/18 07:00 Attending/Attestation - Attestation I have personally seen and examined this patient.: Yes I have fully participated in the care of the patient.: Yes I have reviewed all pertinent clinical information, including history, physical exam and plan: Yes Notes (Text): This is an addendum to the GI progress report dictated by the fellow. The patient was seen and examined along with the GI fellow. CT scan of the abdomen and pelvis and chest were all reviewed. Patient has a left breast mass with axillary metastasis. Advised to COPD. Admitted for severe anemia patient had endoscopy done in the past showed grade D esophagitis. CT scan done this time showed a significant gastric distention with a food bezoar also constipation. Diet has been changed to mechanical soft diet and also laxatives Continue PPI follow-up of the hemoglobin 07/16/18 20:12
[2018-07-16] MEDS: MethylPREDNISolone 40 mg Vial IVP SCH (09:59)
--- NOTE | 2018-07-16 10:49 | CP.PCM.PN ---
Subjective - Date & Time of Evaluation Date of Evaluation: 07/16/18 Time of Evaluation: 10:00 - Subjective Subjective: Alert, oriented, offers no complaint Objective - Vital Signs/Intake and Output Vital Signs (last 24 hours): Temp Pulse Resp BP Pulse Ox 98.3 F 98 H 20 152/58 H 100 07/16/18 06:00 07/16/18 10:00 07/16/18 06:00 07/16/18 09:59 07/16/18 06:00 Intake and Output: 07/16/18 07/16/18 06:59 18:59 Intake Total 3300 Output Total 2900 Balance 400 - Medications Medications: Current Medications Albuterol/Ipratropium (Duoneb 3 Mg/0.5 Mg (3 Ml) Ud) 3 ml IH Q2H PRN PRN Reason: Shortness of Breath Albuterol/Ipratropium (Duoneb 3 Mg/0.5 Mg (3 Ml) Ud) 3 ml IH [id number] [facility] Last Admin: 07/16/18 07:56 Dose: 3 ml Alprazolam (Xanax) 0.5 mg PO QID PRN; Protocol PRN Reason: Anxiety Last Admin: 07/16/18 09:59 Dose: 0.5 mg Arformoterol Tartrate (Brovana) 15 mcg IH [id number] [facility] Last Admin: 07/16/18 07:56 Dose: 15 mcg Aspirin (Ecotrin) 81 mg PO DAILY [facility] Last Admin: 07/16/18 09:58 Dose: 81 mg Atorvastatin Calcium (Lipitor) 20 mg PO HS [facility] Budesonide (Pulmicort Respules) 0.25 mg IH [id number] [facility] Last Admin: 07/16/18 07:56 Dose: 0.25 mg Dextrose (Dextrose 50% Inj) 0 ml IV STAT PRN; Protocol PRN Reason: Hypoglycemia Protocol Doxycycline Hyclate (Doryx) 100 mg PO Q12 [facility]; Protocol Stop: 07/20/18 22:01 Last Admin: 07/16/18 09:59 Dose: 100 mg Heparin Sodium (Porcine) (Heparin) 5,000 units SC Q8 [facility]; Protocol Last Admin: 07/16/18 06:12 Dose: 5,000 units Dextrose (Dextrose 5% In Water 1000 Ml) 1,000 mls @ 0 mls/hr IV .Q0M PRN; Protocol PRN Reason: Hypoglycemia Protocol Cefepime HCl (Maxipime 1gm) 1 gm in 100 mls @ 100 mls/hr IVPB Q24H [facility]; Pr otocol Stop: 07/21/18 17:16 Last Admin: 07/15/18 18:41 Dose: 100 mls/hr Insulin Detemir (Levemir) 34 unit SC HS [facility] Last Admin: 07/15/18 22:51 Dose: 34 unit Insulin Human Lispro (Humalog Low) 0 units SC ACHS [facility]; Protocol Last Admin: 07/16/18 08:28 Dose: Not Given Insulin Human Lispro (Humalog) 14 units SC ACTID [facility] Last Admin: 07/16/18 08:43 Dose: 14 units Methylprednisolone (Solu-Medrol) 40 mg IVP Q12 [facility] Last Admin: 07/16/18 09:59 Dose: 40 mg Metoprolol Tartrate (Lopressor) 25 mg PO BID [facility] Last Admin: 07/16/18 09:59 Dose: 25 mg Nicotine (Nicoderm Cq) 1 patch TD DAILY [facility] Last Admin: 07/16/18 09:59 Dose: 1 patch Ondansetron HCl (Zofran Inj) 4 mg IVP Q6H PRN PRN Reason: Nausea/Vomiting Pantoprazole Sodium (Protonix Ec Tab) 40 mg PO 0600 [facility] Last Admin: 07/16/18 06:11 Dose: 40 mg Paroxetine HCl (Paxil) 5 mg PO [facility] - Labs Labs: 07/16/18 07:00 07/16/18 07:00 - Constitutional Appears: Chronically Ill - Head Exam Head Exam: NORMOCEPHALIC - Eye Exam Eye Exam: Normal appearance, PERRL - ENT Exam ENT Exam: Mucous Membranes Moist - Respiratory Exam Respiratory Exam: Decreased Breath Sounds, NORMAL BREATHING PATTERN - Cardiovascular Exam Cardiovascular Exam: REGULAR RHYTHM, +S1, +S2 - GI/Abdominal Exam GI & Abdominal Exam: Soft, Normal Bowel Sounds - Back Exam Back Exam: NORMAL INSPECTION - Skin Skin Exam: Dry, Warm Assessment and Plan - Assessment and Plan (Free Text) Assessment: This is a 57 year old female with history of COPD, breast cancer, CAF, HTN, DM CKD who is admitted with hypoglycemia/AMS,anemia. Hyperkalcemia and leukocytosis resolved. The patient is alert. States she is feeling much better. Asking when she will be able to go home. She is ambulating to commode and chair. Reaffirmed wishes as per POLST for DNR/DNI. Explained the importance of compliance with medical treatment, dietary recomdndations and healthy life style. Encouraged regular follow up with her PCP Time spent in goals of care and advance care planning, 20 minutes Plan: Goals of care advance care planning ID following, recs reviewed, neely cultures negative, continue Doxycycline and Cefepime. COPD:Continue Duonebs,Pulmicort. Nicoderm, Smoking cessation DM: Fingertsicks ACHS, Lispro, Levemir, Humalog as ordered. Continue Lopressor, Lipitor, ASA, DVT prophylaxis
[2018-07-16] MEDS: Oxycodone/Acetaminophen 5/325 mg Tab PO PRN (11:34)
[2018-07-16 14:16] LABS: CA 27.29 38 U/mL (<38)
--- NOTE | 2018-07-16 16:10 | CP.PCM.PN ---
<Emma Carbajal - Last Filed: 07/16/18 20:13> Subjective - Date & Time of Evaluation Date of Evaluation: 07/16/18 Time of Evaluation: 10:00 - Subjective Subjective: INTERNAL MEDICINE PROGRESS NOTE FOR DR. DANAE Carbajal PGY1 Pt seen and examined at bedside this am. Pt reports she has been feeling better. She denies respiratory complaints. She denies 12 point ROS Objective - Vital Signs/Intake and Output Vital Signs (last 24 hours): Temp Pulse Resp BP Pulse Ox 98 F 67 18 156/69 H 100 07/16/18 12:00 07/16/18 12:00 07/16/18 12:00 07/16/18 12:00 07/16/18 06:00 Intake and Output: 07/16/18 07/16/18 06:59 18:59 Intake Total 3300 Output Total 2900 Balance 400 - Medications Medications: Current Medications Albuterol/Ipratropium (Duoneb 3 Mg/0.5 Mg (3 Ml) Ud) 3 ml IH Q2H PRN PRN Reason: Shortness of Breath Albuterol/Ipratropium (Duoneb 3 Mg/0.5 Mg (3 Ml) Ud) 3 ml IH [id number] [facility] Last Admin: 07/16/18 14:37 Dose: 3 ml Alprazolam (Xanax) 0.5 mg PO QID PRN; Protocol PRN Reason: Anxiety Last Admin: 07/16/18 09:59 Dose: 0.5 mg Arformoterol Tartrate (Brovana) 15 mcg IH [id number] [facility] Last Admin: 07/16/18 07:56 Dose: 15 mcg Aspirin (Ecotrin) 81 mg PO DAILY [facility] Last Admin: 07/16/18 09:58 Dose: 81 mg Atorvastatin Calcium (Lipitor) 20 mg PO HS [facility] Budesonide (Pulmicort Respules) 0.25 mg IH [id number] [facility] Last Admin: 07/16/18 07:56 Dose: 0.25 mg Dextrose (Dextrose 50% Inj) 0 ml IV STAT PRN; Protocol PRN Reason: Hypoglycemia Protocol Doxycycline Hyclate (Doryx) 100 mg PO Q12 [facility]; Protocol Stop: 07/20/18 22:01 Last Admin: 07/16/18 09:59 Dose: 100 mg Heparin Sodium (Porcine) (Heparin) 5,000 units SC Q8 [facility]; Protocol Last Admin: 07/16/18 14:20 Dose: 5,000 units Dextrose (Dextrose 5% In Water 1000 Ml) 1,000 mls @ 0 mls/hr IV .Q0M PRN; Protocol PRN Reason: Hypoglycemia Protocol Cefepime HCl (Maxipime 1gm) 1 gm in 100 mls @ 100 mls/hr IVPB Q24H [facility]; Protocol Stop: 07/21/18 17:16 Last Admin: 07/15/18 18:41 Dose: 100 mls/hr Insulin Detemir (Levemir) 34 unit SC HS [facility] Last Admin: 07/15/18 22:51 Dose: 34 unit Insulin Human Lispro (Humalog Low) 0 units SC ACHS [facility]; Protocol Last Admin: 07/16/18 11:55 Dose: Not Given Insulin Human Lispro (Humalog) 14 units SC ACTID [facility] Last Admin: 07/16/18 12:46 Dose: 14 units Metoprolol Tartrate (Lopressor) 25 mg PO BID [facility] Last Admin: 07/16/18 09:59 Dose: 25 mg Nicotine (Nicoderm Cq) 1 patch TD DAILY [facility] Last Admin: 07/16/18 11:29 Dose: Not Given Ondansetron HCl (Zofran Inj) 4 mg IVP Q6H PRN PRN Reason: Nausea/Vomiting Oxycodone/Acetaminophen (Percocet 5/325 Mg Tab) 1 tab PO Q12H PRN PRN Reason: Pain, severe (8-10) Stop: 07/19/18 11:13 Last Admin: 07/16/18 11:34 Dose: 1 tab Pantoprazole Sodium (Protonix Ec Tab) 40 mg PO 0600 [facility] Last Admin: 07/16/18 06:11 Dose: 40 mg Paroxetine HCl (Paxil) 5 mg PO HS [facility] Prednisone (Prednisone Tab) 20 mg PO BID [facility] - Labs Labs: 07/16/18 07:00 07/16/18 07:00 - Constitutional Appears: Well, Non-toxic, No Acute Distress - Head Exam Head Exam: NORMAL INSPECTION, NORMOCEPHALIC - Eye Exam Eye Exam: EOMI, Normal appearance - ENT Exam ENT Exam: Normal Exam - Neck Exam Neck Exam: Normal Inspection - Respiratory Exam Respiratory Exam: Decreased Breath Sounds, NORMAL BREATHING PATTERN. absent: Rales, Rhonchi, Wheezes - Cardiovascular Exam Cardiovascular Exam: REGULAR RHYTHM, +S1, +S2 - GI/Abdominal Exam GI & Abdominal Exam: Soft. absent: Tenderness - Extremities Exam Extremities Exam: absent: Calf Tenderness - Back Exam Back Exam: NORMAL INSPECTION - Neurological Exam Neurological Exam: Alert, Oriented x3 - Psychiatric Exam Psychiatric exam: Normal Affect, Normal Mood - Skin Skin Exam: Dry, Warm Additional comments: Several healing skins lesions on b/l upper/lower extremities Assessment and Plan - Assessment and Plan (Free Text) Assessment: 57 year old female, whose past medical history includes breast cancer, severe COPD, asthma, anxiety, pleural effusions, and CKD presented to the ED for hypoglycemia, hypercapnic respiratory failure, COPD exacerbation complicated by coagulase negative bacteremia Plan: Acute on Chronic COPD Exacerbation - Likely 2/2 continued tobacco use. Significantly improved. CXR 07/12: Volume loss right lung & dense lower lobe consolidation consistent with lobar atelectasis - Will d/c IV solumedrol and switch to 20mg po prednisone - Continue budesonide, arformoterol, duonebs - Pulmonology, Dr. Santiago following Normocytic Anemia -Status post 2 U of pRBC -H/H: 8.8/28.5. Responded appropriately to transfusion. -GI will consider endoscopy, however, will have to be cautious due to patient's respiratory status. Sepsis 2/2 to CAP vs. UTI - resolved - Remains afebrile, leukocytosis resolved, no tachycardia/tachypnea. No urinary symptoms -Blood culture 07/12: gram positive Cocci in Clusters. Repeat blood culture: negative. Urine culture: yeast -CXR: volume loss right lung and dense lower lobe consolidation consistent with atelectasis. -Procalcitonin: 1.83. UA: moderate LE, negative nitrate, 25-30 WBC, 6-8 epithelial cells. Many yeast seen. -Echocardiogram pending to r/o endocarditis. -Continue doxycycline & cefepime. History of breast cancer Chest CT 07/13: heterogeneous left breast mass with calcifications with axillary adenopathy compatible with neoplasm with metastases, chronic right thoracic volume loss with subsegmental atelectasis of the right upper and lower lobes, partially enlarged upper abdominal lymph nodes compatible with metastases - Tumor markers have been sent out - Heme/onc following - pt instructed to f/u in outpatient with heme/onc IDDM2 - Continue levemir 34u HS, 14u AC TID - Endocrine following, recs appreciated R arm swelling -RUE U/S: (-) for DVT Hypoglycemia - Resolved - continue accuchecks Q2HX12. D50 IVP - Insulin regimen to be adjusted prior to discharge - Endocrinology consulted, Dr. Hawkins DAHLIA on CKD - Likely in the setting of diabetic nephropathy - BUN/Cr: 68/2.3. Creatinine elevated from baseline of 1.5 to 2 - Nephrology following - control underlying hyperglycemia Hyperlipidemia - Continue Lipitor 20mg PO HS Hypertension - Continue home Lopressor 25mg PO BID Tobacco use disorder -Continue nicotine patch -Counseled at length regarding tobacco cessation Anxiety, depression - Continue home Xanax 0.5mg PO QID PRN, Paxil 5mg PO HS DVT/GI PPx: Hep/protonix Case reviewed with attending physician, Dr. Danae Carbajal PGY1 <Darius Rdz - Last Filed: 07/17/18 15:11> Objective - Vital Signs/Intake and Output Vital Signs (last 24 hours): Temp Pulse Resp BP Pulse Ox 98.1 F 68 20 129/70 94 L 07/17/18 12:00 07/17/18 12:00 07/17/18 12:00 07/17/18 12:00 07/17/18 06:00 Intake and Output: 07/17/18 07/17/18 06:59 18:59 Intake Total 820 Output Total 2000 Balance -1180 - Medications Medications: Current Medications Albuterol/Ipratropium (Duoneb 3 Mg/0.5 Mg (3 Ml) Ud) 3 ml IH Q2H PRN PRN Reason: Shortness of Breath Albuterol/Ipratropium (Duoneb 3 Mg/0.5 Mg (3 Ml) Ud) 3 ml IH [id number] [facility] Last Admin: 07/17/18 13:32 Dose: 3 ml Alprazolam (Xanax) 0.5 mg PO QID PRN; Protocol PRN Reason: Anxiety Last Admin: 07/17/18 10:27 Dose: 0.5 mg Arformoterol Tartrate (Brovana) 15 mcg IH [id number] [facility] Last Admin: 07/17/18 07:45 Dose: 15 mcg Aspirin (Ecotrin) 81 mg PO DAILY [facility] Last Admin: 07/17/18 10:27 Dose: 81 mg Atorvastatin Calcium (Lipitor) 20 mg PO [facility] Budesonide (Pulmicort Respules) 0.25 mg IH [id number] [facility] Last Admin: 07/17/18 07:45 Dose: 0.25 mg Dextrose (Dextrose 50% Inj) 0 ml IV STAT PRN; Protocol PRN Reason: Hypoglycemia Protocol Doxycycline Hyclate (Doryx) 100 mg PO Q12 [facility]; Protocol Stop: 07/20/18 22:01 Last Admin: 07/17/18 10:27 Dose: 100 mg Guaifenesin/Dextromethorphan (Robitussin Dm) 5 ml PO Q4H PRN PRN Reason: Cough Heparin Sodium (Porcine) (Heparin) 5,000 units SC Q8 [facility]; Protocol Last Admin: 07/17/18 12:59 Dose: 5,000 units Dextrose (Dextrose 5% In Water 1000 Ml) 1,000 mls @ 0 mls/hr IV .Q0M PRN; Protocol PRN Reason: Hypoglycemia Protocol Cefepime HCl (Maxipime 1gm) 1 gm in 100 mls @ 100 mls/hr IVPB Q24H [facility]; Protocol Stop: 07/21/18 17:16 Last Admin: 07/16/18 17:10 Dose: 100 mls/hr Insulin Detemir (Levemir) 36 unit SC [facility] Insulin Human Lispro (Humalog Low) 0 units SC ACHS [facility]; Protocol Last Admin: 07/17/18 12:58 Dose: 3 unit Insulin Human Lispro (Humalog) 14 units SC ACTID [facility] Last Admin: 07/17/18 12:58 Dose: 14 units Metoprolol Tartrate (Lopressor) 25 mg PO BID [facility] Last Admin: 07/17/18 10:27 Dose: 25 mg Nicotine (Nicoderm Cq) 1 patch TD DAILY [facility] Last Admin: 07/17/18 10:28 Dose: 1 patch Ondansetron HCl (Zofran Inj) 4 mg IVP Q6H PRN PRN Reason: Nausea/Vomiting Oxycodone/Acetaminophen (Percocet 5/325 Mg Tab) 1 tab PO Q12H PRN PRN Reason: Pain, severe (8-10) Stop: 07/19/18 11:13 Last Admin: 07/17/18 10:26 Dose: 1 tab Pantoprazole Sodium (Protonix Ec Tab) 40 mg PO 0600 [facility] Last Admin: 07/17/18 06:03 Dose: 40 mg Paroxetine HCl (Paxil) 5 mg PO HS [facility] Polyethylene Glycol (Miralax) 17 gm PO DAILY [facility] Last Admin: 07/17/18 10:28 Dose: 17 gm Prednisone (Prednisone Tab) 20 mg PO BID [facility] Last Admin: 07/17/18 10:28 Dose: 20 mg - Labs Labs: 07/17/18 06:10 07/17/18 06:10 Attending/Attestation - Attestation I have personally seen and examined this patient.: Yes I have fully participated in the care of the patient.: Yes I have reviewed all pertinent clinical information, including history, physical exam and plan: Yes Notes (Text): 07/17/18 15:01 Attending note: Patient seen and examined with resident. sitting in bed. on nasal cannula. Denies any fever and chills. denies any chest pain, shortness of breath is improving. Denies any abdominal pain, nausea and vomiting. tolerating diet. ambulating fine. Patient is a 57 year old female with past medical history significant for chronic respiratory failure secondary severe COPD on home oxgen, asthma, tobacco abuse, pleural effusions, CKD, pneumonia, hypertension, hyperlipidemia, breast cancer, anemia, depression and anxiety, and recurrent UTIs that presented to the emergency room for hypoglycemia. 1. Acute COPD exacerbation. on oxygen nasal cannula. Continue nebulizer treatments. Continue Pulmicort and Brovana. Continue solumedrol, continue to taper. Continue O2 via nasal cannula. On home oxygen. Chest CT showed heterogeneous left breast mass with calcifications with axillary adenopathy compatible with neoplasm with metastases, chronic right thoracic volume loss with subsegmental atelectasis of the right upper and lower lobes, partially enlarged upper abdominal lymph nodes compatible with metastases. 2. Active smoking: Patient counseled at length on tobacco cessation. continue Nicoderm patch. 3. Sepsis. Initial cultures grew coag negative staph aureus. Repeat CS negative so far. afebrile. Urine culture positive for yeast. Procalcitonin 1.83. Leukocytosis resolved. Afebrile. Continue Doxycycline and Cefepime. Got IV vancomycin. level is 16. 4. Hypoglycemia. Resolved. Endocrinology team following, recommendations appreciated. Continue to monitor accuchecks. Now with elevated blood sugar. continue levemir and humolog. Adjust as needed. 5. Acute kidney injury on Chronic Kidney disease. Cr is 2.3 today. [employer] recommendations appreciated. 6. Anemia. Likely secondary to malignancy and chronic disease. S/P 2 units PRBC transfusion. HB is 8.8 today. 7. Essential hypertension. Continue Metoporolol 8. Hyperlipidemia. Continue lipitor. 9. RUE edema.venous Doppler is negative for DVT. 10. Metastatic breast cancer. Patient refused chemo and surgery post one cycle of chemo. Needs outpatient oncology follow up recommended. 11. Depression and Anxiety. Continue Paxil 5 mg at bedtime. Continue Xanax as needed. 12. GI/DVT prophylaxis. Protonix/heparin 13. Patient is DNR/DNI. Palliative care recommendations appreciated. upon discharge the patient will follow up with PMd Dr. rushing.
[2018-07-16] MEDS: Cefepime 1gm in NS 100ml 1 GM/100 ML BAG IVPB SCH (17:10)
--- NOTE | 2018-07-16 20:24 | PN ---
DATE: 07/16/2018 SUBJECTIVE: The patient is seen sitting in chair. She is awake. She is alert. She is comfortable. She denies any shortness of breath. She denies any chest pain at present. PHYSICAL EXAMINATION: GENERAL: Middle-aged lady, sitting in bed. VITAL SIGNS: Blood pressure 156/69, heart rate 67, respiratory rate 18, and temperature 98. HEENT: Normocephalic, atraumatic, positive pallor. NECK: Supple, no JVD. LUNGS: Bilateral equal air entry, no rales, no rhonchi. CARDIAC: S1 and S2, regular rate and rhythm, no murmur, no rub. ABDOMEN: Obese, distended, soft, nontender, bowel sounds present. EXTREMITIES: Trace pitting edema of the lower extremities. INTAKE AND OUTPUT: Not charted. LABORATORY: WBC 6, hemoglobin 8.8, hematocrit 28.5, and platelets 268. Sodium 143, potassium 3.9, chloride 110, CO2 26, BUN 68, creatinine 2.3, and glucose 178. ASSESSMENT: 1. Acute kidney injury superimposed on chronic kidney disease stage III, slowly resolving. 2. Severe anemia, status post 2 units of packed red blood cells. 3. Hyperkalemia, resolved. 4. Pneumonia. 5. Chronic obstructive pulmonary disease. 6. History of cancer. PLAN: 1. Continue respiratory treatments. 2. Continue antibiotics. 3. Avoid nephrotoxins. 4. Continue current antihypertensives. 5. Monitor labs. Lual Hurd MD
[2018-07-16] MEDS: Insulin Detemir 100 units/ml Vial (Levemir) SC SCH (21:34)
--- NOTE | 2018-07-16 21:36 | PN ---
DATE: 07/16/2018 SUBJECTIVE: The patient is in bed in no acute distress, nontoxic. PHYSICAL EXAMINATION VITAL SIGNS: Temperature is 98, blood pressure is 120/70, respiratory rate of 16. HEENT: Unremarkable. NECK: Supple. LUNGS: Have decreased breath sounds. HEART: Normal S1 and S2. ABDOMEN: Soft and nontender. LABORATORY EXAMINATION: Reveals the patient's white count of 6.1, hemoglobin of 8, creatinine is 2.3. Urinalysis is noted and serology is negative. Microbiology reveals the blood cultures are no growth. Doppler's; no evidence of a DVT in the segment of right upper extremity. The repeat blood cultures from and are no growth. ASSESSMENT AND PLAN: This is a 57-year-old female with breast cancer, chronic obstructive lung disease, anxiety, pleural effusion, kidney disease, admitted with hypoglycemia, severe sepsis, coagulation-negative Staphylococcus bacteremia, does have a Port-A-Cath and repeat cultures are negative and we will treat with currently on cefepime, doxycycline and intermittent vancomycin with vancomycin level of 16 this morning which is adequate and repeat cultures from were negative, today is day #4 of antibiotic vancomycin and would need 7-10 days of intravenous vancomycin intermittently, today is day #4 of 7-10 days. The patient's repeat cultures are negative.. The patient did have a CAT scan of the chest and it is reviewed. Dr. Rivera Alejandro's note is reviewed. This patient who has a history of chronic obstructive lung disease and breast cancer, does have right-sided chest wall Port-A-Cath. Prasanth Malcolm MD
--- NOTE | 2018-07-16 22:58 | PN ---
DATE: 07/16/2018 LOCATION: In room 269 SUBJECTIVE: This is a 57-year-old female with acute exacerbation of COPD, currently on a tapering IV steroid dosing regimen as noted. LABORATORY DATA: Her glycemic levels are fluctuating but improved and the glucose values today have ranged from 160 to 239 and 259 mg/dL. Her chemistry showed a BUN of 68, sodium 143, potassium 3.9, chloride 110, CO2 of 26, glucose 178 and creatinine 2.3. ASSESSMENT: This is a 57-year-old female with uncontrolled type 2 insulin-requiring diabetes with persistent glycemic fluctuations as expected with the intercurrent IV steroid therapy, causing increased insulin resistance and further impaired glucose tolerance thereof. PLAN OF MANAGEMENT: We will continue the same basal and bolus insulin drug combination to optimize metabolic control and also to allow for full dose equilibration. We will continue also the low-dose correction scale using Humalog insulin as given. We will continue the Levemir given as 34 units subcu at bedtime daily with Humalog given preprandial at 14 units t.i.d. before meals as ordered. We will obtain serial chemistries and supplement accordingly needed. We will follow. Ernestina Hawkins MD
[2018-07-17] MEDS: Albuterol-Ipratrop 3 mg / 0.5 (3 ml) UD IH SCH ×4 (01:28→19:19)
[2018-07-17] MEDS: Pantoprazole 40 mg EC Tab PO SCH (06:03)
[2018-07-17 06:34] LABS: EOS % 0.2 % (1.5-5.0); HEMOGLOBIN 8.9 g/dL (12.0-16.0); LYMPH # 0.6 (1.2-3.4); LYMPH % 10.9 % (22.0-35.0); MEAN CELL VOLUME 88.2 fl (80.0-105.0); MEAN CORPUSCULAR HEMOGLOBIN 27.7 pg (25.0-35.0); MEAN CORPUSCULAR HGB CONC 31.4 g/dl (31.0-37.0); MEAN PLATELET VOLUME 9.9 fl (7.0-11.0); MONO # 0.7 (0.1-0.6); MONO % 11.4 % (1.0-6.0); RBC 3.21 10^6/uL (3.5-6.1); RED CELL DISTRIBUTION WIDTH 15.8 % (11.5-14.5); WHITE BLOOD COUNT 5.9 10^3/uL (4.5-11.0)
[2018-07-17 06:51] LABS: ALB/GLOB RATIO 1.2 (1.1-1.8); ALBUMIN 3.3 g/dL (3.0-4.8); CALCIUM 7.7 mg/dL (8.4-10.5)
[2018-07-17] MEDS: Budesonide 0.25 mg/2 ml Inhal Susp UD IH SCH ×2 (07:45→19:18)
[2018-07-17] MEDS: Arformoterol 15 mcg/2 ml Inh Sol IH SCH ×2 (07:45→19:18)
[2018-07-17] MEDS ORDERED: Insulin Detemir 100 units/ml Vial (Levemir) SC SCH (09:21)
[2018-07-17] MEDS: Insulin Lispro (humaLOG) LOW Coverage SC SCH ×3 (10:16→17:05)
--- NOTE | 2018-07-17 10:16 | CP.PCM.PN ---
<Rajinder Romano - Last Filed: 07/17/18 10:18> Subjective - Date & Time of Evaluation Date of Evaluation: 07/17/18 Time of Evaluation: 07:45 - Subjective Subjective: PGY6 GI Fellow Progress Note Patient seen and examined bedside this morning. The patient states that she is feeling well and has just finished her breakfast without issue. Denies any events overnight. 12 system ROS performed and negative except where stated Objective - Vital Signs/Intake and Output Vital Signs (last 24 hours): Temp Pulse Resp BP Pulse Ox 98.4 F 75 20 159/70 H 94 L 07/17/18 06:00 07/17/18 06:00 07/17/18 06:00 07/17/18 06:00 07/17/18 06:00 Intake and Output: 07/17/18 07/17/18 06:59 18:59 Intake Total 820 Output Total 2000 Balance -1180 - Medications Medications: Current Medications Albuterol/Ipratropium (Duoneb 3 Mg/0.5 Mg (3 Ml) Ud) 3 ml IH Q2H PRN PRN Reason: Shortness of Breath Albuterol/Ipratropium (Duoneb 3 Mg/0.5 Mg (3 Ml) Ud) 3 ml IH [id number] [facility] Last Admin: 07/17/18 07:45 Dose: 3 ml Alprazolam (Xanax) 0.5 mg PO QID PRN; Protocol PRN Reason: Anxiety Last Admin: 07/16/18 21:35 Dose: 0.5 mg Arformoterol Tartrate (Brovana) 15 mcg IH [id number] [facility] Last Admin: 07/17/18 07:45 Dose: 15 mcg Aspirin (Ecotrin) 81 mg PO DAILY [facility] Last Admin: 07/16/18 09:58 Dose: 81 mg Atorvastatin Calcium (Lipitor) 20 mg PO HS [facility] Budesonide (Pulmicort Respules) 0.25 mg IH [id number] [facility] Last Admin: 07/17/18 07:45 Dose: 0.25 mg Dextrose (Dextrose 50% Inj) 0 ml IV STAT PRN; Protocol PRN Reason: Hypoglycemia Protocol Doxycycline Hyclate (Doryx) 100 mg PO Q12 [facility]; Protocol Stop: 07/20/18 22:01 Last Admin: 07/16/18 21:35 Dose: 100 mg Heparin Sodium (Porcine) (Heparin) 5,000 units SC Q8 [facility]; Protocol Last Admin: 07/17/18 06:03 Dose: 5,000 units Dextrose (Dextrose 5% In Water 1000 Ml) 1,000 mls @ 0 mls/hr IV .Q0M PRN; Protocol PRN Reason: Hypoglycemia Protocol Cefepime HCl (Maxipime 1gm) 1 gm in 100 mls @ 100 mls/hr IVPB Q24H [facility]; Protocol Stop: 07/21/18 17:16 Last Admin: 07/16/18 17:10 Dose: 100 mls/hr Insulin Detemir (Levemir) 36 unit SC HS [facility] Insulin Human Lispro (Humalog Low) 0 units SC ACHS [facility]; Protocol Last Admin: 07/16/18 21:35 Dose: 2 unit Insulin Human Lispro (Humalog) 14 units SC ACTID [facility] Last Admin: 07/16/18 17:11 Dose: 14 units Metoprolol Tartrate (Lopressor) 25 mg PO BID [facility] Last Admin: 07/16/18 17:09 Dose: 25 mg Nicotine (Nicoderm Cq) 1 patch TD DAILY [facility] Last Admin: 07/16/18 11:29 Dose: Not Given Ondansetron HCl (Zofran Inj) 4 mg IVP Q6H PRN PRN Reason: Nausea/Vomiting Oxycodone/Acetaminophen (Percocet 5/325 Mg Tab) 1 tab PO Q12H PRN PRN Reason: Pain, severe (8-10) Stop: 07/19/18 11:13 Last Admin: 07/16/18 11:34 Dose: 1 tab Pantoprazole Sodium (Protonix Ec Tab) 40 mg PO 0600 [facility] Last Admin: 07/17/18 06:03 Dose: 40 mg Paroxetine HCl (Paxil) 5 mg PO HS [facility] Polyethylene Glycol (Miralax) 17 gm PO DAILY [facility] Prednisone (Prednisone Tab) 20 mg PO BID [facility] Last Admin: 07/16/18 17:09 Dose: 20 mg - Labs Labs: 07/17/18 06:10 07/17/18 06:10 - Constitutional Appears: Non-toxic, No Acute Distress - Eye Exam Eye Exam: EOMI, PERRL - ENT Exam ENT Exam: Mucous Membranes Moist - Respiratory Exam Respiratory Exam: Clear to Ausculation Bilateral. absent: Rales, Rhonchi, Wheezes - Cardiovascular Exam Cardiovascular Exam: RRR, +S1, +S2 - GI/Abdominal Exam GI & Abdominal Exam: Soft, Normal Bowel Sounds. absent: Distended, Firm, Guarding, Rigid, Tenderness, Organomegaly - Extremities Exam Extremities Exam: Normal Inspection. absent: Pedal Edema - Neurological Exam Neurological Exam: Alert, Awake, Oriented x3 - Psychiatric Exam Psychiatric exam: Normal Affect, Normal Mood - Skin Skin Exam: Dry, Warm Assessment and Plan - Assessment and Plan (Free Text) Assessment: Patient is a 49yo female with PMHx significant for invasive ductal carcinoma of the left breast with prior chemotherapy, COPD, CKD, anxiety who was admitted for hypoglycemia, altered mentation and COPD exacerbation. -Chronic normocytic anemia -Left breast cancer, possibly spread to lymph nodes (no confirmation on record, LNs noted on imaging) -COPD -CKD -Anxiety Plan: -Anemia likely multifactorial in the setting of chronic illness (malignancy) and CKD -Prior chemotherapy >2 years ago per patient, stopped due to patient preference and side effects of treatment, poor follow up -Oncology following - patient will need close follow up regarding ongoing breast lesion -No plan for inpatient endoscopic evaluation in the absence of overt blood loss, encourage outpatient coordination if needed -Supportive care -Continue PPI therapy -Diet as tolerated <John Paul,Kovil V - Last Filed: 07/19/18 00:14> Objective - Vital Signs/Intake and Output Vital Signs (last 24 hours): Temp Pulse Resp BP Pulse Ox 98.6 F 76 18 132/69 94 L 07/17/18 18:00 07/17/18 18:00 07/17/18 18:00 07/17/18 18:00 07/17/18 06:00 Intake and Output: 07/17/18 07/18/18 18:59 06:59 Intake Total 100 Balance 100 - Medications Medications: Current Medications Albuterol/Ipratropium (Duoneb 3 Mg/0.5 Mg (3 Ml) Ud) 3 ml IH Q2H PRN PRN Reason: Shortness of Breath Albuterol/Ipratropium (Duoneb 3 Mg/0.5 Mg (3 Ml) Ud) 3 ml IH [id number] [facility] Last Admin: 07/17/18 19:19 Dose: 3 ml Alprazolam (Xanax) 0.5 mg PO QID PRN; Protocol PRN Reason: Anxiety Last Admin: 07/17/18 10:27 Dose: 0.5 mg Arformoterol Tartrate (Brovana) 15 mcg IH [id number] [facility] Last Admin: 07/17/18 19:18 Dose: 15 mcg Aspirin (Ecotrin) 81 mg PO DAILY [facility] Last Admin: 07/17/18 10:27 Dose: 81 mg Atorvastatin Calcium (Lipitor) 20 mg PO HS [facility] Last Admin: 07/17/18 22:16 Dose: 20 mg Budesonide (Pulmicort Respules) 0.25 mg IH [id number] [facility] Last Admin: 07/17/18 19:18 Dose: 0.25 mg Dextrose (Dextrose 50% Inj) 0 ml IV STAT PRN; Protocol PRN Reason: Hypoglycemia Protocol Guaifenesin/Dextromethorphan (Robitussin Dm) 5 ml PO Q4H PRN PRN Reason: Cough Last Admin: 07/17/18 17:22 Dose: 5 ml Heparin Sodium (Porcine) (Heparin) 5,000 units SC Q8 [facility]; Protocol Last Admin: 07/17/18 22:15 Dose: 5,000 units Dextrose (Dextrose 5% In Water 1000 Ml) 1,000 mls @ 0 mls/hr IV .Q0M PRN; P rotocol PRN Reason: Hypoglycemia Protocol Insulin Detemir (Levemir) 36 unit SC HS [facility] Last Admin: 07/17/18 22:15 Dose: 36 units Insulin Human Lispro (Humalog Low) 0 units SC ACHS [facility]; Protocol Last Admin: 07/17/18 17:05 Dose: Not Given Insulin Human Lispro (Humalog) 14 units SC ACTID [facility] Last Admin: 07/17/18 17:23 Dose: 14 units Metoprolol Tartrate (Lopressor) 25 mg PO BID [facility] Last Admin: 07/17/18 17:22 Dose: 25 mg Nicotine (Nicoderm Cq) 1 patch TD DAILY [facility] Last Admin: 07/17/18 10:28 Dose: 1 patch Ondansetron HCl (Zofran Inj) 4 mg IVP Q6H PRN PRN Reason: Nausea/Vomiting Oxycodone/Acetaminophen (Percocet 5/325 Mg Tab) 1 tab PO Q12H PRN PRN Reason: Pain, severe (8-10) Stop: 07/19/18 11:13 Last Admin: 07/17/18 10:26 Dose: 1 tab Pantoprazole Sodium (Protonix Ec Tab) 40 mg PO 0600 [facility] Last Admin: 07/17/18 06:03 Dose: 40 mg Paroxetine HCl (Paxil) 5 mg PO HS [facility] Polyethylene Glycol (Miralax) 17 gm PO DAILY [facility] Last Admin: 07/17/18 10:28 Dose: 17 gm Prednisone (Prednisone Tab) 20 mg PO DAILY [facility] - Labs Labs: 07/17/18 06:10 07/17/18 06:10 Attending/Attestation - Attestation I have personally seen and examined this patient.: Yes I have fully participated in the care of the patient.: Yes I have reviewed all pertinent clinical information, including history, physical exam and plan: Yes Notes (Text): This patient was seen and evaluated along with the GI fellow earlier. This is a delayed addendum to the progress note dictated by the fellow. Patient has a large amount of food in the stomach the CAT scan review probably has gastroparesis diet has been changed to mechanical soft diet. Patient would benefit from upper GI endoscopy patient did have a history of grade D esophageal ulcerations in the past. History of advanced breast cancer Continue the PPI Follow-up of the hemoglobin hematocrit We will discuss with the Dr. Sosa 07/17/18 23:57 07/19/18 00:12
[2018-07-17] MEDS: Oxycodone/Acetaminophen 5/325 mg Tab PO PRN (10:26)
[2018-07-17] MEDS: Insulin Lispro 1 UNITS/0.01 ML SC SCH ×3 (10:28→17:23)
[2018-07-17] MEDS: POLYETHYLENE GLYCOL 3350 17 GM/Dose PACKET PO SCH (10:28)
--- NOTE | 2018-07-17 11:01 | CP.PCM.PN ---
Subjective - Date & Time of Evaluation Date of Evaluation: 07/17/18 Time of Evaluation: 10:58 - Subjective Subjective: PGY-[address] Hawkins, Rob Pt sitting comfortably by bedside. Breathing on 3L o2, no active complaint Objective - Vital Signs/Intake and Output Vital Signs (last 24 hours): Temp Pulse Resp BP Pulse Ox 98.4 F 75 20 175/86 H 94 L 07/17/18 06:00 07/17/18 10:27 07/17/18 06:00 07/17/18 10:27 07/17/18 06:00 Intake and Output: 07/17/18 07/17/18 06:59 18:59 Intake Total 820 Output Total 2000 Balance -1180 - Medications Medications: Current Medications Albuterol/Ipratropium (Duoneb 3 Mg/0.5 Mg (3 Ml) Ud) 3 ml IH Q2H PRN PRN Reason: Shortness of Breath Albuterol/Ipratropium (Duoneb 3 Mg/0.5 Mg (3 Ml) Ud) 3 ml IH [id number] [facility] Last Admin: 07/17/18 07:45 Dose: 3 ml Alprazolam (Xanax) 0.5 mg PO QID PRN; Protocol PRN Reason: Anxiety Last Admin: 07/17/18 10:27 Dose: 0.5 mg Arformoterol Tartrate (Brovana) 15 mcg IH [id number] [facility] Last Admin: 07/17/18 07:45 Dose: 15 mcg Aspirin (Ecotrin) 81 mg PO DAILY [facility] Last Admin: 07/17/18 10:27 Dose: 81 mg Atorvastatin Calcium (Lipitor) 20 mg PO HS [facility] Budesonide (Pulmicort Respules) 0.25 mg IH [id number] [facility] Last Admin: 07/17/18 07:45 Dose: 0.25 mg Dextrose (Dextrose 50% Inj) 0 ml IV STAT PRN; Protocol PRN Reason: Hypoglycemia Protocol Doxycycline Hyclate (Doryx) 100 mg PO Q12 [facility]; Protocol Stop: 07/20/18 22:01 Last Admin: 07/17/18 10:27 Dose: 100 mg Heparin Sodium (Porcine) (Heparin) 5,000 units SC Q8 [facility]; Protocol Last Admin: 07/17/18 06:03 Dose: 5,000 units Dextrose (Dextrose 5% In Water 1000 Ml) 1,000 mls @ 0 mls/hr IV .Q0M PRN; Protocol PRN Reason: Hypoglycemia Protocol Cefepime HCl (Maxipime 1gm) 1 gm in 100 mls @ 100 mls/hr IVPB Q24H [facility]; Protocol Stop: 07/21/18 17:16 Last Admin: 07/16/18 17:10 Dose: 100 mls/hr Insulin Detemir (Levemir) 36 unit SC [facility] Insulin Human Lispro (Humalog Low) 0 units SC ACHS [facility]; Protocol Last Admin: 07/17/18 10:16 Dose: Not Given Insulin Human Lispro (Humalog) 14 units SC ACTID [facility] Last Admin: 07/17/18 10:28 Dose: 14 units Metoprolol Tartrate (Lopressor) 25 mg PO BID [facility] Last Admin: 07/17/18 10:27 Dose: 25 mg Nicotine (Nicoderm Cq) 1 patch TD DAILY [facility] Last Admin: 07/17/18 10:28 Dose: 1 patch Ondansetron HCl (Zofran Inj) 4 mg IVP Q6H PRN PRN Reason: Nausea/Vomiting Oxycodone/Acetaminophen (Percocet 5/325 Mg Tab) 1 tab PO Q12H PRN PRN Reason: Pain, severe (8-10) Stop: 07/19/18 11:13 Last Admin: 07/17/18 10:26 Dose: 1 tab Pantoprazole Sodium (Protonix Ec Tab) 40 mg PO 0600 [facility] Last Admin: 07/17/18 06:03 Dose: 40 mg Paroxetine HCl (Paxil) 5 mg PO [facility] Polyethylene Glycol (Miralax) 17 gm PO DAILY [facility] Last Admin: 07/17/18 10:28 Dose: 17 gm Prednisone (Prednisone Tab) 20 mg PO BID [facility] Last Admin: 07/17/18 10:28 Dose: 20 mg - Labs Labs: 07/17/18 06:10 07/17/18 06:10 - Constitutional Appears: No Acute Distress - Head Exam Head Exam: ATRAUMATIC, NORMAL INSPECTION, NORMOCEPHALIC - Eye Exam Eye Exam: EOMI, Normal appearance, PERRL. absent: Scleral icterus Pupil Exam: NORMAL ACCOMODATION - ENT Exam ENT Exam: Mucous Membranes Moist - Neck Exam Additional comments: supple, port-a-cath intact - Respiratory Exam Respiratory Exam: Clear to Ausculation Bilateral. absent: Rales, Rhonchi, Wheezes - Cardiovascular Exam Cardiovascular Exam: REGULAR RHYTHM, +S1, +S2 - GI/Abdominal Exam GI & Abdominal Exam: Soft, Normal Bowel Sounds. absent: Guarding, Rigid, Tenderness - Extremities Exam Extremities Exam: absent: Calf Tenderness, Pedal Edema - Neurological Exam Neurological Exam: Alert, Awake, Oriented x3 - Psychiatric Exam Psychiatric exam: Normal Affect, Normal Mood - Skin Skin Exam: Dry, Warm Assessment and Plan - Assessment and Plan (Free Text) Plan: Ms Randolph, 57F, active smoker 3 ppd x 40 years, chronic COPD on 3L o2 home, Recurrent R pleural effusion and hx breast ca, was brought in by EMS for AMS and hypoglycemia 40 in the field. She had decreased appetite recently. She has hx breast ca s/p mastectomy, chemo, recurrent R pleural effusion, R port-a-cath for several years. She was found to have severe sepsis with coag-neg staph bactermia, repeated culture negative. US R arm/subclavian vein had ruled out thrombus. TTE pending official read. Today is day 5/7-10 days of IV vancomycin. She was severely anemic, s/p 2u pRBC. Hypoglycemia - resolved Accelearated hyperglycemia due to steroid induced insulin resistance - Prednisone 20 BID Decreased appetite A1C 7.3 TSH normal (Apr 2018) - Levemir 34 HS, standing lispro 14 actid, ISSS-low starting BG>300 - carb consist diet - As steroid tapers in the coming week, insulin requirement may change accordingly. Please follow up with primary care doctor to adjust doses to prevent hypoglycemia (Home regimen: 30 Levemir only) [employer] for smoking cessation s/r/d/w Dr Hawkins
--- NOTE | 2018-07-17 11:05 | CARD ---
APPROVED REPORT Date of service: 07/17/2018 EXAM: Two-dimensional and M-mode echocardiogram with Doppler and color Doppler. INDICATION Infection:Rule out subacute bacterial endocarditis 2D DIMENSIONS Left Atrium (2D)4.0 (1.6-4.0cm)IVSd1.3 (0.7-1.1cm) LVDd4.4 (3.9-5.9cm)PWd1.4 (0.7-1.1cm) LVDs2.6 (2.5-4.0cm)FS (%) 40.9 % LVEF (%)71.8 (>50%) M-Mode DIMENSIONS Aortic Root2.80 (2.2-3.7cm)Aortic Cusp Exc.1.60 (1.5-2.0cm) Aortic Valve AoV Peak Uigisxbb211.0cm/Heidi Peak GR.22mmHg Mitral Valve MV E Uovnafhd318.0cm/sMV A Nmhqnvuy38.7cm/sE/A ratio1.0 TDI E/Lateral E'0.0E/Medial E'0.0 Pulmonary Valve PV Peak Ynsizeud839.0cm/sPV Peak Grad.4mmHg Tricuspid Valve TR Peak [id number]/sRAP [id number] Peak Gr.30mmHg [id number] LEFT VENTRICLE The left ventricle is normal size. There is borderline concentric left ventricular hypertrophy. The left ventricular function is normal. The left ventricular ejection fraction is within the normal range. There is normal LV segmental wall motion. Transmitral Doppler flow pattern is Grade I-abnormal relaxation pattern. RIGHT VENTRICLE The right ventricle is normal size. There is normal right ventricular wall thickness. The right ventricular systolic function is normal. ATRIA The left atrium is borderline dilated. The right atrium size is normal. AORTIC VALVE The aortic valve is normal in structure. No aortic regurgitation is present. There is no aortic valvular stenosis. MITRAL VALVE The mitral valve is normal in structure. Mitral regurgitation is trace. TRICUSPID VALVE There is mild tricuspid regurgitation. There is mild pulmonary hypertension. PULMONIC VALVE There is no pulmonic valvular regurgitation. GREAT VESSELS The aortic root is normal in size. The IVC is normal in size and collapses >50% with inspiration. <Conclusion> There is borderline concentric left ventricular hypertrophy. The left ventricular function is normal. The left ventricular ejection fraction is within the normal range. There is normal LV segmental wall motion. Transmitral Doppler flow pattern is Grade I-abnormal relaxation pattern. There is mild tricuspid regurgitation. There is mild pulmonary hypertension. No vegitation seen
--- NOTE | 2018-07-17 12:11 | CP.PCM.PN ---
<Emma Carbajal - Last Filed: 07/17/18 12:07> Subjective - Date & Time of Evaluation Date of Evaluation: 07/17/18 Time of Evaluation: 08:30 - Subjective Subjective: INTERNAL MEDICINE PROGRESS NOTE FOR DR. DANAE Carbajal PGY1 Pt seen and examined at bedside this am. No acute events overnight. Pt denying complaints currently Objective - Vital Signs/Intake and Output Vital Signs (last 24 hours): Temp Pulse Resp BP Pulse Ox 98.4 F 75 20 168/78 H 94 L 07/17/18 06:00 07/17/18 10:27 07/17/18 06:00 07/17/18 11:30 07/17/18 06:00 Intake and Output: 07/17/18 07/17/18 06:59 18:59 Intake Total 820 Output Total 2000 Balance -1180 - Medications Medications: Current Medications Albuterol/Ipratropium (Duoneb 3 Mg/0.5 Mg (3 Ml) Ud) 3 ml IH Q2H PRN PRN Reason: Shortness of Breath Albuterol/Ipratropium (Duoneb 3 Mg/0.5 Mg (3 Ml) Ud) 3 ml IH [id number] [facility], [facility] Last Admin: 07/17/18 07:45 Dose: 3 ml Alprazolam (Xanax) 0.5 mg PO QID PRN; Protocol PRN Reason: Anxiety Last Admin: 07/17/18 10:27 Dose: 0.5 mg Arformoterol Tartrate (Brovana) 15 mcg IH [id number] [facility], [facility]1983 Last Admin: 07/17/18 07:45 Dose: 15 mcg Aspirin (Ecotrin) 81 mg PO DAILY [facility] Last Admin: 07/17/18 10:27 Dose: 81 mg Atorvastatin Calcium (Lipitor) 20 mg PO HS [facility] Budesonide (Pulmicort Respules) 0.25 mg IH [id number] [facility] Last Admin: 07/17/18 07:45 Dose: 0.25 mg Dextrose (Dextrose 50% Inj) 0 ml IV STAT PRN; Protocol PRN Reason: Hypoglycemia Protocol Doxycycline Hyclate (Doryx) 100 mg PO Q12 LUCIANO; Protocol Stop: 07/20/18 22:01 Last Admin: 07/17/18 10:27 Dose: 100 mg Heparin Sodium (Porcine) (Heparin) 5,000 units SC Q8 [facility], [facility]; Protocol Last Admin: 07/17/18 06:03 Dose: 5,000 units Dextrose (Dextrose 5% In Water 1000 Ml) 1,000 mls @ 0 mls/hr IV .Q0M PRN; Protocol PRN Reason: Hypoglycemia Protocol Cefepime HCl (Maxipime 1gm) 1 gm in 100 mls @ 100 mls/hr IVPB Q24H [facility], [facility]; Protocol Stop: 07/21/18 17:16 Last Admin: 07/16/18 17:10 Dose: 100 mls/hr Insulin Detemir (Levemir) 36 unit SC HS [facility] Insulin Human Lispro (Humalog Low) 0 units SC ACHS [facility], [facility]; Protocol Last Admin: 07/17/18 10:16 Dose: Not Given Insulin Human Lispro (Humalog) 14 units SC ACTID [facility]1983 Last Admin: 07/17/18 10:28 Dose: 14 units Metoprolol Tartrate (Lopressor) 25 mg PO BID [facility] Last Admin: 07/17/18 10:27 Dose: 25 mg Nicotine (Nicoderm Cq) 1 patch TD DAILY [facility] Last Admin: 07/17/18 10:28 Dose: 1 patch Ondansetron HCl (Zofran Inj) 4 mg IVP Q6H PRN PRN Reason: Nausea/Vomiting Oxycodone/Acetaminophen (Percocet 5/325 Mg Tab) 1 tab PO Q12H PRN PRN Reason: Pain, severe (8-10) Stop: 07/19/18 11:13 Last Admin: 07/17/18 10:26 Dose: 1 tab Pantoprazole Sodium (Protonix Ec Tab) 40 mg PO 0600 [facility] Last Admin: 07/17/18 06:03 Dose: 40 mg Paroxetine HCl (Paxil) 5 mg PO HS [facility] Polyethylene Glycol (Miralax) 17 gm PO DAILY [facility] Last Admin: 07/17/18 10:28 Dose: 17 gm Prednisone (Prednisone Tab) 20 mg PO BID [facility] Last Admin: 07/17/18 10:28 Dose: 20 mg - Labs Labs: 07/17/18 06:10 07/17/18 06:10 - Constitutional Appears: Well, Non-toxic, No Acute Distress - Head Exam Head Exam: NORMAL INSPECTION, NORMOCEPHALIC - Eye Exam Eye Exam: EOMI, Normal appearance - ENT Exam ENT Exam: Normal Exam - Neck Exam Neck Exam: Normal Inspection - Respiratory Exam Respiratory Exam: Decreased Breath Sounds, NORMAL BREATHING PATTERN. absent: Rales, Rhonchi, Wheezes - Cardiovascular Exam Cardiovascular Exam: REGULAR RHYTHM, +S1, +S2 - GI/Abdominal Exam GI & Abdominal Exam: Soft. absent: Tenderness - Extremities Exam Extremities Exam: absent: Calf Tenderness - Back Exam Back Exam: NORMAL INSPECTION - Neurological Exam Neurological Exam: Alert, Oriented x3 - Psychiatric Exam Psychiatric exam: Normal Affect, Normal Mood - Skin Skin Exam: Dry, Warm Additional comments: Several healing skins lesions on b/l upper/lower extremities Assessment and Plan - Assessment and Plan (Free Text) Assessment: 57 year old female, whose past medical history includes breast cancer, severe COPD, asthma, anxiety, pleural effusions, and CKD presented to the ED for hypoglycemia, hypercapnic respiratory failure, COPD exacerbation complicated by coagulase negative bacteremia Plan: Acute on Chronic COPD Exacerbation - Likely 2/2 continued tobacco use. Significantly improved. CXR 07/12: Volume loss right lung & dense lower lobe consolidation consistent with lobar atelectasis - Will d/c IV solumedrol and switch to 20mg po prednisone - Continue budesonide, arformoterol, duonebs - Pulmonology, Dr. Santiago following Normocytic Anemia -Status post 2 U of pRBC -H/H: 8.8/28.5. Responded appropriately to transfusion. -GI will consider endoscopy, however, will have to be cautious due to patient's respiratory status. Sepsis 2/2 to CAP vs. UTI -Blood culture 07/12: gram positive Cocci in Clusters. Repeat blood culture: negative. Urine culture: yeast - Remains afebrile, leukocytosis resolved, no tachycardia/tachypnea. No urinary symptoms -CXR: volume loss right lung and dense lower lobe consolidation consistent with atelectasis. -Procalcitonin: 1.83. UA: moderate LE, negative nitrate, 25-30 WBC, 6-8 epithelial cells. Many yeast seen. -Echocardiogram pending to r/o endocarditis. -Continue doxycycline & cefepime. Continue intermittent vancomycin. Today Day 5 History of breast cancer Chest CT 07/13: heterogeneous left breast mass with calcifications with axillary adenopathy compatible with neoplasm with metastases, chronic right thoracic volume loss with subsegmental atelectasis of the right upper and lower lobes, partially enlarged upper abdominal lymph nodes compatible with metastases - Tumor markers have been sent out - Heme/onc following - pt instructed to f/u in outpatient with heme/onc IDDM2 - Continue levemir 36u HS, 14u AC TID - Endocrine following, recs appreciated R arm swelling -RUE U/S: (-) for DVT Hypoglycemia - Resolved - continue accuchecks Q2HX12. D50 IVP - Insulin regimen to be adjusted prior to discharge - Endocrinology consulted, Dr. Ross VILLAGOMEZ on CKD - Likely in the setting of diabetic nephropathy - BUN/Cr: 68/2.3. Creatinine elevated from baseline of 1.5 to 2 - Nephrology following - control underlying hyperglycemia Hyperlipidemia - Continue Lipitor 20mg PO HS Hypertension - Continue home Lopressor 25mg PO BID Tobacco use disorder -Continue nicotine patch -Counseled at length regarding tobacco cessation Anxiety, depression - Continue home Xanax 0.5mg PO QID PRN, Paxil 5mg PO HS Constipation - Start Miralax DVT/GI PPx: Hep/protonix Case reviewed with attending physician, Dr. Danae Carbajal PGY1 <Darius Rdz - Last Filed: 07/18/18 18:22> Objective - Vital Signs/Intake and Output Vital Signs (last 24 hours): Temp Pulse Resp BP Pulse Ox 98.1 F 68 20 129/70 94 L 07/17/18 12:00 07/17/18 12:00 07/17/18 12:00 07/17/18 12:00 07/17/18 06:00 Intake and Output: 07/17/18 07/17/18 06:59 18:59 Intake Total 820 Output Total 1999 Balance -1180 - Medications Medications: Current Medications Albuterol/Ipratropium (Duoneb 3 Mg/0.5 Mg (3 Ml) Ud) 3 ml IH Q2H PRN PRN Reason: Shortness of Breath Albuterol/Ipratropium (Duoneb 3 Mg/0.5 Mg (3 Ml) Ud) 3 ml IH [id number] [facility]CIANO Last Admin: 07/17/18 13:32 Dose: 3 ml Alprazolam (Xanax) 0.5 mg PO QID PRN; Protocol PRN Reason: Anxiety Last Admin: 07/17/18 10:27 Dose: 0.5 mg Arformoterol Tartrate (Brovana) 15 mcg IH [id number] [facility] Last Admin: 07/17/18 07:45 Dose: 15 mcg Aspirin (Ecotrin) 81 mg PO DAILY [facility] Last Admin: 07/17/18 10:27 Dose: 81 mg Atorvastatin Calcium (Lipitor) 20 mg PO [facility] Budesonide (Pulmicort Respules) 0.25 mg IH [id number] [facility]1983 Last Admin: 07/17/18 07:45 Dose: 0.25 mg Dextrose (Dextrose 50% Inj) 0 ml IV STAT PRN; Protocol PRN Reason: Hypoglycemia Protocol Doxycycline Hyclate (Doryx) 100 mg PO Q12 [facility]; Protocol Stop: 07/20/18 22:01 Last Admin: 07/17/18 10:27 Dose: 100 mg Guaifenesin/Dextromethorphan (Robitussin Dm) 5 ml PO Q4H PRN PRN Reason: Cough Heparin Sodium (Porcine) (Heparin) 5,000 units SC Q8 [facility]; Protocol Last Admin: 07/17/18 12:59 Dose: 5,000 units Dextrose (Dextrose 5% In Water 1000 Ml) 1,000 mls @ 0 mls/hr IV .Q0M PRN; Protocol PRN Reason: Hypoglycemia Protocol Cefepime HCl (Maxipime 1gm) 1 gm in 100 mls @ 100 mls/hr IVPB Q24H [facility]; Protocol Stop: 07/21/18 17:16 Last Admin: 07/16/18 17:10 Dose: 100 mls/hr Insulin Detemir (Levemir) 36 unit SC [facility] Insulin Human Lispro (Humalog Low) 0 units SC ACHS [facility]; Protocol Last Admin: 07/17/18 12:58 Dose: 3 unit Insulin Human Lispro (Humalog) 14 units SC ACTID [facility] Last Admin: 07/17/18 12:58 Dose: 14 units Metoprolol Tartrate (Lopressor) 25 mg PO BID [facility] Last Admin: 07/17/18 10:27 Dose: 25 mg Nicotine (Nicoderm Cq) 1 patch TD DAILY [facility] Last Admin: 07/17/18 10:28 Dose: 1 patch Ondansetron HCl (Zofran Inj) 4 mg IVP Q6H PRN PRN Reason: Nausea/Vomiting Oxycodone/Acetaminophen (Percocet 5/325 Mg Tab) 1 tab PO Q12H PRN PRN Reason: Pain, severe (8-10) Stop: 07/19/18 11:13 Last Admin: 07/17/18 10:26 Dose: 1 tab Pantoprazole Sodium (Protonix Ec Tab) 40 mg PO 0600 [facility] Last Admin: 07/17/18 06:03 Dose: 40 mg Paroxetine HCl (Paxil) 5 mg PO HS [facility] Polyethylene Glycol (Miralax) 17 gm PO DAILY [facility] Last Admin: 07/17/18 10:28 Dose: 17 gm Prednisone (Prednisone Tab) 20 mg PO BID [facility] Last Admin: 07/17/18 10:28 Dose: 20 mg - Labs Labs: 07/17/18 06:10 07/17/18 06:10 Attending/Attestation - Attestation I have personally seen and examined this patient.: Yes I have fully participated in the care of the patient.: Yes I have reviewed all pertinent clinical information, including history, physical exam and plan: Yes Notes (Text): 07/17/18 15:33 Attending note: Patient seen and examined with resident. sitting in bed. on nasal cannula. Denies any fever and chills. denies any chest pain, shortness of breath is improving. Denies any abdominal pain, nausea and vomiting. tolerating diet. ambulating fine. Patient is a 57 year old female with past medical history significant for chronic respiratory failure secondary severe COPD on home oxgen, asthma, tobacco abuse, pleural effusions, CKD, pneumonia, hypertension, hyperlipidemia, breast cancer, anemia, depression and anxiety, and recurrent UTIs that presented to the emergency room for hypoglycemia. 1. Acute COPD exacerbation. Improving slowly. on oxygen nasal cannula. Continue nebulizer treatments. Continue Pulmicort and Brovana. on po prednisone. Continue O2 via nasal cannula. On home oxygen. Chest CT showed heterogeneous left breast mass with calcifications with axillary adenopathy compatible with neoplasm with metastases, chronic right thoracic volume loss with subsegmental atelectasis of the right upper and lower lobes, partially enlarged upper abdominal lymph nodes compatible with metastases. 2. Active smoking: Patient counseled at length on tobacco cessation. continue Nicoderm patch. 3. Sepsis. resolving. Initial cultures grew coag negative staphylococcus. Repeat CS negative so far. afebrile. Urine culture positive for yeast. Leukocytosis resolved. Afebrile. Continue Doxycycline and Cefepime. we will give vancomycin 1 dose today. Echo is negative for vegetations. 4. Hypoglycemia. Resolved. Endocrinology team following, recommendations appreciated. Continue to monitor accuchecks. Now with elevated blood sugar. continue levemir and humolog. Adjust as needed. 5. Acute kidney injury on Chronic Kidney disease. Cr is 2.1 today. Press Set Up Person recommendations appreciated. 6. Anemia. Likely secondary to malignancy and chronic disease. S/P 2 units PRBC transfusion. HB is 8.9 today. GI evaluation appreciated. No plan for egd nbow. 7. Essential hypertension. Continue Metoporolol 8. Hyperlipidemia. Continue lipitor. 9. RUE edema.venous Doppler is negative for DVT. 10. Metastatic breast cancer. Patient refused chemo and surgery post one cycle of chemo. Needs outpatient oncology follow up recommended. 11. Depression and Anxiety. Continue Paxil 5 mg at bedtime. Continue Xanax as needed. 12. GI/DVT prophylaxis. Protonix/heparin 13. Patient is DNR/DNI. Palliative care recommendations appreciated. upon discharge the patient will follow up with PMd Dr. rushing. 07/18/18 18:21
[2018-07-17] MEDS ORDERED: guaiFENesin DM 100 mg-10 mg/5 ml UD PO PRN (13:37)
[2018-07-17] MEDS: Cefepime 1gm in NS 100ml 1 GM/100 ML BAG IVPB SCH (17:24)
--- NOTE | 2018-07-17 18:47 | PN ---
DATE: 07/17/2018 SUBJECTIVE: The patient is currently seen talking on the phone, sitting up in bed. She states that she is comfortable. She requires another two days of antibiotic therapy for treatment of her septicemia. The patient is a DNR/DNI because of her metastatic breast cancer. MEDICATIONS: Medication list reviewed. The patient is currently on Brovana, DuoNeb, doxycycline, Ecotrin, subcu heparin, insulin, Lipitor on hold, Lopressor, Maxipime, MiraLax, Nicoderm CQ, Percocet, prednisone, Protonix, Pulmicort Respules, Xanax, and Zofran p.r.n. OBJECTIVE: INTAKE/OUTPUT: Intake is 820 and output is 2000. VITAL SIGNS: Blood pressure 129/70, temperature 98.1, respiratory rate of 20 with a pulse of 68. HEENT: Shows her to be normocephalic and atraumatic. Conjunctivae are pale. Sclerae are nonicteric. NECK: Supple. No neck vein distention. CHEST: Clear to auscultation and percussion with scattered rhonchi. No rales or wheezing. CARDIOVASCULAR: Shows a regular rate and rhythm. Positive MR/TR. No S3, no S4, no rub. ABDOMEN: Soft. Nondistended. Bowel sounds normal. No rebound, guarding, or masses. EXTREMITIES: Show no significant lower extremity edema. No cyanosis or clubbing. LABORATORY DATA AND IMAGING: CBC; white blood cell count 5.9, hemoglobin stable and improved at 8.9, platelet count is 265,000. Chemistry showed normal electrolytes. Her hyperkalemia had resolved. K was 5.7, it is now 4.3. BUN is 74, which is within her baseline range compared to previous admissions, but it is up from 47 on present admission. Creatinine is 2.1 down from a high of 2.6. Glucose is ranging from 283 to 351. Last hemoglobin A1c was 7.3%. Calcium is 7.7 with an albumin of 3.3, it corrects to 8.2/8.3 range. Microbiology; urine is positive for yeast. Blood cultures from admission are positive for coag-negative Staph, hence the patient is completing a course of antibiotic therapy. Repeat blood cultures are negative. Echocardiogram was done, which showed no evidence for vegetation. Abdominopelvic CT scan showed bilateral hydroureter without hydronephrosis and multiple parapelvic cysts. Prominent gastrohepatic ligament lymph node and postcaval lymph nodes. Chest CT scan was positive for metastatic disease with enlarged upper abdominal lymph nodes. She also had axillary adenopathy consistent with metastatic disease. ASSESSMENT: 1. Acute renal failure superimposed on chronic kidney disease stage III/IV. Her numbers appear to be within her baseline range looking back at labs over the last 12 months. She is slightly higher in her BUN than her admitting values. The patient does remain on steroid therapy. She is not receiving any diuretic therapy. 2. History of anemia likely secondary to her underlying malignancy. She is status post transfusion, two units of packed red blood cells. 3. Status post hyperkalemia. 4. Possible pneumonia versus chronic changes. 5. Septicemia with coag-negative Staphylococcus. She is completing a course of antibiotic therapy. 6. History of metastatic breast cancer despite mastectomy, despite chemotherapy. 7. History of severe chronic obstructive pulmonary disease. The patient is a habitual cigarette smoker and continues to smoke in the outpatient setting. PLAN: 1. Complete course of antibiotics. 2. Accept a degree of prerenal azotemia as the patient is on steroids. 3. Continue respiratory treatments. 4. Continue comfort care and supportive measures. 5. Continue present blood pressure medication for her hypertension, which is controlled. Jared Beatty MD
[2018-07-17] MEDS ORDERED: Vancomycin 1.5 GM in Sodium Chloride 0.9% 500 ML IVPB ONE (19:29)
--- NOTE | 2018-07-18 00:38 | PN ---
DATE: 07/17/2018 SUBJECTIVE: The patient is in bed, in no acute distress, nontoxic. PHYSICAL EXAMINATION: VITAL SIGNS: Temperature is 98, blood pressure is 130/60, respiratory rate of 18. HEENT: Unremarkable. NECK: Supple. LUNGS: Have decreased breath sounds. HEART: Normal S1, S2. ABDOMEN: Soft. LABORATORY DATA: Reviewed. The patient had an echo, which is reviewed. No vegetation is seen. ASSESSMENT AND PLAN: A 57-year-old female with breast cancer, chronic obstructive lung disease, anxiety, pleural effusion, kidney disease, admitted with hypoglycemia, severe sepsis, coagulase-negative Staphylococcus bacteremia secondary to Port-A-Cath probably, however transient bacteremia, first episode. Today is day #5 of 7 to 10 days of vancomycin. The patient's vancomycin is at adequate level as noted. We will give another dose of vancomycin for now and we will order vancomycin random levels in the morning. We will discontinue the doxycycline and we will give 1.5 g of vancomycin level antibiotic at this point and we will follow closely with you. Prasanth Malcolm MD
[2018-07-18] MEDS: Albuterol-Ipratrop 3 mg / 0.5 (3 ml) UD IH SCH ×4 (01:17→19:26)
--- NOTE | 2018-07-18 05:05 | PN ---
DATE: 07/17/2018 ENDOCRINOLOGY FOLLOWUP NOTE LOCATION: Room 269. SUBJECTIVE: This is a 57-year-old female with recent acute exacerbation of COPD, currently switched over from IV steroids to oral steroid therapy, on prednisone 20 mg once daily as noted. Her glycemic levels are fluctuating as noted overnight with glucose values ranging from 283 to 351 mg/dL. LABORATORY DATA: Her chemistries today showed a BUN of 74, sodium 140, potassium 4.3, chloride 108, CO2 of 25, glucose 288 and creatinine 2.1. PLAN OF MANAGEMENT: So at this time, we will continue the current basal and bolus insulin drug combination as it takes a few days for the insulin resistance to improve thereof. We will continue her Levemir given as 36 units subcu at bedtime daily as ordered. We will also continue the Humalog given as 14 units subcu t.i.d. before meals as ordered. We will obtain serial chemistries and supplement accordingly as needed. We will follow. Ernestina Hawkins MD
[2018-07-18] MEDS: Pantoprazole 40 mg EC Tab PO SCH (05:13)
[2018-07-18 06:10] LABS: HEMOGLOBIN 8.8 g/dL (12.0-16.0); MEAN CELL VOLUME 89.2 fl (80.0-105.0); MEAN CORPUSCULAR HGB CONC 31.4 g/dl (31.0-37.0); MEAN PLATELET VOLUME 10.3 fl (7.0-11.0); RBC 3.14 10^6/uL (3.5-6.1); RED CELL DISTRIBUTION WIDTH 15.8 % (11.5-14.5); WHITE BLOOD COUNT 7.3 10^3/uL (4.5-11.0)
[2018-07-18 06:31] VITALS: O2SAT 100
[2018-07-18 07:21] LABS: ALB/GLOB RATIO 1.1 (1.1-1.8); CALCIUM 7.3 mg/dL (8.4-10.5)
[2018-07-18] MEDS: Insulin Lispro (humaLOG) LOW Coverage SC SCH ×4 (08:49→21:54)
[2018-07-18] MEDS: Insulin Lispro 1 UNITS/0.01 ML SC SCH ×2 (08:54→12:30)
[2018-07-18] MEDS: Arformoterol 15 mcg/2 ml Inh Sol IH SCH ×2 (08:56→19:25)
[2018-07-18] MEDS: Budesonide 0.25 mg/2 ml Inhal Susp UD IH SCH ×2 (08:56→19:25)
--- NOTE | 2018-07-18 09:55 | CP.PCM.PN ---
Subjective - Date & Time of Evaluation Date of Evaluation: 07/18/18 Time of Evaluation: 09:52 - Subjective Subjective: PGY-3 for Rob Reed Pt was sitting by bedside, on 3LO2, breathing comfortably. No acute complaint Objective - Vital Signs/Intake and Output Vital Signs (last 24 hours): Temp Pulse Resp BP Pulse Ox 98.3 F 77 19 147/68 100 07/18/18 06:00 07/18/18 06:00 07/18/18 06:00 07/18/18 06:00 07/18/18 06:00 Intake and Output: 07/18/18 07/18/18 06:59 18:59 Intake Total 760 Output Total 1000 Balance -240 - Medications Medications: Current Medications Albuterol/Ipratropium (Duoneb 3 Mg/0.5 Mg (3 Ml) Ud) 3 ml IH Q2H PRN PRN Reason: Shortness of Breath Albuterol/Ipratropium (Duoneb 3 Mg/0.5 Mg (3 Ml) Ud) 3 ml IH [id number] REPLACED BY [facility] Last Admin: 07/18/18 08:56 Dose: 3 ml Alprazolam (Xanax) 0.5 mg PO QID PRN; Protocol PRN Reason: Anxiety Last Admin: 07/17/18 10:27 Dose: 0.5 mg Arformoterol Tartrate (Brovana) 15 mcg IH [id number] REPLACED BY [facility] Last Admin: 07/18/18 08:56 Dose: 15 mcg Aspirin (Ecotrin) 81 mg PO DAILY REPLACED BY [facility] Last Admin: 07/17/18 10:27 Dose: 81 mg Atorvastatin Calcium (Lipitor) 20 mg PO HS REPLACED BY [facility] Last Admin: 07/17/18 22:16 Dose: 20 mg Budesonide (Pulmicort Respules) 0.25 mg IH [id number] REPLACED BY [facility] Last Admin: 07/18/18 08:56 Dose: 0.25 mg Dextrose (Dextrose 50% Inj) 0 ml IV STAT PRN; Protocol PRN Reason: Hypoglycemia Protocol Guaifenesin/Dextromethorphan (Robitussin Dm) 5 ml PO Q4H PRN PRN Reason: Cough Last Admin: 07/17/18 17:22 Dose: 5 ml Heparin Sodium (Porcine) (Heparin) 5,000 units SC Q8 [facility]; Protocol Last Admin: 07/18/18 05:13 Dose: 5,000 units Dextrose (Dextrose 5% In Water 1000 Ml) 1,000 mls @ 0 mls/hr IV .Q0M PRN; Protocol PRN Reason: Hypoglycemia Protocol Insulin Detemir (Levemir) 36 unit SC HS REPLACED BY [facility] Last Admin: 07/17/18 22:15 Dose: 36 units Insulin Human Lispro (Humalog Low) 0 units SC ACHS REPLACED BY [facility]; Protocol Last Admin: 07/18/18 08:49 Dose: Not Given Insulin Human Lispro (Humalog) 14 units SC ACTID REPLACED BY [facility] Last Admin: 07/18/18 08:54 Dose: 14 units Magnesium Oxide (Mag-Ox) 400 mg PO BID REPLACED BY [facility] Stop: 07/18/18 18:01 Metoprolol Tartrate (Lopressor) 25 mg PO BID REPLACED BY [facility] Last Admin: 07/17/18 17:22 Dose: 25 mg Nicotine (Nicoderm Cq) 1 patch TD DAILY REPLACED BY [facility] Last Admin: 07/17/18 10:28 Dose: 1 patch Ondansetron HCl (Zofran Inj) 4 mg IVP Q6H PRN PRN Reason: Nausea/Vomiting Oxycodone/Acetaminophen (Percocet 5/325 Mg Tab) 1 tab PO Q12H PRN PRN Reason: Pain, severe (8-10) Stop: 07/19/18 11:13 Last Admin: 07/17/18 10:26 Dose: 1 tab Pantoprazole Sodium (Protonix Ec Tab) 40 mg PO 0600 REPLACED BY [facility] Last Admin: 07/18/18 05:13 Dose: 40 mg Paroxetine HCl (Paxil) 5 mg PO [facility] Polyethylene Glycol (Miralax) 17 gm PO DAILY REPLACED BY [facility] Last Admin: 07/17/18 10:28 Dose: 17 gm Prednisone (Prednisone Tab) 20 mg PO DAILY REPLACED BY [facility] - Labs Labs: 07/18/18 05:00 07/18/18 05:00 - Constitutional Appears: No Acute Distress - Head Exam Head Exam: ATRAUMATIC, NORMAL INSPECTION, NORMOCEPHALIC - Eye Exam Eye Exam: EOMI, Normal appearance, PERRL. absent: Scleral icterus Pupil Exam: NORMAL ACCOMODATION - ENT Exam ENT Exam: Mucous Membranes Moist - Neck Exam Additional comments: supple - Respiratory Exam Respiratory Exam: Clear to Ausculation Bilateral. absent: Rales, Rhonchi, W heezes - Cardiovascular Exam Cardiovascular Exam: REGULAR RHYTHM, +S1, +S2 - GI/Abdominal Exam GI & Abdominal Exam: Soft, Normal Bowel Sounds. absent: Tenderness - Extremities Exam Extremities Exam: absent: Calf Tenderness - Back Exam Back Exam: absent: CVA tenderness (L), CVA tenderness (R) - Neurological Exam Neurological Exam: Alert, Awake, Oriented x3 - Psychiatric Exam Psychiatric exam: Normal Affect, Normal Mood - Skin Skin Exam: Dry, Warm Assessment and Plan - Assessment and Plan (Free Text) Plan: Ms Randolph, 57F, active smoker 3 ppd x 40 years, chronic COPD on 3L o2 home, Recurrent R pleural effusion and hx breast ca, was brought in by EMS for AMS and hypoglycemia 40 in the field. She had decreased appetite recently. She has hx breast ca s/p mastectomy, chemo, recurrent R pleural effusion, R port-a-cath for several years. She was found to have severe sepsis with coag-neg staph bactermia, repeated culture negative. US R arm/subclavian vein had ruled out thrombus. TTE showed no vegetation. Today is day 6/7-10 days of IV vancomycin. She was severely anemic, s/p 2u pRBC. Hypoglycemia due to decreases appetite and sepsis - resolved Accelearated hyperglycemia due to steroid induced insulin resistance - Prednisone 20 daily A1C 7.3 TSH normal (Apr 2018) - Levemir decrease to 30 HS, standing lispro 10 actid, ISSS-low starting BG>300 - carb consist diet - As steroid tapers in the coming week, insulin requirement may change accordingly. Please follow up with primary care doctor to adjust doses to prevent hypoglycemia (Home regimen: 30 Levemir only) Meat Passer for smoking cessation s/r/d/w Dr Hawkins
[2018-07-18] MEDS: POLYETHYLENE GLYCOL 3350 17 GM/Dose PACKET PO SCH (10:04)
[2018-07-18] MEDS: Magnesium Oxide 400 mg Tab UD PO SCH ×2 (10:04→17:37)
--- NOTE | 2018-07-18 10:46 | CP.PCM.PN ---
<Rajinder Romano - Last Filed: 07/18/18 16:10> Subjective - Date & Time of Evaluation Date of Evaluation: 07/18/18 Time of Evaluation: 08:40 - Subjective Subjective: PGY6 GI Fellow Progress Note Patient seen and examined bedside this morning. The patient passed stool without issue and tolerated breakfast as well. No events overnight. 12 system ROS performed and negative except where stated Objective - Vital Signs/Intake and Output Vital Signs (last 24 hours): Temp Pulse Resp BP Pulse Ox 98.3 F 83 19 145/69 100 07/18/18 06:00 07/18/18 10:04 07/18/18 06:00 07/18/18 10:04 07/18/18 06:00 Intake and Output: 07/18/18 07/18/18 06:59 18:59 Intake Total 760 Output Total 1000 Balance -240 - Medications Medications: Current Medications Albuterol/Ipratropium (Duoneb 3 Mg/0.5 Mg (3 Ml) Ud) 3 ml IH Q2H PRN PRN Reason: Shortness of Breath Albuterol/Ipratropium (Duoneb 3 Mg/0.5 Mg (3 Ml) Ud) 3 ml IH [id number] [facility] Last Admin: 07/18/18 08:56 Dose: 3 ml Alprazolam (Xanax) 0.5 mg PO QID PRN; Protocol PRN Reason: Anxiety Last Admin: 07/18/18 10:09 Dose: 0.5 mg Arformoterol Tartrate (Brovana) 15 mcg IH [id number] [facility] Last Admin: 07/18/18 08:56 Dose: 15 mcg Aspirin (Ecotrin) 81 mg PO DAILY [facility] Last Admin: 07/18/18 10:04 Dose: 81 mg Atorvastatin Calcium (Lipitor) 20 mg PO HS [facility] Last Admin: 07/17/18 22:16 Dose: 20 mg Budesonide (Pulmicort Respules) 0.25 mg IH [id number] [facility] Last Admin: 07/18/18 08:56 Dose: 0.25 mg Dextrose (Dextrose 50% Inj) 0 ml IV STAT PRN; Protocol PRN Reason: Hypoglycemia Protocol Guaifenesin/Dextromethorphan (Robitussin Dm) 5 ml PO Q4H PRN PRN Reason: Cough Last Admin: 07/17/18 17:22 Dose: 5 ml Heparin Sodium (Porcine) (Heparin) 5,000 units SC Q8 [facility]; Protocol Last Admin: 07/18/18 05:13 Dose: 5,000 units Dextrose (Dextrose 5% In Water 1000 Ml) 1,000 mls @ 0 mls/hr IV .Q0M PRN; Protocol PRN Reason: Hypoglycemia Protocol Insulin Detemir (Levemir) 36 unit SC HS [facility] Last Admin: 07/17/18 22:15 Dose: 36 units Insulin Human Lispro (Humalog Low) 0 units SC ACHS [facility]; Protocol Last Admin: 07/18/18 08:49 Dose: Not Given Insulin Human Lispro (Humalog) 14 units SC ACTID [facility] Last Admin: 07/18/18 08:54 Dose: 14 units Magnesium Oxide (Mag-Ox) 400 mg PO BID [facility] Stop: 07/18/18 18:01 Last Admin: 07/18/18 10:04 Dose: 400 mg Metoprolol Tartrate (Lopressor) 25 mg PO BID [facility] Last Admin: 07/18/18 10:04 Dose: 25 mg Nicotine (Nicoderm Cq) 1 patch TD DAILY [facility] Last Admin: 07/18/18 10:05 Dose: 1 patch Ondansetron HCl (Zofran Inj) 4 mg IVP Q6H PRN PRN Reason: Nausea/Vomiting Oxycodone/Acetaminophen (Percocet 5/325 Mg Tab) 1 tab PO Q12H PRN PRN Reason: Pain, severe (8-10) Stop: 07/19/18 11:13 Last Admin: 07/17/18 10:26 Dose: 1 tab Pantoprazole Sodium (Protonix Ec Tab) 40 mg PO 0600 [facility] Last Admin: 07/18/18 05:13 Dose: 40 mg Paroxetine HCl (Paxil) 5 mg PO HS [facility] Polyethylene Glycol (Miralax) 17 gm PO DAILY [facility] Last Admin: 07/18/18 10:04 Dose: 17 gm Prednisone (Prednisone Tab) 20 mg PO DAILY [facility] Last Admin: 07/18/18 10:03 Dose: 20 mg - Labs Labs: 07/18/18 05:00 07/18/18 05:00 - Constitutional Appears: Non-toxic, No Acute Distress - Eye Exam Eye Exam: EOMI, PERRL - ENT Exam ENT Exam: Mucous Membranes Moist - Respiratory Exam Respiratory Exam: Clear to Ausculation Bilateral. absent: Rales, Rhonchi, Wheezes - Cardiovascular Exam Cardiovascular Exam: RRR, +S1, +S2 - GI/Abdominal Exam GI & Abdominal Exam: Soft, Normal Bowel Sounds. absent: Distended, Firm, Guarding, Rigid, Tenderness, Organomegaly - Extremities Exam Extremities Exam: Normal Inspection. absent: Pedal Edema - Neurological Exam Neurological Exam: Alert, Awake, Oriented x3 - Psychiatric Exam Psychiatric exam: Anxious, Normal Affect - Skin Skin Exam: Dry, Warm Assessment and Plan - Assessment and Plan (Free Text) Assessment: Patient is a 49yo female with PMHx significant for invasive ductal carcinoma of the left breast with prior chemotherapy, COPD, CKD, anxiety who was admitted for hypoglycemia, altered mentation and COPD exacerbation. -Chronic normocytic anemia -Left breast cancer, possibly spread to lymph nodes (no confirmation on record, LNs noted on imaging) -COPD -CKD -Anxiety Plan: -Anemia likely multifactorial in the setting of chronic illness (malignancy) and CKD -No planned endoscopic evaluation during this admission - encourage outpatient follow up once she has established care with a assistant hairstylist/oncologist -HGB unchanged - monitor -Supportive care -Continue PPI therapy -Diet as tolerated -No further recommendations at this time <Gerald Coker V - Last Filed: 07/19/18 20:20> Objective - Vital Signs/Intake and Output Vital Signs (last 24 hours): Temp Pulse Resp BP Pulse Ox 98.4 F 70 20 137/79 100 07/18/18 12:00 07/18/18 17:36 07/18/18 12:00 07/18/18 17:36 07/18/18 06:00 Intake and Output: 07/18/18 07/19/18 18:59 06:59 Intake Total 0 1800 Output Total 2200 Balance 0 -400 - Medications Medications: Current Medications Albuterol/Ipratropium (Duoneb 3 Mg/0.5 Mg (3 Ml) Ud) 3 ml IH Q2H PRN PRN Reason: Shortness of Breath Albuterol/Ipratropium (Duoneb 3 Mg/0.5 Mg (3 Ml) Ud) 3 ml IH [id number] [facility] Last Admin: 07/18/18 19:26 Dose: 3 ml Alprazolam (Xanax) 0.5 mg PO QID PRN; Protocol PRN Reason: Anxiety Last Admin: 07/18/18 14:53 Dose: 0.5 mg Arformoterol Tartrate (Brovana) 15 mcg IH [id number] [facility] Last Admin: 07/18/18 19:25 Dose: 15 mcg Aspirin (Ecotrin) 81 mg PO DAILY [facility] Last Admin: 07/18/18 10:04 Dose: 81 mg Atorvastatin Calcium (Lipitor) 20 mg PO HS [facility] Last Admin: 07/18/18 22:18 Dose: 20 mg Budesonide (Pulmicort Respules) 0.25 mg IH [id number] [facility] Last Admin: 07/18/18 19:25 Dose: 0.25 mg Dextrose (Dextrose 50% Inj) 0 ml IV STAT PRN; Protocol PRN Reason: Hypoglycemia Protocol Guaifenesin/Dextromethorphan (Robitussin Dm) 5 ml PO Q4H PRN PRN Reason: Cough Last Admin: 07/17/18 17:22 Dose: 5 ml Heparin Sodium (Porcine) (Heparin) 5,000 units SC Q8 [facility]; Protocol Last Admin: 07/18/18 22:18 Dose: 5,000 units Dextrose (Dextrose 5% In Water 1000 Ml) 1,000 mls @ 0 mls/hr IV .Q0M PRN; Protocol PRN Reason: Hypoglycemia Protocol Insulin Detemir (Levemir) 30 unit SC [facility] Last Admin: 07/18/18 22:18 Dose: 30 units Insulin Human Lispro (Humalog Low) 0 units SC ACHS [facility]; Protocol Last Admin: 07/18/18 21:54 Dose: Not Given Insulin Human Lispro (Humalog) 10 units SC ACTID [facility] Metoprolol Tartrate (Lopressor) 25 mg PO BID [facility] Last Admin: 07/18/18 17:36 Dose: 25 mg Nicotine (Nicoderm Cq) 1 patch TD DAILY [facility] Last Admin: 07/18/18 10:05 Dose: 1 patch Ondansetron HCl (Zofran Inj) 4 mg IVP Q6H PRN PRN Reason: Nausea/Vomiting Oxycodone/Acetaminophen (Percocet 5/325 Mg Tab) 1 tab PO Q12H PRN PRN Reason: Pain, severe (8-10) Stop: 07/19/18 11:13 Last Admin: 07/18/18 22:19 Dose: 1 tab Pantoprazole Sodium (Protonix Ec Tab) 40 mg PO 0600 [facility] Last Admin: 07/18/18 05:13 Dose: 40 mg Paroxetine HCl (Paxil) 5 mg PO HS [facility] Polyethylene Glycol (Miralax) 17 gm PO DAILY [facility] Last Admin: 07/18/18 10:04 Dose: 17 gm Prednisone (Prednisone Tab) 20 mg PO DAILY [facility] Last Admin: 07/18/18 10:03 Dose: 20 mg - Labs Labs: 07/18/18 05:00 07/18/18 05:00 Attending/Attestation - Attestation I have personally seen and examined this patient.: Yes I have fully participated in the care of the patient.: Yes I have reviewed all pertinent clinical information, including history, physical exam and plan: Yes Notes (Text): This patient was seen and evaluated here earlier. This is an addendum to the GI progress report dictated by the GI fellow. Patient has history of bleeding eso phageal ulcerations. On PPI. Anemia status post transfusion could stable. CT scan reviewed showed large amount of food in the stomach. Patient probably has gastroparesis. That could be contributory for this patient's esophagitis. The diet has been changed to mechanical soft diet. Continue long-term PPI. Close follow-up of the hemoglobin hematocrit. This patient has had advanced breast cancer. Patient has advanced to breast cancer being followed by Dr. Gleason 07/18/18 23:51 07/19/18 20:16
[2018-07-18] MEDS ORDERED: Insulin Lispro 1 UNITS/0.01 ML SC SCH ×2 (11:44→18:28)
[2018-07-18 12:56] VITALS: RESP 20; TEMP 98.4
--- NOTE | 2018-07-18 15:47 | CP.PCM.DIS ---
<SolomonEmma - Last Filed: 07/18/18 15:44> Provider - Provider Date of Admission: 07/12/18 04:54 Attending physician: Darius Rdz MD Primary care physician: Sloan Sosa MD Consults: 07/12/18 07:08 Physician Consult Routine Comment: Consulting Provider: Rey Santiago Consulting Physician: Rey Santiago Reason for Consult: Repiratory failure 07/12/18 07:09 Physiatry Consult Routine Comment: Consulting Provider: Ernestina Hawkins Consulting Physician: Ernestina Hawkins Reason for Consult: hypoglycemia Physician Consult Routine Comment: Consulting Provider: Chung Damon Consulting Physician: Chung Damon Reason for Consult: leukocytosis, r/o infection 07/12/18 07:10 Physician Consult Routine Comment: Consulting Provider: Jared Beatty Consulting Physician: Jared Beatty Reason for Consult: DAHLIA on CKD 07/12/18 09:50 Hematology Oncology Consult Routine Comment: Consulting Provider: Melanie Gleason Consulting Physician: Melanie Gleason Reason for Consult: RLL atelectasis, high risk for tumor 07/12/18 15:25 Social Work Referral Routine Comment: d/c plan Physician Instructions: Reason For Exam: assess 07/12/18 16:13 Case Management Referral Routine Comment: Physician Instructions: Reason For Exam: Reason for Referral: Discharge Planning Diabetic Education Referral Routine Comment: blood sugar at home was in 40's Physician Instructions: 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 Physician Instructions: Reason For Exam: assess Transition In Care/Readmission Reduction Routine Comment: copd Physician Instructions: Reason For Exam: assess 07/13/18 08:58 Palliative Care Consult Routine Comment: Consulting Provider: Camryn Mills Physician Instructions: Reason For Exam: severe COPD, current smoker, breast cancer 07/13/18 14:05 Consult [Physician Consult] Routine Comment: Consulting Provider: Gerald Coker V Consulting Physician: Gerald Coker V Reason for Consult: anemia 07/16/18 07:54 Change Control Manager [Case Management Referral] Routine Comment: Physician Instructions: Reason For Exam: Reason for Referral: Discharge Planning Time Spent in preparation of Discharge (in minutes): 45 Diagnosis - Discharge Diagnosis (1) Smoker Status: Chronic (2) Acute kidney injury Status: Resolved (3) Chronic kidney disease (CKD) Status: Chronic (4) Anemia Status: Resolved (5) Carbon dioxide narcosis Status: Resolved Priority: High (6) Hypoglycemia Status: Resolved (7) COPD (chronic obstructive pulmonary disease) Status: Chronic Priority: High (8) Diabetes Status: Chronic (9) Sepsis Status: Chronic Hospital Course - Lab Results Lab Results: Micro Results 07/13/18 21:20 Blood Blood Culture - Preliminary NO GROWTH AFTER 4 DAYS 07/13/18 21:00 Blood Blood Culture - Preliminary NO GROWTH AFTER 4 DAYS 07/14/18 21:15 Blood-Venous Blood Culture - Preliminary NO GROWTH AFTER 3 DAYS 07/14/18 20:45 Blood-Venous Blood Culture - Preliminary NO GROWTH AFTER 3 DAYS 07/12/18 08:50 Blood-Venous Blood Culture - Final Coagulase Neg Staphylococcus 07/12/18 08:50 Blood-Venous Gram Stain - Final 07/12/18 09:15 Blood-Venous S.aureus & Coag-Neg Staph PNA FISH - Final 07/12/18 09:15 Blood-Venous Blood Culture - Final Coagulase Neg Staphylococcus 07/12/18 09:15 Blood-Venous Gram Stain - Final 07/12/18 10:40 Urine,Clean Catch Urine Culture - Final Yeast Species Most Recent Lab Values WBC 7.3 10^3/uL (4.5-11.0) D 07/18/18 05:00 RBC 3.14 10^6/uL (3.5-6.1) L 07/18/18 05:00 Hgb 8.8 g/dL (12.0-16.0) L 07/18/18 05:00 Hct 28.0 % (36.0-48.0) L 07/18/18 05:00 MCV 89.2 fl (80.0-105.0) 07/18/18 05:00 MCH 28.0 pg (25.0-35.0) 07/18/18 05:00 MCHC 31.4 g/dl (31.0-37.0) 07/18/18 05:00 RDW 15.8 % (11.5-14.5) H 07/18/18 05:00 Plt Count 275 10^3/uL (120.0-450.0) 07/18/18 05:00 MPV 10.3 fl (7.0-11.0) 07/18/18 05:00 Neut % (Auto) 77.5 % (50.0-68.0) H 07/17/18 06:10 Lymph % (Auto) 10.9 % (22.0-35.0) L 07/17/18 06:10 [place] % (Auto) 11.4 % (1.0-6.0) H 07/17/18 06:10 Eos % (Auto) 0.2 % (1.5-5.0) L 07/17/18 06:10 Baso % (Auto) 0.0 % (0.0-3.0) 07/17/18 06:10 Lymph # (Auto) 0.6 (1.2-3.4) L 07/17/18 06:10 [place] # (Auto) 0.7 (0.1-0.6) H 07/17/18 06:10 Eos # (Auto) 0.0 (0.0-0.7) 07/17/18 06:10 Baso # (Auto) 0.00 K/mm3 (0.0-2.0) 07/17/18 06:10 Absolute Neuts (auto) 4.57 (1.4-6.5) 07/17/18 06:10 Neutrophils % (Manual) 85 % (50.0-70.0) H 07/12/18 03:42 Band Neutrophils % 5 % (0-2) H 07/12/18 03:42 Lymphocytes % (Manual) 5 % (22.0-35.0) L 07/12/18 03:42 Monocytes % (Manual) 2 % (1.0-6.0) 07/12/18 03:42 Eosinophils % (Manual) 3 % (0.0-3.0) 07/12/18 03:42 Toxic Granulation Slight 07/12/18 03:42 Platelet Evaluation Normal (NORMAL) 07/12/18 03:42 Retic Count 1.39 % (0.5-1.5) 07/12/18 09:15 pCO2 54 mm/Hg (35-45) H 07/12/18 10:10 pO2 62.0 mm/Hg (80-100) L 07/12/18 10:10 HCO3 23.1 mmol/L (21-28) 07/12/18 10:10 ABG pH 7.24 (7.35-7.45) L 07/12/18 10:10 ABG Total CO2 24.8 mmol.L (22-28) 07/12/18 10:10 ABG O2 Saturation 94.6 % (95-98) L 07/12/18 10:10 ABG O2 Content 10.6 ML/dl (15-23) L 07/12/18 10:10 ABG Base Excess -4.3 mmol/L (-2.0-3.0) L 07/12/18 10:10 ABG Hemoglobin 8.2 g/dL (11.7-17.4) L 07/12/18 10:10 ABG Carboxyhemoglobin 2.3 % (0.5-1.5) H 07/12/18 10:10 POC ABG HHb (Measured) 5.2 % (0-5) H 07/12/18 10:10 ABG Methemoglobin 1.1 % (0.0-3.0) 07/12/18 10:10 ABG O2 Capacity 11.2 mL/dl (16-24) L 07/12/18 10:10 Hgb O2 Saturation 91.4 % (95.0-98.0) L 07/12/18 10:10 FiO2 28.0 % 07/12/18 10:10 Crit Value Called To Md bergman 07/12/18 10:10 Crit Value Called By Rt 07/12/18 10:10 Blood Gas Notified Time 1020 07/12/18 10:10 Sodium 140 mmol/L (132-148) 07/18/18 05:00 Potassium 4.3 mmol/L (3.6-5.0) 07/18/18 05:00 Chloride 108 mmol/L (98-107) H 07/18/18 05:00 Carbon Dioxide 24 mmol/L (21-33) 07/18/18 05:00 Anion Gap 11 (10-20) 07/18/18 05:00 BUN 75 mg/dL (7-21) H 07/18/18 05:00 Creatinine 2.1 mg/dl (0.7-1.2) H 07/18/18 05:00 Est GFR ( Amer) 29 07/18/18 05:00 Est GFR (Non-Af Amer) 24 07/18/18 05:00 POC Glucose (mg/dL) 211 mg/dL (65-110) H 07/18/18 14:02 Random Glucose 282 mg/dL (70-110) H 07/18/18 05:00 Hemoglobin A1c 7.3 % (4.2-6.5) H 07/14/18 08:27 Calcium 7.3 mg/dL (8.4-10.5) L 07/18/18 05:00 Phosphorus 3.6 mg/dL (2.5-4.5) 07/18/18 05:00 Magnesium 1.4 mg/dL (1.7-2.2) L 07/18/18 05:00 Iron 23 ug/dL (45-180) L 07/12/18 09:15 TIBC 211 ug/dL (265-497) L 07/12/18 09:15 % Saturation 11 % (20-55) L 07/12/18 09:15 Ferritin 104.0 ng/mL 07/12/18 09:15 Total Bilirubin 0.1 mg/dL (0.2-1.3) L 07/18/18 05:00 AST 16 U/L (14-36) 07/18/18 05:00 ALT 12 U/L (7-56) 07/18/18 05:00 Alkaline Phosphatase 50 U/L (38-126) 07/18/18 05:00 Troponin I < 0.01 ng/mL D 07/12/18 03:42 Total Protein 5.6 g/dL (5.8-8.3) L 07/18/18 05:00 Albumin 3.0 g/dL (3.0-4.8) 07/18/18 05:00 Globulin 2.6 gm/dL 07/18/18 05:00 Albumin/Globulin Ratio 1.1 (1.1-1.8) 07/18/18 05:00 Carcinoembryonic Ag 23.2 ng/mL (0.0-3.0) H 07/15/18 07:15 CA 15-3 Antigen 28.1 U/mL (0-35) 07/15/18 07:15 CA 27-29 38 U/mL (<38) H 07/15/18 07:15 Procalcitonin 1.83 NG/ML (0.19-0.49) H 07/12/18 09:15 Urine Color Yellow (YELLOW) 07/12/18 03:50 Urine Appearance Clear (CLEAR) 07/12/18 03:50 Urine pH 6.0 (4.7-8.0) 07/12/18 03:50 Ur Specific [place] 1.020 (1.005-1.035) 07/12/18 03:50 Urine Protein 100 mg/dL (<30 mg/dL) H 07/12/18 03:50 Urine Glucose (UA) Negative mg/dL (NEGATIVE) 07/12/18 03:50 Urine Ketones Negative mg/dL (NEGATIVE) 07/12/18 03:50 Urine Blood Small (NEGATIVE) H 07/12/18 03:50 Urine Nitrate Negative (NEGATIVE) 07/12/18 03:50 Urine Bilirubin Negative (NEGATIVE) 07/12/18 03:50 Urine Urobilinogen 0.2 E.U./dL (<1 E.U./dL) 07/12/18 03:50 Ur Leukocyte Esterase Moderate [place]/uL (NEGATIVE) H 07/12/18 03:50 Urine RBC 10 - 15 /hpf (0-2) H 07/12/18 03:50 Urine WBC 25 - 30 /hpf (0-6) H 07/12/18 03:50 Ur Epithelial Cells 6 - 8 /hpf (0-5) H 07/12/18 03:50 Amorphous Sediment Few /hpf (NONE) 07/12/18 03:50 Urine Bacteria Many /hpf (NONE) 07/12/18 03:50 Urine Other Uyeast /hpf 07/12/18 03:50 Ur Random Creatinine 12 mg/dL 07/14/18 21:10 U Random Total Protein 1933 mg/g creat (21-161) H 07/14/18 21:10 Ur Random Sodium 124 meq/L 07/14/18 21:10 Stool Occult Blood Negative (NEGATIVE) 07/14/18 17:50 Random Vancomycin 28.3 ug/mL 07/18/18 05:00 Urine Opiates Screen Negative (NEGATIVE) 07/12/18 12:00 Urine Methadone Screen Negative (NEGATIVE) 07/12/18 12:00 Ur Barbiturates Screen Negative (NEGATIVE) 07/12/18 12:00 Ur Phencyclidine Scrn Negative (NEGATIVE) 07/12/18 12:00 Ur Amphetamines Screen Negative (NEGATIVE) 07/12/18 12:00 U Benzodiazepines Scrn Positive (NEGATIVE) H 07/12/18 12:00 U Oth Cocaine Metabols Negative (NEGATIVE) 07/12/18 12:00 U Cannabinoids Screen Negative (NEGATIVE) 07/12/18 12:00 Ur L.pneumophila Ag Negative (NEGATIVE) 07/14/18 21:10 S. pneumoniae Antigen Negative (NEGATIVE) 07/14/18 21:10 Blood Type B POSITIVE 07/13/18 10:20 Antibody Screen Negative 07/13/18 10:20 Crossmatch See Detail 07/13/18 10:20 BBK History Checked Patient has bt 07/13/18 10:20 - Hospital Course Hospital Course: Upon Admission: 57 year old female, whose past medical history includes breast cancer, severe COPD, asthma, anxiety, pleural effusions, and CKD, who presents to the ED brought in by EMS for hypoglycemia. Patient seems lethargic and is refusing to answer questions at this time. No family members at bedside. History obtained from previous medical charts. Patient's family reported patient was not responding at home, even after they threw water on her to wake her up. EMS was notified and patient was noted to be hypoglycemic with a blood glucose level of 40. Patient was given Glucagon in the field with improvement in mental status. Hospital Course: Pt was found to be in hypercapnic respiratory failure when in the ED. She was started on BiPAP while in the ED. Her mental status had improved after Bipap therapy. Pt was treated for COPD exacerbation throughout hospital stay. She was given IV steroids, nebulizer treatments and treated with antibiotics for HCAP an d bactermia, likely 2/2 R sided port-a-cath. Pts blood cultures grew coagulase negative staphylococcus. She was treated with vancomycin that was renally dosed and monitored with vancomycin troughs. Endocrinology was consulted for further recommendations regarding glucose control. Insulin regimen was adjusted for glucose control. Repeat CT chest reveals L breast calcifications compatible with metastases of neoplasm. Heme/onc was consulted for further recs. Pt was found to have DAHLIA on CKD, nephrology was consulted. Upon Discharge: Pt is feeling much better. Vital signs/labs stable. Wheezing has resolved. Vanc trough sufficient for treatment of bacteremia. Pt counselled on lifestyle modifications, smoking cessation, medication compliance, outpatient followup with specialists, insulin usage and to return to ED if she has new or returning symptoms. Insulin dosages were adjusted upon discharge. Discharge Exam - Head Exam Head Exam: ATRAUMATIC, NORMAL INSPECTION, NORMOCEPHALIC - Eye Exam Eye Exam: EOMI, Normal appearance - ENT Exam ENT Exam: Normal Exam Additional comments: R port- a cath in place. No erythema, purulence noted. Dressing in place - Neck Exam Neck exam: Normal Inspection - Respiratory Exam Respiratory Exam: NORMAL BREATHING PATTERN, UNREMARKABLE - Cardiovascular Exam Cardiovascular Exam: REGULAR RHYTHM, +S1, +S2 - GI/Abdominal Exam GI & Abdominal Exam: Normal Bowel Sounds, Unremarkable - Extremities Exam Extremities exam: normal inspection - Back Exam Back exam: NORMAL INSPECTION - Neurological Exam Neurological exam: Alert, Oriented x3 - Psychiatric Exam Psychiatric exam: Normal Affect, Normal Mood - Skin Skin Exam: Dry, Intact, Warm Discharge Plan - Discharge Medications Prescriptions: Doxycycline Hyclate 100 mg PO BID 2 Days #4 capsule Insulin Glargine,Hum.rec.anlog [Basaglar Kwikpen U-100] 36 unit SQ HS #1 insuln.pen Insulin Lispro [Admelog] 12 unit SQ ACTID #1 vial Methylprednisolone [Medrol Dose Pack (21 tabs)] 4 mg PO DAILY #21 mg - Follow Up Plan Condition: STABLE Disposition: HOME/ ROUTINE Instructions: Chronic Obstructive Pulmonary Disease (COPD), Including Emphysema, Low Blood Sugar, Adult (DC) Additional Instructions: Please follow up with your primary care doctor, Dr. 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 Gleason within 3-5 days of discharge. Please discuss your breast cancer diagnosis and treatment options, if available Please continue using your home oxygen Take the doxycycline for 2 more days and medrol dose pack as directed to the completion. Your insulin regimen has changed while you were in the hospital. Please take your insulin according to the following directions. Insulin Lispro (Humalog): Inject 12 units before meals, three times a day Insulin Glargine (Basaglar): Inject 36 units every night. Please continue the medications that you were taking at home. Please monitor your sugar levels closely. After you finish your prednisone tapering dose, please discuss adjusting your insulin requirements with your primary care doctor. Please discuss your insulin regimen with your primary care doctor Please stop smoking. Smoking with home oxygen poses an explosion risk along with health risks If your symptoms return, or you experience new symptoms, please go to the nearest emergency Referrals: Melanie Gleason MD [Staff Provider] - Sloan Sosa MD [Primary Care Provider] - Lisa Rucker MD [Staff Provider] - <Darius Rdz - Last Filed: 07/18/18 18:24> Provider - Provider Date of Admission: 07/12/18 04:54 Attending physician: Darius Rdz MD Primary care physician: Sloan Sosa MD Consults: 07/12/18 07:08 Physician Consult Routine Comment: Consulting Provider: Rey Santiago Consulting Physician: Rey Santiago Reason for Consult: Repiratory failure 07/12/18 07:09 Physiatry Consult Routine Comment: Consulting Provider: Ernestina Hawkins Consulting Physician: Ernestina Hawkins Reason for Consult: hypoglycemia Physician Consult Routine Comment: Consulting Provider: Chung Damon Consulting Physician: Chung Damon Reason for Consult: leukocytosis, r/o infection 07/12/18 07:10 Physician Consult Routine Comment: Consulting Provider: Jared Beatty Consulting Physician: Jared Beatty Reason for Consult: DAHLIA on CKD 07/12/18 09:50 Hematology Oncology Consult Routine Comment: Consulting Provider: Melanie Gleason Consulting Physician: Melanie Gleason Reason for Consult: RLL atelectasis, high risk for tumor 07/12/18 15:25 Social Work Referral Routine Comment: d/c plan Physician Instructions: Reason For Exam: assess 07/12/18 16:13 Case Management Referral Routine Comment: Physician Instructions: Reason For Exam: Reason for Referral: Discharge Planning Diabetic Education Referral Routine Comment: blood sugar at home was in 40's Physician Instructions: 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 Physician Instructions: Reason For Exam: assess Transition In Care/Readmission Reduction Routine Comment: copd Physician Instructions: Reason For Exam: assess 07/13/18 08:58 Palliative Care Consult Routine Comment: Consulting Provider: Camryn Mills Physician Instructions: Reason For Exam: severe COPD, current smoker, breast cancer 07/13/18 14:05 Consult [Physician Consult] Routine Comment: Consulting Provider: Gerald Coker V Consulting Physician: Gerald Coker V Reason for Consult: anemia 07/16/18 07:54 Change Control Manager [Case Management Referral] Routine Comment: Physician Instructions: Reason For Exam: Reason for Referral: Discharge Planning Hospital Course - Lab Results Lab Results: Micro Results 07/13/18 21:20 Blood Blood Culture - Preliminary NO GROWTH AFTER 4 DAYS 07/13/18 21:00 Blood Blood Culture - Preliminary NO GROWTH AFTER 4 DAYS 07/14/18 21:15 Blood-Venous Blood Culture - Preliminary NO GROWTH AFTER 3 DAYS 07/14/18 20:45 Blood-Venous Blood Culture - Preliminary NO GROWTH AFTER 3 DAYS 07/12/18 08:50 Blood-Venous Blood Culture - Final Coagulase Neg Staphylococcus 07/12/18 08:50 Blood-Venous Gram Stain - Final 07/12/18 09:15 Blood-Venous S.aureus & Coag-Neg Staph PNA FISH - Final 07/12/18 09:15 Blood-Venous Blood Culture - Final Coagulase Neg Staphylococcus 07/12/18 09:15 Blood-Venous Gram Stain - Final 07/12/18 10:40 Urine,Clean Catch Urine Culture - Final Yeast Species Most Recent Lab Values WBC 7.3 10^3/uL (4.5-11.0) D 07/18/18 05:00 RBC 3.14 10^6/uL (3.5-6.1) L 07/18/18 05:00 Hgb 8.8 g/dL (12.0-16.0) L 07/18/18 05:00 Hct 28.0 % (36.0-48.0) L 07/18/18 05:00 MCV 89.2 fl (80.0-105.0) 07/18/18 05:00 MCH 28.0 pg (25.0-35.0) 07/18/18 05:00 MCHC 31.4 g/dl (31.0-37.0) 07/18/18 05:00 RDW 15.8 % (11.5-14.5) H 07/18/18 05:00 Plt Count 275 10^3/uL (120.0-450.0) 07/18/18 05:00 MPV 10.3 fl (7.0-11.0) 07/18/18 05:00 Neut % (Auto) 77.5 % (50.0-68.0) H 07/17/18 06:10 Lymph % (Auto) 10.9 % (22.0-35.0) L 07/17/18 06:10 [place] % (Auto) 11.4 % (1.0-6.0) H 07/17/18 06:10 Eos % (Auto) 0.2 % (1.5-5.0) L 07/17/18 06:10 Baso % (Auto) 0.0 % (0.0-3.0) 07/17/18 06:10 Lymph # (Auto) 0.6 (1.2-3.4) L 07/17/18 06:10 [place] # (Auto) 0.7 (0.1-0.6) H 07/17/18 06:10 Eos # (Auto) 0.0 (0.0-0.7) 07/17/18 06:10 Baso # (Auto) 0.00 K/mm3 (0.0-2.0) 07/17/18 06:10 Absolute Neuts (auto) 4.57 (1.4-6.5) 07/17/18 06:10 Neutrophils % (Manual) 85 % (50.0-70.0) H 07/12/18 03:42 Band Neutrophils % 5 % (0-2) H 07/12/18 03:42 Lymphocytes % (Manual) 5 % (22.0-35.0) L 07/12/18 03:42 Monocytes % (Manual) 2 % (1.0-6.0) 07/12/18 03:42 Eosinophils % (Manual) 3 % (0.0-3.0) 07/12/18 03:42 Toxic Granulation Slight 07/12/18 03:42 Platelet Evaluation Normal (NORMAL) 07/12/18 03:42 Retic Count 1.39 % (0.5-1.5) 07/12/18 09:15 pCO2 54 mm/Hg (35-45) H 07/12/18 10:10 pO2 62.0 mm/Hg (80-100) L 07/12/18 10:10 HCO3 23.1 mmol/L (21-28) 07/12/18 10:10 ABG pH 7.24 (7.35-7.45) L 07/12/18 10:10 ABG Total CO2 24.8 mmol.L (22-28) 07/12/18 10:10 ABG O2 Saturation 94.6 % (95-98) L 07/12/18 10:10 ABG O2 Content 10.6 ML/dl (15-23) L 07/12/18 10:10 ABG Base Excess -4.3 mmol/L (-2.0-3.0) L 07/12/18 10:10 ABG Hemoglobin 8.2 g/dL (11.7-17.4) L 07/12/18 10:10 ABG Carboxyhemoglobin 2.3 % (0.5-1.5) H 07/12/18 10:10 POC ABG HHb (Measured) 5.2 % (0-5) H 07/12/18 10:10 ABG Methemoglobin 1.1 % (0.0-3.0) 07/12/18 10:10 ABG O2 Capacity 11.2 mL/dl (16-24) L 07/12/18 10:10 Hgb O2 Saturation 91.4 % (95.0-98.0) L 07/12/18 10:10 FiO2 28.0 % 07/12/18 10:10 Crit Value Called To Md bergman 07/12/18 10:10 Crit Value Called By Rt 07/12/18 10:10 Blood Gas Notified Time 1020 07/12/18 10:10 Sodium 140 mmol/L (132-148) 07/18/18 05:00 Potassium 4.3 mmol/L (3.6-5.0) 07/18/18 05:00 Chloride 108 mmol/L (98-107) H 07/18/18 05:00 Carbon Dioxide 24 mmol/L (21-33) 07/18/18 05:00 Anion Gap 11 (10-20) 07/18/18 05:00 BUN 75 mg/dL (7-21) H 07/18/18 05:00 Creatinine 2.1 mg/dl (0.7-1.2) H 07/18/18 05:00 Est GFR ( Amer) 29 07/18/18 05:00 Est GFR (Non-Af Amer) 24 07/18/18 05:00 POC Glucose (mg/dL) 290 mg/dL (65-110) H 07/18/18 16:56 Random Glucose 282 mg/dL (70-110) H 07/18/18 05:00 Hemoglobin A1c 7.3 % (4.2-6.5) H 07/14/18 08:27 Calcium 7.3 mg/dL (8.4-10.5) L 07/18/18 05:00 Phosphorus 3.6 mg/dL (2.5-4.5) 07/18/18 05:00 Magnesium 1.4 mg/dL (1.7-2.2) L 07/18/18 05:00 Iron 23 ug/dL (45-180) L 07/12/18 09:15 TIBC 211 ug/dL (265-497) L 07/12/18 09:15 % Saturation 11 % (20-55) L 07/12/18 09:15 Ferritin 104.0 ng/mL 07/12/18 09:15 Total Bilirubin 0.1 mg/dL (0.2-1.3) L 07/18/18 05:00 AST 16 U/L (14-36) 07/18/18 05:00 ALT 12 U/L (7-56) 07/18/18 05:00 Alkaline Phosphatase 50 U/L (38-126) 07/18/18 05:00 Troponin I < 0.01 ng/mL D 07/12/18 03:42 Total Protein 5.6 g/dL (5.8-8.3) L 07/18/18 05:00 Albumin 3.0 g/dL (3.0-4.8) 07/18/18 05:00 Globulin 2.6 gm/dL 07/18/18 05:00 Albumin/Globulin Ratio 1.1 (1.1-1.8) 07/18/18 05:00 Carcinoembryonic Ag 23.2 ng/mL (0.0-3.0) H 07/15/18 07:15 CA 15-3 Antigen 28.1 U/mL (0-35) 07/15/18 07:15 CA 27-29 38 U/mL (<38) H 07/15/18 07:15 Procalcitonin 1.83 NG/ML (0.19-0.49) H 07/12/18 09:15 Urine Color Yellow (YELLOW) 07/12/18 03:50 Urine Appearance Clear (CLEAR) 07/12/18 03:50 Urine pH 6.0 (4.7-8.0) 07/12/18 03:50 Ur Specific [place] 1.020 (1.005-1.035) 07/12/18 03:50 Urine Protein 100 mg/dL (<30 mg/dL) H 07/12/18 03:50 Urine Glucose (UA) Negative mg/dL (NEGATIVE) 07/12/18 03:50 Urine Ketones Negative mg/dL (NEGATIVE) 07/12/18 03:50 Urine Blood Small (NEGATIVE) H 07/12/18 03:50 Urine Nitrate Negative (NEGATIVE) 07/12/18 03:50 Urine Bilirubin Negative (NEGATIVE) 07/12/18 03:50 Urine Urobilinogen 0.2 E.U./dL (<1 E.U./dL) 07/12/18 03:50 Ur Leukocyte Esterase Moderate [place]/uL (NEGATIVE) H 07/12/18 03:50 Urine RBC 10 - 15 /hpf (0-2) H 07/12/18 03:50 Urine WBC 25 - 30 /hpf (0-6) H 07/12/18 03:50 Ur Epithelial Cells 6 - 8 /hpf (0-5) H 07/12/18 03:50 Amorphous Sediment Few /hpf (NONE) 07/12/18 03:50 Urine Bacteria Many /hpf (NONE) 07/12/18 03:50 Urine Other Uyeast /hpf 07/12/18 03:50 Ur Random Creatinine 12 mg/dL 07/14/18 21:10 U Random Total Protein 1933 mg/g creat (21-161) H 07/14/18 21:10 Ur Random Sodium 124 meq/L 07/14/18 21:10 Stool Occult Blood Negative (NEGATIVE) 07/14/18 17:50 Random Vancomycin 28.3 ug/mL 07/18/18 05:00 Urine Opiates Screen Negative (NEGATIVE) 07/12/18 12:00 Urine Methadone Screen Negative (NEGATIVE) 07/12/18 12:00 Ur Barbiturates Screen Negative (NEGATIVE) 07/12/18 12:00 Ur Phencyclidine Scrn Negative (NEGATIVE) 07/12/18 12:00 Ur Amphetamines Screen Negative (NEGATIVE) 07/12/18 12:00 U Benzodiazepines Scrn Positive (NEGATIVE) H 07/12/18 12:00 U Oth Cocaine Metabols Negative (NEGATIVE) 07/12/18 12:00 U Cannabinoids Screen Negative (NEGATIVE) 07/12/18 12:00 Ur L.pneumophila Ag Negative (NEGATIVE) 07/14/18 21:10 S. pneumoniae Antigen Negative (NEGATIVE) 07/14/18 21:10 Blood Type B POSITIVE 07/13/18 10:20 Antibody Screen Negative 07/13/18 10:20 Crossmatch See Detail 07/13/18 10:20 BBK History Checked Patient has bt 07/13/18 10:20 Attending/Attestation - Attestation I have personally seen and examined this patient.: Yes I have fully participated in the care of the patient.: Yes I have reviewed all pertinent clinical information, including history, physical exam and plan: Yes Notes (Text): 07/18/18 18:23 Attending note: Patient seen and examined with resident. sitting in bed. on nasal cannula. Denies any fever and chills. denies any chest pain, shortness of breath is improving. Denies any abdominal pain, nausea and vomiting. tolerating diet. ambulating fine. Patient is a 57 year old female with past medical history significant for chronic respiratory failure secondary severe COPD on home oxgen, asthma, tobacco abuse, pleural effusions, CKD, pneumonia, hypertension, hyperlipidemia, breast cancer, anemia, depression and anxiety, and recurrent UTIs that presented to the emergency room for hypoglycemia. 1. Acute COPD exacerbation. Improving slowly. on oxygen nasal cannula. Continue nebulizer treatments. Continue Pulmicort and Brovana. on po prednisone. Continue O2 via nasal cannula. On home oxygen. Chest CT showed heterogeneous left breast mass with calcifications with axillary adenopathy compatible with neoplasm with metastases, chronic right thoracic volume loss with subsegmental atelectasis of the right upper and lower lobes, partially enlarged upper abdominal lymph nodes compatible with metastases. 2. Active smoking: Patient counseled at length on tobacco cessation. continue Nicoderm patch. 3. Sepsis. resolving. Initial cultures grew coag negative staphylococcus. Repeat CS negative so far. afebrile. Urine culture positive for yeast. Leukocytosis resolved. Afebrile. Continue Doxycycline and Cefepime. we will give vancomycin 1 dose today. Echo is negative for vegetations. Case discussed with ID in detail . Patient can be discharged home with p.o. doxycycline. 4. Hypoglycemia. Resolved. Endocrinology team following, recommendations appreciated. Continue to monitor accuchecks. Now with elevated blood sugar. continue levemir and humolog. Adjust as needed. 5. Acute kidney injury on Chronic Kidney disease. Cr is 2.1 today. 6. Anemia. Likely secondary to malignancy and chronic disease. S/P 2 units PRBC transfusion. HB is 8.9 today. GI evaluation appreciated. No plan for egd nbow. 7. Essential hypertension. Continue Metoporolol 8. Hyperlipidemia. Continue lipitor. 9. RUE edema.venous Doppler is negative for DVT. 10. Metastatic breast cancer. Patient refused chemo and surgery post one cycle of chemo. Needs outpatient oncology follow up recommended. Contact information for Oncologist given. 11. Depression and Anxiety. Continue Paxil 5 mg at bedtime. Continue Xanax as needed. Patient is DNR/DNI. Palliative care recommendations appreciated. Patient will be discharged home today. Follow-up with PMD Dr. Sosa in 1 week. Patient needs close follow-up with pulmonary and oncology.
[2018-07-18 17:37] VITALS: BP 137/79; PULSE 70
[2018-07-18] MEDS ORDERED: Insulin Detemir 100 units/ml Vial (Levemir) SC SCH (18:28)
[2018-07-18] MEDS: Oxycodone/Acetaminophen 5/325 mg Tab PO PRN (22:19)
--- NOTE | 2018-07-18 23:15 | PN ---
DATE: 07/18/2018 ENDOCRINOLOGY FOLLOWUP NOTE LOCATION: In room 269. SUBJECTIVE: This is a 57-year-old female with recent uncontrolled type 2 insulin-requiring diabetes, now being followed closely for metabolic management. Her glycemic levels are fluctuating, but improved and the glucose levels overnight have ranged from 184-211 and 290 mg/dL. Her glucose levels actually dropped to 49 at lunchtime today as expected with the tapering down of her IV steroid therapy as given. She has now been switched over to oral steroids with prednisone given as 20 mg daily as ordered. So, at this time, we will taper down also her basal and bolus insulin dose regimen with Humalog to be given at 10 units t.i.d. before meals as ordered. We will also taper down her Levemir given as 30 units subcutaneously at bedtime daily to start tonight. We will titrate incrementally as indicated to optimize metabolic control. We will follow. Ernestina Hawkins MD
--- NOTE | 2018-07-19 00:06 | PN ---
DATE: 07/18/2018 This is [facility] visit on the telemetry floor. For Dr. Gleason. SUBJECTIVE: The patient is a 57-year-old female seen lying awake in bed with the patient to be discharged as per her primary doctor, Dr. Rdz later today. The patient is in no acute distress, has improved from her initial hospitalization for hypoglycemic episode with transfusion of 2 units of packed red blood cells over the phase of two days with significant improvement in her care with her strength returning, she reports. OBJECTIVE/PHYSICAL EXAMINATION: VITAL SIGNS: Temperature 98.4, pulse 70, respirations 20, blood pressure 137/79, and pulse ox of 100%. HEENT: Unremarkable. NECK: Supple. HEART: Regular rate. LUNGS: Clear. ABDOMEN: Obese, soft, and nontender. EXTREMITIES: Faint +1 edema. NEUROLOGIC: Awake and alert. LABORATORY DATA: The patient's labs were done. White blood cell count 7.3, hemoglobin 8.8, hematocrit 28, platelet count of 275,000 with a metabolic panel showing a BUN of 75, creatinine of 2.1, nonfasting glucose of 184 with an otherwise normal metabolic panel. ASSESSMENT: Hypoglycemia with sepsis, pneumonia, anemia of chronic disease, gastroesophageal reflux disease, history of gastrointestinal bleed, abnormal CT suspicious for neoplastic change, history of invasive ductal carcinoma in 2016, uncontrolled diabetes mellitus, chronic kidney disease, history of drug abuse, chronic obstructive pulmonary disease. PLAN: After conversation with Dr. Gleason is to continue present medical regimen with the patient to follow up in the office with Dr. Gleason for continued recommendations while with her what appears to be metastatic cancer to the axilla with a history of breast cancer after a positive CT scan done earlier in her hospital stay. This is a complex patient with a comprehensive medically necessary and appropriate visit carried out in excess of 20 minutes with the patient's questions answered to her satisfaction. Juan Jose Valles MD
--- NOTE | 2018-07-19 01:29 | PN ---
DATE: 07/18/2018 SUBJECTIVE: The patient is seen sitting in bed. She is awake. She is alert. She is comfortable. PHYSICAL EXAMINATION GENERAL: A middle-aged lady sitting in bed. VITAL SIGNS: Blood pressure 137/79, heart rate 70, respiratory rate 18, temperature 98.4. HEENT: Normocephalic, atraumatic, positive pallor. NECK: Supple, no JVD. LUNGS: Bilateral equal air entry, bilateral equal expansion, some rhonchi. CARDIOPULMONARY: S1, S2. Regular rate and rhythm. No murmur, no rub. ABDOMEN: Obese, distended, soft, nontender, bowel sounds present. EXTREMITIES: A 1+ pitting edema. LABORATORY DATA: WBC 7.3, hemoglobin 8.8, hematocrit 28, platelets are 175. Sodium 140, potassium 4.3, chloride 108, CO2 24, BUN 75, creatinine 2.1, glucose 282. ASSESSMENT 1. Acute kidney injury superimposed on chronic kidney disease, stage 3, slowly resolving acute kidney injury. 2. Severe anemia. 3. Chronic obstructive pulmonary disease with exacerbation. 4. Pneumonia. 5. History of breast cancer. 6. History of hyponatremia. PLAN 1. Continue current management. 2. Avoid nephrotoxins. 3. Push p.o. fluids. 4. Continue respiratory treatments. 5. Continue antibiotics. Lula Hurd MD
--- NOTE | 2018-07-19 02:15 | PN ---
DATE: 07/18/2018 SUBJECTIVE: The patient is in bed, in no acute distress, nontoxic. The patient is seen early this morning. PHYSICAL EXAMINATION: VITAL SIGNS: Temperature is 98, blood pressure is 155/60, respiratory rate 20, heart rate of 73. HEENT: Unremarkable. NECK: Supple. LUNGS: Decreased breath sounds. HEART: Normal S1 and S2. ABDOMEN: Soft. LABORATORY DATA: Reveal the patient's WBC is 7.3, hemoglobin of 8, BUN of 75, creatinine of 2.1. Urobilinogen antigen is negative. Strep antigen is negative. Microbiology is noted. Repeat culture is negative and toxicology from random vancomycin level this morning is 28. ASSESSMENT AND PLAN: This is a 57-year-old female with breast cancer, chronic obstructive lung disease, anxiety, pleural effusion, and kidney disease, admitted with hypoglycemia, severe sepsis, coag-negative Staphylococcus bacteremia secondary to Port-A-Cath probably. However transient bacteremia first episode, today is day # 6 of 7 days. The patient had adequate vancomycin levels as discussed with Dr. Rdz. Prasanth Malcolm MD
--- NOTE | 2018-07-19 23:55 | PN ---
DATE: 07/19/2018 ENDOCRINOLOGY PROGRESS NOTE LOCATION: Room 269. SUBJECTIVE: This is a 57-year-old female with recent uncontrolled type 2 insulin-requiring diabetes with acute exacerbation of COPD and placed on IV steroid therapy with transient hyperglycemic accelerations as noted thereof. She was placed on a high-dose combination of Levemir and Humalog insulin for inpatient diabetic management. Her IV steroids were tapered down to oral steroids of prednisone taken as 20 mg once daily as noted. OBJECTIVE: Her glucose levels today have ranged from 211 to 290 mg/dL. Her chemistry showed a BUN of 75, sodium 140, potassium 4.3, chloride 108, CO2 of 24, glucose 282 and creatinine 2.1. ASSESSMENT AND PLAN: So at this time, we will actually recommend that the patient resume her home insulin regimen as she is scheduled for discharge today as noted. She was currently on a home insulin combination of Lantus taken as 36 units at bedtime and Admelog at 12 units t.i.d. with meals. She will follow with her medical doctor for ongoing outpatient diabetic and medical followup. Ernestina Hawkins MD (Delete this signature block when dictator is a preceptor.) cc: MD Jose Manuel (Delete if not dictated.)
== END 2018-07-19 01:05 | disposition home or self-care (01) | DRG 584 ==
LOC: ED 02:54 → ERH 04:54 → 2RNO 11:16
PROVIDERS: ADMIT Internal Medicine; ATTEND Internal Medicine
PROC: 5A09357 Assistance with Respiratory Ventilation, Less than 24 Consecutive Hours, Continuous Positive Airway Pressure (ICD-10-PCS; principal; 2018-07-12)
PROC: 30233N1 Transfusion of Nonautologous Red Blood Cells into Peripheral Vein, Percutaneous Approach (ICD-10-PCS; 2018-07-13)
DX: A41.1 Sepsis due to other specified staphylococcus (principal); N17.9 Acute kidney failure, unspecified; J18.9 Pneumonia, unspecified organism; J96.22 Acute and chronic respiratory failure with hypercapnia; J44.1 Chronic obstructive pulmonary disease with (acute) exacerbation; E11.649 Type 2 diabetes mellitus with hypoglycemia without coma; E87.5 Hyperkalemia; J90 Pleural effusion, not elsewhere classified; J44.0 Chronic obstructive pulmonary disease with (acute) lower respiratory infection; E87.2 Acidosis; E11.21 Type 2 diabetes mellitus with diabetic nephropathy; E11.22 Type 2 diabetes mellitus with diabetic chronic kidney disease; N18.3 Chronic kidney disease, stage 3 (moderate); J98.11 Atelectasis; E11.43 Type 2 diabetes mellitus with diabetic autonomic (poly)neuropathy; C77.3 Secondary and unspecified malignant neoplasm of axilla and upper limb lymph nodes; C50.912 Malignant neoplasm of unspecified site of left female breast; R65.20 Severe sepsis without septic shock; I12.9 Hypertensive chronic kidney disease with stage 1 through stage 4 chronic kidney disease, or unspecified chronic kidney disease; F17.210 Nicotine dependence, cigarettes, uncomplicated; F32.9 Major depressive disorder, single episode, unspecified; F41.1 Generalized anxiety disorder; D63.0 Anemia in neoplastic disease; E78.5 Hyperlipidemia, unspecified; Z66 Do not resuscitate; Z79.4 Long term (current) use of insulin; Z79.82 Long term (current) use of aspirin; Z99.81 Dependence on supplemental oxygen; E11.65 Type 2 diabetes mellitus with hyperglycemia; S80.862A Insect bite (nonvenomous), left lower leg, initial encounter; S80.861A Insect bite (nonvenomous), right lower leg, initial encounter; S50.862A Insect bite (nonvenomous) of left forearm, initial encounter; S50.861A Insect bite (nonvenomous) of right forearm, initial encounter; S60.562A Insect bite (nonvenomous) of left hand, initial encounter; S60.561A Insect bite (nonvenomous) of right hand, initial encounter; W57.XXXA Bitten or stung by nonvenomous insect and other nonvenomous arthropods, initial encounter; K21.0 Gastro-esophageal reflux disease with esophagitis; K59.00 Constipation, unspecified; D63.8 Anemia in other chronic diseases classified elsewhere; K31.84 Gastroparesis; M79.89 Other specified soft tissue disorders; Z53.29 Procedure and treatment not carried out because of patient's decision for other reasons; E88.81 Metabolic syndrome and other insulin resistance; Z17.0 Estrogen receptor positive status [ER+]; Z87.19 Personal history of other diseases of the digestive system